=== PATIENT | female | born 1990 | race Caucasian/White ===

== ENCOUNTER 2024-07-10 15:19 | Emergency (ER) | payer BC, SELFPAY ==
[2024-07-10 15:22] VITALS: BP 138/78; PULSE 76; TEMP 36.6; O2SAT 100; BMI 26.5
[2024-07-10 16:13] LABS: Basophils Percent Auto 0.6 % (0.2-2.0); Eosinophils Absolute Auto 0.3 10^3/uL (0.0-0.7); Eosinophils Percent Auto 4.1 % (0.9-7.0); Hematocrit 37.6 % (36.0-48.0); Immature Granulocytes Abs Auto 0.01 10^3/uL (0.00-0.03); Immature Granulocytes Pct Auto 0.2 % (0.0-0.5); Lymphocytes Percent Auto 32.6 % (20.5-60.0); Mean Corpuscular HGB Conc 34.6 g/dL (29.9-35.2); Mean Corpuscular Hemoglobin 32.8 pg (26.7-34.0); Mean Corpuscular Volume 94.9 fL (81.0-99.0); Mean Platelet Volume 11.1 fL (9.5-13.5); Monocytes Absolute Auto 0.4 10^3/uL (0.3-0.8); Monocytes Percent Auto 7.1 % (1.7-12.0); Neutrophils Absolute Auto 3.4 10^3/uL (1.4-6.5); Neutrophils Percent Auto 55.4 % (43.0-75.0); Platelet Count 210 10^3/uL (150-450); Red Blood Count 3.96 10^6/uL (4.20-5.40); Red Cell Distribution Width 12.1 % (11.0-15.0); White Blood Count 6.2 10^3/uL (4.0-11.0)
[2024-07-10 16:23] LABS: Internal Control Within Normal Limits; Occult Blood Negative
[2024-07-10 16:34] LABS: INR 1.08; Partial Thromboplastin Time 35.5 sec (22.3-36.2); Prothrombin Time 11.4 sec (9.0-11.6)
[2024-07-10 16:39] LABS: Alanine Aminotransferase 9 U/L (14-59); Albumin Level 3.6 g/dL (3.4-5.0); Alkaline Phosphatase 35 U/L (46-116); Anion Gap 13.8; Aspartate Amino Transferase 6 U/L (15-37); BUN Creatinine Ratio 21.5; Bilirubin Total 0.3 mg/dL (0.2-1.0); Calcium 9.2 mg/dL (8.5-10.1); Carbon Dioxide 26.3 mmol/L (21.0-32.0); Chloride 104 mmol/L (98-107); Estimated GFR (African America >60 (>=60 mL/min/1.73m^2); Estimated GFR (Non-African Ame >60 (>=60 mL/min/1.73m^2); Globulin 3.7 g/dL; Glucose 92 mg/dL (74-106); Potassium 4.1 mmol/L (3.5-5.1); Sodium 140 mmol/L (136-145); Total Protein 7.3 g/dL (6.4-8.2)
--- NOTE | 2024-07-10 18:08 | ED.GENADUL1 ---
HPI HPI - General Adult General Chief complaint: GI Bleed Stated complaint: Blood In urine Time Seen by Provider: 07/10/24 15:22 Source: patient Mode of arrival: walk-in History of Present Illness HPI narrative: This 33-year-old female patient presents to the emergency department with chief complaint of bright red bleeding per rectum which is usually accompanied with some anal pain. This has been going on off and on for the last couple of weeks and she experienced it again today. She denies lightheadedness or dizziness. Occasionally she has had some lower abdominal cramping. She does not report night sweats or weight loss. Denies any possibility of . Related Data Home Medications ?Medication ?Instructions ?Recorded ?Confirmed omeprazole 20 mg capsule,delayed 20 mg PO Q8H 07/10/24 07/10/24 release Allergies Allergy/AdvReac Type Severity Reaction Status Date / Time No Known Drug Allergies Allergy Verified 07/10/24 15:22 Opioid HPI Opioid Management Most Recent Opioid Data: No Data to Display Review of Systems ROS Status of ROS 10 or more systems reviewed and unremarkable except as noted in history and below PFSH PFSH Social History Little interest or pleasure in doing things: not at all Feeling down, depressed, or hopeless: not at all Exam Narrative Exam Narrative: Awake and alert, nondistressed and with stable vital signs. She is not tachycardic or hypotensive. HEENT exam is normal to inspection and there is no conjunctival pallor. Neck is supple. Lung sounds are clear to auscultation bilaterally with good air entry. Heart has regular rate and rhythm. Abdomen is soft nontender. Bowel sounds are hypoactive and there is no organomegaly. Extremities warm and dry and she does not have unilateral leg swelling or calf tenderness. Rectal exam does not reveal any external lesions. Digital examination reveals some tenderness over the posterior aspect of the anal verge but no lumps of bumps were felt and a small amount of tinged mucus was obtained which is reported heme-negative. Constitutional Vital Signs, click to edit/add: Last Vital Signs Temp 97.8 F 07/10/24 15:22 Pulse 76 07/10/24 15:22 Resp 18 07/10/24 15:22 BP 138/78 07/10/24 15:22 Pulse Ox 100 07/10/24 15:22 O2 Del Method Room Air 07/10/24 15:22 Course Course Hospital Course: Presents with a history of hematochezia but his stool is heme-negative today and she is hemodynamically stable with a normal hemoglobin. She is referred to outpatient surgery follow-up for possible colonoscopy for further workup and is advised to return anytime for worsening symptoms. Vital Signs Vital signs: Vital Signs Temperature 97.8 F 07/10/24 15:22 Pulse Rate 76 07/10/24 15:22 Respiratory Rate 18 07/10/24 15:22 Blood Pressure 138/78 07/10/24 15:22 Pulse Oximetry 100 07/10/24 15:22 Oxygen Delivery Method Room Air 07/10/24 15:22 Temperature 97.8 F 07/10/24 15:22 Pulse Rate 76 07/10/24 15:22 Respiratory Rate 18 07/10/24 15:22 Blood Pressure 138/78 07/10/24 15:22 Pulse Oximetry 100 07/10/24 15:22 Oxygen Delivery Method Room Air 07/10/24 15:22 Medical Decision Making MDM Narrative Medical decision making narrative: Presents with a history of GI bleed but is hemodynamically stable at this time. Differential Diagnosis Differential Diagnosis: Colitis, diverticulitis, bleeding hemorrhoids Lab Data Lab results reviewed: Yes I reviewed the patient's lab results Labs: Lab Results 07/10/24 07/10/24 Range/Units 15:47 16:00 WBC 6.2 (4.0-11.0) 10^3/uL RBC 3.96 L (4.20-5.40) 10^6/uL Hgb 13.0 (12.0-16.0) g/dL Hct 37.6 (36.0-48.0) % MCV 94.9 (81.0-99.0) fL MCH 32.8 (26.7-34.0) pg MCHC 34.6 (29.9-35.2) g/dL RDW 12.1 (11.0-15.0) % Plt Count 210 (150-450) 10^3/uL MPV 11.1 (9.5-13.5) fL Neut % (Auto) 55.4 (43.0-75.0) % Lymph % (Auto) 32.6 (20.5-60.0) % [place] % (Auto) 7.1 (1.7-12.0) % Eos % (Auto) 4.1 (0.9-7.0) % Baso % (Auto) 0.6 (0.2-2.0) % Neut # (Auto) 3.4 (1.4-6.5) 10^3/uL Lymph # (Auto) 2.0 (1.2-3.8) 10^3/uL [place] # (Auto) 0.4 (0.3-0.8) 10^3/uL Eos # (Auto) 0.3 (0.0-0.7) 10^3/uL Baso # (Auto) 0.0 (0.0-0.1) 10^3/uL Abs Immat Gran (auto) 0.01 (0.00-0.03) 10^3/uL Imm/Tot Granulo (auto) 0.2 (0.0-0.5) % PT 11.4 (9.0-11.6) sec INR 1.08 APTT 35.5 (22.3-36.2) sec Sodium 140 (136-145) mmol/L Potassium 4.1 (3.5-5.1) mmol/L Chloride 104 (98-107) mmol/L Carbon Dioxide 26.3 (21.0-32.0) mmol/L Anion Gap 13.8 BUN 17.0 (7.0-18.0) mg/dL Creatinine 0.79 (0.55-1.02) mg/dL Est GFR ( Amer) >60 (>=60 mL/min/1.73m^2) Est GFR (Non-Af Amer) >60 (>=60 mL/min/1.73m^2) BUN/Creatinine Ratio 21.5 Glucose 92 (74-106) mg/dL Calcium 9.2 (8.5-10.1) mg/dL Total Bilirubin 0.3 (0.2-1.0) mg/dL AST 6 L (15-37) U/L ALT 9 L (14-59) U/L Alkaline Phosphatase 35 L (46-116) U/L Total Protein 7.3 (6.4-8.2) g/dL Albumin 3.6 (3.4-5.0) g/dL Globulin 3.7 g/dL Albumin/Globulin Ratio 1.0 Stool Occult Blood Negative Discharge Plan Discharge Chief Complaint: GI Bleed Clinical Impression: Hematochezia Patient Disposition: Home, Self-Care Time of Disposition Decision: 17:14 Condition: Good Mode of Transportation: Private Vehicle Prescriptions / Home Meds: No Action omeprazole 20 mg capsule,delayed release(DR/EC) 20 mg PO Q8H Print Language: Tamazight Instructions: Rectal Bleeding (ED) Additional Instructions: Follow-up with general surgeon for possible colonoscopy. Return for worsening symptoms. Referrals: Grover Garner DO [Physician] - 1 week Joseph Whaley MD [Physician] - 1 week Physician,Non-MD [place] [Primary Care Provider] - 1 week Discharge Date/Time: 07/10/24 17:38
--- NOTE | 2024-07-10 18:21 | ED.GENADUL1 ---
HPI HPI - General Adult General Chief complaint: GI Bleed Stated complaint: Blood In urine Time Seen by Provider: 07/10/24 15:22 Source: patient Mode of arrival: walk-in Related Data Home Medications ?Medication ?Instructions ?Recorded ?Confirmed omeprazole 20 mg capsule,delayed 20 mg PO Q8H 07/10/24 07/10/24 release Allergies Allergy/AdvReac Type Severity Reaction Status Date / Time No Known Drug Allergies Allergy Verified 07/10/24 15:22 Opioid HPI Opioid Management Most Recent Opioid Data: No Data to Display PFSH PFSH Social History Little interest or pleasure in doing things: not at all Feeling down, depressed, or hopeless: not at all Exam Constitutional Vital Signs, click to edit/add: Last Vital Signs Temp 97.8 F 07/10/24 15:22 Pulse 76 07/10/24 15:22 Resp 18 07/10/24 15:22 BP 138/78 07/10/24 15:22 Pulse Ox 100 07/10/24 15:22 O2 Del Method Room Air 07/10/24 15:22 Course Course Hospital Course: Presents with a history of hematochezia but his stool is heme-negative today and she is hemodynamically stable with a normal hemoglobin. She is referred to outpatient surgery follow-up for possible colonoscopy for further workup and is advised to return anytime for worsening symptoms. Vital Signs Vital signs: Vital Signs Temperature 97.8 F 07/10/24 15:22 Pulse Rate 76 07/10/24 15:22 Respiratory Rate 18 07/10/24 15:22 Blood Pressure 138/78 07/10/24 15:22 Pulse Oximetry 100 07/10/24 15:22 Oxygen Delivery Method Room Air 07/10/24 15:22 Temperature 97.8 F 07/10/24 15:22 Pulse Rate 76 07/10/24 15:22 Respiratory Rate 18 07/10/24 15:22 Blood Pressure 138/78 07/10/24 15:22 Pulse Oximetry 100 07/10/24 15:22 Oxygen Delivery Method Room Air 07/10/24 15:22 Medical Decision Making Lab Data Labs: Lab Results 07/10/24 07/10/24 Range/Units 15:47 16:00 WBC 6.2 (4.0-11.0) 10^3/uL RBC 3.96 L (4.20-5.40) 10^6/uL Hgb 13.0 (12.0-16.0) g/dL Hct 37.6 (36.0-48.0) % MCV 94.9 (81.0-99.0) fL MCH 32.8 (26.7-34.0) pg MCHC 34.6 (29.9-35.2) g/dL RDW 12.1 (11.0-15.0) % Plt Count 210 (150-450) 10^3/uL MPV 11.1 (9.5-13.5) fL Neut % (Auto) 55.4 (43.0-75.0) % Lymph % (Auto) 32.6 (20.5-60.0) % [place] % (Auto) 7.1 (1.7-12.0) % Eos % (Auto) 4.1 (0.9-7.0) % Baso % (Auto) 0.6 (0.2-2.0) % Neut # (Auto) 3.4 (1.4-6.5) 10^3/uL Lymph # (Auto) 2.0 (1.2-3.8) 10^3/uL [place] # (Auto) 0.4 (0.3-0.8) 10^3/uL Eos # (Auto) 0.3 (0.0-0.7) 10^3/uL Baso # (Auto) 0.0 (0.0-0.1) 10^3/uL Abs Immat Gran (auto) 0.01 (0.00-0.03) 10^3/uL Imm/Tot Granulo (auto) 0.2 (0.0-0.5) % PT 11.4 (9.0-11.6) sec INR 1.08 APTT 35.5 (22.3-36.2) sec Sodium 140 (136-145) mmol/L Potassium 4.1 (3.5-5.1) mmol/L Chloride 104 (98-107) mmol/L Carbon Dioxide 26.3 (21.0-32.0) mmol/L Anion Gap 13.8 BUN 17.0 (7.0-18.0) mg/dL Creatinine 0.79 (0.55-1.02) mg/dL Est GFR ( Amer) >60 (>=60 mL/min/1.73m^2) Est GFR (Non-Af Amer) >60 (>=60 mL/min/1.73m^2) BUN/Creatinine Ratio 21.5 Glucose 92 (74-106) mg/dL Calcium 9.2 (8.5-10.1) mg/dL Total Bilirubin 0.3 (0.2-1.0) mg/dL AST 6 L (15-37) U/L ALT 9 L (14-59) U/L Alkaline Phosphatase 35 L (46-116) U/L Total Protein 7.3 (6.4-8.2) g/dL Albumin 3.6 (3.4-5.0) g/dL Globulin 3.7 g/dL Albumin/Globulin Ratio 1.0 Stool Occult Blood Negative Discharge Plan Discharge Chief Complaint: GI Bleed Clinical Impression: Hematochezia Patient Disposition: Home, Self-Care Time of Disposition Decision: 17:14 Condition: Good Mode of Transportation: Private Vehicle Prescriptions / Home Meds: No Action omeprazole 20 mg capsule,delayed release(DR/EC) 20 mg PO Q8H Print Language: [place] Instructions: Rectal Bleeding (ED) Additional Instructions: Follow-up with general surgeon for possible colonoscopy. Return for worsening symptoms. Referrals: Grover Garner DO [Physician] - 1 week Joseph Whaley MD [Physician] - 1 week PhysicianRosangela-MD Cortez [Primary Care Provider] - 1 week Discharge Date/Time: 07/10/24 17:38
== END 2024-07-10 17:38 | disposition home or self-care (01) ==
PROVIDERS: Emergency Provider Emergency Medicine
DX: K92.1 Melena (principal); R10.30 Lower abdominal pain, unspecified
CPT/HCPCS: 36415; 80053; 84703; 85025; 85610; 85730; 99285; G0328

== ENCOUNTER 2024-10-19 15:36 | Outpatient (OUT) | payer BC, SELFPAY ==
[2024-10-19 16:14] LABS: Basophils Percent Auto 0.4 % (0.2-2.0); Eosinophils Absolute Auto 0.1 10^3/uL (0.0-0.7); Eosinophils Percent Auto 1.2 % (0.9-7.0); Hematocrit 33.7 % (36.0-48.0); Hemoglobin 11.9 g/dL (12.0-16.0); Immature Granulocytes Abs Auto 0.02 10^3/uL (0.00-0.03); Immature Granulocytes Pct Auto 0.2 % (0.0-0.5); Lymphocytes Absolute Auto 2.2 10^3/uL (1.2-3.8); Lymphocytes Percent Auto 27.2 % (20.5-60.0); Mean Corpuscular HGB Conc 35.3 g/dL (29.9-35.2); Mean Corpuscular Hemoglobin 33.5 pg (26.7-34.0); Mean Corpuscular Volume 94.9 fL (81.0-99.0); Mean Platelet Volume 11.2 fL (9.5-13.5); Monocytes Absolute Auto 0.4 10^3/uL (0.3-0.8); Monocytes Percent Auto 4.9 % (1.7-12.0); Neutrophils Absolute Auto 5.4 10^3/uL (1.4-6.5); Neutrophils Percent Auto 66.1 % (43.0-75.0); Platelet Count 169 10^3/uL (150-450); Red Blood Count 3.55 10^6/uL (4.20-5.40); Red Cell Distribution Width 12.4 % (11.0-15.0); White Blood Count 8.2 10^3/uL (4.0-11.0)
[2024-10-19 16:24] LABS: BOX Test Reference Lab UNITY; BOX Test Sent Out UNITY
[2024-10-19 16:31] LABS: Estimated Average Glucose 100 mg/dL; Glycohemoglobin A1C 5.1 % (4.5-6.2)
[2024-10-19 16:33] LABS: Amphetamine Screen Urine NEGATIVE (NEGATIVE); Barbiturates Screen Urine NEGATIVE (NEGATIVE); Benzodiazepines Screen Urine NEGATIVE (NEGATIVE); Buprenorphine Screen Urine NEGATIVE (NEGATIVE); Cannabinoid Screen Urine NEGATIVE (NEGATIVE); Cocaine Screen Urine NEGATIVE (NEGATIVE); Methadone Screen Urine NEGATIVE (NEGATIVE); Methamphetamines Screen Urine NEGATIVE (NEGATIVE); Opiate Screen Urine NEGATIVE (NEGATIVE); Oxycodone Screen Urine NEGATIVE (NEGATIVE); Phencyclidine Screen Urine NEGATIVE (NEGATIVE); Tricyclic Antidepressant Urine NEGATIVE (NEGATIVE)
[2024-10-21 08:10] LABS: HBsAg Screen Negative (Negative)
[2024-10-21 09:08] LABS: HCV Ab Non Reactive (Non Reactive)
[2024-10-21 11:07] LABS: Rapid Plasma Reagin, Quant Non Reactive titer (NonRea<1:1)
[2024-10-21 12:07] LABS: HIV Ab/p24 Ag Screen Non Reactive (Non Reactive)
== END 2024-10-19 15:37 | disposition home or self-care (01) ==
LOC: LAB 15:38
PROVIDERS: Visit Provider Obstetrics & Gynecology
DX: Z34.01 Encounter for supervision of normal first pregnancy, first trimester (principal); Z36.0 Encounter for antenatal screening for chromosomal anomalies; N92.6 Irregular menstruation, unspecified
CPT/HCPCS: 36415; 80307; 83036; 85025; 86592; 86762; 86803; 86850; 86900; 86901; 87086; 87340; 87389

== ENCOUNTER 2024-12-10 12:18 | Outpatient (REF) | payer BC, SELFPAY ==
[2024-12-12 15:08] LABS: Age Gdln ACOG Testing Note (.); HPV Aptima Negative (Negative); IGP, Aptima HPV, rfx 16/18,45 Note (.)
== END 2024-12-10 12:19 | disposition home or self-care (01) ==
LOC: LAB 12:18
PROVIDERS: Visit Provider Physician Assistant
DX: Z01.419 Encounter for gynecological examination (general) (routine) without abnormal findings (principal)
CPT/HCPCS: 87624; 88175

== ENCOUNTER 2024-12-31 15:15 | Outpatient (OUT) | payer BC, SELFPAY ==
--- OUTSIDE RECORDS SUMMARY | 2024-12-31 15:50 | XMS_ITS | CCD ---
Author Organization [facility] Care Team Providers Care Air Export Operations Agent Name Role Phone Unavailable Primary Care Provider UnavailDasha Kern MD Primary Care Provider MD Dasha Lujan Primary Care Provider BRETT Breaux Attending Provider Reena Breaux Admitting Unavailable Reena Breaux Attending Unavailable Tai Sunir C Primary Care Unavailable Reena Breaux Admitting Unavailable Reena Breaux Attending Unavailable Lujan Sunir C Primary Care Unavailable Dasha Lujan MD Primary Care Provider Dasha Lujan MD Primary Care Provider BERENICE ZEPEDA Attending Unavailable LUJAN, SUNIR C Primary Care Unavailable LUJAN, SUNIR C Primary Care Unavailable BERENICE ZEPEDA Attending Unavailable BERENICE ZEPEDA Attending Unavailable LUJAN, SUNIR C Primary Care Unavailable BERENICE ZEPEDA Attending Unavailable LUJAN, SUNIR C Primary Care Unavailable LUJAN, SUNIR C Primary Care Unavailable Unallocated , Noms Provider Primary Care [facility] Edu Alvarez NP Unavailable SINA GARNER Attending Unavailable SINA GARNER Referring Unavailable EDU ALVAREZ Attending Unavailable ROSCOE DIAZ Attending Unavailable ROSY QUIROZ Attending Unavailable Medications Current Medications Medication Drug Class(es) Dates Sig (Normalized) Sig (Original) bisacodyl 5 mg delayed release oral tablet (2 sources) Stimulant Laxative Start: 07-25-2024 End: 07-25-2024 take 1 tablet by mouth once bisacodyl (Dulcolax) 5 MG EC tablet Indications: Rectal bleeding Take 1 tablet (5 mg) by mouth 1 time for 1 dose Do not crush, chew, or split. Take as detailed on clinic hand out for colonoscopy prep 4 tablet 07/25/2024 07/25/2024 Active omeprazole 20 mg delayed release oral capsule (19 sources) Proton Pump Inhibitor Start: 04-16-2022 Omeprazole Magnesium (ACID MARKETING COMMUNICATION MANAGER, OMEPRAZOLE,) 20 mg cpDR 04/16/2022 Active take 1 tablet by mouth before me altime omeprazole OTC (PriLOSEC OTC) 20 MG EC tablet Take 20 mg by mouth in the morning. Take before meals. Do not crush, chew, or split.. Active ondansetron 4 mg disintegrating oral tablet (5 sources) Serotonin-3 Receptor Antagonist Start: 10-18-2024 End: 11-17-2024 take 1 tablet by mouth every six hours for nausea ondansetron ODT (Zofran-ODT) 4 MG disintegrating tablet Indications: Nausea and vomiting in Take 1 tablet (4 mg) by mouth every 6 (six) hours if needed for nausea or vomiting 30 tablet 2 10/18/2024 11/17/2024 Active phentermine hydrochloride 37.5 mg oral tablet (3 sources) Sympathomimetic Amine Anorectic Start: 06-29-2024 End: 07-29-2024 take 1 tablet by mouth once daily Phentermine HCl 37.5 mg tablet Indications: Encounter for weight management , Overweight Take 1 tablet by mouth once daily for 30 days. BMI 29.58kg/m2 30 tablet 06/29/2024 07/29/2024 Active Start: 09-23-2023 End: 10-23-2023 take 1 tablet by mouth once daily Phentermine HCl 37.5 mg tablet Indications: Encounter for weight management , Overweight (BMI 25.0-29.9) Take 1 tablet by mouth once daily for 30 days. BMI 29.76 30 tablet 0 09/23/2023 10/23/2023 Active Start: 07-21-2023 End: 08-20-2023 take 30-30.9 tablets by mouth once daily Phentermine HCl 37.5 mg tablet Indications: Encounter for weight management , Class 1 obesity due to excess calories with body mass index (BMI) of 30.0 to 30.9 in adult, unspecified whether serious comorbidity present Take 1 tablet by mouth once daily for 30 days. BMI 30.81kg/m2 30 tablet 0 07/21/2023 08/20/2023 Active Comment on above: Take 1 tablet by lucy th once daily for 30 days. BMI 30.81kg/m2 Take 1 tablet by lucy th once daily for 30 days. BMI 29.76 polyethylene glycol 3350 45357 mg powder for oral solution (2 sources) Osmotic Laxative Start: End: 4 take 17 g by mouth once polyethylene glycol, PEG, 3350 (Glycolax) 17 GM/SCOOP powder Indications: Colonoscopy Take 238 g by mouth 1 (one) time for 1 dose Take as detailed from clinic hand out for colonoscopy prep 238 g 07/25/2024 07/25/2024 Active Vit-Fe Fumarate-FA ( 19) 29-1 MG chewable tablet (8 sources) Start: 5 Vit-Fe Fumarate-FA ( 19) 29-1 MG chewable tablet Indications: , unspecified gestational age Chew 1 each Daily 30 tablet 11 10/23/2024 Active valACYclovir 1000 mg oral tablet (2 sources) Herpesvirus Nucleoside Analog DNA Polymerase Inhibitor, Herpes Simplex Virus Nucleoside Analog DNA Polymerase Inhibitor, Herpes Zoster Virus Nucleoside Analog DNA Polymerase Inhibitor Start: End: 4 take 1 tablet by mouth twice daily valACYclovir (VALTREX) 1 gram tablet Take 1 tablet by mouth two times a day for 8 days. 4 tablet 3 03/07/2024 03/15/2024 Active Start: 06-29-2023 End: 07-01-2023 valACYclovir (VALTREX) 1 gra m Take 1 tablet by mouth two times a day for 2 days. for 7 days 4 tablet 1 06/29/2023 07/01/2023 Active Comment on above: Take 1 tablet by lucy th two times a day for 2 days. for 7 days Completed/Discontinued Medications Medication Drug Class(es) Dates Sig (Normalized) Sig (Original) azithromycin 250 mg oral tablet (3 sources) Macrolide Antimicrobial Start: 08-02-2024 End: 10-18-2024 azithromycin (Zithromax) 250 MG tablet Indications: Acute cough , Chest congestion , Bronchitis Take 1 tablet (250 mg) by mouth Daily Take 2 tabs on day 1 and 1 tab on days 2-5 then stop 6 tablet 08/02/2024 10/18/2024 Discontinued (Other) multivitamin () 27-0.8 MG tablet (3 sources) Start: 10-17-2023 End: 07-25-2024 take 1 tablet by mouth once daily multivitamin () 27-0.8 MG tablet Indications: Encounter for supervision of normal first in first trimester Take 1 tablet by mouth Daily 30 tablet 11 10/17/2023 07/25/2024 Discontinued (Therapy completed) Start: 10-17-2023 End: 10-16-2024 take 1 tablet by mouth once daily multivitamin () 27-0.8 MG tablet Indications: Encounter for supervision of normal first in first trimester Take 1 tablet by mouth Daily 30 tablet 11 10/17/2023 10/16/2024 Active Problems Active Problems Problem Classification Problem Date Documented Da te Episodic/Chronic Chronic obstructive pulmonary disease and bronchiectasis (2 sources) Bronchitis; Translations: [Bronchitis, not specified as acute or chronic] 08-02-2024 Episodic Diabetes mellitus without complication (2 sources) Hyperglycemia; Translations: [Hyperglycemia, unspecified] Episodic Fluid and electrolyte disorders (1 source) Hyperkalemia; Translations: [Hyperkalemia] Episodic Gastrointestinal hemorrhage (2 sources) Rectal hemorrhage; Translations: [Hemorrhage of anus and rectum] 07-25-2024 Episodic Immunizations and screening for infectious disease (8 sources) Patient encounter status; Translations: [Encounter for immunization] 07-21-2023 Episodic Menstrual disorders (1 source) Missed period; Translations: [Irregular menstruation, unspecified] 10-18-2024 Chronic Other circulatory disease (2 sources) Pulmonary congestion ; Translations: [Other specified symptoms and signs involving the circulatory and respiratory systems] 08-02-2024 Episodic Other complications of (1 source) Vomiting of , unspecified; Translations: [Unspecified vomiting of , unspecified as to episode of care or not applicable] 10-18-2024 Episodic Other liver diseases (1 source) Steatosis of liver; Translations: [Fatty (change of) liver, not elsewhere classified] Chronic Other lower respiratory disease (2 sources) Cough; Translations: [Acute cough] 08-02-2024 Episodic Other nutritional; endocrine; and metabolic disorders (1 source) Body mass index 30+ - obesity; Translations: [Obesity, unspecified] Chronic Other nutritional; endocrine; and metabolic disorders (1 source) Obesity caused by energy imbalance; Translations: [Other obesity due to excess calories] 07-21-2023 Chronic Other nutritional; endocrine; and metabolic disorders (1 source) Body mass index 25-29 - overweight; Translations: [Overweight] 09-23-2023 Episodic Other nutritional; endocrine; and metabolic disorders (1 source) Overweight; Translations: [Overweight] 06-29-2024 Episodic Other and delivery including normal (4 sources) ; Translations: [Encounter for supervision of normal , unspecified, unspecified trimester] 10-18-2024 Episodic Other screening for suspected conditions (not mental disorders or infectious disease) (2 sources) Alpha-fetoprotein blood test status; Translations: [Encounter for screening for raised alphafetoprotein level] 12-10-2024 Episodic Residual codes; unclassified (1 source) Edema, unspecified; Translations: [Edema, unspecified] Onset: Episodic Residual codes; unclassified (2 sources) Gestation period, 12 weeks; Translations: [12 weeks gestation of ] 11-08-2024 Episodic Residual codes; unclassified (2 sources) Gestation period, 17 weeks; Translations: [17 weeks gestation of ] 12-10-2024 Episodic Unclassified (8 sources) OB Reminders Onset: 5 10-19-2024 Past or Other Problems Problem Classification Problem Date Documented Da te Episodic/Chronic Administrative/social admission (1 source) Persons encountering health services in other specified circumstances; Translations: [Encounter for weight management] Onset: 09-23-2023 Episodic Other gastrointestinal disorders (1 source) Bariatric surgery status; Translations: [Bariatric surgery status] Onset: 06-10-2022 Episodic Other nutritional; endocrine; and metabolic disorders (1 source) Overweight; Translations: [Overweight (BMI 25.0-29.9)] Onset: 09-23-2023 Episodic Results Test Name Value Interpretation Reference Range Facility IGP,APTIMA HPV,AGE GDLNon AGE GDLN ACOG TESTING Note . [facility] Comment on above: TESTS RESULT FLAG U NITS REF RANGE LAB Clinician Provided Cytology Information Source.............[facility] Other.............. No. of containers..01 ThinPrep Vial Age Kavithao WINTER Enedina... 3065 01 FLAG LEGEND: L-Low Normal,H-High Normal,LL-Alert Low,HH-Alert High <-Panic Low,>-Panic High,A-Abnormal,AA-Critical Abnormal Performed at: 01 =G [address] [place] [address] Rossy Odonnell MD, HPV APTIMA Negative Negative [facility] Comment on above: This nucleic acid am plification test detects fourteen high- risk HPV types (16,18,31,33,35,39,45,51,52,56,58,59,66,68) without differentiation. Performed at: =[address] [id number] Embedded Systems Software Engineer: Rossy Odonnell MD, Phone: [phone] Performed at: [address] [id number] Embedded Systems Software Engineer: Rossy Odonnell MD, Phone: [phone] IGP, APTIMA HPV, RFX 16/18,45 Note . [facility] Comment on above: TESTS RESULT FLAG UN ITS REF RANGE LAB DIAGNOSIS: 02 NEGATIVE FOR INTRAEPITHELIAL LESION OR MALIGNANCY. Specimen adequacy: 02 Satisfactory for evaluation. No endocervical component is identified. An endocervical component is not commonly seen in the patient. Performed by: 02 Cadence Lucero Machine Farmworker ([facility]) . 02 Note: Note 02 The Pap smear is a screening test designed to aid in the detection of premalignant and malignant conditions of the uterine cervix. It is not a diagnostic procedure and should not be used as the sole means of detecting cervical cancer. Both false-positive and false-negative reports do occur. Test Methodology: Note 02 This liquid based ThinPrep(R) pap test was screened with the use of an image guided system. HPV Genotype Reflex Note 02 Criteria not met, HPV Genotype not performed. FLAG LEGEND: L-Low Normal,H-High Normal,LL-Alert Low,HH-Alert High <-Panic Low,>-Panic High,A-Abnormal,AA-Critical Abnormal Performed at: [address] [id number] Rossy Odonnell MD, SPATULA-ALONE ENDOCERVIX [facility] RECURRENT VAGINITIS (HTRX)on 12-11-2024 ATOPOBIUM VAGINAE 0 [facility] ATOPOBIUM VAGINAE Not detected [facility] BVAB 2,3 (BACTERIAL VAGINOSIS ASSOCIATED BACTERIA 2, 3); MOBILUNCUS SPP 0 [facility] BVAB 2,3 (BACTERIAL VAGINOSIS ASSOCIATED BACTERIA 2, 3); MOBILUNCUS SPP Not detected [facility] HAMILTON ALBICANS, PARAPSILOSIS, TROPICALIS 0 [facility] HAMILTON ALBICANS, PARAPSILOSIS, TROPICALIS Not detected [facility] HAMILTON GLABRATA 0 [facility] HAMILTON GLABRATA Not detected [facility] HAMILTON KRUSEI 0 [facility] HAMILTON KRUSEI Not detected [facility] CHLAMYDIA TRACHOMATIS 0 [facility] CHLAMYDIA TRACHOMATIS Not detected N [facility] GARDNERELLA VAGINALIS 0 [facility] GARDNERELLA VAGINALIS Not detected N [facility] MEGASPHAERA (TYPES 1, 2) 0 [facility] MEGASPHAERA (TYPES 1, 2) Not detected [facility] MYCOPLASMA GENITALIUM 0 [facility] MYCOPLASMA GENITALIUM Not detected N [facility] NEISSERIA GONORRHOEAE 0 [facility] NEISSERIA GONORRHOEAE Not detected N [facility] TRICHOMONAS VAGINALIS 0 [facility] TRICHOMONAS VAGINALIS Not detected N [facility] Urinalysis macro (dipstick) panel (U)on 12-10-2024 Bilirubin, UA Negative Negative - 4(70) +++ mg/dL [facility] Blood, UA Negative Negative - 50 Iraj/mcL [facility] Clarity, UA Clear [facility] Color, UA Yellow [facility] Glucose, UA Negative Negative - 1999(110) ++++ mg/dL [facility] Interpretation and review of laboratory results Normal [facility] Ketones, UA Negative Negative - 160(16) ++++ mg/dL [facility] Leukocytes, UA Trace Negative - 500+++ Mari/mcL [facility] Nitrite, UA Negative Negative - Positive [facility] pH, UA 6 5 - 9 [facility] Protein, UA Negative Negative - 1999(20) ++++ mg/dL [facility] Spec Grav, UA 1.01 1 - 1.03 [facility] Urobilinogen, UA 0.2 0.2 - 12 mg/dL [facility] Urinalysis macro (dipstick) panel (U)on 11-08-2024 Bilirubin, UA Negative Negative - 4(70) +++ mg/dL [facility] Blood, UA Negative Negative - 50 Iraj/mcL [facility] Clarity, UA Clear [facility] Color, UA Yellow [facility] Glucose, UA Negative Negative - 1999(110) ++++ mg/dL [facility] Interpretation and review of laboratory results Normal [facility] Ketones, UA Negative Negative - 160(16) ++++ mg/dL [facility] Leukocytes, UA Negative Negative - 500+++ Mari/mcL [facility] Nitrite, UA Negative Negative - Positive [facility] pH, UA 6 5 - 9 [facility] Protein, UA Negative Negative - 2000(20) ++++ mg/dL [facility] Spec Grav, UA 1.015 1 - 1.03 [facility] Urobilinogen, UA 0.2 0.2 - 12 mg/dL [facility] ALL CBC WITH AUTO DIFFon BASOPHILS ABSOLUTE AUTO 0 N [facility] Basophils/100 WBC (Bld) 0.4 % 0.2 - 2.0 % [facility] Eosinophils/100 WBC (Bld) 1.2 % 0.9 - 7.0 % [facility] Erythrocyte distribution width (RBC) [Ratio] 12.4 % 11.0 - 15.0 % [facility] Hematocrit (Bld) [Volume fraction] 33.7 % Low 36.0 - 48.0 % [facility] Hemoglobin (Bld) [Mass/Vol] 11.9 g/dL Low 12.0 - 16.0 g/dL [facility] IMMATURE GRANULOCYTES ABS AUTO 0.02 [facility] Immature granulocytes/100 WBC (Bld) 0.2 % 0.0 - 0.5 % [facility] Interpretation and review of laboratory results Abnormal [facility] LYMPHOCYTES ABSOLUTE AUTO 2.2 [facility] Lymphocytes/100 WBC (Bld) 27.2 % 20.5 - 60.0 % [facility] MCH (RBC) [Entitic mass] 33.5 pg 26. 7 - 34.0 pg [facility] MCHC (RBC) [Mass/Vol] 35.3 g/dL High 29.9 - 35.2 g/dL [facility] MCV (RBC) [Entitic vol] 94.9 fL 81.0 - 99.0 fL [facility] MONOCYTES ABSOLUTE AUTO 0.4 N [facility] Monocytes/100 WBC (Bld) 4.9 % 1.7 - 12.0 % [facility] NEUTROPHILS ABSOLUTE AUTO 5.4 [facility] Neutrophils/100 WBC (Bld) 66.1 % 43.0 - 75.0 % [facility] Platelet mean volume (Bld) [Entitic vol] 11.2 fL 9.5 - 13.5 fL [facility] TBH EO # 0.1 [facility] PLT 169 [facility] RBC 3.55 Low [facility] WBC 8.2 [facility] HCG ( test) Ql (U)o n 10-18-2024 Interpretation and review of laboratory results Abnormal [facility] Preg Test, Ur Positive Negative [facility] US OB TRANSVAGINALon 025 US OB TRANSVAGINAL EXAM: US OB TRANSVAGINAL HISTORY: Dating. COMPARISON: None available. TECHNIQUE: Two-dimensional transabdominal grayscale ultrasound imaging of the pelvis was performed. Color Doppler evaluation of the ovaries was also performed. FINDINGS: The uterus demonstrates a normal homogeneous echotexture. The cervix measures 4.2 cm and the cervical os is closed. The right ovary is not visualized due to overlying bowel gas. The left ovary measures 2.8 x 1.5 x 2.4 cm and demonstrates a normal echotexture. There is normal color Doppler flow. No fluid is present within the cul-de-sac. There is a single, live intrauterine gestation identified with a heart rate of 175 beats per minute and a crown-rump length measurement of 3.1 cm, correlating to a gestational age of 10 weeks 0 days (+/- 6 days). There is a small subchorionic hemorrhage visualized. A yolk sac is visualized. IMPRESSION: 1. Single, live intrauterine gestation 9 weeks, 4 days by LMP. Today's ultrasound measurements correlate with a gestational age of 10 weeks 0 days (+/- 6 days). VALENTIN by today's ultrasound is 05/16/2025. 2. Normal color Doppler evaluation of the left ovary, the right ovary was not visualized. Electronically Signed:Electronical ly signed by BRITTANY FERREIRA II, MD, PHD at 20-Oct-2024 07:21:51 AM [facility] Normal Not Available Comment on above: Order Comment: US OB TRANSVAGINAL No LMP recorded. Urinalysis macro (dipstick) panel (U)on 10-18-2024 Bilirubin, UA Negative Negative - 4(70) +++ mg/dL [facility] Blood, UA Negative Negative - 50 Iraj/mcL [facility] Clarity, UA Clear [facility] Color, UA Yellow [facility] Glucose, UA Negative Negative - 2000(110) ++++ mg/dL [facility] Interpretation and review of laboratory results Normal [facility] Ketones, UA Negative Negative - 160(16) ++++ mg/dL [facility] Leukocytes, UA Negative Negative - 500+++ Mari/mcL [facility] Nitrite, UA Negative Negative - Positive [facility] pH, UA 6 5 - 9 [facility] Protein, UA Negative Negative - 2000(20) ++++ mg/dL [facility] Spec Grav, UA 1.01 1 - 1.03 [facility] Urobilinogen, UA 1.0 0.2 - 12 mg/dL [facility] CNOVon 06-29-2024 CNOV Office Visit (INMAVN) ---- CARYL ZAMARRIPA ([id number]) 1990 F Date Time Provider Department 06/29/24 12:40 PM [facility] visit today, we recorded the following information about you: Pulse Blood pressure Weight 65/minute 101/68 75.8 kg Berenice Zepeda APRN.[facility] 06/29/2024 1:25 PM Signed Caryl Zamarripa is a 33 year old female here today for follow-up regarding weight management. She would like to get back on phentermine Has tolerated well in the past Denies chest pain/pressure, palpitations, constipation Working on healthy lifestyle New job is less stressful but more sedentary Exercise: treadmill 4 days per week, some strength training 1-2 days per week Diet: Focus on more protein, lower carbs Last 10 Encounter Wt Readings: Date: Wt: 06/29/2024 75.8 kg (167 lb) 09/23/2023 76.2 kg (168 lb) 08/23/2023 77.6 kg (171 lb) 07/21/2023 80.1 kg (176 lb 8 oz) 07/06/2022 81.6 kg (180 lb) 01/15/2022 104.3 kg (230 lb) Body mass index is 29.58 kg/m?. PAST MEDICAL HISTORY Diagnosis Date GERD (gastroesophageal reflux disease) Prediabetes REVIEW OF SYSTEMS GENERAL: No weight loss, malaise or fevers RESPIRATORY: Negative for cough, hemoptysis, wheezing, COPD, dyspnea or shortness of breath CARDIOVASCULAR: Negative for chest pain, leg swelling, hypertension, CHF or palpitations PHYSICAL EXAMINATION: BP 101/68 (BP Site: Left Arm, BP Position: Sitting, BP Cuff Size: Large Adult) Pulse 65 Wt 75.8 kg (167 lb) LMP 08/08/2023 (Approximate) BMI 29.58 kg/m? General appearance: Well appearing, alert, in no acute distress, well-hydrated, well nourished. Lungs: Lungs clear to auscultation. No wheezing, rhonchi, rales. Heart: RRR without murmur, gallop, or rubs. No ectopy ASSESSMENT/PLAN: 1. Encounter for weight management - ICD9: V65.49, ICD10: Z76.89 (primary diagnosis) 2. Overweight - ICD9: 278.02, ICD10: E66.3 - Weight trending down - Continue working on healthy lifestyle - Denies chance of . Start phentermine. RTC in one month. CPE within the next 3 months. - PHENTERMINE 37.5 MG TABLET Berenice Zepeda APRN.[facility] Allergies As of Date: 06/29/2024 (No Known Allergies) Date Reviewed: 06/29/2024 Reviewed by: Goldie Peter MA - Fully Assessed Reason for Visit: Follow Up [171] Primary Visit Diagnosis:Encounter for weight management [Z76.89] Other Visit Diagnosis:Overweigh t [E66.3] Order(s):Phentermin e HCl 37.5 mg tabletTake 1 tablet by mouth once daily for 30 days. BMI 29.58kg/m2Disp: 30 tabletRfl: 0 Prescriptions as of 06/29/2024 - Phentermine HCl 37.5 mg tablet Take 1 tablet by mouth once daily for 30 days. BMI 29.58kg/m2 - Omeprazole Magnesium (ACID MARKETING COMMUNICATION MANAGER, OMEPRAZOLE,) 20 mg cpDR Problem List As Of Date: 06/29/2024 (None) Prescriptions ordered this encounter Disp Refills Start End PHENTERMINE 37.5 MG TABLET 30 t* 0 06/29/2024 07/29/2024 Route: ORAL Sig: Take 1 tablet by mouth once daily for 30 days. BMI 29.58kg/m2 Encounter Status:Closed by BERENICE ZEPEDA on 06/29/24 [facility] CNOVon 08-23-2023 CNOV Office Visit (INMAVN) ---- CARYL ZAMARRIPA ([id number]) 1990 F Date Time Provider Department 08/23/23 4:00 PM [facility] During your visit today, we recorded the following information about you: Pulse Blood pressure Weight Last Period 54/minute 121/77 77.6 kg 08/08/23 Berenice Zepeda, FIELD ARTILLERY OPERATIONS SPECIALIST.[facility] 08/25/2023 12:23 PM Signed Caryl Obrienkins is a 32 year old female here today for weight management. She started on phentermine one month(s) ago. Tolerating well without AE. Going to the gym for exercise and working to maintain a healthy diet. Last 6 Encounter Wt Readings: Date: Wt: 08/23/2023 77.6 kg (171 lb) 07/21/2023 80.1 kg (176 lb 8 oz) 07/06/2022 81.6 kg (180 lb) 01/15/2022 104.3 kg (230 lb) Past medical, family, social history reviewed and updated Medications - prescribed and OTC verified and updated. Allergies verified and updated REVIEW OF SYSTEMS GENERAL: Intentional weight loss. No fatigue or fever. RESPIRATORY: Negative for cough, hemoptysis, wheezing, COPD, dyspnea or shortness of breath CARDIOVASCULAR: Negative for chest pain, leg swelling, hypertension, CHF or palpitations PHYSICAL EXAMINATION: BP 121/77 Pulse (!) 54 Wt 77.6 kg (171 lb) LMP 08/08/2023 (Approximate) BMI 29.85 kg/m? General appearance: Well appearing, alert, in no acute distress, well-hydrated, well nourished. Lungs: Lungs clear to auscultation. No wheezing, rhonchi, rales. Heart: RRR without murmur, gallop, or rubs. No ectopy ASSESSMENT/PLAN: 1. Overweight (BMI 25.0-29.9) - ICD9: 278.02, ICD10: E66.3 (primary diagnosis) 2. Encounter for weight management - ICD9: V65.49, ICD10: Z76.89 - Weight decreasing. Continue behavioral and pharmacologic intervention. - PHENTERMINE 37.5 MG TABLET Berenice Zepeda, BRETT.STONER OUT Allergies As of Date: 08/23/2023 (No Known Allergies) Date Reviewed: 08/23/2023 Reviewed by: Renata Bagley MA - Fully Assessed Reason for Visit: F/U 1 month [1175] Primary Visit Diagnosis:Overweigh t (BMI 25.0-29.9) [E66.3] Other Visit Diagnosis:Encounter for weight management [Z76.89] Order(s):Phentermin e HCl 37.5 mg tabletTake 1 tablet by mouth once daily for 30 days. BMI 29.85kg/m2Disp: 30 tabletRfl: 0 valACYclovir (VALTREX) 1 gram tabletTake 1 tablet by mouth two times a day for 2 days.Disp: 4 tabletRfl: 3 Prescriptions as of 08/25/2023 - Phentermine HCl 37.5 mg tablet Take 1 tablet by mouth once daily for 30 days. BMI 29.85kg/m2 - valACYclovir (VALTREX) 1 gram tablet Take 1 tablet by mouth two times a day for 2 days. - Omeprazole Magnesium (ACID MARKETING COMMUNICATION MANAGER, OMEPRAZOLE,) 20 mg cpDR Problem List As Of Date: 08/23/2023 (None) Prescriptions ordered this encounter Disp Refills Start End PHENTERMINE 37.5 MG TABLET 30 t* 0 08/23/2023 09/22/2023 Route: ORAL Sig: Take 1 tablet by mouth once daily for 30 days. BMI 29.85kg/m2 VALACYCLOVIR 1 GRAM TABLET 4 ta* 3 08/23/2023 08/25/2023 Route: ORAL Sig: Take 1 tablet by mouth two times a day for 2 days. Medications Discontinued During This Encounter Prescriptions - valACYclovir (VALTREX) 1 gram (Discontinued) Take 1 tablet by mouth two times a day for 2 days. for 7 days - Phentermine HCl 37.5 mg tablet (Discontinued) Take 1 tablet by mouth once daily for 30 days. BMI 30.81kg/m2 Encounter Status:Closed by BERENICE ZEPEDA on 08/25/23 Normal [facility] CBC W Auto Differential pane l (Bld)on 07-26-2023 Basophils (Bld) [#/Vol] 0.03 10*3/uL Normal <0.11 [facility] Comment on above: Order Comment: Speci men Type: BLOOD SPECIMEN Ordering Facility: [facility] Address: [address] [place] [address] Performed By: #### 5 7021-8 #### [facility] CLIA [id number] [address] [place] [address] 37151 Basophils/100 WBC (Bld) 0.6 % Normal [facility] Comment on above: Order Comment: Speci men Type: BLOOD SPECIMEN Ordering Facility: [facility] Address: [address] [place] [address] Performed By: #### 5 7021-8 #### [facility] CLIA [id number] [address] [place] [address] 17398 Differential cell count method Nom (Bld) Auto Normal [facility] Comment on above: Order Comment: Speci men Type: BLOOD SPECIMEN Ordering Facility: [facility] Address: [address] [place] [address] Performed By: #### 5 7021-8 #### [facility] CLIA [id number] [address] [place] [address] 21657 Eosinophils (Bld) [#/Vol] 0.13 10*3/uL Normal <0.46 [facility] Comment on above: Order Comment: Speci men Type: BLOOD SPECIMEN Ordering Facility: [facility] Address: [address] [place] [address] Performed By: #### 5 7021-8 #### [facility] CLIA [id number] [address] [place] [address] 94538 Eosinophils/100 WBC (Bld) 2.6 % Normal [facility] Comment on above: Order Comment: Speci men Type: BLOOD SPECIMEN Ordering Facility: [facility] Address: [address] [place] [address] Performed By: #### 5 7021-8 #### [facility] CLIA [id number] [address] [place] [address] 27209 Erythrocyte distribution width (RBC) [Ratio] 12.1 % Normal 11.5-15.0 [facility] Comment on above: Order Comment: Speci men Type: BLOOD SPECIMEN Ordering Facility: [facility] Address: [address] [place] [address] Performed By: #### 5 7021-8 #### [facility] CLIA [id number] [address] [place] [address] 38466 Hematocrit (Bld) [Volume fraction] 37.0 % Normal 36.0-46.0 [facility] Comment on above: Order Comment: Speci men Type: BLOOD SPECIMEN Ordering Facility: [facility] Address: [address] [place] [address] Performed By: #### 5 7021-8 #### [facility] CLIA [id number] [address] [place] [address] 33442 Hemoglobin (Bld) [Mass/Vol] 12.6 g/dL Normal 11.5-15.5 [facility] Comment on above: Order Comment: Speci men Type: BLOOD SPECIMEN Ordering Facility: [facility] Address: [address] [place] [address] Performed By: #### 5 7021-8 #### [facility] CLIA [id number] [address] [place] [address] 10598 Immature granulocytes (Bld) [#/Vol] 10*3/uL Normal <0.10 [facility] Comment on above: Order Comment: Speci men Type: BLOOD SPECIMEN Ordering Facility: [facility] Address: [address] [place] [address] Performed By: #### 5 7021-8 #### [facility] CLIA [id number] [address] [place] [address] Immature granulocytes/100 WBC (Bld) 0.2 % Normal [facility] Comment on above: Order Comment: Speci men Type: BLOOD SPECIMEN Ordering Facility: [facility] Address: [address] [place] [address] Performed By: #### 5 7021-8 #### [facility] CLIA [id number] [address] [place] [address] 57570 Lymphocytes (Bld) [#/Vol] 1.57 10*3/uL Normal 1.00-4.00 [facility] Comment on above: Order Comment: Speci men Type: BLOOD SPECIMEN Ordering Facility: [facility] Address: [address] [place] [address] Performed By: #### 5 7021-8 #### [facility] CLIA [id number] [address] [place] [address] 28244 Lymphocytes/100 WBC (Bld) 31.2 % Normal [facility] Comment on above: Order Comment: Speci men Type: BLOOD SPECIMEN Ordering Facility: [facility] Address: [address] [place] [address] Performed By: #### 5 7021-8 #### [facility] CLIA [id number] [address] [place] [address] 92498 MCH (RBC) [Entitic mass] 32.2 pg Normal 26.0-34.0 [facility] Comment on above: Order Comment: Speci men Type: BLOOD SPECIMEN Ordering Facility: [facility] Address: [address] [place] [address] Performed By: #### 5 7021-8 #### [facility] CLIA [id number] [address] [place] [address] 25550 MCHC (RBC) [Mass/Vol] 34.1 g/dL Normal 30.5-36.[address] [facility] Comment on above: Order Comment: Speci men Type: BLOOD SPECIMEN Ordering Facility: [facility] Address: [address] [place] [address] Performed By: #### 5 7021-8 #### [facility] CLIA [id number] [address] [place] [address] 90494 MCV (RBC) [Entitic vol] 94.6 fL Normal 80.0-100.0 [facility] Comment on above: Order Comment: Speci men Type: BLOOD SPECIMEN Ordering Facility: [facility] Address: [address] [place] [address] Performed By: #### 5 7021-8 #### [facility] CLIA [id number] [address] [place] [address] 69923 Monocytes (Bld) [#/Vol] 0.32 10*3/uL Normal <0.87 [facility] Comment on above: Order Comment: Speci men Type: BLOOD SPECIMEN Ordering Facility: [facility] Address: [address] [place] [address] Performed By: #### 5 7021-8 #### [facility] CLIA [id number] [address] [place] [address] 56534 Monocytes/100 WBC (Bld) 6.3 % Normal [facility] Comment on above: Order Comment: Speci men Type: BLOOD SPECIMEN Ordering Facility: [facility] Address: [address] [place] [address] Performed By: #### 5 7021-8 #### [facility] CLIA [id number] [address] [place] [address] 98511 Neutrophils (Bld) [#/Vol] 2.98 10*3/uL Normal 1.45-7.50 [facility] Comment on above: Order Comment: Speci men Type: BLOOD SPECIMEN Ordering Facility: [facility] Address: [address] [place] [address] Performed By: #### 5 7021-8 #### [facility] CLIA [id number] [address] [place] [address] 40689 Neutrophils/100 WBC (Bld) 59.1 % Normal [facility] Comment on above: Order Comment: Speci men Type: BLOOD SPECIMEN Ordering Facility: [facility] Address: [address] [place] [address] Performed By: #### 5 7021-8 #### [facility] CLIA [id number] [address] [place] [address] 31832 Nucleated RBC (Bld) [#/Vol] 10*3/uL Normal <0.01 [facility] Comment on above: Order Comment: Speci men Type: BLOOD SPECIMEN Ordering Facility: [facility] Address: [address] [place] [address] Performed By: #### 5 7021-8 #### [facility] CLIA [id number] [address] [place] [address] 72258 Nucleated RBC/100 WBC (Bld) [Ratio] 0.0 /100 WBC Normal [facility] Comment on above: Order Comment: Speci men Type: BLOOD SPECIMEN Ordering Facility: [facility] Address: [address] [place] [address] Performed By: #### 5 7021-8 #### [facility] CLIA [id number] [address] [place] [address] 77268 Platelet mean volume (Bld) [Entitic vol] 10.6 fL Normal 9.0-12.7 [facility] Comment on above: Order Comment: Speci men Type: BLOOD SPECIMEN Ordering Facility: [facility] Address: [address] [place] [address] Performed By: #### 5 7021-8 #### [facility] CLIA [id number] [address] [place] [address] 73566 Platelets (Bld) [#/Vol] 226 10*3/uL Normal 150-400 [facility] Comment on above: Order Comment: Speci men Type: BLOOD SPECIMEN Ordering Facility: [facility] Address: [address] [place] [address] Performed By: #### 5 7021-8 #### [facility] CLIA [id number] [address] [place] [address] RBC (Bld) [#/Vol] 3.91 10*6/uL Normal 3.90-5.20 [facility] Comment on above: Order Comment: Speci men Type: BLOOD SPECIMEN Ordering Facility: [facility] Address: [address] [place] [address] Performed By: #### 5 7021-8 #### [facility] CLIA [id number] [address] [place] [address] 69142 WBC (Bld) [#/Vol] 5.04 10*3/uL Normal 3.70-11.00 [facility] Comment on above: Order Comment: Speci men Type: BLOOD SPECIMEN Ordering Facility: [facility] Address: [address] [place] [address] Performed By: #### 5 7021-8 #### [facility] CLIA [id number] [address] [place] [address] 67245 Comprehensive metabolic 2000 panelon 07-26-2023 Albumin [Mass/Vol] 4.4 g/dL Normal 3.9-4.[address] [facility] Comment on above: Order Comment: Speci men Type: BLOOD SPECIMEN Ordering Facility: [facility] Address: [address] [place] [address] Performed By: #### 2 4323-8 #### [facility] CLIA [id number] [address] [place] [address] 47666 ALP [Catalytic activity/Vol] 40 U/L Normal 34-123 [facility] Comment on above: Order Comment: Speci men Type: BLOOD SPECIMEN Ordering Facility: [facility] Address: [address] [place] [address] Performed By: #### 2 4323-8 #### [facility] CLIA [id number] [address] [place] [address] 34706 ALT [Catalytic activity/Vol] 5 U/L Low 7-38 [facility] Comment on above: Order Comment: Speci men Type: BLOOD SPECIMEN Ordering Facility: [facility] Address: [address] [place], [place] [address] Performed By: #### 2 4323-8 #### [facility] CLIA [id number] [address] [place] [address] 21764 Anion gap [Moles/Vol] 8 mmol/L Low 9-[address] [facility] Comment on above: Order Comment: Speci men Type: BLOOD SPECIMEN Ordering Facility: [facility] Address: [address] [place] [address] Performed By: #### 2 4323-8 #### [facility] CLIA [id number] [address] [place] [address] 03110 AST [Catalytic activity/Vol] 7 U/L Low 13-35 [facility] Comment on above: Order Comment: Speci men Type: BLOOD SPECIMEN Ordering Facility: [facility] Address: [address] [place] [address] Performed By: #### 2 4323-8 #### [facility] CLIA [id number] [address] [place] [address] 45381 Bilirubin [Mass/Vol] 0.6 mg/dL Normal 0.2-1.3 [facility] Comment on above: Order Comment: Speci men Type: BLOOD SPECIMEN Ordering Facility: [facility] Address: [address] [place] [address] Performed By: #### 2 4323-8 #### [facility] CLIA [id number] [address] [place] [address] 70383 Calcium [Mass/Vol] 9.5 mg/dL Normal 8.5-10.[address] [facility] Comment on above: Order Comment: Speci men Type: BLOOD SPECIMEN Ordering Facility: [facility] Address: [address] [place] [address] Performed By: #### 2 4323-8 #### [facility] CLIA [id number] [address] [place] [address] 59279 Chloride [Moles/Vol] 105 mmol/L Normal 97-105 [facility] Comment on above: Order Comment: Speci men Type: BLOOD SPECIMEN Ordering Facility: [facility] Address: [address] [place] [id number] Performed By: #### 2 4323-8 #### [facility] CLIA [id number] [address] [place] [address] CO2 [Moles/Vol] 27 mmol/L Normal 22-30 [facility] Comment on above: Order Comment: Speci men Type: BLOOD SPECIMEN Ordering Facility: [facility] Address: [address] [place] [address] Performed By: #### 2 4323-8 #### [facility] CLIA [id number] [address] [place] [address] 38891 Creatinine [Mass/Vol] 0.76 mg/dL Normal 0.58-0.[address] [facility] Comment on above: Order Comment: Speci men Type: BLOOD SPECIMEN Ordering Facility: [facility] Address: [address] [place] [address] Performed By: #### 2 4323-8 #### [facility] CLIA [id number] [address] [place] [address] 41883 Creatinine and Glomerular filtration rate.predicted panel (S/P/Bld) 108 mL/min/1.73m??? Normal >=60 [facility] Comment on above: Order Comment: Speci men Type: BLOOD SPECIMEN Ordering Facility: [facility] Address: [address] [place] [address] Result Comment: Erma mated Glomerular Filtration Rate (eGFR) is calculated using the 2020 CKD-EPI creatinine equation. This equation utilizes serum creatinine, sex, and age as parameters. The creatinine assay has traceable calibration to isotope dilution-mass spectrometry. Refer to KDIGO guidelines for clinical interpretation. In patients with unstable renal function, e.g. those with acute kidney injury, the eGFR may not accurately reflect actual GFR. Performed By: #### 2 4323-8 #### [facility] CLIA [id number] [address] [place] [address] Glucose [Mass/Vol] 93 mg/dL Normal 74-[address] [facility] Comment on above: Order Comment: Speci men Type: BLOOD SPECIMEN Ordering Facility: [facility] Address: [address] [place] [address] Result Comment: The [place] Diabetes [employer] (ADA) provides guidance for cutoff values for fasting glucose and random glucose. The ADA defines fasting as no caloric intake for at least 8 hours. Fasting plasma glucose results between 100 to 125 mg/dL indicate increased risk for diabetes (prediabetes). Fasting plasma glucose results greater than or equal to 126 mg/dL meet the criteria for diagnosis of diabetes. In the absence of unequivocal hyperglycemia, results should be confirmed by repeat testing. In a patient with classic symptoms of hyperglycemia or hyperglycemic crisis, random plasma glucose results greater than or equal to 200 mg/dL meet the criteria for diagnosis of diabetes. Reference: Standards of Medical Care in Diabetes 2016, [place] [employer]. Diabetes Care. 2016.39(Suppl 1). Performed By: #### 2 4323-8 #### [facility] CLIA [id number] [address] [place] [address] 60479 Potassium [Moles/Vol] 4.2 mmol/L Normal 3.7-5.[address] [facility] Comment on above: Order Comment: Speci men Type: BLOOD SPECIMEN Ordering Facility: [facility] Address: [address] [place] [address] Performed By: #### 2 4323-8 #### [facility] CLIA [id number] [address] [place] [address] 75862 Protein [Mass/Vol] 7.2 g/dL Normal 6.3-8.[address] [facility] Comment on above: Order Comment: Speci men Type: BLOOD SPECIMEN Ordering Facility: [facility] Address: [address] [place] [address] Performed By: #### 2 4323-8 #### [facility] CLIA [id number] [address] [place] [address] 90962 Sodium [Moles/Vol] 140 mmol/L Normal 136-[address] [facility] Comment on above: Order Comment: Speci men Type: BLOOD SPECIMEN Ordering Facility: [facility] Address: [address] [place] [address] Performed By: #### 2 4323-8 #### [facility] CLIA [id number] [address] [place] [address] Urea nitrogen [Mass/Vol] 11 mg/dL Normal 7-21 [facility] Comment on above: Order Comment: Speci men Type: BLOOD SPECIMEN Ordering Facility: [facility] Address: [address] [place] [address] Performed By: #### 2 4323-8 #### [facility] CLIA [id number] [address] [place] [address] 52163 HBV surface Ab Ql (S)on HBV surface Ab Qn (S) <8.[address] [facility] Comment on above: Order Comment: Speci men Type: BLOOD SPECIMEN Ordering Facility: [facility] Address: [address] [place] [address] Result Comment: <8 m IU/mL: No serological evidence of immunity to Hepatitis B Virus. >/= 8 to <12 mIU/mL: No serological evidence of immunity to Hepatitis B Virus. >/= 12 mIU/mL: Consistent with serological evidence of immunity to Hepatitis B Virus. Performed By: #### 2 2322-2 #### [facility] CLIA [id number] [address] [place] [address] [place] HBV surface Ab Ser Qlon HBV surface Ab Ql (S) Negative Normal [facility] Comment on above: Order Comment: Speci men Type: BLOOD SPECIMEN Ordering Facility: [facility] Address: [address] [place] [address] Result Comment: No s erological evidence of immunity to Hepatitis B Virus. Performed By: #### 2 2322-2 #### [facility] CLIA [id number] [address] [place] [address] [place] HbA1c (Bld)on 07-26-2023 Average glucose Estimated from glycated hemoglobin (Bld) [Mass/Vol] 94 mg/dL Normal [facility] Comment on above: Order Comment: Speci men Type: BLOOD SPECIMEN Ordering Facility: [facility] Address: [address] [place] [address] Result Comment: eAG: (Estimated average glucose) is a calculated value from HgbA1c and is agricultural sales representative of the average blood glucose level in the last 2-3 month period. Performed By: #### 5 5454-3 #### [facility] CLIA [id number] [address] [place] [address] [place] HbA1c (Bld) [Mass fraction] 4.9 % Normal 4.3-5.6 [facility] Comment on above: Order Comment: [facility] Type: BLOOD SPECIMEN Ordering Facility: [facility] Address: [address] [place] [address] Result Comment: [place] Diabetes Association guidelines indicate that patients with HgbA1c in the range 5.7-6.4% are at increased risk for development of diabetes, and intervention by lifestyle modification may be beneficial. HgbA1c greater or equal to 6.5% is considered diagnostic of diabetes. Performed By: #### 5 5454-3 #### [facility] CLIA [id number] [address] [place] [address] [place] Lipid 1996 panelon 3 Cholesterol [Mass/Vol] 172 mg/dL Normal <200 [facility] Comment on above: Order Comment: [facility] Type: BLOOD SPECIMEN Ordering Facility: [facility] Address: [address] [place] [address] Result Comment: <200 mg/dL, Desirable 200-239 mg/dL, Borderline high >239 mg/dL, High Performed By: #### 2 4331-1 #### [facility] CLIA [id number] [address] [place] [address] [place] [facility] CLIA [id number] [address] [place] [address] 06386 Cholesterol in HDL [Mass/Vol] 58 mg/dL Normal >39 [facility] Comment on above: Order Comment: [facility] Type: BLOOD SPECIMEN Ordering Facility: [facility] Address: [address] [place] [address] Result Comment: 40-5 9 mg/dL, Acceptable >59 mg/dL, High: Negative risk factor for coronary heart disease <40 mg/dL, Low: Positive risk factor for coronary heart disease Performed By: #### 2 4331-1 #### [facility] CLIA [id number] [address] [facility] CLIA [id number] [address] [place] [address] 21385 Cholesterol in LDL [Mass/Vol] 103 mg/dL High <100 [facility] Comment on above: Order Comment: Speci men Type: BLOOD SPECIMEN Ordering Facility: [facility] Address: [address] [place] [address] Result Comment: <100 mg/dL, Optimal 100-129 mg/dL, Near optimal/above optimal 130-159 mg/dL, Borderline high 160-189 mg/dL, High >189 mg/dL, Very high Secondary prevention optimal LDL Cholesterol levels are recommended to be < 70 mg/dL Performed By: #### 2 4331-1 #### [facility] CLIA [id number] [address] [place] [address] LAB CLIA [id number] [address] [place] [address] 08449 Cholesterol in LDL/Cholesterol in HDL [Mass ratio] 1.78 {ratio} Normal <2.54 [facility] Comment on above: Order Comment: Speci men Type: BLOOD SPECIMEN Ordering Facility: [facility] Address: [address] [place] [address] Result Comment: Refe rence: 1. National Cholesterol Education Program ATP III Guideline At-A-Glance Quick Desk Reference: National Heart, Lung, and Blood Renner. National Institutes of Health. 2001: NIH Publication No. 01-3305. 2. An International Atherosclerosis Society position paper: global recommendations for the management of dyslipidemia: executive summary, Atherosclerosis. 2014: 232(2):410-413. Performed By: #### 2 4331-1 #### [facility] CLIA [id number] [address] [place] [id number] [facility] CLIA [id number] [address] [place] [address] 31546 Cholesterol in VLDL [Mass/Vol] 11 mg/dL Normal <30 [facility] Comment on above: Order Comment: Speci men Type: BLOOD SPECIMEN Ordering Facility: [facility] Address: [address] [place] [address] Performed By: #### 2 4331-1 #### [facility] CLIA [id number] [address] [facility] CLIA [id number] [address] [place] [address] 44983 Cholesterol non HDL [Mass/Vol] 114 mg/dL Normal <130 [facility] Comment on above: Order Comment: Speci men Type: BLOOD SPECIMEN Ordering Facility: [facility] Address: [address] [place] [address] Result Comment: <130 mg/dL, Optimal 130-159 mg/dL, Near optimal/above optimal 160-189 mg/dL, Borderline high 190-219 mg/dL, High >219 mg/dL, Very high Secondary prevention optimal non HDL Cholesterol levels are recommended to be <100 mg/dL Performed By: #### 2 4331-1 #### [facility] CLIA [id number] [address] [facility] CLIA [id number] [address] [place] [address] 98118 Cholesterol.total/Choles terol in HDL [Mass ratio] 2.97 {ratio} Normal <5.10 [facility] Comment on above: Order Comment: Speci men Type: BLOOD SPECIMEN Ordering Facility: [facility] Address: [address] [place] [address] Performed By: #### 2 4331-1 #### [facility] CLIA [id number] [address] [facility] CLIA [id number] [address] [place] [address] FASTING TIME 12 hrs Normal [facility] Comment on above: Order Comment: Speci men Type: BLOOD SPECIMEN Ordering Facility: [facility] Address: [address] [place] [address] Performed By: #### 2 4331-1 #### [facility] CLIA [id number] [address] [place] [address] LAB CLIA [id number] [address] [place], [place] [id number] Triglyceride [Mass/Vol] 53 mg/dL Normal <150 [facility] Comment on above: Order Comment: Speci men Type: BLOOD SPECIMEN Ordering Facility: [facility] Address: [address] [place] [address] Result Comment: <150 mg/dL, Normal 150-199 mg/dL, Borderline high 200-499 mg/dL, High >499 mg/dL, Very high Performed By: #### 2 4331-1 #### [facility] CLIA [id number] [address] [place] [address] LAB CLIA [id number] [address] [place] [address] CNOVon 07-21-2023 CNOV Office Visit (INMAVN) ---- CARYL ZAMARRIPA ([id number]) 1990 F Date Time Provider Department 07/21/23 4:20 PM BERENICE ZEPEDA During your visit today, we recorded the following information about you: Pulse Blood pressure Weight Height 60/minute 112/74 80.1 kg 1.612 m Last Period 07/09/23 Berenice Zepeda APRN.STONER OUT 07/22/2023 10:16 AM Signed Caryl Zamarripa is a 32 year old female here today for review of established medical problems as well as comprehensive physical examination. Obesity S/p gastric sleeve surgery in 03/2022 at [facility] in [place] Down about 70lb, has reached plateau Gym 4 days per week with cardio (treadmill, elliptical) Maybe not enough water Tries to focus on more protein, lower carbs Last 10 Encounter Wt Readings: Date: Wt: 07/21/2023 80.1 kg (176 lb 8 oz) 07/06/2022 81.6 kg (180 lb) 01/15/2022 104.3 kg (230 lb) [facility] HM needs: Hepatitis B Vaccine(1 of 3 - 3-dose series) Never done Depression Assessment Never done HPV Testing Never done PAST MEDICAL HISTORY Diagnosis Date GERD (gastroesophageal reflux disease) Prediabetes PAST SURGICAL HISTORY Procedure Laterality Date PT ED BARIATRIC AND METABOLIC gastric sleeve 03/2022 ALLERGIES Patient has no known allergies. 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 BMI 30.81kg/m2 FAMILY HISTORY Problem Relation Age of Onset Asthma Mother Hypertension Father Hyperlipidemia Father Asthma Sister Arthritis Sister Social History Tobacco Use Smoking status: Never Smokeless tobacco: Never Vaping Use Vaping Use: Never used Substance Use Topics Alcohol use: Yes Alcohol/week: 1.3 standard drinks of alcohol Types: 1 Martini/Manhattan Drinks per week Comment: occ. drink Drug use: Never REVIEW OF SYSTEMS GENERAL: Negative for malaise, fever, Positive for intentional weight loss HEENT: Negative for frequent or significant headaches, No changes in hearing or vision, no nose bleeds or other nasal problems NECK: Negative for lumps, goiter, pain and significant neck swelling RESPIRATORY: Negative for cough, hemoptysis, wheezing, COPD, dyspnea or shortness of breath CARDIOVASCULAR: Negative for chest pain, leg swelling, hypertension, CHF or palpitations GI: No nausea, vomiting, or diarrhea : No history of dysuria, frequency or incontinence HEAD CONCIERGE: Negative for abnormal vaginal bleeding, abnormal vaginal discharge MUSCULOSKELETAL: Negative for joint pain or swelling, back pain or muscle pain SKIN: Negative for lesions, rash, and itching PSYCH: Negative for sleep disturbance, mood disorder and recent psychosocial stressors HEMATOLOGY/LYMPHOLO GY: Negative for prolonged bleeding, bruising easily or swollen nodes ENDOCRINE: Negative for cold or heat intolerance, polyuria, polydipsia and goiter NEURO: No history of headaches, syncope, paralysis, seizures or tremors PHYSICAL EXAMINATION: BP 112/74 Pulse 60 Ht 161.2 cm (5' 3.47 ) Wt 80.1 kg (176 lb 8 oz) LMP 07/09/2023 (Approximate) BMI 30.81 kg/m? General appearance: Well appearing, alert, in no acute distress, well-hydrated, well nourished. Skin: Skin color, texture, turgor normal, no suspicious rashes or lesions Head: Normocephalic, no masses, lesions, tenderness or abnormalities Eyes: Anicteric sclera. Pupils are equally round and reactive to light. Extraocular movements are intact. Ears: External ears normal, canals clear Nose/Sinuses: Nares normal, septum midline, mucosa normal, no drainage or sinus tenderness Oropharynx: Lips, mucosa, and tongue normal, teeth and gums normal, oropharynx normal Neck: Supple, no adenopathy; thyroid symmetric, normal size, no bruits Back: Normal exam Lungs: Lungs clear to auscultation. No wheezing, rhonchi, rales. Heart: RRR without murmur, gallop, or rubs. No ectopy Abdomen: Normal abdominal exam, Abdomen soft, non-tender. Bowel sounds normal. No masses, organomegaly Extremities: No deformities, edema, skin discoloration, clubbing or cyanosis. Good capillary refill. Musculoskeletal: No joint swelling, deformity, or tenderness Peripheral pulses: Normal Neuro: Gait normal. Reflexes normal and symmetric. Sensation grossly intact. Breast/Pelvic: Per HEAD CONCIERGE ASSESSMENT/PLAN: 1. Routine adult health maintenance - ICD9: V70.0, ICD10: Z00.00 (primary diagnosis) - Counseled on healthy diet and regular exercise - Calcium intake with supplements or by diet of 1000 mg/day for under 50, 3897-8975 mg/day for 50+ - Discussed need and benefit for weight loss. BMI 30.81 kg/(m2) - HGB A1C - COMP METABOLIC PANEL - LIPID PANEL BASIC - CBC + DIFF 2. IFG (impaired fasting glucose) - ICD9: 790.21, ICD10: (more content not included)... Normal [facility] Basophils Auto (Bld) [#/Vol] Ordered By: Reena Breaux on 10-11-2022 Basophils (Bld) [#/Vol] 0.0 10*3/uL 0.0-0.2 [facility] Basophils/100 WBC Auto (Bld) Ordered By: Reena Breaux on 10-11-2022 Basophils/100 WBC (Bld) 0.7 % . [facility] Body fluid albumin measureme nt (mass/volume)Ordered By: Reena Breaux on 10-11-2022 Albumin (Body fld) [Mass/Vol] 4.0 g/dL 3.2-5.5 [facility] CT biopsyOrdered By: Reena malhotra on 10-11-2022 Transferrin [Mass/Vol] 206 mg/dL 180-380 [facility] Complete Blood Count Auto Di ffon 10-11-2022 Basophils (Bld) [#/Vol] 0.0 10*3/uL Normal 0.0-0.2 [facility] Comment on above: Result Comment: PERF ORMED BY: [place] [address] PATHOLOGIST MONOMER PURIFICATION OPERATOR AMANDA CALLE M.D. Performed By: #### P HOS, [id number], CMP, CBC, [id number], FE PRO, MG #### [facility] [address] [place] [address] #### VITB1 #### [facility] , Basophils/100 WBC (Bld) 0.7 % Normal . [facility] Comment on above: Performed By: #### P HOS, [id number], CMP, CBC, [id number], FE PRO, MG #### [facility] [address] [place] [address] [place] #### VITB1 #### [facility] , Eosinophils (Bld) [#/Vol] 0.1 10*3/uL Normal 0.0-0.45 [facility] Comment on above: Performed By: #### P HOS, [id number], CMP, CBC, [id number], FE PRO, MG #### [facility] [address] [place] [address] #### VITB1 #### [facility] , Eosinophils/100 WBC (Bld) 1.7 % Normal . [facility] Comment on above: Performed By: #### P HOS, [id number], CMP, CBC, [id number], FE PRO, MG #### [facility] [address] [place] [address] #### VITB1 #### [facility] , Erythrocyte distribution width (RBC) [Ratio] 12.9 % Normal 11.9-15.3 [facility] Comment on above: Performed By: #### P HOS, [id number], CMP, CBC, [id number], FE PRO, MG #### [facility] [address] [place] [address] #### VITB1 #### [facility] , Hematocrit (Bld) [Volume fraction] 39.1 % Normal 34.0-46.4 [facility] Comment on above: Performed By: #### P HOS, [id number], CMP, CBC, [id number], FE PRO, MG #### [facility] [address] [place] [address] [place] #### VITB1 #### [facility] , Hemoglobin (Bld) [Mass/Vol] 13.1 g/dL Normal 11.8-15.4 [facility] Comment on above: Performed By: #### P HOS, [id number], CMP, CBC, [id number], FE PRO, MG #### [facility] [address] [place] [address] [place] #### VITB1 #### [facility] , Lymphocytes (Bld) [#/Vol] 2.7 10*3/uL Normal 1.00-4.8 [facility] Comment on above: Performed By: #### P HOS, [id number], CMP, CBC, [id number], FE PRO, MG #### [facility] [address] [place] [address] #### VITB1 #### [facility] , Lymphocytes/100 WBC (Bld) 39.8 % Normal . [facility] Comment on above: Performed By: #### P HOS, [id number], CMP, CBC, [id number], FE PRO, MG #### [address] #### VITB1 #### [facility] , MCH (RBC) [Entitic mass] 31.9 pg Normal 24.7-34.3 [facility] Comment on above: Performed By: #### P HOS, [id number], CMP, CBC, [id number], FE PRO, MG #### [address] #### VITB1 #### [facility] , MCV (RBC) [Entitic vol] 95.3 fL Normal 80-100 [facility] Comment on above: Performed By: #### P HOS, [id number], CMP, CBC, [id number], FE PRO, MG #### [address] #### VITB1 #### [facility] , Mean Corpuscular HGB Conc 33.5 g/dL Normal 32.0-35.0 [facility] Comment on above: Performed By: #### P HOS, [id number], CMP, CBC, [id number], FE PRO, MG #### [address] #### VITB1 #### [facility] , Monocytes (Bld) [#/Vol] 0.3 10*3/uL Normal 0.0-0.8 [facility] Comment on above: Performed By: #### P HOS, [id number], CMP, CBC, [id number], FE PRO, MG #### [facility] [address] [place] [address] #### VITB1 #### [facility] , Monocytes/100 WBC (Bld) 5.1 % Normal . [facility] Comment on above: Performed By: #### P HOS, [id number], CMP, CBC, [id number], FE PRO, MG #### [facility] [address] [place] [address] #### VITB1 #### [facility] , Neutrophils (Bld) [#/Vol] 3.6 10*3/uL Normal 1.8-7.7 [facility] Comment on above: Performed By: #### P HOS, [id number], CMP, CBC, [id number], FE PRO, MG #### [address] #### VITB1 #### [facility] , Neutrophils/100 WBC (Bld) 52.7 % Normal . [facility] Comment on above: Performed By: #### P HOS, [id number], CMP, CBC, [id number], FE PRO, MG #### [address] #### VITB1 #### [facility] , NRBC% 0.0 /100{WBC} Normal 0-0.5 [facility] Comment on above: Performed By: #### P HOS, [id number], CMP, CBC, [id number], FE PRO, MG #### [facility] [address] [place] [address] [place] #### VITB1 #### [facility] , Platelet mean volume (Bld) [Entitic vol] 9.8 fL Normal 6.3-10.7 [facility] Comment on above: Performed By: #### P HOS, [id number], CMP, CBC, [id number], FE PRO, MG #### [facility] [address] [place] [address] [place] #### VITB1 #### [facility] , Platelets (Bld) [#/Vol] 226 10*3/uL Normal 150-450 [facility] Comment on above: Performed By: #### P HOS, [id number], CMP, CBC, [id number], FE PRO, MG #### [address] #### VITB1 #### [facility] , RBC (Bld) [#/Vol] 4.11 10*6/uL Normal 3.60-5.00 [facility] Comment on above: Performed By: #### P HOS, [id number], CMP, CBC, [id number], FE PRO, MG #### [address] #### VITB1 #### [facility] , WBC (Bld) [#/Vol] 6.8 10*3/uL Normal 3.8-11.6 [facility] Comment on above: Performed By: #### P HOS, [id number], CMP, CBC, [id number], FE PRO, MG #### [facility] [address] [place] [address] [place] #### VITB1 #### [facility] , Comprehensive Metabolic Pane nicole 10-11-2022 Albumin [Mass/Vol] 4.0 g/dL Normal 3.2-5.5 [facility] Comment on above: Performed By: #### P HOS, [id number], CMP, CBC, [id number], FE PRO, MG #### [facility] [address] [place] [address] [place] #### VITB1 #### [facility] , Albumin/Globulin [Mass ratio] 1.4 {ratio} Normal [facility] Comment on above: Performed By: #### P HOS, [id number], CMP, CBC, [id number], FE PRO, MG #### [facility] [address] [place] [address] #### VITB1 #### [facility] , ALP [Catalytic activity/Vol] 36 U/L Normal 32-92 [facility] Comment on above: Performed By: #### P HOS, [id number], CMP, CBC, [id number], FE PRO, MG #### [facility] [address] [place] [address] #### VITB1 #### [facility] , ALT [Catalytic activity/Vol] 12 U/L Normal 10-60 [facility] Comment on above: Performed By: #### P HOS, [id number], CMP, CBC, [id number], FE PRO, MG #### [facility] [address] [place] [address] #### VITB1 #### [facility] , Anion gap [Moles/Vol] 11.6 mmol/L Normal 6.0-15.0 [facility] Comment on above: Performed By: #### P HOS, [id number], CMP, CBC, [id number], FE PRO, MG #### [facility] [address] [place] [address] #### VITB1 #### [facility] , AST [Catalytic activity/Vol] 11 U/L Normal 10-42 [facility] Comment on above: Performed By: #### P HOS, [id number], CMP, CBC, [id number], FE PRO, MG #### [facility] [address] [place] [address] #### VITB1 #### [facility] , Bilirubin [Mass/Vol] 0.3 mg/dL Normal 0.3-1.2 [facility] Comment on above: Performed By: #### P HOS, [id number], CMP, CBC, [id number], FE PRO, MG #### [facility] [address] [place] [address] #### VITB1 #### [facility] , Calcium [Mass/Vol] 9.3 mg/dL Normal 8.2-10.2 [facility] Comment on above: Performed By: #### P HOS, [id number], CMP, CBC, [id number], FE PRO, MG #### [facility] [address] [place] [address] #### VITB1 #### [facility] , Chloride [Moles/Vol] 103 mmol/L Normal 95-114 [facility] Comment on above: Performed By: #### P HOS, [id number], CMP, CBC, [id number], FE PRO, MG #### [facility] [address] [place] [address] #### VITB1 #### [facility] , CO2 [Moles/Vol] 26.4 mmol/L Normal 22.0-30.0 [facility] Comment on above: Performed By: #### P HOS, [id number], CMP, CBC, [id number], FE PRO, MG #### [facility] [address] [place] [address] #### VITB1 #### [facility] , Creatinine [Mass/Vol] 0.70 mg/dL Normal 0.44-1.03 [facility] Comment on above: Performed By: #### P HOS, [id number], CMP, CBC, [id number], FE PRO, MG #### [facility] [address] [place] [address] [place] #### VITB1 #### [facility] , Estimated GFR ( Christiano > 60 Normal [facility] Comment on above: Result Comment: GFR estimated reference range: According to KDOQI guidelines, <60 ml/min/1.73m2 is sufficient to diagnose a patient with chronic kidney disease. Performed By: #### P HOS, [id number], CMP, CBC, [id number], FE PRO, MG #### [place] [address] [place] #### VITB1 #### [facility] , Estimated GFR (Non- Am > 60 [facility] Comment on above: Performed By: #### P HOS, [id number], CMP, CBC, [id number], FE PRO, MG #### [address] #### VITB1 #### [facility] , Globulin (S) [Mass/Vol] 2.8 g/dL Normal [facility] Comment on above: Performed By: #### P HOS, [id number], CMP, CBC, [id number], FE PRO, MG #### [address] #### VITB1 #### [facility] , Glucose [Mass/Vol] 85 mg/dL Normal 70-100 [facility] Comment on above: Result Comment: [facility]an Glucose Reference Range is dependent on time and content of last meal. Glucose of more than 200 mg/dL in a nonstressed, ambulatory subject supports the diagnosis of Diabetes Mellitus. ADA recommended reference range Performed By: #### P HOS, [id number], CMP, CBC, [id number], FE PRO, MG #### [place] [address] [place] #### VITB1 #### [facility] , Potassium [Moles/Vol] 4.0 mmol/L Normal 3.5-5.1 [facility] Comment on above: Performed By: #### P HOS, [id number], CMP, CBC, [id number], FE PRO, MG #### [place] [address] [place] #### VITB1 #### [facility] , Protein [Mass/Vol] 6.8 g/dL Normal 6.1-7.9 [facility] Comment on above: Performed By: #### P HOS, [id number], CMP, CBC, [id number], FE PRO, MG #### [facility] [address] [place] [address] [place] #### VITB1 #### [facility] , Sodium [Moles/Vol] 137 mmol/L Normal 136-146 [facility] Comment on above: Performed By: #### P HOS, [id number], CMP, CBC, [id number], FE PRO, MG #### [facility] [address] [place] [address] [place] #### VITB1 #### [facility] , Urea nitrogen [Mass/Vol] 11 mg/dL Normal 9-23 [facility] Comment on above: Performed By: #### P HOS, [id number], CMP, CBC, [id number], FE PRO, MG #### [facility] [address] [place] [address] [place] #### VITB1 #### [facility] , Creatinine and Glomerular fi ltration rate.predicted panel (S/P/Bld)Ordered By: Reena Breaux on 10-11-2022 Creatinine [Mass/Vol] 0.70 mg/dL 0.44-1.03 [facility] Eosinophils Auto (Bld) [#/Vo l]Ordered By: Reena Breaux on 10-11-2022 Eosinophils (Bld) [#/Vol] 0.1 10*3/uL 0.0-0.45 [facility] Eosinophils/100 WBC Auto (Bl d)Ordered By: Reena Breaux on 10-11-2022 Eosinophils/100 WBC (Bld) 1.7 % . [facility] Erythrocyte distribution wid th Auto (RBC) [Ratio]Ordered By: Reena Breaux on 10-11-2022 Erythrocyte distribution width (RBC) [Ratio] 12.9 % 11.9-15.3 [facility] Estimated glomerular filtrat ion rate (GFR) non- AmericanOrdered By: Reena Breaux on 10-11-2022 GFR/1.73 sq M.predicted among non-blacks MDRD (S/P/Bld) [Vol rate/Area] > 60 mL/Min [facility] FE PROon 10-11-2022 % Iron Saturation 24.0 % Normal 20-50 [facility] Comment on above: Performed By: #### P HOS, [id number], CMP, CBC, [id number], FE PRO, MG #### [facility] [address] [place] [address] #### VITB1 #### [facility] , Ferritin [Mass/Vol] 29.2 ng/mL Normal 11-306.8 [facility] Comment on above: Performed By: #### P HOS, [id number], CMP, CBC, [id number], FE PRO, MG #### [facility] [address] [place] [address] [place] #### VITB1 #### [facility] , Iron [Mass/Vol] 69 ug/dL Normal 40-150 [facility] Comment on above: Performed By: #### P HOS, [id number], CMP, CBC, [id number], FE PRO, MG #### [facility] [address] [place] [address] [place] #### VITB1 #### [facility] , Total Iron Binding Capacity 288 ug/dL Normal 255-450 [facility] Comment on above: Performed By: #### P HOS, [id number], CMP, CBC, [id number], FE PRO, MG #### [facility] [address] [place] [address] [place] #### VITB1 #### [facility] , Transferrin [Mass/Vol] 206 mg/dL Normal 180-380 [facility] Comment on above: Performed By: #### P HOS, [id number], CMP, CBC, [id number], FE PRO, MG #### [facility] [address] #### VITB1 #### [facility] , Ferritin [Mass/volume] in Se rum or PlasmaOrdered By: Reena Breaux on 10-11-2022 Ferritin [Mass/Vol] 29.2 ng/mL 11-306.8 [facility] Folate [Mass/volume] in Seru m or PlasmaOrdered By: Reena Breaux on 10-11-2022 Folate [Mass/Vol] 22.2 ng/mL >5.9 [facility] Comment on above: Folate reference ran ge: >5.9 ng/mlThe WHO technical consultation on folate and vitamin [id number] has determined that folate concentrations lessthan 4 ng/ml are considered deficient. Globulin Calc (S) [Mass/Vol] Ordered By: Reena Breaux on 10-11-2022 Globulin (S) [Mass/Vol] 2.8 g/dL F [facility] Hematocrit Auto (Bld) [Volum e fraction]Ordered By: Reena Breaux on 10-11-2022 Hematocrit (Bld) [Volume fraction] 39.1 % 34.0-46.4 [facility] Hemoglobin [Mass/volume] in BloodOrdered By: Reena Breaux on 10-11-2022 Hemoglobin (Bld) [Mass/Vol] 13.1 g/dL 11.8-15.4 [facility] Iron [Mass/volume] in Serum or PlasmaOrdered By: Reena Breaux on 10-11-2022 Iron [Mass/Vol] 69 ug/dL 40-150 [facility] Iron binding capacity [Mass/ volume] in Serum or PlasmaOrdered By: Reena Breaux on 10-11-2022 Iron binding capacity [Mass/Vol] 288 ug/dL 255-450 [facility] Iron saturation [Mass Fracti on] in Serum or PlasmaOrdered By: Reena Breaux on 10-11-2022 Iron saturation [Mass fraction] 24.0 % 20-50 [facility] Laboratory - Chemistry and C hemistry - challengeOrdered By: Reena Breaux on 10-11-2022 Cobalamin (Vitamin B12) [Mass/Vol] 1437 pg/mL 180-914 [facility] Magnesium [Mass/Vol] 2.1 mg/dL 1.6-2.6 [facility] Leukocytes [#/volume] correc jakob for nucleated erythrocytes in Blood by Automated counOrdered By: Reena Breaux on 10-11-2022 WBC corrected for nucl RBC Auto (Bld) [#/Vol] 6.8 10*3/uL 3.8-11.6 [facility] Lymphocytes Auto (Bld) [#/Vo l]Ordered By: Reena Breaux on 10-11-2022 Lymphocytes (Bld) [#/Vol] 2.7 10*3/uL 1.00-4.8 [facility] Lymphocytes/100 WBC Auto (Bl d)Ordered By: Reena Breaux on 10-11-2022 Lymphocytes/100 WBC (Bld) 39.8 % . [facility] MCH Auto (RBC) [Entitic mass ]Ordered By: Reena Breaux on 10-11-2022 MCH (RBC) [Entitic mass] 31.9 pg 24.7-34.3 [facility] MCHC Auto (RBC) [Mass/Vol]Or dered By: Reena Breaux on 10-11-2022 MCHC (RBC) [Mass/Vol] 33.5 g/dL 32.0-35.0 [facility] MCV Auto (RBC) [Entitic vol] Ordered By: Reena Breaux on 10-11-2022 MCV (RBC) [Entitic vol] 95.3 fL 80-100 F [facility] Magnesiumon 10-11-2022 Magnesium [Mass/Vol] 2.1 mg/dL Normal 1.6-2.6 [facility] Comment on above: Performed By: #### P HOS, [id number], CMP, CBC, [id number], FE PRO, MG #### [facility] [address] [place] [address] #### VITB1 #### [facility] , Monocytes Auto (Bld) [#/Vol] Ordered By: Reena Breaux on 10-11-2022 Monocytes (Bld) [#/Vol] 0.3 10*3/uL 0.0-0.8 [facility] Monocytes/100 WBC Auto (Bld) Ordered By: Reena Breaux on 10-11-2022 Monocytes/100 WBC (Bld) 5.1 % . [facility] Neutrophils Auto (Bld) [#/Vo l]Ordered By: Reena Breaux on 10-11-2022 Neutrophils (Bld) [#/Vol] 3.6 10*3/uL 1.8-7.7 [facility] Neutrophils/100 WBC Auto (Bl d)Ordered By: Reena Breaux on 10-11-2022 Neutrophils/100 WBC (Bld) 52.7 % . [facility] No Panel InformationOrdered By: Reena Breaux on 10-11-2022 25-Hydroxy Vitamin D Total 33.9 ng/mL 30-100 [facility] Comment on above: VITAMIN D STATUS 25( [place])VITAMIN D RANGE (ng/mL) Deficient <20 Insufficient 20 to <30Sufficient 30 to 100Reference: Kofi MF,Mauricio NC, Mayank CUELLAR, et al. Evaluation,treatment, and prevention of vitamin D deficiency; an Endocrine Society clinical practice guideline. JCEM. 2010; 96(7):1911-30. Estimated GFR () > 60 mL/Min [facility] Comment on above: GFR estimated refere nce range: According to KDOQI guidelines, <60 ml/min/1.73m2 is sufficient to diagnose a patient with chronic kidney disease. Pharmacy Creatinine Clearance (Chem N/A [facility] Nucleated erythrocytes [Pres ence] in Blood by Automated countOrdered By: Reena Breaux on 10-11-2022 Nucleated RBC Auto Ql (Bld) 0.0 /100{WBC} 0-0.5 [facility] Phosphate [Mass/volume] in S negro or PlasmaOrdered By: Reena Breaux on 10-11-2022 Phosphate [Mass/Vol] 3.9 mg/dL 2.5-4.6 [facility] Phosphoruson 10-11-2022 Phosphate [Mass/Vol] 3.9 mg/dL Normal 2.5-4.6 [facility] Comment on above: Performed By: #### P HOS, [id number], CMP, CBC, [id number], FE PRO, MG #### [facility] [address] [place] [address] [place] #### VITB1 #### [facility] , Platelet mean volume Auto (B ld) [Entitic vol]Ordered By: Reena Breaux on 10-11-2022 Platelet mean volume (Bld) [Entitic vol] 9.8 fL 6.3-10.7 [facility] Platelets Auto (Bld) [#/Vol] Ordered By: Reena Breaux on 10-11-2022 Platelets (Bld) [#/Vol] 226 10*3/uL 150-450 [facility] Protein [Mass/volume] in Ser um or PlasmaOrdered By: Reena Breaux on 10-11-2022 Protein [Mass/Vol] 6.8 g/dL 6.1-7.9 [facility] RBC Auto (Bld) [#/Vol]Ordere d By: Reena Breaux on 10-11-2022 RBC (Bld) [#/Vol] 4.11 10*6/uL 3.60-5.00 [facility] Serum or plasma alanine doss otransferase measurement without P-5'-P (enzymatic activiOrdered By: Reena Breaux on 10-11-2022 ALT No additional P-5'-P [Catalytic activity/Vol] 12 U/L 10-60 [facility] Serum or plasma albumin/glob ulin mass ratioOrdered By: Reena Breaux on 10-11-2022 Albumin/Globulin [Mass ratio] 1.4 {ratio} [facility] Serum or plasma alkaline denis sphatase measurement (enzymatic activity/volume)Ordered By: Reena Breaux on 10-11-2022 ALP [Catalytic activity/Vol] 36 U/L 32-92 [facility] Serum or plasma anion gap de terminationOrdered By: Reena Breaux on 10-11-2022 Anion gap [Moles/Vol] 11.6 mmol/L 6.0-15.0 [facility] Serum or plasma aspartate am inotransferase measurement (enzymatic activity/volume)Ordered By: Reena Breaux on 10-11-2022 AST [Catalytic activity/Vol] 11 U/L 10-42 [facility] Serum or plasma calcium gloria urement (mass/volume)Ordered By: Reena Breaux on 10-11-2022 Calcium [Mass/Vol] 9.3 mg/dL 8.2-10.2 [facility] Serum or plasma chloride gina surement (moles/volume)Ordered By: Reena Breaux on 10-11-2022 Chloride [Moles/Vol] 103 mmol/L 95-114 [facility] Serum or plasma glucose gloria urement (mass/volume)Ordered By: Reena Breaux on 10-11-2022 Glucose [Mass/Vol] 85 mg/dL 70-100 [facility] Comment on above: ADA recommended refe rence rangeRandom Glucose Reference Range is dependent on time and content of last meal. Glucose of more than 200 mg/dL in a nonstressed, ambulatory subject supports the diagnosis of Diabetes Mellitus. Serum or plasma potassium me asurement (moles/volume)Ordered By: Reena Breaux on 10-11-2022 Potassium [Moles/Vol] 4.0 mmol/L 3.5-5.1 [facility] Serum or plasma sodium measu rement (moles/volume)Ordered By: Reena Breaux on 10-11-2022 Sodium [Moles/Vol] 137 mmol/L 136-146 [facility] Serum or plasma total biliru bin measurement (mass/volume)Ordered By: Reena Breaux on 10-11-2022 Bilirubin [Mass/Vol] 0.3 mg/dL 0.3-1.2 [facility] Serum or plasma total carbon dioxide measurement (moles/volume)Ordered By: Reena Breaux on 10-11-2022 CO2 [Moles/Vol] 26.4 mmol/L 22.0-30.0 [facility] Serum or plasma urea nitroge n measurement (mass/volume)Ordered By: Reena Breaux on 10-11-2022 Urea nitrogen [Mass/Vol] 11 mg/dL 9-23 [facility] Vit. B12/Folate Profileon Cobalamin (Vitamin B12) [Mass/Vol] 1437 pg/mL High 180-914 [facility] Comment on above: Performed By: #### P HOS, [id number], CMP, CBC, [id number], FE PRO, MG #### [facility] [address] [place] [address] [place] #### VITB1 #### [facility] , Folate 22.2 ng/mL Normal >5.9 [facility] Comment on above: Result Comment: Tara te reference range: >5.9 ng/ml The WHO technical consultation on folate and vitamin b12 deficiencies has determined that folate concentrations less than 4 ng/ml are considered deficient. Performed By: #### P HOS, [id number], CMP, CBC, [id number], FE PRO, MG #### [facility] [address] [place] [address] #### VITB1 #### [facility] , Vitamin B1 (Thiamine) Bloodo n 10-11-2022 Vitamin B1 (Thiamine) Blood 153.8 Normal 66.5-200.0 [facility] Comment on above: Result Comment: This test was developed and its performance characteristics determined by [employer]. It has not been cleared or approved by the Food and Drug Administration. Performed at: [address] [id number] Embedded Systems Software Engineer: Chary Soler MD, Phone: [phone] PERFORMED BY: [place] [address] PATHOLOGIST MONOMER PURIFICATION OPERATOR AMANDA CALLE M.D. Performed By: #### P HOS, [id number], CMP, CBC, [id number], FE PRO, MG #### [facility] [address] [place] [address] [place] #### VITB1 #### [facility] , Vitamin D 25 Hydroxy Totalon 10-11-2022 Vitamin D 25 Hydroxy Total 33.9 ng/mL Normal 30-100 [facility] Comment on above: Result Comment: JONAH MIN D STATUS 25(OH)VITAMIN D RANGE (ng/mL) Deficient <20 Insufficient 20 to <30 Sufficient 30 to 100 Reference: Kofi MF,Mauricio NC, Mayank CUELLAR, et al. Evaluation,treatment, and prevention of vitamin D deficiency; an Endocrine Society clinical practice guideline. JCEM. 2010; 96(7):1911-30. PERFORMED BY: [place] [address] PATHOLOGIST MONOMER PURIFICATION OPERATOR AMANDA CALLE M.D. Performed By: #### P HOS, [id number], CMP, CBC, [id number], FE PRO, MG #### [facility] [address] [place] [address] #### VITB1 #### [facility] , WBC Auto (Bld) [#/Vol]Ordere d By: Reena Breaux on 10-11-2022 WBC (Bld) [#/Vol] 6.8 10*3/uL 3.8-11.6 [facility] Complete Blood Count Auto Di ffon 06-10-2022 Basophils (Bld) [#/Vol] 0.0 10*3/uL Normal 0.0-0.2 [facility] Comment on above: Order Comment: NOT F ASTING. JKW Result Comment: PERF ORMED BY: [place] [address] PATHOLOGIST MONOMER PURIFICATION OPERATOR AMANDA CALLE M.D. Performed By: #### V ITB1 #### [facility] , #### [id number], CMP, MG, FE PRO, PHOS, [id number], CBC #### [facility] [address] [place] [address] Basophils/100 WBC (Bld) 0.7 % Normal . F [facility] Comment on above: Order Comment: NOT F ASTING. JKW Performed By: #### V ITB1 #### [facility] , #### [id number], CMP, MG, FE PRO, PHOS, [id number], CBC #### [address] Eosinophils (Bld) [#/Vol] 0.2 10*3/uL Normal 0.0-0.45 [facility] Comment on above: Order Comment: NOT F ASTING. JKW Performed By: #### V ITB1 #### [facility] , #### [id number], CMP, MG, FE PRO, PHOS, [id number], CBC #### [address] Eosinophils/100 WBC (Bld) 2.6 % Normal . [facility] Comment on above: Order Comment: NOT F ASTING. JKW Performed By: #### V ITB1 #### [facility] , #### [id number], CMP, MG, FE PRO, PHOS, [id number], CBC #### [address] Erythrocyte distribution width (RBC) [Ratio] 13.9 % Normal 11.9-15.3 [facility] Comment on above: Order Comment: NOT F ASTING. JKW Performed By: #### V ITB1 #### [facility] , #### [id number], CMP, MG, FE PRO, PHOS, [id number], CBC #### [address] Hematocrit (Bld) [Volume fraction] 39.1 % Normal 34.0-46.4 [facility] Comment on above: Order Comment: NOT F ASTING. JKW Performed By: #### V ITB1 #### [facility] , #### [id number], CMP, MG, FE PRO, PHOS, [id number], CBC #### [address] Hemoglobin (Bld) [Mass/Vol] 12.8 g/dL Normal 11.8-15.4 [facility] Comment on above: Order Comment: NOT F ASTING. JKW Performed By: #### V ITB1 #### [facility] , #### [id number], CMP, MG, FE PRO, PHOS, [id number], CBC #### [facility] [address] Lymphocytes (Bld) [#/Vol] 1.5 10*3/uL Normal 1.00-4.8 [facility] Comment on above: Order Comment: NOT F ASTING. JKW Performed By: #### V ITB1 #### [facility] , #### [id number], CMP, MG, FE PRO, PHOS, [id number], CBC #### [address] Lymphocytes/100 WBC (Bld) 24.6 % Normal . [facility] Comment on above: Order Comment: NOT F ASTING. JKW Performed By: #### V ITB1 #### [facility] , #### [id number], CMP, MG, FE PRO, PHOS, [id number], CBC #### [facility] [address] [place] [address] MCH (RBC) [Entitic mass] 31.8 pg Normal 24.7-34.3 [facility] Comment on above: Order Comment: NOT F ASTING. JKW Performed By: #### V ITB1 #### [facility] , #### [id number], CMP, MG, FE PRO, PHOS, [id number], CBC #### [facility] [address] [place] [address] MCV (RBC) [Entitic vol] 97.2 fL Normal 80-100 [facility] Comment on above: Order Comment: NOT F ASTING. JKW Performed By: #### V ITB1 #### [facility] , #### [id number], CMP, MG, FE PRO, PHOS, [id number], CBC #### [facility] [address] Mean Corpuscular HGB Conc 32.7 g/dL Normal 32.0-35.0 [facility] Comment on above: Order Comment: NOT F ASTING. JKW Performed By: #### V ITB1 #### [facility] , #### [id number], CMP, MG, FE PRO, PHOS, [id number], CBC #### [address] Monocytes (Bld) [#/Vol] 0.4 10*3/uL Normal 0.0-0.8 [facility] Comment on above: Order Comment: NOT F ASTING. JKW Performed By: #### V ITB1 #### [facility] , #### [id number], CMP, MG, FE PRO, PHOS, [id number], CBC #### [address] Monocytes/100 WBC (Bld) 7.3 % Normal . [facility] Comment on above: Order Comment: NOT F ASTING. JKW Performed By: #### V ITB1 #### [facility] , #### [id number], CMP, MG, FE PRO, PHOS, [id number], CBC #### [address] Neutrophils (Bld) [#/Vol] 3.8 10*3/uL Normal 1.8-7.7 [facility] Comment on above: Order Comment: NOT F ASTING. JKW Performed By: #### V ITB1 #### [facility] , #### [id number], CMP, MG, FE PRO, PHOS, [id number], CBC #### [place] [address] [place] Neutrophils/100 WBC (Bld) 64.8 % Normal . [facility] Comment on above: Order Comment: NOT F ASTING. JKW Performed By: #### V ITB1 #### [facility] , #### [id number], CMP, MG, FE PRO, PHOS, [id number], CBC #### [address] Nucleated RBC/100 WBC (Bld) [Ratio] 0.1 % Normal 0-0.5 [facility] Comment on above: Order Comment: NOT F ASTING. JKW Performed By: #### V ITB1 #### [facility] , #### [id number], CMP, MG, FE PRO, PHOS, [id number], CBC #### [address] Platelet mean volume (Bld) [Entitic vol] 10.6 fL Normal 6.3-10.7 [facility] Comment on above: Order Comment: NOT F ASTING. JKW Performed By: #### V ITB1 #### [facility] , #### [id number], CMP, MG, FE PRO, PHOS, [id number], CBC #### [address] Platelets (Bld) [#/Vol] 237 10*3/uL Normal 150-450 [facility] Comment on above: Order Comment: NOT F ASTING. JKW Performed By: #### V ITB1 #### [facility] , #### [id number], CMP, MG, FE PRO, PHOS, [id number], CBC #### [facility] [address] [place] [address] [place] RBC (Bld) [#/Vol] 4.02 10*6/uL Normal 3.60-5.00 [facility] Comment on above: Order Comment: NOT F ASTING. JKW Performed By: #### V ITB1 #### [facility] , #### [id number], CMP, MG, FE PRO, PHOS, [id number], CBC #### [facility] [address] WBC (Bld) [#/Vol] 5.9 10*3/uL Normal 4.5-11.0 [facility] Comment on above: Order Comment: NOT F ASTING. JKW Performed By: #### V ITB1 #### [facility] , #### [id number], CMP, MG, FE PRO, PHOS, [id number], CBC #### [facility] [address] Comprehensive Metabolic Pane nicole 06-10-2022 Albumin [Mass/Vol] 3.9 g/dL Normal 3.2-5.5 [facility] Comment on above: Order Comment: NOT F ASTING. JKW Performed By: #### V ITB1 #### [facility] , #### [id number], CMP, MG, FE PRO, PHOS, [id number], CBC #### [address] Albumin/Globulin [Mass ratio] 1.4 {ratio} Normal [facility] Comment on above: Order Comment: NOT F ASTING. JKW Performed By: #### V ITB1 #### [facility] , #### [id number], CMP, MG, FE PRO, PHOS, [id number], CBC #### [address] ALP [Catalytic activity/Vol] 43 U/L Normal 32-92 [facility] Comment on above: Order Comment: NOT F ASTING. JKW Performed By: #### V ITB1 #### [facility] , #### [id number], CMP, MG, FE PRO, PHOS, [id number], CBC #### [facility] [address] ALT [Catalytic activity/Vol] 12 U/L Normal 10-60 [facility] Comment on above: Order Comment: NOT F ASTING. JKW Performed By: #### V ITB1 #### [facility] , #### [id number], CMP, MG, FE PRO, PHOS, [id number], CBC #### [facility] [address] Anion gap [Moles/Vol] 11.0 mmol/L Normal 6.0-15.0 [facility] Comment on above: Order Comment: NOT F ASTING. JKW Performed By: #### V ITB1 #### [facility] , #### [id number], CMP, MG, FE PRO, PHOS, [id number], CBC #### [address] AST [Catalytic activity/Vol] 10 U/L Normal 10-42 [facility] Comment on above: Order Comment: NOT F ASTING. JKW Performed By: #### V ITB1 #### [facility] , #### [id number], CMP, MG, FE PRO, PHOS, [id number], CBC #### [facility] [address] [place] [address] Bilirubin [Mass/Vol] 0.7 mg/dL Normal 0.3-1.2 [facility] Comment on above: Order Comment: NOT F ASTING. JKW Performed By: #### V ITB1 #### [facility] , #### [id number], CMP, MG, FE PRO, PHOS, [id number], CBC #### [facility] [address] [place] [address] Calcium [Mass/Vol] 9.8 mg/dL Normal 8.2-10.2 [facility] Comment on above: Order Comment: NOT F ASTING. JKW Performed By: #### V ITB1 #### [facility] , #### [id number], CMP, MG, FE PRO, PHOS, [id number], CBC #### [facility] [address] Chloride [Moles/Vol] 104 mmol/L Normal 95-114 [facility] Comment on above: Order Comment: NOT F ASTING. JKW Performed By: #### V ITB1 #### [facility] , #### [id number], CMP, MG, FE PRO, PHOS, [id number], CBC #### [address] CO2 [Moles/Vol] 25.3 mmol/L Normal 22.0-30.0 [facility] Comment on above: Order Comment: NOT F ASTING. JKW Performed By: #### V ITB1 #### [facility] , #### [id number], CMP, MG, FE PRO, PHOS, [id number], CBC #### [address] Creatinine [Mass/Vol] 0.56 mg/dL Normal 0.44-1.03 [facility] Comment on above: Order Comment: NOT F ASTING. JKW Performed By: #### V ITB1 #### [facility] , #### [id number], CMP, MG, FE PRO, PHOS, [id number], CBC #### [facility] [address] [place] [address] Estimated GFR ( Christiano > 60 Normal [facility] Comment on above: Order Comment: NOT F ASTING. JKW Result Comment: GFR estimated reference range: According to KDOQI guidelines, <60 ml/min/1.73m2 is sufficient to diagnose a patient with chronic kidney disease. Performed By: #### V ITB1 #### [facility] , #### [id number], CMP, MG, FE PRO, PHOS, [id number], CBC #### [facility] [address] Estimated GFR (Non- Am > 60 Normal [facility] Comment on above: Order Comment: NOT F ASTING. JKW Performed By: #### V ITB1 #### [facility] , #### [id number], CMP, MG, FE PRO, PHOS, [id number], CBC #### [address] Globulin (S) [Mass/Vol] 2.8 g/dL Normal [facility] Comment on above: Order Comment: NOT F ASTING. JKW Performed By: #### V ITB1 #### [facility] , #### [id number], CMP, MG, FE PRO, PHOS, [id number], CBC #### [address] Glucose [Mass/Vol] 95 mg/dL Normal 70-100 [facility] Comment on above: Order Comment: NOT F ASTING. JKW Result Comment: [facility] Glucose Reference Range is dependent on time and content of last meal. Glucose of more than 200 mg/dL in a nonstressed, ambulatory subject supports the diagnosis of Diabetes Mellitus. ADA recommended reference range Performed By: #### V ITB1 #### [facility] , #### [id number], CMP, MG, FE PRO, PHOS, [id number], CBC #### [address] Potassium [Moles/Vol] 4.3 mmol/L Normal 3.5-5.1 [facility] Comment on above: Order Comment: NOT F ASTING. JKW Performed By: #### V ITB1 #### [facility] , #### [id number], CMP, MG, FE PRO, PHOS, [id number], CBC #### [address] Protein [Mass/Vol] 6.7 g/dL Normal 6.1-7.9 [facility] Comment on above: Order Comment: NOT F ASTING. JKW Performed By: #### V ITB1 #### [facility] , #### [id number], CMP, MG, FE PRO, PHOS, [id number], CBC #### [address] Sodium [Moles/Vol] 136 mmol/L Normal 136-146 [facility] Comment on above: Order Comment: NOT F ASTING. JKW Performed By: #### V ITB1 #### [facility] , #### [id number], CMP, MG, FE PRO, PHOS, [id number], CBC #### [address] Urea nitrogen [Mass/Vol] 7 mg/dL Low 9-23 [facility] Comment on above: Order Comment: NOT F ASTING. JKW Performed By: #### V ITB1 #### [facility] , #### [id number], CMP, MG, FE PRO, PHOS, [id number], CBC #### [address] FE PROon 10-20-2022 % Iron Saturation 19.0 % Low 20-50 [facility] Comment on above: Order Comment: NOT F ASTING. JKW Performed By: #### P HOS, [id number], CMP, CBC, [id number], FE PRO, MG #### [facility] [address] [place] [address] [place] #### VITB1 #### [facility] , Ferritin [Mass/Vol] 46.7 ng/mL Normal 11-306.8 [facility] Comment on above: Order Comment: NOT F ASTING. JKW Performed By: #### P HOS, [id number], CMP, CBC, [id number], FE PRO, MG #### [place] [address] [place] #### VITB1 #### [facility] , Iron [Mass/Vol] 50 ug/dL Normal 40-150 [facility] Comment on above: Order Comment: NOT F ASTING. JKW Performed By: #### P HOS, [id number], CMP, CBC, [id number], FE PRO, MG #### [address] #### VITB1 #### [facility] , Total Iron Binding Capacity 260 ug/dL Normal 255-450 [facility] Comment on above: Order Comment: NOT F ASTING. JKW Performed By: #### P HOS, [id number], CMP, CBC, [id number], FE PRO, MG #### [address] #### VITB1 #### [facility] , Transferrin [Mass/Vol] 186 mg/dL Normal 180-380 [facility] Comment on above: Order Comment: NOT F ASTING. JKW Performed By: #### P HOS, [id number], CMP, CBC, [id number], FE PRO, MG #### [address] #### VITB1 #### [facility] , Magnesiumon 06-10-2022 Magnesium [Mass/Vol] 2.0 mg/dL Normal 1.6-2.6 [facility] Comment on above: Order Comment: NOT F ASTING. JKW Performed By: #### P HOS, [id number], CMP, CBC, [id number], FE PRO, MG #### [place] [address] [place] #### VITB1 #### [facility] , Phosphoruson 06-10-2022 Phosphate [Mass/Vol] 4.1 mg/dL Normal 2.5-4.6 [facility] Comment on above: Order Comment: NOT F ASTING. JKW Performed By: #### P HOS, [id number], CMP, CBC, [id number], FE PRO, MG #### [facility] [address] [place] [address] #### VITB1 #### [facility] , Vit. B12/Folate Profileon Cobalamin (Vitamin B12) [Mass/Vol] 575 pg/mL Normal 180-914 [facility] Comment on above: Order Comment: NOT F ASTING. JKW Performed By: #### P HOS, [id number], CMP, CBC, [id number], FE PRO, MG #### [facility] [address] [place] [address] #### VITB1 #### [facility] , Folate 14.3 ng/mL Normal >5.9 [facility] Comment on above: Order Comment: NOT F ASTING. JKW Result Comment: Tara te reference range: >5.9 ng/ml The WHO technical consultation on folate and vitamin b12 deficiencies has determined that folate concentrations less than 4 ng/ml are considered deficient. Performed By: #### P HOS, [id number], CMP, CBC, [id number], FE PRO, MG #### [facility] [address] [place] [address] #### VITB1 #### [facility] , Vitamin B1 (Thiamine) Bloodo n 06-10-2022 Vitamin B1 (Thiamine) Blood 143.0 Normal 66.5-200.0 [facility] Comment on above: Order Comment: NOT F ASTING. JKW Result Comment: This test was developed and its performance characteristics determined by [employer]. It has not been cleared or approved by the Food and Drug Administration. Performed at: [address] [id number] Embedded Systems Software Engineer: Chary Soler MD, Phone: [phone] PERFORMED BY: [place] [phone] PATHOLOGIST MONOMER PURIFICATION OPERATOR AMANDA CALLE M.D. Performed By: #### P HOS, [id number], CMP, CBC, [id number], FE PRO, MG #### [place] [id number] [facility] #### VITB1 #### [facility] , Vitamin D 25 Hydroxy Totalon 06-10-2022 Vitamin D 25 Hydroxy Total 27.8 ng/mL Low 30-100 [facility] Comment on above: Order Comment: NOT F ASTING. JKW Result Comment: JONAH MIN D STATUS 25(OH)VITAMIN D RANGE (ng/mL) Deficient <20 Insufficient 20 to <30 Sufficient 30 to 100 Reference: Kofi MF,Mauricio NC, Mayank CUELLAR, et al. Evaluation,treatment, and prevention of vitamin D deficiency; an Endocrine Society clinical practice guideline. JCEM. 2010; 96(7):1911-30. PERFORMED BY: [place] [address] PATHOLOGIST MONOMER PURIFICATION OPERATOR AMANDA CALLE M.D. Performed By: #### P HOS, [id number], CMP, CBC, [id number], FE PRO, MG #### [place] [id number] [facility] #### VITB1 #### [facility] , HGB A1Con 01-15-2022 Average glucose Estimated from glycated hemoglobin (Bld) [Mass/Vol] 128 mg/dL [facility] Comment on above: Order Comment: Speci men Type: BLOOD SPECIMEN Ordering Facility: [facility] Address: [address] [place] [address] Result Comment: eAG: (Estimated average glucose) is a calculated value from HgbA1c and is agricultural sales representative of the average blood glucose level in the last 2-3 month period. Performed By: #### H BA1C #### [facility] CLIA [id number] [address] [place] [address] [id number] [place] [address] [place] HbA1c (Bld) [Mass fraction] 6.1 % High 4.3-5.6 [facility] Comment on above: Order Comment: Mary adilene Type: BLOOD SPECIMEN Ordering Facility: [facility] Address: [address] [place], [place] [id number] Result Comment: Jayy ican Diabetes Association guidelines indicate that patients with HgbA1c in the range 5.7-6.4% are at increased risk for development of diabetes, and intervention by lifestyle modification may be beneficial. HgbA1c greater or equal to 6.5% is considered diagnostic of diabetes. Performed By: #### H BA1C #### [facility] CLIA [id number] [address] [place] [address] [id number] [address] [place] POTASSIUM Don 01-15-2022 Potassium [Moles/Vol] 4.9 mmol/L Normal 3.7-5.1 [facility] Comment on above: Order Comment: Mary head Type: BLOOD SPECIMEN Ordering Facility: [facility] Address: [address] [place], [place] [id number] Performed By: #### K 1 #### [facility] CLIA [id number] [facility] [place] [address] [place] Potassium [Moles/Vol] 4.9 mmol/L 3.7 - 5.1 mmol/L [facility] Vital Signs Date Time Vital Sign Value Performing Clinician Gavino sim 12-10-2024 11:23-0400 Body mass index (BMI) [Ratio] 33.66 kg/m2 Rosy KRUGER Work Phone: [facility] 12-10-2024 11:23-040 Body weight 86.18 kg Rosy KRUGER Work Phone: [facility] 12-10-2024 11:23-0400 Diastolic blood pressure 70 mm[Hg] Rosy KRUGER Work Phone: [facility] 12-10-2024 11:23-040 Systolic blood pressure 106 mm[Hg] Rosy KRUGER Work Phone: [facility] 11-08-2024 11:04-0400 Body mass index (BMI) [Ratio] 32.24 kg/m2 Roscoe Joe DO Work Phone: [facility] 11-08-2024 11:04-0400 Body weight 82.56 kg Roscoe Joe DO Work Phone: [facility] 11-08-2024 11:04-0400 Diastolic blood pressure 60 mm[Hg] Roscoe Joe DO Work Phone: [facility] 11-08-2024 11:04-0400 Systolic blood pressure 100 mm[Hg] Roscoe Joe DO Work Phone: [facility] 10-18-2024 13:54-0500 Body mass index (BMI) [Ratio] 31.38 kg/m2 [facility] Nurse [facility] 10-18-2024 13:54-0500 Body weight 80.34 kg [facility] Nurse [facility] 08-02-2024 15:58-0500 Body temperature 96.8 [degF] Edu Alvarez FLYING SQUAD SALESPERSON Work Phone: [facility] 08-02-2024 15:58-0500 Diastolic blood pressure 66 mm[Hg] Edu Alvarez FLYING SQUAD SALESPERSON Work Phone: [facility] 08-02-2024 15:58-0500 Heart rate 88 /min Edu Alvarez FLYING SQUAD SALESPERSON Work Phone: [facility] 08-02-2024 15:58-0500 SaO2% (BldA) [Mass fraction] 98 % Edu Alvarez FLYING SQUAD SALESPERSON Work Phone: [facility] 08-02-2024 15:58-0500 Systolic blood pressure 106 mm[Hg] Edu Alvarez FLYING SQUAD SALESPERSON Work Phone: [facility] 07-25-2024 14:19-0500 Body height 160 cm Sina DICOM Grid DO Work Phone: [facility] 07-25-2024 14:19-0500 Body mass index (BMI) [Ratio] 30.82 kg/m2 Sina Cristobal DO Work Phone: [facility] 07-25-2024 14:19-0500 Body weight 78.93 kg Sina Garner DO Work Phone: [facility] 07-25-2024 14:19-0500 Diastolic blood pressure 68 mm[Hg] Sina Garner DO Work Phone: [facility] 07-25-2024 14:19-0500 Heart rate 68 /min Sina Garner DO Work Phone: [facility] 07-25-2024 14:19-0500 Respiratory rate 12 /min Sina Garner DO Work Phone: [facility] 07-25-2024 14:19-0500 SaO2% (BldA) [Mass fraction] 99 % Sina Garner DO Work Phone: [facility] 07-25-2024 14:19-0500 Systolic blood pressure 128 mm[Hg] Sina Garner DO Work Phone: [facility] 06-29-2024 12:36-0500 Body mass index (BMI) [Ratio] 29.58 kg/m2 Berenice Zepeda APRN.STONER OUT Work Phone: [facility] 06-29-2024 12:36-0500 Body weight 75.75 kg Berenice Mirandaer FIELD ARTILLERY OPERATIONS SPECIALIST.STONER OUT Work Phone: [facility] 06-29-2024 12:36-0500 Diastolic blood pressure 68 mm[Hg] Berenice Webbtter FIELD ARTILLERY OPERATIONS SPECIALIST.STONER OUT Work Phone: [facility] 06-29-2024 12:36-0500 Heart rate 65 /min Berenice Zepeda FIELD ARTILLERY OPERATIONS SPECIALIST.STONER OUT Work Phone: [facility] 06-29-2024 12:36-0500 Systolic blood pressure 101 mm[Hg] Berenice Katelyn FIELD ARTILLERY OPERATIONS SPECIALIST.STONER OUT Work Phone: [facility] 09-23-2023 14:27-0500 Body height 160 cm Berenice Zepeda FIELD ARTILLERY OPERATIONS SPECIALIST.STONER OUT Work Phone: [facility] 09-23-2023 14:27-0500 Body weight 76.2 kg Berenice Webbtter FIELD ARTILLERY OPERATIONS SPECIALIST.STONER OUT Work Phone: [facility] 07-21-2023 16:05-0500 Body height 161.2 cm Berenice Katelyn FIELD ARTILLERY OPERATIONS SPECIALIST.STONER OUT Work Phone: [facility] 07-21-2023 16:05-0500 Body weight 80.06 kg Berenice Katelyn FIELD ARTILLERY OPERATIONS SPECIALIST.STONER OUT Work Phone: [facility] 07-21-2023 16:05-0500 Diastolic blood pressure 74 mm[Hg] Berenice Katelyn FIELD ARTILLERY OPERATIONS SPECIALIST.STONER OUT Work Phone: [facility] 07-21-2023 16:05-0500 Heart rate 60 /min Berenice Webbtter FIELD ARTILLERY OPERATIONS SPECIALIST.STONER OUT Work Phone: [facility] 07-21-2023 16:05-0500 Systolic blood pressure 112 mm[Hg] Berenice Webbtter FIELD ARTILLERY OPERATIONS SPECIALIST.STONER OUT Work Phone: [facility] 01-15-2022 11:50-0400 Body height 162.6 cm Dasha Lujan MD Work Phone: [facility] 01-15-2022 11:50-0400 Body temperature 98.01 [degF] Dasha Lujan MD Work Phone: [facility] 01-15-2022 11:50-0400 Body weight 104.33 kg Dasha Lujan MD Work Phone: [facility] 01-15-2022 11:50-0400 Diastolic blood pressure 86 mm[Hg] Dasha Lujan MD Work Phone: [facility] 01-15-2022 11:50-0400 Heart rate 65 /min Dasha Lujan MD Work Phone: [facility] 01-15-2022 11:50-0400 Respiratory rate 16 /min Dasha Lujan MD Work Phone: [facility] 01-15-2022 11:50-0400 Systolic blood pressure 124 mm[Hg] Dasha Lujan MD Work Phone: [facility] Encounters Encounter Date Encounter Type Care Provider Facility Start: 12-10-2024 End: 12-10-2024 Bamboo flowsheet Rosy KRUGER Work Phone: [facility] Start: 12-10-2024 End: 12-12-2024 Bamboo flowsheet Rosy KRUGER Work Phone: [facility] Start: 12-10-2024 End: 12-12-2024 Clinisync Result Encounter Rosy KRUGER Work Phone: [facility] Unsolicited Start: 12-10-2024 End: 12-11-2024 External Result Encounter Rosy KRUGER Work Phone: [facility] Unsolicited Start: 12-10-2024 End: 12-10-2024 Patient encounter procedure Rosy KRUGER Work Phone: [facility] Start: 12-10-2024 End: 12-10-2024 Periodic preventive med est patient 18-39 yrs Rosy KRUGER Work Phone: [facility] Comment on above: Well woman exam with routine gynecological exam; Second trimester ; 17 weeks gestation of ; Exposure to STD; Need for maternal serum alpha-protein (MSAFP) screening; Screening, , for anatomic survey Start: 12-10-2024 End: 12-10-2024 ambulatory ROSY QUIROZ Not Available Start: 11-08-2024 End: 11-08-2024 Bamboo flowsheet Roscoe Joe DO Work Phone: [facility] Start: 11-08-2024 End: 11-08-2024 Bamboo flowsheet Roscoe Joe DO Work Phone: [facility] Start: 11-08-2024 End: 11-08-2024 ambulatory ROSCOE JOE Not Available Start: 11-08-2024 End: 11-08-2024 flow sheet Roscoe Joe DO Work Phone: [facility] Comment on above: 12 weeks gestation o f Start: 10-19-2024 End: 10-19-2024 Clinisync Result Encounter Roscoe Joe DO Work Phone: [facility] Unsolicited Start: 10-19-2024 End: 10-19-2024 Clinisync Result Encounter Roscoe Joe DO Work Phone: [facility] Unsolicited Start: 10-18-2024 End: 10-18-2024 Office outpatient visit 5 minutes [facility] Joe Nurse [facility] Comment on above: GA: 9w4d Start: 10-18-2024 End: 10-18-2024 ambulatory SINA GARNER Not Available Start: 08-02-2024 End: 08-02-2024 ambulatory EDU ALVAREZ Not Available Start: 08-02-2024 End: 08-02-2024 Office outpatient visit 25 minutes Edu Alvarez FLYING SQU[employer] SALESPERSON Work Phone: [facility] Comment on above: Acute cough (Primary Dx); Chest congestion; Bronchitis Start: 07-25-2024 End: 07-25-2024 ambulatory SINA CRISTOBAL Not Available Start: 07-25-2024 End: 07-25-2024 Office outpatient new 45 minutes Sina Cristobal DO Work Phone: [facility] Comment on above: Rectal bleeding (Cony mike Dx) Start: 07-25-2024 End: 07-25-2024 Bamboo flowsheet Sina Cristobal DO Work Phone: [facility] Start: 07-25-2024 End: 07-25-2024 Bamboo flowsheet Sina Cristobal DO Work Phone: [facility] Start: 06-29-2024 End: 06-29-2024 ambulatory DASHA LUJAN Facility:[facility] Start: 06-29-2024 End: 06-29-2024 Patient encounter procedure Berenice Zepeda APRN.STONER OUT Work Phone: [facility] Medicine Comment on above: Encounter for weight management (Primary Dx); Overweight Start: 03-06-2024 ambulatory Berenice wheatley APRN.STONER OUT Work Phone: Internal Medicine Start: 03-06-2024 Patient encounter procedure Berenice Zepeda APRN.STONER OUT Work Phone: Internal Medicine Comment on above: Prescription Start: 09-23-2023 End: 09-23-2023 ambulatory Berenice Zepeda APRN.STONER OUT Work Phone: Internal Medicine Comment on above: Encounter for weight management; Overweight (BMI 25.0-29.9) Start: 09-23-2023 End: 09-23-2023 Telemedicine consultation with patient Berenice Zepeda APRRajatSTONER OUT Work Phone: [facility] Start: 08-23-2023 End: 08-23-2023 ambulatory BERENICE ZEPEDA Facility:[facility] Start: 07-26-2023 End: 07-26-2023 ambulatory DASHA LUJAN Facility:[facility] Start: 07-21-2023 End: 07-21-2023 [facility] Start: 07-21-2023 End: 07-21-2023 Patient encounter procedure Berenice Zepeda BRETT.STONER OUT Work Phone: Internal Medicine Comment on above: Routine adult health maintenance (Primary Dx); IFG (impaired fasting glucose); Encounter for weight management; Class 1 obesity due to excess calories with body mass index (BMI) of 30.0 to 30.9 in adult, unspecified whether serious comorbidity present; Encounter for immunization; Immunity status testing Start: 07-21-2023 End: 07-21-2023 Patient encounter status Berenice Zepeda STONER OUT Work Phone: [facility] Work Phone: Start: 06-29-2023 ambulatory Dasha Lujan MD Work Phone: Internal Medicine Comment on above: Prescription Start: 10-11-2022 End: 10-11-2022 ambulatory Reena Breaux Facility:[facility] Start: 10-11-2022 End: 10-11-2022 ambulatory MD Dasha Lujan Work Phone: [facility] Work Phone: Start: 10-11-2022 End: 10-11-2022 Patient encounter procedure MD Dasha Lujan Work Phone: [facility] Start: 06-10-2022 End: 06-10-2022 ambulatory Reena Breaux Facility:[facility] Start: 01-15-2022 End: 01-15-2022 Office outpatient new 30 minutes Dasha Lujan MD Work Phone: Internal Medicine Comment on above: Preoperative clearan ce (Primary Dx); Obesity (BMI 30-39.9); Blood glucose elevated; Hyperkalemia; Hepatic steatosis Start: 01-15-2022 End: 01-15-2022 Preoperative state Dasha Lujan MD Work Phone: Internal Medicine Start: 01-08-2022 Telephone encounter Dasha salmeron MD Work Phone: Internal Medicine Comment on above: Patient Question Procedures Date Procedure Procedure Detail Performing Clinician Start: 12-10-2024 RECURRENT VAGINITIS (HTRX) Rosy KRUGER Work Phone: Start: 12-10-2024 Urnls dip stick/tabl et rgnt non-auto w/o micrscp Rosy KRUGER Work Phone: Start: 12-10-2024 IGP,APTIMA HPV,AGE GDLN Rosy KRUGER Work Phone: Start: 11-08-2024 Urnls dip stick/tabl et rgnt non-auto w/o micrscp Roscoe Joe DO Work Phone: Start: 10-19-2024 ALL CBC WITH AUTO DIFF Roscoe Joe DO Work Phone: Start: 10-18-2024 Urnls dip stick/tabl et rgnt non-auto w/o micrscp Roscoe Joe DO Work Phone: Start: 01-15-2022 Adult depression screening assessment Dasha Lujan MD Work Phone: Plan of Treatment Date Care Activity Detail Author Start: 07-21-2033 Urine microalbumin profile [facility] Start: 04-22-2025 Influenza vaccination Influenz a Vaccine (Season Ended) [facility] Start: 01-15-2025 Pap Testing Pap Testing [facility] Start: 01-15-2025 Screening for malign ant neoplasm of cervix Pap Testing [facility] Start: 01-10-2025 End: 01-10-2025 Patient encounter procedure 01/10/2025 10:10 AM EDT Routine [facility] [address] [address] [address] [place] [id number] Roscoe Diaz, DO [address] [place] [address] [facility] Start: 12-10-2024 End: 01-09-2025 Alpha fetoprotein, maternal Alpha fetoprotein, maternal Lab Routine Need for maternal serum alpha-protein (MSAFP) screening Expected: 12/10/2024 (Approximate), Expires: 01/09/2025 [facility] Comment on above: Expected: 12/10/2024 (Approximate), Expires: 01/09/2025 Start: 12-10-2024 End: 03-11-2025 US for US OB 14+ weeks anatomy scan Imaging Routine Screening, , for anatomic survey Expected: 12/10/2024, Expires: 03/11/2025 [facility] Comment on above: Expected: 12/10/2024 , Expires: 03/11/2025 Start: 12-10-2024 End: 12-10-2024 Patient encounter procedure 12/10/2024 11:00 AM EDT Routine [facility] [address] [facility] [place] [id number] Rosy Quiroz PA [address] [place] [address] Arrived [facility] Comment on above: Arrived Start: 11-08-2024 End: 11-08-2024 Patient encounter procedure 11/08/2024 10:50 AM EDT Routine [facility] [address] [place] [id number] Roscoe Diaz, DO [address] [place], [place] [id number] [facility] Start: 10-18-2024 End: 10-18-2025 ABO/Rh ABO/Rh Lab Routine Missed menses , unspecified gestational age Expected: 10/18/2024 (Approximate), Expires: 10/18/2025 [facility] Comment on above: Expected: 10/18/2024 (Approximate), Expires: 10/18/2025 Start: 10-18-2024 End: 10-18-2025 Blood type and Indirect antibody screen panel - Blood Type and screen Lab Routine Missed menses , unspecified gestational age Expected: 10/18/2024 (Approximate), Expires: 10/18/2025 [facility] Comment on above: Expected: 10/18/2024 (Approximate), Expires: 10/18/2025 Start: 10-18-2024 End: 10-18-2025 Drugs of abuse panel - Urine by Screen method Rapid drug screen, urine Lab Routine , unspecified gestational age Encounter for supervision of normal first in first trimester Expected: 10/18/2024 (Approximate), Expires: 10/18/2025 [facility] Comment on above: Expected: 10/18/2024 (Approximate), Expires: 10/18/2025 Start: 10-18-2024 End: 10-18-2025 US Pelvis transvaginal [facility] Work Phone: Comment on above: Expected: 10/18/2024 , Expires: 10/18/2025 Start: 07-21-2024 Covid-19 Vaccine (#1) Covid-19 Vacci ne (#1) [facility] Comment on above: Postponed from 04/08 (Declined at this time) Start: 07-21-2024 Covid-19 Vaccine () Covid-19 Vaccine () [facility] Comment on above: Postponed from 04/22 (Declined at this time) Start: 04-22-2024 Covid-19 Vaccine () Covid-19 Vaccine () [facility] Start: 04-22-2024 Influenza vaccination Influenza Vacc ine (#1) [facility] Start: 02-19-2024 Influenza vaccination Influenza Vacc ine (#1) [facility] Comment on above: Postponed from 04/22 (Declined at this time) Start: 08-22-2023 Behavioral Health Screening Behavioral Health Screening [facility] Start: 08-22-2023 Depression Assessment Depression Ass essment [facility] Start: 07-21-2023 End: 10-20-2023 CBC W Auto Differential panel - Blood CBC + DIFF Lab Routine Routine adult health maintenance Expected: 07/21/2023, Expires: 10/20/2023 [facility] Work Phone: Comment on above: Expected: 07/21/2023 , Expires: 10/20/2023 Start: 07-21-2023 End: 10-20-2023 Comprehensive metabolic 2000 panel - Serum or Plasma COMP METABOLIC PANEL Lab Routine Routine adult health maintenance Expected: 07/21/2023, Expires: 10/20/2023 [facility] Work Phone: Comment on above: Expected: 07/21/2023 , Expires: 10/20/2023 Start: 07-21-2023 End: 10-20-2023 Hemoglobin A1c in Blood HGB A1C Lab Routine IFG (impaired fasting glucose) Routine adult health maintenance Expected: 07/21/2023, Expires: 10/20/2023 [facility] Work Phone: Comment on above: Expected: 07/21/2023 , Expires: 10/20/2023 Start: 07-21-2023 End: 10-20-2023 Hepatitis B virus surface Ab [Presence] in Serum HEP B SURF AB Lab Routine Immunity status testing Expected: 07/21/2023, Expires: 10/20/2023 [facility] Work Phone: Comment on above: Expected: 07/21/2023 , Expires: 10/20/2023 Start: 07-21-2023 End: 10-20-2023 Lipid 1996 panel - Serum or Plasma LIPID PANEL BASIC Lab Routine Routine adult health maintenance Expected: 07/21/2023, Expires: 10/20/2023 [facility] Work Phone: Comment on above: Expected: 07/21/2023 , Expires: 10/20/2023 Start: 07-06-2023 Hepatitis B Vaccine (1 of 3 - 3-dose series) Hepatitis B Vaccine (1 of 3 - 3-dose series) [facility] Comment on above: Postponed from 10/09 (Declined at this time) Start: 04-22-2023 Influenza vaccination Influenza Vacc ine (#1) [facility] Start: 01-15-2023 Adult depression screening assessment DEPRESSION SCREENING [facility] Start: 01-15-2023 COVID-19 VACCINE (#1) COVID-19 VACCI NE (#1) [facility] Comment on above: Postponed from 10/09 (Declined at this time) Start: 01-15-2023 PAP TESTING PAP TESTING [facility] Start: 01-15-2023 Screening for malign ant neoplasm of cervix Cervical Cancer Screening [facility] Start: 2022 HPV Testing HPV Testing [facility] Start: 2022 Screening for malign ant neoplasm of cervix [facility] Start: 08-22-2022 Depression Assessment Depression Ass essment [facility] Start: 04-22-2022 Influenza vaccination INFLUENZ A (Season Ended) [facility] Start: 01-15-2022 End: 03-17-2022 Hemoglobin A1c/Hemoglobin.total in Blood [facility] Work Phone: Comment on above: Expected: 01/15/2022 , Expires: 03/17/2022 Start: 2013 Screening for malign ant neoplasm of cervix Pap Smear [facility] Start: 2011 Urine microalbumin profile [facility] Start: 2010 Anxiety Screening Anxiety Screening [facility] Start: 2010 Depression Screening Depression Scre ening [facility] Start: 04-08-1993 Covid-19 Vaccine (#1) Covid-19 Vacci ne (#1) [facility] Start: 1992 Hepatitis B Vaccine (1 of 3 - 3-dose series) Hepatitis B Vaccine (1 of 3 - 3-dose series) [facility] Bacteria identified in Urine by Culture Urine culture Microbiology Routine Missed menses Ordered: 10/18/2024 [facility] Comment on above: Ordered: 10/18/2024 CBC W Auto Different ial panel - Blood CBC and differential Lab Routine Missed menses , unspecified gestational age Ordered: 10/18/2024 [facility] Comment on above: Ordered: 10/18/2024 CHLAMYDIA TRACHOMATI S (GENITO/STI) CHLAMYDIA TRACHOMATIS (GENITO/STI) Lab Routine Exposure to STD Ordered: 12/10/2024 [facility] Comment on above: Ordered: 12/10/2024 Cytology Cervical or vaginal smear or scraping study Pap Smear Pathology and Cytology Routine Well woman exam with routine gynecological exam Ordered: 12/10/2024 [facility] Comment on above: Ordered: 12/10/2024 Hemoglobin A1c/Hemoglobin.total in Blood Hemoglobin A1c Lab Routine Missed menses , unspecified gestational age Ordered: 10/18/2024 [facility] Comment on above: Ordered: 10/18/2024 Hepatitis B virus surface Ag [Presence] in Serum or Plasma by Immunoassay Hepatitis B surface antigen Lab Routine Missed menses , unspecified gestational age Ordered: 10/18/2024 [facility] Comment on above: Ordered: 10/18/2024 Hepatitis C virus Ab [Presence] in Serum or Plasma by Immunoassay Hepatitis C antibody Lab Routine Missed menses , unspecified gestational age Ordered: 10/18/2024 [facility] Comment on above: Ordered: 10/18/2024 HIV-1/HIV-2 antigen/antibody combination immunoassay HIV-1 and HIV-2 antibodies Lab Routine Missed menses , unspecified gestational age Ordered: 10/18/2024 [facility] Comment on above: Ordered: 10/18/2024 Human papilloma viru s DNA [Presence] in Unspecified specimen by Probe with amplification HPV DNA probe, amplified Microbiology Routine Well woman exam with routine gynecological exam Ordered: 12/10/2024 [facility] Comment on above: Ordered: 12/10/2024 Neisseria gonorrhoea e DNA [Presence] in Unspecified specimen by ALPA with probe detection Neisseria gonorrhea DNA probe, direct Lab Routine Exposure to STD Ordered: 12/10/2024 [facility] Comment on above: Ordered: 12/10/2024 Reagin Ab [Presence] in Serum by RPR RPR Lab Routine Missed menses , unspecified gestational age Ordered: 10/18/2024 [facility] Comment on above: Ordered: 10/18/2024 Rubella antibody, IgG Rubella an tibody, IgG Lab Routine Missed menses , unspecified gestational age Ordered: 10/18/2024 [facility] Healthcare Comment on above: Ordered: 10/18/2024 SURESWAB(R) ADVANCED VAGINITIS PLUS, TMA SURESWAB(R) ADVANCED VAGINITIS PLUS, TMA Pathology and Cytology Routine Exposure to STD Ordered: 12/10/2024 [facility] Work Phone: Comment on above: Ordered: 12/10/2024 Thiamine [Moles/volu me] in Blood [facility] Immunizations Immunization Date Immunization Notes Care Provider Fa [facility] 07-21-2023 tetanus toxoid, redu sloane diphtheria toxoid, and acellular pertussis vaccine, adsorbed Berenice Zepeda FIELD ARTILLERY OPERATIONS SPECIALIST.STONER OUT Work Phone: [facility] 05-03-2011 meningococcal polysaccharide (groups A, C, Y and W-135) diphtheria toxoid conjugate vaccine (MCV4P) Berenice Zepeda FIELD ARTILLERY OPERATIONS SPECIALIST.STONER OUT Work Phone: [facility] 05-03-2011 tetanus toxoid, redu sloane diphtheria toxoid, and acellular pertussis vaccine, adsorbed Berenice Zepeda FIELD ARTILLERY OPERATIONS SPECIALIST.STONER OUT Work Phone: [facility] 03-29-2011 human papilloma viru s vaccine, quadrivalent Berenice Katelyn FIELD ARTILLERY OPERATIONS SPECIALIST.STONER OUT Work Phone: [facility] 11-26-2010 human papilloma viru s vaccine, quadrivalent Berenice Katelyn FIELD ARTILLERY OPERATIONS SPECIALIST.STONER OUT Work Phone: [facility] 09-28-2010 human papilloma viru s vaccine, quadrivalent Berenice Katelyn FIELD ARTILLERY OPERATIONS SPECIALIST.STONER OUT Work Phone: [facility] 04-30-1998 diphtheria, tetanus toxoids and acellular pertussis vaccine, unspecified formulation Berenice Zepeda FIELD ARTILLERY OPERATIONS SPECIALIST.STONER OUT Work Phone: [facility] 04-30-1998 measles, mumps and rubella virus vaccine Berenice Zepeda FIELD ARTILLERY OPERATIONS SPECIALIST.STONER OUT Work Phone: [facility] 04-30-1998 trivalent poliovirus vaccine, live, oral Berenice Katelyn FIELD ARTILLERY OPERATIONS SPECIALIST.STONER OUT Work Phone: [facility] 06-07-1994 diphtheria, tetanus toxoids and acellular pertussis vaccine, unspecified formulation Berenice Katelyn FIELD ARTILLERY OPERATIONS SPECIALIST.STONER OUT Work Phone: [facility] 06-07-1994 hepatitis B vaccine, pediatric or pediatric/adolescent dosage Berenice Katelyn FIELD ARTILLERY OPERATIONS SPECIALIST.STONER OUT Work Phone: [facility] 06-07-1994 trivalent poliovirus vaccine, live, oral Berenice Katelyn FIELD ARTILLERY OPERATIONS SPECIALIST.STONER OUT Work Phone: [facility] 03-01-1994 haemophilus influenz ae type b vaccine, conjugate unspecified formulation Berenice Katelyn FIELD ARTILLERY OPERATIONS SPECIALIST.STONER OUT Work Phone: [facility] 03-01-1994 hepatitis B vaccine, pediatric or pediatric/adolescent dosage Berenice Katelyn FIELD ARTILLERY OPERATIONS SPECIALIST.STONER OUT Work Phone: [facility] 03-01-1994 measles, mumps and rubella virus vaccine Berenice Katelyn FIELD ARTILLERY OPERATIONS SPECIALIST.STONER OUT Work Phone: [facility] 07-27-1993 diphtheria, tetanus toxoids and pertussis vaccine Berenice Katelyn FIELD ARTILLERY OPERATIONS SPECIALIST.STONER OUT Work Phone: [facility] 07-27-1993 haemophilus influenz ae type b vaccine, conjugate unspecified formulation Berenice Katelyn FIELD ARTILLERY OPERATIONS SPECIALIST.STONER OUT Work Phone: [facility] 07-27-1993 hepatitis B vaccine, pediatric or pediatric/adolescent dosage Berenice Katelyn FIELD ARTILLERY OPERATIONS SPECIALIST.STONER OUT Work Phone: [facility] 03-16-1993 diphtheria, tetanus toxoids and pertussis vaccine Berenice Katelyn FIELD ARTILLERY OPERATIONS SPECIALIST.STONER OUT Work Phone: [facility] 03-16-1993 haemophilus influenz ae type b vaccine, conjugate unspecified formulation Berenice Katelyn FIELD ARTILLERY OPERATIONS SPECIALIST.STONER OUT Work Phone: [facility] 03-16-1993 trivalent poliovirus vaccine, live, oral Berenice Katelyn FIELD ARTILLERY OPERATIONS SPECIALIST.STONER OUT Work Phone: [facility] 1992 diphtheria, tetanus toxoids and pertussis vaccine Berenice Katelyn FIELD ARTILLERY OPERATIONS SPECIALIST.STONER OUT Work Phone: [facility] 1992 haemophilus influenz ae type b vaccine, conjugate unspecified formulation Berenice Katelyn FIELD ARTILLERY OPERATIONS SPECIALIST.STONER OUT Work Phone: [facility] 1992 trivalent poliovirus vaccine, live, oral Berenice Katelyn FIELD ARTILLERY OPERATIONS SPECIALIST.STONER OUT Work Phone: [facility] Payers Date Payer Category Payer Blue [place] [employer] [id number] 2023 Unknown [id number] 2023 Private Health Insurance [employer] [id number] 2023 Unknown [id number] 2022 Self-pay 2022 Unknown [id number] 2019 Unknown [employer] C[employer] PPO OOS [id number] 2019-Present [phone] [id number] [place] [address] PPO [id number] 2019 Unknown [id number] 1992 Unknown [id number] 1259 1992 Unknown [id number] 1259 1992 Unknown [id number] 1259 1992 Unknown [id number] 1259 1992 Unknown [id number] 1259 1992 Unknown [id number] 1259 Unknown [id number] 531 Unknown [id number] 531 Social History Date Type Detail Facility [facility] smoking consumption unknown [facility] Start: 1990 Sex Assigned At Not on file [facility] Start: 01-15-2022 End: 10-17-2023 Tobacco smoking status SDIS Never smoked tobacco [facility] Start: 01-15-2022 End: 10-17-2023 Tobacco use and exposure Smokeless tobacco non-user [facility] Start: 01-15-2022 End: 08-23-2023 Alcohol intake Current drinker of alcohol (finding) [facility] Start: 01-15-2022 End: 07-25-2024 Alcohol intake [facility] Start: 01-12-2022 History SDOH Alcohol Frequency 2 [facility] Start: 01-12-2022 History SDOH Alcohol Std Drinks 1 [facility] Start: 01-15-2022 History SDOH Alcohol Comment occ. drink [facility] Start: 01-12-2022 History SDOH Social Connections Phone 5 [facility] Start: 01-12-2022 History SDOH Social Connections Get Together 4 [facility] Start: 01-12-2022 History SDOH Social Connections Living 7 [facility] Start: 01-12-2022 History SDOH Physica l Activity MPS 3 [facility] Start: 1990 Sex Assigned At Female [facility] Start: 01-12-2022 End: 07-25-2024 Social connection and isolation panel [facility] Do you belong to any clubs or organizations such as sikhism groups, unions, fraternal or athletic groups, or school groups? No [facility] Are you now , , , , never or living with a partner? Never [facility] How often to you hav e a drink containing alcohol? Monthly or less [facility] How many standard dr inks containing alcohol do you have on a typical day? 1 or 2 [facility] How often do you hav e 6 or more drinks on 1 occasion? Never [facility] How hard is it for y ou to pay for the very basics like food, housing, medical care, and heating Not hard at all [facility] Do you feel stress - tense, restless, nervous, or anxious, or unable to sleep at night because your mind is troubled all the time - these days [OSQ] Not at all [facility] (I/We) worried wheshelly er (my/our) food would run out before (I/we) got money to buy more. Never true [facility] Start: 01-12-2022 Gender identity Identifies as female gender (finding) [facility] Are you now , , , , never or living with a partner? Living with partner [facility] How hard is it for y ou to pay for the very basics like food, housing, medical care, and heating Not very hard [facility] Do you feel stress - tense, restless, nervous, or anxious, or unable to sleep at night because your mind is troubled all the time - these days [OSQ] To some extent [facility] The food that (I/we) bought just didn't last, and (I/we) didn't have money to get more. DK or Refused [facility] Start: 10-17-2023 End: 12-10-2024 Alcoholic beverage intake Ex-drinker (finding) [facility] Start: 10-17-2023 Alcohol Comment Caffeine intak e: 1cup coffee/ day [facility] Start: 09-14-2023 [facility] Goals Date Patient Goal Desired Activity /State Personal health goal Clinical Notes 01-08-2022 to 12-10-2024 Ana Costello MA - 12/10/2024 11:00 AM SLICK Paul - 11/08/2024 10:50 AM Gilberto Mesa LPN - 10/18/2024 1:30 PM Rosa Alvarez NP - 08/02/2024 3:40 PM ESTPatient Instructions Note Date & Type Note Facility 12-10-2024 History of Present illness Narrative Reason for Appointment: Patient ID: Caryl Zamarripa is a 34 y.o. female who presents for Routine Visit Patient presents today for Return OB appointment. MEDICATIONS Current Outpatient Medications Medication Instructions omeprazole OTC (PRILOSEC OTC) 20 mg, Daily before breakfast Vit-Fe Fumarate-FA ( 19) 29-1 MG chewable tablet 1 each, Oral, Daily ALLERGIES No Known Allergies PROBLEMS Active Ambulatory Problems Diagnosis Date Noted No Active Ambulatory Problems Resolved Ambulatory Problems Diagnosis Date Noted No Resolved Ambulatory Problems Past Medical History: Diagnosis Date History of chicken pox HISTORY PAST MEDICAL HISTORY SOCIAL HISTORY Past Medical History: Diagnosis Date History of chicken pox Social History Tobacco Use Smoking status: Never Smokeless tobacco: Never Vaping Use Vaping status: Never Used Substance Use Topics Alcohol use: Not Currently Comment: Caffeine intake: 1cup coffee/ day Drug use: Not Currently Types: Marijuana Comment: Patient reports not since finding out FAMILY HISTORY Family History Problem Relation Name Age of Onset Hypertension Father Diabetes Maternal Grandfather Heart attack Maternal Grandfather Hyperlipidemia Maternal Grandfather SURGICAL HISTORY Past Surgical History: Procedure Laterality Date STOMACH SURGERY 03/2022 gastric sleeve surgery REVIEW OF SYSTEMS Review of Systems: Review of Systems All other systems reviewed and are negative. OBJECTIVE Objective: Physical Exam Constitutional: Appearance: Normal appearance. She is well-developed. Genitourinary: Vulva normal. Cardiovascular: Rate and Rhythm: Normal rate and regular rhythm. Pulmonary: Effort: Pulmonary effort is normal. Breath sounds: Normal breath sounds. Abdominal: General: Bowel sounds are normal. There is no distension. Palpations: Abdomen is soft. Tenderness: There is no abdominal tenderness. There is no guarding or rebound. Musculoskeletal: General: No swelling. Normal range of motion. Right lower leg: No edema. Left lower leg: No edema. Neurological: Mental Status: She is alert and oriented to person, place, and time. Skin: General: Skin is warm and dry. Psychiatric: Mood and Affect: Mood normal. Behavior: Behavior normal. Vitals and nursing note reviewed. Exam conducted with a stone mason present. Vitals: Estimated body mass index is 32.24 kg/m as calculated from the following: Height as of 07/25/24: 5' 3 . Weight as of 11/08/24: 182 lb. BP: Patient's last menstrual period was 08/12/2024. ASSESSMENT & PLAN ICD-10-CM 1. Well woman exam with routine gynecological exam Z01.419 Pap Smear HPV DNA probe, amplified 2. Second trimester Z34.92 POCT urinalysis dipstick manually resulted 3. 17 weeks gestation of Z3A.17 4. Exposure to STD Z20.2 SURESWAB(R) ADVANCED VAGINITIS PLUS, TMA CHLAMYDIA TRACHOMATIS (GENITO/STI) Neisseria gonorrhea DNA probe, direct 5. Need for maternal serum alpha-protein (MSAFP) screening Z36.1 Alpha fetoprotein, maternal Alpha fetoprotein, maternal 6. Screening, , for anatomic survey Z36.89 US OB 14+ weeks anatomy scan Return OB/Annual Exam: Patient presents today for an annual exam/routine obstetrics appointment. Patient is currently 17w1d . Patient is doing well and states she has no complaints. Pap/cultures was obtained without difficulty and patient was given msAFP/Anatomy US order to have obtained. Patient requested the carrier screening at this visit. Pt was given the [facility]ITY order and advised she will have to have her MSAFP labs together. Orders Placed This Encounter Procedures HPV DNA probe, amplified US OB 14+ weeks anatomy scan CHLAMYDIA TRACHOMATIS (GENITO/STI) Neisseria gonorrhea DNA probe, direct Alpha fetoprotein, maternal POCT urinalysis dipstick manually resulted Follow Up: Patient is to return to our office in 4 weeks for routine OB appointment Documented by Ana Costello MA on behalf of: SLICK Matias documented in this encounter [facility] 11-08-2024 History of Present illness Narrative Reason for Appointment: Patient ID: Caryl Zamarripa is a 34 y.o. female who presents for Routine Visit Patient presents today for Return OB appointment. MEDICATIONS Current Outpatient Medications Medication Instructions omeprazole OTC (PRILOSEC OTC) 20 mg, Daily before breakfast ondansetron ODT (ZOFRAN-ODT) 4 mg, Oral, Every 6 hours PRN Vit-Fe Fumarate-FA ( 19) 29-1 MG chewable tablet 1 each, Oral, Daily ALLERGIES No Known Allergies PROBLEMS Active Ambulatory Problems Diagnosis Date Noted No Active Ambulatory Problems Resolved Ambulatory Problems Diagnosis Date Noted No Resolved Ambulatory Problems Past Medical History: Diagnosis Date History of chicken pox HISTORY PAST MEDICAL HISTORY SOCIAL HISTORY Past Medical History: Diagnosis Date History of chicken pox Social History Tobacco Use Smoking status: Never Smokeless tobacco: Never Vaping Use Vaping status: Never Used Substance Use Topics Alcohol use: Not Currently Comment: Caffeine intake: 1cup coffee/ day Drug use: Not Currently Types: Marijuana Comment: Patient reports not since finding out FAMILY HISTORY Family History Problem Relation Name Age of Onset Hypertension Father Diabetes Maternal Grandfather Heart attack Maternal Grandfather Hyperlipidemia Maternal Grandfather SURGICAL HISTORY Past Surgical History: Procedure Laterality Date STOMACH SURGERY 03/2022 gastric sleeve surgery REVIEW OF SYSTEMS Review of Systems: Review of Systems Constitutional: Negative. HENT: Negative. Eyes: Negative. Respiratory: Negative. Cardiovascular: Negative. Gastrointestinal: Negative. Genitourinary: Negative. Musculoskeletal: Negative. Skin: Negative. Neurological: Negative. All other systems reviewed and are negative. Hematological: Negative. Endocrine: Negative. Allergic/Immunologic: Negative. OBJECTIVE Objective: Physical Exam Constitutional: Appearance: Normal appearance. She is normal weight. HENT: Head: Normocephalic. Cardiovascular: Rate and Rhythm: Normal rate. Pulses: Normal pulses. Pulmonary: Effort: Pulmonary effort is normal. Breath sounds: Normal breath sounds. Abdominal: Palpations: Abdomen is soft. Musculoskeletal: General: Normal range of motion. Neurological: General: No focal deficit present. Mental Status: She is alert and oriented to person, place, and time. Psychiatric: Mood and Affect: Mood normal. Behavior: Behavior normal. Thought Content: Thought content normal. Judgment: Judgment normal. Vitals and nursing note reviewed. Vitals: Estimated body mass index is 32.24 kg/m as calculated from the following: Height as of 07/25/24: 5' 3 . Weight as of this encounter: 182 lb. BP: 100/60 Patient's last menstrual period was 08/12/2024. ASSESSMENT & PLAN ICD-10-CM 1. 12 weeks gestation of Z3A.12 POCT urinalysis dipstick manually resulted Return OB: Patient presents today for a routine obstetrics appointment. Patient is currently 12w4d . Patient states she is doing well but has complaints of being tired due to current . Patient has verbalizes frequent movement. Orders Placed This Encounter Procedures POCT urinalysis dipstick manually resulted Follow Up: Patient is to return to office in 4week for routine OB appointment. Documented by SLICK Matias on behalf of: Roscoe Diaz DO documented in this encounter [facility] 10-18-2024 History of Present illness Narrative Reason for Appointment: Patient ID: Caryl Zamarripa is a 34 y.o. female who presents for Amenorrhea Patient presents today for a Nurse OB Intake appointment. Patient is 9w4d with a Estimated Date of Delivery: 05/19/25 OB History Para Term AB Living 2 SAB IAB Ectopic Multiple Live Births # Outcome Date GA Lbr Daron/2nd Weight Sex Type Anes PTL Lv 2 Current 1 Current Medications: has a current medication list which includes the following prescription(s): omeprazole otc and ondansetron odt. Medical History: Active Ambulatory Problems Diagnosis Date Noted No Active Ambulatory Problems Resolved Ambulatory Problems Diagnosis Date Noted No Resolved Ambulatory Problems Past Medical History: Diagnosis Date History of chicken pox Family History Problem Relation Name Age of Onset Hypertension Father Diabetes Maternal Grandfather Heart attack Maternal Grandfather Hyperlipidemia Maternal Grandfather Social History Tobacco Use Smoking status: Never Smokeless tobacco: Never Vaping Use Vaping status: Never Used Substance Use Topics Alcohol use: Not Currently Comment: Caffeine intake: 1cup coffee/ day Drug use: Not Currently Types: Marijuana Comment: Patient reports not since finding out Past Surgical History: Procedure Laterality Date STOMACH SURGERY 03/2022 gastric sleeve surgery No Known Allergies Vitals: Estimated body mass index is 31.38 kg/m as calculated from the following: Height as of 07/25/24: 5' 3 . Weight as of this encounter: 177 lb 1.9 oz. BP: Patient's last menstrual period was 08/12/2024. Assessment/Plan Diagnoses and all orders for this visit: Missed menses - US OB transvaginal; Future - Type and screen; Future - ABO/Rh; Future - CBC and differential - Hemoglobin A1c - RPR - Rubella antibody, IgG - Hepatitis B surface antigen - Hepatitis C antibody - HIV-1 and HIV-2 antibodies - Urine culture - POCT , urine manually resulted - POCT urinalysis dipstick manually resulted , unspecified gestational age - Type and screen; Future - ABO/Rh; Future - CBC and differential - Hemoglobin A1c - RPR - Rubella antibody, IgG - Hepatitis B surface antigen - Hepatitis C antibody - HIV-1 and HIV-2 antibodies - Rapid drug screen, urine; Future Encounter for supervision of normal first in first trimester - Rapid drug screen, urine; Future Nausea and vomiting in - ondansetron ODT (Zofran-ODT) 4 MG disintegrating tablet; Take 1 tablet (4 mg) by mouth every 6 (six) hours if needed for nausea or vomiting Nurse Note: OB Intake: Patient presents today for first OB visit. Patients history has been reviewed in great detail including any potential risks. Patient signed consent forms and patient desires testing in both trimesters. Patient currently has no complaints and has been advised to drink 6-8 glasses of water a day, eat no raw or undercooked meat, and stay away from [facility]. Patient has also been advised to not change litter boxes and eat 6 small meals a day. Patient has been consulted regarding the do's and don'ts of . Patient was given labs and all questions and concerns were answered. Follow Up: Patient is to return in 4 weeks for routine OB appointment. Follow Up: Patient is to have labs drawn at directed and return to office for initial OB appointment with provider. Patient may call office as needed with any concerns or questions. Nurse Visit Completed by: Monika Mesa LPN documented in this encounter [facility] 08-02-2024 History of Present illness Narrative Images from the original note were not included. [address] , [address] [place], [address] P: [phone] F: [phone] HPI Historian of HPI: patient Caryl Zamarripa is a 33 y.o. female who presents today to the Urgent Care with the following complaints and denials which have been present for 8 day(s) C/O Denies Symptom Comments [x] [] Runny Nose [] [x] Difficulty Swallowing [] [x] Sore Throat [x] [] Cough [] [x] Ear Pain [] [x] Fever [] [x] Chills [x] [] Nasal Congestion [] [x] Myalgia [] [x] Sinus Pain [] [x] Sinus Pressure Additional Comments: pt has taken robitussin OTC medication with relief Pt has been coughing up yellowish phlegm. Pt would like to discuss with provider before any testing is done. ROS A complete system ROS was performed and negative aside from the pertinent positives noted in the HPI and PE. Visit Vitals BP 106/66 Pulse 88 Temp 96.8 F LMP 08/31/2023 SpO2 98% Unknown OB Status Having periods Smoking Status Never PHYSICAL EXAM Physical Exam Vitals reviewed. Constitutional: General: She is not in acute distress. Appearance: Normal appearance. HENT: Head: Normocephalic and atraumatic. Right Ear: Hearing, tympanic membrane, ear canal and external ear normal. Left Ear: Hearing, tympanic membrane, ear canal and external ear normal. Nose: Congestion present. Right Turbinates: Enlarged and swollen. Left Turbinates: Enlarged and swollen. Mouth/Throat: Lips: Redbird Smith. Mouth: Mucous membranes are moist. Pharynx: Oropharynx is clear. Uvula midline. Posterior oropharyngeal erythema present. Tonsils: No tonsillar exudate or tonsillar abscesses. Eyes: Extraocular Movements: Extraocular movements intact. Conjunctiva/sclera: Conjunctivae normal. Pupils: Pupils are equal, round, and reactive to light. Cardiovascular: Rate and Rhythm: Normal rate and regular rhythm. Pulses: Normal pulses. Heart sounds: Normal heart sounds. Pulmonary: Effort: Pulmonary effort is normal. No respiratory distress. Breath sounds: Normal breath sounds and air entry. No wheezing, rhonchi or rales. Musculoskeletal: General: Normal range of motion. Cervical back: Normal range of motion and neck supple. Skin: General: Skin is warm and dry. Findings: No rash. Neurological: General: No focal deficit present. Mental Status: She is alert and oriented to person, place, and time. Psychiatric: Mood and Affect: Mood normal. TREATMENT PLAN 1. Acute cough (Primary) New medication as directed. Acetaminophen or Ibuprofen for reduction of fever and pain. Increase fluids. Good handwashing. Discussed warning signs of worsening infection and when to report to ER. New toothbrush in 24 hours. Call office if symptoms have not started to improve within the next 72 hours. Patient verbalized understanding of instructions. - azithromycin (Zithromax) 250 MG tablet; Take 1 tablet (250 mg) by mouth Daily Take 2 tabs on day 1 and 1 tab on days 2-5 then stop Dispense: 6 tablet; Refill: 0 2. Chest congestion Will treat with ATBx given duration of sx. Medication, implications, and side effects discussed. Report any side effects to PCP immediately. Take with food. Change or sterilize toothbrush 24 hours after starting ATB. OTC meds symptomatically and push fluids. The patient will let us know if sx worsen, change, or fail to improve in the next 5-7 days. Signs/symptoms and red flags of when to seek emergent medical attention discussed. Patient expressed an understanding. - azithromycin (Zithromax) 250 MG tablet; Take 1 tablet (250 mg) by mouth Daily Take 2 tabs on day 1 and 1 tab on days 2-5 then stop Dispense: 6 tablet; Refill: 0 3. Bronchitis -Take medication as prescribed below to completion -cough and deep breathe -May use Tylenol/Ibuprofen for pain/fever -May use OTC medication such as cough syrups especially at night time for relief, pseudoephedrine for nasal congestion, and/or Zelda Pot or saline rinses. -Follow up with PCP in 1 week if no improvement or go to the ED for worsening of symptoms such as SOB or CP. Denies . - azithromycin (Zithromax) 250 MG tablet; Take 1 tablet (250 mg) by mouth Daily Take 2 tabs on day 1 and 1 tab on days 2-5 then stop Dispense: 6 tablet; Refill: 0 documented in this encounter [facility] 07-25-2024 History of Present illness Narrative General Surgery H&P Caryl Zamarripa 1990 Caryl Zamarripa is a 33 y.o. female presents for a colonoscopy. Pt presents today after noticing blood in her stool within the past month. She states that almost every time she has a BM she noticed blood for a few days. Now she has blood maybe once a week in her stools, brighter red, denies clots. Denies abdominal pain but does have issues with reflux after having a sleeve gastrectomy 2 years ago. She states the PPIs have helped. Denies family hx of colon cancer. Some changes in bowel habits being more constipation and straining. Denies hx of unplanned weight loss. Denies fevers, chills, or sweats. Denies nausea or vomiting. Last colonoscopy was never. Discussed need for possible internal hemorrhoid banding, patient understood risks and interested in proceeding. SUBJECTIVE: MEDICATIONS: ALLERGIES Current Outpatient Medications Medication Instructions multivitamin () 27-0.8 MG tablet 1 tablet, Oral, Daily omeprazole OTC (PRILOSEC OTC) 20 mg, Oral, Daily before breakfast, Do not crush, chew, or split. No Known Allergies PAST MEDICAL HISTORY: SOCIAL HISTORY SURGICAL HISTORY: Past Medical History: Diagnosis Date History of chicken pox Social History Tobacco Use Smoking status: Never Smokeless tobacco: Never Vaping Use Vaping status: Never Used Substance Use Topics Alcohol use: Not Currently Comment: Caffeine intake: 1cup coffee/ day Drug use: Not Currently Types: Marijuana Comment: Patient reports not since finding out Past Surgical History: Procedure Laterality Date STOMACH SURGERY 03/2022 gastric sleeve surgery Family History Problem Relation Name Age of Onset Hypertension Father Diabetes Maternal Grandfather Heart attack Maternal Grandfather Hyperlipidemia Maternal Grandfather No Known Allergies Past Surgical History: Procedure Laterality Date STOMACH SURGERY 03/2022 gastric sleeve surgery Tobacco Use: Low Risk (10/17/2023) Patient History Smoking Tobacco Use: Never Smokeless Tobacco Use: Never Passive Exposure: Not on file Alcohol Use: Not At Risk (07/19/2023) Re[facility] from [facility], [facility] AUDIT-C Frequency of Alcohol Consumption: Monthly or less Average Number of Drinks: 1 or 2 Frequency of Binge Drinking: Never Depression: Not at risk (06/29/2024) Received from [facility] PHQ-2 PHQ-2 score: 0 Physical Activity: Insufficiently Active (07/19/2023) Received from [facility], [facility] Exercise Vital Sign Days of Exercise per Week: 4 days Minutes of Exercise per Session: 30 min REVIEW OF SYMPTOMS: Review of Systems All other systems reviewed and are negative. 10 systems were reviewed. Positives noted above. Remainder are negative per CMS guidelines. OBJECTIVE: Visit Vitals LMP 08/31/2023 OB Status Smoking Status Never Physical Exam Vitals reviewed. General: AAOx3, NAD Head: atraumatic normocephalic Neck: trachea midline. No masses or lymphadenopathy Heart: Regular rate and rhythm Lungs: equal chest rise and fall, non labored breathing Abdomen: soft, nontender, and non distended Ext: motor 5/5 all extremities with no gross deformities Psych: alert and oriented, behavior appropriate ASSESSMENT AND PLAN: Assessment/Plan Diagnoses and all orders for this visit: Rectal bleeding - Ambulatory referral to General Surgery - bisacodyl (Dulcolax) 5 MG EC tablet; Take 1 tablet (5 mg) by mouth 1 time for 1 dose Do not crush, chew, or split. Take as detailed on clinic hand out for colonoscopy prep - polyethylene glycol, PEG, 3350 (Glycolax) 17 GM/SCOOP powder; Take 238 g by mouth 1 (one) time for 1 dose Take as detailed from clinic hand out for colonoscopy prep Plan: Patient is increased risk for colon cancer. Colonoscopy with possible internal hemorrhoid banding to be scheduled. Patient informed of the risks of procedure which include but not limited to bleeding, perforation, and risks of anesthesia. Patient understood risks and signed informed consent for the procedure under monitored anesthesia care. Handout for bowel prep provided in clinic. Patient was informed of the need for a ride home from the hospital and the need for someone to be with them for the following 24 hrs post procedure. Hemorrhoid instructions: Avoid sitting on the toilet for long periods of time Avoid straining during bowel movements Milk of magnesia 30 ml daily until first bowel movement Take stool softeners (colace) and Miralax as discussed to help with comfort with bowel movements Siiting in warm tub of water/Sitz bath 2-3 times a day: after sitz bath, apply witch edwar and large cotton ball to perianal area for 5 minutes and then apply topical Preparation H thinly to the area High fiber diet, ensure adequate water intake daily Topical Dibucaine ointment twice daily as needed for discomfort/pain Thank you, Alexandro Garner DO documented in this encounter [facility] 06-29-2024 Note HNO ID: [id number] Author: BERENICE ZEPEDA APRN.[facility] OUT Service: ? Author Type: Nurse Practitioner Type: Progress Notes Filed: 06/29/2024 13:25 Note Text: Caryl Zamarripa is a 33 year old female here today for follow-up regarding weight management. She would like to get back on phentermine Has tolerated well in the past Denies chest pain/pressure, palpitations, constipation Working on healthy lifestyle New job is less stressful but more sedentary Exercise: treadmill 4 days per week, some strength training 1-2 days per week Diet: Focus on more protein, lower carbs Last 10 Encounter Wt Readings: Date: Wt: 06/29/2024 75.8 kg (167 lb) 09/23/2023 76.2 kg (168 lb) 08/23/2023 77.6 kg (171 lb) 07/21/2023 80.1 kg (176 lb 8 oz) 07/06/2022 81.6 kg (180 lb) 01/15/2022 104.3 kg (230 lb) Body mass index is 29.58 kg/m?. PAST MEDICAL HISTORY Diagnosis Date GERD (gastroesophageal reflux disease) Prediabetes REVIEW OF SYSTEMS GENERAL: No weight loss, malaise or fevers RESPIRATORY: Negative for cough, hemoptysis, wheezing, COPD, dyspnea or shortness of breath CARDIOVASCULAR: Negative for chest pain, leg swelling, hypertension, CHF or palpitations PHYSICAL EXAMINATION: BP 101/68 (BP Site: Left Arm, BP Position: Sitting, BP Cuff Size: Large Adult) Pulse 65 Wt 75.8 kg (167 lb) LMP 08/08/2023 (Approximate) BMI 29.58 kg/m? General appearance: Well appearing, alert, in no acute distress, well-hydrated, well nourished. Lungs: Lungs clear to auscultation. No wheezing, rhonchi, rales. Heart: RRR without murmur, gallop, or rubs. No ectopy ASSESSMENT/PLAN: 1. Encounter for weight management - ICD9: V65.49, ICD10: Z76.89 (primary diagnosis) 2. Overweight - ICD9: 278.02, ICD10: E66.3 - Weight trending down - Continue working on healthy lifestyle - Denies chance of . Start phentermine. RTC in one month. CPE within the next 3 months. - PHENTERMINE 37.5 MG TABLET Berenice Zepeda APRN.[facility] 06-29-2024 History of Present illness Narrative Caryl Zamarripa is a 33 year old female here today for follow-up regarding weight management. She would like to get back on phentermine Has tolerated well in the past Denies chest pain/pressure, palpitations, constipation Working on healthy lifestyle New job is less stressful but more sedentary Exercise: treadmill 4 days per week, some strength training 1-2 days per week Diet: Focus on more protein, lower carbs Last 10 Encounter Wt Readings: Date: Wt: 06/29/2024 75.8 kg (167 lb) 09/23/2023 76.2 kg (168 lb) 08/23/2023 77.6 kg (171 lb) 07/21/2023 80.1 kg (176 lb 8 oz) 07/06/2022 81.6 kg (180 lb) 01/15/2022 104.3 kg (230 lb) Body mass index is 29.58 kg/m . PAST MEDICAL HISTORY Diagnosis Date GERD (gastroesophageal reflux disease) Prediabetes REVIEW OF SYSTEMS GENERAL: No weight loss, malaise or fevers RESPIRATORY: Negative for cough, hemoptysis, wheezing, COPD, dyspnea or shortness of breath CARDIOVASCULAR: Negative for chest pain, leg swelling, hypertension, CHF or palpitations PHYSICAL EXAMINATION: BP 101/68 (BP Site: Left Arm, BP Position: Sitting, BP Cuff Size: Large Adult) Pulse 65 Wt 75.8 kg (167 lb) LMP 08/08/2023 (Approximate) BMI 29.58 kg/m General appearance: Well appearing, alert, in no acute distress, well-hydrated, well nourished. Lungs: Lungs clear to auscultation. No wheezing, rhonchi, rales. Heart: RRR without murmur, gallop, or rubs. No ectopy ASSESSMENT/PLAN: 1. Encounter for weight management - ICD9: V65.49, ICD10: Z76.89 (primary diagnosis) 2. Overweight - ICD9: 278.02, ICD10: E66.3 - Weight trending down - Continue working on healthy lifestyle - Denies chance of . Start phentermine. RTC in one month. CPE within the next 3 months. - PHENTERMINE 37.5 MG TABLET Berenice Zepeda APRN.CNP documented in this encounter [facility] 03-06-2024 Telephone encounter Note Order formatted Please advise [facility] 03-06-2024 Miscellaneous Notes Order formatted Please advise documented in this encounter [facility] 09-23-2023 Note HNO ID: [id number] Author: BERENICE ZEPEDA APRN.CNP Service: ? Author Type: Nurse Practitioner Type: Progress Notes Filed: 09/23/2023 15:52 Note Text: VIRTUAL VISIT PROGRESS NOTE This is a virtual visit using [employer] Video Visit. It required patient-provider interaction for the medical decision making as documented below. I have communicated my name and active licensure. The patient's identity and physical location were verified at the time of this visit. Either the patient or their legal agricultural sales representative has been informed of the risks and benefits of -- and alternatives to -- treatment through a remote evaluation and consents to proceed with the evaluation remotely. Caryl Zamarripa is a 32 year old female seen for weight management. Patient presents with: Recheck: Patient presents for a virtual follow up regarding weight management. She has completed 2 months of the Adipex and has lost a total of 10 lbs. She continues exercise 3 days per week to include weight training and the treadmill. She has been watching her portions when eating. HISTORY REVIEWED (electronic chart updated): PAST MEDICAL HISTORY Diagnosis Date GERD (gastroesophageal reflux disease) Prediabetes PAST SURGICAL HISTORY Procedure Laterality Date PT ED BARIATRIC AND METABOLIC gastric sleeve 03/2022 FAMILY HISTORY Problem Relation Age of Onset Asthma Mother Hypertension Father Hyperlipidemia Father Asthma Sister Arthritis Sister Social History Tobacco Use Smoking status: Never Smokeless tobacco: Never Vaping Use Vaping Use: Never used Substance Use Topics Alcohol use: Yes Alcohol/week: 1.3 standard drinks of alcohol Types: 1 Martini/Manhattan Drinks per week Comment: occ. drink Drug use: Never Current Outpatient Medications Medication Sig Omeprazole Magnesium (ACID MARKETING COMMUNICATION MANAGER, OMEPRAZOLE,) 20 mg cpDR No current facility-administered medications for this visit. ALLERGIES No Known Allergies REVIEW OF SYSTEMS: As noted in HPI PHYSICAL EXAMINATION: VIDEO EXAM: (if completed, performed via video enabled technology) GENERAL: alert and appropriate, in no distress, well-hydrated, well nourished, and happy, smiling, interactive RESPIRATORY: breathing non-labored NEUROLOGIC: no obvious deficit ASSESSMENT: (Z76.89) Encounter for weight management (E66.3) Overweight (BMI 25.0-29.9) PLAN: Weight decreasing Continue behavioral modification Continue phentermine There are no Patient Instructions on file for this visit. Berenice Zepeda APRN.[facility] 09-23-2023 History of Present illness Narrative VIRTUAL VISIT PROGRESS NOTE This is a virtual visit using [employer] Video Visit. It required patient-provider interaction for the medical decision making as documented below. I have communicated my name and active licensure. The patient's identity and physical location were verified at the time of this visit. Either the patient or their legal agricultural sales representative has been informed of the risks and benefits of -- and alternatives to -- treatment through a remote evaluation and consents to proceed with the evaluation remotely. Caryl Zamarripa is a 32 year old female seen for weight management. Patient presents with: Recheck: Patient presents for a virtual follow up regarding weight management. She has completed 2 months of the Adipex and has lost a total of 10 lbs. She continues exercise 3 days per week to include weight training and the treadmill. She has been watching her portions when eating. HISTORY REVIEWED (electronic chart updated): PAST MEDICAL HISTORY Diagnosis Date GERD (gastroesophageal reflux disease) Prediabetes PAST SURGICAL HISTORY Procedure Laterality Date PT ED BARIATRIC AND METABOLIC gastric sleeve 03/2022 FAMILY HISTORY Problem Relation Age of Onset Asthma Mother Hypertension Father Hyperlipidemia Father Asthma Sister Arthritis Sister Social History Tobacco Use Smoking status: Never Smokeless tobacco: Never Vaping Use Vaping Use: Never used Substance Use Topics Alcohol use: Yes Alcohol/week: 1.3 standard drinks of alcohol Types: 1 Martini/Manhattan Drinks per week Comment: occ. drink Drug use: Never Current Outpatient Medications Medication Sig Omeprazole Magnesium (ACID MARKETING COMMUNICATION MANAGER, OMEPRAZOLE,) 20 mg cpDR No current facility-administered medications for this visit. ALLERGIES No Known Allergies REVIEW OF SYSTEMS: As noted in HPI PHYSICAL EXAMINATION: VIDEO EXAM: (if completed, performed via video enabled technology) GENERAL: alert and appropriate, in no distress, well-hydrated, well nourished, and happy, smiling, interactive RESPIRATORY: breathing non-labored NEUROLOGIC: no obvious deficit ASSESSMENT: (Z76.89) Encounter for weight management (E66.3) Overweight (BMI 25.0-29.9) PLAN: Weight decreasing Continue behavioral modification Continue phentermine There are no Patient Instructions on file for this visit. Berenice Zepeda APRN.[facility]GI documented in this encounter [facility] 08-23-2023 Note HNO ID: [id number] Author: BERENICE ZEPEDA APRN.CNP Service: ? Author Type: Nurse Practitioner Type: Progress Notes Filed: 08/25/2023 12:23 Note Text: Caryl Zamarripa is a 32 year old female here today for weight management. She started on phentermine one month(s) ago. Tolerating well without AE. Going to the gym for exercise and working to maintain a healthy diet. Last 6 Encounter Wt Readings: Date: Wt: 08/23/2023 77.6 kg (171 lb) 07/21/2023 80.1 kg (176 lb 8 oz) 07/06/2022 81.6 kg (180 lb) 01/15/2022 104.3 kg (230 lb) Past medical, family, social history reviewed and updated Medications - prescribed and OTC verified and updated. Allergies verified and updated REVIEW OF SYSTEMS GENERAL: Intentional weight loss. No fatigue or fever. RESPIRATORY: Negative for cough, hemoptysis, wheezing, COPD, dyspnea or shortness of breath CARDIOVASCULAR: Negative for chest pain, leg swelling, hypertension, CHF or palpitations PHYSICAL EXAMINATION: BP 121/77 Pulse (!) 54 Wt 77.6 kg (171 lb) LMP 08/08/2023 (Approximate) BMI 29.85 kg/m? General appearance: Well appearing, alert, in no acute distress, well-hydrated, well nourished. Lungs: Lungs clear to auscultation. No wheezing, rhonchi, rales. Heart: RRR without murmur, gallop, or rubs. No ectopy ASSESSMENT/PLAN: 1. Overweight (BMI 25.0-29.9) - ICD9: 278.02, ICD10: E66.3 (primary diagnosis) 2. Encounter for weight management - ICD9: V65.49, ICD10: Z76.89 - Weight decreasing. Continue behavioral and pharmacologic intervention. - PHENTERMINE 37.5 MG TABLET Berenice Zepeda APRN.GIORGI [facility] 07-21-2023 Note HNO ID: [id number] Author: Berenice Zepeda APRN.[employer] [employer] Service: ? Author Type: Nurse Practitioner Type: Progress Notes Filed: 07/22/2023 10:16 AM Note Text: Caryl Zamarripa is a 32 year old female here today for review of established medical problems as well as comprehensive physical examination. Obesity S/p gastric sleeve surgery in 03/2022 at [facility] in [place] about 70lb, has reached plateau Gym 4 days per week with cardio (treadmill, elliptical) Maybe not enough water Tries to focus on more protein, lower carbs Last 10 Encounter Wt Readings: Date: Wt: 07/21/2023 80.1 kg (176 lb 8 oz) 07/06/2022 81.6 kg (180 lb) 01/15/2022 104.3 kg (230 lb) [facility] HM needs: Hepatitis B Vaccine(1 of 3 - 3-dose series) Never done Depression Assessment Never done HPV Testing Never done PAST MEDICAL HISTORY Diagnosis Date GERD (gastroesophageal reflux disease) Prediabetes PAST SURGICAL HISTORY Procedure Laterality Date PT ED BARIATRIC AND METABOLIC gastric sleeve 03/2022 ALLERGIES Patient has no known allergies. 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 BMI 30.81kg/m2 FAMILY HISTORY Problem Relation Age of Onset Asthma Mother Hypertension Father Hyperlipidemia Father Asthma Sister Arthritis Sister Social History Tobacco Use Smoking status: Never Smokeless tobacco: Never Vaping Use Vaping Use: Never used Substance Use Topics Alcohol use: Yes Alcohol/week: 1.3 standard drinks of alcohol Types: 1 Martini/Manhattan Drinks per week Comment: occ. drink Drug use: Never REVIEW OF SYSTEMS GENERAL: Negative for malaise, fever, Positive for intentional weight loss HEENT: Negative for frequent or significant headaches, No changes in hearing or vision, no nose bleeds or other nasal problems NECK: Negative for lumps, goiter, pain and significant neck swelling RESPIRATORY: Negative for cough, hemoptysis, wheezing, COPD, dyspnea or shortness of breath CARDIOVASCULAR: Negative for chest pain, leg swelling, hypertension, CHF or palpitations GI: No nausea, vomiting, or diarrhea : No history of dysuria, frequency or incontinence HEAD CONCIERGE: Negative for abnormal vaginal bleeding, abnormal vaginal discharge MUSCULOSKELETAL: Negative for joint pain or swelling, back pain or muscle pain SKIN: Negative for lesions, rash, and itching PSYCH: Negative for sleep disturbance, mood disorder and recent psychosocial stressors HEMATOLOGY/LYMPHOLOGY: Negative for prolonged bleeding, bruising easily or swollen nodes ENDOCRINE: Negative for cold or heat intolerance, polyuria, polydipsia and goiter NEURO: No history of headaches, syncope, paralysis, seizures or tremors PHYSICAL EXAMINATION: BP 112/74 Pulse 60 Ht 161.2 cm (5' 3.47 ) Wt 80.1 kg (176 lb 8 oz) LMP 07/09/2023 (Approximate) BMI 30.81 kg/m? General appearance: Well appearing, alert, in no acute distress, well-hydrated, well nourished. Skin: Skin color, texture, turgor normal, no suspicious rashes or lesions Head: Normocephalic, no masses, lesions, tenderness or abnormalities Eyes: Anicteric sclera. Pupils are equally round and reactive to light. Extraocular movements are intact. Ears: External ears normal, canals clear Nose/Sinuses: Nares normal, septum midline, mucosa normal, no drainage or sinus tenderness Oropharynx: Lips, mucosa, and tongue normal, teeth and gums normal, oropharynx normal Neck: Supple, no adenopathy; thyroid symmetric, normal size, no bruits Back: Normal exam Lungs: Lungs clear to auscultation. No wheezing, rhonchi, rales. Heart: RRR without murmur, gallop, or rubs. No ectopy Abdomen: Normal abdominal exam, Abdomen soft, non-tender. Bowel sounds normal. No masses, organomegaly Extremities: No deformities, edema, skin discoloration, clubbing or cyanosis. Good capillary refill. Musculoskeletal: No joint swelling, deformity, or tenderness Peripheral pulses: Normal Neuro: Gait normal. Reflexes normal and symmetric. Sensation grossly intact. Breast/Pelvic: Per HEAD CONCIERGE ASSESSMENT/PLAN: 1. Routine adult health maintenance - ICD9: V70.0, ICD10: Z00.00 (primary diagnosis) - Counseled on healthy diet and regular exercise - Calcium intake with supplements or by diet of 1000 mg/day for under 50, 3919-6118 mg/day for 50+ - Discussed need and benefit for weight loss. BMI 30.81 kg/(m2) - HGB A1C - COMP METABOLIC PANEL - LIPID PANEL BASIC - CBC + DIFF 2. IFG (impaired fasting glucose) - ICD9: 790.21, ICD10: R73.01 - Due for routine labs. Check A1c. - HGB A1C 3. Encounter for weight management - ICD9: V65.49, ICD10: Z76.89 4. Class 1 obesity due to excess calories with body mass index (BMI) of 30.0 to 30.9 in adult, unspecified whether serious comorbidity present - (more content not included)... [facility] 07-21-2023 History of Present illness Narrative Caryl Zamarripa is a 32 year old female here today for review of established medical problems as well as comprehensive physical examination. Obesity S/p gastric sleeve surgery in 03/2022 at [facility] in [place] about 70lb, has reached plateau Gym 4 days per week with cardio (treadmill, elliptical) Maybe not enough water Tries to focus on more protein, lower carbs Last 10 Encounter Wt Readings: Date: Wt: 07/21/2023 80.1 kg (176 lb 8 oz) 07/06/2022 81.6 kg (180 lb) 01/15/2022 104.3 kg (230 lb) [facility] control needs: Hepatitis B Vaccine(1 of 3 - 3-dose series) Never done Depression Assessment Never done HPV Testing Never done PAST MEDICAL HISTORY Diagnosis Date GERD (gastroesophageal reflux disease) Prediabetes PAST SURGICAL HISTORY Procedure Laterality Date PT ED BARIATRIC AND METABOLIC gastric sleeve 03/2022 ALLERGIES Patient has no known allergies. 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 BMI 30.81kg/m2 FAMILY HISTORY Problem Relation Age of Onset Asthma Mother Hypertension Father Hyperlipidemia Father Asthma Sister Arthritis Sister Social History Tobacco Use Smoking status: Never Smokeless tobacco: Never Vaping Use Vaping Use: Never used Substance Use Topics Alcohol use: Yes Alcohol/week: 1.3 standard drinks of alcohol Types: 1 Martini/Manhattan Drinks per week Comment: occ. drink Drug use: Never REVIEW OF SYSTEMS GENERAL: Negative for malaise, fever, Positive for intentional weight loss HEENT: Negative for frequent or significant headaches, No changes in hearing or vision, no nose bleeds or other nasal problems NECK: Negative for lumps, goiter, pain and significant neck swelling RESPIRATORY: Negative for cough, hemoptysis, wheezing, COPD, dyspnea or shortness of breath CARDIOVASCULAR: Negative for chest pain, leg swelling, hypertension, CHF or palpitations GI: No nausea, vomiting, or diarrhea : No history of dysuria, frequency or incontinence HEAD CONCIERGE: Negative for abnormal vaginal bleeding, abnormal vaginal discharge MUSCULOSKELETAL: Negative for joint pain or swelling, back pain or muscle pain SKIN: Negative for lesions, rash, and itching PSYCH: Negative for sleep disturbance, mood disorder and recent psychosocial stressors HEMATOLOGY/LYMPHOLOGY: Negative for prolonged bleeding, bruising easily or swollen nodes ENDOCRINE: Negative for cold or heat intolerance, polyuria, polydipsia and goiter NEURO: No history of headaches, syncope, paralysis, seizures or tremors PHYSICAL EXAMINATION: BP 112/74 Pulse 60 Ht 161.2 cm (5' 3.47 ) Wt 80.1 kg (176 lb 8 oz) LMP 07/09/2023 (Approximate) BMI 30.81 kg/m General appearance: Well appearing, alert, in no acute distress, well-hydrated, well nourished. Skin: Skin color, texture, turgor normal, no suspicious rashes or lesions Head: Normocephalic, no masses, lesions, tenderness or abnormalities Eyes: Anicteric sclera. Pupils are equally round and reactive to light. Extraocular movements are intact. Ears: External ears normal, canals clear Nose/Sinuses: Nares normal, septum midline, mucosa normal, no drainage or sinus tenderness Oropharynx: Lips, mucosa, and tongue normal, teeth and gums normal, oropharynx normal Neck: Supple, no adenopathy; thyroid symmetric, normal size, no bruits Back: Normal exam Lungs: Lungs clear to auscultation. No wheezing, rhonchi, rales. Heart: RRR without murmur, gallop, or rubs. No ectopy Abdomen: Normal abdominal exam, Abdomen soft, non-tender. Bowel sounds normal. No masses, organomegaly Extremities: No deformities, edema, skin discoloration, clubbing or cyanosis. Good capillary refill. Musculoskeletal: No joint swelling, deformity, or tenderness Peripheral pulses: Normal Neuro: Gait normal. Reflexes normal and symmetric. Sensation grossly intact. Breast/Pelvic: Per HEAD CONCIERGE ASSESSMENT/PLAN: 1. Routine adult health maintenance - ICD9: V70.0, ICD10: Z00.00 (primary diagnosis) - Counseled on healthy diet and regular exercise - Calcium intake with supplements or by diet of 1000 mg/day for under 50, 2011-5529 mg/day for 50+ - Discussed need and benefit for weight loss. BMI 30.81 kg/(m^2) - HGB A1C - COMP METABOLIC PANEL - LIPID PANEL BASIC - CBC + DIFF 2. IFG (impaired fasting glucose) - ICD9: 790.21, ICD10: R73.01 - Due for routine labs. Check A1c. - HGB A1C 3. Encounter for weight management - ICD9: V65.49, ICD10: Z76.89 4. Class 1 obesity due to excess calories with body mass index (BMI) of 30.0 to 30.9 in adult, unspecified whether serious comorbidity present - ICD9: 278.00, V85.30, ICD10: E66.09, Z68.30 - Stable over the last year - Behavioral and pharmacological intervention - Discussed proper administration and potential AE of phentermine. Follow up in one month. Sooner if needed. Encouraged to begin strength training. - PHENTERMINE 37.5 MG TABLET 5. Encounter for immunization - ICD9: V03.89, ICD10: Z23 - TDAP VACCINE, AGE 7+ YR (ADACEL, BOOSTRIX) 6. Immunity status testing - ICD9: V72.61, ICD10: Z01.84 - HEP B SURF AB Berenice Zepeda APRN.STONER OUT ' documented in this encounter [facility] 06-29-2023 Miscellaneous Notes Sent Valtrex 1 gram twice/day for 2 days with one refill. High stress can cause cold sores? How is your stress level? documented in this encounter [facility] 01-15-2022 Instructions Dasha Lujan MD - 01/15/2022 12:05 PM EDT -Get Hgba1c and K level checked in the near future. -Encourage you to lose 2 lbs/week as a healthy way via diet and exercise -Should you have any questions or concerns, do not hesitate to contact me anytime via my chart (Dr.Sunir Lujan) documented in this encounter [facility] 01-15-2022 History of Present illness Narrative Caryl Zamarripa is a 31 year old female who presents with Establish Care -Pt is here to Establish Care. 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 Says all labs checked out fine per pt discussion. Pt says she did get her thyroid lab work checked 4 years ago, and all checked out fine. Thyroid blood work was also checked recently. -OARRS reviewed: clean -Product Director: deferred seeing one at this time as pt is undergoing gastric sleeve evaluation (Bariatric Surgery) at [facility]. Pt says that she just needs to get PFT done and clearance in the near future to get the procedure done. -Goal weight she has set for herself: under 200 lbs short term goal per pt discussion. -Pt does exercise by walking for 30 minutes four days/week. Does not do any weight resistance training. -Pt did not get the Covid vaccine. -Pt denies chest pain, SOB, or palpitations. -From my standpoint, I feel she is cleared for surgery. Form filled out that she is cleared for surgery. -She showed me all the labs and diagnostic tests that were done on her I pad, which I reviewed with the pt in detail. Glucose was high at 123 mg/dL. Will have her get hgba1c level checked to rule out prediabetes. -Had labs done on 11/06/2021. -US of liver revealed fatty liver but LFT were normal. -Voices no other complaints. REVIEW OF SYSTEM: See HPI for details. No past medical history on file. No past surgical history on file. ALLERGIES ALLERGIES No Known Allergies MEDICATIONS No current outpatient medications on file. No current facility-administered medications for this visit. No family history on file. Social History Tobacco Use Smoking status: Never Smoker Smokeless tobacco: Never Used Vaping Use Vaping Use: Never used Substance Use Topics Alcohol use: Yes Alcohol/week: 1.3 standard drinks Types: 1 Martini/Manhattan Drinks per week Comment: occ. drink Drug use: Never PHYSICAL EXAM: BP 124/86 Pulse 65 Temp (Src) 98 (Temporal) Resp 16 Ht 5' 4 (1.63m) Wt 230 lb (104.3kg) LMP 01/08/2022 BMI 39.46 kg/(m^2). GENERAL APPEARANCE: Alert, cooperative, pleasant, in no acute distress, no conversational dyspnea HEENT: Extraocular movements are intact. no pallor, no icterus NECK: No cervical lymphadenopathy or tenderness appreciated HEART: regular rate and rhythm, without murmur LUNGS: clear to auscultation, without rales or wheeze, good air exchange ADBOMEN:soft, nondistended, nontender, no hepatosplenomegaly or masses, BS are present, no rebound or guarding appreciated, obese NEURO: No focal deficits PSYCH: no suicide thoughts ASSESSMENT/PLAN: (Z01.818) Preoperative clearance (primary encounter diagnosis) -Cleared for bariatric surgery from my standpoint. (E66.9) Obesity (BMI 30-39.9) -Encouraged her to lose 2 lbs/week as a healthy way via diet and exercise -Going via the process to get Bariatric Surgery done at [facility]. (R73.9) Blood glucose elevated Plan: HGB A1C (E87.5) Hyperkalemia Plan: POTASSIUM BLD -Will have her get K level rechecked. (K76.0) Hepatic steatosis -LFT were normal. -Encourage weight reduction and avoid alcohol and tylenol as much as possible. -Will continue to monitor LFT. Dasha Lujan MD documented in this encounter [facility] 01-08-2022 Miscellaneous Notes Will advise on Tuesday when he returns Patient calling stating Dr Lujan agreed to take her into his practice but no documentation found in patient chart. Please advise. documented in this encounter [facility] Evaluation note Diagnosis Preoperative clearance- Primary Preoperative examination, unspecified Obesity (BMI 30-39.9) Obesity, unspecified Blood glucose elevated Other abnormal glucose Hyperkalemia Hyperpotassemia Hepatic steatosis Other chronic nonalcoholic liver disease [facility] Work Phone: Evaluation note* Diagnosis Routine adult health maintenance- Primary Routine general medical examination at a health care facility IFG (impaired fasting glucose) Impaired fasting glucose Encounter for weight management Class 1 obesity due to excess calories with body mass index (BMI) of 30.0 to 30.9 in adult, unspecified whether serious comorbidity present Encounter for immunization Need for other specified prophylactic vaccination against single bacterial disease Immunity status testing Antibody response examination [facility] Diagnosis Encounter for weight management Overweight (BMI 25.0-29.9) Overweight [facility] Diagnosis Encounter for weight management- Primary Overweight [facility] Diagnosis Rectal bleeding- Primary Hemorrhage of rectum and anus [facility] Diagnosis Acute cough- Primary Chest congestion Other symptoms involving respiratory system and chest Bronchitis Bronchitis, not specified as acute or chronic documented in this encounter [facility]* Diagnosis Missed menses , unspecified gestational age Encounter for supervision of normal first in first trimester Nausea and vomiting in Unspecified vomiting of , unspecified as to episode of care documented in this encounter [facility]* Diagnosis 12 weeks gestation of documented in this encounter [facility]* Diagnosis Well woman exam with routine gynecological exam Routine gynecological examination Second trimester state, incidental 17 weeks gestation of Exposure to STD Need for maternal serum alpha-protein (MSAFP) screening Screening, , for anatomic survey Encounter for anatomic survey documented in this encounter [facility] Summary Purpose Family History No Family History Records FoundNo Family History Records FoundNo Family History Records FoundNo Family History Records Found Advance Directives Advance Directive Response Recorded Date/ Time Advance Directives No June 10, 2022 10:56am Chief Complaint and Reason for Visit Chief Complaint Z98.84;R60.9 Reason for Referral Specialty Diagnoses / Procedures Referred By Zachery kenyon Referred To Contact Diagnoses Encounter for weight management Class 1 obesity due to excess calories with body mass index (BMI) of 30.0 to 30.9 in adult, unspecified whether serious comorbidity present Berenice Zepeda, BRETT.STONER OUT [address] [place] [address] Referral ID Status Reason Start Date Expiration Date Visits Re quested Visits Authorized [id number] Closed 1 1 Specialty Diagnoses / Procedures Referred By Zachery kenyon Referred To Contact Diagnoses Encounter for weight management Overweight (BMI 25.0-29.9) Berenice Zepeda, BRETT.STONER OUT [address] [place] [address] Referral ID Status Reason Start Date Expiration Date Visits Re quested Visits Authorized [id number] Closed 1 1 Additional Source Comments Source Comments (unrecognize d section and content) In the event this informatio n is protected by the Federal Confidentiality of Alcohol and Drug Abuse Patient Records regulations: The Federal rules restrict any use of the information to criminally investigate or prosecute any alcohol or drug abuse patient.[facility] the event this information is protected by the Federal Confidentiality of Alcohol and Drug Abuse Patient Records regulations: The Federal rules restrict any use of the information to criminally investigate or prosecute any alcohol or drug abuse patient.[facility] the event this information is protected by the Federal Confidentiality of Alcohol and Drug Abuse Patient Records regulations: The Federal rules restrict any use of the information to criminally investigate or prosecute any alcohol or drug abuse patient.[facility] the event this information is protected by the Federal Confidentiality of Alcohol and Drug Abuse Patient Records regulations: The Federal rules restrict any use of the information to criminally investigate or prosecute any alcohol or drug abuse patient.[facility] the event this information is protected by the Federal Confidentiality of Alcohol and Drug Abuse Patient Records regulations: The Federal rules restrict any use of the information to criminally investigate or prosecute any alcohol or drug abuse patient.[facility] the event this information is protected by the Federal Confidentiality of Alcohol and Drug Abuse Patient Records regulations: The Federal rules restrict any use of the information to criminally investigate or prosecute any alcohol or drug abuse patient.[facility] the event this information is protected by the Federal Confidentiality of Alcohol and Drug Abuse Patient Records regulations: The Federal rules restrict any use of the information to criminally investigate or prosecute any alcohol or drug abuse patient.[facility] Reason for Visit (unrecogniz ed section and content) Reason Comments Patient Question Reason Comments Establish Care Reason Comments Physical Reason Comments Recheck Patient presents for a virtual follow up regarding weight management. She has completed 2 months of the Adipex and has lost a total of 10 lbs. She continues exercise 3 days per week to include weight training and the treadmill. She has been watching her portions when eating. Reason Comments Follow Up Reason Comments Colonoscopy Pt presents today af ter noticing blood in her stool within the past month. She states that almost every time she has a BM she noticed blood. She states that the blood does fill the toilet paper. She admits to abdominal pain. She denies changes in bowel movements. She denies any family hx of colon cancer. Last colonoscopy was never. Specialty Diagnoses / Procedures Referred By Zachery kenyon Referred To Contact General Surgery Diagnoses Rectal bleeding Procedures NM OFFICE/OUTPATIENT NEW HIGH MDM Sina Garner DO [address] [facility] [address] [place] [address] Phone: tel: fax: Sina Garner DO [address] [facility] [address] [place] [address] Phone: tel: fax: Referral ID Status Reason Start Date Expiration Date V isits Requested Visits Authorized [id number] Closed Specialty Services Required 07/11/2024 01/07/2025 1 1 Reason Comments Amenorrhea Reason Comments Routine Visit Care Teams (unrecognized sec tion and content) Air Export Operations Agent Relationship Specialty [place] [address] [place] [address] PCP - General Internal Medicine 01/11/22 Team Status: Inactive Member Role Status Dates Dasha Lujan MD Primary Care Provider Active Reena Breaux APRN [employer]YING SQUAD SALESPERSON-C Attending Provider Activ e Team Status: Active Member Role Status Dates Dasha Lujan MD Primary Care Provider Active [employer] Operations Agent Relationship Specialty [place] [address] [place] [address] PCP - General Internal Medicine 01/11/22 Air Export Operations Agent Relationship Specialty [place] [address] [place] [address] PCP - General Internal Medicine 01/11/22 Air Export Operations Agent Relationship Specialty [place] [address] [place] [address] PCP - General Internal Medicine 01/11/22 Air Export Operations Agent Relationship Specialty [place] [address] [place] [address] PCP - General Internal Medicine 01/11/22 Air Export Operations Agent Relationship Specialty [place] [address] [place] [address] PCP - General Internal Medicine 01/11/22 Air Export Operations Agent Relationship Specialty Start Date End Date Unallocated, Ebenezer Pate MD [facility] [place] [address] PCP - General Family Medicine 10/17/23 Air Export Operations Agent Relationship Specialty Start Date End Date Unallocated, Ebenezer Pate MD [facility] [place] [address] PCP - General Family Medicine 10/17/23 Air Export Operations Agent Relationship Specialty Start Date End Date Unallocated, Ebenezer Pate MD [facility] [place] [address] PCP - General Family Medicine 10/17/23 Air Export Operations Agent Relationship Specialty Start Date End Date Unallocated, Ebenezer Pate MD [facility] [address] [place] [address] PCP - General Family Medicine 10/17/23 Air Export Operations Agent Relationship Specialty Start Date End Date Unallocated, Ebenezer Pate MD [facility] [address] [place] [address] PCP - General Family Medicine 10/17/23 Air Export Operations Agent Relationship Specialty Start Date End Date Unallocated, [place] [address] PCP - General Family Medicine 10/17/23 Edu Alvarez, FLYING SQUAD SALESPERSON [address] [place] [address] PCP - [employer] 09/22/24 Air Export Operations Agent Relationship Specialty Start Date End Date Unallocated, Ebenezer Pate MD [address] [place] [address] PCP - General Family Medicine 10/17/23 Edu Alvarez NP [address] [place], [place] [id number] PCP - [employer] 09/22/24 Air Export Operations Agent Relationship Specialty Start Date End Date Unallocated, Ebenezer Pate MD [address] [place] [address] PCP - General Family Medicine 10/17/23 Edu Alvarez NP [address] [place], [place] [id number] PCP - [employer] 09/22/24 [employer] Export Operations Agent Relationship Specialty Start Date End Date Unallocated, Ebenezer Pate MD [address] [place] [address] PCP - General Family Medicine 10/17/23 Edu Alvarez NP [address] [place], [place] [id number] PCP - [employer] 09/22/24 INFORMATION SOURCE (unrecogn ized section and content) DATE CREATED AUTHOR 01/16/2022 [facility] DATE CREATED AUTHOR AUTHOR'S ORGANIZ ATION 10/18/2022 [facility] DATE CREATED AUTHOR AUTHOR'S ORGANIZ ATION 07/01/2024 [facility] DATE CREATED AUTHOR AUTHOR'S ORGANIZ ATION 12/10/2024 [facility] EPIC Goals (unrecognized section and content) Goals may be documented in a n alternate section FOR RECORDS PERTAINING TO PATIENTS WHO ARE OR HAVE BEEN ENROLLED IN A CHEMICAL DEPENDENCY/SUBSTANCEABUSE PROGRAM, SOME INFORMATION MAY BE OMITTED. This clinical summary was aggregated from multiple sources. Caution should be exercised in using it in the provision of clinical care. This summary normalizes information from multiple sources, and as a consequence, information in this document may materially change the coding, format and clinical context of patient data. In addition, data may be omitted in some cases. CLINICAL DECISIONS SHOULD BE BASED ON THE PRIMARY CLINICAL RECORDS. [facility]. provides no warranty or guarantee of the accuracy or completeness of information in this document.
== END 2024-12-31 15:16 | disposition home or self-care (01) ==
LOC: LAB 15:18
PROVIDERS: Visit Provider Physician Assistant
DX: Z34.92 Encounter for supervision of normal pregnancy, unspecified, second trimester (principal); Z36.1 Encounter for antenatal screening for raised alphafetoprotein level; Z36.89 Encounter for other specified antenatal screening
CPT/HCPCS: 36415; 82105

== ENCOUNTER 2024-12-31 15:23 | Outpatient (OUT) | payer BC, SELFPAY ==
[2024-12-31 17:08] LABS: BOX Test Reference Lab UNITY; BOX Test Sent Out UNITY
== END 2024-12-31 15:24 | disposition home or self-care (01) ==
LOC: LAB 15:24
PROVIDERS: Visit Provider Obstetrics & Gynecology
DX: Z01.419 Encounter for gynecological examination (general) (routine) without abnormal findings (principal)
CPT/HCPCS: 36415

== ENCOUNTER 2025-01-02 15:39 | Outpatient (OUT) | payer BC, SELFPAY ==
--- NOTE | 2025-01-02 15:44 | US_ITS ---
The [address] [address] Patient Name: TRUDI ZAMARRIPA MRN: [id number] date: 1990 Sex: F Assigned Patient Location: US Current Patient Location: Accession/Order Number: [id number] Exam Date: 01/02/2025 22:40 Report Date: 01/02/2025 22:47 At the request of: DIMPLE MCDANIEL DO Procedure: US OB cervical length Obstetrical Ultrasound for Fetus greater than 14 weeks HISTORY: anatomy assessment heart rate is 144 bpm. The fetus is in cephalic presentation. Variable lie The placenta is in a anteriorposition with normal appearance. Amniotic fluid index is subjectively normal The cervix has a length of cm. The estimated weight is 457 g. with percentile greater than 97%. The ovaries are not visualized. No fluid identified in the cul-de-sac. Following anatomy identified. Ventricles, cerebellum, posterior fossa, nose and lips, orbits, four-chamber heart, diaphragm, stomach, kidneys, cord insertion, urinary bladder, umbilical arteries, three-vessel cord, spine and extremities. Suboptimal assessment of the right ventricular outflow track and left ventricular outflow track. The biparietal diameter measures 5.0cm consistent with 21 weeks 0 days. Head circumference measures 18.3cm consistent with 20 weeks 5 days. Abdominal circumference measures 17.2cm consistent with 22 weeks 1 day. Femur length is 3.7cm consistent with 21 weeks 6 days. The average gestational age is 21 weeks 3 days. Estimated due date is 05/12/2025. somatic motion identified. US/US OB cervical length IMPRESSION: Single live intrauterine gestation 21 weeks 3 days. Limited assessment of right ventricular outflow track and left ventricular outflow track. Consider follow-up imaging. Remaining anatomy unremarkable. Ultrasound of cervical length The cervical length 4.5 cm. The os is closed. IMPRESSION: Cervical length 4.5 cm. Impression dictated by: Suraj Briscoe M.D. 01/02/2025 10:47 PM Dictation Location: [employer] Electronically authenticated by: [id number] Y Date: 01/02/2025 22:47
--- NOTE | 2025-01-02 15:44 | US_ITS ---
The [address] [address] Patient Name: TRUDI ZAMARRIPA MRN: [id number] date: 1990 Sex: F Assigned Patient Location: US Current Patient Location: US Accession/Order Number: [id number] Exam Date: 01/02/2025 22:40 Report Date: 01/02/2025 22:47 At the request of: DIMPLE MCDANIEL DO Procedure: US OB cervical length Obstetrical Ultrasound for Fetus greater than 14 weeks HISTORY: anatomy assessment heart rate is 144 bpm. The fetus is in cephalic presentation. Variable lie The placenta is in a anteriorposition with normal appearance. Amniotic fluid index is subjectively normal The cervix has a length of cm. The estimated weight is 457 g. with percentile greater than 97%. The ovaries are not visualized. No fluid identified in the cul-de-sac. Following anatomy identified. Ventricles, cerebellum, posterior fossa, nose and lips, orbits, four-chamber heart, diaphragm, stomach, kidneys, cord insertion, urinary bladder, umbilical arteries, three-vessel cord, spine and extremities. Suboptimal assessment of the right ventricular outflow track and left ventricular outflow track. The biparietal diameter measures 5.0cm consistent with 21 weeks 0 days. Head circumference measures 18.3cm consistent with 20 weeks 5 days. Abdominal circumference measures 17.2cm consistent with 22 weeks 1 day. Femur length is 3.7cm consistent with 21 weeks 6 days. The average gestational age is 21 weeks 3 days. Estimated due date is 05/12/2025. somatic motion identified. US/US OB anatomy IMPRESSION: Single live intrauterine gestation 21 weeks 3 days. Limited assessment of right ventricular outflow track and left ventricular outflow track. Consider follow-up imaging. Remaining anatomy unremarkable. Ultrasound of cervical length The cervical length 4.5 cm. The os is closed. IMPRESSION: Cervical length 4.5 cm. Impression dictated by: Suraj Briscoe M.D. 01/02/2025 10:47 PM Dictation Location: [email or web address] Electronically authenticated by: [id number] Y Date: 01/02/2025 22:47
== END 2025-01-02 15:40 | disposition home or self-care (01) ==
LOC: US 15:39
PROVIDERS: Visit Provider Obstetrics & Gynecology
DX: Z36.89 Encounter for other specified antenatal screening (principal); Z3A.21 21 weeks gestation of pregnancy
CPT/HCPCS: 76805; 76817

== ENCOUNTER 2025-02-01 08:20 | Outpatient (OUT) | payer BC, SELFPAY ==
--- OUTSIDE RECORDS SUMMARY | 2024-04-12 04:45 | XMS_ITS | Continuity of Care Document ---
Author Organization [employer] [facility] Address [address] [place] [address] Phone Care Team Providers Care Operations Analyst Name Role Phone Reena Breaux CNP Unavailable Procedures Procedure Date OFFICE/OUTPATIENT VISIT, EST OFFICE/OUTPATIENT VISIT, EST OFFICE/OUTPATIENT VISIT, EST OFFICE/OUTPATIENT VISIT, EST POSTOP FOLLOW-UP VISIT POSTOP FOLLOW-UP VISIT LAP SLEEVE GASTRECTOMY Sleeve Gastrectomy OFFICE/OUTPATIENT VISIT, EST PSYCH DIAGNOSTIC EVALUATION PSYCL/NRPSYC TST PHY/QHP 1ST PSYCL/NRPSYC TST PHY/QHP OFFICE/OUTPATIENT VISIT, [facility] Advance Directives Directive Yes / No Effective Date File Name No Information Encounters Encounter Description Practice Location Reason(s) For Visit Diagnoses Date Provider Providers Copied on Encounter OFFICE/OUTPATI ENT VISIT, [facility] [employer] [facility], [address], [place], [place], [address], [place] tel:[phone] [facility] No Information Saeid Valles. [address], [place], [place], [address], [place]. tel:[phone] Referring Provider: Reena Breaux, [address] [facility] [address], [place], [address]. tel:[phone] OFFICE/OUTPATI ENT VISIT, [employer] [facility], [address] [place] [address] [address], [place], [place], [address], [place] tel:[phone] [facility] No Information Saeid Valles. [address], [facility] [place], [address], [place]. tel:[phone] Referring Provider: Reena Breaux, [facility] [address], [place], [address]. tel:[phone] OFFICE/OUTPATI ENT VISIT, [employer] [facility], [address], [place], [place], [address], [place] tel:[phone] [facility] No Information Saeid Valles. [address], [place], [place], [address], [place]. tel:[phone] Referring Provider: Reena Breaux, [facility] [address], [place], [address]. tel:[phone] [employer] [facility], [address] [place] [address] [address], [place], [place], [address], [place] tel:[phone] [facility] No Information Saeid Valles. [address], [place], [place], [address], [place]. tel:[phone] Referring Provider: Reena Breaux, [facility] [address], [place], [address]. tel:[phone] [facility], [address] [place] [address] [address], [place], [address], [place] tel:[phone] [facility] No Information Saeid Valles. [address], [place], [place], [address], [place]. tel:[phone] Referring Provider: Reena Breaux, [facility] [address], [place], [address]. tel:[phone] [employer] [facility], [address] [place] [address] [address], [place], [place], [address], [place] tel:[phone] [facility] IP No Information Robert Mcmahon. [address] [facility] [address], [place], [place], [address], [place]. tel:[phone] Referring Provider: Lisandro Lieberman, [address] [facility] [address], [place], [address]. tel:[phone] [employer] [facility], [address] [place] [address] [address], [place], [place], [address], [place] tel:[phone] [facility] IP No Information Saeid Valles. [address] [facility] [address], [place], [place], [address], [place]. tel:[phone] Referring Provider: Reena Breaux, [address] [place] [address] [address], [place], [address]. tel:[phone] OFFICE/OUTPATI ENT VISIT, [facility] [employer] [facility], [address] [place] [address] [address], [place], [place], [address], [place] tel:[phone] [facility] No Information Robert Mcmahon. [address] [facility] [address], [place], [place], [address], [place]. tel:[phone] Referring Provider: Lisandro Lieberman, [address] [facility] [address], [place], [address]. tel:[phone] PSYCH DIAGNOSTIC EVALUATION [facility] [employer] [facility], [address] [place] [address] [address], [place], [place], [address], [place] tel:[phone] [facility] No Information Omari Beltran. [address] [facility] [address], [place], [place], [address], [place]. tel:[phone] Referring Provider: Ruby Salcido, [address] [place] [address] [address], [place], [address]. tel:[phone] OFFICE/OUTPATI ENT VISIT, [facility], [address], [place], [place], [address], [place] tel:[phone] [facility] No Information Robert Mcmahon. [address] [facility] [address], [place], [place], [address], [place]. tel:[phone] Referring Provider: Lisandro Lieberman, [address], [place], [address]. tel:[phone] Family History Family Member Type Diagnosis Age At Onset No Information Payers Payer name Insurance type Covered republican ID Bernice harley(gilmarMarco Antonio Scanlon [id number] Social History Type Description Quantity Date Captured Comments Sex Female Smoking Status No Information Chief Complaint And Reason For Visit No Information Reason For Referral Reason For Referral No Information Plan Of Treatment Date Type Action Status Appointment Caryl Garcia BOOKED History Of Present Illness Encounter Date Complaint History Of Prese nt Illness No Information Functional Status Date Functional Assessmen t No Information Instructions Date Instruction Additional Infor mation No Information Assessments Type Assessment Date No Information Patient Care Teams Name Effective Dates (start - stop) Status Members No Information
--- OUTSIDE RECORDS SUMMARY | 2025-01-30 13:00 | XMS_ITS | Encounter Summary ---
Author Organization [facility] Address [address] [place] [address] Care Team Providers Care [employer] Director Name Role Phone Unallocated, [facility] Provider Primary Care Provi chrissy Amalia Bruce SCALE OPERATOR Unavailable [phone] Encounter Details Date Type Department Care Team (Latest Contact Info) Description 01/30/2025 1:00 PM EDT Ancillary Procedure [facility] [address] [place] [address] Encounter for follow-up ultrasound of anatomy ([facility]) Social History Tobacco Use Types Packs/Day Years Used Date Smoking Tobacco: Never Smokeless Tobacco: Never Alcohol Use Standard Drinks/Week Comments Not Currently 0 (1 standard drink = 0.6 oz pure alcohol) Caffeine intake: 1cup coffee/ day Estimated Date of Delivery Comme nts Yes 05/19/2025 Based on last me nstrual period of 08/12/2024 Sex and Gender Information Value Date Recorded Sex Assigned at Female 10/11/2023 1:55 PM EST Legal Sex Female 11:39 PM EDT Gender Identity Female 10/11/2023 1:55 PM EST Sexual Orientation Not on file 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 Not on file Not on file documented as of this encounter Plan of Treatment Upcoming Encounters Date Type Department Care Team (Late st Contact Info) Description 02/11/2025 11:30 AM EDT Routine [facility] [address] [place] [address] Rosy Barton PA [address] [facility] [place] [address] Pending Results Name Type Priority Associated Diagnoses Date /Time US OB limited 1+ fetuses Imaging Routine Encounter for follow-up ultrasound of anatomy ([facility]) 01/30/2025 1:20 PM EDT documented as of this encounter Goals Goal Patient Goal Type Associated Problems Recent Progress Patient-Stated? Author Reminders Care Plan OB Reminders No Open Scheduling, Background documented as of this encounter Visit Diagnoses Diagnosis Encounter for follow-up ultrasound of anatomy ([facility]) documented in this encounter Additional Health Concerns Active Problems Noted Date Diagnosed Date OB Reminders 10/19/2024 documented as of this encounter Care Teams [employer] Director Relationship Specialty Start Date End Date Unallocated, [facility] Provider, [address] [place] [address] PCP - General Family Medicine 10/17/23 Amalia Bruce, SCALE OPERATOR [address] [place] [address] PCP - [employer] 09/22/24 documented as of this encounter
--- OUTSIDE RECORDS SUMMARY | 2025-02-01 08:21 | XMS_ITS | Encounter Summary ---
Author Organization [facility] Address [facility] [place] [address] Care Team Providers Care Office Messenger Name Role Phone Dasha Lujan MD Primary Care Provider Sonia Dickerson MARKETING RESEARCH COORDINATOR.BALLET COMPANY MEMBER Unavailable Fatimah Geiger MARKETING RESEARCH COORDINATOR.BALLET COMPANY MEMBER Unavailable Ruth Richardson MARKETING RESEARCH COORDINATOR.BALLET COMPANY MEMBER Unavailable Berenice Rivas MARKETING RESEARCH COORDINATOR.BALLET COMPANY MEMBER Unavailable Zarina Pope-C Unavailable Source Comments In the event this information is protected by the Federal Confidentiality of Alcohol and Drug AbusePatient Records regulations: The Federal rules restrict any use of the information to criminally investigate or prosecute any alcohol or drug abuse patient.[facility] Encounter Details Date Type Department Care Team (Late st Contact Info) Description 06/21/2023 Patient Msg Internal Medicine [address] [place] [address] Provider, Ccf APPOINTMENT CANCELED Social History Tobacco Use Types Packs/Day Years Used Date Smoking Tobacco: Never Smokeless Tobacco: Never Alcohol Use Standard Drinks/Week Comments Yes 1.3 (1 standard drink = 0.6 oz p ure alcohol) occ. drink Social Connection and Isolat ion Panel [NHANES] Answer Date Recorded In a typical week, how many times do you talk on the phone with family, friends, or neighbors? More than three times a week 01/12/2022 How often do you get togethe r with friends or relatives? Three times a week 01/12/2022 How often do you attend chur or protestant services? Never 01/12/2022 Do you belong to any clubs o r organizations such as cheondoism groups, unions, fraternal or athletic groups, or school groups? No 01/12/2022 How often do you attend meet ings of the clubs or organizations you belong to? Never 01/12/2022 Are you , , di vorced, , never , or living with a partner? Never 01/12/2022 AUDIT-C Answer Date Recorded Q1: How often do you have a drink containing alc ohol? Monthly or less 01/12/2022 Q2: How many drinks containi ng alcohol do you have on a typical day when you are drinking? 1 or 2 01/12/2022 Q3: How often do you have si x or more drinks on one occasion? Never 01/12/2022 Overall Financial Resource Strain (CARDIA) Answe r Date Recorded How hard is it for you to pa y for the very basics like food, housing, medical care, and heating? Not hard at all 01/12/2022 PHQ-2 Answer Date Recorded PHQ-2 score 0 01/12/2022 [facility] of Occupat ional Health - Occupational Stress Questionnaire Answer Date Recorded Do you feel stress - tense, restless, nervous, or anxious, or unable to sleep at night because your mind is troubled all the time - these days? Not at all 01/12/2022 Exercise Vital Sign Answer Date Recorde d On average, how many days pe r week do you engage in moderate to strenuous exercise (like a brisk walk)? 4 days 01/12/2022 On average, how many minutes do you engage in exercise at this level? 30 min 01/12/2022 Hunger Vital Sign Answer Date Recorded Within the past 12 months, y ou worried that your food would run out before you got the money to buy more. Never true 01/13/20 Within the past 12 months, t he food you bought just didn't last and you didn't have money to get more. Never true 01/12/2022 PRAPARE - Transportation Answer Date Re corded In the past 12 months, has l ack of transportation kept you from medical appointments or from getting medications? No 12/21 In the past 12 months, has l ack of transportation kept you from meetings, work, or from getting things needed for daily living? No 01/12/2022 Housing Stability Vital Sign Answer Lucian e Recorded In the last 12 months, was t here a time when you were not able to pay the mortgage or rent on time? No 06/29/2022 In the last 12 months, how many places have you lived? 2 06/29/2022 In the last 12 months, was t here a time when you did not have a steady place to sleep or slept in a long-term (including now)? No 06/29/2022 Area Deprivation Index Answer Date Vern rded National Score (1-100), lower number is lower ri sk 70 09/03/2022 State Score (1-10), lower number is lower risk N ot on file 09/03/2022 Data from: https://www.neighborhoodatlas.medicine.[facility].edu/. Last address used for calculation [address] 09/03/2022 Comments Unknown Sex and Gender Information Value Date Recorded Sex Assigned at Female 01/12/2022 12:43 PM EDT Legal Sex Female 7:36 PM EDT Gender Identity Female 01/12/2022 12:43 PM EDT Sexual Orientation Not on file documented as of this encounter Plan of Treatment Not on file documented as of this encounter Visit Diagnoses Not on filedocumented in this encounter Care Teams Office Messenger Relationship Specialty [place] [address] [place] [address] PCP - General Internal Medicine 01/11/22 Sonia Dickerson APRN.CNP [address] [place] [address] Armoring Machine Operator Internal Medicine 07/30/24 08/29/24 Fatimah Geiger MARKETING RESEARCH COORDINATOR.[employer] MEMBER [address] [place] [address] Armoring Machine Operator Internal Medicine 07/30/24 Ruth Richardson, MARKETING RESEARCH COORDINATOR.[employer] MEMBER [address] [place] [address] [facility] Internal Medicine 07/30/24 08/29/24 Berenice Rivas, BRETT.[employer]LET [employer] MEMBER [address] [place] [address] [facility] Internal Medicine 07/30/24 08/29/24 Zarina Pope PA-C [address] [place] [address] [facility] Internal Medicine 07/30/24 08/29/24 documented as of this encounter
--- OUTSIDE RECORDS SUMMARY | 2025-02-01 08:22 | XMS_ITS | Encounter Summary ---
Author Organization [facility] Address [address] [place] [address] Care Team Providers Care Cuffing Machine Operator Name Role Phone Dasha Lujan MD Primary Care Provider Sonia Dickerson PACKING MACHINE FEEDER.PARISH WORKER Unavailable Fatimah Geiger PACKING MACHINE FEEDER.PARISH WORKER Unavailable Ruth Richardson PACKING MACHINE FEEDER.PARISH WORKER Unavailable Berenice Rivas APRN.PARISH WORKER Unavailable [phone] Zarina Pope PA-C Unavailable Source Comments In the event this information is protected by the Federal Confidentiality of Alcohol and Drug AbusePatient Records regulations: The Federal rules restrict any use of the information to criminally investigate or prosecute any alcohol or drug abuse patient.[facility] Encounter Details Date Type Department Care Team (Late st Contact Info) Description 06/18/2024 Patient Msg Internal Medicine [address] [place] [address] Berenice Rivas APRN.PARISH WORKER [address] [place] [address] Appointment Request Social History Tobacco Use Types Packs/Day Years Used Date Smoking Tobacco: Never Smokeless Tobacco: Never Alcohol Use Standard Drinks/Week Comments Yes 1.3 (1 standard drink = 0.6 oz p ure alcohol) occ. drink C Utilities Answer Date Recorded In the past 12 months has th e electric, gas, oil, or water company threatened to shut off services in your home? No 07/19/2023 Social Connection and Isolat ion Panel [NHANES] Answer Date Recorded In a typical week, how many times do you talk on the phone with family, friends, or neighbors? More than three times a week 07/19/2023 How often do you get togethe r with friends or relatives? Once a week 07/19/2023 How often do you attend chur ch or rastafari services? Never 07/19/2023 Do you belong to any clubs o r organizations such as adventism groups, unions, fraternal or athletic groups, or school groups? No 07/19/2023 How often do you attend meet ings of the clubs or organizations you belong to? Never 07/19/2023 Are you , , di vorced, , never , or living with a partner? Living with partner 07/19/2023 AUDIT-C Answer Date Recorded Q1: How often do you have a drink containing alc ohol? Monthly or less 07/19/2023 Q2: How many drinks containi ng alcohol do you have on a typical day when you are drinking? 1 or 2 07/19/2023 Q3: How often do you have si x or more drinks on one occasion? Never 07/19/2023 Overall Financial Resource Strain (CARDIA) Answe r Date Recorded How hard is it for you to pa y for the very basics like food, housing, medical care, and heating? Not very hard 07/19/2023 PHQ-2 Answer Date Recorded PHQ-2 score 0 07/22/2023 [facility] [place] of Occupat ional Health - Occupational Stress Questionnaire Answer Date Recorded Do you feel stress - tense, restless, nervous, or anxious, or unable to sleep at night because your mind is troubled all the time - these days? To some extent 07/19/2023 Exercise Vital Sign Answer Date Recorde d On average, how many days pe r week do you engage in moderate to strenuous exercise (like a brisk walk)? 4 days 07/19/2023 On average, how many minutes do you engage in exercise at this level? 30 min 07/19/2023 Hunger Vital Sign Answer Date Recorded Within the past 12 months, y ou worried that your food would run out before you got the money to buy more. Never true Within the past 12 months, t he food you bought just didn't last and you didn't have money to get more. Patient declined PRAPARE - Transportation Answer Date Re corded In the past 12 months, has l ack of transportation kept you from medical appointments or from getting medications? No 06/23 In the past 12 months, has l ack of transportation kept you from meetings, work, or from getting things needed for daily living? No 07/19/2023 Housing Stability Vital Sign Answer Lucian e Recorded In the last 12 months, was t here a time when you were not able to pay the mortgage or rent on time? No 07/19/2023 In the last 12 months, how many places have you lived? 1 07/19/2023 In the last 12 months, was t here a time when you did not have a steady place to sleep or slept in a senior living (including now)? No 07/19/2023 Area Deprivation Index Answer Date Vern rded National Score (1-100), lower number is lower ri sk 90 07/19/2023 State Score (1-10), lower number is lower risk 8 07/19/2023 Data from: https://www.neighborhoodatlas.medicine.[facility].edu/. Last address used for calculation [address] 07/19/2023 Comments Unknown Sex and Gender Information Value Date Recorded Sex Assigned at Female 01/12/2022 12:43 PM EDT Legal Sex Female 7:36 PM EDT Gender Identity Female 01/12/2022 12:43 PM EDT Sexual Orientation Not on file documented as of this encounter Plan of Treatment Not on file documented as of this encounter Visit Diagnoses Not on filedocumented in this encounter Care Teams Cuffing Machine Operator Relationship Specialty [place] [address] [place] [address] PCP - General Internal Medicine 01/11/22 Sonia Dickerson, BRETT.PARISH WORKER [address] [place] [address] Marketing/Sales Person Internal Medicine 07/30/24 08/29/24 Fatimah Geiger PACKING MACHINE FEEDER.PARISH WORKER [address] [place] [address] [facility] Internal Medicine 07/30/24 Ruth Richardson APRN.PARISH WORKER [address] [place] [address] [facility] Internal Medicine 07/30/24 08/29/24 Berenice Rivas PACKING MACHINE FEEDER.PARISH WORKER [address] [place] [address] [facility] Internal Medicine 07/30/24 08/29/24 Zarina Pope PA-C [address] [place] [address] [facility] Internal Medicine 07/30/24 08/29/24 documented as of this encounter
--- OUTSIDE RECORDS SUMMARY | 2025-02-01 08:22 | XMS_ITS | Encounter Summary ---
Author Organization [facility] Address [address] [place] [address] Care Team Providers Care Linoleum Layer Apprentice Name Role Phone Dasha Lujan MD Primary Care Provider Sonia Dickerson COMB FIXER.EVAPORATOR Unavailable Fatimah Geiger COMB FIXER.EVAPORATOR Unavailable Ruth Richardson COMB FIXER.EVAPORATOR Unavailable Berenice Rivas APRN.EVAPORATOR Unavailable Zarina Pope PA-C Unavailable Source Comments In the event this information is protected by the Federal Confidentiality of Alcohol and Drug AbusePatient Records regulations: The Federal rules restrict any use of the information to criminally investigate or prosecute any alcohol or drug abuse patient.[facility] Encounter Details Date Type Department Care Team (Late st Contact Info) Description 06/12/2024 Patient Msg Internal Medicine [address] [place] [address] Berenice Rivas APRN.EVAPORATOR [address] [place] [address] Appointment Request Social History Tobacco Use Types [...] often do you attend chur ch or zoroastrian services? Never 07/19/2023 Do you belong to any clubs o r organizations such as jainism groups, unions, fraternal or athletic groups, or [...] Answer Date Recorded PHQ-2 score 0 07/22/2023 [facility] of Occupat ional Health - Occupational Stress [...] place to sleep or slept in a assisted (including now)? No 07/19/2023 Area Deprivation Index Answer Date Vern rded National Score (1-100), lower number is lower ri sk 90 07/19/2023 State Score (1-10), lower number is lower risk 8 07/19/2023 Data from: https://www.neighborhoodatlas.medicine.[facility].edu/. Last address used for calculation [address] [...] on filedocumented in this encounter Care Teams Linoleum Layer Apprentice Relationship Specialty [place] [address] [place] [address] PCP - General Internal Medicine 01/11/22 Sonia Dickerson, BRETT.EVAPORATOR [address] [place] [address] Trench Digger Helper Internal Medicine 07/30/24 08/29/24 Fatimah Geiger COMB FIXER.EVAPORATOR [address] [place] [address] [facility] Internal Medicine 07/30/24 Ruth Richardson APRN.EVAPORATOR [address] [place] [address] [facility] Internal Medicine 07/30/24 08/29/24 Berenice Rivas COMB FIXER.EVAPORATOR [address] [place] [address] [facility] Internal Medicine 07/30/24 08/29/24 Zarina Pope PA-C [address] [place] [address] [facility] Internal Medicine 07/30/24 08/29/24 documented as of this encounter
--- OUTSIDE RECORDS SUMMARY | 2025-02-01 08:22 | XMS_ITS | Encounter Summary ---
Author Organization [facility] Address [address] [place] [address] Care Team Providers Care Analyst Sales Name Role Phone Unallocated, [facility] Provider Primary Care Provi chrissy Amalia Bruce CERTIFIED MEDICAL TECHNICIAN Unavailable [phone] Encounter Details Date Type Department Care Team (Late st Contact Info) Description 01/09/2025 Abstract [facility] [address] [place] [id number] Roscoe Diaz, DO [facility] [address] [place], [place] [address] Social History Tobacco Use Types Packs/Day Years [...] Routine [facility] [address] [place] [address] Rosy Barton PA [address] [place] [address] documented as of this encounter Goals Goal Patient Goal Type Associated Problems Recent Progress Patient-Stated? Author Reminders Care Plan OB Reminders No Open Scheduling, Background documented as of this encounter Visit Diagnoses Not on filedocumented in this encounter Additional Health Concerns Active Problems Noted Date Diagnosed Date OB Reminders 10/19/2024 documented as of this encounter Care Teams Analyst Sales Relationship Specialty Start Date End Date Unallocated, [facility]oms Provider, [address] [place] [address] PCP - General Family Medicine 10/17/23 Amalia Bruce, TONIA [address] [place] [address] PCP - Capo Wild 09/22/24 documented as of this encounter
--- OUTSIDE RECORDS SUMMARY | 2025-02-01 08:22 | XMS_ITS | Encounter Summary ---
Author Organization [facility] Address [address] [place] [address] Care Team Providers Care Coat Repair Inspector Name Role Phone Unallocated, [facility]oms Provider Primary Care Provi chrissy Amalia Bruce ELECTRICAL ENGINEERING TECHNICIAN Unavailable [phone] Encounter Details Date Type Department Care Team (Latest Contact Info) Description 01/27/2025 Travel Social History Tobacco Use Types Packs/Day Years [...] Routine [facility] [address] [place] [id number] Rosy Barton PA [address] [place] [address] documented as of this encounter Goals Goal Patient Goal Type Associated Problems Recent Progress Patient-Stated? Author Reminders Care Plan OB Reminders No Open Scheduling, Background documented as of this encounter Visit Diagnoses Not on filedocumented in this encounter Additional Health Concerns Active Problems Noted Date Diagnosed Date OB Reminders 10/19/2024 documented as of this encounter Care Teams Coat Repair Inspector Relationship Specialty Start Date End Date Unallocated, Noms Provider, [address] [place], [place] [id number] PCP - General Family Medicine 10/17/23 Amalia Bruce, TONIA [address] [place] [address] PCP - Capo Wild 09/22/24 documented as of this encounter
--- OUTSIDE RECORDS SUMMARY | 2025-02-01 08:22 | XMS_ITS | Clinical Summary ---
Author Organization [facility] Address [address] [place] [address] Care Team Providers Care Export Specialist Name Role Phone Dasha Lujan MD Primary Care Provider [phone] Fatimah Geiger APRN.RELEASE SPECIALIST Unavailable [phone] Allergies No known active allergies Medications Omeprazole Magnesium (ACID JOU[employer]S AND OTHER WRITERS, OMEPRAZOLE,) 20 mg cpDR 04/16/2022 Active Active Problems No known active problems Immunizations Immunization Administration Dates Next Due Haemophilus influenzae b (Hi b) vaccine, unspecified formulation 03/01/1994,07/27/1993,03/16/1993,12/15 diphtheria tetanus pertussis (DTP) vaccine 07/27/1993,03/16/1993,1992 diphtheria tetanus pertussis (DTaP) vaccine, unspecified formulation 04/30/1998,06/07/1994 hepatitis B (HepB) vaccine, 3-dose series, age 0 yr - 19 yr (ENGERIX B-PEDS, RECOMBIVAX HB-PEDS) 06/07/1994,03/01/1994,07/27/1993 human papillomavirus (HPV4) vaccine, quadrivalent (GARDASIL) 03/29/2011,11/26/2010,09/28/2010 measles mumps rubella (MMR) vaccine (M-M-R II, PRIORIX) 04/30/1998,03/01/1994 meningococcal (MenACWY-D) va ccine, quadrivalent (MENACTRA) 05/03/2011 poliovirus (OPV) vaccine, tr ivalent, live, oral (ORIMUNE) 04/30/1998,06/07/1994,03/16/1993,12/15 tetanus diphtheria pertussis (Tdap) vaccine, age 7+ yr (ADACEL, BOOSTRIX) 07/21/2023,05/03/2011 Family History Medical History Relation Comments Hyperlipidemia Father Hypertension Father Asthma Mother Arthritis Sister Asthma Sister Relation Status Comments Father Mother Sister Social History Tobacco Use Types Packs/Day Years Used Date Smoking Tobacco: Never Smokeless Tobacco: Never Tobacco Cessation:Counseling Given: Not Answered Alcohol Use Standard Drinks/Week Comments Yes 1.3 (1 standard drink = 0.6 oz p ure alcohol) occ. drink [id number] Utilities Answer Date Recorded In the past 12 months has [employer], gas, oil, or water [employer] threatened to shut off services in your [...] often do you attend chur ch or lutheran services? Never 07/19/2023 Do you belong to any clubs o r organizations such as christian groups, unions, fraternal or athletic groups, or [...] PHQ-2 Answer Date Recorded PHQ-2 score 0 06/29/2024 [facility] [place] of Occupat ional Health - Occupational Stress [...] place to sleep or slept in a intermediate (including now)? No 07/19/2023 Area Deprivation Index Answer Date Vern rded National Score (1-100), lower number is lower ri sk 90 07/19/2023 State Score (1-10), lower number is lower risk 8 07/19/2023 Data from: https://www.neighborhoodatlas.medicine.[facility].edu/. Last address used for calculation [address] 07/19/2023 Comments Unknown Sex and Gender Information Value Date Recorded Sex Assigned at Female 01/12/2022 12:43 PM EDT Legal Sex Female 7:36 PM EDT Gender Identity Female 01/12/2022 12:43 PM EDT Sexual Orientation Not on file Last Filed Vital Signs Vital Sign Reading Time Taken Comments Blood Pressure 101/68 06/29/2024 12:36 PM EST Pulse 65 06/29/2024 12:36 PM EST Temperature 36.7 C (98 F) 07/06/2022 12:26 PM EST Respiratory Rate 16 07/06/2022 12:26 PM EST Oxygen Saturation - - Inhaled Oxygen Concentration - - Weight 75.8 kg (167 lb) 06/29/2024 12:36 PM EST Height 160 cm (5' 3 ) 09/23/2023 2:27 PM EST Body Mass Index 29.58 09/23/2023 2:27 PM EST Plan of Treatment Health Maintenance Due Date Last Done Comments Anxiety Screening 2010 Depression Screening 2010 Cervical Cancer Screening 01/15/2023 01/16/2020 Covid-19 Vaccine (2023-2 5 season) 2024 Influenza Vaccine (Season Ended) 2025 DTaP,Tdap,Td Vaccine (8 - Td or Tdap) 07/21/2033 07/21/2023, 05/03/2011, 04/30/1998, Additional history exists Hepatitis B Vaccine Completed 06/07/1994, 03/01/1994, 07/27/1993 HIV Screening Discontinued Hepatitis C Screening Discontinued Insurance Care Teams Export Specialist Relationship Specialty [place] [address] [place], [place] [id number] PCP - General Internal Medicine 01/11/22 Fatimah Geiger APRN.GIORGI [address] [place], [place] [id number] Diesel Mechanic Helper Internal Medicine 07/30/24
--- OUTSIDE RECORDS SUMMARY | 2025-02-01 08:22 | XMS_ITS | Clinical Summary ---
Author Organization [facility] Address [address] [place] [address] Care Team Providers Care Tool Design Checker Name Role Phone Unallocated, Noms Provider Primary Care Provi chrissy Amalia Bruce [employer] COUNSE[employer] Unavailable Allergies No known active allergies Medications omeprazole OTC (PriLOSEC OTC) 20 MG EC tablet Take 20 mg by mouth in the morning. Take before meals. Do not crush, chew, or split.. Active Vit-Fe Fumarate-FA ( 19) 29-1 MG chewable tabletIndication s:, unspecified gestational age ([facility]) Chew 1 each Daily 30 tablet 11 10/23/2024 Active Encounters Date Type Department Care Team Description 01/30/2025 1:00 PM EDT Ancillary Procedure [facility] [address] [place] [address] Encounter for follow-up ultrasound of anatomy ([facility]) 01/27/2025 Travel 01/10/2025 10:10 AM EDT Routine [facility] [address] [place] [address] Dimple Diaz DO 21 weeks gestation of ([facility]); Second trimester ([facility]); Diabetes mellitus screening 01/10/2025 Bamboo flowsheet [facility] [address] [facility] [place] [address] Dimple Diaz DO 01/09/2025 Abstract [facility] [address] [place] [address] [place] [address] Dimple Diaz, DO 01/07/2025 Telephone [facility] [address] [place] [address] [place] [phone] Jes Garza, HALEY 01/03/2025 Travel 01/02/2025 Clinisync Result Encounter [facility] External Department Unsolicited Dimple Diaz, DO 01/02/2025 Clinisync Result Encounter [facility] External Department Unsolicited Dimple Diaz, DO 12/31/2024 Clinisync Result Encounter [facility] External Department Unsolicited Dimple Diaz, DO 12/26/2024 Orders Only [facility] [address] [place] [phone] Iman Saldana LPN 12/10/2024 11:00 AM EDT Routine [facility] [address] [place] [address] Rosy Barton PA Well woman exam with routine gynecological exam; Second trimester ([facility]); 17 weeks gestation of ([facility]); Exposure to STD; Need for maternal serum alpha-protein (MSAFP) screening ([facility]); Screening, , for anatomic survey ([facility]) 12/10/2024 Clinisync Result Encounter [facility] External Department Unsolicited Rosy Barton PA 12/10/2024 External Result Encounter [facility] External Department Unsolicited Rosy Barton PA 12/10/2024 Bamboo flowsheet [facility] [address] [place] [address] [place] [address] Rosy Barton PA 12/10/2024 Travel 11/08/2024 10:50 AM EDT Routine [facility] [place] [address] [place] [phone] Dimple Diaz, DO 12 weeks gestation of ([facility]) 11/08/2024 Bamboo flowsheet [facility] OB [address] [place] [address] Dimple Diaz DO 11/01/2024 Travel from Last 3 Months Family History Medical History Relation Name Comments Hypertension Father Diabetes Maternal Grandfather Heart attack Maternal Grandfather Hyperlipidemia Maternal Grandfather Relation Name Status Comments Father Maternal Grandfather Social History Tobacco Use Types Packs/Day Years Used Date Smoking Tobacco: Never Smokeless Tobacco: Never Tobacco Cessation:Counseling Given: Not Answered Alcohol Use Standard Drinks/Week Comments Not Currently [...] file Not on file Not on file Last Filed Vital Signs Vital Sign Reading Time Taken Comments Blood Pressure 110/68 01/10/2025 10:33 AM EDT Pulse 88 08/02/2024 3:58 PM EST Temperature 36 C (96.8 F) 08/02/2024 3:58 PM EST Respiratory Rate 12 07/25/2024 2:19 PM EST Oxygen Saturation 98% 08/02/2024 3:58 PM EST Inhaled Oxygen Concentration - - Weight 89.4 kg (197 lb 1.9 oz) 01/10/2025 10:33 AM EDT Height 160 cm (5' 3 ) 07/25/2024 2:19 PM EST Body Mass Index 34.92 07/25/2024 2:19 PM EST Plan of Treatment Upcoming Encounters Date Type Department Care Team (Late st Contact Info) Description 02/11/2025 11:30 AM EDT Routine [facility] [address] [place] [phone] Rosy Barton PA [address] [facility] [address] [place], [place] [phone] Health Maintenance Due Date Last Done Comments HPV/Cotest 2022 Influenza Vaccine (Season Ended) 2025 Cervical Cancer Screening 12/11/2027 Pap Smear 12/11/2027 12/10/2024 Goals Goal Patient Goal Type Associated Problems Recent Progress Patient-Stated? Author Reminders Care Plan OB Reminders No Open Scheduling, Background Procedures Procedure Name Priority Date/Time Associated Diagnosis Comments POCT URINALYSIS DIPSTICK Routine 01/10/2025 10:40 AM EDT 21 weeks gestation of ([facility]) Second trimester ([facility]) US OB ANATOMY 01/02/2025 10:47 PM EDT US OB CERVICAL LENGTH 01/02/2025 10:47 PM EDT AFP, SERUM, OPEN SPINA BIFIDA Routine 12/31/2024 3:43 PM EDT BOX TEST Routine 12/31/2024 3:43 PM EDT RECURRENT VAGINITIS (HTRX) Routine 12/10/2024 11:27 AM EDT POCT URINALYSIS DIPSTICK Routine 12/10/2024 11:24 AM EDT Second trimester ([facility]) IGP,APTIMA HPV,AGE GDLN Routine 12/10/2024 11:00 AM EDT PAP SMEAR Routine 12/10/2024 12:00 AM EDT CULTURE, URINE, ROUTINE Routine 11/08/2024 12:12 PM EDT Missed menses POCT URINALYSIS DIPSTICK Routine 11/08/2024 11:14 AM EDT 12 weeks gestation of ([facility]) from Last 3 Months Results * (ABNORMAL) POCT urinalysis dipstick manually resulted (01/10/2025 10:40 AM EDT) Only the most recent of3 resultswithin the time period is included. Color, UA Yellow Clarity, UA Clear Glucose, UA Negative Negative - 1999(110) ++++ mg/dL Bilirubin, UA Negative Negative - 4(70) +++ mg/dL Ketones, UA Positive Negative - 160(16) ++++ mg/dL Spec Grav, UA 1.010 1 - 1.03 Blood, UA Negative Negative - 50 Iraj/mcL pH, UA 6.0 5 - 9 Protein, UA Negative Negative - 1999(20) ++++ mg/dL Urobilinogen, UA 0.2 0.2 - 12 mg/dL Leukocytes, UA Negative Negative - 500+++ Mari/mcL Nitrite, UA Negative Negative - Positive Urine 01/10/2025 10:4 0 AM EDT us Dimple Diaz DO POINT OF CARE TEST ENTER/EDIT OR DERABLES Final Result * US OB CERVICAL LENGTH (01/02/2025 10:47 PM EDT) Anatomical Region Laterality Modality Other 01/02/2025 10:4 7 PM EDT Narrative 01/02/2025 10:50 PM EDT [address] [address] Ultrasound Report Signed Patient: TRUDI ZAMARRIPA MR#: [id number] : 1990 Acct:[id number] Age/Sex: 34 / F ADM Date: 01/02/25 Loc: US Attending Dr: Dimple Diaz D.O. Ordering Physician: Dimple Diaz D.O. Date of Service: 01/02/25 Procedure(s): US OB cervical length Accession Number(s): [id number] cc: Dimple Diaz D.O.; Physician,Non-Staff M.Bruce [address] [address] Patient Name: TRUDI ZAMARRIPA MRN: [id number] date: 1990 Sex: F Assigned Patient Location: US Current Patient Location: US Accession/Order Number: [id number] Exam Date: 01/02/2025 22:40 Report Date: 01/02/2025 22:47 At the request of: DIMPLE DIAZ DO Procedure: US OB cervical length Obstetrical Ultrasound for Fetus greater than 14 weeks HISTORY: anatomy assessment heart rate is 144 bpm. The fetus is in cephalic presentation. Variable lie The placenta is in a anteriorposition with normal appearance. Amniotic fluid index is subjectively normal The cervix has a length of cm. The estimated weight is 457 g. with percentile greater than 97%. The ovaries are not visualized. No fluid identified in the cul-de-sac. Following anatomy identified. Ventricles, cerebellum, posterior fossa, nose and lips, orbits, four-chamber heart, diaphragm, stomach, kidneys, cord insertion, urinary bladder, umbilical arteries, three-vessel cord, spine and extremities. Suboptimal assessment of the right ventricular outflow track and left ventricular outflow track. The biparietal diameter measures 5.0cm consistent with 21 weeks 0 days. Head circumference measures 18.3cm consistent with 20 weeks 5 days. Abdominal circumference measures 17.2cm consistent with 22 weeks 1 day. Femur length is 3.7cm consistent with 21 weeks 6 days. The average gestational age is 21 weeks 3 days. Estimated due date is 05/12/2025. somatic motion identified. US/US OB cervical length IMPRESSION: Single live intrauterine gestation 21 weeks 3 days. Limited assessment of right ventricular outflow track and left ventricular outflow track. Consider follow-up imaging. Remaining anatomy unremarkable. Ultrasound of cervical length The cervical length 4.5 cm. The os is closed. IMPRESSION: Cervical length 4.5 cm. Impression dictated by: Suraj Briscoe M.D. 01/02/2025 10:47 PM Dictation Location: [place] [address] Electronically authenticated by: [id number] Y Date: 01/02/2025 22:47 Dictated By: Suraj Briscoe D.O. Signed By: 01/02/25 2250 DD/ 46 TD/TT: Furnace Setter: Procedure Note Radiology, Radiologist, - 01/02/2025 [place] [address] Ultrasound Report Signed Patient: TRUDI ZAMARRIPA#: [id number] : 1990Acct:[id number] Age/Sex: 34 / FADM Date: 01/02/25 Loc: US Attending Dr: Dimple Diaz D.O. Ordering Physician: Dimple Diaz D.O. Date of Service: 01/02/25 Procedure(s): US OB cervical length Accession Number(s): [id number] cc: Dimple Diaz D.O.; Physician,Non-Staff MCharisseDCharisse [place] [id number] Patient Name: TRUDI ZAMARRIPA MRN: [id number] date: 1990 Sex: F Assigned Patient Location: US Current Patient Location: US Accession/Order Number: [id number] Exam Date: 01/02/2025 22:40 Report Date: 01/02/2025 22:47 At the request of: DIMPLE DIAZ DO Procedure: US OB cervical length Obstetrical Ultrasound for Fetus greater than 14 weeks HISTORY: anatomy assessment heart rate is 144 bpm. The fetus is in cephalic presentation.Variable lie The placenta is in a anteriorposition with normal appearance.Amniotic fluid index is subjectively normal The cervix has a length of cm. The estimated weight is 457 g. with percentile greater than 97%. The ovaries are not visualized. No fluid identified in the cul-de-sac. Following anatomy identified. Ventricles, cerebellum, posteriorfossa, nose and lips, orbits, four-chamber heart, diaphragm, stomach, kidneys,cord insertion, urinary bladder, umbilical arteries, three-vessel cord, spineand extremities. Suboptimal assessment of the right ventricular outflow trackand left ventricular outflow track. The biparietal diameter measures 5.0cm consistent with 21 weeks 0 days. Head circumference measures 18.3cm consistent with 20 weeks 5 days. Abdominal circumference measures 17.2cm consistent with 22 weeks 1 day. Femur length is 3.7cm consistent with 21 weeks 6 days. The average gestational age is 21 weeks 3 days. Estimated due date is 05/12/2025. somatic motion identified. US/US OB cervical length IMPRESSION: Single live intrauterine gestation 21 weeks 3 days. Limited assessment of right ventricular outflow track and left ventricular outflow track. Consider follow-up imaging. Remaining anatomy unremarkable. Ultrasound of cervical length The cervical length 4.5 cm. The os is closed. IMPRESSION: Cervical length 4.5 cm. Impression dictated by: Suraj Briscoe M.D. 01/02/2025 10:47 PM Dictation Location: [place] [address] Electronically authenticated by: [id number] Y Date: 2:47 Dictated By: Suraj Briscoe D.O. Signed By:01/02/252249 DD/ 46 TD/TT: Furnace Setter: us Dimple Diaz DO [facility] Final Result * US OB ANATOMY (01/02/2025 10:47 PM EDT) Anatomical Region Laterality Modality Other 01/02/2025 10:4 7 PM EDT Narrative 01/02/2025 10:50 [place] [address] Ultrasound Report Signed Patient: TRUDI ZAMARRIPA MR#: [id number] : 1990 Acct:[id number] Age/Sex: 34 / F ADM Date: 01/02/25 Loc: US Attending Dr: Dimple Diaz D.O. Ordering Physician: Dimple Diaz D.O. Date of Service: 01/02/25 Procedure(s): US OB anatomy Accession Number(s): [id number] cc: Dimple Diaz D.O.; Physician,Non-Staff Shimon The [address] [address] Patient Name: TRUDI ZAMARRIPA MRN: [id number] date: 1990 Sex: F Assigned Patient Location: US Current Patient Location: US Accession/Order Number: [id number] Exam Date: 01/02/2025 22:40 Report Date: 01/02/2025 22:47 At the request of: DIMPLE DIAZ DO Procedure: US OB cervical length Obstetrical Ultrasound for Fetus greater than 14 weeks HISTORY: anatomy assessment heart rate is 144 bpm. The fetus is in cephalic presentation. Variable lie The placenta is in a anteriorposition with normal appearance. Amniotic fluid index is subjectively normal The cervix has a length of cm. The estimated weight is 457 g. with percentile greater than 97%. The ovaries are not visualized. No fluid identified in the cul-de-sac. Following anatomy identified. Ventricles, cerebellum, posterior fossa, nose and lips, orbits, four-chamber heart, diaphragm, stomach, kidneys, cord insertion, urinary bladder, umbilical arteries, three-vessel cord, spine and extremities. Suboptimal assessment of the right ventricular outflow track and left ventricular outflow track. The biparietal diameter measures 5.0cm consistent with 21 weeks 0 days. Head circumference measures 18.3cm consistent with 20 weeks 5 days. Abdominal circumference measures 17.2cm consistent with 22 weeks 1 day. Femur length is 3.7cm consistent with 21 weeks 6 days. The average gestational age is 21 weeks 3 days. Estimated due date is 05/12/2025. somatic motion identified. US/US OB anatomy IMPRESSION: Single live intrauterine gestation 21 weeks 3 days. Limited assessment of right ventricular outflow track and left ventricular outflow track. Consider follow-up imaging. Remaining anatomy unremarkable. Ultrasound of cervical length The cervical length 4.5 cm. The os is closed. IMPRESSION: Cervical length 4.5 cm. Impression dictated by: Sruaj Briscoe M.D. 01/02/2025 10:47 PM Dictation Location: [place] [address] Electronically authenticated by: [id number] Y Date: 01/02/2025 22:47 Dictated By: Suraj Briscoe D.O. Signed By: 01/02/25 2250 DD/ 2247 TD/TT: Furnace Setter: Procedure Note Radiology, Radiologist, MD - 01/02/2025 [place] [address] Ultrasound Report Signed Patient: TRUDI ZAMARRIPA#: [id number] : 1990Acct:[id number] Age/Sex: 34 / FADM Date: 01/02/25 Loc: US Attending Dr: Dimple Diaz D.O. Ordering Physician: Dimple Diaz D.O. Date of Service: 01/02/25 Procedure(s): US OB anatomy Accession Number(s): [id number] cc: Dimple Diaz D.O.; Physician,Non-Staff Shimon [address] [address] Patient Name: TRUDI ZAMARRIPA MRN: [id number] date: 1990 Sex: F Assigned Patient Location: US Current Patient Location: US Accession/Order Number: [id number] Exam Date: 01/02/2025 22:40 Report Date: 01/02/2025 22:47 At the request of: DIMPLE DIAZ DO Procedure: US OB cervical length Obstetrical Ultrasound for Fetus greater than 14 weeks HISTORY: anatomy assessment heart rate is 144 bpm. The fetus is in cephalic presentation.Variable lie The placenta is in a anteriorposition with normal appearance.Amniotic fluid index is subjectively normal The cervix has a length of cm. The estimated weight is 457 g. with percentile greater than 97%. The ovaries are not visualized. No fluid identified in the cul-de-sac. Following anatomy identified. Ventricles, cerebellum, posteriorfossa, nose and lips, orbits, four-chamber heart, diaphragm, stomach, kidneys,cord insertion, urinary bladder, umbilical arteries, three-vessel cord, spineand extremities. Suboptimal assessment of the right ventricular outflow trackand left ventricular outflow track. The biparietal diameter measures 5.0cm consistent with 21 weeks 0 days. Head circumference measures 18.3cm consistent with 20 weeks 5 days. Abdominal circumference measures 17.2cm consistent with 22 weeks 1 day. Femur length is 3.7cm consistent with 21 weeks 6 days. The average gestational age is 21 weeks 3 days. Estimated due date is 05/12/2025. somatic motion identified. US/US OB anatomy IMPRESSION: Single live intrauterine gestation 21 weeks 3 days. Limited assessment of right ventricular outflow track and left ventricular outflow track. Consider follow-up imaging. Remaining anatomy unremarkable. Ultrasound of cervical length The cervical length 4.5 cm. The os is closed. IMPRESSION: Cervical length 4.5 cm. Impression dictated by: Suraj Briscoe M.D. 01/02/2025 10:47 PM Dictation Location: [place] Electronically authenticated by: [id number] Y Date: 2:47 Dictated By: Suraj Briscoe D.O. Signed By:01/02/250 DD/ TD/TT: Furnace Setter: us Dimple Joe DO [facility] Final Result * BOX TEST (12/31/2024 3:43 PM EDT) BOX TEST SENT OUT [facility] BOX1 [facility] BOX2 12/31/2024 [facility] 12/31/2024 3:43 PM EDT 12/31/2024 3:47 PM EDT Narrative [facility] - 12/31/2024 5:08 PM EDT UNITY BOX us Dimple Joe DO LAB BLOOD ORDERABLES Final Resul t [facility] * AFP, SERUM, OPEN SPINA BIFIDA (12/31/2024 3:43 PM EDT) RESULTS Report . [facility] TEST RESULTS: *Screen Negative* . [facility] GEST. AGE ON COLLECTION DATE 20.1 . weeks [facility] GESTAT. AGE BASED ON LMP . [facility] Comment: Recalculations are not recommended when gestational dating by LMP and ultrasound are within 10 days. [age] [facility] RACE . [facility] WEIGHT 190 . lbs [facility] INSULIN DEP DIABETES No . [facility] MULTIPLE GESTATION No . [facility] AFP VALUE 106.2 . ng/mL [facility] AFP MOM 2.15 . [facility] OSBR RISK 1 IN 581 . [facility] INTERPRETATION Comment . [facility] Comment: Interpretation: Screen Negative This result is screen negative for OSB. The AFP MoM calculated is based on the gestational age provided. MS-AFP can identify up to 80% of open neural tube defects. Closed neural tube defects and some open defects may not be detected by this test. This test does not screen for Down Syndrome or Trisomy 18. If screening for Down Syndrome or Trisomy 18 is desired, contact [facility] to discuss available options. The [place] recommends amniocentesis be offered to women age 35 and older. COMMENT: Comment . [facility] Comment: Brie Arora, Ph.D., [facility] Director References: Available Upon Request. Multiples Of Median Cutoffs For AFP Elevations Jacobo 2.5 Black 2.8 IDD 2.0 Twins 4.5 Abbreviation Definitions IDD - Insulin Dep Diabetes OSBR - Open Spina Bifida Risk For further inquiries contact [facility] at [phone]. This test was developed and its performance characteristics determined by [employer]. It has not been cleared or approved by the Food and Drug Administration. Performed at: [facility] [address] [facility], [place], [place] [id number] Family Services Specialist: Lian Hairston formerly [facility], Phone: [phone] 12/31/2024 3:43 PM EDT 12/31/2024 3:47 PM EDT Narrative [facility] - 01/03/2025 1:07 AM EDT N N LMP [id number] 1 17 N 1 Y 190 N N N N N White/ us Rosy [place]UGER LAB BLOOD ORDERABLES Final Resul t [facility] * RECURRENT VAGINITIS (HTRX) (12/10/2024 11:27 AM EDT) ATOPOBIUM VAGINAE 0.000 19.961 - 24.689 ppm 12/11/2024 7:39 AM EDT [facility] ATOPOBIUM VAGINAE Not Detected 19.961 - 24.689 ppm 12/11/2024 7:39 AM EDT [facility] BVAB 2,3 (BACTERIAL VAGINOSIS ASSOCIATED BACTERIA 2, 3); MOBILUNCUS SPP 0.000 19.961 - 24.689 ppm 12/11/2024 7:39 AM EDT [facility] BVAB 2,3 (BACTERIAL VAGINOSIS ASSOCIATED BACTERIA 2, 3); MOBILUNCUS SPP Not Detected 19.961 - 24.689 ppm 12/11/2024 7:39 AM EDT [facility] HAMILTON ALBICANS, PARAPSILOSIS, TROPICALIS 0.000 19.961 - 30.770 ppm 12/11/2024 7:39 AM EDT [facility] HAMILTON ALBICANS, PARAPSILOSIS, TROPICALIS Not Detected 19.961 - 30.770 ppm 12/11/2024 7:39 AM EDT [facility] HAMILTON GLABRATA 0.000 23.000 - 32.138 ppm 12/11/2024 7:39 AM EDT [facility] HAMILTON GLABRATA Not Detected 23.000 - 32.138 ppm 12/11/2024 7:39 AM EDT [facility] HAMILTON KRUSEI 0.000 23.000 - 32.271 ppm 12/11/2024 7:39 AM EDT [facility] HAMILTON KRUSEI Not Detected 23.000 - 32.271 ppm 12/11/2024 7:39 AM EDT [facility] CHLAMYDIA TRACHOMATIS 0.000 23.000 - 31.467 ppm 12/11/2024 7:39 AM EDT [facility] CHLAMYDIA TRACHOMATIS Not Detected 23.000 - 31.467 ppm 12/11/2024 7:39 AM EDT [facility] GARDNERELLA VAGINALIS 0.000 19.961 - 24.689 ppm 12/11/2024 7:39 AM EDT [facility] GARDNERELLA VAGINALIS Not Detected 19.961 - 24.689 ppm 12/11/2024 7:39 AM EDT [facility] MEGASPHAERA (TYPES 1, 2) 0.000 19.961 - 24.689 ppm 12/11/2024 7:39 AM EDT [facility] MEGASPHAERA (TYPES 1, 2) Not Detected 19.961 - 24.689 ppm 12/11/2024 7:39 AM EDT [facility] NEISSERIA GONORRHOEAE 0.000 23.000 - 32.117 ppm 12/11/2024 7:39 AM EDT [facility] NEISSERIA GONORRHOEAE Not Detected 23.000 - 32.117 ppm 12/11/2024 7:39 AM EDT [facility] TRICHOMONAS VAGINALIS 0.000 23.000 - 32.119 ppm 12/11/2024 7:39 AM EDT [facility] TRICHOMONAS VAGINALIS Not Detected 23.000 - 32.119 ppm 12/11/2024 7:39 AM EDT [facility] MYCOPLASMA GENITALIUM 0.000 19.961 - 24.689 ppm 12/11/2024 7:39 AM EDT [facility] MYCOPLASMA GENITALIUM Not Detected 19.961 - 24.689 ppm 12/11/2024 7:39 AM EDT [facility] Tissue 12/10/2024 11:2 7 AM EDT 12/11/2024 2:24 AM EDT us Rosy KRUGER LAB BLOOD ORDERABLES Final Resul t [facility] [address] [place] [address] * IGP,APTIMA HPV,AGE GDLN (12/10/2024 11:00 AM EDT) AGE GDLN ACOG TESTING Note . [facility] Comment: TESTS RESULT FLAG UNITS REF RANGE LAB Clinician Provided Cytology Information Source.............Endocervix Other.............. No. of containers..01 ThinPrep Vial Age Algo ACOG Enedina... 30 FLAG LEGEND: L-Low Normal,H-High Normal,LL-Alert Low,HH-Alert High <-Panic Low,>-Panic High,A-Abnormal,AA-Critical Abnormal Performed at: 01 =[facility] [address] Rossy Odonnell MD, IGP, APTIMA HPV, RFX 16/18,45 Note . [facility] Comment: TESTS RESULT FLAG UNITS REF RANGE LAB DIAGNOSIS: 02 NEGATIVE FOR INTRAEPITHELIAL LESION OR MALIGNANCY. Specimen adequacy: 02 Satisfactory for evaluation. No endocervical component is identified. An endocervical component is not commonly seen in the patient. Performed by: 02 Cadence Lucero Prom Burn Off Operator ([facility]) . 02 Note: Note 02 The Pap [...] <-Panic Low,>-Panic High,A-Abnormal,AA-Critical Abnormal Performed at: [address] [address] Rossy Odonnell MD, HPV APTIMA Negative Negative [facility] Comment: This nucleic acid amplification test detects fourteen high- risk HPV types (16,18,31,33,35,39,45,51,52,56,58,59,66,68) without differentiation. Performed at: =[facility] [id number] Family Services Specialist: Rossy Odonnell MD, Phone: [phone] Performed at: [address] [id number] Family Services Specialist: Rossy Odonnell MD, Phone: [phone] 12/10/2024 11:0 0 AM EDT 12/10/2024 1:32 PM EDT Narrative [facility] - 12/12/2024 3:08 PM EDT SPATULA-ALONE ENDOCERVIX Rosy KRUGER LAB BLOOD ORDERABLES Final Resul t Performing Organization Address [facility] de Phone Number [facility] * Pap Smear (12/10/2024 12:00 AM EDT) Swab Cervical swab / Unknown [facility] Joe Nurse LAB CYTOLOGY ORDERABLES Final Result Performing Organization Address [facility]/ZIP Co de Phone Number EXTERNAL LAB * Urine culture (11/08/2024 12:12 PM EDT) Urine Urine specimen obtained by clean catch procedure / Unknown Dimple Diaz DO LAB MICROBIOLOGY - GENERAL ORDER YADIEL Final Result Performing Organization Address [facility] Co de Phone Number EXTERNAL LAB from Last 3 Months Additional Health Concerns Active Problems Noted Date Diagnosed Date OB Reminders 10/19/2024 Insurance [facility] Care Teams Tool Design Checker Relationship Specialty Start Date End Date Unallocated, Noms Provider, [address] [place], [place] [id number] PCP - General Family Medicine 10/17/23 Amalia Bruce, TONIA [address] [place] [address] PCP - Capo Commercial 09/22/24
--- OUTSIDE RECORDS SUMMARY | 2025-02-01 08:22 | XMS_ITS | Clinical Summary ---
Author Organization [facility] Address [id number] [address] [place] [address] Care Team Providers Care Asphalt Blender Name Role Phone Unavailable Primary Care Provider Unavailabl e Social History Tobacco Use Types Packs/Day Years Used Date Smoking Tobacco: Never Assessed Childcare Answer Date Recorded Childcare Unknown 01/31/2019 Employment Answer Date Recorded Employment Unknown 01/31/2019 Comments Unknown Sex and Gender Information Value Date Recorded Sex Assigned at Not on file Legal Sex Female 8:37 PM EDT Gender Identity Not on file Sexual Orientation Not on file Plan of Treatment Not on file Medical Devices Not on file Insurance [employer]
--- OUTSIDE RECORDS SUMMARY | 2025-02-01 08:22 | XMS_ITS | Encounter Summary ---
Author Organization [facility] Address [address] [place] [address] Care Team Providers Care Clinical Laboratory Technologist Name Role Phone Unallocated, Noms Provider Primary Care Provi chrissy Amalia Bruce PRODUCT ASSURANCE ENGINEER Unavailable [phone] Encounter Details Date Type Department Care Team (Late st Contact Info) Description 12/26/2024 Orders Only [facility] [address] [place] [id number] Iman Saldana LPN [email or web address] [facility] [id number] Social History Tobacco Use Types Packs/Day Years [...] AM EDT Routine [facility] [address] [place] [address] Rosy Barton PA [address] [place] [address] documented as of this encounter Goals Goal Patient Goal Type Associated Problems Recent Progress Patient-Stated? Author Reminders Care Plan OB Reminders No Open Scheduling, Background documented as of this encounter Procedures Procedure Name Priority Date/Time Associated Diagnosis Comments PAP SMEAR Routine 12/10/2024 12:00 AM EDT documented in this encounter Results * Pap Smear (12/10/2024 12:00 AM EDT) Swab Cervical swab / Unknown us [facility] Joe Nurse LAB CYTOLOGY ORDERABLES Final Result EXTERNAL LAB documented in this encounter Visit Diagnoses Not on filedocumented in this encounter Additional Health Concerns Active Problems Noted Date Diagnosed Date OB Reminders 10/19/2024 documented as of this encounter Care Teams Clinical Laboratory Technologist Relationship Specialty Start Date End Date Unallocated, Noms Provider, [address] [place] [address] PCP - General Family Medicine 10/17/23 Amalia Bruce, TONIA [address] [place] [address] PCP - Capo Wild 09/22/24 documented as of this encounter
--- OUTSIDE RECORDS SUMMARY | 2025-02-01 08:22 | XMS_ITS | Encounter Summary ---
Author Organization [facility] Address [address] [place] [address] Care Team Providers Care Electrical Engineer Mep Name Role Phone Unallocated, Noms Provider Primary Care Provi chrissy Amalia Bruec GOODS LAYER Unavailable [phone] Reason for Visit * Reason Onset Date Comments Med Refill 10/23/2024 Encounter Details Date Type Department Care Team (Late Contact Info) Description 10/23/2024 Refill [facility] [address] [place] [address] Unallocated, Noms Provider, [address] [place], [place] [id number] Social History Tobacco Use Types Packs/Day Years [...] Encounters Date Type Department Care Team (Late Contact Info) Description 02/11/2025 11:30 AM EDT Routine [facility] [address] [place] [phone] Rosy Barton PA [address] [facility] [place] [address] documented as of this encounter Goals Goal Patient Goal Type Associated Problems Recent Progress Patient-Stated? Author Reminders Care Plan OB Reminders No Open Scheduling, Background documented as of this encounter Visit Diagnoses Not on filedocumented in this encounter Additional Health Concerns Active Problems Noted Date Diagnosed Date OB Reminders 10/19/2024 documented as of this encounter Care Teams Electrical Engineer Mep Relationship Specialty Start Date End Date Unallocated, Noms Provider, [place] [address] PCP - General Family Medicine 10/17/23 Amalia Bruce NP [address] [place] [address] PCP - Capo Wild 09/22/24 documented as of this encounter
--- OUTSIDE RECORDS SUMMARY | 2025-02-01 08:22 | XMS_ITS | Encounter Summary ---
Author Organization [facility] Address [address] [place] [address] Care Team Providers Care Client Services Analyst Name Role Phone Dasha Lujan MD Primary Care Provider Sonia Dickerson PIT LABORER.HEALTH INSURANCE AGENT Unavailable Fatimah Geiger PIT LABORER.HEALTH INSURANCE AGENT Unavailable Ruth Richardson PIT LABORER.HEALTH INSURANCE AGENT Unavailable Berenice Rivas APRN.HEALTH INSURANCE AGENT Unavailable Zarina Pope PA-C Unavailable Source Comments In the event this information is protected by the Federal Confidentiality of Alcohol and Drug AbusePatient Records regulations: The Federal rules restrict any use of the information to criminally investigate or prosecute any alcohol or drug abuse patient.[facility] Encounter Details Date Type Department Care Team (Late st Contact Info) Description 06/18/2024 Patient Msg Internal Medicine [address] [place] [address] Berenice Rivas APRN.HEALTH INSURANCE AGENT [address] [place] [address] Appointment Request Social History Tobacco Use Types [...] often do you attend chur ch or samaritan services? Never 07/19/2023 Do you belong to any clubs o r organizations such as evangelical groups, unions, fraternal or athletic groups, or [...] Answer Date Recorded PHQ-2 score 0 07/22/2023 [facility] of Occupat ional Health - Occupational Stress [...] place to sleep or slept in a detention (including now)? No 07/19/2023 Area Deprivation Index Answer Date Vern rded National Score (1-100), lower number is lower ri sk 90 07/19/2023 State Score (1-10), lower number is lower risk 8 07/19/2023 Data from: https://www.neighborhoodatlas.medicine.[facility].edu/. Last address used for calculation [address] [...] on filedocumented in this encounter Care Teams Client Services Analyst Relationship Specialty [place] [address] [place] [address] PCP - General Internal Medicine 01/11/22 Sonia Dickerson, BRETT.HEALTH INSURANCE AGENT [address] [place] [address] Rn Transport Internal Medicine 07/30/24 08/29/24 Fatimah Geiger PIT LABORER.HEALTH INSURANCE AGENT [address] [place] [address] [facility] Internal Medicine 07/30/24 Ruth Richardson APRN.HEALTH INSURANCE AGENT [address] [place] [address] [facility] Internal Medicine 07/30/24 08/29/24 Berenice Rivas PIT LABORER.HEALTH INSURANCE AGENT [address] [place] [address] [facility] Internal Medicine 07/30/24 08/29/24 Zarina Pope PA-C [address] [place] [address] [facility] Internal Medicine 07/30/24 08/29/24 documented as of this encounter
--- OUTSIDE RECORDS SUMMARY | 2025-02-01 08:26 | XMS_ITS | CCD ---
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 Name Role Phone Unavailable Primary Care Provider UnavailDasha Kern MD Primary Care Provider MD Dasha Lujan Primary Care Provider BRETT Breaux Attending Provider [phone] Reena Breaux Admitting Unavailable Reena Breaux Attending Unavailable Tai Sunir C Primary Care Unavailable Reena Breaux Admitting Unavailable Reena Breaux Attending Unavailable Lujan, Sunir C Primary Care Unavailable Dasha Lujan [...] Unallocated , Noms Provider Primary Care Provi [facility] Edu Alvarez NP Unavailable Edu Alvarez NP Unavailable SINA GARNER Attending Unavailable SINA GARNER Referring Unavailable ROSCOE DIAZ Attending Unavailable ROSY QUIROZ Attending Unavailable ROSCOE DIAZ Attending Unavailable EDU ALVAREZ Attending Unavailable Medications Current Medications Medication Drug [...] omeprazole 20 mg delayed release oral capsule (20 sources) Proton Pump Inhibitor Start: 04-16-2022 Omeprazole Magnesium (ACID PIANO ASSEMBLER, OMEPRAZOLE,) 20 mg cpDR 04/16/2022 Active take [...] 30 days. BMI 29.76 polyethylene glycol 3350 29217 mg powder for oral solution (2 sources) Osmotic Laxative Start: End: 4 take 17 g by mouth once polyethylene glycol, PEG, 3350 (Glycolax) 17 GM/SCOOP powder Indications: Colonoscopy Take 238 g by mouth 1 (one) time for 1 dose Take as detailed from clinic hand out for colonoscopy prep 238 g 07/25/2024 07/25/2024 Active Vit-Fe Fumarate-FA ( 19) 29-1 MG chewable tablet (12 sources) Start: 5 Vit-Fe Fumarate-FA ( 19) [...] Episodic Immunizations and screening for infectious disease (10 sources) Patient encounter status; Translations: [Encounter for [...] 06-29-2024 Episodic Other and delivery including normal (6 sources) ; Translations: [Encounter for supervision of [...] [17 weeks gestation of ] 12-10-2024 Episodic Residual codes; unclassified (2 sources) Gestation period, 21 weeks; Translations: [21 weeks gestation of ] 01-10-2025 Episodic Unclassified (12 sources) OB Reminders Onset: 10-19-2024 Past or Other Problems Problem Classification [...] Test Name Value Interpretation Reference Range Facility Urinalysis macro (dipstick) panel (U)on 01-10-2025 Bilirubin, UA Negative Negative - 4(70) +++ mg/dL [facility] Blood, UA Negative Negative - 50 Iraj/mcL [facility] Clarity, UA Clear [facility] Color, UA Yellow [facility] Glucose, UA Negative Negative - 1999(110) ++++ mg/dL [facility] Interpretation and review of laboratory results Abnormal [facility] Ketones, UA Positive Negative - 160(16) ++++ mg/dL [facility] Leukocytes, UA Negative Negative - 500+++ Mari/mcL [facility] Nitrite, UA Negative Negative - Positive [facility] pH, UA 6 5 - 9 [facility] Protein, UA Negative Negative - 1999(20) ++++ mg/dL [facility] Spec Grav, UA 1.01 1 - 1.03 [facility] Urobilinogen, UA 0.2 0.2 - 12 mg/dL [facility] No Panel InformationOrdered By: Radiologist Radiology on 01-02-2025 [facility] Work Phone: No Panel Informationon 01-02 Radiology Study observation (narrative) [facility] US OB ANATOMYon 01-02-[address] [address] Ultrasound Report Signed Patient: CARLY ZAMARRIPA MR#: [id number] : 1990 Acct:[id number] Age/Sex: 34 / F ADM Date: 01/02/25 Loc: US Attending Dr: Roscoe Diaz D.O. Ordering Physician: Roscoe Diaz D.O. Date of Service: 01/02/25 Procedure(s): US OB anatomy Accession Number(s): [id number] cc: Roscoe Diaz D.O.; Physician,Non-Staff MMickey [address] [address] Patient Name: CARYL ZAMARRIPA MRN: [id number] date: 1990 Sex: F Assigned Patient Location: US Current Patient Location: US Accession/Order Number: [id number] Exam Date: 01/02/2025 22:40 Report Date: 01/02/2025 22:47 At the request of: ROSCOE DIAZ DO Procedure: US OB cervical length [...] Briscoe M.D. 01/02/2025 10:47 PM Dictation Location: [employer] Electronically authenticated by: [id number] Y Date: 01/02/2025 22:47 Dictated By: Suraj Briscoe D.O. Signed By: 01/02/25 5230 DD/ 46 TD/TT: Textile Conservator: [facility] Radiology, Radiologist, - 01/02/2025 [place] [address] Ultrasound Report Signed Patient: CARYL ZAMARRIPA MR#: [id number] : 1990 Acct:[id number] Age/Sex: 34 / F ADM Date: 01/02/25 Loc: US Attending Dr: Roscoe Diaz D.O. Ordering Physician: Roscoe Diaz D.O. Date of Service: 01/02/25 Procedure(s): US OB anatomy Accession Number(s): [id number] cc: Roscoe Diaz D.O.; Physician,Non-Staff MMickey [place] [id number] Patient Name: CARYL ZAMARRIPA MRN: [id number] date: 1990 Sex: F Assigned Patient Location: US Current Patient Location: US Accession/Order Number: [id number] Exam Date: 01/02/2025 22:40 Report Date: 01/02/2025 22:47 At the request of: ROSCOE DIAZ DO Procedure: US OB cervical length [...] Briscoe M.D. 01/02/2025 10:47 PM Dictation Location: [place] [address] Electronically authenticated by: [id number] Y Date: 01/02/2025 22:47 Dictated By: Suraj Briscoe D.O. Signed By: 01/02/252249 DD/ 46 TD/TT: Textile Conservator: [facility] OB CERVICAL LENGTHon 12-[address] [place] [address] Ultrasound Report Signed Patient: CARYL ZAMARRIPA MR#: [id number] : 1990 Acct:[id number] Age/Sex: 34 / F ADM Date: 01/02/25 Loc: US Attending Dr: Roscoe Diaz D.O. Ordering Physician: Roscoe Diaz D.O. Date of Service: 01/02/25 Procedure(s): US OB cervical length Accession Number(s): [id number] cc: Roscoe Diaz D.O.; Physician,Non-Staff Shimon [place] [id number] Patient Name: CARYL ZAMARRIPA MRN: [id number] date: 1990 Sex: F Assigned Patient Location: Current Patient Location: US Accession/Order Number: [id number] Exam Date: 01/02/2025 22:40 Report Date: 01/02/2025 22:47 At the request of: ROSCOE DIAZ DO Procedure: US OB cervical length [...] Briscoe M.D. 01/02/2025 10:47 PM Dictation Location: [place] [address] Electronically authenticated by: [id number] Y Date: 01/02/2025 22:47 Dictated By: Suraj Briscoe D.O. Signed By: 01/02/252249 DD/ 46 TD/TT: Textile Conservator: [facility] Radiology, Radiologist, - 01/02/2025 [place] [address] Ultrasound Report Signed Patient: CARYL ZAMARRIPA MR#: [id number] : 1990 Acct:[id number] Age/Sex: 34 / F ADM Date: 01/02/25 Loc: US Attending Dr: Roscoe Diaz D.O. Ordering Physician: Roscoe Diaz D.O. Date of Service: 01/02/25 Procedure(s): US OB cervical length Accession Number(s): [id number] cc: Roscoe Diaz D.O.; Physician,Non-Staff [place]imon [place] [id number] Patient Name: CARYL ZAMARRIPA MRN: [facility]:[id number] date: 1990 Sex: F Assigned Patient Location: Current Patient Location: US Accession/Order Number: [id number] Exam Date: 01/02/2025 22:40 Report Date: 01/02/2025 22:47 At the request of: ROSCOE DIAZ DO Procedure: US OB cervical length [...] Briscoe M.D. 01/02/2025 10:47 PM Dictation Location: [place] [address] Electronically authenticated by: [id number] Y Date: 01/02/2025 22:47 Dictated By: Suraj Briscoe D.O. Signed By: 01/02/252249 DD/ 46 TD/TT: Textile Conservator: [facility] Tanner HPV,AGE GDLNon AGE GDLN ACOG TESTING Note . [facility] Comment on above: TESTS RESULT FLAG UN ITS REF RANGE LAB Clinician Provided Cytology Information Source.............[employer] Other.............. No. of containers..01 ThinPrep Vial Age Algo ACOG Enedina... 01 FLAG LEGEND: L-Low Normal,H-High Normal,LL-Alert Low,HH-Alert High <-Panic Low,>-Panic High,A-Abnormal,AA-Critical Abnormal Performed at: 01 =G [address] [place] [address] Rossy Odonnell MD, HPV APTIMA Negative Negative [facility] Comment on above: This nucleic acid am plification test detects fourteen high- risk HPV types (16,18,31,33,35,39,45,51,52,56,58,59,66,68) without differentiation. Performed at: =[facility] [id number] Internal Communications Writer: Rossy Odonnell MD, Phone: [phone] Performed at: [address] [id number] Internal Communications Writer: Rossy Odonnell MD, Phone: [phone] IGP, APTIMA HPV, RFX 16/18,45 Note . [facility] Comment on above: TESTS RESULT FLAG U NITS REF RANGE LAB DIAGNOSIS: 02 NEGATIVE FOR INTRAEPITHELIAL LESION OR MALIGNANCY. Specimen adequacy: 02 Satisfactory for evaluation. No endocervical component is identified. An endocervical component is not commonly seen in the patient. Performed by: 02 Cadence Lucero Clinical Documentation Improvement Specialist ([facility]) . 02 Note: Note 02 The [...] <-Panic Low,>-Panic High,A-Abnormal,AA-Critical Abnormal Performed at: 02 [facility] [address] [place] [address] Rossy Odonnell MD, [facility] RECURRENT VAGINITIS (HTRX)on 12-11-2024 ATOPOBIUM VAGINAE 0 [facility] ATOPOBIUM VAGINAE Not detected [facility] BVAB 2,3 (BACTERIAL VAGINOSIS ASSOCIATED BACTERIA 2, 3); MOBILUNCUS SPP 0 [facility] BVAB 2,3 (BACTERIAL VAGINOSIS ASSOCIATED BACTERIA 2, 3); MOBILUNCUS SPP Not detected [facility] HAMILTON ALBICANS, PARAPSILOSIS, TROPICALIS 0 [facility] HAMILTON ALBICANS, PARAPSILOSIS, TROPICALIS Not detected [facility] H[place] GLABRATA 0 [facility] HAMILTON GLABRATA Not detected [facility] HAM[place] KRUSEI 0 [facility] HAMILTON KRUSEI Not detected [facility] CHLAMYDIA TRACHOMATIS 0 NOM [facility] CHLAMYDIA TRACHOMATIS Not detected N S [facility] GARDNERELLA VAGINALIS 0 NOM [address] [facility] GARDNERELLA VAGINALIS Not detected N [facility] MEGASPHAERA (TYPES 1, 2) 0 [facility] MEGASPHAERA (TYPES 1, 2) Not detected [facility] MYCOPLASMA GENITALIUM 0 [facility] S [facility] MYCOPLASMA GENITALIUM Not detected N [facility] NEISSERIA GONORRHOEAE 0 [facility] NEISSERIA GONORRHOEAE Not detected N [facility] TRICHOMONAS VAGINALIS 0 [facility] S [facility] TRICHOMONAS VAGINALIS Not detected N [facility] Urinalysis macro (dipstick) panel (U)on 12-10-2024 Bilirubin, UA Negative Negative - 4(70) +++ mg/dL [facility] Blood, UA Negative Negative - 50 Iraj/mcL [facility] Clarity, UA Clear [facility] Color, UA Yellow [facility] Glucose, UA Negative Negative - 1999(110) ++++ mg/dL [facility] Interpretation and review of laboratory results Normal [facility] Ketones, UA Negative Negative - 160(16) ++++ mg/dL [facility] Leukocytes, UA Trace Negative - 500+++ Mari/mcL [facility] Nitrite, UA Negative Negative - Positive [facility] pH, UA 6 5 - 9 [facility] Protein, UA Negative Negative - 1999(20) ++++ mg/dL [facility] Spec Grav, UA 1.01 1 - 1.03 [facility] Urobilinogen, UA 0.2 0.2 - 12 mg/dL [facility] Urinalysis macro (dipstick) panel (U)on 11-08-2024 Bilirubin, UA Negative Negative - 4(70) +++ mg/dL [facility] Blood, UA Negative Negative - 50 Iraj/mcL [facility] Clarity, UA Clear [facility] Color, UA Yellow [facility] Glucose, UA Negative Negative - 1999(110) ++++ mg/dL [facility] Interpretation and review of laboratory results Normal [facility] Ketones, UA Negative Negative - 160(16) ++++ mg/dL [facility] Leukocytes, UA Negative Negative - 500+++ Mari/mcL [facility] Nitrite, UA Negative Negative - Positive [facility] pH, UA 6 5 - 9 [facility] Protein, UA Negative Negative - 1999(20) ++++ mg/dL [facility] Spec Grav, UA 1.015 1 - 1.03 [facility] Urobilinogen, UA 0.2 0.2 - 12 mg/dL [facility] ALL CBC WITH AUTO DIFFon BASOPHILS ABSOLUTE AUTO 0 N [facility] Basophils/100 WBC (Bld) 0.4 % 0.2 - 2.0 % [facility] Eosinophils/100 WBC (Bld) 1.2 % 0.9 - 7.0 % [facility] Erythrocyte distribution width (RBC) [Ratio] 12.4 % 11.0 - 15.0 % [facility] Hematocrit (Bld) [Volume fraction] 33.7 % Low 36.0 - 48.0 % [facility] Hemoglobin (Bld) [Mass/Vol] 11.9 g/dL Low 12.0 - 16.0 g/dL [facility] IMMATURE GRANULOCYTES ABS AUTO 0.02 [facility] Immature granulocytes/100 WBC (Bld) 0.2 % 0.0 - 0.5 % [facility] Interpretation and review of laboratory results Abnormal [facility] LYMPHOCYTES ABSOLUTE AUTO 2.2 [facility] Lymphocytes/100 WBC (Bld) 27.2 % 20.5 - 60.0 % [facility] MCH (RBC) [Entitic mass] 33.5 pg 26. 7 - 34.0 pg [facility] MCHC (RBC) [Mass/Vol] 35.3 g/dL High 29.9 - 35.2 g/dL [facility] MCV (RBC) [Entitic vol] 94.9 fL 81.0 - 99.0 fL [facility] MONOCYTES ABSOLUTE AUTO 0.4 N [facility] Monocytes/100 WBC (Bld) 4.9 % 1.7 - 12.0 % [facility] NEUTROPHILS ABSOLUTE AUTO 5.4 [facility] Neutrophils/100 WBC (Bld) 66.1 % 43.0 - 75.0 % [facility] Platelet mean volume (Bld) [Entitic vol] 11.2 fL 9.5 - 13.5 fL [facility] EO # 0.1 [facility] PLT 169 [facility] RBC 3.55 Low [facility] WBC 8.2 [facility] HCG ( test) Ql (U)o n 10-18-2024 Interpretation and review of laboratory results Abnormal [facility] Preg Test, Ur Positive Negative [facility] US OB TRANSVAGINALon 025 US OB TRANSVAGINAL [...] the right ovary was not visualized. Electronically Signed:Electronicall y signed by BRITTANY FERREIRA II, MD, PHD at 20-Oct-2024 07:21:51 AM [facility] Normal Not Available Comment on above: Order Comment: US OB TRANSVAGINAL No LMP recorded. Urinalysis macro (dipstick) panel (U)on 10-18-2024 Bilirubin, UA Negative Negative - 4(70) +++ mg/dL [facility] Blood, UA Negative Negative - 50 Iraj/mcL [facility] Clarity, UA Clear [facility] Color, UA Yellow [facility] Glucose, UA Negative Negative - 1999(110) ++++ mg/dL [facility] Interpretation and review of laboratory results Normal [facility] Ketones, UA Negative Negative - 160(16) ++++ mg/dL [facility] Leukocytes, UA Negative Negative - 500+++ Mari/mcL [facility] Nitrite, UA Negative Negative - Positive [facility] pH, UA 6 5 - 9 [facility] Protein, UA Negative Negative - 1999(20) ++++ mg/dL [facility] Spec Grav, UA 1.01 1 - 1.03 [facility] Urobilinogen, UA 1.0 0.2 - 12 mg/dL [facility] CNOVon 06-29-2024 CNOV Office Visit (INMAVN) CARYL ZAMARRIPA ([id number]) 1990 F Date Time Provider Department 06/29/24 12:40 [address] [facility] During your visit today, we recorded the following information about you: Pulse Blood pressure Weight 65/minute 101/68 75.8 kg Berenice Zepeda APRN.[facility] 06/29/2024 1:25 PM Signed Caryl Zamarripa [...] - PHENTERMINE 37.5 MG TABLET Berenice Zepeda APRN.INDUSTRIAL ACCOUNTANT Allergies As of Date: 06/29/2024 (No Known Allergies) Date Reviewed: 06/29/2024 Reviewed by: Goldie Peter MA - Fully Assessed Reason for Visit: Follow Up [171] Primary Visit Diagnosis:Encounter for weight management [Z76.89] Other Visit Diagnosis:Overweight [E66.3] Order(s):Phentermine HCl 37.5 mg tabletTake 1 tablet by mouth once daily for 30 days. BMI 29.58kg/m2Disp: 30 tabletRfl: 0 Prescriptions as of 06/29/2024 - Phentermine HCl 37.5 mg tablet Take 1 tablet by mouth once daily for 30 days. BMI 29.58kg/m2 - Omeprazole Magnesium (ACID PIANO ASSEMBLER, OMEPRAZOLE,) 20 mg cpDR Problem List As Of Date: 06/29/2024 (None) Prescriptions ordered this encounter Disp Refills Start End PHENTERMINE 37.5 MG TABLET 30 t* 0 06/29/2024 07/29/2024 Route: ORAL Sig: Take 1 tablet by mouth once daily for 30 days. BMI 29.58kg/m2 Encounter Status:Closed by BERENICE ZEPEDA on 06/29/24 [facility] CNOVon 08-23-2023 CNOV Office Visit (INMAVN) CARYL ZAMARRIPA ([id number]) 1990 F Date Time Provider Department 08/23/23 4:00 PM BERENICE ZEPEDA [facility] During your visit today, we recorded the following information about you: Pulse Blood pressure Weight Last Period 54/minute 121/77 77.6 kg 08/08/23 Berenice Zepeda APRN.INDUSTRIAL ACCOUNTANT 08/25/2023 12:23 PM Signed Caryl Ankur ObrienZamarripa is a 32 year old female here [...] - PHENTERMINE 37.5 MG TABLET Berenice Zepeda APRN.INDUSTRIAL ACCOUNTANT Allergies As of Date: 08/23/2023 (No Known Allergies) Date Reviewed: 08/23/2023 Reviewed by: Renata Bagley MA - Fully Assessed Reason for Visit: F/U 1 month [1175] Primary Visit Diagnosis:Overweight (BMI 25.0-29.9) [E66.3] Other Visit Diagnosis:Encounter for weight management [Z76.89] Order(s):Phentermine HCl 37.5 mg tabletTake 1 tablet by [...] for 2 days. - Omeprazole Magnesium (ACID PIANO ASSEMBLER, OMEPRAZOLE,) 20 mg cpDR Problem List As [...] Status:Closed by BERENICE ZEPEDA on 08/25/[address] [facility] CBC W Auto Differential pane l (Bld)on 07-26-2023 Basophils (Bld) [#/Vol] 0.03 10*3/uL Normal <0.[address] [facility] Comment on above: Order Comment: Speci men Type: BLOOD SPECIMEN Ordering Facility: [facility] Address: [address] [place] [address] Performed By: #### 5 7021-8 #### [facility] CLIA [id number] [address] [place] [address] Basophils/100 WBC (Bld) 0.6 % Normal C [facility] Comment on above: Order Comment: Speci men Type: BLOOD SPECIMEN Ordering Facility: [facility] Address: [address] [place] [address] Performed By: #### 5 7021-8 #### [facility] CLIA [id number] [address] [place] [address] Differential cell count method Nom (Bld) Auto Normal [facility] Comment on above: Order Comment: Speci men Type: BLOOD SPECIMEN Ordering Facility: [facility] Address: [address] [place] [address] Performed By: #### 5 7021-8 #### [facility] CLIA [id number] [address] [place] [address] Eosinophils (Bld) [#/Vol] 0.13 10*3/uL Normal <0.[address] [facility] Comment on above: Order Comment: Speci men Type: BLOOD SPECIMEN Ordering Facility: [facility] Address: [address] [place] [address] [place] [address] Performed By: #### 5 7021-8 #### [facility] CLIA [id number] [address] [place] [address] Eosinophils/100 WBC (Bld) 2.6 % Normal [facility] Comment on above: Order Comment: Speci men Type: BLOOD SPECIMEN Ordering Facility: [facility] Address: [address] [place] [address] Performed By: #### 5 7021-8 #### [facility] CLIA [id number] [address] [place] [address] Erythrocyte distribution width (RBC) [Ratio] 12.1 % Normal 11.5-15.[address] [facility] Comment on above: Order Comment: Speci men Type: BLOOD SPECIMEN Ordering Facility: [facility] Address: [address] [place] [address] Performed By: #### 5 7021-8 #### [facility] CLIA [id number] [address] [place] [address] Hematocrit (Bld) [Volume fraction] 37.0 % Normal 36.0-46.[address] [facility] Comment on above: Order Comment: Speci men Type: BLOOD SPECIMEN Ordering Facility: [facility] Address: [address] [place] [address] Performed By: #### 5 7021-8 #### [facility] CLIA [id number] [address] [place] [address] Hemoglobin (Bld) [Mass/Vol] 12.6 g/dL Normal 11.5-15.[address] [facility] Comment on above: Order Comment: Speci men Type: BLOOD SPECIMEN Ordering Facility: [facility] Address: [address] [place] [address] Performed By: #### 5 7021-8 #### [facility] CLIA [id number] [address] [place] [address] Immature granulocytes (Bld) [#/Vol] 10*3/uL Normal <0.[address] [facility] Comment on above: Order Comment: Speci men Type: BLOOD SPECIMEN Ordering Facility: [facility] Address: [address] [place] [address] Performed By: #### 5 7021-8 #### [facility] CLIA [id number] [address] [place] [address] Immature granulocytes/100 WBC (Bld) 0.2 % Normal [facility] Comment on above: Order Comment: Speci men Type: BLOOD SPECIMEN Ordering Facility: [facility] Address: [address] [place] [address] Performed By: #### 5 7021-8 #### [facility] CLIA [id number] [address] [place] [address] Lymphocytes (Bld) [#/Vol] 1.57 10*3/uL Normal 1.00-4.[address] [facility] Comment on above: Order Comment: Speci men Type: BLOOD SPECIMEN Ordering Facility: [facility] Address: [address] [place] [address] Performed By: #### 5 7021-8 #### [facility] CLIA [id number] [address] [place] [address] Lymphocytes/100 WBC (Bld) 31.2 % Normal [facility] Comment on above: Order Comment: Speci men Type: BLOOD SPECIMEN Ordering Facility: [facility] Address: [address] [place] [address] Performed By: #### 5 7021-8 #### [facility] CLIA [id number] [address] [place] [address] MCH (RBC) [Entitic mass] 32.2 pg Normal 26.0-34.[address] [facility] Comment on above: Order Comment: Speci men Type: BLOOD SPECIMEN Ordering Facility: [facility] Address: [address] [place] [address] Performed By: #### 5 7021-8 #### [facility] CLIA [id number] [address] [place] [address] MCHC (RBC) [Mass/Vol] 34.1 g/dL Normal 30.5-36.0 [facility] Comment on above: Order Comment: Speci men Type: BLOOD SPECIMEN Ordering Facility: [facility] Address: [address] [place] [address] Performed By: #### 5 7021-8 #### [facility] CLIA [id number] [address] [place] [address] MCV (RBC) [Entitic vol] 94.6 fL Normal 80.0-100.0 C [facility] Comment on above: Order Comment: Speci men Type: BLOOD SPECIMEN Ordering Facility: [facility] Address: [address] [place] [address] Performed By: #### 5 7021-8 #### [facility] CLIA [id number] [address] [place] [address] Monocytes (Bld) [#/Vol] 0.32 10*3/uL Normal <0.[address] [facility] Comment on above: Order Comment: Speci men Type: BLOOD SPECIMEN Ordering Facility: [facility] Address: [address] [place] [address] Performed By: #### 5 7021-8 #### [facility] CLIA [id number] [address] [place] [address] Monocytes/100 WBC (Bld) 6.3 % Normal C [facility] Comment on above: Order Comment: Speci men Type: BLOOD SPECIMEN Ordering Facility: [facility] Address: [address] [place] [address] Performed By: #### 5 7021-8 #### [facility] CLIA [id number] [address] [place] [address] 11860 Neutrophils (Bld) [#/Vol] 2.98 10*3/uL Normal 1.45-7.[address] [facility] Comment on above: Order Comment: Speci men Type: BLOOD SPECIMEN Ordering Facility: [facility] Address: [address] [place] [address] Performed By: #### 5 7021-8 #### [facility] CLIA [id number] [address] [place] [address] Neutrophils/100 WBC (Bld) 59.1 % Normal [facility] Comment on above: Order Comment: Speci men Type: BLOOD SPECIMEN Ordering Facility: [facility] Address: [address] [place] [address] Performed By: #### 5 7021-8 #### [facility] CLIA [id number] [address] [place] [address] Nucleated RBC (Bld) [#/Vol] 10*3/uL Normal <0.[address] [facility] Comment on above: Order Comment: Speci men Type: BLOOD SPECIMEN Ordering Facility: [facility] Address: [address] [place] [address] Performed By: #### 5 7021-8 #### [facility] CLIA [id number] [address] [place] [address] 68862 Nucleated RBC/100 WBC (Bld) [Ratio] 0.0 /100 WBC Normal [facility] Comment on above: Order Comment: Speci men Type: BLOOD SPECIMEN Ordering Facility: [facility] Address: [address] [place] [address] Performed By: #### 5 7021-8 #### [facility] CLIA [id number] [address] [place] [address] 50085 Platelet mean volume (Bld) [Entitic vol] 10.6 fL Normal 9.0-12.[address] [facility] Comment on above: Order Comment: Speci men Type: BLOOD SPECIMEN Ordering Facility: [facility] Address: [address] [place] [address] Performed By: #### 5 7021-8 #### [facility] CLIA [id number] [address] [place] [address] 17983 Platelets (Bld) [#/Vol] 226 10*3/uL Normal 150-[address] [facility] Comment on above: Order Comment: Speci men Type: BLOOD SPECIMEN Ordering Facility: [facility] Address: [address] [place] [address] Performed By: #### 5 7021-8 #### [facility] CLIA [id number] [address] [place] [address] 85044 RBC (Bld) [#/Vol] 3.91 10*6/uL Normal 3.90-5.20 [facility] Comment on above: Order Comment: Speci men Type: BLOOD SPECIMEN Ordering Facility: [facility] Address: [address] [place] [address] Performed By: #### 5 7021-8 #### [facility] CLIA [id number] [address] [place] [address] 81943 WBC (Bld) [#/Vol] 5.04 10*3/uL Normal 3.70-11.00 [facility] Comment on above: Order Comment: Speci men Type: BLOOD SPECIMEN Ordering Facility: [facility] Address: [address] [place] [address] Performed By: #### 5 7021-8 #### [facility] CLIA [id number] [address] [place] [address] 12114 Comprehensive metabolic 2000 panelon 07-26-2023 Albumin [Mass/Vol] 4.4 g/dL Normal 3.9-4.9 [facility] Comment on above: Order Comment: Speci men Type: BLOOD SPECIMEN Ordering Facility: [facility] Address: [address] [place] [address] Performed By: #### 2 4323-8 #### [facility] CLIA [id number] [address] [place] [address] 39402 ALP [Catalytic activity/Vol] 40 U/L Normal 34-[address] [facility] Comment on above: Order Comment: Speci men Type: BLOOD SPECIMEN Ordering Facility: [facility] Address: [address] [place] [address] Performed By: #### 2 4323-8 #### [facility] CLIA [id number] [address] [place] [address] 06250 ALT [Catalytic activity/Vol] 5 U/L Low 7-[address] [facility] Comment on above: Order Comment: Speci men Type: BLOOD SPECIMEN Ordering Facility: [facility] Address: [address] [place] [address] Performed By: #### 2 4323-8 #### [facility] CLIA [id number] [address] [place] [address] Anion gap [Moles/Vol] 8 mmol/L Low 9-18 [facility] Comment on above: Order Comment: Speci men Type: BLOOD SPECIMEN Ordering Facility: [facility] Address: [address] [place] [address] Performed By: #### 2 4323-8 #### [facility] CLIA [id number] [address] [place] [address] 01842 AST [Catalytic activity/Vol] 7 U/L Low 13-[address] [facility] Comment on above: Order Comment: Speci men Type: BLOOD SPECIMEN Ordering Facility: [facility] Address: [address] [place] [address] Performed By: #### 2 4323-8 #### [facility] CLIA [id number] [address] [place] [address] 15090 Bilirubin [Mass/Vol] 0.6 mg/dL Normal 0.2-1.3 [facility] Comment on above: Order Comment: Speci men Type: BLOOD SPECIMEN Ordering Facility: [facility] Address: [address] [place] [address] Performed By: #### 2 4323-8 #### [facility] CLIA [id number] [address] [place] [address] Calcium [Mass/Vol] 9.5 mg/dL Normal 8.5-10.2 [facility] Comment on above: Order Comment: Speci men Type: BLOOD SPECIMEN Ordering Facility: [facility] Address: [address] [place] [address] Performed By: #### 2 4323-8 #### [facility] CLIA [id number] [address] [place] [address] 72893 Chloride [Moles/Vol] 105 mmol/L Normal 97-105 [facility] Comment on above: Order Comment: Speci men Type: BLOOD SPECIMEN Ordering Facility: [facility] Address: [address] [place] [address] Performed By: #### 2 4323-8 #### [facility] CLIA [id number] [address] [place] [address] CO2 [Moles/Vol] 27 mmol/L Normal 22-[address] [facility] Comment on above: Order Comment: Speci men Type: BLOOD SPECIMEN Ordering Facility: [facility] Address: [address] [place] [address] Performed By: #### 2 4323-8 #### [facility] CLIA [id number] [address] [place] [address] 54450 Creatinine [Mass/Vol] 0.76 mg/dL Normal 0.58-0.96 [facility] Comment on above: Order Comment: Speci men Type: BLOOD SPECIMEN Ordering Facility: [facility] Address: [address] [place] [address] Performed By: #### 2 4323-8 #### [facility] CLIA [id number] [address] [place], [place] [address] Creatinine and Glomerular filtration rate.predicted panel (S/P/Bld) 108 mL/min/1.73m??? Normal >=[address] [facility] Comment on above: Order Comment: Speci men Type: BLOOD SPECIMEN Ordering Facility: [facility] Address: [address] [place] [address] Result Comment: Erma mated Glomerular Filtration Rate [...] GFR. Performed By: #### 2 4323-8 #### [facility] CLIA [id number] [address] [place] [address] Glucose [Mass/Vol] 93 mg/dL Normal 74-99 [facility] Comment on above: Order Comment: Mary head Type: BLOOD SPECIMEN Ordering Facility: [facility] Address: [address] [place], [place] [address] Result Comment: The [place] Diabetes Association (ADA) provides guidance for cutoff [...] Standards of Medical Care in Diabetes 2016, [place] Diabetes Association. Diabetes Care. 2016.39(Suppl 1). Performed By: #### 2 4323-8 #### [facility] CLIA [id number] [address] [place] [address] 50476 Potassium [Moles/Vol] 4.2 mmol/L Normal 3.7-5.1 [facility] Comment on above: Order Comment: Mary head Type: BLOOD SPECIMEN Ordering Facility: [facility] Address: [address] [place], [place] [address] Performed By: #### 2 4323-8 #### [facility] CLIA [id number] [address] [place] [address] 83547 Protein [Mass/Vol] 7.2 g/dL Normal 6.3-8.0 [facility] Comment on above: Order Comment: Mary head Type: BLOOD SPECIMEN Ordering Facility: [facility] Address: [address] [place] [address] Performed By: #### 2 4323-8 #### [facility] CLIA [id number] [address] [place] [address] Sodium [Moles/Vol] 140 mmol/L Normal 136-144 [facility] Comment on above: Order Comment: Speci men Type: BLOOD SPECIMEN Ordering Facility: [facility] Address: [address] [place] [address] Performed By: #### 2 4323-8 #### [facility] CLIA [id number] [address] [place] [address] 05214 Urea nitrogen [Mass/Vol] 11 mg/dL Normal 7-[address] [facility] Comment on above: Order Comment: Speci men Type: BLOOD SPECIMEN Ordering Facility: [facility] Address: [address] [place] [address] Performed By: #### 2 4323-8 #### [facility] CLIA [id number] [address] [place], [place] [address] HBV surface Ab Ql (S)on HBV surface Ab Qn (S) <8.00 Normal [facility] Comment on above: Order Comment: Speci men Type: BLOOD SPECIMEN Ordering Facility: [facility] Address: [address] [place] [address] Result Comment: <8 m IU/mL: No serological evidence of immunity to Hepatitis B Virus. >/= 8 to <12 mIU/mL: No serological evidence of immunity to Hepatitis B Virus. >/= 12 mIU/mL: Consistent with serological evidence of immunity to Hepatitis B Virus. Performed By: #### 2 2322-2 #### [facility] CLIA [id number] [address] [place] [address] [place] HBV surface Ab Ser Qlon HBV surface Ab Ql (S) Negative Normal [facility] Comment on above: Order Comment: Speci men Type: BLOOD SPECIMEN Ordering Facility: [facility] Address: [address] [place] [address] Result Comment: No s erological evidence of immunity to Hepatitis B Virus. Performed By: #### 2 2322-2 #### [facility] CLIA [id number] [address] [place] [address] [place] HbA1c (Bld)on 07-26-2023 Average glucose Estimated from glycated hemoglobin (Bld) [Mass/Vol] 94 mg/dL Normal [facility] Comment on above: Order Comment: Mary head Type: BLOOD SPECIMEN Ordering Facility: [facility] Address: [address] [place] [address] Result Comment: eAG: (Estimated average glucose) is a calculated value from HgbA1c and is claim service representative of the average blood glucose level in the last 2-3 month period. Performed By: #### 5 5454-3 #### [facility] CLIA [id number] [address] [place] [address] [place] HbA1c (Bld) [Mass fraction] 4.9 % Normal 4.3-5.[address] [facility] Comment on above: Order Comment: Mary head Type: BLOOD SPECIMEN Ordering Facility: [facility] Address: [address] [place] [address] Result Comment: [place] Diabetes Association guidelines indicate that patients with HgbA1c in the range 5.7-6.4% are at increased risk for development of diabetes, and intervention by lifestyle modification may be beneficial. HgbA1c greater or equal to 6.5% is considered diagnostic of diabetes. Performed By: #### 5 5454-3 #### [facility] CLIA [id number] [address] [place] [address] [place] Lipid 1996 panelon Cholesterol [Mass/Vol] 172 mg/dL Normal <200 [facility] Comment on above: Order Comment: Mary head Type: BLOOD SPECIMEN Ordering Facility: [facility] Address: [address] [place] [address] Result Comment: <200 mg/dL, Desirable 200-239 mg/dL, Borderline high >239 mg/dL, High Performed By: #### 2 4331-1 #### [facility] CLIA [id number] [address] [place] [address] [place] [facility] CLIA [id number] [address] [place] [address]2439 Cholesterol in HDL [Mass/Vol] 58 mg/dL Normal >[address] [facility] Comment on above: Order Comment: Micki men Type: BLOOD SPECIMEN Ordering Facility: [facility] Address: [address] [place] [address] Result Comment: 40-5 9 mg/dL, Acceptable >59 mg/dL, High: Negative risk factor for coronary heart disease <40 mg/dL, Low: Positive risk factor for coronary heart disease Performed By: #### 2 4331-1 #### [facility] CLIA [id number] [facility] [address] [facility] CLIA [id number] [address] [place] [address] 53048 Cholesterol in LDL [Mass/Vol] 103 mg/dL High <[address] [facility] Comment on above: Order Comment: Mary head Type: BLOOD SPECIMEN Ordering Facility: [facility] Address: [address] [place] [address] Result Comment: <100 mg/dL, Optimal 100-129 mg/dL, Near optimal/above optimal 130-159 mg/dL, Borderline high 160-189 mg/dL, High >189 mg/dL, Very high Secondary prevention optimal LDL Cholesterol levels are recommended to be < 70 mg/dL Performed By: #### 2 4331-1 #### [facility] CLIA [id number] [address] [place] [address] LAB CLIA [id number] [address] [place] [address] 06948 Cholesterol in LDL/Cholesterol in HDL [Mass ratio] 1.78 {ratio} Normal <2.[address] [facility] Comment on above: Order Comment: Mary adilene Type: BLOOD SPECIMEN Ordering Facility: [facility] Address: [address] [place] [address] Result Comment: Elkin horta: 1. National Cholesterol Education Program ATP III Guideline At-A-Glance Quick Desk Reference: National Heart, Lung, and Blood [place]. National Institutes of Health. 2001: NIH Publication No. 01-3305. 2. An International Atherosclerosis Society position paper: global recommendations for the management of dyslipidemia: executive summary, Atherosclerosis. 2014: 232(2):410-413. Performed By: #### 2 4331-1 #### [facility] CLIA [id number] [address] [place] [address] LAB CLIA [id number] [address] [place] [address] 25907 Cholesterol in VLDL [Mass/Vol] 11 mg/dL Normal <[address] [facility] Comment on above: Order Comment: Speci men Type: BLOOD SPECIMEN Ordering Facility: [facility] Address: [address] [place] [address] Performed By: #### 2 4331-1 #### [facility] CLIA [id number] [address] [place] [address] LAB CLIA [id number] [address] [place] [address] 03890 Cholesterol non HDL [Mass/Vol] 114 mg/dL Normal <[address] [facility] Comment on above: Order Comment: Speci men Type: BLOOD SPECIMEN Ordering Facility: [facility] Address: [address] [place] [address] Result Comment: <130 mg/dL, Optimal 130-159 mg/dL, Near optimal/above optimal 160-189 mg/dL, Borderline high 190-219 mg/dL, High >219 mg/dL, Very high Secondary prevention optimal non HDL Cholesterol levels are recommended to be <100 mg/dL Performed By: #### 2 4331-1 #### [facility] CLIA [id number] [address] [place] [address] LAB CLIA [id number] [address] [place] [address] 32546 Cholesterol.total/Choles terol in HDL [Mass ratio] 2.97 {ratio} Normal <5.[address] [facility] Comment on above: Order Comment: Speci men Type: BLOOD SPECIMEN Ordering Facility: [facility] Address: [address] [place] [address] Performed By: #### 2 4331-1 #### [facility] CLIA [id number] [address] [facility] CLIA [id number] [address] [place] [address] 03253 FASTING TIME 12 hrs Normal [facility] Comment on above: Order Comment: Speci men Type: BLOOD SPECIMEN Ordering Facility: [facility] Address: [address] [place] [address] Performed By: #### 2 4331-1 #### [facility] CLIA [id number] [address] [facility] CLIA [id number] [address] [place], [place] [address] Triglyceride [Mass/Vol] 53 mg/dL Normal <150 [facility] Comment on above: Order Comment: Speci men Type: BLOOD SPECIMEN Ordering Facility: [facility] Address: [address] [place] [address] Result Comment: <150 mg/dL, Normal 150-199 mg/dL, Borderline high 200-499 mg/dL, High >499 mg/dL, Very high Performed By: #### 2 4331-1 #### [facility] CLIA [id number] [address] [facility] CLIA [id number] [address] [place], [place] [address] Jemima 07-21-2023 CNOV Office Visit (INHALEYVN) CARYL ZAMARRIPA ([id number]) 1990 F Date Time Provider Department 07/21/23 4:20 PM BERENICE ZEPEDA During your visit today, we recorded the following information about you: Pulse Blood pressure Weight Height 60/minute 112/74 80.1 kg 1.612 m Last Period 07/09/23 Berenice Zepeda APRN.INDUSTRIAL ACCOUNTANT 07/22/2023 10:16 AM Signed Caryl Zamarripa is a 32 year old female here today for review of established medical problems as well as comprehensive physical examination. Obesity S/p gastric sleeve surgery in 03/2022 at [facility] in [place] about 70lb, has reached plateau Gym 4 days per week with cardio (treadmill, elliptical) Maybe not enough water Tries to focus on more protein, lower carbs Last 10 Encounter Wt Readings: Date: Wt: 07/21/2023 80.1 kg (176 lb 8 oz) 07/06/2022 81.6 kg (180 lb) 01/15/2022 104.3 kg (230 lb) ASSOCIATE PRODUCT MANAGER in [facility] Implanted control HM needs: Hepatitis B Vaccine(1 of 3 - 3-dose series) Never done Depression Assessment Never done HPV Testing Never done PAST MEDICAL HISTORY Diagnosis Date GERD (gastroesophageal reflux disease) Prediabetes PAST SURGICAL HISTORY Procedure Laterality Date PT ED BARIATRIC AND METABOLIC gastric sleeve 03/2022 ALLERGIES Patient has no known allergies. MEDICATIONS Omeprazole Magnesium (ACID PIANO ASSEMBLER, OMEPRAZOLE,) 20 mg cpDR Phentermine HCl 37.5 [...] No history of dysuria, frequency or incontinence ASSOCIATE PRODUCT MANAGER: Negative for abnormal vaginal bleeding, abnormal vaginal discharge MUSCULOSKELETAL: Negative for joint pain or swelling, back pain or muscle pain SKIN: Negative for lesions, rash, and itching PSYCH: Negative for sleep disturbance, mood disorder and recent psychosocial stressors HEMATOLOGY/LYMPHOLOG Y: Negative for prolonged bleeding, bruising easily or [...] and symmetric. Sensation grossly intact. Breast/Pelvic: Per ASSOCIATE PRODUCT MANAGER ASSESSMENT/PLAN: 1. Routine adult health maintenance - ICD9: V70.0, ICD10: Z00.00 (primary diagnosis) - Counseled on healthy diet and regular exercise - Calcium intake with supplements or by diet of 1000 mg/day for under 50, 5923-3675 mg/day for 50+ - Discussed need and benefit for weight loss. BMI 30.81 kg/(m2) - HGB A1C - COMP METABOLIC PANEL - LIPID PANEL BASIC - CBC + DIFF 2. IFG (impaired fasting glucose) - ICD9: 790.21, ICD10: (more content not included)... Normal [facility] Basophils Auto (Bld) [#/Vol] Ordered By: Reena Breaux on 10-11-2022 Basophils (Bld) [#/Vol] 0.0 10*3/uL 0.0-0.2 [facility] Basophils/100 WBC Auto (Bld) Ordered By: Reena Breaux on 10-11-2022 Basophils/100 WBC (Bld) 0.7 % . F [facility] Body fluid albumin measureme nt (mass/volume)Ordered By: Reena Breaux on 10-11-2022 Albumin (Body fld) [Mass/Vol] 4.0 g/dL 3.2-5.[address] [facility] [address] biopsyOrdered By: Reena malhotra on 10-11-2022 Transferrin [Mass/Vol] 206 mg/dL 180-380 [facility] Complete Blood Count Auto Di ffon 10-11-2022 Basophils (Bld) [#/Vol] 0.0 10*3/uL Normal 0.0-0.2 [facility] Comment on above: Result Comment: PERF ORMED BY: [place] [address] PATHOLOGIST INSURANCE LEGAL ASSISTANT AMANDA CALLE M.D. Performed By: #### P HOS, [id number], CMP, CBC, [id number], FE PRO, MG #### [facility] [address] [place] [address] [place] #### VITB1 #### [facility] , Basophils/100 WBC (Bld) 0.7 % Normal . [facility] Comment on above: Performed By: #### P HOS, [id number], CMP, CBC, [id number], FE PRO, MG #### [facility] [address] [place] [address] [place] #### VITB1 #### [facility] , Eosinophils (Bld) [#/Vol] 0.1 10*3/uL Normal 0.0-0.45 [facility] Comment on above: Performed By: #### P HOS, [id number], CMP, CBC, [id number], FE PRO, MG #### [facility] [address] [place] [address] #### VITB1 #### [facility] , Eosinophils/100 WBC (Bld) 1.7 % Normal . [facility] Comment on above: Performed By: #### P HOS, [id number], CMP, CBC, [id number], FE PRO, MG #### [address] #### VITB1 #### [facility] , Erythrocyte distribution width (RBC) [Ratio] 12.9 % Normal 11.9-15.3 [facility] Comment on above: Performed By: #### P HOS, [id number], CMP, CBC, [id number], FE PRO, MG #### [address] #### VITB1 #### [facility] , Hematocrit (Bld) [Volume fraction] 39.1 % Normal 34.0-46.4 [facility] Comment on above: Performed By: #### P HOS, [id number], CMP, CBC, [id number], FE PRO, MG #### [address] #### VITB1 #### [facility] , Hemoglobin (Bld) [Mass/Vol] 13.1 g/dL Normal 11.8-15.4 [facility] Comment on above: Performed By: #### P HOS, [id number], CMP, CBC, [id number], FE PRO, MG #### [place] [address] [place] #### VITB1 #### [facility] , Lymphocytes (Bld) [#/Vol] 2.7 10*3/uL Normal 1.00-4.8 [facility] Comment on above: Performed By: #### P HOS, [id number], CMP, CBC, [id number], FE PRO, MG #### [facility] [address] [place] [address] #### VITB1 #### [facility] , Lymphocytes/100 WBC (Bld) 39.8 % Normal . [facility] Comment on above: Performed By: #### P HOS, [id number], CMP, CBC, [id number], FE PRO, MG #### [facility] [address] [place] [address] #### VITB1 #### [facility] , MCH (RBC) [Entitic mass] 31.9 pg Normal 24.7-34.3 [facility] Comment on above: Performed By: #### P HOS, [id number], CMP, CBC, [id number], FE PRO, MG #### [facility] [address] [place] [address] #### VITB1 #### [facility] , MCV (RBC) [Entitic vol] 95.3 fL Normal 80-100 [facility] Comment on above: Performed By: #### P HOS, [id number], CMP, CBC, [id number], FE PRO, MG #### [facility] [address] [place] [address] [place] #### VITB1 #### [facility] , Mean Corpuscular HGB Conc 33.5 g/dL Normal 32.0-35.0 [facility] Comment on above: Performed By: #### P HOS, [id number], CMP, CBC, [id number], FE PRO, MG #### [facility] [address] [place] [address] [place] #### VITB1 #### [facility] , Monocytes (Bld) [#/Vol] 0.3 10*3/uL Normal 0.0-0.8 [facility] Comment on above: Performed By: #### P HOS, [id number], CMP, CBC, [id number], FE PRO, MG #### [facility] [address] [place] [address] #### VITB1 #### [facility] , Monocytes/100 WBC (Bld) 5.1 % Normal . [facility] Comment on above: Performed By: #### P HOS, [id number], CMP, CBC, [id number], FE PRO, MG #### [facility] [address] [place] [address] #### VITB1 #### [facility] , Neutrophils (Bld) [#/Vol] 3.6 10*3/uL Normal 1.8-7.7 [facility] Comment on above: Performed By: #### P HOS, [id number], CMP, CBC, [id number], FE PRO, MG #### [facility] [address] [place] [address] [place] #### VITB1 #### [facility] , Neutrophils/100 WBC (Bld) 52.7 % Normal . [facility] Comment on above: Performed By: #### P HOS, [id number], CMP, CBC, [id number], FE PRO, MG #### [facility] [address] [place] [address] [place] #### VITB1 #### [facility] , NRBC% 0.0 /100{WBC} Normal 0-0.5 [facility] Comment on above: Performed By: #### P HOS, [id number], CMP, CBC, [id number], FE PRO, MG #### [facility] [address] [place] [address] [place] #### VITB1 #### [facility] , Platelet mean volume (Bld) [Entitic vol] 9.8 fL Normal 6.3-10.7 [facility] Comment on above: Performed By: #### P HOS, [id number], CMP, CBC, [id number], FE PRO, MG #### [facility] [address] [place] [address] #### VITB1 #### [facility] , Platelets (Bld) [#/Vol] 226 10*3/uL Normal 150-450 [facility] Comment on above: Performed By: #### P HOS, [id number], CMP, CBC, [id number], FE PRO, MG #### [facility] [address] [place] [address] #### VITB1 #### [facility] , RBC (Bld) [#/Vol] 4.11 10*6/uL Normal 3.60-5.00 [facility] Comment on above: Performed By: #### P HOS, [id number], CMP, CBC, [id number], FE PRO, MG #### [facility] [address] [place], [place] [address] [place] #### VITB1 #### [facility] , WBC (Bld) [#/Vol] 6.8 10*3/uL Normal 3.8-11.6 [facility] Comment on above: Performed By: #### P HOS, [id number], CMP, CBC, [id number], FE PRO, MG #### [facility] [address] [place] [address] [place] #### VITB1 #### [facility] , Comprehensive Metabolic Pane nicole 10-11-2022 Albumin [Mass/Vol] 4.0 g/dL Normal 3.2-5.5 [facility] Comment on above: Performed By: #### P HOS, [id number], CMP, CBC, [id number], FE PRO, MG #### [facility] [address] [place] [address] #### VITB1 #### [facility] , Albumin/Globulin [Mass ratio] 1.4 {ratio} Normal [facility] Comment on above: Performed By: #### P HOS, [id number], CMP, CBC, [id number], FE PRO, MG #### [facility] [address] [place] [address] [place] #### VITB1 #### [facility] , ALP [Catalytic activity/Vol] 36 U/L Normal 32-92 [facility] Comment on above: Performed By: #### P HOS, [id number], CMP, CBC, [id number], FE PRO, MG #### [facility] [address] [place] [address] #### VITB1 #### [facility] , ALT [Catalytic activity/Vol] 12 U/L Normal 10-60 [facility] Comment on above: Performed By: #### P HOS, [id number], CMP, CBC, [id number], FE PRO, MG #### [facility] [address] [place] [address] #### VITB1 #### [facility] , Anion gap [Moles/Vol] 11.6 mmol/L Normal 6.0-15.0 [facility] Comment on above: Performed By: #### P HOS, [id number], CMP, CBC, [id number], FE PRO, MG #### [facility] [address] [place] [address] [place] #### VITB1 #### [facility] , AST [Catalytic activity/Vol] 11 U/L Normal 10-42 [facility] Comment on above: Performed By: #### P HOS, [id number], CMP, CBC, [id number], FE PRO, MG #### [facility] [address] [place] [address] [place] #### VITB1 #### [facility] , Bilirubin [Mass/Vol] 0.3 mg/dL Normal 0.3-1.2 [facility] Comment on above: Performed By: #### P HOS, [id number], CMP, CBC, [id number], FE PRO, MG #### [facility] [address] [place] [address] #### VITB1 #### [facility] , Calcium [Mass/Vol] 9.3 mg/dL Normal 8.2-10.2 [facility] Comment on above: Performed By: #### P HOS, [id number], CMP, CBC, [id number], FE PRO, MG #### [facility] [address] [place] [address] #### VITB1 #### [facility] , Chloride [Moles/Vol] 103 mmol/L Normal 95-114 [facility] Comment on above: Performed By: #### P HOS, [id number], CMP, CBC, [id number], FE PRO, MG #### [facility] [address] [place] [address] #### VITB1 #### [facility] , CO2 [Moles/Vol] 26.4 mmol/L Normal 22.0-30.0 [facility] Comment on above: Performed By: #### P HOS, [id number], CMP, CBC, [id number], FE PRO, MG #### [facility] [address] [place] [address] [place] #### VITB1 #### [facility] , Creatinine [Mass/Vol] 0.70 mg/dL Normal 0.44-1.03 [facility] Comment on above: Performed By: #### P HOS, [id number], CMP, CBC, [id number], FE PRO, MG #### [facility] [address] [place] [address] [place] #### VITB1 #### [facility] , Estimated GFR ( Christiano > 60 Normal [facility] Comment on above: Result Comment: GFR estimated reference range: According to KDOQI guidelines, <60 ml/min/1.73m2 is sufficient to diagnose a patient with chronic kidney disease. Performed By: #### P HOS, [id number], CMP, CBC, [id number], FE PRO, MG #### [facility] [address] [place] [address] [place] #### VITB1 #### [facility] , Estimated GFR (Non- Am > 60 [facility] Comment on above: Performed By: #### P HOS, [id number], CMP, CBC, [id number], FE PRO, MG #### [facility] [address] [place] [address] #### VITB1 #### [facility] , Globulin (S) [Mass/Vol] 2.8 g/dL Normal [facility] Comment on above: Performed By: #### P HOS, [id number], CMP, CBC, [id number], FE PRO, MG #### [facility] [address] [place] [address] [place] #### VITB1 #### [facility] , Glucose [Mass/Vol] 85 mg/dL Normal 70-100 [facility] Comment on above: Result Comment: [facility] Glucose Reference Range is dependent on time and content of last meal. Glucose of more than 200 mg/dL in a nonstressed, ambulatory subject supports the diagnosis of Diabetes Mellitus. ADA recommended reference range Performed By: #### P HOS, [id number], CMP, CBC, [id number], FE PRO, MG #### [facility] [address] [place] [address] [place] #### VITB1 #### [facility] , Potassium [Moles/Vol] 4.0 mmol/L Normal 3.5-5.1 [facility] Comment on above: Performed By: #### P HOS, [id number], CMP, CBC, [id number], FE PRO, MG #### [facility] [address] [place] [address] [place] #### VITB1 #### [facility] , Protein [Mass/Vol] 6.8 g/dL Normal 6.1-7.9 [facility] Comment on above: Performed By: #### P HOS, [id number], CMP, CBC, [id number], FE PRO, MG #### [facility] [address] [place] [address] [place] #### VITB1 #### [facility] , Sodium [Moles/Vol] 137 mmol/L Normal 136-146 [facility] Comment on above: Performed By: #### P HOS, [id number], CMP, CBC, [id number], FE PRO, MG #### [facility] [address] [place] [address] [place] #### VITB1 #### [facility] , Urea nitrogen [Mass/Vol] 11 mg/dL Normal 9-23 [facility] Comment on above: Performed By: #### P HOS, [id number], CMP, CBC, [id number], FE PRO, MG #### [facility] [address] [place] [address] [place] #### VITB1 #### [facility] , Creatinine and Glomerular fi ltration rate.predicted panel (S/P/Bld)Ordered By: Reena Breaux on 10-11-2022 Creatinine [Mass/Vol] 0.70 mg/dL 0.44-1.03 [facility] Eosinophils Auto (Bld) [#/Vo l]Ordered By: Reena Breaux on 10-11-2022 Eosinophils (Bld) [#/Vol] 0.1 10*3/uL 0.0-0.45 [facility] Eosinophils/100 WBC Auto (Bl d)Ordered By: Reena Breaux on 10-11-2022 Eosinophils/100 WBC (Bld) 1.7 % . [facility] Erythrocyte distribution wid th Auto (RBC) [Ratio]Ordered By: Reena Breaux on 10-11-2022 Erythrocyte distribution width (RBC) [Ratio] 12.9 % 11.9-15.3 [facility] Estimated glomerular filtrat ion rate (GFR) non- AmericanOrdered By: Reena Breaux on 10-11-2022 GFR/1.73 sq M.predicted among non-blacks MDRD (S/P/Bld) [Vol rate/Area] > 60 mL/Min [facility] FE PROon 10-11-2022 % Iron Saturation 24.0 % Normal 20-50 [facility] Comment on above: Performed By: #### P HOS, [id number], CMP, CBC, [id number], FE PRO, MG #### [facility] [address] [place] [address] [place] #### VITB1 #### [facility] , Ferritin [Mass/Vol] 29.2 ng/mL Normal 11-306.8 [facility] Comment on above: Performed By: #### P HOS, [id number], CMP, CBC, [id number], FE PRO, MG #### [facility] [address] [place] [address] [place] #### VITB1 #### [facility] , Iron [Mass/Vol] 69 ug/dL Normal 40-150 [facility] Comment on above: Performed By: #### P HOS, [id number], CMP, CBC, [id number], FE PRO, MG #### [facility] [address] [place] [address] [place] #### VITB1 #### [facility] , Total Iron Binding Capacity 288 ug/dL Normal 255-450 [facility] Comment on above: Performed By: #### P HOS, [id number], CMP, CBC, [id number], FE PRO, MG #### [facility] [address] [place] [address] [place] #### VITB1 #### [facility] , Transferrin [Mass/Vol] 206 mg/dL Normal 180-380 [facility] Comment on above: Performed By: #### P HOS, [id number], CMP, CBC, [id number], FE PRO, MG #### [facility] [address] #### VITB1 #### [facility] , Ferritin [Mass/volume] in Se rum or PlasmaOrdered By: Reena Breaux on 10-11-2022 Ferritin [Mass/Vol] 29.2 ng/mL 11-306.8 [facility] Folate [Mass/volume] in Seru m or PlasmaOrdered By: Reena Breaux on 10-11-2022 Folate [Mass/Vol] 22.2 ng/mL >5.9 [facility] Comment on above: Folate reference ran ge: >5.9 ng/mlThe WHO technical consultation on folate and vitamin [id number] has determined that folate concentrations lessthan 4 ng/ml are considered deficient. Globulin Calc (S) [Mass/Vol] Ordered By: Reena Breaux on 10-11-2022 Globulin (S) [Mass/Vol] 2.8 g/dL [facility] Hematocrit Auto (Bld) [Volum e fraction]Ordered By: Reena Breaux on 10-11-2022 Hematocrit (Bld) [Volume fraction] 39.1 % 34.0-46.4 [facility] Hemoglobin [Mass/volume] in BloodOrdered By: Reena Breaux on 10-11-2022 Hemoglobin (Bld) [Mass/Vol] 13.1 g/dL 11.8-15.4 [facility] Iron [Mass/volume] in Serum or PlasmaOrdered By: Reena Breaux on 10-11-2022 Iron [Mass/Vol] 69 ug/dL 40-150 [facility] Iron binding capacity [Mass/ volume] in Serum or PlasmaOrdered By: Reena Breaux on 10-11-2022 Iron binding capacity [Mass/Vol] 288 ug/dL 255-450 [facility] Iron saturation [Mass Fracti on] in Serum or PlasmaOrdered By: Reena Breaux on 10-11-2022 Iron saturation [Mass fraction] 24.0 % 20-50 [facility] Laboratory - Chemistry and C hemistry - challengeOrdered By: Reena Breaux on 10-11-2022 Cobalamin (Vitamin B12) [Mass/Vol] 1437 pg/mL 180-914 [facility] Magnesium [Mass/Vol] 2.1 mg/dL 1.6-2.6 [facility] Leukocytes [#/volume] correc jakob for nucleated erythrocytes in Blood by Automated counOrdered By: Reena Breaux on 10-11-2022 WBC corrected for nucl RBC Auto (Bld) [#/Vol] 6.8 10*3/uL 3.8-11.6 [facility] Lymphocytes Auto (Bld) [#/Vo l]Ordered By: Reena Breaux on 10-11-2022 Lymphocytes (Bld) [#/Vol] 2.7 10*3/uL 1.00-4.8 [facility] Lymphocytes/100 WBC Auto (Bl d)Ordered By: Reena Breaux on 10-11-2022 Lymphocytes/100 WBC (Bld) 39.8 % . [facility] MCH Auto (RBC) [Entitic mass ]Ordered By: Reena Breaux on 10-11-2022 MCH (RBC) [Entitic mass] 31.9 pg 24.7-34.3 [facility] MCHC Auto (RBC) [Mass/Vol]Or dered By: Reena Breaux on 10-11-2022 MCHC (RBC) [Mass/Vol] 33.5 g/dL 32.0-35.0 [facility] MCV Auto (RBC) [Entitic vol] Ordered By: Reena Breaux on 10-11-2022 MCV (RBC) [Entitic vol] 95.3 fL 80-100 [facility] Magnesiumon 10-11-2022 Magnesium [Mass/Vol] 2.1 mg/dL Normal 1.6-2.6 [facility] Comment on above: Performed By: #### P HOS, [id number], CMP, CBC, [id number], FE PRO, MG #### [facility] [address] #### VITB1 #### [facility] , Monocytes Auto (Bld) [#/Vol] Ordered By: Reena Breaux on 10-11-2022 Monocytes (Bld) [#/Vol] 0.3 10*3/uL 0.0-0.8 [facility] Monocytes/100 WBC Auto (Bld) Ordered By: Reena Breaux on 10-11-2022 Monocytes/100 WBC (Bld) 5.1 % . [facility] Neutrophils Auto (Bld) [#/Vo l]Ordered By: Reena Breaux on 10-11-2022 Neutrophils (Bld) [#/Vol] 3.6 10*3/uL 1.8-7.7 [facility] Neutrophils/100 WBC Auto (Bl d)Ordered By: Reena Breaux on 10-11-2022 Neutrophils/100 WBC (Bld) 52.7 % . [facility] No Panel InformationOrdered By: Reena Breaux on 10-11-2022 25-Hydroxy Vitamin D Total 33.9 ng/mL 30-100 [facility] Comment on above: VITAMIN D STATUS 25( [place])VITAMIN D RANGE (ng/mL) Deficient <20 Insufficient 20 to <30Sufficient 30 to 100Reference: Kofi MF,Mauricio NC, Mayank CUELLAR, et al. Evaluation,treatment, and prevention of vitamin D deficiency; an Endocrine Society clinical practice guideline. JCEM. 2010; 96(7):1911-30. Estimated GFR () > 60 mL/Min [facility] Comment on above: GFR estimated refere nce range: According to KDOQI guidelines, <60 ml/min/1.73m2 is sufficient to diagnose a patient with chronic kidney disease. Pharmacy Creatinine Clearance (Chem N/A [facility] Nucleated erythrocytes [Pres ence] in Blood by Automated countOrdered By: Reena Breaux on 10-11-2022 Nucleated RBC Auto Ql (Bld) 0.0 /100{WBC} 0-0.5 [facility] Phosphate [Mass/volume] in S negro or PlasmaOrdered By: Reena Breaux on 10-11-2022 Phosphate [Mass/Vol] 3.9 mg/dL 2.5-4.6 [facility] Phosphoruson 10-11-2022 Phosphate [Mass/Vol] 3.9 mg/dL Normal 2.5-4.6 [facility] Comment on above: Performed By: #### P HOS, [id number], CMP, CBC, [id number], FE PRO, MG #### [facility] [address] #### VITB1 #### [facility] , Platelet mean volume Auto (B ld) [Entitic vol]Ordered By: Reena Breaux on 10-11-2022 Platelet mean volume (Bld) [Entitic vol] 9.8 fL 6.3-10.7 [facility] Platelets Auto (Bld) [#/Vol] Ordered By: Reena Breaux on 10-11-2022 Platelets (Bld) [#/Vol] 226 10*3/uL 150-450 [facility] Protein [Mass/volume] in Ser um or PlasmaOrdered By: Reena Breaux on 10-11-2022 Protein [Mass/Vol] 6.8 g/dL 6.1-7.9 [facility] RBC Auto (Bld) [#/Vol]Ordere d By: Reena Breaux on 10-11-2022 RBC (Bld) [#/Vol] 4.11 10*6/uL 3.60-5.00 [facility] Serum or plasma alanine doss otransferase measurement without P-5'-P (enzymatic activiOrdered By: Reena Breaux on 10-11-2022 ALT No additional P-5'-P [Catalytic activity/Vol] 12 U/L 10-60 [facility] Serum or plasma albumin/glob ulin mass ratioOrdered By: Reena Breaux on 10-11-2022 Albumin/Globulin [Mass ratio] 1.4 {ratio} [facility] Serum or plasma alkaline denis sphatase measurement (enzymatic activity/volume)Ordered By: Reena Breaux on 10-11-2022 ALP [Catalytic activity/Vol] 36 U/L 32-92 [facility] Serum or plasma anion gap de terminationOrdered By: Reena Breaux on 10-11-2022 Anion gap [Moles/Vol] 11.6 mmol/L 6.0-15.0 [facility] Serum or plasma aspartate am inotransferase measurement (enzymatic activity/volume)Ordered By: Reena Breaux on 10-11-2022 AST [Catalytic activity/Vol] 11 U/L 10-42 [facility] Serum or plasma calcium gloria urement (mass/volume)Ordered By: Reena Breaux on 10-11-2022 Calcium [Mass/Vol] 9.3 mg/dL 8.2-10.2 [facility] Serum or plasma chloride gina surement (moles/volume)Ordered By: Reena Breaux on 10-11-2022 Chloride [Moles/Vol] 103 mmol/L 95-114 [facility] Serum or plasma glucose gloria urement (mass/volume)Ordered By: Reena Breaux on 10-11-2022 Glucose [Mass/Vol] 85 mg/dL 70-100 [facility] Comment on above: ADA recommended refe rence rangeRandom Glucose Reference Range is dependent on time and content of last meal. Glucose of more than 200 mg/dL in a nonstressed, ambulatory subject supports the diagnosis of Diabetes Mellitus. Serum or plasma potassium me asurement (moles/volume)Ordered By: Reena Breaux on 10-11-2022 Potassium [Moles/Vol] 4.0 mmol/L 3.5-5.1 [facility] Serum or plasma sodium measu rement (moles/volume)Ordered By: Reena Breaux on 10-11-2022 Sodium [Moles/Vol] 137 mmol/L 136-146 [facility] Serum or plasma total biliru bin measurement (mass/volume)Ordered By: Reena Breaux on 10-11-2022 Bilirubin [Mass/Vol] 0.3 mg/dL 0.3-1.2 [facility] Serum or plasma total carbon dioxide measurement (moles/volume)Ordered By: Reena Breaux on 10-11-2022 CO2 [Moles/Vol] 26.4 mmol/L 22.0-30.0 [facility] Serum or plasma urea nitroge n measurement (mass/volume)Ordered By: Reena Breaux on 10-11-2022 Urea nitrogen [Mass/Vol] 11 mg/dL 9- [facility] Vit. B12/Folate Profileon Cobalamin (Vitamin B12) [Mass/Vol] 1437 pg/mL High 180-914 [facility] Comment on above: Performed By: #### P HOS, [id number], CMP, CBC, [id number], FE PRO, MG #### [facility] [address] [place] [address] #### VITB1 #### [facility] , Folate 22.2 ng/mL Normal >5.9 [facility] Comment on above: Result Comment: Tara te reference range: >5.9 ng/ml The WHO technical consultation on folate and vitamin b12 deficiencies has determined that folate concentrations less than 4 ng/ml are considered deficient. Performed By: #### P HOS, [id number], CMP, CBC, [id number], FE PRO, MG #### [facility] [address] [place] [address] [place] #### VITB1 #### [facility] , Vitamin B1 (Thiamine) Bloodo n 10-11-2022 Vitamin B1 (Thiamine) Blood 153.8 Normal 66.5-200.0 [facility] Comment on above: Result Comment: This test was developed and its performance characteristics determined by [facility]. It has not been cleared or approved by the Food and Drug Administration. Performed at: [address] [id number] Internal Communications Writer: Chary Soler MD, Phone: [phone] PERFORMED BY: [place] [address] PATHOLOGIST INSURANCE LEGAL ASSISTANT AMANDA CALLE M.D. Performed By: #### P HOS, [id number], CMP, CBC, [id number], FE PRO, MG #### [facility] [address] [place] [address] [place] #### VITB1 #### [facility] , Vitamin D 25 Hydroxy Totalon 10-11-2022 Vitamin D 25 Hydroxy Total 33.9 ng/mL Normal 30-100 [facility] Comment on above: Result Comment: JONAH MIN D STATUS 25(OH)VITAMIN D RANGE (ng/mL) Deficient <20 Insufficient 20 to <30 Sufficient 30 to 100 Reference: Kofi MF,Mauricio NC, Mayank CUELLAR, et al. Evaluation,treatment, and prevention of vitamin D deficiency; an Endocrine Society clinical practice guideline. JCEM. 2010; 96(7):1911-30. PERFORMED BY: [place] [address] PATHOLOGIST INSURANCE LEGAL ASSISTANT AMANDA CALLE M.D. Performed By: #### P HOS, [id number], CMP, CBC, [id number], FE PRO, MG #### [facility] [address] [place] [address] #### VITB1 #### [facility] , WBC Auto (Bld) [#/Vol]Ordere d By: Reena Breaux on 10-11-2022 WBC (Bld) [#/Vol] 6.8 10*3/uL 3.8-11.6 [facility] Complete Blood Count Auto Di ffon 06-10-2022 Basophils (Bld) [#/Vol] 0.0 10*3/uL Normal 0.0-0.2 [facility] Comment on above: Order Comment: NOT F ASTING. JKW Result Comment: PERF ORMED BY: [place] [address] PATHOLOGIST INSURANCE LEGAL ASSISTANT AMANDA CALLE M.D. Performed By: #### V ITB1 #### [facility] , #### [id number], CMP, MG, FE PRO, PHOS, [id number], CBC #### [facility] [address] [place] [address] Basophils/100 WBC (Bld) 0.7 % Normal . [facility] Comment on above: Order Comment: NOT F ASTING. JKW Performed By: #### V ITB1 #### [facility] , #### [id number], CMP, MG, FE PRO, PHOS, [id number], CBC #### [facility] [address] [place] [address] Eosinophils (Bld) [#/Vol] 0.2 10*3/uL Normal 0.0-0.45 [facility] Comment on above: Order Comment: NOT F ASTING. JKW Performed By: #### V ITB1 #### [facility] , #### [id number], CMP, MG, FE PRO, PHOS, [id number], CBC #### [address] Eosinophils/100 WBC (Bld) 2.6 % Normal . [facility] Comment on above: Order Comment: NOT F ASTING. JKW Performed By: #### V ITB1 #### [facility] , #### [id number], CMP, MG, FE PRO, PHOS, [id number], CBC #### [facility] [address] [place] [address] Erythrocyte distribution width (RBC) [Ratio] 13.9 % Normal 11.9-15.3 [facility] Comment on above: Order Comment: NOT F ASTING. JKW Performed By: #### V ITB1 #### [facility] , #### [id number], CMP, MG, FE PRO, PHOS, [id number], CBC #### [address] Hematocrit (Bld) [Volume fraction] 39.1 % Normal 34.0-46.4 [facility] Comment on above: Order Comment: NOT F ASTING. JKW Performed By: #### V ITB1 #### [facility] , #### [id number], CMP, MG, FE PRO, PHOS, [id number], CBC #### [address] Hemoglobin (Bld) [Mass/Vol] 12.8 g/dL Normal 11.8-15.4 [facility] Comment on above: Order Comment: NOT F ASTING. JKW Performed By: #### V ITB1 #### [facility] , #### [id number], CMP, MG, FE PRO, PHOS, [id number], CBC #### [address] Lymphocytes (Bld) [#/Vol] 1.5 10*3/uL Normal 1.00-4.8 [facility] Comment on above: Order Comment: NOT F ASTING. JKW Performed By: #### V ITB1 #### [facility] , #### [id number], CMP, MG, FE PRO, PHOS, [id number], CBC #### [address] Lymphocytes/100 WBC (Bld) 24.6 % Normal . [facility] Comment on above: Order Comment: NOT F ASTING. JKW Performed By: #### V ITB1 #### [facility] , #### [id number], CMP, MG, FE PRO, PHOS, [id number], CBC #### [address] MCH (RBC) [Entitic mass] 31.8 pg Normal 24.7-34.3 [facility] Comment on above: Order Comment: NOT F ASTING. JKW Performed By: #### V ITB1 #### [facility] , #### [id number], CMP, MG, FE PRO, PHOS, [id number], CBC #### [address] MCV (RBC) [Entitic vol] 97.2 fL Normal 80-100 [facility] Comment on above: Order Comment: NOT F ASTING. JKW Performed By: #### V ITB1 #### [facility] , #### [id number], CMP, MG, FE PRO, PHOS, [id number], CBC #### [address] Mean Corpuscular HGB Conc 32.7 g/dL Normal 32.0-35.0 [facility] Comment on above: Order Comment: NOT F ASTING. JKW Performed By: #### V ITB1 #### [facility] , #### [id number], CMP, MG, FE PRO, PHOS, [id number], CBC #### [address] Monocytes (Bld) [#/Vol] 0.4 10*3/uL Normal 0.0-0.8 [facility] Comment on above: Order Comment: NOT F ASTING. JKW Performed By: #### V ITB1 #### [facility] , #### [id number], CMP, MG, FE PRO, PHOS, [id number], CBC #### [address] Monocytes/100 WBC (Bld) 7.3 % Normal . [facility] Comment on above: Order Comment: NOT F ASTING. JKW Performed By: #### V ITB1 #### [facility] , #### [id number], CMP, MG, FE PRO, PHOS, [id number], CBC #### [facility] [address] [place] [address] Neutrophils (Bld) [#/Vol] 3.8 10*3/uL Normal 1.8-7.7 [facility] Comment on above: Order Comment: NOT F ASTING. JKW Performed By: #### V ITB1 #### [facility] , #### [id number], CMP, MG, FE PRO, PHOS, [id number], CBC #### [address] Neutrophils/100 WBC (Bld) 64.8 % Normal . [facility] Comment on above: Order Comment: NOT F ASTING. JKW Performed By: #### V ITB1 #### [facility] , #### [id number], CMP, MG, FE PRO, PHOS, [id number], CBC #### [address] Nucleated RBC/100 WBC (Bld) [Ratio] 0.1 % Normal 0-0.5 [facility] Comment on above: Order Comment: NOT F ASTING. JKW Performed By: #### V ITB1 #### [facility] , #### [id number], CMP, MG, FE PRO, PHOS, [id number], CBC #### [address] Platelet mean volume (Bld) [Entitic vol] 10.6 fL Normal 6.3-10.7 [facility] Comment on above: Order Comment: NOT F ASTING. JKW Performed By: #### V ITB1 #### [facility] , #### [id number], CMP, MG, FE PRO, PHOS, [id number], CBC #### [place] [address] [place] Platelets (Bld) [#/Vol] 237 10*3/uL Normal 150-450 [facility] Comment on above: Order Comment: NOT F ASTING. JKW Performed By: #### V ITB1 #### [facility] , #### [id number], CMP, MG, FE PRO, PHOS, [id number], CBC #### [address] RBC (Bld) [#/Vol] 4.02 10*6/uL Normal 3.60-5.00 [facility] Comment on above: Order Comment: NOT F ASTING. JKW Performed By: #### V ITB1 #### [facility] , #### [id number], CMP, MG, FE PRO, PHOS, [id number], CBC #### [facility] [address] WBC (Bld) [#/Vol] 5.9 10*3/uL Normal 4.5-11.0 [facility] Comment on above: Order Comment: NOT F ASTING. JKW Performed By: #### V ITB1 #### [facility] , #### [id number], CMP, MG, FE PRO, PHOS, [id number], CBC #### [facility] [address] Comprehensive Metabolic Pane nicole 06-10-2022 Albumin [Mass/Vol] 3.9 g/dL Normal 3.2-5.5 [facility] Comment on above: Order Comment: NOT F ASTING. JKW Performed By: #### V ITB1 #### [facility] , #### [id number], CMP, MG, FE PRO, PHOS, [id number], CBC #### [facility] [address] [place] [id number] [facility] Albumin/Globulin [Mass ratio] 1.4 {ratio} Normal [facility] Comment on above: Order Comment: NOT F ASTING. JKW Performed By: #### V ITB1 #### [facility] , #### [id number], CMP, MG, FE PRO, PHOS, [id number], CBC #### [facility] [address] ALP [Catalytic activity/Vol] 43 U/L Normal 32-92 [facility] Comment on above: Order Comment: NOT F ASTING. JKW Performed By: #### V ITB1 #### [facility] , #### [id number], CMP, MG, FE PRO, PHOS, [id number], CBC #### [facility] [address] ALT [Catalytic activity/Vol] 12 U/L Normal 10-60 [facility] Comment on above: Order Comment: NOT F ASTING. JKW Performed By: #### V ITB1 #### [facility] , #### [id number], CMP, MG, FE PRO, PHOS, [id number], CBC #### [address] Anion gap [Moles/Vol] 11.0 mmol/L Normal 6.0-15.0 [facility] Comment on above: Order Comment: NOT F ASTING. JKW Performed By: #### V ITB1 #### [facility] , #### [id number], CMP, MG, FE PRO, PHOS, [id number], CBC #### [address] AST [Catalytic activity/Vol] 10 U/L Normal 10-42 [facility] Comment on above: Order Comment: NOT F ASTING. JKW Performed By: #### V ITB1 #### [facility] , #### [id number], CMP, MG, FE PRO, PHOS, [id number], CBC #### [address] Bilirubin [Mass/Vol] 0.7 mg/dL Normal 0.3-1.2 [facility] Comment on above: Order Comment: NOT F ASTING. JKW Performed By: #### V ITB1 #### [facility] , #### [id number], CMP, MG, FE PRO, PHOS, [id number], CBC #### [address] Calcium [Mass/Vol] 9.8 mg/dL Normal 8.2-10.2 [facility] Comment on above: Order Comment: NOT F ASTING. JKW Performed By: #### V ITB1 #### [facility] , #### [id number], CMP, MG, FE PRO, PHOS, [id number], CBC #### [facility] [address] Chloride [Moles/Vol] 104 mmol/L Normal 95-114 [facility] Comment on above: Order Comment: NOT F ASTING. JKW Performed By: #### V ITB1 #### [facility] , #### [id number], CMP, MG, FE PRO, PHOS, [id number], CBC #### [address] CO2 [Moles/Vol] 25.3 mmol/L Normal 22.0-30.0 [facility] Comment on above: Order Comment: NOT F ASTING. JKW Performed By: #### V ITB1 #### [facility] , #### [id number], CMP, MG, FE PRO, PHOS, [id number], CBC #### [address] Creatinine [Mass/Vol] 0.56 mg/dL Normal 0.44-1.03 [facility] Comment on above: Order Comment: NOT F ASTING. JKW Performed By: #### V ITB1 #### [facility] , #### [id number], CMP, MG, FE PRO, PHOS, [id number], CBC #### [facility] [address] [place] [address] Estimated GFR ( Christiano > 60 Normal [facility] Comment on above: Order Comment: NOT F ASTING. JKW Result Comment: GFR estimated reference range: According to KDOQI guidelines, <60 ml/min/1.73m2 is sufficient to diagnose a patient with chronic kidney disease. Performed By: #### V ITB1 #### [facility] , #### [id number], CMP, MG, FE PRO, PHOS, [id number], CBC #### [facility] [address] Estimated GFR (Non- Am > 60 Normal [facility] Comment on above: Order Comment: NOT F ASTING. JKW Performed By: #### V ITB1 #### [facility] , #### [id number], CMP, MG, FE PRO, PHOS, [id number], CBC #### [facility] [address] Globulin (S) [Mass/Vol] 2.8 g/dL Normal [facility] Comment on above: Order Comment: NOT F ASTING. JKW Performed By: #### V ITB1 #### [facility] , #### [id number], CMP, MG, FE PRO, PHOS, [id number], CBC #### [address] Glucose [Mass/Vol] 95 mg/dL Normal 70-100 [facility] Comment on above: Order Comment: NOT F ASTING. JKW Result Comment: [place] Glucose Reference Range is dependent on time and content of last meal. Glucose of more than 200 mg/dL in a nonstressed, ambulatory subject supports the diagnosis of Diabetes Mellitus. ADA recommended reference range Performed By: #### V ITB1 #### [facility] , #### [id number], CMP, MG, FE PRO, PHOS, [id number], CBC #### [facility] [address] Potassium [Moles/Vol] 4.3 mmol/L Normal 3.5-5.1 [facility] Comment on above: Order Comment: NOT F ASTING. JKW Performed By: #### V ITB1 #### [facility] , #### [id number], CMP, MG, FE PRO, PHOS, [id number], CBC #### [address] Protein [Mass/Vol] 6.7 g/dL Normal 6.1-7.9 [facility] Comment on above: Order Comment: NOT F ASTING. JKW Performed By: #### V ITB1 #### [facility] , #### [id number], CMP, MG, FE PRO, PHOS, [id number], CBC #### [address] Sodium [Moles/Vol] 136 mmol/L Normal 136-146 [facility] Comment on above: Order Comment: NOT F ASTING. JKW Performed By: #### V ITB1 #### [facility] , #### [id number], CMP, MG, FE PRO, PHOS, [id number], CBC #### [address] Urea nitrogen [Mass/Vol] 7 mg/dL Low 9-23 [facility] Comment on above: Order Comment: NOT F ASTING. JKW Performed By: #### V ITB1 #### [facility] , #### [id number], CMP, MG, FE PRO, PHOS, [id number], CBC #### [address] FE PROon 1020-2021 % Iron Saturation 19.0 % Low 20-50 [facility] Comment on above: Order Comment: NOT F ASTING. JKW Performed By: #### P HOS, [id number], CMP, CBC, [id number], FE PRO, MG #### [place] [address] [place] #### VITB1 #### [facility] , Ferritin [Mass/Vol] 46.7 ng/mL Normal 11-306.8 [facility] Comment on above: Order Comment: NOT F ASTING. JKW Performed By: #### P HOS, [id number], CMP, CBC, [id number], FE PRO, MG #### [facility] [address] [place] [address] [place] #### VITB1 #### [facility] , Iron [Mass/Vol] 50 ug/dL Normal 40-150 [facility] Comment on above: Order Comment: NOT F ASTING. JKW Performed By: #### P HOS, [id number], CMP, CBC, [id number], FE PRO, MG #### [facility] [address] [place] [address] #### VITB1 #### [facility] , Total Iron Binding Capacity 260 ug/dL Normal 255-450 [facility] Comment on above: Order Comment: NOT F ASTING. JKW Performed By: #### P HOS, [id number], CMP, CBC, [id number], FE PRO, MG #### [facility] [address] [place] [address] #### VITB1 #### [facility] , Transferrin [Mass/Vol] 186 mg/dL Normal 180-380 [facility] Comment on above: Order Comment: NOT F ASTING. JKW Performed By: #### P HOS, [id number], CMP, CBC, [id number], FE PRO, MG #### [facility] [address] [place] [address] [place] #### VITB1 #### [facility] , Magnesiumon 06-10-2022 Magnesium [Mass/Vol] 2.0 mg/dL Normal 1.6-2.6 [facility] Comment on above: Order Comment: NOT F ASTING. JKW Performed By: #### P HOS, [id number], CMP, CBC, [id number], FE PRO, MG #### [facility] [address] [place] [address] [place] #### VITB1 #### [facility] , Phosphoruson 06-10-2022 Phosphate [Mass/Vol] 4.1 mg/dL Normal 2.5-4.6 [facility] Comment on above: Order Comment: NOT F ASTING. JKW Performed By: #### P HOS, [id number], CMP, CBC, [id number], FE PRO, MG #### [facility] [address] [place] [address] [place] #### VITB1 #### [facility] , Vit. B12/Folate Profileon Cobalamin (Vitamin B12) [Mass/Vol] 575 pg/mL Normal 180-914 [facility] Comment on above: Order Comment: NOT F ASTING. JKW Performed By: #### P HOS, [id number], CMP, CBC, [id number], FE PRO, MG #### [facility] [address] [place] [address] #### VITB1 #### [facility] , Folate 14.3 ng/mL Normal >5.9 [facility] Comment on above: Order Comment: NOT F ASTING. JKW Result Comment: Tara te reference range: >5.9 ng/ml The WHO technical consultation on folate and vitamin b12 deficiencies has determined that folate concentrations less than 4 ng/ml are considered deficient. Performed By: #### P HOS, [id number], CMP, CBC, [id number], FE PRO, MG #### [facility] [address] [place] [address] [place] #### VITB1 #### [facility] , Vitamin B1 (Thiamine) Bloodo n 06-10-2022 Vitamin B1 (Thiamine) Blood 143.0 Normal 66.5-200.0 [facility] Comment on above: Order Comment: NOT F ASTING. JKW Result Comment: This test was developed and its performance characteristics determined by [facility]. It has not been cleared or approved by the Food and Drug Administration. Performed at: [address] [id number] Internal Communications Writer: Chary Soler MD, Phone: [phone] PERFORMED BY: [place] [address] PATHOLOGIST INSURANCE LEGAL ASSISTANT AMANDA CALLE M.D. Performed By: #### P HOS, [id number], CMP, CBC, [id number], FE PRO, MG #### [address] #### VITB1 #### [facility] , Vitamin D 25 Hydroxy Totalon 06-10-2022 Vitamin D 25 Hydroxy Total 27.8 ng/mL Low 30-100 [facility] Comment on above: Order Comment: NOT F ASTING. JKW Result Comment: JONAH MIN D STATUS 25(OH)VITAMIN D RANGE (ng/mL) Deficient <20 Insufficient 20 to <30 Sufficient 30 to 100 Reference: Kofi MF,Mauricio NC, Mayank CUELLAR, et al. Evaluation,treatment, and prevention of vitamin D deficiency; an Endocrine Society clinical practice guideline. JCEM. 2010; 96(7):1911-30. PERFORMED BY: [place] [address] PATHOLOGIST INSURANCE LEGAL ASSISTANT AMANDA CALLE M.D. Performed By: #### P HOS, [id number], CMP, CBC, [id number], FE PRO, MG #### [address] #### VITB1 #### [facility] , HGB A1Con 01-15-2022 Average glucose Estimated from glycated hemoglobin (Bld) [Mass/Vol] 128 mg/dL [facility] Comment on above: Order Comment: Speci men Type: BLOOD SPECIMEN Ordering Facility: [facility] Address: [address] [place] [address] Result Comment: eAG: (Estimated average glucose) is a calculated value from HgbA1c and is claim service representative of the average blood glucose level in the last 2-3 month period. Performed By: #### H BA1C #### [facility] CLIA [id number] [address] [place] [address] [place] HbA1c (Bld) [Mass fraction] 6.1 % High 4.3-5.6 [facility] Comment on above: Order Comment: Mary men Type: BLOOD SPECIMEN Ordering Facility: [facility] Address: [address] [place] [address] Result Comment: Amer ican Diabetes Association guidelines indicate that patients with HgbA1c in the range 5.7-6.4% are at increased risk for development of diabetes, and intervention by lifestyle modification may be beneficial. HgbA1c greater or equal to 6.5% is considered diagnostic of diabetes. Performed By: #### H BA1C #### [facility] CLIA [id number] [address] [place] [address] [place] POTASSIUM BLDon 01-15-2022 Potassium [Moles/Vol] 4.9 mmol/L Normal 3.7-5.1 [facility] Comment on above: Order Comment: Speci men Type: BLOOD SPECIMEN Ordering Facility: [facility] Address: [address] [place] [address] Performed By: #### K 1 #### [facility] CLIA [id number] [facility] [place] [address] [place] Potassium [Moles/Vol] 4.9 mmol/L 3.7 - 5.1 mmol/L [facility] Vital Signs Date Time Vital Sign Value Performing Clinician Samreeni chiquis 01-10-2025 10:33-0400 Body mass index (BMI) [Ratio] 34.92 kg/m2 Apalya DO Work Phone: [facility] 01-10-2025 10:33-0400 Body weight 89.41 kg [employer] Work Phone: [facility] 01-10-2025 10:33-0400 Diastolic blood pressure 68 mm[Hg] [employer] Work Phone: [facility] 01-10-2025 10:33-0400 Systolic blood pressure 110 mm[Hg] Roscoe Joe DO Work Phone: [facility] 12-10-2024 11:23-0400 Body mass index (BMI) [Ratio] 33.66 kg/m2 Rosy Quiroz PA Work Phone: [facility] 12-10-2024 11:23-0400 Body weight 86.18 kg Rosy Quiroz PA Work Phone: [facility] 12-10-2024 11:23-0400 Diastolic blood pressure 70 mm[Hg] Rosy Haddadey PA Work Phone: [facility] 12-10-2024 11:23-0400 Systolic blood pressure 106 mm[Hg] Rosy Haddadey PA Work Phone: [facility] 11-08-2024 11:04-0400 Body mass index (BMI) [Ratio] 32.24 kg/m2 Roscoe Joe DO Work Phone: [facility] 11-08-2024 11:04-0400 Body weight 82.56 kg Roscoe Joe DO Work Phone: [facility] 11-08-2024 11:04-0400 Diastolic blood pressure 60 mm[Hg] Roscoe Joe DO Work Phone: [facility] 11-08-2024 11:04-0400 Systolic blood pressure 100 mm[Hg] Roscoe Joe DO Work Phone: [facility] 10-18-2024 13:54-0500 Body mass index (BMI) [Ratio] 31.38 kg/m2 [facility] 10-18-2024 13:54-0500 Body weight 80.34 kg [facility] Nurse [facility] 08-02-2024 15:58-0500 Body temperature 96.8 [degF] Edu Alvarez AMMONIA NITRATE OPERATOR Work Phone: [facility] 08-02-2024 15:58-0500 Diastolic blood pressure 66 mm[Hg] Edu Alvarez AMMONIA NITRATE OPERATOR Work Phone: [facility] 08-02-2024 15:58-0500 Heart rate 88 /min Edu Alvarez AMMONIA NITRATE OPERATOR Work Phone: [facility] 08-02-2024 15:58-0500 SaO2% (BldA) [Mass fraction] 98 % Edu Alvarez AMMONIA NITRATE OPERATOR Work Phone: [facility] 08-02-2024 15:58-0500 Systolic blood pressure 106 mm[Hg] Edu Alvarez AMMONIA NITRATE OPERATOR Work Phone: [facility] 07-25-2024 14:19-0500 Body height 160 cm Sina Pascual DO Work Phone: [facility] 07-25-2024 14:19-0500 Body mass index (BMI) [Ratio] 30.82 kg/m2 Sina Pascual DO Work Phone: [facility] 07-25-2024 14:19-0500 Body weight 78.93 kg Sina Pascual DO Work Phone: [facility] 07-25-2024 14:19-0500 Diastolic blood pressure 68 mm[Hg] Sina Pascual DO Work Phone: [facility] 07-25-2024 14:19-0500 Heart rate 68 /min Sina Pascual DO Work Phone: [facility] 07-25-2024 14:19-0500 Respiratory rate 12 /min Sina Pascual DO Work Phone: [facility] 07-25-2024 14:19-0500 SaO2% (BldA) [Mass fraction] 99 % Sina Pascual DO Work Phone: [facility] 07-25-2024 14:19-0500 Systolic blood pressure 128 mm[Hg] Sina Pascual DO Work Phone: [facility] 06-29-2024 12:36-0500 Body mass index (BMI) [Ratio] 29.58 kg/m2 Berenice Zepeda PROGRAM DIRECTOR AIR TALENT.INDUSTRIAL ACCOUNTANT Work Phone: [facility] 06-29-2024 12:36-0500 Body weight 75.75 kg Berenice Zepeda PROGRAM DIRECTOR AIR TALENT.INDUSTRIAL ACCOUNTANT Work Phone: [facility] 06-29-2024 12:36-0500 Diastolic blood pressure 68 mm[Hg] Berenice Evelyn PROGRAM DIRECTOR AIR TALENT.INDUSTRIAL ACCOUNTANT Work Phone: [facility] 06-29-2024 12:36-0500 Heart rate 65 /min Berenice Evelyn PROGRAM DIRECTOR AIR TALENT.INDUSTRIAL ACCOUNTANT Work Phone: [facility] 06-29-2024 12:36-0500 Systolic blood pressure 101 mm[Hg] Berenice Evelyn PROGRAM DIRECTOR AIR TALENT.INDUSTRIAL ACCOUNTANT Work Phone: [facility] 09-23-2023 14:27-0500 Body height 160 cm Berenice Evelyn PROGRAM DIRECTOR AIR TALENT.INDUSTRIAL ACCOUNTANT Work Phone: [facility] 09-23-2023 14:27-0500 Body weight 76.2 kg Berenice Evelyn PROGRAM DIRECTOR AIR TALENT.INDUSTRIAL ACCOUNTANT Work Phone: [facility] 07-21-2023 16:05-0500 Body height 161.2 cm Berenice Evelyn PROGRAM DIRECTOR AIR TALENT.INDUSTRIAL ACCOUNTANT Work Phone: [facility] 07-21-2023 16:05-0500 Body weight 80.06 kg Berenice Evelyn PROGRAM DIRECTOR AIR TALENT.INDUSTRIAL ACCOUNTANT Work Phone: [facility] 07-21-2023 16:05-0500 Diastolic blood pressure 74 mm[Hg] Berenice Evelyn PROGRAM DIRECTOR AIR TALENT.INDUSTRIAL ACCOUNTANT Work Phone: [facility] 07-21-2023 16:05-0500 Heart rate 60 /min Berenice Evelyn PROGRAM DIRECTOR AIR TALENT.INDUSTRIAL ACCOUNTANT Work Phone: [facility] 07-21-2023 16:05-0500 Systolic blood pressure 112 mm[Hg] Berenice Evelyn PROGRAM DIRECTOR AIR TALENT.INDUSTRIAL ACCOUNTANT Work Phone: [facility] 01-15-2022 11:50-0400 Body height 162.6 cm Dasha Lujan MD Work Phone: [facility] 01-15-2022 11:50-0400 Body temperature 98.01 [degF] Dasha Lujan MD Work Phone: [facility] 01-15-2022 11:50-0400 Body weight 104.33 kg Dasha Lujan MD Work Phone: [facility] 01-15-2022 11:50-0400 Diastolic blood pressure 86 mm[Hg] Dasha Lujan MD Work Phone: [facility] 01-15-2022 11:50-0400 Heart rate 65 /min Dasha Lujan MD Work Phone: [facility] 01-15-2022 11:50-0400 Respiratory rate 16 /min Dasha Lujan MD Work Phone: [facility] 01-15-2022 11:50-0400 Systolic blood pressure 124 mm[Hg] Dasha Lujan MD Work Phone: [facility] Encounters Encounter Date Encounter Type Care Provider Facility Start: 01-10-2025 End: 01-10-2025 flow sheet Roscoe Joe DO Work Phone: [facility] Comment on above: 21 weeks gestation o f ; Second trimester ; Diabetes mellitus screening Start: 01-10-2025 End: 01-10-2025 ambulatory ROSCOE JOE Not Available Start: 01-02-2025 End: 01-02-2025 Clinisync Result Encounter Roscoe Joe DO Work Phone: [facility] Unsolicited Start: 01-02-2025 End: 01-02-2025 Clinisync Result Encounter Roscoe Joe DO Work Phone: [facility] Unsolicited Start: 12-10-2024 End: 12-10-2024 Bamboo flowsheet Rosy [...] Start: 10-19-2024 End: 10-19-2024 Clinisync Result Encounter Orscoe Joe DO Work Phone: [facility] Unsolicited Start: 10-18-2024 End: 10-18-2024 Office outpatient visit 5 minutes [facility] Joe Nurse [facility] Comment on above: GA: 9w4d Start: 10-18-2024 End: 10-18-2024 ambulatory SINA GARNER Not Available Start: 08-02-2024 End: 08-02-2024 ambulatory EDU ALVAREZ Not Available Start: 08-02-2024 End: 08-02-2024 Office outpatient visit 25 minutes Edu Alvarez AMMONIA NITRATE OPERATOR Work Phone: [facility] Comment on above: Acute cough (Primary Dx); Chest congestion; Bronchitis Start: 07-25-2024 End: 07-25-2024 ambulatory SINA GARNER Not Available Start: 07-25-2024 End: 07-25-2024 Office outpatient new 45 minutes Sina Garner DO Work Phone: [facility] Comment on above: Rectal bleeding (Cony mike Dx) Start: 07-25-2024 End: 07-25-2024 Bamboo flowsheet Sina Pascual DO Work Phone: [facility] Start: 07-25-2024 End: 07-25-2024 Bamboo flowsheet Sinavincent Garner DO Work Phone: [facility] Start: 06-29-2024 End: 06-29-2024 ambulatory DASHA LUJAN Facility:[facility] Start: 06-29-2024 End: 06-29-2024 Patient encounter procedure Berenice Zepeda APRN.INDUSTRIAL ACCOUNTANT Work Phone: Internal Medicine Comment on above: Encounter for weight management (Primary Dx); Overweight Start: 03-06-2024 ambulatory Berenice wheatley APRN.INDUSTRIAL ACCOUNTANT Work Phone: Internal Medicine Start: 03-06-2024 Patient encounter procedure Berenice Zepeda APRN.INDUSTRIAL ACCOUNTANT Work Phone: Internal Medicine Comment on above: Prescription Start: 09-23-2023 End: 09-23-2023 ambulatory Berenice Zepeda APRN.INDUSTRIAL ACCOUNTANT Work Phone: Internal Medicine Comment on above: Encounter for weight management; Overweight (BMI 25.0-29.9) Start: 09-23-2023 End: 09-23-2023 Telemedicine consultation with patient Berenice Zepeda APRN.INDUSTRIAL ACCOUNTANT Work Phone: [facility] Start: 08-23-2023 End: 08-23-2023 ambulatory BERENICE ZEPEDA Facility:[facility] Start: 07-26-2023 End: 07-26-2023 ambulatory DASHA LUJAN Facility:[facility] Start: 07-21-2023 End: 07-21-2023 ambulatory BERENICE ZEPEDA Facility:[facility] Start: 07-21-2023 End: 07-21-2023 Patient encounter procedure Berenice Evelynradha BLUE Work Phone: Internal Medicine Comment on above: Routine adult health maintenance (Primary Dx); IFG (impaired fasting glucose); Encounter for weight management; Class 1 obesity due to excess calories with body mass index (BMI) of 30.0 to 30.9 in adult, unspecified whether serious comorbidity present; Encounter for immunization; Immunity status testing Start: 07-21-2023 End: 07-21-2023 Patient encounter status Berenice Zepeda INDUSTRIAL ACCOUNTANT Work Phone: [facility] Work Phone: Start: 06-29-2023 ambulatory Dasha Lujan MD Work Phone: Internal Medicine Comment on above: Prescription Start: 10-11-2022 End: 10-11-2022 ambulatory Reena Breaux Facility:[facility] Start: 10-11-2022 End: 10-11-2022 ambulatory MD Dasha Lujan Work Phone: [facility] Work Phone: Start: 10-11-2022 End: 10-11-2022 Patient encounter procedure MD Dasha Lujan Work Phone: [facility] Start: 06-10-2022 End: 06-10-2022 ambulatory Reena Breaux Facility:[facility] Start: 01-15-2022 End: 01-15-2022 Office outpatient new [...] Date Procedure Procedure Detail Performing Clinician Start: 01-10-2025 Urnls dip stick/tabl et rgnt non-auto w/o micrscp Roscoe Joe DO Work Phone: Start: 01-02-2025 US OB ANATOMY Roscoe Jian io DO Work Phone: Start: 01-02-2025 US OB CERVICAL LENGTH C orey Joe DO Work Phone: Start: 12-10-2024 RECURRENT VAGINITIS (HTRX) Rosy KRUGER Work Phone: Start: 12-10-2024 Urnls dip stick/tabl et rgnt non-auto w/o micrscp Rosy KRUGER Work Phone: Start: 12-10-2024 IGP,APTIMA HPV,AGE GDLN Rosy KRUGER Work Phone: Start: 12-10-2024 Microscopic observat ion [Identifier] in Cervix by Cyto stain Roscoe Joe DO Work Phone: Start: 11-08-2024 Urnls dip stick/tabl et rgnt non-auto w/o micrscp Roscoe Joe DO Work Phone: Start: 10-19-2024 ALL CBC WITH AUTO DIFF Roscoe Joe DO Work Phone: Start: 10-18-2024 Urnls dip stick/tabl et rgnt non-auto w/o micrscp Roscoe Joe DO Work Phone: Start: 01-15-2022 Adult depression scr eening assessment Dasha Lujan MD Work Phone: Plan of Treatment Date Care Activity Detail Author Start: 07-21-2033 Urine microalbumin profile [facility] Start: 12-11-2027 Screening for malign ant neoplasm of cervix [facility] Start: 04-22-2025 Influenza vaccination Influenz a Vaccine (Season Ended) [facility] Start: 02-11-2025 End: 02-11-2025 Patient encounter procedure 02/11/2025 11:30 AM EDT Routine [facility] [address] [place] [id number] Rosy Quiroz, SL[place] [address] [place], [place] [id number] [facility] Start: 01-30-2025 End: 01-30-2025 Professional / ancillary services management 01/30/2025 1:00 PM EDT Ancillary Procedure [facility] [address] [place] [address] [facility] Start: 01-15-2025 Pap Testing Pap Testing [facility] Start: 01-15-2025 Screening for malign ant neoplasm of cervix Pap Testing [facility] Start: 01-10-2025 End: 01-10-2026 CBC panel - Blood by Automated count CBC Lab Routine Diabetes mellitus screening Expected: 01/10/2025 (Approximate), Expires: 01/10/2026 [facility] Work Phone: Comment on above: Expected: 01/10/2025 (Approximate), Expires: 01/10/2026 Start: 01-10-2025 End: 01-10-2026 Measurement of glucose 1 hour after glucose challenge for glucose tolerance test Glucose tolerance, 1 hour Lab Routine Diabetes mellitus screening Expected: 01/10/2025 (Approximate), Expires: 01/10/2026 [facility] Comment on above: Expected: 01/10/2025 (Approximate), Expires: 01/10/2026 Start: 01-10-2025 End: 01-10-2025 Patient encounter procedure 01/10/2025 10:10 AM EDT Routine [facility] [address] [place] [address] Roscoe Diaz, DO [address] [place] [address] [facility] Start: 12-10-2024 End: 01-09-2025 Alpha fetoprotein, maternal Alpha fetoprotein, maternal Lab Routine Need for maternal serum alpha-protein (MSAFP) screening Expected: 12/10/2024 (Approximate), Expires: 01/09/2025 [facility] Comment on above: Expected: 12/10/2024 (Approximate), Expires: 01/09/2025 Start: 12-10-2024 End: 03-11-2025 US for US OB 14+ weeks anatomy scan Imaging Routine Screening, , for anatomic survey Expected: 12/10/2024, Expires: 03/11/2025 [facility] Comment on above: Expected: 12/10/2024 , Expires: 03/11/2025 Start: 12-10-2024 End: 12-10-2024 Patient encounter procedure 12/10/2024 11:00 AM EDT Routine [facility] [address] [id number] Rosy Quiroz PA [address] [place] [address] Arrived [facility] Comment on above: Arrived Start: 11-08-2024 End: 11-08-2024 Patient encounter procedure 11/08/2024 10:50 AM EDT Routine [facility] [address] [id number] Roscoe Diaz DO [address] [place] [address] [facility] Start: 10-18-2024 End: 10-18-2025 ABO/Rh ABO/Rh Lab Routine Missed menses , unspecified gestational age Expected: 10/18/2024 (Approximate), Expires: 10/18/2025 [facility] Comment on above: Expected: 10/18/2024 (Approximate), Expires: 10/18/2025 Start: 10-18-2024 End: 10-18-2025 Blood type and Indirect antibody screen panel - Blood Type and screen Lab Routine Missed menses , unspecified gestational age Expected: 10/18/2024 (Approximate), Expires: 10/18/2025 [facility] Comment on above: Expected: 10/18/2024 (Approximate), Expires: 10/18/2025 Start: 10-18-2024 End: 10-18-2025 Drugs of abuse panel - Urine by Screen method Rapid drug screen, urine Lab Routine , unspecified gestational age Encounter for supervision of normal first in first trimester Expected: 10/18/2024 (Approximate), Expires: 10/18/2025 [facility] Comment on above: Expected: 10/18/2024 (Approximate), Expires: 10/18/2025 Start: 10-18-2024 End: 10-18-2025 US Pelvis transvaginal [facility] Work Phone: Comment on above: Expected: 10/18/2024 , Expires: 10/18/2025 Start: 07-21-2024 Covid-19 Vaccine (#1) Covid-19 Vacci ne (#1) [facility] Comment on above: Postponed from 04/08 (Declined at this time) Start: 07-21-2024 Covid-19 Vaccine ( season) Covid-19 Vaccine ( season) [facility] Comment on above: Postponed from 04/22 (Declined at this time) Start: 04-22-2024 Covid-19 Vaccine ( season) Covid-19 Vaccine ( season) [facility] Start: 04-22-2024 Influenza vaccination Influenza Vacc ine (#1) [facility] Start: 02-19-2024 Influenza vaccination Influenza Vacc ine (#1) [facility] Comment on above: Postponed from 04/22 (Declined at this time) Start: 08-22-2023 Behavioral Health Screening Behavioral Health Screening [facility] Start: 08-22-2023 Depression Assessment Depression Ass essment [facility] Start: 07-21-2023 End: 10-20-2023 CBC W Auto Differential panel - Blood CBC + DIFF Lab Routine Routine adult health maintenance Expected: 07/21/2023, Expires: 10/20/2023 [facility] Work Phone: Comment on above: Expected: 07/21/2023 , Expires: 10/20/2023 Start: 07-21-2023 End: 10-20-2023 Comprehensive metabolic 2000 panel - Serum or Plasma COMP METABOLIC PANEL Lab Routine Routine adult health maintenance Expected: 07/21/2023, Expires: 10/20/2023 [facility] Work Phone: Comment on above: Expected: 07/21/2023 , Expires: 10/20/2023 Start: 07-21-2023 End: 10-20-2023 Hemoglobin A1c in Blood HGB A1C Lab Routine IFG (impaired fasting glucose) Routine adult health maintenance Expected: 07/21/2023, Expires: 10/20/2023 [facility] Work Phone: Comment on above: Expected: 07/21/2023 , Expires: 10/20/2023 Start: 07-21-2023 End: 10-20-2023 Hepatitis B virus surface Ab [Presence] in Serum HEP B SURF AB Lab Routine Immunity status testing Expected: 07/21/2023, Expires: 10/20/2023 [facility] Work Phone: Comment on above: Expected: 07/21/2023 , Expires: 10/20/2023 Start: 07-21-2023 End: 10-20-2023 Lipid 1996 panel - Serum or Plasma LIPID PANEL BASIC Lab Routine Routine adult health maintenance Expected: 07/21/2023, Expires: 10/20/2023 [facility] Work Phone: Comment on above: Expected: 07/21/2023 , Expires: 10/20/2023 Start: 07-06-2023 Hepatitis B Vaccine (1 of 3 - 3-dose series) Hepatitis B Vaccine (1 of 3 - 3-dose series) [facility] Comment on above: Postponed from 10/09 (Declined at this time) Start: 04-22-2023 Influenza vaccination Influenza Vacc ine (#1) [facility] Start: 01-15-2023 Adult depression screening assessment DEPRESSION SCREENING [facility] Start: 01-15-2023 COVID-19 VACCINE (#1) COVID-19 VACCI NE (#1) [facility] Comment on above: Postponed from 10/09 (Declined at this time) Start: 01-15-2023 PAP TESTING PAP TESTING [facility] Start: 01-15-2023 Screening for malign ant neoplasm of cervix Cervical Cancer Screening [facility] Start: 2022 HPV Testing HPV Testing [facility] Start: 2022 Screening for malign ant neoplasm of cervix [facility] Start: 08-22-2022 Depression Assessment Depression Ass essment [facility] Start: 04-22-2022 Influenza vaccination INFLUENZ A (Season Ended) [facility] Start: 01-15-2022 End: 03-17-2022 Hemoglobin A1c/Hemoglobin.total in Blood [facility] Work Phone: Comment on above: Expected: 01/15/2022 , Expires: 03/17/2022 Start: 2013 Screening for malign ant neoplasm of cervix Pap Smear [facility] Start: 2011 Urine microalbumin profile [facility] Start: 2010 Anxiety Screening Anxiety Screening [facility] Start: 2010 Depression Screening Depression Scre ening [facility] Start: 04-08-1993 Covid-19 Vaccine (#1) Covid-19 Vacci ne (#1) [facility] Start: 1992 Hepatitis B Vaccine (1 of 3 - 3-dose series) Hepatitis B Vaccine (1 of 3 - 3-dose series) [facility] Bacteria identified in Urine by Culture Urine culture Microbiology Routine Missed menses Ordered: 10/18/2024 [facility] Comment on above: Ordered: 10/18/2024 CBC W Auto Different ial panel - Blood CBC and differential Lab Routine Missed menses , unspecified gestational age Ordered: 10/18/2024 [facility] Comment on above: Ordered: 10/18/2024 CHLAMYDIA TRACHOMATI S (GENITO/STI) CHLAMYDIA TRACHOMATIS (GENITO/STI) Lab Routine Exposure to STD Ordered: 12/10/2024 [facility] Comment on above: Ordered: 12/10/2024 Cytology Cervical or vaginal smear or scraping study Pap Smear Pathology and Cytology Routine Well woman exam with routine gynecological exam Ordered: 12/10/2024 [facility] Comment on above: Ordered: 12/10/2024 Hemoglobin A1c/Hemoglobin.total in Blood Hemoglobin A1c Lab Routine Missed menses , unspecified gestational age Ordered: 10/18/2024 [facility] Comment on above: Ordered: 10/18/2024 Hepatitis B virus surface Ag [Presence] in Serum or Plasma by Immunoassay Hepatitis B surface antigen Lab Routine Missed menses , unspecified gestational age Ordered: 10/18/2024 [facility] Comment on above: Ordered: 10/18/2024 Hepatitis C virus Ab [Presence] in Serum or Plasma by Immunoassay Hepatitis C antibody Lab Routine Missed menses , unspecified gestational age Ordered: 10/18/2024 [facility] Comment on above: Ordered: 10/18/2024 HIV-1/HIV-2 antigen/antibody combination immunoassay HIV-1 and HIV-2 antibodies Lab Routine Missed menses , unspecified gestational age Ordered: 10/18/2024 [facility] Comment on above: Ordered: 10/18/2024 Human papilloma viru s DNA [Presence] in Unspecified specimen by Probe with amplification HPV DNA probe, amplified Microbiology Routine Well woman exam with routine gynecological exam Ordered: 12/10/2024 [facility] Comment on above: Ordered: 12/10/2024 Neisseria gonorrhoea e DNA [Presence] in Unspecified specimen by ALPA with probe detection Neisseria gonorrhea DNA probe, direct Lab Routine Exposure to STD Ordered: 12/10/2024 [facility] Comment on above: Ordered: 12/10/2024 Reagin Ab [Presence] in Serum by RPR RPR Lab Routine Missed menses , unspecified gestational age Ordered: 10/18/2024 [facility] Comment on above: Ordered: 10/18/2024 Rubella antibody, IgG Rubella an tibody, IgG Lab Routine Missed menses , unspecified gestational age Ordered: 10/18/2024 [facility] Comment on above: Ordered: 10/18/2024 SURESWAB(R) ADVANCED VAGINITIS PLUS, TMA SURESWAB(R) ADVANCED VAGINITIS PLUS, TMA Pathology and Cytology Routine Exposure to STD Ordered: 12/10/2024 [facility] Work Phone: Comment on above: Ordered: 12/10/2024 Thiamine [Moles/volu me] in Blood [facility] Immunizations Immunization Date Immunization Notes Care Provider Salvatore [email or web address] 07-21-2023 tetanus toxoid, redu sloane diphtheria toxoid, and acellular pertussis vaccine, adsorbed Berenice Evelyn PROGRAM DIRECTOR AIR TALENT.INDUSTRIAL ACCOUNTANT Work Phone: [facility] 05-03-2011 meningococcal polysaccharide (groups A, C, Y and W-135) diphtheria toxoid conjugate vaccine (MCV4P) Berenice Evelyn PROGRAM DIRECTOR AIR TALENT.INDUSTRIAL ACCOUNTANT Work Phone: [facility] 05-03-2011 tetanus toxoid, redu sloane diphtheria toxoid, and acellular pertussis vaccine, adsorbed Berenice Evelyn PROGRAM DIRECTOR AIR TALENT.INDUSTRIAL ACCOUNTANT Work Phone: [facility] 03-29-2011 human papilloma viru s vaccine, quadrivalent Berenice Evelyn PROGRAM DIRECTOR AIR TALENT.INDUSTRIAL ACCOUNTANT Work Phone: [facility] 11-26-2010 human papilloma viru s vaccine, quadrivalent Berenice Evelyn PROGRAM DIRECTOR AIR TALENT.INDUSTRIAL ACCOUNTANT Work Phone: [facility] 09-28-2010 human papilloma viru s vaccine, quadrivalent Berenice Evelyn PROGRAM DIRECTOR AIR TALENT.INDUSTRIAL ACCOUNTANT Work Phone: [facility] 04-30-1998 diphtheria, tetanus toxoids and acellular pertussis vaccine, unspecified formulation Berenice Evelyn PROGRAM DIRECTOR AIR TALENT.INDUSTRIAL ACCOUNTANT Work Phone: [facility] 04-30-1998 measles, mumps and rubella virus vaccine Berenice Evelyn PROGRAM DIRECTOR AIR TALENT.INDUSTRIAL ACCOUNTANT Work Phone: [facility] 04-30-1998 trivalent poliovirus vaccine, live, oral Berenice Evelyn PROGRAM DIRECTOR AIR TALENT.INDUSTRIAL ACCOUNTANT Work Phone: [facility] 06-07-1994 diphtheria, tetanus toxoids and acellular pertussis vaccine, unspecified formulation Berenice Evelyn PROGRAM DIRECTOR AIR TALENT.INDUSTRIAL ACCOUNTANT Work Phone: [facility] 06-07-1994 hepatitis B vaccine, pediatric or pediatric/adolescent dosage Berenice Evelyn PROGRAM DIRECTOR AIR TALENT.INDUSTRIAL ACCOUNTANT Work Phone: [facility] 06-07-1994 trivalent poliovirus vaccine, live, oral Berenice Evelyn PROGRAM DIRECTOR AIR TALENT.INDUSTRIAL ACCOUNTANT Work Phone: [facility] 03-01-1994 haemophilus influenz ae type b vaccine, conjugate unspecified formulation Berenice Evelyn PROGRAM DIRECTOR AIR TALENT.INDUSTRIAL ACCOUNTANT Work Phone: [facility] 03-01-1994 hepatitis B vaccine, pediatric or pediatric/adolescent dosage Berenice Evelyn PROGRAM DIRECTOR AIR TALENT.INDUSTRIAL ACCOUNTANT Work Phone: [facility] 03-01-1994 measles, mumps and rubella virus vaccine Berenice Evelyn PROGRAM DIRECTOR AIR TALENT.INDUSTRIAL ACCOUNTANT Work Phone: [facility] 07-27-1993 diphtheria, tetanus toxoids and pertussis vaccine Berenice Evelyn PROGRAM DIRECTOR AIR TALENT.INDUSTRIAL ACCOUNTANT Work Phone: [facility] 07-27-1993 haemophilus influenz ae type b vaccine, conjugate unspecified formulation Berenice Evelyn PROGRAM DIRECTOR AIR TALENT.INDUSTRIAL ACCOUNTANT Work Phone: [facility] 07-27-1993 hepatitis B vaccine, pediatric or pediatric/adolescent dosage Berenice Evelyn PROGRAM DIRECTOR AIR TALENT.INDUSTRIAL ACCOUNTANT Work Phone: [facility] 03-16-1993 diphtheria, tetanus toxoids and pertussis vaccine Berenice Evelyn PROGRAM DIRECTOR AIR TALENT.INDUSTRIAL ACCOUNTANT Work Phone: [facility] 03-16-1993 haemophilus influenz ae type b vaccine, conjugate unspecified formulation Berenice Evelyn PROGRAM DIRECTOR AIR TALENT.INDUSTRIAL ACCOUNTANT Work Phone: [facility] 03-16-1993 trivalent poliovirus vaccine, live, oral Berenice Evelyn PROGRAM DIRECTOR AIR TALENT.INDUSTRIAL ACCOUNTANT Work Phone: [facility] 1992 diphtheria, tetanus toxoids and pertussis vaccine Berenice Evelyn PROGRAM DIRECTOR AIR TALENT.INDUSTRIAL ACCOUNTANT Work Phone: [facility] 1992 haemophilus influenz ae type b vaccine, conjugate unspecified formulation Berenice Evelyn PROGRAM DIRECTOR AIR TALENT.INDUSTRIAL ACCOUNTANT Work Phone: [facility] 1992 trivalent poliovirus vaccine, live, oral Berenice Evelyn PROGRAM DIRECTOR AIR TALENT.INDUSTRIAL ACCOUNTANT Work Phone: [facility] Payers Date Payer Category Payer Blue [employer] [id number] 2023 Unknown [id number] 2023 Private Health Insurance [employer] [id number] 2023 Unknown [id number] 2022 Self-pay 2022 Unknown [id number] 2019 Unknown ANTHEM BLUE CARD PPO OOS [id number] 2019-Present [phone] [address] [place] [address] PPO [id number] 2019 Unknown [id number] 1992 Unknown [id number] 1259 1992 Unknown [id number] 1992 Unknown [id number] 1259 1992 Unknown [id number] 1259 1992 Unknown [id number] 1259 1992 Unknown [id number] [id number] 1992 Unknown [id number] 1259 Unknown [id number] Unknown [id number] Social History Date Type Detail Facility Tobacco smoking stat us VTIS Tobacco smoking consumption unknown [facility] Start: 1990 Sex Assigned At Not on file C [facility] Start: 01-15-2022 End: 10-17-2023 Tobacco smoking status VTIS Never smoked tobacco [facility] Start: 01-15-2022 End: 10-17-2023 Tobacco use and exposure Smokeless tobacco non-user [facility] Start: 01-15-2022 End: 08-23-2023 Alcohol intake Current drinker of alcohol (finding) [facility] Start: 01-15-2022 End: 07-25-2024 Alcohol intake [facility] Start: 01-12-2022 History SDOH Alcohol Frequency 2 [facility] Start: 01-12-2022 History SDOH Alcohol Std Drinks 1 [facility] Start: 01-15-2022 History SDOH Alcohol Comment occ. drink [facility] Start: 01-12-2022 History SDOH Social Connections Phone 5 [facility] Start: 01-12-2022 History SDOH Social Connections Get Together 4 [facility] Start: 01-12-2022 History SDOH Social Connections Living 7 [facility] Start: 01-12-2022 History SDOH Physica l Activity MPS 3 [facility] Start: 1990 Sex Assigned At Female C [facility] Start: 01-12-2022 End: 07-25-2024 Social connection and isolation panel [facility] Do you belong to any clubs or organizations such as yazidi groups, unions, fraternal or athletic groups, or school groups? No [facility] Are you now , , , , never or living with a partner? Never [facility] How often to you hav e a drink containing alcohol? Monthly or less [facility] How many standard dr inks containing alcohol do you have on a typical day? 1 or 2 [facility] How often do you hav e 6 or more drinks on 1 occasion? Never [facility] How hard is it for y ou to pay for the very basics like food, housing, medical care, and heating Not hard at all [facility] Do you feel stress - tense, restless, nervous, or anxious, or unable to sleep at night because your mind is troubled all the time - these days [OSQ] Not at all [facility] (I/We) worried delbert er (my/our) food would run out before (I/we) got money to buy more. Never true [facility] Start: 01-12-2022 Gender identity Identifies as female gender (finding) [facility] Are you now , , , , never or living with a partner? Living with partner [facility] How hard is it for y ou to pay for the very basics like food, housing, medical care, and heating Not very hard [facility] Do you feel stress - tense, restless, nervous, or anxious, or unable to sleep at night because your mind is troubled all the time - these days [OSQ] To some extent [facility] The food that (I/we) bought just didn't last, and (I/we) didn't have money to get more. DK or Refused [facility] Start: 10-17-2023 End: 01-10-2025 Alcoholic beverage intake Ex-drinker (finding) [facility] Start: 10-17-2023 Alcohol Comment Caffeine intak e: 1cup coffee/ day [facility] Start: 09-14-2023 [facility] Goals Date Patient Goal Desired Activity /State Personal health goal Clinical Notes 01-08-2022 to 01-10-2025 Vero Godinez LPN - 01/10/2025 10:10 AM Latoya Costello MA - 12/10/2024 11:00 AM SLICK Paul - 11/08/2024 10:50 AM Gilberto Mesa LPN - 10/18/2024 1:30 PM ESTPatient Instructions Note Date & Type Note Facility 01-10-2025 History of Present illness Narrative Reason for [...] Constitutional: Appearance: Normal appearance. She is well-developed. Cardiovascular: Rate and Rhythm: Normal rate and [...] nursing note reviewed. Exam conducted with a recreation director present. Vitals: Estimated body mass index is 34.92 kg/m as calculated from the following: Height as of 07/25/24: 5' 3 . Weight as of this encounter: 197 lb 1.9 oz. BP: 110/68 Patient's last menstrual period was 08/12/2024. ASSESSMENT & PLAN ICD-10-CM 1. 21 weeks gestation of Z3A.21 POCT urinalysis dipstick manually resulted 2. Second trimester Z34.92 POCT urinalysis dipstick manually resulted 3. Diabetes mellitus screening Z13.1 CBC Glucose tolerance, 1 hour CBC Glucose tolerance, 1 hour Patient presents today for a routine obstetrics appointment. Patient is currently 21w4d with a Estimated Date of Delivery: 05/19/25. Patient complaints of lower extremity swelling. Discussed ways to prevent swelling with leggings , elevation and increase water intake. Patient to return to clinic in 4 weeks for routine OB care. Patient given order to have repeat ultrasound to clear outflow tracts. Documented by Vero Godinez LPN on behalf of: Roscoe Diaz DO documented in this encounter [facility] 12-10-2024 History of Present illness Narrative Reason [...] nursing note reviewed. Exam conducted with a recreation director present. Vitals: Estimated body mass index is [...] at this visit. Pt was given the [place] order and advised she will have to [...] of: SLICK Matias documented in this encounter [facility] 11-08-2024 History of Present illness Narrative Reason [...] Roscoe Diaz DO documented in this encounter [facility] 10-18-2024 History of Present illness Narrative Reason [...] or undercooked meat, and stay away from [facility]. Patient has also been advised to not [...] Monika Mesa LPN documented in this encounter [facility] 08-02-2024 History of Present illness Narrative Images from the original note were not included. [address] , [address] [facility], [address] P: [phone] F: [phone] HPI Historian of HPI: patient Caryl Zamarripa [...] Left Turbinates: Enlarged and swollen. Mouth/Throat: Lips: [place]. Mouth: Mucous membranes are moist. Pharynx: Oropharynx [...] tablet; Refill: 0 documented in this encounter [facility] 07-25-2024 History of Present illness Narrative General [...] Use: Not At Risk (07/19/2023) Received from [facility] AUDIT-C Frequency of Alcohol Consumption: Monthly or less Average Number of Drinks: 1 or 2 Frequency of Binge Drinking: Never Depression: Not at risk (06/29/2024) Received from [facility] PHQ-2 PHQ-2 score: 0 Physical Activity: Insufficiently Active (07/19/2023) Received from [facility] Exercise Vital Sign Days of Exercise per [...] Alexandro Garner DO documented in this encounter [facility] 06-29-2024 Note HNO ID: [id number] Author: BERENICE ZEPEDA APRN.INDUSTRIAL ACCOUNTANT Service: ? Author Type: Nurse Practitioner Type: [...] - PHENTERMINE 37.5 MG TABLET Berenice Zepeda APRN.[facility] 06-29-2024 History of Present illness Narrative Caryl [...] - PHENTERMINE 37.5 MG TABLET Berenice Zepeda APRN.INDUSTRIAL ACCOUNTANT documented in this encounter [facility] 03-06-2024 Telephone encounter Note Order formatted Please advise [facility] 03-06-2024 Miscellaneous Notes Order formatted Please advise documented in this encounter [facility] 09-23-2023 Note HNO ID: [id number] Author: BERENICE ZEPEDA APRN.CNP Service: ? Author Type: Nurse Practitioner Type: Progress Notes Filed: 09/23/2023 15:52 Note Text: VIRTUAL VISIT PROGRESS NOTE This is a virtual visit using [employer] Video Visit. It required patient-provider interaction for the medical decision making as documented below. I have communicated my name and active licensure. The patient's identity and physical location were verified at the time of this visit. Either the patient or their legal claim service representative has been informed of the risks [...] Outpatient Medications Medication Sig Omeprazole Magnesium (ACID PIANO ASSEMBLER, OMEPRAZOLE,) 20 mg cpDR No current facility-administered [...] on file for this visit. Berenice Zepeda APRN.[facility] 09-23-2023 History of Present illness Narrative VIRTUAL VISIT PROGRESS NOTE This is a virtual visit using [employer] Video Visit. It required patient-provider interaction for the medical decision making as documented below. I have communicated my name and active licensure. The patient's identity and physical location were verified at the time of this visit. Either the patient or their legal claim service representative has been informed of the risks [...] Outpatient Medications Medication Sig Omeprazole Magnesium (ACID PIANO ASSEMBLER, OMEPRAZOLE,) 20 mg cpDR No current facility-administered [...] Berenice Zepeda APRN.GIORGI documented in this encounter [facility] 08-23-2023 Note HNO ID: [id number] Author: BERENICE ZEPEDA APRN.CNP Service: ? Author [...] PHENTERMINE 37.5 MG TABLET Berenice Zepeda APRN.GIORGI [facility] 07-21-2023 Note HNO ID: [id number] Author: Berenice Zepeda APRN.GIORGI Service: ? Author Type: Nurse Practitioner Type: Progress Notes Filed: 07/22/2023 10:16 AM Note Text: Caryl Zamarripa is a 32 year old female here today for review of established medical problems as well as comprehensive physical examination. Obesity S/p gastric sleeve surgery in 03/2022 at [facility] in [place] about 70lb, has reached plateau Gym 4 days per week with cardio (treadmill, elliptical) Maybe not enough water Tries to focus on more protein, lower carbs Last 10 Encounter Wt Readings: Date: Wt: 07/21/2023 80.1 kg (176 lb 8 oz) 07/06/2022 81.6 kg (180 lb) 01/15/2022 104.3 kg (230 lb) ASSOCIATE PRODUCT MANAGER in [facility] Dept Implanted control HM needs: Hepatitis B Vaccine(1 of 3 - 3-dose series) Never done Depression Assessment Never done HPV Testing Never done PAST MEDICAL HISTORY Diagnosis Date GERD (gastroesophageal reflux disease) Prediabetes PAST SURGICAL HISTORY Procedure Laterality Date PT ED BARIATRIC AND METABOLIC gastric sleeve 03/2022 ALLERGIES Patient has no known allergies. MEDICATIONS Omeprazole Magnesium (ACID PIANO ASSEMBLER, OMEPRAZOLE,) 20 mg cpDR Phentermine HCl 37.5 [...] No history of dysuria, frequency or incontinence ASSOCIATE PRODUCT MANAGER: Negative for abnormal vaginal bleeding, abnormal vaginal [...] and symmetric. Sensation grossly intact. Breast/Pelvic: Per ASSOCIATE PRODUCT MANAGER ASSESSMENT/PLAN: 1. Routine adult health maintenance - ICD9: V70.0, ICD10: Z00.00 (primary diagnosis) - Counseled on healthy diet and regular exercise - Calcium intake with supplements or by diet of 1000 mg/day for under 50, 6079-6594 mg/day for 50+ - Discussed need and [...] comorbidity present - (more content not included)... [facility] 07-21-2023 History of Present illness Narrative Caryl Zamarripa is a 32 year old female here today for review of established medical problems as well as comprehensive physical examination. Obesity S/p gastric sleeve surgery in 03/2022 at [facility] in [place] Down about 70lb, has reached plateau Gym 4 days per week with cardio (treadmill, elliptical) Maybe not enough water Tries to focus on more protein, lower carbs Last 10 Encounter Wt Readings: Date: Wt: 07/21/2023 80.1 kg (176 lb 8 oz) 07/06/2022 81.6 kg (180 lb) 01/15/2022 104.3 kg (230 lb) ASSOCIATE PRODUCT MANAGER [facility] Im[facility] control HM needs: Hepatitis B Vaccine(1 of 3 - 3-dose series) Never done Depression Assessment Never done HPV Testing Never done PAST MEDICAL HISTORY Diagnosis Date GERD (gastroesophageal reflux disease) Prediabetes PAST SURGICAL HISTORY Procedure Laterality Date PT ED BARIATRIC AND METABOLIC gastric sleeve 03/2022 ALLERGIES Patient has no known allergies. MEDICATIONS Omeprazole Magnesium (ACID PIANO ASSEMBLER, OMEPRAZOLE,) 20 mg cpDR Phentermine HCl 37.5 [...] No history of dysuria, frequency or incontinence ASSOCIATE PRODUCT MANAGER: Negative for abnormal vaginal bleeding, abnormal vaginal [...] and symmetric. Sensation grossly intact. Breast/Pelvic: Per ASSOCIATE PRODUCT MANAGER ASSESSMENT/PLAN: 1. Routine adult health maintenance - ICD9: V70.0, ICD10: Z00.00 (primary diagnosis) - Counseled on healthy diet and regular exercise - Calcium intake with supplements or by diet of 1000 mg/day for under 50, 6135-5291 mg/day for 50+ - Discussed need and [...] - HEP B SURF AB Berenice Zepeda APRN.INDUSTRIAL ACCOUNTANT ' documented in this encounter [facility] 06-29-2023 Miscellaneous Notes Sent Valtrex 1 gram twice/day for 2 days with one refill. High stress can cause cold sores? How is your stress level? documented in this encounter [facility] 01-15-2022 Instructions Dasha Lujan MD - 01/15/2022 12:05 PM EDT -Get Hgba1c and K level checked in the near future. -Encourage you to lose 2 lbs/week as a healthy way via diet and exercise -Should you have any questions or concerns, do not hesitate to contact me anytime via my chart (Dr.Sunir Lujan) documented in this encounter [facility] 05-27-2022 History of Present illness Narrative Caryl Zamarripa is a 31 year old female who presents with Establish Care -Pt is here to Establish Care. 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 Says all labs checked out fine per pt discussion. Pt says she did get her thyroid lab work checked 4 years ago, and all checked out fine. Thyroid blood work was also checked recently. 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 Pt says that she just needs to [...] process to get Bariatric Surgery done at [facility]. (R73.9) Blood glucose elevated Plan: HGB A1C (E87.5) Hyperkalemia Plan: POTASSIUM BLD -Will have her get K level rechecked. (K76.0) Hepatic steatosis -LFT were normal. -Encourage weight reduction and avoid alcohol and tylenol as much as possible. -Will continue to monitor LFT. Dasha Lujan MD documented in this encounter [facility] 01-08-2022 Miscellaneous Notes Will advise on Tuesday when he returns Patient calling stating Dr Lujan agreed to take her into his practice but no documentation found in patient chart. Please advise. documented in this encounter [facility] Evaluation note Diagnosis Preoperative clearance- Primary Preoperative examination, unspecified Obesity (BMI 30-39.9) Obesity, unspecified Blood glucose elevated Other abnormal glucose Hyperkalemia Hyperpotassemia Hepatic steatosis Other chronic nonalcoholic liver disease [facility] noteNo assessment information availableSt[facility] Work Phone: Evaluation note* Diagnosis Routine [...] Antibody response examination [facility] Diagnosis Encounter for weight management Overweight (BMI 25.0-29.9) Overweight [facility] Diagnosis Encounter for weight management- Primary Overweight [facility] Diagnosis Rectal bleeding- Primary Hemorrhage of rectum and anus documented in this encounter [facility]* Diagnosis Acute cough- Primary Chest congestion Other symptoms involving respiratory system and chest Bronchitis Bronchitis, not specified as acute or chronic documented in this encounter [facility] Healthcare[facility] note* Diagnosis Missed menses , unspecified gestational age Encounter for supervision of normal first in first trimester Nausea and vomiting in Unspecified vomiting of , unspecified as to episode of care documented in this encounter [facility] HealthcareEvaluation note* Diagnosis 12 weeks gestation of documented in this encounter [facility] HealthcareEvaluation note* Diagnosis Well woman exam with routine gynecological exam Routine gynecological examination Second trimester state, incidental 17 weeks gestation of Exposure to STD Need for maternal serum alpha-protein (MSAFP) screening Screening, , for anatomic survey Encounter for anatomic survey documented in this encounter [facility] HealthcareEvaluation note* Diagnosis 21 weeks gestation of Second trimester state, incidental Diabetes mellitus screening Screening for diabetes mellitus documented in this encounter [facility] Summary Purpose Family History No Family History Records FoundNo Family History Records FoundNo Family History Records FoundNo Family History Records Found Advance Directives No Advanced Directives Records Found Advance Directive Response Recorded Date/ Time Advance Directives No June 10, 2022 10:56am Chief Complaint and Reason for Visit Chief Complaint Z98.84;R60.9 Reason for Referral Specialty Diagnoses / Procedures Referred By Zachery t Referred To Contact Diagnoses Encounter for weight management Class 1 obesity due to excess calories with body mass index (BMI) of 30.0 to 30.9 in adult, unspecified whether serious comorbidity present Berenice Zepeda APRN.INDUSTRIAL ACCOUNTANT [address] [place] [address] Referral ID Status Reason Start Date Expiration Date Visits Re quested Visits Authorized [id number] Closed 1 1 Specialty Diagnoses / Procedures Referred By Contac t Referred To Contact Diagnoses Encounter for weight management Overweight (BMI 25.0-29.9) Berenice Zepeda APRN.INDUSTRIAL ACCOUNTANT [address] [place] [address] Referral ID Status Reason Start Date Expiration Date Visits Re quested Visits Authorized [id number] Closed 1 1 Additional Source Comments Source Comments (unrecognize d section and content) In the event this informatio n is protected by the Federal Confidentiality of Alcohol and Drug Abuse Patient Records regulations: The Federal rules restrict any use of the information to criminally investigate or prosecute any alcohol or drug abuse patient.[facility] the event this information is protected by the Federal Confidentiality of Alcohol and Drug Abuse Patient Records regulations: The Federal rules restrict any use of the information to criminally investigate or prosecute any alcohol or drug abuse patient.[facility] the event this information is protected by the Federal Confidentiality of Alcohol and Drug Abuse Patient Records regulations: The Federal rules restrict any use of the information to criminally investigate or prosecute any alcohol or drug abuse patient.[facility] the event this information is protected by the Federal Confidentiality of Alcohol and Drug Abuse Patient Records regulations: The Federal rules restrict any use of the information to criminally investigate or prosecute any alcohol or drug abuse patient.[facility] the event this information is protected by the Federal Confidentiality of Alcohol and Drug Abuse Patient Records regulations: The Federal rules restrict any use of the information to criminally investigate or prosecute any alcohol or drug abuse patient.[facility] the event this information is protected by the Federal Confidentiality of Alcohol and Drug Abuse Patient Records regulations: The Federal rules restrict any use of the information to criminally investigate or prosecute any alcohol or drug abuse patient.[facility] the event this information is protected by the Federal Confidentiality of Alcohol and Drug Abuse Patient Records regulations: The Federal rules restrict any use of the information to criminally investigate or prosecute any alcohol or drug abuse patient.[facility] Reason for Visit (unrecogniz ed section and [...] Contact General Surgery Diagnoses Rectal bleeding Procedures [place] [facility] Sina Garner, [address] [place] [address] Phone: tel: fax: Sina Garner, DO [address] [place] [address] Phone: tel: fax: Referral ID Status Reason Start Date Expiration Date V isits Requested Visits Authorized [id number] Closed Specialty Services Required 07/11/2024 01/07/2025 1 1 Reason Comments Amenorrhea Reason Comments Routine Visit Care Teams (unrecognized sec tion and content) Proof Machine Operator Supervisor Relationship Specialty [place] [address] [place] [address] PCP - General Internal Medicine 01/11/22 Team Status: Inactive Member Role Status Dates Dasha Lujan MD Primary Care Provider Active Reena Breaux APRN AMMONIA NITRATE OPERATOR-C Attending Provider Activ e Team Status: Active Member Role Status Dates Dasha Lujan MD Primary Care Provider Active Proof Machine Operator Supervisor Relationship Specialty [place] [address] [place] [address] PCP - General Internal Medicine 01/11/22 Proof Machine Operator Supervisor Relationship Specialty [place] [address] [place] [address] PCP - General Internal Medicine 01/11/22 Proof Machine Operator Supervisor Relationship Specialty [place] [address] [place] [address] PCP - General Internal Medicine 01/11/22 Proof Machine Operator Supervisor Relationship Specialty [place] [address] [place] [address] PCP - General Internal Medicine 01/11/22 Proof Machine Operator Supervisor Relationship Specialty [place] [address] [place] [address] PCP - General Internal Medicine 01/11/22 Proof Machine Operator Supervisor Relationship Specialty Start Date End Date Unallocated, [place] [address] PCP - General Family Medicine 10/17/23 Proof Machine Operator Supervisor Relationship Specialty Start Date End Date Unallocated, MD Kevin [facility] [place] [address] PCP - General Family Medicine 10/17/23 Proof Machine Operator Supervisor Relationship Specialty Start Date End Date Unallocated, MD Kevin Jackson [facility] [place] [address] PCP - General Family Medicine 10/17/23 Proof Machine Operator Supervisor Relationship Specialty Start Date End Date Unallocated, Ebenezer Pate MD [facility] [address] EUGENIEEmelia [facility] [place] [address] PCP - General Family Medicine 10/17/23 Proof Machine Operator Supervisor Relationship Specialty Start Date End Date Unallocated, Ebenezer Pate MD [facility] [place] [address] PCP - General Family Medicine 10/17/23 Proof Machine Operator Supervisor Relationship Specialty Start Date End Date Unallocated, Ebenezer Pate MD [address] [place] [address] [place] [address] PCP - General Family Medicine 10/17/23 Edu Alvarez NP [address] [place] [address] PCP - [place] [employer] 09/22/24 Proof Machine Operator Supervisor Relationship Specialty Start Date End Date Unallocated, Ebenezer Pate MD [address] [place], [place] [address] [address] PCP - General Family Medicine 10/17/23 Edu Alvarez AMMONIA NITRATE OPERATOR [address] [place] [address] PCP - [place] [employer] 09/22/24 Proof Machine Operator Supervisor Relationship Specialty Start Date End Date Unallocated, Ebenezer Pate MD [address] [place] [address] PCP - General Family Medicine 10/17/23 Edu Alvarez NP [address] [place] [address] PCP - [place] [employer] 09/22/24 Proof Machine Operator Supervisor Relationship Specialty Start Date End Date Unallocated, Ebenezer Pate MD [address] [place] [address] PCP - General Family Medicine 10/17/23 Edu Alvarez NP [address] [place] [address] PCP - [place] [employer] 09/22/24 Proof Machine Operator Supervisor Relationship Specialty Start Date End Date Unallocated, Ebenezer Pate MD [address] [place] [address] PCP - General Family Medicine 10/17/23 Edu Alvarez NP [address] [place] [address] PCP - [place] [employer] 09/22/24 INFORMATION SOURCE (unrecogn ized section and content) DATE CREATED AUTHOR 01/16/2022 [facility] DATE CREATED AUTHOR AUTHOR'S ORGANIZ ATION 10/18/2022 [facility] DATE CREATED AUTHOR AUTHOR'S ORGANIZ ATION 07/01/[address] [facility] DATE CREATED AUTHOR AUTHOR'S ORGANIZ ATION 01/17/2025 [facility] dicil Specialists EPIC Goals (unrecognized section and content) [...] BE BASED ON THE PRIMARY CLINICAL RECORDS. [employer] provides no warranty or guarantee of the accuracy or completeness of information in this document.
[2025-02-01 09:35] LABS: Basophils Percent Auto 0.2 % (0.2-2.0); Eosinophils Absolute Auto 0.1 10^3/uL (0.0-0.7); Eosinophils Percent Auto 1.1 % (0.9-7.0); Hematocrit 33.9 % (36.0-48.0); Hemoglobin 11.5 g/dL (12.0-16.0); Immature Granulocytes Abs Auto 0.04 10^3/uL (0.00-0.03); Immature Granulocytes Pct Auto 0.4 % (0.0-0.5); Lymphocytes Absolute Auto 1.2 10^3/uL (1.2-3.8); Lymphocytes Percent Auto 12.5 % (20.5-60.0); Mean Corpuscular HGB Conc 33.9 g/dL (29.9-35.2); Mean Corpuscular Hemoglobin 33.9 pg (26.7-34.0); Monocytes Absolute Auto 0.4 10^3/uL (0.3-0.8); Monocytes Percent Auto 3.9 % (1.7-12.0); Neutrophils Absolute Auto 7.7 10^3/uL (1.4-6.5); Neutrophils Percent Auto 81.9 % (43.0-75.0); Platelet Count 172 10^3/uL (150-450); Red Blood Count 3.39 10^6/uL (4.20-5.40); Red Cell Distribution Width 13.6 % (11.0-15.0); White Blood Count 9.4 10^3/uL (4.0-11.0)
[2025-02-01 11:35] LABS: Glucose 1 Hour 198 mg/dL (<130)
== END 2025-02-01 08:21 | disposition home or self-care (01) ==
LOC: LAB 08:20
PROVIDERS: Visit Provider Obstetrics & Gynecology
DX: Z13.1 Encounter for screening for diabetes mellitus (principal)
CPT/HCPCS: 36415; 82950; 85025

== ENCOUNTER 2025-04-01 14:58 | Outpatient (OUT) | payer BC, SELFPAY ==
--- OUTSIDE RECORDS SUMMARY | 2025-03-27 14:00 | XMS_ITS | Encounter Summary ---
Author Organization [facility] Address [address] [place] [address] Care Team Providers Care Bed Worker Name Role Phone Unallocated, [facility]oms Provider Primary Care Provi chrissy Amalia Bruce TRUCK SALES MANAGER Unavailable [phone] Encounter Details Date Type Department Care Team (Late st Contact Info) Description 03/27/2025 2:00 PM EDT Routine [facility] [address] [place] [id number] Roscoe Diaz DO [address] [place], [facility] Third trimester ([facility]); H/O gastric sleeve; Gestational diabetes mellitus (GDM), antepartum, gestational diabetes method of control unspecified ([facility]); 32 weeks gestation of ([facility]) Social History Tobacco Use Types Packs/Day [...] on file documented as of this encounter Last Filed Vital Signs Vital Sign Reading Time Taken Comments Blood Pressure 116/72 03/27/2025 2:01 PM EDT Pulse - - Temperature - - Respiratory Rate - - Oxygen Saturation - - Inhaled Oxygen Concentration - - Weight 92.9 kg (204 lb 12.8 oz) 03/27/2025 2:01 PM EDT Height - - Body Mass Index 36.28 07/25/2024 2:19 PM EST documented in this encounter Plan of Treatment Upcoming Encounters Date Type Department Care Team (Late st Contact Info) Description 04/10/2025 3:00 PM EDT Routine [facility] [address] [place] [id number] Roscoe Diaz DO [address] [place] [address] documented as of this encounter Goals Goal Patient Goal Type Associated Problems Recent Progress Patient-Stated? Author Reminders Care Plan OB Reminders No Open Scheduling, Background documented as of this encounter Procedures Procedure Name Priority Date/Time Associated Diagnosis Comments POCT URINALYSIS DIPSTICK Routine 03/27/2025 2:49 PM EDT Third trimester ([facility]) H/O gastric sleeve Gestational diabetes mellitus (GDM), antepartum, gestational diabetes method of control unspecified ([facility]) 32 weeks gestation of ([facility]) documented in this encounter Results * (ABNORMAL) POCT urinalysis dipstick manually resulted (03/27/2025 2:49 PM EDT) Color, UA Yellow Clarity, UA Clear Glucose, UA Negative Negative - 2000(110) ++++ mg/dL Bilirubin, UA Negative Negative - 4(70) +++ mg/dL Ketones, UA Positive Negative - 160(16) ++++ mg/dL Spec Grav, UA 1.030 1 - 1.03 Blood, UA Negative Negative - 50 Iraj/mcL pH, UA 6.0 5 - 9 Protein, UA Few Negative - 1999(20) ++++ mg/dL Urobilinogen, UA 0.2 0.2 - 12 mg/dL Leukocytes, UA Few Negative - 500+++ Mari/mcL Nitrite, UA Negative Negative - Positive Urine 03/27/2025 2:49 PM EDT Roscoe Diaz DO POINT OF CARE TEST ENTER/EDIT OR DERABLES Final Result documented in this encounter Visit Diagnoses Diagnosis Third trimester ([facility]) state, incidental H/O gastric sleeve Gestational diabetes mellitus (GDM), antepartum, gestational diabetes method of control unspecified ([facility]) 32 weeks gestation of ([facility]) documented in this encounter Additional Health Concerns Active Problems Noted Date Diagnosed Date OB Reminders 10/19/2024 documented as of this encounter Care Teams Bed Worker Relationship Specialty Start Date End Date Unallocated, Noms Provider, [address] [place], [place] [address] PCP - General Family Medicine 10/17/23 Amalia Bruce, TONIA [address] [place] [address] PCP - [place] 09/22/24 documented as of this encounter
--- NOTE | 2025-04-01 | US_ITS ---
The [address] [address] Patient Name: TRUDI ZAMARRIPA MRN: [id number] date: 1990 Sex: F Assigned Patient Location: US Current Patient Location: US Accession/Order Number: [id number] Exam Date: 04/01/2025 15:28 Report Date: 04/01/2025 15:29 At the request of: MAULIK QUIROZ Procedure: US OB BPP w non-stress Biophysical profile. Reason for exam: History of gastric sleeve surgery COMPARISON: None TECHNIQUE: Transabdominal imaging of the gravid uterus was obtained. FINDINGS: The staff cytotechnologist reports a BPP of 8 out of 8. HELLEN is normal at 10.8 cm. heart rate 125 bpm. US/US OB BPP w non-stress IMPRESSION: BPP 8 out of 8. Impression dictated by: Cy Jensen Jr., D.O. 04/01/2025 3:29 PM Dictation Location: [employer] Electronically authenticated by: [id number] Y Date: 04/01/2025 15:29
--- OUTSIDE RECORDS SUMMARY | 2025-04-01 10:00 | XMS_ITS | Encounter Summary ---
Author Organization [facility] tem Address [id number] [address] [place] [address] Care Team Providers Care Capacity Manager Name Role Phone Unavailable Primary Care Provider Milan e Encounter Details Date Type Department Care Team (Late st Contact Info) Description 04/01/2025 10:00 AM EDT Telemedicine Maternal- Medicine at [facility] [address] [place] [address] Daisha Morel PA-C [address] [address] Gestational diabetes requiring insulin (Primary Dx) Social History Tobacco Use Types Packs/Day Years Used Date Smoking Tobacco: Never Smokeless Tobacco: Never Alcohol Use Standard Drinks/Week Comments Not Currently 0 (1 standard drink = 0.6 oz pur e alcohol) Childcare Answer Date Recorded Childcare Unknown 01/31/2019 Employment Answer Date Recorded Employment Unknown 01/31/2019 Estimated Date of Delivery Comme nts Yes 05/19/2025 Based on last me nstrual period of 08/12/2024 Sex and Gender Information Value Date Recorded Sex Assigned at Not on file Legal Sex Female 8:37 PM EDT Gender Identity Not on file Sexual Orientation Not on file documented as of this encounter Progress Notes * Daisha Morel PA-C - 04/01/2025 10:00 AM EDT Maternal- Medicine Consultation VIRTUAL HISTORY OF PRESENT ILLNESS: Caryl Garcia is a 34 y.o. female at 33w1d due on Estimated Date of Delivery: 05/19/25 complicated by GDMA2. Patient is feeling well today. She denies contractions, vaginal bleeding, leaking fluid. She appreciates movement. Patient denies headache, visual symptoms, right upper abdominal pain, increasein edema, SOB, chest pain. Did not send in log prior to video visit, but read off the following levels looking at her log lexx F: 84, 86, 77, 86, 84, 87 One PPL was 176, ate wendys (chicken nuggets/fries/sauce), otherwise all post prandials under 140 Is taking Lantus 10u qhs Denies any values <60 day or night. Did have BG of 67 before meal yesterday, but hadnt eaten for4-5hrs. Denies h/o diabetes, chtn, heart or lung disease, anemia, or any other chronic medical problems outside of . Patient works at job she stands/sits throughout day, works 630a-3p LMP 08/12/2024 PAST OBSTETRICAL HISTORY: OB History 2 Para Term AB 1 Living SAB 1 IAB Ectopic Multiple Live Births SURGICAL HISTORY: Past Surgical History: Procedure Laterality Date BARIATRIC SURGERY STOMACH SURGERY 03/2022 GASTRIC SLEEVE ALLERGIES: No Known Allergies CURRENT MEDICATIONS: Current Outpatient Medications: insulin glargine (LANTUS SOLOSTAR U-100 INSULIN) 100 unit/mL (3 mL) insulin pen, Inject 10 units every evening . Prime with two units., Disp: 15 mL, Rfl: 3 omeprazole (PriLOSEC) 20 mg capsule, Take 1 capsule (20 mg total) by mouth in the morning., Disp: ,Rfl: ondansetron ODT (ZOFRAN ODT) 4 mg disintegrating tablet, Dissolve 1 tablet (4 mg total) on tongue every 8 (eight) hours as needed for nausea or vomiting., Disp: , Rfl: pen needle, diabetic (BD ULTRA-FINE NAZ PEN NEEDLE) 32 gauge x 5/32 needle, Use to inject insulinnightly, Disp: 100 each, Rfl: 2 25-IRON [id number] ORAL, Take 1 tablet by mouth in the morning., Disp: , Rfl: LABS: No results found for: TSH , T3 , TOTALT4 , THYROIDAB No components found for: UPRC No results found for: CREATININE , BUN , NA , K , CL , CO2 No results found for: ALT , AST , GGT , ALKPHOS , LABBILI Lab Results Component Value Date HGBA1C 5.1 10/19/2024 No components found for: POCA1C REVIEW OF SYSTEMS: Head and Neck: Negative for any dizziness and headaches. Cardiovascular and Respiratory System: Denies any chest pain, shortness of breath, and coughing. Abdominal and System: Denies any abdominal pain, nausea, vomiting, vaginal bleeding, and vaginaldischarge PHYSICAL EXAMINATION: Gen: NAD DISCUSSION Glucose goals in : Fasting 60 - 95: Mean fasting glucose values are important in managing diabetes in women because they provide overall glycemic estimate, and are predictive of increased fat mass in the women???s offspring. Increased fat mass has been shown to be associated with the development of childhood obesity, and diabetes. One hour postprandial 90 - 140: Postprandial measurements are important in management of diabetes in because they are associated with incidence of large for gestational age infants, and lower rates of delivery for cephalopelvic disproportion when well controlled. Discussed monitoring for hypogylcemia, signs/symptoms of hypoglycemia, and examples of treatment ofhypoglycemia ( rule). Discussed her current diet and her awareness of grams of carbohydrate per meal. Reviewed recommendations - 30g carbohydrate for breakfast, 45-60g carbohydrate for lunch and dinner, 15g carbohydrate for snacks, incorporating sufficient protein with each meal and ideally having half of plate be fruits and vegetables (with awareness of which fruits typically spike blood glucose). Encouraged her to be aware of carbohydrate intake and note which foods causing values above goal. Encouraged her on diet modifications. PLAN - Current blood glucose control: well controlled - Medication: - In setting of borderline fastings and EFW at 97th%ile,would recommend continuation of medication - Lantus 10u qhs - continue - Labs - A1c: 5.1 on 09/29/24 - growth ultrasounds every 4 weeks after 28 weeks - patient due for growth US this week - Last growth done 02/28/25: 1601 grams +/-240 grams (3 pounds, 8 ounces). EFW 97th%ile - Recommend the following for testing, which can be done with primary OB: - NST and HELLEN once weekly at 32 weeks - NST twice weekly and HELLEN once weekly at 36 weeks - Delivery recommendations : - Recommend delivery at 14w8r-29e9l - reviewed with pateint - Discuss delivery if estimated weight is >4500g - Use 1/2 dose of insulin the night before her planned delivery - reviewed with patient - Given GDMA2, can monitor patient's BG every 4hrs during latent labor, every 1 hr during active labor with goal BG to be less than 140mg/dl. Can use insulin sliding scale prn hyperglycemia. Once delivered, checked blood glucose fasting and 1hr post prandial, with goal of 100-130mg/dl for fasting and <180mg/dl for random or post prandial blood glucose levels - Obtain a 2-hour GTT 6-8 weeks . Also recommend yearly evaluation of blood glucose as patient is at an increased risk of developing diabetes later on - discussed with patient Labor symptoms, preeclampsia sign/symptoms, and movement precautions reviewed. Follow up in 4 weeks with Maternal- Medicine. I asked her to keep sending values to us weekly by e-mail to: or by fax to: [phone] Daisha Morel PA-C Maternal- Medicine Office phone: [phone] Daisha Morel PA-C 04/01/25 1331 documented in this encounter Plan of Treatment Not on file documented as of this encounter Visit Diagnoses Diagnosis Gestational diabetes requiring insulin- Primary Abnormal maternal glucose tolerance, complicating , childbirth, or the puerperium, unspecified as to episode of care documented in this encounter
--- OUTSIDE RECORDS SUMMARY | 2025-04-01 15:03 | XMS_ITS | Encounter Summary ---
Author Organization [facility] Address [address] [place] [address] Care Team Providers Care Automation Tester Name Role Phone Dasha Lujan MD Primary Care Provider Sonia Dickerson POULTRY PROCESSING SUPERVISOR.FINANCIAL CENTER MANAGER Unavailable Fatimah Geiger POULTRY PROCESSING SUPERVISOR.FINANCIAL CENTER MANAGER Unavailable Ruth Richardson POULTRY PROCESSING SUPERVISOR.FINANCIAL CENTER MANAGER Unavailable Berenice Rivas APRN.FINANCIAL CENTER MANAGER Unavailable Zarina Pope PA-C Unavailable Source Comments In the event this information is protected by the Federal Confidentiality of Alcohol and Drug AbusePatient Records regulations: The Federal rules restrict any use of the information to criminally investigate or prosecute any alcohol or drug abuse patient.[facility] Encounter Details Date Type Department Care Team (Late st Contact Info) Description 06/12/2024 Patient Msg Internal Medicine [address] [place] [address] Berenice Rivas APRN.FINANCIAL CENTER MANAGER [address] [place] [address] Appointment Request Social History Tobacco Use Types Packs/Day Years Used Date Smoking Tobacco: Never Smokeless Tobacco: Never Alcohol Use Standard Drinks/Week Comments Yes 1.3 (1 standard drink = 0.6 oz p ure alcohol) occ. drink [facility] Utilities Answer Date Recorded In the past 12 months has th e electric, gas, oil, or water [employer] threatened to shut off services in your home? No 07/19/2023 Social Connection and Isolation Panel Answer Date Recorded In a typical week, how many times do you talk on the phone with family, friends, or neighbors? More than three times a week 07/19/2023 How often do you get togethe r with friends or relatives? Once a week 07/19/2023 How often do you attend chur ch or sabianism services? Never 07/19/2023 Do you belong to any clubs o r organizations such as roman catholic groups, unions, fraternal or athletic groups, or [...] Answer Date Recorded PHQ-2 score 0 07/22/2023 [facility] [place] of Occupat ional Health - Occupational Stress [...] place to sleep or slept in a fdc (including now)? No 07/19/2023 Area Deprivation Index Answer Date Vern rded National Score (1-100), lower number is lower ri sk 90 07/19/2023 State Score (1-10), lower number is lower risk 8 07/19/2023 Data from: https://www.neighborhoodatlas.medicine.[facility].edu/. Last address used for calculation [address] [...] on filedocumented in this encounter Care Teams Automation Tester Relationship Specialty [place] [address] [place] [address] PCP - General Internal Medicine 01/11/22 Sonia Dickerson, POULTRY PROCESSING SUPERVISOR.FINANCIAL CENTER MANAGER [address] [place] [address] Glass Forming Engineer Internal Medicine 07/30/24 08/29/24 Fatimah Geiger, POULTRY PROCESSING SUPERVISOR.FINANCIAL CENTER MANAGER [address] [place] [address] Glass Forming Engineer Internal Medicine 07/30/24 Ruth Richardson, POULTRY PROCESSING SUPERVISOR.FINANCIAL CENTER MANAGER [address] [place] [address] [facility] Internal Medicine 07/30/24 08/29/24 Berenice Rivas, POULTRY PROCESSING SUPERVISOR.FINANCIAL CENTER MANAGER [address] [place] [address] [facility] Internal Medicine 07/30/24 08/29/24 Zarina Pope PA-C [address] [place] [address] Glass Forming Engineer Internal Medicine 07/30/24 08/29/24 documented as of this encounter
--- OUTSIDE RECORDS SUMMARY | 2025-04-01 15:03 | XMS_ITS | Encounter Summary ---
Author Organization [facility] Address [address] [place] [address] Care Team Providers Care Emergency Communications Operator Name Role Phone Unallocated, Noms Provider Primary Care Provi chrissy Amalia Bruce CUSTOMER SUPPORT ENGINEER Unavailable [phone] Encounter Details Date Type Department Care Team (Late st Contact Info) Description 02/04/2025 Results Follow-Up CHIARA CAAL [address] [facility] [place] [address] Monika Mesa LPN [address] [place] [id number] Social History Tobacco Use Types Packs/Day Years [...] on file documented as of this encounter Miscellaneous Notes * Result Encounter Note - Monika Mesa LPN - 02/04/2025 12:02 PM EDT Referral sent and supplies sent in documented in this encounter Plan of Treatment Upcoming Encounters Date Type Department Care Team ([facility] st Contact Info) Description 04/10/2025 3:00 PM EDT Routine CHIAAR [place] OBGYN [address] [place] [address] Roscoe Diaz DO [address] [facility] [place] [address] documented as of this encounter Goals Goal Patient Goal Type Associated Problems Recent Progress Patient-Stated? Author Reminders Care Plan OB Reminders No Open Scheduling, Background documented as of this encounter Visit Diagnoses Not on filedocumented in this encounter Additional Health Concerns Active Problems Noted Date Diagnosed Date OB Reminders 10/19/2024 documented as of this encounter Care Teams Emergency Communications Operator Relationship Specialty Start Date End Date Unallocated, Noms Herlinda, [address] [place] [address] PCP - General Family Medicine 10/17/23 Amalia Bruce, TONIA [address] [place] [address] PCP - Capo Wild 09/22/24 documented as of this encounter
--- OUTSIDE RECORDS SUMMARY | 2025-04-01 15:03 | XMS_ITS | Encounter Summary ---
Author Organization [facility] tem Address [id number] [address] [place] [address] Care Team Providers Care Jeep Driver Name Role Phone Unavailable Primary Care Provider Unavailabl e Encounter Details Date Type Department Care Team (Late st Contact Info) Description 03/26/2025 Telephone Maternal- Medicine at [facility] [address] [place] [phone] Devika Pope LD [address] [place] [address] Social History Tobacco Use Types Packs/Day Years [...] as of this encounter Miscellaneous Notes * Telephone Encounter - JOEL Oakes - 03/26/2025 11:21 AM EDT Called regarding blood sugar logs from 03/18/2025-03/24/2025 but received voicemail. Caryl had one elevated fasting blood sugar ( she may not of had a snack the night before) and three elevated blood sugars after dinner. She is taking 10 units of Lantus in the evening. Will send a Oxatis message. documented in this encounter Plan of Treatment Not on file documented as of this encounter Visit Diagnoses Not on filedocumented in this encounter
--- OUTSIDE RECORDS SUMMARY | 2025-04-01 15:03 | XMS_ITS | Encounter Summary ---
Author Organization [facility] Address [address] [place] [address] Care Team Providers Care Hemotherapist Name Role Phone Dasha Lujan MD Primary Care Provider Sonia Dickerson TAX ASSISTANT.REGULATORY INTERNSHIP Unavailable Fatimah Geiger TAX ASSISTANT.REGULATORY INTERNSHIP Unavailable Ruth Richardson TAX ASSISTANT.REGULATORY INTERNSHIP Unavailable Berenice Rivas APRN.REGULATORY INTERNSHIP Unavailable Zarina Pope PA-C Unavailable Source Comments In the event this information is protected by the Federal Confidentiality of Alcohol and Drug AbusePatient Records regulations: The Federal rules restrict any use of the information to criminally investigate or prosecute any alcohol or drug abuse patient.[facility] Encounter Details Date Type Department Care Team (Late st Contact Info) Description 06/18/2024 Patient Msg Internal Medicine [address] [place] [address] Berenice Rivas APRN.REGULATORY INTERNSHIP [address] [place] [address] Appointment Request Social History Tobacco Use Types Packs/Day Years Used Date Smoking Tobacco: Never Smokeless Tobacco: Never Alcohol Use Standard Drinks/Week Comments Yes 1.3 (1 standard drink = 0.6 oz p ure alcohol) occ. drink [facility] Utilities Answer Date Recorded In the past 12 months has th e electric, gas, oil, or water [employer] threatened to shut off services in your [...] often do you attend chur ch or sikh services? Never 07/19/2023 Do you belong to any clubs o r organizations such as hindu groups, unions, fraternal or athletic groups, or [...] Answer Date Recorded PHQ-2 score 0 07/22/2023 [facility] [place] of Occupat ional Health - Occupational Stress [...] place to sleep or slept in a alf (including now)? No 07/19/2023 Area Deprivation Index Answer Date Vern rded National Score (1-100), lower number is lower ri sk 90 07/19/2023 State Score (1-10), lower number is lower risk 8 07/19/2023 Data from: https://www.neighborhoodatlas.medicine.[facility].edu/. Last address used for calculation [address] [...] on filedocumented in this encounter Care Teams Hemotherapist Relationship Specialty [place] [address] [place] [address] PCP - General Internal Medicine 01/11/22 Sonia Dickerson, TAX ASSISTANT.REGULATORY INTERNSHIP [address] [place] [address] Disaster Recovery Analyst Internal Medicine 07/30/24 08/29/24 Fatimah Geiger, TAX ASSISTANT.REGULATORY INTERNSHIP [address] [place] [address] Disaster Recovery Analyst Internal Medicine 07/30/24 Ruth Richardson, TAX ASSISTANT.REGULATORY INTERNSHIP [address] [place] [address] [facility] Internal Medicine 07/30/24 08/29/24 Berenice Rivas, TAX ASSISTANT.REGULATORY INTERNSHIP [address] [place] [address] [facility] Internal Medicine 07/30/24 08/29/24 Zarina Pope PA-C [address] [place] [address] Disaster Recovery Analyst Internal Medicine 07/30/24 08/29/24 documented as of this encounter
--- OUTSIDE RECORDS SUMMARY | 2025-04-01 15:03 | XMS_ITS | Encounter Summary ---
Author Organization [facility] Address [address] [place] [address] Care Team Providers Care Dietetic Technician Name Role Phone Unallocated, Noms Provider Primary Care Provi chrissy Amalia Bruce RESIDENTIAL LIVING ASSISTANT Unavailable [phone] Encounter Details Date Type Department Care Team (Late Contact Info) Description 01/09/2025 Abstract [facility] [address] [place] [address] Roscoe Diaz DO [address] [facility] [place] [address] Social History Tobacco Use Types Packs/Day Years [...] Department Care Team (Late Contact Info) Description 04/10/2025 3:00 PM EDT Routine [facility]ARA CAAL [address] [place] [phone] Roscoe Diaz DO [address] [facility] [place] [address] documented as of this encounter Goals Goal Patient Goal Type Associated Problems Recent Progress Patient-Stated? Author Reminders Care Plan OB Reminders No Open Scheduling, Background documented as of this encounter Visit Diagnoses Not on filedocumented in this encounter Additional Health Concerns Active Problems Noted Date Diagnosed Date OB Reminders 10/19/2024 documented as of this encounter Care Teams Dietetic Technician Relationship Specialty Start Date End Date Unallocated, Nomgilmar Provider, [address] [place], [place] [phone] PCP - General Family Medicine 10/17/23 Amalia Bruce, TONIA [address] [place] [address] PCP - Capo Commercial 09/22/24 documented as of this encounter
--- OUTSIDE RECORDS SUMMARY | 2025-04-01 15:03 | XMS_ITS | Clinical Summary ---
Author Organization [facility] [employer] [facility] tem Address [id number] [address] [place] [address] Care Team Providers Care Bend Sorter Name Role Phone Unavailable Primary Care Provider Unavailabl e Allergies No known active allergies Medications 25-IRON TXL-GLIAQ-KIU ORAL Take 1 tablet by mouth in the morning. Active ondansetron ODT (ZOFRAN ODT) 4 mg disintegrating tablet Dissolve 1 tablet (4 mg total) on tongue every 8 (eight) hours as needed for nausea or vomiting. Active omeprazole (PriLOSEC) 20 mg capsule Take 1 capsule (20 mg total) by mouth in the morning. Active insulin glargine (LANTUS SOLOSTAR U-100 INSULIN) 100 unit/mL (3 mL) insulin penIndications:Gest ational diabetes requiring insulin Inject 10 units every evening . Prime with two units. 15 mL 3 5 Active pen needle, diabetic (BD ULTRA-FINE NAZ PEN NEEDLE) 32 gauge x 5/32 needleIndications:G estational diabetes requiring insulin Use to inject insulin nightly 100 each 2 5 Active Active Problems Problem Noted Date Diagnosed Date Gestational diabetes requiring insulin 5 Estimated Date of Delivery Comme nts Yes 05/19/2025 Based on last me nstrual period of 08/12/2024 Encounters Date Type Department Care Team Description 04/01/2025 10:00 AM EDT Telemedicine Maternal- Medicine at [facility] [address] [place] [phone] Daisha Morel PA-C Gestational diabetes requiring insulin (Primary Dx) 04/01/2025 Telephone Maternal- Medicine at [facility] [address] [place] [address] Blanquita Toney, KARISSA 04/01/2025 Travel 04/01/2025 Telephone Maternal- Medicine at [facility] [address] [place] [address] Blanquita Toney, KARISSA 03/26/2025 Telephone Maternal- Medicine at [place] [address] [place] [address] Devika Pope LD 03/19/2025 Telephone Maternal- Medicine at [place] [address] [place] [address] Fatimah Ball LD 03/12/2025 1:30 PM EDT Office Visit Maternal- Medicine at [place] [address] [place] [address] Daisha Morel PA-C Gestational diabetes mellitus (GDM) in second trimester, gestational diabetes method of control unspecified (Primary Dx); Gestational diabetes requiring insulin 03/12/2025 Travel 03/05/2025 Telephone Maternal- Medicine at [facility] [address] [place] [address] Devika Pope LD 02/26/2025 Telephone Maternal- Medicine at [place] [address] [place] [address] Devika Pope LD 02/14/2025 1:30 PM EDT Support Visit Maternal- Medicine at [place] [address] [place] [address] Hien Giles RN Devika Pope, LD Gestational diabetes mellitus (GDM) in second trimester, gestational diabetes method of control unspecified (Primary Dx) 02/13/2025 Travel 02/07/2025 Orders Only Maternal- Medicine at [facility] [address] [place] [address] Ref Prov, Not In System 02/07/2025 Abstract Maternal- Medicine at [facility] [address] [place] [address] External, Scanning Provider from Last 3 Months Family History Medical [...] on file Sexual Orientation Not on file Last Filed Vital Signs Vital Sign Reading Time Taken Comments Blood Pressure 99/57 03/12/2025 1:35 PM EDT Pulse 76 03/12/2025 1:35 PM EDT Temperature - - Respiratory Rate - - Oxygen Saturation - - Inhaled Oxygen Concentration - - Weight 93.2 kg (205 lb 6.4 oz) 03/12/2025 1:35 P M EDT Height 160 cm (5' 3 ) 03/12/2025 1:35 PM EDT Body Mass Index 36.38 03/12/2025 1:35 PM EDT Plan of Treatment Health Maintenance Due Date Last Done Comments Depression Screening 2004 Adult BMI Follow Up Plan 2010 Influenza Vaccine 04/22/2025 Adult BMI Screening 03/12/2026 03/12/2025 Tobacco Screening 03/12/2026 03/12/2025 Pap Smear 12/11/2027 12/10/2024 DTaP,Tdap and Td Vaccines (8 - Td or Tdap) 07/21/2033 07/21/2023, 05/03/2011, 04/30/1998, Additional history exists Medical Devices Not on file Procedures Procedure Name Priority Date/Time Associated Diagnosis Comments GLUCOSE RANDOM OR FASTING Routine 02/14/2025 Gestational diabetes mellitus (GDM) in second trimester, gestational diabetes method of control unspecified ULTRASOUND OFFICE Routine 02/07/2025 10: 53 AM EDT ULTRASOUND OFFICE Routine 02/07/2025 10: 52 AM EDT ULTRASOUND OFFICE Routine 02/07/2025 10: 48 AM EDT UNLISTED GENETIC TEST Routine 02/07/2025 10:34 AM EDT UNLISTED GENETIC TEST Routine 02/07/2025 10:32 AM EDT GLU 1H POST 50G LOAD Routine 02/01/2025 HEMOGLOBIN AND HEMATOCRIT, BLOOD Routine 02/01/2025 AFP SINGLE MARKER SCRN, MATERNAL, SERUM Routine 12/31/2024 from Last 3 Months Results * Glucose random or fasting- POCT (02/14/2025) External Glucose Fasting Or Random (Fbs) 88 MANUALLY TRANSCRIBED RESULTS Blood Venous blood / Unknown 02/14/2025 us Arie Piper MD LAB BLOOD ORDERABLES Final Re sult Performing Organization Address City/[facility]/ZIP Co de Phone Number MANUALLY TRANSCRIBED RESULTS * Ultrasound - Office (02/07/2025 10:53 AM EDT) Only the most recent of3 resultswithin the time period is included. Anatomical Region Laterality Modality AMB Ultrasound us Not In System Ref Prov IMG US ORDERABLES Final R esult * Unlisted Genetic Test (02/07/2025 10:34 AM EDT) Only the most recent of2 resultswithin the time period is included. us Not In System Ref Prov LAB BLOOD ORDERABLES Madelaine l Result MANUALLY TRANSCRIBED RESULTS * Glucose 1h post 50g load (02/01/2025) Glucose, 1 hr PP 50GM dose 198 MANUALLY TRANSCRIBED RESULTS Blood Venous blood / Unknown us Not In System Ref Prov LAB BLOOD ORDERABLES Madelaine l Result MANUALLY TRANSCRIBED RESULTS * Hemoglobin and hematocrit, blood (02/01/2025) Hemoglobin 11.5 MANUALLY TRANSCRIBED RESULTS Hematocrit 33.9 MANUALLY TRANSCRIBED RESULTS Blood Venous blood / Unknown us Not In System Ref Prov LAB BLOOD ORDERABLES Madelaine l Result MANUALLY TRANSCRIBED RESULTS * AFP Single Marker Scrn, Maternal, Serum (12/31/2024) Ms Alpha-Fetoprot ein NEGATIVE MANUALLY TRANSCRIBED RESULTS Blood Venous blood / Unknown us Not In System Ref Prov LAB BLOOD ORDERABLES Madelaine l Result MANUALLY TRANSCRIBED RESULTS from Last 3 Months Insurance [facility] Member Subscriber Plan / Payer (Ef fective 2023-Present) Name:Caryl Garcia Relation to Subscriber:Self Name:Caryl Garcia Payer ID:[id number] (NAIC) Type:Not on file Address: [address] [place] [id number]
--- OUTSIDE RECORDS SUMMARY | 2025-04-01 15:03 | XMS_ITS | Encounter Summary ---
[facility] tem Address [id number] [address] [place] [address] Care Team Providers Care Lead Slot Technician Name Role Phone Unavailable Primary Care Provider Unavailabl e Encounter Details Date Type Department Care Team (Latest Contact Info) Description 04/01/2025 Travel Social History Tobacco Use Types Packs/Day [...]
--- OUTSIDE RECORDS SUMMARY | 2025-04-01 15:03 | XMS_ITS | Encounter Summary ---
Author Organization [facility] Address [address] [place] [address] Care Team Providers Care Piano Maker Name Role Phone Unallocated, Noms Provider Primary Care Provi chrissy Amalia Bruce SENIOR PHP SOFTWARE DEVELOPER Unavailable [phone] Encounter Details Date Type Department Care Team (Late Contact Info) Description 02/06/2025 Abstract [facility] [address] [place] [address] Roscoe Diaz DO [address] [facility] [place] [address] Social History Tobacco Use Types Packs/Day Years [...] 3:00 PM EDT Routine CHIARA CAAL [address] [facility] [place] [phone] Roscoe Diaz DO [address] [facility] [place] [address] documented as of this encounter Goals Goal Patient Goal Type Associated Problems Recent Progress Patient-Stated? Author Reminders Care Plan OB Reminders No Open Scheduling, Background documented as of this encounter Visit Diagnoses Not on filedocumented in this encounter Additional Health Concerns Active Problems Noted Date Diagnosed Date OB Reminders 10/19/2024 documented as of this encounter Care Teams Piano Maker Relationship Specialty Start Date End Date Unallocated, Nomgilmar Provider, [address] [place], [place] [id number] PCP - General Family Medicine 10/17/23 Amalia Bruce, TONIA [address] [place] [address] PCP - Capo Commercial 09/22/24 documented as of this encounter
--- OUTSIDE RECORDS SUMMARY | 2025-04-01 15:03 | XMS_ITS | Encounter Summary ---
Author Organization [facility] Address [address] [place] [address] Care Team Providers Care Publications Production Supervisor Name Role Phone Unallocated, Noms Provider Primary Care Provi chrissy Amalia Bruce RETAIL AGENT Unavailable [phone] Encounter Details Date Type Department Care Team (Late st Contact Info) Description 03/27/2025 Bamboo flowsheet CHIARA CAAL [address] [facility] [place] [place] [address] Roscoe Diaz DO [address] [facility] [address] [place], [facility] Social History Tobacco Use Types Packs/Day Years [...] Description 04/10/2025 3:00 PM EDT Routine CHIAAR SILVAGYN [address] [place] [phone] Roscoe Diaz DO [address] [place] [address] documented as of this encounter Goals Goal Patient Goal Type Associated Problems Recent Progress Patient-Stated? Author Reminders Care Plan OB Reminders No Open Scheduling, Background documented as of this encounter Visit Diagnoses Not on filedocumented in this encounter Additional Health Concerns Active Problems Noted Date Diagnosed Date OB Reminders 10/19/2024 documented as of this encounter Care Teams Publications Production Supervisor Relationship Specialty Start Date End Date Unallocated, Noms Provider, MD [address] [place], [place] [phone] PCP - General Family Medicine 10/17/23 Amalia Bruce, TONIA [address] [place] [address] PCP - Capo Wild 09/22/24 documented as of this encounter
--- OUTSIDE RECORDS SUMMARY | 2025-04-01 15:03 | XMS_ITS | Encounter Summary ---
Author Organization [facility] Address [address] [place] [address] Care Team Providers Care Community Center Coordinator Name Role Phone Unallocated, Noms Provider Primary Care Provi chrissy Amalia Bruce SHIP FITTER Unavailable [phone] Reason for Visit * Reason Onset Date Comments Med Refill 10/23/2024 Encounter Details Date Type Department Care Team (Late Contact Info) Description 10/23/2024 Refill [facility] [address] [facility] [address] [place] [address] Unallocated, Noms Provider, [address] [place] [address] Social History Tobacco Use Types Packs/Day Years [...] PM EDT Routine [facility] [address] [place] [address] Roscoe Diaz DO [address] [facility] [place] [address] documented as of this encounter Goals Goal Patient Goal Type Associated Problems Recent Progress Patient-Stated? Author Reminders Care Plan OB Reminders No Open Scheduling, Background documented as of this encounter Visit Diagnoses Not on filedocumented in this encounter Additional Health Concerns Active Problems Noted Date Diagnosed Date OB Reminders 10/19/2024 documented as of this encounter Care Teams Community Center Coordinator Relationship Specialty Start Date End Date Unallocated, Noms Provider, [address] [place] [address] PCP - General Family Medicine 10/17/23 Amalia Bruce, TONIA [address] [place] [address] PCP - Capo Commercial 09/22/24 documented as of this encounter
--- OUTSIDE RECORDS SUMMARY | 2025-04-01 15:03 | XMS_ITS | Encounter Summary ---
Author Organization [facility] tem Address [id number] [address] [place] [address] Care Team Providers Care Reading Coach Name Role Phone Unavailable Primary Care Provider Unavailabl e Encounter Details Date Type Department Care Team (Late st Contact Info) Description 04/01/2025 Telephone Maternal- Medicine at [facility] [address] [facility] [place] [address] Blanquita Toney, KARISSA Social History Tobacco Use Types Packs/Day Years [...] encounter Miscellaneous Notes * Telephone Encounter - Blanquita Toney RN - 04/01/2025 10:34 AM EDT Left message for patient to call M back to reschedule a 4 week video visit shobha Marr. documented in this encounter Plan of Treatment Not on file documented as of this encounter Visit Diagnoses Not on filedocumented in this encounter
--- OUTSIDE RECORDS SUMMARY | 2025-04-01 15:03 | XMS_ITS | Encounter Summary ---
Author Organization [facility] tem Address [id number] [address] [place] [address] Care Team Providers Care Barrel Filler Name Role Phone Unavailable Primary Care Provider Unavailabl e Encounter Details Date Type Department Care Team (Late st Contact Info) Description 03/19/2025 Telephone Maternal- Medicine at [facility] [address] [place] [address] Fatimah Ball LD Social History Tobacco Use Types Packs/Day Years [...] Miscellaneous Notes * Telephone Encounter - JOEL Pimentel - 03/19/2025 10:08 AM EDT Blood glucose log from 03/11/25 to 03/17/25 received. Patient did not answer. I left a voicemail asking her to check for a new MyChart message that I am going to leave with questions about her dinner values (4 out of 7 were still elevated). Patient started Lantus on 03/12/25 and all fasting BG now in target. documented in this encounter Plan of Treatment Not on file documented as of this encounter Visit Diagnoses Not on filedocumented in this encounter
--- OUTSIDE RECORDS SUMMARY | 2025-04-01 15:03 | XMS_ITS | Encounter Summary ---
Author Organization [facility] Address [address] [place] [address] Care Team Providers Care Computer Systems Designer Name Role Phone Unallocated, Noms Provider Primary Care Provi chrissy Amalia Bruce BANKING AND FINANCE INSTRUCTOR Unavailable [phone] Encounter Details Date Type Department Care Team (Latest Contact Info) Description 03/27/2025 Travel Social History Tobacco Use Types Packs/Day [...] PM EDT Routine [facility] [address] [place] [address] Roscoe Diaz DO [address] [place] [address] documented as of this encounter Goals Goal Patient Goal Type Associated Problems Recent Progress Patient-Stated? Author Reminders Care Plan OB Reminders No Open Scheduling, Background documented as of this encounter Visit Diagnoses Not on filedocumented in this encounter Additional Health Concerns Active Problems Noted Date Diagnosed Date OB Reminders 10/19/2024 documented as of this encounter Care Teams Computer Systems Designer Relationship Specialty Start Date End Date Unallocated, Noms Provider, [address] [place] [address] PCP - General Family Medicine 10/17/23 Amalia Bruce, TONIA [address] [place] [address] PCP - Capo Wild 09/22/24 documented as of this encounter
--- OUTSIDE RECORDS SUMMARY | 2025-04-01 15:03 | XMS_ITS | Encounter Summary ---
Author Organization [facility] tem Address [facility]-[id number] [address] [place] [address] Care Team Providers Care Concrete Handler Name Role Phone Unavailable Primary Care Provider Unavailabl e Encounter Details Date Type Department Care Team (Late st Contact Info) Description 02/07/2025 Orders Only Maternal- Medicine at [facility] [address] [place] [phone] Ref Prov, [place] [address] Social History Tobacco Use Types Packs/Day Years [...] on file documented as of this encounter Procedures Procedure Name Priority Date/Time Associated Diagnosis Comments ULTRASOUND OFFICE Routine 02/07/2025 10:53 AM EDT ULTRASOUND OFFICE Routine 02/07/2025 10:52 AM EDT ULTRASOUND OFFICE Routine 02/07/2025 10:48 AM EDT UNLISTED GENETIC TEST Routine 02/07/2025 10:34 AM EDT UNLISTED GENETIC TEST Routine 02/07/2025 10:32 AM EDT documented in this encounter Results * Ultrasound - Office (02/07/2025 10:53 AM EDT) Anatomical Region Laterality Modality AMB Ultrasound us Not In System Ref Prov IMG US ORDERABLES Final R esult * Ultrasound - Office (02/07/2025 10:52 AM EDT) Anatomical Region Laterality Modality AMB Ultrasound us Not In System Ref Prov IMG US ORDERABLES Final R esult * Ultrasound - Office (02/07/2025 10:48 AM EDT) Anatomical Region Laterality Modality AMB Ultrasound us Not In System Ref Prov IMG US ORDERABLES Final R esult * Unlisted Genetic Test (02/07/2025 10:34 AM EDT) us Not In System Ref Prov LAB BLOOD ORDERABLES Madelaine l Result Performing Organization Address City/[facility] Co de Phone Number MANUALLY TRANSCRIBED RESULTS * Unlisted Genetic Test (02/07/2025 10:32 AM EDT) us Not In System Ref Prov LAB BLOOD ORDERABLES Madelaine l Result Performing Organization Address City/[facility] Co de Phone Number MANUALLY TRANSCRIBED RESULTS documented in this encounter Visit Diagnoses Not on filedocumented in this encounter
--- OUTSIDE RECORDS SUMMARY | 2025-04-01 15:03 | XMS_ITS | Encounter Summary ---
Author Organization [facility] Address [address] [place] [address] Care Team Providers Care Software Test Developer Name Role Phone Unallocated, Noms Provider Primary Care Provi chrissy Amalia Bruce MANAGER SPA Unavailable [phone] Encounter Details Date Type Department Care Team (Late st Contact Info) Description 03/28/2025 Telephone [facility] [address] [place] [address] [place] [address] Jes Garza MA Social History Tobacco Use Types Packs/Day Years [...] encounter Miscellaneous Notes * Telephone Encounter - Jes Garza MA - 03/28/2025 10:29 AM EDT [facility] requesting order for NST/BPP. Order sent to Central scheduling documented in this encounter Plan of Treatment Upcoming Encounters Date Type Department Care Team (Late st Contact Info) Description 04/10/2025 3:00 PM EDT [facility]ine [facility] [address] [facility] [place] [address] Rosceo Diaz DO [address] [place] [address] Scheduled Orders Name Type Priority Associated Diagnoses Orde r Schedule US biophysical profile w non stress test Imaging Routine H/O gastric sleeve Expected: 03/28/2025 (Approximate), Expires: 09/28/2025 documented as of this encounter Goals Goal Patient Goal Type Associated Problems Recent Progress Patient-Stated? Author Reminders Care Plan OB Reminders No Open Scheduling, Background documented as of this encounter Visit Diagnoses Diagnosis H/O gastric sleeve documented in this encounter Additional Health Concerns Active Problems Noted Date Diagnosed Date OB Reminders 10/19/2024 documented as of this encounter Care Teams Software Test Developer Relationship Specialty Start Date End Date Unallocated, Noms Provider, [address] [place] [address] PCP - General Family Medicine 10/17/23 Amalia Bruce, TONIA [address] [place] [address] PCP - Capo Wild 09/22/24 documented as of this encounter
--- OUTSIDE RECORDS SUMMARY | 2025-04-01 15:03 | XMS_ITS | Clinical Summary ---
Author Organization [facility] Address [address] [place] [id number] Care Team Providers Care Centrex Radio Operator Name Role Phone Dasha Lujan MD Primary Care Provider [phone] Fatimah Geiger APRN.[employer] Unavailable [phone] Allergies No known active allergies Medications Omeprazole Magnesium ([employer] AID, OMEPRAZOLE,) 20 mg cpDR 04/16/2022 Active Active [...] 0.6 oz p ure alcohol) occ. drink [employer] Utilities Answer Date Recorded In the past 12 months has [employer], gas, oil, or water [employer] threatened to shut off services in your [...] often do you attend chur ch or tenriism services? Never 07/19/2023 Do you belong to any clubs o r organizations such as spiritism groups, unions, fraternal or athletic groups, or [...] Answer Date Recorded PHQ-2 score 0 06/29/2024 [employer] [place] [employer] Occupat ional Health - Occupational Stress [...] place to sleep or slept in a residential (including now)? No 07/19/2023 Area Deprivation Index Answer Date Vern rded National Score (1-100), lower number is lower ri sk 90 07/19/2023 State Score (1-10), lower number is lower risk 8 07/19/2023 Data from: https://www.neighborhoodatlas.medicine.[facility].edu/. Last address used for calculation [address] 07/19/2023 Comments Unknown Sex and Gender Information [...] Screening 2010 Cervical Cancer Screening 01/15/2023 01/16/2020 Influenza Vaccine (#1) 2025 DTaP,Tdap,Td Vaccine (8 - Td or Tdap) 07/21/2033 07/21/2023, 05/03/2011, 04/30/1998, Additional history exists Hepatitis B Vaccine Completed 06/07/1994, 03/01/1994, 07/27/1993 HPV Vaccine Completed 03/29/2011, 02/2011, 09/28/2010 HIV Screening Discontinued Hepatitis C Screening Discontinued Insurance Care Teams Centrex Radio Operator Relationship Specialty [place] [address] [place], [place] [id number] PCP - General Internal Medicine 01/11/22 Fatimah Geiger APRN.[employer] [address] [place], [place] [id number] Audio Video Mechanic Internal Medicine 07/30/24
--- OUTSIDE RECORDS SUMMARY | 2025-04-01 15:03 | XMS_ITS | Encounter Summary ---
Author Organization [facility] Address [address] [place] [address] Care Team Providers Care Skoog Machine Operator Name Role Phone Unallocated, Noms Provider Primary Care Provi chrissy Amalia Bruce TONGUE STITCHER Unavailable [phone] Encounter Details Date Type Department Care Team (Late Contact Info) Description 10/29/2024 Abstract [facility] [address] [place] [id number] Roscoe Diaz DO [address] [place] [address] Social History Tobacco Use Types Packs/Day Years [...] 3:00 PM EDT Routine [facility] [address] [place] [id number] Roscoe Diaz DO [address] [place] [address] documented as of this encounter Goals Goal Patient Goal Type Associated Problems Recent Progress Patient-Stated? Author Reminders Care Plan OB Reminders No Open Scheduling, Background documented as of this encounter Visit Diagnoses Not on filedocumented in this encounter Additional Health Concerns Active Problems Noted Date Diagnosed Date OB Reminders 10/19/2024 documented as of this encounter Care Teams Skoog Machine Operator Relationship Specialty Start Date End Date Unallocated, [employer] Provider, [address] [place], [place] [id number] PCP - General Family Medicine 10/17/23 Amalia Bruce, TONIA [address] [place] [address] PCP - [employer] 09/22/24 documented as of this encounter
--- OUTSIDE RECORDS SUMMARY | 2025-04-01 15:03 | XMS_ITS | Clinical Summary ---
Author Organization [facility] Address [address] [place] [address] Care Team Providers Care Assembler Cards And Announcements Name Role Phone Unallocated, Noms Provider Primary Care Provi chrissy Amalia Bruce CAR RIDER Unavailable [phone] Allergies No known active allergies Medications omeprazole OTC (PriLOSEC OTC) 20 MG EC tablet Take 20 mg by mouth in the morning. Take before meals. Do not crush, chew, or split.. Active Vit-Fe Fumarate-FA ( 19) 29-1 MG chewable tabletIndication s:, unspecified gestational age ([facility]) Chew 1 each Daily 30 tablet 11 5 Active Alcohol Swabs (Alcohol Prep Pad) 70 % padsIndications: Gestational diabetes mellitus (GDM), antepartum, gestational diabetes method of control unspecified ([facility]),Elevat ed glucose tolerance test Apply 1 Pad topically Daily Use four times daily to check FSBS. 150 each 3 5 Active Blood Glucose Monitoring Suppl (D-Care Glucometer) w/Device kitIndications:G estational diabetes mellitus (GDM), antepartum, gestational diabetes method of control unspecified ([facility]),Elevat ed glucose tolerance test 1 kit Daily Use four times daily to check FSBS. In the morning prior to breakfast & 1 hour after each meal for a total of 4times daily. 1 kit 5 02/05/20 26 Active insulin glargine (Lantus SoloStar) 100 UNIT/ML pen Inject 10 Units under the skin at bedtime 5 Active aspirin 81 MG EC tablet Take 81 mg by mouth Daily Active Lancets Ultra Thin miscIndications: Gestational diabetes mellitus (GDM), antepartum, gestational diabetes method of control unspecified ([facility]),Elevat ed glucose tolerance test 1 each by In Vitro route Daily Use to check FSBS four times daily 150 each 3 5 03/06/20 25 Glucose Blood (Blood Glucose Test) stripIndications :Gestational diabetes mellitus (GDM), antepartum, gestational diabetes method of control unspecified ([facility]),Elevat ed glucose tolerance test 1 strip by In Vitro route Daily Use in the morning prior to breakfast, 1 hour after each meal for a total of 4times daily. 150 strip 3 5 03/06/20 25 Encounters Date Type Department Care Team Description 03/28/2025 [place] [address] Jes Garza MA 03/27/2025 2:00 PM [place] [address] Dimple Diaz DO Third trimester ([facility]); H/O gastric sleeve; Gestational diabetes mellitus (GDM), antepartum, gestational diabetes method of control unspecified ([facility]); 32 weeks gestation of ([facility]) 03/27/2025 [employer] [place] [address] Dimple Diaz DO 03/27/2025 Travel 03/13/2025 3:50 PM [place] [address] Rosy Barton PA 30 weeks gestation of ([facility]); Third trimester ([facility]); H/O gastric sleeve; Gestational diabetes mellitus (GDM), antepartum, gestational diabetes method of control unspecified ([facility]) 03/13/2025 Bamboo flowsheet [facility] [address] [place] [address] Rosy Batron PA 03/10/2025 Travel 02/27/2025 1:40 PM EDT Routine [facility] [place] [address] Dimple Diaz DO 28 weeks gestation of ([facility]); Third trimester ([facility]); H/O gastric sleeve; Gestational diabetes mellitus (GDM), antepartum, gestational diabetes method of control unspecified ([facility]) 02/27/2025 1:00 PM EDT Ancillary Procedure [facility] [place] [address] H/O gastric sleeve 02/26/2025 Travel 02/11/2025 11:30 AM EDT Routine [facility] [place] [address] Rosy Barton PA Second trimester ([facility]); 26 weeks gestation of ([facility]); H/O gastric sleeve 02/11/2025 Travel 02/06/2025 Abstract [facility] [place] [address] Dimple Diaz DO 02/04/2025 Telephone [facility] [place] [address] Monika Mesa LPN 02/04/2025 Results Follow-Up [facility] [place] [address] Monika Mesa LPN 02/01/2025 Telephone [facility] [place] [address] Ana Costello MA 02/01/2025 Clinisync Result Encounter NOMS External Department Unsolicited Dimple Diaz DO 01/30/2025 1:00 PM EDT Ancillary [place] [address] Encounter for follow-up ultrasound of anatomy ([facility]) 01/27/2025 Travel 01/10/2025 10:10 AM [place] [address] Dimple Diaz, DO 21 weeks gestation of ([facility]); Second trimester ([facility]); Diabetes mellitus screening 01/10/2025 [place]amboo [place] [address] Dimple Diaz, 01/09/2025 [place] [address] Dimple Diaz, DO 01/07/2025 [place] [address] Jes Garza MA 01/03/2025 Travel 01/02/2025 Clinisync Result Encounter NOMS External Department Unsolicited Dimple Diaz, 01/02/2025 Clinisync Result Encounter NOMS External Department Unsolicited Dimple Diaz, DO 12/31/2024 Clinisync Result Encounter NOM[facility] External Department Unsolicited Dimple Diaz, DO from Last 3 Months Family History Medical [...] Pressure 116/72 03/27/2025 2:01 PM EDT Pulse 88 08/02/2024 3:58 PM EST Temperature 36 C (96.8 F) 08/02/2024 3:58 PM EST Respiratory Rate 12 07/25/2024 2:19 PM EST Oxygen Saturation 98% 08/02/2024 3:58 PM EST Inhaled Oxygen Concentration - - Weight 92.9 kg (204 lb 12.8 oz) 03/27/2025 2:01 PM EDT Height 160 cm (5' 3 ) 07/25/2024 2:19 PM EST Body Mass Index 36.28 07/25/2024 2:19 PM EST Plan of Treatment Upcoming Encounters Date Type Department Care Team (Late st Contact Info) Description 04/10/2025 3:00 PM EDT Routine [facility] [address] [address] Dimple Diaz DO [address] [place], [place] [id number] Health Maintenance Due Date Last Done Comments HPV/Cotest 2022 Influenza Vaccine (#1) 2025 Cervical Cancer Screening 12/11/2027 Pap Smear 12/11/2027 12/10/2024 Goals Goal Patient Goal Type Associated Problems Recent Progress Patient-Stated? Author Reminders Care Plan OB Reminders No Open Scheduling, Background Procedures Procedure Name Priority Date/Time Associated Diagnosis Comments POCT URINALYSIS DIPSTICK Routine 03/27/2025 2:49 PM EDT Third trimester ([facility]) H/O gastric sleeve Gestational diabetes mellitus (GDM), antepartum, gestational diabetes method of control unspecified ([facility]) 32 weeks gestation of ([facility]) POCT URINALYSIS DIPSTICK Routine 03/13/2025 3:46 PM EDT 30 weeks gestation of ([facility]) Third trimester ([facility]) POCT URINALYSIS DIPSTICK Routine 02/27/2025 2:04 PM EDT 28 weeks gestation of ([facility]) Third trimester ([facility]) US OB FOLLOW UP TRANSABDOMINAL APPROACH Routine 02/27/2025 1:40 PM EDT H/O gastric sleeve POCT URINALYSIS DIPSTICK Routine 02/11/2025 11:50 AM EDT Second trimester ([facility]) GLUCOSE 1 HOUR Routine 02/01/2025 9:28 AM EDT ALL CBC WITH AUTO DIFF Routine 9:28 AM EDT US OB LIMITED 1+ FETUSES Routine 01/30/2025 1:20 PM EDT Encounter for follow-up ultrasound of anatomy ([facility]) POCT URINALYSIS DIPSTICK Routine 01/10/2025 10:40 AM EDT 21 weeks gestation of ([facility]) Second trimester ([facility]) US OB ANATOMY 01/02/2025 10:47 PM EDT US OB CERVICAL LENGTH 01/02/2025 10:47 PM EDT AFP, SERUM, OPEN SPINA BIFIDA Routine 12/31/2024 3:43 PM EDT BOX TEST Routine 12/31/2024 3:43 PM EDT PAP SMEAR Routine 12/10/2024 12:00 AM EDT from Last 3 Months or Most Recently Relevant to Health Maintenance Results * (ABNORMAL) POCT urinalysis dipstick manually resulted (03/27/2025 2:49 PM EDT) Only the most recent of5 resultswithin the time period is included. Color, [...] - Positive Urine 03/27/2025 2:49 PM EDT [facility] POINT OF CARE TEST ENTER/EDIT OR DERABLES Final Result * US OB follow up transabdominal approach (02/27/2025 1:40 PM EDT) Anatomical Region Laterality Modality Body Ultrasound 02/28/2025 2:12 PM EDT Impressions 02/28/2025 3:05 PM EDT 1. Single, live intrauterine , current sonographic age of 30 weeks and 2 days, with an estimated date of delivery of May 06, 2025. 2. Estimated weight 1601 grams (3 pounds, 8 ounces). Percentile >97% * Estimated Weight (g) by Percentile is based upon an accurate estimated age based on last menstrual period. TRANSCRIBED BY: ELECTRONICALLY SIGNED BY: Cy Douglas MD Narrative 02/28/2025 3:05 PM EDT FINDINGS: A single, live intrauterine is present with normal cardiac rate of 132 beats per minute. Normal activity and amniotic fluid volume. Amniotic fluid index is 15 cm. Morphology is grossly normal. The cervix was not measured. The current sonographic age is 30 weeks and 2 days, based on the following measurements: BPD 7.3 cm (29 weeks, 3 days) Head Circumference 28.2 cm (30 weeks, 6 days) Abdominal Circumference 27.1 cm (31 weeks, 1 day) Femur Length 5.7 cm (29 weeks, 6 days) Presentation Cephalic Weight (g) by Percentile >97% * These measurements result in an estimated date of delivery of May 06, 2025. The current estimated weight is 1601 grams +/-240 grams (3 pounds, 8 ounces). Procedure Note Cy Douglas MD - 02/28/2025 FINDINGS: A single, live intrauterine is present with normal cardiacrate of 132 beats per minute. Normal activity and amniotic fluidvolume. Amniotic fluid index is 15 cm. Morphology is grossly normal. Thecervix was not measured. The current sonographic age is 30 weeks and 2days, based on the following measurements: BPD 7.3 cm (29 weeks, 3 days) Head Circumference 28.2 cm (30 weeks, 6 days) Abdominal Circumference 27.1 cm (31 weeks, 1 day) Femur Length 5.7 cm (29 weeks, 6 days) Presentation Cephalic Weight (g) by Percentile >97% * These measurements result in an estimated date of delivery of 2024. The current estimated weight is 1601 grams +/-240 grams(3 pounds, 8 ounces). IMPRESSION: 1. Single, live intrauterine , current sonographic age of 30weeks and 2 days, with an estimated date of delivery of April. 2. Estimated weight 1601 grams (3 pounds, 8 ounces). Percentile>97% * Estimated Weight (g) by Percentile is based upon an accurateestimated age based on last menstrual period. TRANSCRIBED BY: ELECTRONICALLY SIGNED BY: Cy Douglas MD us Rosy [place] IMG OB US PROCEDURES Final Resul t * (ABNORMAL) GLUCOSE 1 HOUR (02/01/2025 9:28 AM EDT) GLUCOSE 1 HOUR 198(H) <130 mg/dL TBH 02/01/2025 9:28 AM EDT 02/01/2025 9:30 AM EDT Narrative CECILIA - 02/01/2025 11:36 AM EDT us Dimple Diaz DO LAB BLOOD ORDERABLES Final Resul t [facility] * (ABNORMAL) ALL CBC WITH AUTO DIFF (02/01/2025 9:28 AM EDT) TBH WBC 9.4 4.0 - 11.0 10 3/uL TBH TBH RBC 3.39(L) 4.20 - 5.40 10 6/uL TBH TBH HGB 11.5(L) 12.0 - 16.0 g/dL TBH TBH HCT 33.9(L) 36.0 - 48.0 % TBH TBH MCV 100.0(H) 81.0 - 99.0 fL TBH TBH MCH 33.9 26.7 - 34.0 pg TBH TBH MCHC 33.9 29.9 - 35.2 g/dL TBH TBH RDW 13.6 11.0 - 15.0 % TBH TBH PLT 172 150 - 450 10 3/uL TBH TBH MPV 11.0 9.5 - 13.5 fL TBH NEUTROPHILS PERCENT AUTO 81.9(H) 43.0 - 75.0 % TBH LYMPHOCYTES PERCENT AUTO 12.5(L) 20.5 - 60.0 % TBH MONOCYTES PERCENT AUTO 3.9 1.7 - 12.0 % TBH TBH EO % 1.1 0.9 - 7.0 % TBH BASOPHILS PERCENT AUTO 0.2 0.2 - 2.0 % TBH IMMATURE GRANULOCYTES PCT AUTO 0.4 0.0 - 0.5 % TBH NEUTROPHILS ABSOLUTE AUTO 7.7(H) 1.4 - 6.5 10 3/uL TBH LYMPHOCYTES ABSOLUTE AUTO 1.2 1.2 - 3.8 10 3/uL TBH MONOCYTES ABSOLUTE AUTO 0.4 0.3 - 0.8 10 3/uL TBH TBH EO # 0.1 0.0 - 0.7 10 3/uL TBH BASOPHILS ABSOLUTE AUTO 0.0 0.0 - 0.1 10 3/uL TBH IMMATURE GRANULOCYTES ABS AUTO 0.04(H) 0.00 - 0.03 10 3/uL TBH 02/01/2025 9:28 AM EDT 02/01/2025 9:30 AM EDT Narrative CECILIA - 02/01/2025 9:37 AM EDT us Dimple Diaz DO [facility] Final Result [facility] * US OB limited 1+ fetuses (01/30/2025 1:20 PM EDT) Anatomical Region Laterality Modality Body Ultrasound 02/01/2025 10:2 3 AM EDT Narrative 02/01/2025 10:23 AM EDT EXAM: US OB LIMITED 1+ FETUSES HISTORY: Follow up anatomy. COMPARISON: Ob ultrasound 01/02/2025. TECHNIQUE: Two-dimensional transabdominal grayscale ultrasound imaging of the pelvis was performed. FINDINGS: Gestation: Single Presentation: Variable Cardiac Activity: 148 beats per minute Placental Location: Anterior with no sonographic abnormalities identified. Amniotic Fluid: Appears adequate ANATOMY LVOT: Unremarkable RVOT: Unremarkable IMPRESSION: 1. Single, live intrauterine gestation 24 weeks, 3 days by LMP. VALENTIN by LMP is 05/19/2025. 2. Unremarkable follow up ultrasound of the outflow tracts. Interpreted by: Electronically signed by BRITTANY SEBASTIAN II, MD, PHD at 01-Feb-2025 10:22:21 AM [facility] Procedure Note Brittany Sebastian MD - 02/01/2025 EXAM: US OB LIMITED 1+ FETUSES HISTORY: Follow up anatomy. COMPARISON: Ob ultrasound 01/02/2025. TECHNIQUE: Two-dimensional transabdominal grayscale ultrasound imaging ofthe pelvis was performed. FINDINGS: Gestation: Single Presentation: Variable Cardiac Activity: 148 beats per minute Placental Location: Anterior with no sonographic abnormalitiesidentified. Amniotic Fluid: Appears adequate ANATOMY LVOT: Unremarkable RVOT: Unremarkable IMPRESSION: 1. Single, live intrauterine gestation 24 weeks, 3 days by LMP. VALENTIN byLMP is 05/19/2025. 2. Unremarkable follow up ultrasound of the outflow tracts. Interpreted by: Electronically signed by BRITTANY SEBASTIAN II, MD, PHD 10:22:21 AM [facility] us Dimple Diaz DO IMG OB US PROCEDURES Final Resul t * US OB CERVICAL LENGTH (01/02/2025 10:47 PM EDT) Anatomical Region Laterality Modality Other 01/02/2025 10:4 7 PM EDT Narrative 01/02/2025 10:50 [place] [address] Ultrasound Report Signed Patient: TRUDI ZAMARRIPA MR#: [id number] : 1990 Acct:[id number] Age/Sex: 34 / F ADM Date: 01/02/25 Loc: US Attending Dr: Dimple Diaz D.O. Ordering Physician: Dimple Diaz D.O. Date of Service: 01/02/25 Procedure(s): US OB cervical length Accession Number(s): [id number] cc: Dimple Diaz D.O.; Physician,Non-Staff M.DCharisse [place] [address] Patient Name: TRUDI ZAMARRIPA MRN: [facility]:[id number] date: 1990 Sex: F Assigned Patient Location: Current Patient Location: Accession/Order Number: [id number] Exam Date: 01/02/2025 22:40 Report Date: 01/02/2025 [...] length 4.5 cm. Impression dictated by: Suraj Birscoe M.D. 01/02/2025 10:47 PM Dictation Location: [facility] [employer] Electronically authenticated by: [id number] Y Date: 01/02/2025 22:47 Dictated By: Suraj Briscoe D.O. Signed By: 01/02/252249 DD/ 46 TD/TT: Sustainable Design Coordinator: Procedure Note Radiology, Radiologist, MD - 01/02/2025 [place] [address] Ultrasound Report Signed Patient: TRUDI ZAMARRIPAMR#: [id number] : 1990Acct:[id number] Age/Sex: 34 / FADM Date: 01/02/25 Loc: US Attending Dr: Dimple Diaz D.O. Ordering Physician: Dimple Diaz D.O. Date of Service: 01/02/25 Procedure(s): US OB cervical length Accession Number(s): [id number] cc: Dimple Diaz D.O.; Physician,Non-Staff Shimon The [address] [address] Patient Name: TRUDI ZAMARRIPA MRN: [facility]:[id number] date: 1990 Sex: F Assigned Patient Location: Current Patient Location: US Accession/Order Number: [id number] Exam Date: 01/02/2025 22:40 Report Date: 01/02/2025 [...] Briscoe M.D. 01/02/2025 10:47 PM Dictation Location: [facility] Electronically authenticated by: [id number] Y Date: 2:47 Dictated By: Suraj Briscoe D.O. Signed By:01/02/25 5080 DD/ 46 TD/TT: Sustainable Design Coordinator: us Dimple Diaz DO [facility] Final Result * US OB ANATOMY (01/02/2025 10:47 PM EDT) Anatomical Region Laterality Modality Other 01/02/2025 10:4 7 PM EDT Narrative 01/02/2025 10:50 PM EDT [address] [address] Ultrasound Report Signed Patient: TRUDI ZAMARRIPA MR#: [id number] : 1990 Acct:[id number] Age/Sex: 34 / F ADM Date: 01/02/25 Loc: US Attending Dr: Dimple Diaz D.O. Ordering Physician: Dimple Diaz D.O. Date of Service: 01/02/25 Procedure(s): US OB anatomy Accession Number(s): [id number] cc: Dimple Diaz D.O.; Physician,Non-Staff Shimon [address] [address] Patient Name: TRUDI ZAMARRIPA MRN: [facility]:[id number] date: 1990 Sex: F Assigned Patient Location: Current Patient Location: US Accession/Order Number: [id number] Exam Date: 01/02/2025 22:40 Report Date: 01/02/2025 [...] Briscoe M.D. 01/02/2025 10:47 PM Dictation Location: [facility] Electronically authenticated by: [id number] Y Date: 01/02/2025 22:47 Dictated By: Suraj Briscoe D.O. Signed By: 01/02/252249 DD/ 46 TD/TT: Sustainable Design Coordinator: Procedure Note Radiology, Radiologist, MD - 01/02/2025 [place] [address] Ultrasound Report Signed Patient: TRUDI ZAMARRIPAMR#: [id number] : 1990Acct:[id number] Age/Sex: 34 / FADM Date: 01/02/25 Loc: US Attending Dr: Dimple Diaz D.O. Ordering Physician: Dimple Diaz D.O. Date of Service: 01/02/25 Procedure(s): US OB anatomy Accession Number(s): [id number] cc: Dimple Diaz D.O.; Physician,Non-Staff Shimon The [address] [address] Patient Name: TRUDI ZAMARRIPA MRN: [id number] date: 1990 Sex: F Assigned Patient Location: US Current Patient Location: US Accession/Order Number: [id number] Exam Date: 01/02/2025 22:40 Report Date: 01/02/2025 [...] Briscoe M.D. 01/02/2025 10:47 PM Dictation Location: [employer] Electronically authenticated by: [id number] Y Date: 2:47 Dictated By: Suraj Briscoe D.O. Signed By:01/02/25 2250 DD/ 2247 TD/TT: Sustainable Design Coordinator: Dimple Diaz DO [facility] Final Result * BOX TEST (12/31/2024 3:43 PM EDT) BOX TEST SENT OUT [facility] BOX1 [facility] BOX2 12/31/2024 [facility] 12/31/2024 3:43 PM EDT 12/31/2024 3:47 PM EDT Narrative [facility]IA - 12/31/2024 5:08 PM EDT [facility] Dimple Joe DO LAB BLOOD ORDERABLES Final Resul t [facility] * AFP, SERUM, OPEN SPINA BIFIDA (12/31/2024 3:43 PM EDT) RESULTS Report . [facility] TEST RESULTS: *Screen Negative* . TB GEST. AGE ON COLLECTION DATE 20.1 . weeks [facility] GESTAT. AGE BASED ON LMP . [facility] Comment: Recalculations are not recommended when gestational dating by LMP and ultrasound are within 10 days. [age]IN [age] [facility] RACE . [facility] WEIGHT 190 . lbs [facility] INSULIN DEP DIABETES No . [facility] MULTIPLE GESTATION No . [facility] AFP VALUE 106.2 . ng/mL [facility] AFP MOM 2.15 . [facility] OSBR RISK 1 IN 581 . [facility] INTERPRETATION Comment . [facility] Comment: Interpretation: Screen Negative This result is [...] Customer Services to discuss available options. The [employer] recommends amniocentesis be offered to women age 35 and older. COMMENT: Comment . [facility] Comment: Brie Arora, Ph.D., [facility] Director References: Available Upon Request. Multiples Of Median Cutoffs For AFP Elevations Jacobo 2.5 Black 2.8 IDD 2.0 Twins 4.5 Abbreviation Definitions IDD - Insulin Dep Diabetes OSBR - Open Spina Bifida Risk For further inquiries contact [facility] at [phone]. This test was developed and its performance characteristics determined by [employer]. It has not been cleared or approved by the Food and Drug Administration. Performed at: [facility] [address] [place], [place] [id number] Property Management Supervisor: Lian Hairston [facility], Phone: [phone] 12/31/2024 3:43 PM EDT 12/31/2024 3:47 PM EDT Narrative [facility] - 01/03/2025 1:07 AM EDT N N [id number] [id number] 1 17 N 1 Y 190 N N N N N White/ us Rosy Barton PA LAB BLOOD ORDERABLES Final Resul t [facility] * Pap Smear (12/10/2024 12:00 AM EDT) Swab Cervical swab / Unknown us Joe Kumar [facility] Ob LAB CYTOLOGY ORDERABLES Final Result EXTERNAL LAB from Last 3 Months or Most Recently Relevant to Health Maintenance Additional Health Concerns Active Problems Noted Date Diagnosed Date OB Reminders 10/19/2024 Insurance [facility] Care Teams Assembler Cards And Announcements Relationship Specialty Start Date End Date Unallocated, [facility] [place], [address] [place], [place] [id number] PCP - General Family Medicine 10/17/23 Amalia Bruce NP [address] [place] [address] PCP - [place] [employer] 09/22/24
--- OUTSIDE RECORDS SUMMARY | 2025-04-01 15:03 | XMS_ITS | Encounter Summary ---
Author Organization [facility] tem Address [id number] [address] [place] [address] Care Team Providers Care Province Archivist Name Role Phone Unavailable Primary Care Provider Unavailabl e Encounter Details Date Type Department Care Team (Late st Contact Info) Description 04/01/2025 Telephone Maternal- Medicine at [facility] [address] [facility] [place] [id number] Blanquita Toney, KARISSA Social History Tobacco Use [...] Encounter - Blanquita Toney RN - 04/01/2025 10:00 AM EDT Left message to remind patient of video visit today at 10 AM. Call back number given to reschedule if unable to keep appointment. documented in this encounter Plan of Treatment Not on file documented as of this encounter Visit Diagnoses Not on filedocumented in this encounter
--- OUTSIDE RECORDS SUMMARY | 2025-04-01 15:03 | XMS_ITS | Encounter Summary ---
Author Organization [facility] Address [address] [place] [address] Care Team Providers Care Drosophere Operator Name Role Phone Dasha Lujan MD Primary Care Provider Sonia Dickerson DISC RULER OPERATOR.ELEMENTARY CLASSROOM TEACHER Unavailable Fatimah Geiger DISC RULER OPERATOR.ELEMENTARY CLASSROOM TEACHER Unavailable Ruth Richardson DISC RULER OPERATOR.ELEMENTARY CLASSROOM TEACHER Unavailable Berenice Rivas APRN.ELEMENTARY CLASSROOM TEACHER Unavailable Zarina Pope PA-C Unavailable Source Comments In the event this information is protected by the Federal Confidentiality of Alcohol and Drug AbusePatient Records regulations: The Federal rules restrict any use of the information to criminally investigate or prosecute any alcohol or drug abuse patient.[facility] Encounter Details Date Type Department Care Team (Late st Contact Info) Description 06/18/2024 Patient Msg Internal Medicine [address] [place] [address] Berenice Rivas APRN.ELEMENTARY CLASSROOM TEACHER [address] [place] [address] Appointment Request Social History Tobacco Use Types Packs/Day Years Used Date Smoking Tobacco: Never Smokeless Tobacco: Never Alcohol Use Standard Drinks/Week Comments Yes 1.3 (1 standard drink = 0.6 oz p ure alcohol) occ. drink [facility] Utilities Answer Date Recorded In the past 12 months has th e electric, gas, oil, or water [employer] threatened to shut off services in your [...] often do you attend chur ch or confucianist services? Never 07/19/2023 Do you belong to any clubs o r organizations such as advent groups, unions, fraternal or athletic groups, or [...] Recorded PHQ-2 score 0 07/22/2023 [facility] [place] of Occupat ional Health - Occupational Stress [...] place to sleep or slept in a longterm (including now)? No 07/19/2023 Area Deprivation Index [...] on filedocumented in this encounter Care Teams Drosophere Operator Relationship Specialty [place] [address] [place] [address] PCP - General Internal Medicine 01/11/22 Sonia Dickerson, DISC RULER OPERATOR.ELEMENTARY CLASSROOM TEACHER [address] [place] [address] Cab Worker Internal Medicine 07/30/24 08/29/24 Fatimah Geiger, DISC RULER OPERATOR.ELEMENTARY CLASSROOM TEACHER [address] [place] [address] Cab Worker Internal Medicine 07/30/24 Ruth Richardson, DISC RULER OPERATOR.ELEMENTARY CLASSROOM TEACHER [address] [place] [address] [facility] Internal Medicine 07/30/24 08/29/24 Berenice Rivas, DISC RULER OPERATOR.ELEMENTARY CLASSROOM TEACHER [address] [place] [address] [facility] Internal Medicine 07/30/24 08/29/24 Zarina Pope PA-C [address] [place] [address] Cab Worker Internal Medicine 07/30/24 08/29/24 documented as of this encounter
--- OUTSIDE RECORDS SUMMARY | 2025-04-01 15:03 | XMS_ITS | Encounter Summary ---
Author Organization [facility] Address [address] [place] [address] Care Team Providers Care Material Preparation Worker Name Role Phone Unallocated, Noms Provider Primary Care Provi chrissy Amalia Bruce DAIRY NUTRITIONIST Unavailable [phone] Encounter Details Date Type Department Care Team (Late Contact Info) Description 12/26/2024 Orders Only [facility] [address] [place] [address] Iman Saldana LPN [address] [place] [id number] Social History Tobacco Use Types Packs/Day Years [...] Description 04/10/2025 3:00 PM EDT Routine [facility] [address] [facility] [place] [phone] Roscoe Diaz DO [address] [facility] [place] [address] documented as of this encounter Goals Goal Patient Goal Type Associated Problems Recent Progress Patient-Stated? Author Reminders Care Plan OB Reminders No Open Scheduling, Background documented as of this encounter Procedures Procedure Name Priority Date/Time Associated Diagnosis Comments PAP SMEAR Routine 12/10/2024 12:00 AM EDT documented in this encounter Results * Pap Smear (12/10/2024 12:00 AM EDT) Swab Cervical swab / Unknown Joe Nurse Noms Bcp Ob LAB CYTOLOGY ORDERABLES Final Result EXTERNAL LAB documented in this encounter Visit Diagnoses Not on filedocumented in this encounter Additional Health Concerns Active Problems Noted Date Diagnosed Date OB Reminders 10/19/2024 documented as of this encounter Care Teams Material Preparation Worker Relationship Specialty Start Date End Date Unallocated, Noms Provider, [address] [place] [address] PCP - General Family Medicine 10/17/23 Amalia Bruce, TONIA [address] [place] [address] PCP - Capo Wild 09/22/24 documented as of this encounter
== END 2025-04-01 15:52 | disposition home or self-care (01) ==
LOC: US 15:00 → FBC 15:29
PROVIDERS: Visit Provider Physician Assistant
DX: O99.843 Bariatric surgery status complicating pregnancy, third trimester (principal); Z90.3 Acquired absence of stomach [part of]; Z3A.33 33 weeks gestation of pregnancy
CPT/HCPCS: 76818

== ENCOUNTER 2025-04-04 12:51 | Outpatient (OUT) | payer BC, SELFPAY ==
--- OUTSIDE RECORDS SUMMARY | 2025-03-27 14:00 | XMS_ITS | Encounter Summary ---
Author Organization [facility] Address [address] [place] [address] Care Team Providers Care Wall Washer Name Role Phone Unallocated, Noms Provider Primary Care Provi chrissy Amalia Bruce OPERATIONS MANAGEMENT TRAINEE Unavailable [phone] Encounter Details Date Type Department Care Team (Late st Contact Info) Description 03/27/2025 2:00 PM EDT Routine [facility] O[facility]YN [address] [place] [address] Roscoe Diaz DO [address] [place], [facility] Third trimester ([facility]); H/O gastric sleeve; Gestational diabetes mellitus (GDM), antepartum, gestational diabetes method of control unspecified ([facility]); 32 weeks gestation of ([facility]) Social History Tobacco Use Types Packs/Day [...] 2:19 PM EST documented in this encounter Progress Notes * Adelaida Dugan, TONIA - 03/27/2025 2:00 PM EDT Reason for Appointment: Patient ID: Caryl Garcia is a 34 y.o. female who presents for No chief complaint on file. Patient presents today for Return OB appointment. MEDICATIONS Current Outpatient Medications Medication Instructions Alcohol Swabs (Alcohol Prep Pad) 70 % pads 1 Pad, Topical, Daily, Use four times daily to check FSBS. aspirin 81 mg, Daily Blood Glucose Monitoring Suppl ([employer] Glucometer) w/Device kit 1 kit, Does not apply, Daily, Use four times daily to check FSBS. In the morning prior to breakfast & 1 hour after each meal for a total of 4times daily. Lantus SoloStar 10 Units, Nightly omeprazole OTC (PRILOSEC OTC) 20 mg, Daily [...] nursing note reviewed. Exam conducted with a cable placer present. Vitals: Estimated body mass index is 36.28 kg/m?? as calculated from the following: Height as of 07/25/24: 5' 3 . Weight as of this encounter: 204 lb 12.8 oz. BP: 116/72 Patient's last menstrual period was 08/12/2024. ASSESSMENT & PLAN ICD-10-CM 1. Third trimester ([facility]) Z34.93 POCT urinalysis dipstick manually resulted 2. H/O gastric sleeve Z90.3 POCT urinalysis dipstick manually resulted 3. Gestational diabetes mellitus (GDM), antepartum, gestational diabetes method of control unspecified ([facility]) O24.419 POCT urinalysis dipstick manually resulted 4. 32 weeks gestation of ([facility]) Z3A.32 POCT urinalysis dipstick manually resulted Return OB: Patient presents today for a routine obstetrics appointment. Patient is currently 32w3d . Patient states she is doing well but has complaints of being tired due to current . Patient has verbalizes frequent movement. labor precautions was discussed/given and patient was instructed to perform kick counts three times a day. Orders Placed This Encounter Procedures POCT urinalysis dipstick manually resulted Follow Up: Patient is to return to office in 2 week for routine OB appointment. Patient continues to send FSBSto MFM and doing well and MFM continues to manage her Lantus dosing. She will begin NST/ BPP this week. Documented by Adelaida Dugan NP on behalf of: Roscoe Diaz DO documented in this encounter Plan of Treatment Upcoming Encounters Date Type Department Care Team (Late st Contact Info) Description 04/10/2025 3:00 PM EDT Routine [facility] [address] [place] [phone] Roscoe Diaz DO [address] [place] [address] documented as of this encounter Goals Goal Patient Goal Type Associated Problems Recent Progress Patient-Stated? Author Reminders Care Plan OB Reminders No Open Scheduling, Background documented as of this encounter Procedures Procedure Name Priority Date/Time Associated Diagnosis Comments POCT URINALYSIS DIPSTICK Routine 03/27/2025 2:49 PM EDT Third trimester ([facility]) H/O gastric sleeve Gestational diabetes mellitus (GDM), antepartum, gestational diabetes method of control unspecified ([facility]) 32 weeks gestation of ([facility]) documented in this encounter Results * [...] - 9 Protein, UA Few Negative - 2000(20) ++++ mg/dL Urobilinogen, UA 0.2 0.2 - 12 mg/dL Leukocytes, UA Few Negative - 500+++ Mari/mcL Nitrite, UA Negative Negative - Positive Urine 03/27/2025 2:49 PM EDT Roscoe Joe DO POINT OF CARE TEST ENTER/EDIT OR DERABLES Final Result documented in this encounter Visit Diagnoses Diagnosis Third trimester ([facility]) state, incidental H/O gastric sleeve Gestational diabetes mellitus (GDM), antepartum, gestational diabetes method of control unspecified ([facility]) 32 weeks gestation of ([facility]) documented in this encounter Additional Health Concerns Active Problems Noted Date Diagnosed Date OB Reminders 10/19/2024 documented as of this encounter Care Teams Wall Washer Relationship Specialty Start Date End Date Unallocated, Noms Provider, [address] [place] [address] PCP - General Family Medicine 10/17/23 Amalia Bruce, OPERATIONS MANAGEMENT TRAINEE [address] [place] [address] PCP - [employer] 09/22/24 documented as of this encounter
--- OUTSIDE RECORDS SUMMARY | 2025-04-01 10:00 | XMS_ITS | Encounter Summary ---
Author Organization [facility] tem Address [id number] [address] [place] [address] Care Team Providers Care Painting Contractor Name Role Phone Unavailable Primary Care Provider Milan e Encounter Details Date Type Department Care Team (Late st Contact Info) Description 04/01/2025 10:00 AM EDT Telemedicine Maternal- Medicine at [facility] [address] [place] [address] Daisha Morel PA-C [address] [address] Gestational diabetes requiring insulin (Primary Dx) Social [...] insulinnightly, Disp: 100 each, Rfl: 2 25-IRON [id number] ORAL, Take 1 tablet by mouth in [...] Delivery recommendations : - Recommend delivery at 20r0k-22s4p - reviewed with pateint - Discuss delivery [...] by e-mail to: or by fax to: [phone] Daisha Morel PA-C Maternal- Medicine Office phone: [phone] Daisha Morel PA-C 04/01/25 1331 documented in this encounter Plan of Treatment Not on file documented as of this encounter Visit Diagnoses Diagnosis Gestational diabetes requiring insulin- Primary Abnormal maternal glucose tolerance, complicating , childbirth, or the puerperium, unspecified as to episode of care documented in this encounter
--- OUTSIDE RECORDS SUMMARY | 2025-04-04 12:53 | XMS_ITS | Encounter Summary ---
Author Organization [facility] Address [address] [place] [address] Care Team Providers Care Hydraulic Jack Operator Name Role Phone Unallocated, Noms Provider Primary Care Provi chrissy Amalia Bruce MERCHANDISER Unavailable [phone] Encounter Details Date Type Department Care Team (Late Contact Info) Description 12/26/2024 Orders Only [facility]ARA [facility] [address] [place] [address] Iman Saldana LPN [address] [place] [id number] Social History Tobacco Use Types Packs/Day Years [...] 3:00 PM EDT Routine [facility]ace [facility] [address] [facility] [place] [phone] Roscoe Diaz DO [address] [facility] [place] [address] documented as of this encounter Goals Goal [...] documented as of this encounter Care Teams Hydraulic Jack Operator Relationship Specialty Start Date End Date Unallocated, Noms Provider, [address] [address] PCP - General Family Medicine 10/17/23 Amalia Bruce, TONIA [address] [place] [address] PCP - Capo Wild 09/22/24 documented as of this encounter
--- OUTSIDE RECORDS SUMMARY | 2025-04-04 12:53 | XMS_ITS | Encounter Summary ---
Author Organization [facility] Address [address] [place] [address] Care Team Providers Care Ship Runner Name Role Phone Unallocated, Noms Provider Primary Care Provi chrissy Amalia Bruce DIRECTOR OF PERSONNEL Unavailable [phone] Encounter Details Date Type Department Care Team (Late st Contact Info) Description 03/28/2025 Telephone [facility] [address] [place] [address] [place] [address] Jes Garza MA Social History Tobacco Use [...] Garza MA - 03/28/2025 10:29 AM EDT [facility] requesting order for NST/BPP. Order sent to Central scheduling documented in this encounter Plan of Treatment Upcoming Encounters Date Type Department Care Team (Late st Contact Info) Description 04/10/2025 3:00 PM EDT Routine [facility] [place] OBGYN [address] [place] [address] Roscoe Diaz DO [address] [place] [address] Scheduled Orders Name Type Priority Associated Diagnoses [...] documented as of this encounter Care Teams Ship Runner Relationship Specialty Start Date End Date Unallocated, Noms Provider, [address] [place] [address] PCP - General Family Medicine 10/17/23 Amalia Bruce, TONIA [address] [place] [address] PCP - Capo Wild 09/22/24 documented as of this encounter
--- OUTSIDE RECORDS SUMMARY | 2025-04-04 12:53 | XMS_ITS | Encounter Summary ---
Author Organization [facility] Address [address] [place] [address] Care Team Providers Care Selling Underwriter Name Role Phone Unallocated, Noms Provider Primary Care Provi chrissy Amalia Bruce DELINQUENCY PREVENTION OFFICER Unavailable [phone] Encounter Details Date Type Department Care Team (Late Contact Info) Description 10/29/2024 Abstract [facility] [address] [facility] [place] [address] Roscoe Diaz DO [address] [facility] [place] [address] Social History Tobacco Use Types Packs/Day Years [...] 3:00 PM EDT Routine [facility]ARA CAAL [address] [facility] [place] [phone] Roscoe Diaz DO [address] [facility] [place] [address] documented as of this encounter Goals Goal Patient Goal Type Associated Problems Recent Progress Patient-Stated? Author Reminders Care Plan OB Reminders No Open Scheduling, Background documented as of this encounter Visit Diagnoses Not on filedocumented in this encounter Additional Health Concerns Active Problems Noted Date Diagnosed Date OB Reminders 10/19/2024 documented as of this encounter Care Teams Selling Underwriter Relationship Specialty Start Date End Date Unallocated, Nomgilmar Provider, [address] [place], [place] [address] PCP - General Family Medicine 10/17/23 Amalia Bruce, TONIA [address] [place] [address] PCP - Capo Commercial 09/22/24 documented as of this encounter
--- OUTSIDE RECORDS SUMMARY | 2025-04-04 12:53 | XMS_ITS | Encounter Summary ---
Author Organization [facility] Address [address] [place] [address] Care Team Providers Care Reservation Clerk Name Role Phone Unallocated, Noms Provider Primary Care Provi chrissy Amalia Bruce GOVERNMENT MINISTER Unavailable [phone] Reason for Visit * Reason Onset Date Comments Med Refill 10/23/2024 Encounter Details Date Type Department Care Team (Late Contact Info) Description 10/23/2024 Refill [facility] [address] [facility] [address] [place] [address] Unallocated, Noms Provider, [address] [place] [address] Social History Tobacco Use Types Packs/Day Years [...] PM EDT Routine [facility] [address] [place] [phone] Roscoe Diaz DO [address] [facility] [place] [address] documented as of this encounter Goals Goal Patient Goal Type Associated Problems Recent Progress Patient-Stated? Author Reminders Care Plan OB Reminders No Open Scheduling, Background documented as of this encounter Visit Diagnoses Not on filedocumented in this encounter Additional Health Concerns Active Problems Noted Date Diagnosed Date OB Reminders 10/19/2024 documented as of this encounter Care Teams Reservation Clerk Relationship Specialty Start Date End Date Unallocated, Noms Provider, [address] [place] [address] PCP - General Family Medicine 10/17/23 Amalia Bruce, TONIA [address] [place] [address] PCP - Capo Commercial 09/22/24 documented as of this encounter
--- OUTSIDE RECORDS SUMMARY | 2025-04-04 12:53 | XMS_ITS | Encounter Summary ---
Author Organization [facility] tem Address [id number] [address] [place] [address] Care Team Providers Care Pad Tufter Name Role Phone Unavailable Primary Care Provider Unavailabl e Encounter Details Date Type Department Care Team (Late st Contact Info) Description 02/07/2025 Orders Only Maternal- Medicine at [facility] [address] [place] [phone] Ref Prov, [place] [address] Social History Tobacco Use Types Packs/Day Years [...] ORDERABLES Madelaine l Result Performing Organization Address City/[facility] Co de Phone Number MANUALLY TRANSCRIBED RESULTS * Unlisted Genetic Test (02/07/2025 10:32 AM EDT) us Not In System Ref Prov LAB BLOOD ORDERABLES Madelaine l Result Performing Organization Address City/[facility] Co de Phone Number MANUALLY TRANSCRIBED RESULTS documented in this encounter Visit Diagnoses Not on filedocumented in this encounter
--- OUTSIDE RECORDS SUMMARY | 2025-04-04 12:53 | XMS_ITS | Encounter Summary ---
Author Organization [facility] Address [address] [place] [address] Care Team Providers Care Diamond Saw Operator Name Role Phone Unallocated, Noms Provider Primary Care Provi chrissy Amalia Bruce VENDING MACHINE REFILLER Unavailable [phone] Encounter Details Date Type Department Care Team [...] Routine [facility] [address] [place] [address] Roscoe Diaz DO [address] [place], [place] [phone] documented as of this encounter Goals Goal Patient Goal Type Associated Problems Recent Progress Patient-Stated? Author Reminders Care Plan OB Reminders No Open Scheduling, Background documented as of this encounter Visit Diagnoses Not on filedocumented in this encounter Additional Health Concerns Active Problems Noted Date Diagnosed Date OB Reminders 10/19/2024 documented as of this encounter Care Teams Diamond Saw Operator Relationship Specialty Start Date End Date Unallocated, Noms Provider, [address] [place] [address] PCP - General Family Medicine 10/17/23 Amalia Bruce, TONIA [address] [place] [address] PCP - Capo Wild 09/22/24 documented as of this encounter
--- OUTSIDE RECORDS SUMMARY | 2025-04-04 12:53 | XMS_ITS | Encounter Summary ---
Author Organization [facility] Address [address] [place] [address] Care Team Providers Care Employee Communications Specialist Name Role Phone Unallocated, Noms Provider Primary Care Provi chrissy Amalia Bruce REELING OPERATOR Unavailable [phone] Encounter Details Date Type Department Care Team (Late Contact Info) Description 04/01/2025 Clinisync Result Encounter N[facility] External Department Unsolicited Rosy Quiroz PA [address] [place] [address] Social History Tobacco Use Types Packs/Day Years [...] PM EDT Routine [facility] [address] [facility] [place] [address] Roscoe Diaz, DO [address] [facility] [address] [place] [phone] documented as of this encounter Goals Goal Patient Goal Type Associated Problems Recent Progress Patient-Stated? Author Reminders Care Plan OB Reminders No Open Scheduling, Background documented as of this encounter Procedures Procedure Name Priority Date/Time Associated Diagnosis Comments US OB BPP W NON-STRESS 04/01/2025 3:29 PM EDT documented in this encounter Results * US OB BPP W NON-STRESS (04/01/2025 3:29 PM EDT) Anatomical Region Laterality Modality Other 04/01/2025 3:29 PM EDT Narrative 04/01/2025 3:31 PM EDT The [address] [address] Ultrasound Report Signed Patient: TRUDI ZAMARRIPA MR#: [id number] : 1990 Acct:[id number] Age/Sex: 34 / F ADM Date: 04/01/25 Loc: [facility] 250-[address]: Rosy Quiroz Ordering Physician: Rosy Quiroz Date of Service: 04/01/25 Procedure(s): US OB BPP w non-stress Accession Number(s): [id number] cc: Rosy Quiroz; Physician,Non-Staff M.D. The [address] [address] Patient Name: TRUDI ZAMARRIPA MRN: [id number] date: 1990 Sex: F Assigned Patient Location: US Current Patient Location: US Accession/Order Number: [id number] Exam Date: 04/01/2025 15:28 Report Date: 04/01/2025 15:29 At the request of: ROSY QUIROZ Procedure: US OB BPP w non-stress Biophysical profile. Reason for exam: History of gastric sleeve surgery COMPARISON: None TECHNIQUE: Transabdominal imaging of the gravid uterus was obtained. FINDINGS: The timber watchman reports a BPP of 8 out of 8. HELLEN is normal at 10.8 cm. heart rate 125 bpm. US/US OB BPP w non-stress IMPRESSION: BPP 8 out of 8. Impression dictated by: Cy Jensen Jr., D.O. 04/01/2025 3:29 PM Dictation Location: [place] [address] Electronically authenticated by: [id number] Y Date: 04/01/2025 15:29 Dictated By: Cy Jensen M.D. Signed By: 04/01/25 1531 DD/ 1529 TD/TT: Extractor Filler: Procedure Note Radiology, Radiologist, MD - 04/01/2025 [place] [address] Ultrasound Report Signed Patient: TRUDI ZAMARRIPA JMR#: [id number] : 1990Acct:[id number] Age/Sex: 34 / FADM Date: 04/01/25 Loc: [place] [address]: Rosy Quiroz Ordering Physician: Rosy Quiroz Date of Service: 04/01/25 Procedure(s): US OB BPP w non-stress Accession Number(s): [id number] cc: Rosy Quiroz; Physician,Non-Staff Shimon The [place] [address] Patient Name: TRUDI ZAMARRIPA MRN: [facility]:[id number] date: 1990 Sex: F Assigned Patient Location: Current Patient Location: US Accession/Order Number: [id number] Exam Date: 04/01/2025 15:28 Report Date: 04/01/2025 15:29 At the request of: ROSY QUIROZ Procedure: US OB BPP w non-stress Biophysical profile. Reason for exam: History of gastric sleeve surgery COMPARISON: None TECHNIQUE: Transabdominal imaging of the gravid uterus was obtained. FINDINGS: The timber watchman reports a BPP of 8 out of 8. HELLEN is normal at10.8 cm. heart rate 125 bpm. US/US OB BPP w non-stress IMPRESSION: BPP 8 out of 8. Impression dictated by: Cy Jensen Jr., D.O. 04/01/2025 3:29 PM Dictation Location: [place] [address] Electronically authenticated by: [id number] Y Date: 5:29 Dictated By: Cy Jensen M.D. Signed By:04/01/25 1531 DD/ 1529 TD/TT: Extractor Filler: Rosy [facility] Final Result documented in this encounter Visit Diagnoses Not on filedocumented in this encounter Additional Health Concerns Active Problems Noted Date Diagnosed Date OB Reminders 10/19/2024 documented as of this encounter Care Teams Employee Communications Specialist Relationship Specialty Start Date End Date Unallocated, Noms Provider, [address] [place], [place] [address] PCP - General Family Medicine 10/17/23 Amalia Bruce, TONIA [address] [place] [address] PCP - [place] Commercial 09/22/24 documented as of this encounter
--- OUTSIDE RECORDS SUMMARY | 2025-04-04 12:53 | XMS_ITS | Encounter Summary ---
Author Organization [facility] Address [address] [place] [address] Care Team Providers Care Electrical Transmission Engineer Name Role Phone Unallocated, Noms Provider Primary Care Provi chrissy Amalia Bruce HISTOLOGY SPECIALIST Unavailable [phone] Encounter Details Date Type Department Care Team (Late st Contact Info) Description 03/27/2025 Bamboo flowsheet [facility]ARA [facility] [address] [facility] [place] [address] Roscoe Diaz DO [address] [facility] [address] [place], [facility] Social History Tobacco Use Types Packs/Day Years [...] Description 04/10/2025 3:00 PM EDT Routine [facility]IARA SIL[facility] [address] [place] [address] Roscoe Diaz DO [address] [place] [address] documented as of this encounter Goals Goal Patient Goal Type Associated Problems Recent Progress Patient-Stated? Author Reminders Care Plan OB Reminders No Open Scheduling, Background documented as of this encounter Visit Diagnoses Not on filedocumented in this encounter Additional Health Concerns Active Problems Noted Date Diagnosed Date OB Reminders 10/19/2024 documented as of this encounter Care Teams Electrical Transmission Engineer Relationship Specialty Start Date End Date Unallocated, Noms Provider, MD [address] [place], [place] [address] PCP - General Family Medicine 10/17/23 Amalia Bruce, TONIA [address] [place] [address] PCP - Capo Wild 09/22/24 documented as of this encounter
--- OUTSIDE RECORDS SUMMARY | 2025-04-04 12:54 | XMS_ITS | Clinical Summary ---
Author Organization [facility] Address [address] [place] [address] Care Team Providers Care Coupon Collection Clerk Name Role Phone Dasha Lujan MD Primary Care Provider Fatimah Geiger APRN.PREPRESS PROOFER Unavailable [phone] Allergies No known active allergies Medications Omeprazole Magnesium (ACID CHANNEL MAN, OMEPRAZOLE,) 20 mg cpDR 04/16/2022 Active Active [...] 0.6 oz p ure alcohol) occ. drink [employer] Utilities Answer Date Recorded In the past 12 months has [employer], gas, oil, or water [employer] threatened to shut off services in your [...] often do you attend chur ch or sabianist services? Never 07/19/2023 Do you belong to any clubs o r organizations such as baptism groups, unions, fraternal or athletic groups, or [...] Answer Date Recorded PHQ-2 score 0 06/29/2024 [place] [place] of Occupat ional Health - Occupational Stress [...] place to sleep or slept in a fci (including now)? No 07/19/2023 Area Deprivation Index Answer Date Vern rded National Score (1-100), lower number is lower ri sk 90 07/19/2023 State Score (1-10), lower number is lower risk 8 07/19/2023 Data from: https://www.neighborhoodatlas.medicine.[facility].edu/. Last address used for calculation [address] [...] Hepatitis C Screening Discontinued Insurance Care Teams Coupon Collection Clerk Relationship Specialty [place] [address] [place], [place] [phone] PCP - General Internal Medicine 01/11/22 Fatimah Geiger APRN.PREPRESS PROOFER [address] [place], [place] [phone] Model And Mold Maker Internal Medicine 07/30/24
--- OUTSIDE RECORDS SUMMARY | 2025-04-04 12:54 | XMS_ITS | Encounter Summary ---
Author Organization [facility] tem Address [id number] [address] [place] [address] Care Team Providers Care City Superintendent Of Schools Name Role Phone Unavailable Primary Care Provider Unavailabl e Encounter Details Date Type Department Care Team (Late st Contact Info) Description 04/01/2025 Telephone Maternal- Medicine at [facility] [address] [facility] [place] [address] Blanquita Toney, KARISSA Social History Tobacco Use [...]
--- OUTSIDE RECORDS SUMMARY | 2025-04-04 12:54 | XMS_ITS | Encounter Summary ---
Author Organization [facility] Address [address] [place] [address] Care Team Providers Care Package Delivery Driver Name Role Phone Unallocated, Noms Provider Primary Care Provi chrissy Amalia Bruce EARRING MAKER Unavailable [phone] Encounter Details Date Type Department Care Team (Late st Contact Info) Description 02/04/2025 Results Follow-Up [facility] [place] [facility]BGYLee [address] [facility] [place] [address] Monika Mesa LPN [address] [place] [phone] ALL CBC WITH AUTO DIFF, GLUCOSE 1 HOUR Social History Tobacco Use Types Packs/Day Years [...] Description 04/10/2025 3:00 PM EDT Routine [facility] [place] OBGYN [address] [facility] [place] [address] Roscoe Diaz DO [address] [facility] [place] [address] documented as of this encounter Goals Goal Patient Goal Type Associated Problems Recent Progress Patient-Stated? Author Reminders Care Plan OB Reminders No Open Scheduling, Background documented as of this encounter Visit Diagnoses Not on filedocumented in this encounter Additional Health Concerns Active Problems Noted Date Diagnosed Date OB Reminders 10/19/2024 documented as of this encounter Care Teams Package Delivery Driver Relationship Specialty Start Date End Date Unallocated, Noms Herlinda, [address] [place] [address] PCP - General Family Medicine 10/17/23 Amalia Bruce, TONIA [address] [place] [address] PCP - Capo Wild 09/22/24 documented as of this encounter
--- OUTSIDE RECORDS SUMMARY | 2025-04-04 12:54 | XMS_ITS | Encounter Summary ---
Author [facility] Address [id number] [address] [place] [address] Care Team Providers Care Assembler Arranger Name Role Phone Unavailable Primary Care Provider [...]
--- OUTSIDE RECORDS SUMMARY | 2025-04-04 12:54 | XMS_ITS | Encounter Summary ---
Author Organization [facility] Address [address] [place] [address] Care Team Providers Care Electronics Mechanic Apprentice Name Role Phone Dasha Lujan MD Primary Care Provider Sonia Dickerson CDS SALES ADVISOR.AUTOMOTIVE INTERNET SALES CONSULTANT Unavailable Fatimah Geiger CDS SALES ADVISOR.AUTOMOTIVE INTERNET SALES CONSULTANT Unavailable Ruth Richardson CDS SALES ADVISOR.AUTOMOTIVE INTERNET SALES CONSULTANT Unavailable [phone] Berenice Rivas APRN.AUTOMOTIVE INTERNET SALES CONSULTANT Unavailable Zarina Pope PA-C Unavailable Source Comments In the event this information is protected by the Federal Confidentiality of Alcohol and Drug AbusePatient Records regulations: The Federal rules restrict any use of the information to criminally investigate or prosecute any alcohol or drug abuse patient.[facility] Encounter Details Date Type Department Care Team (Late st Contact Info) Description 06/18/2024 Patient Msg Internal Medicine [address] [place] [address] Berenice Rivas APRN.AUTOMOTIVE INTERNET SALES CONSULTANT [address] [place] [address] Appointment Request Social History Tobacco Use Types Packs/Day Years Used Date Smoking Tobacco: Never Smokeless Tobacco: Never Alcohol Use Standard Drinks/Week Comments Yes 1.3 (1 standard drink = 0.6 oz p ure alcohol) occ. drink [facility] Utilities Answer Date Recorded In the past 12 months has th e electric, gas, oil, or water [employer] threatened to shut off services in your [...] often do you attend chur ch or mandaeism services? Never 07/19/2023 Do you belong to any clubs o r organizations such as latter day groups, unions, fraternal or athletic groups, or [...] Answer Date Recorded PHQ-2 score 0 07/22/2023 [facility] [place] of Occupat ional Health - Occupational Stress [...] place to sleep or slept in a custodial (including now)? No 07/19/2023 Area Deprivation Index Answer Date Vern rded National Score (1-100), lower number is lower ri sk 90 07/19/2023 State Score (1-10), lower number is lower risk 8 07/19/2023 Data from: https://www.neighborhoodatlas.medicine.[facility].edu/. Last address used for calculation [address] [...] on filedocumented in this encounter Care Teams Electronics Mechanic Apprentice Relationship Specialty [place] [address] [place] [address] PCP - General Internal Medicine 01/11/22 Sonia Dickerson, CDS SALES ADVISOR.AUTOMOTIVE INTERNET SALES CONSULTANT [address] [place] [address] Production Machine Shop Supervisor Internal Medicine 07/30/24 08/29/24 Fatimah Geiger, CDS SALES ADVISOR.AUTOMOTIVE INTERNET SALES CONSULTANT [address] [place] [address] Production Machine Shop Supervisor Internal Medicine 07/30/24 Ruth Richardson, CDS SALES ADVISOR.AUTOMOTIVE INTERNET SALES CONSULTANT [address] [place] [address] [facility] Internal Medicine 07/30/24 08/29/24 Berenice Rivas, CDS SALES ADVISOR.AUTOMOTIVE INTERNET SALES CONSULTANT [address] [place] [address] [facility] Internal Medicine 07/30/24 08/29/24 Zarina Pope PA-C [address] [place] [address] Production Machine Shop Supervisor Internal Medicine 07/30/24 08/29/24 documented as of this encounter
--- OUTSIDE RECORDS SUMMARY | 2025-04-04 12:54 | XMS_ITS | Clinical Summary ---
Author Organization [facility] Address [address] [place] [address] Care Team Providers Care Boring Inspector Name Role Phone Unallocated, Noms Provider Primary Care Provi chrissy Amalia Bruce REEFER TRUCK DRIVER Unavailable [phone] Allergies No known active allergies Medications omeprazole OTC (PriLOSEC OTC) 20 MG EC tablet Take 20 mg by mouth in the morning. Take before meals. Do not crush, chew, or split.. Active Vit-Fe Fumarate-FA ( 19) 29-1 MG chewable tabletIndication s:, unspecified gestational age ([facility]) Chew 1 each Daily 30 tablet 11 5 Active Alcohol Swabs (Alcohol Prep Pad) 70 % padsIndications: Gestational diabetes mellitus (GDM), antepartum, gestational diabetes method of control unspecified ([facility]),Elevat ed glucose tolerance test Apply 1 Pad topically Daily Use four times daily to check FSBS. 150 each 3 5 Active Blood Glucose Monitoring Suppl (D-Care Glucometer) w/Device kitIndications:G estational diabetes mellitus (GDM), antepartum, gestational diabetes method of control unspecified ([facility]),Elevat ed glucose tolerance test 1 kit Daily [...] antepartum, gestational diabetes method of control unspecified ([facility]),Elevat ed glucose tolerance test 1 each by In Vitro route Daily Use to check FSBS four times daily 150 each 3 5 03/06/20 25 Glucose Blood (Blood Glucose Test) stripIndications :Gestational diabetes mellitus (GDM), antepartum, gestational diabetes method of control unspecified ([facility]),Elevat ed glucose tolerance test 1 strip by In Vitro route Daily Use in the morning prior to breakfast, 1 hour after each meal for a total of 4times daily. 150 strip 3 5 03/06/20 25 Encounters Date Type Department Care Team Description 04/01/2025 Clinisync Result Encounter [facility] External Department Unsolicited Rosy Quiroz PA 03/28/2025 [place] [address] Jes Garza MA 03/27/2025 2:00 PM [place] [address] Dimple Diaz, Third trimester ([facility]); H/O gastric sleeve; Gestational diabetes mellitus (GDM), antepartum, gestational diabetes method of control unspecified ([facility]); 32 weeks gestation of ([facility]) 03/27/2025 [place] [address] Dimple Diaz DO 03/27/2025 Travel 03/13/2025 3:50 PM [place] [address] Rosy Quiroz PA 30 weeks gestation of ([facility]); Third trimester ([facility]); H/O gastric sleeve; Gestational diabetes mellitus (GDM), antepartum, gestational diabetes method of control unspecified ([facility]) 03/13/2025 Bamboo flowsheet [facility] [address] [place] [address] Rosy Quiroz PA 03/10/2025 Travel 02/27/2025 1:40 [place] [address] Dimple Diaz DO 28 weeks gestation of ([facility]); Third trimester ([facility]); H/O gastric sleeve; Gestational diabetes mellitus (GDM), antepartum, gestational diabetes method of control unspecified ([facility]) 02/27/2025 1:00 PM EDT [place] [address] H/O gastric sleeve 02/26/2025 Travel 02/11/2025 11:30 AM [place] [address] Rosy Quiroz PA Second trimester ([facility]); 26 weeks gestation of ([facility]); H/O gastric sleeve 02/11/2025 Travel 02/06/2025 [place] [address] Dimple Diaz DO 02/04/2025 [place] [address] Monika Mesa LPN 02/04/2025 [place] [address] Monika Mesa LPN ALL CBC WITH AUTO DIFF, GLUCOSE 1 HOUR 02/01/2025 [place] [address] Ana Costello MA 02/01/2025 Clinisync Result Encounter [facility] External Department Unsolicited Dimple Diaz, 01/30/2025 1:00 PM EDT [place] [address] Encounter for follow-up ultrasound of anatomy ([facility]) 01/27/2025 Travel 01/10/2025 10:10 AM [place] [address] Dimple Diaz, DO 21 weeks gestation of ([facility]); Second trimester ([facility]); Diabetes mellitus screening 01/10/2025 [place] [address] Dimple Diaz, 01/09/2025 [place] [address] Dimple Diaz, 01/07/2025 [place] [address] Jes Garza MA 01/03/2025 Travel 01/02/2025 Clinisync [...] PM EDT Routine [facility] [address] [place] [address] Dimple Diaz DO [address] [place] [address] Health Maintenance Due Date Last Done Comments HPV/Cotest 2022 Influenza Vaccine (#1) 2025 Cervical Cancer Screening 12/11/2027 Pap Smear 12/11/2027 12/10/2024 Goals Goal Patient Goal Type Associated Problems Recent Progress Patient-Stated? Author Reminders Care Plan OB Reminders No Open Scheduling, Background Procedures Procedure Name Priority Date/Time Associated Diagnosis Comments US OB BPP W NON-STRESS 04/01/2025 3:29 PM EDT POCT URINALYSIS DIPSTICK Routine 03/27/2025 2:49 PM EDT Third trimester ([facility]) H/O gastric sleeve Gestational diabetes mellitus (GDM), antepartum, gestational diabetes method of control unspecified ([facility]) 32 weeks gestation of ([facility]) POCT URINALYSIS DIPSTICK Routine 03/13/2025 3:46 PM EDT 30 weeks gestation of ([facility]) Third trimester ([facility]) POCT URINALYSIS DIPSTICK Routine 02/27/2025 2:04 PM EDT 28 weeks gestation of ([facility]) Third trimester ([facility]) US OB FOLLOW UP TRANSABDOMINAL APPROACH Routine 02/27/2025 1:40 PM EDT H/O gastric sleeve POCT URINALYSIS DIPSTICK Routine 02/11/2025 11:50 AM EDT Second trimester ([facility]) GLUCOSE 1 HOUR Routine 02/01/2025 9:28 AM EDT ALL CBC WITH AUTO DIFF Routine 9:28 AM EDT US OB LIMITED 1+ FETUSES Routine 01/30/2025 1:20 PM EDT Encounter for follow-up ultrasound of anatomy ([facility]) POCT URINALYSIS DIPSTICK Routine 01/10/2025 10:40 AM EDT 21 weeks gestation of ([facility]) Second trimester ([facility]) US OB ANATOMY 01/02/2025 10:47 PM EDT US OB CERVICAL LENGTH 01/02/2025 10:47 PM EDT PAP SMEAR Routine 12/10/2024 12:00 AM EDT from Last 3 Months or Most Recently Relevant to Health Maintenance Results * US OB BPP W NON-STRESS (04/01/2025 3:29 PM EDT) Anatomical Region Laterality Modality Other 04/01/2025 3:29 PM EDT Narrative 04/01/2025 3:31 [place] [address] Ultrasound Report Signed Patient: TRUDI ZAMARRIPA MR#: [id number] : 1990 Acct:[id number] Age/Sex: 34 / F ADM Date: 04/01/25 Loc: [address]: Rosy Quiroz Ordering Physician: Rosy Quiroz Date of Service: 04/01/25 Procedure(s): US OB BPP w non-stress Accession Number(s): [id number] cc: Rosy Quiroz; Physician,Non-Staff M.DCharisse [place] [address] Patient Name: TRUDI ZAMARRIPA MRN: [id number] date: 1990 Sex: F Assigned Patient Location: US Current Patient Location: US Accession/Order Number: [id number] Exam Date: 04/01/2025 15:28 Report Date: 04/01/2025 15:29 At the request of: ROSY QUIROZ Procedure: US OB BPP w non-stress Biophysical profile. Reason for exam: History of gastric sleeve surgery COMPARISON: None TECHNIQUE: Transabdominal imaging of the gravid uterus was obtained. FINDINGS: The machine milker reports a BPP of 8 out of 8. HELLEN is normal at 10.8 cm. heart rate 125 bpm. US/US OB BPP w non-stress IMPRESSION: BPP 8 out of 8. Impression dictated by: Cy Jensen Jr., D.O. 04/01/2025 3:29 PM Dictation Location: [place] [address] Electronically authenticated by: [id number] Y Date: 04/01/2025 15:29 Dictated By: Cy Jensen M.D. Signed By: 04/01/25 1531 DD/ 1529 TD/TT: It Support Engineer: Procedure Note Radiology, Radiologist, - 04/01/[address] [address] Ultrasound Report Signed Patient: TRUDI ZAMARRIPA JMR#: [id number] : 1990Acct:[id number] Age/Sex: 34 / FADM Date: 04/01/25 Loc: [facility] [address]: Rosy Quiroz Ordering Physician: Rosy Quiroz Date of Service: 04/01/25 Procedure(s): US OB BPP w non-stress Accession Number(s): [id number] cc: Rosy Quiroz; Physician,Non-Staff M.Bruce The [place] [id number] Patient Name: TRUDI ZAMARRIPA MRN: [id number] date: 1990 Sex: F Assigned Patient Location: Current Patient Location: Accession/Order Number: [id number] Exam Date: 04/01/2025 15:28 Report Date: 04/01/2025 15:29 At the request of: ROSY QUIROZ Procedure: US OB BPP w non-stress Biophysical profile. Reason for exam: History of gastric sleeve surgery COMPARISON: None TECHNIQUE: Transabdominal imaging of the gravid uterus was obtained. FINDINGS: The machine milker reports a BPP of 8 out of 8. HELLEN is normal at10.8 cm. heart rate 125 bpm. US/US OB BPP w non-stress IMPRESSION: BPP 8 out of 8. Impression dictated by: Cy Jensen Jr., D.O. 04/01/2025 3:29 PM Dictation Location: [place] [address] Electronically authenticated by: [id number] Y Date: 5:29 Dictated By: Cy Jensen M.D. Signed By:04/01/25 1531 DD/ 1529 TD/TT: It Support Engineer: us Rosy KRUGER [facility] Final Result * (ABNORMAL) POCT urinalysis dipstick manually resulted [...] - Positive Urine 03/27/2025 2:49 PM EDT us Dimple Joe DO POINT OF CARE TEST ENTER/EDIT [...] BY: ELECTRONICALLY SIGNED BY: Cy Douglas MD Rosy KRUGER IMG OB US PROCEDURES Final Resul t * (ABNORMAL) GLUCOSE 1 HOUR (02/01/2025 9:28 AM EDT) GLUCOSE 1 HOUR 198(H) <130 mg/dL TBH 02/01/2025 9:28 AM EDT 02/01/2025 9:30 AM EDT Narrative [facility] - 02/01/2025 11:36 AM EDT us Dimple Joe DO LAB BLOOD ORDERABLES Final Resul t [facility] * (ABNORMAL) ALL CBC WITH AUTO DIFF (02/01/2025 9:28 AM EDT) [facility] WBC 9.4 4.0 - 11.0 10 [...] AM EDT 02/01/2025 9:30 AM EDT Narrative [facility] - 02/01/2025 9:37 AM EDT us Dmiple Diaz DO CECILIA Final Result CECILIA [facility] * US OB limited 1+ fetuses (01/30/2025 [...] II, MD, PHD at 01-Feb-2025 10:22:21 AM [facility] Procedure Note Brittany Sebastian MD - [...] signed by BRITTANY SEBASTIAN II, MD, PHD [id number] 10:22:21 AM [facility] us Dimple Joe DO IMG OB US PROCEDURES Final Resul t * US OB CERVICAL LENGTH (01/02/2025 10:47 PM EDT) Anatomical Region Laterality Modality Other 01/02/2025 10:4 7 PM EDT Narrative 01/02/2025 10:50 [place] [address] Ultrasound Report Signed Patient: TRUDI ZAMARRIPA MR#: [id number] : 1990 Acct:[id number] Age/Sex: 34 / F ADM Date: 01/02/25 Loc: US Attending Dr: Dimple Diaz D.O. Ordering Physician: Dimple iDaz D.O. Date of Service: 01/02/25 Procedure(s): US OB cervical length Accession Number(s): [id number] cc: Dimple Diaz D.O.; Physician,Non-Staff M.Bruce [place] [id number] Patient Name: TRUDI ZAMARRIPA MRN: [id number] date: 1990 Sex: F Assigned Patient Location: US Current Patient Location: Accession/Order Number: [id number] Exam Date: 01/02/2025 22:40 Report Date: 01/02/2025 [...] Briscoe M.D. 01/02/2025 10:47 PM Dictation Location: [place] [address] Electronically authenticated by: [id number] Y Date: 01/02/2025 22:47 Dictated By: Suraj Briscoe D.O. Signed By: 01/02/252249 DD/ 46 TD/TT: It Support Engineer: Procedure Note Radiology, Radiologist, MD - 01/02/2025 [place] [address] Ultrasound Report Signed Patient: TRUDI ZAMARRIPAMR#: [id number] : 1990Acct:[id number] Age/Sex: 34 / FADM Date: 01/02/25 Loc: US Attending Dr: Dimple Diaz D.O. Ordering Physician: Dimple Diaz D.O. Date of Service: 01/02/25 Procedure(s): US OB cervical length Accession Number(s): [id number] cc: Dimple Diaz D.O.; Physician,Non-Staff Shimon The [address] [address] Patient Name: TRUDI ZAMARRIPA MRN: [id number] date: 1990 Sex: F Assigned Patient Location: US Current Patient Location: US Accession/Order Number: [id number] Exam Date: 01/02/2025 22:40 Report Date: 01/02/2025 [...] Briscoe M.D. 01/02/2025 10:47 PM Dictation Location: [employer] Electronically authenticated by: [id number] Y Date: 2:47 Dictated By: Suraj Briscoe D.O. Signed By:01/02/25 3240 DD/ TD/TT: It Support Engineer: Dimple Diaz DO [facility] Final Result * US OB ANATOMY (01/02/2025 10:47 PM EDT) Anatomical Region Laterality Modality Other 01/02/2025 10:4 7 PM EDT Narrative 01/02/2025 10:50 PM EDT [address] [address] Ultrasound Report Signed Patient: TRUDI ZAMARRIPA MR#: [id number] : 1990 Acct:[id number] Age/Sex: 34 / F ADM Date: 01/02/25 Loc: US Attending Dr: Dimple Diaz D.O. Ordering Physician: Dimple Diaz D.O. Date of Service: 01/02/25 Procedure(s): US OB anatomy Accession Number(s): [id number] cc: Dimple Diaz D.O.; Physician,Non-Staff Shimon [address] [address] Patient Name: TRUDI ZAMARRIPA MRN: [id number] date: 1990 Sex: F Assigned Patient Location: US Current Patient Location: US Accession/Order Number: [id number] Exam Date: 01/02/2025 22:40 Report Date: 01/02/2025 [...] Briscoe M.D. 01/02/2025 10:47 PM Dictation Location: [place] [address] Electronically authenticated by: [id number] Y Date: 01/02/2025 22:47 Dictated By: Suraj Briscoe D.O. Signed By: 01/02/252249 DD/ 46 TD/TT: It Support Engineer: Procedure Note Radiology, Radiologist, - 01/02/2025 [place] [address] Ultrasound Report Signed Patient: TRUDI ZAMARRIPAMR#: [id number] : 1990Acct:[id number] Age/Sex: 34 / FADM Date: 01/02/25 Loc: US Attending Dr: Dimple Diaz D.O. Ordering Physician: Dimple Diaz D.O. Date of Service: 01/02/25 Procedure(s): US OB anatomy Accession Number(s): [id number] cc: Dimple Diaz D.O.; Physician,Non-Staff Shimon The [place] [id number] Patient Name: TRUDI ZAMARRIPA MRN: [id number] date: 1990 Sex: F Assigned Patient Location: US Current Patient Location: US Accession/Order Number: [id number] Exam Date: 01/02/2025 22:40 Report Date: 01/02/2025 [...] Briscoe M.D. 01/02/2025 10:47 PM Dictation Location: [facility] Electronically authenticated by: [id number] Y Date: 2:47 Dictated By: uSraj Briscoe D.O. Signed By:01/02/25 2250 DD/ 2247 TD/TT: It Support Engineer: Dimple Diaz DO [facility] Final Result * Pap Smear (12/10/2024 12:00 AM EDT) Swab Cervical swab / Unknown Joe Nurse [facility] Ob LAB CYTOLOGY ORDERABLES Final Result EXTERNAL LAB from Last 3 Months or Most Recently Relevant to Health Maintenance Additional Health Concerns Active Problems Noted Date Diagnosed Date OB Reminders 10/19/2024 Insurance [facility] Care Teams Boring Inspector Relationship Specialty Start Date End Date Unallocated, Noms Provider, [address] [place] [address] PCP - General Family Medicine 10/17/23 Amalia Bruce NP [address] [place] [address] PCP - [place] [employer] 09/22/24
--- OUTSIDE RECORDS SUMMARY | 2025-04-04 12:54 | XMS_ITS | Encounter Summary ---
Author Organization [facility] tem Address [id number] [address] [place] [address] Care Team Providers Care Newspaper Reporter Name Role Phone Unavailable Primary Care Provider Unavailabl e Encounter Details Date Type Department Care Team (Late st Contact Info) Description 03/26/2025 Telephone Maternal- Medicine at [facility] [address] [place] [phone] Devika Pope LD [address] [place] [address] Social History Tobacco Use Types Packs/Day Years [...] Lantus in the evening. Will send a Ibetor message. documented in this encounter Plan of Treatment Not on file documented as of this encounter Visit Diagnoses Not on filedocumented in this encounter
--- OUTSIDE RECORDS SUMMARY | 2025-04-04 12:54 | XMS_ITS | Encounter Summary ---
Author Organization [facility] Address [address] [place] [address] Care Team Providers Care Bomb Squad Officer Name Role Phone Unallocated, Noms Provider Primary Care Provi chrissy Amalia Bruce RAILWAY TRACK WORKER Unavailable [phone] Encounter Details Date Type Department Care Team (Late Contact Info) Description 02/06/2025 Abstract [facility] [address] [place] [place] [address] Roscoe Diaz DO [address] [place] [address] Social History Tobacco Use Types Packs/Day Years [...] 3:00 PM EDT Routine [facility] [address] [place] [phone] Roscoe Diaz DO [address] [place] [address] documented as of this encounter Goals Goal Patient Goal Type Associated Problems Recent Progress Patient-Stated? Author Reminders Care Plan OB Reminders No Open Scheduling, Background documented as of this encounter Visit Diagnoses Not on filedocumented in this encounter Additional Health Concerns Active Problems Noted Date Diagnosed Date OB Reminders 10/19/2024 documented as of this encounter Care Teams Bomb Squad Officer Relationship Specialty Start Date End Date Unallocated, [place] Provider, [address] [place], [place] [id number] PCP - General Family Medicine 10/17/23 Amalia Bruce, TONIA [address] [place] [address] PCP - [place] [employer] 09/22/24 documented as of this encounter
--- OUTSIDE RECORDS SUMMARY | 2025-04-04 12:54 | XMS_ITS | Encounter Summary ---
Author Organization [facility] tem Address [id number] [address] [place] [address] Care Team Providers Care Hardening Machine Operator Helper Name Role Phone Unavailable Primary Care Provider Unavailabl e Encounter Details Date Type Department Care Team (Late st Contact Info) Description 04/01/2025 Telephone Maternal- Medicine at [facility] [address] [facility] [place] [phone] Blanquita Toney, KARISSA Social History Tobacco Use [...]
--- OUTSIDE RECORDS SUMMARY | 2025-04-04 12:54 | XMS_ITS | Clinical Summary ---
Author Organization [facility] tem Address [id number] [address] [place] [address] Care Team Providers Care Supervisor [place] Name Role Phone Unavailable Primary Care Provider Unavailabl e Allergies No known active allergies Medications 25-IRON [id number] ORAL Take 1 tablet by mouth in [...] 10:00 AM EDT Telemedicine [facility]- [facility] at [facility] [address] [place] [id number] Daisha Morel PA-C Gestational diabetes requiring insulin (Primary Dx) 04/01/2025 Telephone [facility] at [facility] [address] [place] [address] Blanquita Toney, KARISSA 04/01/2025 Travel 04/01/2025 Telephone [facility]- [facility] at [facility] [address] [place] [address] Blanquita Toney, KARISSA 03/26/2025 Telephone Maternal- Medicine at [place] [address] [place] [address] Devika Pope LD 03/19/2025 Telephone [facility]- [facility] at [place] [address] [place] [address] Fatimah Ball LD 03/12/2025 1:30 PM EDT Office Visit Maternal- Medicine at [place] [address] [place] [address] Daisha Morel PA-C Gestational diabetes mellitus (GDM) in second trimester, gestational diabetes method of control unspecified (Primary Dx); Gestational diabetes requiring insulin 03/12/2025 Travel 03/05/2025 Telephone [facility]- [facility] at [facility] [address] [place] [address] Devika Pope LD 02/26/2025 Telephone [facility]- Medicine at [place] [address] [place] [address] Devika Pope LD 02/14/2025 1:30 PM EDT Support Visit M[facility]- Medicine at [place] [address] [place] [address] Hien Giles RN Devika Pope, LD Gestational diabetes mellitus (GDM) in second trimester, gestational diabetes method of control unspecified (Primary Dx) 02/13/2025 Travel 02/07/2025 Orders Only [facility]- [facility] at [facility] [address] [place] [address] Ref Prov, Not In System 02/07/2025 Abstract [facility]- Medicine at [facility] [address] [place] [address] External, Scanning Provider from Last 3 Months [...] 02/01/2025 HEMOGLOBIN AND HEMATOCRIT, BLOOD Routine 02/01/2025 from Last 3 Months Results * Glucose random or fasting- POCT (02/14/2025) External Glucose Fasting Or Random (Fbs) 88 MANUALLY TRANSCRIBED RESULTS Blood Venous blood / Unknown 02/14/2025 us Arie Piper MD LAB BLOOD ORDERABLES Final Re sult Performing Organization Address City/[facility] [address]/ZIP Co de Phone Number MANUALLY TRANSCRIBED RESULTS [...]
--- OUTSIDE RECORDS SUMMARY | 2025-04-04 12:54 | XMS_ITS | Encounter Summary ---
Author Organization [facility] Address [address] [place] [address] Care Team Providers Care Real Estate Intern Name Role Phone Dasha Lujan MD Primary Care Provider Sonia Dickerson SAMPLE TAKER OPERATOR.LITIGATION COUNSEL Unavailable [phone] Fatimah Geiger SAMPLE TAKER OPERATOR.LITIGATION COUNSEL Unavailable Ruth Richardson SAMPLE TAKER OPERATOR.LITIGATION COUNSEL Unavailable [phone] Berenice Rivas APRN.LITIGATION COUNSEL Unavailable Zarina Pope PA-C Unavailable Source Comments In the event this information is protected by the Federal Confidentiality of Alcohol and Drug AbusePatient Records regulations: The Federal rules restrict any use of the information to criminally investigate or prosecute any alcohol or drug abuse patient.[facility] Encounter Details Date Type Department Care Team (Late st Contact Info) Description 06/12/2024 Patient Msg Internal Medicine [address] [place] [address] Berenice Rivas APRN.LITIGATION COUNSEL [address] [place] [address] Appointment Request Social History Tobacco Use Types Packs/Day Years Used Date Smoking Tobacco: Never Smokeless Tobacco: Never Alcohol Use Standard Drinks/Week Comments Yes 1.3 (1 standard drink = 0.6 oz p ure alcohol) occ. drink [facility] Utilities Answer Date Recorded In the past 12 months has th e electric, gas, oil, or water [employer] threatened to shut off services in your [...] any clubs o r organizations such as muslim groups, unions, fraternal or athletic groups, or [...] Answer Date Recorded PHQ-2 score 0 07/22/2023 [facility] of Occupat ional Health - Occupational Stress [...] is lower risk 8 07/19/2023 Data from: https://www.neighborhoodatlas.medicine.[facility].edu/. Last address used for calculation [address] [...] on filedocumented in this encounter Care Teams Real Estate Intern Relationship Specialty [place] [address] [place] [address] PCP - General Internal Medicine 01/11/22 Sonia Dickerson, SAMPLE TAKER OPERATOR.LITIGATION COUNSEL [address] [place] [address] [facility] 07/30/24 08/29/24 Fatimah Geiger, SAMPLE TAKER OPERATOR.LITIGATION COUNSEL [address] [place] [address] [facility] 07/30/24 Ruth Richardson, SAMPLE TAKER OPERATOR.LITIGATION COUNSEL [address] [place] [address] [facility] Internal Medicine 07/30/24 08/29/24 Berenice Rivas, SAMPLE TAKER OPERATOR.LITIGATION COUNSEL [address] [place] [address] [facility] Internal Medicine 07/30/24 08/29/24 Zarina Pope PA-C [address] [place] [address] [facility] 07/30/24 08/29/24 documented as of this encounter
--- OUTSIDE RECORDS SUMMARY | 2025-04-04 12:54 | XMS_ITS | Encounter Summary ---
Author Organization [facility] Address [address] [place] [address] Care Team Providers Care Circular Sawyer Stone Name Role Phone Dasha Lujan MD Primary Care Provider Sonia Dickerson CAFETERIA TABLE ATTENDANT.INTERNET ASSESSOR Unavailable Fatimah Geiger CAFETERIA TABLE ATTENDANT.INTERNET ASSESSOR Unavailable [phone] Ruth Richardson CAFETERIA TABLE ATTENDANT.INTERNET ASSESSOR Unavailable Berenice Rivas APRN.INTERNET ASSESSOR Unavailable [phone] Zarina Pope PA-C Unavailable Source Comments In the event this information is protected by the Federal Confidentiality of Alcohol and Drug AbusePatient Records regulations: The Federal rules restrict any use of the information to criminally investigate or prosecute any alcohol or drug abuse patient.[facility] Encounter Details Date Type Department Care Team (Late st Contact Info) Description 06/18/2024 Patient Msg Internal Medicine [address] [place] [address] Berenice Rivas APRN.INTERNET ASSESSOR [address] [place] [address] Appointment Request Social History Tobacco Use Types Packs/Day Years Used Date Smoking Tobacco: Never Smokeless Tobacco: Never Alcohol Use Standard Drinks/Week Comments Yes 1.3 (1 standard drink = 0.6 oz p ure alcohol) occ. drink [facility] Utilities Answer Date Recorded In the past 12 months has th e electric, gas, oil, or water [employer] threatened to shut off services in your [...] often do you attend chur ch or yazidi services? Never 07/19/2023 Do you belong to any clubs o r organizations such as hoahaoism groups, unions, fraternal or athletic groups, or [...] Answer Date Recorded PHQ-2 score 0 07/22/2023 [facility] [place] of Occupat ional Health - Occupational Stress [...] place to sleep or slept in a chcf (including now)? No 07/19/2023 Area Deprivation Index Answer Date Vern rded National Score (1-100), lower number is lower ri sk 90 07/19/2023 State Score (1-10), lower number is lower risk 8 07/19/2023 Data from: https://www.neighborhoodatlas.medicine.[facility].edu/. Last address used for calculation [address] [...] on filedocumented in this encounter Care Teams Circular Sawyer Stone Relationship Specialty [place] [address] [place] [address] PCP - General Internal Medicine 01/11/22 Sonia Dickerson, CAFETERIA TABLE ATTENDANT.INTERNET ASSESSOR [address] [place] [address] [facility] 07/30/24 08/29/24 Fatimah Geiger, CAFETERIA TABLE ATTENDANT.INTERNET ASSESSOR [address] [place] [address] [facility] Internal [facility] 07/30/24 Ruth Richardson, CAFETERIA TABLE ATTENDANT.INTERNET ASSESSOR [address] [place] [address] [facility] Internal Medicine 07/30/24 08/29/24 Berenice Rivas, CAFETERIA TABLE ATTENDANT.INTERNET ASSESSOR [address] [place] [address] [facility] Internal Medicine 07/30/24 08/29/24 Zarina Pope PA-C [address] [place] [address] [facility] 07/30/24 08/29/24 documented as of this encounter
--- OUTSIDE RECORDS SUMMARY | 2025-04-04 12:54 | XMS_ITS | Encounter Summary ---
Author Organization [facility] Address [address] [place] [address] Care Team Providers Care Blanket Weaver Name Role Phone Unallocated, Noms Provider Primary Care Provi chrissy Amalia Bruce CRIME VICTIM SPECIALIST Unavailable [phone] Encounter Details Date Type Department Care Team (Late Contact Info) Description 01/09/2025 Abstract [facility] [address] [facility] [facility] [place] [address] Roscoe Diaz DO [address] [place] [address] Social History Tobacco Use Types Packs/Day Years [...] 3:00 PM EDT Routine [facility] [address] [facility] [place] [id number] Roscoe Diaz DO [address] [place] [address] documented as of this encounter Goals Goal Patient Goal Type Associated Problems Recent Progress Patient-Stated? Author Reminders Care Plan OB Reminders No Open Scheduling, Background documented as of this encounter Visit Diagnoses Not on filedocumented in this encounter Additional Health Concerns Active Problems Noted Date Diagnosed Date OB Reminders 10/19/2024 documented as of this encounter Care Teams Blanket Weaver Relationship Specialty Start Date End Date Unallocated, [employer] Provider, [address] [place], [place] [id number] PCP - General Family Medicine 10/17/23 Amalia Bruce, TONIA [address] [place] [address] PCP - [employer] 09/22/24 documented as of this encounter
--- OUTSIDE RECORDS SUMMARY | 2025-04-04 12:57 | XMS_ITS | CCD ---
Author Organization [facility] CliniSyal Care Team Providers Care Health Plan Manager Name Role Phone Unavailable Primary Care Provider UnavailDasha Kern MD Primary Care Provider MD Dasha Lujan Primary Care Provider BRETT Breaux Attending Provider Reena Breaux Admitting Unavailable Reena Breaux Attending Unavailable Lujan, Sunir C Primary Care Unavailable Reena Breaux Admitting Unavailable Reena Breaux Attending Unavailable Lujan, Sunir C Primary Care Unavailable Tai ROQUE Sunir C Primary Care Provider Dasha Lujan MD Primary Care Provider BERENICE ZEPEDA Attending Unavailable LUJAN, SUNIR C Primary Care Unavailable LUJAN, SUNIR C Primary Care Unavailable BERENICE ZEPEDA Attending Unavailable BERENICE ZEPEDA Attending Unavailable LUJAN, SUNIR C Primary Care Unavailable BERENICE ZEPEDA Attending Unavailable LUJAN, SUNIR C Primary Care Unavailable LUJAN, SUNIR C Primary Care Unavailable Unallocated , [place] Provider Primary Care [facility] Unavailable Teo [facility] N Unavailable Unavailable Primary Care Provider UnavailROSCOE Cruz Attending Unavailable ROSY QUIROZ Attending Unavailable ROSCOE DIAZ Attending Unavailable ORALIA, ROSY Attending Unavailable ORALIA, ROSY Referring Unavailable ROSCOE DIAZ Attending Unavailable ORALIA ROSY Attending Unavailable ROSCOE DIAZ Attending Unavailable SINA GARNER Attending Unavailable SINA GARNER Referring Unavailable EDU ALVAREZ Attending Unavailable DEVIKA POPE Attending Unavailable ROSCOE DIAZ Referring Unavailable DAISHA MOREL Attending Unavailable ROSCOE DIAZ Referring Unavailable DAISHA MOREL Attending Unavailable ROSCOE DIAZ Referring Unavailable Medications Current Medications Medication Drug Class(es) Dates Sig (Normalized) Sig (Original) aspirin 81 mg delayed release oral tablet (6 sources) Platelet Aggregation Inhibitor, Nonsteroidal Anti-inflammatory Drug take 1 tablet by mouth once daily aspirin 81 MG EC tablet Take 81 mg by mouth Daily Active bisacodyl 5 mg delayed release oral tablet (2 sources) Stimulant Laxative Start: 07-25-2024 End: 07-25-2024 take 1 tablet by mouth once bisacodyl (Dulcolax) 5 MG EC tablet Indications: Rectal bleeding Take 1 tablet (5 mg) by mouth 1 time for 1 dose Do not crush, chew, or split. Take as detailed on clinic hand out for colonoscopy prep 4 tablet 07/25/2024 07/25/2024 Active Blood Glucose Monitoring Suppl (D-Care Glucometer) w/Device kit (11 sources) Start: 02-04-2025 End: 02-04-2026 Blood Glucose Monitoring Suppl (D-Care Glucometer) w/Device kit Indications: Gestational diabetes mellitus (GDM), antepartum, gestational diabetes method of control unspecified ([facility]) , Elevated glucose tolerance test 1 kit Daily Use four times daily to check FSBS. In the morning prior to breakfast & 1 hour after each meal for a total of 4times daily. 1 kit 02/04/2025 02/04/2026 Active 3 ml insulin glargine 100 unt/ml pen injector (12 sources) Insulin Analog Start: 03-12-2025 inject 10 [IU] by subcutaneous injection at bedtime insulin glargine (Lantus SoloStar) 100 UNIT/ML pen Inject 10 Units under the skin at bedtime 03/12/2025 Active Start: 03-12-2025 insulin glargi ne (LANTUS SOLOSTAR U-100 INSULIN) 100 unit/mL (3 mL) insulin pen Indications: Gestational diabetes requiring insulin Inject 10 units every evening . Prime with two units. 15 mL 3 03/12/2025 Active isopropyl alcohol 0.7 ml/ml medicated pad (11 sources) Start: 02-04-2025 Alcohol Swabs (Alcohol Prep Pad) 70 % pads Indications: Gestational diabetes mellitus (GDM), antepartum, gestational diabetes method of control unspecified ([facility]) , Elevated glucose tolerance test Apply 1 Pad topically Daily Use four times daily to check FSBS. 150 each 3 02/04/2025 Active omeprazole 20 mg delayed release oral capsule (20 sources) Proton Pump Inhibitor Start: 04-16-2022 Omeprazole Magnesium (ACID REFRIGERATOR ROOM CLERK, OMEPRAZOLE,) 20 mg cpDR 04/16/2022 Active take 1 tablet by mouth before me altime omeprazole OTC (PriLOSEC OTC) 20 MG EC tablet Take 20 mg by mouth in the morning. Take before meals. Do not crush, chew, or split.. Active take 1 capsule by mouth in the m orning omeprazole (PriLOSEC) 20 mg capsule Take 1 capsule (20 mg total) by mouth in the morning. Active ondansetron 4 mg disintegrating oral tablet (15 sources) Serotonin-3 Receptor Antagonist Start: 10-18-2024 End: 11-17-2024 take 1 tablet by mouth every six hours for nausea ondansetron ODT (Zofran-ODT) 4 MG disintegrating tablet Indications: Nausea and vomiting in Take 1 tablet (4 mg) by mouth every 6 (six) hours if needed for nausea or vomiting 30 tablet 2 10/18/2024 11/17/2024 Active take 1 tablet by lucy th every eight hours as needed for nausea and vomiting ondansetron ODT (ZOFRAN ODT) 4 mg disintegrating tablet Dissolve 1 tablet (4 mg total) on tongue every 8 (eight) hours as needed for nausea or vomiting. Active phentermine hydrochloride 37.5 mg oral tablet [...] 30 days. BMI 29.76 polyethylene glycol 3350 91075 mg powder for oral solution (2 sources) Osmotic Laxative Start: End: take 17 g by mouth once polyethylene glycol, PEG, 3350 (Glycolax) 17 GM/SCOOP powder Indications: Colonoscopy Take 238 g by mouth 1 (one) time for 1 dose Take as detailed from clinic hand out for colonoscopy prep 238 g 07/25/2024 07/25/2024 Active 25-IRON LYG-TGRDZ-VAZ ORAL (10 sources) take 1 tablet by mouth in the morning 25-IRON WYI-ZVQLX-NDB ORAL Take 1 tablet by mouth in the morning. Active Vit-Fe Fumarate-FA ( 19) 29-1 MG chewable tablet (20 sources) Start: Vit-Fe Fumarate-FA ( 19) 29-1 MG chewable tablet Indications: , unspecified gestational age ([facility]) Chew 1 each Daily 30 tablet 11 10/23/2024 Active Start: 10-23-2024 Vit-F e Fumarate-FA ( 19) 29-1 MG chewable tablet Indications: , unspecified gestational age Chew 1 each Daily 30 tablet 11 10/23/2024 Active valACYclovir 1000 mg oral tablet (2 sources) Herpesvirus Nucleoside Analog DNA Polymerase Inhibitor, Herpes Simplex Virus Nucleoside Analog DNA Polymerase Inhibitor, Herpes Zoster Virus Nucleoside Analog DNA Polymerase Inhibitor Start: 03-07-2024 End: 03-15-2024 take 1 tablet by mouth twice daily [...] 1 tablet by mouth Daily 30 tablet 10/17/2023 10/16/2024 Active Problems Active Problems Problem Classification Problem Date Documented Da te Episodic/Chronic Chronic obstructive pulmonary disease and bronchiectasis (2 sources) Bronchitis; Translations: [Bronchitis, not specified as acute or chronic] 08-02-2024 Episodic Diabetes mellitus without complication (2 sources) Hyperglycemia; Translations: [Hyperglycemia, unspecified] Episodic Diabetes or abnormal glucose tolerance complicating ; childbirth; or the puerperium (18 sources) Gestational diabetes mellitus; Translations: [Gestational diabetes mellitus in , unspecified control] Onset: 02-14-2025 Episodic Fluid and electrolyte disorders (1 source) [...] 06-29-2024 Episodic Other and delivery including normal (14 sources) ; Translations: [Encounter for supervision of [...] [21 weeks gestation of ] 01-10-2025 Episodic Residual codes; unclassified (2 sources) Gestation period, 26 weeks; Translations: [26 weeks gestation of ] 02-11-2025 Episodic Residual codes; unclassified (8 sources) History of sleeve gastrectomy; Translations: [Acquired absence of stomach [part of]] 02-11-2025 Episodic Residual codes; unclassified (2 sources) Gestation period, 28 weeks; Translations: [28 weeks gestation of ] 02-27-2025 Episodic Residual codes; unclassified (2 sources) Gestation period, 30 weeks; Translations: [30 weeks gestation of ] 03-13-2025 Episodic Residual codes; unclassified (2 sources) Gestation period, 32 weeks; Translations: [32 weeks gestation of ] 03-27-2025 Episodic Unclassified (20 sources) OB Reminders Onset: 10-19-2024 Unclassified (1 source) Elevated Glucose Tolerance Test Onset: Past or Other Problems Problem Classification Problem [...] Test Name Value Interpretation Reference Range Facility US OB BPP W NON-STRESS on 04-01-[address] [address] Ultrasound Report Signed Patient: CARYL ZAMARRIPA MR#: [id number] : 1990 Acct:[id number] Age/Sex: 34 / F ADM Date: 04/01/25 Loc: [facility] 250-[address]: Rosy Quiroz Ordering Physician: Rosy Quiroz Date of Service: 04/01/25 Procedure(s): US OB BPP w non-stress Accession Number(s): [id number] cc: Rosy Quiroz; Physician,Non-Staff Shimon The [address] [address] Patient Name: CARYL ZAMARRIPA MRN: [facility]:[id number] date: 1990 Sex: F Assigned Patient Location: US Current Patient Location: US Accession/Order Number: [id number] Exam Date: 04/01/2025 15:28 Report Date: 04/01/2025 15:29 At the request of: ROSY QUIROZ Procedure: US OB BPP w non-stress Biophysical profile. Reason for exam: History of gastric sleeve surgery COMPARISON: None TECHNIQUE: Transabdominal imaging of the gravid uterus was obtained. FINDINGS: The aircraft maintenance technician reports a BPP of 8 out of 8. HELLEN is normal at 10.8 cm. heart rate 125 bpm. US/US OB BPP w non-stress IMPRESSION: BPP 8 out of 8. Impression dictated by: Cy Jensen Jr., D.O. 04/01/2025 3:29 PM Dictation Location: [place] [address] Electronically authenticated by: [id number] Y Date: 04/01/2025 15:29 Dictated By: Cy Jensen M.D. Signed By: 04/01/25 1531 DD/ 1529 TD/TT: Warehouse Order Picker: [facility] Radiology, Radiologist, MD - 04/01/2025 [place] [address] Ultrasound Report Signed Patient: CARYL ZAMARRIPA MR#: [id number] : 1990 Acct:[id number] Age/Sex: 34 / F ADM Date: 04/01/25 Loc: [facility] 250-[address]: Rosy Quiroz Ordering Physician: Rosy Quiroz Date of Service: 04/01/25 Procedure(s): US OB BPP w non-stress Accession Number(s): [id number] cc: Rosy Quiroz; Physician,Non-Staff Shimon The [place] [address] Patient Name: CARYL ZAMARRIPA MRN: [facility]:[id number] date: 1990 Sex: F Assigned Patient Location: Current Patient Location: US Accession/Order Number: [id number] Exam Date: 04/01/2025 15:28 Report Date: 04/01/2025 15:29 At the request of: ROSY QUIROZ Procedure: US OB BPP w non-stress Biophysical profile. Reason for exam: History of gastric sleeve surgery COMPARISON: None TECHNIQUE: Transabdominal imaging of the gravid uterus was obtained. FINDINGS: The aircraft maintenance technician reports a BPP of 8 out of 8. HELLEN is normal at 10.8 cm. heart rate 125 bpm. US/US OB BPP w non-stress IMPRESSION: BPP 8 out of 8. Impression dictated by: Cy Jensen Jr., D.O. 04/01/2025 3:29 PM [facility]ict[facility] Electron[facility] authenticated by: [id number] Y Date: 04/01/2025 15:29 Dictated By: Cy Jensen M.D. Signed By: 04/01/25 1531 DD/ 1529 TD/TT: Warehouse Order Picker: [facility] Radiology Study observation (narrative) [facility] US OB BPP W NON-STRESS Ordered By: Radiologist Radiology on 04-01-2025 [facility] Work Phone: Urinalysis macro (dipstick) panel (U)on 03-27-2025 Bilirubin, UA Negative Negative - 4(70) +++ mg/dL [facility] Blood, UA Negative Negative - 50 Iraj/mcL [facility] Clarity, UA Clear [facility] Color, UA Yellow [facility] Glucose, UA Negative Negative - 2000(110) ++++ mg/dL [facility] Interpretation and review of laboratory results Abnormal [facility] Ketones, UA Positive Negative - 160(16) ++++ mg/dL [facility] Leukocytes, UA Few Negative - 500+++ Mari/mcL [facility] Nitrite, UA Negative Negative - Positive [facility] pH, UA 6 5 - 9 [facility] Protein, UA Few Negative - 1999(20) ++++ mg/dL [facility] Spec Grav, UA 1.03 1 - 1.03 [facility] Urobilinogen, UA 0.2 0.2 - 12 mg/dL [facility] Urinalysis macro (dipstick) panel (U)on 03-13-2025 Bilirubin, UA Negative Negative - 4(70) +++ mg/dL [facility] Blood, UA Negative Negative - 50 Iraj/mcL [facility] Clarity, UA Clear [facility] Color, UA Yellow [facility] Glucose, UA Negative Negative - 1999(110) ++++ mg/dL [facility] Interpretation and review of laboratory results Normal [facility] Ketones, UA Negative Negative - 160(16) ++++ mg/dL [facility] Leukocytes, UA Negative Negative - 500+++ Mari/mcL [facility] Nitrite, UA Negative Negative - Positive [facility] pH, UA 6 5 - 9 [facility] Protein, UA Negative Negative - 1999(20) ++++ mg/dL [facility] Spec Grav, UA 1.01 1 - 1.03 [facility] Urobilinogen, UA 1.0 0.2 - 12 mg/dL [facility] US OB FOLLOW UP TRANSABDOMIN AL APPROACHon 02-27-2025 US OB FOLLOW UP TRANSABDOMINAL APPROACH FINDINGS: A single, live intrauterine is present [...] grams +/-240 grams (3 pounds, 8 ounces). IMPRESSION: 1. Single, live [...] BY: ELECTRONICALLY SIGNED BY: Cy Douglas MD Normal Not Available Comment on above: Order Comment: US OB SCAN FOR GROWTH Estimated Date of Delivery: 05/19/25 Gestational Age as of 02/11/2025: 26w1d Urinalysis macro (dipstick) panel (U)on 02-27-2025 Bilirubin, UA Negative Negative - 4(70) +++ mg/dL [facility] Blood, UA Negative Negative - 50 Iraj/mcL [facility] Clarity, UA Clear [facility] Color, UA Colorless [facility] Glucose, UA Negative Negative - 1999(110) ++++ mg/dL [facility] Interpretation and review of laboratory results Normal [facility] Ketones, UA Negative Negative - 160(16) ++++ mg/dL [facility] Leukocytes, UA Negative Negative - 500+++ Mari/mcL [facility] Nitrite, UA Negative Negative - Positive [facility] pH, UA 6 5 - 9 [facility] Protein, UA Negative Negative - 1999(20) ++++ mg/dL [facility] Spec Grav, UA 1.01 1 - 1.03 [facility] Urobilinogen, UA 1.0 0.2 - 12 mg/dL [facility] Glucose random or fasting- P OCTon 02-14-2025 External Glucose Fasting Or Random (Fbs) [facility] Urinalysis macro (dipstick) panel (U)on 02-11-2025 Bilirubin, UA Negative Negative - 4(70) +++ mg/dL [facility] Blood, UA Negative Negative - 50 Iraj/mcL [facility] Healthcare Clarity, UA Clear [facility] Color, UA Yellow [facility] Glucose, UA Positive Negative - 1999(110) ++++ mg/dL [facility] Comment on above: 500mg/dL Interpretation and review of laboratory results Abnormal [facility] Ketones, UA Negative Negative - 160(16) ++++ mg/dL [facility] Leukocytes, UA Negative Negative - 500+++ Mari/mcL [facility] Nitrite, UA Negative Negative - Positive [facility] pH, UA 6 5 - 9 [facility] Protein, UA Negative Negative - 2000(20) ++++ mg/dL [facility] Spec Grav, UA 1.005 1 - 1.03 [facility] Urobilinogen, UA 0.2 0.2 - 12 mg/dL [facility] ALL CBC WITH AUTO DIFFon BASOPHILS ABSOLUTE AUTO 0 N [facility] Basophils/100 WBC (Bld) 0.2 % 0.2 - 2.0 % [facility] Eosinophils/100 WBC (Bld) 1.1 % 0.9 - 7.0 % [facility] Erythrocyte distribution width (RBC) [Ratio] 13.6 % 11.0 - 15.0 % [facility] IMMATURE GRANULOCYTES ABS AUTO 0.04 High [facility] Immature granulocytes/100 WBC (Bld) 0.4 % 0.0 - 0.5 % [facility] Interpretation and review of laboratory results Abnormal [facility] LYMPHOCYTES ABSOLUTE AUTO 1.2 [facility] Lymphocytes/100 WBC (Bld) 12.5 % Low 20.5 - 60.0 % [facility] MCH (RBC) [Entitic mass] 33.9 pg 26. 7 - 34.0 pg [facility] MCHC (RBC) [Mass/Vol] 33.9 g/dL 29.9 - 35.2 g/dL [facility] MCV (RBC) [Entitic vol] 100 fL High 81.0 - 99.0 fL [facility] MONOCYTES ABSOLUTE AUTO 0.4 N [facility] Monocytes/100 WBC (Bld) 3.9 % 1.7 - 12.0 % [facility] NEUTROPHILS ABSOLUTE AUTO 7.7 High [facility] Neutrophils/100 WBC (Bld) 81.9 % High 43.0 - 75.0 % [facility] Platelet mean volume (Bld) [Entitic vol] 11 fL 9.5 - 13.5 fL [facility] TBH EO # 0.1 [facility] TB PLT 172 [facility] TB RBC 3.39 Low [facility] TB WBC 9.4 [facility] Glucose 1h post 50g loadon 0 02-01-2025 Glucose, 1 hr PP 50GM dose 198 [facility] - Hematology and Cell countson 02-01-2025 Hematocrit (Bld) [Volume fraction] 33.9 % [facility] Hemoglobin (Bld) [Mass/Vol] 11.5 g/dL [facility] No Panel Informationon 02-01 [facility] US OB LIMITED 1+ FETUSESon 0 01-30-2025 US OB LIMITED 1+ FETUSES EXAM: US OB ALMANZA ITED 1+ FETUSES HISTORY: Follow up anatomy. COMPARISON: [...] tracts. Interpreted by: Electronically signed by BRITTANY FERREIRA II, MD, PHD at 01-Feb-2025 10:22:21 AM [facility] Normal Not Available Comment on above: Order Comment: US OB INCOMPLETE ANATOMY Estimated Date of Delivery: 05/19/25 Gestational Age as of 01/07/2025: 21w1d Urinalysis macro (dipstick) panel (U)on 01-10-2025 Bilirubin, UA Negative Negative - 4(70) +++ mg/dL [facility] Blood, UA Negative Negative - 50 Iraj/mcL [facility] Clarity, UA Clear [facility] Color, UA Yellow [facility] Glucose, UA Negative Negative - 2000(110) ++++ mg/dL [facility] Interpretation and review of laboratory results Abnormal [facility] Ketones, UA Positive Negative - 160(16) ++++ mg/dL [facility] Leukocytes, UA Negative Negative - 500+++ Mari/mcL [facility] Nitrite, UA Negative Negative - Positive [facility] pH, UA 6 5 - 9 [facility] Protein, UA Negative Negative - 2000(20) ++++ mg/dL [facility] Spec Grav, UA 1.01 1 - 1.03 [facility] Urobilinogen, UA 0.2 0.2 - 12 mg/dL [facility] No Panel InformationOrdered By: Radiologist Radiology on 01-02-2025 [facility] Work Phone: No Panel Informationon 01-02 Radiology Study observation (narrative) [facility] US OB ANATOMYon 01-02-[address] [address] Ultrasound Report Signed Patient: CARYL ZAMARRIPA MR#: [id number] : 1990 Acct:[id number] Age/Sex: 34 / F ADM Date: 01/02/25 Loc: US Attending Dr: Roscoe Diaz D.O. Ordering Physician: Roscoe Diaz D.O. Date of Service: 01/02/25 Procedure(s): US OB anatomy Accession Number(s): [id number] cc: Roscoe Diaz D.O.; Physician,Non-Staff Shimon [address] [address] Patient Name: CARYL ZAMARRIPA MRN: [facility]:[id number] date: 1990 Sex: F Assigned Patient Location: Current Patient Location: Accession/Order Number: [id number] Exam Date: 01/02/2025 22:40 Report Date: 01/02/2025 [...] Briscoe M.D. 01/02/2025 10:47 PM Dictation Location: [place] [address] Electronically authenticated by: [id number] Y Date: 01/02/2025 22:47 Dictated By: Suraj Briscoe D.O. Signed By: 01/02/252249 DD/ 46 TD/TT: Warehouse Order Picker: [facility] Radiology, Radiologist, - 01/02/2025 [place] [address] Ultrasound Report Signed Patient: CARYL ZAMARRIPA MR#: [id number] : 1990 Acct:[id number] Age/Sex: 34 / F ADM Date: 01/02/25 Loc: US Attending Dr: Roscoe Diaz D.O. Ordering Physician: Roscoe Diaz D.O. Date of Service: 01/02/25 Procedure(s): US OB anatomy Accession Number(s): [id number] cc: Roscoe Diaz D.O.; Physician,Non-Staff Shimon The [place] [address] Patient Name: CARYL ZAMARRIPA MRN: [facility]:[id number] date: 1990 Sex: F Assigned Patient Location: US Current Patient Location: US Accession/Order Number: [id number] Exam Date: 01/02/2025 22:40 Report Date: 01/02/2025 [...] Briscoe M.D. 01/02/2025 10:47 PM Dictation Location: [place] [address] Electronically authenticated by: [id number] Y Date: 01/02/2025 22:47 Dictated By: Suraj Briscoe D.O. Signed By: 01/02/25 2250 DD/ 2247 TD/TT: Warehouse Order Picker: [employer] OB CERVICAL LENGTHon 12-20 [place] [address] Ultrasound Report Signed Patient: CARYL ZAMARRIPA MR#: [id number] : 1990 Acct:[id number] Age/Sex: 34 / F ADM Date: 01/02/25 Loc: US Attending Dr: Roscoe Diaz D.O. Ordering Physician: Roscoe Diaz D.O. Date of Service: 01/02/25 Procedure(s): US OB cervical length Accession Number(s): [id number] cc: Roscoe Diaz D.O.; Physician,Non-Staff Shimon [address] [address] Patient Name: CARYL ZAMARRIPA MRN: [facility]:[id number] date: 1990 Sex: F Assigned Patient Location: US Current Patient Location: US Accession/Order Number: [id number] Exam Date: 01/02/2025 22:40 Report Date: 01/02/2025 [...] due date is 05/12/2025. somatic motion identified. US/ OB cervical length IMPRESSION: Single live intrauterine gestation 21 weeks 3 days. Limited assessment of right ventricular outflow track and left ventricular outflow track. Consider follow-up imaging. Remaining anatomy unremarkable. Ultrasound of cervical length The cervical length 4.5 cm. The os is closed. IMPRESSION: Cervical length 4.5 cm. Impression dictated by: Suraj Briscoe M.D. 01/02/2025 10:47 PM Dictation Location: [facility] Electronically authenticated by: [id number] Y Date: 01/02/2025 22:47 Dictated By: Suraj Briscoe D.O. Signed By: 01/02/252249 DD/ 46 TD/TT: Warehouse Order Picker: [facility] Radiology, Radiologist, - 01/02/2025 [place] [address] Ultrasound Report Signed Patient: CARYL ZAMARRIPA MR#: [id number] : 1990 Acct:[id number] Age/Sex: 34 / F ADM Date: 01/02/25 Loc: US Attending Dr: Roscoe Diaz D.O. Ordering Physician: Roscoe Diaz D.O. Date of Service: 01/02/25 Procedure(s): US OB cervical length Accession Number(s): [id number] cc: Roscoe Diaz D.O.; Physician,Non-Staff M.DCharisse The [place] [address] Patient Name: CARYL ZAMARRIPA MRN: [facility]:[id number] date: 1990 Sex: F Assigned Patient Location: Current Patient Location: Accession/Order Number: [id number] Exam Date: 01/02/2025 22:40 Report Date: 01/02/2025 [...] Briscoe M.D. 01/02/2025 10:47 PM Dictation Location: [facility] Energy Electronically authenticated by: [id number] Y Date: 01/02/2025 22:47 Dictated By: Suraj Briscoe D.O. Signed By: 01/02/252249 DD/ 46 TD/TT: Warehouse Order Picker[facility] AFP Single Marker ScrCasey guerra rnal, Serumon 12-31-2024 Ms Alpha-Fetoprotein Negative [facility] IGP,APTIMA HPV,AGE GDLNon AGE GDLN ACOG TESTING Note . [facility] Comment on above: TESTS RESULT FLAG UN ITS REF RANGE LAB Clinician Provided Cytology Information Source.............End[employer]ix Other.............. No. of containers..01 ThinPrep Vial Age Algo ACOG Enedina... 32- FLAG LEGEND: L-Low Normal,H-High Normal,LL-Alert Low,HH-Alert High <-Panic Low,>-Panic High,A-Abnormal,AA-Critical Abnormal Performed at: 01 =[address] [address] Rossy Odonnell MD, HPV APTIMA Negative Negative [facility] Comment on above: This nucleic acid am plification test detects fourteen high- risk HPV types (16,18,31,33,35,39,45,51,52,56,58,59,66,68) without differentiation. Performed at: =[address] [id number] Hydroelectric Plant Technician: Rossy Odonnell MD, Phone: [phone] Performed at: [address] [id number] [employer]electric [employer] Technician: Rossy Odonnell MD, Phone: [phone] IGP, APTIMA HPV, RFX 16/18,45 Note . [facility] Comment on above: TESTS RESULT FLAG UN ITS REF RANGE LAB DIAGNOSIS: 02 NEGATIVE FOR INTRAEPITHELIAL LESION OR MALIGNANCY. Specimen adequacy: 02 Satisfactory for evaluation. No endocervical component is identified. An endocervical component is not commonly seen in the patient. Performed by: Ronan Lucero, Vice President Of Advertising ([facility]) . 02 Note: Note 02 The Pap [...] <-Panic Low,>-Panic High,A-Abnormal,AA-Critical Abnormal Performed at: [address] [address] Rossy Odonnell MD, SPATULA-ALONE [facility]IX [facility] RECURRENT VAGINITIS (HTRX)on 12-11-2024 ATOPOBIUM VAGINAE 0 [facility] ATOPOBIUM VAGINAE Not detected [facility] BVAB 2,3 (BACTERIAL VAGINOSIS ASSOCIATED BACTERIA 2, 3); MOBILUNCUS SPP 0 [facility] BVAB 2,3 (BACTERIAL VAGINOSIS ASSOCIATED BACTERIA 2, 3); MOBILUNCUS SPP Not detected [facility] HAMILTON ALBICANS, PARAPSILOSIS, TROPICALIS 0 [facility] Healthcare [place] ALBICANS, PARAPSILOSIS, TROPICALIS Not detected [facility] [place] GLABRATA 0 [facility] H[place] GLABRATA Not detected [facility] [place] KRUSEI 0 [facility] H[place] KRUSEI Not detected [facility] CHLAMYDIA TRACHOMATIS 0 [facility] CHLAMYDIA TRACHOMATIS Not detected [facility] GARDNERELLA VAGINALIS 0 [facility] GARDNERELLA VAGINALIS Not detected [facility] MEGASPHAERA (TYPES 1, 2) 0 [facility] MEGASPHAERA (TYPES 1, 2) Not detected [facility] MYCOPLASMA GENITALIUM 0 [facility] MYCOPLASMA GENITALIUM Not detected [facility] NEISSERIA GONORRHOEAE 0 [facility] NEISSERIA GONORRHOEAE Not detected [facility] TRICHOMONAS VAGINALIS 0 [facility] TRICHOMONAS VAGINALIS Not detected N [facility] Urinalysis macro (dipstick) panel (U)on 12-10-2024 Bilirubin, UA Negative Negative - 4(70) +++ mg/dL [facility] Blood, UA Negative Negative - 50 Iraj/mcL [facility] Clarity, UA Clear [facility] Color, UA Yellow [facility] Glucose, UA Negative Negative - 1999(110) ++++ mg/dL [facility] Interpretation and review of laboratory results Normal [facility] Ketones, UA Negative Negative - 160(16) ++++ mg/dL [facility] Leukocytes, UA Trace Negative - 500+++ Mari/mcL [facility] Nitrite, UA Negative Negative - Positive [facility] pH, UA 6 5 - 9 [facility] Protein, UA Negative Negative - 1999(20) ++++ mg/dL [facility] Spec Grav, UA 1.01 1 - 1.03 [facility] Urobilinogen, UA 0.2 0.2 - 12 mg/dL [facility] Urinalysis macro (dipstick) panel (U)on 11-08-2024 Bilirubin, UA Negative Negative - 4(70) +++ mg/dL [facility] Blood, UA Negative Negative - 50 Iraj/mcL [facility] Clarity, UA Clear [facility] Color, UA Yellow [facility] Glucose, UA Negative Negative - 1999(110) ++++ mg/dL [facility] Interpretation and review of laboratory results Normal [facility] Ketones, UA Negative Negative - 160(16) ++++ mg/dL [facility] Leukocytes, UA Negative Negative - 500+++ Mari/mcL [facility] Nitrite, UA Negative Negative - Positive [facility] pH, UA 6 5 - 9 [facility] Protein, UA Negative Negative - 1999(20) ++++ mg/dL [facility] Spec Grav, UA 1.015 1 - 1.03 [facility] Urobilinogen, UA 0.2 0.2 - 12 mg/dL [facility] ALL CBC WITH AUTO DIFFon BASOPHILS ABSOLUTE AUTO 0 N [facility] Basophils/100 WBC (Bld) 0.4 % 0.2 - 2.0 % [facility] Eosinophils/100 WBC (Bld) 1.2 % 0.9 - 7.0 % [facility] Erythrocyte distribution width (RBC) [Ratio] 12.4 % 11.0 - 15.0 % [facility] IMMATURE GRANULOCYTES ABS AUTO 0.02 [facility] Immature granulocytes/100 WBC (Bld) 0.2 % 0.0 - 0.5 % [facility] Interpretation and review of laboratory results Abnormal [facility] LYMPHOCYTES ABSOLUTE AUTO 2.2 [facility] Lymphocytes/100 WBC (Bld) 27.2 % 20.5 - 60.0 % [facility] MCH (RBC) [Entitic mass] 33.5 pg 26. 7 - 34.0 pg [facility] MCHC (RBC) [Mass/Vol] 35.3 g/dL High 29.9 - 35.2 g/dL [facility] MCV (RBC) [Entitic vol] 94.9 fL 81.0 - 99.0 fL [facility] MONOCYTES ABSOLUTE AUTO 0.4 N [facility] Monocytes/100 WBC (Bld) 4.9 % 1.7 - 12.0 % [facility] NEUTROPHILS ABSOLUTE AUTO 5.4 [facility] Neutrophils/100 WBC (Bld) 66.1 % 43.0 - 75.0 % [facility] Platelet mean volume (Bld) [Entitic vol] 11.2 fL 9.5 - 13.5 fL [facility] TBH EO # 0.1 [facility] TB PLT 169 [facility] RBC 3.55 Low [facility] WBC 8.2 [facility] CBC without diffon Platelets (Bld) [#/Vol] 169 10*3/uL [facility] Rbc Mcv (Fl) By Automated Count 94.9 [facility] Drug Screen, Urineon 025 Amphetamine/Methamphetam ine Negative [facility] Barbiturates Negative [facility] Benzodiazepines Negative [facility] Cocaine Metabolite Negative [facility] Methadone Negative [facility] Opiates Negative [facility] Oxycodone Negative [facility] Phencyclidine Negative [facility] Thc Marijuana, Urine Negative [facility] Free Cell DNAon 2024 Free Cell Dna LOW RISK [facility] HBV surface Ag IA Qlon 10-19 Hepatitis B Surface Antigen Negative [facility] HCV Ab IA Qlon 10-19-2024 HCV Ab Ql (S) Non-Reactive [facility] HIV 1+2 Ab+HIV1 p24 Ag IA Ql on 10-19-2024 HIV 1&2 AB/AG Non-Reactive [facility] Hemoglobin A1con 10-19-2024 HbA1c (Bld) [Mass fraction] 5.1 % 4.0 - 6.0 % [facility] Laboratory - Hematology and Cell countson 10-19-2024 Hematocrit (Bld) [Volume fraction] 33.7 % [facility] Hemoglobin (Bld) [Mass/Vol] 11.9 g/dL [facility] No Panel Informationon 10-19 [facility] Rubella IGG immune statuson 10-19-2024 Rubella immune IgG IMMUNE [facility] T. pallidum IgG+IgM IA Ql (S )on 10-19-2024 Syphilis Non-Reactive [facility] Type and screenon 10-19-2024 Abo/Rh(D) Positive [facility] HCG ( test) Ql (U)o n 10-18-2024 Interpretation and review of laboratory results Abnormal [facility] Preg Test, Ur Positive Negative [facility] US OB TRANSVAGINALon 025 US OB TRANSVAGINAL [...] the right ovary was not visualized. Electronically Signed:Mayelin y signed by BRITTANY FERREIRA II, MD, PHD at 20-Oct-2024 07:21:51 AM [facility] Normal Not Available Comment on above: Order Comment: US OB TRANSVAGINAL No LMP recorded. Urinalysis macro (dipstick) panel (U)on 10-18-2024 Bilirubin, UA Negative Negative - 4(70) +++ mg/dL [facility] Blood, UA Negative Negative - 50 Iraj/mcL [facility] Clarity, UA Clear [facility] Color, UA Yellow [facility] Glucose, UA Negative Negative - 2000(110) ++++ mg/dL [facility] Interpretation and review of laboratory results Normal [facility] Ketones, UA Negative Negative - 160(16) ++++ mg/dL [facility] Leukocytes, UA Negative Negative - 500+++ Mari/mcL [facility] Nitrite, UA Negative Negative - Positive [facility] pH, UA 6 5 - 9 [facility] Protein, UA Negative Negative - 2000(20) ++++ mg/dL [facility] Spec Grav, UA 1.01 1 - 1.03 [facility] Urobilinogen, UA 1.0 0.2 - 12 mg/dL [facility] CNOVon 06-29-2024 CNOV Office Visit (INMAVN) CARYL ZAMARRIPA ([id number]) 1990 F Date Time Provider Department 06/29/24 12:40 PM BERENICE ZEPEDA INARJUAN During your visit today, we recorded the following information about you: Pulse Blood pressure Weight 65/minute 101/68 75.8 kg Berenice Zepeda APRN.VIRTUALIZATION ARCHITECT 06/29/2024 1:25 PM Signed Caryl Zamarripa is [...] months. - PHENTERMINE 37.5 MG TABLET Berenice Katelyn, BROWN SOURER.VIRTUALIZATION ARCHITECT Allergies As of Date: 06/29/2024 (No Known [...] days. BMI 29.58kg/m2 - Omeprazole Magnesium (ACID REFRIGERATOR ROOM CLERK, OMEPRAZOLE,) 20 mg cpDR Problem List As Of Date: 06/29/2024 (None) Prescriptions ordered this encounter Disp Refills Start End PHENTERMINE 37.5 MG TABLET 30 t* 0 06/29/2024 07/29/2024 Route: ORAL Sig: Take 1 tablet by mouth once daily for 30 days. BMI 29.58kg/m2 Encounter Status:Closed by BERENICE ZEPEDA on 06/29/24 [facility] CNOVon 08-23-2023 CNOV Office Visit (INMAVN) CARYL ZAMARRIPA ([id number]) 1990 F Date Time Provider Department 08/23/23 4:00 PM BERENICE ZEPEDA INHALEYVLee During your visit today, we recorded the following information about you: Pulse Blood pressure Weight Last Period 54/minute 121/77 77.6 kg 08/08/23 Berenice Zepeda APRN.VIRTUALIZATION ARCHITECT 08/25/2023 12:23 PM Signed Caryl Zamarripa is a 32 year [...] - PHENTERMINE 37.5 MG TABLET Berenice Zepeda APRN.VIRTUALIZATION ARCHITECT Allergies As of Date: 08/23/2023 (No Known [...] for 2 days. - Omeprazole Magnesium (ACID REFRIGERATOR ROOM CLERK, OMEPRAZOLE,) 20 mg cpDR Problem List As [...] Status:Closed by BERENICE ZEPEDA on 08/25/23 Normal [facility] CBC W Auto Differential pane l (Bld)on 07-26-2023 Basophils (Bld) [#/Vol] 0.03 10*3/uL Normal <0.11 [facility] Comment on above: Order Comment: Speci men Type: BLOOD SPECIMEN Ordering Facility: [facility] Address: [address] [place] [address] Performed By: #### 5 7021-8 #### [facility] CLIA [id number] [address] [place] [address] Basophils/100 WBC (Bld) 0.6 % Normal [facility] Comment on above: Order Comment: Speci men Type: BLOOD SPECIMEN Ordering Facility: [facility] Address: [address] [place] [id number] Performed By: #### 5 7021-8 #### [facility] CLIA [id number] [address] [place] [address] Differential cell count method Nom (Bld) Auto Normal [facility] Comment on above: Order Comment: Speci men Type: BLOOD SPECIMEN Ordering Facility: [facility] Address: [address] [place] [address] Performed By: #### 5 7021-8 #### [facility] CLIA [id number] [address] [place] [address] Eosinophils (Bld) [#/Vol] 0.13 10*3/uL Normal <0.46 [facility] Comment on above: Order Comment: Speci men Type: BLOOD SPECIMEN Ordering Facility: [facility] Address: [address] [place] [address] Performed By: #### 5 7021-8 #### [facility] CLIA [id number] [address] [place] [address] Eosinophils/100 WBC (Bld) 2.6 % Normal [facility] Comment on above: Order Comment: Speci men Type: BLOOD SPECIMEN Ordering Facility: [facility] Address: [address] [place] [address] Performed By: #### 5 7021-8 #### [facility] CLIA [id number] [address] [place] [address] Erythrocyte distribution width (RBC) [Ratio] 12.1 % Normal 11.5-15.0 [facility] Comment on above: Order Comment: Speci men Type: BLOOD SPECIMEN Ordering Facility: [facility] Address: [address] [place] [address] Performed By: #### 5 7021-8 #### [facility] CLIA [id number] [address] [place] [address] Hematocrit (Bld) [Volume fraction] 37.0 % Normal 36.0-46.0 [facility] Comment on above: Order Comment: Speci men Type: BLOOD SPECIMEN Ordering Facility: [facility] Address: [address] [place] [address] Performed By: #### 5 7021-8 #### [facility] CLIA [id number] [address] [place] [address] Hemoglobin (Bld) [Mass/Vol] 12.6 g/dL Normal 11.5-15.5 [facility] Comment on above: Order Comment: Speci men Type: BLOOD SPECIMEN Ordering Facility: [facility] Address: [address] [place] [address] Performed By: #### 5 7021-8 #### [facility] CLIA [id number] [address] [place] [address]169 Immature granulocytes (Bld) [#/Vol] 10*3/uL Normal <0.10 [facility] Comment on above: Order Comment: Speci men Type: BLOOD SPECIMEN Ordering Facility: [facility] Address: [address] [place] [address] Performed By: #### 5 7021-8 #### [facility] CLIA [id number] [address] [place] [address]019 Immature granulocytes/100 WBC (Bld) 0.2 % Normal [facility] Comment on above: Order Comment: Speci men Type: BLOOD SPECIMEN Ordering Facility: [facility] Address: [address] [place] [address] Performed By: #### 5 7021-8 #### [facility] CLIA [id number] [address] [place] [address] 07297 Lymphocytes (Bld) [#/Vol] 1.57 10*3/uL Normal 1.00-4.00 [facility] Comment on above: Order Comment: Speci men Type: BLOOD SPECIMEN Ordering Facility: [facility] Address: [address] [place] [address] Performed By: #### 5 7021-8 #### [facility] CLIA [id number] [address] [place] [address] Lymphocytes/100 WBC (Bld) 31.2 % Normal [facility] Comment on above: Order Comment: Speci men Type: BLOOD SPECIMEN Ordering Facility: [facility] Address: [address] [place] [address] Performed By: #### 5 7021-8 #### [facility] CLIA [id number] [address] [place] [address]7543 MCH (RBC) [Entitic mass] 32.2 pg Normal 26.0-34.0 [facility] Comment on above: Order Comment: Speci men Type: BLOOD SPECIMEN Ordering Facility: [facility] Address: [address] [place] [address] Performed By: #### 5 7021-8 #### [facility] CLIA [id number] [address] [place] [address]113 MCHC (RBC) [Mass/Vol] 34.1 g/dL Normal 30.5-36.0 [facility] Comment on above: Order Comment: Speci men Type: BLOOD SPECIMEN Ordering Facility: [facility] Address: [address] [place] [address] Performed By: #### 5 7021-8 #### [facility] CLIA [id number] [address] [place] [address]25 MCV (RBC) [Entitic vol] 94.6 fL Normal 80.0-100.0 [facility] Comment on above: Order Comment: Speci men Type: BLOOD SPECIMEN Ordering Facility: [facility] Address: [address] [place] [address] Performed By: #### 5 7021-8 #### [facility] CLIA [id number] [address] [place] [address] 36523 Monocytes (Bld) [#/Vol] 0.32 10*3/uL Normal <0.87 [facility] Comment on above: Order Comment: Speci men Type: BLOOD SPECIMEN Ordering Facility: [facility] Address: [address] [place] [address] Performed By: #### 5 7021-8 #### [facility] CLIA [id number] [address] [place] [address]8055 Monocytes/100 WBC (Bld) 6.3 % Normal [facility] Comment on above: Order Comment: Speci men Type: BLOOD SPECIMEN Ordering Facility: [facility] Address: [address] [place] [address] Performed By: #### 5 7021-8 #### [facility] CLIA [id number] [address] [place] [address] 28189 Neutrophils (Bld) [#/Vol] 2.98 10*3/uL Normal 1.45-7.50 [facility] Comment on above: Order Comment: Speci men Type: BLOOD SPECIMEN Ordering Facility: [facility] Address: [address] [place] [address] Performed By: #### 5 7021-8 #### [facility] CLIA [id number] [address] [place] [address] 30262 Neutrophils/100 WBC (Bld) 59.1 % Normal [facility] Comment on above: Order Comment: Speci men Type: BLOOD SPECIMEN Ordering Facility: [facility] Address: [address] [place] [address] Performed By: #### 5 7021-8 #### [facility] CLIA [id number] [address] [place] [address] 23559 Nucleated RBC (Bld) [#/Vol] 10*3/uL Normal <0.01 [facility] Comment on above: Order Comment: Speci men Type: BLOOD SPECIMEN Ordering Facility: [facility] Address: [address] [place] [address] Performed By: #### 5 7021-8 #### [facility] CLIA [id number] [address] [place] [address] 82042 Nucleated RBC/100 WBC (Bld) [Ratio] 0.0 /100 WBC Normal [facility] Comment on above: Order Comment: Speci men Type: BLOOD SPECIMEN Ordering Facility: [facility] Address: [address] [place] [address] Performed By: #### 5 7021-8 #### [facility] CLIA [id number] [address] [place] [address] 99066 Platelet mean volume (Bld) [Entitic vol] 10.6 fL Normal 9.0-12.7 [facility] Comment on above: Order Comment: Speci men Type: BLOOD SPECIMEN Ordering Facility: [facility] Address: [address] [place] [address] Performed By: #### 5 7021-8 #### [facility] CLIA [id number] [address] [place] [address] 60839 Platelets (Bld) [#/Vol] 226 10*3/uL Normal 150-400 [facility] Comment on above: Order Comment: Speci men Type: BLOOD SPECIMEN Ordering Facility: [facility] Address: [address] [place] [address] Performed By: #### 5 7021-8 #### [facility] CLIA [id number] [address] [place] [address] 22981 RBC (Bld) [#/Vol] 3.91 10*6/uL Normal 3.90-5.20 [facility] Comment on above: Order Comment: Speci men Type: BLOOD SPECIMEN Ordering Facility: [facility] Address: [address] [place] [address] Performed By: #### 5 7021-8 #### [facility] CLIA [id number] [address] [place] [address] 65250 WBC (Bld) [#/Vol] 5.04 10*3/uL Normal 3.70-11.00 [facility] Comment on above: Order Comment: Speci men Type: BLOOD SPECIMEN Ordering Facility: [facility] Address: [address] [place] [address] Performed By: #### 5 7021-8 #### [facility] CLIA [id number] [address] [place] [address] 84424 Comprehensive metabolic 2000 panelon 07-26-2023 Albumin [Mass/Vol] 4.4 g/dL Normal 3.9-4.9 [facility] Comment on above: Order Comment: Speci men Type: BLOOD SPECIMEN Ordering Facility: [facility] Address: [address] [place] [address] Performed By: #### 2 4323-8 #### [facility] CLIA [id number] [address] [place] [address] 08068 ALP [Catalytic activity/Vol] 40 U/L Normal 34-123 [facility] Comment on above: Order Comment: Speci men Type: BLOOD SPECIMEN Ordering Facility: [facility] Address: [address] [place] [address] Performed By: #### 2 4323-8 #### [facility] CLIA [id number] [address] [place] [address] 35629 ALT [Catalytic activity/Vol] 5 U/L Low 7-38 [facility] Comment on above: Order Comment: Speci men Type: BLOOD SPECIMEN Ordering Facility: [facility] Address: [address] [place] [address] Performed By: #### 2 4323-8 #### [facility] CLIA [id number] [address] [place] [address] 71947 Anion gap [Moles/Vol] 8 mmol/L Low 9-18 [facility] Comment on above: Order Comment: Speci men Type: BLOOD SPECIMEN Ordering Facility: [facility] Address: [address] [place] [address] Performed By: #### 2 4323-8 #### [facility] CLIA [id number] [address] [place] [address] 99748 AST [Catalytic activity/Vol] 7 U/L Low 13-35 [facility] Comment on above: Order Comment: Speci men Type: BLOOD SPECIMEN Ordering Facility: [facility] Address: [address] [place] [address] Performed By: #### 2 4323-8 #### [facility] CLIA [id number] [address] [place] [address] 21815 Bilirubin [Mass/Vol] 0.6 mg/dL Normal 0.2-1.3 [facility] Comment on above: Order Comment: Speci men Type: BLOOD SPECIMEN Ordering Facility: [facility] Address: [address] [place] [address] Performed By: #### 2 4323-8 #### [facility] CLIA [id number] [address] [place] [address] Calcium [Mass/Vol] 9.5 mg/dL Normal 8.5-10.2 [facility] Comment on above: Order Comment: Speci men Type: BLOOD SPECIMEN Ordering Facility: [facility] Address: [address] [place] [address] Performed By: #### 2 4323-8 #### [facility] CLIA [id number] [address] [place] [address] 39363 Chloride [Moles/Vol] 105 mmol/L Normal 97-105 [facility] Comment on above: Order Comment: Speci men Type: BLOOD SPECIMEN Ordering Facility: [facility] Address: [address] [place] [address] Performed By: #### 2 4323-8 #### [facility] CLIA [id number] [address] [place] [address] 42859 CO2 [Moles/Vol] 27 mmol/L Normal 22-30 [facility] Comment on above: Order Comment: Speci men Type: BLOOD SPECIMEN Ordering Facility: [facility] Address: [address] [place] [address] Performed By: #### 2 4323-8 #### [facility] CLIA [id number] [address] [place] [address] 29462 Creatinine [Mass/Vol] 0.76 mg/dL Normal 0.58-0.96 [facility] Comment on above: Order Comment: Speci men Type: BLOOD SPECIMEN Ordering Facility: [facility] Address: [address] [place] [address] Performed By: #### 2 4323-8 #### [facility] CLIA [id number] [address] [place] [address] 21753 Creatinine and Glomerular filtration rate.predicted panel (S/P/Bld) 108 mL/min/1.73m??? Normal >=60 [facility] Comment on above: Order Comment: Mary head Type: BLOOD SPECIMEN Ordering Facility: [facility] Address: [place] [id number] Result Comment: Erma mated Glomerular Filtration Rate [...] GFR. Performed By: #### 2 4323-8 #### [facility] CLIA [id number] [address] [place] [address] 01513 Glucose [Mass/Vol] 93 mg/dL Normal 74-99 [facility] Comment on above: Order Comment: Mary head Type: BLOOD SPECIMEN Ordering Facility: [facility] Address: [place] [id number] Result Comment: The [place] Diabetes Association (ADA) provides guidance for cutoff [...] Standards of Medical Care in Diabetes 2016, [place] Diabetes Association. Diabetes Care. 2016.39(Suppl 1). Performed By: #### 2 4323-8 #### [facility] CLIA [id number] [address] [place] [address] 41241 Potassium [Moles/Vol] 4.2 mmol/L Normal 3.7-5.1 [facility] Comment on above: Order Comment: Mary head Type: BLOOD SPECIMEN Ordering Facility: [facility] Address: [place] [id number] Performed By: #### 2 4323-8 #### [facility] CLIA [id number] [address] [place] [address] Protein [Mass/Vol] 7.2 g/dL Normal 6.3-8.0 [facility] Comment on above: Order Comment: Speci men Type: BLOOD SPECIMEN Ordering Facility: [facility] Address: [address] [place] [address] Performed By: #### 2 4323-8 #### [facility] CLIA [id number] [address] [place] [address] Sodium [Moles/Vol] 140 mmol/L Normal 136-144 [facility] Comment on above: Order Comment: Speci men Type: BLOOD SPECIMEN Ordering Facility: [facility] Address: [address] [place] [address] Performed By: #### 2 4323-8 #### [facility] CLIA [id number] [address] [place] [address] 48909 Urea nitrogen [Mass/Vol] 11 mg/dL Normal 7-21 [facility] Comment on above: Order Comment: Speci men Type: BLOOD SPECIMEN Ordering Facility: [facility] Address: [address] [place] [address] Performed By: #### 2 4323-8 #### [facility] CLIA [id number] [address] [place] [address] 31065 HBV surface Ab Ql (S)on HBV surface Ab Qn (S) <8.00 Normal [facility] Comment on above: Order Comment: Speci men Type: BLOOD SPECIMEN Ordering Facility: [facility] Address: [address] [place] [address] Result Comment: <8 m IU/mL: No serological evidence of immunity to Hepatitis B Virus. >/= 8 to <12 mIU/mL: No serological evidence of immunity to Hepatitis B Virus. >/= 12 mIU/mL: Consistent with serological evidence of immunity to Hepatitis B Virus. Performed By: #### 2 2322-2 #### [facility] CLIA [id number] [facility] [place] [address] [place] HBV surface Ab Ser Qlon HBV surface Ab Ql (S) Negative Normal [facility] Comment on above: Order Comment: Speci men Type: BLOOD SPECIMEN Ordering Facility: [facility] Address: [address] [place] [address] Result Comment: No s erological evidence of immunity to Hepatitis B Virus. Performed By: #### 2 2322-2 #### [facility] CLIA [id number] [address] [place] [address] [place] HbA1c (Bld)on 07-26-2023 Average glucose Estimated from glycated hemoglobin (Bld) [Mass/Vol] 94 mg/dL Normal [facility] Comment on above: Order Comment: Speci men Type: BLOOD SPECIMEN Ordering Facility: [facility] Address: [address] [place] [address] Result Comment: eAG: (Estimated average glucose) is a calculated value from HgbA1c and is provider service representative of the average blood glucose level in the last 2-3 month period. Performed By: #### 5 5454-3 #### [facility] CLIA [id number] [address] [place] [address] [place] [facility] HbA1c (Bld) [Mass fraction] 4.9 % Normal 4.3-5.6 [facility] Comment on above: Order Comment: Speci men Type: BLOOD SPECIMEN Ordering Facility: [facility] Address: [address] [place] [address] Result Comment: Amer [place] Diabetes Association guidelines indicate that patients with HgbA1c in the range 5.7-6.4% are at increased risk for development of diabetes, and intervention by lifestyle modification may be beneficial. HgbA1c greater or equal to 6.5% is considered diagnostic of diabetes. Performed By: #### 5 5454-3 #### [facility] CLIA [id number] [address] [place] [address] [place] Lipid 1996 panelon 3 Cholesterol [Mass/Vol] 172 mg/dL Normal <200 [facility] Comment on above: Order Comment: Speci men Type: BLOOD SPECIMEN Ordering Facility: [facility] Address: [address] [place] [address] Result Comment: <200 mg/dL, Desirable 200-239 mg/dL, Borderline high >239 mg/dL, High Performed By: #### 2 4331-1 #### [facility] CLIA [id number] [address] [facility] CLIA [id number] [address] [place] [address] Cholesterol in HDL [Mass/Vol] 58 mg/dL Normal >39 [facility] Comment on above: Order Comment: Mary men Type: BLOOD SPECIMEN Ordering Facility: [facility] Address: [address] [place] [address] Result Comment: 40-5 9 mg/dL, Acceptable >59 mg/dL, High: Negative risk factor for coronary heart disease <40 mg/dL, Low: Positive risk factor for coronary heart disease Performed By: #### 2 4331-1 #### [facility] CLIA [id number] [facility] [address] [facility] CLIA [id number] [address] [place] [address] Cholesterol in LDL [Mass/Vol] 103 mg/dL High <100 [facility] Comment on above: Order Comment: Speci men Type: BLOOD SPECIMEN Ordering Facility[facility] Address: [address] [place] [address] Result Comment: <100 mg/dL, Optimal 100-129 mg/dL, Near optimal/above optimal 130-159 mg/dL, Borderline high 160-189 mg/dL, High >189 mg/dL, Very high Secondary prevention optimal LDL Cholesterol levels are recommended to be < 70 mg/dL Performed By: #### 2 4331-1 #### [facility] CLIA [id number] [address] [facility] CLIA [id number] [address] [place] [address] Cholesterol in LDL/Cholesterol in HDL [Mass ratio] 1.78 {ratio} Normal <2.54 [facility] Comment on above: Order Comment: Micki men Type: BLOOD SPECIMEN Ordering Facility[facility] Address: [address] [place] [address] Result Comment: Elkin horta: 1. National Cholesterol Education Program ATP III Guideline At-A-Glance Quick Desk Reference: National Heart, Lung, and Blood [place]. National Institutes of Health. 2001: NIH Publication No. 01-3305. 2. An International Atherosclerosis Society position paper: global recommendations for the management of dyslipidemia: executive summary, Atherosclerosis. 2014: 232(2):410-413. Performed By: #### 2 4331-1 #### [facility] CLIA [id number] [address] [place] [address] LAB CLIA [id number] [address] [place] [address] 68059 Cholesterol in VLDL [Mass/Vol] 11 mg/dL Normal <30 [facility] Comment on above: Order Comment: Mary men Type: BLOOD SPECIMEN Ordering [facility] Address: [address] [place] [address] Performed By: #### 2 4331-1 #### [facility] CLIA [id number] [address] [place] [address] LAB CLIA [id number] [address] [place] [address] 30150 Cholesterol non HDL [Mass/Vol] 114 mg/dL Normal <130 [facility] Comment on above: Order Comment: Micki men Type: BLOOD SPECIMEN Ordering Facility[facility] Address: [address] [place] [address] Result Comment: <130 mg/dL, Optimal 130-159 mg/dL, Near optimal/above optimal 160-189 mg/dL, Borderline high 190-219 mg/dL, High >219 mg/dL, Very high Secondary prevention optimal non HDL Cholesterol levels are recommended to be <100 mg/dL Performed By: #### 2 4331-1 #### [facility] CLIA [id number] [address] [place], [place] [address] [facility] CLIA [id number] [address] [place] [address] 70091 Cholesterol.total/Choles terol in HDL [Mass ratio] 2.97 {ratio} Normal <5.10 [facility] Comment on above: Order Comment: Speci men Type: BLOOD SPECIMEN Ordering Facility[facility] Address: [address] [place] [id number] Performed By: #### 2 4331-1 #### [facility] CLIA [id number] [address] [place], [place] [address] [facility] CLIA [id number] [address] [place] [address] 97302 FASTING TIME 12 hrs Normal [facility] Comment on above: Order Comment: Speci men Type: BLOOD SPECIMEN Ordering [facility] Address: [address] [place] [phone] Performed By: #### 2 4331-1 #### [facility] CLIA [id number] [address] [place], [place] [address] [facility] CLIA [id number] [address] [place] [address] 65187 Triglyceride [Mass/Vol] 53 mg/dL Normal <150 [facility] Comment on above: Order Comment: Speci men Type: BLOOD SPECIMEN Ordering Facility[facility] Address: [address] [place] [address] Result Comment: <150 mg/dL, Normal 150-199 mg/dL, Borderline high 200-499 mg/dL, High >499 mg/dL, Very high Performed By: #### 2 4331-1 #### [facility] CLIA [id number] [facility] [place] [id number] [facility] CLIA [id number] [address] [place] [address] CNOVon 07-21-2023 CNOV Office Visit (INMAVN) CARYL ZAMARRIPA ([id number]) 1990 F Date Time Provider Department 07/21/23 4:20 PM BERENICE ZEPEDA INARJUAN During your visit today, we recorded the following information about you: Pulse Blood pressure Weight Height 60/minute 112/74 80.1 kg 1.612 m Last Period 07/09/23 Berenice Zepeda APRN.VIRTUALIZATION ARCHITECT 07/22/2023 10:16 AM Signed Caryl Zamarripa is a 32 year old female here today for review of established medical problems as well as comprehensive physical examination. Obesity S/p gastric sleeve surgery in 03/2022 at [facility] in [place] about 70lb, has reached plateau Gym 4 days per week with cardio (treadmill, elliptical) Maybe not enough water Tries to focus on more protein, lower carbs Last 10 Encounter Wt Readings: Date: Wt: 07/21/2023 80.1 kg (176 lb 8 oz) 07/06/2022 81.6 kg (180 lb) 01/15/2022 104.3 kg (230 lb) [employer]SE [employer] in [facility] Dept Implanted control HM needs: Hepatitis B Vaccine(1 of 3 - 3-dose series) Never done Depression Assessment Never done HPV Testing Never done PAST MEDICAL HISTORY Diagnosis Date GERD (gastroesophageal reflux disease) Prediabetes PAST SURGICAL HISTORY Procedure Laterality Date PT ED BARIATRIC AND METABOLIC gastric sleeve 03/2022 ALLERGIES Patient has no known allergies. 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 Sensation grossly intact. Breast/Pelvic: Per [employer] ASSESSMENT/PLAN: 1. Routine adult health maintenance - ICD9: V70.0, ICD10: Z00.00 (primary diagnosis) - Counseled on healthy diet and regular exercise - Calcium intake with supplements or by diet of 1000 mg/day for under 50, 2471-8794 mg/day for 50+ - Discussed need and benefit for weight loss. BMI 30.81 kg/(m2) - HGB A1C - COMP METABOLIC PANEL - LIPID PANEL BASIC - CBC + DIFF 2. IFG (impaired fasting glucose) - ICD9: 790.21, ICD10: (more content not included)... Normal [facility] Basophils Auto (Bld) [#/Vol] Ordered By: Reena Breaux on 10-11-2022 Basophils (Bld) [#/Vol] 0.0 10*3/uL 0.0-0.2 [facility] Basophils/100 WBC Auto (Bld) Ordered By: Reena Breaux on 10-11-2022 Basophils/100 WBC (Bld) 0.7 % . [facility] Body fluid albumin measureme nt (mass/volume)Ordered By: Reena Breaux on 10-11-2022 Albumin (Body fld) [Mass/Vol] 4.0 g/dL 3.2-5.5 [facility] CT biopsyOrdered By: Reena malhotra on 10-11-2022 Transferrin [Mass/Vol] 206 mg/dL 180-380 [facility] Complete Blood Count Auto Di ffon 10-11-2022 Basophils (Bld) [#/Vol] 0.0 10*3/uL Normal 0.0-0.2 [facility] Comment on above: Result Comment: PERF ORMED BY: [facility] [address] [place] [address] PATHOLOGIST ENGINEERING TEST MECHANIC AMANDA CALLE M.D. Performed By: #### P HOS, [id number], CMP, CBC, [id number], FE PRO, MG #### [address] #### VITB1 #### [facility] , Basophils/100 WBC (Bld) 0.7 % Normal . [facility] Comment on above: Performed By: #### P HOS, [id number], CMP, CBC, [id number], FE PRO, MG #### [address] #### VITB1 #### [facility] , Eosinophils (Bld) [#/Vol] 0.1 10*3/uL Normal 0.0-0.45 [facility] Comment on above: Performed By: #### P HOS, [id number], CMP, CBC, [id number], FE PRO, MG #### [address] #### VITB1 #### [facility] , Eosinophils/100 WBC (Bld) 1.7 % Normal . [facility] Comment on above: Performed By: #### P HOS, [id number], CMP, CBC, [id number], FE PRO, MG #### [place] [address] [place] #### VITB1 #### [facility] , Erythrocyte distribution width (RBC) [Ratio] 12.9 % Normal 11.9-15.3 [facility] Comment on above: Performed By: #### P HOS, [id number], CMP, CBC, [id number], FE PRO, MG #### [address] #### VITB1 #### [facility] , Hematocrit (Bld) [Volume fraction] 39.1 % Normal 34.0-46.4 [facility] Comment on above: Performed By: #### P HOS, [id number], CMP, CBC, [id number], FE PRO, MG #### [facility] [address] [place] [address] #### VITB1 #### [facility] , Hemoglobin (Bld) [Mass/Vol] 13.1 g/dL Normal 11.8-15.4 [facility] Comment on above: Performed By: #### P HOS, [id number], CMP, CBC, [id number], FE PRO, MG #### [facility] [address] [place] [address] #### VITB1 #### [facility] , Lymphocytes (Bld) [#/Vol] 2.7 10*3/uL Normal 1.00-4.8 [facility] Comment on above: Performed By: #### P HOS, [id number], CMP, CBC, [id number], FE PRO, MG #### [address] #### VITB1 #### [facility] , Lymphocytes/100 WBC (Bld) 39.8 % Normal . [facility] Comment on above: Performed By: #### P HOS, [id number], CMP, CBC, [id number], FE PRO, MG #### [facility] [address] [place] [address] [place] #### VITB1 #### [facility] , MCH (RBC) [Entitic mass] 31.9 pg Normal 24.7-34.3 [facility] Comment on above: Performed By: #### P HOS, [id number], CMP, CBC, [id number], FE PRO, MG #### [facility] [address] [place] [address] [place] #### VITB1 #### [facility] , MCV (RBC) [Entitic vol] 95.3 fL Normal 80-100 [facility] Comment on above: Performed By: #### P HOS, [id number], CMP, CBC, [id number], FE PRO, MG #### [facility] [address] [place] [address] #### VITB1 #### [facility] , Mean Corpuscular HGB Conc 33.5 g/dL Normal 32.0-35.0 [facility] Comment on above: Performed By: #### P HOS, [id number], CMP, CBC, [id number], FE PRO, MG #### [facility] [address] [place] [address] #### VITB1 #### [facility] , Monocytes (Bld) [#/Vol] 0.3 10*3/uL Normal 0.0-0.8 [facility] Comment on above: Performed By: #### P HOS, [id number], CMP, CBC, [id number], FE PRO, MG #### [facility] [address] [place] [address] #### VITB1 #### [facility] , Monocytes/100 WBC (Bld) 5.1 % Normal . [facility] Comment on above: Performed By: #### P HOS, [id number], CMP, CBC, [id number], FE PRO, MG #### [facility] [address] [place] [address] [place] #### VITB1 #### [facility] , Neutrophils (Bld) [#/Vol] 3.6 10*3/uL Normal 1.8-7.7 [facility] Comment on above: Performed By: #### P HOS, [id number], CMP, CBC, [id number], FE PRO, MG #### [facility] [address] [place] [address] [place] #### VITB1 #### [facility] , Neutrophils/100 WBC (Bld) 52.7 % Normal . [facility] Comment on above: Performed By: #### P HOS, [id number], CMP, CBC, [id number], FE PRO, MG #### [facility] [address] [place] [address] #### VITB1 #### [facility] , NRBC% 0.0 /100{WBC} Normal 0-0.5 [facility] Comment on above: Performed By: #### P HOS, [id number], CMP, CBC, [id number], FE PRO, MG #### [facility] [address] [place] [address] #### VITB1 #### [facility] , Platelet mean volume (Bld) [Entitic vol] 9.8 fL Normal 6.3-10.7 [facility] Comment on above: Performed By: #### P HOS, [id number], CMP, CBC, [id number], FE PRO, MG #### [facility] [address] [place] [address] #### VITB1 #### [facility] , Platelets (Bld) [#/Vol] 226 10*3/uL Normal 150-450 [facility] Comment on above: Performed By: #### P HOS, [id number], CMP, CBC, [id number], FE PRO, MG #### [facility] [address] [place] [address] [place] #### VITB1 #### [facility] , RBC (Bld) [#/Vol] 4.11 10*6/uL Normal 3.60-5.00 [facility] Comment on above: Performed By: #### P HOS, [id number], CMP, CBC, [id number], FE PRO, MG #### [facility] [address] [place] [address] [place] #### VITB1 #### [facility] , WBC (Bld) [#/Vol] 6.8 10*3/uL Normal 3.8-11.6 [facility] Comment on above: Performed By: #### P HOS, [id number], CMP, CBC, [id number], FE PRO, MG #### [facility] [address] [place] [address] #### VITB1 #### [facility] , Comprehensive Metabolic Pane nicole 10-11-2022 Albumin [Mass/Vol] 4.0 g/dL Normal 3.2-5.5 [facility] Comment on above: Performed By: #### P HOS, [id number], CMP, CBC, [id number], FE PRO, MG #### [facility] [address] [place] [address] #### VITB1 #### [facility] , Albumin/Globulin [Mass ratio] 1.4 {ratio} Normal [facility] Comment on above: Performed By: #### P HOS, [id number], CMP, CBC, [id number], FE PRO, MG #### [facility] [address] [place] [address] #### VITB1 #### [facility] , ALP [Catalytic activity/Vol] 36 U/L Normal 32-92 [facility] Comment on above: Performed By: #### P HOS, [id number], CMP, CBC, [id number], FE PRO, MG #### [facility] [address] [place] [address] #### VITB1 #### [facility] , ALT [Catalytic activity/Vol] 12 U/L Normal 10-60 [facility] Comment on above: Performed By: #### P HOS, [id number], CMP, CBC, [id number], FE PRO, MG #### [facility] [address] [place] [address] #### VITB1 #### [facility] , Anion gap [Moles/Vol] 11.6 mmol/L Normal 6.0-15.0 [facility] Comment on above: Performed By: #### P HOS, [id number], CMP, CBC, [id number], FE PRO, MG #### [facility] [address] [place] [address] [place] #### VITB1 #### [facility] , AST [Catalytic activity/Vol] 11 U/L Normal 10-42 [facility] Comment on above: Performed By: #### P HOS, [id number], CMP, CBC, [id number], FE PRO, MG #### [facility] [address] [place] [address] #### VITB1 #### [facility] , Bilirubin [Mass/Vol] 0.3 mg/dL Normal 0.3-1.2 [facility] Comment on above: Performed By: #### P HOS, [id number], CMP, CBC, [id number], FE PRO, MG #### [facility] [address] [place] [address] #### VITB1 #### [facility] , Calcium [Mass/Vol] 9.3 mg/dL Normal 8.2-10.2 [facility] Comment on above: Performed By: #### P HOS, [id number], CMP, CBC, [id number], FE PRO, MG #### [facility] [address] [place] [address] [place] #### VITB1 #### [facility] , Chloride [Moles/Vol] 103 mmol/L Normal 95-114 [facility] Comment on above: Performed By: #### P HOS, [id number], CMP, CBC, [id number], FE PRO, MG #### [facility] [address] [place] [address] #### VITB1 #### [facility] , CO2 [Moles/Vol] 26.4 mmol/L Normal 22.0-30.0 [facility] Comment on above: Performed By: #### P HOS, [id number], CMP, CBC, [id number], FE PRO, MG #### [facility] [address] [place] [address] #### VITB1 #### [facility] , Creatinine [Mass/Vol] 0.70 mg/dL Normal 0.44-1.03 [facility] Comment on above: Performed By: #### P HOS, [id number], CMP, CBC, [id number], FE PRO, MG #### [facility] [address] [place] [address] #### VITB1 #### [facility] , Estimated GFR ( Christiano > 60 Normal [facility] Comment on above: Result Comment: GFR estimated reference range: According to KDOQI guidelines, <60 ml/min/1.73m2 is sufficient to diagnose a patient with chronic kidney disease. Performed By: #### P HOS, [id number], CMP, CBC, [id number], FE PRO, MG #### [facility] [address] [place] [address] [place] #### VITB1 #### [facility] , Estimated GFR (Non- Am > 60 [facility] Comment on above: Performed By: #### P HOS, [id number], CMP, CBC, [id number], FE PRO, MG #### [facility] [address] [place] [address] [place] #### VITB1 #### [facility] , Globulin (S) [Mass/Vol] 2.8 g/dL Normal [facility] Comment on above: Performed By: #### P HOS, [id number], CMP, CBC, [id number], FE PRO, MG #### [facility] [address] [place] [address] [place] #### VITB1 #### [facility] , Glucose [Mass/Vol] 85 mg/dL Normal 70-100 [facility] Comment on above: Result Comment: [place] Glucose Reference Range is dependent on time and content of last meal. Glucose of more than 200 mg/dL in a nonstressed, ambulatory subject supports the diagnosis of Diabetes Mellitus. ADA recommended reference range Performed By: #### P HOS, [id number], CMP, CBC, [id number], FE PRO, MG #### [facility] [address] [place] [address] #### VITB1 #### [facility] , Potassium [Moles/Vol] 4.0 mmol/L Normal 3.5-5.1 [facility] Comment on above: Performed By: #### P HOS, [id number], CMP, CBC, [id number], FE PRO, MG #### [address] #### VITB1 #### [facility] , Protein [Mass/Vol] 6.8 g/dL Normal 6.1-7.9 [facility] Comment on above: Performed By: #### P HOS, [id number], CMP, CBC, [id number], FE PRO, MG #### [facility] [address] [place] [address] [place] #### VITB1 #### [facility] , Sodium [Moles/Vol] 137 mmol/L Normal 136-146 [facility] Comment on above: Performed By: #### P HOS, [id number], CMP, CBC, [id number], FE PRO, MG #### [place] [address] [place] #### VITB1 #### [facility] , Urea nitrogen [Mass/Vol] 11 mg/dL Normal 9-23 [facility] Comment on above: Performed By: #### P HOS, [id number], CMP, CBC, [id number], FE PRO, MG #### [facility] [address] [place] [address] [place] #### VITB1 #### [facility] , Creatinine and Glomerular fi ltration rate.predicted panel (S/P/Bld)Ordered By: Reena Breaux on 10-11-2022 Creatinine [Mass/Vol] 0.70 mg/dL 0.44-1.03 [facility] Eosinophils Auto (Bld) [#/Vo l]Ordered By: Reena Breaux on 10-11-2022 Eosinophils (Bld) [#/Vol] 0.1 10*3/uL 0.0-0.45 [facility] Eosinophils/100 WBC Auto (Bl d)Ordered By: Reena Breaux on 10-11-2022 Eosinophils/100 WBC (Bld) 1.7 % . [facility] Erythrocyte distribution wid th Auto (RBC) [Ratio]Ordered By: Reena Breaux on 10-11-2022 Erythrocyte distribution width (RBC) [Ratio] 12.9 % 11.9-15.3 [facility] Estimated glomerular filtrat ion rate (GFR) non- AmericanOrdered By: Reena Breaux on 10-11-2022 GFR/1.73 sq M.predicted among non-blacks MDRD (S/P/Bld) [Vol rate/Area] > 60 mL/Min [facility] FE PROon 10-11-2022 % Iron Saturation 24.0 % Normal 20-50 [facility] Comment on above: Performed By: #### P HOS, [id number], CMP, CBC, [id number], FE PRO, MG #### [facility] [address] [place] [address] [place] #### VITB1 #### [facility] , Ferritin [Mass/Vol] 29.2 ng/mL Normal 11-306.8 [facility] Comment on above: Performed By: #### P HOS, [id number], CMP, CBC, [id number], FE PRO, MG #### [facility] [address] [place] [address] [place] #### VITB1 #### [facility] , Iron [Mass/Vol] 69 ug/dL Normal 40-150 [facility] Comment on above: Performed By: #### P HOS, [id number], CMP, CBC, [id number], FE PRO, MG #### [facility] [address] [place] [address] [place] #### VITB1 #### [facility] , Total Iron Binding Capacity 288 ug/dL Normal 255-450 [facility] Comment on above: Performed By: #### P HOS, [id number], CMP, CBC, [id number], FE PRO, MG #### [facility] [address] [place] [address] [place] #### VITB1 #### [facility] , Transferrin [Mass/Vol] 206 mg/dL Normal 180-380 [facility] Comment on above: Performed By: #### P HOS, [id number], CMP, CBC, [id number], FE PRO, MG #### [facility] [address] [place] [address] [place] #### VITB1 #### [facility] , Ferritin [Mass/volume] in Se rum or PlasmaOrdered By: Reena Breaux on 10-11-2022 Ferritin [Mass/Vol] 29.2 ng/mL 11-306.8 [facility] Folate [Mass/volume] in Seru m or PlasmaOrdered By: Reena Breaux on 10-11-2022 Folate [Mass/Vol] 22.2 ng/mL >5.9 [facility] Comment on above: Folate reference ran ge: >5.9 ng/mlThe WHO technical consultation on folate and vitamin [id number] has determined that folate concentrations lessthan 4 ng/ml are considered deficient. Globulin Calc (S) [Mass/Vol] Ordered By: Reena Breaux on 10-11-2022 Globulin (S) [Mass/Vol] 2.8 g/dL [facility] Hematocrit Auto (Bld) [Volum e fraction]Ordered By: Reena Breaux on 10-11-2022 Hematocrit (Bld) [Volume fraction] 39.1 % 34.0-46.4 [facility] Hemoglobin [Mass/volume] in BloodOrdered By: Reena Breaux on 10-11-2022 Hemoglobin (Bld) [Mass/Vol] 13.1 g/dL 11.8-15.4 [facility] Iron [Mass/volume] in Serum or PlasmaOrdered By: Reena Breaux on 10-11-2022 Iron [Mass/Vol] 69 ug/dL 40-150 [facility] Iron binding capacity [Mass/ volume] in Serum or PlasmaOrdered By: Reena Breaux on 10-11-2022 Iron binding capacity [Mass/Vol] 288 ug/dL 255-450 [facility] Iron saturation [Mass Fracti on] in Serum or PlasmaOrdered By: Reena Breaux on 10-11-2022 Iron saturation [Mass fraction] 24.0 % 20-50 [facility] Laboratory - Chemistry and C hemistry - challengeOrdered By: Reena Breaux on 10-11-2022 Cobalamin (Vitamin B12) [Mass/Vol] 1437 pg/mL 180-914 [facility] Magnesium [Mass/Vol] 2.1 mg/dL 1.6-2.6 [facility] Leukocytes [#/volume] correc jakob for nucleated erythrocytes in Blood by Automated counOrdered By: Reena Breaux on 10-11-2022 WBC corrected for nucl RBC Auto (Bld) [#/Vol] 6.8 10*3/uL 3.8-11.6 [facility] Lymphocytes Auto (Bld) [#/Vo l]Ordered By: Reena Breaux on 10-11-2022 Lymphocytes (Bld) [#/Vol] 2.7 10*3/uL 1.00-4.8 [facility] Lymphocytes/100 WBC Auto (Bl d)Ordered By: Reena Breaux on 10-11-2022 Lymphocytes/100 WBC (Bld) 39.8 % . [facility] MCH Auto (RBC) [Entitic mass ]Ordered By: Reena Breaux on 10-11-2022 MCH (RBC) [Entitic mass] 31.9 pg 24.7-34.3 [facility] MCHC Auto (RBC) [Mass/Vol]Or dered By: Reena Breaux on 10-11-2022 MCHC (RBC) [Mass/Vol] 33.5 g/dL 32.0-35.0 [facility] MCV Auto (RBC) [Entitic vol] Ordered By: Reena Breaux on 10-11-2022 MCV (RBC) [Entitic vol] 95.3 fL 80-100 [facility] Magnesiumon 10-11-2022 Magnesium [Mass/Vol] 2.1 mg/dL Normal 1.6-2.6 [facility] Comment on above: Performed By: #### P HOS, [id number], CMP, CBC, [id number], FE PRO, MG #### [facility] [address] #### VITB1 #### [facility] , Monocytes Auto (Bld) [#/Vol] Ordered By: Reena Breaux on 10-11-2022 Monocytes (Bld) [#/Vol] 0.3 10*3/uL 0.0-0.8 [facility] Monocytes/100 WBC Auto (Bld) Ordered By: Reena Breaux on 10-11-2022 Monocytes/100 WBC (Bld) 5.1 % . [facility] Neutrophils Auto (Bld) [#/Vo l]Ordered By: Reena Breaux on 10-11-2022 Neutrophils (Bld) [#/Vol] 3.6 10*3/uL 1.8-7.7 [facility] Neutrophils/100 WBC Auto (Bl d)Ordered By: Reena Breaux on 10-11-2022 Neutrophils/100 WBC (Bld) 52.7 % . [facility] No Panel InformationOrdered By: Reena Breaux on 10-11-2022 25-Hydroxy Vitamin D Total 33.9 ng/mL 30-100 [facility] Comment on above: VITAMIN D STATUS 25( [place])VITAMIN D RANGE (ng/mL) Deficient <20 Insufficient 20 to <30Sufficient 30 to 100Reference: Kofi MF,Mauricio NC, Mayank CUELLAR, et al. Evaluation,treatment, and prevention of vitamin D deficiency; an Endocrine Society clinical practice guideline. JCEM. 2010; 96(7):1911-30. Estimated GFR () > 60 mL/Min [facility] Comment on above: GFR estimated refere nce range: According to KDOQI guidelines, <60 ml/min/1.73m2 is sufficient to diagnose a patient with chronic kidney disease. Pharmacy Creatinine Clearance (Chem N/A [facility] Nucleated erythrocytes [Pres ence] in Blood by Automated countOrdered By: Reena Breaux on 10-11-2022 Nucleated RBC Auto Ql (Bld) 0.0 /100{WBC} 0-0.5 [facility] Phosphate [Mass/volume] in S negro or PlasmaOrdered By: Reena Breaux on 10-11-2022 Phosphate [Mass/Vol] 3.9 mg/dL 2.5-4.6 [facility] Phosphoruson 10-11-2022 Phosphate [Mass/Vol] 3.9 mg/dL Normal 2.5-4.6 [facility] Comment on above: Performed By: #### P HOS, [id number], CMP, CBC, [id number], FE PRO, MG #### [facility] [address] #### VITB1 #### [facility] , Platelet mean volume Auto (B ld) [Entitic vol]Ordered By: Reena Breaux on 10-11-2022 Platelet mean volume (Bld) [Entitic vol] 9.8 fL 6.3-10.7 [facility] Platelets Auto (Bld) [#/Vol] Ordered By: Reena Breaux on 10-11-2022 Platelets (Bld) [#/Vol] 226 10*3/uL 150-450 [facility] Protein [Mass/volume] in Ser um or PlasmaOrdered By: Reena Breaux on 10-11-2022 Protein [Mass/Vol] 6.8 g/dL 6.1-7.9 [facility] RBC Auto (Bld) [#/Vol]Ordere d By: Reena Breaux on 10-11-2022 RBC (Bld) [#/Vol] 4.11 10*6/uL 3.60-5.00 [facility] Serum or plasma alanine doss otransferase measurement without P-5'-P (enzymatic activiOrdered By: Reena Breaux on 10-11-2022 ALT No additional P-5'-P [Catalytic activity/Vol] 12 U/L 10-60 [facility] Serum or plasma albumin/glob ulin mass ratioOrdered By: Reena Breaux on 10-11-2022 Albumin/Globulin [Mass ratio] 1.4 {ratio} [facility] Serum or plasma alkaline denis sphatase measurement (enzymatic activity/volume)Ordered By: Reena Breaux on 10-11-2022 ALP [Catalytic activity/Vol] 36 U/L 32-92 [facility] Serum or plasma anion gap de terminationOrdered By: Reena Breaux on 10-11-2022 Anion gap [Moles/Vol] 11.6 mmol/L 6.0-15.0 [facility] Serum or plasma aspartate am inotransferase measurement (enzymatic activity/volume)Ordered By: Reena Breaux on 10-11-2022 AST [Catalytic activity/Vol] 11 U/L 10-42 [facility] Serum or plasma calcium gloria urement (mass/volume)Ordered By: Reena Breaux on 10-11-2022 Calcium [Mass/Vol] 9.3 mg/dL 8.2-10.2 [facility] Serum or plasma chloride gina surement (moles/volume)Ordered By: Reena Breaux on 10-11-2022 Chloride [Moles/Vol] 103 mmol/L 95-114 [facility] Serum or plasma glucose gloria urement (mass/volume)Ordered By: Reena Breaux on 10-11-2022 Glucose [Mass/Vol] 85 mg/dL 70-100 [facility] Comment on above: ADA recommended refe rence rangeRandom Glucose Reference Range is dependent on time and content of last meal. Glucose of more than 200 mg/dL in a nonstressed, ambulatory subject supports the diagnosis of Diabetes Mellitus. Serum or plasma potassium me asurement (moles/volume)Ordered By: Reena Breaux on 10-11-2022 Potassium [Moles/Vol] 4.0 mmol/L 3.5-5.1 [facility] Serum or plasma sodium measu rement (moles/volume)Ordered By: Reena Breaux on 10-11-2022 Sodium [Moles/Vol] 137 mmol/L 136-146 [facility] Serum or plasma total biliru bin measurement (mass/volume)Ordered By: Reena Breaux on 10-11-2022 Bilirubin [Mass/Vol] 0.3 mg/dL 0.3-1.2 [facility] Serum or plasma total carbon dioxide measurement (moles/volume)Ordered By: Reena Breaux on 10-11-2022 CO2 [Moles/Vol] 26.4 mmol/L 22.0-30.0 [facility] Serum or plasma urea nitroge n measurement (mass/volume)Ordered By: Reena Breaux on 10-11-2022 Urea nitrogen [Mass/Vol] 11 mg/dL 9- [facility] Vit. B12/Folate Profileon Cobalamin (Vitamin B12) [Mass/Vol] 1437 pg/mL High 180-914 [facility] Comment on above: Performed By: #### P HOS, [id number], CMP, CBC, [id number], FE PRO, MG #### [facility] [address] [place] [address] [place] #### VITB1 #### [facility] , Folate 22.2 ng/mL Normal >5.9 [facility] Comment on above: Result Comment: [place] reference range: >5.9 ng/ml The WHO technical consultation on folate and vitamin b12 deficiencies has determined that folate concentrations less than 4 ng/ml are considered deficient. Performed By: #### P HOS, [id number], CMP, CBC, [id number], FE PRO, MG #### [facility] [address] [place] [address] [place] #### VITB1 #### [facility] , Vitamin B1 (Thiamine) Bloodo n 10-11-2022 Vitamin B1 (Thiamine) Blood 153.8 Normal 66.5-200.0 [facility] Comment on above: Result Comment: This test was developed and its performance characteristics determined by [facility]. It has not been cleared or approved by the Food and Drug Administration. Performed at: [facility] [address] [id number] [employer] Technician: Chary Soler MD, Phone: [phone] PERFORMED BY: [place] [id number] PATHOLOGIST ENGINEERING TEST MECHANIC AMANDA CALLE M.D. Performed By: #### P HOS, [id number], CMP, CBC, [id number], FE PRO, MG #### [address] #### VITB1 #### [facility] , Vitamin D 25 Hydroxy Totalon 10-11-2022 Vitamin D 25 Hydroxy Total 33.9 ng/mL Normal 30-100 [facility] Comment on above: Result Comment: [place] MIN D STATUS 25([place])VITAMIN D RANGE (ng/mL) Deficient <20 Insufficient 20 to <30 Sufficient 30 to 100 Reference: Kofi MF,Mauricio NC, Mayank CUELLAR, et al. Evaluation,treatment, and prevention of vitamin D deficiency; an Endocrine Society clinical practice guideline. JCEM. 2010; 96(7):1911-30. PERFORMED BY: [place] [address] PATHOLOGIST ENGINEERING TEST MECHANIC AMANDA ACLLE M.D. Performed By: #### P HOS, [id number], CMP, CBC, [id number], FE PRO, MG #### [address] #### VITB1 #### [facility] , WBC Auto (Bld) [#/Vol]Ordere d By: Reena Breaux on 10-11-2022 WBC (Bld) [#/Vol] 6.8 10*3/uL 3.8-11.6 [facility] Complete Blood Count Auto Di ffon 06-10-2022 Basophils (Bld) [#/Vol] 0.0 10*3/uL Normal 0.0-0.2 [facility] Comment on above: Order Comment: NOT F ASTING. JKW Result Comment: PERF ORMED BY: [place] [address] PATHOLOGIST ENGINEERING TEST MECHANIC AMANDA CALLE M.D. Performed By: #### V ITB1 #### [facility] , #### [id number], CMP, MG, FE PRO, PHOS, [id number], CBC #### [address] Basophils/100 WBC (Bld) 0.7 % Normal . [facility] Comment on above: Order Comment: NOT F ASTING. JKW Performed By: #### V ITB1 #### [facility] , #### [id number], CMP, MG, FE PRO, PHOS, [id number], CBC #### [address] Eosinophils (Bld) [#/Vol] 0.2 10*3/uL Normal 0.0-0.45 [facility] Comment on above: Order Comment: NOT F ASTING. JKW Performed By: #### V ITB1 #### [facility] , #### [id number], CMP, MG, FE PRO, PHOS, [id number], CBC #### [address] Eosinophils/100 WBC (Bld) 2.6 % Normal . [facility] Comment on above: Order Comment: NOT F ASTING. JKW Performed By: #### V ITB1 #### [facility] , #### [id number], CMP, MG, FE PRO, PHOS, [id number], CBC #### [address] Erythrocyte distribution width (RBC) [Ratio] 13.9 % Normal 11.9-15.3 [facility] Comment on above: Order Comment: NOT F ASTING. JKW Performed By: #### V ITB1 #### [facility] , #### [id number], CMP, MG, FE PRO, PHOS, [id number], CBC #### [address] Hematocrit (Bld) [Volume fraction] 39.1 % Normal 34.0-46.4 [facility] Comment on above: Order Comment: NOT F ASTING. JKW Performed By: #### V ITB1 #### [facility] , #### [id number], CMP, MG, FE PRO, PHOS, [id number], CBC #### [address] Hemoglobin (Bld) [Mass/Vol] 12.8 g/dL Normal 11.8-15.4 [facility] Comment on above: Order Comment: NOT F ASTING. JKW Performed By: #### V ITB1 #### [facility] , #### [id number], CMP, MG, FE PRO, PHOS, [id number], CBC #### [address] Lymphocytes (Bld) [#/Vol] 1.5 10*3/uL Normal 1.00-4.8 [facility] Comment on above: Order Comment: NOT F ASTING. JKW Performed By: #### V ITB1 #### [facility] , #### [id number], CMP, MG, FE PRO, PHOS, [id number], CBC #### [place] [address] [place] Lymphocytes/100 WBC (Bld) 24.6 % Normal . [facility] Comment on above: Order Comment: NOT F ASTING. JKW Performed By: #### V ITB1 #### [facility] , #### [id number], CMP, MG, FE PRO, PHOS, [id number], CBC #### [address] MCH (RBC) [Entitic mass] 31.8 pg Normal 24.7-34.3 [facility] Comment on above: Order Comment: NOT F ASTING. JKW Performed By: #### V ITB1 #### [facility] , #### [id number], CMP, MG, FE PRO, PHOS, [id number], CBC #### [address] MCV (RBC) [Entitic vol] 97.2 fL Normal 80-100 [facility] Comment on above: Order Comment: NOT F ASTING. JKW Performed By: #### V ITB1 #### [facility] , #### [id number], CMP, MG, FE PRO, PHOS, [id number], CBC #### [address] Mean Corpuscular HGB Conc 32.7 g/dL Normal 32.0-35.0 [facility] Comment on above: Order Comment: NOT F ASTING. JKW Performed By: #### V ITB1 #### [facility] , #### [id number], CMP, MG, FE PRO, PHOS, [id number], CBC #### [address] Monocytes (Bld) [#/Vol] 0.4 10*3/uL Normal 0.0-0.8 [facility] Comment on above: Order Comment: NOT F ASTING. JKW Performed By: #### V ITB1 #### [facility] , #### [id number], CMP, MG, FE PRO, PHOS, [id number], CBC #### [address] Monocytes/100 WBC (Bld) 7.3 % Normal . [facility] Comment on above: Order Comment: NOT F ASTING. JKW Performed By: #### V ITB1 #### [facility] , #### [id number], CMP, MG, FE PRO, PHOS, [id number], CBC #### [facility] [address] [place] [address] [place] Neutrophils (Bld) [#/Vol] 3.8 10*3/uL Normal 1.8-7.7 [facility] Comment on above: Order Comment: NOT F ASTING. JKW Performed By: #### V ITB1 #### [facility] , #### [id number], CMP, MG, FE PRO, PHOS, [id number], CBC #### [facility] [address] Neutrophils/100 WBC (Bld) 64.8 % Normal . [facility] Comment on above: Order Comment: NOT F ASTING. JKW Performed By: #### V ITB1 #### [facility] , #### [id number], CMP, MG, FE PRO, PHOS, [id number], CBC #### [facility] [address] [place] [address] [place] Nucleated RBC/100 WBC (Bld) [Ratio] 0.1 % Normal 0-0.5 [facility] Comment on above: Order Comment: NOT F ASTING. JKW Performed By: #### V ITB1 #### [facility] , #### [id number], CMP, MG, FE PRO, PHOS, [id number], CBC #### [facility] [address] [place] [address] [place] Platelet mean volume (Bld) [Entitic vol] 10.6 fL Normal 6.3-10.7 [facility] Comment on above: Order Comment: NOT F ASTING. JKW Performed By: #### V ITB1 #### [facility] , #### [id number], CMP, MG, FE PRO, PHOS, [id number], CBC #### [address] Platelets (Bld) [#/Vol] 237 10*3/uL Normal 150-450 [facility] Comment on above: Order Comment: NOT F ASTING. JKW Performed By: #### V ITB1 #### [facility] , #### [id number], CMP, MG, FE PRO, PHOS, [id number], CBC #### [address] RBC (Bld) [#/Vol] 4.02 10*6/uL Normal 3.60-5.00 [facility] Comment on above: Order Comment: NOT F ASTING. JKW Performed By: #### V ITB1 #### [facility] , #### [id number], CMP, MG, FE PRO, PHOS, [id number], CBC #### [address] WBC (Bld) [#/Vol] 5.9 10*3/uL Normal 4.5-11.0 [facility] Comment on above: Order Comment: NOT F ASTING. JKW Performed By: #### V ITB1 #### [facility] , #### [id number], CMP, MG, FE PRO, PHOS, [id number], CBC #### [address] Comprehensive Metabolic Pane nicole 06-10-2022 Albumin [Mass/Vol] 3.9 g/dL Normal 3.2-5.5 [facility] Comment on above: Order Comment: NOT F ASTING. JKW Performed By: #### V ITB1 #### [facility] , #### [id number], CMP, MG, FE PRO, PHOS, [id number], CBC #### [address] Albumin/Globulin [Mass ratio] 1.4 {ratio} Normal [facility] Comment on above: Order Comment: NOT F ASTING. JKW Performed By: #### V ITB1 #### [facility] , #### [id number], CMP, MG, FE PRO, PHOS, [id number], CBC #### [address] ALP [Catalytic activity/Vol] 43 U/L Normal 32-92 [facility] Comment on above: Order Comment: NOT F ASTING. JKW Performed By: #### V ITB1 #### [facility] , #### [id number], CMP, MG, FE PRO, PHOS, [id number], CBC #### [address] ALT [Catalytic activity/Vol] 12 U/L Normal 10-60 [facility] Comment on above: Order Comment: NOT F ASTING. JKW Performed By: #### V ITB1 #### [facility] , #### [id number], CMP, MG, FE PRO, PHOS, [id number], CBC #### [address] Anion gap [Moles/Vol] 11.0 mmol/L Normal 6.0-15.0 [facility] Comment on above: Order Comment: NOT F ASTING. JKW Performed By: #### V ITB1 #### [facility] , #### [id number], CMP, MG, FE PRO, PHOS, [id number], CBC #### [facility] [address] [place] [address] AST [Catalytic activity/Vol] 10 U/L Normal 10-42 [facility] Comment on above: Order Comment: NOT F ASTING. JKW Performed By: #### V ITB1 #### [facility] , #### [id number], CMP, MG, FE PRO, PHOS, [id number], CBC #### [facility] [address] Bilirubin [Mass/Vol] 0.7 mg/dL Normal 0.3-1.2 [facility] Comment on above: Order Comment: NOT F ASTING. JKW Performed By: #### V ITB1 #### [facility] , #### [id number], CMP, MG, FE PRO, PHOS, [id number], CBC #### [facility] [address] Calcium [Mass/Vol] 9.8 mg/dL Normal 8.2-10.2 [facility] Comment on above: Order Comment: NOT F ASTING. JKW Performed By: #### V ITB1 #### [facility] , #### [id number], CMP, MG, FE PRO, PHOS, [id number], CBC #### [facility] [address] Chloride [Moles/Vol] 104 mmol/L Normal 95-114 [facility] Comment on above: Order Comment: NOT F ASTING. JKW Performed By: #### V ITB1 #### [facility] , #### [id number], CMP, MG, FE PRO, PHOS, [id number], CBC #### [facility] [address] CO2 [Moles/Vol] 25.3 mmol/L Normal 22.0-30.0 [facility] Comment on above: Order Comment: NOT F ASTING. JKW Performed By: #### V ITB1 #### [facility] , #### [id number], CMP, MG, FE PRO, PHOS, [id number], CBC #### [facility] [address] Creatinine [Mass/Vol] 0.56 mg/dL Normal 0.44-1.03 [facility] Comment on above: Order Comment: NOT F ASTING. JKW Performed By: #### V ITB1 #### [facility] , #### [id number], CMP, MG, FE PRO, PHOS, [id number], CBC #### [address] Estimated GFR ( Christiano > 60 [facility] Comment on above: Order Comment: NOT F ASTING. JKW Result Comment: GFR estimated reference range: According to KDOQI guidelines, <60 ml/min/1.73m2 is sufficient to diagnose a patient with chronic kidney disease. Performed By: #### V ITB1 #### [facility] , #### [id number], CMP, MG, FE PRO, PHOS, [id number], CBC #### [address] Estimated GFR (Non- Am > 60 [facility] Comment on above: Order Comment: NOT F ASTING. JKW Performed By: #### V ITB1 #### [facility] , #### [id number], CMP, MG, FE PRO, PHOS, [id number], CBC #### [address] Globulin (S) [Mass/Vol] 2.8 g/dL Normal [facility] Comment on above: Order Comment: NOT F ASTING. JKW Performed By: #### V ITB1 #### [facility] , #### [id number], CMP, MG, FE PRO, PHOS, [id number], CBC #### [address] Glucose [Mass/Vol] 95 mg/dL Normal 70-100 [facility] Comment on above: Order Comment: NOT F ASTING. JKW Result Comment: [place] om Glucose Reference Range is dependent on time and content of last meal. Glucose of more than 200 mg/dL in a nonstressed, ambulatory subject supports the diagnosis of Diabetes Mellitus. ADA recommended reference range Performed By: #### V ITB1 #### [facility] , #### [id number], CMP, MG, FE PRO, PHOS, [id number], CBC #### [address] Potassium [Moles/Vol] 4.3 mmol/L Normal 3.5-5.1 [facility] Comment on above: Order Comment: NOT F ASTING. JKW Performed By: #### V ITB1 #### [facility] , #### [id number], CMP, MG, FE PRO, PHOS, [id number], CBC #### [address] Protein [Mass/Vol] 6.7 g/dL Normal 6.1-7.9 [facility] Comment on above: Order Comment: NOT F ASTING. JKW Performed By: #### V ITB1 #### [facility] , #### [id number], CMP, MG, FE PRO, PHOS, [id number], CBC #### [place] [id number] [facility] Sodium [Moles/Vol] 136 mmol/L Normal 136-146 [facility] Comment on above: Order Comment: NOT F ASTING. JKW Performed By: #### V ITB1 #### [facility] , #### [id number], CMP, MG, FE PRO, PHOS, [id number], CBC #### [facility] [address] [place] [address] [place] Urea nitrogen [Mass/Vol] 7 mg/dL Low 9-23 [facility] Comment on above: Order Comment: NOT F ASTING. JKW Performed By: #### V ITB1 #### [facility] , #### [id number], CMP, MG, FE PRO, PHOS, [id number], CBC #### [address] FE PROon 06-10-2021 % Iron Saturation 19.0 % Low 20-50 [facility] Comment on above: Order Comment: NOT F ASTING. JKW Performed By: #### P HOS, [id number], CMP, CBC, [id number], FE PRO, MG #### [facility] [address] [place] [address] [place] #### VITB1 #### [facility] , Ferritin [Mass/Vol] 46.7 ng/mL Normal 11-306.8 [facility] Comment on above: Order Comment: NOT F ASTING. JKW Performed By: #### P HOS, [id number], CMP, CBC, [id number], FE PRO, MG #### [address] #### VITB1 #### [facility] , Iron [Mass/Vol] 50 ug/dL Normal 40-150 [facility] Comment on above: Order Comment: NOT F ASTING. JKW Performed By: #### P HOS, [id number], CMP, CBC, [id number], FE PRO, MG #### [address] #### VITB1 #### [facility] , Total Iron Binding Capacity 260 ug/dL Normal 255-450 [facility] Comment on above: Order Comment: NOT F ASTING. JKW Performed By: #### P HOS, [id number], CMP, CBC, [id number], FE PRO, MG #### [facility] [address] [place] [address] [place] #### VITB1 #### [facility] , Transferrin [Mass/Vol] 186 mg/dL Normal 180-380 [facility] Comment on above: Order Comment: NOT F ASTING. JKW Performed By: #### P HOS, [id number], CMP, CBC, [id number], FE PRO, MG #### [facility] [address] [place] [address] [place] #### VITB1 #### [facility] , Magnesiumon 06-10-2022 Magnesium [Mass/Vol] 2.0 mg/dL Normal 1.6-2.6 [facility] Comment on above: Order Comment: NOT F ASTING. JKW Performed By: #### P HOS, [id number], CMP, CBC, [id number], FE PRO, MG #### [facility] [address] [place] [address] [place] #### VITB1 #### [facility] , Phosphoruson 06-10-2022 Phosphate [Mass/Vol] 4.1 mg/dL Normal 2.5-4.6 [facility] Comment on above: Order Comment: NOT F ASTING. JKW Performed By: #### P HOS, [id number], CMP, CBC, [id number], FE PRO, MG #### [facility] [address] [place] [address] #### VITB1 #### [facility] , Vit. B12/Folate Profileon Cobalamin (Vitamin B12) [Mass/Vol] 575 pg/mL Normal 180-914 [facility] Comment on above: Order Comment: NOT F ASTING. JKW Performed By: #### P HOS, [id number], CMP, CBC, [id number], FE PRO, MG #### [facility] [address] [place] [address] [place] #### VITB1 #### [facility] , Folate 14.3 ng/mL Normal >5.9 [facility] Comment on above: Order Comment: NOT F ASTING. JKW Result Comment: Tara te reference range: >5.9 ng/ml The WHO technical consultation on folate and vitamin b12 deficiencies has determined that folate concentrations less than 4 ng/ml are considered deficient. Performed By: #### P HOS, [id number], CMP, CBC, [id number], FE PRO, MG #### [facility] [address] [place] [address] [place] #### VITB1 #### [facility] , Vitamin B1 (Thiamine) Bloodo n 06-10-2022 Vitamin B1 (Thiamine) Blood 143.0 Normal 66.5-200.0 [facility] Comment on above: Order Comment: NOT F ASTING. JKW Result Comment: This test was developed and its performance characteristics determined by [facility]. It has not been cleared or approved by the Food and Drug Administration. Performed at: [facility] [address] [id number] [employer]electric [employer] Technician: Chary Soler MD, Phone: [phone] PERFORMED BY: [place] [address] PATHOLOGIST ENGINEERING TEST MECHANIC AMANDA CALLE M.D. Performed By: #### P HOS, [id number], CMP, CBC, [id number], FE PRO, MG #### [facility] [address] [place] [address] #### VITB1 #### [facility] , Vitamin D 25 Hydroxy Totalon 06-10-2022 Vitamin D 25 Hydroxy Total 27.8 ng/mL Low 30-100 [facility] Comment on above: Order Comment: NOT F ASTING. JKW Result Comment: JONAH MIN D STATUS 25(OH)VITAMIN D RANGE (ng/mL) Deficient <20 Insufficient 20 to <30 Sufficient 30 to 100 Reference: Kofi MF,Mauricio NC, Mayank CUELLAR, et al. Evaluation,treatment, and prevention of vitamin D deficiency; an Endocrine Society clinical practice guideline. JCEM. 2010; 96(7):1911-30. PERFORMED BY: [place] [address] PATHOLOGIST ENGINEERING TEST MECHANIC AMANDA CALLE M.D. Performed By: #### P HOS, [id number], CMP, CBC, [id number], FE PRO, MG #### [facility] [address] #### VITB1 #### [facility] , HGB A1Con 01-15-2022 Average glucose Estimated from glycated hemoglobin (Bld) [Mass/Vol] 128 mg/dL Normal [facility] Comment on above: Order Comment: [facility] Type: BLOOD SPECIMEN Ordering Facility: [facility] Address: [address] [place] [address] Result Comment: eAG: (Estimated average glucose) is a calculated value from HgbA1c and is provider service representative of the average blood glucose level in the last 2-3 month period. Performed By: #### H BA1C #### [facility] CLIA [id number] [address] [place] [address] [place] HbA1c (Bld) [Mass fraction] 6.1 % High 4.3-5.6 [facility] Comment on above: Order Comment: [facility] Type: BLOOD SPECIMEN Ordering Facility: [facility] Address: [address] [place] [address] Result Comment: Amer ican Diabetes Association guidelines indicate that patients with HgbA1c in the range 5.7-6.4% are at increased risk for development of diabetes, and intervention by lifestyle modification may be beneficial. HgbA1c greater or equal to 6.5% is considered diagnostic of diabetes. Performed By: #### H BA1C #### [facility] CLIA [id number] [address] [place] [address] [place] POTASSIUM BLDon 01-15-2022 Potassium [Moles/Vol] 4.9 mmol/L Normal 3.7-5.1 [facility] Comment on above: Order Comment: [facility] Type: BLOOD SPECIMEN Ordering Facility: [facility] Address: [address] [place] [address] Performed By: #### K 1 #### [facility] CLIA [id number] [facility] [address] [place] Potassium [Moles/Vol] 4.9 mmol/L 3.7 - 5.1 mmol/L [facility] [place] Vital Signs Date Time Vital Sign Value Performing Clinician Facility 03-27-2025 14:01-0400 Body mass index (BMI) [Ratio] 36.28 kg/m2 Roscoe Joe DO Work Phone: [facility] 03-27-2025 14:01-0400 Body weight 92.9 kg Roscoe Joe DO Work Phone: [facility] 03-27-2025 14:01-0400 Diastolic blood pressure 72 mm[Hg] Roscoe Joe DO Work Phone: [facility] 03-27-2025 14:01-0400 Systolic blood pressure 116 mm[Hg] Roscoe Joe DO Work Phone: [facility] 03-13-2025 15:41-0400 Body mass index (BMI) [Ratio] 36.46 kg/m2 Rosy Oralia PA Work Phone: [facility] 03-13-2025 15:41-0400 Body weight 93.35 kg Rosy Eunice PA Work Phone: [facility] 03-13-2025 15:41-0400 Diastolic blood pressure 70 mm[Hg] Rosy Oralia PA Work Phone: [facility] 03-13-2025 15:41-0400 Systolic blood pressure 110 mm[Hg] Rosy Eunice PA Work Phone: [facility] 03-12-2025 13:35-0400 Body height 160 cm Daisha Lavoy PA-C Work Phone: [facility] 03-12-2025 13:35-0400 Body mass index (BMI) [Ratio] 36.38 kg/m2 Daisha Lavoy PA-C Work Phone: [facility] 03-12-2025 13:35-0400 Body weight 93.17 kg Daisha Lavoy PA-C Work Phone: [facility] 03-12-2025 13:35-0400 Diastolic blood pressure 57 mm[Hg] Daisha Lavoy PA-C Work Phone: [facility] 03-12-2025 13:35-0400 Heart rate 76 /min Daisha Lavoy PA-C Work Phone: [facility] 03-12-2025 13:35-0400 Systolic blood pressure 99 mm[Hg] Daisha Lavoy PA-C Work Phone: [facility] 02-27-2025 14:00-0400 Body mass index (BMI) [Ratio] 36.1 kg/m2 Roscoe Joe DO Work Phone: [facility] 02-27-2025 14:00-0400 Body weight 92.44 kg Roscoe Joe DO Work Phone: [facility] 02-27-2025 14:00-0400 Diastolic blood pressure 60 mm[Hg] Roscoe Joe DO Work Phone: [facility] 02-27-2025 14:00-0400 Systolic blood pressure 110 mm[Hg] Roscoe Joe DO Work Phone: [facility] 02-14-2025 15:17-0400 Body mass index (BMI) [Ratio] 36.21 kg/m2 Hien Giles RN Work Phone: [facility] 02-14-2025 15:17-0400 Body weight 92.72 kg Hien iGles RN Work Phone: [facility] 02-11-2025 11:36-0400 Body mass index (BMI) [Ratio] 35.87 kg/m2 Rosy KRUGER Work Phone: [facility] 02-11-2025 11:36-0400 Body weight 91.85 kg Rosy Quiroz PA Work Phone: [facility] 02-11-2025 11:36-0400 Diastolic blood pressure 60 mm[Hg] Rosy Quiroz PA Work Phone: [facility] 02-11-2025 11:36-0400 Systolic blood pressure 110 mm[Hg] Rosy Quiroz PA Work Phone: [facility] 02-07-2025 10:43-0400 Body height 160 cm Scanning External [facility] 01-10-2025 10:33-0400 Body mass index (BMI) [Ratio] 34.92 kg/m2 Roscoe Joe DO Work Phone: [facility] 01-10-2025 10:33-0400 Body weight 89.41 kg Roscoe Joe DO Work Phone: [facility] 01-10-2025 10:33-0400 Diastolic blood pressure 68 mm[Hg] Roscoe Joe DO Work Phone: [facility] 01-10-2025 10:33-0400 Systolic blood pressure 110 mm[Hg] Roscoe Joe DO Work Phone: [facility] 12-10-2024 11:23-0400 Body mass index (BMI) [Ratio] 33.66 kg/m2 Rosy KRUGER Work Phone: [facility] 12-10-2024 11:23-0400 Body weight 86.18 kg Rosy Quiroz PA Work Phone: [facility] 12-10-2024 11:23-0400 Diastolic blood pressure 70 mm[Hg] Rosy Quiroz PA Work Phone: [facility] 12-10-2024 11:23-0400 Systolic blood pressure 106 mm[Hg] Rosy Quiroz PA Work Phone: [facility] 11-08-2024 11:04-0400 Body mass index (BMI) [Ratio] 32.24 kg/m2 Roscoe Joe DO Work Phone: [facility] 11-08-2024 11:04-0400 Body weight 82.56 kg Roscoe Joe DO Work Phone: [facility] 11-08-2024 11:04-0400 Diastolic blood pressure 60 mm[Hg] Roscoe Joe DO Work Phone: [facility] 11-08-2024 11:04-0400 Systolic blood pressure 100 mm[Hg] Roscoe Joe DO Work Phone: [facility] 10-18-2024 13:54-0500 Body mass index (BMI) [Ratio] 31.38 kg/m2 Nom Nurse [facility] 10-18-2024 13:54-0500 Body weight 80.34 kg [facility] Nurse [facility] 08-02-2024 15:58-0500 Body temperature 96.8 [degF] Edu Alvarez BOARD MEMBER Work Phone: [facility] 08-02-2024 15:58-0500 Diastolic blood pressure 66 mm[Hg] Edu Alvarez BOARD MEMBER Work Phone: [facility] 08-02-2024 15:58-0500 Heart rate 88 /min Edu Alvarez BOARD MEMBER Work Phone: [facility] 08-02-2024 15:58-0500 SaO2% (BldA) [Mass fraction] 98 % Edu Alvarez BOARD MEMBER Work Phone: [facility] 08-02-2024 15:58-0500 Systolic blood pressure 106 mm[Hg] Edu Alvarez BOARD MEMBER Work Phone: [facility] 07-25-2024 14:19-0500 Body height 160 cm Sina Garner DO Work Phone: [facility] 07-25-2024 14:19-0500 Body mass index (BMI) [Ratio] 30.82 kg/m2 Sinavincent Garner DO Work Phone: [facility] 07-25-2024 14:19-0500 Body weight 78.93 kg Sina Pascual DO Work Phone: [facility] 07-25-2024 14:19-0500 Diastolic blood pressure 68 mm[Hg] Sina Pascual DO Work Phone: [facility] 07-25-2024 14:19-0500 Heart rate 68 /min Sina Pascual DO Work Phone: [facility] 07-25-2024 14:19-0500 Respiratory rate 12 /min Sina Pascual DO Work Phone: [facility] 07-25-2024 14:19-0500 SaO2% (BldA) [Mass fraction] 99 % Sina Garner DO Work Phone: [facility] 07-25-2024 14:19-0500 Systolic blood pressure 128 mm[Hg] Sina Garner DO Work Phone: [facility] 06-29-2024 12:36-0500 Body mass index (BMI) [Ratio] 29.58 kg/m2 Berenice Katelyn BROWN SOURER.VIRTUALIZATION ARCHITECT Work Phone: [facility] 06-29-2024 12:36-0500 Body weight 75.75 kg Berenice Katelyn BROWN SOURER.VIRTUALIZATION ARCHITECT Work Phone: [facility] 06-29-2024 12:36-0500 Diastolic blood pressure 68 mm[Hg] Berenice Katelyn BROWN SOURER.VIRTUALIZATION ARCHITECT Work Phone: [facility] 06-29-2024 12:36-0500 Heart rate 65 /min Berenice Katelyn BROWN SOURER.VIRTUALIZATION ARCHITECT Work Phone: [facility] 06-29-2024 12:36-0500 Systolic blood pressure 101 mm[Hg] Berenice Katelyn BROWN SOURER.VIRTUALIZATION ARCHITECT Work Phone: [facility] 09-23-2023 14:27-0500 Body height 160 cm Berenice Katelyn BROWN SOURER.VIRTUALIZATION ARCHITECT Work Phone: [facility] 09-23-2023 14:27-0500 Body weight 76.2 kg Berenice Katelyn BROWN SOURER.VIRTUALIZATION ARCHITECT Work Phone: [facility] 07-21-2023 16:05-0500 Body height 161.2 cm Berenice Katelyn BROWN SOURER.VIRTUALIZATION ARCHITECT Work Phone: [facility] 07-21-2023 16:05-0500 Body weight 80.06 kg Berenice Katelyn BROWN SOURER.VIRTUALIZATION ARCHITECT Work Phone: [facility] 07-21-2023 16:05-0500 Diastolic blood pressure 74 mm[Hg] Berenice Katelyn BROWN SOURER.VIRTUALIZATION ARCHITECT Work Phone: [facility] 07-21-2023 16:05-0500 Heart rate 60 /min Berenice Zepeda BROWN SOURER.VIRTUALIZATION ARCHITECT Work Phone: [facility] 07-21-2023 16:05-0500 Systolic blood pressure 112 mm[Hg] Berenice Zepeda BROWN SOURER.VIRTUALIZATION ARCHITECT Work Phone: [facility] 01-15-2022 11:50-0400 Body height 162.6 cm Dasha Lujan MD Work Phone: [facility] 01-15-2022 11:50-0400 Body temperature 98.01 [degF] Dasha Lujan MD Work Phone: [facility] 01-15-2022 11:50-0400 Body weight 104.33 kg Dasha Lujan MD Work Phone: [facility] 01-15-2022 11:50-0400 Diastolic blood pressure 86 mm[Hg] Dasha Lujan MD Work Phone: [facility] 01-15-2022 11:50-0400 Heart rate 65 /min Dasha Lujan MD Work Phone: [facility] 01-15-2022 11:50-0400 Respiratory rate 16 /min Dasha Lujan MD Work Phone: [facility] 01-15-2022 11:50-0400 Systolic blood pressure 124 mm[Hg] Dasha Lujan MD Work Phone: [facility] Encounters Encounter Date Encounter Type Care Provider Facility Start: 04-01-2025 End: 04-01-2025 Clinisync Result Encounter Rosy KRUGER Work Phone: [facility] External Department Unsolicited Start: 04-01-2025 End: 04-01-2025 Clinisync Result Encounter Rosy KRUGER Work Phone: [facility] External [facility] Unsolicited Start: 04-01-2025 End: 04-01-2025 Telephone encounter Blanquita Toney RN [facility] Start: 04-01-2025 End: 04-01-2025 ambulatory DAISHA MOREL [facility] Start: 04-01-2025 End: 04-01-2025 Office outpatient visit 25 minutes Daisha Morel PA-C Work Phone: [facility] Comment on above: Gestational diabetes requiring insulin (Primary Dx) Start: 03-27-2025 End: 03-27-2025 Bamboo flowsheet Roscoe Joe DO Work Phone: [facility] Start: 03-27-2025 End: 03-27-2025 Bamboo flowsheet Roscoe Joe DO Work Phone: [facility] Start: 03-27-2025 End: 03-27-2025 flow sheet Roscoe Joe DO Work Phone: [facility] Comment on above: Third trimester preg piper ([facility]); H/O gastric sleeve; Gestational diabetes mellitus (GDM), antepartum, gestational diabetes method of control unspecified ([facility]); 32 weeks gestation of ([facility]) Start: 03-27-2025 End: 03-27-2025 ambulatory ROSCOE JOE Not Available Start: 03-26-2025 End: 03-26-2025 Telephone encounter Devika MADLONADO Work Phone: [facility] Start: 03-19-2025 End: 03-19-2025 Telephone encounter Fatimah MALDONADO [facility] Start: 03-13-2025 End: 03-13-2025 flow sheet Rosy KRUGER Work Phone: [facility] Comment on above: 30 weeks gestation o f ([facility]); Third trimester ([facility]); H/O gastric sleeve; Gestational diabetes mellitus (GDM), antepartum, gestational diabetes method of control unspecified ([facility]) Start: 03-13-2025 End: 03-13-2025 ambulatory ROSY QUIROZ Not Available Start: 03-13-2025 End: 03-13-2025 Bamboo flowsheet Rosy KRUGER Work Phone: [facility] Start: 03-13-2025 End: 03-13-2025 Bamboo flowsheet Rosy KRUGER Work Phone: [facility] Start: 03-12-2025 End: 03-12-2025 ambulatory [facility] Start: 03-12-2025 End: 03-12-2025 Office outpatient visit 25 minutes [facility] Emelia Freedman JULIENNE Work Phone: [facility] Comment on above: Gestational diabetes mellitus (GDM) in second trimester, gestational diabetes method of control unspecified (Primary Dx); Gestational diabetes requiring insulin Start: 03-05-2025 End: 03-05-2025 Telephone encounter Devika MALDONADO Work Phone: [facility] Start: 02-27-2025 End: 02-27-2025 flow sheet Roscoe Joe DO Work Phone: [facility] Comment on above: 28 weeks gestation o f ([facility]); Third trimester ([facility]); H/O gastric sleeve; Gestational diabetes mellitus (GDM), antepartum, gestational diabetes method of control unspecified ([facility]) Start: 02-27-2025 End: 02-27-2025 ambulatory ROSCOE JOE Not Available Start: 02-26-2025 End: 02-26-2025 Telephone encounter Devika MALDONADO Work Phone: [facility] Start: 02-14-2025 End: 02-14-2025 ambulatory Hien Giles RN Work Phone: [facility] Comment on above: Gestational diabetes mellitus (GDM) in second trimester, gestational diabetes method of control unspecified (Primary Dx) Start: 02-11-2025 End: 02-11-2025 flow sheet Rosy KRUGER Work Phone: [facility] Comment on above: Second trimester pre gnancy ([facility]); 26 weeks gestation of ([facility]); H/O gastric sleeve Start: 02-11-2025 End: 02-11-2025 ambulatory ROSY QUIROZ Not Available Start: 02-07-2025 End: 02-07-2025 Chart abstracting Scanning Provider External [facility] Start: 02-01-2025 End: 02-01-2025 Clinisync Result Encounter Roscoe Joe DO Work Phone: [facility] External Department Unsolicited Start: 02-01-2025 End: 02-01-2025 Clinisync Result Encounter Roscoe Joe DO Work Phone: [facility] External [facility] Unsolicited Start: 01-30-2025 End: 01-30-2025 ambulatory ROSCOE JOE Not Available Start: 01-10-2025 End: 01-10-2025 flow sheet Roscoe [...] survey Start: 12-10-2024 End: 12-10-2024 ambulatory ROSY ORALIA Not Available Start: 11-08-2024 End: 11-08-2024 Bamboo [...] GA: 9w4d Start: 10-18-2024 End: 10-18-2024 ambulatory ROSCOE JOE Not Available Start: 08-02-2024 End: 08-02-2024 ambulatory EDU ALVAREZ Not Available Start: 08-02-2024 End: 08-02-2024 Office outpatient visit 25 minutes Educhristiano Alvarez BOARD MEMBER Work Phone: [facility] Comment on above: Acute cough (Primary Dx); Chest congestion; Bronchitis Start: 07-25-2024 End: 07-25-2024 ambulatory SINA GARNER Not Available Start: 07-25-2024 End: 07-25-2024 Office outpatient new 45 minutes Sinavincent Gargett DO Work Phone: [facility] Comment on above: Rectal bleeding (Cony mike Dx) Start: 07-25-2024 End: 07-25-2024 Bamboo flowsheet Sina Pascual DO Work Phone: [facility] Start: 07-25-2024 End: 07-25-2024 Bamboo flowsheet Sina Pascual DO Work Phone: [facility] Start: 06-29-2024 End: 06-29-2024 ambulatory DASHA LUJAN Facility:[facility] Start: 06-29-2024 End: 06-29-2024 Patient encounter procedure Berenice Zepeda APRN.VIRTUALIZATION ARCHITECT Work Phone: Internal Medicine Comment on above: Encounter for weight management (Primary Dx); Overweight Start: 03-06-2024 ambulatory Berenice wheatley APRN.VIRTUALIZATION ARCHITECT Work Phone: Internal Medicine Start: 03-06-2024 Patient encounter procedure Berenice Zepeda APRN.VIRTUALIZATION ARCHITECT Work Phone: Internal Medicine Comment on above: Prescription Start: 09-23-2023 End: 09-23-2023 ambulatory Berenice Zepeda APRN.VIRTUALIZATION ARCHITECT Work Phone: Internal Medicine Comment on above: Encounter for weight management; Overweight (BMI 25.0-29.9) Start: 09-23-2023 End: 09-23-2023 Telemedicine consultation with patient Berenice Zepeda APRN.VIRTUALIZATION ARCHITECT Work Phone: [facility] Start: 08-23-2023 End: 08-23-2023 ambulatory BERENICE ZEPEDA Facility:[facility] Start: 07-26-2023 End: 07-26-2023 ambulatory DASHA LUJAN Facility:[facility] Start: 07-21-2023 End: 07-21-2023 [facility] Start: 07-21-2023 End: 07-21-2023 Patient encounter procedure Berenice Zepeda APRN.VIRTUALIZATION ARCHITECT Work Phone: Internal Medicine Comment on above: Routine adult health maintenance (Primary Dx); IFG (impaired fasting glucose); Encounter for weight management; Class 1 obesity due to excess calories with body mass index (BMI) of 30.0 to 30.9 in adult, unspecified whether serious comorbidity present; Encounter for immunization; Immunity status testing Start: 07-21-2023 End: 07-21-2023 Patient encounter status Berenice Zepeda APRN.VIRTUALIZATION ARCHITECT Work Phone: [facility] Work Phone: Start: 06-29-2023 ambulatory Dasha Lujan MD Work Phone: Internal Medicine Comment on above: Prescription Start: 10-11-2022 End: 10-11-2022 ambulatory Reena Breaux Facility:[facility] Start: 10-11-2022 End: 10-11-2022 ambulatory MD Dasha Lujan Work Phone: [facility] Work Phone: Start: 10-11-2022 End: 10-11-2022 Patient encounter procedure MD Dasha Lujan Work Phone: [facility] Start: 06-10-2022 End: 06-10-2022 ambulatory Reena Breaux Facility:[facility] Start: 01-15-2022 End: 01-15-2022 Office outpatient [...] Date Procedure Procedure Detail Performing Clinician Start: 04-01-2025 US OB BPP W NON-STRESS Rosy KRUGER Work Phone: Start: 03-27-2025 Urnls dip stick/tabl et rgnt non-auto w/o micrscp Roscoe Joe DO Work Phone: Start: 03-13-2025 Urnls dip stick/tabl et rgnt non-auto w/o micrscp Rosy KRUGER Work Phone: Start: 02-27-2025 Urnls dip stick/tabl et rgnt non-auto w/o micrscp Roscoe Joe DO Work Phone: Start: 02-14-2025 Glucose quantitative blood xcpt reagent strip Arie Piper MD Work Phone: Start: 02-11-2025 Urnls dip stick/tabl et rgnt non-auto w/o micrscp Roscoe Joe DO Work Phone: Start: 02-01-2025 Blood count hemoglobin Not In System Ref Prov Start: 02-01-2025 GLU 1H POST 50G LOAD No t In System Ref Prov Start: 02-01-2025 ALL CBC WITH AUTO DIFF Roscoe Joe DO Work Phone: Start: 01-10-2025 Urnls dip stick/tabl et rgnt non-auto w/o micrscp Roscoe Joe DO Work Phone: Start: 01-02-2025 US OB ANATOMY Roscoe Jian io DO Work Phone: Start: 01-02-2025 US OB CERVICAL LENGTH C orey Joe DO Work Phone: Start: 12-31-2024 Alpha-fetoprotein serum Not In System Ref Prov Start: 12-10-2024 RECURRENT VAGINITIS (HTRX) Rosy KRUGER [...] DIFF Roscoe Joe DO Work Phone: Start: 10-19-2024 Antibody screen Scannin g External Start: 10-19-2024 Drug scrn 1+ class nonchromo Not In System Ref Prov Start: 10-19-2024 FREE CELL DNA (NON-[facility]) Not In System Ref Prov Start: 10-19-2024 Hemoglobin glycosyla jakob a1c Scanning Provider External Start: 10-19-2024 Hepatitis c antibody No t In System Ref Prov Start: 10-19-2024 HIV 1&2 AB/AG SCREEN (P24 AG) Not In System Ref Prov Start: 10-19-2024 Iaad ia hepatitis b surface antigen Not In System Ref Prov Start: 10-19-2024 SYPHILIS TOTAL(UNKNO WN SYPHILIS STATUS) Not In System Ref Prov Start: 10-19-2024 TYPE AND SCREEN Not In System Ref Prov Start: 10-18-2024 Urnls dip stick/tabl et rgnt non-auto w/o micrscp Roscoe Joe DO Work Phone: Start: 01-15-2022 Adult depression scr eening assessment Dasha uLjan MD Work Phone: Plan of Treatment Date Care Activity Detail Author Start: 07-21-2033 DTaP,Tdap and Td Vaccines (8 - Td or Tdap) DTaP,Tdap and Td Vaccines (8 - Td or Tdap) [facility] Start: 07-21-2033 Urine microalbumin profile [facility] Start: 12-11-2027 Screening for malign ant neoplasm of cervix [facility] Start: 03-12-2026 Adult BMI Screening Adult BMI Screen ing [facility] Start: 03-12-2026 Tobacco Screening Tobacco Screening [facility] Start: 02-14-2026 Adult BMI Screening Adult BMI Screen ing [facility] Start: 04-22-2025 Influenza vaccination [facility] Start: 04-10-2025 End: 04-10-2025 Patient encounter procedure 04/10/2025 3:00 PM EDT Routine [facility] [address] [place] [phone] Roscoe Diaz DO [address] [place] [address] [facility] Start: 04-01-2025 End: 04-01-2025 Telemedicine consultation with patient 04/01/2025 10:00 AM EDT Telemedicine Maternal- Medicine at [facility] [address] [place] [id number] Daisha Morel PA-C [address] [address] [facility] Medicine at [facility] Start: 03-27-2025 End: 03-27-2025 Patient encounter procedure [facility] Comment on above: Arrived Start: 03-13-2025 End: 03-13-2025 Patient encounter procedure [facility] Comment on above: Arrived Start: 02-27-2025 End: 02-27-2025 Professional / ancillary services management 02/27/2025 1:00 PM EDT Ancillary Procedure [facility] [address] [facility] [place] [place] [phone] [facility] Start: 02-14-2025 End: 02-14-2025 ambulatory 02/14/2025 1:30 PM EDT Support Visit Maternal- Medicine at [facility] [address] [facility] [place] [address] Hien Giles RN [address] [facility] [place], [address] [place] [address], [place] [address] Devika Pope, JOEL [address] [place] [address] Maternal- Medicine at [facility] Start: 02-11-2025 End: 06-13-2025 US for US OB follow up transabdominal approach Imaging Routine H/O gastric sleeve Expected: 02/11/2025, Expires: 06/13/2025 [facility] Work Phone: Comment on above: Expected: 02/11/2025 , Expires: 06/13/2025 Start: 02-11-2025 End: 02-11-2025 Patient encounter procedure 02/11/2025 11:30 AM EDT Routine [facility] [address] [place] [phone] Rosy Quiroz PA [address] [place] [address] [facility] Start: 01-30-2025 End: 01-30-2025 Professional / ancillary services management 01/30/2025 1:00 PM EDT Ancillary Procedure [facility] [address] [place] [phone] [facility] Start: 01-15-2025 Pap Testing Pap Testing [facility] Start: 01-15-2025 Screening for malign ant neoplasm of cervix Pap Testing [facility] Start: 01-10-2025 End: 01-10-2026 CBC panel - Blood by Automated count CBC Lab Routine Diabetes mellitus screening Expected: 01/10/2025 (Approximate), Expires: 01/10/2026 [facility] Work Phone: Comment on above: Expected: 01/10/2025 (Approximate), Expires: 01/10/2026 Start: 01-10-2025 End: 01-10-2026 Measurement of glucose 1 hour after glucose challenge for glucose tolerance test Glucose tolerance, 1 hour Lab Routine Diabetes mellitus screening Expected: 01/10/2025 (Approximate), Expires: 01/10/2026 [facility] Comment on above: Expected: 01/10/2025 (Approximate), Expires: 01/10/2026 Start: 01-10-2025 End: 01-10-2025 Patient encounter procedure 01/10/2025 10:10 AM EDT Routine [facility] [address] [facility] [phone] Roscoe Diaz DO [address] [place], [place] [phone] [facility] Start: 12-10-2024 End: 01-09-2025 Alpha fetoprotein, maternal Alpha fetoprotein, maternal Lab Routine Need for maternal serum alpha-protein (MSAFP) screening Expected: 12/10/2024 (Approximate), Expires: 01/09/2025 [facility] Comment on above: Expected: 12/10/2024 (Approximate), Expires: 01/09/2025 Start: 12-10-2024 End: 03-11-2025 US for US OB 14+ weeks anatomy scan Imaging Routine Screening, , for anatomic survey Expected: 12/10/2024, Expires: 03/11/2025 [facility] Comment on above: Expected: 12/10/2024 , Expires: 03/11/2025 Start: 12-10-2024 End: 12-10-2024 Patient encounter procedure 12/10/2024 11:00 AM EDT Routine [facility] [address] [facility] [phone] Rosy Quiroz PA [address] [place] [address] Arrived [facility] Comment on above: Arrived Start: 11-08-2024 End: 11-08-2024 Patient encounter procedure 11/08/2024 10:50 AM EDT Routine [facility] [address] [facility] [phone] Roscoe Diaz, DO [address] [facility] [place] [address] [facility] Start: 10-18-2024 End: 10-18-2025 ABO/Rh ABO/Rh Lab Routine Missed menses , unspecified gestational age Expected: 10/18/2024 (Approximate), Expires: 10/18/2025 [facility] Comment on above: Expected: 10/18/2024 (Approximate), Expires: 10/18/2025 Start: 10-18-2024 End: 10-18-2025 Blood type and Indirect antibody screen panel - Blood Type and screen Lab Routine Missed menses , unspecified gestational age Expected: 10/18/2024 (Approximate), Expires: 10/18/2025 [facility] Comment on above: Expected: 10/18/2024 (Approximate), Expires: 10/18/2025 Start: 10-18-2024 End: 10-18-2025 Drugs of abuse panel - Urine by Screen method Rapid drug screen, urine Lab Routine , unspecified gestational age Encounter for supervision of normal first in first trimester Expected: 10/18/2024 (Approximate), Expires: 10/18/2025 [facility] Comment on above: Expected: 10/18/2024 (Approximate), Expires: 10/18/2025 Start: 10-18-2024 End: 10-18-2025 US Pelvis transvaginal [facility] Work Phone: Comment on above: Expected: 10/18/2024 , Expires: 10/18/2025 Start: 07-21-2024 Covid-19 Vaccine (#1) Covid-19 Vacci ne (#1) [facility] Comment on above: Postponed from 04/08 (Declined at this time) Start: 07-21-2024 Covid-19 Vaccine () Covid-19 Vaccine () [facility] Comment on above: Postponed from 04/22 (Declined at this time) Start: 04-22-2024 Covid-19 Vaccine () Covid-19 Vaccine () [facility] Start: 04-22-2024 Influenza vaccination Influenza Vacc ine (#1) [facility] Start: 02-19-2024 Influenza vaccination Influenza Vacc ine (#1) [facility] Comment on above: Postponed from 04/22 (Declined at this time) Start: 08-22-2023 Behavioral Health Screening Behavioral Health Screening [facility] Start: 08-22-2023 Depression Assessment Depression Ass essment [facility] Start: 07-21-2023 End: 10-20-2023 CBC W Auto Differential panel - Blood CBC + DIFF Lab Routine Routine adult health maintenance Expected: 07/21/2023, Expires: 10/20/2023 [facility] Work Phone: Comment on above: Expected: 07/21/2023 , Expires: 10/20/2023 Start: 07-21-2023 End: 10-20-2023 Comprehensive metabolic 2000 panel - Serum or Plasma COMP METABOLIC PANEL Lab Routine Routine adult health maintenance Expected: 07/21/2023, Expires: 10/20/2023 [facility] Work Phone: Comment on above: Expected: 07/21/2023 , Expires: 10/20/2023 Start: 07-21-2023 End: 10-20-2023 Hemoglobin A1c in Blood HGB A1C Lab Routine IFG (impaired fasting glucose) Routine adult health maintenance Expected: 07/21/2023, Expires: 10/20/2023 [facility] Work Phone: Comment on above: Expected: 07/21/2023 , Expires: 10/20/2023 Start: 07-21-2023 End: 10-20-2023 Hepatitis B virus surface Ab [Presence] in Serum HEP B SURF AB Lab Routine Immunity status testing Expected: 07/21/2023, Expires: 10/20/2023 [facility] Work Phone: Comment on above: Expected: 07/21/2023 , Expires: 10/20/2023 Start: 07-21-2023 End: 10-20-2023 Lipid 1996 panel - Serum or Plasma LIPID PANEL BASIC Lab Routine Routine adult health maintenance Expected: 07/21/2023, Expires: 10/20/2023 [facility] Work Phone: Comment on above: Expected: 07/21/2023 , Expires: 10/20/2023 Start: 07-06-2023 Hepatitis B Vaccine (1 of 3 - 3-dose series) Hepatitis B Vaccine (1 of 3 - 3-dose series) [facility] Comment on above: Postponed from 10/09 (Declined at this time) Start: 04-22-2023 Influenza vaccination Influenza Vacc ine (#1) [facility] Start: 01-15-2023 Adult depression screening assessment DEPRESSION SCREENING [facility] Start: 01-15-2023 COVID-19 VACCINE (#1) COVID-19 VACCI NE (#1) [facility] Comment on above: Postponed from 10/09 (Declined at this time) Start: 01-15-2023 PAP TESTING PAP TESTING [facility] Start: 01-15-2023 Screening for malign ant neoplasm of cervix Cervical Cancer Screening [facility] Start: 2022 HPV Testing HPV Testing [facility] Start: 2022 Screening for malign ant neoplasm of cervix [facility] Start: 08-22-2022 Depression Assessment Depression Ass essment [facility] Start: 04-22-2022 Influenza vaccination INFLUENZA (Sea son Ended) [facility] Start: 01-15-2022 End: 03-17-2022 Hemoglobin A1c/Hemoglobin.total in Blood [facility] Work Phone: Comment on above: Expected: 01/15/2022 , Expires: 03/17/2022 Start: 2013 Screening for malign ant neoplasm of cervix Pap Smear [facility] Start: 2011 DTaP,Tdap and Td Vaccines (1 - Tdap) DTaP,Tdap and Td Vaccines (1 - Tdap) [facility] Start: 2011 Urine microalbumin profile [facility] Start: 2010 Adult BMI Follow Up Plan Adult BMI Follow Up Plan [facility] Start: 2010 Adult BMI Screening Adult BMI Screen ing [facility] Start: 2010 Anxiety Screening Anxiety Screening [facility] Start: 2010 Depression Screening Depression Scre ening [facility] Start: 2004 Depression Screening Depression Scre ening [facility] Start: 2004 Tobacco Screening Tobacco Screening [facility] Start: 04-08-1993 Covid-19 Vaccine (#1) Covid-19 Vacci ne (#1) [facility] Start: 1992 Hepatitis B Vaccine (1 of 3 - 3-dose series) Hepatitis B Vaccine (1 of 3 - 3-dose series) [facility] Bacteria identified in Urine by Culture Urine culture Microbiology Routine Missed menses Ordered: 10/18/2024 [facility] Comment on above: Ordered: 10/18/2024 CBC W Auto Different ial panel - Blood CBC and differential Lab Routine Missed menses , unspecified gestational age Ordered: 10/18/2024 [facility] Comment on above: Ordered: 10/18/2024 CHLAMYDIA TRACHOMATI S (GENITO/STI) CHLAMYDIA TRACHOMATIS (GENITO/STI) Lab Routine Exposure to STD Ordered: 12/10/2024 [facility] Comment on above: Ordered: 12/10/2024 Cytology Cervical or vaginal smear or scraping study Pap Smear Pathology and Cytology Routine Well woman exam with routine gynecological exam Ordered: 12/10/2024 [facility] Comment on above: Ordered: 12/10/2024 Hemoglobin A1c/Hemoglobin.total in Blood Hemoglobin A1c Lab Routine Missed menses , unspecified gestational age Ordered: 10/18/2024 [facility] Comment on above: Ordered: 10/18/2024 Hepatitis B virus surface Ag [Presence] in Serum or Plasma by Immunoassay Hepatitis B surface antigen Lab Routine Missed menses , unspecified gestational age Ordered: 10/18/2024 [facility] Comment on above: Ordered: 10/18/2024 Hepatitis C virus Ab [Presence] in Serum or Plasma by Immunoassay Hepatitis C antibody Lab Routine Missed menses , unspecified gestational age Ordered: 10/18/2024 [facility] Comment on above: Ordered: 10/18/2024 HIV-1/HIV-2 antigen/antibody combination immunoassay HIV-1 and HIV-2 antibodies Lab Routine Missed menses , unspecified gestational age Ordered: 10/18/2024 [facility] Comment on above: Ordered: 10/18/2024 Human papilloma viru s DNA [Presence] in Unspecified specimen by Probe with amplification HPV DNA probe, amplified Microbiology Routine Well woman exam with routine gynecological exam Ordered: 12/10/2024 [facility] Comment on above: Ordered: 12/10/2024 Neisseria gonorrhoea e DNA [Presence] in Unspecified specimen by ALPA with probe detection Neisseria gonorrhea DNA probe, direct Lab Routine Exposure to STD Ordered: 12/10/2024 [facility] Comment on above: Ordered: 12/10/2024 Reagin Ab [Presence] in Serum by RPR RPR Lab Routine Missed menses , unspecified gestational age Ordered: 10/18/2024 [facility] Comment on above: Ordered: 10/18/2024 Rubella antibody, IgG Rubella an tibody, IgG Lab Routine Missed menses , unspecified gestational age Ordered: 10/18/2024 [facility] Comment on above: Ordered: 10/18/2024 SURESWAB(R) ADVANCED VAGINITIS PLUS, TMA SURESWAB(R) ADVANCED VAGINITIS PLUS, TMA Pathology and Cytology Routine Exposure to STD Ordered: 12/10/2024 [facility] Work Phone: Comment on above: Ordered: 12/10/2024 Thiamine [Moles/volu me] in Blood [facility] Immunizations Immunization Date Immunization Notes Care Provider [facility]21-2023 tetanus toxoid, redu sloane diphtheria toxoid, and acellular pertussis vaccine, adsorbed Berenice Zepeda APRN.VIRTUALIZATION ARCHITECT Work Phone: [facility] 05-03-2011 meningococcal polysaccharide (groups A, C, Y and W-135) diphtheria toxoid conjugate vaccine (MCV4P) Berenice Zepeda APRN.CNP Work Phone: [facility] 05-03-2011 tetanus toxoid, redu sloane diphtheria toxoid, and acellular pertussis vaccine, adsorbed Berenice Webbtter BROWN SOURER.VIRTUALIZATION ARCHITECT Work Phone: [facility] 03-29-2011 human papilloma viru s vaccine, quadrivalent Berenice Katelyn BROWN SOURER.VIRTUALIZATION ARCHITECT Work Phone: [facility] 11-26-2010 human papilloma viru s vaccine, quadrivalent Berenice Katelyn BROWN SOURER.VIRTUALIZATION ARCHITECT Work Phone: [facility] 09-28-2010 human papilloma viru s vaccine, quadrivalent Berenice Katelyn BROWN SOURER.VIRTUALIZATION ARCHITECT Work Phone: [facility] 04-30-1998 diphtheria, tetanus toxoids and acellular pertussis vaccine, unspecified formulation Berenice Katelyn BROWN SOURER.VIRTUALIZATION ARCHITECT Work Phone: [facility] 04-30-1998 measles, mumps and rubella virus vaccine Berenice Katelyn BROWN SOURER.VIRTUALIZATION ARCHITECT Work Phone: [facility] 04-30-1998 trivalent poliovirus vaccine, live, oral Berenice Katelyn BROWN SOURER.VIRTUALIZATION ARCHITECT Work Phone: [facility] 06-07-1994 diphtheria, tetanus toxoids and acellular pertussis vaccine, unspecified formulation Berenice Katelyn BROWN SOURER.VIRTUALIZATION ARCHITECT Work Phone: [facility] 06-07-1994 hepatitis B vaccine, pediatric or pediatric/adolescent dosage Berenice Katelyn BROWN SOURER.VIRTUALIZATION ARCHITECT Work Phone: [facility] 06-07-1994 trivalent poliovirus vaccine, live, oral Berenice Katelyn BROWN SOURER.VIRTUALIZATION ARCHITECT Work Phone: [facility] 03-01-1994 haemophilus influenz ae type b vaccine, conjugate unspecified formulation Berenice Katelyn BROWN SOURER.VIRTUALIZATION ARCHITECT Work Phone: [facility] 03-01-1994 hepatitis B vaccine, pediatric or pediatric/adolescent dosage Berenice Katelyn BROWN SOURER.VIRTUALIZATION ARCHITECT Work Phone: [facility] 03-01-1994 measles, mumps and rubella virus vaccine Berenice Katelyn BROWN SOURER.VIRTUALIZATION ARCHITECT Work Phone: [facility] 07-27-1993 diphtheria, tetanus toxoids and pertussis vaccine Berenice Katelyn BROWN SOURER.VIRTUALIZATION ARCHITECT Work Phone: [facility] 07-27-1993 haemophilus influenz ae type b vaccine, conjugate unspecified formulation Berenice Katelyn BROWN SOURER.VIRTUALIZATION ARCHITECT Work Phone: [facility] 07-27-1993 hepatitis B vaccine, pediatric or pediatric/adolescent dosage Berenice Katelyn BROWN SOURER.VIRTUALIZATION ARCHITECT Work Phone: [facility] 03-16-1993 diphtheria, tetanus toxoids and pertussis vaccine Berenice Katelyn BROWN SOURER.VIRTUALIZATION ARCHITECT Work Phone: [facility] 03-16-1993 haemophilus influenz ae type b vaccine, conjugate unspecified formulation Berenice Katelyn BROWN SOURER.VIRTUALIZATION ARCHITECT Work Phone: [facility] 03-16-1993 trivalent poliovirus vaccine, live, oral Berenice Katelyn BROWN SOURER.VIRTUALIZATION ARCHITECT Work Phone: [facility] 1992 diphtheria, tetanus toxoids and pertussis vaccine Berenice Katelyn BROWN SOURER.VIRTUALIZATION ARCHITECT Work Phone: [facility] 1992 haemophilus influenz ae type b vaccine, conjugate unspecified formulation Berenice Mirandaer BROWN SOURER.VIRTUALIZATION ARCHITECT Work Phone: [facility] 1992 trivalent poliovirus vaccine, live, oral Berenice Katelyn BROWN SOURER.VIRTUALIZATION ARCHITECT Work Phone: [facility] Payers Date Payer Category Payer [facility] [id number] 2023 Unknown [id number] 2023 Private Health Insurance [employer] [id number] 2023 Unknown [id number] 2022 Self-pay 2022 Unknown [id number] 2019 [employer] Blue Shie [employer] Managed Care - Other [id number] 2019 Unknown [employer]UE C[employer] PPO OOS [id number] 2019-Present [phone] [address] [place] [address] PPO [id number] 2019 Unknown [id number]. [id number] 1992 Unknown [id number] 2.16.840.1.992017.3.579.2. 9 1992 Unknown [id number] 2.16.840.1.952714.3.579.2. 9 1992 Unknown [id number] 2.16.840.1.188112.3.579.2. 9 1992 Unknown [id number] 2.16.840.1.210597.3.579.2. 1259 1992 Unknown [id number] 2.16.840.1.926956.3.579.2. 1259 1992 Unknown [id number] 2.16.840.1.986405.3.579.2. 9 1992 Unknown [id number] 2.16.840.1.140155.3.579.2. 1259 1992 Unknown [id number] 2.16.840.1.716537.3.579.2. 1259 1992 Unknown [id number] 2.16.840.1.207369.3.579.2. 1259 1992 Unknown [id number] 2.16.840.1.886029.3.579.2. 9 1992 Unknown [id number] 2.16.840.1.042089.3.579.2. 9 1992 Unknown [id number] 2.16840.1.840419.3.579.2. 9 1992 Unknown [id number] 2.16.840.1.367692.3.579.2. 1259 1992 Unknown [id number] 2.16.840.1.317375.3.579.2. 1286 1992 Unknown [id number] 2.16.840.1.366535.3.579.2. 1286 1992 Unknown [id number] 2.16840.1.589607.3.579.2. 1286 Unknown [id number] 2.16.840.1.981977.3.579.2. 531 Unknown [id number] 2.16.840.1.373791.3.579.2. 531 Social History Date Type Detail [facility] Start: 1990 Sex Assigned At Not on file [facility] Start: 01-15-2022 End: 10-17-2023 Tobacco smoking status ILIS Never smoked tobacco [facility] Start: 01-15-2022 End: 10-17-2023 Tobacco use and exposure Smokeless tobacco non-user [facility] Start: 01-15-2022 End: 08-23-2023 Alcohol intake Current drinker of alcohol (finding) [facility] Start: 01-15-2022 End: 07-25-2024 Alcohol intake [facility] Start: 01-12-2022 History SDOH Alcohol Frequency 2 [facility] Start: 01-12-2022 History SDOH Alcohol Std Drinks 1 [facility] Start: 01-15-2022 History SDOH Alcohol Comment occ. drink [facility] Start: 01-12-2022 History SDOH Social Connections Phone 5 [facility] Start: 01-12-2022 History SDOH Social Connections Get Together 4 [facility] Start: 01-12-2022 History SDOH Social Connections Living 7 [facility] Start: 01-12-2022 History SDOH Physical Activity MPS 3 [facility] Start: 1990 Sex Assigned At Female [facility] Start: 01-12-2022 End: 07-25-2024 Social connection and isolation panel [facility] Do you belong to any clubs or organizations such as gnosticist groups, unions, fraternal or athletic groups, or school groups? No [facility] Are you now , , , , never or living with a partner? Never [facility] How often to you hav e a drink containing alcohol? Monthly or less [facility] How many standard dr inks containing alcohol do you have on a typical day? 1 or 2 [facility] How often do you hav e 6 or more drinks on 1 occasion? Never [facility] How hard is it for y ou to pay for the very basics like food, housing, medical care, and heating Not hard at all [facility] Do you feel stress - tense, restless, nervous, or anxious, or unable to sleep at night because your mind is troubled all the time - these days [OSQ] Not at all [facility] (I/We) worried wheth er (my/our) food would run out before (I/we) got money to buy more. Never true [facility] Start: 01-12-2022 Gender identity Identifies as female gender (finding) [facility] Are you now , , , , never or living with a partner? Living with partner [facility] How hard is it for y ou to pay for the very basics like food, housing, medical care, and heating Not very hard [facility] Do you feel stress - tense, restless, nervous, or anxious, or unable to sleep at night because your mind is troubled all the time - these days [OSQ] To some extent [facility] The food that (I/we) bought just didn't last, and (I/we) didn't have money to get more. DK or Refused [facility] Start: 10-17-2023 End: 03-13-2025 Alcoholic beverage intake Ex-drinker (finding) [facility] Start: 10-17-2023 Alcohol Comment Caffeine intake: 1cup coffee/ day [facility] Start: 09-14-2023 [facility] Start: 04-22-2015 Sex Female (finding) [facility] Medical Equipment Procedure Code Equipment Code Equipment Origin al Text Equipment Identifier Dates 1 strip by In Vi tro route Daily Use in the morning prior to breakfast, 1 hour after each meal for a total of 4times daily. [id number] Start: 02-04-2025 End: 03-06-2025 1 each by In Vit ro route Daily Use to check FSBS four times daily [id number] Start: 02-04-2025 End: 03-06-2025 Use to inject insulin nightly [id number] Start: 03-12-2025 Goals Date Patient Goal Desired Activity /State Personal health goal Clinical Notes 01-08-2022 to 04-01-2025 Telephone Encounter - Blanquita Toney RN - 04/01/2025 10:34 AM EDTTelephone Encounter - Blanquita Toney RN - 04/01/2025 10:34 AM Ken Morel PA-C - 04/01/2025 10:00 AM EDTPatient Instructions Note Date & Type Note Facility 04-01-2025 Miscellaneous Notes Left message for patient to call [facility] back to reschedule a 4 week video visit shobha Marr. documented in this encounter [facility] 04-01-2025 Telephone encounter Note Left message for patient to call M back to reschedule a 4 week video visit shobha Marr. [facility] 04-01-2025 History of Present illness Narrative Maternal- Medicine Consultation VIRTUAL HISTORY OF PRESENT ILLNESS: Caryllydia Zamarripa is a 34 y.o. female at 33w1d due on Estimated Date of Delivery: 05/19/25 complicated by GDMA2. Patient is feeling well today. She denies contractions, vaginal bleeding, leaking fluid. She appreciates movement. Patient denies headache, visual symptoms, right upper abdominal pain, increase in edema, SOB, chest pain. Did not send in log prior to video visit, but read off the following levels looking at her log over video F: 84, 86, 77, 86, 84, 87 One PPL was 176, ate wendys (chicken nuggets/fries/sauce), otherwise all post prandials under 140 Is taking Lantus 10u qhs Denies any values <60 day or night. Did have BG of 67 before meal yesterday, but hadnt eaten for 4-5hrs. Denies h/o diabetes, chtn, heart or lung [...] total) by mouth in the morning., Disp: , Rfl: ondansetron ODT (ZOFRAN ODT) 4 mg disintegrating tablet, Dissolve 1 tablet (4 mg total) on tongue every 8 (eight) hours as needed for nausea or vomiting., Disp: , Rfl: pen needle, diabetic (BD ULTRA-FINE NAZ PEN NEEDLE) 32 gauge x 5/32 needle, Use to inject insulin nightly, Disp: 100 each, Rfl: 2 25-IRON [id number] ORAL, Take 1 tablet by mouth in [...] abdominal pain, nausea, vomiting, vaginal bleeding, and vaginal discharge PHYSICAL EXAMINATION: Gen: NAD DISCUSSION Glucose goals in : Fasting 60 - 95: Mean fasting glucose values are important in managing diabetes in women because they provide overall glycemic estimate, and are predictive of increased fat mass in the women s offspring. Increased fat mass has been shown [...] signs/symptoms of hypoglycemia, and examples of treatment of hypoglycemia (15/15 rule). Discussed her current diet and her [...] Delivery recommendations : - Recommend delivery at [id number] - reviewed with pateint - Discuss delivery [...] values to us weekly by e-mail to: [email or web address] or by fax to: [phone] Daisha Morel PA-C Maternal- Medicine Office phone: [phone] Daisha Morel PA-C 04/01/25 1331 documented in this encounter [facility] 04-01-2025 Miscellaneous Notes Left message to remind patient of video visit today at 10 AM. Call back number given to reschedule if unable to keep appointment. [facility] [facility] 04-01-2025 Telephone encounter Note Left message to remind patient of video visit today at 10 AM. Call back number given to reschedule if unable to keep appointment. [facility] 03-27-2025 History of Present illness Narrative Reason for [...] 81 mg, Daily Blood Glucose Monitoring Suppl ([employer] Glucometer) w/Device kit 1 kit, Does not [...] nursing note reviewed. Exam conducted with a chemical processing laborer present. Vitals: Estimated body mass index is 36.28 kg/m as calculated from the following: Height as of 24: 5' 3 . Weight as of this encounter: 204 lb 12.8 oz. BP: 116/72 Patient's last menstrual period was 08/12/2024. ASSESSMENT & PLAN ICD-10-CM 1. Third trimester ([facility]) Z34.93 POCT urinalysis dipstick manually resulted 2. H/O gastric sleeve Z90.3 POCT urinalysis dipstick manually resulted 3. Gestational diabetes mellitus (GDM), antepartum, gestational diabetes method of control unspecified ([facility]) O24.419 POCT urinalysis dipstick manually resulted 4. 32 weeks gestation of ([facility]) Z3A.32 POCT urinalysis dipstick manually resulted Return [...] routine OB appointment. Patient continues to send FSBS to [facility] and doing well and [facility] continues to manage her Lantus dosing. She will begin NST/ BPP this week. Documented by Adelaida Dugan NP on behalf of: Roscoe Diaz DO documented in this encounter [facility] 03-26-2025 Miscellaneous Notes Called regarding blood sugar logs from 03/18/2025-03/24/2025 but received voicemail. Caryl had one elevated fasting blood sugar ( she may not of had a snack the night before) and three elevated blood sugars after dinner. She is taking 10 units of Lantus in the evening. Will send a MyChart message. [facility] Telephone encounter Note Called regarding blood sugar logs from 03/18/2025-03/24/2025 but received voicemail. Caryl had one elevated fasting blood sugar ( she may not of had a snack the night before) and three elevated blood sugars after dinner. She is taking 10 units of Lantus in the evening. Will send a MyChart message. [facility] Work Phone: 03-19-2025 Miscellaneous Notes Blood glucose log from 03/11/25 to 03/17/25 received. Patient did not answer. I left a voicemail asking her to check for a new MyChart message that I am going to leave with questions about her dinner values (4 out of 7 were still elevated). Patient started Lantus on 03/12/25 and all fasting BG now in target. documented in this [facility] 03-19-2025 Telephone encounter Note Blood glucose log from 03/11/25 to 03/17/25 received. Patient did not answer. I left a voicemail asking her to check for a new MyChart message that I am going to leave with questions about her dinner values (4 out of 7 were still elevated). Patient started Lantus on 03/12/25 and all fasting BG now in target. [facility] 03-13-2025 History of Present illness Narrative Reason for Appointment: Patient ID: Caryl Zamarripa is a 34 y.o. female who presents for Routine Visit Patient presents today for Return OB appointment. MEDICATIONS Current Outpatient Medications Medication Instructions Alcohol Swabs (Alcohol Prep Pad) 70 % pads 1 Pad, Topical, Daily, Use four times daily to check FSBS. aspirin 81 mg, Daily Blood Glucose Monitoring Suppl ([employer] Glucometer) w/Device kit 1 kit, Does not [...] reviewed. Vitals: Estimated body mass index is 36.46 kg/m as calculated from the following: Height as of 24: 5' 3 . Weight as of this encounter: 205 lb 12.8 oz. BP: 110/70 Patient's last menstrual period was 08/12/2024. ASSESSMENT & PLAN ICD-10-CM 1. 30 weeks gestation of ([facility]) Z3A.30 POCT urinalysis dipstick manually resulted 2. Third trimester ([facility]) Z34.93 POCT urinalysis dipstick manually resulted 3. H/O gastric sleeve Z90.3 4. Gestational diabetes mellitus (GDM), antepartum, gestational diabetes method of control unspecified ([facility]) O24.419 Return OB: Patient presents today for a routine obstetrics appointment. Patient is currently 30w3d . Patient states she is doing well but has complaints of being tired due to current . Patient has verbalizes frequent movement. labor precautions was discussed/given and patient was instructed to perform kick counts three times a day. Orders Placed This Encounter Procedures POCT urinalysis dipstick manually resulted Follow Up: Patient is to return to office in 2 week for routine OB appointment. Documented by SLICK Matias on behalf of: SLICK Matias documented in this encounter [facility] 03-12-2025 History of Present illness Narrative Headache/epigastric pain/blurry vision/swelling? Occasional Cramping/contractions? No Spotting or vaginal bleeding? No Loss or gush of fluid like your water may have broken? No Recent ER visits or hospitalizations? No Any concerns that you would like me to mention to the provider today? No Maternal- Medicine Consultation HISTORY OF PRESENT ILLNESS: Caryl Zamarripa is a 34 y.o. female at 30w2d due on Estimated Date of Delivery: 05/19/25 complicated by GDM. Patient is feeling well today. She denies contractions, vaginal bleeding, leaking fluid. She appreciates movement. Patient denies headache, visual symptoms, right upper abdominal pain, increase in edema, SOB, chest pain. BG log review: F: 84-98, #2>95, majority above Only #1 post prandials above goal at 150 and 151, had pasta for one, fries for the other Denies any values <60 day or night Denies h/o diabetes, chtn, heart or lung disease, anemia, or any other chronic medical problems outside of . Patient works at job she stands/sits throughout day, works 630a-3p BP 99/57 Pulse 76 Ht 160 cm (5' 3 ) Wt 93.2 kg (205 lb 6.4 oz) LMP 08/12/2024 BMI 36.38 kg/m PAST OBSTETRICAL HISTORY: OB History 2 Para Term AB 1 Living SAB 1 IAB Ectopic Multiple Live Births SURGICAL HISTORY: Past Surgical History: Procedure Laterality Date BARIATRIC SURGERY STOMACH SURGERY 03/2022 GASTRIC SLEEVE ALLERGIES: No Known Allergies CURRENT MEDICATIONS: Current Outpatient Medications: omeprazole (PriLOSEC) 20 mg capsule, Take 1 capsule (20 mg total) by mouth in the morning., Disp: , Rfl: ondansetron ODT (ZOFRAN ODT) 4 mg disintegrating tablet, Dissolve 1 tablet (4 mg total) on tongue every 8 (eight) hours as needed for nausea or vomiting., Disp: , Rfl: 25-IRON ARG-VKKPD-GPT ORAL, Take 1 tablet by mouth in the morning., Disp: , Rfl: insulin glargine (LANTUS SOLOSTAR U-100 INSULIN) 100 unit/mL (3 mL) insulin pen, Inject 10 units every evening . Prime with two units., Disp: 15 mL, Rfl: 3 pen needle, diabetic (BD ULTRA-FINE NAZ PEN NEEDLE) 32 gauge x 5/32 needle, Use to inject insulin nightly, Disp: 100 each, Rfl: 2 LABS: No results found for: TSH , [...] abdominal pain, nausea, vomiting, vaginal bleeding, and vaginal discharge PHYSICAL EXAMINATION: Gen: NAD Abdomen: Gravid, non tender, +FHTs DISCUSSION Gestational diabetes is a is a state of carbohydrate intolerance with subsequently insulin resistance and hyperglycemia. This is a malfunction or dysfunction of glucose sensors in the liver with inappropriate release of glucose followed by hyperinsulinemia followed by normal insulin secretion and then relatively deficiency in insulin secretion resulting in both hyperglycemia and associated hypertriglyceridemia. This along with placental hormones such as human placental lactogen and TNF alpha cause hyperglycemia. The patient eventually develops insulin resistance and hyperglycemia Thus the patient's insulin is not sufficient to achieve a normal glycemic state. I informed the patient that maternal hyperglycemia results in hyperglycemia leading to adverse outcomes in the growth and development. We reviewed the implications and risks of diabetes in . Diabetes in is associated with poorer outcomes if blood glucose levels are not well controlled. Potential effects of uncontrolled diabetes , or hyperglycemia, include: macrosomia, hypoglycemia, shoulder dystocia, delivery by section, polyhydramnios, and demise. In addition, women with diabetes in are at increased risk of developing hypertension diseases in ,such as gestational hypertension, or preeclampsia. Patient was explained that the high risk of shoulder dystocia in fetuses with EFW 4500 gm or higher. Long-term risk to offspring from poor maternal glycemic control include: obesity, cardiovascular disease, impaired glucose tolerance and Type 2 diabetes. Treatment for diabetes in : Lifestyle modification with a healthy diet and increasing physical activity can help manage hyperglycemia, and is therefore always encouraged. We briefly discussed diet modifications and physical activity. The mainstay of pharmacotherapy for the treatment of diabetes in remains insulin. Oral hypoglycemics, such as metformin, both cross the placenta and are more likely to fail compared to insulin. jail data on children whose mothers took oral hypoglycemic agents while is limited. Medication is typically initiated when >20-30% of the blood glucose values in one week are out of range. Risks and side effects of both insulin and oral agents were discussed. In discussion of the above, patients opts to initiate long acting For now I would recommend initiation of a long acting insulin at night. Reviewed pharmacokinetics of long acting insulin. Discussed risk of hypoglycemia with insulin, however risk is low with starting at a low dose, gradual titration, and avoidance of skipping meals or prolonged fasting. Discussed she may not see an appreciable difference in her BG levels with her initial starting dose, but that we will gradually increase her dose to ideally get her BG levels to goal. Glucose goals in : Fasting 60 - 95: Mean fasting glucose values are important in managing diabetes in women because they provide overall glycemic estimate, and are predictive of increased fat mass in the women s offspring. Increased fat mass has been shown [...] signs/symptoms of hypoglycemia, and examples of treatment of hypoglycemia (15/15 rule). Discussed her current diet and her [...] modifications. PLAN - Current blood glucose control: borderline to mildly elevated fastings - Medication: - In setting of borderline fastings and EFW at 97th%ile,would recommend initiation of medication - Start Lantus 10u qhs - Injection teaching provided - Labs - A1c: 5.1 on 09/29/24 - growth ultrasounds every 4 weeks after 28 weeks - Last growth done 02/28/25: 1601 grams +/-240 grams (3 pounds, 8 ounces). EFW 97th%ile - Recommend the following for testing, which can be done with primary OB: - NST and HELLEN once weekly at 32 weeks - NST twice weekly and HELLEN once weekly at 36 weeks - Delivery recommendations : - Recommend delivery at [id number] - reviewed with pateint - Discuss delivery if estimated weight is >4500g - Use 1/2 dose of insulin the night before her planned delivery - will review at final appt - Given GDMA2, can monitor patient's BG [...] and movement precautions reviewed. Follow up in 3 weeks with Maternal- Medicine. I asked her to keep sending values to us weekly by e-mail to: or by fax to: [phone] Daisha Morel PA-C Maternal- Medicine Office phone: [phone] Daisha Morel PA-C 03/12/25 1500 Summary: MFM Insulin Pen Instruction Patient present for Insulin Start Education. Reviewed rapid and long acting insulin action times and recommended administration sites, timing, storage and site rotation. Demonstrated and reviewed insulin pen administration steps. Able to return demonstrate insulin pen administration steps without minimal difficulty. Verbalized understanding and denied any questions. Face to face time 10 minutes. documented in this encounter [facility] 03-05-2025 Miscellaneous Notes Called regarding blood sugar logs from 02/25/2025-03/03/2025 but the call went directly to voicemail. Caryl had 1 one elevated fasting blood sugar, 1 elevated blood sugar after breakfast, one elevated blood sugar after lunch, and 4 elevated blood sugars after dinner. Will send a [employer] message. documented in this encounter [facility] 03-05-2025 Telephone encounter Note Called regarding blood sugar logs from 02/25/2025-03/03/2025 but the call went directly to voicepail. Caryl had 1 one elevated fasting blood sugar, 1 elevated blood sugar after breakfast, one elevated blood sugar after lunch, and 4 elevated blood sugars after dinner. Will send a [employer] message. [facility] Work Phone: 02-27-2025 History of Present illness Narrative Reason for Appointment: Patient ID: Caryl Zamarripa is a 34 y.o. female who presents for Routine Visit Patient presents today for Return OB appointment. MEDICATIONS Current Outpatient Medications Medication Instructions Alcohol Swabs (Alcohol Prep Pad) 70 % pads 1 Pad, Topical, Daily, Use four times daily to check FSBS. Blood Glucose Monitoring Suppl ([employer] Glucometer) w/Device kit 1 kit, Does not apply, Daily, Use four times daily to check FSBS. In the morning prior to breakfast & 1 hour after each meal for a total of 4times daily. Glucose Blood (Blood Glucose Test) strip 1 strip, In Vitro, Daily, Use in the morning prior to breakfast, 1 hour after each meal for a total of 4times daily. Lancets Ultra Thin misc 1 each, In Vitro, Daily, Use to check FSBS four times daily omeprazole OTC (PRILOSEC OTC) 20 mg, Daily [...] nursing note reviewed. Exam conducted with a chemical processing laborer present. Vitals: Estimated body mass index is 36.1 kg/m as calculated from the following: Height as of 24: 5' 3 . Weight as of this encounter: 203 lb 12.8 oz. BP: 110/60 Patient's last menstrual period was 08/12/2024. ASSESSMENT & PLAN ICD-10-CM 1. 28 weeks gestation of ([facility]) Z3A.28 POCT urinalysis dipstick manually resulted 2. Third trimester ([facility]) Z34.93 POCT urinalysis dipstick manually resulted 3. H/O gastric sleeve Z90.3 4. Gestational diabetes mellitus (GDM), antepartum, gestational diabetes method of control unspecified ([facility]) O24.419 Return OB: Patient presents today for a routine obstetrics appointment. Patient is currently 28w3d . Patient states she is doing well but has complaints of being tired due to current . Patient has verbalizes frequent movement. labor precautions was discussed/given and patient was instructed to perform kick counts three times a day. Orders Placed This Encounter Procedures POCT urinalysis dipstick manually resulted Follow Up: Patient is to return to office in 2 week for routine OB appointment. Documented by Samia King LPN on behalf of: Roscoe Diaz DO documented in this encounter [facility] 02-26-2025 Miscellaneous Notes Called regarding blood sugar logs from 02/18/2025-02/24/2025 but received voicemail. Caryl had two elevated fasting blood sugars, two elevated blood sugars after lunch and one elevated blood sugar after dinner. The elevated fasting sugars occurred after the holiday weekend and Caryl noted that some elevated blood sugars were related to her food choices. Encouraged to limit carbohydrates at lunch and dinner to 45 grams of carbohydrate and to call if she has questions. Will also send a MyChart message. documented in this encounter [facility] 02-26-2025 Telephone encounter Note Called regarding blood sugar logs from 02/18/2025-02/24/2025 but received voicemail. Caryl had two elevated fasting blood sugars, two elevated blood sugars after lunch and one elevated blood sugar after dinner. The elevated fasting sugars occurred after the holiday weekend and Caryl noted that some elevated blood sugars were related to her food choices. Encouraged to limit carbohydrates at lunch and dinner to 45 grams of carbohydrate and to call if she has questions. Will also send a MyChart message. [facility] Work Phone: 02-14-2025 Group counseling note Patient: Caryl Zamarripa Date: 02/14/2025 Vitals: 02/14/25 1517 Weight: 92.7 kg (204 lb 6.4 oz) Patient present for diabetes education group class per doctor order secondary to diagnosis of GDM and/or abnormal glucose tolerance. Food recall suggests patient typically consumes a balanced diet but not eating many vegetables or fruits. Pt has gained 32.2 # to date. Weight gain goal is 11-20 pounds. Pt appears willing to make behavioral changes. Nutrition diagnosis: inconsistent carbohydrate intake as evidenced by food log related to lack of nutrition knowledge. Instructed pt on a 1900 kcal meal plan of 3 meals and 3 snacks, carbohydrate counting, label reading, dining out, and portion control. Energy content of meal plan to be adjusted based on patient's blood glucose control and weight gain/loss. Encouraged pt to measure carbohydrates for 2 days and record two day's worth of food logs. Patient to email 2 day's worth of food logs and blood glucoses to [email or web address], next Tuesday night/Tuesday morning. Please refer to health habits for other goals. Breakfast 6-6:30 AM 15-25 grams of CHO, Snack 9 AM 15-30 grams of CHO, Lunch 11:30-Noon 45 grams of CHO, Snack 2-3 PM 15-30 grams of CHO, Dinner 6 PM 45 grams of CHO, HS Snack 8-9 PM 15-30 grams of CHO. Face to face time was 70 minutes. [employer] Work Phone: 02-14-2025 Miscellaneous Notes Patient: Caryl Zaamrripa Date: 02/14/2025 Vitals: 02/14/25 1517 Weight: 92.7 kg (204 lb 6.4 oz) Patient present for diabetes education group class per doctor order secondary to diagnosis of GDM and/or abnormal glucose tolerance. Food recall suggests patient typically consumes a balanced diet but not eating many vegetables or fruits. Pt has gained 32.2 # to date. Weight gain goal is 11-20 pounds. Pt appears willing to make behavioral changes. Nutrition diagnosis: inconsistent carbohydrate intake as evidenced by food log related to lack of nutrition knowledge. Instructed pt on a 1900 kcal meal plan of 3 meals and 3 snacks, carbohydrate counting, label reading, dining out, and portion control. Energy content of meal plan to be adjusted based on patient's blood glucose control and weight gain/loss. Encouraged pt to measure carbohydrates for 2 days and record two day's worth of food logs. Patient to email 2 day's worth of food logs and blood glucoses to [email or web address], next Tuesday night/Tuesday morning. Please refer to health habits for other goals. Breakfast 6-6:30 AM 15-25 grams of CHO, Snack 9 AM 15-30 grams of CHO, Lunch 11:30-Noon 45 grams of CHO, Snack 2-3 PM 15-30 grams of CHO, Dinner 6 PM 45 grams of CHO, HS Snack 8-9 PM 15-30 grams of CHO. Face to face time was 70 minutes. documented in this encounter [facility] 02-11-2025 History of Present illness Narrative Reason for Appointment: Patient ID: Caryl Zamarripa is a 34 y.o. female who presents for Routine Visit Patient presents today for Return OB appointment. MEDICATIONS Current Outpatient Medications Medication Instructions Alcohol Swabs (Alcohol Prep Pad) 70 % pads 1 Pad, Topical, Daily, Use four times daily to check FSBS. Blood Glucose Monitoring Suppl (D-Care Glucometer) w/Device kit 1 kit, Does not apply, Daily, Use four times daily to check FSBS. In the morning prior to breakfast & 1 hour after each meal for a total of 4times daily. Glucose Blood (Blood Glucose Test) strip 1 strip, In Vitro, Daily, Use in the morning prior to breakfast, 1 hour after each meal for a total of 4times daily. Lancets Ultra Thin misc 1 each, In Vitro, Daily, Use to check FSBS four times daily omeprazole OTC (PRILOSEC OTC) 20 mg, Daily [...] nursing note reviewed. Exam conducted with a chemical processing laborer present. Vitals: Estimated body mass index is 35.87 kg/m as calculated from the following: Height as of 07/25/24: 5' 3 . Weight as of this encounter: 202 lb 8 oz. BP: 110/60 Patient's last menstrual period was 08/12/2024. ASSESSMENT & PLAN ICD-10-CM 1. Second trimester ([facility]) Z34.92 POCT urinalysis dipstick manually resulted 2. 26 weeks gestation of ([facility]) Z3A.26 3. H/O gastric sleeve Z90.3 US OB follow up transabdominal approach Return OB: Patient presents today for a routine obstetrics appointment. Patient is currently 26w1d . Patient states she is doing well but has complaints of being tired due to current . Patient has verbalizes frequent movement. labor precautions was discussed/given and patient was instructed to perform kick counts three times a day. Orders Placed This Encounter Procedures US OB follow up transabdominal approach POCT urinalysis dipstick manually resulted Follow Up: Patient is to return to office in 2 week for routine OB appointment. Diabetic education schedule for of this week. 1 hour glucose 198 and patient declined 3 hour testing and will monitor glucose over the next 2 weeks and glucose logs were provided today. Documented by Adelaida Dugan NP on behalf of: Adelaida Dugan NP documented in this encounter [facility] 01-10-2025 History of Present illness Narrative Reason [...] nursing note reviewed. Exam conducted with a chemical processing laborer present. Vitals: Estimated body mass index is [...] Roscoe Diaz DO documented in this encounter [facility] 12-10-2024 History of Present illness Narrative Reason [...] nursing note reviewed. Exam conducted with a chemical processing laborer present. Vitals: Estimated body mass index is [...] of: SLICK Matias documented in this encounter [facility] 11-08-2024 History of Present illness Narrative [...] Roscoe Diaz DO documented in this encounter [facility] 10-18-2024 History of Present illness Narrative [...] or undercooked meat, and stay away from [facility]. Patient has also been advised to not [...] Monika Mesa LPN documented in this encounter [facility] 08-02-2024 History of Present illness Narrative Images from the original note were not included. [address] , [address] [facility], [address] P: [phone] F: [phone] HPI Historian of HPI: patient Caryl Zamarripa [...] Left Turbinates: Enlarged and swollen. Mouth/Throat: Lips: [place]. Mouth: Mucous membranes are moist. Pharynx: Oropharynx [...] tablet; Refill: 0 documented in this encounter [facility] 07-25-2024 History of Present illness Narrative [...] Use: Not At Risk (07/19/2023) Received from [facility] AUDIT-C Frequency of Alcohol Consumption: Monthly or less Average Number of Drinks: 1 or 2 Frequency of Binge Drinking: Never Depression: Not at risk (06/29/2024) Received from [facility] PHQ-2 PHQ-2 score: 0 Physical Activity: Insufficiently Active (07/19/2023) Received from [facility] Exercise Vital Sign Days of Exercise [...] Alexandro Garner DO documented in this encounter [facility] 06-29-2024 Note HNO ID: [id number] Author: BERENICE ZEPEDA APRN.VIRTUALIZATION ARCHITECT Service: ? Author Type: Nurse Practitioner Type: [...] - PHENTERMINE 37.5 MG TABLET Berenice Zepeda APRN.[facility] 06-29-2024 History of Present illness Narrative Caryl [...] - PHENTERMINE 37.5 MG TABLET Berenice Zepeda APRN.VIRTUALIZATION ARCHITECT documented in this encounter [facility] 03-06-2024 Telephone encounter Note Order formatted Please advise [facility] 03-06-2024 Miscellaneous Notes Order formatted Please advise documented in this encounter [facility] 09-23-2023 Note HNO ID: [id number] Author: BERENICE ZEPEDA APRN.GIORGI Service: ? Author Type: Nurse Practitioner Type: Progress Notes Filed: 09/23/2023 15:52 Note Text: VIRTUAL VISIT PROGRESS NOTE This is a virtual visit using [employer] Video Visit. It required patient-provider interaction for the medical decision making as documented below. I have communicated my name and active licensure. The patient's identity and physical location were verified at the time of this visit. Either the patient or their legal provider service representative has been informed of the [...] Outpatient Medications Medication Sig Omeprazole Magnesium (ACID REFRIGERATOR ROOM CLERK, OMEPRAZOLE,) 20 mg cpDR No current facility-administered [...] on file for this visit. Berenice Zepeda APRN.VIRTUALIZATION ARCHITECT [facility] 09-23-2023 History of Present illness Narrative VIRTUAL VISIT PROGRESS NOTE This is a virtual visit using [employer] Video Visit. It required patient-provider interaction for the medical decision making as documented below. I have communicated my name and active licensure. The patient's identity and physical location were verified at the time of this visit. Either the patient or their legal provider service representative has been informed of the [...] Outpatient Medications Medication Sig Omeprazole Magnesium (ACID REFRIGERATOR ROOM CLERK, OMEPRAZOLE,) 20 mg cpDR No current facility-administered [...] on file for this visit. Berenice Zepeda APRN.VIRTUALIZATION ARCHITECT documented in this encounter [facility] 08-23-2023 Note HNO ID: [id number] Author: BERENICE ZEPEDA APRN.GIORGI Service: ? Author Type: Nurse Practitioner [...] PHENTERMINE 37.5 MG TABLET Berenice Zepeda APRN.CNP [facility] 07-21-2023 Note HNO ID: [id number] Author: Berenice eZpeda APRN.CNP Service: ? Author Type: Nurse Practitioner Type: Progress Notes Filed: 07/22/2023 10:16 AM Note Text: Caryl Zamarripa is a 32 year old female here today for review of established medical problems as well as comprehensive physical examination. Obesity S/p gastric sleeve surgery in 03/2022 at [facility] in [place] Down about 70lb, has reached plateau Gym 4 days per week with cardio (treadmill, elliptical) Maybe not enough water Tries to focus on more protein, lower carbs Last 10 Encounter Wt Readings: Date: Wt: 07/21/2023 80.1 kg (176 lb 8 oz) 07/06/2022 81.6 kg (180 lb) 01/15/2022 104.3 kg (230 lb) [facility] HM needs: Hepatitis B Vaccine(1 of 3 - 3-dose series) Never done Depression Assessment Never done HPV Testing Never done PAST MEDICAL HISTORY Diagnosis Date GERD (gastroesophageal reflux disease) Prediabetes PAST SURGICAL HISTORY Procedure Laterality Date PT ED BARIATRIC AND METABOLIC gastric sleeve 03/2022 ALLERGIES Patient has no known allergies. 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 Sensation grossly intact. Breast/Pelvic: Per [employer] ASSESSMENT/PLAN: 1. Routine adult health maintenance - ICD9: V70.0, ICD10: Z00.00 (primary diagnosis) - Counseled on healthy diet and regular exercise - Calcium intake with supplements or by diet of 1000 mg/day for under 50, 3862-4518 mg/day for 50+ - Discussed need and [...] comorbidity present - (more content not included)... [facility] 07-21-2023 History of Present illness Narrative Caryl Zamarripa is a 32 year old female here today for review of established medical problems as well as comprehensive physical examination. Obesity S/p gastric sleeve surgery in 03/2022 at [facility] in [place] Down about 70lb, has reached plateau Gym 4 days per week with cardio (treadmill, elliptical) Maybe not enough water Tries to focus on more protein, lower carbs Last 10 Encounter Wt Readings: Date: Wt: 07/21/2023 80.1 kg (176 lb 8 oz) 07/06/2022 81.6 kg (180 lb) 01/15/2022 104.3 kg (230 lb) [facility] HM needs: Hepatitis B Vaccine(1 of 3 - 3-dose series) Never done Depression Assessment Never done HPV Testing Never done PAST MEDICAL HISTORY Diagnosis Date GERD (gastroesophageal reflux disease) Prediabetes PAST SURGICAL HISTORY Procedure Laterality Date PT ED BARIATRIC AND METABOLIC gastric sleeve 03/2022 ALLERGIES Patient has no known allergies. 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 Sensation grossly intact. Breast/Pelvic: Per [employer] ASSESSMENT/PLAN: 1. Routine adult health maintenance - ICD9: V70.0, ICD10: Z00.00 (primary diagnosis) - Counseled on healthy diet and regular exercise - Calcium intake with supplements or by diet of 1000 mg/day for under 50, 8817-0388 mg/day for 50+ - Discussed need and [...] - HEP B SURF AB Berenice Zepeda APRN.VIRTUALIZATION ARCHITECT ' documented in this encounter [facility] 06-29-2023 Miscellaneous Notes Sent Valtrex 1 gram twice/day for 2 days with one refill. High stress can cause cold sores? How is your stress level? documented in this encounter [facility] 01-15-2022 Instructions Dasha Lujan MD - 01/15/2022 12:05 PM EDT -Get Hgba1c and K level checked in the near future. -Encourage you to lose 2 lbs/week as a healthy way via diet and exercise -Should you have any questions or concerns, do not hesitate to contact me anytime via my chart (Dr.Sunir Lujan) documented in this encounter [facility] 01-15-2022 History of Present illness Narrative Caryl Zamarripa is a 31 year old female who presents with Establish Care -Pt is here to Establish Care. 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 Says all labs checked out fine per pt discussion. Pt says she did get her thyroid lab work checked 4 years ago, and all checked out fine. Thyroid blood work was also checked recently. -OARRS reviewed: clean -Incoming Inspector: deferred seeing one at this time as pt is undergoing gastric sleeve evaluation (Bariatric Surgery) at [facility]. Pt says that she just needs to [...] process to get Bariatric Surgery done at [facility]. (R73.9) Blood glucose elevated Plan: HGB A1C (E87.5) Hyperkalemia Plan: POTASSIUM BLD -Will have her get K level rechecked. (K76.0) Hepatic steatosis -LFT were normal. -Encourage weight reduction and avoid alcohol and tylenol as much as possible. -Will continue to monitor LFT. Dasha Lujan MD documented in this encounter [facility] 01-08-2022 Miscellaneous Notes Will advise on Tuesday when he returns Patient calling stating Dr Lujan agreed to take her into his practice but no documentation found in patient chart. Please advise. documented in this encounter [facility] Evaluation note Diagnosis Preoperative clearance- Primary Preoperative examination, unspecified Obesity (BMI 30-39.9) Obesity, unspecified Blood glucose elevated Other abnormal glucose Hyperkalemia Hyperpotassemia Hepatic steatosis Other chronic nonalcoholic liver disease [facility] noteNo assessment information availableL[facility]aster [facility] Work Phone: Evaluation note* Diagnosis Routine [...] Antibody response examination [facility] Diagnosis Encounter for weight management Overweight (BMI 25.0-29.9) Overweight [facility] Diagnosis Encounter for weight management- Primary Overweight [facility] Diagnosis Rectal bleeding- Primary Hemorrhage of rectum and anus documented in this encounter [facility]* Diagnosis Acute cough- Primary Chest congestion Other symptoms involving respiratory system and chest Bronchitis Bronchitis, not specified as acute or chronic documented in this encounter [facility]* Diagnosis Missed menses , unspecified gestational age Encounter for supervision of normal first in first trimester Nausea and vomiting in Unspecified vomiting of , unspecified as to episode of care documented in this encounter [facility] note* Diagnosis 12 weeks gestation of documented in this encounter [facility] note* Diagnosis Well woman exam with routine gynecological exam Routine gynecological examination Second trimester state, incidental 17 weeks gestation of Exposure to STD Need for maternal serum alpha-protein (MSAFP) screening Screening, , for anatomic survey Encounter for anatomic survey [facility] Diagnosis 21 weeks gestation of Second trimester state, incidental Diabetes mellitus screening Screening for diabetes mellitus [facility]* Diagnosis Second trimester (HHS-HCC) state, incidental 26 weeks gestation of (HHS-HCC) H/O gastric sleeve [facility]* Diagnosis Gestational diabetes mellitus (GDM) in second trimester, gestational diabetes method of control unspecified- Primary [facility] Diagnosis 28 weeks gestation of ([facility]HS-HCC) Third trimester (HHS-HCC) state, incidental H/O gastric sleeve Gestational diabetes mellitus (GDM), antepartum, gestational diabetes method of control unspecified (HHS-HCC) [facility]* Diagnosis Gestational diabetes mellitus (GDM) in second trimester, gestational diabetes method of control unspecified- Primary Gestational diabetes requiring insulin Abnormal maternal glucose tolerance, complicating , childbirth, or the puerperium, unspecified as to episode of care [facility] Diagnosis 30 weeks gestation of (HHS-HCC) Third trimester (HHS-HCC) state, incidental H/O gastric sleeve Gestational diabetes mellitus (GDM), antepartum, gestational diabetes method of control unspecified ([facility]) [facility]* Diagnosis Gestational diabetes requiring insulin- Primary Abnormal maternal glucose tolerance, complicating , childbirth, or the puerperium, unspecified as to episode of care [facility] Diagnosis Third trimester (HHS-HCC) state, incidental H/O gastric sleeve Gestational diabetes mellitus (GDM), antepartum, gestational diabetes method of control unspecified (HHS-HCC) 32 weeks gestation of (HHS-HCC) documented in this encounter [facility] HealthcareInstructionsNot on filedocumented in this encounterPro[facility]ica [facility] SystemInstructionsNot on filedocumented in this encounterProMedica Health SystemInstructionsNot on filedocumented in this encounterProMedica Health SystemInstructionsNot on filedocumented in this encounterReg[facility] InstructionsNot on filedocumented in this encounterRegency Hospital [facility] InstructionsNot on filedocumented in this encounterRegency Hospital [facility] Summary Purpose Family History No Family History [...] unspecified whether serious comorbidity present Berenice Zepeda APRN.VIRTUALIZATION ARCHITECT [address] [place] [address] Referral ID Status Reason Start Date Expiration Date Visits Re quested Visits Authorized [id number] Closed 1 1 Specialty Diagnoses / Procedures Referred By Zachery kenyon Referred To Contact Diagnoses Encounter for weight management Overweight (BMI 25.0-29.9) Berenice Zepeda, BRETT.VIRTUALIZATION ARCHITECT [address] [place] [address] Referral ID Status Reason Start Date Expiration Date Visits Re quested Visits Authorized [id number] Closed 1 1 Additional Source Comments Source Comments (unrecognize d section and content) In the event this informatio n is protected by the Federal Confidentiality of Alcohol and Drug Abuse Patient Records regulations: The Federal rules restrict any use of the information to criminally investigate or prosecute any alcohol or drug abuse patient.[facility] the event this information is protected by the Federal Confidentiality of Alcohol and Drug Abuse Patient Records regulations: The Federal rules restrict any use of the information to criminally investigate or prosecute any alcohol or drug abuse patient.[facility] the event this information is protected by the Federal Confidentiality of Alcohol and Drug Abuse Patient Records regulations: The Federal rules restrict any use of the information to criminally investigate or prosecute any alcohol or drug abuse patient.[facility] the event this information is protected by the Federal Confidentiality of Alcohol and Drug Abuse Patient Records regulations: The Federal rules restrict any use of the information to criminally investigate or prosecute any alcohol or drug abuse patient.[facility] the event this information is protected by the Federal Confidentiality of Alcohol and Drug Abuse Patient Records regulations: The Federal rules restrict any use of the information to criminally investigate or prosecute any alcohol or drug abuse patient.[facility] the event this information is protected by the Federal Confidentiality of Alcohol and Drug Abuse Patient Records regulations: The Federal rules restrict any use of the information to criminally investigate or prosecute any alcohol or drug abuse patient.[facility] the event this information is protected by the Federal Confidentiality of Alcohol and Drug Abuse Patient Records regulations: The Federal rules restrict any use of the information to criminally investigate or prosecute any alcohol or drug abuse patient.[facility] Reason for Visit (unrecogniz ed section and [...] Contact General Surgery Diagnoses Rectal bleeding Procedures HI OFFICE/OUTPATIENT [facility] Sina Garner DO [address] [place] [id number] Phone: tel: fax: Sina Garner DO [address] [address] Phone: tel: fax: Referral ID Status Reason Start Date Expiration Date V isits Requested Visits Authorized [id number] Closed Specialty Services Required 07/11/2024 01/07/2025 1 1 Reason Comments Amenorrhea Reason Comments Routine Visit Reason Comments Elevated Glucose Tolerance Test Specialty Diagnoses / Procedures Referred By Contac t Referred To Contact Maternal and Medicine Diagnoses Gestational diabetes mellitus (GDM) in second trimester, gestational diabetes method of control unspecified Roscoe Diaz, DO [address] [place] [address] [place] [address] Phone: tel: fax: Maternal- Medicine at [facility] [address] [place] [address] Phone: tel: fax: Referral ID Status Reason Start Date Expiration Date Visits Requested Visits Authorized [id number] Pending Review Specialty Services Required 02/06/2025 02/06/2026 1 1 Reason Comments MED START Care Teams (unrecognized sec tion and content) Health Plan Manager Relationship Specialty [place] [address] [place] [address] PCP - General Internal Medicine 01/11/22 Team Status: Inactive Member Role Status Dates Dasha Lujan MD Primary Care Provider Active Reena Breaux APRN BOARD MEMBER-C Attending Provider Activ e Team Status: Active Member Role Status Dates Dasha Lujan MD Primary Care Provider Active Health Plan Manager Relationship Specialty [place] [address] [place] [address] PCP - General Internal Medicine 01/11/22 Health Plan Manager Relationship Specialty [place] [address] [place] [address] PCP - General Internal Medicine 01/11/22 Health Plan Manager Relationship Specialty [place] [address] [place] [address] PCP - General Internal Medicine 01/11/22 Health Plan Manager Relationship Specialty [place] [address] [place] [address] PCP - General Internal Medicine 01/11/22 Health Plan Manager Relationship Specialty [place] [address] [place] [address] PCP - General Internal Medicine 01/11/22 Health Plan Manager Relationship Specialty Start Date End Date Unallocated, Ebenezer Pate MD [address] [place] [address] [place] [address] PCP - General Family Medicine 10/17/23 Health Plan Manager Relationship Specialty Start Date End Date Unallocated, Ebenezer Pate MD [facility] [place] [address] PCP - General Family Medicine 10/17/23 Health Plan Manager Relationship Specialty Start Date End Date Unallocated, Ebenezer Pate MD [facility] [place] [address] PCP - General Family Medicine 10/17/23 Health Plan Manager Relationship Specialty Start Date End Date Unallocated, Ebenezer Pate MD [facility] [place] [address] PCP - General Family Medicine 10/17/23 Health Plan Manager Relationship Specialty Start Date End Date Unallocated, Ebenezer Pate MD [facility] [place] [address] PCP - General Family Medicine 10/17/23 Health Plan Manager Relationship Specialty Start Date End Date Unallocated, Ebenezer Pate MD [address] [place] [address] PCP - General Family Medicine 10/17/23 Edu Alvarez NP [address] [place] [address] PCP - [place] [employer] 09/22/24 Health Plan Manager Relationship Specialty Start Date End Date Unallocated, Ebenezer Pate MD [facility] [place] [address] PCP - General Family Medicine 10/17/23 Edu Alvarez BOARD MEMBER [address] [place] [address] PCP - [place] [employer] 09/22/24 Health Plan Manager Relationship Specialty Start Date End Date Unallocated, Ebenezer Pate MD [facility] [place] [address] PCP - General Family Medicine 10/17/23 Edu Alvarez BOARD MEMBER [address] [place] [address] PCP - [place] [employer] 09/22/24 Health Plan Manager Relationship Specialty Start Date End Date Unallocated, Ebenezer Pate MD [facility] [place] [address] PCP - General Family Medicine 10/17/23 Edu Alvarez NP [address] [place] [address] PCP - [place] [employer] 09/22/24 Health Plan Manager Relationship Specialty Start Date End Date Unallocated, Ebenezer Pate MD [address] [place] [address] PCP - General Family Medicine 10/17/23 Edu Alvarez, BOARD MEMBER [address] [place] [address] PCP - [place] [employer] 09/22/24 Health Plan Manager Relationship Specialty Start Date End Date Unallocated, Ebenezer Pate MD [facility] [place] [address] PCP - General Family Medicine 10/17/23 Edu Alvarez BOARD MEMBER [address] [place] [address] PCP - [place] [employer] 09/22/24 Health Plan Manager Relationship Specialty Start Date End Date Unallocated, Ebenezer Pate MD [facility] [place] [address] PCP - General Family Medicine 10/17/23 Edu Alvarez, BOARD MEMBER [address] [place] [address] PCP - [place] [employer] 09/22/24 Health Plan Manager Relationship Specialty Start Date End Date Unallocated, Ebenezer Pate MD [facility] [place] [address] PCP - General Family Medicine 10/17/23 Edu Alvarez BOARD MEMBER [address] [place] [address] PCP - [place] [employer] 09/22/24 Health Plan Manager Relationship Specialty Start Date End Date Unallocated, Ebenezer Pate MD [facility] [place] [address] PCP - General Family Medicine 10/17/23 Edu Alvarez BOARD MEMBER [address] [place] [address] PCP - [place] [employer] 09/22/24 Health Plan Manager Relationship Specialty Start Date End Date Unallocated, Noms Provider, MD [place] [address] PCP - General Family Medicine 10/17/23 Edu Alvarez NP [address] [place] [address] PCP - [place] [employer] 09/22/24 INFORMATION SOURCE (unrecogn ized section and content) DATE CREATED AUTHOR 01/16/2022 [facility] DATE CREATED AUTHOR AUTHOR'S ORGANIZ ATION 10/18/2022 [facility] DATE CREATED AUTHOR AUTHOR'S ORGANIZ ATION 07/01/2024 [facility] DATE CREATED AUTHOR AUTHOR'S ORGANIZ ATION 03/30/2025 [facility] DATE CREATED AUTHOR AUTHOR'S ORGANIZ ATION 04/02/2025 [facility] Goals (unrecognized section and content) Goals may be documented in a n alternate sectionNot on filedocumented as of this encounterNot on filedocumented as of this encounterNot on filedocumented as of this encounterNot on filedocumented as of this encounterNot on filedocumented as of this encounterNot on filedocumented as of this encounterNot on filedocumented as of this encounterNot on filedocumented as of this encounterNot on filedocumented as of this encounterNot on filedocumented as of this encounter FOR RECORDS PERTAINING TO PATIENTS WHO ARE [...] BE BASED ON THE PRIMARY CLINICAL RECORDS. [facility]. provides no warranty or guarantee of the accuracy or completeness of information in this document.
[2025-04-04 12:58] VITALS: TEMP 36.3
[2025-04-04 12:59] VITALS: BP 105/53; PULSE 74
== END 2025-04-04 13:20 | disposition home or self-care (01) ==
LOC: FBCO 12:51 → FBC 12:55
PROVIDERS: Visit Provider Obstetrics & Gynecology
DX: O24.419 Gestational diabetes mellitus in pregnancy, unspecified control (principal); O26.893 Other specified pregnancy related conditions, third trimester; Z3A.33 33 weeks gestation of pregnancy
CPT/HCPCS: 59025

== ENCOUNTER 2025-04-08 16:53 | Outpatient (OUT) | payer BC, SELFPAY ==
--- OUTSIDE RECORDS SUMMARY | 2025-03-27 14:00 | XMS_ITS | Encounter Summary ---
Author Organization [facility] Address [address] [place] [address] Care Team Providers Care Business Development Intern Name Role Phone Unallocated, Noms Provider Primary Care Provi chrissy Amalia Bruce FUR MACHINE OPERATOR Unavailable [phone] Encounter Details Date Type Department Care Team (Late st Contact Info) Description 03/27/2025 2:00 PM EDT Routine [facility] O[facility] [address] [place] [address] Roscoe Diaz DO [address] Racheal [place], [facility] Third trimester ([facility]); H/O gastric sleeve; Gestational diabetes mellitus (GDM), antepartum, gestational diabetes method of control unspecified ([facility]); 32 weeks gestation of ([facility]) Social History Tobacco Use Types Packs/Day Years [...] 81 mg, Daily Blood Glucose Monitoring Suppl (DBambuser Glucometer) w/Device kit 1 kit, Does not [...] nursing note reviewed. Exam conducted with a manager university present. Vitals: Estimated body mass index is 36.28 kg/m?? as calculated from the following: Height as of 07/25/24: 5' 3 . Weight as of this encounter: 204 lb 12.8 oz. BP: 116/72 Patient's last menstrual period was 08/12/2024. ASSESSMENT & PLAN ICD-10-CM 1. Third trimester ([facility]) Z34.93 POCT urinalysis dipstick manually resulted 2. H/O gastric sleeve Z90.3 POCT urinalysis dipstick manually resulted 3. Gestational diabetes mellitus (GDM), antepartum, gestational diabetes method of control unspecified ([facility]) O24.419 POCT urinalysis dipstick manually resulted 4. 32 weeks gestation of ([facility]) Z3A.32 POCT urinalysis dipstick manually resulted Return [...] PM EDT Routine [facility] [address] [place] [address] Roscoe Diaz DO [address] [place] [address] documented as of this encounter Goals Goal Patient Goal Type Associated Problems Recent Progress Patient-Stated? Author Reminders Care Plan OB Reminders No Open Scheduling, Background documented as of this encounter Procedures Procedure Name Priority Date/Time Associated Diagnosis Comments POCT URINALYSIS DIPSTICK Routine 03/27/2025 2:49 PM EDT Third trimester ([facility]) H/O gastric sleeve Gestational diabetes mellitus (GDM), antepartum, gestational diabetes method of control unspecified ([facility]) 32 weeks gestation of ([facility]) documented in this encounter Results * (ABNORMAL) [...] this encounter Visit Diagnoses Diagnosis Third trimester ([facility]) state, incidental H/O gastric sleeve Gestational diabetes mellitus (GDM), antepartum, gestational diabetes method of control unspecified ([facility]) 32 weeks gestation of ([facility]) documented in this encounter Additional Health Concerns Active Problems Noted Date Diagnosed Date OB Reminders 10/19/2024 documented as of this encounter Care Teams Business Development Intern Relationship Specialty Start Date End Date Unallocated, Noms Provider, [address] [place] [address] PCP - General Family Medicine 10/17/23 Amalia Bruce, FUR MACHINE OPERATOR [address] [place] [address] PCP - [employer]o Commercial 09/22/24 documented as of this encounter
--- OUTSIDE RECORDS SUMMARY | 2025-04-01 10:00 | XMS_ITS | Encounter Summary ---
Author Organization [facility] tem Address [id number] [address] [place] [address] Care Team Providers Care Graphotype Operator Name Role Phone Unavailable Primary Care Provider Milan e Encounter Details Date Type Department Care Team (Late st Contact Info) Description 04/01/2025 10:00 AM EDT Telemedicine Maternal- Medicine at [facility] [address] [place] [address] Daisha Morel PA-C [address] [address] Gestational diabetes requiring insulin (Primary Dx) Social [...] insulinnightly, Disp: 100 each, Rfl: 2 25-IRON [id number] ORAL, Take 1 tablet by mouth in [...] Delivery recommendations : - Recommend delivery at 81e7h-96q9t - reviewed with pateint - Discuss delivery [...] by e-mail to: or by fax to: [phone] Daisha Morel PA-C Maternal- Medicine Office phone: [phone] Daisha Morel PA-C 04/01/25 1331 documented in this encounter Plan of Treatment Not on file documented as of this encounter Visit Diagnoses Diagnosis Gestational diabetes requiring insulin- Primary Abnormal maternal glucose tolerance, complicating , childbirth, or the puerperium, unspecified as to episode of care documented in this encounter
--- OUTSIDE RECORDS SUMMARY | 2025-04-08 10:00 | XMS_ITS | Encounter Summary ---
Author Organization [facility] Address [address] [place] [address] Care Team Providers Care Medical Voucher Clerk Name Role Phone Unallocated, Noms Provider Primary Care Provi chrissy Amalia Bruce FIRE PROTECTION ENGINEER Unavailable [phone] Encounter Details Date Type Department Care Team (Latest Contact Info) Description 04/08/2025 10:00 AM EDT Ancillary Procedure [facility] [address] [place] [address] H/O gastric sleeve Social History Tobacco [...] 3:00 PM EDT Routine [facility] [address] [place] [address] Roscoe Diaz DO [address] [place] [address] Pending Results Name Type Priority Associated Diagnoses Date /Time US OB follow up transabdominal approach Imaging Routine H/O gastric sleeve 04/08/2025 10:27 AM EDT documented as of this encounter Goals Goal Patient Goal Type Associated Problems Recent Progress Patient-Stated? Author Reminders Care Plan OB Reminders No Open Scheduling, Background documented as of this encounter Visit Diagnoses Diagnosis H/O gastric sleeve documented in this encounter Additional Health Concerns Active Problems Noted Date Diagnosed Date OB Reminders 10/19/2024 documented as of this encounter Care Teams Medical Voucher Clerk Relationship Specialty Start Date End Date Unallocated, Noms Provider, [address] [place] [address] PCP - General Family Medicine 10/17/23 Amalia Bruce, FIRE PROTECTION ENGINEER [address] [place] [address] PCP - [place] 09/22/24 documented as of this encounter
--- NOTE | 2025-04-08 16:56 | US_ITS ---
[address] [address] Patient Name: TRUDI ZAMARRIPA MRN: [id number] date: 1990 Sex: F Assigned Patient Location: [facility] Current Patient Location: Accession/Order Number: [id number] Exam Date: 04/08/2025 20:36 Report Date: 04/08/2025 20:37 At the request of: MAULIK QUIROZ Procedure: US OB BPP w non-stress Ultrasound biophysical profile HISTORY: History of gastric sleeve Adequate breathing movement, gross body movement, tone and amniotic fluid volume for total score of 8 out of 8. The amniotic fluid index is 9.3cm within normal limits. The heart rate 136 bpm. US/US OB BPP w non-stress IMPRESSION: Adequate ultrasound biophysical profile Impression dictated by: Suraj Briscoe M.D. 04/08/2025 8:37 PM Dictation Location: [place] [address] Electronically authenticated by: [id number] Y Date: 04/08/2025 20:37
--- OUTSIDE RECORDS SUMMARY | 2025-04-08 16:56 | XMS_ITS | Encounter Summary ---
Author Organization [facility] Address [address] [place] [address] Care Team Providers Care Media Promoter Name Role Phone Unallocated, Noms Provider Primary Care Provi chrissy Amalia Bruce PULP GRINDER Unavailable [phone] Encounter Details Date Type Department Care Team (Late Contact Info) Description 10/29/2024 Abstract [facility] [address] [place] [address] Roscoe Diaz DO [address] [facility] [address] [place] [address] Social History Tobacco Use Types Packs/Day Years [...] 3:00 PM EDT Routine [facility] [address] [place] [address] Roscoe Diaz DO [address] [facility] [address] [place] [address] documented as of this encounter Goals Goal Patient Goal Type Associated Problems Recent Progress Patient-Stated? Author Reminders Care Plan OB Reminders No Open Scheduling, Background documented as of this encounter Visit Diagnoses Not on filedocumented in this encounter Additional Health Concerns Active Problems Noted Date Diagnosed Date OB Reminders 10/19/2024 documented as of this encounter Care Teams Media Promoter Relationship Specialty Start Date End Date Unallocated, [place] Provider, [address] [place], [place] [id number] PCP - General Family Medicine 10/17/23 Amalia Bruce, TONIA [address] [place] [address] PCP - [place] [employer] 09/22/24 documented as of this encounter
--- OUTSIDE RECORDS SUMMARY | 2025-04-08 16:56 | XMS_ITS | Clinical Summary ---
Author Organization Address [address] [place] [address] Care Team Providers Care Grain Manager Name Role Phone Dasha Lujan MD Primary Care Provider [phone] Fatimah Geiger APRN.SULFATE DRIER MACHINE OPERATOR Unavailable [phone] Allergies No known active allergies Medications Omeprazole Magnesium (ACID SUPERVISOR TOY ASSEMBLY, OMEPRAZOLE,) 20 mg cpDR 04/16/2022 Active Active [...] 0.6 oz p ure alcohol) occ. drink [employer] Utilities Answer Date Recorded In the past 12 months has [employer], gas, oil, or water [employer]) threatened to shut off services in your [...] often do you attend chur ch or oriental orthodox services? Never 07/19/2023 Do you belong to any clubs o r organizations such as pentecostal groups, unions, fraternal or athletic groups, or [...] Answer Date Recorded PHQ-2 score 0 06/29/2024 [facility] [place] of Occupat ional Health - Occupational Stress [...] place to sleep or slept in a retirement (including now)? No 07/19/2023 Area Deprivation Index Answer Date Vern rded National Score (1-100), lower number is lower ri sk 90 07/19/2023 State Score (1-10), lower number is lower risk 8 07/19/2023 Data from: https://www.neighborhoodatlas.medicine.[facility].edu/. Last address used for calculation [address] [...] Hepatitis C Screening Discontinued Insurance Care Teams Grain Manager Relationship Specialty [place] [address] [place], [place] [id number] PCP - General Internal Medicine 01/11/22 Fatimah Geiger APRN.SULFATE DRIER MACHINE OPERATOR [address] [place], [place] [id number] Drafter Structural Internal Medicine 07/30/24
--- OUTSIDE RECORDS SUMMARY | 2025-04-08 16:56 | XMS_ITS | Encounter Summary ---
Author Organization [facility] Address [address] [place] [address] Care Team Providers Care Award Clerk Name Role Phone Unallocated, Noms Provider Primary Care Provi chrissy Amalia Bruce REFERENCE TEST CLERK Unavailable [phone] Encounter Details Date Type Department Care Team (Late Contact Info) Description 04/01/2025 Clinisync Result Encounter [facility] External Department Unsolicited Rosy Quiroz PA [address] [email or web address] [address] Social History Tobacco Use Types Packs/Day Years [...] PM EDT Routine [facility] [address] [place] [address] Roscoe Diaz, DO [address] [place] [id number] documented as of this encounter Goals Goal [...] EDT Narrative 04/01/2025 3:31 PM EDT The [address] [address] Ultrasound Report Signed Patient: TRUDI ZAMARRIPA MR#: [id number] : 1990 Acct:[id number] Age/Sex: 34 / F ADM Date: 04/01/25 Loc: [facility] 250-[address]: Rosy Quiroz Ordering Physician: Rosy Quiroz Date of Service: 04/01/25 Procedure(s): US OB BPP w non-stress Accession Number(s): [id number] cc: Rosy Quiroz; Physician,Non-Staff M.D. The [address] [address] Patient Name: TRUDI ZAMARRIPA MRN: [id number] date: 1990 Sex: F Assigned Patient Location: US Current Patient Location: US Accession/Order Number: [id number] Exam Date: 04/01/2025 15:28 Report Date: 04/01/2025 15:29 At the request of: ROSY QUIROZ Procedure: US OB BPP w non-stress Biophysical profile. Reason for exam: History of gastric sleeve surgery COMPARISON: None TECHNIQUE: Transabdominal imaging of the gravid uterus was obtained. FINDINGS: The engineering tech reports a BPP of 8 out of 8. HELLEN is normal at 10.8 cm. heart rate 125 bpm. US/US OB BPP w non-stress IMPRESSION: BPP 8 out of 8. Impression dictated by: Cy Jensen Jr., D.O. 04/01/2025 3:29 PM Dictation Location: [place] [address] Electronically authenticated by: [id number] Y Date: 04/01/2025 15:29 Dictated By: Cy Jensen M.D. Signed By: 04/01/25 1531 DD/ 1529 TD/TT: Training And Development Coordinator: Procedure Note Radiology, Radiologist, MD - 04/01/2025 [place] [address] Ultrasound Report Signed Patient: TRUDI ZAMARRIPA JMR#: [id number] : 1990Acct:[id number] Age/Sex: 34 / FADM Date: 04/01/25 Loc: [place] [address]: Rosy Quiroz Ordering Physician: Rosy Quiroz Date of Service: 04/01/25 Procedure(s): US OB BPP w non-stress Accession Number(s): [id number] cc: Rosy Quiroz; Physician,Non-Staff Shimon The [place] [address] Patient Name: TRUDI ZAMARRIPA MRN: [facility]:[id number] date: 1990 Sex: F Assigned Patient Location: Current Patient Location: US Accession/Order Number: [id number] Exam Date: 04/01/2025 15:28 Report Date: 04/01/2025 15:29 At the request of: ROSY QUIROZ Procedure: US OB BPP w non-stress Biophysical profile. Reason for exam: History of gastric sleeve surgery COMPARISON: None TECHNIQUE: Transabdominal imaging of the gravid uterus was obtained. FINDINGS: The engineering tech reports a BPP of 8 out of 8. HELLEN is normal at10.8 cm. heart rate 125 bpm. US/US OB BPP w non-stress IMPRESSION: BPP 8 out of 8. Impression dictated by: Cy Jensen Jr., D.O. 04/01/2025 3:29 PM Dictation Location: [place] [address] Electronically authenticated by: [id number] Y Date: 5:29 Dictated By: Cy Jensen M.D. Signed By:04/01/25 1531 DD/ 1529 TD/TT: Training And Development Coordinator: Rosy [facility] Final Result documented in this encounter Visit Diagnoses Not on filedocumented in this encounter Additional Health Concerns Active Problems Noted Date Diagnosed Date OB Reminders 10/19/2024 documented as of this encounter Care Teams Award Clerk Relationship Specialty Start Date End Date Unallocated, Noms Provider, [address] [place], [place] [id number] PCP - General Family Medicine 10/17/23 Amalia Bruce, TONIA [address] [place] [address] PCP - [place] [employer] 09/22/24 documented as of this encounter
--- OUTSIDE RECORDS SUMMARY | 2025-04-08 16:56 | XMS_ITS | Encounter Summary ---
Author Organization [facility] Address [address] [place] [address] Care Team Providers Care Shipping Processor Name Role Phone Dasha Lujan MD Primary Care Provider Sonia Dickerson BENEFITS SPECIALIST.OPHTHALMIC TECHNICIAN Unavailable [phone] Fatimah Geiger BENEFITS SPECIALIST.OPHTHALMIC TECHNICIAN Unavailable Ruth Richardson BENEFITS SPECIALIST.OPHTHALMIC TECHNICIAN Unavailable Berenice Rivas APRN.OPHTHALMIC TECHNICIAN Unavailable Zarina Pope PA-C Unavailable Source Comments In the event this information is protected by the Federal Confidentiality of Alcohol and Drug AbusePatient Records regulations: The Federal rules restrict any use of the information to criminally investigate or prosecute any alcohol or drug abuse patient.[facility] Encounter Details Date Type Department Care Team (Late st Contact Info) Description 06/12/2024 Patient Msg Internal Medicine [address] [place] [address] Berenice Rivas APRN.OPHTHALMIC TECHNICIAN [address] [place] [address] Appointment Request Social History Tobacco Use Types Packs/Day Years Used Date Smoking Tobacco: Never Smokeless Tobacco: Never Alcohol Use Standard Drinks/Week Comments Yes 1.3 (1 standard drink = 0.6 oz p ure alcohol) occ. drink [facility] Utilities Answer Date Recorded In the past 12 months has th e electric, gas, oil, or water [employer] threatened to shut off services in your [...] often do you attend chur ch or jew services? Never 07/19/2023 Do you belong to any clubs o r organizations such as orthodoxy groups, unions, fraternal or athletic groups, or [...] Answer Date Recorded PHQ-2 score 0 07/22/2023 [facility] [place] of Occupat ional Health - Occupational Stress [...] to sleep or slept in a senior care (including now)? No 07/19/2023 Area Deprivation Index Answer Date Vern rded National Score (1-100), lower number is lower ri sk 90 07/19/2023 State Score (1-10), lower number is lower risk 8 07/19/2023 Data from: https://www.neighborhoodatlas.medicine.[facility].edu/. Last address used for calculation [address] [...] on filedocumented in this encounter Care Teams Shipping Processor Relationship Specialty [place] [address] [place] [address] PCP - General Internal Medicine 01/11/22 Sonia Dickerson, BENEFITS SPECIALIST.OPHTHALMIC TECHNICIAN [address] [place] [address] [facility] Internal Medicine 07/30/24 08/29/24 Fatimah Geiger, BENEFITS SPECIALIST.OPHTHALMIC TECHNICIAN [address] [place] [address] [facility] [employer] Internal Medicine 07/30/24 Ruth Richardson, BENEFITS SPECIALIST.OPHTHALMIC TECHNICIAN [address] [place] [address] [facility] Internal Medicine 07/30/24 08/29/24 Berenice Rivas, BENEFITS SPECIALIST.OPHTHALMIC TECHNICIAN [address] [place] [address] [facility] Internal Medicine 07/30/24 08/29/24 Zarina Pope PA-C [address] [place] [address] [facility] Internal Medicine 07/30/24 08/29/24 documented as of this encounter
--- OUTSIDE RECORDS SUMMARY | 2025-04-08 16:56 | XMS_ITS | Encounter Summary ---
Author Organization [facility] Address [address] [place] [address] Care Team Providers Care Vine Fruit Farming Supervisor Name Role Phone Dasha Lujan MD Primary Care Provider Sonia Dickerson CT TECHNOLOGIST.STEAM PIPE FITTER Unavailable Fatimah Geiger CT TECHNOLOGIST.STEAM PIPE FITTER Unavailable Ruth Richardson CT TECHNOLOGIST.STEAM PIPE FITTER Unavailable Berenice Rivas APRN.STEAM PIPE FITTER Unavailable Zarina Pope PA-C Unavailable Source Comments In the event this information is protected by the Federal Confidentiality of Alcohol and Drug AbusePatient Records regulations: The Federal rules restrict any use of the information to criminally investigate or prosecute any alcohol or drug abuse patient.[facility] Encounter Details Date Type Department Care Team (Late st Contact Info) Description 06/18/2024 Patient Msg Internal Medicine [address] [place] [address] Berenice Rivas APRN.STEAM PIPE FITTER [address] [place] [address] Appointment Request Social History Tobacco Use Types Packs/Day Years Used Date Smoking Tobacco: Never Smokeless Tobacco: Never Alcohol Use Standard Drinks/Week Comments Yes 1.3 (1 standard drink = 0.6 oz p ure alcohol) occ. drink [facility] Utilities Answer Date Recorded In the past 12 months has th e electric, gas, oil, or water [employer] threatened to shut off services in your [...] any clubs o r organizations such as anabaptist groups, unions, fraternal or athletic groups, or [...] Answer Date Recorded PHQ-2 score 0 07/22/2023 [facility] of Occupat ional Health - Occupational Stress [...] is lower risk 8 07/19/2023 Data from: https://www.neighborhoodatlas.medicine.[facility].edu/. Last address used for calculation [address] [...] on filedocumented in this encounter Care Teams Vine Fruit Farming Supervisor Relationship Specialty [place] [address] [place] [address] PCP - General Internal Medicine 01/11/22 Sonia Dickerson, CT TECHNOLOGIST.STEAM PIPE FITTER [address] [place] [address] Manager Contact Internal Medicine 07/30/24 08/29/24 Fatimah Geiger, CT TECHNOLOGIST.STEAM PIPE FITTER [address] [place] [address] Manager Contact Internal Medicine 07/30/24 Ruth Richardson, CT TECHNOLOGIST.STEAM PIPE FITTER [address] [place] [address] [facility] Internal Medicine 07/30/24 08/29/24 Berenice Rivas, CT TECHNOLOGIST.STEAM PIPE FITTER [address] [place] [address] [facility] Internal Medicine 07/30/24 08/29/24 Zarina Pope PA-C [address] [place] [address] Manager Contact Internal Medicine 07/30/24 08/29/24 documented as of this encounter
--- OUTSIDE RECORDS SUMMARY | 2025-04-08 16:56 | XMS_ITS | Encounter Summary ---
Author Organization [facility] Address [address] [place] [address] Care Team Providers Care Front Office Representative Name Role Phone Unallocated, Noms Provider Primary Care Provi chrissy Amalia Bruce CHIEF COMPRESSOR STATION ENGINEER Unavailable [phone] Encounter Details Date Type Department Care Team (Late Contact Info) Description 02/06/2025 Abstract [facility] [address] [facility] [place] [address] Roscoe Diaz DO [address] [facility] [place] [address] Social History Tobacco Use Types Packs/Day Years [...] 3:00 PM EDT Routine CHIARA CAAL [address] [facility] [place] [phone] Roscoe Diaz DO [address] [facility] [place] [address] documented as of this encounter Goals Goal Patient Goal Type Associated Problems Recent Progress Patient-Stated? Author Reminders Care Plan OB Reminders No Open Scheduling, Background documented as of this encounter Visit Diagnoses Not on filedocumented in this encounter Additional Health Concerns Active Problems Noted Date Diagnosed Date OB Reminders 10/19/2024 documented as of this encounter Care Teams Front Office Representative Relationship Specialty Start Date End Date Unallocated, Nomgilmar Provider, [address] [place], [place] [phone] PCP - General Family Medicine 10/17/23 Amalia Bruce, TONIA [address] [place] [address] PCP - Capo Commercial 09/22/24 documented as of this encounter
--- OUTSIDE RECORDS SUMMARY | 2025-04-08 16:56 | XMS_ITS | Encounter Summary ---
Author Organization [facility] Address [address] [place] [address] Care Team Providers Care Catapult And Arresting Gear Officer Name Role Phone Unallocated, Noms Provider Primary Care Provi chrissy Amalia Bruce BEEF FARMER Unavailable [phone] Encounter Details Date Type Department Care Team (Late st Contact Info) Description 03/28/2025 Telephone [facility] [address] [place] [address] [place] [address] Jes Garza MA Social History Tobacco Use [...] Garza MA - 03/28/2025 10:29 AM EDT [facility] requesting order for NST/BPP. Order sent to Central scheduling documented in this encounter Plan of Treatment Upcoming Encounters Date Type Department Care Team (Late st Contact Info) Description 04/10/2025 3:00 PM EDT Routine [facility] [address] [facility] [place] [address] Roscoe Diaz DO [address] [place] [address] Scheduled Orders Name Type Priority Associated Diagnoses [...] documented as of this encounter Care Teams Catapult And Arresting Gear Officer Relationship Specialty Start Date End Date Unallocated, Noms Provider, [address] [place] [address] PCP - General Family Medicine 10/17/23 Amalia Bruce, TONIA [address] [place] [address] PCP - Capo Wild 09/22/24 documented as of this encounter
--- OUTSIDE RECORDS SUMMARY | 2025-04-08 16:56 | XMS_ITS | Encounter Summary ---
Author Organization [facility] Address [address] [place] [address] Care Team Providers Care Sausage Cutter Name Role Phone Dasha Lujan MD Primary Care Provider Sonia Dickerson VETERINARY LIVESTOCK INSPECTOR.CEO NA Unavailable [phone] Fatimah Geiger VETERINARY LIVESTOCK INSPECTOR.CEO NA Unavailable Ruth Richardson VETERINARY LIVESTOCK INSPECTOR.CEO NA Unavailable Berenice Rivas APRN.CEO NA Unavailable Zarina Pope PA-C Unavailable Source Comments In the event this information is protected by the Federal Confidentiality of Alcohol and Drug AbusePatient Records regulations: The Federal rules restrict any use of the information to criminally investigate or prosecute any alcohol or drug abuse patient.[facility] Encounter Details Date Type Department Care Team (Late st Contact Info) Description 06/18/2024 Patient Msg Internal Medicine [address] [place] [address] [place] [address] [place] [address] Appointment Request Social History Tobacco Use Types Packs/Day Years Used Date Smoking Tobacco: Never Smokeless Tobacco: Never Alcohol Use Standard Drinks/Week Comments Yes 1.3 (1 standard drink = 0.6 oz p ure alcohol) occ. drink [facility] Utilities Answer Date Recorded In the past 12 months has th e electric, gas, oil, or water [employer] threatened to shut off services in your [...] often do you attend chur ch or restorationist services? Never 07/19/2023 Do you belong to any clubs o r organizations such as caodaism groups, unions, fraternal or athletic groups, or [...] Answer Date Recorded PHQ-2 score 0 07/22/2023 [facility] of Occupat ional Health - Occupational Stress [...] place to sleep or slept in a nursing home (including now)? No 07/19/2023 Area Deprivation Index Answer Date Vern rded National Score (1-100), lower number is lower ri sk 90 07/19/2023 State Score (1-10), lower number is lower risk 8 07/19/2023 Data from: https://www.neighborhoodatlas.medicine.[facility].edu/. Last address used for calculation [address] [...] on filedocumented in this encounter Care Teams Sausage Cutter Relationship Specialty [place] [address] [place] [address] PCP - General Internal Medicine 01/11/22 Sonia Dickerson, V[place]ERINARY [place] [address] [place] [address] Plastics Design Engineer Internal Medicine 07/30/24 08/29/24 Fatimah Geiger, V[place]ERINARY [place] [address] [place] [address] Plastics Design Engineer Internal Medicine 07/30/24 Ruth Richardson, VETERINARY [place] [address] [place] [address] [facility] Internal Medicine 07/30/24 08/29/24 Berenice Rivas, V[place]INARY [place] [address] [place] [address] [facility] Internal Medicine 07/30/24 08/29/24 Zarina Pope PA-C [address] [place] [address] Plastics Design Engineer Internal Medicine 07/30/24 08/29/24 documented as of this encounter
--- OUTSIDE RECORDS SUMMARY | 2025-04-08 16:56 | XMS_ITS | Encounter Summary ---
Author Organization [facility] Address [address] [place] [address] Care Team Providers Care High Lift Driver Name Role Phone Unallocated, Noms Provider Primary Care Provi chrissy Amalia Bruce SURGICAL CODER Unavailable [phone] Encounter Details Date Type Department Care Team [...] Routine [facility] [address] [place] [address] Roscoe Diaz DO [address] [place], [place] [id number] documented as of this encounter Goals Goal Patient Goal Type Associated Problems Recent Progress Patient-Stated? Author Reminders Care Plan OB Reminders No Open Scheduling, Background documented as of this encounter Visit Diagnoses Not on filedocumented in this encounter Additional Health Concerns Active Problems Noted Date Diagnosed Date OB Reminders 10/19/2024 documented as of this encounter Care Teams High Lift Driver Relationship Specialty Start Date End Date Unallocated, Noms Provider, [address] [place] [address] PCP - General Family Medicine 10/17/23 Amalia Bruce, TONIA [address] [place] [address] PCP - Capo Wild 09/22/24 documented as of this encounter
--- OUTSIDE RECORDS SUMMARY | 2025-04-08 16:56 | XMS_ITS | Encounter Summary ---
Author Organization [facility] Address [id number] [address] [place] [address] Care Team Providers Care Assembler Brazer Name Role Phone Unavailable Primary Care Provider [...]
--- OUTSIDE RECORDS SUMMARY | 2025-04-08 16:56 | XMS_ITS | Encounter Summary ---
Author Organization [facility] Address [address] [place] [address] Care Team Providers Care Dental Hygiene Teacher Name Role Phone Unallocated, Noms Provider Primary Care Provi chrissy Amalia Bruce BEHAVIORAL PEDIATRICIAN Unavailable [phone] Encounter Details Date Type Department Care Team (Late st Contact Info) Description 03/27/2025 Bamboo flowsheet CHIARA CAAL [address] [facility] [place] [address] Roscoe Diaz DO [address] [facility] [address] [place], [id number] Social History Tobacco Use Types Packs/Day Years [...] 3:00 PM EDT Routine CHIARA SILVAGYN [address] [place] [phone] Roscoe Diaz DO [address] [place] [address] documented as of this encounter Goals Goal Patient Goal Type Associated Problems Recent Progress Patient-Stated? Author Reminders Care Plan OB Reminders No Open Scheduling, Background documented as of this encounter Visit Diagnoses Not on filedocumented in this encounter Additional Health Concerns Active Problems Noted Date Diagnosed Date OB Reminders 10/19/2024 documented as of this encounter Care Teams Dental Hygiene Teacher Relationship Specialty Start Date End Date Unallocated, Noms Provider, MD [address] [place], [place] [address] PCP - General Family Medicine 10/17/23 Amalia Bruce, TONIA [address] [place] [address] PCP - Capo Wild 09/22/24 documented as of this encounter
--- OUTSIDE RECORDS SUMMARY | 2025-04-08 16:56 | XMS_ITS | Encounter Summary ---
Author Organization [facility] Address [address] [place] [address] Care Team Providers Care Gaming Cage Worker Name Role Phone Unallocated, Noms Provider Primary Care Provi chrissy Amalia Bruce ANIMATION PRODUCER Unavailable [phone] Encounter Details Date Type Department Care Team (Late st Contact Info) Description 02/04/2025 Results Follow-Up [facility]IARA [place] OBGYLee [address] [facility] [address] Monika Mesa LPN [address] [employer] [place] [id number] ALL CBC WITH AUTO DIFF, GLUCOSE 1 [...] EDT Routine CHIARA [place] OBGYN [address] [facility] [place] [address] Roscoe Diaz DO [address] [facility] [place] [address] documented as of this encounter Goals Goal Patient Goal Type Associated Problems Recent Progress Patient-Stated? Author Reminders Care Plan OB Reminders No Open Scheduling, Background documented as of this encounter Visit Diagnoses Not on filedocumented in this encounter Additional Health Concerns Active Problems Noted Date Diagnosed Date OB Reminders 10/19/2024 documented as of this encounter Care Teams Gaming Cage Worker Relationship Specialty Start Date End Date Unallocated, Noms Herlinda, [address] [place] [address] PCP - General Family Medicine 10/17/23 Amalia Bruce, TONIA [address] [place] [address] PCP - Capo Wild 09/22/24 documented as of this encounter
--- OUTSIDE RECORDS SUMMARY | 2025-04-08 16:56 | XMS_ITS | Encounter Summary ---
Author Organization [facility] Address [address] [place] [address] Care Team Providers Care Circuit Designer Name Role Phone Unallocated, Noms Provider Primary Care Provi chrissy Amalia Bruce BUSINESS OPERATIONS DIRECTOR Unavailable [phone] Encounter Details Date Type Department Care Team (Latest Contact Info) Description 04/06/2025 Travel Social History Tobacco Use Types Packs/Day [...] Elizabeth OBGYN [address] [place] [address] Rsocoe Diaz DO [address] [place], [place] [phone] documented as of this encounter Goals Goal Patient Goal Type Associated Problems Recent Progress Patient-Stated? Author Reminders Care Plan OB Reminders No Open Scheduling, Background documented as of this encounter Visit Diagnoses Not on filedocumented in this encounter Additional Health Concerns Active Problems Noted Date Diagnosed Date OB Reminders 10/19/2024 documented as of this encounter Care Teams Circuit Designer Relationship Specialty Start Date End Date Unallocated, Noms Provider, [address] [place] [address] PCP - General Family Medicine 10/17/23 Amalia Bruce, TONIA [address] [place] [address] PCP - Capo Wild 09/22/24 documented as of this encounter
--- OUTSIDE RECORDS SUMMARY | 2025-04-08 16:56 | XMS_ITS | Encounter Summary ---
Author Organization [facility] tem Address [place]-[id number] [address] [place] [address] Care Team Providers Care Hospital Television Rental Clerk Name Role Phone Unavailable Primary Care Provider Unavailabl e Encounter Details Date Type Department Care Team (Late st Contact Info) Description 04/01/2025 Telephone Maternal- Medicine at [facility] [address] [facility] [place] [address] Blanquita Toney, KARISSA Social History Tobacco Use [...]
--- OUTSIDE RECORDS SUMMARY | 2025-04-08 16:56 | XMS_ITS | Encounter Summary ---
Author Organization [facility] tem Address [id number] [address] [place] [address] Care Team Providers Care Public Transit Trolley Driver Name Role Phone Unavailable Primary Care Provider Unavailabl e Encounter Details Date Type Department Care Team (Late st Contact Info) Description 02/07/2025 Orders Only Maternal- Medicine at [facility] [address] [place] [address] Ref Prov, [place] [address] Social History Tobacco Use Types Packs/Day Years [...] ORDERABLES Madelaine l Result Performing Organization Address City/[facility] Co de Phone Number MANUALLY TRANSCRIBED RESULTS * Unlisted Genetic Test (02/07/2025 10:32 AM EDT) us Not In System Ref Prov LAB BLOOD ORDERABLES Madelaine l Result Performing Organization Address City/[facility] Co de Phone Number MANUALLY TRANSCRIBED RESULTS documented in this encounter Visit Diagnoses Not on filedocumented in this encounter
--- OUTSIDE RECORDS SUMMARY | 2025-04-08 16:56 | XMS_ITS | Encounter Summary ---
Author Organization [facility] tem Address [id number] [address] [place] [address] Care Team Providers Care Head Librarian Name Role Phone Unavailable Primary Care Provider Unavailabl e Encounter Details Date Type Department Care Team (Late st Contact Info) Description 04/01/2025 Telephone Maternal- Medicine at [facility] [address] [facility] [place] [address] Blanquita Toney, KARISSA Social History Tobacco Use [...]
--- OUTSIDE RECORDS SUMMARY | 2025-04-08 16:56 | XMS_ITS | Clinical Summary ---
Author Organization [facility] [email or web address] [facility] tem Address [facility] [place][id number] [address] [place] [address] Care Team Providers Care Space And Missile Operations Spacelift Name Role Phone Unavailable Primary Care Provider Unavailabl e Allergies No known active allergies Medications 25-IRON [id number] ORAL Take 1 tablet by mouth in [...] 10:00 AM EDT Telemedicine Maternal- Medicine at [facility] [address] [place] [address] Daisha Morel PA-C Gestational diabetes requiring insulin (Primary Dx) 04/01/2025 Telephone Maternal- Medicine at [facility] [address] [place] [address] Blanquita Toney, KARISSA 04/01/2025 Travel 04/01/2025 Telephone Maternal- Medicine at [facility] [address] [place] [address] Blanquita Toney, KARISSA 03/26/2025 Telephone Maternal- Medicine at [place] [address] [place] [address] Devika Pope LD 03/19/2025 Telephone Maternal- Medicine at [place] [address] [place] [address] Fatimah Ball LD 03/12/2025 1:30 PM EDT Office Visit Maternal- Medicine at [place] [address] [place] [address] Daisha Morel PA-C Gestational diabetes mellitus (GDM) in second trimester, gestational diabetes method of control unspecified (Primary Dx); Gestational diabetes requiring insulin 03/12/2025 Travel 03/05/2025 Telephone Maternal- Medicine at [facility] [address] [place] [address] Devika Pope LD 02/26/2025 Telephone Maternal- Medicine at [place] [address] [place] [address] Devika Pope LD 02/14/2025 1:30 PM EDT Support Visit Maternal- Medicine at [place] [address] [place] [address] Hien Giles RN Devika Pope, LD Gestational diabetes mellitus (GDM) in second trimester, gestational diabetes method of control unspecified (Primary Dx) 02/13/2025 Travel 02/07/2025 Orders Only Maternal- Medicine at [facility] [address] [place] [address] Ref Prov, Not In System 02/07/2025 Abstract Maternal- Medicine at [facility] [address] [place] [address] External, Scanning Provider from Last 3 Months [...] ORDERABLES Final Re sult Performing Organization Address City/[facility]/ZIP Co de Phone Number MANUALLY TRANSCRIBED RESULTS [...]
--- OUTSIDE RECORDS SUMMARY | 2025-04-08 16:56 | XMS_ITS | Encounter Summary ---
Author Organization [facility] Address [address] [place] [address] Care Team Providers Care Sheet Metal Layout Mechanic Name Role Phone Unallocated, Noms Provider Primary Care Provi chrissy Amalia Bruce BUSINESS ANALYST SALES OPERATIONS Unavailable [phone] Encounter Details Date Type Department Care Team (Late Contact Info) Description 01/09/2025 Abstract [facility]ARA [facility]AL [address] [place] [address] Roscoe Diaz DO [address] [facility] [place] [address] Social History Tobacco Use Types Packs/Day Years [...] 3:00 PM EDT Routine CHIARA CAAL [address] [facility] [place] [address] Roscoe Diaz DO [address] [facility] [place] [address] documented as of this encounter Goals Goal Patient Goal Type Associated Problems Recent Progress Patient-Stated? Author Reminders Care Plan OB Reminders No Open Scheduling, Background documented as of this encounter Visit Diagnoses Not on filedocumented in this encounter Additional Health Concerns Active Problems Noted Date Diagnosed Date OB Reminders 10/19/2024 documented as of this encounter Care Teams Sheet Metal Layout Mechanic Relationship Specialty Start Date End Date Unallocated, Nomgilmar Provider, [address] [place], [place] [phone] PCP - General Family Medicine 10/17/23 Amalia Bruce, TONIA [address] [place] [address] PCP - Capo Commercial 09/22/24 documented as of this encounter
--- OUTSIDE RECORDS SUMMARY | 2025-04-08 16:56 | XMS_ITS | Clinical Summary ---
Author Organization [facility] Address [address] [place] [address] Care Team Providers Care Driver Guide Name Role Phone Unallocated, Noms Provider Primary Care Provi chrissy Amalia Bruce HEDIS SPECIALIST Unavailable [phone] Allergies No known active allergies Medications omeprazole OTC (PriLOSEC OTC) 20 MG EC tablet Take 20 mg by mouth in the morning. Take before meals. Do not crush, chew, or split.. Active Vit-Fe Fumarate-FA ( 19) 29-1 MG chewable tabletIndication s:, unspecified gestational age ([facility]) Chew 1 each Daily 30 tablet 11 5 Active Alcohol Swabs (Alcohol Prep Pad) 70 % padsIndications: Gestational diabetes mellitus (GDM), antepartum, gestational diabetes method of control unspecified ([facility]),Elevat ed glucose tolerance test Apply 1 Pad topically Daily Use four times daily to check FSBS. 150 each 3 5 Active Blood Glucose Monitoring Suppl (D-Care Glucometer) w/Device kitIndications:G estational diabetes mellitus (GDM), antepartum, gestational diabetes method of control unspecified ([facility]),Elevat ed glucose tolerance test 1 kit Daily Use four times daily to check FSBS. In the morning prior to breakfast & 1 hour after each meal for a total of 4times daily. 1 kit 5 02/05/20 26 Active insulin glargine (Lantus SoloStar) 100 UNIT/ML pen Inject 10 Units under the skin at bedtime Active aspirin 81 MG EC tablet Take 81 mg by mouth Daily Active Encounters Date Type Department Care Team Description 04/08/2025 10:00 AM EDT [place] [address] H/O gastric sleeve 04/06/2025 Travel 04/05/2025 Telephone [facility] [address] [place] [address] Monika MesaCOOPER 04/01/2025 Clinisync Result Encounter NOMS External Department Unsolicited Rosy Quiroz PA 03/28/2025 Telephone [facility] [address] [place] [address] Jes Garza MA 03/27/2025 2:00 PM [place] [address] Roscoe Diaz DO Third trimester ([facility]); H/O gastric sleeve; Gestational diabetes mellitus (GDM), antepartum, gestational diabetes method of control unspecified ([facility]); 32 weeks gestation of ([facility]) 03/27/2025 Bamboo flowsheet [facility] [address] [place] [address] Roscoe Diaz DO 03/27/2025 Travel 03/13/2025 3:50 PM EDT Routine [facility] [address] [place] [address] Rosy Quiroz PA 30 weeks gestation of ([facility]); Third trimester ([facility]); H/O gastric sleeve; Gestational diabetes mellitus (GDM), antepartum, gestational diabetes method of control unspecified ([facility]) 03/13/2025 Bamboo flowsheet [facility] [address] [place] [address] Rosy Quiroz PA 03/10/2025 Travel 02/27/2025 1:40 PM [place] [address] Roscoe Diaz, 28 weeks gestation of ([facility]); Third trimester ([facility]); H/O gastric sleeve; Gestational diabetes mellitus (GDM), antepartum, gestational diabetes method of control unspecified ([facility]) 02/27/2025 1:00 PM EDT [place] [address] H/O gastric sleeve 02/26/2025 Travel 02/11/2025 11:30 [place] [address] Rosy Quiroz PA Second trimester ([facility]); 26 weeks gestation of ([facility]); H/O gastric sleeve 02/11/2025 Travel 02/06/2025 [place] [address] Roscoe Diaz, DO 02/04/20[place] [address] Monika Mesa LPN 02/04/2025 Results [place] [address] Monika Mesa LPN ALL CBC WITH AUTO DIFF, GLUCOSE 1 HOUR 02/01/20[place] [address] Ana Csotello MA 02/01/2025 Clinisync Result Encounter NOMS External Department Unsolicited Roscoe Diaz, 01/30/2025 1:00 PM EDT Ancillary Procedure [facility] [address] [place] [address] Encounter for follow-up ultrasound of anatomy ([facility]) 01/27/2025 Travel 01/10/2025 10:10 AM EDT Routine [facility] [address] [place] [address] Roscoe Diaz, DO 21 weeks gestation of ([facility]); Second trimester ([facility]); Diabetes mellitus screening 01/10/2025 Bamboo flowsheet [facility] [address] [place] [address] Roscoe Diaz, 01/09/2025 Abstract [facility] [address] [facility] [place] [address] Roscoe Diaz, 01/07/2025 Telephone [facility] [address] [place] [address] Jes Garza MA from Last 3 Months Family History Medical [...] PM EDT Routine [facility] [address] [place] [address] Roscoe Diaz DO [address] [facility] [place] [address] Health Maintenance Due Date Last Done Comments [...] Routine 03/27/2025 2:49 PM EDT Third trimester ([facility]) H/O gastric sleeve Gestational diabetes mellitus (GDM), antepartum, gestational diabetes method of control unspecified ([facility]) 32 weeks gestation of ([facility]) POCT URINALYSIS DIPSTICK Routine 03/13/2025 3:46 PM EDT 30 weeks gestation of ([facility]) Third trimester ([facility]) POCT URINALYSIS DIPSTICK Routine 02/27/2025 2:04 PM EDT 28 weeks gestation of ([facility]) Third trimester ([facility]) US OB FOLLOW UP TRANSABDOMINAL APPROACH Routine 02/27/2025 1:40 PM EDT H/O gastric sleeve POCT URINALYSIS DIPSTICK Routine 02/11/2025 11:50 AM EDT Second trimester ([facility]) GLUCOSE 1 HOUR Routine 02/01/2025 9:28 AM EDT ALL CBC WITH AUTO DIFF Routine 9:28 AM EDT US OB LIMITED 1+ FETUSES Routine 01/30/2025 1:20 PM EDT Encounter for follow-up ultrasound of anatomy ([facility]) POCT URINALYSIS DIPSTICK Routine 01/10/2025 10:40 AM EDT 21 weeks gestation of ([facility]) Second trimester ([facility]) PAP SMEAR Routine 12/10/2024 12:00 AM EDT from Last 3 Months or Most Recently Relevant to Health Maintenance Results * US OB BPP W NON-STRESS (04/01/2025 3:29 PM EDT) Anatomical Region Laterality Modality Other 04/01/2025 3:29 PM EDT Narrative 04/01/2025 3:31 PM EDT [address] [address] Ultrasound Report Signed Patient: TRUDI ZAMARRIPA MR#: [id number] : 1990 Acct:[id number] Age/Sex: 34 / F ADM Date: 04/01/25 Loc: [facility] 250-[address]: Rosy Quiroz Ordering Physician: Rosy Quiroz Date of Service: 04/01/25 Procedure(s): US OB BPP w non-stress Accession Number(s): [id number] cc: Rosy Quiroz; Physician,Non-Staff MMickey The [address] [address] Patient Name: TRUDI ZAMARRIPA MRN: [facility]:[id number] date: 1990 Sex: F Assigned Patient Location: Current Patient Location: US Accession/Order Number: [id number] Exam Date: 04/01/2025 15:28 Report Date: 04/01/2025 15:29 At the request of: ROSY QUIROZ Procedure: US OB BPP w non-stress Biophysical profile. Reason for exam: History of gastric sleeve surgery COMPARISON: None TECHNIQUE: Transabdominal imaging of the gravid uterus was obtained. FINDINGS: The van helper reports a BPP of 8 out of 8. HELLEN is normal at 10.8 cm. heart rate 125 bpm. US/US OB BPP w non-stress IMPRESSION: BPP 8 out of 8. Impression dictated by: Cy Jensen Jr., D.O. 04/01/2025 3:29 PM Dictation Location: [place] [address] Electronically authenticated by: [id number] Y Date: 04/01/2025 15:29 Dictated By: Cy Jensen M.D. Signed By: 04/01/25 1531 DD/ 1529 TD/TT: Balance Staff Staker: Procedure Note Radiology, Radiologist, - 04/01/2025 [place] [address] Ultrasound Report Signed Patient: TRUDI ZAMARRIPA JMR#: [id number] : 1990Acct:[id number] Age/Sex: 34 / FADM Date: 04/01/25 Loc: [facility] 250-[address]: Rosy Quiroz Ordering Physician: Rosy Quiroz Date of Service: 04/01/25 Procedure(s): US OB BPP w non-stress Accession Number(s): [id number] cc: Rosy Quiroz; Physician,Non-Staff Shimon The [place] [id number] Patient Name: TRUDI ZAMARRIPA MRN: [id number] date: 1990 Sex: F Assigned Patient Location: US Current Patient Location: US Accession/Order Number: [id number] Exam Date: 04/01/2025 15:28 Report Date: 04/01/2025 15:29 At the request of: ROSY QUIROZ Procedure: US OB BPP w non-stress Biophysical profile. Reason for exam: History of gastric sleeve surgery COMPARISON: None TECHNIQUE: Transabdominal imaging of the gravid uterus was obtained. FINDINGS: The van helper reports a BPP of 8 out of 8. HELLEN is normal at10.8 cm. heart rate 125 bpm. US/US OB BPP w non-stress IMPRESSION: BPP 8 out of 8. Impression dictated by: Cy Jensen Jr., D.O. 04/01/2025 3:29 PM Dictation Location: [place] [address] Electronically authenticated by: [id number] Y Date: 5:29 Dictated By: Cy Jensen M.D. Signed By:04/01/25 1531 DD/ 1529 TD/TT: Balance Staff Staker: Rosy Quiroz [place] [facility] Final Result * (ABNORMAL) POCT [...] CECILIA - 02/01/2025 11:36 AM EDT us Roscoe Joe DO LAB BLOOD ORDERABLES Final Resul t CECILIA [facility] * (ABNORMAL) ALL CBC WITH [...] 9:30 AM EDT Narrative [facility] - 02/01/2025 9:37 AM EDT us Roscoe Joe DO [facility] Final Result [facility] TB * US OB limited 1+ fetuses (01/30/2025 [...] II, MD, PHD at 01-Feb-2025 10:22:21 AM [facility] Procedure Note Brittany Ferreira MD - 02/01/2025 EXAM: US OB LIMITED [...] signed by BRITTANY FERREIRA II, MD, PHD [id number] 10:22:21 AM [facility] us Roscoe Diaz DO IM OB US PROCEDURES Final Resul t * Pap Smear (12/10/2024 12:00 AM EDT) Swab Cervical swab / Unknown us Joe Nurse N[facility] Bcp Ob LAB CYTOLOGY ORDERABLES Final Result EXTERNAL LAB from Last 3 Months or Most Recently Relevant to Health Maintenance Additional Health Concerns Active Problems Noted Date Diagnosed Date OB Reminders 10/19/2024 Insurance BS Care Teams Driver Guide Relationship Specialty Start Date End Date Unallocated, Noms Provider, [address] [place], [place] [id number] PCP - General Family Medicine 10/17/23 Amalia Bruce NP [address] [place] [address] PCP - Capo Wild 09/22/24
--- OUTSIDE RECORDS SUMMARY | 2025-04-08 16:56 | XMS_ITS | Encounter Summary ---
Author Organization [facility] Address [address] [place] [address] Care Team Providers Care Accounts Specialist Name Role Phone Unallocated, Noms Provider Primary Care Provi chrissy Amalia Bruce SUGAR BOILER Unavailable [phone] Encounter Details Date Type Department Care Team (Late st Contact Info) Description 12/26/2024 Orders Only [facility] [address] [address] Iman Saldana LPN [address] [place] [id number] Social History Tobacco Use Types Packs/Day Years [...] 3:00 PM EDT Routine [facility] [address] [place] [address] Roscoe Diaz DO [address] [facility] [place] [address] documented as of this encounter Goals Goal [...] documented as of this encounter Care Teams Accounts Specialist Relationship Specialty Start Date End Date Unallocated, Noms Provider, [address] [place] [address] PCP - General Family Medicine 10/17/23 Amalia Bruce, T[address]IA [address] [place] [address] PCP - Capo Wild 09/22/24 documented as of this encounter
--- OUTSIDE RECORDS SUMMARY | 2025-04-08 16:56 | XMS_ITS | Encounter Summary ---
Author Organization [facility] Address [address] [place] [address] Care Team Providers Care Tape Folding Machine Operator Name Role Phone Unallocated, Noms Provider Primary Care Provi chrissy Amalia Bruce HYDROGEN PLANT OPERATOR Unavailable [phone] Reason for Visit * Reason Onset Date Comments Med Refill 10/23/2024 Encounter Details Date Type Department Care Team (Late Contact Info) Description 10/23/2024 Refill [facility] [address] [facility] [address] [place] [address] Unallocated, Noms Provider, [address] [place] [address] Social History Tobacco Use Types Packs/Day Years [...] PM EDT Routine [facility] [address] [place] [address] Roscoe Diaz DO [address] [facility] [place] [address] documented as of this encounter Goals Goal Patient Goal Type Associated Problems Recent Progress Patient-Stated? Author Reminders Care Plan OB Reminders No Open Scheduling, Background documented as of this encounter Visit Diagnoses Not on filedocumented in this encounter Additional Health Concerns Active Problems Noted Date Diagnosed Date OB Reminders 10/19/2024 documented as of this encounter Care Teams Tape Folding Machine Operator Relationship Specialty Start Date End Date Unallocated, Noms Provider, [address] [place] [address] PCP - General Family Medicine 10/17/23 Amalia Bruce, TONIA [address] [place] [address] PCP - Capo Commercial 09/22/24 documented as of this encounter
--- OUTSIDE RECORDS SUMMARY | 2025-04-08 16:56 | XMS_ITS | Encounter Summary ---
Author Organization [facility] tem Address [id number] [address] [place] [address] Care Team Providers Care [employer] Combat Skills Name Role Phone Unavailable Primary Care Provider Unavailabl e Encounter Details Date Type Department Care Team (Late st Contact Info) Description 03/26/2025 Telephone Maternal- Medicine at [facility] [address] [place] [address] Devika Pope LD [address] [place] [address] Social History Tobacco Use Types Packs/Day Years [...] Lantus in the evening. Will send a [employer] message. documented in this encounter Plan of Treatment Not on file documented as of this encounter Visit Diagnoses Not on filedocumented in this encounter
--- OUTSIDE RECORDS SUMMARY | 2025-04-08 16:56 | XMS_ITS | Encounter Summary ---
Author Organization [facility] Address [address] [place] [address] Care Team Providers Care Muck Farmer Name Role Phone Unallocated, Noms Provider Primary Care Provi chrissy Amalia Bruce PATIENT SERVICES CLERK Unavailable [phone] Encounter Details Date Type Department Care Team (Late st Contact Info) Description 04/05/2025 Telephone [facility] [address] [place] [address] Monika Mesa LPN [address] [place] [address] Social History Tobacco Use Types Packs/Day Years [...] encounter Miscellaneous Notes * Telephone Encounter - Monika Mesa LPN - 04/05/2025 10:39 AM EDT Pt needed standing order documented in this encounter Plan of Treatment Upcoming Encounters Date Type Department Care Team (Late st Contact Info) Description 04/10/2025 3:00 PM EDT Routine [facility] [address] [facility] [address] Roscoe Diaz DO [address] [facility] [place] [address] Pending Results Name Type Priority Associated Diagnoses Date /Time US OB follow up transabdominal approach Imaging Routine H/O gastric sleeve 04/08/2025 10:27 AM EDT Scheduled Orders Name Type Priority Associated Diagnoses Orde r Schedule US OB follow up transabdominal approach Imaging Routine H/O gastric sleeve Expected: 04/05/2025, Expires: 08/05/2025 documented as of this encounter Goals Goal Patient Goal Type Associated Problems Recent Progress Patient-Stated? Author Reminders Care Plan OB Reminders No Open Scheduling, Background documented as of this encounter Visit Diagnoses Diagnosis H/O gastric sleeve documented in this encounter Additional Health Concerns Active Problems Noted Date Diagnosed Date OB Reminders 10/19/2024 documented as of this encounter Care Teams Muck Farmer Relationship Specialty Start Date End Date Unallocated, Noms Provider, [address] [place] [address] PCP - General Family Medicine 10/17/23 Amalia Bruce, TONIA [address] [place] [address] PCP - Capo Commercial 09/22/24 documented as of this encounter
[2025-04-08 17:22] VITALS: BP 100/55; PULSE 70
== END 2025-04-08 17:47 | disposition home or self-care (01) ==
LOC: US 16:54 → FBC 16:55
PROVIDERS: Visit Provider Physician Assistant
DX: O99.843 Bariatric surgery status complicating pregnancy, third trimester (principal); Z3A.34 34 weeks gestation of pregnancy
CPT/HCPCS: 76818

== ENCOUNTER 2025-04-11 13:02 | Outpatient (OUT) | payer BC, SELFPAY ==
--- OUTSIDE RECORDS SUMMARY | 2025-04-01 10:00 | XMS_ITS | Encounter Summary ---
Author Organization [facility] tem Address [id number] [address] [place] [address] Care Team Providers Care Gristmiller Name Role Phone Unavailable Primary Care Provider Milan e Encounter Details Date Type Department Care Team (Late st Contact Info) Description 04/01/2025 10:00 AM EDT Telemedicine Maternal- Medicine at [facility] [address] [place] [address] Daisha Morel PA-C [address] [address] Gestational diabetes requiring insulin (Primary Dx) Social [...] insulinnightly, Disp: 100 each, Rfl: 2 25-IRON [id number] ORAL, Take 1 tablet by mouth in [...] Delivery recommendations : - Recommend delivery at 74l1b-74g3l - reviewed with pateint - Discuss delivery [...] by e-mail to: or by fax to: [phone] Daisha Morel PA-C Maternal- Medicine Office phone: [phone] Daisha Morel PA-C 04/01/25 1331 documented in this encounter Plan of Treatment Not on file documented as of this encounter Visit Diagnoses Diagnosis Gestational diabetes requiring insulin- Primary Abnormal maternal glucose tolerance, complicating , childbirth, or the puerperium, unspecified as to episode of care documented in this encounter
--- OUTSIDE RECORDS SUMMARY | 2025-04-08 10:00 | XMS_ITS | Encounter Summary ---
Author Organization [facility] Address [address] [place] [address] Care Team Providers Care Guard Driver Name Role Phone Unallocated, Noms Provider Primary Care Provi chrissy Amalia Bruce GENERAL FARMER Unavailable [phone] Encounter Details Date Type Department Care Team (Latest Contact Info) Description 04/08/2025 10:00 AM EDT Ancillary Procedure [facility] [address] [place] [address] H/O gastric sleeve Social History Tobacco Use Types Packs/Day Years [...] Care Team (Late st Contact Info) Description 04/24/2025 11:30 AM EDT Routine [facility] [address] [place] [address] Roscoe Diaz DO [address] [facility] [address] [place] [address] documented as of this encounter Goals Goal Patient Goal Type Associated Problems Recent Progress Patient-Stated? Author Reminders Care Plan OB Reminders No Open Scheduling, Background documented as of this encounter Procedures Procedure Name Priority Date/Time Associated Diagnosis Comments US OB FOLLOW UP TRANSABDOMINAL APPROACH Routine 04/08/2025 10:27 AM EDT H/O gastric sleeve documented in this encounter Results * US OB follow up transabdominal approach (04/08/2025 10:27 AM EDT) Anatomical Region Laterality Modality Body Ultrasound 04/09/2025 8:01 AM EDT Narrative 04/09/2025 8:01 AM EDT EXAM: US OB FOLLOW UP TRANSABDOMINAL APPROACH HISTORY: History of gastric sleeve. COMPARISON: Ob ultrasound 02/27/2025. TECHNIQUE: Two-dimensional transabdominal grayscale ultrasound imaging of the pelvis was performed. FINDINGS: Gestation: Single Presentation: Cephalic Cardiac Activity: 130 beats per minute Amniotic Fluid Index: 9.9 cm MEASUREMENTS: BPD: 8.5 cm EGA: 34 weeks 1 days HC: 31.5 cm EGA: 35 weeks 2 days AC: 31.2 cm EGA: 35 weeks 1 days FL: 6.9 cm EGA: 35 weeks 3 days HC/AC Ratio: 1.01 The gestational age by today's ultrasound is 35 weeks 0 days (+/- 17 days gestation). Estimated Weight: 2597 grams, +/- 390 grams ( 5 lb 12 oz). Weight Percentile for gestational age: 73 % IMPRESSION: 1. Single, live intrauterine gestation 34 weeks, 1 days by LMP. Today's ultrasound measurements correlate with a gestational age of 35 weeks 0 days. Estimated weight is 2597 grams, +/- 390 grams ( 5 lb 12 oz) which correlates to 73 %. VALENTIN by today's ultrasound is 05/13/2025. Interpreted by: Electronically signed by BRITTANY FERREIRA II, MD, PHD at 09-Apr-2025 07:59:18 AM [facility] Procedure Note Brittany Ferreira MD - 04/09/2025 EXAM: US OB FOLLOW UP TRANSABDOMINAL APPROACH HISTORY: History of gastric sleeve. COMPARISON: Ob ultrasound 02/27/2025. TECHNIQUE: Two-dimensional transabdominal grayscale ultrasound imaging ofthe pelvis was performed. FINDINGS: Gestation: Single Presentation: Cephalic Cardiac Activity: 130 beats per minute Amniotic Fluid Index: 9.9 cm MEASUREMENTS: BPD: 8.5 cm EGA: 34 weeks 1 days HC: 31.5 cm EGA: 35 weeks 2 days AC: 31.2 cm EGA: 35 weeks 1 days FL: 6.9 cm EGA: 35 weeks 3 days HC/AC Ratio: 1.01 The gestational age by today's ultrasound is 35 weeks 0 days (+/- 17 daysgestation). Estimated Weight: 2597 grams, +/- 390 grams ( 5 lb 12 oz). Weight Percentile for gestational age: 73 % IMPRESSION: 1. Single, live intrauterine gestation 34 weeks, 1 days by LMP. Today'sultrasound measurements correlate with a gestational age of 35 weeks 0days. Estimated weight is 2597 grams, +/- 390 grams ( 5 lb 12 oz)which correlates to 73 %. VALENTIN by today's ultrasound is 05/13/2025. Interpreted by: Electronically signed by BRITTANY FERREIRA II, MD, PHD [id number] 07:59:18 AM [facility] us Roscoe Joe DO IMG OB US PROCEDURES Final Resul t documented in this encounter Visit Diagnoses Diagnosis H/O gastric sleeve documented in this encounter Additional Health Concerns Active Problems Noted Date Diagnosed Date OB Reminders 10/19/2024 documented as of this encounter Care Teams Guard Driver Relationship Specialty Start Date End Date Unallocated, Noms Provider, [address] [place], [place] [id number] PCP - General Family Medicine 10/17/23 Amalia Bruce NP [address] [place] [address] PCP - [place] [employer] 09/22/24 documented as of this encounter
--- OUTSIDE RECORDS SUMMARY | 2025-04-10 15:00 | XMS_ITS | Encounter Summary ---
Author Organization [facility] Address [address] [place] [address] Care Team Providers Care Composition Worker Name Role Phone Unallocated, Noms Provider Primary Care Provi chrissy Amalia Bruce SENIOR SERVICE AIDE Unavailable [phone] Encounter Details Date Type Department Care Team (Late st Contact Info) Description 04/10/2025 3:00 PM EDT Routine [facility] [place] [facility] [address] [place] [address] Roscoe Diaz DO [address] [facility] [address] [place], [facility]11 34 weeks gestation of ([facility]); Third trimester ([facility]); H/O gastric sleeve; Insulin controlled gestational diabetes mellitus (GDM) during , antepartum ([facility]) Social History Tobacco Use Types Packs/Day [...] Sign Reading Time Taken Comments Blood Pressure 120/70 04/10/2025 3:14 PM EDT Pulse - - Temperature - - Respiratory Rate - - Oxygen Saturation - - Inhaled Oxygen Concentration - - Weight 95.3 kg (210 lb 1.9 oz) 04/10/2025 3:14 P M EDT Height - - Body Mass Index 37.22 07/25/2024 2:19 PM EST documented in this encounter Plan of Treatment Upcoming Encounters Date Type Department Care Team (Late st Contact Info) Description 04/24/2025 11:30 AM EDT Routine [facility] [address] [place] [address] Roscoe Diaz DO [address] [facility] [place] [address] documented as of this encounter Goals Goal Patient Goal Type Associated Problems Recent Progress Patient-Stated? Author Reminders Care Plan OB Reminders No Open Scheduling, Background documented as of this encounter Procedures Procedure Name Priority Date/Time Associated Diagnosis Comments POCT URINALYSIS DIPSTICK Routine 04/10/2025 3:21 PM EDT 34 weeks gestation of ([facility]) Third trimester ([facility]) documented in this encounter Results * (ABNORMAL) POCT urinalysis dipstick manually resulted (04/10/2025 3:21 PM EDT) Color, UA Yellow Clarity, UA Clear Glucose, UA Negative Negative - 1999(110) ++++ mg/dL Bilirubin, UA Negative Negative - 4(70) +++ mg/dL Ketones, UA Negative Negative - 160(16) ++++ mg/dL Spec Grav, UA 1.015 1 - 1.03 Blood, UA Negative Negative - 50 Iraj/mcL pH, UA 6.0 5 - 9 Protein, UA Positive Negative - 1999(20) ++++ mg/dL Urobilinogen, UA 1.0 0.2 - 12 mg/dL Leukocytes, UA Positive Negative - 500+++ Mari/mcL Nitrite, UA Negative Negative - Positive Urine 04/10/2025 3:21 PM EDT Roscoe Diaz DO POINT OF CARE TEST ENTER/EDIT OR DERABLES Final Result documented in this encounter Visit Diagnoses Diagnosis 34 weeks gestation of ([facility]) Third trimester ([facility]) state, incidental H/O gastric sleeve Insulin controlled gestational diabetes mellitus (GDM) during , antepartum ([facility]) documented in this encounter Additional Health Concerns Active Problems Noted Date Diagnosed Date OB Reminders 10/19/2024 documented as of this encounter Care Teams Composition Worker Relationship Specialty Start Date End Date Unallocated, Noms Provider, [address] [place] [address] PCP - General Family Medicine 10/17/23 Amalia Bruce, TONIA [address] [place] [address] PCP - Capo Wild 09/22/24 documented as of this encounter
--- OUTSIDE RECORDS SUMMARY | 2025-04-11 13:04 | XMS_ITS | Encounter Summary ---
Author Organization [facility] Address [facility] [place] [address] Care Team Providers Care Application Security Consultant Name Role Phone Dasha Lujan MD Primary Care Provider Sonia Dickerson COTTON DISPATCHER.RANGE MANAGER Unavailable Fatimah Geiger COTTON DISPATCHER.RANGE MANAGER Unavailable Ruth Richardson COTTON DISPATCHER.RANGE MANAGER Unavailable Berenice Rivas COTTON DISPATCHER.RANGE MANAGER Unavailable Zarina Pope-C Unavailable Source Comments In the event this information is protected by the Federal Confidentiality of Alcohol and Drug AbusePatient Records regulations: The Federal rules restrict any use of the information to criminally investigate or prosecute any alcohol or drug abuse patient.[facility] Encounter Details Date Type Department Care Team (Late st Contact Info) Description 06/21/2023 Patient Msg Internal Medicine [address] [place] [address] Provider, [facility] APPOINTMENT CANCELED Social History Tobacco Use Types Packs/Day Years Used Date Smoking Tobacco: Never Smokeless Tobacco: Never Alcohol Use Standard Drinks/Week Comments Yes 1.3 (1 standard drink = 0.6 oz p ure alcohol) occ. drink Social Connection and Isolation Panel Answer Date Recorded In a typical week, how many times do you talk on the phone with family, friends, or neighbors? More than three times a week 01/12/2022 How often do you get togethe r with friends or relatives? Three times a week 01/12/2022 How often do you attend chur or hindu services? Never 01/12/2022 Do you belong to [...] Answer Date Recorded PHQ-2 score 0 01/12/2022 [facility] - Occupational Stress [...] slept in a retirement (including now)? No 06/29/2022 Area Deprivation Index Answer Date Vern rded National Score (1-100), lower number is lower ri sk 70 09/03/2022 State Score (1-10), lower number is lower risk N ot on file 09/03/2022 Data from: https://www.neighborhoodatlas.medicine.[facility].edu/. Last address used for calculation Tari Tanner 09/03/2022 Comments Unknown Sex and [...] on filedocumented in this encounter Care Teams Application Security Consultant Relationship Specialty [place] [address] [place], [place] [id number] PCP - General Internal Medicine 01/11/22 Sonia Dickerson APRN.CNP [address] [place] [address] [employer] Internal Medicine 07/30/24 08/29/24 Fatimah Geiger, COTTON DISPATCHER.RANGE MANAGER [address] [place] [address] [facility] Internal Medicine 07/30/24 Ruth Richardson APRN.RANGE MANAGER [address] [place] [address] [facility] Internal Medicine 07/30/24 08/29/24 Berenice Rivas, COTTON DISPATCHER.RANGE MANAGER [address] [place] [address] [facility] Internal Medicine 07/30/24 08/29/24 Zarina Pope PA-C [address] [place] [address] [facility] Internal Medicine 07/30/24 08/29/24 documented as of this encounter
--- OUTSIDE RECORDS SUMMARY | 2025-04-11 13:04 | XMS_ITS | Encounter Summary ---
Author Organization [facility] Address [address] [place] [address] Care Team Providers Care Rural Service Engineer Name Role Phone Unallocated, Noms Provider Primary Care Provi chrissy Amalia Bruce OIL HEATER OPERATOR Unavailable [phone] Encounter Details Date Type Department Care Team (Late Contact Info) Description 10/29/2024 Abstract [facility] [address] [place] [address] Roscoe Diaz DO [address] [facility] [place] [address] Social History Tobacco Use Types Packs/Day Years [...] Department Care Team (Late Contact Info) Description 04/24/2025 11:30 AM EDT Routine [facility] [address] [place] [phone] Roscoe Diaz DO [address] [facility] [place] [address] documented as of this encounter Goals Goal Patient Goal Type Associated Problems Recent Progress Patient-Stated? Author Reminders Care Plan OB Reminders No Open Scheduling, Background documented as of this encounter Visit Diagnoses Not on filedocumented in this encounter Additional Health Concerns Active Problems Noted Date Diagnosed Date OB Reminders 10/19/2024 documented as of this encounter Care Teams Rural Service Engineer Relationship Specialty Start Date End Date Unallocated, Nomgilmar Provider, [address] [place], [place] [address] PCP - General Family Medicine 10/17/23 Amalia Bruce, TONIA [address] [place] [address] PCP - Capo Commercial 09/22/24 documented as of this encounter
--- OUTSIDE RECORDS SUMMARY | 2025-04-11 13:04 | XMS_ITS | Encounter Summary ---
Author Organization [facility] Address [address] [place] [address] Care Team Providers Care Agronomist Name Role Phone Unallocated, Noms Provider Primary Care Provi chrissy Amalia Bruce GAUNTLET PAIRER Unavailable [phone] Encounter Details Date Type Department Care Team (Late st Contact Info) Description 04/01/2025 Clinisync Result Encounter [facility] External Department Unsolicited oRsy Quiroz PA [address] [place] [address] Social History Tobacco Use Types Packs/Day Years [...] AM EDT Routine [facility] [address] [place] [phone] Roscoe Diaz, DO [address] [id number] documented as of this encounter Goals Goal [...] EDT Narrative 04/01/2025 3:31 PM EDT The [address] [address] Ultrasound Report Signed Patient: TRUDI ZAMARRIPA MR#: [id number] : 1990 Acct:[id number] Age/Sex: 34 / F ADM Date: 04/01/25 Loc: [facility] 250-[address]: Rosy Quiroz Ordering Physician: Rosy Quiroz Date of Service: 04/01/25 Procedure(s): US OB BPP w non-stress Accession Number(s): [id number] cc: Rosy Quiroz; Physician,Non-Staff M.D. The [address] [address] Patient Name: TRUDI ZAMARRIPA MRN: [id number] date: 1990 Sex: F Assigned Patient Location: US Current Patient Location: US Accession/Order Number: [id number] Exam Date: 04/01/2025 15:28 Report Date: 04/01/2025 15:29 At the request of: ROSY QUIROZ Procedure: US OB BPP w non-stress Biophysical profile. Reason for exam: History of gastric sleeve surgery COMPARISON: None TECHNIQUE: Transabdominal imaging of the gravid uterus was obtained. FINDINGS: The shoe lacer reports a BPP of 8 out of 8. HELLEN is normal at 10.8 cm. heart rate 125 bpm. US/US OB BPP w non-stress IMPRESSION: BPP 8 out of 8. Impression dictated by: Cy Jensen Jr., D.O. 04/01/2025 3:29 PM Dictation Location: [place] [address] Electronically authenticated by: [id number] Y Date: 04/01/2025 15:29 Dictated By: Cy Jensen M.D. Signed By: 04/01/25 1531 DD/ 1529 TD/TT: Cotton Jammer: Procedure Note Radiology, Radiologist, MD - 04/01/2025 [place] [address] Ultrasound Report Signed Patient: TRUDI ZAMARRIPA JMR#: [id number] : 1990Acct:[id number] Age/Sex: 34 / FADM Date: 04/01/25 Loc: [place] [address]: Rosy Quiroz Ordering Physician: Rosy Quiroz Date of Service: 04/01/25 Procedure(s): US OB BPP w non-stress Accession Number(s): [id number] cc: Rosy Quiroz; Physician,Non-Staff Shimon The [place] [address] Patient Name: TRUDI ZAMARRIPA MRN: [facility]:[id number] date: 1990 Sex: F Assigned Patient Location: Current Patient Location: US Accession/Order Number: [id number] Exam Date: 04/01/2025 15:28 Report Date: 04/01/2025 15:29 At the request of: ROSY QUIROZ Procedure: US OB BPP w non-stress Biophysical profile. Reason for exam: History of gastric sleeve surgery COMPARISON: None TECHNIQUE: Transabdominal imaging of the gravid uterus was obtained. FINDINGS: The shoe lacer reports a BPP of 8 out of 8. HELLEN is normal at10.8 cm. heart rate 125 bpm. US/US OB BPP w non-stress IMPRESSION: BPP 8 out of 8. Impression dictated by: Cy Jensen Jr., D.O. 04/01/2025 3:29 PM Dictation Location: [place] [address] Electronically authenticated by: [id number] Y Date: 5:29 Dictated By: Cy Jensen M.D. Signed By:04/01/25 1531 DD/ 1529 TD/TT: Cotton Jammer: Rosy [facility] Final Result documented in this encounter Visit Diagnoses Not on filedocumented in this encounter Additional Health Concerns Active Problems Noted Date Diagnosed Date OB Reminders 10/19/2024 documented as of this encounter Care Teams Agronomist Relationship Specialty Start Date End Date Unallocated, Noms Provider, [address] [place], [place] [phone] PCP - General Family Medicine 10/17/23 Amalia Bruce, TONIA [address] [place] [address] PCP - [place] Commercial 09/22/24 documented as of this encounter
--- OUTSIDE RECORDS SUMMARY | 2025-04-11 13:04 | XMS_ITS | Encounter Summary ---
Author Organization [facility] tem Address [id number] [address] [place] [address] Care Team Providers Care Blood Bank Laboratory Professional Name Role Phone Unavailable Primary Care Provider Unavailabl e Encounter Details Date Type Department Care Team (Late st Contact Info) Description 02/07/2025 Orders Only Maternal- Medicine at [facility] [address] [place] [phone] Ref Prov, [place] [address] Social History Tobacco Use Types Packs/Day Years [...] ORDERABLES Madelaine l Result Performing Organization Address [facility] Co de Phone Number MANUALLY TRANSCRIBED RESULTS * Unlisted Genetic Test (02/07/2025 10:32 AM EDT) us Not In System Ref Prov LAB BLOOD ORDERABLES Madelaine l Result Performing Organization Address City/[facility] Co de Phone Number MANUALLY TRANSCRIBED RESULTS documented in this encounter Visit Diagnoses Not on filedocumented in this encounter
--- OUTSIDE RECORDS SUMMARY | 2025-04-11 13:04 | XMS_ITS | Encounter Summary ---
Author Organization [facility] Address [address] [place] [address] Care Team Providers Care Psych Social Worker Name Role Phone Unallocated, Noms Provider Primary Care Provi chrissy Amalia Bruce DRIED YEAST SUPERVISOR Unavailable [phone] Encounter Details Date Type Department Care Team (Late st Contact Info) Description 04/05/2025 Telephone [facility] [address] [phone] Monika Mesa LPN [address] [place] [address] Social History Tobacco Use Types [...] AM EDT Routine [facility] [address] [place] [phone] Roscoe Diaz, [address] [facility] [place] [address] documented as of this encounter Goals Goal Patient Goal Type Associated Problems Recent Progress Patient-Stated? Author Reminders Care Plan OB Reminders No Open Scheduling, Background documented as of this encounter Results * US OB follow [...] II, MD, PHD at 09-Apr-2025 07:59:18 AM [facility] Procedure Note Brittany Ferreira MD - [...] signed by BRITTANY FERREIRA II, MD, PHD [id number] 07:59:18 AM [facility] us Roscoe Joeiván [facility] IM OB US PROCEDURES Final Resul t documented in this encounter Visit Diagnoses Diagnosis H/O gastric sleeve H/O gastric sleeve documented in this encounter Additional Health Concerns Active Problems Noted Date Diagnosed Date OB Reminders 10/19/2024 documented as of this encounter Care Teams Psych Social Worker Relationship Specialty Start Date End Date Unallocated, Noms Provider, [place] [address] PCP - General Family Medicine 10/17/23 Amalia Bruce NP [address] [place] [address] PCP - Em[place] Commercial 09/22/24 documented as of this encounter
--- OUTSIDE RECORDS SUMMARY | 2025-04-11 13:04 | XMS_ITS | Encounter Summary ---
Author Organization [facility] tem Address [id number] [place] [address] Care Team Providers Care Intelligence Operations Name Role Phone Unavailable Primary Care Provider Unavailabl e Encounter Details Date Type Department Care Team (Late st Contact Info) Description 04/09/2025 Telephone Maternal- Medicine at [facility] [address] [place] [phone] Devika Pope, JOEL [address] [place] [address] Social History Tobacco Use Types Packs/Day Years [...] * Telephone Encounter - JOEL Oakes - 04/09/2025 1:14 PM EDT Called regarding blood sugar logs from 04/01/2025-04/07/2025 but the call went straight to voicemail.She had 4 elevated post prandial blood sugars, no pattern, but she did note that they were most likely related to higher carbohydrate meals. Continue with 10 units of Lantus and sending blood sugars weekly. Reminded to schedule a follow-up visit with a [employer] provider for the second week in April. documented in this encounter Plan of Treatment Not on file documented as of this encounter Visit Diagnoses Not on filedocumented in this encounter
--- OUTSIDE RECORDS SUMMARY | 2025-04-11 13:04 | XMS_ITS | Encounter Summary ---
Author Organization [facility] Address [address] [place] [address] Care Team Providers Care Location Worker Name Role Phone Unallocated, Noms Provider Primary Care Provi chrissy Amalia Bruce RESEARCH TEST ENGINE OPERATOR Unavailable [phone] Encounter Details Date Type Department Care Team [...] AM EDT Routine [facility] [address] [place] [address] Roscoe Diaz DO [address] [place], [place] [id number] documented as of this encounter Goals Goal Patient Goal Type Associated Problems Recent Progress Patient-Stated? Author Reminders Care Plan OB Reminders No Open Scheduling, Background documented as of this encounter Visit Diagnoses Not on filedocumented in this encounter Additional Health Concerns Active Problems Noted Date Diagnosed Date OB Reminders 10/19/2024 documented as of this encounter Care Teams Location Worker Relationship Specialty Start Date End Date Unallocated, Noms Provider, [address] [place] [address] PCP - General Family Medicine 10/17/23 Amalia Bruce, TONIA [address] [place] [address] PCP - Capo Wild 09/22/24 documented as of this encounter
--- OUTSIDE RECORDS SUMMARY | 2025-04-11 13:05 | XMS_ITS | Encounter Summary ---
Author Organization [facility] tem Address [id number] [address] [place] [address] Care Team Providers Care Lacing Operator Name Role Phone Unavailable Primary Care Provider Unavailabl e Encounter Details Date Type Department Care Team (Late st Contact Info) Description 04/01/2025 Telephone Maternal- Medicine at [facility] [address] [facility] [place] [address] Blanquita Toney, KARISSA Social History Tobacco Use [...]
--- OUTSIDE RECORDS SUMMARY | 2025-04-11 13:05 | XMS_ITS | Clinical Summary ---
Author Organization [facility] Address [address] [place] [address] Care Team Providers Care Local Operator Name Role Phone Unallocated, Noms Provider Primary Care Provi chrissy Amalia Bruce NEPHROLOGY SOCIAL WORKER Unavailable [phone] Allergies No known active allergies Medications omeprazole OTC (PriLOSEC OTC) 20 MG EC tablet Take 20 mg by mouth in the morning. Take before meals. Do not crush, chew, or split.. Active Vit-Fe Fumarate-FA ( 19) 29-1 MG chewable tabletIndication s:, unspecified gestational age ([facility]) Chew 1 each Daily 30 tablet 11 5 Active Alcohol Swabs (Alcohol Prep Pad) 70 % padsIndications: Gestational diabetes mellitus (GDM), antepartum, gestational diabetes method of control unspecified ([facility]),Elevat ed glucose tolerance test Apply 1 Pad topically Daily Use four times daily to check FSBS. 150 each 3 5 Active Blood Glucose Monitoring Suppl (D-Care Glucometer) w/Device kitIndications:G estational diabetes mellitus (GDM), antepartum, gestational diabetes method of control unspecified ([facility]),Elevat ed glucose tolerance test 1 kit [...] Encounters Date Type Department Care Team Description 04/10/2025 3:00 PM [place] [address] Roscoe Diaz, 34 weeks gestation of ([facility]); Third trimester ([facility]); H/O gastric sleeve; Insulin controlled gestational diabetes mellitus (GDM) during , antepartum ([facility]) 04/10/2025 Bamboo flowsheet [facility] CA[facility] [address] [place] [address] Roscoe Diaz DO 04/08/2025 10:00 AM EDT Ancillary Procedure [facility] [address] [place] [address] H/O gastric sleeve 04/08/2025 Clinisync Result Encounter NOMS External Department Unsolicited Rosy Quiroz PA 04/06/2025 Travel 04/05/2025 Telephone [facility] [address] [place] [address] Monika Msea LPN 04/01/2025 Clinisync Result Encounter NOMS External Department Unsolicited Rosy Quiroz PA 03/28/2025 Telephone [facility] [address] [place] [address] Jes Garza MA 03/27/2025 2:00 PM EDT Routine [facility] [address] [place] [address] Roscoe Diaz DO Third trimester ([facility]); H/O gastric sleeve; Gestational diabetes mellitus (GDM), antepartum, gestational diabetes method of control unspecified ([facility]); 32 weeks gestation of ([facility]) 03/27/2025 Bamboo flowsheet [facility] SILVAG[address] [address] Roscoe Diaz, 03/27/2025 Travel 03/13/2025 3:50 PM EDT Routine [facility] SILVAGYN Marisela [facility] [place] [address] Rosy Quiroz PA 30 weeks gestation of ([facility]); Third trimester ([facility]); H/O gastric sleeve; Gestational diabetes mellitus (GDM), antepartum, gestational diabetes method of control unspecified ([facility]) 03/13/2025 Bamboo flowsheet [facility] [address] [address] Rosy Quiroz PA 03/10/2025 Travel 02/27/2025 1:40 PM EDT Routine [facility] Antonio [facility] [place] [address] Roscoe Diaz, 28 weeks gestation of ([facility]); Third trimester ([facility]); H/O gastric sleeve; Gestational diabetes mellitus (GDM), antepartum, gestational diabetes method of control unspecified ([facility]) 02/27/2025 1:00 PM EDT Ancillary Procedure NOM[facility]ace [place] [address] H/O gastric sleeve 02/26/2025 Travel 02/11/2025 11:30 AM EDT Routine [facility] SILVAGYLee Antonio [facility] [place] [address] Rosy Quiroz PA Second trimester ([facility]); 26 weeks gestation of ([facility]); H/O gastric sleeve 02/11/2025 Travel 02/06/2025 Abstract NOMHorace [place] [address] Roscoe Diaz, 02/04/2025 Telephone [facility] SIL[place] [address] Monika Mesa LPN 02/04/2025 Results [place] [address] Bonita Monika, IT DESKTOP SUPPORT SPECIALIST ALL CBC WITH AUTO DIFF, GLUCOSE 1 HOUR 02/01/2025 [place] [address] Ana Costello MA 02/01/2025 Clinisync Result Encounter NOMS External Department Unsolicited Roscoe Diaz, 01/30/2025 1:00 PM EDT [place] [address] Encounter for follow-up ultrasound of anatomy ([facility]) 01/27/2025 Travel 01/10/2025 10:10 AM [place] [address] Roscoe Diaz DO 21 weeks gestation of ([facility]); Second trimester ([facility]); Diabetes mellitus screening 01/10/2025 [place] [address] Roscoe Diaz DO 01/09/2025 Abstract [facility] Antonio [facility] [place] [address] Roscoe Diaz DO from Last 3 Months Family History [...] Pressure 120/70 04/10/2025 3:14 PM EDT Pulse 88 08/02/2024 3:58 PM EST Temperature 36 C (96.8 F) 08/02/2024 3:58 PM EST Respiratory Rate 12 07/25/2024 2:19 PM EST Oxygen Saturation 98% 08/02/2024 3:58 PM EST Inhaled Oxygen Concentration - - Weight 95.3 kg (210 lb 1.9 oz) 04/10/2025 3:14 P M EDT Height 160 cm (5' 3 ) 07/25/2024 2:19 PM EST Body Mass Index 37.22 07/25/2024 2:19 PM EST Plan of Treatment Upcoming Encounters Date Type Department Care Team (Late st Contact Info) Description 04/24/2025 11:30 AM EDT Routine [facility] [address] [facility] [place] [address] Roscoe Diaz DO [address] [facility] [address] [place] [place], [place] [address] Health Maintenance Due Date Last Done Comments HPV/Cotest 2022 Influenza Vaccine (#1) 2025 Cervical Cancer Screening 12/11/2027 Pap Smear 12/11/2027 12/10/2024 Goals Goal Patient Goal Type Associated Problems Recent Progress Patient-Stated? Author Reminders Care Plan OB Reminders No Open Scheduling, Background Procedures Procedure Name Priority Date/Time Associated Diagnosis Comments POCT URINALYSIS DIPSTICK Routine 04/10/2025 3:21 PM EDT 34 weeks gestation of ([facility]) Third trimester ([facility]) US OB BPP W NON-STRESS 04/08/2025 8:37 PM EDT US OB FOLLOW UP TRANSABDOMINAL APPROACH Routine 04/08/2025 10:27 AM EDT H/O gastric sleeve US OB BPP W NON-STRESS 04/01/2025 3:29 PM EDT POCT URINALYSIS DIPSTICK Routine 03/27/2025 2:49 PM EDT Third trimester ([facility]) H/O gastric sleeve Gestational diabetes mellitus (GDM), antepartum, gestational diabetes method of control unspecified ([facility]) 32 weeks gestation of ([facility]) POCT URINALYSIS DIPSTICK Routine 03/13/2025 3:46 PM EDT 30 weeks gestation of ([facility]) Third trimester ([facility]) POCT URINALYSIS DIPSTICK Routine 02/27/2025 2:04 PM EDT 28 weeks gestation of ([facility]) Third trimester ([facility]) US OB FOLLOW UP TRANSABDOMINAL APPROACH Routine 02/27/2025 1:40 PM EDT H/O gastric sleeve POCT URINALYSIS DIPSTICK Routine 02/11/2025 11:50 AM EDT Second trimester ([facility]) GLUCOSE 1 HOUR Routine 02/01/2025 9:28 AM EDT ALL CBC WITH AUTO DIFF Routine 9:28 AM EDT US OB LIMITED 1+ FETUSES Routine 01/30/2025 1:20 PM EDT Encounter for follow-up ultrasound of anatomy ([facility]) POCT URINALYSIS DIPSTICK Routine 01/10/2025 10:40 AM EDT 21 weeks gestation of ([facility]) Second trimester ([facility]) PAP SMEAR Routine 12/10/2024 12:00 AM EDT from Last 3 Months or Most Recently Relevant to Health Maintenance Results * (ABNORMAL) POCT urinalysis dipstick manually resulted (04/10/2025 3:21 PM EDT) Only the most recent of6 resultswithin the time period is included. Color, [...] - Positive Urine 04/10/2025 3:21 PM EDT [facility] Joe DO POINT OF CARE TEST ENTER/EDIT OR DERABLES Final Result * US OB BPP W NON-STRESS (04/08/2025 8:37 PM EDT) Only the most recent of2 resultswithin the time period is included. Anatomical Region Laterality Modality Other 04/08/2025 8:37 PM EDT Narrative 04/08/2025 8:39 [place] [address] Ultrasound Report Signed Patient: TRUDI ZAMARRIPA MR#: [id number] : 1990 Acct:[id number] Age/Sex: 34 / F ADM Date: 04/08/25 Loc: US Attending Dr: Rosy Quiroz Ordering Physician: Rosy Quiroz Date of Service: 04/08/25 Procedure(s): US OB BPP w non-stress Accession Number(s): [id number] cc: Rosy Quiroz; Physician,Non-Staff Shimon The [address] [address] Patient Name: TRUDI ZAMARRIPA MRN: [id number] date: 1990 Sex: F Assigned Patient Location: [facility] Current Patient Location: Accession/Order Number: [id number] Exam Date: 04/08/2025 20:36 Report Date: 04/08/2025 20:37 At the request of: ROSY QUIROZ Procedure: US OB BPP w non-stress Ultrasound biophysical profile HISTORY: History of gastric sleeve Adequate breathing movement, gross body movement, tone and amniotic fluid volume for total score of 8 out of 8. The amniotic fluid index is 9.3cm within normal limits. The heart rate 136 bpm. US/US OB BPP w non-stress IMPRESSION: Adequate ultrasound biophysical profile Impression dictated by: Suraj Briscoe M.D. 04/08/2025 8:37 PM Dictation Location: [place] [address] Electronically authenticated by: [id number] Y Date: 04/08/2025 20:37 Dictated By: Suraj Briscoe D.O. Signed By: 04/08/252038 DD/ 36 TD/TT: Cone Operator: Procedure Note Radiology, Radiologist, MD - 04/08/2025 The [place] [id number] Ultrasound Report Signed Patient: TRUDI ZAMARRIPA JMR#: [id number] : 1990Acct:[id number] Age/Sex: 34 / FADM Date: 04/08/25 Loc: US Attending Dr: Rosy Quiroz Ordering Physician: Rosy Quiroz Date of Service: 04/08/25 Procedure(s): US OB BPP w non-stress Accession Number(s): [id number] cc: Rosy Quiroz; Physician,Non-Staff Shimon The [address] [address] Patient Name: TRUDI ZAMARRIPA MRN: [id number] date: 1990 Sex: F Assigned Patient Location: [facility] Current Patient Location: Accession/Order Number: [id number] Exam Date: 04/08/2025 20:36 Report Date: 04/08/2025 20:37 At the request of: ROSY QUIROZ Procedure: US OB BPP w non-stress Ultrasound biophysical profile HISTORY: History of gastric sleeve Adequate breathing movement, gross body movement, tone and amniotic fluid volume for total score of 8 out of 8. The amniotic fluidindex is 9.3cm within normal limits. The heart rate 136 bpm. US/US OB BPP w non-stress IMPRESSION: Adequate ultrasound biophysical profile Impression dictated by: Suraj Briscoe M.D. 04/08/2025 8:37 PM Dictation Location: [place] [address] Electronically authenticated by: [id number] Y Date: 0:37 Dictated By: Suraj Briscoe D.O. Signed By:04/08/252038 DD/ 36 TD/TT: Cone Operator: us Rosy KRUGER [facility] Final Result * US OB follow up transabdominal approach (04/08/2025 10:27 AM EDT) Only the most recent of2 resultswithin the time period is included. Anatomical Region Laterality Modality Body Ultrasound 04/09/2025 [...] II, MD, PHD at 09-Apr-2025 07:59:18 AM [facility] Procedure Note Brittany Ferreira MD - [...] signed by BRITTANY FERREIRA II, MD, PHD [id number] 07:59:18 AM [facility] us Roscoe Joe DO IMG OB US PROCEDURES Final Resul t * (ABNORMAL) GLUCOSE 1 HOUR (02/01/2025 9:28 AM EDT) GLUCOSE 1 HOUR 198(H) <130 mg/dL TBH 02/01/2025 9:28 AM EDT 02/01/2025 9:30 AM EDT Narrative [facility] - 02/01/2025 11:36 AM EDT us Roscoe Joe DO LAB BLOOD ORDERABLES Final Resul t [facility] TB * (ABNORMAL) ALL CBC WITH AUTO DIFF [...] us Roscoe Joe DO [facility] Final Result [facility] * US OB limited 1+ fetuses [...] II, MD, PHD at 01-Feb-2025 10:22:21 AM [facility] Procedure Note Brittany Ferreira MD - [...] signed by BRITTANY FERREIRA II, MD, PHD [id number] 10:22:21 AM [facility] us Roscoe Joe DO IMG OB US PROCEDURES Final Resul t * Pap Smear (12/10/2024 12:00 AM EDT) Swab Cervical swab / Unknown us Joe Nurse Noms Bcp Ob LAB CYTOLOGY ORDERABLES Final Result EXTERNAL LAB from Last 3 Months or Most Recently Relevant to Health Maintenance Additional Health Concerns Active Problems Noted Date Diagnosed Date OB Reminders 10/19/2024 Insurance [facility] Care Teams Local Operator Relationship Specialty Start Date End Date Unallocated, Noms MD [address] [place] [address] PCP - General Family Medicine 10/17/23 Amalia Bruce NP [address] [place], [place] [phone] PCP - [place] [employer] 09/22/24
--- OUTSIDE RECORDS SUMMARY | 2025-04-11 13:05 | XMS_ITS | Encounter Summary ---
Author Organization [facility] Address [address] [place] [address] Care Team Providers Care Sueding Machine Tender Name Role Phone Unallocated, Noms Provider Primary Care Provi chrissy Amalia Bruce STATE AUDITOR Unavailable [phone] Encounter Details Date Type Department Care Team (Late st Contact Info) Description 02/04/2025 Results Follow-Up [facility] [place] OBGY[facility] [address] [facility] [address] [place] [address] Monika Mesa LPN [address] [place] [id number] ALL CBC WITH AUTO DIFF, GLUCOSE 1 [...] Description 04/24/2025 11:30 AM EDT Routine [facility] [place] [facility] [address] [place] [address] Roscoe Diaz DO [address] [facility] [place] [address] documented as of this encounter Goals Goal Patient Goal Type Associated Problems Recent Progress Patient-Stated? Author Reminders Care Plan OB Reminders No Open Scheduling, Background documented as of this encounter Visit Diagnoses Not on filedocumented in this encounter Additional Health Concerns Active Problems Noted Date Diagnosed Date OB Reminders 10/19/2024 documented as of this encounter Care Teams Sueding Machine Tender Relationship Specialty Start Date End Date Unallocated, Noms Herlinda, [address] [place] [address] PCP - General Family Medicine 10/17/23 Amalia Bruce, TONIA [address] [place] [address] PCP - Capo Wild 09/22/24 documented as of this encounter
--- OUTSIDE RECORDS SUMMARY | 2025-04-11 13:05 | XMS_ITS | Encounter Summary ---
Author Organization [facility] Address [address] [place] [address] Care Team Providers Care Escrow Clerk Name Role Phone Unallocated, Noms Provider Primary Care Provi chrissy Amalia Bruce YARN SALVAGER Unavailable [phone] Encounter Details Date Type Department Care Team (Late st Contact Info) Description 04/08/2025 Clinisync Result Encounter NOMS External Department Unsolicited Rosy Quiroz PA [address] [place] [address] Social History Tobacco Use Types Packs/Day Years [...] AM EDT Routine [facility] [address] [employer] [place] [address] Roscoe Diaz, DO [address] [facility] [address] [address] documented as of this encounter Goals Goal Patient Goal Type Associated Problems Recent Progress Patient-Stated? Author Reminders Care Plan OB Reminders No Open Scheduling, Background documented as of this encounter Procedures Procedure Name Priority Date/Time Associated Diagnosis Comments US OB BPP W NON-STRESS 04/08/2025 8:37 PM EDT documented in this encounter Results * US OB BPP W NON-STRESS (04/08/2025 8:37 PM EDT) Anatomical Region Laterality Modality Other 04/08/2025 8:37 PM EDT Narrative 04/08/2025 8:39 PM EDT The [address] [address] Ultrasound Report Signed Patient: TRUDI ZAMARRIPA MR#: [id number] : 1990 Acct:[id number] Age/Sex: 34 / F ADM Date: 04/08/25 Loc: US Attending Dr: Rosy Quiroz Ordering Physician: Rosy Quiroz Date of Service: 04/08/25 Procedure(s): US OB BPP w non-stress Accession Number(s): [id number] cc: Rosy Quiroz; Physician,Non-Staff M.D. The [address] [address] Patient Name: TRUDI ZAMARRIPA MRN: [id number] date: 1990 Sex: F Assigned Patient Location: [facility] Current Patient Location: Accession/Order Number: [id number] Exam Date: 04/08/2025 20:36 Report Date: 04/08/2025 [...] Briscoe M.D. 04/08/2025 8:37 PM [facility] Electron[facility] authenticated by: [id number] Y Date: 04/08/2025 20:37 Dictated By: Suraj Briscoe D.O. Signed By: 04/08/252038 DD/ 36 TD/TT: Engineering Model Maker: Procedure Note Radiology, Radiologist, MD - 04/08/2025 [place] [address] Ultrasound Report Signed Patient: TRUDI ZAMARRIPA JMR#: [id number] : 1990Acct:[id number] Age/Sex: 34 / FADM Date: 04/08/25 Loc: US Attending Dr: Rosy Quiroz Ordering Physician: Rosy Quiroz Date of Service: 04/08/25 Procedure(s): US OB BPP w non-stress Accession Number(s): [id number] cc: Rosy Quiroz; Physician,Non-Staff Shimon The [place] [id number] Patient Name: TRUDI ZAMARRIPA MRN: [id number] date: 1990 Sex: F Assigned Patient Location: [facility] Current Patient Location: Accession/Order Number: [id number] Exam Date: 04/08/2025 20:36 Report Date: 04/08/2025 [...] Briscoe M.D. 04/08/2025 8:37 PM [facility]ictation [facility] Electronically authenticated by: [id number] Y Date: 0:37 Dictated By: Suraj Briscoe D.O. Signed By:04/08/252038 DD/ 36 TD/TT: Engineering Model Maker: Rosy [facility] Final Result documented in this encounter Visit Diagnoses Not on filedocumented in this encounter Additional Health Concerns Active Problems Noted Date Diagnosed Date OB Reminders 10/19/2024 documented as of this encounter Care Teams Escrow Clerk Relationship Specialty Start Date End Date Unallocated, Noms Provider, [address] [place], [place] [phone] PCP - General Family Medicine 10/17/23 Amalia Bruce NP [address] [place] [address] PCP - Capo Wild 09/22/24 documented as of this encounter
--- OUTSIDE RECORDS SUMMARY | 2025-04-11 13:05 | XMS_ITS | Encounter Summary ---
[facility] [id number] [address] [place] [address] Care Team Providers Care Gamer Name Role Phone Unavailable Primary Care Provider [...]
--- OUTSIDE RECORDS SUMMARY | 2025-04-11 13:05 | XMS_ITS | Encounter Summary ---
Author Organization [facility] Address [address] [place] [address] Care Team Providers Care Environmental Services Coordinator Name Role Phone Unallocated, Noms Provider Primary Care Provi chrissy Amalia Bruce CULLET WASHER Unavailable Encounter Details Date Type Department Care Team (Late st Contact Info) Description 04/10/2025 Bamboo flowsheet [facility] CAAL [address] [address] Roscoe Diaz DO [address] [facility] [address] [place], [facility] Social History Tobacco Use Types Packs/Day Years [...] Description 04/24/2025 11:30 AM EDT Routine [facility]IARA SILVAGYN [address] [place] [address] Roscoe Diaz DO [address] [place] [address] documented as of this encounter Goals Goal Patient Goal Type Associated Problems Recent Progress Patient-Stated? Author Reminders Care Plan OB Reminders No Open Scheduling, Background documented as of this encounter Visit Diagnoses Not on filedocumented in this encounter Additional Health Concerns Active Problems Noted Date Diagnosed Date OB Reminders 10/19/2024 documented as of this encounter Care Teams Environmental Services Coordinator Relationship Specialty Start Date End Date Unallocated, Noms Provider, MD [address] [place], [place] [phone] PCP - General Family Medicine 10/17/23 Amalia Bruce, TONIA [address] [place] [address] PCP - Capo Wild 09/22/24 documented as of this encounter
--- OUTSIDE RECORDS SUMMARY | 2025-04-11 13:05 | XMS_ITS | Clinical Summary ---
Author Organization [facility] tem Address [id number] [address] [place] [address] Care Team Providers Care Principal Quality Engineer Name Role Phone Unavailable Primary Care Provider Unavailabl e Allergies No known active allergies Medications 25-IRON WWY-[id number] ORAL Take 1 tablet by mouth in [...] Encounters Date Type Department Care Team Description 04/09/2025 Telephone Maternal- Medicine at [facility] [address] [place] [phone] Devika Pope LD 04/01/2025 10:00 AM EDT Telemedicine Maternal- Medicine at [facility] [address] [facility] [address] Daisha Morel PA-C Gestational diabetes requiring insulin (Primary Dx) 04/01/2025 Telephone Maternal- Medicine at [facility] [address] [facility] [address] Blanquita Toney, KARISSA 04/01/2025 Travel 04/01/2025 Telephone Maternal- Medicine at [facility] [address] [facility] [place] [address] Blanquita Toney, KARISSA 03/26/2025 Telephone Maternal- Medicine at [facility] [address] [facility] [place] [address] Devika Pope, JOEL 03/19/2025 Telephone Maternal- Medicine at [facility] [address] [facility] [address] Fatimah Ball, JOEL 03/12/2025 1:30 PM EDT Office Visit Maternal- Medicine at [facility] [address] [facility] [address] Daisha Morel PA-C Gestational diabetes mellitus (GDM) in second trimester, gestational diabetes method of control unspecified (Primary Dx); Gestational diabetes requiring insulin 03/12/2025 Travel 03/05/2025 Telephone Maternal- Medicine at [facility] [address] [facility] [address] Devika Pope, JOEL 02/26/2025 Telephone Maternal- Medicine at [facility] [address] [place] [address] Devika Pope, JOEL 02/14/2025 1:30 PM EDT Support Visit Maternal- Medicine at [facility] [address] [facility] [address] Hien Giles RN Niko, Devika, LD Gestational diabetes mellitus (GDM) in second trimester, gestational diabetes method of control unspecified (Primary Dx) 02/13/2025 Travel 02/07/2025 Orders Only Maternal- Medicine at [facility] [address] [place] [address] Ref Prov, Not In System 02/07/2025 Abstract Maternal- Medicine at [facility] [address] [place] [phone] External, Scanning Provider from Last 3 Months [...] MD LAB BLOOD ORDERABLES Final Re sult MANUALLY TRANSCRIBED RESULTS * Ultrasound - Office [...] System Ref Prov LAB BLOOD ORDERABLES Madelaine paz Result MANUALLY TRANSCRIBED RESULTS * Glucose 1h post 50g load (02/01/2025) Glucose, 1 hr PP 50GM dose 198 MANUALLY TRANSCRIBED RESULTS Blood Venous blood / Unknown us Not In System Ref Prov LAB BLOOD ORDERABLES Madelaine l Result Performing Organization Address City/[facility] Co de Phone Number MANUALLY TRANSCRIBED RESULTS * Hemoglobin and hematocrit, blood (02/01/2025) Hemoglobin 11.5 MANUALLY TRANSCRIBED RESULTS Hematocrit 33.9 MANUALLY TRANSCRIBED RESULTS Blood Venous blood / Unknown us Not In System Ref Prov LAB BLOOD ORDERABLES Madelaine l Result Performing Organization Address City/[facility] Co de Phone Number MANUALLY TRANSCRIBED RESULTS from Last [address] [place] [address]
--- OUTSIDE RECORDS SUMMARY | 2025-04-11 13:05 | XMS_ITS | Encounter Summary ---
Author Organization [facility] Address [address] [place] [address] Care Team Providers Care Material Requirements Planning Manager Name Role Phone Unallocated, Noms Provider Primary Care Provi chrissy Amalia Bruce CUSTOMER CARE TEAM COACH Unavailable [phone] Encounter Details Date Type Department Care Team (Late Contact Info) Description 01/09/2025 Abstract [facility] [address] [facility] [place] [address] Roscoe Diaz DO [address] [facility] [place] [address] Social History Tobacco Use Types Packs/Day Years [...] 11:30 AM EDT Routine [facility]IARA CAAL [address] [place] [phone] Roscoe Diaz DO [address] [facility] [place] [address] documented as of this encounter Goals Goal Patient Goal Type Associated Problems Recent Progress Patient-Stated? Author Reminders Care Plan OB Reminders No Open Scheduling, Background documented as of this encounter Visit Diagnoses Not on filedocumented in this encounter Additional Health Concerns Active Problems Noted Date Diagnosed Date OB Reminders 10/19/2024 documented as of this encounter Care Teams Material Requirements Planning Manager Relationship Specialty Start Date End Date Unallocated, Nomgilmar Provider, [address] [place], [place] [id number] PCP - General Family Medicine 10/17/23 Amalia Bruce, TONIA [address] [place] [address] PCP - Capo Commercial 09/22/24 documented as of this encounter
--- OUTSIDE RECORDS SUMMARY | 2025-04-11 13:05 | XMS_ITS | Encounter Summary ---
Author Organization [facility] Address [address] [place] [address] Care Team Providers Care Admin Asst Name Role Phone Unallocated, Noms Provider Primary Care Provi chrissy Amalia Bruce FIRE PREVENTION CHIEF Unavailable [phone] Reason for Visit * Reason Onset Date Comments Med Refill 10/23/2024 Encounter Details Date Type Department Care Team (Late Contact Info) Description 10/23/2024 Refill [facility] [address] [facility] [address] [place] [address] Unallocated, Noms Provider, [address] [place] [address] Social History Tobacco Use Types Packs/Day Years [...] EDT Routine [facility] [address] [facility] [phone] Roscoe Diaz DO [address] [facility] [place] [address] documented as of this encounter Goals Goal Patient Goal Type Associated Problems Recent Progress Patient-Stated? Author Reminders Care Plan OB Reminders No Open Scheduling, Background documented as of this encounter Visit Diagnoses Not on filedocumented in this encounter Additional Health Concerns Active Problems Noted Date Diagnosed Date OB Reminders 10/19/2024 documented as of this encounter Care Teams Admin Asst Relationship Specialty Start Date End Date Unallocated, Noms Provider, [address] [place] [address] PCP - General Family Medicine 10/17/23 Amalia Bruce, TONIA [address] [place] [address] PCP - Capo Commercial 09/22/24 documented as of this encounter
--- OUTSIDE RECORDS SUMMARY | 2025-04-11 13:05 | XMS_ITS | Encounter Summary ---
Author Organization [facility] tem Address [id number] [address] [place] [address] Care Team Providers Care Space And Missile Operations Name Role Phone Unavailable Primary Care Provider Unavailabl e Encounter Details Date Type Department Care Team (Late st Contact Info) Description 04/01/2025 Telephone Maternal- Medicine at [facility] [address] [facility] [place] [place] [address] Blanquita Toney, KARISSA Social History Tobacco Use [...]
--- OUTSIDE RECORDS SUMMARY | 2025-04-11 13:05 | XMS_ITS | Clinical Summary ---
Author Organization [facility] Address [address] [place] [address] Care Team Providers Care Instructional Facilitator Name Role Phone Dasha Lujan MD Primary Care Provider [phone] Fatimah Geiger APRN.RELIGIOUS EDUCATOR Unavailable [phone] Allergies No known active allergies Medications Omeprazole Magnesium (ACID METAL SPRAYER MACHINED PARTS, OMEPRAZOLE,) 20 mg cpDR 04/16/2022 Active Active [...] 0.6 oz p ure alcohol) occ. drink [employer] Utilities Answer Date Recorded In the past 12 months has [employer], gas, oil, or water [employer]) threatened to shut off services in your [...] often do you attend chur ch or shinto services? Never 07/19/2023 Do you belong to any clubs o r organizations such as taoist groups, unions, fraternal or athletic groups, or [...] Answer Date Recorded PHQ-2 score 0 06/29/2024 [place] of Occupat ional Health - Occupational Stress [...] place to sleep or slept in a usp (including now)? No 07/19/2023 Area Deprivation Index Answer Date Vern rded National Score (1-100), lower number is lower ri sk 90 07/19/2023 State Score (1-10), lower number is lower risk 8 07/19/2023 Data from: https://www.neighborhoodatlas.medicine.[facility].edu/. Last address used for calculation [...] Hepatitis C Screening Discontinued Insurance Care Teams Instructional Facilitator Relationship Specialty [place] [address] [place], [place] [id number] PCP - General Internal Medicine 01/11/22 Fatimah Geiger APRN.RELIGIOUS EDUCATOR [address] [place], [place] [id number] Batch And Furnace Operator Internal Medicine 07/30/24
--- OUTSIDE RECORDS SUMMARY | 2025-04-11 13:05 | XMS_ITS | Encounter Summary ---
Author Organization [facility] Address [address] [place] [address] Care Team Providers Care Repair Weaver Name Role Phone Dasha Lujan MD Primary Care Provider Sonia Dickerson DIRECTOR GOVERNMENT.PRODUCTION ARTIST Unavailable Fatimah Geiger DIRECTOR GOVERNMENT.PRODUCTION ARTIST Unavailable Ruth Richardson DIRECTOR GOVERNMENT.PRODUCTION ARTIST Unavailable Berenice Rivas APRN.PRODUCTION ARTIST Unavailable Zarina Pope PA-C Unavailable Source Comments In the event this information is protected by the Federal Confidentiality of Alcohol and Drug AbusePatient Records regulations: The Federal rules restrict any use of the information to criminally investigate or prosecute any alcohol or drug abuse patient.[facility] Encounter Details Date Type Department Care Team (Late st Contact Info) Description 06/12/2024 Patient Msg Internal Medicine [address] [place] [address] Berenice Rivas APRN.PRODUCTION ARTIST [address] [place] [address] Appointment Request Social History Tobacco Use Types Packs/Day Years Used Date Smoking Tobacco: Never Smokeless Tobacco: Never Alcohol Use Standard Drinks/Week Comments Yes 1.3 (1 standard drink = 0.6 oz p ure alcohol) occ. drink [facility] Utilities Answer Date Recorded In the past 12 months has th e electric, gas, oil, or water [employer] threatened to shut off services in your [...] often do you attend chur ch or hinduism services? Never 07/19/2023 Do you belong to any clubs o r organizations such as samaritan groups, unions, fraternal or athletic groups, or [...] Recorded PHQ-2 score 0 07/22/2023 [facility] [place] of Occupat ional Health - Occupational Stress [...] is lower risk 8 07/19/2023 Data from: https://www.neighborhoodatlas.medicine.[facility].edu/. Last address used for calculation [address] [...] on filedocumented in this encounter Care Teams Repair Weaver Relationship Specialty [place] [address] [place] [address] PCP - General Internal Medicine 01/11/22 Sonia Dickerson, DIRECTOR GOVERNMENT.PRODUCTION ARTIST [address] [place] [address] Radiological Metallurgist Internal Medicine 07/30/24 08/29/24 Fatimah Geiger, DIRECTOR GOVERNMENT.PRODUCTION ARTIST [address] [place] [address] Radiological Metallurgist Internal Medicine 07/30/24 Ruth Richardson, DIRECTOR GOVERNMENT.PRODUCTION ARTIST [address] [place] [address] [facility] Internal Medicine 07/30/24 08/29/24 Berenice Rivas, DIRECTOR GOVERNMENT.PRODUCTION ARTIST [address] [place] [address] [facility] Internal Medicine 07/30/24 08/29/24 Zarina Pope PA-C [address] [place] [address] Radiological Metallurgist Internal Medicine 07/30/24 08/29/24 documented as of this encounter
--- OUTSIDE RECORDS SUMMARY | 2025-04-11 13:05 | XMS_ITS | Encounter Summary ---
Author Organization [facility] Address [address] [place] [address] Care Team Providers Care Jacquard Loom Weaver Name Role Phone Unallocated, Noms Provider Primary Care Provi chrissy Amalia Bruce MACHINE MAINTENANCE MECHANIC Unavailable [phone] Encounter Details Date Type Department Care Team (Late st Contact Info) Description 03/28/2025 Telephone [facility] [address] [place] [address] [place] [address] Jes Garza MA Social History Tobacco Use [...] Garza MA - 03/28/2025 10:29 AM EDT [facility] requesting order for NST/BPP. Order sent to Central scheduling documented in this encounter Plan of Treatment Upcoming Encounters Date Type Department Care Team (Late st Contact Info) Description 04/24/2025 11:30 AM EDT Routine [facility] [address] [facility] [place] [address] Roscoe Diaz DO [address] [place] [address] Scheduled Orders Name Type Priority Associated Diagnoses [...] documented as of this encounter Care Teams Jacquard Loom Weaver Relationship Specialty Start Date End Date Unallocated, Noms Provider, [address] [place] [address] PCP - General Family Medicine 10/17/23 Amalia Bruce, TONIA [address] [place] [address] PCP - Capo Wild 09/22/24 documented as of this encounter
--- OUTSIDE RECORDS SUMMARY | 2025-04-11 13:05 | XMS_ITS | Encounter Summary ---
Author Organization [facility] Address [address] [place] [address] Care Team Providers Care Ore Bridge Operator Name Role Phone Unallocated, Noms Provider Primary Care Provi chrissy Amalia Bruce REHABILITATION CASEWORKER Unavailable [phone] Encounter Details Date Type Department Care Team (Late st Contact Info) Description 12/26/2024 Orders Only [facility]ARA CAAL [address] [address] Iman Saldana LPN [address] [place] [id number] Social History Tobacco Use Types Packs/Day Years [...] Description 04/24/2025 11:30 AM EDT Routine [facility] [address] [facility] [place] [phone] Roscoe Diaz DO [address] [facility] [place] [address] documented as of this encounter Goals Goal [...] documented as of this encounter Care Teams Ore Bridge Operator Relationship Specialty Start Date End Date Unallocated, Noms Provider, [address] [place] [address] PCP - General Family Medicine 10/17/23 Amalia Bruce, TONIA [address] [place] [address] PCP - Capo Wild 09/22/24 documented as of this encounter
--- OUTSIDE RECORDS SUMMARY | 2025-04-11 13:05 | XMS_ITS | Encounter Summary ---
Author Organization [facility] Address [address] [place] [address] Care Team Providers Care Food Court Team Member Name Role Phone Dasha Lujan MD Primary Care Provider Sonia Dickerson SENIOR FACILITIES MANAGER.TRANSLATIONAL SPECIALIST Unavailable Fatimah Geiger SENIOR FACILITIES MANAGER.TRANSLATIONAL SPECIALIST Unavailable Ruth Richardson SENIOR FACILITIES MANAGER.TRANSLATIONAL SPECIALIST Unavailable Berenice Rivas APRN.TRANSLATIONAL SPECIALIST Unavailable Zarina Pope PA-C Unavailable Source Comments In the event this information is protected by the Federal Confidentiality of Alcohol and Drug AbusePatient Records regulations: The Federal rules restrict any use of the information to criminally investigate or prosecute any alcohol or drug abuse patient.[facility] Encounter Details Date Type Department Care Team (Late st Contact Info) Description 06/18/2024 Patient Msg Internal Medicine [address] [place] [address] Berenice Rivas APRN.TRANSLATIONAL SPECIALIST [address] [place] [address] Appointment Request Social History Tobacco Use Types Packs/Day Years Used Date Smoking Tobacco: Never Smokeless Tobacco: Never Alcohol Use Standard Drinks/Week Comments Yes 1.3 (1 standard drink = 0.6 oz p ure alcohol) occ. drink [facility] Utilities Answer Date Recorded In the past 12 months has th e electric, gas, oil, or water [employer] threatened to shut off services in your [...] often do you attend chur ch or pentecostalism services? Never 07/19/2023 Do you belong to any clubs o r organizations such as buddhism groups, unions, fraternal or athletic groups, or [...] Answer Date Recorded PHQ-2 score 0 07/22/2023 [facility] [place] of Occupat ional Health - Occupational Stress [...] is lower risk 8 07/19/2023 Data from: https://www.neighborhoodatlas.medicine.[facility].edu/. Last address used for calculation [...] on filedocumented in this encounter Care Teams Food Court Team Member Relationship Specialty [place] [address] [place] [address] PCP - General Internal Medicine 01/11/22 Sonia Dickerson, SENIOR FACILITIES MANAGER.TRANSLATIONAL SPECIALIST [address] [place] [address] Dairy Specialist Internal Medicine 07/30/24 08/29/24 Fatimah Geiger, SENIOR FACILITIES MANAGER.TRANSLATIONAL SPECIALIST [address] [place] [address] Dairy Specialist Internal Medicine 07/30/24 Ruth Richardson, SENIOR FACILITIES MANAGER.TRANSLATIONAL SPECIALIST [address] [place] [address] [facility] Internal Medicine 07/30/24 08/29/24 Berenice Rivas, SENIOR FACILITIES MANAGER.TRANSLATIONAL SPECIALIST [address] [place] [address] [facility] Internal Medicine 07/30/24 08/29/24 Zarina Pope PA-C [address] [place] [address] Dairy Specialist Internal Medicine 07/30/24 08/29/24 documented as of this encounter
--- OUTSIDE RECORDS SUMMARY | 2025-04-11 13:05 | XMS_ITS | Encounter Summary ---
Author Organization [facility] Address [address] [place] [address] Care Team Providers Care Alcoholism Worker Name Role Phone Unallocated, Noms Provider Primary Care Provi chrissy Amalia Bruce TRANSPLANT CASE MANAGER Unavailable [phone] Encounter Details Date Type Department Care Team (Late Contact Info) Description 02/06/2025 Abstract [facility] [address] [facility] [place] [address] Roscoe Diaz DO [address] [facility] [place] [address] Social History Tobacco Use Types Packs/Day Years [...] 11:30 AM EDT Routine [facility]ARA CAAL [address] [facility] [place] [phone] Roscoe Diaz DO [address] [facility] [place] [address] documented as of this encounter Goals Goal Patient Goal Type Associated Problems Recent Progress Patient-Stated? Author Reminders Care Plan OB Reminders No Open Scheduling, Background documented as of this encounter Visit Diagnoses Not on filedocumented in this encounter Additional Health Concerns Active Problems Noted Date Diagnosed Date OB Reminders 10/19/2024 documented as of this encounter Care Teams Alcoholism Worker Relationship Specialty Start Date End Date Unallocated, Nomgilmar Provider, [address] [place], [place] [id number] PCP - General Family Medicine 10/17/23 Amalia Bruce, TONIA [address] [place] [address] PCP - Capo Commercial 09/22/24 documented as of this encounter
--- OUTSIDE RECORDS SUMMARY | 2025-04-11 13:05 | XMS_ITS | Encounter Summary ---
Author Organization [facility] Address [address] [place] [address] Care Team Providers Care Computer Customer Support Specialist Name Role Phone Dasha Lujan MD Primary Care Provider Sonia Dickerson PERSONALIZED LIVING MANAGER NURSE.ELECTRICAL INSTALLATION SUPERVISOR Unavailable Fatimah Geiger PERSONALIZED LIVING MANAGER NURSE.ELECTRICAL INSTALLATION SUPERVISOR Unavailable Ruth Richardson PERSONALIZED LIVING MANAGER NURSE.ELECTRICAL INSTALLATION SUPERVISOR Unavailable Berenice Rivas APRN.ELECTRICAL INSTALLATION SUPERVISOR Unavailable Zarina Pope PA-C Unavailable Source Comments In the event this information is protected by the Federal Confidentiality of Alcohol and Drug AbusePatient Records regulations: The Federal rules restrict any use of the information to criminally investigate or prosecute any alcohol or drug abuse patient.[facility] Encounter Details Date Type Department Care Team (Late st Contact Info) Description 06/18/2024 Patient Msg Internal Medicine [address] [place] [address] Berenice Rivas APRN.ELECTRICAL INSTALLATION SUPERVISOR [address] [place] [address] Appointment Request Social History Tobacco Use Types Packs/Day Years Used Date Smoking Tobacco: Never Smokeless Tobacco: Never Alcohol Use Standard Drinks/Week Comments Yes 1.3 (1 standard drink = 0.6 oz p ure alcohol) occ. drink [facility] Utilities Answer Date Recorded In the past 12 months has th e electric, gas, oil, or water [employer] threatened to shut off services in your [...] often do you attend chur ch or anglican services? Never 07/19/2023 Do you belong to any clubs o r organizations such as anabaptism groups, unions, fraternal or athletic groups, or [...] Answer Date Recorded PHQ-2 score 0 07/22/2023 [facility] [place] of Occupat ional Health - Occupational Stress [...] is lower risk 8 07/19/2023 Data from: https://www.neighborhoodatlas.medicine.[facility].edu/. Last address used for calculation [address] [...] on filedocumented in this encounter Care Teams Computer Customer Support Specialist Relationship Specialty [place] [address] [place] [address] PCP - General Internal Medicine 01/11/22 Sonia Dickerson, PERSONALIZED LIVING MANAGER NURSE.ELECTRICAL INSTALLATION SUPERVISOR [address] [place] [address] [facility] Internal Medicine 07/30/24 08/29/24 Fatimah Geiger, PERSONALIZED LIVING MANAGER NURSE.ELECTRICAL INSTALLATION SUPERVISOR [address] [place] [address] [employer] [facility] Internal Medicine 07/30/24 Ruth Richardson, PERSONALIZED LIVING MANAGER NURSE.ELECTRICAL INSTALLATION SUPERVISOR [address] [place] [address] [facility] Internal Medicine 07/30/24 08/29/24 Berenice Rivas, PERSONALIZED LIVING MANAGER NURSE.ELECTRICAL INSTALLATION SUPERVISOR [address] [place] [address] [facility] Internal Medicine 07/30/24 08/29/24 Zarina Pope PA-C [address] [place] [address] [facility] Internal Medicine 07/30/24 08/29/24 documented as of this encounter
--- OUTSIDE RECORDS SUMMARY | 2025-04-11 13:13 | XMS_ITS | CCD ---
Author Organization [facility] CliniSyin Care Team Providers Care Cat Operator Name Role Phone Unavailable Primary Care Provider UnavailDasha Kern MD Primary Care Provider MD Dasha Lujan Primary Care Provider BRETT Breaux Attending Provider [phone] Reena Breaux Admitting Unavailable Reena Breaux Attending [...] Unavailable Unallocated , N[place] Provider Primary Care [facility] Teo TRANSPORTATION SECURITY OFFICER, Edu N Unavailable Teo TRANSPORTATION SECURITY OFFICER, Edu N Unavailable [phone] Unavailable Primary Care Provider UnavailDEVIKA Lima Attending Unavailable JOE, ROSCOE R Referring Unavailable PETR MORELEN Emelia Attending Unavailable JOE, ROSCOE R Referring Unavailable PETR MORELEN Emelia Attending Unavailable JOE, ROSCOE R Referring Unavailable JOE, ROSCOE Attending Unavailable ORALIA, ROSY Attending Unavailable JOE, ROSCOE Attending Unavailable ORALIA, ROSY Attending Unavailable ORALIA, ROSY Referring Unavailable JOE, ROSCOE Attending Unavailable ORALIA, ROSY Attending Unavailable JOE, ROSCOE Attending Unavailable ROSCOE DIAZ Referring Unavailable SINA GARNER Attending Unavailable SINA GARNER Referring Unavailable EDU ALVAREZ Attending Unavailable Medications Current Medications Medication Drug Class(es) Dates Sig (Normalized) Sig (Original) aspirin 81 mg delayed release oral tablet (8 sources) Platelet Aggregation Inhibitor, Nonsteroidal Anti-inflammatory Drug [...] Glucose Monitoring Suppl (D-Care Glucometer) w/Device kit (13 sources) Start: 02-04-2025 End: 02-04-2026 Blood Glucose Monitoring Suppl (D-Care Glucometer) w/Device kit Indications: Gestational diabetes mellitus (GDM), antepartum, gestational diabetes method of control unspecified ([facility]) , Elevated glucose tolerance test 1 kit Daily Use four times daily to check FSBS. In the morning prior to breakfast & 1 hour after each meal for a total of 4times daily. 1 kit 02/04/2025 02/04/2026 Active 3 ml insulin glargine 100 unt/ml pen injector (15 sources) Insulin Analog Start: 03-12-2025 inject 10 [...] Active isopropyl alcohol 0.7 ml/ml medicated pad (13 sources) Start: 02-04-2025 Alcohol Swabs (Alcohol Prep Pad) 70 % pads Indications: Gestational diabetes mellitus (GDM), antepartum, gestational diabetes method of control unspecified ([facility]) , Elevated glucose tolerance test Apply 1 Pad topically Daily Use four times daily to check FSBS. 150 each 3 02/04/2025 Active omeprazole 20 mg delayed release oral capsule (20 sources) Proton Pump Inhibitor Start: 04-16-2022 Omeprazole Magnesium (ACID INSPECTOR TOOL, OMEPRAZOLE,) 20 mg cpDR 04/16/2022 Active take [...] Active ondansetron 4 mg disintegrating oral tablet (16 sources) Serotonin-3 Receptor Antagonist Start: 10-18-2024 End: [...] 30 days. BMI 29.76 polyethylene glycol 3350 24113 mg powder for oral solution (2 sources) Osmotic Laxative Start: End: take 17 g by mouth once polyethylene glycol, PEG, 3350 (Glycolax) 17 GM/SCOOP powder Indications: Colonoscopy Take 238 g by mouth 1 (one) time for 1 dose Take as detailed from clinic hand out for colonoscopy prep 238 g 07/25/2024 07/25/2024 Active 25-IRON IVE-FKOXH-JFO ORAL (11 sources) take 1 tablet by mouth in the morning 25-IRON ADL-ENVYS-AML ORAL Take 1 tablet by mouth in the morning. Active Vit-Fe Fumarate-FA ( 19) 29-1 MG chewable tablet (20 sources) Start: Vit-Fe Fumarate-FA ( 19) 29-1 MG chewable tablet Indications: , unspecified gestational age ([facility]) Chew 1 each Daily 30 tablet [...] tablet by mouth Daily 30 tablet 10/17/2023 07/25/2024 Discontinued (Therapy completed) Start: 10-17-2023 [...] tolerance complicating ; childbirth; or the puerperium (19 sources) Gestational diabetes mellitus; Translations: [Gestational diabetes [...] Episodic Unclassified (20 sources) OB Reminders Onset: 5 10-19-2024 Unclassified (1 source) Elevated Glucose Tolerance [...] Facility US OB BPP W NON-STRESS on 04-08-[address] [address] Ultrasound Report Signed Patient: CARYL ZAMARRIPA MR#: [id number] : 1990 Acct:[id number] Age/Sex: 34 / F ADM Date: 04/08/25 Loc: US Attending Dr: Rosy Quiroz Ordering Physician: Rosy Quiroz Date of Service: 04/08/25 Procedure(s): US OB BPP w non-stress Accession Number(s): [id number] cc: Rosy Quiroz; Physician,Non-Staff Shimon The [place] [id number] Patient Name: CARYL ZAMARRIPA MRN: [facility]:[id number] date: 1990 Sex: F Assigned Patient Location: [facility] Current Patient Location: Accession/Order Number: [id number] Exam Date: 04/08/2025 20:36 Report Date: 04/08/2025 [...] Briscoe M.D. 04/08/2025 8:37 PM Dictation Location: [place] [address] Electronically authenticated by: [id number] Y Date: 04/08/2025 20:37 Dictated By: Suraj Briscoe D.O. Signed By: 04/08/252038 DD/ 36 TD/TT: Tufting Machine Operator Single Needle: [facility] Radiology, Radiologist, - 04/08/2025 [place] [address] Ultrasound Report Signed Patient: CARYL ZAMARRIPA MR#: [id number] : 1990 Acct:[id number] Age/Sex: 34 / F ADM Date: 04/08/25 Loc: US Attending Dr: Rosy Quiroz Ordering Physician: Rosy Quiroz Date of Service: 04/08/25 Procedure(s): US OB BPP w non-stress Accession Number(s): [id number] cc: Rosy Quiroz; Physician,Non-Staff Shimon [address] [address] Patient Name: CARYL ZAMARRIPA MRN: [id number] date: 1990 Sex: F Assigned Patient Location: [facility] Current Patient Location: Accession/Order Number: [id number] Exam Date: 04/08/2025 20:36 Report Date: 04/08/2025 [...] Briscoe M.D. 04/08/2025 8:37 PM Dictation Location: [place] [address] Electronically authenticated by: [id number] Y Date: 04/08/2025 20:37 Dictated By: Suraj Briscoe D.O. Signed By: 04/08/252038 DD/ 36 TD/TT: Tufting Machine Operator Single Needle: [facility] Radiology Study observation (narrative) [facility] OB BPP W NON-STRESS Ordered By: Radiologist Radiology on 04-08-2025 [facility] Work Phone: US OB FOLLOW UP TRANSABDOMIN AL APPROACHon 04-08-2025 US OB FOLLOW UP TRANSABDOMINAL APPROACH EXAM: US OB FOLLOW UP TRANSABDOMINAL APPROACH [...] II, MD, PHD at 09-Apr-2025 07:59:18 AM [facility] Normal Not Available Comment on above: Order Comment: US OB SCAN FOR GROWTH Estimated Date of Delivery: 05/19/25 Gestational Age as of 04/05/2025: 33w5d US OB BPP W NON-STRESS on 04-01-2025 [place] [address] Ultrasound Report Signed Patient: CARYL ZAMARRIPA MR#: [id number] : 1990 Acct:[id number] Age/Sex: 34 / F ADM Date: 04/01/25 Loc: [place] [address]: Rosy Quiroz Ordering Physician: Rosy Quiroz Date of Service: 04/01/25 Procedure(s): US OB BPP w non-stress Accession Number(s): [id number] cc: Rosy Quiroz; Physician,Non-Staff M.D. The [place] [address] Patient Name: CARYL ZAMARRIPA MRN: [id number] date: 1990 Sex: F Assigned Patient Location: US Current Patient Location: US Accession/Order Number: [id number] Exam Date: 04/01/2025 15:28 Report Date: 04/01/2025 15:29 At the request of: ROSY QUIROZ Procedure: US OB BPP w non-stress Biophysical profile. Reason for exam: History of gastric sleeve surgery COMPARISON: None TECHNIQUE: Transabdominal imaging of the gravid uterus was obtained. FINDINGS: The cloth bleaching range back tender reports a BPP of 8 out of 8. HELLEN is normal at 10.8 cm. heart rate 125 bpm. US/US OB BPP w non-stress IMPRESSION: BPP 8 out of 8. Impression dictated by: Cy Jensen Jr., D.O. 04/01/2025 3:29 PM Dictation Location: [place] [address] Electronically authenticated by: [id number] Y Date: 04/01/2025 15:29 Dictated By: Cy Jensen M.D. Signed By: 04/01/25 1531 DD/ 1529 TD/TT: Tufting Machine Operator Single Needle: [facility] Radiology, Radiologist, MD - 04/01/2025 [place] [address] Ultrasound Report Signed Patient: CARYL ZAMARRIPA MR#: [id number] : 1990 Acct:[id number] Age/Sex: 34 / F ADM Date: 04/01/25 Loc: [facility] 250-[address]: Rosy Quiroz Ordering Physician: Rosy Quiroz Date of Service: 04/01/25 Procedure(s): US OB BPP w non-stress Accession Number(s): [id number] cc: Rosy Quiroz; Physician,Non-Staff Shimon The [place] [address] Patient Name: CARYL ZAMARRIPA MRN: [facility]:[id number] date: 1990 Sex: F Assigned Patient Location: Current Patient Location: US Accession/Order Number: [id number] Exam Date: 04/01/2025 15:28 Report Date: 04/01/2025 15:29 At the request of: ROSY QUIROZ Procedure: US OB BPP w non-stress Biophysical profile. Reason for exam: History of gastric sleeve surgery COMPARISON: None TECHNIQUE: Transabdominal imaging of the gravid uterus was obtained. FINDINGS: The cloth bleaching range back tender reports a BPP of 8 out of 8. HELLEN is normal at 10.8 cm. heart rate 125 bpm. US/US OB BPP w non-stress IMPRESSION: BPP 8 out of 8. Impression dictated by: Cy Jensen Jr., D.O. 04/01/2025 3:29 PM Dictation Location: [place] [address] Electronically authenticated by: [id number] Y Date: 04/01/2025 15:29 Dictated By: Cy Jensen M.D. Signed By: 04/01/25 1531 DD/ 1529 TD/TT: Tufting Machine Operator Single Needle: [facility] Radiology Study observation (narrative) [facility] US OB BPP W NON-STRESS Ordered By: Radiologist Radiology on 04-01-2025 [facility] Work Phone: Urinalysis macro (dipstick) panel (U)on 03-27-2025 Bilirubin, UA Negative Negative - 4(70) +++ mg/dL [facility] Blood, UA Negative Negative - 50 Iraj/mcL [facility] Clarity, UA Clear [facility] Color, UA Yellow [facility] Glucose, UA Negative Negative - 2000(110) ++++ mg/dL [facility] Interpretation and review of laboratory results Abnormal [facility] Ketones, UA Positive Negative - 160(16) ++++ mg/dL [facility] Leukocytes, UA Few Negative - 500+++ Mari/mcL [facility] Nitrite, UA Negative Negative - Positive [facility] pH, UA 6 5 - 9 [facility] Protein, UA Few Negative - 2000(20) ++++ mg/dL [facility] Spec Grav, UA 1.03 1 - 1.03 [facility] Urobilinogen, UA 0.2 0.2 - 12 mg/dL [facility] Urinalysis macro (dipstick) panel (U)on 03-13-2025 Bilirubin, UA Negative Negative - 4(70) +++ mg/dL [facility] Blood, UA Negative Negative - 50 Iraj/mcL [facility] Clarity, UA Clear [facility] Color, UA Yellow [facility] Glucose, UA Negative Negative - 2000(110) ++++ mg/dL [facility] Interpretation and review of laboratory results Normal [facility] Ketones, UA Negative Negative - 160(16) ++++ mg/dL [facility] Leukocytes, UA Negative Negative - 500+++ Mari/mcL [facility] Nitrite, UA Negative Negative - Positive [facility] pH, UA 6 5 - 9 [facility] Protein, UA Negative Negative - 1999(20) ++++ mg/dL [facility] Spec Grav, UA 1.01 1 - 1.03 [facility] Urobilinogen, UA 1.0 0.2 - 12 mg/dL [facility] US OB FOLLOW UP TRANSABDOMIN AL APPROACHon [...] UA Negative Negative - 4(70) +++ mg/dL [facility] Blood, UA Negative Negative - 50 Iraj/mcL [facility] Clarity, UA Clear [facility] Color, UA Colorless [facility] Glucose, UA Negative Negative - 1999(110) ++++ mg/dL [facility] Interpretation and review of laboratory results Normal [facility] Ketones, UA Negative Negative - 160(16) ++++ mg/dL [facility] Leukocytes, UA Negative Negative - 500+++ Mari/mcL [facility] Nitrite, UA Negative Negative - Positive [facility] pH, UA 6 5 - 9 [facility] Protein, UA Negative Negative - 2000(20) ++++ mg/dL [facility] Spec Grav, UA 1.01 1 - 1.03 [facility] Urobilinogen, UA 1.0 0.2 - 12 mg/dL [facility] Glucose random or fasting- P OCTon 02-14-2025 External Glucose Fasting Or Random (Fbs) 88 [facility] Urinalysis macro (dipstick) panel (U)on 02-11-2025 Bilirubin, UA Negative Negative - 4(70) +++ mg/dL [facility] Blood, UA Negative Negative - 50 Iraj/mcL [facility] Clarity, UA Clear [facility] Color, UA Yellow [facility] Glucose, UA Positive Negative - 1999(110) ++++ mg/dL [facility] Comment on above: 500mg/dL Interpretation and review of laboratory results Abnormal [facility] Ketones, UA Negative Negative - 160(16) ++++ mg/dL [facility] Leukocytes, UA Negative Negative - 500+++ Mari/mcL [facility] Nitrite, UA Negative Negative - Positive [facility] pH, UA 6 5 - 9 [facility] Protein, UA Negative Negative - 2000(20) ++++ mg/dL [facility] Spec Grav, UA 1.005 1 - 1.03 [facility] Urobilinogen, UA 0.2 0.2 - 12 mg/dL [facility] ALL CBC WITH AUTO DIFFon BASOPHILS ABSOLUTE AUTO 0 N [facility] Basophils/100 WBC (Bld) 0.2 % 0.2 - 2.0 % [facility] Eosinophils/100 WBC (Bld) 1.1 % 0.9 - 7.0 % [facility] Erythrocyte distribution width (RBC) [Ratio] 13.6 % 11.0 - 15.0 % [facility] IMMATURE GRANULOCYTES ABS AUTO 0.04 High [facility] Immature granulocytes/100 WBC (Bld) 0.4 % 0.0 - 0.5 % [facility] Interpretation and review of laboratory results Abnormal [facility] LYMPHOCYTES ABSOLUTE AUTO 1.2 [facility] Lymphocytes/100 WBC (Bld) 12.5 % Low 20.5 - 60.0 % [facility] MCH (RBC) [Entitic mass] 33.9 pg 26. 7 - 34.0 pg [facility] MCHC (RBC) [Mass/Vol] 33.9 g/dL 29.9 - 35.2 g/dL [facility] MCV (RBC) [Entitic vol] 100 fL High 81.0 - 99.0 fL [facility] MONOCYTES ABSOLUTE AUTO 0.4 N [facility] Monocytes/100 WBC (Bld) 3.9 % 1.7 - 12.0 % [facility] NEUTROPHILS ABSOLUTE AUTO 7.7 High [facility] Neutrophils/100 WBC (Bld) 81.9 % High 43.0 - 75.0 % [facility] Platelet mean volume (Bld) [Entitic vol] 11 fL 9.5 - 13.5 fL [facility] EO # 0.1 [facility] PLT 172 [facility] RBC 3.39 Low [facility] WBC 9.4 [facility] Glucose 1h post 50g loadon 0 02-01-2025 Glucose, 1 hr PP 50GM dose 198 [facility] - Hematology and Cell countson 02-01-2025 Hematocrit (Bld) [Volume fraction] 33.9 % [facility] Hemoglobin (Bld) [Mass/Vol] 11.5 g/dL [facility] No Panel Informationon 02-01 [facility] US OB LIMITED 1+ FETUSESon 0 01-30-2025 [...] II, MD, PHD at 01-Feb-2025 10:22:21 AM [facility] Normal Not Available Comment on above: Order Comment: US OB INCOMPLETE ANATOMY Estimated Date of Delivery: 05/19/25 Gestational Age as of 01/07/2025: 21w1d Urinalysis macro (dipstick) panel (U)on 01-10-2025 Bilirubin, UA Negative Negative - 4(70) +++ mg/dL [facility] Blood, UA Negative Negative - 50 Iraj/mcL [facility] Clarity, UA Clear [facility] Color, UA Yellow [facility] Glucose, UA Negative Negative - 1999(110) ++++ mg/dL [facility] Interpretation and review of laboratory results Abnormal [facility] Ketones, UA Positive Negative - 160(16) ++++ mg/dL [facility] Leukocytes, UA Negative Negative - 500+++ Mari/mcL [facility] Nitrite, UA Negative Negative - Positive [facility] pH, UA 6 5 - 9 [facility] Protein, UA Negative Negative - 1999(20) ++++ mg/dL [facility] Spec Grav, UA 1.01 1 - 1.03 [facility] Urobilinogen, UA 0.2 0.2 - 12 mg/dL [facility] No Panel InformationOrdered By: Radiologist Radiology on 01-02-2025 [facility] Work Phone: No Panel Informationon 01-02 Radiology Study observation (narrative) [facility] US OB ANATOMYon 01-02-2025 [place] [address] Ultrasound Report Signed Patient: CARYL ZAMARRIPA MR#: [id number] : 1990 Acct:[id number] Age/Sex: 34 / F ADM Date: 01/02/25 Loc: US Attending Dr: Roscoe Diaz D.O. Ordering Physician: Roscoe Diaz D.O. Date of Service: 01/02/25 Procedure(s): US OB anatomy Accession Number(s): [id number] cc: Roscoe Diaz D.O.; Physician,Non-Staff M.DCharisse [place] [address] Patient Name: CARYL ZAMARRIPA MRN: [id number] date: 1990 Sex: F Assigned Patient Location: US Current Patient Location: US Accession/Order Number: [id number] Exam Date: 01/02/2025 22:40 Report Date: 01/02/2025 [...] Briscoe M.D. 01/02/2025 10:47 PM Dictation [facility] Electronically authenticated by: [id number] Y Date: 01/02/2025 22:47 Dictated By: Suraj Briscoe D.O. Signed By: 01/02/254 DD/ 46 TD/TT: Tufting Machine Operator Single Needle: [facility] Radiology, Radiologist, MD - 01/02/[address] [address] Ultrasound Report Signed Patient: CARYL ZAMARRIPA MR#: [id number] : 1990 Acct:[id number] Age/Sex: 34 / F ADM Date: 01/02/25 Loc: US Attending Dr: Roscoe Diaz D.O. Ordering Physician: Roscoe Diaz D.O. Date of Service: 01/02/25 Procedure(s): US OB anatomy Accession Number(s): [id number] cc: Roscoe Diaz D.O.; Physician,Non-Staff Shimon The [address] [address] Patient Name: CARYL ZAMARRIPA MRN: [facility]:[id number] date: 1990 Sex: F Assigned Patient Location: US Current Patient Location: US Accession/Order Number: [id number] Exam Date: 01/02/2025 22:40 Report Date: 01/02/2025 [...] Briscoe M.D. 01/02/2025 10:47 PM Dictation Location: [employer] Electronically authenticated by: [id number] Y Date: 01/02/2025 22:47 Dictated By: Suraj Briscoe D.O. Signed By: 01/02/252249 DD/ 46 TD/TT: Tufting Machine Operator Single Needle: [facility] OB CERVICAL LENGTHon 12-20 [place] [address] Ultrasound Report Signed Patient: CARYL ZAMARRPIA MR#: [id number] : 1990 Acct:[id number] Age/Sex: 34 / F ADM Date: 01/02/25 Loc: US Attending Dr: Roscoe Diaz D.O. Ordering Physician: Roscoe Diaz D.O. Date of Service: 01/02/25 Procedure(s): US OB cervical length Accession Number(s): [id number] cc: Roscoe Diaz D.O.; Physician,Non-Staff Shimon The [place] [id number] Patient Name: CARYL ZAMARRIPA MRN: [id number] date: 1990 Sex: F Assigned Patient Location: US Current Patient Location: US Accession/Order Number: [id number] Exam Date: 01/02/2025 22:40 Report Date: 01/02/2025 [...] Briscoe M.D. 01/02/2025 10:47 PM Dictation Location: [place] [address] Electronically authenticated by: [id number] Y Date: 01/02/2025 22:47 Dictated By: Suraj Briscoe D.O. Signed By: 01/02/25 2250 DD/ 2247 TD/TT: Tufting Machine Operator Single Needle: [facility] Radiology, Radiologist, MD - 01/02/2025 [place] [address] Ultrasound Report Signed Patient: CARYL ZAMARRIPA MR#: [id number] : 1990 Acct:[id number] Age/Sex: 34 / F ADM Date: 01/02/25 Loc: US Attending Dr: Roscoe Diaz D.O. Ordering Physician: Roscoe Diaz D.O. Date of Service: 01/02/25 Procedure(s): US OB cervical length Accession Number(s): [id number] cc: Roscoe Diaz D.O.; Physician,Non-Staff Shimon [address] [address] Patient Name: CARYL ZAMARRIPA MRN: [id number] date: 1990 Sex: F Assigned Patient Location: US Current Patient Location: US Accession/Order Number: [id number] Exam Date: 01/02/2025 22:40 Report Date: 01/02/2025 [...] Briscoe M.D. 01/02/2025 10:47 PM Dictation Location: [facility] Electronically authenticated by: [id number] Y Date: 01/02/2025 22:47 Dictated By: Suraj Briscoe D.O. Signed By: 01/02/252249 DD/ 46 TD/TT: Tufting Machine Operator Single Needle: [facility] AFP Single Marker Casey Bangura, Serumon 12-31-2024 Ms Alpha-Fetoprotein Negative [facility] IGP,APTIMA HPV,AGE GDLNon AGE GDLN ACOG TESTING Note . [facility] Comment on above: TESTS RESULT FLAG UN ITS REF RANGE LAB Clinician Provided Cytology Information Source.............[employer] Other.............. No. of containers..01 ThinPrep Vial Age Algo ACOG Enedina... 30-65 01 FLAG LEGEND: L-Low Normal,H-High Normal,LL-Alert Low,HH-Alert High <-Panic Low,>-Panic High,A-Abnormal,AA-Critical Abnormal Performed at: 01 =G [address] [address] Rossy Odonnell MD, HPV APTIMA Negative Negative [facility] Comment on above: This nucleic acid am plification test detects fourteen high- risk HPV types (16,18,31,33,35,39,45,51,52,56,58,59,66,68) without differentiation. Performed at: =G - [facility] [id number] Shoulder Boner: Rossy Odonnell MD, Phone: [phone] Performed at: [facility] [address] [facility], [place] [id number] Shoulder Boner: Rossy Odonnell MD, Phone: [phone] IGP, APTIMA HPV, RFX 16/18,45 Note . [facility] Comment on above: TESTS RESULT FLAG U NITS REF RANGE LAB DIAGNOSIS: 02 NEGATIVE FOR INTRAEPITHELIAL LESION OR MALIGNANCY. Specimen adequacy: 02 Satisfactory for evaluation. No endocervical component is identified. An endocervical component is not commonly seen in the patient. Performed by: Ronan Lucero, Welder And Fitter ([facility]) . 02 Note: Note 02 [...] <-Panic Low,>-Panic High,A-Abnormal,AA-Critical Abnormal Performed at: [address] [address] Rossy Odonnell MD, SPATULA-ALONE [facility] RECURRENT VAGINITIS (HTRX)on 12-11-2024 ATOPOBIUM VAGINAE 0 [facility] ATOPOBIUM VAGINAE Not detected [facility] BVAB 2,3 (BACTERIAL VAGINOSIS ASSOCIATED BACTERIA 2, 3); MOBILUNCUS SPP 0 [facility] BVAB 2,3 (BACTERIAL VAGINOSIS ASSOCIATED BACTERIA 2, 3); MOBILUNCUS SPP Not detected [facility] HAMILTON ALBICANS, PARAPSILOSIS, TROPICALIS 0 [facility] H[place] ALBICANS, PARAPSILOSIS, TROPICALIS Not detected [facility] H[place]IL[place] GLABRATA 0 [facility] HAMILTON GLABRATA Not detected [facility] [facility] HAMIL[facility] KRUSEI 0 [facility] HAMILTON KRUSEI Not detected [facility] CHLAMYDIA TRACHOMATIS 0 [facility] S [facility] CHLAMYDIA TRACHOMATIS Not detected N [facility] GARDNERELLA VAGINALIS 0 [facility] GARDNERELLA VAGINALIS Not detected N [facility] MEGASPHAERA (TYPES 1, 2) 0 [facility] MEGASPHAERA (TYPES 1, 2) Not detected [facility] MYCOPLASMA GENITALIUM 0 [facility] S [facility] MYCOPLASMA GENITALIUM Not detected N [facility] NEISSERIA GONORRHOEAE 0 [facility] NEISSERIA GONORRHOEAE Not detected N S [facility] TRICHOMONAS VAGINALIS 0 [facility] S [facility] TRICHOMONAS VAGINALIS Not detected N S [facility] Healthcare Urinalysis macro (dipstick) panel (U)on 12-10-2024 Bilirubin, UA Negative Negative - 4(70) +++ mg/dL [facility] Blood, UA Negative Negative - 50 Iraj/mcL [facility] Clarity, UA Clear [facility] Color, UA Yellow [facility] Glucose, UA Negative Negative - 1999(110) ++++ mg/dL [facility] Interpretation and review of laboratory results Normal [facility] Ketones, UA Negative Negative - 160(16) ++++ mg/dL [facility] Leukocytes, UA Trace Negative - 500+++ Mari/mcL [facility] Nitrite, UA Negative Negative - Positive [facility] pH, UA 6 5 - 9 [facility] Protein, UA Negative Negative - 1999(20) ++++ mg/dL [facility] Spec Grav, UA 1.01 1 - 1.03 [facility] Urobilinogen, UA 0.2 0.2 - 12 mg/dL [facility] Urinalysis macro (dipstick) panel (U)on 11-08-2024 Bilirubin, UA Negative Negative - 4(70) +++ mg/dL [facility] Blood, UA Negative Negative - 50 Iraj/mcL [facility] Clarity, UA Clear [facility] Color, UA Yellow [facility] Glucose, UA Negative Negative - 1999(110) ++++ mg/dL [facility] Interpretation and review of laboratory results Normal [facility] Ketones, UA Negative Negative - 160(16) ++++ mg/dL [facility] Leukocytes, UA Negative Negative - 500+++ Mari/mcL [facility] Nitrite, UA Negative Negative - Positive [facility] pH, UA 6 5 - 9 [facility] Protein, UA Negative Negative - 1999(20) ++++ mg/dL [facility] Spec Grav, UA 1.015 1 - 1.03 [facility] Urobilinogen, UA 0.2 0.2 - 12 mg/dL [facility] ALL CBC WITH AUTO DIFFon BASOPHILS ABSOLUTE AUTO 0 N [facility] Basophils/100 WBC (Bld) 0.4 % 0.2 - 2.0 % [facility] Eosinophils/100 WBC (Bld) 1.2 % 0.9 - 7.0 % [facility] Erythrocyte distribution width (RBC) [Ratio] 12.4 % 11.0 - 15.0 % [facility] IMMATURE GRANULOCYTES ABS AUTO 0.02 [facility] Immature granulocytes/100 WBC (Bld) 0.2 % 0.0 - 0.5 % [facility] Interpretation and review of laboratory results Abnormal [facility] LYMPHOCYTES ABSOLUTE AUTO 2.2 [facility] Lymphocytes/100 WBC (Bld) 27.2 % 20.5 - 60.0 % [facility] MCH (RBC) [Entitic mass] 33.5 pg 26. 7 - 34.0 pg [facility] MCHC (RBC) [Mass/Vol] 35.3 g/dL High 29.9 - 35.2 g/dL [facility] MCV (RBC) [Entitic vol] 94.9 fL 81.0 - 99.0 fL [facility] MONOCYTES ABSOLUTE AUTO 0.4 N [facility] Monocytes/100 WBC (Bld) 4.9 % 1.7 - 12.0 % [facility] NEUTROPHILS ABSOLUTE AUTO 5.4 [facility] Neutrophils/100 WBC (Bld) 66.1 % 43.0 - 75.0 % [facility] Platelet mean volume (Bld) [Entitic vol] 11.2 fL 9.5 - 13.5 fL [facility] TBH EO # 0.1 [facility] TBH PLT 169 [facility] TB RBC 3.55 Low [facility] TB WBC 8.2 [facility] CBC without diffon Platelets (Bld) [#/Vol] 169 10*3/uL [facility] Rbc Mcv (Fl) By Automated Count 94.9 [facility] Drug Screen, Urineon 025 Amphetamine/Methamphetam ine Negative [facility] Barbiturates Negative [facility] Benzodiazepines Negative [facility] Cocaine Metabolite Negative [facility] Methadone Negative [facility] Opiates Negative [facility] Oxycodone Negative [facility] Phencyclidine Negative [facility] Thc Marijuana, Urine Negative [facility] Free Cell DNAon 2024 Free Cell Dna LOW RISK [facility] HBV surface Ag IA Qlon 10-19 Hepatitis B Surface Antigen Negative [facility] HCV Ab IA Qlon 10-19-2024 HCV Ab Ql (S) Non-Reactive [facility] HIV 1+2 Ab+HIV1 p24 Ag IA Ql on 10-19-2024 HIV 1&2 AB/AG Non-Reactive [facility] Hemoglobin A1con 10-19-2024 HbA1c (Bld) [Mass fraction] 5.1 % 4.0 - 6.0 % [facility] Laboratory - Hematology and Cell countson 10-19-2024 Hematocrit (Bld) [Volume fraction] 33.7 % [facility] Hemoglobin (Bld) [Mass/Vol] 11.9 g/dL [facility] No Panel Informationon 10-19 [facility] Rubella IGG immune statuson 10-19-2024 Rubella immune IgG IMMUNE [facility] T. pallidum IgG+IgM IA Ql (S )on 10-19-2024 Syphilis Non-Reactive [facility] System Type and screenon 10-19-2024 Abo/Rh(D) Positive [facility] HCG ( test) Ql (U)o n 10-18-2024 Interpretation and review of laboratory results Abnormal [facility] Healthcare Preg Test, Ur Positive Negative [facility] US OB TRANSVAGINALon 025 US OB TRANSVAGINAL [...] 10 weeks 0 days (+/- 6 days). VALETNIN by today's ultrasound is 05/16/2025. 2. Normal color Doppler evaluation of the left ovary, the right ovary was not visualized. Electronically Signed:Electronicall y signed by BRITTANY FERREIRA II, MD, PHD at 20-Oct-2024 07:21:51 AM [facility] Normal Not Available Comment on above: Order Comment: US OB TRANSVAGINAL No LMP recorded. Urinalysis macro (dipstick) panel (U)on 10-18-2024 Bilirubin, UA Negative Negative - 4(70) +++ mg/dL [facility] Blood, UA Negative Negative - 50 Iraj/mcL [facility] Clarity, UA Clear [facility] Color, UA Yellow [facility] Glucose, UA Negative Negative - 2000(110) ++++ mg/dL [facility] Interpretation and review of laboratory results Normal [facility] Ketones, UA Negative Negative - 160(16) ++++ mg/dL [facility] Leukocytes, UA Negative Negative - 500+++ Mari/mcL [facility] Nitrite, UA Negative Negative - Positive [facility] pH, UA 6 5 - 9 [facility] Protein, UA Negative Negative - 1999(20) ++++ mg/dL [facility] Spec Grav, UA 1.01 1 - 1.03 [facility] Urobilinogen, UA 1.0 0.2 - 12 mg/dL [facility] CNOVon 06-29-2024 CNOV Office Visit (INMAVN) CARYL ZAMARRIPA ([id number]) 1990 F Date Time Provider Department 06/29/24 12:40 PM [facility] visit today, we recorded the following information about you: Pulse Blood pressure Weight 65/minute 101/68 75.8 kg Berenice Zepeda APRN.LAPPING MACHINE SET UP OPERATOR 06/29/2024 1:25 PM Signed Caryl Zamarripa is [...] - PHENTERMINE 37.5 MG TABLET Berenice Zepeda APRN.LAPPING MACHINE SET UP OPERATOR Allergies As of Date: 06/29/2024 (No Known [...] days. BMI 29.58kg/m2 - Omeprazole Magnesium (ACID INSPECTOR TOOL, OMEPRAZOLE,) 20 mg cpDR Problem List As Of Date: 06/29/2024 (None) Prescriptions ordered this encounter Disp Refills Start End PHENTERMINE 37.5 MG TABLET 30 t* 0 06/29/2024 07/29/2024 Route: ORAL Sig: Take 1 tablet by mouth once daily for 30 days. BMI 29.58kg/m2 Encounter Status:Closed by BERENICE ZEPEDA on 06/29/24 [facility] CNOVon 08-23-2023 CNOV Office Visit (INMAVN) CARYL ZAMARRIPA ([id number]) 1990 F Date Time Provider Department 08/23/23 4:00 PM [facility] During your visit today, we recorded the following information about you: Pulse Blood pressure Weight Last Period 54/minute 121/77 77.6 kg 08/08/23 Berenice Zepeda APRN.LAPPING MACHINE SET UP OPERATOR 08/25/2023 12:23 PM Signed Caryl Zamarripa is [...] - PHENTERMINE 37.5 MG TABLET Berenice Zepeda APRN.LAPPING MACHINE SET UP OPERATOR Allergies As of Date: 08/23/2023 (No Known [...] for 2 days. - Omeprazole Magnesium (ACID INSPECTOR TOOL, OMEPRAZOLE,) 20 mg cpDR Problem List As [...] Status:Closed by BERENICE ZEPEDA on 08/25/23 Normal [facility] CBC W Auto Differential pane l (Bld)on 07-26-2023 Basophils (Bld) [#/Vol] 0.03 10*3/uL Normal <0.11 [facility] Comment on above: Order Comment: Speci men Type: BLOOD SPECIMEN Ordering Facility: [facility] Address: [address] [place] [address] Performed By: #### 5 7021-8 #### [facility] CLIA [id number] [address] [place] [address] 77309 Basophils/100 WBC (Bld) 0.6 % Normal [facility] Comment on above: Order Comment: Speci men Type: BLOOD SPECIMEN Ordering Facility: [facility] Address: [address] [place] [address] Performed By: #### 5 7021-8 #### [facility] CLIA [id number] [address] [place] [address] 93122 Differential cell count method Nom (Bld) Auto Normal [facility] Comment on above: Order Comment: Speci men Type: BLOOD SPECIMEN Ordering Facility: [facility] Address: [address] [place] [address] Performed By: #### 5 7021-8 #### [facility] CLIA [id number] [address] [place] [address] 74011 Eosinophils (Bld) [#/Vol] 0.13 10*3/uL Normal <0.46 [facility] Comment on above: Order Comment: Speci men Type: BLOOD SPECIMEN Ordering Facility: [facility] Address: [address] [place] [address] Performed By: #### 5 7021-8 #### [facility] CLIA [id number] [address] [place] [address] Eosinophils/100 WBC (Bld) 2.6 % Normal [facility] Comment on above: Order Comment: Speci men Type: BLOOD SPECIMEN Ordering Facility: [facility] Address: [address] [place] [address] Performed By: #### 5 7021-8 #### [facility] CLIA [id number] [address] [place] [address] 53156 Erythrocyte distribution width (RBC) [Ratio] 12.1 % Normal 11.5-15.0 [facility] Comment on above: Order Comment: Speci men Type: BLOOD SPECIMEN Ordering Facility: [facility] Address: [address] [place] [address] Performed By: #### 5 7021-8 #### [facility] CLIA [id number] [address] [place] [address] 68008 Hematocrit (Bld) [Volume fraction] 37.0 % Normal 36.0-46.0 [facility] Comment on above: Order Comment: Speci men Type: BLOOD SPECIMEN Ordering Facility: [facility] Address: [address] [place] [address] Performed By: #### 5 7021-8 #### [facility] CLIA [id number] [address] [place] [address] 38496 Hemoglobin (Bld) [Mass/Vol] 12.6 g/dL Normal 11.5-15.5 [facility] Comment on above: Order Comment: Speci men Type: BLOOD SPECIMEN Ordering Facility: [facility] Address: [address] [place] [address] Performed By: #### 5 7021-8 #### [facility] CLIA [id number] [address] [place] [address] 30009 Immature granulocytes (Bld) [#/Vol] 10*3/uL Normal <0.10 [facility] Comment on above: Order Comment: Speci men Type: BLOOD SPECIMEN Ordering Facility: [facility] Address: [address] [place] [address] Performed By: #### 5 7021-8 #### [facility] CLIA [id number] [address] [place] [address] 52123 Immature granulocytes/100 WBC (Bld) 0.2 % Normal [facility] Comment on above: Order Comment: Speci men Type: BLOOD SPECIMEN Ordering Facility: [facility] Address: [address] [place] [address] Performed By: #### 5 7021-8 #### [facility] CLIA [id number] [address] [place] [address] 69005 Lymphocytes (Bld) [#/Vol] 1.57 10*3/uL Normal 1.00-4.00 [facility] Comment on above: Order Comment: Speci men Type: BLOOD SPECIMEN Ordering Facility: [facility] Address: [address] [place] [address] Performed By: #### 5 7021-8 #### [facility] CLIA [id number] [address] [place] [address] 80624 Lymphocytes/100 WBC (Bld) 31.2 % Normal [facility] Comment on above: Order Comment: Speci men Type: BLOOD SPECIMEN Ordering Facility: [facility] Address: [address] [place] [address] Performed By: #### 5 7021-8 #### [facility] CLIA [id number] [address] [place] [address] 79090 MCH (RBC) [Entitic mass] 32.2 pg Normal 26.0-34.0 [facility] Comment on above: Order Comment: Speci men Type: BLOOD SPECIMEN Ordering Facility: [facility] Address: [address] [place] [address] Performed By: #### 5 7021-8 #### [facility] CLIA [id number] [address] [place] [address] 45792 MCHC (RBC) [Mass/Vol] 34.1 g/dL Normal 30.5-36.0 [facility] Comment on above: Order Comment: Speci men Type: BLOOD SPECIMEN Ordering Facility: [facility] Address: [address] [place] [address] Performed By: #### 5 7021-8 #### [facility] CLIA [id number] [address] [place] [address] 45552 MCV (RBC) [Entitic vol] 94.6 fL Normal 80.0-100.0 [facility] Comment on above: Order Comment: Speci men Type: BLOOD SPECIMEN Ordering Facility: [facility] Address: [address] [place] [address] Performed By: #### 5 7021-8 #### [facility] CLIA [id number] [address] [place] [address] 82694 Monocytes (Bld) [#/Vol] 0.32 10*3/uL Normal <0.87 [facility] Comment on above: Order Comment: Speci men Type: BLOOD SPECIMEN Ordering Facility: [facility] Address: [address] [place] [address] Performed By: #### 5 7021-8 #### [facility] CLIA [id number] [address] [place] [address] 75354 Monocytes/100 WBC (Bld) 6.3 % Normal [facility] Comment on above: Order Comment: Speci men Type: BLOOD SPECIMEN Ordering Facility: [facility] Address: [address] [place] [address] Performed By: #### 5 7021-8 #### [facility] CLIA [id number] [address] [place] [address] 27134 Neutrophils (Bld) [#/Vol] 2.98 10*3/uL Normal 1.45-7.50 [facility] Comment on above: Order Comment: Speci men Type: BLOOD SPECIMEN Ordering Facility: [facility] Address: [address] [place] [address] Performed By: #### 5 7021-8 #### [facility] CLIA [id number] [address] [place] [address] 08347 Neutrophils/100 WBC (Bld) 59.1 % Normal [facility] Comment on above: Order Comment: Speci men Type: BLOOD SPECIMEN Ordering Facility: [facility] Address: [address] [place] [address] Performed By: #### 5 7021-8 #### [facility] CLIA [id number] [address] [place] [address] 47956 Nucleated RBC (Bld) [#/Vol] 10*3/uL Normal <0.01 [facility] Comment on above: Order Comment: Speci men Type: BLOOD SPECIMEN Ordering Facility: [facility] Address: [address] [place] [address] Performed By: #### 5 7021-8 #### [facility] CLIA [id number] [address] [place] [address] 14414 Nucleated RBC/100 WBC (Bld) [Ratio] 0.0 /100 WBC Normal [facility] Comment on above: Order Comment: Speci men Type: BLOOD SPECIMEN Ordering Facility: [facility] Address: [address] [place] [address] Performed By: #### 5 7021-8 #### [facility] CLIA [id number] [address] [place] [address] 49385 Platelet mean volume (Bld) [Entitic vol] 10.6 fL Normal 9.0-12.7 [facility] Comment on above: Order Comment: Speci men Type: BLOOD SPECIMEN Ordering Facility: [facility] Address: [address] [place] [address] Performed By: #### 5 7021-8 #### [facility] CLIA [id number] [address] [place] [address] 32121 Platelets (Bld) [#/Vol] 226 10*3/uL Normal 150-400 [facility] Comment on above: Order Comment: Speci men Type: BLOOD SPECIMEN Ordering Facility: [facility] Address: [address] [place] [address] Performed By: #### 5 7021-8 #### [facility] CLIA [id number] [address] [place] [address] RBC (Bld) [#/Vol] 3.91 10*6/uL Normal 3.90-5.20 [facility] Comment on above: Order Comment: Speci men Type: BLOOD SPECIMEN Ordering Facility: [facility] Address: [address] [place] [address] Performed By: #### 5 7021-8 #### [facility] CLIA [id number] [address] [place] [address] 02911 WBC (Bld) [#/Vol] 5.04 10*3/uL Normal 3.70-11.00 [facility] Comment on above: Order Comment: Speci men Type: BLOOD SPECIMEN Ordering Facility: [facility] Address: [address] [place] [address] Performed By: #### 5 7021-8 #### [facility] CLIA [id number] [address] [place] [address] 99757 Comprehensive metabolic 2000 panelon 07-26-2023 Albumin [Mass/Vol] 4.4 g/dL Normal 3.9-4.9 [facility] Comment on above: Order Comment: Speci men Type: BLOOD SPECIMEN Ordering Facility: [facility] Address: [address] [place] [address] Performed By: #### 2 4323-8 #### [facility] CLIA [id number] [address] [place] [address] 84890 ALP [Catalytic activity/Vol] 40 U/L Normal 34-123 [facility] Comment on above: Order Comment: Speci men Type: BLOOD SPECIMEN Ordering Facility: [facility] Address: [address] [place] [address] Performed By: #### 2 4323-8 #### [facility] CLIA [id number] [address] [place] [address] 82242 ALT [Catalytic activity/Vol] 5 U/L Low 7-38 [facility] Comment on above: Order Comment: Speci men Type: BLOOD SPECIMEN Ordering Facility: [facility] Address: [address] [place] [address] Performed By: #### 2 4323-8 #### [facility] CLIA [id number] [address] [place] [address] Anion gap [Moles/Vol] 8 mmol/L Low 9-18 [facility] Comment on above: Order Comment: Speci men Type: BLOOD SPECIMEN Ordering Facility: [facility] Address: [address] [place] [address] Performed By: #### 2 4323-8 #### [facility] CLIA [id number] [address] [place] [address] 33533 AST [Catalytic activity/Vol] 7 U/L Low 13-35 [facility] Comment on above: Order Comment: Speci men Type: BLOOD SPECIMEN Ordering Facility: [facility] Address: [address] [place] [address] Performed By: #### 2 4323-8 #### [facility] CLIA [id number] [address] [place] [address] 95383 Bilirubin [Mass/Vol] 0.6 mg/dL Normal 0.2-1.3 [facility] Comment on above: Order Comment: Speci men Type: BLOOD SPECIMEN Ordering Facility: [facility] Address: [address] [place] [address] Performed By: #### 2 4323-8 #### [facility] CLIA [id number] [address] [place] [address] 08629 Calcium [Mass/Vol] 9.5 mg/dL Normal 8.5-10.2 [facility] Comment on above: Order Comment: Speci men Type: BLOOD SPECIMEN Ordering Facility: [facility] Address: [address] [place] [address] Performed By: #### 2 4323-8 #### [facility] CLIA [id number] [address] [place] [address] 05665 Chloride [Moles/Vol] 105 mmol/L Normal 97-105 [facility] Comment on above: Order Comment: Speci men Type: BLOOD SPECIMEN Ordering Facility: [facility] Address: [address] [place] [address] Performed By: #### 2 4323-8 #### [facility] CLIA [id number] [address] [place] [address] 83363 CO2 [Moles/Vol] 27 mmol/L Normal 22-30 [facility] Comment on above: Order Comment: Speci men Type: BLOOD SPECIMEN Ordering Facility: [facility] Address: [address] [place] [address] Performed By: #### 2 4323-8 #### [facility] CLIA [id number] [address] [place] [address] 99579 Creatinine [Mass/Vol] 0.76 mg/dL Normal 0.58-0.96 [facility] Comment on above: Order Comment: Speci men Type: BLOOD SPECIMEN Ordering Facility: [facility] Address: [address] [place] [address] Performed By: #### 2 4323-8 #### [facility] CLIA [id number] [address] [place] [address] 65886 Creatinine and Glomerular filtration rate.predicted panel (S/P/Bld) 108 mL/min/1.73m??? Normal >=60 [facility] Comment on above: Order Comment: Speci men Type: BLOOD SPECIMEN Ordering Facility: [facility] Address: [address] [place] [address] Result Comment: Erma mated Glomerular Filtration Rate [...] GFR. Performed By: #### 2 4323-8 #### [facility] CLIA [id number] [address] [place] [address] 18179 Glucose [Mass/Vol] 93 mg/dL Normal 74-99 [facility] Comment on above: Order Comment: Speci men Type: BLOOD SPECIMEN Ordering Facility: [facility] Address: [address] [place] [address] Result Comment: The [place] [employer] (ADA) provides guidance for cutoff [...] Standards of Medical Care in Diabetes 2016, [place] [employer]. Diabetes Care. 2016.39(Suppl 1). Performed By: #### 2 4323-8 #### [facility] CLIA [id number] [address] [place] [address] 36129 Potassium [Moles/Vol] 4.2 mmol/L Normal 3.7-5.1 [facility] Comment on above: Order Comment: Speci men Type: BLOOD SPECIMEN Ordering Facility: [facility] Address: [address] [place] [address]12 Performed By: #### 2 4323-8 #### [facility] CLIA [id number] [address] [place] [address] 66249 Protein [Mass/Vol] 7.2 g/dL Normal 6.3-8.0 [facility] Comment on above: Order Comment: Speci men Type: BLOOD SPECIMEN Ordering Facility: [facility] Address: [address] [place] [address] Performed By: #### 2 4323-8 #### [facility] CLIA [id number] [address] [place] [address] 35705 Sodium [Moles/Vol] 140 mmol/L Normal 136-144 [facility] Comment on above: Order Comment: Speci men Type: BLOOD SPECIMEN Ordering Facility: [facility] Address: [address] [place] [address] Performed By: #### 2 4323-8 #### [facility] CLIA [id number] [address] [place] [address] 54486 Urea nitrogen [Mass/Vol] 11 mg/dL Normal 7-21 [facility] Comment on above: Order Comment: Speci men Type: BLOOD SPECIMEN Ordering Facility: [facility] Address: [address] [place] [address] Performed By: #### 2 4323-8 #### [facility] CLIA [id number] [address] [place] [address] HBV surface Ab Ql (S)on HBV surface Ab Qn (S) <8.00 Normal [facility] Comment on above: Order Comment: Speci men Type: BLOOD SPECIMEN Ordering Facility: [facility] Address: [address] [place] [address] Result Comment: <8 m IU/mL: No serological evidence of immunity to Hepatitis B Virus. >/= 8 to <12 mIU/mL: No serological evidence of immunity to Hepatitis B Virus. >/= 12 mIU/mL: Consistent with serological evidence of immunity to Hepatitis B Virus. Performed By: #### 2 2322-2 #### [facility] CLIA [id number] [address] [place] [address] [place] HBV surface Ab Ser Qlon HBV surface Ab Ql (S) Negative Normal [facility] Comment on above: Order Comment: Speci men Type: BLOOD SPECIMEN Ordering Facility: [facility] Address: [address] [place] [address] Result Comment: No s erological evidence of immunity to Hepatitis B Virus. Performed By: #### 2 2322-2 #### [facility] CLIA [id number] [address] [place] [address] [place] HbA1c (Bld)on 07-26-2023 Average glucose Estimated from glycated hemoglobin (Bld) [Mass/Vol] 94 mg/dL Normal [facility] Comment on above: Order Comment: Mary head Type: BLOOD SPECIMEN Ordering Facility: [facility] Address: [address] [place] [address] Result Comment: eAG: (Estimated average glucose) is a calculated value from HgbA1c and is sales representative advertising of the average blood glucose level in the last 2-3 month period. Performed By: #### 5 5454-3 #### [facility] CLIA [id number] [address] [place] [address] [place] HbA1c (Bld) [Mass fraction] 4.9 % Normal 4.3-5.6 [facility] Comment on above: Order Comment: Mary head Type: BLOOD SPECIMEN Ordering Facility: [facility] Address: [address] [place] [address] Result Comment: Amer ican Diabetes Association guidelines indicate that patients with HgbA1c in the range 5.7-6.4% are at increased risk for development of diabetes, and intervention by lifestyle modification may be beneficial. HgbA1c greater or equal to 6.5% is considered diagnostic of diabetes. Performed By: #### 5 5454-3 #### [facility] CLIA [id number] [address] [place] [address] [place] Lipid 1996 panelon 3 Cholesterol [Mass/Vol] 172 mg/dL Normal <200 [facility] Comment on above: Order Comment: Mary head Type: BLOOD SPECIMEN Ordering Facility: [facility] Address: [address] [place] [address] Result Comment: <200 mg/dL, Desirable 200-239 mg/dL, Borderline high >239 mg/dL, High Performed By: #### 2 4331-1 #### [facility] CLIA [id number] [address] [place] [address] [place] [facility] CLIA [id number] [address] [place] [address]71 Cholesterol in HDL [Mass/Vol] 58 mg/dL Normal >39 [facility] Comment on above: Order Comment: Speci men Type: BLOOD SPECIMEN Ordering Facility: [facility] Address: [address] [place] [address] Result Comment: 40-5 9 mg/dL, Acceptable >59 mg/dL, High: Negative risk factor for coronary heart disease <40 mg/dL, Low: Positive risk factor for coronary heart disease Performed By: #### 2 4331-1 #### [facility] CLIA [id number] [address] [facility] CLIA [id number] [address] [place] [address]36 Cholesterol in LDL [Mass/Vol] 103 mg/dL High <100 [facility] Comment on above: Order Comment: Speci men Type: BLOOD SPECIMEN Ordering Facility: [facility] Address: [address] [place] [address] Result Comment: <100 mg/dL, Optimal 100-129 mg/dL, Near optimal/above optimal 130-159 mg/dL, Borderline high 160-189 mg/dL, High >189 mg/dL, Very high Secondary prevention optimal LDL Cholesterol levels are recommended to be < 70 mg/dL Performed By: #### 2 4331-1 #### [facility] CLIA [id number] [address] [place] [address] LAB CLIA [id number] [address] [place] [address] Cholesterol in LDL/Cholesterol in HDL [Mass ratio] 1.78 {ratio} Normal <2.54 [facility] Comment on above: Order Comment: Micki men Type: BLOOD SPECIMEN Ordering Facility: [facility] Address: [address] [place] [address] Result Comment: Refe rence: 1. National Cholesterol Education Program ATP III Guideline At-A-Glance Quick Desk Reference: National Heart, Lung, and Blood [place]. National Institutes of Health. 2001: NIH Publication No. 01-3305. 2. An International Atherosclerosis Society position paper: global recommendations for the management of dyslipidemia: executive summary, Atherosclerosis. 2014: 232(2):410-413. Performed By: #### 2 4331-1 #### [facility] CLIA [id number] [address] [place] [id number] [facility] CLIA [id number] [address] [place] [address]9941 Cholesterol in VLDL [Mass/Vol] 11 mg/dL Normal <30 [facility] Comment on above: Order Comment: Speci men Type: BLOOD SPECIMEN Ordering Facility: [facility] Address: [address] [place] [address] Performed By: #### 2 4331-1 #### [facility] CLIA [id number] [address] [facility] CLIA [id number] [address] [place] [address] 14432 Cholesterol non HDL [Mass/Vol] 114 mg/dL Normal <130 [facility] Comment on above: Order Comment: Speci men Type: BLOOD SPECIMEN Ordering Facility: [facility] Address: [address] [place] [address] Result Comment: <130 mg/dL, Optimal 130-159 mg/dL, Near optimal/above optimal 160-189 mg/dL, Borderline high 190-219 mg/dL, High >219 mg/dL, Very high Secondary prevention optimal non HDL Cholesterol levels are recommended to be <100 mg/dL Performed By: #### 2 4331-1 #### [facility] CLIA [id number] [facility] [place] [id number] [facility] CLIA [id number] [address] [place] [address]49 Cholesterol.total/Choles terol in HDL [Mass ratio] 2.97 {ratio} Normal <5.10 [facility] Comment on above: Order Comment: Speci men Type: BLOOD SPECIMEN Ordering Facility: [facility] Address: [address] [place] [address] Performed By: #### 2 4331-1 #### [facility] CLIA [id number] [address] [facility] CLIA [id number] [address] [place] [id number] FASTING TIME 12 hrs Normal [facility] Comment on above: Order Comment: Speci men Type: BLOOD SPECIMEN Ordering Facility: [facility] Address: [address] [place] [address] Performed By: #### 2 4331-1 #### [facility] CLIA [id number] [address] [place] [address] LAB CLIA [id number] [address] [place] [address] Triglyceride [Mass/Vol] 53 mg/dL Normal <150 [facility] Comment on above: Order Comment: Speci men Type: BLOOD SPECIMEN Ordering Facility: [facility] Address: [address] [place] [address] Result Comment: <150 mg/dL, Normal 150-199 mg/dL, Borderline high 200-499 mg/dL, High >499 mg/dL, Very high Performed By: #### 2 4331-1 #### [facility] CLIA [id number] [address] [place] [address] LAB CLIA [id number] [address] [place], [place] [id number] Jemima 07-21-2023 CNOV Office Visit (INMAVN) CARYL ZAMARRIPA ([id number]) 1990 F Date Time Provider Department 07/21/23 4:20 PM BERENICE ZEPEDA During your visit today, we recorded the following information about you: Pulse Blood pressure Weight Height 60/minute 112/74 80.1 kg 1.612 m Last Period 07/09/23 Berenice Zepeda, BRETT.LAPPING MACHINE SET UP OPERATOR 07/22/2023 10:16 AM Signed Caryl Zamarripa is a 32 year old female here today for review of established medical problems as well as comprehensive physical examination. Obesity S/p gastric sleeve surgery in 03/2022 at [facility] in [place] Down about 70lb, has reached plateau Gym 4 days per week with cardio (treadmill, elliptical) Maybe not enough water Tries to focus on more protein, lower carbs Last 10 Encounter Wt Readings: Date: Wt: 07/21/2023 80.1 kg (176 lb 8 oz) 07/06/2022 81.6 kg (180 lb) 01/15/2022 104.3 kg (230 lb) CERTIFIED NURSE MIDWIFE in [facility] Implanted control HM needs: Hepatitis B Vaccine(1 of 3 - 3-dose series) Never done Depression Assessment Never done HPV Testing Never done PAST MEDICAL HISTORY Diagnosis Date GERD (gastroesophageal reflux disease) Prediabetes PAST SURGICAL HISTORY Procedure Laterality Date PT ED BARIATRIC AND METABOLIC gastric sleeve 03/2022 ALLERGIES Patient has no known allergies. MEDICATIONS Omeprazole Magnesium (ACID INSPECTOR TOOL, OMEPRAZOLE,) 20 mg cpDR Phentermine HCl 37.5 [...] No history of dysuria, frequency or incontinence CERTIFIED NURSE MIDWIFE: Negative for abnormal vaginal bleeding, abnormal vaginal [...] and symmetric. Sensation grossly intact. Breast/Pelvic: Per CERTIFIED NURSE MIDWIFE ASSESSMENT/PLAN: 1. Routine adult health maintenance - ICD9: V70.0, ICD10: Z00.00 (primary diagnosis) - Counseled on healthy diet and regular exercise - Calcium intake with supplements or by diet of 1000 mg/day for under 50, 0995-0872 mg/day for 50+ - Discussed need and benefit for weight loss. BMI 30.81 kg/(m2) - HGB A1C - COMP METABOLIC PANEL - LIPID PANEL BASIC - CBC + DIFF 2. IFG (impaired fasting glucose) - ICD9: 790.21, ICD10: (more content not included)... Normal [facility] Basophils Auto (Bld) [#/Vol] Ordered By: Reena Breaux on 10-11-2022 Basophils (Bld) [#/Vol] 0.0 10*3/uL 0.0-0.2 [facility] Basophils/100 WBC Auto (Bld) Ordered By: Reena Breaux on 10-11-2022 Basophils/100 WBC (Bld) 0.7 % . [facility] Body fluid albumin measureme nt (mass/volume)Ordered By: Reena Breaux on 10-11-2022 Albumin (Body fld) [Mass/Vol] 4.0 g/dL 3.2-5.[address] [facility] [address] biopsyOrdered By: Reena malhotra on 10-11-2022 Transferrin [Mass/Vol] 206 mg/dL 180-380 [facility] Complete Blood Count Auto Di ffon 10-11-2022 Basophils (Bld) [#/Vol] 0.0 10*3/uL Normal 0.0-0.2 [facility] Comment on above: Result Comment: PERF ORMED BY: [place] [address] PATHOLOGIST PARER AMANDA CALLE M.D. Performed By: #### P HOS, [id number], CMP, CBC, [id number], FE PRO, MG #### [facility] [address] [place] [address] #### VITB1 #### [facility] , Basophils/100 WBC (Bld) 0.7 % Normal . [facility] Comment on above: Performed By: #### P HOS, [id number], CMP, CBC, [id number], FE PRO, MG #### [facility] [address] [place] [address] #### VITB1 #### [facility] , Eosinophils (Bld) [#/Vol] 0.1 10*3/uL Normal 0.0-0.45 [facility] Comment on above: Performed By: #### P HOS, [id number], CMP, CBC, [id number], FE PRO, MG #### [facility] [address] [place] [address] #### VITB1 #### [facility] , Eosinophils/100 WBC (Bld) 1.7 % Normal . [facility] Comment on above: Performed By: #### P HOS, [id number], CMP, CBC, [id number], FE PRO, MG #### [facility] [address] [place] [address] #### VITB1 #### [facility] , Erythrocyte distribution width (RBC) [Ratio] 12.9 % Normal 11.9-15.3 [facility] Comment on above: Performed By: #### P HOS, [id number], CMP, CBC, [id number], FE PRO, MG #### [address] #### VITB1 #### [facility] , Hematocrit (Bld) [Volume fraction] 39.1 % Normal 34.0-46.4 [facility] Comment on above: Performed By: #### P HOS, [id number], CMP, CBC, [id number], FE PRO, MG #### [facility] [address] [place] [address] [place] #### VITB1 #### [facility] , Hemoglobin (Bld) [Mass/Vol] 13.1 g/dL Normal 11.8-15.4 [facility] Comment on above: Performed By: #### P HOS, [id number], CMP, CBC, [id number], FE PRO, MG #### [place] [address] [place] #### VITB1 #### [facility] , Lymphocytes (Bld) [#/Vol] 2.7 10*3/uL Normal 1.00-4.8 [facility] Comment on above: Performed By: #### P HOS, [id number], CMP, CBC, [id number], FE PRO, MG #### [address] #### VITB1 #### [facility] , Lymphocytes/100 WBC (Bld) 39.8 % Normal . [facility] Comment on above: Performed By: #### P HOS, [id number], CMP, CBC, [id number], FE PRO, MG #### [facility] [address] [place] [address] #### VITB1 #### [facility] , MCH (RBC) [Entitic mass] 31.9 pg Normal 24.7-34.3 [facility] Comment on above: Performed By: #### P HOS, [id number], CMP, CBC, [id number], FE PRO, MG #### [address] #### VITB1 #### [facility] , MCV (RBC) [Entitic vol] 95.3 fL Normal 80-100 [facility] Comment on above: Performed By: #### P HOS, [id number], CMP, CBC, [id number], FE PRO, MG #### [facility] [address] [place] [address] [place] #### VITB1 #### [facility] , Mean Corpuscular HGB Conc 33.5 g/dL Normal 32.0-35.0 [facility] Comment on above: Performed By: #### P HOS, [id number], CMP, CBC, [id number], FE PRO, MG #### [address] #### VITB1 #### [facility] , Monocytes (Bld) [#/Vol] 0.3 10*3/uL Normal 0.0-0.8 [facility] Comment on above: Performed By: #### P HOS, [id number], CMP, CBC, [id number], FE PRO, MG #### [facility] [address] [place] [address] #### VITB1 #### [facility] , Monocytes/100 WBC (Bld) 5.1 % Normal . [facility] Comment on above: Performed By: #### P HOS, [id number], CMP, CBC, [id number], FE PRO, MG #### [facility] [address] [place] [address] #### VITB1 #### [facility] , Neutrophils (Bld) [#/Vol] 3.6 10*3/uL Normal 1.8-7.7 [facility] Comment on above: Performed By: #### P HOS, [id number], CMP, CBC, [id number], FE PRO, MG #### [facility] [address] [place] [address] #### VITB1 #### [facility] , Neutrophils/100 WBC (Bld) 52.7 % Normal . [facility] Comment on above: Performed By: #### P HOS, [id number], CMP, CBC, [id number], FE PRO, MG #### [facility] [address] [place] [address] [place] #### VITB1 #### [facility] , NRBC% 0.0 /100{WBC} Normal 0-0.5 [facility] Comment on above: Performed By: #### P HOS, [id number], CMP, CBC, [id number], FE PRO, MG #### [facility] [address] [place] [address] #### VITB1 #### [facility] , Platelet mean volume (Bld) [Entitic vol] 9.8 fL Normal 6.3-10.7 [facility] Comment on above: Performed By: #### P HOS, [id number], CMP, CBC, [id number], FE PRO, MG #### [facility] [address] [place] [address] [place] #### VITB1 #### [facility] , Platelets (Bld) [#/Vol] 226 10*3/uL Normal 150-450 [facility] Comment on above: Performed By: #### P HOS, [id number], CMP, CBC, [id number], FE PRO, MG #### [facility] [address] [place] [address] [place] #### VITB1 #### [facility] , RBC (Bld) [#/Vol] 4.11 10*6/uL Normal 3.60-5.00 [facility] Comment on above: Performed By: #### P HOS, [id number], CMP, CBC, [id number], FE PRO, MG #### [facility] [address] [place] [address] #### VITB1 #### [facility] , WBC (Bld) [#/Vol] 6.8 10*3/uL Normal 3.8-11.6 [facility] Comment on above: Performed By: #### P HOS, [id number], CMP, CBC, [id number], FE PRO, MG #### [facility] [address] [place] [address] [place] #### VITB1 #### [facility] , Comprehensive Metabolic Pane nicole 10-11-2022 Albumin [Mass/Vol] 4.0 g/dL Normal 3.2-5.5 [facility] Comment on above: Performed By: #### P HOS, [id number], CMP, CBC, [id number], FE PRO, MG #### [facility] [address] [place] [address] [place] #### VITB1 #### [facility] , Albumin/Globulin [Mass ratio] 1.4 {ratio} Normal [facility] Comment on above: Performed By: #### P HOS, [id number], CMP, CBC, [id number], FE PRO, MG #### [facility] [address] [place] [address] #### VITB1 #### [facility] , ALP [Catalytic activity/Vol] 36 U/L Normal 32-92 [facility] Comment on above: Performed By: #### P HOS, [id number], CMP, CBC, [id number], FE PRO, MG #### [facility] [address] [place] [address] #### VITB1 #### [facility] , ALT [Catalytic activity/Vol] 12 U/L Normal 10-60 [facility] Comment on above: Performed By: #### P HOS, [id number], CMP, CBC, [id number], FE PRO, MG #### [facility] [address] [place] [address] #### VITB1 #### [facility] , Anion gap [Moles/Vol] 11.6 mmol/L Normal 6.0-15.0 [facility] Comment on above: Performed By: #### P HOS, [id number], CMP, CBC, [id number], FE PRO, MG #### [facility] [address] [place] [address] [place] #### VITB1 #### [facility] , AST [Catalytic activity/Vol] 11 U/L Normal 10-42 [facility] Comment on above: Performed By: #### P HOS, [id number], CMP, CBC, [id number], FE PRO, MG #### [facility] [address] [place] [address] [place] #### VITB1 #### [facility] , Bilirubin [Mass/Vol] 0.3 mg/dL Normal 0.3-1.2 [facility] Comment on above: Performed By: #### P HOS, [id number], CMP, CBC, [id number], FE PRO, MG #### [facility] [address] [place] [address] [place] #### VITB1 #### [facility] , Calcium [Mass/Vol] 9.3 mg/dL Normal 8.2-10.2 [facility] Comment on above: Performed By: #### P HOS, [id number], CMP, CBC, [id number], FE PRO, MG #### [facility] [address] [place] [address] #### VITB1 #### [facility] , Chloride [Moles/Vol] 103 mmol/L Normal 95-114 [facility] Comment on above: Performed By: #### P HOS, [id number], CMP, CBC, [id number], FE PRO, MG #### [facility] [address] [place] [address] #### VITB1 #### [facility] , CO2 [Moles/Vol] 26.4 mmol/L Normal 22.0-30.0 [facility] Comment on above: Performed By: #### P HOS, [id number], CMP, CBC, [id number], FE PRO, MG #### [facility] [address] [place] [address] [place] #### VITB1 #### [facility] , Creatinine [Mass/Vol] 0.70 mg/dL Normal 0.44-1.03 [facility] Comment on above: Performed By: #### P HOS, [id number], CMP, CBC, [id number], FE PRO, MG #### [facility] [address] [place] [address] [place] #### VITB1 #### [facility] , Estimated GFR ( Christiano > 60 Normal [facility] Comment on above: Result Comment: GFR estimated reference range: According to KDOQI guidelines, <60 ml/min/1.73m2 is sufficient to diagnose a patient with chronic kidney disease. Performed By: #### P HOS, [id number], CMP, CBC, [id number], FE PRO, MG #### [address] #### VITB1 #### [facility] , Estimated GFR (Non- Am > 60 [facility] Comment on above: Performed By: #### P HOS, [id number], CMP, CBC, [id number], FE PRO, MG #### [address] #### VITB1 #### [facility] , Globulin (S) [Mass/Vol] 2.8 g/dL Normal [facility] Comment on above: Performed By: #### P HOS, [id number], CMP, CBC, [id number], FE PRO, MG #### [address] #### VITB1 #### [facility] , Glucose [Mass/Vol] 85 mg/dL Normal 70-100 [facility] Comment on above: Result Comment: [place] Glucose Reference Range is dependent on time and content of last meal. Glucose of more than 200 mg/dL in a nonstressed, ambulatory subject supports the diagnosis of Diabetes Mellitus. ADA recommended reference range Performed By: #### P HOS, [id number], CMP, CBC, [id number], FE PRO, MG #### [address] #### VITB1 #### [facility] , Potassium [Moles/Vol] 4.0 mmol/L Normal 3.5-5.1 [facility] Comment on above: Performed By: #### P HOS, [id number], CMP, CBC, [id number], FE PRO, MG #### [address] #### VITB1 #### [facility] , Protein [Mass/Vol] 6.8 g/dL Normal 6.1-7.9 [facility] Comment on above: Performed By: #### P HOS, [id number], CMP, CBC, [id number], FE PRO, MG #### [facility] [address] [place] [address] [place] #### VITB1 #### [facility] , Sodium [Moles/Vol] 137 mmol/L Normal 136-146 [facility] Comment on above: Performed By: #### P HOS, [id number], CMP, CBC, [id number], FE PRO, MG #### [facility] [address] [place] [address] #### VITB1 #### [facility] , Urea nitrogen [Mass/Vol] 11 mg/dL Normal 9-23 [facility] Comment on above: Performed By: #### P HOS, [id number], CMP, CBC, [id number], FE PRO, MG #### [facility] [address] [place] [address] [place] #### VITB1 #### [facility] , Creatinine and Glomerular fi ltration rate.predicted panel (S/P/Bld)Ordered By: Reena Breaux on 10-11-2022 Creatinine [Mass/Vol] 0.70 mg/dL 0.44-1.03 [facility] Eosinophils Auto (Bld) [#/Vo l]Ordered By: Reena Breaux on 10-11-2022 Eosinophils (Bld) [#/Vol] 0.1 10*3/uL 0.0-0.45 [facility] Eosinophils/100 WBC Auto (Bl d)Ordered By: Reena Breaux on 10-11-2022 Eosinophils/100 WBC (Bld) 1.7 % . [facility] Erythrocyte distribution wid th Auto (RBC) [Ratio]Ordered By: Reena Breaux on 10-11-2022 Erythrocyte distribution width (RBC) [Ratio] 12.9 % 11.9-15.3 [facility] Estimated glomerular filtrat ion rate (GFR) non- AmericanOrdered By: Reena Breaux on 10-11-2022 GFR/1.73 sq M.predicted among non-blacks MDRD (S/P/Bld) [Vol rate/Area] > 60 mL/Min [facility] FE PROon 10-11-2022 % Iron Saturation 24.0 % Normal 20-50 [facility] Comment on above: Performed By: #### P HOS, [id number], CMP, CBC, [id number], FE PRO, MG #### [facility] [address] [place] [address] [place] #### VITB1 #### [facility] , Ferritin [Mass/Vol] 29.2 ng/mL Normal 11-306.8 [facility] Comment on above: Performed By: #### P HOS, [id number], CMP, CBC, [id number], FE PRO, MG #### [facility] [address] [place] [address] [place] #### VITB1 #### [facility] , Iron [Mass/Vol] 69 ug/dL Normal 40-150 [facility] Comment on above: Performed By: #### P HOS, [id number], CMP, CBC, [id number], FE PRO, MG #### [facility] [address] [place] [address] [place] #### VITB1 #### [facility] , Total Iron Binding Capacity 288 ug/dL Normal 255-450 [facility] Comment on above: Performed By: #### P HOS, [id number], CMP, CBC, [id number], FE PRO, MG #### [facility] [address] [place] [address] [place] #### VITB1 #### [facility] , Transferrin [Mass/Vol] 206 mg/dL Normal 180-380 [facility] Comment on above: Performed By: #### P HOS, [id number], CMP, CBC, [id number], FE PRO, MG #### [facility] [address] #### VITB1 #### [facility] , Ferritin [Mass/volume] in Se rum or PlasmaOrdered By: Reena Breaux on 10-11-2022 Ferritin [Mass/Vol] 29.2 ng/mL 11-306.8 [facility] Folate [Mass/volume] in Seru m or PlasmaOrdered By: Reena Breaux on 10-11-2022 Folate [Mass/Vol] 22.2 ng/mL >5.9 [facility] Comment on above: Folate reference ran ge: >5.9 ng/mlThe WHO technical consultation on folate and vitamin [id number] has determined that folate concentrations lessthan 4 ng/ml are considered deficient. Globulin Calc (S) [Mass/Vol] Ordered By: Reena Breaux on 10-11-2022 Globulin (S) [Mass/Vol] 2.8 g/dL [facility] Hematocrit Auto (Bld) [Volum e fraction]Ordered By: Reena Breaux on 10-11-2022 Hematocrit (Bld) [Volume fraction] 39.1 % 34.0-46.4 [facility] Hemoglobin [Mass/volume] in BloodOrdered By: Reena Breaux on 10-11-2022 Hemoglobin (Bld) [Mass/Vol] 13.1 g/dL 11.8-15.4 [facility] Iron [Mass/volume] in Serum or PlasmaOrdered By: Reena Breaux on 10-11-2022 Iron [Mass/Vol] 69 ug/dL 40-150 [facility] Iron binding capacity [Mass/ volume] in Serum or PlasmaOrdered By: Reena Breaux on 10-11-2022 Iron binding capacity [Mass/Vol] 288 ug/dL 255-450 [facility] [facility] Iron saturation [Mass Fracti on] in Serum or PlasmaOrdered By: Reena Breaux on 10-11-2022 Iron saturation [Mass fraction] 24.0 % 20-50 [facility] Laboratory - Chemistry and C hemistry - challengeOrdered By: Reena Breaux on 10-11-2022 Cobalamin (Vitamin B12) [Mass/Vol] 1437 pg/mL 180-914 [facility] Magnesium [Mass/Vol] 2.1 mg/dL 1.6-2.6 [facility] Leukocytes [#/volume] correc jakob for nucleated erythrocytes in Blood by Automated counOrdered By: Reena Breaux on 10-11-2022 WBC corrected for nucl RBC Auto (Bld) [#/Vol] 6.8 10*3/uL 3.8-11.6 [facility] Lymphocytes Auto (Bld) [#/Vo l]Ordered By: Reena Breaux on 10-11-2022 Lymphocytes (Bld) [#/Vol] 2.7 10*3/uL 1.00-4.8 [facility] Lymphocytes/100 WBC Auto (Bl d)Ordered By: Reena Breaux on 10-11-2022 Lymphocytes/100 WBC (Bld) 39.8 % . [facility] MCH Auto (RBC) [Entitic mass ]Ordered By: Reena Breaux on 10-11-2022 MCH (RBC) [Entitic mass] 31.9 pg 24.7-34.3 [facility] MCHC Auto (RBC) [Mass/Vol]Or dered By: Reena Breaux on 10-11-2022 MCHC (RBC) [Mass/Vol] 33.5 g/dL 32.0-35.0 [facility] MCV Auto (RBC) [Entitic vol] Ordered By: Reena Breaux on 10-11-2022 MCV (RBC) [Entitic vol] 95.3 fL 80-100 [facility] Magnesiumon 10-11-2022 Magnesium [Mass/Vol] 2.1 mg/dL Normal 1.6-2.6 [facility] Comment on above: Performed By: #### P HOS, [id number], CMP, CBC, [id number], FE PRO, MG #### [facility] [address] #### VITB1 #### [facility] , Monocytes Auto (Bld) [#/Vol] Ordered By: Reena Breaux on 10-11-2022 Monocytes (Bld) [#/Vol] 0.3 10*3/uL 0.0-0.8 [facility] Monocytes/100 WBC Auto (Bld) Ordered By: Reena Breaux on 10-11-2022 Monocytes/100 WBC (Bld) 5.1 % . [facility] Neutrophils Auto (Bld) [#/Vo l]Ordered By: Reena Breaux on 10-11-2022 Neutrophils (Bld) [#/Vol] 3.6 10*3/uL 1.8-7.7 [facility] Neutrophils/100 WBC Auto (Bl d)Ordered By: Reena Breaux on 10-11-2022 Neutrophils/100 WBC (Bld) 52.7 % . [facility] No Panel InformationOrdered By: Reena Breaux on 10-11-2022 25-Hydroxy Vitamin D Total 33.9 ng/mL 30-100 [facility] Comment on above: VITAMIN D STATUS 25( OH)VITAMIN D RANGE (ng/mL) Deficient <20 Insufficient 20 to <30Sufficient 30 to 100Reference: Kofi MF,Mauricio NC, Mayank CUELLAR, et al. Evaluation,treatment, and prevention of vitamin D deficiency; an Endocrine Society clinical practice guideline. JCEM. 2010; 96(7):1911-30. Estimated GFR () > 60 mL/Min [facility] Comment on above: GFR estimated refere nce range: According to KDOQI guidelines, <60 ml/min/1.73m2 is sufficient to diagnose a patient with chronic kidney disease. Pharmacy Creatinine Clearance (Chem N/A [facility] Nucleated erythrocytes [Pres ence] in Blood by Automated countOrdered By: Reena Breaux on 10-11-2022 Nucleated RBC Auto Ql (Bld) 0.0 /100{WBC} 0-0.5 [facility] Phosphate [Mass/volume] in S negro or PlasmaOrdered By: Reena Breaux on 10-11-2022 Phosphate [Mass/Vol] 3.9 mg/dL 2.5-4.6 [facility] Phosphoruson 10-11-2022 Phosphate [Mass/Vol] 3.9 mg/dL Normal 2.5-4.6 [facility] Comment on above: Performed By: #### P HOS, [id number], CMP, CBC, [id number], FE PRO, MG #### [facility] [address] [place] [address] [place] #### VITB1 #### [facility] , Platelet mean volume Auto (B ld) [Entitic vol]Ordered By: Reena Breaux on 10-11-2022 Platelet mean volume (Bld) [Entitic vol] 9.8 fL 6.3-10.7 [facility] Platelets Auto (Bld) [#/Vol] Ordered By: Reena Breaux on 10-11-2022 Platelets (Bld) [#/Vol] 226 10*3/uL 150-450 [facility] Protein [Mass/volume] in Ser um or PlasmaOrdered By: Reena Breaux on 10-11-2022 Protein [Mass/Vol] 6.8 g/dL 6.1-7.9 [facility] RBC Auto (Bld) [#/Vol]Ordere d By: Reena Breaux on 10-11-2022 RBC (Bld) [#/Vol] 4.11 10*6/uL 3.60-5.00 [facility] Serum or plasma alanine doss otransferase measurement without P-5'-P (enzymatic activiOrdered By: Reena Breaux on 10-11-2022 ALT No additional P-5'-P [Catalytic activity/Vol] 12 U/L 10-60 [facility] Serum or plasma albumin/glob ulin mass ratioOrdered By: Reena Breaux on 10-11-2022 Albumin/Globulin [Mass ratio] 1.4 {ratio} [facility] Serum or plasma alkaline denis sphatase measurement (enzymatic activity/volume)Ordered By: Reena Breaux on 10-11-2022 ALP [Catalytic activity/Vol] 36 U/L 32-92 [facility] Serum or plasma anion gap de terminationOrdered By: Reena Breaux on 10-11-2022 Anion gap [Moles/Vol] 11.6 mmol/L 6.0-15.0 [facility] Serum or plasma aspartate am inotransferase measurement (enzymatic activity/volume)Ordered By: eRena Breaux on 10-11-2022 AST [Catalytic activity/Vol] 11 U/L 10-42 [facility] Serum or plasma calcium gloria urement (mass/volume)Ordered By: Reena Breaux on 10-11-2022 Calcium [Mass/Vol] 9.3 mg/dL 8.2-10.2 [facility] Serum or plasma chloride gina surement (moles/volume)Ordered By: Reena Breaux on 10-11-2022 Chloride [Moles/Vol] 103 mmol/L 95-114 [facility] Serum or plasma glucose gloria urement (mass/volume)Ordered By: Reena Breaux on 10-11-2022 Glucose [Mass/Vol] 85 mg/dL 70-100 [facility] Comment on above: ADA recommended refe rence rangeRandom Glucose Reference Range is dependent on time and content of last meal. Glucose of more than 200 mg/dL in a nonstressed, ambulatory subject supports the diagnosis of Diabetes Mellitus. Serum or plasma potassium me asurement (moles/volume)Ordered By: Reena Breaux on 10-11-2022 Potassium [Moles/Vol] 4.0 mmol/L 3.5-5.1 [facility] Serum or plasma sodium measu rement (moles/volume)Ordered By: Reena Breaux on 10-11-2022 Sodium [Moles/Vol] 137 mmol/L 136-146 [facility] Serum or plasma total biliru bin measurement (mass/volume)Ordered By: Reena Breaux on 10-11-2022 Bilirubin [Mass/Vol] 0.3 mg/dL 0.3-1.2 [facility] Serum or plasma total carbon dioxide measurement (moles/volume)Ordered By: Reena Breaux on 10-11-2022 CO2 [Moles/Vol] 26.4 mmol/L 22.0-30.0 [facility] Serum or plasma urea nitroge n measurement (mass/volume)Ordered By: Reena Breaux on 10-11-2022 Urea nitrogen [Mass/Vol] 11 mg/dL 9-23 [facility] Vit. B12/Folate Profileon Cobalamin (Vitamin B12) [Mass/Vol] 1437 pg/mL High 180-914 [facility] Comment on above: Performed By: #### P HOS, [id number], CMP, CBC, [id number], FE PRO, MG #### [facility] [address] [place] [address] #### VITB1 #### [facility] , Folate 22.2 ng/mL Normal >5.9 [facility] Comment on above: Result Comment: Tara te reference range: >5.9 ng/ml The WHO technical consultation on folate and vitamin b12 deficiencies has determined that folate concentrations less than 4 ng/ml are considered deficient. Performed By: #### P HOS, [id number], CMP, CBC, [id number], FE PRO, MG #### [facility] [address] [place] [address] [place] #### VITB1 #### [facility] , Vitamin B1 (Thiamine) Bloodo n 10-11-2022 Vitamin B1 (Thiamine) Blood 153.8 Normal 66.5-200.0 [facility] Comment on above: Result Comment: This test was developed and its performance characteristics determined by [facility]. It has not been cleared or approved by the Food and Drug Administration. Performed at: [address] [id number] Shoulder Boner: Chary Soler MD, Phone: [phone] PERFORMED BY: [place] [address] PATHOLOGIST PARER AMANDA CALLE M.D. Performed By: #### P HOS, [id number], CMP, CBC, [id number], FE PRO, MG #### [facility] [address] [place] [address] [place] #### VITB1 #### [facility] , Vitamin D 25 Hydroxy Totalon 10-11-2022 Vitamin D 25 Hydroxy Total 33.9 ng/mL Normal 30-100 [facility] Comment on above: Result Comment: JONAH MIN D STATUS 25(OH)VITAMIN D RANGE (ng/mL) Deficient <20 Insufficient 20 to <30 Sufficient 30 to 100 Reference: Kofi MF,Mauricio MUÑOZ, Mayank CUELLAR, et al. Evaluation,treatment, and prevention of vitamin D deficiency; an Endocrine Society clinical practice guideline. JCEM. 2010; 96(7):1911-30. PERFORMED BY: [place] [address] PATHOLOGIST PARER AMANDA CALLE M.D. Performed By: #### P HOS, [id number], CMP, CBC, [id number], FE PRO, MG #### [facility] [address] [place] [address] #### VITB1 #### [facility] , WBC Auto (Bld) [#/Vol]Ordere d By: Reena Breaux on 10-11-2022 WBC (Bld) [#/Vol] 6.8 10*3/uL 3.8-11.6 [facility] Complete Blood Count Auto Di ffon 06-10-2022 Basophils (Bld) [#/Vol] 0.0 10*3/uL Normal 0.0-0.2 [facility] Comment on above: Order Comment: NOT F ASTING. JKW Result Comment: PERF ORMED BY: [place] [address] PATHOLOGIST PARER AMANDA CALLE M.D. Performed By: #### V ITB1 #### [facility] , #### [id number], CMP, MG, FE PRO, PHOS, [id number], CBC #### [facility] [address] [place] [address] Basophils/100 WBC (Bld) 0.7 % Normal . [facility] Comment on above: Order Comment: NOT F ASTING. JKW Performed By: #### V ITB1 #### [facility] , #### [id number], CMP, MG, FE PRO, PHOS, [id number], CBC #### [address] Eosinophils (Bld) [#/Vol] 0.2 10*3/uL Normal 0.0-0.45 [facility] Comment on above: Order Comment: NOT F ASTING. JKW Performed By: #### V ITB1 #### [facility] , #### [id number], CMP, MG, FE PRO, PHOS, [id number], CBC #### [address] Eosinophils/100 WBC (Bld) 2.6 % Normal . [facility] Comment on above: Order Comment: NOT F ASTING. JKW Performed By: #### V ITB1 #### [facility] , #### [id number], CMP, MG, FE PRO, PHOS, [id number], CBC #### [address] Erythrocyte distribution width (RBC) [Ratio] 13.9 % Normal 11.9-15.3 [facility] Comment on above: Order Comment: NOT F ASTING. JKW Performed By: #### V ITB1 #### [facility] , #### [id number], CMP, MG, FE PRO, PHOS, [id number], CBC #### [address] Hematocrit (Bld) [Volume fraction] 39.1 % Normal 34.0-46.4 [facility] Comment on above: Order Comment: NOT F ASTING. JKW Performed By: #### V ITB1 #### [facility] , #### [id number], CMP, MG, FE PRO, PHOS, [id number], CBC #### [address] Hemoglobin (Bld) [Mass/Vol] 12.8 g/dL Normal 11.8-15.4 [facility] Comment on above: Order Comment: NOT F ASTING. JKW Performed By: #### V ITB1 #### [facility] , #### [id number], CMP, MG, FE PRO, PHOS, [id number], CBC #### [facility] [address] Lymphocytes (Bld) [#/Vol] 1.5 10*3/uL Normal 1.00-4.8 [facility] Comment on above: Order Comment: NOT F ASTING. JKW Performed By: #### V ITB1 #### [facility] , #### [id number], CMP, MG, FE PRO, PHOS, [id number], CBC #### [address] Lymphocytes/100 WBC (Bld) 24.6 % Normal . [facility] Comment on above: Order Comment: NOT F ASTING. JKW Performed By: #### V ITB1 #### [facility] , #### [id number], CMP, MG, FE PRO, PHOS, [id number], CBC #### [facility] [address] [place] [address] MCH (RBC) [Entitic mass] 31.8 pg Normal 24.7-34.3 [facility] Comment on above: Order Comment: NOT F ASTING. JKW Performed By: #### V ITB1 #### [facility] , #### [id number], CMP, MG, FE PRO, PHOS, [id number], CBC #### [facility] [address] [place] [address] [place] MCV (RBC) [Entitic vol] 97.2 fL Normal 80-100 [facility] Comment on above: Order Comment: NOT F ASTING. JKW Performed By: #### V ITB1 #### [facility] , #### [id number], CMP, MG, FE PRO, PHOS, [id number], CBC #### [address] Mean Corpuscular HGB Conc 32.7 g/dL Normal 32.0-35.0 [facility] Comment on above: Order Comment: NOT F ASTING. JKW Performed By: #### V ITB1 #### [facility] , #### [id number], CMP, MG, FE PRO, PHOS, [id number], CBC #### [address] Monocytes (Bld) [#/Vol] 0.4 10*3/uL Normal 0.0-0.8 [facility] Comment on above: Order Comment: NOT F ASTING. JKW Performed By: #### V ITB1 #### [facility] , #### [id number], CMP, MG, FE PRO, PHOS, [id number], CBC #### [address] Monocytes/100 WBC (Bld) 7.3 % Normal . [facility] Comment on above: Order Comment: NOT F ASTING. JKW Performed By: #### V ITB1 #### [facility] , #### [id number], CMP, MG, FE PRO, PHOS, [id number], CBC #### [address] Neutrophils (Bld) [#/Vol] 3.8 10*3/uL Normal 1.8-7.7 [facility] Comment on above: Order Comment: NOT F ASTING. JKW Performed By: #### V ITB1 #### [facility] , #### [id number], CMP, MG, FE PRO, PHOS, [id number], CBC #### [place] [address] [place] Neutrophils/100 WBC (Bld) 64.8 % Normal . [facility] Comment on above: Order Comment: NOT F ASTING. JKW Performed By: #### V ITB1 #### [facility] , #### [id number], CMP, MG, FE PRO, PHOS, [id number], CBC #### [facility] [address] Nucleated RBC/100 WBC (Bld) [Ratio] 0.1 % Normal 0-0.5 [facility] Comment on above: Order Comment: NOT F ASTING. JKW Performed By: #### V ITB1 #### [facility] , #### [id number], CMP, MG, FE PRO, PHOS, [id number], CBC #### [address] Platelet mean volume (Bld) [Entitic vol] 10.6 fL Normal 6.3-10.7 [facility] Comment on above: Order Comment: NOT F ASTING. JKW Performed By: #### V ITB1 #### [facility] , #### [id number], CMP, MG, FE PRO, PHOS, [id number], CBC #### [address] Platelets (Bld) [#/Vol] 237 10*3/uL Normal 150-450 [facility] Comment on above: Order Comment: NOT F ASTING. JKW Performed By: #### V ITB1 #### [facility] , #### [id number], CMP, MG, FE PRO, PHOS, [id number], CBC #### [facility] [address] [place] [address] [place] RBC (Bld) [#/Vol] 4.02 10*6/uL Normal 3.60-5.00 [facility] Comment on above: Order Comment: NOT F ASTING. JKW Performed By: #### V ITB1 #### [facility] , #### [id number], CMP, MG, FE PRO, PHOS, [id number], CBC #### [facility] [address] WBC (Bld) [#/Vol] 5.9 10*3/uL Normal 4.5-11.0 [facility] Comment on above: Order Comment: NOT F ASTING. JKW Performed By: #### V ITB1 #### [facility] , #### [id number], CMP, MG, FE PRO, PHOS, [id number], CBC #### [address] Comprehensive Metabolic Pane nicole 06-10-2022 Albumin [Mass/Vol] 3.9 g/dL Normal 3.2-5.5 [facility] Comment on above: Order Comment: NOT F ASTING. JKW Performed By: #### V ITB1 #### [facility] , #### [id number], CMP, MG, FE PRO, PHOS, [id number], CBC #### [address] Albumin/Globulin [Mass ratio] 1.4 {ratio} Normal [facility] Comment on above: Order Comment: NOT F ASTING. JKW Performed By: #### V ITB1 #### [facility] , #### [id number], CMP, MG, FE PRO, PHOS, [id number], CBC #### [facility] [address] ALP [Catalytic activity/Vol] 43 U/L Normal 32-92 [facility] Comment on above: Order Comment: NOT F ASTING. JKW Performed By: #### V ITB1 #### [facility] , #### [id number], CMP, MG, FE PRO, PHOS, [id number], CBC #### [address] ALT [Catalytic activity/Vol] 12 U/L Normal 10-60 [facility] Comment on above: Order Comment: NOT F ASTING. JKW Performed By: #### V ITB1 #### [facility] , #### [id number], CMP, MG, FE PRO, PHOS, [id number], CBC #### [address] Anion gap [Moles/Vol] 11.0 mmol/L Normal 6.0-15.0 [facility] Comment on above: Order Comment: NOT F ASTING. JKW Performed By: #### V ITB1 #### [facility] , #### [id number], CMP, MG, FE PRO, PHOS, [id number], CBC #### [address] AST [Catalytic activity/Vol] 10 U/L Normal 10-42 [facility] Comment on above: Order Comment: NOT F ASTING. JKW Performed By: #### V ITB1 #### [facility] , #### [id number], CMP, MG, FE PRO, PHOS, [id number], CBC #### [address] Bilirubin [Mass/Vol] 0.7 mg/dL Normal 0.3-1.2 [facility] Comment on above: Order Comment: NOT F ASTING. JKW Performed By: #### V ITB1 #### [facility] , #### [id number], CMP, MG, FE PRO, PHOS, [id number], CBC #### [address] Calcium [Mass/Vol] 9.8 mg/dL Normal 8.2-10.2 [facility] Comment on above: Order Comment: NOT F ASTING. JKW Performed By: #### V ITB1 #### [facility] , #### [id number], CMP, MG, FE PRO, PHOS, [id number], CBC #### [facility] [address] Chloride [Moles/Vol] 104 mmol/L Normal 95-114 [facility] Comment on above: Order Comment: NOT F ASTING. JKW Performed By: #### V ITB1 #### [facility] , #### [id number], CMP, MG, FE PRO, PHOS, [id number], CBC #### [facility] [address] CO2 [Moles/Vol] 25.3 mmol/L Normal 22.0-30.0 [facility] Comment on above: Order Comment: NOT F ASTING. JKW Performed By: #### V ITB1 #### [facility] , #### [id number], CMP, MG, FE PRO, PHOS, [id number], CBC #### [facility] [address] [place] [address] Creatinine [Mass/Vol] 0.56 mg/dL Normal 0.44-1.03 [facility] Comment on above: Order Comment: NOT F ASTING. JKW Performed By: #### V ITB1 #### [facility] , #### [id number], CMP, MG, FE PRO, PHOS, [id number], CBC #### [facility] [address] Estimated GFR ( Christiano > 60 Normal [facility] Comment on above: Order Comment: NOT F ASTING. JKW Result Comment: GFR estimated reference range: According to KDOQI guidelines, <60 ml/min/1.73m2 is sufficient to diagnose a patient with chronic kidney disease. Performed By: #### V ITB1 #### [facility] , #### [id number], CMP, MG, FE PRO, PHOS, [id number], CBC #### [address] Estimated GFR (Non- Am > 60 Normal [facility] Comment on above: Order Comment: NOT F ASTING. JKW Performed By: #### V ITB1 #### [facility] , #### [id number], CMP, MG, FE PRO, PHOS, [id number], CBC #### [address] Globulin (S) [Mass/Vol] 2.8 g/dL Normal [facility] Comment on above: Order Comment: NOT F ASTING. JKW Performed By: #### V ITB1 #### [facility] , #### [id number], CMP, MG, FE PRO, PHOS, [id number], CBC #### [address] Glucose [Mass/Vol] 95 mg/dL Normal 70-100 [facility] Comment on above: Order Comment: NOT F ASTING. JKW Result Comment: [facility] Glucose Reference Range is dependent on time and content of last meal. Glucose of more than 200 mg/dL in a nonstressed, ambulatory subject supports the diagnosis of Diabetes Mellitus. ADA recommended reference range Performed By: #### V ITB1 #### [facility] , #### [id number], CMP, MG, FE PRO, PHOS, [id number], CBC #### [facility] [address] [place] [address] Potassium [Moles/Vol] 4.3 mmol/L Normal 3.5-5.1 [facility] Comment on above: Order Comment: NOT F ASTING. JKW Performed By: #### V ITB1 #### [facility] , #### [id number], CMP, MG, FE PRO, PHOS, [id number], CBC #### [facility] [address] [place] [address] Protein [Mass/Vol] 6.7 g/dL Normal 6.1-7.9 [facility] Comment on above: Order Comment: NOT F ASTING. JKW Performed By: #### V ITB1 #### [facility] , #### [id number], CMP, MG, FE PRO, PHOS, [id number], CBC #### [address] Sodium [Moles/Vol] 136 mmol/L Normal 136-146 [facility] Comment on above: Order Comment: NOT F ASTING. JKW Performed By: #### V ITB1 #### [facility] , #### [id number], CMP, MG, FE PRO, PHOS, [id number], CBC #### [address] Urea nitrogen [Mass/Vol] 7 mg/dL Low 9-23 [facility] Comment on above: Order Comment: NOT F ASTING. JKW Performed By: #### V ITB1 #### [facility] , #### [id number], CMP, MG, FE PRO, PHOS, [id number], CBC #### [address] FE PROon 10-20-2022 % Iron Saturation 19.0 % Low 20-50 [facility] Comment on above: Order Comment: NOT F ASTING. JKW Performed By: #### P HOS, [id number], CMP, CBC, [id number], FE PRO, MG #### [facility] [address] [place] [address] [place] #### VITB1 #### [facility] , Ferritin [Mass/Vol] 46.7 ng/mL Normal 11-306.8 [facility] Comment on above: Order Comment: NOT F ASTING. JKW Performed By: #### P HOS, [id number], CMP, CBC, [id number], FE PRO, MG #### [facility] [address] [place] [address] [place] #### VITB1 #### [facility] , Iron [Mass/Vol] 50 ug/dL Normal 40-150 [facility] Comment on above: Order Comment: NOT F ASTING. JKW Performed By: #### P HOS, [id number], CMP, CBC, [id number], FE PRO, MG #### [facility] [address] [place] [address] #### VITB1 #### [facility] , Total Iron Binding Capacity 260 ug/dL Normal 255-450 [facility] Comment on above: Order Comment: NOT F ASTING. JKW Performed By: #### P HOS, [id number], CMP, CBC, [id number], FE PRO, MG #### [facility] [address] [place] [address] #### VITB1 #### [facility] , Transferrin [Mass/Vol] 186 mg/dL Normal 180-380 [facility] Comment on above: Order Comment: NOT F ASTING. JKW Performed By: #### P HOS, [id number], CMP, CBC, [id number], FE PRO, MG #### [facility] [address] [place] [address] [place] #### VITB1 #### [facility] , Magnesiumon 06-10-2022 Magnesium [Mass/Vol] 2.0 mg/dL Normal 1.6-2.6 [facility] Comment on above: Order Comment: NOT F ASTING. JKW Performed By: #### P HOS, [id number], CMP, CBC, [id number], FE PRO, MG #### [facility] [address] [place] [address] [place] #### VITB1 #### [facility] , Phosphoruson 06-10-2022 Phosphate [Mass/Vol] 4.1 mg/dL Normal 2.5-4.6 [facility] Comment on above: Order Comment: NOT F ASTING. JKW Performed By: #### P HOS, [id number], CMP, CBC, [id number], FE PRO, MG #### [facility] [address] [place] [address] #### VITB1 #### [facility] , Vit. B12/Folate Profileon Cobalamin (Vitamin B12) [Mass/Vol] 575 pg/mL Normal 180-914 [facility] Comment on above: Order Comment: NOT F ASTING. JKW Performed By: #### P HOS, [id number], CMP, CBC, [id number], FE PRO, MG #### [facility] [address] [place] [address] #### VITB1 #### [facility] , Folate 14.3 ng/mL Normal >5.9 [facility] Comment on above: Order Comment: NOT F ASTING. JKW Result Comment: Tara te reference range: >5.9 ng/ml The WHO technical consultation on folate and vitamin b12 deficiencies has determined that folate concentrations less than 4 ng/ml are considered deficient. Performed By: #### P HOS, [id number], CMP, CBC, [id number], FE PRO, MG #### [facility] [address] [place] [address] [place] #### VITB1 #### [facility] , Vitamin B1 (Thiamine) Bloodo n 06-10-2022 Vitamin B1 (Thiamine) Blood 143.0 Normal 66.5-200.0 [facility] Comment on above: Order Comment: NOT F ASTING. JKW Result Comment: This test was developed and its performance characteristics determined by [facility]. It has not been cleared or approved by the Food and Drug Administration. Performed at: [facility] [address] [id number] Shoulder Boner: Chary Soler MD, Phone: [phone] PERFORMED BY: [place] [id number] PATHOLOGIST PARER AMANDA CALLE M.D. Performed By: #### P HOS, [id number], CMP, CBC, [id number], FE PRO, MG #### [address] #### VITB1 #### [facility] , Vitamin D 25 Hydroxy Totalon 06-10-2022 Vitamin D 25 Hydroxy Total 27.8 ng/mL Low 30-100 [facility] Comment on above: Order Comment: NOT F ASTING. JKW Result Comment: JONAH MIN D STATUS 25(OH)VITAMIN D RANGE (ng/mL) Deficient <20 Insufficient 20 to <30 Sufficient 30 to 100 Reference: Kofi MF,Mauricio MUÑOZ, Mayank CUELLAR, et al. Evaluation,treatment, and prevention of vitamin D deficiency; an Endocrine Society clinical practice guideline. JCEM. 2010; 96(7):1911-30. PERFORMED BY: [place] [address] PATHOLOGIST PARER AMANDA CALLE M.D. Performed By: #### P HOS, [id number], CMP, CBC, [id number], FE PRO, MG #### [place] [id number] [facility] #### VITB1 #### [facility] , HGB A1Con 01-15-2022 Average glucose Estimated from glycated hemoglobin (Bld) [Mass/Vol] 128 mg/dL [facility] Comment on above: Order Comment: Speci men Type: BLOOD SPECIMEN Ordering Facility: [facility] Address: [address] [place] [address] Result Comment: eAG: (Estimated average glucose) is a calculated value from HgbA1c and is sales representative advertising of the average blood glucose level in the last 2-3 month period. Performed By: #### H BA1C #### [facility] CLIA [id number] [address] [place] [address] [id number] [place] [address] [place] HbA1c (Bld) [Mass fraction] 6.1 % High 4.3-5.6 [facility] Comment on above: Order Comment: Mary head Type: BLOOD SPECIMEN Ordering Facility: [facility] Address: [address] [place] [phone] Result Comment: Jayy ican Diabetes Association guidelines indicate that patients with HgbA1c in the range 5.7-6.4% are at increased risk for development of diabetes, and intervention by lifestyle modification may be beneficial. HgbA1c greater or equal to 6.5% is considered diagnostic of diabetes. Performed By: #### H BA1C #### [facility] CLIA [id number] [address] [place] [address] [place] [address] [place] POTASSIUM Don 01-15-2022 Potassium [Moles/Vol] 4.9 mmol/L Normal 3.7-5.1 [facility] Comment on above: Order Comment: Mary head Type: BLOOD SPECIMEN Ordering Facility: [facility] Address: [address] [place] [phone] Performed By: #### K 1 #### [facility] CLIA [id number] [facility] [place] [address] [place] Potassium [Moles/Vol] 4.9 mmol/L 3.7 - 5.1 mmol/L [facility] Vital Signs Date Time Vital Sign Value Performing Clinician Facility 03-27-2025 14:01-0400 Body mass index (BMI) [Ratio] 36.28 kg/m2 Fresco Microchip DO Work Phone: [facility] 03-27-2025 14:01-0400 Body weight 92.9 kg CareXtend Joe DO Work Phone: [facility] 03-27-2025 14:01-0400 Diastolic blood pressure 72 mm[Hg] [employer]end Joe DO Work Phone: [facility] 03-27-2025 14:01-0400 Systolic blood pressure 116 mm[Hg] Fresco Microchip DO Work Phone: [facility] 03-13-2025 15:41-0400 Body mass index (BMI) [Ratio] 36.46 kg/m2 Rosy Oralia PA Work Phone: [facility] 03-13-2025 15:41-0400 Body weight 93.35 kg Rosy Oralia PA Work Phone: [facility] 03-13-2025 15:41-0400 Diastolic blood pressure 70 mm[Hg] Rosy Elsinore PA Work Phone: [facility] 03-13-2025 15:41-0400 Systolic blood pressure 110 mm[Hg] Rosy Elsinore PA Work Phone: [facility] 03-12-2025 13:35-0400 Body height 160 cm Daisha Lavoy PA-C Work Phone: [facility] 03-12-2025 13:35-0400 Body mass index (BMI) [Ratio] 36.38 kg/m2 Daisha Lavoy PA-C Work Phone: [facility] 03-12-2025 13:35-0400 Body weight 93.17 kg Daisha Lavoy PA-C Work Phone: [facility] 03-12-2025 13:35-0400 Diastolic blood pressure 57 mm[Hg] Daisha Lavoy PA-C Work Phone: [facility] 03-12-2025 13:35-0400 Heart rate 76 /min Daisha Lavoy PA-C Work Phone: [facility] 03-12-2025 13:35-0400 Systolic blood pressure 99 mm[Hg] Daisha Lavoy PA-C Work Phone: [facility] 02-27-2025 14:00-0400 Body mass index (BMI) [Ratio] 36.1 kg/m2 Roscoe Joe DO Work Phone: [facility] 02-27-2025 14:00-0400 Body weight 92.44 kg Roscoe Joe DO Work Phone: [facility] 02-27-2025 14:00-0400 Diastolic blood pressure 60 mm[Hg] Roscoe Joe DO Work Phone: [facility] 02-27-2025 14:00-0400 Systolic blood pressure 110 mm[Hg] Roscoe Joe DO Work Phone: [facility] 02-14-2025 15:17-0400 Body mass index (BMI) [Ratio] 36.21 kg/m2 Hien Giles RN Work Phone: [facility] 02-14-2025 15:17-0400 Body weight 92.72 kg Hien Giles RN Work Phone: [facility] 02-11-2025 11:36-0400 Body mass index (BMI) [Ratio] 35.87 kg/m2 Rosy Quiroz PA Work Phone: [facility] 02-11-2025 11:36-0400 Body weight 91.85 kg Rosy Quiroz PA Work Phone: [facility] 02-11-2025 11:36-0400 Diastolic blood pressure 60 mm[Hg] Rosy Elsinore PA Work Phone: [facility] 02-11-2025 11:36-0400 Systolic blood pressure 110 mm[Hg] Rosy Elsinore PA Work Phone: [facility] 02-07-2025 10:43-0400 Body height 160 cm Scanning External [facility] 01-10-2025 10:33-0400 Body mass index (BMI) [Ratio] 34.92 kg/m2 Roscoe Joe DO Work Phone: [facility] 01-10-2025 10:33-0400 Body weight 89.41 kg Roscoe Joe DO Work Phone: [facility] 01-10-2025 10:33-0400 Diastolic blood pressure 68 mm[Hg] Roscoe Joe DO Work Phone: [facility] 01-10-2025 10:33-0400 Systolic blood pressure 110 mm[Hg] Roscoe Joe DO Work Phone: [facility] 12-10-2024 11:23-0400 Body mass index (BMI) [Ratio] 33.66 kg/m2 Rosy Haddadey PA Work Phone: [facility] 12-10-2024 11:23-0400 Body weight 86.18 kg Rosy Quiroz PA Work Phone: [facility] 12-10-2024 11:23-0400 Diastolic blood pressure 70 mm[Hg] Rosy Quiroz PA Work Phone: [facility] 12-10-2024 11:23-0400 Systolic blood pressure 106 mm[Hg] Rosy Quiroz PA Work Phone: [facility] 11-08-2024 11:04-0400 Body mass index (BMI) [Ratio] 32.24 kg/m2 Roscoe Joe DO Work Phone: [facility] 11-08-2024 11:04-0400 Body weight 82.56 kg Roscoe Joe DO Work Phone: [facility] 11-08-2024 11:04-0400 Diastolic blood pressure 60 mm[Hg] Roscoe Joe DO Work Phone: [facility] 11-08-2024 11:04-0400 Systolic blood pressure 100 mm[Hg] Roscoe Joe DO Work Phone: [facility] 10-18-2024 13:54-0500 Body mass index (BMI) [Ratio] 31.38 kg/m2 Noms Nurse [facility] 10-18-2024 13:54-0500 Body weight 80.34 kg Nom Nurse [facility] 08-02-2024 15:58-0500 Body temperature 96.8 [degF] Edu Alvarez TRANSPORTATION SECURITY OFFICER Work Phone: [facility] 08-02-2024 15:58-0500 Diastolic blood pressure 66 mm[Hg] Edu Alvarez TRANSPORTATION SECURITY OFFICER Work Phone: [facility] 08-02-2024 15:58-0500 Heart rate 88 /min Edu Alvarez TRANSPORTATION SECURITY OFFICER Work Phone: [facility] 08-02-2024 15:58-0500 SaO2% (BldA) [Mass fraction] 98 % Edu Alvarez TRANSPORTATION SECURITY OFFICER Work Phone: [facility] 08-02-2024 15:58-0500 Systolic blood pressure 106 mm[Hg] Edu Alvarez TRANSPORTATION SECURITY OFFICER Work Phone: [facility] 07-25-2024 14:19-0500 Body height 160 cm Sina Cristobal DO Work Phone: [facility] 07-25-2024 14:19-0500 Body mass index (BMI) [Ratio] 30.82 kg/m2 Sina Cristobal DO Work Phone: [facility] 07-25-2024 14:19-0500 Body weight 78.93 kg Sina Cristobal DO Work Phone: [facility] 07-25-2024 14:19-0500 Diastolic blood pressure 68 mm[Hg] Sina Cristobal DO Work Phone: [facility] 07-25-2024 14:19-0500 Heart rate 68 /min Sina Cristobal DO Work Phone: [facility] 07-25-2024 14:19-0500 Respiratory rate 12 /min Sina Cristobal DO Work Phone: [facility] 07-25-2024 14:19-0500 SaO2% (BldA) [Mass fraction] 99 % Sina Cristobal DO Work Phone: [facility] 07-25-2024 14:19-0500 Systolic blood pressure 128 mm[Hg] Sina Cristobal DO Work Phone: [facility] 06-29-2024 12:36-0500 Body mass index (BMI) [Ratio] 29.58 kg/m2 Berenice Zepeda APRN.LAPPING MACHINE SET UP OPERATOR Work Phone: [facility] 06-29-2024 12:36-0500 Body weight 75.75 kg Berneice Zepeda APRN.LAPPING MACHINE SET UP OPERATOR Work Phone: [facility] 06-29-2024 12:36-0500 Diastolic blood pressure 68 mm[Hg] Berenice Katelyn TYPESETTING MACHINE OPERATOR/TENDER.LAPPING MACHINE SET UP OPERATOR Work Phone: [facility] 06-29-2024 12:36-0500 Heart rate 65 /min Berenice Katelyn TYPESETTING MACHINE OPERATOR/TENDER.LAPPING MACHINE SET UP OPERATOR Work Phone: [facility] 06-29-2024 12:36-0500 Systolic blood pressure 101 mm[Hg] Berenice Katelyn TYPESETTING MACHINE OPERATOR/TENDER.LAPPING MACHINE SET UP OPERATOR Work Phone: [facility] 09-23-2023 14:27-0500 Body height 160 cm Berenice Katelyn TYPESETTING MACHINE OPERATOR/TENDER.LAPPING MACHINE SET UP OPERATOR Work Phone: [facility] 09-23-2023 14:27-0500 Body weight 76.2 kg Berenice Katelyn TYPESETTING MACHINE OPERATOR/TENDER.LAPPING MACHINE SET UP OPERATOR Work Phone: [facility] 07-21-2023 16:05-0500 Body height 161.2 cm Berenice Katelyn TYPESETTING MACHINE OPERATOR/TENDER.LAPPING MACHINE SET UP OPERATOR Work Phone: [facility] 07-21-2023 16:05-0500 Body weight 80.06 kg Berenice Katelyn TYPESETTING MACHINE OPERATOR/TENDER.LAPPING MACHINE SET UP OPERATOR Work Phone: [facility] 07-21-2023 16:05-0500 Diastolic blood pressure 74 mm[Hg] Berenice Katelyn TYPESETTING MACHINE OPERATOR/TENDER.LAPPING MACHINE SET UP OPERATOR Work Phone: [facility] 07-21-2023 16:05-0500 Heart rate 60 /min Berenice Katelyn TYPESETTING MACHINE OPERATOR/TENDER.LAPPING MACHINE SET UP OPERATOR Work Phone: [facility] 07-21-2023 16:05-0500 Systolic blood pressure 112 mm[Hg] Berenice Katelyn TYPESETTING MACHINE OPERATOR/TENDER.LAPPING MACHINE SET UP OPERATOR Work Phone: [facility] 01-15-2022 11:50-0400 Body height 162.6 cm Dasha Lujan MD Work Phone: [facility] 01-15-2022 11:50-0400 Body temperature 98.01 [degF] Dasha Lujan MD Work Phone: [facility] 01-15-2022 11:50-0400 Body weight 104.33 kg Dasha Lujan MD Work Phone: [facility] 01-15-2022 11:50-0400 Diastolic blood pressure 86 mm[Hg] Dasha Lujan MD Work Phone: [facility] 01-15-2022 11:50-0400 Heart rate 65 /min Dasha Lujan MD Work Phone: [facility] 01-15-2022 11:50-0400 Respiratory rate 16 /min Dasha Lujan MD Work Phone: [facility] 01-15-2022 11:50-0400 Systolic blood pressure 124 mm[Hg] Dasha Lujan MD Work Phone: [facility] Encounters Encounter Date Encounter Type Care Provider Facility Start: 04-10-2025 End: 04-10-2025 Bamboo flowsheet Roscoe Joe DO Work Phone: [facility] Start: 04-10-2025 End: 04-10-2025 Bamboo flowsheet Roscoe Joe DO Work Phone: [facility] Start: 04-09-2025 End: 04-09-2025 Telephone encounter Devika MALDONADO Work Phone: [facility] Start: 04-08-2025 End: 04-08-2025 Clinisync Result Encounter Rosy KRUGER Work Phone: [facility] Unsolicited Start: 04-08-2025 End: 04-08-2025 Clinisync Result Encounter Rosy KRUGER Work Phone: [facility] Unsolicited Start: 04-08-2025 End: 04-08-2025 ambulatory ROSCOE JOE Not Available Start: 04-01-2025 End: 04-01-2025 Clinisync Result Encounter Rosy KRUGER Work Phone: [facility] Unsolicited Start: 04-01-2025 End: 04-01-2025 Clinisync Result Encounter Rosy KRUGER Work Phone: [facility] Unsolicited Start: 04-01-2025 End: 04-01-2025 Telephone encounter Blanquita Toney RN [facility] Start: 04-01-2025 End: 04-01-2025 [facility] Start: 04-01-2025 End: 04-01-2025 Office outpatient visit 25 minutes Daisha Morel PA-C Work Phone: [facility] Comment on above: Gestational diabetes requiring insulin (Primary Dx) Start: 03-27-2025 End: 03-27-2025 Bamboo flowsheet Roscoe Joe DO Work Phone: [facility] Start: 03-27-2025 End: 03-27-2025 Bamboo flowsheet Roscoe Joe DO Work Phone: [facility] Start: 03-27-2025 End: 03-27-2025 flow sheet Roscoe Joe DO Work Phone: [facility] Comment on above: Third trimester preg piper ([facility]); H/O gastric sleeve; Gestational diabetes mellitus (GDM), antepartum, gestational diabetes method of control unspecified ([facility]); 32 weeks gestation of ([facility]) Start: 03-27-2025 End: 03-27-2025 ambulatory ROSCOE JOE Not Available Start: 03-26-2025 End: 03-26-2025 Telephone encounter Devika MALDONADO Work Phone: [facility] Start: 03-19-2025 End: 03-19-2025 Telephone encounter Fatimah MALDONADO [facility] Start: 03-13-2025 End: 03-13-2025 flow sheet Rosy KRUGER Work Phone: [facility] Comment on above: 30 weeks gestation o f ([facility]); Third trimester ([facility]); H/O gastric sleeve; Gestational diabetes mellitus (GDM), antepartum, gestational diabetes method of control unspecified ([facility]) Start: 03-13-2025 End: 03-13-2025 ambulatory ROSY QUIROZ Not Available Start: 03-13-2025 End: 03-13-2025 Bamboo flowsheet Rosy KRUGER Work Phone: [facility] Start: 03-13-2025 End: 03-13-2025 Bamboo flowsheet Rosy KRUGER Work Phone: [facility] Start: 03-12-2025 End: 03-12-[address] [facility] Start: 03-12-2025 End: 03-12-2025 Office outpatient visit 25 minutes Daisha E Jasmina JULIENNE Work Phone: [facility] Comment on above: Gestational diabetes mellitus (GDM) in second trimester, gestational diabetes method of control unspecified (Primary Dx); Gestational diabetes requiring insulin Start: 03-05-2025 End: 03-05-2025 Telephone encounter Devika MALDONADO Work Phone: [facility] Start: 02-27-2025 End: 02-27-2025 flow sheet Roscoe Joe DO Work Phone: [facility] Comment on above: 28 weeks gestation o f ([facility]); Third trimester ([facility]); H/O gastric sleeve; Gestational diabetes mellitus (GDM), antepartum, gestational diabetes method of control unspecified ([facility]) Start: 02-27-2025 End: 02-27-2025 ambulatory ROSCOE JOE Not Available Start: 02-26-2025 End: 02-26-2025 Telephone encounter Devika MALDONADO Work Phone: [facility] Start: 02-14-2025 End: 02-14-2025 ambulatory Hien Giles RN Work Phone: [facility] Comment on above: Gestational diabetes mellitus (GDM) in second trimester, gestational diabetes method of control unspecified (Primary Dx) Start: 02-11-2025 End: 02-11-2025 flow sheet Rosy KRUGER Work Phone: [facility] Comment on above: Second trimester pre gnancy ([facility]); 26 weeks gestation of ([facility]); H/O gastric sleeve Start: 02-11-2025 End: 02-11-2025 ambulatory ROSY QUIROZ Not Available Start: 02-07-2025 End: 02-07-2025 Chart abstracting Scanning Provider External [facility] Start: 02-01-2025 End: 02-01-2025 Clinisync Result Encounter [...] Patient encounter procedure Rosy KRUGER Work Phone: [facility] Start: 12-10-2024 End: 12-10-2024 Periodic preventive [...] 9w4d Start: 10-18-2024 End: 10-18-2024 ambulatory ROSCOE DIAZ Not Available Start: 08-02-2024 End: 08-02-2024 ambulatory EDU ALVAREZ Not Available Start: 08-02-2024 End: 08-02-2024 Office outpatient visit 25 minutes Edu Alvarez TRANSPORTATION SECURITY OFFICER Work Phone: [facility] Comment on [...] Start: 06-29-2024 End: 06-29-2024 ambulatory DASHA LUJAN Facility:[facility] Start: 06-29-2024 End: 06-29-2024 Patient encounter procedure Berenice Zepeda APRN.LAPPING MACHINE SET UP OPERATOR Work Phone: Internal Medicine Comment on above: Encounter for weight management (Primary Dx); Overweight Start: 03-06-2024 ambulatory Berenice wheatley APRN.LAPPING MACHINE SET UP OPERATOR Work Phone: [facility] Medicine Start: 03-06-2024 Patient encounter procedure Berenice Zepeda APRN.LAPPING MACHINE SET UP OPERATOR Work Phone: Internal Medicine Comment on above: Prescription Start: 09-23-2023 End: 09-23-2023 ambulatory Berenice Zepeda APRN.LAPPING MACHINE SET UP OPERATOR Work Phone: Internal Medicine Comment on above: Encounter for weight management; Overweight (BMI 25.0-29.9) Start: 09-23-2023 End: 09-23-2023 Telemedicine consultation with patient Berenice Zepeda APRRajatLAPPING MACHINE SET UP OPERATOR Work Phone: [facility] Start: 08-23-2023 End: 08-23-2023 ambulatory BERENICE ZEPEDA Facility:[facility] Start: 07-26-2023 End: 07-26-2023 ambulatory DASHA LUJAN Facility:[facility] Start: 07-21-2023 End: 07-21-2023 ambulatory BERENICE ZEPEDA Facility:[facility] Start: 07-21-2023 End: 07-21-2023 Patient encounter procedure Berenice Zepeda LAPPING MACHINE SET UP OPERATOR Work Phone: Internal Medicine Comment on above: Routine adult health maintenance (Primary Dx); IFG (impaired fasting glucose); Encounter for weight management; Class 1 obesity due to excess calories with body mass index (BMI) of 30.0 to 30.9 in adult, unspecified whether serious comorbidity present; Encounter for immunization; Immunity status testing Start: 07-21-2023 End: 07-21-2023 Patient encounter status Berenice Zepeda MIRZA Work Phone: [facility] Work Phone: Start: 06-29-2023 ambulatory Dasha Lujan MD Work Phone: Internal Medicine Comment on above: Prescription Start: 10-11-2022 End: 10-11-2022 ambulatory Reena Breaux Facility:[facility] Start: 10-11-2022 End: 10-11-2022 ambulatory MD Dasha Lujan Work Phone: [facility] Work Phone: Start: 10-11-2022 End: 10-11-2022 Patient encounter procedure MD Dasha Lujan Work Phone: [facility] Start: 06-10-2022 End: 06-10-2022 ambulatory Reena Breaux Facility:[facility] Start: 01-15-2022 End: 01-15-2022 Office [...] Date Procedure Procedure Detail Performing Clinician Start: 04-08-2025 US OB BPP W NON-STRESS Rosy KRUGER Work Phone: Start: 04-01-2025 US OB BPP W NON-STRESS [...] stick/tabl et rgnt non-auto w/o micrscp Roscoe Welcho DO Work Phone: Start: 01-02-2025 US OB ANATOMY Roscoe Jian io DO Work Phone: Start: 01-02-2025 US OB CERVICAL LENGTH C natasha Diaz DO Work Phone: Start: 12-31-2024 Alpha-fetoprotein serum Not In System Ref Prov Start: 12-10-2024 RECURRENT VAGINITIS (HTRX) Rosy KRUGER Work Phone: Start: 12-10-2024 Urnls dip stick/tabl et rgnt non-auto w/o micrscp Rosy KRUGER Work Phone: Start: 12-10-2024 IGP,APTIMA HPV,AGE GDLN Rosy KRUGER Work Phone: Start: 12-10-2024 Microscopic observat ion [Identifier] in Cervix by Cyto stain Roscoe Diaz DO Work Phone: Start: 11-08-2024 Urnls dip stick/tabl et rgnt non-auto w/o micrscp Roscoe Diaz DO Work Phone: Start: 10-19-2024 ALL CBC WITH AUTO DIFF Roscoe Diaz DO Work Phone: Start: 10-19-2024 Antibody screen [...] stick/tabl et rgnt non-auto w/o micrscp Roscoe Diaz DO Work Phone: Start: 01-15-2022 Adult depression scr eening assessment Dasha Lujan MD Work Phone: Plan of Treatment Date Care Activity Detail Author Start: 07-21-2033 DTaP,Tdap and Td Vaccines (8 - Td or Tdap) DTaP,Tdap and Td Vaccines (8 - Td or Tdap) [facility] Start: 07-21-2033 Urine microalbumin profile [facility] Start: 12-11-2027 Screening for malign ant neoplasm of cervix [facility] Start: 03-12-2026 Adult BMI Screening Adult BMI Screen ing [facility] Start: 03-12-2026 Tobacco Screening Tobacco Screening [facility] Start: 02-14-2026 Adult BMI Screening Adult BMI Screen ing [facility] Start: 04-22-2025 Influenza vaccination [facility] Start: 04-10-2025 End: 04-10-2025 Patient encounter procedure [facility] Comment on above: Arrived Start: 04-01-2025 End: 04-01-2025 Telemedicine consultation with patient 04/01/2025 10:00 AM EDT Telemedicine [facility] [address] [place] [id number] Daisha Morel, PATutuC [address] [address] [facility] Start: 03-27-2025 End: 03-27-2025 Patient encounter procedure [facility] Comment on above: Arrived Start: 03-13-2025 End: 03-13-2025 Patient encounter procedure [facility] Comment on above: Arrived Start: 02-27-2025 End: 02-27-2025 Professional / ancillary services management 02/27/2025 1:00 PM EDT Ancillary Procedure [facility] [address] [facility] [place] [id number] [facility] Start: 02-14-2025 End: 02-14-2025 ambulatory 02/14/2025 1:30 PM EDT Support Visit [facility] [address] [place] [address] Hien Giles RN [address] [facility], [address] [place] [address], [place] [address] Devika Pope, JOEL [address] [place] [address] [facility] Start: 02-11-2025 End: 06-13-2025 US for US OB follow up transabdominal approach Imaging Routine H/O gastric sleeve Expected: 02/11/2025, Expires: 06/13/2025 [facility] Work Phone: Comment on above: Expected: 02/11/2025 , Expires: 06/13/2025 Start: 02-11-2025 End: 02-11-2025 Patient encounter procedure 02/11/2025 11:30 AM EDT [facility]ine [facility] [address] [place] [id number] Rosy Quiroz PA [address] [place] [address] [facility] Start: 01-30-2025 End: 01-30-2025 Professional / ancillary services management 01/30/2025 1:00 PM EDT Ancillary Procedure [facility] [address] [place] [id number] [facility] Start: 01-15-2025 Pap Testing Pap Testing [facility] Start: 01-15-2025 Screening for malign ant neoplasm of cervix Pap Testing [facility] Start: 01-10-2025 End: 01-10-2026 CBC panel - Blood by Automated count CBC Lab Routine Diabetes mellitus screening Expected: 01/10/2025 (Approximate), Expires: 01/10/2026 [facility] Work Phone: Comment on above: Expected: 01/10/2025 (Approximate), Expires: 01/10/2026 Start: 01-10-2025 End: 01-10-2026 Measurement of glucose 1 hour after glucose challenge for glucose tolerance test Glucose tolerance, 1 hour Lab Routine Diabetes mellitus screening Expected: 01/10/2025 (Approximate), Expires: 01/10/2026 [facility] Comment on above: Expected: 01/10/2025 (Approximate), Expires: 01/10/2026 Start: 01-10-2025 End: 01-10-2025 Patient encounter procedure 01/10/2025 10:10 AM EDT [facility] [address] [facility] [address] [place] [id number] Roscoe Diaz DO [address] [place] [address] [facility] Start: 12-10-2024 End: 01-09-2025 Alpha fetoprotein, maternal Alpha fetoprotein, maternal Lab Routine Need for maternal serum alpha-protein (MSAFP) screening Expected: 12/10/2024 (Approximate), Expires: 01/09/2025 [facility] Comment on above: Expected: 12/10/2024 (Approximate), Expires: 01/09/2025 Start: 12-10-2024 End: 03-11-2025 US for US OB 14+ weeks anatomy scan Imaging Routine Screening, , for anatomic survey Expected: 12/10/2024, Expires: 03/11/2025 [facility] Comment on above: Expected: 12/10/2024 , Expires: 03/11/2025 Start: 12-10-2024 End: 12-10-2024 Patient encounter procedure 12/10/2024 11:00 AM EDT Routine [facility] [address] [facility] [place] [phone] Rosy Quiroz PA [address] [place] [address] Arrived [facility] Comment on above: Arrived Start: 11-08-2024 End: 11-08-2024 Patient encounter procedure 11/08/2024 10:50 AM EDT Routine [facility] [address] [facility] [place] [phone] Roscoe Diaz, [address] [facility] [place] [address] [facility] Start: 10-18-2024 End: 10-18-2025 ABO/Rh ABO/Rh Lab Routine Missed menses , unspecified gestational age Expected: 10/18/2024 (Approximate), Expires: 10/18/2025 [facility] Comment on above: Expected: 10/18/2024 (Approximate), Expires: 10/18/2025 Start: 10-18-2024 End: 10-18-2025 Blood type and Indirect antibody screen panel - Blood Type and screen Lab Routine Missed menses , unspecified gestational age Expected: 10/18/2024 (Approximate), Expires: 10/18/2025 [facility] Comment on above: Expected: 10/18/2024 (Approximate), Expires: 10/18/2025 Start: 10-18-2024 End: 10-18-2025 Drugs of abuse panel - Urine by Screen method Rapid drug screen, urine Lab Routine , unspecified gestational age Encounter for supervision of normal first in first trimester Expected: 10/18/2024 (Approximate), Expires: 10/18/2025 [facility] Comment on above: Expected: 10/18/2024 (Approximate), Expires: 10/18/2025 Start: 10-18-2024 End: 10-18-2025 US Pelvis transvaginal [facility] Work Phone: Comment on above: Expected: 10/18/2024 , Expires: 10/18/2025 Start: 07-21-2024 Covid-19 Vaccine (#1) Covid-19 Vacci ne (#1) [facility] Comment on above: Postponed from 04/08 (Declined at this time) Start: 07-21-2024 Covid-19 Vaccine () Covid-19 Vaccine () [facility] Comment on above: Postponed from 04/22 (Declined at this time) Start: 04-22-2024 Covid-19 Vaccine () Covid-19 Vaccine () [facility] Start: 04-22-2024 Influenza vaccination Influenza Vacc ine (#1) [facility] Start: 02-19-2024 Influenza vaccination Influenza Vacc ine (#1) [facility] Comment on above: Postponed from 04/22 (Declined at this time) Start: 08-22-2023 Behavioral Health Screening Behavioral Health Screening [facility] Start: 08-22-2023 Depression Assessment Depression Ass essment [facility] Start: 07-21-2023 End: 10-20-2023 CBC W Auto Differential panel - Blood CBC + DIFF Lab Routine Routine adult health maintenance Expected: 07/21/2023, Expires: 10/20/2023 [facility] Work Phone: Comment on above: Expected: 07/21/2023 , Expires: 10/20/2023 Start: 07-21-2023 End: 10-20-2023 Comprehensive metabolic 2000 panel - Serum or Plasma COMP METABOLIC PANEL Lab Routine Routine adult health maintenance Expected: 07/21/2023, Expires: 10/20/2023 [facility] Work Phone: Comment on above: Expected: 07/21/2023 , Expires: 10/20/2023 Start: 07-21-2023 End: 10-20-2023 Hemoglobin A1c in Blood HGB A1C Lab Routine IFG (impaired fasting glucose) Routine adult health maintenance Expected: 07/21/2023, Expires: 10/20/2023 [facility] Work Phone: Comment on above: Expected: 07/21/2023 , Expires: 10/20/2023 Start: 07-21-2023 End: 10-20-2023 Hepatitis B virus surface Ab [Presence] in Serum HEP B SURF AB Lab Routine Immunity status testing Expected: 07/21/2023, Expires: 10/20/2023 [facility] Work Phone: Comment on above: Expected: 07/21/2023 , Expires: 10/20/2023 Start: 07-21-2023 End: 10-20-2023 Lipid 1996 panel - Serum or Plasma LIPID PANEL BASIC Lab Routine Routine adult health maintenance Expected: 07/21/2023, Expires: 10/20/2023 [facility] Work Phone: Comment on above: Expected: 07/21/2023 , Expires: 10/20/2023 Start: 07-06-2023 Hepatitis B Vaccine (1 of 3 - 3-dose series) Hepatitis B Vaccine (1 of 3 - 3-dose series) [facility] Comment on above: Postponed from 10/09 (Declined at this time) Start: 04-22-2023 Influenza vaccination Influenza Vacc ine (#1) [facility] Start: 01-15-2023 Adult depression screening assessment DEPRESSION SCREENING [facility] Start: 01-15-2023 COVID-19 VACCINE (#1) COVID-19 VACCI NE (#1) [facility] Comment on above: Postponed from 10/09 (Declined at this time) Start: 01-15-2023 PAP TESTING PAP TESTING [facility] Start: 01-15-2023 Screening for malign ant neoplasm of cervix Cervical Cancer Screening [facility] Start: 2022 HPV Testing HPV Testing [facility] Start: 2022 Screening for malign ant neoplasm of cervix [facility] Start: 08-22-2022 Depression Assessment Depression Ass essment [facility] Start: 04-22-2022 Influenza vaccination INFLUENZA (Sea son Ended) [facility] Start: 01-15-2022 End: 03-17-2022 Hemoglobin A1c/Hemoglobin.total in Blood [facility] Work Phone: Comment on above: Expected: 01/15/2022 , Expires: 03/17/2022 Start: 2013 Screening for malign ant neoplasm of cervix Pap Smear [facility] Start: 2011 DTaP,Tdap and Td Vaccines (1 - Tdap) DTaP,Tdap and Td Vaccines (1 - Tdap) [facility] Start: 2011 Urine microalbumin profile [facility] Start: 2010 Adult BMI Follow Up Plan Adult BMI Follow Up Plan [facility] Start: 2010 Adult BMI Screening Adult BMI Screen ing [facility] Start: 2010 Anxiety Screening Anxiety Screening [facility] Start: 2010 Depression Screening Depression Scre ening [facility] Start: 2004 Depression Screening Depression Scre ening [facility] Start: 2004 Tobacco Screening Tobacco Screening [facility] Start: 04-08-1993 Covid-19 Vaccine (#1) Covid-19 Vacci ne (#1) [facility] Start: 1992 Hepatitis B Vaccine (1 of 3 - 3-dose series) Hepatitis B Vaccine (1 of 3 - 3-dose series) [facility] Bacteria identified in Urine by Culture Urine culture Microbiology Routine Missed menses Ordered: 10/18/2024 [facility] Comment on above: Ordered: 10/18/2024 CBC W Auto Different ial panel - Blood CBC and differential Lab Routine Missed menses , unspecified gestational age Ordered: 10/18/2024 [facility] Comment on above: Ordered: 10/18/2024 CHLAMYDIA TRACHOMATI S (GENITO/STI) CHLAMYDIA TRACHOMATIS (GENITO/STI) Lab Routine Exposure to STD Ordered: 12/10/2024 [facility] Comment on above: Ordered: 12/10/2024 Cytology Cervical or vaginal smear or scraping study Pap Smear Pathology and Cytology Routine Well woman exam with routine gynecological exam Ordered: 12/10/2024 [facility] Comment on above: Ordered: 12/10/2024 Hemoglobin A1c/Hemoglobin.total in Blood Hemoglobin A1c Lab Routine Missed menses , unspecified gestational age Ordered: 10/18/2024 [facility] Comment on above: Ordered: 10/18/2024 Hepatitis B virus surface Ag [Presence] in Serum or Plasma by Immunoassay Hepatitis B surface antigen Lab Routine Missed menses , unspecified gestational age Ordered: 10/18/2024 [facility] Comment on above: Ordered: 10/18/2024 Hepatitis C virus Ab [Presence] in Serum or Plasma by Immunoassay Hepatitis C antibody Lab Routine Missed menses , unspecified gestational age Ordered: 10/18/2024 [facility] Comment on above: Ordered: 10/18/2024 HIV-1/HIV-2 antigen/antibody combination immunoassay HIV-1 and HIV-2 antibodies Lab Routine Missed menses , unspecified gestational age Ordered: 10/18/2024 [facility] Comment on above: Ordered: 10/18/2024 Human papilloma viru s DNA [Presence] in Unspecified specimen by Probe with amplification HPV DNA probe, amplified Microbiology Routine Well woman exam with routine gynecological exam Ordered: 12/10/2024 [facility] Comment on above: Ordered: 12/10/2024 Neisseria gonorrhoea e DNA [Presence] in Unspecified specimen by ALPA with probe detection Neisseria gonorrhea DNA probe, direct Lab Routine Exposure to STD Ordered: 12/10/2024 [facility] Comment on above: Ordered: 12/10/2024 Reagin Ab [Presence] in Serum by RPR RPR Lab Routine Missed menses , unspecified gestational age Ordered: 10/18/2024 [facility] Comment on above: Ordered: 10/18/2024 Rubella antibody, IgG Rubella an tibody, IgG Lab Routine Missed menses , unspecified gestational age Ordered: 10/18/2024 [facility] Comment on above: Ordered: 10/18/2024 SURESWAB(R) ADVANCED VAGINITIS PLUS, TMA SURESWAB(R) ADVANCED VAGINITIS PLUS, TMA Pathology and Cytology Routine Exposure to STD Ordered: 12/10/2024 [facility] Work Phone: Comment on above: Ordered: 12/10/2024 Thiamine [Moles/volu me] in [facility] Immunizations Immunization Date Immunization Notes Care Provider [facility] 07-21-2023 tetanus toxoid, redu sloane diphtheria toxoid, and acellular pertussis vaccine, adsorbed Berenice Zepeda APRN.LAPPING MACHINE SET UP OPERATOR Work Phone: [facility] 05-03-2011 meningococcal polysaccharide (groups A, C, Y and W-135) diphtheria toxoid conjugate vaccine (MCV4P) Berenice Zepeda APRN.CNP Work Phone: [facility] 05-03-2011 tetanus toxoid, redu sloane diphtheria toxoid, and acellular pertussis vaccine, adsorbed Berenice Katelyn TYPESETTING MACHINE OPERATOR/TENDER.LAPPING MACHINE SET UP OPERATOR Work Phone: [facility] 03-29-2011 human papilloma viru s vaccine, quadrivalent Berenice Katelyn TYPESETTING MACHINE OPERATOR/TENDER.LAPPING MACHINE SET UP OPERATOR Work Phone: [facility] 11-26-2010 human papilloma viru s vaccine, quadrivalent Berenice Katelyn TYPESETTING MACHINE OPERATOR/TENDER.LAPPING MACHINE SET UP OPERATOR Work Phone: [facility] 09-28-2010 human papilloma viru s vaccine, quadrivalent Berenice Katelyn TYPESETTING MACHINE OPERATOR/TENDER.LAPPING MACHINE SET UP OPERATOR Work Phone: [facility] 04-30-1998 diphtheria, tetanus toxoids and acellular pertussis vaccine, unspecified formulation Berenice Katelyn TYPESETTING MACHINE OPERATOR/TENDER.LAPPING MACHINE SET UP OPERATOR Work Phone: [facility] 04-30-1998 measles, mumps and rubella virus vaccine Berenice Katelyn TYPESETTING MACHINE OPERATOR/TENDER.LAPPING MACHINE SET UP OPERATOR Work Phone: [facility] 04-30-1998 trivalent poliovirus vaccine, live, oral Berenice Katelyn TYPESETTING MACHINE OPERATOR/TENDER.LAPPING MACHINE SET UP OPERATOR Work Phone: [facility] 06-07-1994 diphtheria, tetanus toxoids and acellular pertussis vaccine, unspecified formulation Berenice Katelyn TYPESETTING MACHINE OPERATOR/TENDER.LAPPING MACHINE SET UP OPERATOR Work Phone: [facility] 06-07-1994 hepatitis B vaccine, pediatric or pediatric/adolescent dosage Berenice Katelyn TYPESETTING MACHINE OPERATOR/TENDER.LAPPING MACHINE SET UP OPERATOR Work Phone: [facility] 06-07-1994 trivalent poliovirus vaccine, live, oral Berenice Katelyn TYPESETTING MACHINE OPERATOR/TENDER.LAPPING MACHINE SET UP OPERATOR Work Phone: [facility] 03-01-1994 haemophilus influenz ae type b vaccine, conjugate unspecified formulation Berenice Katelyn TYPESETTING MACHINE OPERATOR/TENDER.LAPPING MACHINE SET UP OPERATOR Work Phone: [facility] 03-01-1994 hepatitis B vaccine, pediatric or pediatric/adolescent dosage Berenice Katelyn TYPESETTING MACHINE OPERATOR/TENDER.LAPPING MACHINE SET UP OPERATOR Work Phone: [facility] 03-01-1994 measles, mumps and rubella virus vaccine Berenice Katelyn TYPESETTING MACHINE OPERATOR/TENDER.LAPPING MACHINE SET UP OPERATOR Work Phone: [facility] 07-27-1993 diphtheria, tetanus toxoids and pertussis vaccine Berenice Katelyn TYPESETTING MACHINE OPERATOR/TENDER.LAPPING MACHINE SET UP OPERATOR Work Phone: [facility] 07-27-1993 haemophilus influenz ae type b vaccine, conjugate unspecified formulation Berenice Katelyn TYPESETTING MACHINE OPERATOR/TENDER.LAPPING MACHINE SET UP OPERATOR Work Phone: [facility] 07-27-1993 hepatitis B vaccine, pediatric or pediatric/adolescent dosage Berenice Katelyn TYPESETTING MACHINE OPERATOR/TENDER.LAPPING MACHINE SET UP OPERATOR Work Phone: [facility] 03-16-1993 diphtheria, tetanus toxoids and pertussis vaccine Berenice Katelyn TYPESETTING MACHINE OPERATOR/TENDER.LAPPING MACHINE SET UP OPERATOR Work Phone: [facility] 03-16-1993 haemophilus influenz ae type b vaccine, conjugate unspecified formulation Berenice Katelyn TYPESETTING MACHINE OPERATOR/TENDER.LAPPING MACHINE SET UP OPERATOR Work Phone: [facility] 03-16-1993 trivalent poliovirus vaccine, live, oral Berenice Katelyn TYPESETTING MACHINE OPERATOR/TENDER.LAPPING MACHINE SET UP OPERATOR Work Phone: [facility] 1992 diphtheria, tetanus toxoids and pertussis vaccine Berenice Katelyn TYPESETTING MACHINE OPERATOR/TENDER.LAPPING MACHINE SET UP OPERATOR Work Phone: [facility] 1992 haemophilus influenz ae type b vaccine, conjugate unspecified formulation Berenice Katelyn TYPESETTING MACHINE OPERATOR/TENDER.LAPPING MACHINE SET UP OPERATOR Work Phone: [facility] 1992 trivalent poliovirus vaccine, live, oral Berenice Katelyn TYPESETTING MACHINE OPERATOR/TENDER.LAPPING MACHINE SET UP OPERATOR Work Phone: [facility] Payers Date Payer Category Payer [facility] [id number] 2023 Unknown [id number] 2023 Private Health Insurance [employer] [id number] 2023 Unknown [id number] 2022 Self-pay 2022 Unknown [id number] 2019 [employer] Managed Care - Other [id number] 2019 Unknown [employer] C[employer] PPO OOS [id number] 2019-Present [phone] [address] [place] [address] PPO [id number]. [id number] 2019 Unknown [id number] [id number]. [id number] 1992 Unknown [id number] 2.16.840.1.285908.3.579.2. 1286 1992 Unknown [id number] 2.16840.1.118788.3.579.2. 1286 1992 Unknown [id number] 2.16840.1.168544.3.579.2. 1286 1992 Unknown [id number] 2.16.840.1.566433.3.579.2. 1259 1992 Unknown [id number] 2.16.840.1.583876.3.579.2. 1259 1992 Unknown [id number] 2.16.840.1.336902.3.579.2. 1259 1992 Unknown [id number] 2.16.840.1.891326.3.579.2. 1259 1992 Unknown [id number] 2.16.840.1.009069.3.579.2. 1259 1992 Unknown [id number] 2.16.840.1.422935.3.579.2. 9 1992 Unknown [id number] 2.16.840.1.068530.3.579.2. 9 1992 Unknown [id number] 2.16.840.1.149941.3.579.2. 9 1992 Unknown [id number] 2.16.840.1.348823.3.579.2. 9 1992 Unknown [id number] 2.16.840.1.031847.3.579.2. 1258 1992 Unknown [id number] 2.16.840.1.776858.3.579.2. 9 1992 Unknown [id number] 2.16.840.1.168041.3.579.2. 1258 1992 Unknown [id number] 2.16.840.1.220903.3.579.2. 9 1992 Unknown [id number] 2.16.840.1.651315.3.579.2. 1259 Unknown [id number] 2.16.840.1.401343.3.579.2. 531 Unknown [id number] 2.16.840.1.452875.3.579.2. 531 Social History Date Type Detail Facility [facility] consumption [facility] Start: 1990 Sex Assigned At Not on file [facility] Start: 01-15-2022 End: 10-17-2023 Tobacco smoking status PRIS Never smoked tobacco [facility] Start: 01-15-2022 End: 10-17-2023 Tobacco use and exposure Smokeless tobacco non-user [facility] Start: 01-15-2022 End: 08-23-2023 Alcohol intake Current drinker of alcohol (finding) [facility] Start: 01-15-2022 End: 07-25-2024 Alcohol intake [facility] Start: 01-12-2022 History SDOH Alcohol Frequency 2 [facility] Start: 01-12-2022 History SDOH Alcohol Std Drinks 1 [facility] Start: 01-15-2022 History SDOH Alcohol Comment occ. drink [facility] Start: 01-12-2022 History SDOH Social Connections Phone 5 [facility] Start: 01-12-2022 History SDOH Social Connections Get Together 4 [facility] Start: 01-12-2022 History SDOH Social Connections Living 7 [facility] Start: 01-12-2022 History SDOH Physical Activity MPS 3 [facility] Start: 1990 Sex Assigned At Female [facility] Start: 01-12-2022 End: 07-25-2024 Social connection and isolation panel [facility] Do you belong to any clubs or organizations such as mormon groups, unions, fraternal or athletic groups, or school groups? No [facility] Are you now , , , , never or living with a partner? Never [facility] How often to you hav e a drink containing alcohol? Monthly or less [facility] How many standard dr inks containing alcohol do you have on a typical day? 1 or 2 [facility] How often do you hav e 6 or more drinks on 1 occasion? Never [facility] How hard is it for y ou to pay for the very basics like food, housing, medical care, and heating Not hard at all [facility] Do you feel stress - tense, restless, nervous, or anxious, or unable to sleep at night because your mind is troubled all the time - these days [OSQ] Not at all [facility] (I/We) worried delbert er (my/our) food would run out before (I/we) got money to buy more. Never true [facility] Start: 01-12-2022 Gender identity Identifies as female gender (finding) [facility] Are you now , , , , never or living with a partner? Living with partner [facility] How hard is it for y ou to pay for the very basics like food, housing, medical care, and heating Not very hard [facility] Do you feel stress - tense, restless, nervous, or anxious, or unable to sleep at night because your mind is troubled all the time - these days [OSQ] To some extent [facility] The food that (I/we) bought just didn't last, and (I/we) didn't have money to get more. DK or Refused [facility] Start: 10-17-2023 End: 03-13-2025 Alcoholic beverage intake Ex-drinker (finding) [facility] Start: 10-17-2023 Alcohol Comment Caffeine intake: 1cup coffee/ day [facility] Start: 09-14-2023 [facility] Start: 04-22-2015 Sex Female (finding) [facility] Medical Equipment Procedure Code Equipment Code Equipment Origin al Text Equipment Identifier Dates 1 strip by In Vi tro route Daily Use in the morning prior to breakfast, 1 hour after each meal for a total of 4times daily. [id number] Start: 02-04-2025 End: 03-06-2025 1 each by In Vit ro route Daily Use to check FSBS four times daily [id number] Start: 02-04-2025 End: 03-06-2025 Use to inject insulin nightly [id number] Start: 03-12-2025 Goals Date Patient Goal Desired Activity /State Personal health goal Clinical Notes 01-08-2022 to 04-09-2025 Telephone Encounter - JOEL Oakes - 04/09/2025 1:14 PM EDTTelephone Encounter - JOEL Oakes - 04/09/2025 1:14 PM EDTTelephone Encounter - Blanquita Toney RN - 04/01/2025 10:34 AM EDT Note Date & Type Note Facility 04-09-2025 Miscellaneous Notes Called regarding blood sugar logs from 04/01/2025-04/07/2025 but the call went straight to voicemail. She had 4 elevated post prandial blood sugars, no pattern, but she did note that they were most likely related to higher carbohydrate meals. Continue with 10 units of Lantus and sending blood sugars weekly. Reminded to schedule a follow-up visit with a [facility] provider for the second week in April. documented in this encounter [facility] 04-09-2025 Telephone encounter Note Called regarding blood sugar logs from 04/01/2025-04/07/2025 but the call went straight to voicemail. She had 4 elevated post prandial blood sugars, no pattern, but she did note that they were most likely related to higher carbohydrate meals. Continue with 10 units of Lantus and sending blood sugars weekly. Reminded to schedule a follow-up visit with a [facility] provider for the second week in April. [facility] Work Phone: 04-01-2025 Miscellaneous Notes Left message for patient to call [facility] back to reschedule a 4 week video visit shobha Marr. [facility] 04-01-2025 Telephone encounter Note Left message for patient to call [facility] back to reschedule a 4 week video visit shobha Marr. [facility] 04-01-2025 History of Present illness Narrative Maternal- Medicine Consultation VIRTUAL HISTORY OF PRESENT ILLNESS: Caryl Zamarripa is [...] nightly, Disp: 100 each, Rfl: 2 25-IRON [id number] ORAL, Take 1 tablet by mouth in [...] Delivery recommendations : - Recommend delivery at [id number] - reviewed with pateint - Discuss delivery [...] values to us weekly by e-mail to: [email or web address] or by fax to: [phone] Daisha Morel PA-C Maternal- Medicine Office phone: [phone] Daisha Morel PA-C 04/01/25 1331 documented in this encounter [facility] 04-01-2025 Miscellaneous Notes Left message to remind patient of video visit today at 10 AM. Call back number given to reschedule if unable to keep appointment. documented in this encounter [facility] 04-01-2025 Telephone encounter Note Left message to remind patient of video visit today at 10 AM. Call back number given to reschedule if unable to keep appointment. [facility] 03-27-2025 History of Present illness Narrative Reason [...] 81 mg, Daily Blood Glucose Monitoring Suppl (D-Care Glucometer) w/Device [...] nursing note reviewed. Exam conducted with a group director present. Vitals: Estimated body mass index is 36.28 kg/m as calculated from the following: Height as of 24: 5' 3 . Weight as of this encounter: 204 lb 12.8 oz. BP: 116/72 Patient's last menstrual period was 08/12/2024. ASSESSMENT & PLAN ICD-10-CM 1. Third trimester ([facility]) Z34.93 POCT urinalysis dipstick manually resulted 2. H/O gastric sleeve Z90.3 POCT urinalysis dipstick manually resulted 3. Gestational diabetes mellitus (GDM), antepartum, gestational diabetes method of control unspecified ([facility]) O24.419 POCT urinalysis dipstick manually resulted 4. 32 weeks gestation of ([facility]) Z3A.32 POCT urinalysis dipstick manually resulted Return [...] appointment. Patient continues to send FSBS to [facility] and doing well and [facility] continues to manage her Lantus dosing. She will begin NST/ BPP this week. Documented by Adelaida Dugan NP on behalf of: Roscoe Diaz DO documented in this encounter [facility] 03-26-2025 Miscellaneous Notes Called regarding blood sugar logs from 03/18/2025-03/24/2025 but received voicemail. Caryl had one elevated fasting blood sugar ( she may not of had a snack the night before) and three elevated blood sugars after dinner. She is taking 10 units of Lantus in the evening. Will send a Ridangohart message. documented in this encounter [facility] 03-26-2025 Telephone encounter Note Called regarding blood sugar logs from 03/18/2025-03/24/2025 but received voicemail. Caryl had one elevated fasting blood sugar ( she may not of had a snack the night before) and three elevated blood sugars after dinner. She is taking 10 units of Lantus in the evening. Will send a MyChart message. [employer] Work Phone: 03-19-2025 Miscellaneous Notes Blood glucose [...] now in target. [facility]-19-2025 Telephone encounter Note Blood glucose log from 03/11/25 to 03/17/25 received. Patient did not answer. I left a voicemail asking her to check for a new MyChart message that I am going to leave with questions about her dinner values (4 out of 7 were still elevated). Patient started Lantus on 03/12/25 and all fasting BG now in target. [facility] 03-13-2025 History of Present illness Narrative Reason for Appointment: Patient ID: Caryl Zamarripa is a 34 y.o. female who presents for Routine Visit Patient presents today for Return OB appointment. MEDICATIONS Current Outpatient Medications Medication Instructions Alcohol Swabs (Alcohol Prep Pad) 70 % pads 1 Pad, Topical, Daily, Use four times daily to check FSBS. aspirin 81 mg, Daily Blood Glucose Monitoring Suppl ([employer]-Care Glucometer) w/Device [...] PLAN ICD-10-CM 1. 30 weeks gestation of ([facility]) Z3A.30 POCT urinalysis dipstick manually resulted 2. Third trimester ([facility]) Z34.93 POCT urinalysis dipstick manually resulted 3. H/O gastric sleeve Z90.3 4. Gestational diabetes mellitus (GDM), antepartum, gestational diabetes method of control unspecified ([facility]) O24.419 Return OB: Patient presents today for [...] of: SLICK Matias documented in this encounter [facility] 03-12-2025 History of Present illness Narrative Headache/epigastric [...] nausea or vomiting., Disp: , Rfl: 25-IRON DOG-VZHOC-GSR ORAL, Take 1 tablet by mouth in [...] more likely to fail compared to insulin. superintendent terminal data on children whose mothers took oral [...] Delivery recommendations : - Recommend delivery at [id number] - reviewed with pateint - Discuss delivery [...] values to us weekly by e-mail to: [email or web address] or by fax to: [phone] Daisha Morel PA-C Maternal- Medicine Office phone: [phone] Daisha Morel PA-C 03/12/25 1500 Summary: MFM [...] time 10 minutes. documented in this encounter [facility] 03-05-2025 Miscellaneous Notes Called regarding blood sugar logs from 02/25/2025-03/03/2025 but the call went directly to voicemail. Caryl had 1 one elevated fasting blood sugar, 1 elevated blood sugar after breakfast, one elevated blood sugar after lunch, and 4 elevated blood sugars after dinner. Will send a AfterYes message. documented in this encounter [facility] 03-05-2025 Telephone encounter Note Called regarding blood sugar logs from 02/25/2025-03/03/2025 but the call went directly to voicemail. Caryl had 1 one elevated fasting blood sugar, 1 elevated blood sugar after breakfast, one elevated blood sugar after lunch, and 4 elevated blood sugars after dinner. Will send a AfterYes message. [employer] Work Phone: 02-27-2025 History of Present illness Narrative Reason for Appointment: Patient ID: Caryl Zamarripa is a 34 y.o. female who presents for Routine Visit Patient presents today for Return OB appointment. MEDICATIONS Current Outpatient Medications Medication Instructions Alcohol Swabs (Alcohol Prep Pad) 70 % pads 1 Pad, Topical, Daily, Use four times daily to check FSBS. Blood Glucose Monitoring Suppl (D-[employer] Glucometer) w/Device kit 1 kit, Does not [...] nursing note reviewed. Exam conducted with a group director present. Vitals: Estimated body mass index is 36.1 kg/m as calculated from the following: Height as of 24: 5' 3 . Weight as of this encounter: 203 lb 12.8 oz. BP: 110/60 Patient's last menstrual period was 08/12/2024. ASSESSMENT & PLAN ICD-10-CM 1. 28 weeks gestation of ([facility]) Z3A.28 POCT urinalysis dipstick manually resulted 2. Third trimester ([facility]) Z34.93 POCT urinalysis dipstick manually resulted 3. H/O gastric sleeve Z90.3 4. Gestational diabetes mellitus (GDM), antepartum, gestational diabetes method of control unspecified ([facility]) O24.419 Return OB: Patient presents today for [...] Roscoe Diaz DO documented in this encounter [facility] 02-26-2025 Miscellaneous Notes Called regarding blood sugar [...] a MyChart message. documented in this encounter [employer] 02-26-2025 Telephone encounter Note Called regarding blood [...] questions. Will also send a MyChart message. [employer] Work Phone: 02-14-2025 Group counseling note Patient: [...] of food logs and blood glucoses to [employer] , next Tuesday night/Tuesday morning. Please refer to health habits for other goals. Breakfast 6-6:30 AM 15-25 grams of CHO, Snack 9 AM 15-30 grams of CHO, Lunch 11:30-Noon 45 grams of CHO, Snack 2-3 PM 15-30 grams of CHO, Dinner 6 PM 45 grams of CHO, HS Snack 8-9 PM 15-30 grams of CHO. Face to face time was 70 minutes. [employer] Work Phone: 02-14-2025 Miscellaneous Notes Patient: Caryl Zamarripa Date: 02/14/2025 Vitals: 02/14/25 [...] of food logs and blood glucoses to [employer] , next Tuesday night/Tuesday morning. Please refer to [...] was 70 minutes. [facility] History of Present illness Narrative Reason for Appointment: Patient ID: Caryl Zamarripa is a 34 y.o. female who presents for Routine Visit Patient presents today for Return OB appointment. MEDICATIONS Current Outpatient Medications Medication Instructions Alcohol Swabs (Alcohol Prep Pad) 70 % pads 1 Pad, Topical, Daily, Use four times daily to check FSBS. Blood Glucose Monitoring Suppl (Luc[employer] ([employer]) Glucometer) w/Device kit 1 kit, Does not [...] nursing note reviewed. Exam conducted with a group director present. Vitals: Estimated body mass index is 35.87 kg/m as calculated from the following: Height as of 07/25/24: 5' 3 . Weight as of this encounter: 202 lb 8 oz. BP: 110/60 Patient's last menstrual period was 08/12/2024. ASSESSMENT & PLAN ICD-10-CM 1. Second trimester ([facility]) Z34.92 POCT urinalysis dipstick manually resulted 2. 26 weeks gestation of ([facility]) Z3A.26 3. H/O gastric sleeve Z90.3 US [...] Adelaida Dugan NP documented in this encounter [facility] 01-10-2025 History of Present illness Narrative Reason [...] nursing note reviewed. Exam conducted with a group director present. Vitals: Estimated body mass index [...] Roscoe Diaz DO documented in this encounter [facility] 12-10-2024 History of Present illness Narrative Reason [...] nursing note reviewed. Exam conducted with a group director present. Vitals: Estimated body mass index [...] of: SLICK Matias documented in this encounter [facility] 11-08-2024 History of Present illness Narrative Reason [...] Roscoe Diaz DO documented in this encounter [facility] 10-18-2024 History of Present illness Narrative Reason [...] or undercooked meat, and stay away from [facility]. Patient has also been advised to not [...] Monika Mesa LPN documented in this encounter [facility] 08-02-2024 History of Present illness Narrative Images from the original note were not included. [address] , [address] [facility] [place], [address] P: [phone] F: [phone] HPI Historian of HPI: patient Caryl Zamarripa [...] Left Turbinates: Enlarged and swollen. Mouth/Throat: Lips: [place]. Mouth: Mucous membranes are moist. Pharynx: Oropharynx [...] tablet; Refill: 0 documented in this encounter [facility] 07-25-2024 History of Present illness Narrative General [...] Use: Not At Risk (07/19/2023) Received from [facility] AUDIT-C Frequency of Alcohol Consumption: Monthly or less Average Number of Drinks: 1 or 2 Frequency of Binge Drinking: Never Depression: Not at risk (06/29/2024) Received from [facility] PHQ-2 PHQ-2 score: 0 Physical Activity: Insufficiently Active (07/19/2023) Received from [facility] Exercise Vital Sign Days of Exercise [...] Alexandro Garner DO documented in this encounter [facility] 06-29-2024 Note HNO ID: [id number] Author: BERENICE ZEPEDA APRN.LAPPING MACHINE SET UP OPERATOR Service: ? Author Type: Nurse Practitioner Type: [...] - PHENTERMINE 37.5 MG TABLET Berenice Zepeda APRN.[facility] 06-29-2024 History of Present illness Narrative [...] - PHENTERMINE 37.5 MG TABLET Berenice Zepeda APRN.LAPPING MACHINE SET UP OPERATOR documented in this encounter [facility] 03-06-2024 Telephone encounter Note Order formatted Please advise [facility] 03-06-2024 Miscellaneous Notes Order formatted Please advise documented in this encounter [facility] 09-23-2023 Note HNO ID: [id number] Author: BERENICE ZEPEDA APRN.CNP Service: ? Author Type: Nurse Practitioner Type: Progress Notes Filed: 09/23/2023 15:52 Note Text: VIRTUAL VISIT PROGRESS NOTE This is a virtual visit using [employer] Video Visit. It required patient-provider interaction for the medical decision making as documented below. I have communicated my name and active licensure. The patient's identity and physical location were verified at the time of this visit. Either the patient or their legal sales representative advertising has been informed of the risks and [...] Outpatient Medications Medication Sig Omeprazole Magnesium (ACID INSPECTOR TOOL, OMEPRAZOLE,) 20 mg cpDR No current facility-administered [...] on file for this visit. Berenice Zepeda APRN.[facility] 09-23-2023 History of Present illness Narrative VIRTUAL VISIT PROGRESS NOTE This is a virtual visit using [employer] Video Visit. It required patient-provider interaction for the medical decision making as documented below. I have communicated my name and active licensure. The patient's identity and physical location were verified at the time of this visit. Either the patient or their legal sales representative advertising has been informed of the risks and [...] Outpatient Medications Medication Sig Omeprazole Magnesium (ACID INSPECTOR TOOL, OMEPRAZOLE,) 20 mg cpDR No current facility-administered [...] Berenice Zepeda APRN.[facility]GI documented in this encounter [facility] 08-23-2023 Note HNO ID: [id number] Author: KATELYN, BERENICE, TYPESETTING MACHINE OPERATOR/TENDER.LAPPING MACHINE SET UP OPERATOR Service: ? Author Type: Nurse Practitioner Type: [...] - PHENTERMINE 37.5 MG TABLET Berenice Zepeda APRN.LAPPING MACHINE SET UP OPERATOR [facility] 07-21-2023 Note HNO ID: [id number] Author: Berenice Zepeda APRN.CNP Service: ? Author Type: Nurse Practitioner Type: Progress Notes Filed: 07/22/2023 10:16 AM Note Text: Caryl Zamarripa is a 32 year old female here today for review of established medical problems as well as comprehensive physical examination. Obesity S/p gastric sleeve surgery in 03/2022 at [facility] in [place] Down about 70lb, has reached plateau Gym 4 days per week with cardio (treadmill, elliptical) Maybe not enough water Tries to focus on more protein, lower carbs Last 10 Encounter Wt Readings: Date: Wt: 07/21/2023 80.1 kg (176 lb 8 oz) 07/06/2022 81.6 kg (180 lb) 01/15/2022 104.3 kg (230 lb) CERTIFIED NURSE MIDWIFE in [facility] Implanted control HM needs: Hepatitis B Vaccine(1 of 3 - 3-dose series) Never done Depression Assessment Never done HPV Testing Never done PAST MEDICAL HISTORY Diagnosis Date GERD (gastroesophageal reflux disease) Prediabetes PAST SURGICAL HISTORY Procedure Laterality Date PT ED BARIATRIC AND METABOLIC gastric sleeve 03/2022 ALLERGIES Patient has no known allergies. MEDICATIONS Omeprazole Magnesium (ACID INSPECTOR TOOL, OMEPRAZOLE,) 20 mg cpDR Phentermine HCl 37.5 [...] No history of dysuria, frequency or incontinence CERTIFIED NURSE MIDWIFE: Negative for abnormal vaginal bleeding, abnormal vaginal [...] and symmetric. Sensation grossly intact. Breast/Pelvic: Per CERTIFIED NURSE MIDWIFE ASSESSMENT/PLAN: 1. Routine adult health maintenance - ICD9: V70.0, ICD10: Z00.00 (primary diagnosis) - Counseled on healthy diet and regular exercise - Calcium intake with supplements or by diet of 1000 mg/day for under 50, 3328-9640 mg/day for 50+ - Discussed need and [...] comorbidity present - (more content not included)... [facility] 07-21-2023 History of Present illness Narrative Caryl Zamarripa is a 32 year old female here today for review of established medical problems as well as comprehensive physical examination. Obesity S/p gastric sleeve surgery in 03/2022 at [facility] in [place] Down about 70lb, has reached plateau Gym 4 days per week with cardio (treadmill, elliptical) Maybe not enough water Tries to focus on more protein, lower carbs Last 10 Encounter Wt Readings: Date: Wt: 07/21/2023 80.1 kg (176 lb 8 oz) 07/06/2022 81.6 kg (180 lb) 01/15/2022 104.3 kg (230 lb) [facility] HM needs: Hepatitis B Vaccine(1 of 3 - 3-dose series) Never done Depression Assessment Never done HPV Testing Never done PAST MEDICAL HISTORY Diagnosis Date GERD (gastroesophageal reflux disease) Prediabetes PAST SURGICAL HISTORY Procedure Laterality Date PT ED BARIATRIC AND METABOLIC gastric sleeve 03/2022 ALLERGIES Patient has no known allergies. MEDICATIONS Omeprazole Magnesium (ACID INSPECTOR TOOL, OMEPRAZOLE,) 20 mg cpDR Phentermine HCl 37.5 [...] No history of dysuria, frequency or incontinence CERTIFIED NURSE MIDWIFE: Negative for abnormal vaginal bleeding, abnormal vaginal [...] and symmetric. Sensation grossly intact. Breast/Pelvic: Per CERTIFIED NURSE MIDWIFE ASSESSMENT/PLAN: 1. Routine adult health maintenance - ICD9: V70.0, ICD10: Z00.00 (primary diagnosis) - Counseled on healthy diet and regular exercise - Calcium intake with supplements or by diet of 1000 mg/day for under 50, 6943-4224 mg/day for 50+ - Discussed need and [...] - HEP B SURF AB Berenice Zepeda APRN.LAPPING MACHINE SET UP OPERATOR ' documented in this encounter [facility] 06-29-2023 Miscellaneous Notes Sent Valtrex 1 gram twice/day for 2 days with one refill. High stress can cause cold sores? How is your stress level? documented in this encounter [facility] 01-15-2022 Instructions Dasha Lujan MD - 01/15/2022 12:05 PM EDT -Get Hgba1c and K level checked in the near future. -Encourage you to lose 2 lbs/week as a healthy way via diet and exercise -Should you have any questions or concerns, do not hesitate to contact me anytime via my chart (Dr.Sunir Lujan) documented in this encounter [facility] 01-15-2022 History of Present illness Narrative Caryl Zamarripa is a 31 year old female who presents with Establish Care -Pt is here to Establish Care. 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 Says all labs checked out fine per pt discussion. Pt says she did get her thyroid lab work checked 4 years ago, and all checked out fine. Thyroid blood work was also checked recently. -OARRS reviewed: clean -Retail Operations Specialist: deferred seeing one at this time as pt is undergoing gastric sleeve evaluation (Bariatric Surgery) at [facility]. Pt says that she just needs to [...] process to get Bariatric Surgery done at [facility]. (R73.9) Blood glucose elevated Plan: HGB A1C (E87.5) Hyperkalemia Plan: POTASSIUM BLD -Will have her get K level rechecked. (K76.0) Hepatic steatosis -LFT were normal. -Encourage weight reduction and avoid alcohol and tylenol as much as possible. -Will continue to monitor LFT. Dasha Lujan MD documented in this encounter [facility] 01-08-2022 Miscellaneous Notes Will advise on Tuesday when he returns Patient calling stating Dr Lujan agreed to take her into his practice but no documentation found in patient chart. Please advise. documented in this encounter [facility] Evaluation note Diagnosis Preoperative clearance- Primary Preoperative examination, unspecified Obesity (BMI 30-39.9) Obesity, unspecified Blood glucose elevated Other abnormal glucose Hyperkalemia Hyperpotassemia Hepatic steatosis Other chronic nonalcoholic liver disease [facility]No assessment information [facility] Work Phone: Evaluation note* Diagnosis Routine adult [...] Antibody response examination [facility] Diagnosis Encounter for weight management Overweight (BMI 25.0-29.9) Overweight [facility] Diagnosis Encounter for weight management- Primary Overweight [facility] Diagnosis Rectal bleeding- Primary Hemorrhage of rectum and anus documented in this encounter [facility]* Diagnosis Acute cough- Primary Chest congestion Other symptoms involving respiratory system and chest Bronchitis Bronchitis, not specified as acute or chronic documented in this encounter [facility]* Diagnosis Missed menses , unspecified gestational age Encounter for supervision of normal first in first trimester Nausea and vomiting in Unspecified vomiting of , unspecified as to episode of care documented in this encounter [facility]* Diagnosis 12 weeks gestation of documented in this encounter [facility]* Diagnosis Well woman exam with routine gynecological exam Routine gynecological examination Second trimester state, incidental 17 weeks gestation of Exposure to STD Need for maternal serum alpha-protein (MSAFP) screening Screening, , for anatomic survey Encounter for anatomic survey documented in this encounter [facility]* Diagnosis 21 weeks gestation of Second trimester state, incidental Diabetes mellitus screening Screening for diabetes mellitus documented in this encounter [facility]* Diagnosis Second trimester ([facility]) state, incidental 26 weeks gestation of ([facility]) H/O gastric sleeve documented in this encounter [facility]* Diagnosis Gestational diabetes mellitus (GDM) in second trimester, gestational diabetes method of control unspecified- Primary [facility] Diagnosis 28 weeks gestation of [...] episode of care documented in this encounter [facility]* Diagnosis 30 weeks gestation of ([facility]) Third trimester ([facility]) state, incidental H/O gastric sleeve Gestational diabetes mellitus (GDM), antepartum, gestational diabetes method of control unspecified ([facility]) documented in this encounter [facility]* Diagnosis Gestational diabetes requiring insulin- Primary Abnormal maternal glucose tolerance, complicating , childbirth, or the puerperium, unspecified as to episode of care documented in this encounter [facility]* Diagnosis Third trimester ([facility]) state, incidental H/O gastric sleeve Gestational diabetes mellitus (GDM), antepartum, gestational diabetes method of control unspecified ([facility]) 32 weeks gestation of ([facility]) documented in this encounter [facility] HealthcareInstructionsNot on filedocumented in [facility] SystemInstructionsNot on filedocumented in this [facility] SystemInstructionsNot on filedocumented in this encounterSal[facility] SystemInstructionsNot on filedocumented in this [facility] InstructionsNot on filedocumented in this [facility] InstructionsNot on filedocumented in this [facility] Summary Purpose Family History No Family [...] unspecified whether serious comorbidity present Berenice Zepeda APRN.LAPPING MACHINE SET UP OPERATOR [id number] [place] [address] Referral ID Status Reason Start Date Expiration Date Visits Re quested Visits Authorized [id number] Closed 1 1 Specialty Diagnoses / Procedures Referred By Contac t Referred To Contact Diagnoses Encounter for weight management Overweight (BMI 25.0-29.9) Berenice Zepeda APRN.LAPPING MACHINE SET UP OPERATOR [id number] [place] [address] Referral ID Status Reason Start Date Expiration Date Visits Re quested Visits Authorized [id number] Closed 1 1 Additional Source Comments Source Comments (unrecognize d section and content) In the event this informatio n is protected by the Federal Confidentiality of Alcohol and Drug Abuse Patient Records regulations: The Federal rules restrict any use of the information to criminally investigate or prosecute any alcohol or drug abuse patient.[facility] the event this information is protected by the Federal Confidentiality of Alcohol and Drug Abuse Patient Records regulations: The Federal rules restrict any use of the information to criminally investigate or prosecute any alcohol or drug abuse patient.[facility] FoundationIn the event this information is protected by the Federal Confidentiality of Alcohol and Drug Abuse Patient Records regulations: The Federal rules restrict any use of the information to criminally investigate or prosecute any alcohol or drug abuse patient.[facility] FoundationIn the event this information is protected by the Federal Confidentiality of Alcohol and Drug Abuse Patient Records regulations: The Federal rules restrict any use of the information to criminally investigate or prosecute any alcohol or drug abuse patient.[facility] FoundationIn the event this information is protected by the Federal Confidentiality of Alcohol and Drug Abuse Patient Records regulations: The Federal rules restrict any use of the information to criminally investigate or prosecute any alcohol or drug abuse patient.[facility] FoundationIn the event this information is protected by the Federal Confidentiality of Alcohol and Drug Abuse Patient Records regulations: The Federal rules restrict any use of the information to criminally investigate or prosecute any alcohol or drug abuse patient.[facility] FoundationIn the event this information is protected by the Federal Confidentiality of Alcohol and Drug Abuse Patient Records regulations: The Federal rules restrict any use of the information to criminally investigate or prosecute any alcohol or drug abuse patient.[facility] Reason for Visit (unrecogniz ed section and [...] Contact General Surgery Diagnoses Rectal bleeding Procedures [place] OFFICE/OUTPATIENT [facility] Sina Garner, DO [address] [address] Phone: tel: fax: Sina Garner, [address] [address] Phone: tel: fax: Referral ID Status Reason Start Date Expiration Date V isits Requested Visits Authorized [id number] Closed Specialty Services Required 07/11/2024 01/07/2025 1 1 Reason Comments Amenorrhea Reason Comments Routine Visit Reason Comments Elevated Glucose Tolerance Test Specialty Diagnoses / Procedures Referred By Zachery kenyon Referred To Contact Maternal and Medicine Diagnoses Gestational diabetes mellitus (GDM) in second trimester, gestational diabetes method of control unspecified Roscoe Diaz, DO [address] [place] [address] Phone: tel: fax: Maternal- Medicine at [facility] [address] [facility] [place] [address] Phone: tel: fax: Referral ID Status Reason Start Date Expiration Date Visits Requested Visits Authorized [id number] Pending Review Specialty Services Required 02/06/2025 02/06/2026 1 1 Reason Comments MED START Care Teams (unrecognized sec tion and content) Cat Operator Relationship Specialty [place] [address] [place] [address] PCP - General Internal Medicine 01/11/22 Team Status: Inactive Member Role Status Dates Dasha Lujan MD Primary Care Provider Active Reena Breaux APRN TRANSPORTATION SECURITY OFFICER-C Attending Provider Rosy multani Team Status: Active Member Role Status Dates Dasha Lujan MD Primary Care Provider Active Cat Operator Relationship Specialty [place] [address] [place] [address] PCP - General Internal Medicine 01/11/22 Cat Operator Relationship Specialty [place] [address] [place] [address] PCP - General Internal Medicine 01/11/22 Cat Operator Relationship Specialty [place] [address] [place] [address] PCP - General Internal Medicine 01/11/22 Cat Operator Relationship Specialty [place] [address] [place] [address] PCP - General Internal Medicine 01/11/22 Cat Operator Relationship Specialty [place] [address] [place] [address] PCP - General Internal Medicine 01/11/22 Cat Operator Relationship Specialty Start Date End Date Unallocated, Ebenezer Pate MD [facility] [place] [address] PCP - General Family Medicine 10/17/23 Cat Operator Relationship Specialty Start Date End Date Unallocated, Ebenezer Pate MD [facility] [place] [address] PCP - General Family Medicine 10/17/23 Cat Operator Relationship Specialty Start Date End Date Unallocated, Ebenezer Pate MD [facility] [place] [address] PCP - General Family Medicine 10/17/23 Cat Operator Relationship Specialty Start Date End Date Unallocated, Ebenezer Pate MD [address] [place] [address] [place] [address] PCP - General Family Medicine 10/17/23 Cat Operator Relationship Specialty Start Date End Date Unallocated, Ebenezer Pate MD [facility] [place] [address] PCP - General Family Medicine 10/17/23 Cat Operator Relationship Specialty Start Date End Date Unallocated, Ebenezer Pate MD [facility] [place] [address] PCP - General Family Medicine 10/17/23 Edu Alvarez NP [address] [place] [address] PCP - [employer] 09/22/24 Cat Operator Relationship Specialty Start Date End Date Unallocated, Ebenezer Pate MD [address] [place] [address] [place] [address] PCP - General Family Medicine 10/17/23 Edu Alvarez TRANSPORTATION SECURITY OFFICER [address] [place] [address] PCP - [employer] 09/22/24 Cat Operator Relationship Specialty Start Date End Date Unallocated, Ebenezer Pate MD [address] [place] [address] PCP - General Family Medicine 10/17/23 Edu Alvarez TRANSPORTATION SECURITY OFFICER [address] [place] [address] PCP - [employer] 09/22/24 Cat Operator Relationship Specialty Start Date End Date Unallocated, Ebenezer Pate MD [address] [place] [address] PCP - General Family Medicine 10/17/23 Edu Alvarez TRANSPORTATION SECURITY OFFICER [address] [place] [address] PCP - [employer] 09/22/24 Cat Operator Relationship Specialty Start Date End Date Unallocated, Ebenezer Pate MD [facility] [place] [address] PCP - General Family Medicine 10/17/23 Edu Alvarez TRANSPORTATION SECURITY OFFICER [address] [place] [address] PCP - [employer] 09/22/24 Cat Operator Relationship Specialty Start Date End Date Unallocated, Ebenezer Pate MD [facility] [place] [address] PCP - General Family Medicine 10/17/23 Edu Alvarez NP [address] [place] [address] PCP - [employer] 09/22/24 Cat Operator Relationship Specialty Start Date End Date Unallocated, Ebenezer Pate MD [facility] [place] [address] PCP - General Family Medicine 10/17/23 Edu Alvarez, TRANSPORTATION SECURITY OFFICER [address] [place] [address] PCP - [employer] 09/22/24 Cat Operator Relationship Specialty Start Date End Date Unallocated, Ebenezer Ptae MD [facility] [place] [address] PCP - General Family Medicine 10/17/23 Edu Alvarez, TRANSPORTATION SECURITY OFFICER [address] [place] [address] PCP - [employer] 09/22/24 Cat Operator Relationship Specialty Start Date End Date Unallocated, Ebenezer Pate MD [address] [place] [address] PCP - General Family Medicine 10/17/23 Edu Alvarez, TRANSPORTATION SECURITY OFFICER [address] [place] [address] PCP - [employer] 09/22/24 Cat Operator Relationship Specialty Start Date End Date Unallocated, Ebenezer Pate MD [address] [place] [address] PCP - General Family Medicine 10/17/23 Edu Alvarez, TRANSPORTATION SECURITY OFFICER [address] [place] [address] PCP - [employer] 09/22/24 INFORMATION SOURCE (unrecogn ized section and content) DATE CREATED AUTHOR 01/16/2022 [facility] DATE CREATED AUTHOR AUTHOR'S ORGANIZ ATION 10/18/2022 [facility] DATE CREATED AUTHOR AUTHOR'S ORGANIZ ATION 07/01/2024 [facility] DATE CREATED AUTHOR AUTHOR'S ORGANIZ ATION 04/02/2025 [facility] DATE CREATED AUTHOR AUTHOR'S ORGANIZ ATION 04/10/2025 [facility] EPIC Goals (unrecognized section and content) [...] BE BASED ON THE PRIMARY CLINICAL RECORDS. [facility]. provides no warranty or guarantee of the accuracy or completeness of information in this document.
== END 2025-04-11 13:55 | disposition home or self-care (01) ==
LOC: FBCO 13:03 → FBC 13:18
PROVIDERS: Visit Provider Obstetrics & Gynecology
DX: O26.893 Other specified pregnancy related conditions, third trimester (principal)
CPT/HCPCS: 59025

== ENCOUNTER 2025-04-15 15:02 | Outpatient (OUT) | payer BC, SELFPAY ==
--- NOTE | 2025-04-15 15:05 | US_ITS ---
The [address] [address] Patient Name: TRUDI ZAMARRIPA MRN: [id number] date: 1990 Sex: F Assigned Patient Location: US Current Patient Location: Accession/Order Number: [id number] Exam Date: 04/15/2025 15:09 Report Date: 04/15/2025 16:16 At the request of: MAULIK QUIROZ Procedure: US OB BPP w non-stress Biophysical profile. Reason for exam: History of gastric sleeve surgery COMPARISON: 04/08/2025 TECHNIQUE: Transabdominal imaging of the gravid uterus was obtained. FINDINGS: The harvest contractor reports a BPP of 8 out of 8. HELLEN is normal at 17 cm. heart rate 136 bpm. US/US OB BPP w non-stress IMPRESSION: BPP 8 out of 8. Impression dictated by: Cy Jensen Jr., D.O. 04/15/2025 4:16 PM Dictation Location: [place] [address] Electronically authenticated by: [id number] Y Date: 04/15/2025 16:16
--- OUTSIDE RECORDS SUMMARY | 2025-04-15 15:06 | XMS_ITS | CCD ---
Author Organization [facility]ini[facility] Care Team Providers Care Mortgage Loan Funder Name Role Phone Unavailable Primary Care Provider Unavailcal Lujan MD Sunir C Primary Care Provider MD Paz Lujanir Maria Isabel Primary Care Provider BRETT Breaux Attending Provider [phone] Reena Breaux Admitting Unavailable Reena Breaux Attending Unavailable Lujan, Sunir C Primary Care Unavailable Reena Breaux Admitting Unavailable Reena Breaux Attending Unavailable Lujan, Sunir C Primary Care Unavailable Tai ROQUE Sunir C Primary Care Provider Paz Lujan MDir Maria Isabel Primary Care Provider BERENICE ZEPEDA Attending Unavailable LUJAN, SUNIR C Primary Care Unavailable LUJAN, SUNIR C Primary Care Unavailable BERENICE ZEPEDA Attending Unavailable BERENICE ZEPEDA Attending Unavailable LUJAN, SUNIR C Primary Care Unavailable BERENICE ZEPEDA Attending Unavailable LUJAN, SUNIR C Primary Care Unavailable LUJAN, SUNIR C Primary Care Unavailable Unallocated , Noms Provider Primary Care Provi chrissy Teo COIN COUNTER AND WRAPPER, Edu N Unavailable Teo COIN COUNTER AND WRAPPER, Edu N Unavailable Unavailable Primary Care Provider UnavailDEVIKA Lima Attending Unavailable DARI DIAZY R Referring Unavailable DAISHA MOREL Attending Unavailable JOE, ROSCOE R Referring Unavailable LAVPETR KUMAREN Emelia Attending Unavailable JOE, ROSCOE R Referring Unavailable JOE, ROSCOE Attending Unavailable ORALIA, ROSY Attending Unavailable JOE, ROSCOE Attending Unavailable ORALIA, ROSY Attending Unavailable ORALIA, ROSY Referring Unavailable JOE, ROSCOE Attending Unavailable ORALIA, ROSY Attending Unavailable JOE, ROSCOE Attending Unavailable JOE, ROSCOE Referring Unavailable ROSCOE DIAZ Attending Unavailable SINA GARNER [...] antepartum, gestational diabetes method of control unspecified ([facility]) , Elevated glucose tolerance test 1 kit [...] antepartum, gestational diabetes method of control unspecified ([facility]) , Elevated glucose tolerance test Apply 1 Pad topically Daily Use four times daily to check FSBS. 150 each 3 02/04/2025 Active omeprazole 20 mg delayed release oral capsule (20 sources) Proton Pump Inhibitor Start: 04-16-2022 Omeprazole Magnesium (ACID PRACTICE SPECIALIST, OMEPRAZOLE,) 20 mg cpDR 04/16/2022 Active take [...] 30 days. BMI 29.76 polyethylene glycol 3350 30128 mg powder for oral solution (2 sources) Osmotic Laxative Start: End: take 17 g by mouth once polyethylene glycol, PEG, 3350 (Glycolax) 17 GM/SCOOP powder Indications: Colonoscopy Take 238 g by mouth 1 (one) time for 1 dose Take as detailed from clinic hand out for colonoscopy prep 238 g 07/25/2024 07/25/2024 Active 25-IRON LNY-TECPR-ICW ORAL (11 sources) take 1 tablet by mouth in the morning 25-IRON EFV-ZUUGK-EZN ORAL Take 1 tablet by mouth in the morning. Active Vit-Fe Fumarate-FA ( 19) 29-1 MG chewable tablet (20 sources) Start: Vit-Fe Fumarate-FA ( 19) 29-1 MG chewable tablet Indications: , unspecified gestational age ([facility]) Chew 1 each Daily 30 [...] diabetes mellitus in , unspecified control] Onset: 5 02-14-2025 Episodic Fluid and electrolyte disorders (1 [...] OB BPP W NON-STRESS on 04-08-[address] [address] Ultrasound Report Signed Patient: CARYL ZAMARRIPA MR#: [id number] : 1990 Acct:[id number] Age/Sex: 34 / F ADM Date: 04/08/25 Loc: US Attending Dr: Rosy Quiroz Ordering Physician: Rosy Quiroz Date of Service: 04/08/25 Procedure(s): US OB BPP w non-stress Accession Number(s): [id number] cc: Rosy Quiroz; Physician,Non-Staff Shimon The [address] [address] Patient Name: CARYL ZAMARRIPA MRN: [facility]:[id number] date: 1990 Sex: F Assigned Patient Location: [facility] Current Patient Location: Accession/Order Number: [id number] Exam Date: 04/08/2025 20:36 Report Date: 04/08/2025 [...] Briscoe M.D. 04/08/2025 8:37 PM Dictation Location: [place] [address] Electronically authenticated by: [id number] Y Date: 04/08/2025 20:37 Dictated By: Suraj Briscoe D.O. Signed By: 04/08/252038 DD/ 36 TD/TT: Hard Tile Setter: [facility] Radiology, Radiologist, - 04/08/2025 The [place] [id number] Ultrasound Report Signed Patient: CARYL ZAMARRIPA MR#: [id number] : 1990 Acct:[id number] Age/Sex: 34 / F ADM Date: 04/08/25 Loc: US Attending Dr: Rosy Quiroz Ordering Physician: Rosy Quiroz Date of Service: 04/08/25 Procedure(s): US OB BPP w non-stress Accession Number(s): [id number] cc: Rosy Quiroz; Physician,Non-Staff Shimon [address] [address] Patient Name: CARYL ZAMARRIPA MRN: [facility]:[id number] date: 1990 Sex: F Assigned Patient Location: [facility] Current Patient Location: Accession/Order Number: [id number] Exam Date: 04/08/2025 20:36 Report Date: 04/08/2025 [...] Briscoe M.D. 04/08/2025 8:37 PM Dictation Location: [place] [address] Electronically authenticated by: [id number] Y Date: 04/08/2025 20:37 Dictated By: Suraj Briscoe D.O. Signed By: 04/08/252038 DD/ 36 TD/TT: Hard Tile Setter: [facility] Radiology Study observation (narrative) [facility] OB BPP W NON-STRESS Ordered By: Radiologist Radiology on 04-08-2025 [facility] Work Phone: US OB FOLLOW UP TRANSABDOMIN [...] II, MD, PHD at 09-Apr-2025 07:59:18 AM [facility] Normal Not Available Comment on above: Order Comment: US OB SCAN FOR GROWTH Estimated Date of Delivery: 05/19/25 Gestational Age as of 04/05/2025: 33w5d US OB BPP W NON-STRESS on 04-01-2025 [place] [address] Ultrasound Report Signed Patient: CARYL ZAMARRIPA MR#: [id number] : 1990 Acct:[id number] Age/Sex: 34 / F ADM Date: 04/01/25 Loc: [place] [address]: Rosy Quiroz Ordering Physician: Rosy Quiroz Date of Service: 04/01/25 Procedure(s): US OB BPP w non-stress Accession Number(s): [id number] cc: Rosy Quiroz; Physician,Non-Staff M.D. The [place] [id number] Patient Name: CARYL ZAMARRIPA MRN: [facility]:[id number] date: 1990 Sex: F Assigned Patient Location: US Current Patient Location: US Accession/Order Number: [id number] Exam Date: 04/01/2025 15:28 Report Date: 04/01/2025 15:29 At the request of: ROSY QUIROZ Procedure: US OB BPP w non-stress Biophysical profile. Reason for exam: History of gastric sleeve surgery COMPARISON: None TECHNIQUE: Transabdominal imaging of the gravid uterus was obtained. FINDINGS: The roadway engineer reports a BPP of 8 out of 8. HELLEN is normal at 10.8 cm. heart rate 125 bpm. US/US OB BPP w non-stress IMPRESSION: BPP 8 out of 8. Impression dictated by: Cy Jensen Jr., D.O. 04/01/2025 3:29 PM Dictation Location: [place] [address] Electronically authenticated by: [id number] Y Date: 04/01/2025 15:29 Dictated By: Cy Jensen M.D. Signed By: 04/01/25 1531 DD/ 1529 TD/TT: Hard Tile Setter: [facility] Radiology, Radiologist, MD - 04/01/2025 [place] [address] Ultrasound Report Signed Patient: CARYL ZAMARRIPA MR#: [id number] : 1990 Acct:[id number] Age/Sex: 34 / F ADM Date: 04/01/25 Loc: [facility] 250-[address]: Rosy Quiroz Ordering Physician: Rosy Quiroz Date of Service: 04/01/25 Procedure(s): US OB BPP w non-stress Accession Number(s): [id number] cc: Rosy Quiroz; Physician,Non-Staff Shimon The [place] [address] Patient Name: CARYL ZAMARRIPA MRN: [facility]:[id number] date: 1990 Sex: F Assigned Patient Location: Current Patient Location: US Accession/Order Number: [id number] Exam Date: 04/01/2025 15:28 Report Date: 04/01/2025 15:29 At the request of: ROSY QUIROZ Procedure: US OB BPP w non-stress Biophysical profile. Reason for exam: History of gastric sleeve surgery COMPARISON: None TECHNIQUE: Transabdominal imaging of the gravid uterus was obtained. FINDINGS: The roadway engineer reports a BPP of 8 out of 8. HELLEN is normal at 10.8 cm. heart rate 125 bpm. US/US OB BPP w non-stress IMPRESSION: BPP 8 out of 8. Impression dictated by: Cy Jensen Jr., D.O. 04/01/2025 3:29 PM Dictation Location: [place] [address] Electronically authenticated by: [id number] Y Date: 04/01/2025 15:29 Dictated By: Cy Jensen M.D. Signed By: 04/01/25 1531 DD/ 1529 TD/TT: Hard Tile Setter: [facility] Radiology Study observation (narrative) [facility] OB BPP W NON-STRESS Ordered By: Radiologist Radiology on 04-01-2025 [facility] Work Phone: Urinalysis macro (dipstick) panel (U)on 03-27-2025 Bilirubin, UA Negative Negative - 4(70) +++ mg/dL [facility] Blood, UA Negative Negative - 50 Iraj/mcL [facility] Clarity, UA Clear [facility] Color, UA Yellow [facility] Glucose, UA Negative Negative - 2000(110) ++++ mg/dL [facility] Interpretation and review of laboratory results Abnormal [facility] Ketones, UA Positive Negative - 160(16) ++++ mg/dL [facility] Leukocytes, UA Few Negative - 500+++ Mari/mcL [facility] Nitrite, UA Negative Negative - Positive [facility] pH, UA 6 5 - 9 [facility] Protein, UA Few Negative - 2000(20) ++++ mg/dL [facility] Spec Grav, UA 1.03 1 - 1.03 [facility] Urobilinogen, UA 0.2 0.2 - 12 mg/dL [facility] Urinalysis macro (dipstick) panel (U)on 03-13-2025 Bilirubin, UA Negative Negative - 4(70) +++ mg/dL [facility] Blood, UA Negative Negative - 50 Iraj/mcL [facility] Clarity, UA Clear [facility] Color, UA Yellow [facility] Glucose, UA Negative Negative - 2000(110) ++++ mg/dL [facility] Interpretation and review of laboratory results Normal [facility] Ketones, UA Negative Negative - 160(16) ++++ mg/dL [facility] Leukocytes, UA Negative Negative - 500+++ Mari/mcL [facility] Nitrite, UA Negative Negative - Positive [facility] pH, UA 6 5 - 9 [facility] Protein, UA Negative Negative - 1999(20) ++++ mg/dL [facility] Spec Grav, UA 1.01 1 - 1.03 [facility] Urobilinogen, UA 1.0 0.2 - 12 mg/dL [facility] US OB FOLLOW UP TRANSABDOMIN AL [...] UA Negative Negative - 4(70) +++ mg/dL [facility] Blood, UA Negative Negative - 50 Iraj/mcL [facility] Clarity, UA Clear [facility] Color, UA Colorless [facility] Glucose, UA Negative Negative - 1999(110) ++++ mg/dL [facility] Interpretation and review of laboratory results Normal [facility] Ketones, UA Negative Negative - 160(16) ++++ mg/dL [facility] Leukocytes, UA Negative Negative - 500+++ Mari/mcL [facility] Nitrite, UA Negative Negative - Positive [facility] pH, UA 6 5 - 9 [facility] Protein, UA Negative Negative - 2000(20) ++++ mg/dL [facility] Spec Grav, UA 1.01 1 - 1.03 [facility] Urobilinogen, UA 1.0 0.2 - 12 mg/dL [facility] Glucose random or fasting- P OCTon 02-14-2025 External Glucose Fasting Or Random (Fbs) 88 [facility] Urinalysis macro (dipstick) panel (U)on 02-11-2025 Bilirubin, UA Negative Negative - 4(70) +++ mg/dL [facility] Blood, UA Negative Negative - 50 Iraj/mcL [facility] Clarity, UA Clear [facility] Color, UA Yellow [facility] Glucose, UA Positive Negative - 1999(110) ++++ mg/dL [facility] Comment on above: 500mg/dL Interpretation and review of laboratory results Abnormal [facility] Ketones, UA Negative Negative - 160(16) ++++ mg/dL [facility] Leukocytes, UA Negative Negative - 500+++ Mari/mcL [facility] Nitrite, UA Negative Negative - Positive [facility] pH, UA 6 5 - 9 [facility] Protein, UA Negative Negative - 1999(20) ++++ mg/dL [facility] Spec Grav, UA 1.005 1 - 1.03 [facility] Urobilinogen, UA 0.2 0.2 - 12 mg/dL [facility] ALL CBC WITH AUTO DIFFon BASOPHILS ABSOLUTE AUTO 0 N [facility] Basophils/100 WBC (Bld) 0.2 % 0.2 - 2.0 % [facility] Eosinophils/100 WBC (Bld) 1.1 % 0.9 - 7.0 % [facility] Erythrocyte distribution width (RBC) [Ratio] 13.6 % 11.0 - 15.0 % [facility] IMMATURE GRANULOCYTES ABS AUTO 0.04 High [facility] Immature granulocytes/100 WBC (Bld) 0.4 % 0.0 - 0.5 % [facility] Interpretation and review of laboratory results Abnormal [facility] LYMPHOCYTES ABSOLUTE AUTO 1.2 [facility] Lymphocytes/100 WBC (Bld) 12.5 % Low 20.5 - 60.0 % [facility] MCH (RBC) [Entitic mass] 33.9 pg 26. 7 - 34.0 pg [facility] MCHC (RBC) [Mass/Vol] 33.9 g/dL 29.9 - 35.2 g/dL [facility] MCV (RBC) [Entitic vol] 100 fL High 81.0 - 99.0 fL [facility] MONOCYTES ABSOLUTE AUTO 0.4 N [facility] Monocytes/100 WBC (Bld) 3.9 % 1.7 - 12.0 % [facility] NEUTROPHILS ABSOLUTE AUTO 7.7 High [facility] Neutrophils/100 WBC (Bld) 81.9 % High 43.0 - 75.0 % [facility] Platelet mean volume (Bld) [Entitic vol] 11 fL 9.5 - 13.5 fL [facility] EO # 0.1 [facility] PLT 172 [facility] RBC 3.39 Low [facility] WBC 9.4 [facility] Glucose 1h post 50g loadon 0 02-01-2025 Glucose, 1 hr PP 50GM dose 198 [facility] - Hematology and Cell countson 02-01-2025 Hematocrit (Bld) [Volume fraction] 33.9 % [facility] Hemoglobin (Bld) [Mass/Vol] 11.5 g/dL [facility] No Panel Informationon 02-01 [facility] US OB LIMITED 1+ FETUSESon 0 01-30-2025 [...] II, MD, PHD at 01-Feb-2025 10:22:21 AM [facility] Normal Not Available Comment on above: Order Comment: US OB INCOMPLETE ANATOMY Estimated Date of Delivery: 05/19/25 Gestational Age as of 01/07/2025: 21w1d Urinalysis macro (dipstick) panel (U)on 01-10-2025 Bilirubin, UA Negative Negative - 4(70) +++ mg/dL [facility] Blood, UA Negative Negative - 50 Iraj/mcL [facility] Clarity, UA Clear [facility] Color, UA Yellow [facility] Glucose, UA Negative Negative - 1999(110) ++++ mg/dL [facility] Interpretation and review of laboratory results Abnormal [facility] Ketones, UA Positive Negative - 160(16) ++++ mg/dL [facility] Leukocytes, UA Negative Negative - 500+++ Mari/mcL [facility] Nitrite, UA Negative Negative - Positive [facility] pH, UA 6 5 - 9 [facility] Protein, UA Negative Negative - 1999(20) ++++ mg/dL [facility] Spec Grav, UA 1.01 1 - 1.03 [facility] Urobilinogen, UA 0.2 0.2 - 12 mg/dL [facility] No Panel InformationOrdered By: Radiologist Radiology on 01-02-2025 [facility] Work Phone: No Panel Informationon 01-02 Radiology Study observation (narrative) [facility] US OB ANATOMYon 01-02-2025 [place] [address] Ultrasound Report Signed Patient: CARYL ZAMARRIPA MR#: [id number] : 1990 Acct:[id number] Age/Sex: 34 / F ADM Date: 01/02/25 Loc: US Attending Dr: Roscoe Diaz D.O. Ordering Physician: Roscoe Diaz D.O. Date of Service: 01/02/25 Procedure(s): US OB anatomy Accession Number(s): [id number] cc: Roscoe Diaz D.O.; Physician,Non-Staff M.D. [place] [address] Patient Name: CARYL ZAMARRIPA MRN: [facility]:[id number] date: 1990 Sex: F Assigned Patient Location: US Current Patient Location: Accession/Order Number: [id number] Exam Date: 01/02/2025 22:40 Report Date: 01/02/2025 [...] Briscoe M.D. 01/02/2025 10:47 PM Dictation Location[facility] Electronically authenticated by: [id number] Y Date: 01/02/2025 22:47 Dictated By: Suraj Briscoe D.O. Signed By: 01/02/256 DD/ 46 TD/TT: Hard Tile Setter: [facility] Radiology, Radiologist, MD - 01/02/2025 [place] [address] Ultrasound Report Signed Patient: CARYL ZAMARRIPA MR#: [id number] : 1990 Acct:[id number] Age/Sex: 34 / F ADM Date: 01/02/25 Loc: US Attending Dr: Roscoe Diaz D.O. Ordering Physician: Roscoe Diaz D.O. Date of Service: 01/02/25 Procedure(s): US OB anatomy Accession Number(s): [id number] cc: Roscoe Diaz D.O.; Physician,Non-Staff Shimon The [place] [id number] Patient Name: CARYL ZAMARRIPA MRN: [facility]:[id number] date: 1990 Sex: F Assigned Patient Location: US Current Patient Location: US Accession/Order Number: [id number] Exam Date: 01/02/2025 22:40 Report Date: 01/02/2025 [...] Briscoe M.D. 01/02/2025 10:47 PM Dictation Location: [employer] Electronically authenticated by: [id number] Y Date: 01/02/2025 22:47 Dictated By: Suraj Briscoe D.O. Signed By: 01/02/252249 DD/ 46 TD/TT: Hard Tile Setter: [facility] OB CERVICAL LENGTHon 12-20 [place] [address] Ultrasound Report Signed Patient: CARYL ZAMARRIPA MR#: [id number] : 1990 Acct:[id number] Age/Sex: 34 / F ADM Date: 01/02/25 Loc: US Attending Dr: Roscoe Diaz D.O. Ordering Physician: Roscoe Diaz D.O. Date of Service: 01/02/25 Procedure(s): US OB cervical length Accession Number(s): [id number] cc: Roscoe Diaz D.O.; Physician,Non-Staff Shimon The [place] [id number] Patient Name: CARYL ZAMARRIPA MRN: [id number]:[id number] date: 1990 Sex: F Assigned Patient Location: US Current Patient Location: US Accession/Order Number: [id number] Exam Date: 01/02/2025 22:40 Report Date: 01/02/2025 [...] Briscoe M.D. 01/02/2025 10:47 PM Dictation Location: [place] [address] Electronically authenticated by: [id number] Y Date: 01/02/2025 22:47 Dictated By: Suraj Briscoe D.O. Signed By: 01/02/25 2250 DD/ 2247 TD/TT: Hard Tile Setter: [facility] Radiology, Radiologist, MD - 01/02/2025 [place] [address] Ultrasound Report Signed Patient: CARYL ZAMARRIPA MR#: [id number] : 1990 Acct:[id number] Age/Sex: 34 / F ADM Date: 01/02/25 Loc: US Attending Dr: Roscoe Diaz D.O. Ordering Physician: Roscoe Diaz D.O. Date of Service: 01/02/25 Procedure(s): US OB cervical length Accession Number(s): [id number] cc: Roscoe Diaz D.O.; Physician,Non-Staff Shimon [address] [address] Patient Name: CARYL ZAMARRIPA MRN: [facility]:[id number] date: 1990 Sex: F Assigned Patient Location: US Current Patient Location: US Accession/Order Number: [id number] Exam Date: 01/02/2025 22:40 Report Date: 01/02/2025 [...] Briscoe M.D. 01/02/2025 10:47 PM Dictation Location: [employer] Electronically authenticated by: [id number] Y Date: 01/02/2025 22:47 Dictated By: Suraj Briscoe D.O. Signed By: 01/02/252249 DD/ 46 TD/TT: Hard Tile Setter: [facility] AFP Single Marker Casey Bangura, Serumon 12-31-2024 Ms Alpha-Fetoprotein Negative [facility] IGP,APTIMA HPV,AGE GDLNon AGE GDLN ACOG TESTING Note . [facility] Comment on above: TESTS RESULT FLAG UN ITS REF RANGE LAB Clinician Provided Cytology Information Source.............Endoc[employer] Other.............. No. of containers..01 ThinPrep Vial Age Algo ACOG Enedina... 30-65 01 FLAG LEGEND: L-Low Normal,H-High Normal,LL-Alert Low,HH-Alert High <-Panic Low,>-Panic High,A-Abnormal,AA-Critical Abnormal Performed at: 01 =G [address] [address] Rossy Odonnell MD, HPV APTIMA Negative Negative [facility] Comment on above: This nucleic acid am plification test detects fourteen high- risk HPV types (16,18,31,33,35,39,45,51,52,56,58,59,66,68) without differentiation. Performed at: =G - [facility], [place] [id number] Carbide Tool Maker: Rossy Odonnell MD, Phone: [phone] Performed at: - [facility] [address] [facility] [place], [place] [address] Carbide Tool Maker: Rossy Odonnell MD, Phone: [phone] IGP, APTIMA HPV, RFX 16/18,45 Note . [facility] Comment on above: TESTS RESULT FLAG UN ITS REF RANGE LAB DIAGNOSIS: 02 NEGATIVE FOR INTRAEPITHELIAL LESION OR MALIGNANCY. Specimen adequacy: 02 Satisfactory for evaluation. No endocervical component is identified. An endocervical component is not commonly seen in the patient. Performed by: Ronan Lucero, Senior Mobile Solutions Architect ([facility]) . 02 Note: Note 02 The Pap [...] <-Panic Low,>-Panic High,A-Abnormal,AA-Critical Abnormal Performed at: [address] [address] Rossy Odonnell MD, SPATULA-ALONE ENDOCERVIX [facility] RECURRENT VAGINITIS (HTRX)on 12-11-2024 ATOPOBIUM VAGINAE 0 [facility] ATOPOBIUM VAGINAE Not detected [facility] BVAB 2,3 (BACTERIAL VAGINOSIS ASSOCIATED BACTERIA 2, 3); MOBILUNCUS SPP 0 [facility] BVAB 2,3 (BACTERIAL VAGINOSIS ASSOCIATED BACTERIA 2, 3); MOBILUNCUS SPP Not detected [facility] HAMILTON ALBICANS, PARAPSILOSIS, TROPICALIS 0 [facility] H[place]IL[place] ALBICANS, PARAPSILOSIS, TROPICALIS Not detected [facility] [place] GLABRATA 0 [facility] H[place] GLABRATA Not detected [facility] [place] KRUSEI 0 [facility] [place] KRUSEI Not [facility] CHLAMYDIA TRACHOMATIS 0 [facility] CHLAMYDIA TRACHOMATIS Not detected N [facility] GARDNERELLA VAGINALIS 0 [facility] GARDNERELLA VAGINALIS Not detected N [facility] MEGASPHAERA (TYPES 1, 2) 0 [facility] MEGASPHAERA (TYPES 1, 2) Not detected [facility] MYCOPLASMA GENITALIUM 0 [facility] MYCOPLASMA GENITALIUM Not detected N [facility] NEISSERIA GONORRHOEAE 0 [facility] NEISSERIA GONORRHOEAE Not detected N S [facility] TRICHOMONAS VAGINALIS 0 [facility] TRICHOMONAS VAGINALIS Not detected N [facility] Urinalysis macro (dipstick) panel (U)on 12-10-2024 Bilirubin, UA Negative Negative - 4(70) +++ mg/dL [facility] Blood, UA Negative Negative - 50 Iraj/mcL [facility] Clarity, UA Clear [facility] Color, UA Yellow [facility] Glucose, UA Negative Negative - 1999(110) ++++ mg/dL [facility] Interpretation and review of laboratory results Normal [facility] Ketones, UA Negative Negative - 160(16) ++++ mg/dL [facility] Leukocytes, UA Trace Negative - 500+++ Mari/mcL [facility] Nitrite, UA Negative Negative - Positive [facility] pH, UA 6 5 - 9 [facility] Protein, UA Negative Negative - 1999(20) ++++ mg/dL [facility] Spec Grav, UA 1.01 1 - 1.03 [facility] Urobilinogen, UA 0.2 0.2 - 12 mg/dL [facility] Urinalysis macro (dipstick) panel (U)on 11-08-2024 Bilirubin, UA Negative Negative - 4(70) +++ mg/dL [facility] Blood, UA Negative Negative - 50 Iraj/mcL [facility] Clarity, UA Clear [facility] Color, UA Yellow [facility] Glucose, UA Negative Negative - 1999(110) ++++ mg/dL [facility] Interpretation and review of laboratory results Normal [facility] Ketones, UA Negative Negative - 160(16) ++++ mg/dL [facility] Leukocytes, UA Negative Negative - 500+++ Mari/mcL [facility] Nitrite, UA Negative Negative - Positive [facility] pH, UA 6 5 - 9 [facility] Protein, UA Negative Negative - 1999(20) ++++ mg/dL [facility] Spec Grav, UA 1.015 1 - 1.03 [facility] Urobilinogen, UA 0.2 0.2 - 12 mg/dL [facility], [facility] ALL CBC WITH AUTO DIFFon BASOPHILS ABSOLUTE AUTO 0 N [facility] Basophils/100 WBC (Bld) 0.4 % 0.2 - 2.0 % [facility] Eosinophils/100 WBC (Bld) 1.2 % 0.9 - 7.0 % [facility] Erythrocyte distribution width (RBC) [Ratio] 12.4 % 11.0 - 15.0 % [facility] IMMATURE GRANULOCYTES ABS AUTO 0.02 [facility] Immature granulocytes/100 WBC (Bld) 0.2 % 0.0 - 0.5 % [facility] Interpretation and review of laboratory results Abnormal [facility] LYMPHOCYTES ABSOLUTE AUTO 2.2 [facility] Lymphocytes/100 WBC (Bld) 27.2 % 20.5 - 60.0 % [facility] MCH (RBC) [Entitic mass] 33.5 pg 26. 7 - 34.0 pg [facility] MCHC (RBC) [Mass/Vol] 35.3 g/dL High 29.9 - 35.2 g/dL [facility] MCV (RBC) [Entitic vol] 94.9 fL 81.0 - 99.0 fL [facility] MONOCYTES ABSOLUTE AUTO 0.4 N [facility] Monocytes/100 WBC (Bld) 4.9 % 1.7 - 12.0 % [facility] NEUTROPHILS ABSOLUTE AUTO 5.4 [facility] Neutrophils/100 WBC (Bld) 66.1 % 43.0 - 75.0 % [facility] Platelet mean volume (Bld) [Entitic vol] 11.2 fL 9.5 - 13.5 fL [facility] TBH EO # 0.1 [facility] PLT 169 [facility] TB RBC 3.55 Low [facility] TB WBC 8.2 [facility] CBC without diffon Platelets (Bld) [#/Vol] 169 10*3/uL [facility] Rbc Mcv (Fl) By Automated Count 94.9 [facility] Drug Screen, Urineon 025 Amphetamine/Methamphetam ine Negative [facility] Barbiturates Negative [facility] Benzodiazepines Negative [facility] Cocaine Metabolite Negative [facility] Methadone Negative [facility] Opiates Negative [facility] Oxycodone Negative [facility] Phencyclidine Negative [facility] Thc Marijuana, Urine Negative [facility] Free Cell DNAon 2024 Free Cell Dna LOW RISK [facility] HBV surface Ag IA Qlon 10-19 Hepatitis B Surface Antigen Negative [facility] HCV Ab IA Qlon 10-19-2024 HCV Ab Ql (S) Non-Reactive [facility] HIV 1+2 Ab+HIV1 p24 Ag IA Ql on 10-19-2024 HIV 1&2 AB/AG Non-Reactive [facility] Hemoglobin A1con 10-19-2024 HbA1c (Bld) [Mass fraction] 5.1 % 4.0 - 6.0 % [facility] Laboratory - Hematology and Cell countson 10-19-2024 Hematocrit (Bld) [Volume fraction] 33.7 % [facility] Hemoglobin (Bld) [Mass/Vol] 11.9 g/dL [facility] No Panel Informationon 10-19 [facility] Rubella IGG immune statuson 10-19-2024 Rubella immune IgG IMMUNE [facility] T. pallidum IgG+IgM IA Ql (S )on 10-19-2024 Syphilis Non-Reactive [facility] Type and screenon 10-19-2024 Abo/Rh(D) Positive [facility] HCG ( test) Ql (U)o n 10-18-2024 Interpretation and review of laboratory results Abnormal [facility] Healthcare Preg Test, Ur Positive Negative [...] II, MD, PHD at 20-Oct-2024 07:21:51 AM [facility] Normal Not Available Comment on above: Order Comment: US OB TRANSVAGINAL No LMP recorded. Urinalysis macro (dipstick) panel (U)on 10-18-2024 Bilirubin, UA Negative Negative - 4(70) +++ mg/dL [facility] Blood, UA Negative Negative - 50 Iraj/mcL [facility] Clarity, UA Clear [facility] Color, UA Yellow [facility] Glucose, UA Negative Negative - 2000(110) ++++ mg/dL [facility] Interpretation and review of laboratory results Normal [facility] Ketones, UA Negative Negative - 160(16) ++++ mg/dL [facility] Leukocytes, UA Negative Negative - 500+++ Mari/mcL [facility] Nitrite, UA Negative Negative - Positive [facility] pH, UA 6 5 - 9 [facility] Protein, UA Negative Negative - 1999(20) ++++ mg/dL [facility] Spec Grav, UA 1.01 1 - 1.03 [facility] Urobilinogen, UA 1.0 0.2 - 12 mg/dL [facility] CNOVon 06-29-2024 CNOV Office Visit (INMAVN) CARYL ZAMARRIPA ([id number]) 1990 F Date Time Provider Department 06/29/24 12:40 PM [facility] During your visit today, we recorded the following information about you: Pulse Blood pressure Weight 65/minute 101/68 75.8 kg Berenice Zepeda APRN.CHARGE HISTOTECHNOLOGIST 06/29/2024 1:25 PM Signed Caryl Zamarripa is [...] - PHENTERMINE 37.5 MG TABLET Berenice Zepeda APRN.CHARGE HISTOTECHNOLOGIST Allergies As of Date: 06/29/2024 (No Known [...] days. BMI 29.58kg/m2 - Omeprazole Magnesium (ACID PRACTICE SPECIALIST, OMEPRAZOLE,) 20 mg cpDR Problem List As Of Date: 06/29/2024 (None) Prescriptions ordered this encounter Disp Refills Start End PHENTERMINE 37.5 MG TABLET 30 t* 0 06/29/2024 07/29/2024 Route: ORAL Sig: Take 1 tablet by mouth once daily for 30 days. BMI 29.58kg/m2 Encounter Status:Closed by BERENICE ZEPEDA on 06/29/24 [facility] CNOVon 08-23-2023 CNOV Office Visit (INMAVN) CARYL ZAMARRIPA ([id number]) 1990 F Date Time Provider Department 08/23/23 4:00 PM [facility] During your visit today, we recorded the following information about you: Pulse Blood pressure Weight Last Period 54/minute 121/77 77.6 kg 08/08/23 Berenice Zepeda APRN.CHARGE HISTOTECHNOLOGIST 08/25/2023 12:23 PM Signed Caryl Zamarripa is [...] - PHENTERMINE 37.5 MG TABLET Berenice Zepeda APRN.CHARGE HISTOTECHNOLOGIST Allergies As of Date: 08/23/2023 (No Known [...] for 2 days. - Omeprazole Magnesium (ACID PRACTICE SPECIALIST, OMEPRAZOLE,) 20 mg cpDR Problem List As [...] Status:Closed by BERENICE ZEPEDA on 08/25/23 Normal [facility] CBC W Auto Differential pane l (Bld)on 07-26-2023 Basophils (Bld) [#/Vol] 0.03 10*3/uL Normal <0.11 [facility] Comment on above: Order Comment: Speci men Type: BLOOD SPECIMEN Ordering Facility: [facility] Address: [address] [place] [address] Performed By: #### 5 7021-8 #### [facility] CLIA [id number] [address] [place] [address] Basophils/100 WBC (Bld) 0.6 % Normal [facility] Comment on above: Order Comment: Speci men Type: BLOOD SPECIMEN Ordering Facility: [facility] Address: [address] [place] [address] Performed By: #### 5 7021-8 #### [facility] CLIA [id number] [address] [place] [address]322 Differential cell count method Nom (Bld) Auto Normal [facility] Comment on above: Order Comment: Speci men Type: BLOOD SPECIMEN Ordering Facility: [facility] Address: [address] [place] [address] Performed By: #### 5 7021-8 #### [facility] CLIA [id number] [address] [place] [address]18 Eosinophils (Bld) [#/Vol] 0.13 10*3/uL Normal <0.46 [facility] Comment on above: Order Comment: Speci men Type: BLOOD SPECIMEN Ordering Facility: [facility] Address: [address] [place] [address] Performed By: #### 5 7021-8 #### [facility] CLIA [id number] [address] [place] [address] Eosinophils/100 WBC (Bld) 2.6 % Normal [facility] Comment on above: Order Comment: Speci men Type: BLOOD SPECIMEN Ordering Facility: [facility] Address: [address] [place] [address] Performed By: #### 5 7021-8 #### [facility] CLIA [id number] [address] [place] [address]26 Erythrocyte distribution width (RBC) [Ratio] 12.1 % Normal 11.5-15.0 [facility] Comment on above: Order Comment: Speci men Type: BLOOD SPECIMEN Ordering Facility: [facility] Address: [address] [place] [address] Performed By: #### 5 7021-8 #### [facility] CLIA [id number] [address] [place] [address]7949 Hematocrit (Bld) [Volume fraction] 37.0 % Normal 36.0-46.0 [facility] Comment on above: Order Comment: Speci men Type: BLOOD SPECIMEN Ordering Facility: [facility] Address: [address] [place] [address] Performed By: #### 5 7021-8 #### [facility] CLIA [id number] [address] [place] [address] 15110 Hemoglobin (Bld) [Mass/Vol] 12.6 g/dL Normal 11.5-15.5 [facility] Comment on above: Order Comment: Speci men Type: BLOOD SPECIMEN Ordering Facility: [facility] Address: [address] [place] [address] Performed By: #### 5 7021-8 #### [facility] CLIA [id number] [address] [place] [address]46 Immature granulocytes (Bld) [#/Vol] 10*3/uL Normal <0.10 [facility] Comment on above: Order Comment: Speci men Type: BLOOD SPECIMEN Ordering Facility: [facility] Address: [address] [place] [address] Performed By: #### 5 7021-8 #### [facility] CLIA [id number] [address] [place] [address] 83616 Immature granulocytes/100 WBC (Bld) 0.2 % Normal [facility] Comment on above: Order Comment: Speci men Type: BLOOD SPECIMEN Ordering Facility: [facility] Address: [address] [place] [address] Performed By: #### 5 7021-8 #### [facility] CLIA [id number] [address] [place] [address] 01678 Lymphocytes (Bld) [#/Vol] 1.57 10*3/uL Normal 1.00-4.00 [facility] Comment on above: Order Comment: Speci men Type: BLOOD SPECIMEN Ordering Facility: [facility] Address: [address] [place] [address] Performed By: #### 5 7021-8 #### [facility] CLIA [id number] [address] [place] [address] 85812 Lymphocytes/100 WBC (Bld) 31.2 % Normal [facility] Comment on above: Order Comment: Speci men Type: BLOOD SPECIMEN Ordering Facility: [facility] Address: [address] [place] [address] Performed By: #### 5 7021-8 #### [facility] CLIA [id number] [address] [place] [address] 14541 MCH (RBC) [Entitic mass] 32.2 pg Normal 26.0-34.0 [facility] Comment on above: Order Comment: Speci men Type: BLOOD SPECIMEN Ordering Facility: [facility] Address: [address] [place] [address] Performed By: #### 5 7021-8 #### [facility] CLIA [id number] [address] [place] [address]43 MCHC (RBC) [Mass/Vol] 34.1 g/dL Normal 30.5-36.0 [facility] Comment on above: Order Comment: Speci men Type: BLOOD SPECIMEN Ordering Facility: [facility] Address: [address] [place] [address] Performed By: #### 5 7021-8 #### [facility] CLIA [id number] [address] [place] [address] 88061 MCV (RBC) [Entitic vol] 94.6 fL Normal 80.0-100.0 [facility] Comment on above: Order Comment: Speci men Type: BLOOD SPECIMEN Ordering Facility: [facility] Address: [address] [place] [address] Performed By: #### 5 7021-8 #### [facility] CLIA [id number] [address] [place] [address] 21573 Monocytes (Bld) [#/Vol] 0.32 10*3/uL Normal <0.87 [facility] Comment on above: Order Comment: Speci men Type: BLOOD SPECIMEN Ordering Facility: [facility] Address: [address] [place] [address] Performed By: #### 5 7021-8 #### [facility] CLIA [id number] [address] [place] [address] 06952 Monocytes/100 WBC (Bld) 6.3 % Normal [facility] Comment on above: Order Comment: Speci men Type: BLOOD SPECIMEN Ordering Facility: [facility] Address: [address] [place] [address] Performed By: #### 5 7021-8 #### [facility] CLIA [id number] [address] [place] [address] 74291 Neutrophils (Bld) [#/Vol] 2.98 10*3/uL Normal 1.45-7.50 [facility] Comment on above: Order Comment: Speci men Type: BLOOD SPECIMEN Ordering Facility: [facility] Address: [address] [place] [address] Performed By: #### 5 7021-8 #### [facility] CLIA [id number] [address] [place] [address] 99056 Neutrophils/100 WBC (Bld) 59.1 % Normal [facility] Comment on above: Order Comment: Speci men Type: BLOOD SPECIMEN Ordering Facility: [facility] Address: [address] [place] [address] Performed By: #### 5 7021-8 #### [facility] CLIA [id number] [address] [place] [address] 55482 Nucleated RBC (Bld) [#/Vol] 10*3/uL Normal <0.01 [facility] Comment on above: Order Comment: Speci men Type: BLOOD SPECIMEN Ordering Facility: [facility] Address: [address] [place] [address] Performed By: #### 5 7021-8 #### [facility] CLIA [id number] [address] [place] [address] 22796 Nucleated RBC/100 WBC (Bld) [Ratio] 0.0 /100 WBC Normal [facility] Comment on above: Order Comment: Speci men Type: BLOOD SPECIMEN Ordering Facility: [facility] Address: [address] [place] [address] Performed By: #### 5 7021-8 #### [facility] CLIA [id number] [address] [place] [address] 72875 Platelet mean volume (Bld) [Entitic vol] 10.6 fL Normal 9.0-12.7 [facility] Comment on above: Order Comment: Speci men Type: BLOOD SPECIMEN Ordering Facility: [facility] Address: [address] [place] [address] Performed By: #### 5 7021-8 #### [facility] CLIA [id number] [address] [place] [address] 83930 Platelets (Bld) [#/Vol] 226 10*3/uL Normal 150-400 [facility] Comment on above: Order Comment: Speci men Type: BLOOD SPECIMEN Ordering Facility: [facility] Address: [address] [place] [address] Performed By: #### 5 7021-8 #### [facility] CLIA [id number] [address] [place] [address] RBC (Bld) [#/Vol] 3.91 10*6/uL Normal 3.90-5.20 [facility] Comment on above: Order Comment: Speci men Type: BLOOD SPECIMEN Ordering Facility: [facility] Address: [address] [place] [address] Performed By: #### 5 7021-8 #### [facility] CLIA [id number] [address] [place] [address] 88641 WBC (Bld) [#/Vol] 5.04 10*3/uL Normal 3.70-11.00 [facility] Comment on above: Order Comment: Speci men Type: BLOOD SPECIMEN Ordering Facility: [facility] Address: [address] [place] [address] Performed By: #### 5 7021-8 #### [facility] CLIA [id number] [address] [place] [address] 35150 Comprehensive metabolic 2000 panelon 07-26-2023 Albumin [Mass/Vol] 4.4 g/dL Normal 3.9-4.9 [facility] Comment on above: Order Comment: Speci men Type: BLOOD SPECIMEN Ordering Facility: [facility] Address: [address] [place] [address] Performed By: #### 2 4323-8 #### [facility] CLIA [id number] [address] [place] [address] 14376 ALP [Catalytic activity/Vol] 40 U/L Normal 34-123 [facility] Comment on above: Order Comment: Speci men Type: BLOOD SPECIMEN Ordering Facility: [facility] Address: [address] [place] [address] Performed By: #### 2 4323-8 #### [facility] CLIA [id number] [address] [place] [address] 16366 ALT [Catalytic activity/Vol] 5 U/L Low 7-38 [facility] Comment on above: Order Comment: Speci men Type: BLOOD SPECIMEN Ordering Facility: [facility] Address: [address] [place] [address] Performed By: #### 2 4323-8 #### [facility] CLIA [id number] [address] [place] [address] Anion gap [Moles/Vol] 8 mmol/L Low 9-18 [facility] Comment on above: Order Comment: Speci men Type: BLOOD SPECIMEN Ordering Facility: [facility] Address: [address] [place] [id number] Performed By: #### 2 4323-8 #### [facility] CLIA [id number] [address] [place] [address] 74777 AST [Catalytic activity/Vol] 7 U/L Low 13-35 [facility] Comment on above: Order Comment: Speci men Type: BLOOD SPECIMEN Ordering Facility: [facility] Address: [address] [place] [address] Performed By: #### 2 4323-8 #### [facility] CLIA [id number] [address] [place] [address] 35258 Bilirubin [Mass/Vol] 0.6 mg/dL Normal 0.2-1.3 [facility] Comment on above: Order Comment: Speci men Type: BLOOD SPECIMEN Ordering Facility: [facility] Address: [address] [place] [id number] Performed By: #### 2 4323-8 #### [facility] CLIA [id number] [address] [place] [address] 63422 Calcium [Mass/Vol] 9.5 mg/dL Normal 8.5-10.2 [facility] Comment on above: Order Comment: Speci men Type: BLOOD SPECIMEN Ordering Facility: [facility] Address: [address] [place] [id number] Performed By: #### 2 4323-8 #### [facility] CLIA [id number] [address] [place] [address] 63160 Chloride [Moles/Vol] 105 mmol/L Normal 97-105 [facility] Comment on above: Order Comment: Speci men Type: BLOOD SPECIMEN Ordering Facility: [facility] Address: [address] [place] [id number] Performed By: #### 2 4323-8 #### [facility] CLIA [id number] [address] [place] [address] 61358 CO2 [Moles/Vol] 27 mmol/L Normal 22-30 [facility] Comment on above: Order Comment: Speci men Type: BLOOD SPECIMEN Ordering Facility: [facility] Address: [address] [place] [address] Performed By: #### 2 4323-8 #### [facility] CLIA [id number] [address] [place] [address] 30749 Creatinine [Mass/Vol] 0.76 mg/dL Normal 0.58-0.96 [facility] Comment on above: Order Comment: Speci men Type: BLOOD SPECIMEN Ordering Facility: [facility] Address: [address] [place] [address] Performed By: #### 2 4323-8 #### [facility] CLIA [id number] [address] [place] [address] 86525 Creatinine and Glomerular filtration rate.predicted panel (S/P/Bld) 108 mL/min/1.73m??? Normal >=60 [facility] Comment on above: Order Comment: Speci men Type: BLOOD SPECIMEN Ordering Facility: [facility] Address: [address] [place] [address] Result Comment: Erma mated Glomerular Filtration Rate [...] GFR. Performed By: #### 2 4323-8 #### [facility] CLIA [id number] [address] [place] [address] 15181 Glucose [Mass/Vol] 93 mg/dL Normal 74-99 [facility] Comment on above: Order Comment: Speci men Type: BLOOD SPECIMEN Ordering Facility: [facility] Address: [address] [place] [address] Result Comment: The [place] Diabetes [employer] (ADA) provides guidance for cutoff [...] Standards of Medical Care in Diabetes 2016, [place] [employer]. Diabetes Care. 2016.39(Suppl 1). Performed By: #### 2 4323-8 #### [facility] CLIA [id number] [address] [place] [address] 59995 Potassium [Moles/Vol] 4.2 mmol/L Normal 3.7-5.1 [facility] Comment on above: Order Comment: Speci men Type: BLOOD SPECIMEN Ordering Facility: [facility] Address: [address] [place] [address] Performed By: #### 2 4323-8 #### [facility] CLIA [id number] [address] [place] [address] 57452 Protein [Mass/Vol] 7.2 g/dL Normal 6.3-8.0 [facility] Comment on above: Order Comment: Speci men Type: BLOOD SPECIMEN Ordering Facility: [facility] Address: [address] [place] [address] Performed By: #### 2 4323-8 #### [facility] CLIA [id number] [address] [place] [address] 75152 Sodium [Moles/Vol] 140 mmol/L Normal 136-144 [facility] Comment on above: Order Comment: Speci men Type: BLOOD SPECIMEN Ordering Facility: [facility] Address: [address] [place] [address] Performed By: #### 2 4323-8 #### [facility] CLIA [id number] [address] [place] [address] 20276 Urea nitrogen [Mass/Vol] 11 mg/dL Normal 7-21 [facility] Comment on above: Order Comment: Speci men Type: BLOOD SPECIMEN Ordering Facility: [facility] Address: [address] [place] [address] Performed By: #### 2 4323-8 #### [facility] CLIA [id number] [address] [place] [address] 64698 HBV surface Ab Ql (S)on HBV surface Ab Qn (S) <8.00 Normal [facility] Comment on above: Order Comment: Speci men Type: BLOOD SPECIMEN Ordering Facility: [facility] Address: [address] [place] [address] Result Comment: <8 m IU/mL: No serological evidence of immunity to Hepatitis B Virus. >/= 8 to <12 mIU/mL: No serological evidence of immunity to Hepatitis B Virus. >/= 12 mIU/mL: Consistent with serological evidence of immunity to Hepatitis B Virus. Performed By: #### 2 2322-2 #### [facility] CLIA [id number] [address] [place] [address] [place] HBV surface Ab Ser Qlon HBV surface Ab Ql (S) Negative Normal [facility] Comment on above: Order Comment: Speci men Type: BLOOD SPECIMEN Ordering Facility: [facility] Address: [address] [place] [address] Result Comment: No s erological evidence of immunity to Hepatitis B Virus. Performed By: #### 2 2322-2 #### [facility] CLIA [id number] [address] [place] [address] [place] HbA1c (Bld)on 07-26-2023 Average glucose Estimated from glycated hemoglobin (Bld) [Mass/Vol] 94 mg/dL Normal [facility] Comment on above: Order Comment: Mary head Type: BLOOD SPECIMEN Ordering Facility: [facility] Address: [address] [place] [address] Result Comment: eAG: (Estimated average glucose) is a calculated value from HgbA1c and is medical sales representative of the average blood glucose level in the last 2-3 month period. Performed By: #### 5 5454-3 #### [facility] CLIA [id number] [address] [place] [address] [place] HbA1c (Bld) [Mass fraction] 4.9 % Normal 4.3-5.6 [facility] Comment on above: Order Comment: Mary head Type: BLOOD SPECIMEN Ordering Facility: [facility] Address: [address] [place] [address] Result Comment: [place] Diabetes Association guidelines indicate that patients with HgbA1c in the range 5.7-6.4% are at increased risk for development of diabetes, and intervention by lifestyle modification may be beneficial. HgbA1c greater or equal to 6.5% is considered diagnostic of diabetes. Performed By: #### 5 5454-3 #### [facility] CLIA [id number] [address] [place] [address] [place] Lipid 1996 panelon 3 Cholesterol [Mass/Vol] 172 mg/dL Normal <200 [facility] Comment on above: Order Comment: Mary head Type: BLOOD SPECIMEN Ordering Facility: [facility] Address: [address] [place] [address] Result Comment: <200 mg/dL, Desirable 200-239 mg/dL, Borderline high >239 mg/dL, High Performed By: #### 2 4331-1 #### [facility] CLIA [id number] [address] [place] [address] [place] [facility] CLIA [id number] [address] [place] [address] Cholesterol in HDL [Mass/Vol] 58 mg/dL Normal >39 [facility] Comment on above: Order Comment: Speci men Type: BLOOD SPECIMEN Ordering Facility: [facility] Address: [address] [place] [address] Result Comment: 40-5 9 mg/dL, Acceptable >59 mg/dL, High: Negative risk factor for coronary heart disease <40 mg/dL, Low: Positive risk factor for coronary heart disease Performed By: #### 2 4331-1 #### [facility] CLIA [id number] [address] [facility] CLIA [id number] [address] [place] [address] Cholesterol in LDL [Mass/Vol] 103 mg/dL High <100 [facility] Comment on above: Order Comment: Speci men Type: BLOOD SPECIMEN Ordering Facility: [facility] Address: [address] [place] [address] Result Comment: <100 mg/dL, Optimal 100-129 mg/dL, Near optimal/above optimal 130-159 mg/dL, Borderline high 160-189 mg/dL, High >189 mg/dL, Very high Secondary prevention optimal LDL Cholesterol levels are recommended to be < 70 mg/dL Performed By: #### 2 4331-1 #### [facility] CLIA [id number] [address] [place] [address] LAB CLIA [id number] [address] [place] [address] Cholesterol in LDL/Cholesterol in HDL [Mass ratio] 1.78 {ratio} Normal <2.54 [facility] Comment on above: Order Comment: Micki men Type: BLOOD SPECIMEN Ordering Facility: [facility] Address: [address] [place] [address] Result Comment: Refe rence: 1. National Cholesterol Education Program ATP III Guideline At-A-Glance Quick Desk Reference: National Heart, Lung, and Blood [place]. National Institutes of Health. 2001: NIH Publication No. 01-3305. 2. An International Atherosclerosis Society position paper: global recommendations for the management of dyslipidemia: executive summary, Atherosclerosis. 2014: 232(2):410-413. Performed By: #### 2 4331-1 #### [facility] CLIA [id number] [address] [place] [id number] [facility] CLIA [id number] [address] [place] [address] Cholesterol in VLDL [Mass/Vol] 11 mg/dL Normal <30 [facility] Comment on above: Order Comment: Speci men Type: BLOOD SPECIMEN Ordering Facility: [facility] Address: [address] [place] [address] Performed By: #### 2 4331-1 #### [facility] CLIA [id number] [address] [facility] CLIA [id number] [address] [place] [address]68 Cholesterol non HDL [Mass/Vol] 114 mg/dL Normal <130 [facility] Comment on above: Order Comment: Speci men Type: BLOOD SPECIMEN Ordering Facility: [facility] Address: [address] [place] [address] Result Comment: <130 mg/dL, Optimal 130-159 mg/dL, Near optimal/above optimal 160-189 mg/dL, Borderline high 190-219 mg/dL, High >219 mg/dL, Very high Secondary prevention optimal non HDL Cholesterol levels are recommended to be <100 mg/dL Performed By: #### 2 4331-1 #### [facility] CLIA [id number] [facility] [place] [id number] [facility] CLIA [id number] [address] [place] [address] Cholesterol.total/Choles terol in HDL [Mass ratio] 2.97 {ratio} Normal <5.10 [facility] Comment on above: Order Comment: Speci men Type: BLOOD SPECIMEN Ordering Facility: [facility] Address: [address] [place] [address] Performed By: #### 2 4331-1 #### [facility] CLIA [id number] [address] [facility] CLIA [id number] [address] [place] [id number] FASTING TIME 12 hrs Normal [facility] Comment on above: Order Comment: Speci men Type: BLOOD SPECIMEN Ordering Facility: [facility] Address: [address] [place] [address] Performed By: #### 2 4331-1 #### [facility] CLIA [id number] [address] [place] [address] LAB CLIA [id number] [address] [place] [address] Triglyceride [Mass/Vol] 53 mg/dL Normal <150 [facility] Comment on above: Order Comment: Speci men Type: BLOOD SPECIMEN Ordering Facility: [facility] Address: [address] [place] [address] Result Comment: <150 mg/dL, Normal 150-199 mg/dL, Borderline high 200-499 mg/dL, High >499 mg/dL, Very high Performed By: #### 2 4331-1 #### [facility] CLIA [id number] [address] [place] [address] LAB CLIA [id number] [address] [place], [place] [id number] Jemima 07-21-2023 CNOV Office Visit (INMAVN) CARYL ZAMARRIPA ([id number]) 1990 F Date Time Provider Department 07/21/23 4:20 PM BERENICE ZEPEDA During your visit today, we recorded the following information about you: Pulse Blood pressure Weight Height 60/minute 112/74 80.1 kg 1.612 m Last Period 07/09/23 Berenice Zepeda, BRETT.CHARGE HISTOTECHNOLOGIST 07/22/2023 10:16 AM Signed Caryl Zamarripa is a 32 year old female here today for review of established medical problems as well as comprehensive physical examination. Obesity S/p gastric sleeve surgery in 03/[address] 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 MEDICATIONS Omeprazole Magnesium (ACID PRACTICE SPECIALIST, OMEPRAZOLE,) 20 mg cpDR Phentermine HCl 37.5 [...] No history of dysuria, frequency or incontinence HONEY EXTRACTOR: Negative for abnormal vaginal bleeding, abnormal vaginal [...] and symmetric. Sensation grossly intact. Breast/Pelvic: Per HONEY EXTRACTOR ASSESSMENT/PLAN: 1. Routine adult health maintenance - ICD9: V70.0, ICD10: Z00.00 (primary diagnosis) - Counseled on healthy diet and regular exercise - Calcium intake with supplements or by diet of 1000 mg/day for under 50, 6826-9251 mg/day for 50+ - Discussed need and benefit for weight loss. BMI 30.81 kg/(m2) - HGB A1C - COMP METABOLIC PANEL - LIPID PANEL BASIC - CBC + DIFF 2. IFG (impaired fasting glucose) - ICD9: 790.21, ICD10: (more content not included)... Normal [facility] Basophils Auto (Bld) [#/Vol] Ordered By: Reena Breaux on 10-11-2022 Basophils (Bld) [#/Vol] 0.0 10*3/uL 0.0-0.2 [facility] Basophils/100 WBC Auto (Bld) Ordered By: Reena Breaux on 10-11-2022 Basophils/100 WBC (Bld) 0.7 % . [facility] Body fluid albumin measureme nt (mass/volume)Ordered By: Reena Breaux on 10-11-2022 Albumin (Body fld) [Mass/Vol] 4.0 g/dL 3.2-5.[address] [facility] [address] biopsyOrdered By: Reena malhotra on 10-11-2022 Transferrin [Mass/Vol] 206 mg/dL 180-380 [facility] Complete Blood Count Auto Di ffon 10-11-2022 Basophils (Bld) [#/Vol] 0.0 10*3/uL Normal 0.0-0.2 [facility] Comment on above: Result Comment: PERF ORMED BY: [place] [address] PATHOLOGIST DIRECTOR NICU AMANDA CALLE M.D. Performed By: #### P HOS, [id number], CMP, CBC, [id number], FE PRO, MG #### [facility] [address] [place] [address] #### VITB1 #### [facility] , Basophils/100 WBC (Bld) 0.7 % Normal . [facility] Comment on above: Performed By: #### P HOS, [id number], CMP, CBC, [id number], FE PRO, MG #### [facility] [address] [place] [address] #### VITB1 #### [facility] , Eosinophils (Bld) [#/Vol] 0.1 10*3/uL Normal 0.0-0.45 [facility] Comment on above: Performed By: #### P HOS, [id number], CMP, CBC, [id number], FE PRO, MG #### [facility] [address] [place] [address] #### VITB1 #### [facility] , Eosinophils/100 WBC (Bld) 1.7 % Normal . [facility] Comment on above: Performed By: #### P HOS, [id number], CMP, CBC, [id number], FE PRO, MG #### [facility] [address] [place] [address] #### VITB1 #### [facility] , Erythrocyte distribution width (RBC) [Ratio] 12.9 % Normal 11.9-15.3 [facility] Comment on above: Performed By: #### P HOS, [id number], CMP, CBC, [id number], FE PRO, MG #### [address] #### VITB1 #### [facility] , Hematocrit (Bld) [Volume fraction] 39.1 % Normal 34.0-46.4 [facility] Comment on above: Performed By: #### P HOS, [id number], CMP, CBC, [id number], FE PRO, MG #### [facility] [address] [place] [address] [place] #### VITB1 #### [facility] , Hemoglobin (Bld) [Mass/Vol] 13.1 g/dL Normal 11.8-15.4 [facility] Comment on above: Performed By: #### P HOS, [id number], CMP, CBC, [id number], FE PRO, MG #### [place] [address] [place] #### VITB1 #### [facility] , Lymphocytes (Bld) [#/Vol] 2.7 10*3/uL Normal 1.00-4.8 [facility] Comment on above: Performed By: #### P HOS, [id number], CMP, CBC, [id number], FE PRO, MG #### [address] #### VITB1 #### [facility] , Lymphocytes/100 WBC (Bld) 39.8 % Normal . [facility] Comment on above: Performed By: #### P HOS, [id number], CMP, CBC, [id number], FE PRO, MG #### [facility] [address] [place] [address] #### VITB1 #### [facility] , MCH (RBC) [Entitic mass] 31.9 pg Normal 24.7-34.3 [facility] Comment on above: Performed By: #### P HOS, [id number], CMP, CBC, [id number], FE PRO, MG #### [address] #### VITB1 #### [facility] , MCV (RBC) [Entitic vol] 95.3 fL Normal 80-100 [facility] Comment on above: Performed By: #### P HOS, [id number], CMP, CBC, [id number], FE PRO, MG #### [facility] [address] [place] [address] [place] #### VITB1 #### [facility] , Mean Corpuscular HGB Conc 33.5 g/dL Normal 32.0-35.0 [facility] Comment on above: Performed By: #### P HOS, [id number], CMP, CBC, [id number], FE PRO, MG #### [address] #### VITB1 #### [facility] , Monocytes (Bld) [#/Vol] 0.3 10*3/uL Normal 0.0-0.8 [facility] Comment on above: Performed By: #### P HOS, [id number], CMP, CBC, [id number], FE PRO, MG #### [facility] [address] [place] [address] #### VITB1 #### [facility] , Monocytes/100 WBC (Bld) 5.1 % Normal . [facility] Comment on above: Performed By: #### P HOS, [id number], CMP, CBC, [id number], FE PRO, MG #### [facility] [address] [place] [address] #### VITB1 #### [facility] , Neutrophils (Bld) [#/Vol] 3.6 10*3/uL Normal 1.8-7.7 [facility] Comment on above: Performed By: #### P HOS, [id number], CMP, CBC, [id number], FE PRO, MG #### [facility] [address] [place] [address] #### VITB1 #### [facility] , Neutrophils/100 WBC (Bld) 52.7 % Normal . [facility] Comment on above: Performed By: #### P HOS, [id number], CMP, CBC, [id number], FE PRO, MG #### [facility] [address] [place] [address] [place] #### VITB1 #### [facility] , NRBC% 0.0 /100{WBC} Normal 0-0.5 [facility] Comment on above: Performed By: #### P HOS, [id number], CMP, CBC, [id number], FE PRO, MG #### [facility] [address] [place] [address] #### VITB1 #### [facility] , Platelet mean volume (Bld) [Entitic vol] 9.8 fL Normal 6.3-10.7 [facility] Comment on above: Performed By: #### P HOS, [id number], CMP, CBC, [id number], FE PRO, MG #### [facility] [address] [place] [address] [place] #### VITB1 #### [facility] , Platelets (Bld) [#/Vol] 226 10*3/uL Normal 150-450 [facility] Comment on above: Performed By: #### P HOS, [id number], CMP, CBC, [id number], FE PRO, MG #### [facility] [address] [place] [address] [place] #### VITB1 #### [facility] , RBC (Bld) [#/Vol] 4.11 10*6/uL Normal 3.60-5.00 [facility] Comment on above: Performed By: #### P HOS, [id number], CMP, CBC, [id number], FE PRO, MG #### [facility] [address] [place] [address] #### VITB1 #### [facility] , WBC (Bld) [#/Vol] 6.8 10*3/uL Normal 3.8-11.6 [facility] Comment on above: Performed By: #### P HOS, [id number], CMP, CBC, [id number], FE PRO, MG #### [facility] [address] [place] [address] [place] #### VITB1 #### [facility] , Comprehensive Metabolic Pane nicole 10-11-2022 Albumin [Mass/Vol] 4.0 g/dL Normal 3.2-5.5 [facility] Comment on above: Performed By: #### P HOS, [id number], CMP, CBC, [id number], FE PRO, MG #### [facility] [address] [place] [address] [place] #### VITB1 #### [facility] , Albumin/Globulin [Mass ratio] 1.4 {ratio} Normal [facility] Comment on above: Performed By: #### P HOS, [id number], CMP, CBC, [id number], FE PRO, MG #### [facility] [address] [place] [address] #### VITB1 #### [facility] , ALP [Catalytic activity/Vol] 36 U/L Normal 32-92 [facility] Comment on above: Performed By: #### P HOS, [id number], CMP, CBC, [id number], FE PRO, MG #### [facility] [address] [place] [address] #### VITB1 #### [facility] , ALT [Catalytic activity/Vol] 12 U/L Normal 10-60 [facility] Comment on above: Performed By: #### P HOS, [id number], CMP, CBC, [id number], FE PRO, MG #### [facility] [address] [place] [address] #### VITB1 #### [facility] , Anion gap [Moles/Vol] 11.6 mmol/L Normal 6.0-15.0 [facility] Comment on above: Performed By: #### P HOS, [id number], CMP, CBC, [id number], FE PRO, MG #### [facility] [address] [place] [address] [place] #### VITB1 #### [facility] , AST [Catalytic activity/Vol] 11 U/L Normal 10-42 [facility] Comment on above: Performed By: #### P HOS, [id number], CMP, CBC, [id number], FE PRO, MG #### [facility] [address] [place] [address] [place] #### VITB1 #### [facility] , Bilirubin [Mass/Vol] 0.3 mg/dL Normal 0.3-1.2 [facility] Comment on above: Performed By: #### P HOS, [id number], CMP, CBC, [id number], FE PRO, MG #### [facility] [address] [place] [address] [place] #### VITB1 #### [facility] , Calcium [Mass/Vol] 9.3 mg/dL Normal 8.2-10.2 [facility] Comment on above: Performed By: #### P HOS, [id number], CMP, CBC, [id number], FE PRO, MG #### [facility] [address] [place] [address] #### VITB1 #### [facility] , Chloride [Moles/Vol] 103 mmol/L Normal 95-114 [facility] Comment on above: Performed By: #### P HOS, [id number], CMP, CBC, [id number], FE PRO, MG #### [facility] [address] [place] [address] #### VITB1 #### [facility] , CO2 [Moles/Vol] 26.4 mmol/L Normal 22.0-30.0 [facility] Comment on above: Performed By: #### P HOS, [id number], CMP, CBC, [id number], FE PRO, MG #### [facility] [address] [place] [address] [place] #### VITB1 #### [facility] , Creatinine [Mass/Vol] 0.70 mg/dL Normal 0.44-1.03 [facility] Comment on above: Performed By: #### P HOS, [id number], CMP, CBC, [id number], FE PRO, MG #### [facility] [address] [place] [address] [place] #### VITB1 #### [facility] , Estimated GFR ( Christiano > 60 Normal [facility] Comment on above: Result Comment: GFR estimated reference range: According to KDOQI guidelines, <60 ml/min/1.73m2 is sufficient to diagnose a patient with chronic kidney disease. Performed By: #### P HOS, [id number], CMP, CBC, [id number], FE PRO, MG #### [address] #### VITB1 #### [facility] , Estimated GFR (Non- Am > 60 [facility] Comment on above: Performed By: #### P HOS, [id number], CMP, CBC, [id number], FE PRO, MG #### [address] #### VITB1 #### [facility] , Globulin (S) [Mass/Vol] 2.8 g/dL Normal [facility] Comment on above: Performed By: #### P HOS, [id number], CMP, CBC, [id number], FE PRO, MG #### [address] #### VITB1 #### [facility] , Glucose [Mass/Vol] 85 mg/dL Normal 70-100 [facility] Comment on above: Result Comment: [place] Glucose Reference Range is dependent on time and content of last meal. Glucose of more than 200 mg/dL in a nonstressed, ambulatory subject supports the diagnosis of Diabetes Mellitus. ADA recommended reference range Performed By: #### P HOS, [id number], CMP, CBC, [id number], FE PRO, MG #### [address] #### VITB1 #### [facility] , Potassium [Moles/Vol] 4.0 mmol/L Normal 3.5-5.1 [facility] Comment on above: Performed By: #### P HOS, [id number], CMP, CBC, [id number], FE PRO, MG #### [address] #### VITB1 #### [facility] , Protein [Mass/Vol] 6.8 g/dL Normal 6.1-7.9 [facility] Comment on above: Performed By: #### P HOS, [id number], CMP, CBC, [id number], FE PRO, MG #### [facility] [address] [place] [address] [place] #### VITB1 #### [facility] , Sodium [Moles/Vol] 137 mmol/L Normal 136-146 [facility] Comment on above: Performed By: #### P HOS, [id number], CMP, CBC, [id number], FE PRO, MG #### [facility] [address] [place] [address] #### VITB1 #### [facility] , Urea nitrogen [Mass/Vol] 11 mg/dL Normal 9-23 [facility] Comment on above: Performed By: #### P HOS, [id number], CMP, CBC, [id number], FE PRO, MG #### [facility] [address] [place] [address] [place] #### VITB1 #### [facility] , Creatinine and Glomerular fi ltration rate.predicted panel (S/P/Bld)Ordered By: Reena Breaux on 10-11-2022 Creatinine [Mass/Vol] 0.70 mg/dL 0.44-1.03 [facility] Eosinophils Auto (Bld) [#/Vo l]Ordered By: Reena Breaux on 10-11-2022 Eosinophils (Bld) [#/Vol] 0.1 10*3/uL 0.0-0.45 [facility] Eosinophils/100 WBC Auto (Bl d)Ordered By: Reena Breaux on 10-11-2022 Eosinophils/100 WBC (Bld) 1.7 % . [facility] Erythrocyte distribution wid th Auto (RBC) [Ratio]Ordered By: Reena Breaux on 10-11-2022 Erythrocyte distribution width (RBC) [Ratio] 12.9 % 11.9-15.3 [facility] Estimated glomerular filtrat ion rate (GFR) non- AmericanOrdered By: Reena Breaux on 10-11-2022 GFR/1.73 sq M.predicted among non-blacks MDRD (S/P/Bld) [Vol rate/Area] > 60 mL/Min [facility] FE PROon 10-11-2022 % Iron Saturation 24.0 % Normal 20-50 [facility] Comment on above: Performed By: #### P HOS, [id number], CMP, CBC, [id number], FE PRO, MG #### [facility] [address] [place] [address] [place] #### VITB1 #### [facility] , Ferritin [Mass/Vol] 29.2 ng/mL Normal 11-306.8 [facility] Comment on above: Performed By: #### P HOS, [id number], CMP, CBC, [id number], FE PRO, MG #### [facility] [address] [place] [address] [place] #### VITB1 #### [facility] , Iron [Mass/Vol] 69 ug/dL Normal 40-150 [facility] Comment on above: Performed By: #### P HOS, [id number], CMP, CBC, [id number], FE PRO, MG #### [facility] [address] [place] [address] [place] #### VITB1 #### [facility] , Total Iron Binding Capacity 288 ug/dL Normal 255-450 [facility] Comment on above: Performed By: #### P HOS, [id number], CMP, CBC, [id number], FE PRO, MG #### [facility] [address] [place] [address] [place] #### VITB1 #### [facility] , Transferrin [Mass/Vol] 206 mg/dL Normal 180-380 [facility] Comment on above: Performed By: #### P HOS, [id number], CMP, CBC, [id number], FE PRO, MG #### [facility] [address] #### VITB1 #### [facility] , Ferritin [Mass/volume] in Se rum or PlasmaOrdered By: Reena Breaux on 10-11-2022 Ferritin [Mass/Vol] 29.2 ng/mL 11-306.8 [facility] Folate [Mass/volume] in Seru m or PlasmaOrdered By: Reena Breaux on 10-11-2022 Folate [Mass/Vol] 22.2 ng/mL >5.9 [facility] Comment on above: Folate reference ran ge: >5.9 ng/mlThe WHO technical consultation on folate and vitamin [id number] has determined that folate concentrations lessthan 4 ng/ml are considered deficient. Globulin Calc (S) [Mass/Vol] Ordered By: Reena Breaux on 10-11-2022 Globulin (S) [Mass/Vol] 2.8 g/dL F [facility] Hematocrit Auto (Bld) [Volum e fraction]Ordered By: Reena Breaux on 10-11-2022 Hematocrit (Bld) [Volume fraction] 39.1 % 34.0-46.4 [facility] Hemoglobin [Mass/volume] in BloodOrdered By: Reena Breaux on 10-11-2022 Hemoglobin (Bld) [Mass/Vol] 13.1 g/dL 11.8-15.4 [facility] Iron [Mass/volume] in Serum or PlasmaOrdered By: Reena Breaux on 10-11-2022 Iron [Mass/Vol] 69 ug/dL 40-150 [facility] Iron binding capacity [Mass/ volume] in Serum or PlasmaOrdered By: Reena Breaux on 10-11-2022 Iron binding capacity [Mass/Vol] 288 ug/dL 255-450 [facility] Iron saturation [Mass Fracti on] in Serum or PlasmaOrdered By: Reena Breaux on 10-11-2022 Iron saturation [Mass fraction] 24.0 % 20-50 [facility] Laboratory - Chemistry and C hemistry - challengeOrdered By: Reena Breaux on 10-11-2022 Cobalamin (Vitamin B12) [Mass/Vol] 1437 pg/mL 180-914 [facility] Magnesium [Mass/Vol] 2.1 mg/dL 1.6-2.6 [facility] Leukocytes [#/volume] correc jakob for nucleated erythrocytes in Blood by Automated counOrdered By: Reena Breaux on 10-11-2022 WBC corrected for nucl RBC Auto (Bld) [#/Vol] 6.8 10*3/uL 3.8-11.6 [facility] Lymphocytes Auto (Bld) [#/Vo l]Ordered By: Reena Breaux on 10-11-2022 Lymphocytes (Bld) [#/Vol] 2.7 10*3/uL 1.00-4.8 [facility] Lymphocytes/100 WBC Auto (Bl d)Ordered By: Reena Breaux on 10-11-2022 Lymphocytes/100 WBC (Bld) 39.8 % . [facility] MCH Auto (RBC) [Entitic mass ]Ordered By: Reena Breaux on 10-11-2022 MCH (RBC) [Entitic mass] 31.9 pg 24.7-34.3 [facility] MCHC Auto (RBC) [Mass/Vol]Or dered By: Reena Breaux on 10-11-2022 MCHC (RBC) [Mass/Vol] 33.5 g/dL 32.0-35.0 [facility] MCV Auto (RBC) [Entitic vol] Ordered By: Reena Breaux on 10-11-2022 MCV (RBC) [Entitic vol] 95.3 fL 80-100 [facility] Magnesiumon 10-11-2022 Magnesium [Mass/Vol] 2.1 mg/dL Normal 1.6-2.6 [facility] Comment on above: Performed By: #### P HOS, [id number], CMP, CBC, [id number], FE PRO, MG #### [facility] [address] #### VITB1 #### [facility] , Monocytes Auto (Bld) [#/Vol] Ordered By: Reena Breaux on 10-11-2022 Monocytes (Bld) [#/Vol] 0.3 10*3/uL 0.0-0.8 [facility] Monocytes/100 WBC Auto (Bld) Ordered By: Reena Breaux on 10-11-2022 Monocytes/100 WBC (Bld) 5.1 % . [facility] Neutrophils Auto (Bld) [#/Vo l]Ordered By: Reena Breaux on 10-11-2022 Neutrophils (Bld) [#/Vol] 3.6 10*3/uL 1.8-7.7 [facility] Neutrophils/100 WBC Auto (Bl d)Ordered By: Reena Breaux on 10-11-2022 Neutrophils/100 WBC (Bld) 52.7 % . [facility] No Panel InformationOrdered By: Reena Breaux on 10-11-2022 25-Hydroxy Vitamin D Total 33.9 ng/mL 30-100 [facility] Comment on above: VITAMIN D STATUS 25( [place])VITAMIN D RANGE (ng/mL) Deficient <20 Insufficient 20 to <30Sufficient 30 to 100Reference: Kofi MF,Mauricio NC, Mayank CUELLAR, et al. Evaluation,treatment, and prevention of vitamin D deficiency; an Endocrine Society clinical practice guideline. JCEM. 2010; 96(7):1911-30. Estimated GFR () > 60 mL/Min [facility] Comment on above: GFR estimated refere nce range: According to KDOQI guidelines, <60 ml/min/1.73m2 is sufficient to diagnose a patient with chronic kidney disease. Pharmacy Creatinine Clearance (Chem N/A [facility] Nucleated erythrocytes [Pres ence] in Blood by Automated countOrdered By: Reena Breaux on 10-11-2022 Nucleated RBC Auto Ql (Bld) 0.0 /100{WBC} 0-0.5 [facility] Phosphate [Mass/volume] in S negro or PlasmaOrdered By: Reena Breaux on 10-11-2022 Phosphate [Mass/Vol] 3.9 mg/dL 2.5-4.6 [facility] Phosphoruson 10-11-2022 Phosphate [Mass/Vol] 3.9 mg/dL Normal 2.5-4.6 [facility] Comment on above: Performed By: #### P HOS, [id number], CMP, CBC, [id number], FE PRO, MG #### [facility] [address] [place] [address] [place] #### VITB1 #### [facility] , Platelet mean volume Auto (B ld) [Entitic vol]Ordered By: Reena Breaux on 10-11-2022 Platelet mean volume (Bld) [Entitic vol] 9.8 fL 6.3-10.7 [facility] Platelets Auto (Bld) [#/Vol] Ordered By: Reena Breaux on 10-11-2022 Platelets (Bld) [#/Vol] 226 10*3/uL 150-450 [facility] Protein [Mass/volume] in Ser um or PlasmaOrdered By: Reena Breaux on 10-11-2022 Protein [Mass/Vol] 6.8 g/dL 6.1-7.9 [facility] RBC Auto (Bld) [#/Vol]Ordere d By: Reena Breaux on 10-11-2022 RBC (Bld) [#/Vol] 4.11 10*6/uL 3.60-5.00 [facility] Serum or plasma alanine doss otransferase measurement without P-5'-P (enzymatic activiOrdered By: Reena Breaux on 10-11-2022 ALT No additional P-5'-P [Catalytic activity/Vol] 12 U/L 10-60 [facility] Serum or plasma albumin/glob ulin mass ratioOrdered By: Reena Breaux on 10-11-2022 Albumin/Globulin [Mass ratio] 1.4 {ratio} [facility] Serum or plasma alkaline denis sphatase measurement (enzymatic activity/volume)Ordered By: Reena Breaux on 10-11-2022 ALP [Catalytic activity/Vol] 36 U/L 32-92 [facility] Serum or plasma anion gap de terminationOrdered By: Reena Breaux on 10-11-2022 Anion gap [Moles/Vol] 11.6 mmol/L 6.0-15.0 [facility] Serum or plasma aspartate am inotransferase measurement (enzymatic activity/volume)Ordered By: Reena Breaux on 10-11-2022 AST [Catalytic activity/Vol] 11 U/L 10-42 [facility] Serum or plasma calcium gloria urement (mass/volume)Ordered By: Reena Breaux on 10-11-2022 Calcium [Mass/Vol] 9.3 mg/dL 8.2-10.2 [facility] Serum or plasma chloride gina surement (moles/volume)Ordered By: Reena Breaux on 10-11-2022 Chloride [Moles/Vol] 103 mmol/L 95-114 [facility] Serum or plasma glucose gloria urement (mass/volume)Ordered By: Reena Breaux on 10-11-2022 Glucose [Mass/Vol] 85 mg/dL 70-100 [facility] Comment on above: ADA recommended refe rence rangeRandom Glucose Reference Range is dependent on time and content of last meal. Glucose of more than 200 mg/dL in a nonstressed, ambulatory subject supports the diagnosis of Diabetes Mellitus. Serum or plasma potassium me asurement (moles/volume)Ordered By: Reena Breaux on 10-11-2022 Potassium [Moles/Vol] 4.0 mmol/L 3.5-5.1 [facility] Serum or plasma sodium measu rement (moles/volume)Ordered By: Reena Breaux on 10-11-2022 Sodium [Moles/Vol] 137 mmol/L 136-146 [facility] Serum or plasma total biliru bin measurement (mass/volume)Ordered By: Reena Breaux on 10-11-2022 Bilirubin [Mass/Vol] 0.3 mg/dL 0.3-1.2 [facility] Serum or plasma total carbon dioxide measurement (moles/volume)Ordered By: Reena Breaux on 10-11-2022 CO2 [Moles/Vol] 26.4 mmol/L 22.0-30.0 [facility] Serum or plasma urea nitroge n measurement (mass/volume)Ordered By: Reena Breaux on 10-11-2022 Urea nitrogen [Mass/Vol] 11 mg/dL 9-23 [facility] Vit. B12/Folate Profileon Cobalamin (Vitamin B12) [Mass/Vol] 1437 pg/mL High 180-914 [facility] Comment on above: Performed By: #### P HOS, [id number], CMP, CBC, [id number], FE PRO, MG #### [facility] [address] [place] [address] #### VITB1 #### [facility] , Folate 22.2 ng/mL Normal >5.9 [facility] Comment on above: Result Comment: Tara te reference range: >5.9 ng/ml The WHO technical consultation on folate and vitamin b12 deficiencies has determined that folate concentrations less than 4 ng/ml are considered deficient. Performed By: #### P HOS, [id number], CMP, CBC, [id number], FE PRO, MG #### [facility] [address] [place] [address] [place] #### VITB1 #### [facility] , Vitamin B1 (Thiamine) Bloodo n 10-11-2022 Vitamin B1 (Thiamine) Blood 153.8 Normal 66.5-200.0 [facility] Comment on above: Result Comment: This test was developed and its performance characteristics determined by [facility]. It has not been cleared or approved by the Food and Drug Administration. Performed at: [address] [id number] [employer] Tool Maker: Chary Soler MD, Phone: [phone] PERFORMED BY: [place] [address] PATHOLOGIST DIRECTOR NICU AMANDA CALLE M.D. Performed By: #### P HOS, [id number], CMP, CBC, [id number], FE PRO, MG #### [facility] [address] [place] [address] [place] #### VITB1 #### [facility] , Vitamin D 25 Hydroxy Totalon 10-11-2022 Vitamin D 25 Hydroxy Total 33.9 ng/mL Normal 30-100 [facility] Comment on above: Result Comment: JONAH MIN D STATUS 25(OH)VITAMIN D RANGE (ng/mL) Deficient <20 Insufficient 20 to <30 Sufficient 30 to 100 Reference: Kofi MF,Mauricio MUÑOZ, Mayank CUELLAR, et al. Evaluation,treatment, and prevention of vitamin D deficiency; an Endocrine Society clinical practice guideline. JCEM. 2010; 96(7):1911-30. PERFORMED BY: [place] [address] PATHOLOGIST DIRECTOR NICU AMANDA CALLE M.D. Performed By: #### P HOS, [id number], CMP, CBC, [id number], FE PRO, MG #### [facility] [address] [place] [address] #### VITB1 #### [facility] , WBC Auto (Bld) [#/Vol]Ordere d By: Reena Breaux on 10-11-2022 WBC (Bld) [#/Vol] 6.8 10*3/uL 3.8-11.6 [facility] Complete Blood Count Auto Di ffon 06-10-2022 Basophils (Bld) [#/Vol] 0.0 10*3/uL Normal 0.0-0.2 [facility] Comment on above: Order Comment: NOT F ASTING. JKW Result Comment: PERF ORMED BY: [place] [address] PATHOLOGIST DIRECTOR NICU AMANDA CALLE M.D. Performed By: #### V ITB1 #### [facility] , #### [id number], CMP, MG, FE PRO, PHOS, [id number], CBC #### [facility] [address] [place] [address] Basophils/100 WBC (Bld) 0.7 % Normal . [facility] Comment on above: Order Comment: NOT F ASTING. JKW Performed By: #### V ITB1 #### [facility] , #### [id number], CMP, MG, FE PRO, PHOS, [id number], CBC #### [address] Eosinophils (Bld) [#/Vol] 0.2 10*3/uL Normal 0.0-0.45 [facility] Comment on above: Order Comment: NOT F ASTING. JKW Performed By: #### V ITB1 #### [facility] , #### [id number], CMP, MG, FE PRO, PHOS, [id number], CBC #### [address] Eosinophils/100 WBC (Bld) 2.6 % Normal . [facility] Comment on above: Order Comment: NOT F ASTING. JKW Performed By: #### V ITB1 #### [facility] , #### [id number], CMP, MG, FE PRO, PHOS, [id number], CBC #### [address] Erythrocyte distribution width (RBC) [Ratio] 13.9 % Normal 11.9-15.3 [facility] Comment on above: Order Comment: NOT F ASTING. JKW Performed By: #### V ITB1 #### [facility] , #### [id number], CMP, MG, FE PRO, PHOS, [id number], CBC #### [address] Hematocrit (Bld) [Volume fraction] 39.1 % Normal 34.0-46.4 [facility] Comment on above: Order Comment: NOT F ASTING. JKW Performed By: #### V ITB1 #### [facility] , #### [id number], CMP, MG, FE PRO, PHOS, [id number], CBC #### [address] Hemoglobin (Bld) [Mass/Vol] 12.8 g/dL Normal 11.8-15.4 [facility] Comment on above: Order Comment: NOT F ASTING. JKW Performed By: #### V ITB1 #### [facility] , #### [id number], CMP, MG, FE PRO, PHOS, [id number], CBC #### [facility] [address] Lymphocytes (Bld) [#/Vol] 1.5 10*3/uL Normal 1.00-4.8 [facility] Comment on above: Order Comment: NOT F ASTING. JKW Performed By: #### V ITB1 #### [facility] , #### [id number], CMP, MG, FE PRO, PHOS, [id number], CBC #### [address] Lymphocytes/100 WBC (Bld) 24.6 % Normal . [facility] Comment on above: Order Comment: NOT F ASTING. JKW Performed By: #### V ITB1 #### [facility] , #### [id number], CMP, MG, FE PRO, PHOS, [id number], CBC #### [facility] [address] [place] [address] MCH (RBC) [Entitic mass] 31.8 pg Normal 24.7-34.3 [facility] Comment on above: Order Comment: NOT F ASTING. JKW Performed By: #### V ITB1 #### [facility] , #### [id number], CMP, MG, FE PRO, PHOS, [id number], CBC #### [facility] [address] [place] [address] [place] MCV (RBC) [Entitic vol] 97.2 fL Normal 80-100 [facility] Comment on above: Order Comment: NOT F ASTING. JKW Performed By: #### V ITB1 #### [facility] , #### [id number], CMP, MG, FE PRO, PHOS, [id number], CBC #### [address] Mean Corpuscular HGB Conc 32.7 g/dL Normal 32.0-35.0 [facility] Comment on above: Order Comment: NOT F ASTING. JKW Performed By: #### V ITB1 #### [facility] , #### [id number], CMP, MG, FE PRO, PHOS, [id number], CBC #### [address] Monocytes (Bld) [#/Vol] 0.4 10*3/uL Normal 0.0-0.8 [facility] Comment on above: Order Comment: NOT F ASTING. JKW Performed By: #### V ITB1 #### [facility] , #### [id number], CMP, MG, FE PRO, PHOS, [id number], CBC #### [address] Monocytes/100 WBC (Bld) 7.3 % Normal . [facility] Comment on above: Order Comment: NOT F ASTING. JKW Performed By: #### V ITB1 #### [facility] , #### [id number], CMP, MG, FE PRO, PHOS, [id number], CBC #### [address] Neutrophils (Bld) [#/Vol] 3.8 10*3/uL Normal 1.8-7.7 [facility] Comment on above: Order Comment: NOT F ASTING. JKW Performed By: #### V ITB1 #### [facility] , #### [id number], CMP, MG, FE PRO, PHOS, [id number], CBC #### [place] [address] [place] Neutrophils/100 WBC (Bld) 64.8 % Normal . [facility] Comment on above: Order Comment: NOT F ASTING. JKW Performed By: #### V ITB1 #### [facility] , #### [id number], CMP, MG, FE PRO, PHOS, [id number], CBC #### [facility] [address] Nucleated RBC/100 WBC (Bld) [Ratio] 0.1 % Normal 0-0.5 [facility] Comment on above: Order Comment: NOT F ASTING. JKW Performed By: #### V ITB1 #### [facility] , #### [id number], CMP, MG, FE PRO, PHOS, [id number], CBC #### [address] Platelet mean volume (Bld) [Entitic vol] 10.6 fL Normal 6.3-10.7 [facility] Comment on above: Order Comment: NOT F ASTING. JKW Performed By: #### V ITB1 #### [facility] , #### [id number], CMP, MG, FE PRO, PHOS, [id number], CBC #### [address] Platelets (Bld) [#/Vol] 237 10*3/uL Normal 150-450 [facility] Comment on above: Order Comment: NOT F ASTING. JKW Performed By: #### V ITB1 #### [facility] , #### [id number], CMP, MG, FE PRO, PHOS, [id number], CBC #### [facility] [address] [place] [address] [place] RBC (Bld) [#/Vol] 4.02 10*6/uL Normal 3.60-5.00 [facility] Comment on above: Order Comment: NOT F ASTING. JKW Performed By: #### V ITB1 #### [facility] , #### [id number], CMP, MG, FE PRO, PHOS, [id number], CBC #### [facility] [address] WBC (Bld) [#/Vol] 5.9 10*3/uL Normal 4.5-11.0 [facility] Comment on above: Order Comment: NOT F ASTING. JKW Performed By: #### V ITB1 #### [facility] , #### [id number], CMP, MG, FE PRO, PHOS, [id number], CBC #### [address] Comprehensive Metabolic Pane nicole 06-10-2022 Albumin [Mass/Vol] 3.9 g/dL Normal 3.2-5.5 [facility] Comment on above: Order Comment: NOT F ASTING. JKW Performed By: #### V ITB1 #### [facility] , #### [id number], CMP, MG, FE PRO, PHOS, [id number], CBC #### [address] Albumin/Globulin [Mass ratio] 1.4 {ratio} Normal [facility] Comment on above: Order Comment: NOT F ASTING. JKW Performed By: #### V ITB1 #### [facility] , #### [id number], CMP, MG, FE PRO, PHOS, [id number], CBC #### [facility] [address] ALP [Catalytic activity/Vol] 43 U/L Normal 32-92 [facility] Comment on above: Order Comment: NOT F ASTING. JKW Performed By: #### V ITB1 #### [facility] , #### [id number], CMP, MG, FE PRO, PHOS, [id number], CBC #### [address] ALT [Catalytic activity/Vol] 12 U/L Normal 10-60 [facility] Comment on above: Order Comment: NOT F ASTING. JKW Performed By: #### V ITB1 #### [facility] , #### [id number], CMP, MG, FE PRO, PHOS, [id number], CBC #### [address] Anion gap [Moles/Vol] 11.0 mmol/L Normal 6.0-15.0 [facility] Comment on above: Order Comment: NOT F ASTING. JKW Performed By: #### V ITB1 #### [facility] , #### [id number], CMP, MG, FE PRO, PHOS, [id number], CBC #### [address] AST [Catalytic activity/Vol] 10 U/L Normal 10-42 [facility] Comment on above: Order Comment: NOT F ASTING. JKW Performed By: #### V ITB1 #### [facility] , #### [id number], CMP, MG, FE PRO, PHOS, [id number], CBC #### [address] Bilirubin [Mass/Vol] 0.7 mg/dL Normal 0.3-1.2 [facility] Comment on above: Order Comment: NOT F ASTING. JKW Performed By: #### V ITB1 #### [facility] , #### [id number], CMP, MG, FE PRO, PHOS, [id number], CBC #### [address] Calcium [Mass/Vol] 9.8 mg/dL Normal 8.2-10.2 [facility] Comment on above: Order Comment: NOT F ASTING. JKW Performed By: #### V ITB1 #### [facility] , #### [id number], CMP, MG, FE PRO, PHOS, [id number], CBC #### [facility] [address] Chloride [Moles/Vol] 104 mmol/L Normal 95-114 [facility] Comment on above: Order Comment: NOT F ASTING. JKW Performed By: #### V ITB1 #### [facility] , #### [id number], CMP, MG, FE PRO, PHOS, [id number], CBC #### [facility] [address] CO2 [Moles/Vol] 25.3 mmol/L Normal 22.0-30.0 [facility] Comment on above: Order Comment: NOT F ASTING. JKW Performed By: #### V ITB1 #### [facility] , #### [id number], CMP, MG, FE PRO, PHOS, [id number], CBC #### [facility] [address] [place] [address] Creatinine [Mass/Vol] 0.56 mg/dL Normal 0.44-1.03 [facility] Comment on above: Order Comment: NOT F ASTING. JKW Performed By: #### V ITB1 #### [facility] , #### [id number], CMP, MG, FE PRO, PHOS, [id number], CBC #### [facility] [address] Estimated GFR ( Christiano > 60 Normal [facility] Comment on above: Order Comment: NOT F ASTING. JKW Result Comment: GFR estimated reference range: According to KDOQI guidelines, <60 ml/min/1.73m2 is sufficient to diagnose a patient with chronic kidney disease. Performed By: #### V ITB1 #### [facility] , #### [id number], CMP, MG, FE PRO, PHOS, [id number], CBC #### [address] Estimated GFR (Non- Am > 60 Normal [facility] Comment on above: Order Comment: NOT F ASTING. JKW Performed By: #### V ITB1 #### [facility] , #### [id number], CMP, MG, FE PRO, PHOS, [id number], CBC #### [address] Globulin (S) [Mass/Vol] 2.8 g/dL Normal [facility] Comment on above: Order Comment: NOT F ASTING. JKW Performed By: #### V ITB1 #### [facility] , #### [id number], CMP, MG, FE PRO, PHOS, [id number], CBC #### [address] Glucose [Mass/Vol] 95 mg/dL Normal 70-100 [facility] Comment on above: Order Comment: NOT F ASTING. JKW Result Comment: [facility] Glucose Reference Range is dependent on time and content of last meal. Glucose of more than 200 mg/dL in a nonstressed, ambulatory subject supports the diagnosis of Diabetes Mellitus. ADA recommended reference range Performed By: #### V ITB1 #### [facility] , #### [id number], CMP, MG, FE PRO, PHOS, [id number], CBC #### [facility] [address] [place] [address] Potassium [Moles/Vol] 4.3 mmol/L Normal 3.5-5.1 [facility] Comment on above: Order Comment: NOT F ASTING. JKW Performed By: #### V ITB1 #### [facility] , #### [id number], CMP, MG, FE PRO, PHOS, [id number], CBC #### [facility] [address] [place] [address] Protein [Mass/Vol] 6.7 g/dL Normal 6.1-7.9 [facility] Comment on above: Order Comment: NOT F ASTING. JKW Performed By: #### V ITB1 #### [facility] , #### [id number], CMP, MG, FE PRO, PHOS, [id number], CBC #### [address] Sodium [Moles/Vol] 136 mmol/L Normal 136-146 [facility] Comment on above: Order Comment: NOT F ASTING. JKW Performed By: #### V ITB1 #### [facility] , #### [id number], CMP, MG, FE PRO, PHOS, [id number], CBC #### [address] Urea nitrogen [Mass/Vol] 7 mg/dL Low 9-23 [facility] Comment on above: Order Comment: NOT F ASTING. JKW Performed By: #### V ITB1 #### [facility] , #### [id number], CMP, MG, FE PRO, PHOS, [id number], CBC #### [address] FE PROon 10-20-2022 % Iron Saturation 19.0 % Low 20-50 [facility] Comment on above: Order Comment: NOT F ASTING. JKW Performed By: #### P HOS, [id number], CMP, CBC, [id number], FE PRO, MG #### [facility] [address] [place] [address] [place] #### VITB1 #### [facility] , Ferritin [Mass/Vol] 46.7 ng/mL Normal 11-306.8 [facility] Comment on above: Order Comment: NOT F ASTING. JKW Performed By: #### P HOS, [id number], CMP, CBC, [id number], FE PRO, MG #### [facility] [address] [place] [address] [place] #### VITB1 #### [facility] , Iron [Mass/Vol] 50 ug/dL Normal 40-150 [facility] Comment on above: Order Comment: NOT F ASTING. JKW Performed By: #### P HOS, [id number], CMP, CBC, [id number], FE PRO, MG #### [facility] [address] [place] [address] #### VITB1 #### [facility] , Total Iron Binding Capacity 260 ug/dL Normal 255-450 [facility] Comment on above: Order Comment: NOT F ASTING. JKW Performed By: #### P HOS, [id number], CMP, CBC, [id number], FE PRO, MG #### [facility] [address] [place] [address] #### VITB1 #### [facility] , Transferrin [Mass/Vol] 186 mg/dL Normal 180-380 [facility] Comment on above: Order Comment: NOT F ASTING. JKW Performed By: #### P HOS, [id number], CMP, CBC, [id number], FE PRO, MG #### [facility] [address] [place] [address] [place] #### VITB1 #### [facility] , Magnesiumon 06-10-2022 Magnesium [Mass/Vol] 2.0 mg/dL Normal 1.6-2.6 [facility] Comment on above: Order Comment: NOT F ASTING. JKW Performed By: #### P HOS, [id number], CMP, CBC, [id number], FE PRO, MG #### [facility] [address] [place] [address] [place] #### VITB1 #### [facility] , Phosphoruson 06-10-2022 Phosphate [Mass/Vol] 4.1 mg/dL Normal 2.5-4.6 [facility] Comment on above: Order Comment: NOT F ASTING. JKW Performed By: #### P HOS, [id number], CMP, CBC, [id number], FE PRO, MG #### [facility] [address] [place] [address] #### VITB1 #### [facility] , Vit. B12/Folate Profileon Cobalamin (Vitamin B12) [Mass/Vol] 575 pg/mL Normal 180-914 [facility] Comment on above: Order Comment: NOT F ASTING. JKW Performed By: #### P HOS, [id number], CMP, CBC, [id number], FE PRO, MG #### [facility] [address] [place] [address] #### VITB1 #### [facility] , Folate 14.3 ng/mL Normal >5.9 [facility] Comment on above: Order Comment: NOT F ASTING. JKW Result Comment: Tara te reference range: >5.9 ng/ml The WHO technical consultation on folate and vitamin b12 deficiencies has determined that folate concentrations less than 4 ng/ml are considered deficient. Performed By: #### P HOS, [id number], CMP, CBC, [id number], FE PRO, MG #### [facility] [address] [place] [address] [place] #### VITB1 #### [facility] , Vitamin B1 (Thiamine) Bloodo n 06-10-2022 Vitamin B1 (Thiamine) Blood 143.0 Normal 66.5-200.0 [facility] Comment on above: Order Comment: NOT F ASTING. JKW Result Comment: This test was developed and its performance characteristics determined by [facility]. It has not been cleared or approved by the Food and Drug Administration. Performed at: [facility] [address] [id number] Carbide Tool Maker: Chary Soler MD, Phone: [phone] PERFORMED BY: [place] [id number] PATHOLOGIST DIRECTOR NICU AMANDA CALLE M.D. Performed By: #### P HOS, [id number], CMP, CBC, [id number], FE PRO, MG #### [address] #### VITB1 #### [facility] , Vitamin D 25 Hydroxy Totalon 06-10-2022 Vitamin D 25 Hydroxy Total 27.8 ng/mL Low 30-100 [facility] Comment on above: Order Comment: NOT F ASTING. JKW Result Comment: JONAH MIN D STATUS 25(OH)VITAMIN D RANGE (ng/mL) Deficient <20 Insufficient 20 to <30 Sufficient 30 to 100 Reference: Kofi MF,Mauricio MUÑOZ, Mayank CUELLAR, et al. Evaluation,treatment, and prevention of vitamin D deficiency; an Endocrine Society clinical practice guideline. JCEM. 2010; 96(7):1911-30. PERFORMED BY: [place] [address] PATHOLOGIST DIRECTOR NICU AMANDA CALLE M.D. Performed By: #### P HOS, [id number], CMP, CBC, [id number], FE PRO, MG #### [place] [id number] [facility] #### VITB1 #### [facility] , HGB A1Con 01-15-2022 Average glucose Estimated from glycated hemoglobin (Bld) [Mass/Vol] 128 mg/dL [facility] Comment on above: Order Comment: Speci men Type: BLOOD SPECIMEN Ordering Facility: [facility] Address: [address] [place] [address] Result Comment: eAG: (Estimated average glucose) is a calculated value from HgbA1c and is medical sales representative of the average blood glucose level in the last 2-3 month period. Performed By: #### H BA1C #### [facility] CLIA [id number] [address] [place] [address] [id number] [place] [address] [place] HbA1c (Bld) [Mass fraction] 6.1 % High 4.3-5.6 [facility] Comment on above: Order Comment: Mary head Type: BLOOD SPECIMEN Ordering Facility: [facility] Address: [address] [place] [phone] Result Comment: Jayy ican Diabetes Association guidelines indicate that patients with HgbA1c in the range 5.7-6.4% are at increased risk for development of diabetes, and intervention by lifestyle modification may be beneficial. HgbA1c greater or equal to 6.5% is considered diagnostic of diabetes. Performed By: #### H BA1C #### [facility] CLIA [id number] [address] [place] [address] [place] [address] [place] POTASSIUM Don 01-15-2022 Potassium [Moles/Vol] 4.9 mmol/L Normal 3.7-5.1 [facility] Comment on above: Order Comment: Mary head Type: BLOOD SPECIMEN Ordering Facility: [facility] Address: [address] [place] [phone] Performed By: #### K 1 #### [facility] CLIA [id number] [facility] [place] [address] [place] Potassium [Moles/Vol] 4.9 mmol/L 3.7 - 5.1 mmol/L [facility] Vital Signs Date Time Vital Sign Value Performing Clinician Facility 03-27-2025 14:01-0400 Body mass index (BMI) [Ratio] 36.28 kg/m2 Bevy DO Work Phone: [facility] 03-27-2025 14:01-0400 Body weight 92.9 kg [employer] Joe DO Work Phone: [facility] 03-27-2025 14:01-0400 Diastolic blood pressure 72 mm[Hg] [employer] Joe DO Work Phone: [facility] 03-27-2025 14:01-0400 Systolic blood pressure 116 mm[Hg] Bevy DO Work Phone: [facility] 03-13-2025 15:41-0400 Body mass index (BMI) [Ratio] 36.46 kg/m2 Rosy Oralia PA Work Phone: [facility] 03-13-2025 15:41-0400 Body weight 93.35 kg Rosy [place] PA Work Phone: [facility] 03-13-2025 15:41-0400 Diastolic blood pressure 70 mm[Hg] Rosy [place] PA Work Phone: [facility] 03-13-2025 15:41-0400 Systolic blood pressure 110 mm[Hg] Rosy [place] PA Work Phone: [facility] 03-12-2025 13:35-0400 Body height 160 cm Daisha Lavoy PA-C Work Phone: [facility] 03-12-2025 13:35-0400 Body mass index (BMI) [Ratio] 36.38 kg/m2 Daihsa Lavoy PA-C Work Phone: [facility] 03-12-2025 13:35-0400 Body weight 93.17 kg Daisha Lavoy PA-C Work Phone: [facility] 03-12-2025 13:35-0400 Diastolic blood pressure 57 mm[Hg] Daisha Lavoy PA-C Work Phone: [facility] 03-12-2025 13:35-0400 Heart rate 76 /min Daisha Lavoy PA-C Work Phone: [facility] 03-12-2025 13:35-0400 Systolic blood pressure 99 mm[Hg] Daisha Lavoy PA-C Work Phone: [facility] 02-27-2025 14:00-0400 Body mass index (BMI) [Ratio] 36.1 kg/m2 Roscoe Joe DO Work Phone: [facility] 02-27-2025 14:00-0400 Body weight 92.44 kg Roscoe Joe DO Work Phone: [facility] 02-27-2025 14:00-0400 Diastolic blood pressure 60 mm[Hg] Roscoe Joe DO Work Phone: [facility] 02-27-2025 14:00-0400 Systolic blood pressure 110 mm[Hg] Roscoe Joe DO Work Phone: [facility] 02-14-2025 15:17-0400 Body mass index (BMI) [Ratio] 36.21 kg/m2 Hien Giles RN Work Phone: [facility] 02-14-2025 15:17-0400 Body weight 92.72 kg Hien Giles RN Work Phone: [facility] 02-11-2025 11:36-0400 Body mass index (BMI) [Ratio] 35.87 kg/m2 Rosy Quiroz PA Work Phone: [facility] 02-11-2025 11:36-0400 Body weight 91.85 kg Rosy Quiroz PA Work Phone: [facility] 02-11-2025 11:36-0400 Diastolic blood pressure 60 mm[Hg] Rosy Oralia PA Work Phone: [facility] 02-11-2025 11:36-0400 Systolic blood pressure 110 mm[Hg] Rosy [place] PA Work Phone: [facility] 02-07-2025 10:43-0400 Body height 160 cm Scanning External [facility] 01-10-2025 10:33-0400 Body mass index (BMI) [Ratio] 34.92 kg/m2 Roscoe Joe DO Work Phone: [facility] 01-10-2025 10:33-0400 Body weight 89.41 kg Roscoe Joe DO Work Phone: [facility] 01-10-2025 10:33-0400 Diastolic blood pressure 68 mm[Hg] Roscoe Joe DO Work Phone: [facility] 01-10-2025 10:33-0400 Systolic blood pressure 110 mm[Hg] Roscoe Joe DO Work Phone: [facility] 12-10-2024 11:23-0400 Body mass index (BMI) [Ratio] 33.66 kg/m2 Rosy Haddadey PA Work Phone: [facility] 12-10-2024 11:23-0400 Body weight 86.18 kg Rosy Quiroz PA Work Phone: [facility] 12-10-2024 11:23-0400 Diastolic blood pressure 70 mm[Hg] Rosy Quiroz PA Work Phone: [facility] 12-10-2024 11:23-0400 Systolic blood pressure 106 mm[Hg] Rosy Quiroz PA Work Phone: [facility] 11-08-2024 11:04-0400 Body mass index (BMI) [Ratio] 32.24 kg/m2 Roscoe Joe DO Work Phone: [facility] 11-08-2024 11:04-0400 Body weight 82.56 kg Roscoe Joe DO Work Phone: [facility] 11-08-2024 11:04-0400 Diastolic blood pressure 60 mm[Hg] Rosceo Joe DO Work Phone: [facility] 11-08-2024 11:04-0400 Systolic blood pressure 100 mm[Hg] Roscoe Joe DO Work Phone: [facility] 10-18-2024 13:54-0500 Body mass index (BMI) [Ratio] 31.38 kg/m2 [facility] 10-18-2024 13:54-0500 Body weight 80.34 kg Nom Nurse [facility] 08-02-2024 15:58-0500 Body temperature 96.8 [degF] Edu Alvarez COIN COUNTER AND WRAPPER Work Phone: [facility] 08-02-2024 15:58-0500 Diastolic blood pressure 66 mm[Hg] Edu Alvarez COIN COUNTER AND WRAPPER Work Phone: [facility] 08-02-2024 15:58-0500 Heart rate 88 /min Edu Alvarez COIN COUNTER AND WRAPPER Work Phone: [facility] 08-02-2024 15:58-0500 SaO2% (BldA) [Mass fraction] 98 % Edu Alvarez COIN COUNTER AND WRAPPER Work Phone: [facility] 08-02-2024 15:58-0500 Systolic blood pressure 106 mm[Hg] Edu Alvarez COIN COUNTER AND WRAPPER Work Phone: [facility] 07-25-2024 14:19-0500 Body height 160 cm Sina Pascual DO Work Phone: [facility] 07-25-2024 14:19-0500 Body mass index (BMI) [Ratio] 30.82 kg/m2 Sina Pascual DO Work Phone: [facility] 07-25-2024 14:19-0500 Body weight 78.93 kg Sina Pascual DO Work Phone: [facility] 07-25-2024 14:19-0500 Diastolic blood pressure 68 mm[Hg] Sina Pascual DO Work Phone: [facility] 07-25-2024 14:19-0500 Heart rate 68 /min Sina Pascual DO Work Phone: [facility] 07-25-2024 14:19-0500 Respiratory rate 12 /min Sina Pascual DO Work Phone: [facility] 07-25-2024 14:19-0500 SaO2% (BldA) [Mass fraction] 99 % Sina Pascual DO Work Phone: [facility] 07-25-2024 14:19-0500 Systolic blood pressure 128 mm[Hg] Sina Pascual DO Work Phone: [facility] 06-29-2024 12:36-0500 Body mass index (BMI) [Ratio] 29.58 kg/m2 Berenice Zepeda APRN.CHARGE HISTOTECHNOLOGIST Work Phone: [facility] 06-29-2024 12:36-0500 Body weight 75.75 kg Berenice Zepeda APRN.CHARGE HISTOTECHNOLOGIST Work Phone: [facility] 06-29-2024 12:36-0500 Diastolic blood pressure 68 mm[Hg] Berenice Katelyn INSTALLATION & MAINTENANCE EXECUTIVE.CHARGE HISTOTECHNOLOGIST Work Phone: [facility] 06-29-2024 12:36-0500 Heart rate 65 /min Berenice Katelyn INSTALLATION & MAINTENANCE EXECUTIVE.CHARGE HISTOTECHNOLOGIST Work Phone: [facility] 06-29-2024 12:36-0500 Systolic blood pressure 101 mm[Hg] Berenice Katelyn INSTALLATION & MAINTENANCE EXECUTIVE.CHARGE HISTOTECHNOLOGIST Work Phone: [facility] 09-23-2023 14:27-0500 Body height 160 cm Berenice Katelyn INSTALLATION & MAINTENANCE EXECUTIVE.CHARGE HISTOTECHNOLOGIST Work Phone: [facility] 09-23-2023 14:27-0500 Body weight 76.2 kg Berenice Katelyn INSTALLATION & MAINTENANCE EXECUTIVE.CHARGE HISTOTECHNOLOGIST Work Phone: [facility] 07-21-2023 16:05-0500 Body height 161.2 cm Berenice Katelyn INSTALLATION & MAINTENANCE EXECUTIVE.CHARGE HISTOTECHNOLOGIST Work Phone: [facility] 07-21-2023 16:05-0500 Body weight 80.06 kg Berenice Katelyn INSTALLATION & MAINTENANCE EXECUTIVE.CHARGE HISTOTECHNOLOGIST Work Phone: [facility] 07-21-2023 16:05-0500 Diastolic blood pressure 74 mm[Hg] Berenice Katelyn INSTALLATION & MAINTENANCE EXECUTIVE.CHARGE HISTOTECHNOLOGIST Work Phone: [facility] 07-21-2023 16:05-0500 Heart rate 60 /min Berenice Katelyn INSTALLATION & MAINTENANCE EXECUTIVE.CHARGE HISTOTECHNOLOGIST Work Phone: [facility] 07-21-2023 16:05-0500 Systolic blood pressure 112 mm[Hg] Berenice Katelyn INSTALLATION & MAINTENANCE EXECUTIVE.CHARGE HISTOTECHNOLOGIST Work Phone: [facility] 01-15-2022 11:50-0400 Body height 162.6 cm Dasha Lujan MD Work Phone: [facility] 01-15-2022 11:50-0400 Body temperature 98.01 [degF] Dasha Lujan MD Work Phone: [facility] 01-15-2022 11:50-0400 Body weight 104.33 kg Dasha Lujan MD Work Phone: [facility] 01-15-2022 11:50-0400 Diastolic blood pressure 86 mm[Hg] Dasha Lujan MD Work Phone: [facility] 01-15-2022 11:50-0400 Heart rate 65 /min Dasha Lujan MD Work Phone: [facility] 01-15-2022 11:50-0400 Respiratory rate 16 /min Dasha Lujan MD Work Phone: [facility] 01-15-2022 11:50-0400 Systolic blood pressure 124 mm[Hg] Dasha Lujan MD Work Phone: [facility] Encounters Encounter Date Encounter Type Care Provider Facility Start: 04-10-2025 End: 04-10-2025 ambulatory ROSCOE JOE Not Available Start: 04-10-2025 End: 04-10-2025 Bamboo flowsheet Roscoe Joe DO Work Phone: [facility] Start: 04-10-2025 End: 04-10-2025 Bamboo flowsheet Roscoe Joe DO Work Phone: [facility] Start: 04-09-2025 End: 04-09-2025 Telephone encounter Devika MALDONADO Work Phone: [facility] Start: 04-08-2025 End: 04-08-2025 Clinisync Result Encounter [...] encounter Blanquita Toney RN [facility] Start: 04-01-2025 End: 04-01-[address] [facility] Start: 04-01-2025 End: 04-01-2025 Office outpatient visit 25 minutes [facility] Jasmina JULIENNE Work Phone: [facility] Comment on above: Gestational diabetes requiring insulin (Primary Dx) Start: 03-27-2025 End: 03-27-2025 Bamboo flowsheet Roscoe Joe DO Work Phone: [facility] Start: 03-27-2025 End: 03-27-2025 Bamboo flowsheet Roscoe Joe DO Work Phone: [facility] Start: 03-27-2025 End: 03-27-2025 flow sheet Roscoe Joe DO Work Phone: [facility] Comment on above: Third trimester preg piper ([facility]); H/O gastric sleeve; Gestational diabetes mellitus (GDM), antepartum, gestational diabetes method of control unspecified ([facility]); 32 weeks gestation of ([facility]) Start: 03-27-2025 End: 03-27-2025 ambulatory ROSCOE JOE Not Available Start: 03-26-2025 End: 03-26-2025 Telephone encounter Devika MALDONADO Work Phone: [facility] Start: 03-19-2025 End: 03-19-2025 Telephone encounter Fatimah MALDONADO [facility] Start: 03-13-2025 End: 03-13-2025 flow sheet Rosy KRUGER Work Phone: [facility] Comment on above: 30 weeks gestation o f ([facility]); Third trimester ([facility]); H/O gastric sleeve; Gestational diabetes mellitus (GDM), antepartum, gestational diabetes method of control unspecified ([facility]) Start: 03-13-2025 End: 03-13-2025 ambulatory ROSY QUIROZ Not Available Start: 03-13-2025 End: 03-13-2025 Bamboo flowsheet Rosy KRUGER Work Phone: [facility] Start: 03-13-2025 End: 03-13-2025 Bamboo flowsheet Rosy KRUGER Work Phone: [facility] Start: 03-12-2025 End: 03-12-[address] [facility] Start: 03-12-2025 End: 03-12-2025 Office outpatient visit 25 minutes [facility] SLICK-Maria Isabel Work Phone: [facility] Comment on above: Gestational diabetes mellitus (GDM) in second trimester, gestational diabetes method of control unspecified (Primary Dx); Gestational diabetes requiring insulin Start: 03-05-2025 End: 03-05-2025 Telephone encounter Devika MALDONADO Work Phone: [facility] Start: 02-27-2025 End: 02-27-2025 flow sheet Roscoe Joe DO Work Phone: [facility] Comment on above: 28 weeks gestation o f ([facility]); Third trimester ([facility]); H/O gastric sleeve; Gestational diabetes mellitus (GDM), antepartum, gestational diabetes method of control unspecified ([facility]) Start: 02-27-2025 End: 02-27-2025 ambulatory ROSCOE JOE Not Available Start: 02-26-2025 End: 02-26-2025 Telephone encounter Devika MALDONADO Work Phone: [facility] Start: 02-14-2025 End: 02-14-2025 ambulatory Hien Giles RN Work Phone: [facility] Comment on above: Gestational diabetes mellitus (GDM) in second trimester, gestational diabetes method of control unspecified (Primary Dx) Start: 02-11-2025 End: 02-11-2025 flow sheet Rosy KRUGER Work Phone: [facility] Comment on above: Second trimester pre gnancy ([facility]); 26 weeks gestation of ([facility]); H/O gastric sleeve Start: 02-11-2025 End: 02-11-2025 ambulatory ROSY QUIROZ Not Available Start: 02-07-2025 End: 02-07-2025 Chart abstracting Scanning Provider External [facility] Start: 02-01-2025 End: 02-01-2025 Clinisync Result [...] [id number] Start: 10-18-2024 End: 10-18-2024 ambulatory ROSCOE HOUSERO Not Available Start: 08-02-2024 End: 08-02-2024 ambulatory EDU ALVAREZ Not Available Start: 08-02-2024 End: 08-02-2024 Office outpatient visit 25 minutes Edu Alvarez COIN COUNTER AND WRAPPER Work Phone: [facility] Comment on above: Acute cough (Primary Dx); Chest congestion; Bronchitis Start: 07-25-2024 End: 07-25-2024 ambulatory SINA GARNER Not Available Start: 07-25-2024 End: 07-25-2024 Office outpatient new 45 minutes Sina Pascual DO Work Phone: [facility] Comment on above: Rectal bleeding (Cony mike Dx) Start: 07-25-2024 End: 07-25-2024 Bamboo flowsheet Sina Pascual DO Work Phone: [facility] Start: 07-25-2024 End: 07-25-2024 Bamboo flowsheet Sina Pascual DO Work Phone: [facility] Start: 06-29-2024 End: 06-29-2024 ambulatory DASHA LUJAN Facility:[facility] Start: 06-29-2024 End: 06-29-2024 Patient encounter procedure Berenice Zepeda APRN.CHARGE HISTOTECHNOLOGIST Work Phone: Internal Medicine Comment on above: Encounter for weight management (Primary Dx); Overweight Start: 03-06-2024 ambulatory Berenice wheatley INSTALLATION & MAINTENANCE EXECUTIVE.CHARGE HISTOTECHNOLOGIST Work Phone: Internal Medicine Start: 03-06-2024 Patient encounter procedure Berenice Zepeda APRN.CHARGE HISTOTECHNOLOGIST Work Phone: [facility] Medicine Comment on above: Prescription Start: 09-23-2023 End: 09-23-2023 ambulatory Berenice Webbtter INSTALLATION & MAINTENANCE EXECUTIVE.CHARGE HISTOTECHNOLOGIST Work Phone: Internal Medicine Comment on above: Encounter for weight management; Overweight (BMI 25.0-29.9) Start: 09-23-2023 End: 09-23-2023 Telemedicine consultation with patient Berenice Zepeda APRNCharisseCHARGE HISTOTECHNOLOGIST Work Phone: RUSL[facility] Start: 08-23-2023 End: 08-23-2023 ambulatory BERENICE ZEPEDA Facility:[facility] Start: 07-26-2023 End: 07-26-2023 ambulatory DASHA LUJAN Facility:[facility] Start: 07-21-2023 End: 07-21-2023 ambulatory BERENICE KATELYN Facility:[facility] Start: 07-21-2023 End: 07-21-2023 Patient encounter procedure Berenice Zepeda BRETT.CHARGE HISTOTECHNOLOGIST Work Phone: Internal Medicine Comment on above: Routine adult health maintenance (Primary Dx); IFG (impaired fasting glucose); Encounter for weight management; Class 1 obesity due to excess calories with body mass index (BMI) of 30.0 to 30.9 in adult, unspecified whether serious comorbidity present; Encounter for immunization; Immunity status testing Start: 07-21-2023 End: 07-21-2023 Patient encounter status Berenice Zepeda APRRajatCHARGE HISTOTECHNOLOGIST Work Phone: [facility] Work Phone: Start: 06-29-2023 ambulatory Dasha Lujan MD Work Phone: Internal Medicine Comment on above: Prescription Start: 10-11-2022 End: 10-11-2022 ambulatory Reena Breaux Facility:[facility] Start: 10-11-2022 End: 10-11-2022 ambulatory MD Dasha Lujan Work Phone: [facility] Work Phone: Start: 10-11-2022 End: 10-11-2022 Patient encounter procedure MD Dasha Lujan Work Phone: [facility] Start: 06-10-2022 End: 06-10-2022 ambulatory Reena Breaux Facility:[facility] Start: 01-15-2022 End: 01-15-2022 Office outpatient new [...] stick/tabl et rgnt non-auto w/o micrscp Roscoe Housero DO Work Phone: Start: 01-02-2025 US OB ANATOMY Roscoe Faz io DO Work Phone: Start: 01-02-2025 US [...] stick/tabl et rgnt non-auto w/o micrscp Roscoe Housero DO Work Phone: Start: 10-19-2024 ALL CBC [...] Td Vaccines (8 - Td or Tdap) [facility] Start: 07-21-2033 Urine microalbumin profile [facility] Start: 12-11-2027 Screening for malign ant neoplasm of cervix [facility] Start: 03-12-2026 Adult BMI Screening Adult BMI Screen ing [facility] Start: 03-12-2026 Tobacco Screening Tobacco Screening [facility] Start: 02-14-2026 Adult BMI Screening Adult BMI Screen ing [facility] Start: 04-22-2025 Influenza vaccination N [facility] Start: 04-10-2025 End: 04-10-2025 Patient encounter procedure [facility] Comment on above: Arrived Start: 04-01-2025 End: 04-01-2025 Telemedicine consultation with patient 04/01/2025 10:00 AM EDT Telemedicine [facility] [address] [place] [id number] Daisha Morel, PATutuC [address] [address] [facility] Start: 03-27-2025 End: 03-27-2025 Patient encounter procedure [facility] Comment on above: Arrived Start: 03-13-2025 End: 03-13-2025 Patient encounter procedure [facility] Comment on above: Arrived Start: 02-27-2025 End: 02-27-2025 Professional / ancillary services management 02/27/2025 1:00 PM EDT Ancillary Procedure [facility] [address] [place] [id number] [facility] Start: 02-14-2025 End: 02-14-2025 ambulatory 02/14/2025 1:30 PM EDT Support Visit [facility] [address] [facility] [place] [address] Hien Giles RN [address] [facility] [address] [place] [address] Devika Pope LD [address] [facility] [place] [address] [facility] Start: 02-11-2025 End: 06-13-2025 US for US OB follow up transabdominal approach Imaging Routine H/O gastric sleeve Expected: 02/11/2025, Expires: 06/13/2025 [facility] Work Phone: Comment on above: Expected: 02/11/2025 , Expires: 06/13/2025 Start: 02-11-2025 End: 02-11-2025 Patient encounter procedure 02/11/2025 11:30 AM EDT Routine [facility] [address] [place] [address] Rosy Quiroz PA [address] [place] [address] [facility] Start: 01-30-2025 End: 01-30-2025 Professional / ancillary services management 01/30/2025 1:00 PM EDT Ancillary Procedure [facility] [address] [place] [id number] [facility] Start: 01-15-2025 Pap Testing Pap Testing [facility] Start: 01-15-2025 Screening for malign ant neoplasm of cervix Pap Testing [facility] Start: 01-10-2025 End: 01-10-2026 CBC panel - Blood by Automated count CBC Lab Routine Diabetes mellitus screening Expected: 01/10/2025 (Approximate), Expires: 01/10/2026 [facility] Work Phone: Comment on above: Expected: 01/10/2025 (Approximate), Expires: 01/10/2026 Start: 01-10-2025 End: 01-10-2026 Measurement of glucose 1 hour after glucose challenge for glucose tolerance test Glucose tolerance, 1 hour Lab Routine Diabetes mellitus screening Expected: 01/10/2025 (Approximate), Expires: 01/10/2026 [facility] Comment on above: Expected: 01/10/2025 (Approximate), Expires: 01/10/2026 Start: 01-10-2025 End: 01-10-2025 Patient encounter procedure 01/10/2025 10:10 AM EDT Routine [facility] [address] [facility] [place] [id number] Roscoe Diaz, DO [address] [place] [address] [place] [address] [facility] Start: 12-10-2024 End: 01-09-2025 Alpha fetoprotein, maternal Alpha fetoprotein, maternal Lab Routine Need for maternal serum alpha-protein (MSAFP) screening Expected: 12/10/2024 (Approximate), Expires: 01/09/2025 [facility] Comment on above: Expected: 12/10/2024 (Approximate), Expires: 01/09/2025 Start: 12-10-2024 End: 03-11-2025 US for US OB 14+ weeks anatomy scan Imaging Routine Screening, , for anatomic survey Expected: 12/10/2024, Expires: 03/11/2025 [facility] Comment on above: Expected: 12/10/2024 , Expires: 03/11/2025 Start: 12-10-2024 End: 12-10-2024 Patient encounter procedure 12/10/2024 11:00 AM EDT Routine [facility] [address] [place] [id number] Rosy Quiroz PA [address] [facility] [place] [address] Arrived [facility] Comment on above: Arrived Start: 11-08-2024 End: 11-08-2024 Patient encounter procedure 11/08/2024 10:50 AM EDT [facility] [address] [facility] [place] [phone] Roscoe Diaz, [address] [facility] [place] [address] [facility] Start: 10-18-2024 End: 10-18-2025 ABO/Rh ABO/Rh Lab Routine Missed menses , unspecified gestational age Expected: 10/18/2024 (Approximate), Expires: 10/18/2025 [facility] Comment on above: Expected: 10/18/2024 (Approximate), Expires: 10/18/2025 Start: 10-18-2024 End: 10-18-2025 Blood type and Indirect antibody screen panel - Blood Type and screen Lab Routine Missed menses , unspecified gestational age Expected: 10/18/2024 (Approximate), Expires: 10/18/2025 [facility] Comment on above: Expected: 10/18/2024 (Approximate), Expires: 10/18/2025 Start: 10-18-2024 End: 10-18-2025 Drugs of abuse panel - Urine by Screen method Rapid drug screen, urine Lab Routine , unspecified gestational age Encounter for supervision of normal first in first trimester Expected: 10/18/2024 (Approximate), Expires: 10/18/2025 [facility] Comment on above: Expected: 10/18/2024 (Approximate), Expires: 10/18/2025 Start: 10-18-2024 End: 10-18-2025 US Pelvis transvaginal [facility] Work Phone: Comment on above: Expected: 10/18/2024 , Expires: 10/18/2025 Start: 11-30-2024 Covid-19 Vaccine (#1) Covid-19 Vacci ne (#1) [facility] Comment on above: Postponed from 04/08 (Declined at this time) Start: 07-21-2024 Covid-19 Vaccine ( season) Covid-19 Vaccine ( season) [facility] Comment on above: Postponed from 04/22 (Declined at this time) Start: 04-22-2024 Covid-19 Vaccine () Covid-19 Vaccine () [facility] Start: 04-22-2024 Influenza vaccination Influenza Vacc ine (#1) [facility] Start: 02-19-2024 Influenza vaccination Influenza Vacc ine (#1) [facility] Comment on above: Postponed from 04/22 (Declined at this time) Start: 08-22-2023 Behavioral Health Screening Behavioral Health Screening [facility] Start: 08-22-2023 Depression Assessment Depression Ass essment [facility] Start: 07-21-2023 End: 10-20-2023 CBC W Auto Differential panel - Blood CBC + DIFF Lab Routine Routine adult health maintenance Expected: 07/21/2023, Expires: 10/20/2023 [facility] Work Phone: Comment on above: Expected: 07/21/2023 , Expires: 10/20/2023 Start: 07-21-2023 End: 10-20-2023 Comprehensive metabolic 2000 panel - Serum or Plasma COMP METABOLIC PANEL Lab Routine Routine adult health maintenance Expected: 07/21/2023, Expires: 10/20/2023 [facility] Work Phone: Comment on above: Expected: 07/21/2023 , Expires: 10/20/2023 Start: 07-21-2023 End: 10-20-2023 Hemoglobin A1c in Blood HGB A1C Lab Routine IFG (impaired fasting glucose) Routine adult health maintenance Expected: 07/21/2023, Expires: 10/20/2023 [facility] Work Phone: Comment on above: Expected: 07/21/2023 , Expires: 10/20/2023 Start: 07-21-2023 End: 10-20-2023 Hepatitis B virus surface Ab [Presence] in Serum HEP B SURF AB Lab Routine Immunity status testing Expected: 07/21/2023, Expires: 10/20/2023 [facility] Work Phone: Comment on above: Expected: 07/21/2023 , Expires: 10/20/2023 Start: 07-21-2023 End: 10-20-2023 Lipid 1996 panel - Serum or Plasma LIPID PANEL BASIC Lab Routine Routine adult health maintenance Expected: 07/21/2023, Expires: 10/20/2023 [facility] Work Phone: Comment on above: Expected: 07/21/2023 , Expires: 10/20/2023 Start: 07-06-2023 Hepatitis B Vaccine (1 of 3 - 3-dose series) Hepatitis B Vaccine (1 of 3 - 3-dose series) [facility] Comment on above: Postponed from 10/09 (Declined at this time) Start: 04-22-2023 Influenza vaccination Influenza Vacc ine (#1) [facility] Start: 01-15-2023 Adult depression screening assessment DEPRESSION SCREENING [facility] Start: 01-15-2023 COVID-19 VACCINE (#1) COVID-19 VACCI NE (#1) [facility] Comment on above: Postponed from 10/09 (Declined at this time) Start: 01-15-2023 PAP TESTING PAP TESTING [facility] Start: 01-15-2023 Screening for malign ant neoplasm of cervix Cervical Cancer Screening [facility] Start: 2022 HPV Testing HPV Testing [facility] Start: 2022 Screening for malign ant neoplasm of cervix [facility] Start: 08-22-2022 Depression Assessment Depression Ass essment [facility] Start: 04-22-2022 Influenza vaccination INFLUENZA (Sea son Ended) [facility] Start: 01-15-2022 End: 03-17-2022 Hemoglobin A1c/Hemoglobin.total in Blood [facility] Work Phone: Comment on above: Expected: 01/15/2022 , Expires: 03/17/2022 Start: 2013 Screening for malign ant neoplasm of cervix Pap Smear [facility] Start: 2011 DTaP,Tdap and Td Vaccines (1 - Tdap) DTaP,Tdap and Td Vaccines (1 - Tdap) [facility] Start: 2011 Urine microalbumin profile [facility] Start: 2010 Adult BMI Follow Up Plan Adult BMI Follow Up Plan [facility] Start: 2010 Adult BMI Screening Adult BMI Screen ing [facility] Start: 2010 Anxiety Screening Anxiety Screening [facility] Start: 2010 Depression Screening Depression Scre ening [facility] Start: 2004 Depression Screening Depression Scre ening [facility] Start: 2004 Tobacco Screening Tobacco Screening [facility] Start: 04-08-1993 Covid-19 Vaccine (#1) Covid-19 Vacci ne (#1) [facility] Start: 1992 Hepatitis B Vaccine (1 of 3 - 3-dose series) Hepatitis B Vaccine (1 of 3 - 3-dose series) [facility] Bacteria identified in Urine by Culture Urine culture Microbiology Routine Missed menses Ordered: 10/18/2024 [facility] Comment on above: Ordered: 10/18/2024 CBC W Auto Different ial panel - Blood CBC and differential Lab Routine Missed menses , unspecified gestational age Ordered: 10/18/2024 [facility] Comment on above: Ordered: 10/18/2024 CHLAMYDIA TRACHOMATI S (GENITO/STI) CHLAMYDIA TRACHOMATIS (GENITO/STI) Lab Routine Exposure to STD Ordered: 12/10/2024 [facility] Comment on above: Ordered: 12/10/2024 Cytology Cervical or vaginal smear or scraping study Pap Smear Pathology and Cytology Routine Well woman exam with routine gynecological exam Ordered: 12/10/2024 [facility] Comment on above: Ordered: 12/10/2024 Hemoglobin A1c/Hemoglobin.total in Blood Hemoglobin A1c Lab Routine Missed menses , unspecified gestational age Ordered: 10/18/2024 [facility] Comment on above: Ordered: 10/18/2024 Hepatitis B virus surface Ag [Presence] in Serum or Plasma by Immunoassay Hepatitis B surface antigen Lab Routine Missed menses , unspecified gestational age Ordered: 10/18/2024 [facility] Comment on above: Ordered: 10/18/2024 Hepatitis C virus Ab [Presence] in Serum or Plasma by Immunoassay Hepatitis C antibody Lab Routine Missed menses , unspecified gestational age Ordered: 10/18/2024 [facility] Comment on above: Ordered: 10/18/2024 HIV-1/HIV-2 antigen/antibody combination immunoassay HIV-1 and HIV-2 antibodies Lab Routine Missed menses , unspecified gestational age Ordered: 10/18/2024 [facility] Comment on above: Ordered: 10/18/2024 Human papilloma viru s DNA [Presence] in Unspecified specimen by Probe with amplification HPV DNA probe, amplified Microbiology Routine Well woman exam with routine gynecological exam Ordered: 12/10/2024 [facility] Comment on above: Ordered: 12/10/2024 Neisseria gonorrhoea e DNA [Presence] in Unspecified specimen by ALPA with probe detection Neisseria gonorrhea DNA probe, direct Lab Routine Exposure to STD Ordered: 12/10/2024 [facility] Comment on above: Ordered: 12/10/2024 Reagin Ab [Presence] in Serum by RPR RPR Lab Routine Missed menses , unspecified gestational age Ordered: 10/18/2024 [facility] Comment on above: Ordered: 10/18/2024 Rubella antibody, IgG Rubella an tibody, IgG Lab Routine Missed menses , unspecified gestational age Ordered: 10/18/2024 [facility] Comment on above: Ordered: 10/18/2024 SURESWAB(R) ADVANCED VAGINITIS PLUS, TMA SURESWAB(R) ADVANCED VAGINITIS PLUS, TMA Pathology and Cytology Routine Exposure to STD Ordered: 12/10/2024 [facility] Work Phone: Comment on above: Ordered: 12/10/2024 Thiamine [Moles/volu me] in Blood [facility] Immunizations Immunization Date Immunization Notes Care Provider Fa cili 07-21-2023 tetanus toxoid, redu sloane diphtheria toxoid, and acellular pertussis vaccine, adsorbed Berenice Zepeda APRN.CNP Work Phone: [facility] 05-03-2011 meningococcal polysaccharide (groups A, C, Y and W-135) diphtheria toxoid conjugate vaccine (MCV4P) Berenice Zepeda APRN.CNP Work Phone: [facility] 05-03-2011 tetanus toxoid, redu sloane diphtheria toxoid, and acellular pertussis vaccine, adsorbed Berenice Katelyn INSTALLATION & MAINTENANCE EXECUTIVE.CHARGE HISTOTECHNOLOGIST Work Phone: [facility] 03-29-2011 human papilloma viru s vaccine, quadrivalent Berenice Katelyn INSTALLATION & MAINTENANCE EXECUTIVE.CHARGE HISTOTECHNOLOGIST Work Phone: [facility] 11-26-2010 human papilloma viru s vaccine, quadrivalent Berenice Katelyn INSTALLATION & MAINTENANCE EXECUTIVE.CHARGE HISTOTECHNOLOGIST Work Phone: [facility] 09-28-2010 human papilloma viru s vaccine, quadrivalent Berenice Katelyn INSTALLATION & MAINTENANCE EXECUTIVE.CHARGE HISTOTECHNOLOGIST Work Phone: [facility] 04-30-1998 diphtheria, tetanus toxoids and acellular pertussis vaccine, unspecified formulation Berenice Katelyn INSTALLATION & MAINTENANCE EXECUTIVE.CHARGE HISTOTECHNOLOGIST Work Phone: [facility] 04-30-1998 measles, mumps and rubella virus vaccine Berenice Katelyn INSTALLATION & MAINTENANCE EXECUTIVE.CHARGE HISTOTECHNOLOGIST Work Phone: [facility] 04-30-1998 trivalent poliovirus vaccine, live, oral Berenice Katelyn INSTALLATION & MAINTENANCE EXECUTIVE.CHARGE HISTOTECHNOLOGIST Work Phone: [facility] 06-07-1994 diphtheria, tetanus toxoids and acellular pertussis vaccine, unspecified formulation Berenice Katelyn INSTALLATION & MAINTENANCE EXECUTIVE.CHARGE HISTOTECHNOLOGIST Work Phone: [facility] 06-07-1994 hepatitis B vaccine, pediatric or pediatric/adolescent dosage Berenice Katelyn INSTALLATION & MAINTENANCE EXECUTIVE.CHARGE HISTOTECHNOLOGIST Work Phone: [facility] 06-07-1994 trivalent poliovirus vaccine, live, oral Berenice Katelyn INSTALLATION & MAINTENANCE EXECUTIVE.CHARGE HISTOTECHNOLOGIST Work Phone: [facility] 03-01-1994 haemophilus influenz ae type b vaccine, conjugate unspecified formulation Berenice Katelyn INSTALLATION & MAINTENANCE EXECUTIVE.CHARGE HISTOTECHNOLOGIST Work Phone: [facility] 03-01-1994 hepatitis B vaccine, pediatric or pediatric/adolescent dosage Berenice Katelyn INSTALLATION & MAINTENANCE EXECUTIVE.CHARGE HISTOTECHNOLOGIST Work Phone: [facility] 03-01-1994 measles, mumps and rubella virus vaccine Berenice Katelyn INSTALLATION & MAINTENANCE EXECUTIVE.CHARGE HISTOTECHNOLOGIST Work Phone: [facility] 07-27-1993 diphtheria, tetanus toxoids and pertussis vaccine Berenice Katelyn INSTALLATION & MAINTENANCE EXECUTIVE.CHARGE HISTOTECHNOLOGIST Work Phone: [facility] 07-27-1993 haemophilus influenz ae type b vaccine, conjugate unspecified formulation Berenice Webbtter INSTALLATION & MAINTENANCE EXECUTIVE.CHARGE HISTOTECHNOLOGIST Work Phone: [facility] 07-27-1993 hepatitis B vaccine, pediatric or pediatric/adolescent dosage Berenice Katelyn INSTALLATION & MAINTENANCE EXECUTIVE.CHARGE HISTOTECHNOLOGIST Work Phone: [facility] 03-16-1993 diphtheria, tetanus toxoids and pertussis vaccine Berenice Katelyn INSTALLATION & MAINTENANCE EXECUTIVE.CHARGE HISTOTECHNOLOGIST Work Phone: [facility] 03-16-1993 haemophilus influenz ae type b vaccine, conjugate unspecified formulation Berenice Katelyn INSTALLATION & MAINTENANCE EXECUTIVE.CHARGE HISTOTECHNOLOGIST Work Phone: [facility] 03-16-1993 trivalent poliovirus vaccine, live, oral Berenice Webbtter INSTALLATION & MAINTENANCE EXECUTIVE.CHARGE HISTOTECHNOLOGIST Work Phone: [facility] 1992 diphtheria, tetanus toxoids and pertussis vaccine Berenice Katelyn INSTALLATION & MAINTENANCE EXECUTIVE.CHARGE HISTOTECHNOLOGIST Work Phone: [facility] 1992 haemophilus influenz ae type b vaccine, conjugate unspecified formulation Berenice Mirandaer INSTALLATION & MAINTENANCE EXECUTIVE.CHARGE HISTOTECHNOLOGIST Work Phone: [facility] 1992 trivalent poliovirus vaccine, live, oral Berenice Katelyn INSTALLATION & MAINTENANCE EXECUTIVE.CHARGE HISTOTECHNOLOGIST Work Phone: [facility] Payers Date Payer Category Payer [facility] [id number] 2023 Unknown [id number] 2023 Private Health Insurance [employer] [id number] 2023 Unknown [id number] 2022 Self-pay 2022 Unknown [id number] 2019 Blue Cross Blue Shie ld Managed Care - Other [id number] 2019 Unknown [employer] BLUE CARD PPO OOS [id number] 2019-Present [phone] [address] [place] [address] PPO [id number] 2019 Unknown [id number] [id number]. [id number] 1992 Unknown [id number] 2.16840.1.005252.3.579.2. 1286 1992 Unknown [id number] 2.16840.1.994778.3.579.2. 1286 1992 Unknown [id number] 2.16840.1.197363.3.579.2. 1286 1992 Unknown [id number] 2.16840.1.381111.3.579.2. 1259 1992 Unknown [id number] 2.16840.1.945756.3.579.2. 1259 1992 Unknown [id number] 2.16840.1.036332.3.579.2. 1259 1992 Unknown [id number] 2.16840.1.593348.3.579.2. 1258 1992 Unknown [id number] 2.16.840.1.404251.3.579.2. 9 1992 Unknown [id number] 2.16.840.1.915064.3.579.2. 1258 1992 Unknown [id number] 2.16.840.1.348220.3.579.2. 1258 1992 Unknown [id number] 2.16.840.1.988915.3.579.2. 1258 1992 Unknown [id number] 2.16.840.1.952772.3.579.2. 1258 1992 Unknown [id number] 2.16840.1.003308.3.579.2. 1258 1992 Unknown [id number] 2.840.1.985019.3.579.2. 1258 1992 Unknown [id number] 2.840.1.608774.3.579.2. 1258 1992 Unknown [id number] 2.16840.1.929062.3.579.2. 1258 1992 Unknown [id number] 2.16840.1.812807.3.579.2. 1258 1992 Unknown [id number] 2.16840.1.238877.3.579.2. 1259 Unknown [id number] 216840.1.159427.3.579.2. 531 Unknown [id number] 2.16840.1.706242.3.579.2. 531 Social History Date Type Detail Facility Tobacco smoking stat us NDIS Tobacco smoking consumption unknown [facility] Start: 1990 Sex Assigned At Not on file [facility] Start: 01-15-2022 End: 10-17-2023 Tobacco smoking status NDIS Never smoked tobacco [facility] Start: 01-15-2022 End: 10-17-2023 Tobacco use and exposure Smokeless tobacco non-user [facility] Start: 01-15-2022 End: 08-23-2023 Alcohol intake Current drinker of alcohol (finding) [facility] Start: 01-15-2022 End: 07-25-2024 Alcohol intake [facility] Start: 01-12-2022 History SDOH Alcohol Frequency 2 [facility] Start: 01-12-2022 History SDOH Alcohol Std Drinks 1 [facility] Start: 01-15-2022 History SDOH Alcohol Comment occ. drink [facility] Start: 01-12-2022 History SDOH Social Connections Phone 5 [facility] Start: 01-12-2022 History SDOH Social Connections Get Together 4 [facility] Start: 01-12-2022 History SDOH Social Connections Living 7 [facility] Start: 01-12-2022 History SDOH Physical Activity MPS 3 [facility] Start: 1990 Sex Assigned At Female [facility] Start: 01-12-2022 End: 07-25-2024 Social connection and isolation panel [facility] Do you belong to any clubs or organizations such as restorationist groups, [employer], [employer] or athletic groups, or school groups? No [facility] Are you now , , , , never or living with a partner? Never [facility] How often to you hav e a drink containing alcohol? Monthly or less [facility] How many standard dr inks containing alcohol do you have on a typical day? 1 or 2 [facility] How often do you hav e 6 or more drinks on 1 occasion? Never [facility] How hard is it for y ou to pay for the very basics like food, housing, medical care, and heating Not hard at all [facility] Do you feel stress - tense, restless, nervous, or anxious, or unable to sleep at night because your mind is troubled all the time - these days [OSQ] Not at all [facility] (I/We) worried wheth er (my/our) food would run out before (I/we) got money to buy more. Never true [facility] Start: 01-12-2022 Gender identity Identifies as female gender (finding) [facility] Are you now , , , , never or living with a partner? Living with partner [facility] How hard is it for y ou to pay for the very basics like food, housing, medical care, and heating Not very hard [facility] Do you feel stress - tense, restless, nervous, or anxious, or unable to sleep at night because your mind is troubled all the time - these days [OSQ] To some extent [facility] The food that (I/we) bought just didn't last, and (I/we) didn't have money to get more. DK or Refused [facility] Start: 10-17-2023 End: 03-13-2025 Alcoholic beverage intake Ex-drinker (finding) [facility] Start: 10-17-2023 Alcohol Comment Caffeine intake: 1cup coffee/ day [facility] Start: 09-14-2023 [facility] Start: 04-22-2015 Sex Female (finding) [facility] Medical Equipment Procedure Code Equipment Code Equipment Origin al Text Equipment Identifier Dates 1 strip by In Vi tro route Daily Use in the morning prior to breakfast, 1 hour after each meal for a total of 4times daily. [id number] Start: 02-04-2025 End: 03-06-2025 1 each by In Vit ro route Daily Use to check FSBS four times daily [id number] Start: 02-04-2025 End: 03-06-2025 Use to inject insulin nightly [id number] Start: 03-12-2025 Goals Date Patient Goal Desired [...] to schedule a follow-up visit with a [facility] provider for the second week in April. documented in this encounter [facility] 04-09-2025 Telephone encounter Note Called regarding blood sugar logs from 04/01/2025-04/07/2025 but the call went straight to voicemail. She had 4 elevated post prandial blood sugars, no pattern, but she did note that they were most likely related to higher carbohydrate meals. Continue with 10 units of Lantus and sending blood sugars weekly. Reminded to schedule a follow-up visit with a [facility] provider for the second week in April. [facility] Work Phone: 04-01-2025 Miscellaneous Notes Left message for patient to call MFM back to reschedule a 4 week video visit shobha Marr. documented in this encounter [facility] 04-01-2025 Telephone encounter Note Left message for patient to call MFM back to reschedule a 4 week video visit shobha Marr. [facility] 04-01-2025 History of Present illness [...] nightly, Disp: 100 each, Rfl: 2 25-IRON GIT-RATVX-RBT ORAL, Take 1 tablet by mouth in [...] Delivery recommendations : - Recommend delivery at [id number] - reviewed with pateint - Discuss delivery [...] values to us weekly by e-mail to: [email or web address] or by fax to: [phone] Daisha Morel PA-C [facility] Office phone: [phone] Daisha Morel PA-C 04/01/25 1331 documented in this encounter [facility] 04-01-2025 Miscellaneous Notes Left message to remind patient of video visit today at 10 AM. Call back number given to reschedule if unable to keep appointment. documented in this encounter [facility] 04-01-2025 Telephone encounter Note Left message to remind patient of video visit today at 10 AM. Call back number given to reschedule if unable to keep appointment. [facility] 03-27-2025 History of Present illness Narrative Reason [...] nursing note reviewed. Exam conducted with a document image technician present. Vitals: Estimated body mass index is 36.28 kg/m as calculated from the following: Height as of 24: 5' 3 . Weight as of this encounter: 204 lb 12.8 oz. BP: 116/72 Patient's last menstrual period was 08/12/2024. ASSESSMENT & PLAN ICD-10-CM 1. Third trimester ([facility]) Z34.93 POCT urinalysis dipstick manually resulted 2. H/O gastric sleeve Z90.3 POCT urinalysis dipstick manually resulted 3. Gestational diabetes mellitus (GDM), antepartum, gestational diabetes method of control unspecified ([facility]) O24.419 POCT urinalysis dipstick manually resulted 4. 32 weeks gestation of ([facility]) Z3A.32 POCT urinalysis dipstick manually resulted [...] appointment. Patient continues to send FSBS to [facility] and doing well and [facility] continues to manage her Lantus dosing. She will begin NST/ BPP this week. Documented by Adelaida Dugan NP on behalf of: Roscoe Diaz DO documented in this encounter [facility] 03-26-2025 Miscellaneous Notes Called regarding blood sugar logs from 03/18/2025-03/24/2025 but received voicemail. Caryl had one elevated fasting blood sugar ( she may not of had a snack the night before) and three elevated blood sugars after dinner. She is taking 10 units of Lantus in the evening. Will send a MyChart message. documented in this encounter [facility] 03-26-2025 Telephone encounter Note Called regarding blood sugar logs from 03/18/2025-03/24/2025 but received voicemail. Caryl had one elevated fasting blood sugar ( she may not of had a snack the night before) and three elevated blood sugars after dinner. She is taking 10 units of Lantus in the evening. Will send a MyChart message. [employer] Work Phone: 03-19-2025 Miscellaneous Notes Blood glucose [...] now in target. [facility]25 Telephone encounter Note Blood glucose log from 03/11/25 to 03/17/25 received. Patient did not answer. I left a voicemail asking her to check for a new MyChart message that I am going to leave with questions about her dinner values (4 out of 7 were still elevated). Patient started Lantus on 03/12/25 and all fasting BG now in target. [facility] 03-13-2025 History of Present illness Narrative Reason [...] PLAN ICD-10-CM 1. 30 weeks gestation of ([facility]) Z3A.30 POCT urinalysis dipstick manually resulted 2. Third trimester ([facility]) Z34.93 POCT urinalysis dipstick manually resulted 3. H/O gastric sleeve Z90.3 4. Gestational diabetes mellitus (GDM), antepartum, gestational diabetes method of control unspecified ([facility]) O24.419 Return OB: Patient presents today for [...] of: SLICK Matias documented in this encounter [facility] 03-12-2025 History of Present illness Narrative Headache/epigastric [...] nausea or vomiting., Disp: , Rfl: 25-IRON [id number] ORAL, Take 1 tablet by mouth in [...] more likely to fail compared to insulin. custodial data on children whose mothers took oral [...] hypoglycemia, and examples of treatment of hypoglycemia (1515 rule). Discussed her current diet and her [...] Delivery recommendations : - Recommend delivery at [id number] - reviewed with pateint - Discuss delivery [...] values to us weekly by e-mail to: [email or web address] or by fax to: [phone] Daisha Morel PA-C [facility] Office phone: [phone] Daisha Morel PA-C 03/12/25 1500 Summary: MFM [...] time 10 minutes. documented in this encounter [facility] 03-05-2025 Miscellaneous Notes Called regarding blood sugar logs from 02/25/2025-03/03/2025 but the call went directly to [employer]. Caryl had 1 one elevated fasting blood sugar, 1 elevated blood sugar after breakfast, one elevated blood sugar after lunch, and 4 elevated blood sugars after dinner. Will send a [employer] message. documented in this encounter [facility] 03-05-2025 Telephone encounter Note Called regarding blood sugar logs from 02/25/2025-03/03/2025 but the call went directly to [employer]. Caryl had 1 one elevated fasting blood sugar, 1 elevated blood sugar after breakfast, one elevated blood sugar after lunch, and 4 elevated blood sugars after dinner. Will send a [employer] message. [employer] Work Phone: 02-27-2025 History of Present illness Narrative Reason for Appointment: Patient ID: Caryl Zamarripa is a 34 y.o. female who presents for Routine Visit Patient presents today for Return OB appointment. MEDICATIONS Current Outpatient Medications Medication Instructions Alcohol Swabs (Alcohol Prep Pad) 70 % pads 1 Pad, Topical, Daily, Use four times daily to check FSBS. Blood Glucose Monitoring Suppl (Blowtorch Glucometer) w/Device kit 1 kit, Does not [...] nursing note reviewed. Exam conducted with a document image technician present. Vitals: Estimated body mass index is 36.1 kg/m as calculated from the following: Height as of 07/25/24: 5' 3 . Weight as of this encounter: 203 lb 12.8 oz. BP: 110/60 Patient's last menstrual period was 08/12/2024. ASSESSMENT & PLAN ICD-10-CM 1. 28 weeks gestation of ([facility]) Z3A.28 POCT urinalysis dipstick manually resulted 2. Third trimester ([facility]) Z34.93 POCT urinalysis dipstick manually resulted 3. H/O gastric sleeve Z90.3 4. Gestational diabetes mellitus (GDM), antepartum, gestational diabetes method of control unspecified ([facility]) O24.419 Return OB: Patient presents today for [...] Roscoe Diaz DO documented in this encounter [facility] 02-26-2025 Miscellaneous Notes Called regarding blood sugar [...] a MyChart message. documented in this encounter [facility] 02-26-2025 Telephone encounter Note Called [...] questions. Will also send a MyChart message. [facility] Work Phone: 02-14-2025 Group counseling [...] of food logs and blood glucoses to [email or web address], next Tuesday night/Tuesday morning. Please refer to health habits for other goals. Breakfast 6-6:30 AM 15-25 grams of CHO, Snack 9 AM 15-30 grams of CHO, Lunch 11:30-Noon 45 grams of CHO, Snack 2-3 PM 15-30 grams of CHO, Dinner 6 PM 45 grams of CHO, HS Snack 8-9 PM 15-30 grams of CHO. Face to face time was 70 minutes. [employer] Work Phone: 02-14-2025 Miscellaneous Notes Patient: Caryl [...] of food logs and blood glucoses to [email or web address], next Tuesday/Tuesday morning. Please refer to health habits for other goals. Breakfast 6-6:30 AM 15-25 grams of CHO, Snack 9 AM 15-30 grams of CHO, Lunch 11:30-Noon 45 grams of CHO, Snack 2-3 PM 15-30 grams of CHO, Dinner 6 PM 45 grams of CHO, HS Snack 8-9 PM 15-30 grams of CHO. Face to face time was 70 minutes. documented in this encounter [facility] [employer] [facility] 02-11-2025 History of Present illness Narrative [...] nursing note reviewed. Exam conducted with a document image technician present. Vitals: Estimated body mass index is 35.87 kg/m as calculated from the following: Height as of 07/25/24: 5' 3 . Weight as of this encounter: 202 lb 8 oz. BP: 110/60 Patient's last menstrual period was 08/12/2024. ASSESSMENT & PLAN ICD-10-CM 1. Second trimester ([facility]) Z34.92 POCT urinalysis dipstick manually resulted 2. 26 weeks gestation of ([facility]) Z3A.26 3. H/O gastric sleeve Z90.3 US [...] Adelaida Dugan NP documented in this encounter [facility] 01-10-2025 History of Present illness Narrative Reason [...] nursing note reviewed. Exam conducted with a document image technician present. Vitals: Estimated body mass index is [...] Roscoe Diaz DO documented in this encounter [facility] 12-10-2024 History of Present illness Narrative [...] nursing note reviewed. Exam conducted with a document image technician present. Vitals: Estimated body mass index is [...] of: SLICK Matias documented in this encounter [facility] 11-08-2024 History of Present illness Narrative [...] Roscoe Diaz DO documented in this encounter [facility] 10-18-2024 History of Present illness Narrative [...] meat, [facility]. Patient has also been advised to [...] Monika Mesa LPN documented in this encounter [facility] 08-02-2024 History of Present illness Narrative Images from the original note were not included. [address] , [address] [facility], [address] P: [phone] F: [phone] HPI Historian of HPI: patient Caryl Zamarripa [...] Left Turbinates: Enlarged and swollen. Mouth/Throat: Lips: [place]. Mouth: Mucous membranes are moist. Pharynx: Oropharynx [...] tablet; Refill: 0 documented in this encounter [facility] 07-25-2024 History of Present illness Narrative [...] Use: Not At Risk (07/19/2023) Received from [facility] AUDIT-C Frequency of Alcohol Consumption: Monthly or less Average Number of Drinks: 1 or 2 Frequency of Binge Drinking: Never Depression: Not at risk (06/29/2024) Received from [facility] PHQ-2 PHQ-2 score: 0 Physical Activity: Insufficiently Active (07/19/2023) Received from [facility], [facility] Exercise Vital Sign Days of [...] Alexandro Garner DO documented in this encounter [facility] 06-29-2024 Note HNO ID: [id number] Author: BERENICE ZEPEDA APRN.CHARGE HISTOTECHNOLOGIST Service: ? Author Type: Nurse Practitioner Type: [...] - PHENTERMINE 37.5 MG TABLET Berenice Zepeda APRN.[facility] 06-29-2024 History of Present illness Narrative [...] - PHENTERMINE 37.5 MG TABLET Berenice Zepeda APRN.CHARGE HISTOTECHNOLOGIST documented in this encounter [facility] 03-06-2024 Telephone encounter Note Order formatted Please advise [facility] 03-06-2024 Miscellaneous Notes Order formatted Please advise documented in this encounter [facility] 09-23-2023 Note HNO ID: [id number] Author: BERENICE ZEPEDA APRN.CHARGE HISTOTECHNOLOGIST Service: ? Author Type: Nurse Practitioner Type: Progress Notes Filed: 09/23/2023 15:52 Note Text: VIRTUAL VISIT PROGRESS NOTE This is a virtual visit using [employer] Video Visit. It required patient-provider interaction for the medical decision making as documented below. I have communicated my name and active licensure. The patient's identity and physical location were verified at the time of this visit. Either the patient or their legal medical sales representative has been informed of the [...] Outpatient Medications Medication Sig Omeprazole Magnesium (ACID PRACTICE SPECIALIST, OMEPRAZOLE,) 20 mg cpDR No current facility-administered [...] on file for this visit. Berenice Zepeda APRN.CNP [facility] 09-23-2023 History of Present illness Narrative VIRTUAL VISIT PROGRESS NOTE This is a virtual visit using [employer] Video Visit. It required patient-provider interaction for the medical decision making as documented below. I have communicated my name and active licensure. The patient's identity and physical location were verified at the time of this visit. Either the patient or their legal medical sales representative has been informed of the [...] Outpatient Medications Medication Sig Omeprazole Magnesium (ACID PRACTICE SPECIALIST, OMEPRAZOLE,) 20 mg cpDR No current facility-administered [...] Berenice Zepeda APRN.GIORGI documented in this encounter [facility] 08-23-2023 Note HNO ID: [id number] Author: BERENICE ZEPEDA APRN.CNP Service: ? Author [...] PHENTERMINE 37.5 MG TABLET Berenice Zepeda APRN.CNP [facility] 07-21-2023 Note HNO ID: [id number] Author: Berenice Zepeda APRN.CNP Service: ? Author Type: Nurse Practitioner Type: Progress Notes Filed: 07/22/2023 10:16 AM Note Text: Caryl Zamarripa is a 32 year old female here today for review of established medical problems as well as comprehensive physical examination. Obesity S/p gastric sleeve surgery in 03/[address] [facility] in [place] Down about 70lb, has reached plateau Gym 4 days per week with cardio (treadmill, elliptical) Maybe not enough water Tries to focus on more protein, lower carbs Last 10 Encounter Wt Readings: Date: Wt: 07/21/2023 80.1 kg (176 lb 8 oz) 07/06/2022 81.6 kg (180 lb) 01/15/2022 104.3 kg (230 lb) [facility] HM needs: Hepatitis B Vaccine(1 of 3 - 3-dose series) Never done Depression Assessment Never done HPV Testing Never done PAST MEDICAL HISTORY Diagnosis Date GERD (gastroesophageal reflux disease) Prediabetes PAST SURGICAL HISTORY Procedure Laterality Date PT ED BARIATRIC AND METABOLIC gastric sleeve 03/2022 ALLERGIES Patient has no known allergies. MEDICATIONS Omeprazole Magnesium (ACID PRACTICE SPECIALIST, OMEPRAZOLE,) 20 mg cpDR Phentermine HCl 37.5 [...] No history of dysuria, frequency or incontinence HONEY EXTRACTOR: Negative for abnormal vaginal bleeding, abnormal vaginal [...] and symmetric. Sensation grossly intact. Breast/Pelvic: Per HONEY EXTRACTOR ASSESSMENT/PLAN: 1. Routine adult health maintenance - ICD9: V70.0, ICD10: Z00.00 (primary diagnosis) - Counseled on healthy diet and regular exercise - Calcium intake with supplements or by diet of 1000 mg/day for under 50, 6546-1882 mg/day for 50+ - Discussed need and [...] comorbidity present - (more content not included)... [facility] 07-21-2023 History of Present illness Narrative Caryl Zamarripa is a 32 year old female here today for review of established medical problems as well as comprehensive physical examination. Obesity S/p gastric sleeve surgery in 03/[address] [facility] in [place] Down about 70lb, has reached plateau Gym 4 days per week with cardio (treadmill, elliptical) Maybe not enough water Tries to focus on more protein, lower carbs Last 10 Encounter Wt Readings: Date: Wt: 07/21/2023 80.1 kg (176 lb 8 oz) 07/06/2022 81.6 kg (180 lb) 01/15/2022 104.3 kg (230 lb) [facility] EX[facility] Im[facility] control HM needs: Hepatitis B Vaccine(1 of 3 - 3-dose series) Never done Depression Assessment Never done HPV Testing Never done PAST MEDICAL HISTORY Diagnosis Date GERD (gastroesophageal reflux disease) Prediabetes PAST SURGICAL HISTORY Procedure Laterality Date PT ED BARIATRIC AND METABOLIC gastric sleeve 03/2022 ALLERGIES Patient has no known allergies. MEDICATIONS Omeprazole Magnesium (ACID PRACTICE SPECIALIST, OMEPRAZOLE,) 20 mg cpDR Phentermine HCl 37.5 [...] No history of dysuria, frequency or incontinence HONEY EXTRACTOR: Negative for abnormal vaginal bleeding, abnormal vaginal [...] and symmetric. Sensation grossly intact. Breast/Pelvic: Per HONEY EXTRACTOR ASSESSMENT/PLAN: 1. Routine adult health maintenance - ICD9: V70.0, ICD10: Z00.00 (primary diagnosis) - Counseled on healthy diet and regular exercise - Calcium intake with supplements or by diet of 1000 mg/day for under 50, 4005-0821 mg/day for 50+ - Discussed need and [...] - HEP B SURF AB Berenice Zepeda APRN.CHARGE HISTOTECHNOLOGIST ' documented in this encounter [facility] 06-29-2023 Miscellaneous Notes Sent Valtrex 1 gram twice/day for 2 days with one refill. High stress can cause cold sores? How is your stress level? documented in this encounter [facility] 01-15-2022 Instructions Dasha Lujan MD - 01/15/2022 12:05 PM EDT -Get Hgba1c and K level checked in the near future. -Encourage you to lose 2 lbs/week as a healthy way via diet and exercise -Should you have any questions or concerns, do not hesitate to contact me anytime via my chart (Dr.Sunir Lujan) documented in this encounter [facility] 01-15-2022 History of Present illness Narrative Caryl Zamarripa is a 31 year old female who presents with Establish Care -Pt is here to Establish Care. 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 at [place]. Says all labs checked out fine per pt discussion. Pt says she did get her thyroid lab work checked 4 years ago, and all checked out fine. Thyroid blood work was also checked recently. -OARRS reviewed: clean -Wheel Mill Operator: deferred seeing one at this time as pt is undergoing gastric sleeve evaluation (Bariatric Surgery) at [facility]. Pt says that she just needs [...] process to get Bariatric Surgery done at [facility]. (R73.9) Blood glucose elevated Plan: HGB A1C (E87.5) Hyperkalemia Plan: POTASSIUM BLD -Will have her get K level rechecked. (K76.0) Hepatic steatosis -LFT were normal. -Encourage weight reduction and avoid alcohol and tylenol as much as possible. -Will continue to monitor LFT. Dasha Lujan MD documented in this encounter [facility] 01-08-2022 Miscellaneous Notes Will advise on Tuesday when he returns Patient calling stating Dr Lujan agreed to take her into his practice but no documentation found in patient chart. Please advise. documented in this encounter [facility] Evaluation note Diagnosis Preoperative clearance- Primary Preoperative examination, unspecified Obesity (BMI 30-39.9) Obesity, unspecified Blood glucose elevated Other abnormal glucose Hyperkalemia Hyperpotassemia Hepatic steatosis Other chronic nonalcoholic liver disease [facility] noteNo assessment information availableK[facility] Work Phone: Evaluation note* Diagnosis Routine [...] Antibody response examination [facility] Diagnosis Encounter for weight management Overweight (BMI 25.0-29.9) Overweight [facility] Diagnosis Encounter for weight management- Primary Overweight [facility]* Diagnosis Rectal bleeding- Primary Hemorrhage of rectum and anus documented in this encounter [facility]* Diagnosis Acute cough- Primary Chest congestion Other symptoms involving respiratory system and chest Bronchitis Bronchitis, not specified as acute or chronic documented in this encounter [facility]* Diagnosis Missed menses , unspecified gestational age Encounter for supervision of normal first in first trimester Nausea and vomiting in Unspecified vomiting of , unspecified as to episode of care documented in this encounter [facility]* Diagnosis 12 weeks gestation of documented in this encounter [facility] note* Diagnosis Well woman exam with routine gynecological exam Routine gynecological examination Second trimester state, incidental 17 weeks gestation of Exposure to STD Need for maternal serum alpha-protein (MSAFP) screening Screening, , for anatomic survey Encounter for anatomic survey documented in this encounter [facility]* Diagnosis 21 weeks gestation of Second trimester state, incidental Diabetes mellitus screening Screening for diabetes mellitus documented in this encounter [facility]* Diagnosis Second trimester ([facility]) state, incidental 26 weeks gestation of ([facility]) H/O gastric sleeve documented in this encounter [facility]* Diagnosis Gestational diabetes mellitus (GDM) in second trimester, gestational diabetes method of control unspecified- Primary [facility] Diagnosis 28 weeks gestation of ([facility]) Third trimester ([facility]) state, incidental H/O gastric sleeve Gestational diabetes mellitus (GDM), antepartum, gestational diabetes method of control unspecified ([facility]) documented in this encounter [facility]* Diagnosis Gestational diabetes mellitus (GDM) in second trimester, gestational diabetes method of control unspecified- Primary Gestational diabetes requiring insulin Abnormal maternal glucose tolerance, complicating , childbirth, or the puerperium, unspecified as to episode of care [facility]* Diagnosis 30 weeks gestation of ([facility]) Third trimester ([facility]) state, incidental H/O gastric sleeve Gestational diabetes mellitus (GDM), antepartum, gestational diabetes method of control unspecified ([facility]) documented in this encounter [facility]* Diagnosis Gestational diabetes requiring insulin- Primary Abnormal maternal glucose tolerance, complicating , childbirth, or the puerperium, unspecified as to episode of care documented [facility]* Diagnosis Third trimester ([facility]) state, incidental H/O gastric sleeve Gestational diabetes mellitus (GDM), antepartum, gestational diabetes method of control unspecified ([facility]) 32 weeks gestation of ([facility]) documented in this encounter [facility] HealthcareInstructionsNot on filedocumented in this encounterTuscarawas [facility] SystemInstructionsNot on filedocumented in this encounterTuscarawas Hospital SystemInstructionsNot on filedocumented in this encounterTuscarawas Hospital SystemInstructionsNot on filedocumented in this encounterTuscarawas Hospital System InstructionsNot on filedocumented in this encounterTuscarawas Hospital [facility] InstructionsNot on filedocumented in this encounterTuscarawas Hospital [facility] Summary Purpose Family History No Family [...] Referral Specialty Diagnoses / Procedures Referred By Contac t Referred To Contact Diagnoses Encounter for weight management Class 1 obesity due to excess calories with body mass index (BMI) of 30.0 to 30.9 in adult, unspecified whether serious comorbidity present Berenice Zepeda APRN.CHARGE HISTOTECHNOLOGIST [address] [place] [address] Referral ID Status Reason Start Date Expiration Date Visits Re quested Visits Authorized [id number] Closed 1 1 Specialty Diagnoses / Procedures Referred By Contac t Referred To Contact Diagnoses Encounter for weight management Overweight (BMI 25.0-29.9) Berenice Zepeda APRN.CHARGE HISTOTECHNOLOGIST [address] [place] [address] Referral ID Status Reason Start Date Expiration Date Visits Re quested Visits Authorized [id number] Closed 1 1 Additional Source Comments Source Comments (unrecognize d section and content) In the event this informatio n is protected by the Federal Confidentiality of Alcohol and Drug Abuse Patient Records regulations: The Federal rules restrict any use of the information to criminally investigate or prosecute any alcohol or drug abuse patient.[facility] Center[facility] the event this information is protected by the Federal Confidentiality of Alcohol and Drug Abuse Patient Records regulations: The Federal rules restrict any use of the information to criminally investigate or prosecute any alcohol or drug abuse patient.[facility] CenterIn the event this information is protected by the Federal Confidentiality of Alcohol and Drug Abuse Patient Records regulations: The Federal rules restrict any use of the information to criminally investigate or prosecute any alcohol or drug abuse patient.[facility] CenterIn the event this information is protected by the Federal Confidentiality of Alcohol and Drug Abuse Patient Records regulations: The Federal rules restrict any use of the information to criminally investigate or prosecute any alcohol or drug abuse patient.[facility] CenterIn the event this information is protected by the Federal Confidentiality of Alcohol and Drug Abuse Patient Records regulations: The Federal rules restrict any use of the information to criminally investigate or prosecute any alcohol or drug abuse patient.[facility] CenterIn the event this information is protected by the Federal Confidentiality of Alcohol and Drug Abuse Patient Records regulations: The Federal rules restrict any use of the information to criminally investigate or prosecute any alcohol or drug abuse patient.[facility] CenterIn the event this information is protected by the Federal Confidentiality of Alcohol and Drug Abuse Patient Records regulations: The Federal rules restrict any use of the information to criminally investigate or prosecute any alcohol or drug abuse patient.[facility] Reason for Visit (unrecogniz ed [...] Contact General Surgery Diagnoses Rectal bleeding Procedures [place] OFFICE/OUTPATIENT [facility] Sina Garner, [address] [place] [address] Phone: tel: fax: Sina Garner, [address] [place] [address] Phone: tel: fax: Referral ID Status Reason Start Date Expiration Date V isits Requested Visits Authorized [id number] Closed Specialty Services Required 07/11/2024 01/07/2025 1 1 Reason Comments Amenorrhea Reason Comments Routine Visit Reason Comments Elevated Glucose Tolerance Test Specialty Diagnoses / Procedures Referred By Zachery kenyon Referred To Contact Maternal and Medicine Diagnoses Gestational diabetes mellitus (GDM) in second trimester, gestational diabetes method of control unspecified Roscoe Diaz R, DO [address] [place] [address] Phone: tel: fax: Maternal- Medicine at [facility] [address] [facility] [place] [address] Phone: tel: fax: Referral ID Status Reason Start Date Expiration Date Visits Requested Visits Authorized [id number] Pending Review Specialty Services Required 02/06/2025 02/06/2026 1 1 Reason Comments MED START Care Teams (unrecognized sec tion and content) Mortgage Loan Funder Relationship Specialty [place] [address] [place] [address] PCP - General Internal Medicine 01/11/22 Team Status: Inactive Member Role Status Dates Dasha Lujan MD Primary Care Provider Active Reena Breaux APRN COIN COUNTER AND WRAPPER-C Attending Provider Activ emelia Team Status: Active Member Role Status Dates Dasha Lujan MD Primary Care Provider Active Mortgage Loan Funder Relationship Specialty [place] [address] [place] [address] PCP - General Internal Medicine 01/11/22 Mortgage Loan Funder Relationship Specialty [place] [address] [place] [address] PCP - General Internal Medicine 01/11/22 Mortgage Loan Funder Relationship Specialty [place] [address] [place] [address] PCP - General Internal Medicine 01/11/22 Mortgage Loan Funder Relationship Specialty [place] [address] [place] [address] PCP - General Internal Medicine 01/11/22 Mortgage Loan Funder Relationship Specialty [place] [address] [place] [address] PCP - General Internal Medicine 01/11/22 Mortgage Loan Funder Relationship Specialty Start Date End Date Unallocated, Ebenezer Pate MD [address] [place] [address] PCP - General Family Medicine 10/17/23 Mortgage Loan Funder Relationship Specialty Start Date End Date Unallocated, Ebenezer Pate MD [address] [place] [address] PCP - General Family Medicine 10/17/23 Mortgage Loan Funder Relationship Specialty Start Date End Date Unallocated, Ebenezer Pate MD [address] [place] [address] PCP - General Family Medicine 10/17/23 Mortgage Loan Funder Relationship Specialty Start Date End Date Unallocated, Ebenezer Pate MD [address] [place] [address] PCP - General Family Medicine 10/17/23 Mortgage Loan Funder Relationship Specialty Start Date End Date Unallocated, Ebenezer Pate MD [facility] [place] [address] PCP - General Family Medicine 10/17/23 Mortgage Loan Funder Relationship Specialty Start Date End Date Unallocated, Ebenezer Pate MD [address] [place], [place] [address] [address] PCP - General Family Medicine 10/17/23 Edu Alvarez NP [address] [place] [address] PCP - Mazie Commercial 09/22/24 Mortgage Loan Funder Relationship Specialty Start Date End Date Unallocated, Ebenezer Pate MD [facility] [place] [address] PCP - General Family Medicine 10/17/23 Edu Alvarez, COIN COUNTER AND WRAPPER [address] [place] [address] PCP - Mazie Commercial 09/22/24 Mortgage Loan Funder Relationship Specialty Start Date End Date Unallocated, Ebenezer Pate MD [facility] [place] [address] PCP - General Family Medicine 10/17/23 Edu Alvarez, COIN COUNTER AND WRAPPER [address] [place] [address] PCP - Mazie Commercial 09/22/24 Mortgage Loan Funder Relationship Specialty Start Date End Date Unallocated, Ebenezer Pate MD [facility] [place] [address] PCP - General Family Medicine 10/17/23 Edu Alvarez, COIN COUNTER AND WRAPPER [address] [place] [address] PCP - Mazie Commercial 09/22/24 Mortgage Loan Funder Relationship Specialty Start Date End Date Unallocated, Ebenezer Pate MD [facility] [place] [address] PCP - General Family Medicine 10/17/23 Edu Alvarez, COIN COUNTER AND WRAPPER [address] [place] [address] PCP - Mazie Commercial 09/22/24 Mortgage Loan Funder Relationship Specialty Start Date End Date Unallocated, Ebenezer Pate MD [facility] [place] [address] PCP - General Family Medicine 10/17/23 Edu Alvarez NP [address] [place] [address] PCP - Mazie Commercial 09/22/24 Mortgage Loan Funder Relationship Specialty Start Date End Date Unallocated, Ebenezer Pate MD [facility] [place] [address] PCP - General Family Medicine 10/17/23 Edu Alvarez, COIN COUNTER AND WRAPPER [address] [place] [address] PCP - Mazie Commercial 09/22/24 Mortgage Loan Funder Relationship Specialty Start Date End Date Unallocated, Ebenezer Pate MD [facility] [place] [address] PCP - General Family Medicine 10/17/23 Edu Alvarez COIN COUNTER AND WRAPPER [address] [place] [address] PCP - Mazie Commercial 09/22/24 Mortgage Loan Funder Relationship Specialty Start Date End Date Unallocated, Ebenezer Pate MD [address] [place] [address] PCP - General Family Medicine 10/17/23 Edu Alvarez, COIN COUNTER AND WRAPPER [address] [place] [address] PCP - Mazie Commercial 09/22/24 Mortgage Loan Funder Relationship Specialty Start Date End Date Unallocated, Ebenezer Pate MD [address] [place] [address] PCP - General Family Medicine 10/17/23 Edu Alvarez, COIN COUNTER AND WRAPPER [address] [place] [address] PCP - Capo Commercial 09/22/24 INFORMATION SOURCE (unrecogn ized section and content) DATE CREATED AUTHOR 01/16/2022 [facility] DATE CREATED AUTHOR AUTHOR'S ORGANIZ ATION 10/18/2022 [facility] DATE CREATED AUTHOR AUTHOR'S ORGANIZ ATION 07/01/2024 [facility] DATE CREATED AUTHOR AUTHOR'S ORGANIZ ATION 04/02/2025 [facility] DATE CREATED AUTHOR AUTHOR'S ORGANIZ ATION 04/12/2025 [facility] dical Specialists EPIC Goals (unrecognized section and [...] BE BASED ON THE PRIMARY CLINICAL RECORDS. [employer] [facility]. provides no warranty or guarantee of the accuracy or completeness of information in this document.
[2025-04-15 15:37] VITALS: BP 107/58; PULSE 69
== END 2025-04-15 16:03 | disposition home or self-care (01) ==
LOC: US 15:02 → FBC 15:06
PROVIDERS: Visit Provider Physician Assistant
DX: O26.893 Other specified pregnancy related conditions, third trimester (principal); Z3A.35 35 weeks gestation of pregnancy
CPT/HCPCS: 76818

== ENCOUNTER 2025-04-18 15:28 | Outpatient (OUT) | payer BC, SELFPAY ==
--- OUTSIDE RECORDS SUMMARY | 2024-04-12 04:45 | XMS_ITS | Continuity of Care Document ---
Author Organization [email or web address] [facility] Address [address] [place] [address] Phone Care Team Providers Care Gasket Maker Name Role Phone Reena Breaux CNP Unavailable Procedures Procedure Date OFFICE/OUTPATIENT VISIT, EST OFFICE/OUTPATIENT VISIT, EST OFFICE/OUTPATIENT VISIT, EST OFFICE/OUTPATIENT VISIT, EST POSTOP FOLLOW-UP VISIT POSTOP FOLLOW-UP VISIT LAP SLEEVE GASTRECTOMY Sleeve Gastrectomy OFFICE/OUTPATIENT VISIT, EST PSYCH DIAGNOSTIC EVALUATION PSYCL/NRPSYC TST PHY/QHP 1ST PSYCL/NRPSYC TST PHY/QHP OFFICE/OUTPATIENT VISIT, [facility] Advance Directives Directive Yes / No Effective Date File Name No Information Encounters Encounter Description Practice Location Reason(s) For Visit Diagnoses Date Provider Providers Copied on Encounter OFFICE/OUTPATI ENT VISIT, [facility] [email or web address] [facility], [address], [place], [place], [address], [place] tel:[phone] [facility] No Information Saeid Valles. [address] [facility] [address], [place], [place], [address], [place]. tel:[phone] Referring Provider: Reena Breaux, [address] [facility] [address], [place], [address]. tel:[phone] OFFICE/OUTPATI ENT VISIT, [employer] [facility], [address] [place] [address] [address], [place], [place], [address], [place] tel:[phone] [facility] No Information Saeid Valles. [address], [facility] [place], [address], [place]. tel:[phone] Referring Provider: Reena Breaux, [facility] [address], [place], [address]. tel:[phone] OFFICE/OUTPATI ENT VISIT, [employer] [facility], [address], [place], [place], [address], [place] tel:[phone] [facility] No Information Saeid Valles. [address], [place], [place], [address], [place]. tel:[phone] Referring Provider: Reena Breaux, [facility] [address], [place], [address]. tel:[phone] [employer] [facility], [address] [place] [address] [address], [place], [address], [place] tel:[phone] [facility] No Information Saeid Valles. [address], [place], [address], [place]. tel:[phone] Referring Provider: Reena Breaux, [facility] [address], [place], [address]. tel:[phone] [facility], [address] [place] [address] [address], [place], [place], [address], [place] tel:[phone] [facility] No Information Saeid Valles. [address], [place], [place], [address], [place]. tel:[phone] Referring Provider: Reena Breaux, [facility] [address], [place], [address]. tel:[phone] [employer] [facility], [address] [place] [address] [address], [place], [place], [address], [place] tel:[phone] [facility] IP No Information Robert Mcmahon. [address] [facility] [address], [place], [address], [place]. tel:[phone] Referring Provider: Lisandro Lieberman, [address] [facility] [address], [facility] [place], [address]. tel:[phone] [employer] [facility], [address] [place] [address] [address], [place], [address], [place] tel:[phone] [facility] IP No Information Saeid Valles. [address] [facility] [address], [place], [place], [address], [place]. tel:[phone] Referring Provider: Reena Breaux, [address] [place] [address] [address], [place], [address]. tel:[phone] OFFICE/OUTPATI ENT VISIT, [facility] [employer] [facility], [address] [place] [address] [address], [place], [place], [address], [place] tel:[phone] [facility] No Information Robert Mcmahon. [address] [facility] [address], [place], [place], [address], [place]. tel:[phone] Referring Provider: Lisandro Lieberman, [address] [facility] [address], [place], [address]. tel:[phone] PSYCH DIAGNOSTIC EVALUATION [facility] [employer] [facility], [address] [place] [address] [address], [place], [address], [place] tel:[phone] [facility] No Information Omari Beltran. [address] [facility] [address], [place], [place], [address], [place]. tel:[phone] Referring Provider: Ruby Salcido, [address] [place] [address] [address], [place], [address]. tel:[phone] OFFICE/OUTPATI ENT VISIT, [facility], [address], [place], [place], [address], [place] tel:[phone] [facility] No Information Robert Mcmahon. [address] [facility] [address], [place], [place], [address], [place]. tel:[phone] Referring Provider: Lisandro Lieberman, [address], [place], [address]. tel:[phone] Family History Family Member Type Diagnosis Age At Onset No Information Payers Payer name Insurance type Covered democrat ID Bernice harley(gilmar) Capo [id number] Social History Type Description Quantity Date Captured [...]
--- OUTSIDE RECORDS SUMMARY | 2025-04-08 10:00 | XMS_ITS | Encounter Summary ---
Author Organization [facility] Address [address] [place] [address] Care Team Providers Care Community Pharmacist Name Role Phone Unallocated, Noms Provider Primary Care Provi chrissy Amalia Bruce DIAMOND DRILLER HELPER Unavailable [phone] Encounter Details Date Type Department Care Team (Latest Contact Info) Description 04/08/2025 10:00 AM EDT Ancillary Procedure [facility] [address] [place] [address] H/O gastric sleeve Social History Tobacco [...] EDT Routine [facility] [address] [place] [address] Roscoe Diaz DO [address] [facility] [address] [place] [address] documented as of this encounter Goals Goal [...] II, MD, PHD at 09-Apr-2025 07:59:18 AM [facility] Procedure Note Brittany Ferreira MD - [...] signed by BRITTANY FERREIRA II, MD, PHD [id number] 07:59:18 AM [facility] us Roscoe Joe DO IMG OB US PROCEDURES Final Resul t documented in this encounter Visit Diagnoses Diagnosis H/O gastric sleeve documented in this encounter Additional Health Concerns Active Problems Noted Date Diagnosed Date OB Reminders 10/19/2024 documented as of this encounter Care Teams Community Pharmacist Relationship Specialty Start Date End Date Unallocated, Noms Provider, [address] [place], [place] [id number] PCP - General Family Medicine 10/17/23 Amalia Bruce NP [address] [place] [address] PCP - [place] Commercial 09/22/24 documented as of this encounter
--- OUTSIDE RECORDS SUMMARY | 2025-04-10 15:00 | XMS_ITS | Encounter Summary ---
Author Organization [facility] Address [address] [place] [address] Care Team Providers Care Senior Peoplesoft Developer Name Role Phone Unallocated, Noms Provider Primary Care Provi chrissy Amalia Bruce SHEET IRONWORKER Unavailable [phone] Encounter Details Date Type Department Care Team (Late st Contact Info) Description 04/10/2025 3:00 PM EDT Routine [facility] [address] [address] Roscoe Diaz DO [address] [facility] [address] [place], [facility] 34 weeks gestation of ([facility]); Third trimester ([facility]); H/O gastric sleeve; Insulin controlled gestational diabetes mellitus (GDM) during , antepartum ([facility]) Social History Tobacco Use Types Packs/Day Years [...] documented in this encounter Progress Notes * Samia King, COOPER - 04/10/2025 3:00 PM EDT Reason for Appointment: Patient ID: Caryl Garcia is a 34 y.o. female who presents for No chief complaint on file. Patient presents today for Return OB appointment. MEDICATIONS Current Outpatient Medications Medication Instructions Alcohol Swabs (Alcohol Prep Pad) 70 % pads 1 Pad, Topical, Daily, Use four times daily to check FSBS. aspirin 81 mg, Daily Blood Glucose Monitoring Suppl ([facility] Glucometer) w/Device kit 1 kit, Does not [...] nursing note reviewed. Exam conducted with a telemetry rn present. Vitals: Estimated body mass index is 37.22 kg/m?? as calculated from the following: Height as of 24: 5' 3 . Weight as of this encounter: 210 lb 1.9 oz. BP: 120/70 Patient's last menstrual period was 08/12/2024. ASSESSMENT & PLAN ICD-10-CM 1. 34 weeks gestation of ([facility]) Z3A.34 POCT urinalysis dipstick manually resulted 2. Third trimester ([facility]) Z34.93 POCT urinalysis dipstick manually resulted 3. H/O gastric sleeve Z90.3 4. Insulin controlled gestational diabetes mellitus (GDM) during , antepartum ([facility]) O24.414 Return OB: Patient presents today for a routine obstetrics appointment. Patient is currently 34w3d . Patient states she is doing well [...] AM EDT Routine [facility] [address] [phone] Roscoe Diaz DO [address] [facility] [place] [address] documented as of this encounter Goals Goal Patient Goal Type Associated Problems Recent Progress Patient-Stated? Author Reminders Care Plan OB Reminders No Open Scheduling, Background documented as of this encounter Procedures Procedure Name Priority Date/Time Associated Diagnosis Comments POCT URINALYSIS DIPSTICK Routine 04/10/2025 3:21 PM EDT 34 weeks gestation of ([facility]) Third trimester ([facility]) documented in this encounter Results * (ABNORMAL) [...] - 9 Protein, UA Positive Negative - 2000(20) ++++ mg/dL Urobilinogen, UA 1.0 0.2 - 12 mg/dL Leukocytes, UA Positive Negative - 500+++ Mari/mcL Nitrite, UA Negative Negative - Positive Urine 04/10/2025 3:21 PM EDT Roscoe Diaz DO POINT OF CARE TEST ENTER/EDIT OR DERABLES Final Result documented in this encounter Visit Diagnoses Diagnosis 34 weeks gestation of ([facility]) Third trimester ([facility] state, incidental H/O gastric sleeve Insulin controlled gestational diabetes mellitus (GDM) during , antepartum ([facility]) documented in this encounter Additional Health Concerns Active Problems Noted Date Diagnosed Date OB Reminders 10/19/2024 documented as of this encounter Care Teams Senior Peoplesoft Developer Relationship Specialty Start Date End Date Unallocated, Noms Provider, [address] [place] [address] PCP - General Family Medicine 10/17/23 Amalia Bruce NP [address] [place] [address] PCP - Capo Wild 09/22/24 documented as of this encounter
--- OUTSIDE RECORDS SUMMARY | 2025-04-18 15:29 | XMS_ITS | Encounter Summary ---
Author Organization [facility] Address [address] [place] [address] Care Team Providers Care Electric Power Line Repairer Name Role Phone Unallocated, Noms Provider Primary Care Provi chrissy Amalia Bruce TICKET COUNTER Unavailable [phone] Encounter Details Date Type Department Care Team (Late st Contact Info) Description 04/15/2025 Clinisync Result Encounter [facility] External Department Unsolicited Rosy Quiroz PA [address] [place] [address] Social History Tobacco Use Types Packs/Day Years [...] AM EDT Routine [facility] [address] [place] [phone] Roscoe Diaz, DO [address] [facility] [place] [address] documented as of this encounter Goals Goal Patient Goal Type Associated Problems Recent Progress Patient-Stated? Author Reminders Care Plan OB Reminders No Open Scheduling, Background documented as of this encounter Procedures Procedure Name Priority Date/Time Associated Diagnosis Comments US OB BPP W NON-STRESS 04/15/2025 4:16 PM EDT documented in this encounter Results * US OB BPP W NON-STRESS (04/15/2025 4:16 PM EDT) Anatomical Region Laterality Modality Other 04/15/2025 4:16 PM EDT Narrative 04/15/2025 4:19 PM EDT The [address] [address] Ultrasound Report Signed Patient: TRUDI ZAMARRIPA MR#: [id number] : 1990 Acct:[id number] Age/Sex: 34 / F ADM Date: 04/15/25 Loc: US Attending Dr: Rosy Quiroz Ordering Physician: Rosy Quiroz Date of Service: 04/15/25 Procedure(s): US OB BPP w non-stress Accession Number(s): [id number] cc: Rosy Quiroz; Physician,Non-Staff M.D. The [address] [address] Patient Name: TRUDI ZAMARRIPA MRN: [id number] date: 1990 Sex: F Assigned Patient Location: US Current Patient Location: Accession/Order Number: [id number] Exam Date: 04/15/2025 15:09 Report Date: 04/15/2025 16:16 At the request of: ROSY QUIROZ Procedure: US OB BPP w non-stress Biophysical profile. Reason for exam: History of gastric sleeve surgery COMPARISON: 04/08/2025 TECHNIQUE: Transabdominal imaging of the gravid uterus was obtained. FINDINGS: The television writer reports a BPP of 8 out of 8. HELLEN is normal at 17 cm. heart rate 136 bpm. US/US OB BPP w non-stress IMPRESSION: BPP 8 out of 8. Impression dictated by: Cy Jensen Jr., D.O. 04/15/2025 4:16 PM Dictation Location: [place] [address] Electronically authenticated by: [id number] Y Date: 04/15/2025 16:16 Dictated By: Cy Jensen M.D. Signed By: 04/15/259 DD/ 15 TD/TT: Head Banquet Waiter/Waitress: Procedure Note Radiology, Radiologist, MD - 04/15/2025 [place] [address] Ultrasound Report Signed Patient: TRUDI ZAMARRIPA JMR#: [id number] : 1990Acct:[id number] Age/Sex: 34 / FADM Date: 04/15/25 Loc: US Attending Dr: Rosy Quiroz Ordering Physician: Rosy Quiroz Date of Service: 04/15/25 Procedure(s): US OB BPP w non-stress Accession Number(s): [id number] cc: Rosy Quiroz; Physician,Non-Staff Shimon The [place] [address] Patient Name: TRUDI ZAMARRIPA [facility]N: [facility]:[id number] date: 1990 Sex: F Assigned Patient Location: US Current Patient Location: Accession/Order Number: [id number] Exam Date: 04/15/2025 15:09 Report Date: 04/15/2025 16:16 At the request of: ROSY QUIROZ Procedure: US OB BPP w non-stress Biophysical profile. Reason for exam: History of gastric sleeve surgery COMPARISON: 04/08/2025 TECHNIQUE: Transabdominal imaging of the gravid uterus was obtained. FINDINGS: The television writer reports a BPP of 8 out of 8. HELLEN is normal at17 cm. heart rate 136 bpm. US/US OB BPP w non-stress IMPRESSION: BPP 8 out of 8. Impression dictated by: Cy Jensen Jr., D.O. 04/15/2025 4:16 PM Dictation Location: [place] [address] Electronically authenticated by: [id number] Y Date: 6:16 Dictated By: Cy Jensen M.D. Signed By:04/15/25 1619 DD/ 1616 TD/TT: Head Banquet Waiter/Waitress: Rosy [facility] Final Result documented in this encounter Visit Diagnoses Not on filedocumented in this encounter Additional Health Concerns Active Problems Noted Date Diagnosed Date OB Reminders 10/19/2024 documented as of this encounter Care Teams Electric Power Line Repairer Relationship Specialty Start Date End Date Unallocated, Noms Provider, [facility] [place] [address] PCP - General Family Medicine 10/17/23 Amalia Bruce, TONIA [address] [place] [address] PCP - Capo Commercial 09/22/24 documented as of this encounter
--- OUTSIDE RECORDS SUMMARY | 2025-04-18 15:29 | XMS_ITS | Encounter Summary ---
Author Organization [facility] tem Address [id number] [address] [place] [address] Care Team Providers Care Radiology Scheduler Name Role Phone Unavailable Primary Care Provider Unavailabl e Encounter Details Date Type Department Care Team (Late Contact Info) Description 04/15/2025 Telephone Maternal- Medicine at [facility] [address] [facility] [place] [phone] Beulah Miller, RN Social History Tobacco Use Types Packs/Day Years [...] encounter Miscellaneous Notes * Telephone Encounter - Beulah Miller RN - 04/15/2025 3:08 PM EDT Received BG results and all are in target range. Called and left message of praise for all efforts and to call if questions. To send next week again. No changes. documented in this encounter Plan of Treatment Upcoming Encounters Date Type Department Care Team (Late Contact Info) Description 05/01/2025 9:30 AM EDT Telemedicine Maternal- Medicine at [facility] [address] [place] [address] Marilia Dillon, NAPK[place] BAND WRAPPER-SEAT JOINER CHAINSTITCH [address] [place] [address] documented as of this encounter Visit Diagnoses Not on filedocumented in this encounter
--- OUTSIDE RECORDS SUMMARY | 2025-04-18 15:29 | XMS_ITS | Encounter Summary ---
Author Organization [facility] Address [address] [place] [address] Care Team Providers Care Charge Master Analyst Name Role Phone Unallocated, Noms Provider Primary Care Provi chrissy Amalia Bruce AUTOMATIC BUFFER Unavailable [phone] Reason for Visit * Reason Onset Date Comments Med Refill 10/23/2024 Encounter Details Date Type Department Care Team (Late Contact Info) Description 10/23/2024 Refill [facility] [address] [facility] [address] [place] [address] Unallocated, Noms Provider, [address] [place] [address] Social History Tobacco Use Types Packs/Day Years [...] [facility] [phone] Roscoe Diaz DO [address] [facility] [place] [address] documented as of this encounter Goals Goal Patient Goal Type Associated Problems Recent Progress Patient-Stated? Author Reminders Care Plan OB Reminders No Open Scheduling, Background documented as of this encounter Visit Diagnoses Not on filedocumented in this encounter Additional Health Concerns Active Problems Noted Date Diagnosed Date OB Reminders 10/19/2024 documented as of this encounter Care Teams Charge Master Analyst Relationship Specialty Start Date End Date Unallocated, Noms Provider, [address] [place] [address] PCP - General Family Medicine 10/17/23 Amalia Bruce, TONIA [address] [place] [address] PCP - Capo Commercial 09/22/24 documented as of this encounter
--- OUTSIDE RECORDS SUMMARY | 2025-04-18 15:29 | XMS_ITS | Encounter Summary ---
Author Organization [facility] Address [address] [place] [address] Care Team Providers Care Dehydrator Name Role Phone Unallocated, Noms Provider Primary Care Provi chrissy Amalia Bruce ADMINISTRATION ASSISTANT Unavailable [phone] Encounter Details Date Type Department Care Team (Late Contact Info) Description 02/06/2025 Abstract [facility] [address] [place] [address] Roscoe Diaz DO [address] [facility] [place] [address] Social History Tobacco Use Types Packs/Day Years [...] 11:30 AM EDT Routine [facility]ARA CAAL [address] [facility] [place] [phone] Roscoe Diaz DO [address] [facility] [place] [address] documented as of this encounter Goals Goal Patient Goal Type Associated Problems Recent Progress Patient-Stated? Author Reminders Care Plan OB Reminders No Open Scheduling, Background documented as of this encounter Visit Diagnoses Not on filedocumented in this encounter Additional Health Concerns Active Problems Noted Date Diagnosed Date OB Reminders 10/19/2024 documented as of this encounter Care Teams Dehydrator Relationship Specialty Start Date End Date Unallocated, Nomgilmar Provider, [address] [place], [place] [address] PCP - General Family Medicine 10/17/23 Amalia Bruce, TONIA [address] [place] [address] PCP - Capo Commercial 09/22/24 documented as of this encounter
--- OUTSIDE RECORDS SUMMARY | 2025-04-18 15:29 | XMS_ITS | Encounter Summary ---
Author Organization [facility] Address [address] [place] [address] Care Team Providers Care Marketing Sales Consultant Name Role Phone Unallocated, Noms Provider Primary Care Provi chrissy Amalia Bruce COLLECTION SYSTEMS TECHNICIAN Unavailable [phone] Encounter Details Date Type Department Care Team (Late st Contact Info) Description 04/05/2025 Telephone [facility] [address] [place] [phone] Monika Mesa LPN [address] [place] [address] Social History Tobacco Use Types [...] AM EDT Routine [facility] [address] [facility] [address] Roscoe Diaz, [address] [facility] [place] [address] documented as of this encounter Goals Goal [...] II, MD, PHD at 09-Apr-2025 07:59:18 AM [facility] Procedure Note Brittany Ferreira MD - [...] signed by BRITTANY FERREIRA II, MD, PHD [id number] 07:59:18 AM [facility] us Roscoe Joeiván WINKLER IM OB US PROCEDURES Final Resul t documented in this encounter Visit Diagnoses Diagnosis H/O gastric sleeve H/O gastric sleeve documented in this encounter Additional Health Concerns Active Problems Noted Date Diagnosed Date OB Reminders 10/19/2024 documented as of this encounter Care Teams Marketing Sales Consultant Relationship Specialty Start Date End Date Unallocated, Noms Provider[place] [address] PCP - General Family Medicine 10/17/23 Amalia Bruce NP [address] [place] [address] PCP - [place] Commercial 09/22/24 documented as of this encounter
--- OUTSIDE RECORDS SUMMARY | 2025-04-18 15:29 | XMS_ITS | Clinical Summary ---
Author Organization [facility] tem Address [facility]701[facility] [address] [place] [address] Care Team Providers Care Railroad Car Truck Builder Name Role Phone Unavailable Primary Care Provider Unavailabl e Allergies No known active allergies Medications 25-IRON [id number] ORAL Take 1 tablet by mouth in [...] Encounters Date Type Department Care Team Description 04/15/2025 Telephone Maternal- Medicine at [facility] [address] [place] [address] Beulah Miller, KARISSA 04/09/2025 Telephone Maternal- Medicine at [facility] [address] [facility] [place] [address] Devika Pope, JOEL 04/01/2025 10:00 AM EDT Telemedicine Maternal- Medicine at [facility] [address] [place] [address] Daisha Morel PA-C Gestational diabetes requiring insulin (Primary Dx) 04/01/2025 Telephone Maternal- Medicine at [place] [address] [facility] [place] [address] Blanquita Toney, KARISSA 04/01/2025 Travel 04/01/2025 Telephone Maternal- Medicine at [place] [address] [facility] [place] [address] Blanquita Toney, KARISSA 03/26/2025 Telephone Maternal- Medicine at [place] [address] [facility] [place] [address] Devika Pope, JOEL 03/19/2025 Telephone Maternal- Medicine at [place] [address] [facility] [place] [address] Fatimah Ball LD 03/12/2025 1:30 PM EDT Office Visit Maternal- Medicine at [place] [address] [place] [address] Daisha Morel, PA-C Gestational diabetes mellitus (GDM) in second trimester, gestational diabetes method of control unspecified (Primary Dx); Gestational diabetes requiring insulin 03/12/2025 Travel 03/05/2025 Telephone Maternal- Medicine at [place] [address] [facility] [place] [address] Devika Pope, JOEL 02/26/2025 Telephone Maternal- Medicine at [place] [address] [place] [address] Devika Pope LD 02/14/2025 1:30 PM EDT Support Visit Maternal- Medicine at [address] [phone] Hien Giles, RN Devika Pope, JOEL Gestational diabetes mellitus (GDM) in second trimester, gestational diabetes method of control unspecified (Primary Dx) 02/13/2025 Travel 02/07/2025 Orders Only Maternal- Medicine at [address] [phone] Ref Prov, Not In System 02/07/2025 Abstract Maternal- Medicine at [address] [phone] External, Scanning Provider from Last 3 Months [...] 03/12/2025 1:35 PM EDT Plan of Treatment Upcoming Encounters Date Type Department Care Team (Late st Contact Info) Description 05/01/2025 9:30 AM EDT Telemedicine Maternal- Medicine at [facility] [address] [place] [address] Marilia Dillon, ARTIST MANNEQUIN COLORING-BED SETTER [address] [place] [address] Health Maintenance Due Date Last Done Comments [...] ORDERABLES Final Re sult Performing Organization Address [facility] de Phone Number MANUALLY TRANSCRIBED RESULTS * [...] ORDERABLES Madelaine l Result Performing Organization Address [facility] de Phone Number MANUALLY TRANSCRIBED RESULTS * Glucose 1h post 50g load (02/01/2025) Glucose, 1 hr PP 50GM dose 198 MANUALLY TRANSCRIBED RESULTS Blood Venous blood / Unknown us Not In System Ref Prov LAB BLOOD ORDERABLES Madelaine l Result Performing Organization Address [facility] de Phone Number MANUALLY TRANSCRIBED RESULTS * Hemoglobin and hematocrit, blood (02/01/2025) Hemoglobin 11.5 MANUALLY TRANSCRIBED RESULTS Hematocrit 33.9 MANUALLY TRANSCRIBED RESULTS Blood Venous blood / Unknown us Not In System Ref Prov LAB BLOOD ORDERABLES Madelaine l Result Performing Organization Address [facility] de Phone Number MANUALLY TRANSCRIBED RESULTS from Last 3 Months Insurance
--- OUTSIDE RECORDS SUMMARY | 2025-04-18 15:29 | XMS_ITS | Encounter Summary ---
Author Organization [facility] Address [address] [place] [address] Care Team Providers Care Paper Sheeter Name Role Phone Unallocated, Noms Provider Primary Care Provi chrissy Amalia Bruce TIE MAN Unavailable Encounter Details Date Type Department Care Team (Late st Contact Info) Description 04/10/2025 Bamboo flowsheet [facility]ARA CAAL [address] [facility] [place] [address] Roscoe Diaz DO [address] [facility] [address] [place], [facility] Social History Tobacco Use Types Packs/Day [...] 11:30 AM EDT Routine [facility]IARA SILV[facility] [address] [place] [phone] Roscoe Diaz DO [address] [place] [address] documented as of this encounter Goals Goal Patient Goal Type Associated Problems Recent Progress Patient-Stated? Author Reminders Care Plan OB Reminders No Open Scheduling, Background documented as of this encounter Visit Diagnoses Not on filedocumented in this encounter Additional Health Concerns Active Problems Noted Date Diagnosed Date OB Reminders 10/19/2024 documented as of this encounter Care Teams Paper Sheeter Relationship Specialty Start Date End Date Unallocated, Noms Provider, MD [address] [place], [place] [phone] PCP - General Family Medicine 10/17/23 Amalia Bruce, TONIA [address] [place] [address] PCP - Capo Wild 09/22/24 documented as of this encounter
--- OUTSIDE RECORDS SUMMARY | 2025-04-18 15:29 | XMS_ITS | Encounter Summary ---
Author Organization [facility] Address [address] [place] [address] Care Team Providers Care Whizzer Name Role Phone Unallocated, Noms Provider Primary Care Provi chrissy Amalia Bruce MANAGER ACCESS Unavailable [phone] Encounter Details Date Type Department Care Team (Late st Contact Info) Description 02/04/2025 Results Follow-Up [facility] [place] [facility] [address] [facility] [place] [address] Monika Mesa LPN [address] [place] [phone] ALL CBC WITH AUTO DIFF, GLUCOSE 1 [...] AM EDT Routine [facility] [place] [facility] [address] [facility] [place] [address] Roscoe Diaz DO [address] [facility] [place] [address] documented as of this encounter Goals Goal Patient Goal Type Associated Problems Recent Progress Patient-Stated? Author Reminders Care Plan OB Reminders No Open Scheduling, Background documented as of this encounter Visit Diagnoses Not on filedocumented in this encounter Additional Health Concerns Active Problems Noted Date Diagnosed Date OB Reminders 10/19/2024 documented as of this encounter Care Teams Whizzer Relationship Specialty Start Date End Date Unallocated, Noms Herlinda, [address] [place] [address] PCP - General Family Medicine 10/17/23 Amalia Bruce, TONIA [address] [place] [address] PCP - Capo Wild 09/22/24 documented as of this encounter
--- OUTSIDE RECORDS SUMMARY | 2025-04-18 15:29 | XMS_ITS | Encounter Summary ---
Author Organization [facility] tem Address [id number] [address] [place] [address] Care Team Providers Care Wellness Program Administrator Name Role Phone Unavailable Primary Care Provider Unavailabl e Encounter Details Date Type Department Care Team (Late st Contact Info) Description 04/09/2025 Telephone Maternal- Medicine at [facility] [address] [place] [address] Devika Pope, JOEL [address] [place] [address] Social History Tobacco Use Types Packs/Day Years [...] to schedule a follow-up visit with a [facility] provider for the second week in April. documented in this encounter Plan of Treatment Upcoming Encounters Date Type Department Care Team (Late st Contact Info) Description 05/01/2025 9:30 AM EDT Telemedicine Maternal- Medicine at [facility] [address] [place] [address] Marilia Dillon, HARNESS MAKER-BACKHOE OPERATOR [address] [place] [address] documented as of this encounter Visit Diagnoses Not on filedocumented in this encounter
--- OUTSIDE RECORDS SUMMARY | 2025-04-18 15:29 | XMS_ITS | Encounter Summary ---
Author Organization [facility] Address [address] [place] [address] Care Team Providers Care Quality Assurance Monitor Chassis Name Role Phone Unallocated, Noms Provider Primary Care Provi chrissy Amalia Bruce MANAGER SQL Unavailable [phone] Encounter Details Date Type Department Care Team [...] Routine [facility] [address] [place] [address] Roscoe Diaz DO [address] [place], [place] [phone] documented as of this encounter Goals Goal Patient Goal Type Associated Problems Recent Progress Patient-Stated? Author Reminders Care Plan OB Reminders No Open Scheduling, Background documented as of this encounter Visit Diagnoses Not on filedocumented in this encounter Additional Health Concerns Active Problems Noted Date Diagnosed Date OB Reminders 10/19/2024 documented as of this encounter Care Teams Quality Assurance Monitor Chassis Relationship Specialty Start Date End Date Unallocated, Noms Provider, [address] [place] [address] PCP - General Family Medicine 10/17/23 Amalia Bruce, TONIA [address] [place] [address] PCP - Capo Wild 09/22/24 documented as of this encounter
--- OUTSIDE RECORDS SUMMARY | 2025-04-18 15:29 | XMS_ITS | Encounter Summary ---
Author Organization [facility] Address [address] [place] [address] Care Team Providers Care Rn Bariatric Name Role Phone Unallocated, Noms Provider Primary Care Provi chrissy Amalia Bruce CHEMICAL RADIATION TECHNICIAN Unavailable [phone] Encounter Details Date Type Department Care Team (Late st Contact Info) Description 04/08/2025 Clinisync Result Encounter NOMS External Department Unsolicited Rosy Quiroz PA [address] [place] [address] Social History Tobacco Use Types Packs/Day Years [...] AM EDT Routine [facility] [address] [place] [phone] Roscoe Diaz, DO [address] [facility] [address] [place] [id number] documented as of this encounter Goals Goal [...] EDT Narrative 04/08/2025 8:39 PM EDT The [address] [address] Ultrasound Report Signed Patient: TRUDI ZAMARRIPA MR#: [id number] : 1990 Acct:[id number] Age/Sex: 34 / F ADM Date: 04/08/25 Loc: US Attending Dr: Rosy Quiroz Ordering Physician: Rosy Quiroz Date of Service: 04/08/25 Procedure(s): US OB BPP w non-stress Accession Number(s): [id number] cc: Rosy Quiroz; Physician,Non-Staff M.D. The [address] [address] Patient Name: TRUDI ZAMARRIPA MRN: [id number] date: 1990 Sex: F Assigned Patient Location: [facility] Current Patient Location: Accession/Order Number: [id number] Exam Date: 04/08/2025 20:36 Report Date: 04/08/2025 [...] Briscoe M.D. 04/08/2025 8:37 PM [facility]ictation [facility] Electron[facility] authenticated by: [id number] Y Date: 04/08/2025 20:37 Dictated By: Suraj Briscoe D.O. Signed By: 04/08/252038 DD/ 36 TD/TT: Stemhole Borer And Topper: Procedure Note Radiology, Radiologist, MD - 04/08/2025 [place] [address] Ultrasound Report Signed Patient: TRUDI ZAMARRIPA JMR#: [id number] : 1990Acct:[id number] Age/Sex: 34 / FADM Date: 04/08/25 Loc: US Attending Dr: Rosy Quiroz Ordering Physician: Rosy Quiroz Date of Service: 04/08/25 Procedure(s): US OB BPP w non-stress Accession Number(s): [id number] cc: Rosy Quiroz; Physician,Non-Staff Shimon The [place] [id number] Patient Name: TRUDI ZAMARRIPA MRN: [id number] date: 1990 Sex: F Assigned Patient Location: [facility] Current Patient Location: Accession/Order Number: [id number] Exam Date: 04/08/2025 20:36 Report Date: 04/08/2025 [...] Briscoe M.D. 04/08/2025 8:37 PM Dictation Location[facility] Electron[facility] authenticated by: [id number] Y Date: 0:37 Dictated By: Suraj Briscoe D.O. Signed By:04/08/252038 DD/ 36 TD/TT: Stemhole Borer And Topper: Rosy KRUGER [facility] Final Result documented in this encounter Visit Diagnoses Not on filedocumented in this encounter Additional Health Concerns Active Problems Noted Date Diagnosed Date OB Reminders 10/19/2024 documented as of this encounter Care Teams Rn Bariatric Relationship Specialty Start Date End Date Unallocated, Noms Provider, [address] [place], [place] [phone] PCP - General Family Medicine 10/17/23 Amalia Bruce NP [address] [place] [address] PCP - Capo Wild 09/22/24 documented as of this encounter
--- OUTSIDE RECORDS SUMMARY | 2025-04-18 15:29 | XMS_ITS | Encounter Summary ---
Author Organization [facility] Address [address] [place] [address] Care Team Providers Care Accounting Intern Name Role Phone Unallocated, Noms Provider Primary Care Provi chrissy Amalia Bruce SMART GRID ENGINEER Unavailable [phone] Encounter Details Date Type Department Care Team (Late st Contact Info) Description 12/26/2024 Orders Only [facility] [address] [place] [address] Iman Saldana LPN [address] [place] [phone] Social History Tobacco Use Types Packs/Day Years [...] EDT Routine [facility] [address] [facility] [place] [phone] Roscoe Diaz DO [address] [facility] [place] [address] documented as of this encounter Goals Goal [...] documented as of this encounter Care Teams Accounting Intern Relationship Specialty Start Date End Date Unallocated, Noms Provider, [address] [place] [address] PCP - General Family Medicine 10/17/23 Amalia Bruce, TONIA [address] [place] [address] PCP - [place] Wild 09/22/24 documented as of this encounter
--- OUTSIDE RECORDS SUMMARY | 2025-04-18 15:29 | XMS_ITS | Encounter Summary ---
Author Organization [facility] Address [address] [place] [address] Care Team Providers Care Ramp Attendant Name Role Phone Unallocated, Noms Provider Primary Care Provi chrissy Amalia Bruce SNELLER HAND Unavailable [phone] Encounter Details Date Type Department Care Team (Late Contact Info) Description 10/29/2024 Abstract [facility] [address] [facility] [place] [address] Roscoe Diaz DO [address] [facility] [place] [address] Social History Tobacco Use Types Packs/Day Years [...] 11:30 AM EDT Routine [facility] [address] [facility] [place] [phone] Roscoe Diaz DO [address] [facility] [place] [address] documented as of this encounter Goals Goal Patient Goal Type Associated Problems Recent Progress Patient-Stated? Author Reminders Care Plan OB Reminders No Open Scheduling, Background documented as of this encounter Visit Diagnoses Not on filedocumented in this encounter Additional Health Concerns Active Problems Noted Date Diagnosed Date OB Reminders 10/19/2024 documented as of this encounter Care Teams Ramp Attendant Relationship Specialty Start Date End Date Unallocated, Nomgilmar Provider, [address] [place], [place] [address] PCP - General Family Medicine 10/17/23 Amalia Bruce, TONIA [address] [place] [address] PCP - Capo Commercial 09/22/24 documented as of this encounter
--- OUTSIDE RECORDS SUMMARY | 2025-04-18 15:30 | XMS_ITS | Clinical Summary ---
Author Organization [facility] Address [address] [place] [address] Care Team Providers Care Room Attendants Name Role Phone Unallocated, Noms Provider Primary Care Provi chrissy Amalia Bruce CANAL TENDER Unavailable [phone] Allergies No known active allergies Medications omeprazole OTC (PriLOSEC OTC) 20 MG EC tablet Take 20 mg by mouth in the morning. Take before meals. Do not crush, chew, or split.. Active Vit-Fe Fumarate-FA ( 19) 29-1 MG chewable tabletIndication s:, unspecified gestational age ([facility]) Chew 1 each Daily 30 tablet 11 5 Active Alcohol Swabs (Alcohol Prep Pad) 70 % padsIndications: Gestational diabetes mellitus (GDM), antepartum, gestational diabetes method of control unspecified ([facility]),Elevat ed glucose tolerance test Apply 1 Pad topically Daily Use four times daily to check FSBS. 150 each 3 5 Active Blood Glucose Monitoring Suppl (D-Care Glucometer) w/Device kitIndications:G estational diabetes mellitus (GDM), antepartum, gestational diabetes method of control unspecified ([facility]),Elevat ed glucose tolerance test 1 kit Daily [...] Encounters Date Type Department Care Team Description 04/17/2025 Travel 04/15/2025 Clinisync Result Encounter NOMS External Department Unsolicited Rosy Quiroz PA 04/10/2025 3:00 [place] [address] Roscoe Diaz, 34 weeks gestation of ([facility]); Third trimester ([facility]); H/O gastric sleeve; Insulin controlled gestational diabetes mellitus (GDM) during , antepartum ([facility]) 04/10/2025 [place] [address] Roscoe Diaz DO 04/08/2025 10:00 AM EDT [place]illary [place] [address] H/O gastric sleeve 04/08/2025 Clinisync Result Encounter NOMS External Department Unsolicited Rosy Quiroz PA 04/06/2025 Travel 04/05/2025 Telephone [facility] CA[facility] [address] [place] [address] oMnika Mesa LPN 04/01/2025 Clinisync Result Encounter NOMS External Department Unsolicited Rosy Quiroz PA 03/28/2025 Telephone [facility] [address] [place] [address] Jes Garza MA 03/27/2025 2:00 PM [place] [address] Roscoe Diaz, Third trimester ([facility]); H/O gastric sleeve; Gestational diabetes mellitus (GDM), antepartum, gestational diabetes method of control unspecified ([facility]); 32 weeks gestation of ([facility]) 03/27/2025 Bamboo flowsheet [place] [address] Roscoe Diaz DO 03/27/2025 Travel 03/13/2025 3:50 PM EDT Routine [facility] [address] [facility] [place] [address] Rosy Quiroz PA 30 weeks gestation of ([facility]); Third trimester ([facility]); H/O gastric sleeve; Gestational diabetes mellitus (GDM), antepartum, gestational diabetes method of control unspecified ([facility]) 03/13/2025 Bamboo flowsheet [place] [address] Rosy Quiroz PA 03/10/2025 Travel 02/27/2025 1:40 PM EDT Routine [facility] Antonio [facility] [place] [place] [address] Roscoe Diaz DO 28 weeks gestation of ([facility]); Third trimester ([facility]); H/O gastric sleeve; Gestational diabetes mellitus (GDM), antepartum, gestational diabetes method of control unspecified ([facility]) 02/27/2025 1:00 PM EDT Ancillary Procedure [facility] [address] H/O gastric sleeve 02/26/2025 Travel 02/11/2025 11:30 [place] [address] Rosy Quiroz PA Second trimester ([facility]); 26 weeks gestation of ([facility]); H/O gastric sleeve 02/11/2025 Travel 02/06/2025 Abstract [facility] [place] [address] Roscoe Diaz, DO 02/04/2025 Telephone [facility] OBARACELISN [address] [facility] [place] [address] Monika Mesa LPN 02/04/2025 Results Follow-Up [facility] AVILEZN [address] [facility] [place] [address] Monika Mesa, INVESTOR ALL CBC WITH AUTO DIFF, GLUCOSE 1 HOUR 02/01/2025 Telephone [facility] [address] [facility] [place] [address] Ana Costello MA 02/01/2025 Clinisync Result Encounter NOMS External Department Unsolicited Roscoe Diaz, DO 01/30/2025 1:00 PM EDT Ancillary Procedure [facility] [address] [facility] [place] [address] Encounter for follow-up ultrasound of anatomy ([facility]) 01/27/2025 Travel from Last 3 Months Family History [...] AM EDT Routine [facility] [address] [facility] [place] [place] [phone] Roscoe Diaz DO [address] [facility] [place] [address] Health Maintenance Due Date Last Done Comments HPV/Cotest 2022 Influenza Vaccine (#1) 2025 Cervical Cancer Screening 12/11/2027 Pap Smear 12/11/2027 12/10/2024 Goals Goal Patient Goal Type Associated Problems Recent Progress Patient-Stated? Author Reminders Care Plan OB Reminders No Open Scheduling, Background Procedures Procedure Name Priority Date/Time Associated Diagnosis Comments US OB BPP W NON-STRESS 04/15/2025 4:16 PM EDT POCT URINALYSIS DIPSTICK Routine 04/10/2025 3:21 PM EDT 34 weeks gestation of ([facility]) Third trimester ([facility]) US OB BPP W NON-STRESS 04/08/2025 8:37 PM EDT US OB FOLLOW UP TRANSABDOMINAL APPROACH Routine 04/08/2025 10:27 AM EDT H/O gastric sleeve US OB BPP W NON-STRESS 04/01/2025 3:29 PM EDT POCT URINALYSIS DIPSTICK Routine 03/27/2025 2:49 PM EDT Third trimester ([facility]) H/O gastric sleeve Gestational diabetes mellitus (GDM), antepartum, gestational diabetes method of control unspecified ([facility]) 32 weeks gestation of ([facility]) POCT URINALYSIS DIPSTICK Routine 03/13/2025 3:46 PM EDT 30 weeks gestation of ([facility]) Third trimester ([facility]) POCT URINALYSIS DIPSTICK Routine 02/27/2025 2:04 PM EDT 28 weeks gestation of ([facility]) Third trimester ([facility]) US OB FOLLOW UP TRANSABDOMINAL APPROACH Routine 02/27/2025 1:40 PM EDT H/O gastric sleeve POCT URINALYSIS DIPSTICK Routine 02/11/2025 11:50 AM EDT Second trimester ([facility]) GLUCOSE 1 HOUR Routine 02/01/2025 9:28 AM EDT ALL CBC WITH AUTO DIFF Routine 9:28 AM EDT US OB LIMITED 1+ FETUSES Routine 01/30/2025 1:20 PM EDT Encounter for follow-up ultrasound of anatomy ([facility]) PAP SMEAR Routine 12/10/2024 12:00 AM EDT from Last 3 Months or Most Recently Relevant to Health Maintenance Results * US OB BPP W NON-STRESS (04/15/2025 4:16 PM EDT) Only the most recent of3 resultswithin the time period is included. Anatomical Region Laterality Modality Other 04/15/2025 4:16 PM EDT Narrative 04/15/2025 4:19 PM EDT The [address] [address] Ultrasound Report Signed Patient: TRUDI ZAMARRIPA MR#: [id number] : 1990 Acct:[id number] Age/Sex: 34 / F ADM Date: 04/15/25 Loc: US Attending Dr: Rosy Quiroz Ordering Physician: Rosy Quiroz Date of Service: 04/15/25 Procedure(s): US OB BPP w non-stress Accession Number(s): [id number] cc: Rosy Quiroz; Physician,Non-Staff M.D. The [place] [id number] Patient Name: TRUDI ZAMARRIPA MRN: [id number] date: 1990 Sex: F Assigned Patient Location: US Current Patient Location: Accession/Order Number: [id number] Exam Date: 04/15/2025 15:09 Report Date: 04/15/2025 16:16 At the request of: ROSY QUIROZ Procedure: US OB BPP w non-stress Biophysical profile. Reason for exam: History of gastric sleeve surgery COMPARISON: 04/08/2025 TECHNIQUE: Transabdominal imaging of the gravid uterus was obtained. FINDINGS: The front office medical assistant reports a BPP of 8 out of 8. HELLEN is normal at 17 cm. heart rate 136 bpm. US/US OB BPP w non-stress IMPRESSION: BPP 8 out of 8. Impression dictated by: Cy Jensen Jr., D.O. 04/15/2025 4:16 PM Dictation Location: [place] [address] Electronically authenticated by: [id number] Y Date: 04/15/2025 16:16 Dictated By: Cy Jensen M.D. Signed By: 04/15/25 1619 DD/ 15 TD/TT: Scroll Saw Operator: Procedure Note Radiology, Radiologist, MD - 04/15/2025 [place] [address] Ultrasound Report Signed Patient: TRUDI ZAMARRIPA JMR#: [id number] : 1990Acct:[id number] Age/Sex: 34 / FADM Date: 04/15/25 Loc: US Attending Dr: Rosy Quiroz Ordering Physician: Rosy Quiroz Date of Service: 04/15/25 Procedure(s): US OB BPP w non-stress Accession Number(s): [id number] cc: Rosy Quiroz; Physician,Non-Staff Shimon The [place] [address] Patient Name: TRUDI ZAMARRIPA MRN: [facility]:[id number] date: 1990 Sex: F Assigned Patient Location: US Current Patient Location: Accession/Order Number: [id number] Exam Date: 04/15/2025 15:09 Report Date: 04/15/2025 16:16 At the request of: ROSY QUIROZ Procedure: US OB BPP w non-stress Biophysical profile. Reason for exam: History of gastric sleeve surgery COMPARISON: 04/08/2025 TECHNIQUE: Transabdominal imaging of the gravid uterus was obtained. FINDINGS: The front office medical assistant reports a BPP of 8 out of 8. HELLEN is normal at17 cm. heart rate 136 bpm. US/US OB BPP w non-stress IMPRESSION: BPP 8 out of 8. Impression dictated by: Cy Jensen Jr., D.O. 04/15/2025 4:16 PM Dictation Location: [place] [address] Electronically authenticated by: [id number] Y Date: 6:16 Dictated By: Cy Jensen M.D. Signed By:04/15/25 1619 DD/ TD/TT: Scroll Saw Operator: us Rosy Quiroz PA [facility] Final Result * (ABNORMAL) POCT urinalysis dipstick manually resulted (04/10/2025 3:21 PM EDT) Only the most recent of5 [...] - Positive Urine 04/10/2025 3:21 PM EDT us Roscoe Joe DO POINT OF CARE TEST [...] 05/13/2025. Interpreted by: Electronically signed by BRITTANY SEBASTIAN II, MD, PHD at 09-Apr-2025 07:59:18 AM [facility] Procedure Note Brittany Sebastian MD - 04/09/2025 EXAM: US OB FOLLOW [...] 05/13/2025. Interpreted by: Electronically signed by BRITTANY SEBASTIAN II, MD, PHD [id number] 07:59:18 AM [facility] us Roscoe Joe DO IMG OB US PROCEDURES Final Resul t * (ABNORMAL) GLUCOSE 1 HOUR (02/01/2025 9:28 AM EDT) GLUCOSE 1 HOUR 198(H) <130 mg/dL [facility] 02/01/2025 9:28 AM EDT 02/01/2025 9:30 AM EDT Narrative [facility] - 02/01/2025 11:36 AM EDT us Roscoe Joe DO LAB BLOOD ORDERABLES Final Resul t [facility] TB * (ABNORMAL) ALL CBC WITH AUTO [...] CECILIA - 02/01/2025 9:37 AM EDT us Roscoe Diaz DO CALITONI Final Result CECILIA [facility] * US OB [...] II, MD, PHD at 01-Feb-2025 10:22:21 AM [facility] Procedure Note Brittany Sebastian MD - [...] signed by BRITTANY SEBASTIAN II, MD, PHD [id number] 10:22:21 AM [facility] us Roscoe Joe DO IMG OB US PROCEDURES Final Resul t * Pap Smear (12/10/2024 12:00 AM EDT) Swab Cervical swab / Unknown Joe Nurse Noms Bcp Ob LAB CYTOLOGY ORDERABLES Final Result EXTERNAL LAB from Last 3 Months or Most Recently Relevant to Health Maintenance Additional Health Concerns Active Problems Noted Date Diagnosed Date OB Reminders 10/19/[address] [facility] Care Teams Room Attendants Relationship Specialty Start Date End Date Unallocated, Noms Herlinda, [address] [place] [address] PCP - General Family Medicine 10/17/23 Amalia Bruce NP [address] [place] [address] PCP - [place] Commercial 09/22/24
--- OUTSIDE RECORDS SUMMARY | 2025-04-18 15:30 | XMS_ITS | Encounter Summary ---
Author Organization [facility] Address [address] [place] [address] Care Team Providers Care Harvest Contractor Name Role Phone Unallocated, Noms Provider Primary Care Provi chrissy Amalia Bruce SALES EFFECTIVENESS MANAGER Unavailable [phone] Encounter Details Date Type Department Care Team (Late Contact Info) Description 01/09/2025 Abstract [facility] [address] [facility] [place] [address] Roscoe Diaz DO [address] [facility] [place] [address] Social History Tobacco Use Types Packs/Day Years [...] 11:30 AM EDT Routine [facility] [address] [facility] [place] [address] Roscoe Diaz DO [address] [facility] [place] [address] documented as of this encounter Goals Goal Patient Goal Type Associated Problems Recent Progress Patient-Stated? Author Reminders Care Plan OB Reminders No Open Scheduling, Background documented as of this encounter Visit Diagnoses Not on filedocumented in this encounter Additional Health Concerns Active Problems Noted Date Diagnosed Date OB Reminders 10/19/2024 documented as of this encounter Care Teams Harvest Contractor Relationship Specialty Start Date End Date Unallocated, Nomgilmar Provider, [address] [place], [place] [phone] PCP - General Family Medicine 10/17/23 Amalia Bruce, TONIA [address] [place] [address] PCP - Capo Commercial 09/22/24 documented as of this encounter
--- OUTSIDE RECORDS SUMMARY | 2025-04-18 15:30 | XMS_ITS | Encounter Summary ---
Author Organization [facility] Address [address] [place] [address] Care Team Providers Care Manager Change Name Role Phone Unallocated, Noms Provider Primary Care Provi chrissy Amalia Bruce TECHNICAL SUPPORT REPRESENTATIVE Unavailable [phone] Encounter Details Date Type Department Care Team (Latest Contact Info) Description 04/17/2025 Travel Social History Tobacco Use Types Packs/Day [...] Routine [facility] [address] [place] [address] Roscoe Diaz DO [address] [place], [place] [address] documented as of this encounter Goals Goal Patient Goal Type Associated Problems Recent Progress Patient-Stated? Author Reminders Care Plan OB Reminders No Open Scheduling, Background documented as of this encounter Visit Diagnoses Not on filedocumented in this encounter Additional Health Concerns Active Problems Noted Date Diagnosed Date OB Reminders 10/19/2024 documented as of this encounter Care Teams Manager Change Relationship Specialty Start Date End Date Unallocated, Noms Provider, [address] [place] [address] PCP - General Family Medicine 10/17/23 Amalia Bruce, TONIA [address] [place] [address] PCP - Capo Wild 09/22/24 documented as of this encounter
[2025-04-18 15:33] VITALS: BP 123/64; PULSE 80
--- OUTSIDE RECORDS SUMMARY | 2025-04-18 15:49 | XMS_ITS | CCD ---
Author Organization [facility] CliniSymt Care Team Providers Care Apprentice Embalmer Name Role Phone Unavailable Primary Care Provider UnavailDasha Kern MD Primary Care Provider [phone] MD Dasha Lujan Primary Care Provider BRETT Breaux Attending Provider [phone] Reena Breaux Admitting Unavailable Reena Breaux Attending [...] Unavailable Unallocated , Noms Provider Primary Care [facility] Teo TELEMETRY REGISTERED NURSE, Edu N Unavailable Teo TELEMETRY REGISTERED NURSE, Edu N Unavailable Unavailable Primary Care Provider UnavailDEVIKA Lima Attending Unavailable JOE, ROSCOE R Referring Unavailable PETR BRISENOEN Emelia Attending Unavailable JOE, ROSCOE R Referring Unavailable PETR BRISENOEN Emelia Attending Unavailable JOE, ROSCOE R Referring Unavailable JOE, ROSCOE Attending Unavailable ORALIA, ROSY Attending Unavailable JOE, ROSCOE Attending Unavailable ORALIA, ROSY Attending Unavailable ORALIA, ROSY Referring Unavailable JOE, ROSCOE Attending Unavailable ORALIA, ROSY Attending Unavailable JOE, ROSCOE Attending Unavailable ROSCOE DIAZ Referring Unavailable ROSCOE DIAZ Attending Unavailable SINA JAIN Attending Unavailable SINA JAIN Referring Unavailable EDU ALVAREZ Attending Unavailable Medications Current Medications Medication Drug Class(es) Dates Sig (Normalized) Sig (Original) aspirin 81 mg delayed release oral tablet (11 sources) Platelet Aggregation Inhibitor, Nonsteroidal Anti-inflammatory Drug [...] Glucose Monitoring Suppl (D-Care Glucometer) w/Device kit (16 sources) Start: 02-04-2025 End: 02-04-2026 Blood Glucose Monitoring Suppl (D-Care Glucometer) w/Device kit Indications: Gestational diabetes mellitus (GDM), antepartum, gestational diabetes method of control unspecified ([facility]) , Elevated glucose tolerance test 1 kit Daily Use four times daily to check FSBS. In the morning prior to breakfast & 1 hour after each meal for a total of 4times daily. 1 kit 02/04/2025 02/04/2026 Active 3 ml insulin glargine 100 unt/ml pen injector (19 sources) Insulin Analog Start: 03-12-2025 inject 10 [...] Active isopropyl alcohol 0.7 ml/ml medicated pad (16 sources) Start: 02-04-2025 Alcohol Swabs (Alcohol Prep Pad) 70 % pads Indications: Gestational diabetes mellitus (GDM), antepartum, gestational diabetes method of control unspecified ([facility]) , Elevated glucose tolerance test Apply 1 Pad topically Daily Use four times daily to check FSBS. 150 each 3 02/04/2025 Active omeprazole 20 mg delayed release oral capsule (20 sources) Proton Pump Inhibitor Start: 04-16-2022 Omeprazole Magnesium (ACID AIRLINE MANAGER, OMEPRAZOLE,) 20 mg cpDR 04/16/2022 Active [...] Active ondansetron 4 mg disintegrating oral tablet (17 sources) Serotonin-3 Receptor Antagonist Start: 10-18-2024 End: [...] 30 days. BMI 29.76 polyethylene glycol 3350 02200 mg powder for oral solution (2 sources) Osmotic Laxative Start: End: take 17 g by mouth once polyethylene glycol, PEG, 3350 (Glycolax) 17 GM/SCOOP powder Indications: Colonoscopy Take 238 g by mouth 1 (one) time for 1 dose Take as detailed from clinic hand out for colonoscopy prep 238 g 07/25/2024 07/25/2024 Active 25-IRON ZRA-[id number] ORAL (12 sources) take 1 tablet by mouth in the morning 25-IRON WMB-ZTSES-IDG ORAL Take 1 tablet by mouth in the morning. Active Vit-Fe Fumarate-FA ( 19) 29-1 MG chewable tablet (20 sources) Start: Vit-Fe Fumarate-FA ( 19) 29-1 MG chewable tablet Indications: , unspecified gestational age ([facility]) Chew 1 each Daily 30 tablet [...] tolerance complicating ; childbirth; or the puerperium (20 sources) Gestational diabetes mellitus; Translations: [Gestational diabetes [...] 06-29-2024 Episodic Other and delivery including normal (16 sources) ; Translations: [Encounter for supervision of [...] of ] 02-11-2025 Episodic Residual codes; unclassified (10 sources) History of sleeve gastrectomy; Translations: [Acquired [...] [32 weeks gestation of ] 03-27-2025 Episodic Residual codes; unclassified (2 sources) Gestation period, 34 weeks; Translations: [34 weeks gestation of ] 04-10-2025 Episodic Unclassified (20 sources) OB Reminders Onset: [...] Test Name Value Interpretation Reference Range Facility OB BPP W NON-STRESS on 04-15-2025 [place] [address] Ultrasound Report Signed Patient: CARYL ZAMARRIPA MR#: [id number] : 1990 Acct:[id number] Age/Sex: 34 / F ADM Date: 04/15/25 Loc: US Attending Dr: Rosy Barton Ordering Physician: Rosy Barton Date of Service: 04/15/25 Procedure(s): US OB BPP w non-stress Accession Number(s): [id number] cc: Rosy Barton; Physician,Non-Staff M.Bruce The [place] [id number] Patient Name: CARYL ZAMARRIPA MRN: [facility]:[id number] date: 1990 Sex: F Assigned Patient Location: US Current Patient Location: Accession/Order Number: [id number] Exam Date: 04/15/2025 15:09 Report Date: 04/15/2025 16:16 At the request of: ROSY BARTON Procedure: US OB BPP w non-stress Biophysical profile. Reason for exam: History of gastric sleeve surgery COMPARISON: 04/08/2025 TECHNIQUE: Transabdominal imaging of the gravid uterus was obtained. FINDINGS: The grading machine operator reports a BPP of 8 out of 8. HELLEN is normal at 17 cm. heart rate 136 bpm. US/US OB BPP w non-stress IMPRESSION: BPP 8 out of 8. Impression dictated by: Cy Jensen Jr., D.O. 04/15/2025 4:16 PM Dictation Location: [place] [address] Electronically authenticated by: [id number] Y Date: 04/15/2025 16:16 Dictated By: Cy Jensen M.D. Signed By: 04/15/25 1619 DD/ TD/TT: Biological Photographer: [facility] Radiology, Radiologist, MD - 04/15/2025 [place] [address] Ultrasound Report Signed Patient: CARYL ZAMARRIPA MR#: [id number] : 1990 Acct:[id number] Age/Sex: 34 / F ADM Date: 04/15/25 Loc: US Attending Dr: Rosy Barton Ordering Physician: Rosy Barton Date of Service: 04/15/25 Procedure(s): US OB BPP w non-stress Accession Number(s): [id number] cc: Rosy Barton; Physician,Non-Staff Shimon The [address] [address] Patient Name: ACRYL ZAMARRIPA MRN: [id number] date: 1990 Sex: F Assigned Patient Location: US Current Patient Location: Accession/Order Number: [id number] Exam Date: 04/15/2025 15:09 Report Date: 04/15/2025 16:16 At the request of: ROSY BARTON Procedure: US OB BPP w non-stress Biophysical profile. Reason for exam: History of gastric sleeve surgery COMPARISON: 04/08/2025 TECHNIQUE: Transabdominal imaging of the gravid uterus was obtained. FINDINGS: The grading machine operator reports a BPP of 8 out of 8. HELLEN is normal at 17 cm. heart rate 136 bpm. US/US OB BPP w non-stress IMPRESSION: BPP 8 out of 8. Impression dictated by: Cy Jensen Jr., D.O. 04/15/2025 4:16 PM Dictation Location: [place] [address] Electronically authenticated by: [id number] Y Date: 04/15/2025 16:16 Dictated By: Cy Jensen M.D. Signed By: 04/15/259 DD/ 15 TD/TT: Biological Photographer: [facility] Radiology Study observation (narrative) [facility] US OB BPP W NON-STRESS Ordered By: Radiologist Radiology on 04-15-2025 [facility] Work Phone: Urinalysis macro (dipstick) panel (U)on 04-10-2025 Bilirubin, UA Negative Negative - 4(70) +++ mg/dL [facility] Blood, UA Negative Negative - 50 Iraj/mcL [facility] Clarity, UA Clear [facility] Color, UA Yellow [facility] Glucose, UA Negative Negative - 2000(110) ++++ mg/dL [facility] Interpretation and review of laboratory results Abnormal [facility] Ketones, UA Negative Negative - 160(16) ++++ mg/dL [facility] Leukocytes, UA Positive Negative - 500+++ Mari/mcL [facility] Nitrite, UA Negative Negative - Positive [facility] pH, UA 6 5 - 9 [facility] Protein, UA Positive Negative - 2000(20) ++++ mg/dL [facility] Spec Grav, UA 1.015 1 - 1.03 [facility] Urobilinogen, UA 1.0 0.2 - 12 mg/dL Critical access hospital US OB BPP W NON-STRESS on 04-08-2025 [place] [address] Ultrasound Report Signed Patient: CARYL ZAMARRIPA MR#: [id number] : 1990 Acct:[id number] Age/Sex: 34 / F ADM Date: 04/08/25 Loc: US Attending Dr: Rosy Barton Ordering Physician: Rosy Barton Date of Service: 04/08/25 Procedure(s): US OB BPP w non-stress Accession Number(s): [id number] cc: Rosy Barton; Physician,Non-Staff M.Bruce [place] [id number] Patient Name: CARYL ZAMARRIPA MRN: [id number] date: 1990 Sex: F Assigned Patient Location: [facility] Current Patient Location: Accession/Order Number: [id number] Exam Date: 04/08/2025 20:36 Report Date: 04/08/2025 20:37 At the request of: ROSY BARTON Procedure: US OB BPP w non-stress Ultrasound [...] Briscoe M.D. 04/08/2025 8:37 PM Dictation Location: [facility] Electronically authenticated by: [id number] Y Date: 04/08/2025 20:37 Dictated By: Suraj Briscoe D.O. Signed By: 04/08/252038 DD/ 36 TD/TT: Biological Photographer: [facility] Radiology, Radiologist, - 04/08/2025 [place] [address] Ultrasound Report Signed Patient: CARYL ZAMARRIPA MR#: [id number] : 1990 Acct:[id number] Age/Sex: 34 / F ADM Date: 04/08/25 Loc: US Attending Dr: Rosy Barton Ordering Physician: Rosy Barton Date of Service: 04/08/25 Procedure(s): US OB BPP w non-stress Accession Number(s): [id number] cc: Rosy Barton; Physician,Non-Staff M.Bruce The [place] [id number] Patient Name: CARYL ZAMARRIPA MRN: [facility]:[id number] date: 1990 Sex: F Assigned Patient Location: [facility] Current Patient Location: Accession/Order Number: [id number] Exam Date: 04/08/2025 20:36 Report Date: 04/08/2025 20:37 At the request of: ROSY BARTON Procedure: US OB BPP w non-stress Ultrasound [...] Briscoe M.D. 04/08/2025 8:37 PM Dictation Location: [place] [address] Electronically authenticated by: [id number] Y Date: 04/08/2025 20:37 Dictated By: Suraj Briscoe D.O. Signed By: 04/08/252038 DD/ 36 TD/TT: Biological Photographer: [facility] Radiology Study observation (narrative) [facility] US OB BPP W NON-STRESS Ordered By: Radiologist Radiology on 04-08-2025 [facility] Work Phone: US OB FOLLOW UP TRANSABDOMIN [...] II, MD, PHD at 09-Apr-2025 07:59:18 AM [facility] [place] [facility] Normal Not Available Comment on above: Order Comment: US OB SCAN FOR GROWTH Estimated Date of Delivery: 05/19/25 Gestational Age as of 04/05/2025: 33w5d US OB BPP W NON-STRESS on 04-01-[address] [address] Ultrasound Report Signed Patient: CARYL ZAMARRIPA MR#: [id number] : 1990 Acct:[id number] Age/Sex: 34 / F ADM Date: 04/01/25 Loc: [facility] 250-[address]: Rosy Barton Ordering Physician: Rosy Barton Date of Service: 04/01/25 Procedure(s): US OB BPP w non-stress Accession Number(s): [id number] cc: Rosy Barton; Physician,Non-Staff Shimon The [address] [address] Patient Name: CARYL ZAMARRIPA MRN: [facility]:[id number] date: 1990 Sex: F Assigned Patient Location: US Current Patient Location: US Accession/Order Number: [id number] Exam Date: 04/01/2025 15:28 Report Date: 04/01/2025 15:29 At the request of: ROSY BARTON Procedure: US OB BPP w non-stress Biophysical profile. Reason for exam: History of gastric sleeve surgery COMPARISON: None TECHNIQUE: Transabdominal imaging of the gravid uterus was obtained. FINDINGS: The grading machine operator reports a BPP of 8 out of 8. HELLEN is normal at 10.8 cm. heart rate 125 bpm. US/US OB BPP w non-stress IMPRESSION: BPP 8 out of 8. Impression dictated by: Cy Jensen Jr., D.O. 04/01/2025 3:29 PM Dictation Location: [place] [address] Electronically authenticated by: [id number] Y Date: 04/01/2025 15:29 Dictated By: Cy Jensen M.D. Signed By: 04/01/25 1531 DD/ 1529 TD/TT: Biological Photographer: [facility] Radiology, Radiologist, MD - 04/01/2025 The [place] [id number] Ultrasound Report Signed Patient: CARYL ZAMARRIPA MR#: [id number] : 1990 Acct:[id number] Age/Sex: 34 / F ADM Date: 04/01/25 Loc: [facility] 250-[address]: Rosy Barton Ordering Physician: Rosy Barton Date of Service: 04/01/25 Procedure(s): US OB BPP w non-stress Accession Number(s): [id number] cc: Rosy Barton; Physician,Non-Staff MMickey The [place] [address] Patient Name: CARYL ZAMARRIPA MRN: [facility]:[id number] date: 1990 Sex: F Assigned Patient Location: US Current Patient Location: US Accession/Order Number: [id number] Exam Date: 04/01/2025 15:28 Report Date: 04/01/2025 15:29 At the request of: ROSY BARTON Procedure: US OB BPP w non-stress Biophysical profile. Reason for exam: History of gastric sleeve surgery COMPARISON: None TECHNIQUE: Transabdominal imaging of the gravid uterus was obtained. FINDINGS: The grading machine operator reports a BPP of 8 out of 8. HELLEN is normal at 10.8 cm. heart rate 125 bpm. US/US OB BPP w non-stress IMPRESSION: BPP 8 out of 8. Impression dictated by: Cy Jensen Jr., D.O. 04/01/2025 3:29 PM Dictation Location: [place] [address] Electronically authenticated by: [id number] Y Date: 04/01/2025 15:29 Dictated By: Cy Jensen M.D. Signed By: 04/01/25 1531 DD/ 1529 TD/TT: Biological Photographer: [facility] Radiology Study observation (narrative) [facility] US OB BPP W NON-STRESS Ordered By: Radiologist Radiology on 04-01-2025 [facility] Work Phone: Urinalysis macro (dipstick) panel (U)on 03-27-2025 Bilirubin, UA Negative Negative - 4(70) +++ mg/dL [facility] Blood, UA Negative Negative - 50 Iraj/mcL [facility] Clarity, UA Clear [facility] Color, UA Yellow [facility] Glucose, UA Negative Negative - 2000(110) ++++ mg/dL [facility] Interpretation and review of laboratory results Abnormal [facility] Ketones, UA Positive Negative - 160(16) ++++ mg/dL [facility] Leukocytes, UA Few Negative - 500+++ Mari/mcL [facility] Nitrite, UA Negative Negative - Positive [facility] pH, UA 6 5 - 9 [facility] Protein, UA Few Negative - 2000(20) ++++ mg/dL [facility] Spec Grav, UA 1.03 1 - 1.03 [facility] Urobilinogen, UA 0.2 0.2 - 12 mg/dL Critical [facility] hospital Urinalysis macro (dipstick) panel (U)on 03-13-2025 Bilirubin, UA Negative Negative - 4(70) +++ mg/dL [facility] Blood, UA Negative Negative - 50 Iraj/mcL [facility] Clarity, UA Clear [facility] Color, UA Yellow [facility] Glucose, UA Negative Negative - 1999(110) ++++ mg/dL [facility] Interpretation and review of laboratory results Normal [facility] Ketones, UA Negative Negative - 160(16) ++++ mg/dL [facility] Leukocytes, UA Negative Negative - 500+++ Mari/mcL [facility] Nitrite, UA Negative Negative - Positive [facility] pH, UA 6 5 - 9 [facility] Protein, UA Negative Negative - 2000(20) ++++ mg/dL [facility] Spec Grav, UA 1.01 1 - 1.03 [facility] Urobilinogen, UA 1.0 0.2 - 12 mg/dL Critical [facility] hospital US OB FOLLOW UP TRANSABDOMIN AL APPROACHon [...] UA Negative Negative - 4(70) +++ mg/dL [facility] Blood, UA Negative Negative - 50 Iraj/mcL [facility] Clarity, UA Clear [facility] Color, UA Colorless [facility] Glucose, UA Negative Negative - 1999(110) ++++ mg/dL [facility] Interpretation and review of laboratory results Normal [facility] Ketones, UA Negative Negative - 160(16) ++++ mg/dL [facility] Leukocytes, UA Negative Negative - 500+++ Mari/mcL [facility] Nitrite, UA Negative Negative - Positive [facility] pH, UA 6 5 - 9 [facility] Protein, UA Negative Negative - 2000(20) ++++ mg/dL [facility] Spec Grav, UA 1.01 1 - 1.03 [facility] Urobilinogen, UA 1.0 0.2 - 12 mg/dL Critical [facility] hospital Glucose random or fasting- P OCTon 02-14-2025 External Glucose Fasting Or Random (Fbs) 88 [facility] Urinalysis macro (dipstick) panel (U)on 02-11-2025 Bilirubin, UA Negative Negative - 4(70) +++ mg/dL [facility] Blood, UA Negative Negative - 50 Iraj/mcL [facility] Clarity, UA Clear [facility] Color, UA Yellow [facility] Glucose, UA Positive Negative - 2000(110) ++++ mg/dL [facility] Comment on above: 500mg/dL Interpretation and review of laboratory results Abnormal [facility] Ketones, UA Negative Negative - 160(16) ++++ mg/dL [facility] Leukocytes, UA Negative Negative - 500+++ Mari/mcL [facility] Nitrite, UA Negative Negative - Positive [facility] pH, UA 6 5 - 9 [facility] Protein, UA Negative Negative - 2000(20) ++++ mg/dL [facility] Spec Grav, UA 1.005 1 - 1.03 [facility] Urobilinogen, UA 0.2 0.2 - 12 mg/dL Critical access hospital ALL CBC WITH AUTO DIFFon BASOPHILS ABSOLUTE AUTO 0 N [facility] Basophils/100 WBC (Bld) 0.2 % 0.2 - 2.0 % [facility] Eosinophils/100 WBC (Bld) 1.1 % 0.9 - 7.0 % [facility] Erythrocyte distribution width (RBC) [Ratio] 13.6 % 11.0 - 15.0 % [facility] IMMATURE GRANULOCYTES ABS AUTO 0.04 High [facility] Immature granulocytes/100 WBC (Bld) 0.4 % 0.0 - 0.5 % [facility] Interpretation and review of laboratory results Abnormal [facility] LYMPHOCYTES ABSOLUTE AUTO 1.2 [facility] Lymphocytes/100 WBC (Bld) 12.5 % Low 20.5 - 60.0 % [facility] MCH (RBC) [Entitic mass] 33.9 pg 26. 7 - 34.0 pg [facility] MCHC (RBC) [Mass/Vol] 33.9 g/dL 29.9 - 35.2 g/dL [facility] MCV (RBC) [Entitic vol] 100 fL High 81.0 - 99.0 fL [facility] MONOCYTES ABSOLUTE AUTO 0.4 N [facility] Monocytes/100 WBC (Bld) 3.9 % 1.7 - 12.0 % [facility] NEUTROPHILS ABSOLUTE AUTO 7.7 High [facility] Neutrophils/100 WBC (Bld) 81.9 % High 43.0 - 75.0 % [facility] Platelet mean volume (Bld) [Entitic vol] 11 fL 9.5 - 13.5 fL [facility] TBH EO # 0.1 [facility] TB PLT 172 [facility] TB RBC 3.39 Low [facility] TBH WBC 9.4 [facility] Glucose 1h post 50g loadon 0 02-01-2025 Glucose, 1 hr PP 50GM dose 198 [facility] Laboratory - Hematology and Cell countson 02-01-2025 Hematocrit (Bld) [Volume fraction] 33.9 % [facility] Hemoglobin (Bld) [Mass/Vol] 11.5 g/dL [facility] No Panel Informationon 02-01 [facility] US OB LIMITED 1+ FETUSESon 0 [...] II, MD, PHD at 01-Feb-2025 10:22:21 AM [facility] Normal Not Available Comment on above: Order Comment: US OB INCOMPLETE ANATOMY Estimated Date of Delivery: 05/19/25 Gestational Age as of 01/07/2025: 21w1d Urinalysis macro (dipstick) panel (U)on 01-10-2025 Bilirubin, UA Negative Negative - 4(70) +++ mg/dL [facility] Blood, UA Negative Negative - 50 Iraj/mcL [facility] Clarity, UA Clear [facility] Color, UA Yellow [facility] Glucose, UA Negative Negative - 1999(110) ++++ mg/dL [facility] Interpretation and review of laboratory results Abnormal [facility] Ketones, UA Positive Negative - 160(16) ++++ mg/dL [facility] Leukocytes, UA Negative Negative - 500+++ Mari/mcL [facility] Nitrite, UA Negative Negative - Positive [facility] pH, UA 6 5 - 9 [facility] Protein, UA Negative Negative - 2000(20) ++++ mg/dL [facility] Spec Grav, UA 1.01 1 - 1.03 [facility] Urobilinogen, UA 0.2 0.2 - 12 mg/dL Critical access hospital No Panel InformationOrdered By: Radiologist Radiology on 01-02-2025 [facility] Work Phone: No Panel Informationon 01-02 Radiology Study observation (narrative) [facility] US OB ANATOMYon 01-02-[address] [address] Ultrasound Report Signed Patient: CARYL ZAMARRIPA MR#: [id number] : 1990 Acct:[id number] Age/Sex: 34 / F ADM Date: 01/02/25 Loc: US Attending Dr: Roscoe Diaz D.O. Ordering Physician: Roscoe Diaz D.O. Date of Service: 01/02/25 Procedure(s): US OB anatomy Accession Number(s): [id number] cc: Roscoe Diaz D.O.; Physician,Non-Staff Shimon [address] [address] Patient Name: CARYL ZAMARRIPA MRN: [id number] date: 1990 Sex: F Assigned Patient Location: Current Patient Location: US Accession/Order Number: [id number] Exam Date: 01/02/2025 22:40 Report Date: 01/02/2025 [...] Briscoe M.D. 01/02/2025 10:47 PM Dictation Location: [employer] Electronically authenticated by: [id number] Y Date: 01/02/2025 22:47 Dictated By: Suraj Briscoe D.O. Signed By: 01/02/252249 DD/ 46 TD/TT: Biological Photographer: [facility] Radiology, Radiologist, MD - 01/02/2025 [place] [address] Ultrasound Report Signed Patient: CARYL ZAMARRIPA MR#: [id number] : 1990 Acct:[id number] Age/Sex: 34 / F ADM Date: 01/02/25 Loc: US Attending Dr: Roscoe Diaz D.O. Ordering Physician: Roscoe Diaz D.O. Date of Service: 01/02/25 Procedure(s): US OB anatomy Accession Number(s): [id number] cc: Roscoe Diaz D.O.; Physician,Non-Staff Shimon [facility] [place] [id number] Patient Name: CARYL ZAMARRIPA MRN: [facility]:[id number] date: 1990 Sex: F Assigned Patient Location: US Current Patient Location: US Accession/Order Number: [id number] Exam Date: 01/02/2025 22:40 Report Date: 01/02/2025 22:47 At the request of: ROSCOE JOE DO Procedure: US OB cervical length Obstetrical [...] Briscoe M.D. 01/02/2025 10:47 PM Dictation Location: [place] [address] Electronically authenticated by: [id number] Y Date: 01/02/2025 22:47 Dictated By: Suraj Briscoe D.O. Signed By: 01/02/25 2250 DD/ 46 TD/TT: Biological Photographer: [facility] OB CERVICAL LENGTHon 12-[address] [address] Ultrasound Report Signed Patient: CARYL ZAMARRIPA MR#: [id number] : 1990 Acct:[id number] Age/Sex: 34 / F ADM Date: 01/02/25 Loc: US Attending Dr: Roscoe Diaz D.O. Ordering Physician: Roscoe Diaz D.O. Date of Service: 01/02/25 Procedure(s): US OB cervical length Accession Number(s): [id number] cc: Roscoe Diaz D.O.; Physician,Non-Staff [place] [id number] Patient Name: CARYL ZAMARRIPA MRN: [facility]:[id number] date: 1990 Sex: F Assigned Patient Location: Current Patient Location: US Accession/Order Number: [id number] Exam Date: 01/02/2025 22:40 Report Date: 01/02/2025 [...] Briscoe M.D. 01/02/2025 10:47 PM Dictation Location: [place] [address] Electronically authenticated by: [id number] Y Date: 01/02/2025 22:47 Dictated By: Suraj Briscoe D.O. Signed By: 01/02/252249 DD/ 46 TD/TT: Biological Photographer: [facility] Radiology, Radiologist, MD - 01/02/2025 [place] [address] Ultrasound Report Signed Patient: CARYL ZAMARRIPA MR#: [id number] : 1990 Acct:[id number] Age/Sex: 34 / F ADM Date: 01/02/25 Loc: US Attending Dr: Roscoe Diaz D.O. Ordering Physician: Roscoe Diaz D.O. Date of Service: 01/02/25 Procedure(s): US OB cervical length Accession Number(s): [id number] cc: Roscoe Diaz D.O.; Physician,Non-Staff [place] [address] Patient Name: CARYL ZAMARRIPA MRN: [facility]:[id number] date: 1990 Sex: F Assigned Patient Location: Current Patient Location: Accession/Order Number: [id number] Exam Date: 01/02/2025 22:40 Report Date: 01/02/2025 [...] Briscoe M.D. 01/02/2025 10:47 PM Dictation Location: [place] [facility] Electronically authenticated by: [id number] Y Date: 01/02/2025 22:47 Dictated By: Suraj Briscoe D.O. Signed By: 01/02/252249 DD/ 46 TD/TT: Biological Photographer: CHIARA Vicente AFP Single Marker Casey Bangura, Serumon 12-31-2024 Ms Alpha-Fetoprotein Negative [facility] IGP,APTIMA HPV,AGE GDLNon AGE GDLN ACOG TESTING Note . SHERRIE Vu [facility] Comment on above: TESTS RESULT FLAG UN ITS REF RANGE LAB Clinician Provided Cytology Information Source.............Endocervix Other.............. No. of containers..01 ThinPrep Vial Age Algo ACOG Enedina... 30-65 01 FLAG LEGEND: L-Low Normal,H-High Normal,LL-Alert Low,HH-Alert High <-Panic Low,>-Panic High,A-Abnormal,AA-Critical Abnormal Performed at: 01 =[address] [address] Rossy Odonnell MD, HPV APTIMA Negative Negative [facility] Comment on above: This nucleic acid am plification test detects fourteen high- risk HPV types (16,18,31,33,35,39,45,51,52,56,58,59,66,68) without differentiation. Performed at: =[address] [id number] Tanning Consultant: Rossy Odonnell MD, Phone: [phone] Performed at: [address] [id number] Tanning Consultant: Rossy Odonnell MD, Phone: [phone] IGP, APTIMA HPV, RFX 16/18,45 Note . [facility] Comment on above: TESTS RESULT FLAG UN ITS REF RANGE LAB DIAGNOSIS: 02 NEGATIVE FOR INTRAEPITHELIAL LESION OR MALIGNANCY. Specimen adequacy: 02 Satisfactory for evaluation. No endocervical component is identified. An endocervical component is not commonly seen in the patient. Performed by: Ronan Lucero, Melting Operator ([facility]) . 02 Note: Note 02 The [...] <-Panic Low,>-Panic High,A-Abnormal,AA-Critical Abnormal Performed at: [address] [address] Rossy Odonnell MD, SPATULA-ALONE END[facility]ERVIX [facility] RECURRENT VAGINITIS (HTRX)on 12-11-2024 ATOPOBIUM VAGINAE 0 [facility] ATOPOBIUM VAGINAE Not detected [facility] BVAB 2,3 (BACTERIAL VAGINOSIS ASSOCIATED BACTERIA 2, 3); MOBILUNCUS SPP 0 [facility] BVAB 2,3 (BACTERIAL VAGINOSIS ASSOCIATED BACTERIA 2, 3); MOBILUNCUS SPP Not detected [facility] [place] ALBICANS, PARAPSILOSIS, TROPICALIS 0 [facility] [place] ALBICANS, PARAPSILOSIS, TROPICALIS Not detected [facility] [place] GLABRATA 0 [facility] [place] GLABRATA Not detected [facility] [...] detected N [facility] NEISSERIA GONORRHOEAE 0 [facility] NEISSERIA GONORRHOEAE Not detected N [facility] TRICHOMONAS VAGINALIS 0 [facility] TRICHOMONAS VAGINALIS Not detected N [facility] Urinalysis macro (dipstick) panel (U)on 12-10-2024 Bilirubin, UA Negative Negative - 4(70) +++ mg/dL [facility] Blood, UA Negative Negative - 50 Iraj/mcL [facility] Clarity, UA Clear [facility] Color, UA Yellow [facility] Glucose, UA Negative Negative - 1999(110) ++++ mg/dL [facility] Interpretation and review of laboratory results Normal [facility] Ketones, UA Negative Negative - 160(16) ++++ mg/dL [facility] Leukocytes, UA Trace Negative - 500+++ Mari/mcL [facility] Nitrite, UA Negative Negative - Positive [facility] pH, UA 6 5 - 9 [facility] Protein, UA Negative Negative - 1999(20) ++++ mg/dL [facility] Spec Grav, UA 1.01 1 - 1.03 [facility] Urobilinogen, UA 0.2 0.2 - 12 mg/dL [facility] Urinalysis macro (dipstick) panel (U)on 11-08-2024 Bilirubin, UA Negative Negative - 4(70) +++ mg/dL [facility] Blood, UA Negative Negative - 50 Iraj/mcL [facility] Clarity, UA Clear [facility] Color, UA Yellow [facility] Glucose, UA Negative Negative - 1999(110) ++++ mg/dL [facility] Interpretation and review of laboratory results Normal [facility] Ketones, UA Negative Negative - 160(16) ++++ mg/dL [facility] Leukocytes, UA Negative Negative - 500+++ Mari/mcL [facility] Nitrite, UA Negative Negative - Positive [facility] pH, UA 6 5 - 9 [facility] Protein, UA Negative Negative - 1999(20) ++++ mg/dL [facility] Spec Grav, UA 1.015 1 - 1.03 [facility] Urobilinogen, UA 0.2 0.2 - 12 mg/dL Critical [facility] hospital ALL CBC WITH AUTO DIFFon BASOPHILS ABSOLUTE AUTO 0 N [facility] Basophils/100 WBC (Bld) 0.4 % 0.2 - 2.0 % [facility] Eosinophils/100 WBC (Bld) 1.2 % 0.9 - 7.0 % [facility] Erythrocyte distribution width (RBC) [Ratio] 12.4 % 11.0 - 15.0 % [facility] IMMATURE GRANULOCYTES ABS AUTO 0.02 [facility] Immature granulocytes/100 WBC (Bld) 0.2 % 0.0 - 0.5 % [facility] Interpretation and review of laboratory results Abnormal [facility] LYMPHOCYTES ABSOLUTE AUTO 2.2 [facility] Lymphocytes/100 WBC (Bld) 27.2 % 20.5 - 60.0 % [facility] MCH (RBC) [Entitic mass] 33.5 pg 26. 7 - 34.0 pg [facility] MCHC (RBC) [Mass/Vol] 35.3 g/dL High 29.9 - 35.2 g/dL [facility] MCV (RBC) [Entitic vol] 94.9 fL 81.0 - 99.0 fL [facility] MONOCYTES ABSOLUTE AUTO 0.4 N [facility] Monocytes/100 WBC (Bld) 4.9 % 1.7 - 12.0 % [facility] NEUTROPHILS ABSOLUTE AUTO 5.4 [facility] Neutrophils/100 WBC (Bld) 66.1 % 43.0 - 75.0 % [facility] Platelet mean volume (Bld) [Entitic vol] 11.2 fL 9.5 - 13.5 fL [facility] TBH EO # 0.1 [facility] PLT 169 [facility] TB RBC 3.55 Low [facility] TB WBC 8.2 [facility] CBC without diffon 5 Platelets (Bld) [#/Vol] 169 10*3/uL [facility] Rbc Mcv (Fl) By Automated Count 94.9 [facility] Drug Screen, Urineon 025 Amphetamine/Methamphetam ine Negative [facility] Barbiturates Negative [facility] Benzodiazepines Negative [facility] Cocaine Metabolite Negative [facility] Methadone Negative [facility] Opiates Negative [facility] Oxycodone Negative [facility] Phencyclidine Negative [facility] Thc Marijuana, Urine Negative [facility] Free Cell DNAon 2024 Free Cell Dna LOW RISK [facility] HBV surface Ag IA Qlon 10-19 Hepatitis B Surface Antigen Negative [facility] HCV Ab IA Qlon 10-19-2024 HCV Ab Ql (S) Non-Reactive [facility] HIV 1+2 Ab+HIV1 p24 Ag IA Ql on 10-19-2024 HIV 1&2 AB/AG Non-Reactive [facility] Hemoglobin A1con 10-19-2024 HbA1c (Bld) [Mass fraction] 5.1 % 4.0 - 6.0 % [facility] Laboratory - Hematology and Cell countson 10-19-2024 Hematocrit (Bld) [Volume fraction] 33.7 % [facility] Hemoglobin (Bld) [Mass/Vol] 11.9 g/dL [facility] No Panel Informationon 10-19 [facility] Rubella IGG immune statuson 10-19-2024 Rubella immune IgG IMMUNE [facility] T. pallidum IgG+IgM IA Ql (S )on 10-19-2024 Syphilis Non-Reactive [facility] Type and screenon 10-19-2024 Abo/Rh(D) Positive [facility] HCG ( test) Ql (U)o n 10-18-2024 Interpretation and review of laboratory results Abnormal [facility] Preg Test, Ur Positive Negative Critical access hospital US OB TRANSVAGINALon 025 US OB TRANSVAGINAL [...] II, MD, PHD at 20-Oct-2024 07:21:51 AM [facility]ad[facility] Normal Not Available Comment on above: Order Comment: US OB TRANSVAGINAL No LMP recorded. Urinalysis macro (dipstick) panel (U)on 10-18-2024 Bilirubin, UA Negative Negative - 4(70) +++ mg/dL [facility] Blood, UA Negative Negative - 50 Iraj/mcL [facility] Clarity, UA Clear [facility] Color, UA Yellow [facility] Glucose, UA Negative Negative - 2000(110) ++++ mg/dL [facility] Interpretation and review of laboratory results Normal [facility] Ketones, UA Negative Negative - 160(16) ++++ mg/dL [facility] Leukocytes, UA Negative Negative - 500+++ Mari/mcL [facility] Nitrite, UA Negative Negative - Positive [facility] pH, UA 6 5 - 9 [facility] Protein, UA Negative Negative - 2000(20) ++++ mg/dL [facility] Spec Grav, UA 1.01 1 - 1.03 [facility] Urobilinogen, UA 1.0 0.2 - 12 mg/dL [facility] CNOVon 06-29-2024 CNOV Office Visit (INMAVN) CARYL ZAMARRIPA ([id number]) 1990 F Date Time Provider Department 06/29/24 12:40 PM BERENICE ZEPEDA INMAVLee During your visit today, we recorded the following information about you: Pulse Blood pressure Weight 65/minute 101/68 75.8 kg Berenice Zepeda APRN.ASSISTANT TRACK COACH 06/29/2024 1:25 PM Signed Caryl Zamarripa is [...] - PHENTERMINE 37.5 MG TABLET Berenice Zepeda APRN.ASSISTANT TRACK COACH Allergies As of Date: 06/29/2024 (No Known [...] days. BMI 29.58kg/m2 - Omeprazole Magnesium (ACID AIRLINE MANAGER, OMEPRAZOLE,) 20 mg cpDR Problem List As Of Date: 06/29/2024 (None) Prescriptions ordered this encounter Disp Refills Start End PHENTERMINE 37.5 MG TABLET 30 t* 0 06/29/2024 07/29/2024 Route: ORAL Sig: Take 1 tablet by mouth once daily for 30 days. BMI 29.58kg/m2 Encounter Status:Closed by BERENICE ZEPEDA on 06/29/24 [facility] CNAlfonso 08-23-2023 CNOV Office Visit (INMAVN) CARYL ZAMARRIPA ([id number]) 1990 F Date Time Provider Department 08/23/23 4:00 PM BERENICE ZEPEDA INHALEYVLee During your visit today, we recorded the following information about you: Pulse Blood pressure Weight Last Period 54/minute 121/77 77.6 kg 08/08/23 Berenice Zepeda APRN.ASSISTANT TRACK COACH 08/25/2023 12:23 PM Signed Caryl Zamarripa is [...] - PHENTERMINE 37.5 MG TABLET Berenice Zepeda APRN.ASSISTANT TRACK COACH Allergies As of Date: 08/23/2023 (No Known [...] for 2 days. - Omeprazole Magnesium (ACID AIRLINE MANAGER, OMEPRAZOLE,) 20 mg cpDR Problem List [...] Status:Closed by BERENICE ZEPEDA on 08/25/23 Normal [facility] CBC W Auto Differential pane l (Bld)on 07-26-2023 Basophils (Bld) [#/Vol] 0.03 10*3/uL Normal <0.11 [facility] Comment on above: Order Comment: Speci men Type: BLOOD SPECIMEN Ordering Facility: [facility] Address: [address] [place] [address] Performed By: #### 5 7021-8 #### [facility] CLIA [id number] [address] [place] [address] Basophils/100 WBC (Bld) 0.6 % Normal [facility] Comment on above: Order Comment: Speci men Type: BLOOD SPECIMEN Ordering Facility: [facility] Address: [address] [place] [address] Performed By: #### 5 7021-8 #### [facility] CLIA [id number] [address] [place] [address] Differential cell count method Nom (Bld) Auto Normal [facility] Comment on above: Order Comment: Speci men Type: BLOOD SPECIMEN Ordering Facility: [facility] Address: [address] [place] [address] Performed By: #### 5 7021-8 #### [facility] CLIA [id number] [address] [place] [address] Eosinophils (Bld) [#/Vol] 0.13 10*3/uL Normal <0.46 [facility] Comment on above: Order Comment: Speci men Type: BLOOD SPECIMEN Ordering Facility: [facility] Address: [address] [place] [address] Performed By: #### 5 7021-8 #### [facility] CLIA [id number] [address] [place] [address] Eosinophils/100 WBC (Bld) 2.6 % Normal [facility] Comment on above: Order Comment: Speci men Type: BLOOD SPECIMEN Ordering Facility: [facility] Address: [address] [place] [address] Performed By: #### 5 7021-8 #### [facility] CLIA [id number] [address] [place] [address] Erythrocyte distribution width (RBC) [Ratio] 12.1 % Normal 11.5-15.0 [facility] Comment on above: Order Comment: Speci men Type: BLOOD SPECIMEN Ordering Facility: [facility] Address: [address] [place] [address] Performed By: #### 5 7021-8 #### [facility] CLIA [id number] [address] [place] [address] Hematocrit (Bld) [Volume fraction] 37.0 % Normal 36.0-46.0 [facility] Comment on above: Order Comment: Speci men Type: BLOOD SPECIMEN Ordering Facility: [facility] Address: [address] [place] [address] Performed By: #### 5 7021-8 #### [facility] CLIA [id number] [address] [place] [address] Hemoglobin (Bld) [Mass/Vol] 12.6 g/dL Normal 11.5-15.5 [facility] Comment on above: Order Comment: Speci men Type: BLOOD SPECIMEN Ordering Facility: [facility] Address: [address] [place] [address] Performed By: #### 5 7021-8 #### [facility] CLIA [id number] [address] [place] [address] Immature granulocytes (Bld) [#/Vol] 10*3/uL Normal <0.10 [facility] Comment on above: Order Comment: Speci men Type: BLOOD SPECIMEN Ordering Facility: [facility] Address: [address] [place] [address] Performed By: #### 5 7021-8 #### [facility] CLIA [id number] [address] [place] [address] Immature granulocytes/100 WBC (Bld) 0.2 % Normal [facility] Comment on above: Order Comment: Speci men Type: BLOOD SPECIMEN Ordering Facility: [facility] Address: [address] [place] [address] Performed By: #### 5 7021-8 #### [facility] CLIA [id number] [address] [place] [address] Lymphocytes (Bld) [#/Vol] 1.57 10*3/uL Normal 1.00-4.00 [facility] Comment on above: Order Comment: Speci men Type: BLOOD SPECIMEN Ordering Facility: [facility] Address: [address] [place] [address] Performed By: #### 5 7021-8 #### [facility] CLIA [id number] [address] [place] [address] Lymphocytes/100 WBC (Bld) 31.2 % Normal [facility] Comment on above: Order Comment: Speci men Type: BLOOD SPECIMEN Ordering Facility: [facility] Address: [address] [place] [address] Performed By: #### 5 7021-8 #### [facility] CLIA [id number] [address] [place] [address] MCH (RBC) [Entitic mass] 32.2 pg Normal 26.0-34.0 [facility] Comment on above: Order Comment: Speci men Type: BLOOD SPECIMEN Ordering Facility: [facility] Address: [address] [place] [address] Performed By: #### 5 7021-8 #### [facility] CLIA [id number] [address] [place] [address] MCHC (RBC) [Mass/Vol] 34.1 g/dL Normal 30.5-36.0 [facility] Comment on above: Order Comment: Speci men Type: BLOOD SPECIMEN Ordering Facility: [facility] Address: [address] [place] [address] Performed By: #### 5 7021-8 #### [facility] CLIA [id number] [address] [place] [address] MCV (RBC) [Entitic vol] 94.6 fL Normal 80.0-100.0 [facility] Comment on above: Order Comment: Speci men Type: BLOOD SPECIMEN Ordering Facility: [facility] Address: [address] [place] [address] Performed By: #### 5 7021-8 #### [facility] CLIA [id number] [address] [place] [address] Monocytes (Bld) [#/Vol] 0.32 10*3/uL Normal <0.87 [facility] Comment on above: Order Comment: Speci men Type: BLOOD SPECIMEN Ordering Facility: [facility] Address: [address] [place] [address] Performed By: #### 5 7021-8 #### [facility] CLIA [id number] [address] [place] [address] Monocytes/100 WBC (Bld) 6.3 % Normal [facility] Comment on above: Order Comment: Speci men Type: BLOOD SPECIMEN Ordering Facility: [facility] Address: [address] [place] [address] Performed By: #### 5 7021-8 #### [facility] CLIA [id number] [address] [place] [address] Neutrophils (Bld) [#/Vol] 2.98 10*3/uL Normal 1.45-7.50 [facility] Comment on above: Order Comment: Speci men Type: BLOOD SPECIMEN Ordering Facility: [facility] Address: [address] [place] [address] Performed By: #### 5 7021-8 #### [facility] CLIA [id number] [address] [place] [address] Neutrophils/100 WBC (Bld) 59.1 % Normal [facility] Comment on above: Order Comment: Speci men Type: BLOOD SPECIMEN Ordering Facility: [facility] Address: [address] [place] [address] Performed By: #### 5 7021-8 #### [facility] CLIA [id number] [address] [place] [address] Nucleated RBC (Bld) [#/Vol] 10*3/uL Normal <0.01 [facility] Comment on above: Order Comment: Speci men Type: BLOOD SPECIMEN Ordering Facility: [facility] Address: [address] [place] [address] Performed By: #### 5 7021-8 #### [facility] CLIA [id number] [address] [place] [address] Nucleated RBC/100 WBC (Bld) [Ratio] 0.0 /100 WBC Normal [facility] Comment on above: Order Comment: Speci men Type: BLOOD SPECIMEN Ordering Facility: [facility] Address: [address] [place] [address] Performed By: #### 5 7021-8 #### [facility] CLIA [id number] [address] [place] [address] Platelet mean volume (Bld) [Entitic vol] 10.6 fL Normal 9.0-12.7 [facility] Comment on above: Order Comment: Speci men Type: BLOOD SPECIMEN Ordering Facility: [facility] Address: [address] [place] [address] Performed By: #### 5 7021-8 #### [facility] CLIA [id number] [address] [place] [address] Platelets (Bld) [#/Vol] 226 10*3/uL Normal 150-400 [facility] Comment on above: Order Comment: Speci men Type: BLOOD SPECIMEN Ordering Facility: [facility] Address: [address] [place] [address] Performed By: #### 5 7021-8 #### [facility] CLIA [id number] [address] [place] [address] RBC (Bld) [#/Vol] 3.91 10*6/uL Normal 3.90-5.20 [facility] Comment on above: Order Comment: Speci men Type: BLOOD SPECIMEN Ordering Facility: [facility] Address: [address] [place] [address] Performed By: #### 5 7021-8 #### [facility] CLIA [id number] [address] [place] [address]240 WBC (Bld) [#/Vol] 5.04 10*3/uL Normal 3.70-11.00 [facility] Comment on above: Order Comment: Speci men Type: BLOOD SPECIMEN Ordering Facility: [facility] Address: [address] [place] [address] Performed By: #### 5 7021-8 #### [facility] CLIA [id number] [address] [place] [address] Comprehensive metabolic 2000 panelon 07-26-2023 Albumin [Mass/Vol] 4.4 g/dL Normal 3.9-4.9 [facility] Comment on above: Order Comment: Speci men Type: BLOOD SPECIMEN Ordering Facility: [facility] Address: [address] [place] [address] Performed By: #### 2 4323-8 #### [facility] CLIA [id number] [address] [place] [address] ALP [Catalytic activity/Vol] 40 U/L Normal 34-123 [facility] Comment on above: Order Comment: Speci men Type: BLOOD SPECIMEN Ordering Facility: [facility] Address: [address] [place] [address] Performed By: #### 2 4323-8 #### [facility] CLIA [id number] [address] [place] [address] 47847 ALT [Catalytic activity/Vol] 5 U/L Low 7-38 [facility] Comment on above: Order Comment: Speci men Type: BLOOD SPECIMEN Ordering Facility: [facility] Address: [address] [place] [address] Performed By: #### 2 4323-8 #### [facility] CLIA [id number] [address] [place] [address]77 Anion gap [Moles/Vol] 8 mmol/L Low 9-18 [facility] Comment on above: Order Comment: Speci men Type: BLOOD SPECIMEN Ordering Facility: [facility] Address: [address] [place] [address] Performed By: #### 2 4323-8 #### [facility] CLIA [id number] [address] [place] [address] 18314 AST [Catalytic activity/Vol] 7 U/L Low 13-35 [facility] Comment on above: Order Comment: Speci men Type: BLOOD SPECIMEN Ordering Facility: [facility] Address: [address] [place] [address] Performed By: #### 2 4323-8 #### [facility] CLIA [id number] [address] [place] [address] Bilirubin [Mass/Vol] 0.6 mg/dL Normal 0.2-1.3 [facility] Comment on above: Order Comment: Speci men Type: BLOOD SPECIMEN Ordering Facility: [facility] Address: [address] [place] [address] Performed By: #### 2 4323-8 #### [facility] CLIA [id number] [address] [place] [address] Calcium [Mass/Vol] 9.5 mg/dL Normal 8.5-10.2 [facility] Comment on above: Order Comment: Speci men Type: BLOOD SPECIMEN Ordering Facility: [facility] Address: [address] [place] [address] Performed By: #### 2 4323-8 #### [facility] CLIA [id number] [address] [place] [address] 10119 Chloride [Moles/Vol] 105 mmol/L Normal 97-105 [facility] Comment on above: Order Comment: Speci men Type: BLOOD SPECIMEN Ordering Facility: [facility] Address: [address] [place] [address] Performed By: #### 2 4323-8 #### [facility] CLIA [id number] [address] [place] [id number] CO2 [Moles/Vol] 27 mmol/L Normal 22-30 [facility] Comment on above: Order Comment: Speci men Type: BLOOD SPECIMEN Ordering Facility: [facility] Address: [address] [place] [address] Performed By: #### 2 4323-8 #### [facility] CLIA [id number] [address] [place] [address]335 Creatinine [Mass/Vol] 0.76 mg/dL Normal 0.58-0.96 [facility] Comment on above: Order Comment: Speci men Type: BLOOD SPECIMEN Ordering Facility: [facility] Address: [address] [place] [address] Performed By: #### 2 4323-8 #### [facility] CLIA [id number] [address] [place] [address] Creatinine and Glomerular filtration rate.predicted panel (S/P/Bld) 108 mL/min/1.73m??? Normal >=60 [facility] Comment on above: Order Comment: Mary head Type: BLOOD SPECIMEN Ordering Facility: [facility] Address: [address] [place] [address] Result Comment: Erma mated Glomerular Filtration Rate [...] GFR. Performed By: #### 2 4323-8 #### [facility] CLIA [id number] [address] [place] [address]64 Glucose [Mass/Vol] 93 mg/dL Normal 74-99 [facility] Comment on above: Order Comment: Mary head Type: BLOOD SPECIMEN Ordering Facility: [facility] Address: [address] [place] [address] Result Comment: The [place] Diabetes Association (ADA) provides guidance for cutoff [...] Standards of Medical Care in Diabetes 2016, [place] Diabetes Association. Diabetes Care. 2016.39(Suppl 1). Performed By: #### 2 4323-8 #### [facility] CLIA [id number] [address] [place] [address] Potassium [Moles/Vol] 4.2 mmol/L Normal 3.7-5.1 [facility] Comment on above: Order Comment: Mary head Type: BLOOD SPECIMEN Ordering Facility: [facility] Address: [address] [place] [address] Performed By: #### 2 4323-8 #### [facility] CLIA [id number] [address] [place] [address]00 Protein [Mass/Vol] 7.2 g/dL Normal 6.3-8.0 [facility] Comment on above: Order Comment: Speci men Type: BLOOD SPECIMEN Ordering Facility: [facility] Address: [address] [place] [address] Performed By: #### 2 4323-8 #### [facility] CLIA [id number] [address] [place] [address] 07482 Sodium [Moles/Vol] 140 mmol/L Normal 136-144 [facility] Comment on above: Order Comment: Speci men Type: BLOOD SPECIMEN Ordering Facility: [facility] Address: [address] [place] [address] Performed By: #### 2 4323-8 #### [facility] CLIA [id number] [address] [place] [address]804 Urea nitrogen [Mass/Vol] 11 mg/dL Normal 7-21 [facility] Comment on above: Order Comment: Speci men Type: BLOOD SPECIMEN Ordering Facility: [facility] Address: [address] [place] [address] Performed By: #### 2 4323-8 #### [facility] CLIA [id number] [address] [place] [address] 75698 HBV surface Ab Ql (S)on HBV surface Ab Qn (S) <8.00 Normal [facility] Comment on above: Order Comment: Speci men Type: BLOOD SPECIMEN Ordering Facility: [facility] Address: [address] [place] [address] Result Comment: <8 m IU/mL: No serological evidence of immunity to Hepatitis B Virus. >/= 8 to <12 mIU/mL: No serological evidence of immunity to Hepatitis B Virus. >/= 12 mIU/mL: Consistent with serological evidence of immunity to Hepatitis B Virus. Performed By: #### 2 2322-2 #### [facility] CLIA [id number] [address] [place] [address] [place] HBV surface Ab Ser Qlon 12-0 HBV surface Ab Ql (S) Negative Normal [facility] Comment on above: Order Comment: Speci men Type: BLOOD SPECIMEN Ordering Facility: [facility] Address: [address] [place] [address] Result Comment: No s erological evidence of immunity to Hepatitis B Virus. Performed By: #### 2 2322-2 #### [facility] CLIA [id number] [address] [place] [address] [place] HbA1c (Bld)on 07-26-2023 Average glucose Estimated from glycated hemoglobin (Bld) [Mass/Vol] 94 mg/dL Normal [facility] Comment on above: Order Comment: Speci [facility] Type: BLOOD SPECIMEN Ordering Facility: [facility] Address: [address] [place] [address] Result Comment: eAG: (Estimated average glucose) is a calculated value from HgbA1c and is telesales representative of the average blood glucose level in the last 2-3 month period. Performed By: #### 5 5454-3 #### [facility] CLIA [id number] [address] [place] [address] [place] HbA1c (Bld) [Mass fraction] 4.9 % Normal 4.3-5.6 [facility] Comment on above: Order Comment: Speci [facility] Type: BLOOD SPECIMEN Ordering Facility: [facility] Address: [address] [place] [address] Result Comment: Amer [place] Diabetes Association guidelines indicate that patients with HgbA1c in the range 5.7-6.4% are at increased risk for development of diabetes, and intervention by lifestyle modification may be beneficial. HgbA1c greater or equal to 6.5% is considered diagnostic of diabetes. Performed By: #### 5 5454-3 #### [facility] CLIA [id number] [address] [place] Lipid 1996 panelon 3 Cholesterol [Mass/Vol] 172 mg/dL Normal <200 [facility] Comment on above: Order Comment: Micki men Type: BLOOD SPECIMEN Ordering Facility: [facility] Address: [address] [place] [address] Result Comment: <200 mg/dL, Desirable 200-239 mg/dL, Borderline high >239 mg/dL, High Performed By: #### 2 4331-1 #### [facility] CLIA [id number] [address] [facility] CLIA [id number] [address] [place] [address]28 Cholesterol in HDL [Mass/Vol] 58 mg/dL Normal >39 [facility] Comment on above: Order Comment: Micki men Type: BLOOD SPECIMEN Ordering Facility: [facility] Address: [address] [place] [address] Result Comment: 40-5 9 mg/dL, Acceptable >59 mg/dL, High: Negative risk factor for coronary heart disease <40 mg/dL, Low: Positive risk factor for coronary heart disease Performed By: #### 2 4331-1 #### [facility] CLIA [id number] [address] [facility] CLIA [id number] [address] [place] [address] 84658 Cholesterol in LDL [Mass/Vol] 103 mg/dL High <100 [facility] Comment on above: Order Comment: Speci men Type: BLOOD SPECIMEN Ordering Facility: [facility] Address: [address] [place] [address] Result Comment: <100 mg/dL, Optimal 100-129 mg/dL, Near optimal/above optimal 130-159 mg/dL, Borderline high 160-189 mg/dL, High >189 mg/dL, Very high Secondary prevention optimal LDL Cholesterol levels are recommended to be < 70 mg/dL Performed By: #### 2 4331-1 #### [facility] CLIA [id number] [address] LAB CLIA [id number] [address] [place] [address]334 Cholesterol in LDL/Cholesterol in HDL [Mass ratio] 1.78 {ratio} Normal <2.54 [facility] Comment on above: Order Comment: Speci men Type: BLOOD SPECIMEN Ordering Facility: [facility] Address: [address] [place] [address] Result Comment: Elkin horta: 1. National Cholesterol Education Program ATP III Guideline At-A-Glance Quick Desk Reference: National Heart, Lung, and Blood [place]. National Institutes of Health. 2001: NIH Publication No. 01-3305. 2. An International Atherosclerosis Society position paper: global recommendations for the management of dyslipidemia: executive summary, Atherosclerosis. 2014: 232(2):410-413. Performed By: #### 2 4331-1 #### [facility] CLIA [id number] [address] [place] [address] LAB CLIA [id number] [address] [place] [address] 66595 Cholesterol in VLDL [Mass/Vol] 11 mg/dL Normal <30 [facility] Comment on above: Order Comment: Speci men Type: BLOOD SPECIMEN Ordering Facility: [facility] Address: [address] [place] [address] Performed By: #### 2 4331-1 #### [facility] CLIA [id number] [address] [place] [address] LAB CLIA [id number] [address] [place] [address] 99555 Cholesterol non HDL [Mass/Vol] 114 mg/dL Normal <130 [facility] Comment on above: Order Comment: Speci men Type: BLOOD SPECIMEN Ordering Facility: [facility] Address: [address] [place] [address] Result Comment: <130 mg/dL, Optimal 130-159 mg/dL, Near optimal/above optimal 160-189 mg/dL, Borderline high 190-219 mg/dL, High >219 mg/dL, Very high Secondary prevention optimal non HDL Cholesterol levels are recommended to be <100 mg/dL Performed By: #### 2 4331-1 #### [facility] CLIA [id number] [address] [place] [id number] [facility] CLIA [id number] [address] [place] [address]591 Cholesterol.total/Choles terol in HDL [Mass ratio] 2.97 {ratio} Normal <5.10 [facility] Comment on above: Order Comment: Speci men Type: BLOOD SPECIMEN Ordering Facility: [facility] Address: [address] [place] [address] Performed By: #### 2 4331-1 #### [facility] CLIA [id number] [address] [place] [address] LAB CLIA [id number] [address] [place], [place] [id number] FASTING TIME 12 hrs Normal [facility] Comment on above: Order Comment: Speci men Type: BLOOD SPECIMEN Ordering Facility: [facility] Address: [address] [place] [address] Performed By: #### 2 4331-1 #### [facility] CLIA [id number] [address] [place] [address] LAB CLIA [id number] [address] [place], [place] [id number] Triglyceride [Mass/Vol] 53 mg/dL Normal <150 [facility] Comment on above: Order Comment: Speci men Type: BLOOD SPECIMEN Ordering Facility: [facility] Address: [address] [place] [address] Result Comment: <150 mg/dL, Normal 150-199 mg/dL, Borderline high 200-499 mg/dL, High >499 mg/dL, Very high Performed By: #### 2 4331-1 #### [facility] CLIA [id number] [address] [facility] [address] [address] [place] [facility] CLIA [id number] [address] [place] [address] Jemima 07-21-2023 CNOV Office Visit (INMAVN) CARYL ZAMARRIPA ([id number]) 1990 F Date Time Provider Department 07/21/23 4:20 PM BERENICE ZEPEDA INMTJUAN During your visit today, we recorded the following information about you: Pulse Blood pressure Weight Height 60/minute 112/74 80.1 kg 1.612 m Last Period 07/09/23 Berenice Zepeda APRN.ASSISTANT TRACK COACH 07/22/2023 10:16 AM Signed Caryl Zamarripa is a 32 year old female here today for review of established medical problems as well as comprehensive physical examination. 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 MEDICATIONS Omeprazole Magnesium (ACID AIRLINE MANAGER, OMEPRAZOLE,) 20 mg cpDR Phentermine HCl [...] No history of dysuria, frequency or incontinence REPAIRER AND CHECKER: Negative for abnormal vaginal bleeding, abnormal vaginal [...] and symmetric. Sensation grossly intact. Breast/Pelvic: Per REPAIRER AND CHECKER ASSESSMENT/PLAN: 1. Routine adult health maintenance - ICD9: V70.0, ICD10: Z00.00 (primary diagnosis) - Counseled on healthy diet and regular exercise - Calcium intake with supplements or by diet of 1000 mg/day for under 50, 7867-8745 mg/day for 50+ - Discussed need and benefit for weight loss. BMI 30.81 kg/(m2) - HGB A1C - COMP METABOLIC PANEL - LIPID PANEL BASIC - CBC + DIFF 2. IFG (impaired fasting glucose) - ICD9: 790.21, ICD10: (more content not included)... Normal [facility] Basophils Auto (Bld) [#/Vol] Ordered By: Reena Breaux on 10-11-2022 Basophils (Bld) [#/Vol] 0.0 10*3/uL 0.0-0.2 [facility] Basophils/100 WBC Auto (Bld) Ordered By: Reena Breaux on 10-11-2022 Basophils/100 WBC (Bld) 0.7 % . F [facility] Body fluid albumin measureme nt (mass/volume)Ordered By: Reena Breaux on 10-11-2022 Albumin (Body fld) [Mass/Vol] 4.0 g/dL 3.2-5.5 [facility] CT biopsyOrdered By: Reena malhotra on 10-11-2022 Transferrin [Mass/Vol] 206 mg/dL 180-380 [facility] Complete Blood Count Auto Di ffon 10-11-2022 Basophils (Bld) [#/Vol] 0.0 10*3/uL Normal 0.0-0.2 [facility] Comment on above: Result Comment: PERF ORMED BY: [place] [address] PATHOLOGIST [employer] DIRECTOR AMANDA CALLE M.D. Performed By: #### P HOS, [id number], CMP, CBC, [id number], FE PRO, MG #### [address] #### VITB1 #### [facility] , Basophils/100 WBC (Bld) 0.7 % Normal . [facility] Comment on above: Performed By: #### P HOS, [id number], CMP, CBC, [id number], FE PRO, MG #### [address] #### VITB1 #### [facility] , Eosinophils (Bld) [#/Vol] 0.1 10*3/uL Normal 0.0-0.45 [facility] Comment on above: Performed By: #### P HOS, [id number], CMP, CBC, [id number], FE PRO, MG #### [address] #### VITB1 #### [facility] , Eosinophils/100 WBC (Bld) 1.7 % Normal . [facility] Comment on above: Performed By: #### P HOS, [id number], CMP, CBC, [id number], FE PRO, MG #### [address] #### VITB1 #### [facility] , Erythrocyte distribution width (RBC) [Ratio] 12.9 % Normal 11.9-15.3 [facility] Comment on above: Performed By: #### P HOS, [id number], CMP, CBC, [id number], FE PRO, MG #### [facility] [address] [place] [address] [place] #### VITB1 #### [facility] , Hematocrit (Bld) [Volume fraction] 39.1 % Normal 34.0-46.4 [facility] Comment on above: Performed By: #### P HOS, [id number], CMP, CBC, [id number], FE PRO, MG #### [facility] [address] [place] [address] #### VITB1 #### [facility] , Hemoglobin (Bld) [Mass/Vol] 13.1 g/dL Normal 11.8-15.4 [facility] Comment on above: Performed By: #### P HOS, [id number], CMP, CBC, [id number], FE PRO, MG #### [facility] [address] [place] [address] #### VITB1 #### [facility] , Lymphocytes (Bld) [#/Vol] 2.7 10*3/uL Normal 1.00-4.8 [facility] Comment on above: Performed By: #### P HOS, [id number], CMP, CBC, [id number], FE PRO, MG #### [address] #### VITB1 #### [facility] , Lymphocytes/100 WBC (Bld) 39.8 % Normal . [facility] Comment on above: Performed By: #### P HOS, [id number], CMP, CBC, [id number], FE PRO, MG #### [facility] [address] [place] [address] [place] #### VITB1 #### [facility] , MCH (RBC) [Entitic mass] 31.9 pg Normal 24.7-34.3 [facility] Comment on above: Performed By: #### P HOS, [id number], CMP, CBC, [id number], FE PRO, MG #### [facility] [address] [place] [address] [place] #### VITB1 #### [facility] , MCV (RBC) [Entitic vol] 95.3 fL Normal 80-100 [facility] Comment on above: Performed By: #### P HOS, [id number], CMP, CBC, [id number], FE PRO, MG #### [facility] [address] [place] [address] #### VITB1 #### [facility] , Mean Corpuscular HGB Conc 33.5 g/dL Normal 32.0-35.0 [facility] Comment on above: Performed By: #### P HOS, [id number], CMP, CBC, [id number], FE PRO, MG #### [facility] [address] [place] [address] #### VITB1 #### [facility] , Monocytes (Bld) [#/Vol] 0.3 10*3/uL Normal 0.0-0.8 [facility] Comment on above: Performed By: #### P HOS, [id number], CMP, CBC, [id number], FE PRO, MG #### [facility] [address] [place] [address] [place] #### VITB1 #### [facility] , Monocytes/100 WBC (Bld) 5.1 % Normal . [facility] Comment on above: Performed By: #### P HOS, [id number], CMP, CBC, [id number], FE PRO, MG #### [facility] [address] [place] [address] [place] #### VITB1 #### [facility] , Neutrophils (Bld) [#/Vol] 3.6 10*3/uL Normal 1.8-7.7 [facility] Comment on above: Performed By: #### P HOS, [id number], CMP, CBC, [id number], FE PRO, MG #### [facility] [address] [place] [address] [place] #### VITB1 #### [facility] , Neutrophils/100 WBC (Bld) 52.7 % Normal . [facility] Comment on above: Performed By: #### P HOS, [id number], CMP, CBC, [id number], FE PRO, MG #### [facility] [address] [place] [address] #### VITB1 #### [facility] , NRBC% 0.0 /100{WBC} Normal 0-0.5 [facility] Comment on above: Performed By: #### P HOS, [id number], CMP, CBC, [id number], FE PRO, MG #### [facility] [address] [place] [address] #### VITB1 #### [facility] , Platelet mean volume (Bld) [Entitic vol] 9.8 fL Normal 6.3-10.7 [facility] Comment on above: Performed By: #### P HOS, [id number], CMP, CBC, [id number], FE PRO, MG #### [facility] [address] [place] [address] #### VITB1 #### [facility] , Platelets (Bld) [#/Vol] 226 10*3/uL Normal 150-450 [facility] Comment on above: Performed By: #### P HOS, [id number], CMP, CBC, [id number], FE PRO, MG #### [facility] [address] [place] [address] [place] #### VITB1 #### [facility] , RBC (Bld) [#/Vol] 4.11 10*6/uL Normal 3.60-5.00 [facility] Comment on above: Performed By: #### P HOS, [id number], CMP, CBC, [id number], FE PRO, MG #### [facility] [address] [place] [address] [place] #### VITB1 #### [facility] , WBC (Bld) [#/Vol] 6.8 10*3/uL Normal 3.8-11.6 [facility] Comment on above: Performed By: #### P HOS, [id number], CMP, CBC, [id number], FE PRO, MG #### [facility] [address] [place] [address] #### VITB1 #### [facility] , Comprehensive Metabolic Pane nicole 10-11-2022 Albumin [Mass/Vol] 4.0 g/dL Normal 3.2-5.5 [facility] Comment on above: Performed By: #### P HOS, [id number], CMP, CBC, [id number], FE PRO, MG #### [facility] [address] [place] [address] #### VITB1 #### [facility] , Albumin/Globulin [Mass ratio] 1.4 {ratio} Normal [facility] Comment on above: Performed By: #### P HOS, [id number], CMP, CBC, [id number], FE PRO, MG #### [facility] [address] [place] [address] [place] #### VITB1 #### [facility] , ALP [Catalytic activity/Vol] 36 U/L Normal 32-92 [facility] Comment on above: Performed By: #### P HOS, [id number], CMP, CBC, [id number], FE PRO, MG #### [facility] [address] [place] [address] [place] #### VITB1 #### [facility] , ALT [Catalytic activity/Vol] 12 U/L Normal 10-60 [facility] Comment on above: Performed By: #### P HOS, [id number], CMP, CBC, [id number], FE PRO, MG #### [facility] [address] [place] [address] [place] #### VITB1 #### [facility] , Anion gap [Moles/Vol] 11.6 mmol/L Normal 6.0-15.0 [facility] Comment on above: Performed By: #### P HOS, [id number], CMP, CBC, [id number], FE PRO, MG #### [facility] [address] [place] [address] #### VITB1 #### [facility] , AST [Catalytic activity/Vol] 11 U/L Normal 10-42 [facility] Comment on above: Performed By: #### P HOS, [id number], CMP, CBC, [id number], FE PRO, MG #### [facility] [address] [place] [address] #### VITB1 #### [facility] , Bilirubin [Mass/Vol] 0.3 mg/dL Normal 0.3-1.2 [facility] Comment on above: Performed By: #### P HOS, [id number], CMP, CBC, [id number], FE PRO, MG #### [facility] [address] [place] [address] #### VITB1 #### [facility] , Calcium [Mass/Vol] 9.3 mg/dL Normal 8.2-10.2 [facility] Comment on above: Performed By: #### P HOS, [id number], CMP, CBC, [id number], FE PRO, MG #### [facility] [address] [place] [address] [place] #### VITB1 #### [facility] , Chloride [Moles/Vol] 103 mmol/L Normal 95-114 [facility] Comment on above: Performed By: #### P HOS, [id number], CMP, CBC, [id number], FE PRO, MG #### [facility] [address] [place] [address] [place] #### VITB1 #### [facility] , CO2 [Moles/Vol] 26.4 mmol/L Normal 22.0-30.0 [facility] Comment on above: Performed By: #### P HOS, [id number], CMP, CBC, [id number], FE PRO, MG #### [facility] [address] [place] [address] [place] #### VITB1 #### [facility] , Creatinine [Mass/Vol] 0.70 mg/dL Normal 0.44-1.03 [facility] Comment on above: Performed By: #### P HOS, [id number], CMP, CBC, [id number], FE PRO, MG #### [facility] [address] [place] [address] #### VITB1 #### [facility] , Estimated GFR ( Christiano > 60 [facility] Comment on above: Result Comment: GFR estimated reference range: According to KDOQI guidelines, <60 ml/min/1.73m2 is sufficient to diagnose a patient with chronic kidney disease. Performed By: #### P HOS, [id number], CMP, CBC, [id number], FE PRO, MG #### [facility] [address] [place] [address] [place] #### VITB1 #### [facility] , Estimated GFR (Non- Am > 60 [facility] Comment on above: Performed By: #### P HOS, [id number], CMP, CBC, [id number], FE PRO, MG #### [facility] [address] [place] [address] [place] #### VITB1 #### [facility] , Globulin (S) [Mass/Vol] 2.8 g/dL Normal [facility] Comment on above: Performed By: #### P HOS, [id number], CMP, CBC, [id number], FE PRO, MG #### [facility] [address] [place] [address] [place] #### VITB1 #### [facility] , Glucose [Mass/Vol] 85 mg/dL Normal 70-100 [facility] Comment on above: Result Comment: [facility] Glucose Reference Range is dependent on time and content of last meal. Glucose of more than 200 mg/dL in a nonstressed, ambulatory subject supports the diagnosis of Diabetes Mellitus. ADA recommended reference range Performed By: #### P HOS, [id number], CMP, CBC, [id number], FE PRO, MG #### [facility] [address] [place] [address] [place] #### VITB1 #### [facility] , Potassium [Moles/Vol] 4.0 mmol/L Normal 3.5-5.1 [facility] Comment on above: Performed By: #### P HOS, [id number], CMP, CBC, [id number], FE PRO, MG #### [facility] [address] [place] [address] [place] #### VITB1 #### [facility] , Protein [Mass/Vol] 6.8 g/dL Normal 6.1-7.9 [facility] Comment on above: Performed By: #### P HOS, [id number], CMP, CBC, [id number], FE PRO, MG #### [facility] [address] [place] [address] [place] #### VITB1 #### [facility] , Sodium [Moles/Vol] 137 mmol/L Normal 136-146 [facility] Comment on above: Performed By: #### P HOS, [id number], CMP, CBC, [id number], FE PRO, MG #### [facility] [address] [place] [address] [place] #### VITB1 #### [facility] , Urea nitrogen [Mass/Vol] 11 mg/dL Normal 9-23 [facility] Comment on above: Performed By: #### P HOS, [id number], CMP, CBC, [id number], FE PRO, MG #### [facility] [address] [place] [address] [place] #### VITB1 #### [facility] , Creatinine and Glomerular fi ltration rate.predicted panel (S/P/Bld)Ordered By: Reena Breaux on 10-11-2022 Creatinine [Mass/Vol] 0.70 mg/dL 0.44-1.03 [facility] Eosinophils Auto (Bld) [#/Vo l]Ordered By: Reena Breaux on 10-11-2022 Eosinophils (Bld) [#/Vol] 0.1 10*3/uL 0.0-0.45 [facility] Eosinophils/100 WBC Auto (Bl d)Ordered By: Reena Breaux on 10-11-2022 Eosinophils/100 WBC (Bld) 1.7 % . [facility] Erythrocyte distribution wid th Auto (RBC) [Ratio]Ordered By: Reena Breaux on 10-11-2022 Erythrocyte distribution width (RBC) [Ratio] 12.9 % 11.9-15.3 [facility] Estimated glomerular filtrat ion rate (GFR) non- AmericanOrdered By: Reena Breaux on 10-11-2022 GFR/1.73 sq M.predicted among non-blacks MDRD (S/P/Bld) [Vol rate/Area] > 60 mL/Min [facility] FE PROon 10-11-2022 % Iron Saturation 24.0 % Normal 20-50 [facility] Comment on above: Performed By: #### P HOS, [id number], CMP, CBC, [id number], FE PRO, MG #### [facility] [address] [place] [address] [place] #### VITB1 #### [facility] , Ferritin [Mass/Vol] 29.2 ng/mL Normal 11-306.8 [facility] Comment on above: Performed By: #### P HOS, [id number], CMP, CBC, [id number], FE PRO, MG #### [facility] [address] [place] [address] [place] #### VITB1 #### [facility] , Iron [Mass/Vol] 69 ug/dL Normal 40-150 [facility] Comment on above: Performed By: #### P HOS, [id number], CMP, CBC, [id number], FE PRO, MG #### [facility] [address] [place] [address] [place] #### VITB1 #### [facility] , Total Iron Binding Capacity 288 ug/dL Normal 255-450 [facility] Comment on above: Performed By: #### P HOS, [id number], CMP, CBC, [id number], FE PRO, MG #### [facility] [address] [place] [address] [place] #### VITB1 #### [facility] , Transferrin [Mass/Vol] 206 mg/dL Normal 180-380 [facility] Comment on above: Performed By: #### P HOS, [id number], CMP, CBC, [id number], FE PRO, MG #### [facility] [address] [place] [address] [place] #### VITB1 #### [facility] , Ferritin [Mass/volume] in Se rum or PlasmaOrdered By: Reena Breaux on 10-11-2022 Ferritin [Mass/Vol] 29.2 ng/mL 11-306.8 [facility] Folate [Mass/volume] in Seru m or PlasmaOrdered By: Reena Breaux on 10-11-2022 Folate [Mass/Vol] 22.2 ng/mL >5.9 [facility] Comment on above: Folate reference ran ge: >5.9 ng/mlThe WHO technical consultation on folate and vitamin [id number] has determined that folate concentrations lessthan 4 ng/ml are considered deficient. Globulin Calc (S) [Mass/Vol] Ordered By: Reena Breaux on 10-11-2022 Globulin (S) [Mass/Vol] 2.8 g/dL [facility] Hematocrit Auto (Bld) [Volum e fraction]Ordered By: Reena Breaux on 10-11-2022 Hematocrit (Bld) [Volume fraction] 39.1 % 34.0-46.4 [facility] Hemoglobin [Mass/volume] in BloodOrdered By: Reena Breaux on 10-11-2022 Hemoglobin (Bld) [Mass/Vol] 13.1 g/dL 11.8-15.4 [facility] Iron [Mass/volume] in Serum or PlasmaOrdered By: Reena Breaux on 10-11-2022 Iron [Mass/Vol] 69 ug/dL 40-150 [facility] Iron binding capacity [Mass/ volume] in Serum or PlasmaOrdered By: Reena Breaux on 10-11-2022 Iron binding capacity [Mass/Vol] 288 ug/dL 255-450 [facility] Iron saturation [Mass Fracti on] in Serum or PlasmaOrdered By: Reena Breaux on 10-11-2022 Iron saturation [Mass fraction] 24.0 % 20-50 [facility] Laboratory - Chemistry and C hemistry - challengeOrdered By: Reena Breaux on 10-11-2022 Cobalamin (Vitamin B12) [Mass/Vol] 1437 pg/mL 180-914 [facility] Magnesium [Mass/Vol] 2.1 mg/dL 1.6-2.6 [facility] Leukocytes [#/volume] correc jakob for nucleated erythrocytes in Blood by Automated counOrdered By: Reena Breaux on 10-11-2022 WBC corrected for nucl RBC Auto (Bld) [#/Vol] 6.8 10*3/uL 3.8-11.6 [facility] Lymphocytes Auto (Bld) [#/Vo l]Ordered By: Reena Breaux on 10-11-2022 Lymphocytes (Bld) [#/Vol] 2.7 10*3/uL 1.00-4.8 [facility] Lymphocytes/100 WBC Auto (Bl d)Ordered By: Reena Breaux on 10-11-2022 Lymphocytes/100 WBC (Bld) 39.8 % . [facility] MCH Auto (RBC) [Entitic mass ]Ordered By: Reena Breaux on 10-11-2022 MCH (RBC) [Entitic mass] 31.9 pg 24.7-34.3 [facility] MCHC Auto (RBC) [Mass/Vol]Or dered By: eRena Breaux on 10-11-2022 MCHC (RBC) [Mass/Vol] 33.5 g/dL 32.0-35.0 [facility] MCV Auto (RBC) [Entitic vol] Ordered By: Reena Breaux on 10-11-2022 MCV (RBC) [Entitic vol] 95.3 fL 80-100 [facility] Magnesiumon 10-11-2022 Magnesium [Mass/Vol] 2.1 mg/dL Normal 1.6-2.6 [facility] Comment on above: Performed By: #### P HOS, [id number], CMP, CBC, [id number], FE PRO, MG #### [facility] [address] #### VITB1 #### [facility] , Monocytes Auto (Bld) [#/Vol] Ordered By: Reena Breaux on 10-11-2022 Monocytes (Bld) [#/Vol] 0.3 10*3/uL 0.0-0.8 [facility] Monocytes/100 WBC Auto (Bld) Ordered By: Reena Breaux on 10-11-2022 Monocytes/100 WBC (Bld) 5.1 % . [facility] Neutrophils Auto (Bld) [#/Vo l]Ordered By: Reena Breaux on 10-11-2022 Neutrophils (Bld) [#/Vol] 3.6 10*3/uL 1.8-7.7 [facility] Neutrophils/100 WBC Auto (Bl d)Ordered By: Reena Breaux on 10-11-2022 Neutrophils/100 WBC (Bld) 52.7 % . [facility] No Panel InformationOrdered By: Reena Breaux on 10-11-2022 25-Hydroxy Vitamin D Total 33.9 ng/mL 30-100 [facility] Comment on above: VITAMIN D STATUS 25( [place])VITAMIN D RANGE (ng/mL) Deficient <20 Insufficient 20 to <30Sufficient 30 to 100Reference: Kofi MF,Mauricio NC, Mayank CUELLAR, et al. Evaluation,treatment, and prevention of vitamin D deficiency; an Endocrine Society clinical practice guideline. JCEM. 2010; 96(7):1911-30. Estimated GFR () > 60 mL/Min [facility] Comment on above: GFR estimated refere nce range: According to KDOQI guidelines, <60 ml/min/1.73m2 is sufficient to diagnose a patient with chronic kidney disease. Pharmacy Creatinine Clearance (Chem N/A [facility] Nucleated erythrocytes [Pres ence] in Blood by Automated countOrdered By: Reena Breaux on 10-11-2022 Nucleated RBC Auto Ql (Bld) 0.0 /100{WBC} 0-0.5 [facility] Phosphate [Mass/volume] in S negro or PlasmaOrdered By: Reena Breaux on 10-11-2022 Phosphate [Mass/Vol] 3.9 mg/dL 2.5-4.6 [facility] Phosphoruson 10-11-2022 Phosphate [Mass/Vol] 3.9 mg/dL Normal 2.5-4.6 [facility] Comment on above: Performed By: #### P HOS, [id number], CMP, CBC, [id number], FE PRO, MG #### [facility] [address] [place] [address] #### VITB1 #### [facility] , Platelet mean volume Auto (B ld) [Entitic vol]Ordered By: Reena Breaux on 10-11-2022 Platelet mean volume (Bld) [Entitic vol] 9.8 fL 6.3-10.7 [facility] Platelets Auto (Bld) [#/Vol] Ordered By: Reena Breaux on 10-11-2022 Platelets (Bld) [#/Vol] 226 10*3/uL 150-450 [facility] Protein [Mass/volume] in Ser um or PlasmaOrdered By: Reena Breaux on 10-11-2022 Protein [Mass/Vol] 6.8 g/dL 6.1-7.9 [facility] RBC Auto (Bld) [#/Vol]Ordere d By: Reena Breaux on 10-11-2022 RBC (Bld) [#/Vol] 4.11 10*6/uL 3.60-5.00 [facility] Serum or plasma alanine doss otransferase measurement without P-5'-P (enzymatic activiOrdered By: Reena Breaux on 10-11-2022 ALT No additional P-5'-P [Catalytic activity/Vol] 12 U/L 10-60 [facility] Serum or plasma albumin/glob ulin mass ratioOrdered By: Reena Breaux on 10-11-2022 Albumin/Globulin [Mass ratio] 1.4 {ratio} [facility] Serum or plasma alkaline denis sphatase measurement (enzymatic activity/volume)Ordered By: Reena Breaux on 10-11-2022 ALP [Catalytic activity/Vol] 36 U/L 32-92 [facility] Serum or plasma anion gap de terminationOrdered By: Reena Breaux on 10-11-2022 Anion gap [Moles/Vol] 11.6 mmol/L 6.0-15.0 [facility] Serum or plasma aspartate am inotransferase measurement (enzymatic activity/volume)Ordered By: Reena Breaux on 10-11-2022 AST [Catalytic activity/Vol] 11 U/L 10-42 [facility] Serum or plasma calcium gloria urement (mass/volume)Ordered By: Reena Breaux on 10-11-2022 Calcium [Mass/Vol] 9.3 mg/dL 8.2-10.2 [facility] Serum or plasma chloride gina surement (moles/volume)Ordered By: Reena Breaux on 10-11-2022 Chloride [Moles/Vol] 103 mmol/L 95-114 [facility] Serum or plasma glucose gloria urement (mass/volume)Ordered By: Reena Breaux on 10-11-2022 Glucose [Mass/Vol] 85 mg/dL 70-100 [facility] Comment on above: ADA recommended refe rence rangeRandom Glucose Reference Range is dependent on time and content of last meal. Glucose of more than 200 mg/dL in a nonstressed, ambulatory subject supports the diagnosis of Diabetes Mellitus. Serum or plasma potassium me asurement (moles/volume)Ordered By: Reena Breaux on 10-11-2022 Potassium [Moles/Vol] 4.0 mmol/L 3.5-5.1 [facility] Serum or plasma sodium measu rement (moles/volume)Ordered By: Reena Breaux on 10-11-2022 Sodium [Moles/Vol] 137 mmol/L 136-146 [facility] Serum or plasma total biliru bin measurement (mass/volume)Ordered By: Reena Breaux on 10-11-2022 Bilirubin [Mass/Vol] 0.3 mg/dL 0.3-1.2 [facility] Serum or plasma total carbon dioxide measurement (moles/volume)Ordered By: Reena Breaux on 10-11-2022 CO2 [Moles/Vol] 26.4 mmol/L 22.0-30.0 [facility] Serum or plasma urea nitroge n measurement (mass/volume)Ordered By: Reena Breaux on 10-11-2022 Urea nitrogen [Mass/Vol] 11 mg/dL 9-23 [facility] Vit. B12/Folate Profileon Cobalamin (Vitamin B12) [Mass/Vol] 1437 pg/mL High 180-914 [facility] Comment on above: Performed By: #### P HOS, [id number], CMP, CBC, [id number], FE PRO, MG #### [facility] [address] #### VITB1 #### [facility] , Folate 22.2 ng/mL Normal >5.9 [facility] Comment on above: Result Comment: Tara te reference range: >5.9 ng/ml The WHO technical consultation on folate and vitamin b12 deficiencies has determined that folate concentrations less than 4 ng/ml are considered deficient. Performed By: #### P HOS, [id number], CMP, CBC, [id number], FE PRO, MG #### [facility] [address] [place] [address] [place] #### VITB1 #### [facility] , Vitamin B1 (Thiamine) Bloodo n 10-11-2022 Vitamin B1 (Thiamine) Blood 153.8 Normal 66.5-200.0 [facility] Comment on above: Result Comment: This test was developed and its performance characteristics determined by [facility]. It has not been cleared or approved by the Food and Drug Administration. Performed at: [facility] [id number] [place] Consultant: Chary Soler MD, Phone: [phone] PERFORMED BY: [place] [id number] PATHOLOGIST [employer]IC MINISTRIES DIRECTOR AMANDA CALLE M.D. Performed By: #### P HOS, [id number], CMP, CBC, [id number], FE PRO, MG #### [facility] [address] [place] [address] #### VITB1 #### [facility] , Vitamin D 25 Hydroxy Totalon 10-11-2022 Vitamin D 25 Hydroxy Total 33.9 ng/mL Normal 30-100 [facility] Comment on above: Result Comment: JONAH MIN D STATUS 25(OH)VITAMIN D RANGE (ng/mL) Deficient <20 Insufficient 20 to <30 Sufficient 30 to 100 Reference: Kofi MF,Mauricio NC, Mayank CUELLAR, et al. Evaluation,treatment, and prevention of vitamin D deficiency; an Endocrine Society clinical practice guideline. JCEM. 2010; 96(7):1911-30. PERFORMED BY: [place] [address] PATHOLOGIST [employer]IC MINISTRIES DIRECTOR AMANDA CALLE M.D. Performed By: #### P HOS, [id number], CMP, CBC, [id number], FE PRO, MG #### [facility] [address] [place] [address] #### VITB1 #### [facility] , WBC Auto (Bld) [#/Vol]Ordere d By: Reena Breaux on 10-11-2022 WBC (Bld) [#/Vol] 6.8 10*3/uL 3.8-11.6 [facility] Complete Blood Count Auto Di ffon 06-10-2022 Basophils (Bld) [#/Vol] 0.0 10*3/uL Normal 0.0-0.2 [facility] Comment on above: Order Comment: NOT F ASTING. JKW Result Comment: PERF ORMED BY: [place] [address] PATHOLOGIST [employer]IC MINISTRIES DIRECTOR AMANDA CALLE M.D. Performed By: #### V ITB1 #### [facility] , #### [id number], CMP, MG, FE PRO, PHOS, [id number], CBC #### [address] Basophils/100 WBC (Bld) 0.7 % Normal . [facility] Comment on above: Order Comment: NOT F ASTING. JKW Performed By: #### V ITB1 #### [facility] , #### [id number], CMP, MG, FE PRO, PHOS, [id number], CBC #### [address] Eosinophils (Bld) [#/Vol] 0.2 10*3/uL Normal 0.0-0.45 [facility] Comment on above: Order Comment: NOT F ASTING. JKW Performed By: #### V ITB1 #### [facility] , #### [id number], CMP, MG, FE PRO, PHOS, [id number], CBC #### [address] Eosinophils/100 WBC (Bld) 2.6 % Normal . [facility] Comment on above: Order Comment: NOT F ASTING. JKW Performed By: #### V ITB1 #### [facility] , #### [id number], CMP, MG, FE PRO, PHOS, [id number], CBC #### [address] Erythrocyte distribution width (RBC) [Ratio] 13.9 % Normal 11.9-15.3 [facility] Comment on above: Order Comment: NOT F ASTING. JKW Performed By: #### V ITB1 #### [facility] , #### [id number], CMP, MG, FE PRO, PHOS, [id number], CBC #### [address] Hematocrit (Bld) [Volume fraction] 39.1 % Normal 34.0-46.4 [facility] Comment on above: Order Comment: NOT F ASTING. JKW Performed By: #### V ITB1 #### [facility] , #### [id number], CMP, MG, FE PRO, PHOS, [id number], CBC #### [address] Hemoglobin (Bld) [Mass/Vol] 12.8 g/dL Normal 11.8-15.4 [facility] Comment on above: Order Comment: NOT F ASTING. JKW Performed By: #### V ITB1 #### [facility] , #### [id number], CMP, MG, FE PRO, PHOS, [id number], CBC #### [address] Lymphocytes (Bld) [#/Vol] 1.5 10*3/uL Normal 1.00-4.8 [facility] Comment on above: Order Comment: NOT F ASTING. JKW Performed By: #### V ITB1 #### [facility] , #### [id number], CMP, MG, FE PRO, PHOS, [id number], CBC #### [place] [address] [place] Lymphocytes/100 WBC (Bld) 24.6 % Normal . [facility] Comment on above: Order Comment: NOT F ASTING. JKW Performed By: #### V ITB1 #### [facility] , #### [id number], CMP, MG, FE PRO, PHOS, [id number], CBC #### [address] MCH (RBC) [Entitic mass] 31.8 pg Normal 24.7-34.3 [facility] Comment on above: Order Comment: NOT F ASTING. JKW Performed By: #### V ITB1 #### [facility] , #### [id number], CMP, MG, FE PRO, PHOS, [id number], CBC #### [address] MCV (RBC) [Entitic vol] 97.2 fL Normal 80-100 [facility] Comment on above: Order Comment: NOT F ASTING. JKW Performed By: #### V ITB1 #### [facility] , #### [id number], CMP, MG, FE PRO, PHOS, [id number], CBC #### [address] Mean Corpuscular HGB Conc 32.7 g/dL Normal 32.0-35.0 [facility] Comment on above: Order Comment: NOT F ASTING. JKW Performed By: #### V ITB1 #### [facility] , #### [id number], CMP, MG, FE PRO, PHOS, [id number], CBC #### [address] Monocytes (Bld) [#/Vol] 0.4 10*3/uL Normal 0.0-0.8 [facility] Comment on above: Order Comment: NOT F ASTING. JKW Performed By: #### V ITB1 #### [facility] , #### [id number], CMP, MG, FE PRO, PHOS, [id number], CBC #### [address] Monocytes/100 WBC (Bld) 7.3 % Normal . [facility] Comment on above: Order Comment: NOT F ASTING. JKW Performed By: #### V ITB1 #### [facility] , #### [id number], CMP, MG, FE PRO, PHOS, [id number], CBC #### [facility] [address] Neutrophils (Bld) [#/Vol] 3.8 10*3/uL Normal 1.8-7.7 [facility] Comment on above: Order Comment: NOT F ASTING. JKW Performed By: #### V ITB1 #### [facility] , #### [id number], CMP, MG, FE PRO, PHOS, [id number], CBC #### [address] Neutrophils/100 WBC (Bld) 64.8 % Normal . [facility] Comment on above: Order Comment: NOT F ASTING. JKW Performed By: #### V ITB1 #### [facility] , #### [id number], CMP, MG, FE PRO, PHOS, [id number], CBC #### [facility] [address] [place] [address] Nucleated RBC/100 WBC (Bld) [Ratio] 0.1 % Normal 0-0.5 [facility] Comment on above: Order Comment: NOT F ASTING. JKW Performed By: #### V ITB1 #### [facility] , #### [id number], CMP, MG, FE PRO, PHOS, [id number], CBC #### [facility] [address] [place] [address] [place] Platelet mean volume (Bld) [Entitic vol] 10.6 fL Normal 6.3-10.7 [facility] Comment on above: Order Comment: NOT F ASTING. JKW Performed By: #### V ITB1 #### [facility] , #### [id number], CMP, MG, FE PRO, PHOS, [id number], CBC #### [facility] [address] Platelets (Bld) [#/Vol] 237 10*3/uL Normal 150-450 [facility] Comment on above: Order Comment: NOT F ASTING. JKW Performed By: #### V ITB1 #### [facility] , #### [id number], CMP, MG, FE PRO, PHOS, [id number], CBC #### [address] RBC (Bld) [#/Vol] 4.02 10*6/uL Normal 3.60-5.00 [facility] Comment on above: Order Comment: NOT F ASTING. JKW Performed By: #### V ITB1 #### [facility] , #### [id number], CMP, MG, FE PRO, PHOS, [id number], CBC #### [address] WBC (Bld) [#/Vol] 5.9 10*3/uL Normal 4.5-11.0 [facility] Comment on above: Order Comment: NOT F ASTING. JKW Performed By: #### V ITB1 #### [facility] , #### [id number], CMP, MG, FE PRO, PHOS, [id number], CBC #### [address] Comprehensive Metabolic Pane nicole 06-10-2022 Albumin [Mass/Vol] 3.9 g/dL Normal 3.2-5.5 [facility] Comment on above: Order Comment: NOT F ASTING. JKW Performed By: #### V ITB1 #### [facility] , #### [id number], CMP, MG, FE PRO, PHOS, [id number], CBC #### [address] Albumin/Globulin [Mass ratio] 1.4 {ratio} Normal [facility] Comment on above: Order Comment: NOT F ASTING. JKW Performed By: #### V ITB1 #### [facility] , #### [id number], CMP, MG, FE PRO, PHOS, [id number], CBC #### [address] ALP [Catalytic activity/Vol] 43 U/L Normal 32-92 [facility] Comment on above: Order Comment: NOT F ASTING. JKW Performed By: #### V ITB1 #### [facility] , #### [id number], CMP, MG, FE PRO, PHOS, [id number], CBC #### [address] ALT [Catalytic activity/Vol] 12 U/L Normal 10-60 [facility] Comment on above: Order Comment: NOT F ASTING. JKW Performed By: #### V ITB1 #### [facility] , #### [id number], CMP, MG, FE PRO, PHOS, [id number], CBC #### [address] Anion gap [Moles/Vol] 11.0 mmol/L Normal 6.0-15.0 [facility] Comment on above: Order Comment: NOT F ASTING. JKW Performed By: #### V ITB1 #### [facility] , #### [id number], CMP, MG, FE PRO, PHOS, [id number], CBC #### [facility] [address] [place] [address] AST [Catalytic activity/Vol] 10 U/L Normal 10-42 [facility] Comment on above: Order Comment: NOT F ASTING. JKW Performed By: #### V ITB1 #### [facility] , #### [id number], CMP, MG, FE PRO, PHOS, [id number], CBC #### [facility] [address] Bilirubin [Mass/Vol] 0.7 mg/dL Normal 0.3-1.2 [facility] Comment on above: Order Comment: NOT F ASTING. JKW Performed By: #### V ITB1 #### [facility] , #### [id number], CMP, MG, FE PRO, PHOS, [id number], CBC #### [address] Calcium [Mass/Vol] 9.8 mg/dL Normal 8.2-10.2 [facility] Comment on above: Order Comment: NOT F ASTING. JKW Performed By: #### V ITB1 #### [facility] , #### [id number], CMP, MG, FE PRO, PHOS, [id number], CBC #### [address] Chloride [Moles/Vol] 104 mmol/L Normal 95-114 [facility] Comment on above: Order Comment: NOT F ASTING. JKW Performed By: #### V ITB1 #### [facility] , #### [id number], CMP, MG, FE PRO, PHOS, [id number], CBC #### [facility] [address] [place] [address] CO2 [Moles/Vol] 25.3 mmol/L Normal 22.0-30.0 [facility] Comment on above: Order Comment: NOT F ASTING. JKW Performed By: #### V ITB1 #### [facility] , #### [id number], CMP, MG, FE PRO, PHOS, [id number], CBC #### [facility] [address] [place] [address] [place] Creatinine [Mass/Vol] 0.56 mg/dL Normal 0.44-1.03 [facility] Comment on above: Order Comment: NOT F ASTING. JKW Performed By: #### V ITB1 #### [facility] , #### [id number], CMP, MG, FE PRO, PHOS, [id number], CBC #### [address] Estimated GFR ( Christiano > 60 [facility] Comment on above: Order Comment: NOT F ASTING. JKW Result Comment: GFR estimated reference range: According to KDOQI guidelines, <60 ml/min/1.73m2 is sufficient to diagnose a patient with chronic kidney disease. Performed By: #### V ITB1 #### [facility] , #### [id number], CMP, MG, FE PRO, PHOS, [id number], CBC #### [address] Estimated GFR (Non- Am > 60 [facility] Comment on above: Order Comment: NOT F ASTING. JKW Performed By: #### V ITB1 #### [facility] , #### [id number], CMP, MG, FE PRO, PHOS, [id number], CBC #### [address] Globulin (S) [Mass/Vol] 2.8 g/dL Normal [facility] Comment on above: Order Comment: NOT F ASTING. JKW Performed By: #### V ITB1 #### [facility] , #### [id number], CMP, MG, FE PRO, PHOS, [id number], CBC #### [address] Glucose [Mass/Vol] 95 mg/dL Normal 70-100 [facility] Comment on above: Order Comment: NOT F ASTING. JKW Result Comment: [place] om Glucose Reference Range is dependent on time and content of last meal. Glucose of more than 200 mg/dL in a nonstressed, ambulatory subject supports the diagnosis of Diabetes Mellitus. ADA recommended reference range Performed By: #### V ITB1 #### [facility] , #### [id number], CMP, MG, FE PRO, PHOS, [id number], CBC #### [facility] [address] Potassium [Moles/Vol] 4.3 mmol/L Normal 3.5-5.1 [facility] Comment on above: Order Comment: NOT F ASTING. JKW Performed By: #### V ITB1 #### [facility] , #### [id number], CMP, MG, FE PRO, PHOS, [id number], CBC #### [address] Protein [Mass/Vol] 6.7 g/dL Normal 6.1-7.9 [facility] Comment on above: Order Comment: NOT F ASTING. JKW Performed By: #### V ITB1 #### [facility] , #### [id number], CMP, MG, FE PRO, PHOS, [id number], CBC #### [address] Sodium [Moles/Vol] 136 mmol/L Normal 136-146 [facility] Comment on above: Order Comment: NOT F ASTING. JKW Performed By: #### V ITB1 #### [facility] , #### [id number], CMP, MG, FE PRO, PHOS, [id number], CBC #### [facility] [address] Urea nitrogen [Mass/Vol] 7 mg/dL Low 9-23 [facility] Comment on above: Order Comment: NOT F ASTING. JKW Performed By: #### V ITB1 #### [facility] , #### [id number], CMP, MG, FE PRO, PHOS, [id number], CBC #### [facility] [address] [place] [address] FE PROon 06-10-2021 % Iron Saturation 19.0 % Low 20-50 [facility] Comment on above: Order Comment: NOT F ASTING. JKW Performed By: #### P HOS, [id number], CMP, CBC, [id number], FE PRO, MG #### [facility] [address] [place] [address] [place] #### VITB1 #### [facility] , Ferritin [Mass/Vol] 46.7 ng/mL Normal 11-306.8 [facility] Comment on above: Order Comment: NOT F ASTING. JKW Performed By: #### P HOS, [id number], CMP, CBC, [id number], FE PRO, MG #### [facility] [address] [place] [address] [place] #### VITB1 #### [facility] , Iron [Mass/Vol] 50 ug/dL Normal 40-150 [facility] Comment on above: Order Comment: NOT F ASTING. JKW Performed By: #### P HOS, [id number], CMP, CBC, [id number], FE PRO, MG #### [facility] [address] [place] [address] [place] #### VITB1 #### [facility] , Total Iron Binding Capacity 260 ug/dL Normal 255-450 [facility] Comment on above: Order Comment: NOT F ASTING. JKW Performed By: #### P HOS, [id number], CMP, CBC, [id number], FE PRO, MG #### [facility] [address] [place] [address] [place] #### VITB1 #### [facility] , Transferrin [Mass/Vol] 186 mg/dL Normal 180-380 [facility] Comment on above: Order Comment: NOT F ASTING. JKW Performed By: #### P HOS, [id number], CMP, CBC, [id number], FE PRO, MG #### [facility] [address] [place] [address] [place] #### VITB1 #### [facility] , Magnesiumon 06-10-2022 Magnesium [Mass/Vol] 2.0 mg/dL Normal 1.6-2.6 [facility] Comment on above: Order Comment: NOT F ASTING. JKW Performed By: #### P HOS, [id number], CMP, CBC, [id number], FE PRO, MG #### [facility] [address] [place] [address] #### VITB1 #### [facility] , Phosphoruson 06-10-2022 Phosphate [Mass/Vol] 4.1 mg/dL Normal 2.5-4.6 [facility] Comment on above: Order Comment: NOT F ASTING. JKW Performed By: #### P HOS, [id number], CMP, CBC, [id number], FE PRO, MG #### [facility] [address] [place] [address] #### VITB1 #### [facility] , Vit. B12/Folate Profileon Cobalamin (Vitamin B12) [Mass/Vol] 575 pg/mL Normal 180-914 [facility] Comment on above: Order Comment: NOT F ASTING. JKW Performed By: #### P HOS, [id number], CMP, CBC, [id number], FE PRO, MG #### [facility] [address] [place] [address] [place] #### VITB1 #### [facility] , Folate 14.3 ng/mL Normal >5.9 [facility] Comment on above: Order Comment: NOT F ASTING. JKW Result Comment: Tara te reference range: >5.9 ng/ml The WHO technical consultation on folate and vitamin b12 deficiencies has determined that folate concentrations less than 4 ng/ml are considered deficient. Performed By: #### P HOS, [id number], CMP, CBC, [id number], FE PRO, MG #### [facility] [address] [place] [address] #### VITB1 #### [facility] , Vitamin B1 (Thiamine) Bloodo n 06-10-2022 Vitamin B1 (Thiamine) Blood 143.0 Normal 66.5-200.0 [facility] Comment on above: Order Comment: NOT F ASTING. JKW Result Comment: This test was developed and its performance characteristics determined by [facility]. It has not been cleared or approved by the Food and Drug Administration. Performed at: [address] [id number] Tanning Consultant: Chary Soler MD, Phone: [phone] PERFORMED BY: [place] [address] PATHOLOGIST MUSIC MINISTRIES DIRECTOR AMANDA CALLE M.D. Performed By: #### P HOS, [id number], CMP, CBC, [id number], FE PRO, MG #### [facility] [address] [place] [address] #### VITB1 #### [facility] , Vitamin D 25 Hydroxy Totalon 06-10-2022 Vitamin D 25 Hydroxy Total 27.8 ng/mL Low 30-100 [facility] Comment on above: Order Comment: NOT F ASTING. JKW Result Comment: JONAH MIN D STATUS 25(OH)VITAMIN D RANGE (ng/mL) Deficient <20 Insufficient 20 to <30 Sufficient 30 to 100 Reference: oKfi MF,Mauricio NC, Marily-Gaston CUELLAR, et al. Evaluation,treatment, and prevention of vitamin D deficiency; an Endocrine Society clinical practice guideline. JCEM. 2010; 96(7):1911-30. PERFORMED BY: [place] [address] PATHOLOGIST MUSIC MINISTRIES DIRECTOR AMANDA CALLE M.D. Performed By: #### P HOS, [id number], CMP, CBC, [id number], FE PRO, MG #### [facility] [address] #### VITB1 #### [facility] , HGB A1Con 01-15-2022 Average glucose Estimated from glycated hemoglobin (Bld) [Mass/Vol] 128 mg/dL Normal [facility] Comment on above: Order Comment: Speci [facility] Type: BLOOD SPECIMEN Ordering Facility: [facility] Address: [address] [place] [address] Result Comment: eAG: (Estimated average glucose) is a calculated value from HgbA1c and is telesales representative of the average blood glucose level in the last 2-3 month period. Performed By: #### H BA1C #### [facility] CLIA [id number] [address] [place] [address] STATES OF [facility] HbA1c (Bld) [Mass fraction] 6.1 % High 4.3-5.6 [facility] Comment on above: Order Comment: [facility] Type: BLOOD SPECIMEN Ordering Facility: [facility] Address: [address] [place] [address] Result Comment: Amer ican Diabetes Association guidelines indicate that patients with HgbA1c in the range 5.7-6.4% are at increased risk for development of diabetes, and intervention by lifestyle modification may be beneficial. HgbA1c greater or equal to 6.5% is considered diagnostic of diabetes. Performed By: #### H BA1C #### [facility] CLIA [id number] [address] [place] [address] STATES OF [facility] POTASSIUM BLDon 01-15-2022 Potassium [Moles/Vol] 4.9 mmol/L Normal 3.7-5.1 [facility] Comment on above: Order Comment: [facility] Type: BLOOD SPECIMEN Ordering Facility: [facility] Address: [address] [place] [address] Performed By: #### K 1 #### [facility] CLIA [id number] [facility] [address] [place] Potassium [Moles/Vol] 4.9 mmol/L 3.7 - 5.1 mmol/L [facility] Vital Signs Date Time Vital Sign Value Performing Clinician Facility 04-10-2025 15:14-0400 Body mass index (BMI) [Ratio] 37.22 kg/m2 Roscoe Joe DO Work Phone: [facility] 04-10-2025 15:14-0400 Body weight 95.31 kg Roscoe Joe DO Work Phone: [facility] 04-10-2025 15:14-0400 Diastolic blood pressure 70 mm[Hg] Roscoe Joe DO Work Phone: [facility] 04-10-2025 15:14-0400 Systolic blood pressure 120 mm[Hg] Roscoe Joe DO Work Phone: [facility] 03-27-2025 14:01-0400 Body mass index (BMI) [Ratio] 36.28 kg/m2 Roscoe Joe DO Work Phone: [facility] 03-27-2025 14:01-0400 Body weight 92.9 kg Roscoe Joe DO Work Phone: [facility] 03-27-2025 14:01-0400 Diastolic blood pressure 72 mm[Hg] Roscoe Joe DO Work Phone: [facility] 03-27-2025 14:01-0400 Systolic blood pressure 116 mm[Hg] Roscoe Joe DO Work Phone: [facility] 03-13-2025 15:41-0400 Body mass index (BMI) [Ratio] 36.46 kg/m2 Rosy KRUGER Work Phone: [facility] 03-13-2025 15:41-0400 Body weight 93.35 kg Rosy KRUGER Work Phone: [facility] 03-13-2025 15:41-0400 Diastolic blood pressure 70 mm[Hg] Rosy KRUGER Work Phone: [facility] 03-13-2025 15:41-0400 Systolic blood pressure 110 mm[Hg] Rosy KRUGER Work Phone: [facility] 03-12-2025 13:35-0400 Body height 160 cm Daisha Lavoy PA-C Work Phone: [facility] 03-12-2025 13:35-0400 Body mass index (BMI) [Ratio] 36.38 kg/m2 Daisha Lavoy PA-C Work Phone: [facility] 03-12-2025 13:35-0400 Body weight 93.17 kg Daisha Lavoy PA-C Work Phone: [facility] 03-12-2025 13:35-0400 Diastolic blood pressure 57 mm[Hg] Daisha Lavoy PA-C Work Phone: [facility] 03-12-2025 13:35-0400 Heart rate 76 /min Daisha Lavoy PA-C Work Phone: [facility] 03-12-2025 13:35-0400 Systolic blood pressure 99 mm[Hg] Daisha Lavoy PA-C Work Phone: [facility] 02-27-2025 14:00-0400 Body mass index (BMI) [Ratio] 36.1 kg/m2 Roscoe Joe DO Work Phone: [facility] 02-27-2025 14:00-0400 Body weight 92.44 kg Roscoe Joe DO Work Phone: [facility] 02-27-2025 14:00-0400 Diastolic blood pressure 60 mm[Hg] Roscoe Joe DO Work Phone: [facility] 02-27-2025 14:00-0400 Systolic blood pressure 110 mm[Hg] Roscoe Joe DO Work Phone: [facility] 02-14-2025 15:17-0400 Body mass index (BMI) [Ratio] 36.21 kg/m2 Hien Giles RN Work Phone: [facility] 02-14-2025 15:17-0400 Body weight 92.72 kg Hien Giles RN Work Phone: [facility] 02-11-2025 11:36-0400 Body mass index (BMI) [Ratio] 35.87 kg/m2 Rosy Oralia PA Work Phone: [facility] 02-11-2025 11:36-0400 Body weight 91.85 kg Rosy Oralia PA Work Phone: [facility] 02-11-2025 11:36-0400 Diastolic blood pressure 60 mm[Hg] Rosy Oralia PA Work Phone: [facility] 02-11-2025 11:36-0400 Systolic blood pressure 110 mm[Hg] Rosy Barton PA Work Phone: [facility] 02-07-2025 10:43-0400 Body height 160 cm Scanning External [facility] 01-10-2025 10:33-0400 Body mass index (BMI) [Ratio] 34.92 kg/m2 Roscoe Joe DO Work Phone: [facility] 01-10-2025 10:33-0400 Body weight 89.41 kg Roscoe Joe DO Work Phone: [facility] 01-10-2025 10:33-0400 Diastolic blood pressure 68 mm[Hg] Roscoe Joe DO Work Phone: [facility] 01-10-2025 10:33-0400 Systolic blood pressure 110 mm[Hg] Roscoe Joe DO Work Phone: [facility] 12-10-2024 11:23-0400 Body mass index (BMI) [Ratio] 33.66 kg/m2 Rosy Barton PA Work Phone: [facility] 12-10-2024 11:23-0400 Body weight 86.18 kg Rosy Oralia PA Work Phone: [facility] 12-10-2024 11:23-0400 Diastolic blood pressure 70 mm[Hg] Rosy Barton PA Work Phone: [facility] 12-10-2024 11:23-0400 Systolic blood pressure 106 mm[Hg] Rosy Barton PA Work Phone: [facility] 11-08-2024 11:04-0400 Body mass index (BMI) [Ratio] 32.24 kg/m2 Roscoe Joe DO Work Phone: [facility] 11-08-2024 11:04-0400 Body weight 82.56 kg Roscoe Joe DO Work Phone: [facility] 11-08-2024 11:04-0400 Diastolic blood pressure 60 mm[Hg] Roscoe Joe DO Work Phone: [facility] 11-08-2024 11:04-0400 Systolic blood pressure 100 mm[Hg] Roscoe Joe DO Work Phone: [facility] 10-18-2024 13:54-0500 Body mass index (BMI) [Ratio] 31.38 kg/m2 Nom Nurse [facility] 10-18-2024 13:54-0500 Body weight 80.34 kg [facility] Nurse [facility] 08-02-2024 15:58-0500 Body temperature 96.8 [degF] Edu Alvarez TELEMETRY REGISTERED NURSE Work Phone: [facility] 08-02-2024 15:58-0500 Diastolic blood pressure 66 mm[Hg] Educhristiano Alvarez TELEMETRY REGISTERED NURSE Work Phone: [facility] 08-02-2024 15:58-0500 Heart rate 88 /min Edu Alvarez TELEMETRY REGISTERED NURSE Work Phone: [facility] 08-02-2024 15:58-0500 SaO2% (BldA) [Mass fraction] 98 % Edu Alvarez TELEMETRY REGISTERED NURSE Work Phone: [facility] 08-02-2024 15:58-0500 Systolic blood pressure 106 mm[Hg] Edu Alvarez TELEMETRY REGISTERED NURSE Work Phone: [facility] 07-25-2024 14:19-0500 Body height 160 cm Sina Jain DO Work Phone: [facility] 07-25-2024 14:19-0500 Body mass index (BMI) [Ratio] 30.82 kg/m2 Sina Jain DO Work Phone: [facility] 07-25-2024 14:19-0500 Body weight 78.93 kg Sina Jain DO Work Phone: [facility] 07-25-2024 14:19-0500 Diastolic blood pressure 68 mm[Hg] Sina Gargett DO Work Phone: [facility] 07-25-2024 14:19-0500 Heart rate 68 /min Sina Jain DO Work Phone: [facility] 07-25-2024 14:19-0500 Respiratory rate 12 /min Sinavincent Jain DO Work Phone: [facility] 07-25-2024 14:19-0500 SaO2% (BldA) [Mass fraction] 99 % Sinavincent Jain DO Work Phone: [facility] 07-25-2024 14:19-0500 Systolic blood pressure 128 mm[Hg] Sina Jain DO Work Phone: [facility] 06-29-2024 12:36-0500 Body mass index (BMI) [Ratio] 29.58 kg/m2 Berenice Zepeda CHARTER BOAT CAPTAIN.ASSISTANT TRACK COACH Work Phone: [facility] 06-29-2024 12:36-0500 Body weight 75.75 kg Berenice Zepeda CHARTER BOAT CAPTAIN.ASSISTANT TRACK COACH Work Phone: [facility] 06-29-2024 12:36-0500 Diastolic blood pressure 68 mm[Hg] Berenice Webbtter CHARTER BOAT CAPTAIN.ASSISTANT TRACK COACH Work Phone: [facility] 06-29-2024 12:36-0500 Heart rate 65 /min Berenice Zepeda CHARTER BOAT CAPTAIN.ASSISTANT TRACK COACH Work Phone: [facility] 06-29-2024 12:36-0500 Systolic blood pressure 101 mm[Hg] Berenice Evelyn CHARTER BOAT CAPTAIN.ASSISTANT TRACK COACH Work Phone: [facility] 09-23-2023 14:27-0500 Body height 160 cm Berenice Evelyn CHARTER BOAT CAPTAIN.ASSISTANT TRACK COACH Work Phone: [facility] 09-23-2023 14:27-0500 Body weight 76.2 kg Berenice Evelyn CHARTER BOAT CAPTAIN.ASSISTANT TRACK COACH Work Phone: [facility] 07-21-2023 16:05-0500 Body height 161.2 cm Berenice Evelyn CHARTER BOAT CAPTAIN.ASSISTANT TRACK COACH Work Phone: [facility] 07-21-2023 16:05-0500 Body weight 80.06 kg Berenice Evelyn CHARTER BOAT CAPTAIN.ASSISTANT TRACK COACH Work Phone: [facility] 07-21-2023 16:05-0500 Diastolic blood pressure 74 mm[Hg] Berenice Evelyn CHARTER BOAT CAPTAIN.ASSISTANT TRACK COACH Work Phone: [facility] 07-21-2023 16:05-0500 Heart rate 60 /min Berenice Evelyn CHARTER BOAT CAPTAIN.ASSISTANT TRACK COACH Work Phone: [facility] 07-21-2023 16:05-0500 Systolic blood pressure 112 mm[Hg] Berenice Evelyn CHARTER BOAT CAPTAIN.ASSISTANT TRACK COACH Work Phone: [facility] 01-15-2022 11:50-0400 Body height 162.6 cm Dasha Lujan MD Work Phone: [facility] 01-15-2022 11:50-0400 Body temperature 98.01 [degF] Dasha Lujan MD Work Phone: [facility] 01-15-2022 11:50-0400 Body weight 104.33 kg Dasha Lujan MD Work Phone: [facility] 01-15-2022 11:50-0400 Diastolic blood pressure 86 mm[Hg] Dasha Lujan MD Work Phone: [facility] 01-15-2022 11:50-0400 Heart rate 65 /min Dasha Lujan MD Work Phone: [facility] 01-15-2022 11:50-0400 Respiratory rate 16 /min Dasha Lujan MD Work Phone: [facility] 01-15-2022 11:50-0400 Systolic blood pressure 124 mm[Hg] Dasha Lujan MD Work Phone: [facility] Encounters Encounter Date Encounter Type Care Provider Facility Start: 04-15-2025 End: 04-15-2025 Clinisync Result Encounter Rosy KRUGER Work Phone: [facility] Unsolicited Start: 04-15-2025 End: 04-15-2025 Clinisync Result Encounter Rosy KRUGRE Work Phone: [facility] External [facility] Unsolicited Start: 04-15-2025 End: 04-15-2025 Telephone encounter Beulah Miller RN [facility] at [facility] Start: 04-10-2025 End: 04-10-2025 flow sheet Roscoe Joe DO Work Phone: [facility] Comment on above: 34 weeks gestation o f ([facility]); Third trimester ([facility]); H/O gastric sleeve; Insulin controlled gestational diabetes mellitus (GDM) during , antepartum ([facility]) Start: 04-10-2025 End: 04-10-2025 ambulatory ROSCOE JOE Not Available Start: 04-10-2025 End: 04-10-2025 Bamboo flowsheet Roscoe Joe DO Work Phone: [facility] Start: 04-10-2025 End: 04-10-2025 Bamboo flowsheet Roscoe Joe DO Work Phone: [facility] Start: 04-09-2025 End: 04-09-2025 Telephone encounter Devika MALDONADO Work Phone: [facility]- [facility] at [facility] Start: 04-08-2025 End: 04-08-2025 Clinisync Result [...] encounter Blanquita Toney RN [facility]- Medicine at [facility] Start: 04-01-2025 End: 04-01-[address] [facility] Start: 04-01-2025 End: 04-01-2025 Office outpatient visit 25 minutes Daisha Emelia Briseno PA-C Work Phone: [facility] Comment on above: Gestational diabetes requiring insulin (Primary Dx) Start: 03-27-2025 End: 03-27-2025 Bamboo flowsheet Roscoe Joe DO Work Phone: [facility] Start: 03-27-2025 End: 03-27-2025 Bamboo flowsheet Roscoe Joe DO Work Phone: [facility] Start: 03-27-2025 End: 03-27-2025 flow sheet Roscoe Joe DO Work Phone: [facility] Comment on above: Third trimester preg piper ([facility]); H/O gastric sleeve; Gestational diabetes mellitus (GDM), antepartum, gestational diabetes method of control unspecified ([facility]); 32 weeks gestation of ([facility]) Start: 03-27-2025 End: 03-27-2025 ambulatory ROSCOE JOE Not Available Start: 03-26-2025 End: 03-26-2025 Telephone encounter Devika MALDONADO Work Phone: [facility]- [facility] at [facility] Start: 03-19-2025 End: 03-19-2025 Telephone encounter Fatimah MALDONADO M[facility]- Medicine at [facility] Start: 03-13-2025 End: 03-13-2025 flow sheet Rosy KRUGER Work Phone: [facility] Comment on above: 30 weeks gestation o f ([facility]); Third trimester ([facility]); H/O gastric sleeve; Gestational diabetes mellitus (GDM), antepartum, gestational diabetes method of control unspecified ([facility]) Start: 03-13-2025 End: 03-13-2025 ambulatory ROSY BARTON Not Available Start: 03-13-2025 End: 03-13-2025 Bamboo flowsheet Rosy KRUGER Work Phone: [facility] Start: 03-13-2025 End: 03-13-2025 Bamboo flowsheet Rosy KRUGER Work Phone: [facility] Start: 03-12-2025 End: 03-[facility] [facility] Start: 03-12-2025 End: 03-12-2025 Office outpatient visit 25 minutes Daisha Briseno PA-C Work Phone: [facility] at [facility] Comment on above: Gestational diabetes mellitus (GDM) in second trimester, gestational diabetes method of control unspecified (Primary Dx); Gestational diabetes requiring insulin Start: 03-05-2025 End: 03-05-2025 Telephone encounter Devika MALDONADO Work Phone: [facility] at [facility] Start: 02-27-2025 End: 02-27-2025 flow sheet Roscoe Diaz DO Work Phone: [facility] Comment on above: 28 weeks gestation o f ([facility]); Third trimester ([facility]); H/O gastric sleeve; Gestational diabetes mellitus (GDM), antepartum, gestational diabetes method of control unspecified [facility] Start: 02-27-2025 End: 02-27-2025 ambulatory ROSCOE JOE Not Available Start: 02-26-2025 End: 02-26-2025 Telephone encounter Devika MALDONADO Work Phone: [facility]- [facility] at [facility] Start: 02-14-2025 End: 02-14-2025 ambulatory Hien Giles RN Work Phone: [facility]- [facility] at [facility] Comment on above: Gestational diabetes mellitus (GDM) in second trimester, gestational diabetes method of control unspecified (Primary Dx) Start: 02-11-2025 End: 02-11-2025 flow sheet Rosy KRUGER Work Phone: [facility] Comment on above: Second trimester pre gnancy ([facility]); 26 weeks gestation of ([facility]); H/O gastric sleeve Start: 02-11-2025 End: 02-11-2025 ambulatory ROSY BARTON Not Available Start: 02-07-2025 End: 02-07-2025 Chart abstracting Scanning Provider External [facility]- [facility] at [facility] Start: 02-01-2025 End: 02-01-2025 Clinisync Result [...] Start: 12-10-2024 End: 12-11-2024 External Result Encounter oRsy KRUGER Work Phone: [facility] External Department Unsolicited Start: 12-10-2024 End: 12-10-2024 Patient encounter procedure Rosy KRUGER Work Phone: [facility] Start: 12-10-2024 End: 12-10-2024 Periodic preventive med est patient 18-39 yrs Rosy KRUGER Work Phone: [facility] Comment on above: Well woman exam with routine gynecological exam; Second trimester ; 17 weeks gestation of ; Exposure to STD; Need for maternal serum alpha-protein (MSAFP) screening; Screening, , for anatomic survey Start: 12-10-2024 End: 12-10-2024 ambulatory ROSY BARTON Not Available Start: 11-08-2024 End: 11-08-2024 Bamboo [...] 9w4d Start: 10-18-2024 End: 10-18-2024 ambulatory ROSCOE WELCHO Not Available Start: 08-02-2024 End: 08-02-2024 ambulatory EDU ALVAREZ Not Available Start: 08-02-2024 End: 08-02-2024 Office outpatient visit 25 minutes Edu Alvarez TELEMETRY REGISTERED NURSE Work Phone: [facility] Comment on above: Acute cough (Primary Dx); Chest congestion; Bronchitis Start: 07-25-2024 End: 07-25-2024 ambulatory SINA JAIN Not Available Start: 07-25-2024 End: 07-25-2024 Office outpatient new 45 minutes Sina Pascual DO Work Phone: [facility] Comment on above: Rectal bleeding (Cony mike Dx) Start: 07-25-2024 End: 07-25-2024 Bamboo flowsheet Sina Pascual DO Work Phone: [facility] Start: 07-25-2024 End: 07-25-2024 Bamboo flowsheet Sina Pascual DO Work Phone: [facility] Start: 06-29-2024 End: 06-29-2024 ambulatory DASHA LUJAN Facility:[facility] Start: 06-29-2024 End: 06-29-2024 Patient encounter procedure Berenice Zepeda APRN.ASSISTANT TRACK COACH Work Phone: Internal Medicine Comment on above: Encounter for weight management (Primary Dx); Overweight Start: 03-06-2024 ambulatory Berenice wheatley CHARTER BOAT CAPTAIN.ASSISTANT TRACK COACH Work Phone: Internal Medicine Start: 03-06-2024 Patient encounter procedure Berenice Webbradha WEST.ASSISTANT TRACK COACH Work Phone: Internal Medicine Comment on above: Prescription Start: 09-23-2023 End: 09-23-2023 ambulatory Berenice Zepeda CHARTER BOAT CAPTAIN.ASSISTANT TRACK COACH Work Phone: Internal Medicine Comment on above: Encounter for weight management; Overweight (BMI 25.0-29.9) Start: 09-23-2023 End: 09-23-2023 Telemedicine consultation with patient Berenice Zepeda APRN.ASSISTANT TRACK COACH Work Phone: [facility] Start: 08-23-2023 End: 08-23-2023 ambulatory BERENICE ZEPEDA Facility:[facility] Start: 07-26-2023 End: 07-26-2023 ambulatory DASHA LUJAN Facility:[facility] Start: 07-21-2023 End: 07-21-2023 ambulatory BERENICE ZEPEDA Facility:[facility] Start: 07-21-2023 End: 07-21-2023 Patient encounter procedure Berenice Webbradha WEST.ASSISTANT TRACK COACH Work Phone: Internal Medicine Comment on above: Routine adult health maintenance (Primary Dx); IFG (impaired fasting glucose); Encounter for weight management; Class 1 obesity due to excess calories with body mass index (BMI) of 30.0 to 30.9 in adult, unspecified whether serious comorbidity present; Encounter for immunization; Immunity status testing Start: 07-21-2023 End: 07-21-2023 Patient encounter status Berenice Webbradha DE LOS SANTOSASSISTANT TRACK COACH Work Phone: [facility] Work Phone: Start: 06-29-2023 ambulatory Dasha Lujan MD Work Phone: Internal Medicine Comment on above: Prescription Start: 10-11-2022 End: 10-11-2022 ambulatory Reena Breaux Facility:[facility] Start: 10-11-2022 End: 10-11-2022 ambulatory MD Dasha Lujan Work Phone: [facility] Work Phone: Start: 10-11-2022 End: 10-11-2022 Patient encounter procedure MD Dasha Lujan Work Phone: [facility] Start: 06-10-2022 End: 06-10-2022 ambulatory Reena Breaux Facility:[facility] Start: 01-15-2022 End: 01-15-2022 Office outpatient new [...] Date Procedure Procedure Detail Performing Clinician Start: 04-15-2025 US OB BPP W NON-STRESS Rosy KRUGER Work Phone: Start: 04-10-2025 Urnls dip stick/tabl et rgnt non-auto w/o micrscp Roscoe Joe DO Work Phone: Start: 04-08-2025 US OB BPP W NON-STRESS Roys KRUGER Work Phone: Start: 04-01-2025 US OB [...] Start: 01-02-2025 US OB CERVICAL LENGTH C triciay Joe DO Work Phone: Start: 12-31-2024 Alpha-fetoprotein serum Not In System Ref Prov Start: 12-10-2024 RECURRENT VAGINITIS (HTRX) Rosy KRUGER Work Phone: Start: 12-10-2024 Urnls dip stick/tabl et rgnt non-auto w/o micrscp Rosy KRUGER Work Phone: Start: 12-10-2024 IGP,APTIMA HPV,AGE GDLN Rosy KRUGER Work Phone: Start: 12-10-2024 Microscopic observat ion [Identifier] in Cervix by Cyto stain Roscoe Welcho DO Work Phone: Start: 11-08-2024 Urnls dip [...] Td Vaccines (8 - Td or Tdap) [facility] Start: 07-21-2033 Urine microalbumin profile [facility] Start: 12-11-2027 Screening for malign ant neoplasm of cervix [facility] Start: 03-12-2026 Adult BMI Screening Adult BMI Screen ing [facility] Start: 03-12-2026 Tobacco Screening Tobacco Screening [facility] Start: 02-14-2026 Adult BMI Screening Adult BMI Screen ing [facility] Start: 04-24-2025 End: 04-24-2025 Patient encounter procedure 04/24/2025 11:30 AM EDT Routine [facility] [address] [place] [id number] Roscoe Diaz, DO [address] [place] [address] [facility] Start: 04-22-2025 Influenza vaccination [facility] Start: 04-10-2025 End: 04-10-2025 Patient encounter procedure [facility] Comment on above: Arrived Start: 04-01-2025 End: 04-01-2025 Telemedicine consultation with patient 04/01/2025 10:00 AM EDT Telemedicine Maternal- Medicine at [facility] [address] [place] [phone] Daisha Briseno PA-C [address] [address] Maternal- Medicine at [facility] Start: 03-27-2025 End: 03-27-2025 Patient encounter procedure [facility] Comment on above: Arrived Start: 03-13-2025 End: 03-13-2025 Patient encounter procedure [facility] Comment on above: Arrived Start: 02-27-2025 End: 02-27-2025 Professional / ancillary services management 02/27/2025 1:00 PM EDT Ancillary Procedure [facility] [address] [place] [phone] [facility] Start: 02-14-2025 End: 02-14-2025 ambulatory 02/14/2025 1:30 PM EDT Support Visit Maternal- Medicine at [facility] [address] [place] [phone] Hien Giles, RN [address] [address] Devika Pope, JOEL [address] [place] [address] Maternal- Medicine at [facility] Start: 02-11-2025 End: 06-13-2025 US for US OB follow up transabdominal approach Imaging Routine H/O gastric sleeve Expected: 02/11/2025, Expires: 06/13/2025 [facility] Work Phone: Comment on above: Expected: 02/11/2025 , Expires: 06/13/2025 Start: 02-11-2025 End: 02-11-2025 Patient encounter procedure 02/11/2025 11:30 AM EDT Routine [facility] [address] [place] [address] Rosy Barton PA [address] [place] [address] [facility] Start: 01-30-2025 End: 01-30-2025 Professional / ancillary services management 01/30/2025 1:00 PM EDT Ancillary Procedure [facility] [address] [place] [address] [facility] Start: 01-15-2025 Pap Testing Pap Testing [facility] Start: 01-15-2025 Screening for malign ant neoplasm of cervix Pap Testing [facility] Start: 01-10-2025 End: 01-10-2026 CBC panel - Blood by Automated count CBC Lab Routine Diabetes mellitus screening Expected: 01/10/2025 (Approximate), Expires: 01/10/2026 [facility] Work Phone: Comment on above: Expected: 01/10/2025 (Approximate), Expires: 01/10/2026 Start: 01-10-2025 End: 01-10-2026 Measurement of glucose 1 hour after glucose challenge for glucose tolerance test Glucose tolerance, 1 hour Lab Routine Diabetes mellitus screening Expected: 01/10/2025 (Approximate), Expires: 01/10/2026 [facility] Comment on above: Expected: 01/10/2025 (Approximate), Expires: 01/10/2026 Start: 01-10-2025 End: 01-10-2025 Patient encounter procedure 01/10/2025 10:10 AM EDT Routine [facility] [address] [place] [place] [phone] Roscoe Diaz, DO [address] [place] [address] [facility] Start: 12-10-2024 End: 01-09-2025 Alpha fetoprotein, maternal Alpha fetoprotein, maternal Lab Routine Need for maternal serum alpha-protein (MSAFP) screening Expected: 12/10/2024 (Approximate), Expires: 01/09/2025 [facility] Comment on above: Expected: 12/10/2024 (Approximate), Expires: 01/09/2025 Start: 12-10-2024 End: 03-11-2025 US for US OB 14+ weeks anatomy scan Imaging Routine Screening, , for anatomic survey Expected: 12/10/2024, Expires: 03/11/2025 [facility] Comment on above: Expected: 12/10/2024 , Expires: 03/11/2025 Start: 12-10-2024 End: 12-10-2024 Patient encounter procedure 12/10/2024 11:00 AM EDT Routine [facility] [address] [place] [phone] Rosy Barton PA [address] [place] [address] Arrived [facility] Comment on above: Arrived Start: 11-08-2024 End: 11-08-2024 Patient encounter procedure 11/08/2024 10:50 AM EDT Routine [facility] [address] [place] [phone] Roscoe Diaz, DO [address] [place] [address] [facility] Start: 10-18-2024 End: 10-18-2025 ABO/Rh ABO/Rh Lab Routine Missed menses , unspecified gestational age Expected: 10/18/2024 (Approximate), Expires: 10/18/2025 [facility] Comment on above: Expected: 10/18/2024 (Approximate), Expires: 10/18/2025 Start: 10-18-2024 End: 10-18-2025 Blood type and Indirect antibody screen panel - Blood Type and screen Lab Routine Missed menses , unspecified gestational age Expected: 10/18/2024 (Approximate), Expires: 10/18/2025 [facility] Comment on above: Expected: 10/18/2024 (Approximate), Expires: 10/18/2025 Start: 10-18-2024 End: 10-18-2025 Drugs of abuse panel - Urine by Screen method Rapid drug screen, urine Lab Routine , unspecified gestational age Encounter for supervision of normal first in first trimester Expected: 10/18/2024 (Approximate), Expires: 10/18/2025 [facility] Comment on above: Expected: 10/18/2024 (Approximate), Expires: 10/18/2025 Start: 10-18-2024 End: 10-18-2025 US Pelvis transvaginal [facility] Work Phone: Comment on above: Expected: 10/18/2024 , Expires: 10/18/2025 Start: 07-21-2024 Covid-19 Vaccine (#1) Covid-19 Vacci ne (#1) [facility] Comment on above: Postponed from 04/08 (Declined at this time) Start: 07-21-2024 Covid-19 Vaccine ( season) Covid-19 Vaccine () [facility] Comment on above: Postponed from 04/22 (Declined at this time) Start: 04-22-2024 Covid-19 Vaccine ( season) Covid-19 Vaccine ( season) [facility] Start: 04-22-2024 Influenza vaccination Influenza Vacc ine (#1) [facility] Start: 02-19-2024 Influenza vaccination Influenza Vacc ine (#1) [facility] Comment on above: Postponed from 04/22 (Declined at this time) Start: 08-22-2023 Behavioral Health Screening Behavioral Health Screening [facility] Start: 08-22-2023 Depression Assessment Depression Ass essment [facility] Start: 07-21-2023 End: 10-20-2023 CBC W Auto Differential panel - Blood CBC + DIFF Lab Routine Routine adult health maintenance Expected: 07/21/2023, Expires: 10/20/2023 [facility] Work Phone: Comment on above: Expected: 07/21/2023 , Expires: 10/20/2023 Start: 07-21-2023 End: 10-20-2023 Comprehensive metabolic 2000 panel - Serum or Plasma COMP METABOLIC PANEL Lab Routine Routine adult health maintenance Expected: 07/21/2023, Expires: 10/20/2023 [facility] Work Phone: Comment on above: Expected: 07/21/2023 , Expires: 10/20/2023 Start: 07-21-2023 End: 10-20-2023 Hemoglobin A1c in Blood HGB A1C Lab Routine IFG (impaired fasting glucose) Routine adult health maintenance Expected: 07/21/2023, Expires: 10/20/2023 [facility] Work Phone: Comment on above: Expected: 07/21/2023 , Expires: 10/20/2023 Start: 07-21-2023 End: 10-20-2023 Hepatitis B virus surface Ab [Presence] in Serum HEP B SURF AB Lab Routine Immunity status testing Expected: 07/21/2023, Expires: 10/20/2023 [facility] Work Phone: Comment on above: Expected: 07/21/2023 , Expires: 10/20/2023 Start: 07-21-2023 End: 10-20-2023 Lipid 1996 panel - Serum or Plasma LIPID PANEL BASIC Lab Routine Routine adult health maintenance Expected: 07/21/2023, Expires: 10/20/2023 [facility] Work Phone: Comment on above: Expected: 07/21/2023 , Expires: 10/20/2023 Start: 07-06-2023 Hepatitis B Vaccine (1 of 3 - 3-dose series) Hepatitis B Vaccine (1 of 3 - 3-dose series) [facility] Comment on above: Postponed from 10/09 (Declined at this time) Start: 04-22-2023 Influenza vaccination Influenza Vacc ine (#1) [facility] Start: 01-15-2023 Adult depression screening assessment DEPRESSION SCREENING [facility] Start: 01-15-2023 COVID-19 VACCINE (#1) COVID-19 VACCI NE (#1) [facility] Comment on above: Postponed from 10/09 (Declined at this time) Start: 01-15-2023 PAP TESTING PAP TESTING [facility] Start: 01-15-2023 Screening for malign ant neoplasm of cervix Cervical Cancer Screening [facility] Start: 2022 HPV Testing HPV Testing [facility] Start: 2022 Screening for malign ant neoplasm of cervix [facility] Start: 08-22-2022 Depression Assessment Depression Ass essment [facility] Start: 04-22-2022 Influenza vaccination INFLUENZA (Sea son Ended) [facility] Start: 01-15-2022 End: 03-17-2022 Hemoglobin A1c/Hemoglobin.total in Blood [facility] Work Phone: Comment on above: Expected: 01/15/2022 , Expires: 03/17/2022 Start: 2013 Screening for malign ant neoplasm of cervix Pap Smear [facility] Start: 2011 DTaP,Tdap and Td Vaccines (1 - Tdap) DTaP,Tdap and Td Vaccines (1 - Tdap) [facility] Start: 2011 Urine microalbumin profile [facility] Start: 2010 Adult BMI Follow Up Plan Adult BMI Follow Up Plan [facility] Start: 2010 Adult BMI Screening Adult BMI Screen ing [facility] Start: 2010 Anxiety Screening Anxiety Screening [facility] Start: 2010 Depression Screening Depression Scre ening [facility] Start: 2004 Depression Screening Depression Scre ening [facility] Start: 2004 Tobacco Screening Tobacco Screening [facility] Start: 04-08-1993 Covid-19 Vaccine (#1) Covid-19 Vacci ne (#1) [facility] Start: 1992 Hepatitis B Vaccine (1 of 3 - 3-dose series) Hepatitis B Vaccine (1 of 3 - 3-dose series) [facility] Bacteria identified in Urine by Culture Urine culture Microbiology Routine Missed menses Ordered: 10/18/2024 [facility] Comment on above: Ordered: 10/18/2024 CBC W Auto Different ial panel - Blood CBC and differential Lab Routine Missed menses , unspecified gestational age Ordered: 10/18/2024 [facility] Comment on above: Ordered: 10/18/2024 CHLAMYDIA TRACHOMATI S (GENITO/STI) CHLAMYDIA TRACHOMATIS (GENITO/STI) Lab Routine Exposure to STD Ordered: 12/10/2024 [facility] Comment on above: Ordered: 12/10/2024 Cytology Cervical or vaginal smear or scraping study Pap Smear Pathology and Cytology Routine Well woman exam with routine gynecological exam Ordered: 12/10/2024 [facility] Comment on above: Ordered: 12/10/2024 Hemoglobin A1c/Hemoglobin.total in Blood Hemoglobin A1c Lab Routine Missed menses , unspecified gestational age Ordered: 10/18/2024 [facility] Comment on above: Ordered: 10/18/2024 Hepatitis B virus surface Ag [Presence] in Serum or Plasma by Immunoassay Hepatitis B surface antigen Lab Routine Missed menses , unspecified gestational age Ordered: 10/18/2024 [facility] Comment on above: Ordered: 10/18/2024 Hepatitis C virus Ab [Presence] in Serum or Plasma by Immunoassay Hepatitis C antibody Lab Routine Missed menses , unspecified gestational age Ordered: 10/18/2024 [facility] Comment on above: Ordered: 10/18/2024 HIV-1/HIV-2 antigen/antibody combination immunoassay HIV-1 and HIV-2 antibodies Lab Routine Missed menses , unspecified gestational age Ordered: 10/18/2024 [facility] Comment on above: Ordered: 10/18/2024 Human papilloma viru s DNA [Presence] in Unspecified specimen by Probe with amplification HPV DNA probe, amplified Microbiology Routine Well woman exam with routine gynecological exam Ordered: 12/10/2024 [facility] Comment on above: Ordered: 12/10/2024 Neisseria gonorrhoea e DNA [Presence] in Unspecified specimen by ALPA with probe detection Neisseria gonorrhea DNA probe, direct Lab Routine Exposure to STD Ordered: 12/10/2024 [facility] Comment on above: Ordered: 12/10/2024 Reagin Ab [Presence] in Serum by RPR RPR Lab Routine Missed menses , unspecified gestational age Ordered: 10/18/2024 [facility] Comment on above: Ordered: 10/18/2024 Rubella antibody, IgG Rubella an tibody, IgG Lab Routine Missed menses , unspecified gestational age Ordered: 10/18/2024 [facility] Comment on above: Ordered: 10/18/2024 SURESWAB(R) ADVANCED VAGINITIS PLUS, TMA SURESWAB(R) ADVANCED VAGINITIS PLUS, TMA Pathology and Cytology Routine Exposure to STD Ordered: 12/10/2024 [facility] Work Phone: Comment on above: Ordered: 12/10/2024 Thiamine [Moles/volu me] in Blood [facility] Immunizations Immunization Date Immunization Notes Care Provider Salvatore [facility] 07-21-2023 tetanus toxoid, redu sloane diphtheria toxoid, and acellular pertussis vaccine, adsorbed Berenice Evelyn CHARTER BOAT CAPTAIN.ASSISTANT TRACK COACH Work Phone: [facility] 05-03-2011 meningococcal polysaccharide (groups A, C, Y and W-135) diphtheria toxoid conjugate vaccine (MCV4P) Berenice Zepeda CHARTER BOAT CAPTAIN.ASSISTANT TRACK COACH Work Phone: [facility] 05-03-2011 tetanus toxoid, redu sloane diphtheria toxoid, and acellular pertussis vaccine, adsorbed Berenice Evelyn CHARTER BOAT CAPTAIN.ASSISTANT TRACK COACH Work Phone: [facility] 03-29-2011 human papilloma viru s vaccine, quadrivalent Berenice Evelyn CHARTER BOAT CAPTAIN.ASSISTANT TRACK COACH Work Phone: [facility] 11-26-2010 human papilloma viru s vaccine, quadrivalent Berenice Evelyn CHARTER BOAT CAPTAIN.ASSISTANT TRACK COACH Work Phone: [facility] 09-28-2010 human papilloma viru s vaccine, quadrivalent Berenice Evelyn CHARTER BOAT CAPTAIN.ASSISTANT TRACK COACH Work Phone: [facility] 04-30-1998 diphtheria, tetanus toxoids and acellular pertussis vaccine, unspecified formulation Berenice Zepeda CHARTER BOAT CAPTAIN.ASSISTANT TRACK COACH Work Phone: [facility] 04-30-1998 measles, mumps and rubella virus vaccine Berenice Evelyn CHARTER BOAT CAPTAIN.ASSISTANT TRACK COACH Work Phone: [facility] 04-30-1998 trivalent poliovirus vaccine, live, oral Berenice Evelyn CHARTER BOAT CAPTAIN.ASSISTANT TRACK COACH Work Phone: [facility] 06-07-1994 diphtheria, tetanus toxoids and acellular pertussis vaccine, unspecified formulation Berenice Evelyn CHARTER BOAT CAPTAIN.ASSISTANT TRACK COACH Work Phone: [facility] 06-07-1994 hepatitis B vaccine, pediatric or pediatric/adolescent dosage Berenice Evelyn CHARTER BOAT CAPTAIN.ASSISTANT TRACK COACH Work Phone: [facility] 06-07-1994 trivalent poliovirus vaccine, live, oral Berenice Evelyn CHARTER BOAT CAPTAIN.ASSISTANT TRACK COACH Work Phone: [facility] 03-01-1994 haemophilus influenz ae type b vaccine, conjugate unspecified formulation Berenice Evelyn CHARTER BOAT CAPTAIN.ASSISTANT TRACK COACH Work Phone: [facility] 03-01-1994 hepatitis B vaccine, pediatric or pediatric/adolescent dosage Berenice Evelyn CHARTER BOAT CAPTAIN.ASSISTANT TRACK COACH Work Phone: [facility] 03-01-1994 measles, mumps and rubella virus vaccine Berenice Evelyn CHARTER BOAT CAPTAIN.ASSISTANT TRACK COACH Work Phone: [facility] 07-27-1993 diphtheria, tetanus toxoids and pertussis vaccine Berenice Evelyn CHARTER BOAT CAPTAIN.ASSISTANT TRACK COACH Work Phone: [facility] 07-27-1993 haemophilus influenz ae type b vaccine, conjugate unspecified formulation Berenice Evelyn CHARTER BOAT CAPTAIN.ASSISTANT TRACK COACH Work Phone: [facility] 07-27-1993 hepatitis B vaccine, pediatric or pediatric/adolescent dosage Berenice Evelyn CHARTER BOAT CAPTAIN.ASSISTANT TRACK COACH Work Phone: [facility] 03-16-1993 diphtheria, tetanus toxoids and pertussis vaccine Berenice Evelyn CHARTER BOAT CAPTAIN.ASSISTANT TRACK COACH Work Phone: [facility] 03-16-1993 haemophilus influenz ae type b vaccine, conjugate unspecified formulation Berenice Evelyn CHARTER BOAT CAPTAIN.ASSISTANT TRACK COACH Work Phone: [facility] 03-16-1993 trivalent poliovirus vaccine, live, oral Berenice Evelyn CHARTER BOAT CAPTAIN.ASSISTANT TRACK COACH Work Phone: [facility] 1992 diphtheria, tetanus toxoids and pertussis vaccine [place] Evelyn CHARTER BOAT CAPTAIN.ASSISTANT TRACK COACH Work Phone: [facility] 1992 haemophilus influenz ae type b vaccine, conjugate unspecified formulation [place] Evelyn CHARTER BOAT CAPTAIN.ASSISTANT TRACK COACH Work Phone: [facility] 1992 trivalent poliovirus vaccine, live, oral [place] Evelyn CHARTER BOAT CAPTAIN.ASSISTANT TRACK COACH Work Phone: [facility] Payers Date Payer Category Payer Blue Cross Blue [employer] [id number] 2023 Unknown [id number] 2023 Private Health Insurance [employer] [id number] 2023 Unknown [id number] 2022 Self-pay 2022 Unknown [id number] 2019 Blue [employer] Blue [facility] - Other [id number] 2019 Unknown [employer] BLUE CARD PPO OOS [id number] 2019-Present [phone] [address] [place] [address] PPO [id number] 2019 Unknown [id number]. [id number] 1992 Unknown [id number] 2.16.840.1.139221.3.579.2. 1286 1992 Unknown [id number] 2.16.840.1.179168.3.579.2. 128 1992 Unknown [id number] 2.16.840.1.294691.3.579.2. 128 1992 Unknown [id number] 2.840.1.610439.3.579.2. 1258 1992 Unknown [id number] 2.840.1.963281.3.579.2. 1258 1992 Unknown [id number] 2.840.1.600307.3.579.2. 1258 1992 Unknown [id number] 2.840.1.158849.3.579.2. 1258 1992 Unknown [id number] 2.840.1.528647.3.579.2. 1258 1992 Unknown [id number] 2.16840.1.571905.3.579.2. 1258 1992 Unknown [id number] 2.16840.1.143906.3.579.2. 1258 1992 Unknown [id number] 2.16840.1.779415.3.579.2. 1259 1992 Unknown [id number] 2.16840.1.733460.3.579.2. 1258 1992 Unknown [id number] 2.16.840.1.527438.3.579.2. 1258 1992 Unknown [id number] 2.16840.1.226866.3.579.2. 1259 1992 Unknown [id number] 2.16.840.1.989143.3.579.2. 1259 1992 Unknown [id number] 2.16.840.1.107669.3.579.2. 1259 1992 Unknown [id number] 2.16.840.1.455656.3.579.2. 1259 1992 Unknown [id number] 2.16.840.1.601629.3.579.2. 1259 Unknown [id number] 2.16.840.1.428138.3.579.2. 531 Unknown [id number] 2.16.840.1.027557.3.579.2. 531 Social History Date Type Detail Facility Tobacco smoking stat [facility] Tobacco smoking consumption unknown [facility] Start: 1990 Sex Assigned At Not on file [facility] Start: 01-15-2022 End: 02-07-2025 Tobacco smoking status MAIS Never smoked tobacco [facility] Start: 01-15-2022 End: 02-07-2025 Tobacco use and exposure Smokeless tobacco non-user [facility] Start: 01-15-2022 End: 08-23-2023 Alcohol intake Current drinker of alcohol (finding) [facility] Start: 01-31-2019 End: 01-15-2022 Alcohol intake [facility] Start: 01-12-2022 History SDOH Alcohol Frequency 2 [facility] Start: 01-12-2022 History SDOH Alcohol Std Drinks 1 [facility] Start: 01-15-2022 History SDOH Alcohol Comment occ. drink [facility] Start: 01-12-2022 History SDOH Social Connections Phone 5 [facility] Start: 01-12-2022 History SDOH Social Connections Get Together 4 [facility] Start: 01-12-2022 History SDOH Social Connections Living 7 [facility] Start: 01-12-2022 History SDOH Physical Activity MPS 3 [facility] Start: 1990 Sex Assigned At Female [facility] Start: 01-31-2019 End: 01-12-2022 Social connection and isolation panel [facility] Do you belong to any clubs or organizations such as cheondoism groups, unions, fraternal or athletic groups, or school groups? No [facility] Are you now , , , , never or living with a partner? Never [facility] How often to you hav e a drink containing alcohol? Monthly or less [facility] How many standard dr inks containing alcohol do you have on a typical day? 1 or 2 [facility] How often do you hav e 6 or more drinks on 1 occasion? Never [facility] How hard is it for y ou to pay for the very basics like food, housing, medical care, and heating Not hard at all [facility] Do you feel stress - tense, restless, nervous, or anxious, or unable to sleep at night because your mind is troubled all the time - these days [OSQ] Not at all [facility] (I/We) worried delbert er (my/our) food would run out before (I/we) got money to buy more. Never true [facility] Start: 01-12-2022 Gender identity Identifies as female gender (finding) [facility] Are you now , , , , never or living with a partner? Living with partner [facility] How hard is it for y ou to pay for the very basics like food, housing, medical care, and heating Not very hard [facility] Do you feel stress - tense, restless, nervous, or anxious, or unable to sleep at night because your mind is troubled all the time - these days [OSQ] To some extent [facility] The food that (I/we) bought just didn't last, and (I/we) didn't have money to get more. DK or Refused [facility] Start: 10-17-2023 End: 03-12-2025 Alcoholic beverage intake Ex-drinker (finding) [facility] Start: 10-17-2023 Alcohol Comment Caffeine intake: 1cup coffee/ day [facility] Start: 09-14-2023 [facility] Start: 04-22-2015 Sex Female (finding) Funding Profiles [employer] [facility] Medical Equipment Procedure Code Equipment Code Equipment Origin al Text Equipment Identifier Dates 1 strip by In Vi tro route Daily Use in the morning prior to breakfast, 1 hour after each meal for a total of 4times daily. [id number] Start: 02-04-2025 End: 03-06-2025 1 each by In Vit ro route Daily Use to check FSBS four times daily [id number] Start: 02-04-2025 End: 03-06-2025 Use to inject insulin nightly [id number] Start: 03-12-2025 Goals Date Patient Goal Desired Activity /State Personal health goal Clinical Notes 01-08-2022 to 04-15-2025 Telephone Encounter - Beulah Miller RN - 04/15/2025 3:08 PM EDTTelephone Encounter - Beulah Miller RN - 04/15/2025 3:08 PM EDTSamia King LPN - 04/10/2025 3:00 PM EDTPatient Instructions Note Date & Type Note Facility 04-15-2025 Miscellaneous Notes Received BG results and all are in target range. Called and left message of praise for all efforts and to call if questions. To send next week again. No changes. documented in this encounter [facility] 04-15-2025 Telephone encounter Note Received BG results and all are in target range. Called and left message of praise for all efforts and to call if questions. To send next week again. No changes. [facility] 04-10-2025 History of Present illness Narrative Reason for [...] nursing note reviewed. Exam conducted with a sharepoint application developer present. Vitals: Estimated body mass index is 37.22 kg/m as calculated from the following: Height as of 24: 5' 3 . Weight as of this encounter: 210 lb 1.9 oz. BP: 120/70 Patient's last menstrual period was 08/12/2024. ASSESSMENT & PLAN ICD-10-CM 1. 34 weeks gestation of ([facility]) Z3A.34 POCT urinalysis dipstick manually resulted 2. Third trimester ([facility]) Z34.93 POCT urinalysis dipstick manually resulted 3. H/O gastric sleeve Z90.3 4. Insulin controlled gestational diabetes mellitus (GDM) during , antepartum ([facility]) O24.414 Return OB: Patient presents today [...] Roscoe Diaz DO documented in this encounter [facility] 04-09-2025 Miscellaneous Notes Called regarding blood sugar logs from 04/01/2025-04/07/2025 but the call went straight to voicemail. She had 4 elevated post prandial blood sugars, no pattern, but she did note that they were most likely related to higher carbohydrate meals. Continue with 10 units of Lantus and sending blood sugars weekly. Reminded to schedule a follow-up visit with a [facility] provider for the second week in April. documented in this encounter [facility] [employer] 04-09-2025 Telephone encounter Note Called regarding blood sugar logs from 04/01/2025-04/07/2025 but the call went straight to voicemail. She had 4 elevated post prandial blood sugars, no pattern, but she did note that they were most likely related to higher carbohydrate meals. Continue with 10 units of Lantus and sending blood sugars weekly. Reminded to schedule a follow-up visit with a [facility] provider for the second week in April. [employer] [facility] Work Phone: 04-01-2025 Miscellaneous Notes Left message for patient to call MFM back to reschedule a 4 week video visit shobha Marr. [facility] 04-01-2025 Telephone encounter Note Left message for patient to call MFM back to reschedule a 4 week video visit shobha Marr. [facility] 04-01-2025 History of Present illness Narrative [...] nightly, Disp: 100 each, Rfl: 2 25-IRON XIV-HBWAR-VIN ORAL, Take 1 tablet by mouth in [...] hypoglycemia, and examples of treatment of hypoglycemia ( rule). Discussed her current diet and [...] Delivery recommendations : - Recommend delivery at [id number] - reviewed with pateint - Discuss delivery [...] values to us weekly by e-mail to: [email or web address] or by fax to: [phone] Daisha Briseno PA-C [facility] Office phone: [phone] Daisha Briseno PA-C 04/01/25 1331 documented in this encounter [facility] 04-01-2025 Miscellaneous Notes Left message to remind patient of video visit today at 10 AM. Call back number given to reschedule if unable to keep appointment. documented in this encounter [facility] 04-01-2025 Telephone encounter Note Left message to remind patient of video visit today at 10 AM. Call back number given to reschedule if unable to keep appointment. [facility] 03-27-2025 History of Present illness Narrative [...] nursing note reviewed. Exam conducted with a sharepoint application developer present. Vitals: Estimated body mass index is 36.28 kg/m as calculated from the following: Height as of 24: 5' 3 . Weight as of this encounter: 204 lb 12.8 oz. BP: 116/72 Patient's last menstrual period was 08/12/2024. ASSESSMENT & PLAN ICD-10-CM 1. Third trimester ([facility]) Z34.93 POCT urinalysis dipstick manually resulted 2. H/O gastric sleeve Z90.3 POCT urinalysis dipstick manually resulted 3. Gestational diabetes mellitus (GDM), antepartum, gestational diabetes method of control unspecified ([facility]) O24.419 POCT urinalysis dipstick manually resulted 4. 32 weeks gestation of ([facility]) Z3A.32 POCT urinalysis dipstick manually resulted [...] appointment. Patient continues to send FSBS to [facility] and doing well and [facility] continues to manage her Lantus dosing. She will begin NST/ BPP this week. Documented by Adelaida Dugan NP on behalf of: Roscoe Diaz DO documented in this encounter [facility] 03-26-2025 Miscellaneous Notes Called regarding blood sugar logs from 03/18/2025-03/24/2025 but received voicemail. Caryl had one elevated fasting blood sugar ( she may not of had a snack the night before) and three elevated blood sugars after dinner. She is taking 10 units of Lantus in the evening. Will send a MyChart message. [facility] 03-26-2025 Telephone encounter Note Called regarding blood sugar logs from 03/18/2025-03/24/2025 but received voicemail. Caryl had one elevated fasting blood sugar ( she may not of had a snack the night before) and three elevated blood sugars after dinner. She is taking 10 units of Lantus in the evening. Will send a MyChart message. [facility] Work Phone: 03-19-2025 Miscellaneous Notes Blood glucose [...] now in target. documented in this encounter [facility] 03-19-2025 Telephone encounter Note Blood glucose log from 03/11/25 to 03/17/25 received. Patient did not answer. I left a voicemail asking her to check for a new MyChart message that I am going to leave with questions about her dinner values (4 out of 7 were still elevated). Patient started Lantus on 03/12/25 and all fasting BG now in target. [facility] 03-13-2025 History of Present illness Narrative Reason [...] PLAN ICD-10-CM 1. 30 weeks gestation of ([facility]) Z3A.30 POCT urinalysis dipstick manually resulted 2. Third trimester ([facility]) Z34.93 POCT urinalysis dipstick manually resulted 3. H/O gastric sleeve Z90.3 4. Gestational diabetes mellitus (GDM), antepartum, gestational diabetes method of control unspecified ([facility]) O24.419 Return OB: Patient presents today [...] of: SLICK Matias documented in this encounter [facility] 03-12-2025 History of Present illness Narrative [...] nausea or vomiting., Disp: , Rfl: 25-IRON SGP-CUDJC-BBY ORAL, Take 1 tablet by mouth in [...] more likely to fail compared to insulin. [facility] data on children whose mothers took oral [...] hypoglycemia, and examples of treatment of hypoglycemia ( rule). Discussed her current diet and [...] Delivery recommendations : - Recommend delivery at [id number] - reviewed with pateint - Discuss delivery [...] by e-mail to: or by fax to: [phone] Daisha Briseno PA-C Maternal- Medicine Office phone: [phone] Daisha Briseno PA-C 03/12/25 1500 Summary: MFM Insulin Pen [...] 10 minutes. [facility] 03-05-2025 Miscellaneous Notes Called regarding blood sugar logs from 02/25/2025-03/03/2025 but the call went directly to [employer]. Caryl had 1 one elevated fasting blood sugar, 1 elevated blood sugar after breakfast, one elevated blood sugar after lunch, and 4 elevated blood sugars after dinner. Will send a [employer] message. [facility] 03-05-2025 Telephone encounter Note Called regarding blood sugar logs from 02/25/2025-03/03/2025 but the call went directly to [employer]. Caryl had 1 one elevated fasting blood sugar, 1 elevated blood sugar after breakfast, one elevated blood sugar after lunch, and 4 elevated blood sugars after dinner. Will send a [employer] message. [facility] Work Phone: 02-27-2025 History of Present illness Narrative Reason for Appointment: Patient ID: Caryl Zamarripa is a 34 y.o. female who presents for Routine Visit Patient presents today for Return OB appointment. MEDICATIONS Current Outpatient Medications Medication Instructions Alcohol Swabs (Alcohol Prep Pad) 70 % pads 1 Pad, Topical, Daily, Use four times daily to check FSBS. Blood Glucose Monitoring Suppl ([employer] Glucometer) w/Device kit 1 kit, Does not [...] nursing note reviewed. Exam conducted with a sharepoint application developer present. Vitals: Estimated body mass index is 36.1 kg/m as calculated from the following: Height as of 07/25/24: 5' 3 . Weight as of this encounter: 203 lb 12.8 oz. BP: 110/60 Patient's last menstrual period was 08/12/2024. ASSESSMENT & PLAN ICD-10-CM 1. 28 weeks gestation of ([facility]) Z3A.28 POCT urinalysis dipstick manually resulted 2. Third trimester ([facility]) Z34.93 POCT urinalysis dipstick manually resulted 3. H/O gastric sleeve Z90.3 4. Gestational diabetes mellitus (GDM), antepartum, gestational diabetes method of control unspecified ([facility]) O24.419 Return OB: Patient presents today [...] for routine OB appointment. Documented by Samia Kign LPN on behalf of: Roscoe Diaz DO documented in this encounter [facility] 02-26-2025 Miscellaneous Notes Called regarding blood [...] a MyChart message. documented in this encounter [facility] 02-26-2025 Telephone encounter Note Called regarding blood [...] she has questions. Will also send a [employer] message. [facility] Work Phone: 02-14-2025 Group counseling note Patient: [...] of food logs and blood glucoses to [email or web address], next Tuesday night/Tuesday morning. Please refer to health habits for other goals. Breakfast 6-6:30 AM 15-25 grams of CHO, Snack 9 AM 15-30 grams of CHO, Lunch 11:30-Noon 45 grams of CHO, Snack 2-3 PM 15-30 grams of CHO, Dinner 6 PM 45 grams of CHO, HS Snack 8-9 PM 15-30 grams of CHO. Face to face time was 70 minutes. [facility] Work Phone: 02-14-2025 Miscellaneous Notes Patient: Caryl [...] of food logs and blood glucoses to [email or web address], next Tuesday night/Tuesday morning. Please refer to [...] was 70 minutes. documented in this encounter [facility] 02-11-2025 History of Present illness Narrative Reason for Appointment: Patient ID: Caryl Zamarripa is a 34 y.o. female who presents for Routine Visit Patient presents today for Return OB appointment. MEDICATIONS Current Outpatient Medications Medication Instructions Alcohol Swabs (Alcohol Prep Pad) 70 % pads 1 Pad, Topical, Daily, Use four times daily to check FSBS. Blood Glucose Monitoring Suppl (D-[employer] Glucometer) w/Device kit 1 kit, Does not [...] nursing note reviewed. Exam conducted with a sharepoint application developer present. Vitals: Estimated body mass index is 35.87 kg/m as calculated from the following: Height as of 24: 5' 3 . Weight as of this encounter: 202 lb 8 oz. BP: 110/60 Patient's last menstrual period was 08/12/2024. ASSESSMENT & PLAN ICD-10-CM 1. Second trimester ([facility]) Z34.92 POCT urinalysis dipstick manually resulted 2. 26 weeks gestation of ([facility]) Z3A.26 3. H/O gastric sleeve Z90.3 [...] Adelaida Dugan NP documented in this encounter [facility] 01-10-2025 History of Present illness Narrative [...] nursing note reviewed. Exam conducted with a sharepoint application developer present. Vitals: Estimated body mass index is [...] Roscoe Diaz DO documented in this encounter [facility] 12-10-2024 History of Present illness Narrative [...] nursing note reviewed. Exam conducted with a sharepoint application developer present. Vitals: Estimated body mass index is [...] of: SLICK Matias documented in this encounter [facility] 11-08-2024 History of Present illness Narrative [...] Roscoe Diaz DO documented in this encounter [facility] 10-18-2024 History of Present illness Narrative [...] or undercooked meat, and stay away from [facility]. Patient has also been advised to [...] Monika Mesa LPN documented in this encounter [facility] 08-02-2024 History of Present illness Narrative Images from the original note were not included. [address], [address] [facility], [address] P: [phone] F: [phone] HPI Historian of HPI: patient Crayl Zamarripa is a 33 y.o. female who [...] Left Turbinates: Enlarged and swollen. Mouth/Throat: Lips: [place]. Mouth: Mucous membranes are moist. Pharynx: Oropharynx [...] tablet; Refill: 0 documented in this encounter [facility] 07-25-2024 History of Present illness Narrative [...] Use: Not At Risk (07/19/2023) Received from [facility] AUDIT-C Frequency of Alcohol Consumption: Monthly or less Average Number of Drinks: 1 or 2 Frequency of Binge Drinking: Never Depression: Not at risk (06/29/2024) Received from [facility] PHQ-2 PHQ-2 score: 0 Physical Activity: Insufficiently Active (07/19/2023) Received from [facility] Exercise Vital Sign Days of [...] daily as needed for discomfort/pain Thank you, K Bhavik Jain DO documented in this encounter [facility] 06-29-2024 Note HNO ID: [id number] Author: BERENICE ZEPEDA APRN.ASSISTANT TRACK COACH Service: ? Author Type: Nurse Practitioner Type: [...] - PHENTERMINE 37.5 MG TABLET Berenice Zepeda APRN.[facility] 06-29-2024 History of Present illness Narrative [...] - PHENTERMINE 37.5 MG TABLET Berenice Zepeda APRN.ASSISTANT TRACK COACH documented in this encounter [facility] 03-06-2024 Telephone encounter Note Order formatted Please advise [facility] 03-06-2024 Miscellaneous Notes Order formatted Please advise documented in this encounter [facility] 09-23-2023 Note HNO ID: [id number] Author: BERENICE ZEPEDA APRN.[facility]ORGI Service: ? Author Type: Nurse Practitioner Type: Progress Notes Filed: 09/23/2023 15:52 Note Text: VIRTUAL VISIT PROGRESS NOTE This is a virtual visit using [employer] Video Visit. It required patient-provider interaction for the medical decision making as documented below. I have communicated my name and active licensure. The patient's identity and physical location were verified at the time of this visit. Either the patient or their legal telesales representative has been informed of the risks [...] Outpatient Medications Medication Sig Omeprazole Magnesium (ACID AIRLINE MANAGER, OMEPRAZOLE,) 20 mg cpDR No current [...] on file for this visit. Berenice Zepeda APRN.[facility] 09-23-2023 History of Present illness Narrative VIRTUAL VISIT PROGRESS NOTE This is a virtual visit using [employer] Zoom Video Visit. It required patient-provider interaction for the medical decision making as documented below. I have communicated my name and active licensure. The patient's identity and physical location were verified at the time of this visit. Either the patient or their legal telesales representative has been informed of the risks [...] Outpatient Medications Medication Sig Omeprazole Magnesium (ACID AIRLINE MANAGER, OMEPRAZOLE,) 20 mg cpDR No current [...] file for this visit. Berenice Zepeda APRN.CNP documented in this encounter [facility] 08-23-2023 Note HNO ID: [id number] Author: BERENICE ZEPEDA APRN.CNP Service: ? Author [...] PHENTERMINE 37.5 MG TABLET Berenice Zepeda APRN.GIORGI [facility] 07-21-2023 Note HNO ID: [id number] Author: Berenice Zepeda APRN.ASSISTANT TRACK COACH Service: ? Author Type: Nurse Practitioner Type: Progress Notes Filed: 07/22/2023 10:16 AM Note Text: Caryl Zamarripa is a 32 year old female here today for review of established medical problems as well as comprehensive physical examination. Obesity S/p gastric sleeve surgery in 03/2022 at [facility] in [place] Down about 70lb, has reached plateau Gym 4 days per week with cardio (treadmill, elliptical) Maybe not enough water Tries to focus on more protein, lower carbs Last 10 Encounter Wt Readings: Date: Wt: 07/21/2023 80.1 kg (176 lb 8 oz) 07/06/2022 81.6 kg (180 lb) 01/15/2022 104.3 kg (230 lb) [facility] HM needs: Hepatitis B Vaccine(1 of 3 - 3-dose series) Never done Depression Assessment Never done HPV Testing Never done PAST MEDICAL HISTORY Diagnosis Date GERD (gastroesophageal reflux disease) Prediabetes PAST SURGICAL HISTORY Procedure Laterality Date PT ED BARIATRIC AND METABOLIC gastric sleeve 03/2022 ALLERGIES Patient has no known allergies. MEDICATIONS Omeprazole Magnesium (ACID AIRLINE MANAGER, OMEPRAZOLE,) 20 mg cpDR Phentermine HCl [...] No history of dysuria, frequency or incontinence REPAIRER AND CHECKER: Negative for abnormal vaginal bleeding, abnormal vaginal [...] and symmetric. Sensation grossly intact. Breast/Pelvic: Per REPAIRER AND CHECKER ASSESSMENT/PLAN: 1. Routine adult health maintenance - ICD9: V70.0, ICD10: Z00.00 (primary diagnosis) - Counseled on healthy diet and regular exercise - Calcium intake with supplements or by diet of 1000 mg/day for under 50, 7358-2582 mg/day for 50+ - Discussed need and [...] comorbidity present - (more content not included)... [facility] 07-21-2023 History of Present illness Narrative Caryl Zamarripa is a 32 year old female here today for review of established medical problems as well as comprehensive physical examination. Obesity S/p gastric sleeve surgery in 03/2022 at [facility] in [place] Down about 70lb, has reached plateau Gym 4 days per week with cardio (treadmill, elliptical) Maybe not enough water Tries to focus on more protein, lower carbs Last 10 Encounter Wt Readings: Date: Wt: 07/21/2023 80.1 kg (176 lb 8 oz) 07/06/2022 81.6 kg (180 lb) 01/15/2022 104.3 kg (230 lb) [facility] HM needs: Hepatitis B Vaccine(1 of 3 - 3-dose series) Never done Depression Assessment Never done HPV Testing Never done PAST MEDICAL HISTORY Diagnosis Date GERD (gastroesophageal reflux disease) Prediabetes PAST SURGICAL HISTORY Procedure Laterality Date PT ED BARIATRIC AND METABOLIC gastric sleeve 03/2022 ALLERGIES Patient has no known allergies. MEDICATIONS Omeprazole Magnesium (ACID AIRLINE MANAGER, OMEPRAZOLE,) 20 mg cpDR Phentermine HCl [...] No history of dysuria, frequency or incontinence REPAIRER AND CHECKER: Negative for abnormal vaginal bleeding, abnormal vaginal [...] and symmetric. Sensation grossly intact. Breast/Pelvic: Per REPAIRER AND CHECKER ASSESSMENT/PLAN: 1. Routine adult health maintenance - ICD9: V70.0, ICD10: Z00.00 (primary diagnosis) - Counseled on healthy diet and regular exercise - Calcium intake with supplements or by diet of 1000 mg/day for under 50, 6776-5044 mg/day for 50+ - Discussed need and [...] - HEP B SURF AB Berenice Zepeda APRN.ASSISTANT TRACK COACH ' documented in this encounter [facility] 06-29-2023 Miscellaneous Notes Sent Valtrex 1 gram twice/day for 2 days with one refill. High stress can cause cold sores? How is your stress level? documented in this encounter [facility] 01-15-2022 Instructions Dasha Lujan MD - 01/15/2022 12:05 PM EDT -Get Hgba1c and K level checked in the near future. -Encourage you to lose 2 lbs/week as a healthy way via diet and exercise -Should you have any questions or concerns, do not hesitate to contact me anytime via my chart (Dr.Sunir Lujan) documented in this encounter [facility] 01-15-2022 History of Present illness Narrative Caryl Zamarripa is a 31 year old female who presents with Establish Care -Pt is here to Establish Care. 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 Says all labs checked out fine per pt discussion. Pt says she did get her thyroid lab work checked 4 years ago, and all checked out fine. Thyroid blood work was also checked recently. -OARRS reviewed: clean -Executor Of Estate: deferred seeing one at this time as pt is undergoing gastric sleeve evaluation (Bariatric Surgery) at [facility]. Pt says that she just needs [...] focal deficits PSYCH: no suicide thoughts ASSESSMENT/PLAN: (Z01.418) Preoperative clearance (primary encounter diagnosis) -Cleared for bariatric surgery from my standpoint. (E66.9) Obesity (BMI 30-39.9) -Encouraged her to lose 2 lbs/week as a healthy way via diet and exercise -Going via the process to get Bariatric Surgery done at [facility]. (R73.9) Blood glucose elevated Plan: HGB A1C (E87.5) Hyperkalemia Plan: POTASSIUM BLD -Will have her get K level rechecked. (K76.0) Hepatic steatosis -LFT were normal. -Encourage weight reduction and avoid alcohol and tylenol as much as possible. -Will continue to monitor LFT. Dasha Lujan MD documented in this encounter [facility] 01-08-2022 Miscellaneous Notes Will advise on Tuesday when he returns Patient calling stating Dr Lujan agreed to take her into his practice but no documentation found in patient chart. Please advise. documented in this encounter [facility] Evaluation note Diagnosis Preoperative clearance- Primary Preoperative examination, unspecified Obesity (BMI 30-39.9) Obesity, unspecified Blood glucose elevated Other abnormal glucose Hyperkalemia Hyperpotassemia Hepatic steatosis Other chronic nonalcoholic liver disease documented [facility]No assessment information availableKettering Health Work Phone: Evaluation note* Diagnosis Routine adult [...] Antibody response examination [facility] Diagnosis Encounter for weight management Overweight (BMI 25.0-29.9) Overweight [facility] Diagnosis Encounter for weight management- Primary Overweight [facility] Diagnosis Rectal bleeding- Primary Hemorrhage of rectum and anus documented in this encounter [facility]* Diagnosis Acute cough- Primary Chest congestion Other symptoms involving respiratory system and chest Bronchitis Bronchitis, not specified as acute or chronic documented in this encounter [facility] HealthcareEvaluation note* Diagnosis Missed menses , unspecified gestational age Encounter for supervision of normal first in first trimester Nausea and vomiting in Unspecified vomiting of , unspecified as to episode of care documented in this encounter [facility] HealthcareEvaluation note* Diagnosis 12 weeks gestation of documented in this encounter [facility] HealthcareEvaluation note* Diagnosis Well woman exam with routine gynecological exam Routine gynecological examination Second trimester state, incidental 17 weeks gestation of Exposure to STD Need for maternal serum alpha-protein (MSAFP) screening Screening, , for anatomic survey Encounter for anatomic survey documented in this encounter [facility] HealthcareEvaluation note* Diagnosis 21 weeks gestation of Second trimester state, incidental Diabetes mellitus screening Screening for diabetes mellitus documented in this encounter [facility] HealthcareEvaluation note* Diagnosis Second trimester (HHS-HCC) state, incidental 26 weeks gestation of (HHS-HCC) H/O gastric sleeve documented in this encounter [facility] HealthcareEvaluation note* Diagnosis Gestational diabetes mellitus (GDM) in second trimester, gestational diabetes method of control unspecified- Primary documented in this encounter [facility]* Diagnosis 28 weeks gestation of (HHS-HCC) Third trimester (HHS-HCC) state, incidental H/O gastric sleeve Gestational diabetes mellitus (GDM), antepartum, gestational diabetes method of control unspecified (HHS-HCC) documented in this encounter [facility] HealthcareEvaluation note* Diagnosis Gestational diabetes mellitus (GDM) in second trimester, gestational diabetes method of control unspecified- Primary Gestational diabetes requiring insulin Abnormal maternal glucose tolerance, complicating , childbirth, or the puerperium, unspecified as to episode of care [facility] Diagnosis 30 weeks gestation of (HHS-HCC) Third trimester (HHS-HCC) state, incidental H/O gastric sleeve Gestational diabetes mellitus (GDM), antepartum, gestational diabetes method of control unspecified (HHS-HCC) [facility] Diagnosis Gestational diabetes requiring insulin- Primary Abnormal maternal glucose tolerance, complicating , childbirth, or the puerperium, unspecified as to episode of care [facility] Diagnosis Third trimester (HHS-HCC) state, incidental H/O gastric sleeve Gestational diabetes mellitus (GDM), antepartum, gestational diabetes method of control unspecified (HHS-HCC) 32 weeks gestation of (HHS-HCC) [facility] Diagnosis 34 weeks gestation of (HHS-HCC) Third trimester (HHS-HCC) state, incidental H/O gastric sleeve Insulin controlled gestational diabetes mellitus (GDM) during , antepartum (HHS-HCC) documented in this encounter [facility] HealthcareInstructionsNot on filedocumented in this encounterMer[facility] SystemInstructionsNot on filedocumented in this encounterMercy Health St. [facility] SystemInstructionsNot on filedocumented in this encounterMercy Health St[facility] SystemInstructionsNot on filedocumented in this encounterMercy Health St[facility] InstructionsNot on filedocumented in this encounterMercy Health St. [facility] InstructionsNot on filedocumented in this encounterMercy Health St[facility] Summary Purpose Family History No [...] unspecified whether serious comorbidity present Berenice Zepeda, BRETT.ASSISTANT TRACK COACH [address] [place] [address] Referral ID Status Reason Start Date Expiration Date Visits Re quested Visits Authorized [id number] Closed 1 1 Specialty Diagnoses / Procedures Referred By Zachery t Referred To Contact Diagnoses Encounter for weight management Overweight (BMI 25.0-29.9) Berenice Zepeda APRN.ASSISTANT TRACK COACH [address] [facility] [place] [address] Referral ID Status Reason Start Date Expiration Date Visits Re quested Visits Authorized [id number] Closed 1 1 Additional Source Comments Source Comments (unrecognize d section and content) In the event this informatio n is protected by the Federal Confidentiality of Alcohol and Drug Abuse Patient Records regulations: The Federal rules restrict any use of the information to criminally investigate or prosecute any alcohol or drug abuse patient.[facility] the event this information is protected by the Federal Confidentiality of Alcohol and Drug Abuse Patient Records regulations: The Federal rules restrict any use of the information to criminally investigate or prosecute any alcohol or drug abuse patient.[facility] HospitalIn the event this information is protected by the Federal Confidentiality of Alcohol and Drug Abuse Patient Records regulations: The Federal rules restrict any use of the information to criminally investigate or prosecute any alcohol or drug abuse patient.[facility] HospitalIn the event this information is protected by the Federal Confidentiality of Alcohol and Drug Abuse Patient Records regulations: The Federal rules restrict any use of the information to criminally investigate or prosecute any alcohol or drug abuse patient.[facility] HospitalIn the event this information is protected by the Federal Confidentiality of Alcohol and Drug Abuse Patient Records regulations: The Federal rules restrict any use of the information to criminally investigate or prosecute any alcohol or drug abuse patient.[facility] HospitalIn the event this information is protected by the Federal Confidentiality of Alcohol and Drug Abuse Patient Records regulations: The Federal rules restrict any use of the information to criminally investigate or prosecute any alcohol or drug abuse patient.[facility] HospitalIn the event this information is protected by the Federal Confidentiality of Alcohol and Drug Abuse Patient Records regulations: The Federal rules restrict any use of the information to criminally investigate or prosecute any alcohol or drug abuse patient.[facility] Reason for Visit (unrecogniz ed section [...] Contact General Surgery Diagnoses Rectal bleeding Procedures [place] OFFICE/OUTPATIENT [facility] Sina Jain, [address] [address] Phone: tel: fax: Sina Jain, [address] [address] Phone: tel: fax: Referral ID Status Reason Start Date Expiration Date V isits Requested Visits Authorized [id number] Closed Specialty Services Required 07/11/2024 01/07/2025 1 1 Reason Comments Amenorrhea Reason Comments Routine Visit Reason Comments Elevated Glucose Tolerance Test Specialty Diagnoses / Procedures Referred By Zachery kenyon Referred To Contact Maternal and Medicine Diagnoses Gestational diabetes mellitus (GDM) in second trimester, gestational diabetes method of control unspecified Rsocoe Diaz, DO [address] [place] [address] Phone: tel: fax: Maternal- Medicine at [facility] [address] [facility] [place] [address] Phone: tel: fax: Referral ID Status Reason Start Date Expiration Date Visits Requested Visits Authorized [id number] Pending Review Specialty Services Required 02/06/2025 02/06/2026 1 1 Reason Comments MED START Care Teams (unrecognized sec tion and content) Apprentice Embalmer Relationship Specialty [place] [address] [place] [address] PCP - General Internal Medicine 01/11/22 Team Status: Inactive Member Role Status Dates Dasha Lujan MD Primary Care Provider Active Reena Breaux APRN TELEMETRY REGISTERED NURSE-C Attending Provider Activ e Team Status: Active Member Role Status Dates Dasha Lujan MD Primary Care Provider Active Apprentice Embalmer Relationship Specialty [place] [address] [place] [address] PCP - General Internal Medicine 01/11/22 Apprentice Embalmer Relationship Specialty [place] [address] [place] [address] PCP - General Internal Medicine 01/11/22 Apprentice Embalmer Relationship Specialty [place] [address] [place] [address] PCP - General Internal Medicine 01/11/22 Apprentice Embalmer Relationship Specialty [place] [address] [place] [address] PCP - General Internal Medicine 01/11/22 Apprentice Embalmer Relationship Specialty [place] [address] [place] [address] PCP - General Internal Medicine 01/11/22 Apprentice Embalmer Relationship Specialty Start Date End Date Unallocated, Chiara Pate MD [facility] [address] [place] [address] PCP - General Family Medicine 10/17/23 Apprentice Embalmer Relationship Specialty Start Date End Date Unallocated, MD [place] [address] PCP - General Family Medicine 10/17/23 Apprentice Embalmer Relationship Specialty Start Date End Date Unallocated, Chiara Pate MD [facility] [address] [place] [address] PCP - General Family Medicine 10/17/23 Apprentice Embalmer Relationship Specialty Start Date End Date Unallocated, Chiara Pate MD [facility] [address] [place] [address] PCP - General Family Medicine 10/17/23 Apprentice Embalmer Relationship Specialty Start Date End Date Unallocated, Chiara Pate MD [facility] [address] [place] [address] PCP - General Family Medicine 10/17/23 Apprentice Embalmer Relationship Specialty Start Date End Date Unallocated, Chiara Pate MD [facility] [address] [facility] [place] [address] PCP - General Family Medicine 10/17/23 Edu Alvarez, TELEMETRY REGISTERED NURSE [address] [place] [address] PCP - [facility] 09/22/24 Apprentice Embalmer Relationship Specialty Start Date End Date Unallocated, Chiara Pate MD [facility] [address] [facility] [place] [place] [address] PCP - General Family Medicine 10/17/23 dEu Alvarez, TELEMETRY REGISTERED NURSE [address] [place] [address] PCP - [employer] 09/22/24 Apprentice Embalmer Relationship Specialty Start Date End Date Unallocated, Chiara Pate MD [address] [place], [place] [address] [address] PCP - General Family Medicine 10/17/23 Edu Alvarez, TELEMETRY REGISTERED NURSE [address] [place] [address] PCP - [employer] 09/22/24 Apprentice Embalmer Relationship Specialty Start Date End Date Unallocated, Chiara Pate MD [facility] [place] [address] PCP - General Family Medicine 10/17/23 Edu Alvarez TELEMETRY REGISTERED NURSE [address] [place] [address] PCP - [employer] 09/22/24 Apprentice Embalmer Relationship Specialty Start Date End Date Unallocated, Chiara Pate MD [address] [place] [address] PCP - General Family Medicine 10/17/23 Edu Alvarez, TELEMETRY REGISTERED NURSE [address] [place] [address] PCP - [employer] 09/22/24 Apprentice Embalmer Relationship Specialty Start Date End Date Unallocated, Chiara Pate MD [address] [place], [place] [address] [address] PCP - General Family Medicine 10/17/23 Edu Alvarez, TONIA [address] [place] [address] PCP - [employer] 09/22/24 Apprentice Embalmer Relationship Specialty Start Date End Date Unallocated, Chiara Pate MD Count includes the [facility] [place] [address] PCP - General Family Medicine 10/17/23 Edu Alvarez NP [address] [place] [address] PCP - [employer] 09/22/24 Apprentice Embalmer Relationship Specialty Start Date End Date Unallocated, Chiara Pate MD [address] [place] [address] PCP - General Family Medicine 10/17/23 Edu Alvarez NP [address] [place] [address] PCP - [employer] 09/22/24 Apprentice Embalmer Relationship Specialty Start Date End Date Unallocated, Chiara Pate MD [address] [place] [address] PCP - General Family Medicine 10/17/23 Edu Alvarez TELEMETRY REGISTERED NURSE [address] [place] [address] PCP - [employer] 09/22/24 Apprentice Embalmer Relationship Specialty Start Date End Date Unallocated, Chiara Pate MD [address] [place] [address] PCP - General Family Medicine 10/17/23 Edu Alvarez NP [address] [place] [address] PCP - [employer] 09/22/24 INFORMATION SOURCE (unrecogn ized section and content) DATE CREATED AUTHOR 01/16/2022 [facility] DATE CREATED AUTHOR AUTHOR'S ORGANIZ ATION 10/18/2022 [facility] DATE CREATED AUTHOR AUTHOR'S ORGANIZ ATION 07/01/2024 [facility] DATE CREATED AUTHOR AUTHOR'S ORGANIZ ATION 04/02/2025 [facility] DATE CREATED AUTHOR AUTHOR'S ORGANIZ ATION 04/12/2025 [facility] dical Specialists EPIC Goals (unrecognized section and [...] BE BASED ON THE PRIMARY CLINICAL RECORDS. [employer] provides no warranty or guarantee of the accuracy or completeness of information in this document.
== END 2025-04-18 16:05 | disposition home or self-care (01) ==
LOC: FBCO 15:28 → FBC 15:28
PROVIDERS: Visit Provider Obstetrics & Gynecology
DX: O26.893 Other specified pregnancy related conditions, third trimester (principal)
CPT/HCPCS: 59025

== ENCOUNTER 2025-04-23 15:55 | Outpatient (OUT) | payer BC, SELFPAY ==
--- OUTSIDE RECORDS SUMMARY | 2024-04-12 04:45 | XMS_ITS | Continuity of Care Document ---
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 Machine Tender Name Role Phone Reena Breaux CNP Unavailable Procedures Procedure Date OFFICE/OUTPATIENT VISIT, EST OFFICE/OUTPATIENT VISIT, EST OFFICE/OUTPATIENT VISIT, EST OFFICE/OUTPATIENT VISIT, EST POSTOP FOLLOW-UP VISIT POSTOP FOLLOW-UP VISIT LAP SLEEVE GASTRECTOMY Sleeve Gastrectomy OFFICE/OUTPATIENT VISIT, EST PSYCH DIAGNOSTIC EVALUATION PSYCL/NRPSYC TST PHY/QHP 1ST PSYCL/NRPSYC TST PHY/QHP OFFICE/OUTPATIENT VISIT, [facility] Advance Directives Directive Yes / No Effective Date File Name No Information Encounters Encounter Description Practice Location Reason(s) For Visit Diagnoses Date Provider Providers Copied on Encounter OFFICE/OUTPATI ENT VISIT, [facility], [address], [place], [place], [address], [place] tel:[phone] [facility] No Information Saeid Valles. [address] [facility] [address], [place], [place], [address], [place]. tel:[phone] Referring Provider: Reena Breaux, [address] [facility] [address], [place], [address]. tel:[phone] OFFICE/OUTPATI ENT VISIT, [facility], [address] [place] [address] [address], [place], [place], [address], [place] tel:[phone] [facility] [facility] No Information Saeid Valles. [address], [facility] [place], [address], [place]. tel:[phone] Referring Provider: Reena Breaux, [facility] [address], [place], [address]. tel:[phone] OFFICE/OUTPATI ENT VISIT, [facility], [address] [facility] [address], [place], [place], [address], [place] tel:[phone] [facility] No Information Saeid Valles. [address], [place], [place], [address], [place]. tel:[phone] Referring Provider: Reena Breaux, [facility] [address], [place], [address]. tel:[phone] [facility], [address] [place] [address] [address], [place], [place], [address], [place] tel:[phone] [facility] No Information Saeid Valles. [address], [place], [place], [address], [place]. tel:[phone] Referring Provider: Reena Breaux, [facility] [address], [place], [address]. tel:[phone] [facility], [address] [place] [address] [address], [place], [place], [address], [place] tel:[phone] [facility] No Information Saeid Valles. [address], [place], [place], [address], [place]. tel:[phone] Referring Provider: Reena Breaux, [facility] [address], [place], [address]. tel:[phone] [employer] [facility], [address] [place] [address] [address], [place], [place], [address], [place] tel:[phone] [facility] IP No Information Robert Mcmahon. [address] [facility] [address], [place], [place], [address], [place]. tel:[phone] Referring Provider: Lisandro Lieberman, [address] [facility] [address], [place], [address]. tel:[phone] [employer] [facility], [address] [place] [address] [address], [place], [place], [address], [place] tel:[phone] [facility] IP No Information Saeid Valles. [address] [facility] [address], [place], [place], [address], [place]. tel:[phone] Referring Provider: Reena Breaux, [address] [place] [address] [address], [place], [address]. tel:[phone] OFFICE/OUTPATI ENT VISIT, [facility] [facility], [address] [place] [address] [address], [place], [place], [address], [place] tel:[phone] [facility] No Information Robert Mcmahon. [address] [facility] [address], [place], [place], [address], [place]. tel:[phone] Referring Provider: Lisandro Lieberman, [address] [facility] [address], [place], [address]. tel:[phone] PSYCH DIAGNOSTIC EVALUATION [facility] [employer] [facility], [address] [place] [address] [address], [place], [place], [address], [place] tel:[phone] [facility] No Information Omari Beltran. [address] [facility] [address], [place], [place], [address], [place]. tel:[phone] Referring Provider: Ruby Salcido, [address] [place] [address] [address], [place], [address]. tel:[phone] OFFICE/OUTPATI ENT VISIT, [facility], [address], [place], [place], [address], [place] tel:[phone] [facility] No Information Robert Mcmahon. [address] [facility] [address], [place], [place], [address], [place]. tel:[phone] Referring Provider: Lisandro Lieberman, [address] [facility] [address], [place], [address]. tel:[phone] Family History Family Member Type Diagnosis Age At Onset No Information Payers Payer name Insurance type Covered libertarian ID Bernice harley(gilmar) Capo [id number] Social History Type Description Quantity Date Captured [...]
--- OUTSIDE RECORDS SUMMARY | 2025-04-10 15:00 | XMS_ITS | Encounter Summary ---
Author Organization [facility] Address [address] [place] [address] Care Team Providers Care Construction Stonemason Name Role Phone Unallocated, Noms Provider Primary Care Provi chrissy Amalia Bruce GAS STATION OPERATOR Unavailable [phone] Encounter Details Date Type Department Care Team (Late st Contact Info) Description 04/10/2025 3:00 PM EDT Routine [facility] O[facility] [address] [place] [address] Roscoe Diaz DO [address] [facility] [address] [facility] [address] [place] Johnson, [id number] 34 weeks gestation of ([facility]); Third trimester ([facility]); H/O gastric sleeve; Insulin controlled gestational diabetes mellitus (GDM) during , antepartum ([facility]) Social History Tobacco Use Types Packs/Day [...] 81 mg, Daily Blood Glucose Monitoring Suppl ([employer] Glucometer) w/Device kit 1 kit, Does not [...] nursing note reviewed. Exam conducted with a powerbuilder present. Vitals: Estimated body mass index is 37.22 kg/m?? as calculated from the following: Height as of 24: 5' 3 . Weight as of this encounter: 210 lb 1.9 oz. BP: 120/70 Patient's last menstrual period was 08/12/2024. ASSESSMENT & PLAN ICD-10-CM 1. 34 weeks gestation of ([facility]) Z3A.34 POCT urinalysis dipstick manually resulted 2. Third trimester ([facility]) Z34.93 POCT urinalysis dipstick manually resulted 3. H/O gastric sleeve Z90.3 4. Insulin controlled gestational diabetes mellitus (GDM) during , antepartum ([facility]) O24.414 Return OB: Patient presents today for [...] AM EDT Routine [facility] [address] [place] [phone] Roscoe Diaz DO [address] [facility] [place] [address] documented as of this encounter Goals Goal Patient Goal Type Associated Problems Recent Progress Patient-Stated? Author Reminders Care Plan OB Reminders No Open Scheduling, Background documented as of this encounter Procedures Procedure Name Priority Date/Time Associated Diagnosis Comments POCT URINALYSIS DIPSTICK Routine 04/10/2025 3:21 PM EDT 34 weeks gestation of ([facility]) Third trimester ([facility]) documented in this encounter Results * [...] Visit Diagnoses Diagnosis 34 weeks gestation of ([facility]) Third trimester ([facility]) state, incidental H/O gastric sleeve Insulin controlled gestational diabetes mellitus (GDM) during , antepartum ([facility]) documented in this encounter Additional Health Concerns Active Problems Noted Date Diagnosed Date OB Reminders 10/19/2024 documented as of this encounter Care Teams Construction Stonemason Relationship Specialty Start Date End Date Unallocated, Noms Provider, [address] [place] [address] PCP - General Family Medicine 10/17/23 Amalia Bruce NP [address] [place] [address] PCP - Capo Wild 09/22/24 documented as of this encounter
--- OUTSIDE RECORDS SUMMARY | 2025-04-23 15:57 | XMS_ITS | Encounter Summary ---
Author Organization [facility] Zoona [facility] tem Address [id number] [address] [place] [address] Care Team Providers Care Metal Door Assembler Name Role Phone Unavailable Primary Care Provider Unavailabl e Encounter Details Date Type Department Care Team (Late st Contact Info) Description 02/07/2025 Orders Only Maternal- Medicine at [facility] [address] [place] [phone] Ref Prov, [place] [address] Social History Tobacco Use Types Packs/Day Years [...] 9:30 AM EDT Telemedicine Maternal- Medicine at [facility] [address] [place] [phone] Marilia Dillon, HEAD GOLF PROFESSIONAL-CURTAIN ROLLER ASSEMBLER [address] [place] [address] documented as of this encounter Procedures Procedure [...] Madelaine l Result MANUALLY TRANSCRIBED RESULTS * Unlisted Genetic Test (02/07/2025 10:32 AM EDT) us Not In System Ref Prov LAB BLOOD ORDERABLES Madelaine l Result MANUALLY TRANSCRIBED RESULTS documented in this encounter Visit Diagnoses Not on filedocumented in this encounter
--- OUTSIDE RECORDS SUMMARY | 2025-04-23 15:57 | XMS_ITS | Encounter Summary ---
Author Organization [facility] Address [address] [place] [address] Care Team Providers Care Joint Runner Name Role Phone Unallocated, Noms Provider Primary Care Provi chrissy Amalia Bruce SHINGLE SAWYER Unavailable [phone] Encounter Details Date Type Department Care Team (Late st Contact Info) Description 12/26/2024 Orders Only CHIARA CAAL [address] [place] [address] Iman Saldana LPN [address] [place] [id number] Social History Tobacco Use Types Packs/Day Years [...] 11:30 AM EDT Routine NOMHorace CAAL [address] [place] [id number] Rsocoe Diaz DO [address] [facility] [address] [place] [address] documented as of this encounter Goals Goal [...] documented as of this encounter Care Teams Joint Runner Relationship Specialty Start Date End Date Unallocated, Noms Provider, [address] [address] PCP - General Family Medicine 10/17/23 Amalia Bruce, TONIA [address] [place] [address] PCP - [place] 09/22/24 documented as of this encounter
--- OUTSIDE RECORDS SUMMARY | 2025-04-23 15:57 | XMS_ITS | Encounter Summary ---
Author Organization [facility] Address [address] [place] [address] Care Team Providers Care Transmission And Coordination Engineer Name Role Phone Dasha Lujan MD Primary Care Provider Sonia Dickerson MEMBERSHIP SALES ADVISOR.ANTENNA SPECIALIST Unavailable Fatimah Geiger MEMBERSHIP SALES ADVISOR.ANTENNA SPECIALIST Unavailable Ruth Richardson MEMBERSHIP SALES ADVISOR.ANTENNA SPECIALIST Unavailable Berenice Rivas APRN.ANTENNA SPECIALIST Unavailable Zarina Pope PA-C Unavailable Source Comments In the event this information is protected by the Federal Confidentiality of Alcohol and Drug AbusePatient Records regulations: The Federal rules restrict any use of the information to criminally investigate or prosecute any alcohol or drug abuse patient.[facility] Encounter Details Date Type Department Care Team (Late st Contact Info) Description 06/12/2024 Patient Msg Internal Medicine [address] [place] [address] Berenice Rivas APRN.ANTENNA SPECIALIST [address] [place] [address] Appointment Request Social History Tobacco Use Types Packs/Day Years Used Date Smoking Tobacco: Never Smokeless Tobacco: Never Alcohol Use Standard Drinks/Week Comments Yes 1.3 (1 standard drink = 0.6 oz p ure alcohol) occ. drink [facility] Utilities Answer Date Recorded In the past 12 months has th e electric, gas, oil, or water [employer] threatened to shut off services in your [...] often do you attend chur ch or buddhist services? Never 07/19/2023 Do you belong to any clubs o r organizations such as mormon groups, unions, fraternal [...] Answer Date Recorded PHQ-2 score 0 07/22/2023 [facility] [place] of Occupat ional Health - Occupational Stress [...] is lower risk 8 07/19/2023 Data from: https://www.neighborhoodatlas.medicine.[facility].edu/. Last address used for calculation [address] [...] on filedocumented in this encounter Care Teams Transmission And Coordination Engineer Relationship Specialty [place] [address] [place] [address] PCP - General Internal Medicine 01/11/22 Sonia Dickerson, MEMBERSHIP SALES ADVISOR.ANTENNA SPECIALIST [address] [place] [address] Health Care Marketing Manager Internal Medicine 07/30/24 08/29/24 Fatimah Geiger, MEMBERSHIP SALES ADVISOR.ANTENNA SPECIALIST [address] [place] [address] Health Care Marketing Manager Internal Medicine 07/30/24 Ruth Richardson, MEMBERSHIP SALES ADVISOR.ANTENNA SPECIALIST [address] [place] [address] [facility] Internal Medicine 07/30/24 08/29/24 Berenice Rivas, MEMBERSHIP SALES ADVISOR.ANTENNA SPECIALIST [address] [place] [address] [facility] Internal Medicine 07/30/24 08/29/24 Zarina Pope PA-C [address] [place] [address] Health Care Marketing Manager Internal Medicine 07/30/24 08/29/24 documented as of this encounter
--- OUTSIDE RECORDS SUMMARY | 2025-04-23 15:57 | XMS_ITS | Encounter Summary ---
Author Organization [facility] Address [address] [place] [address] Care Team Providers Care Dietary Aid Name Role Phone Dasha Lujan MD Primary Care Provider Sonia Dickerson BELL NECK HAMMERER.NUTRITIONIST PUBLIC HEALTH Unavailable Fatimah Geiger BELL NECK HAMMERER.NUTRITIONIST PUBLIC HEALTH Unavailable Ruth Richardson BELL NECK HAMMERER.NUTRITIONIST PUBLIC HEALTH Unavailable Berenice Rivas APRN.NUTRITIONIST PUBLIC HEALTH Unavailable Zarina Pope PA-C Unavailable Source Comments In the event this information is protected by the Federal Confidentiality of Alcohol and Drug AbusePatient Records regulations: The Federal rules restrict any use of the information to criminally investigate or prosecute any alcohol or drug abuse patient.[facility] Encounter Details Date Type Department Care Team (Late st Contact Info) Description 06/18/2024 Patient Msg Internal Medicine [address] [place] [address] Berenice Rivas APRN.NUTRITIONIST PUBLIC HEALTH [address] [place] [address] Appointment Request Social History Tobacco Use Types Packs/Day Years Used Date Smoking Tobacco: Never Smokeless Tobacco: Never Alcohol Use Standard Drinks/Week Comments Yes 1.3 (1 standard drink = 0.6 oz p ure alcohol) occ. drink [facility] Utilities Answer Date Recorded In the past 12 months has th e electric, gas, oil, or water [employer] threatened to shut off services in your [...] often do you attend chur ch or jain services? Never 07/19/2023 Do you belong to [...] PHQ-2 score 0 07/22/2023 [facility] [place] of Occupat ional Health - Occupational Stress [...] place to sleep or slept in a halfway (including now)? No 07/19/2023 Area Deprivation Index Answer Date Vern rded National Score (1-100), lower number is lower ri sk 90 07/19/2023 State Score (1-10), lower number is lower risk 8 07/19/2023 Data from: https://www.neighborhoodatlas.medicine.[facility].edu/. Last address used for calculation [address] [...] on filedocumented in this encounter Care Teams Dietary Aid Relationship Specialty [place] [address] [place] [address] PCP - General Internal Medicine 01/11/22 Sonia Dickerson, BELL NECK HAMMERER.NUTRITIONIST PUBLIC HEALTH [address] [place] [address] Catering Attendant Internal Medicine 07/30/24 08/29/24 Fatimah Geiger, BELL NECK HAMMERER.NUTRITIONIST PUBLIC HEALTH [address] [place] [address] Catering Attendant Internal Medicine 07/30/24 Ruth Richardson, BELL NECK HAMMERER.NUTRITIONIST PUBLIC HEALTH [address] [place] [address] [facility] Internal Medicine 07/30/24 08/29/24 Berenice Rivas, BELL NECK HAMMERER.NUTRITIONIST PUBLIC HEALTH [address] [place] [address] [facility] Internal Medicine 07/30/24 08/29/24 Zarina Pope PA-C [address] [place] [address] Catering Attendant Internal Medicine 07/30/24 08/29/24 documented as of this encounter
--- OUTSIDE RECORDS SUMMARY | 2025-04-23 15:57 | XMS_ITS | Encounter Summary ---
Author Organization [facility] Address [facility] [place] [address] Care Team Providers Care Industrial Sociologist Name Role Phone Dasha Lujan MD Primary Care Provider Sonia Dickerson SALES ASSISTANTS AND SALESPERSONS.MAILROOM CLERK Unavailable Fatimah Geiger SALES ASSISTANTS AND SALESPERSONS.MAILROOM CLERK Unavailable Ruth Richardson SALES ASSISTANTS AND SALESPERSONS.MAILROOM CLERK Unavailable Berenice Rivas SALES ASSISTANTS AND SALESPERSONS.MAILROOM CLERK Unavailable Zarina Pope-C Unavailable Source Comments In the event this information is protected by the Federal Confidentiality of Alcohol and Drug AbusePatient Records regulations: The Federal rules restrict any use of the information to criminally investigate or prosecute any alcohol or drug abuse patient.[facility] Encounter Details Date Type Department Care Team (Late st Contact Info) Description 06/21/2023 Patient Msg Internal Medicine [address] [place] [address] Provider, Ccf APPOINTMENT CANCELED Social History Tobacco [...] How often do you attend chur or sabianist services? Never 01/12/2022 Do you belong to [...] Answer Date Recorded PHQ-2 score 0 01/12/2022 [facility]at [facility] - [...] in a senior care (including now)? No 06/29/2022 Area Deprivation Index Answer Date Vern rded National Score (1-100), lower number is lower ri sk 70 09/03/2022 State Score (1-10), lower number is lower risk N ot on file 09/03/2022 Data from: https://www.neighborhoodatlas.medicine.[facility].edu/. Last address used for calculation Tari Tanner [...] on filedocumented in this encounter Care Teams Industrial Sociologist Relationship Specialty [place] [address] [place], [place] [id number] PCP - General Internal Medicine 01/11/22 Sonia Dickerson APRN.CNP [address] [place] [address] Sheet Manager Internal Medicine 07/30/24 08/29/24 Fatimah Geiger, SALES ASSISTANTS AND SALESPERSONS.MAILROOM CLERK [address] [place] [address] [facility] Internal Medicine 07/30/24 Ruth Richardson APRN.MAILROOM CLERK [address] [place] [address] [facility] Internal Medicine 07/30/24 08/29/24 Berenice Rivas, SALES ASSISTANTS AND SALESPERSONS.MAILROOM CLERK [address] [place] [address] [facility] Internal Medicine 07/30/24 08/29/24 Zarina Pope PA-C [address] [place] [address] [facility] Internal Medicine 07/30/24 08/29/24 documented as of this encounter
--- OUTSIDE RECORDS SUMMARY | 2025-04-23 15:57 | XMS_ITS | Encounter Summary ---
Author Organization [facility] Address [address] [place] [address] Care Team Providers Care Personnel Administrator Name Role Phone Unallocated, Noms Provider Primary Care Provi chrissy Amalia Bruce SAFETY MANAGER Unavailable [phone] Encounter Details Date Type Department Care Team (Late Contact Info) Description 10/29/2024 Abstract [facility]IARA CAAL [address] [place] [address] Roscoe Diaz DO [address] [place] [address] Social History Tobacco Use Types Packs/Day Years [...] CAAL [address] [place] [phone] Roscoe Diaz DO [address] [place] [address] documented as of this encounter Goals Goal Patient Goal Type Associated Problems Recent Progress Patient-Stated? Author Reminders Care Plan OB Reminders No Open Scheduling, Background documented as of this encounter Visit Diagnoses Not on filedocumented in this encounter Additional Health Concerns Active Problems Noted Date Diagnosed Date OB Reminders 10/19/2024 documented as of this encounter Care Teams Personnel Administrator Relationship Specialty Start Date End Date Unallocated, Nomgilmar Provider, [address] [place], [place] [phone] PCP - General Family Medicine 10/17/23 Amalia Bruce, TONIA [address] [place] [address] PCP - Capo Commercial 09/22/24 documented as of this encounter
--- OUTSIDE RECORDS SUMMARY | 2025-04-23 15:57 | XMS_ITS | Encounter Summary ---
Author Organization [facility] tem Address [id number] [address] [place] [address] Care Team Providers Care Head Of Integrated Media Name Role Phone Unavailable Primary Care Provider Unavailabl e Encounter Details Date Type Department Care Team (Late st Contact Info) Description 04/09/2025 Telephone Maternal- Medicine at [facility] [address] [place] [phone] Devika Pope, JOEL [address] [place] [address] Social History Tobacco Use Types Packs/Day Years [...] to schedule a follow-up visit with a [facility] provider for the second week in April. documented in this encounter Plan of Treatment Upcoming Encounters Date Type Department Care Team (Late st Contact Info) Description 05/01/2025 9:30 AM EDT Telemedicine Maternal- Medicine at [facility] [address] [place] [address] Marilia Dillon, PRINTING ESTIMATOR-PROP MAKING SUPERVISOR [address] [place] [address] documented as of this encounter Visit Diagnoses Not on filedocumented in this encounter
--- OUTSIDE RECORDS SUMMARY | 2025-04-23 15:57 | XMS_ITS | Encounter Summary ---
Author Organization [facility] Address [address] [place] [address] Care Team Providers Care Construction Executive Name Role Phone Unallocated, Noms Provider Primary Care Provi chrissy Amalia Bruce PROFESSOR OF SURGERY Unavailable [phone] Encounter Details Date Type Department Care Team [...] Routine [facility] [address] [place] [address] Roscoe Diaz DO [address] [place], [place] [phone] documented as of this encounter Goals Goal Patient Goal Type Associated Problems Recent Progress Patient-Stated? Author Reminders Care Plan OB Reminders No Open Scheduling, Background documented as of this encounter Visit Diagnoses Not on filedocumented in this encounter Additional Health Concerns Active Problems Noted Date Diagnosed Date OB Reminders 10/19/2024 documented as of this encounter Care Teams Construction Executive Relationship Specialty Start Date End Date Unallocated, Noms Provider, [address] [place] [address] PCP - General Family Medicine 10/17/23 Amalia Bruce, TONIA [address] [place] [address] PCP - Capo Wild 09/22/24 documented as of this encounter
--- OUTSIDE RECORDS SUMMARY | 2025-04-23 15:57 | XMS_ITS | Encounter Summary ---
Author Organization [facility] tem Address [id number] [address] [place] [address] Care Team Providers Care Dispensing Audiologist Name Role Phone Unavailable Primary Care Provider Unavailabl e Encounter Details Date Type Department Care Team (Late Contact Info) Description 04/15/2025 Telephone Maternal- Medicine at [facility] [address] [facility] [place] [phone] Beulah Miller, RN Social History Tobacco Use [...] Telemedicine Maternal- Medicine at [facility] [address] [place] [address] Marilia Dillon, SHIPPING TRACK SUPERVISOR-VOCATIONAL COORDINATOR [address] [place] [address] documented as of this encounter Visit Diagnoses Not on filedocumented in this encounter
--- OUTSIDE RECORDS SUMMARY | 2025-04-23 15:57 | XMS_ITS | Encounter Summary ---
Author Organization [facility] Address [address] [place] [address] Care Team Providers Care Healthcare Associate Name Role Phone Unallocated, Noms Provider Primary Care Provi chrissy Amalia Bruce FLUE DUST LABORER Unavailable [phone] Encounter Details Date Type Department Care Team (Late st Contact Info) Description 04/10/2025 Bamboo flowsheet CHIARA CAAL [address] [place] [address] Roscoe Diaz DO [address] [facility] [address] [place], [facility] Social History Tobacco Use Types Packs/Day Years [...] 11:30 AM EDT Routine CHIARA SILVAGYN [address] [place] [phone] Roscoe Diaz DO [address] [place] [address] documented as of this encounter Goals Goal Patient Goal Type Associated Problems Recent Progress Patient-Stated? Author Reminders Care Plan OB Reminders No Open Scheduling, Background documented as of this encounter Visit Diagnoses Not on filedocumented in this encounter Additional Health Concerns Active Problems Noted Date Diagnosed Date OB Reminders 10/19/2024 documented as of this encounter Care Teams Healthcare Associate Relationship Specialty Start Date End Date Unallocated, Noms Provider, MD [address] [place], [place] [phone] PCP - General Family Medicine 10/17/23 Amalia Bruce, TONIA [address] [place] [address] PCP - Capo Wild 09/22/24 documented as of this encounter
--- OUTSIDE RECORDS SUMMARY | 2025-04-23 15:57 | XMS_ITS | Clinical Summary ---
Author Organization [facility] Address [facility][id number] [address] [place] [address] Care Team Providers Care Corporate Legal Intern Name Role Phone Unavailable Primary Care Provider Unavailabl e Allergies No known active allergies Medications 25-IRON OQQ-[id number]-XDC ORAL Take 1 tablet by mouth in [...] Encounters Date Type Department Care Team Description 04/23/2025 Telephone Maternal- Medicine at [facility] [address] [place] [address] Devika Pope LD 04/15/2025 Telephone Maternal- Medicine at [facility] [address] [place] [address] Beulah Miller, KARISSA 04/09/2025 Telephone Maternal- Medicine at [facility] [address] [place] [address] Devika Pope, JOEL 04/01/2025 10:00 AM EDT Telemedicine Maternal- Medicine at [facility] [address] [place] [address] Daisha Morel PA-C Gestational diabetes requiring insulin (Primary Dx) 04/01/2025 Telephone Maternal- Medicine at [facility] [address] [place] [address] Blanquita Toney, KARISSA 04/01/2025 Travel 04/01/2025 Telephone Maternal- Medicine at [facility] [address] [place] [address] Blanquita Toney, KARISSA 03/26/2025 Telephone Maternal- Medicine at [facility] [address] [place] [address] Devika Pope, JOEL 03/19/2025 Telephone Maternal- Medicine at [facility] [address] [place] [address] Fatimah Ball LD 03/12/2025 1:30 PM EDT Office Visit Maternal- Medicine at [facility] [address] [place] [address] Daisha Morel, PA-C Gestational diabetes mellitus (GDM) in second trimester, gestational diabetes method of control unspecified (Primary Dx); Gestational diabetes requiring insulin 03/12/2025 Travel 03/05/2025 Telephone Maternal- Medicine at [facility] [address] [place] [address] Devika Pope LD 02/26/2025 Telephone Maternal- Medicine at [place] [address] [place] [address] Devika Pope LD 02/14/2025 1:30 PM EDT Support Visit Maternal- Medicine at [address] [phone] Hien Giles RN Karl, Deborah, LD Gestational diabetes mellitus (GDM) in second trimester, gestational diabetes method of control unspecified (Primary Dx) 02/13/2025 Travel 02/07/2025 Orders Only Maternal- Medicine at [address] [phone] Ref Prov, Not In System 02/07/2025 Abstract Maternal- Medicine at [address] [phone] External, Scanning Provider from Last 3 Months [...] 9:30 AM EDT Telemedicine Maternal- Medicine at [facility] [address] [place] [address] Marilia Dillon, LEAD INSPECTOR-RETAIL CUSTOMER SERVICE SPECIALIST [address] [place] [address] Health Maintenance Due Date Last Done Comments [...] ORDERABLES Final Re sult Performing Organization Address [facility] Co de Phone Number MANUALLY TRANSCRIBED [...] ORDERABLES Madelaine l Result Performing Organization Address [facility] Co de Phone Number MANUALLY TRANSCRIBED RESULTS * Glucose 1h post 50g load (02/01/2025) Glucose, 1 hr PP 50GM dose 198 MANUALLY TRANSCRIBED RESULTS Blood Venous blood / Unknown us Not In System Ref Prov LAB BLOOD ORDERABLES Madelaine l Result Performing Organization Address [facility] Co de Phone Number MANUALLY TRANSCRIBED RESULTS * Hemoglobin and hematocrit, blood (02/01/2025) Hemoglobin 11.5 MANUALLY TRANSCRIBED RESULTS Hematocrit 33.9 MANUALLY TRANSCRIBED RESULTS Blood Venous blood / Unknown us Not In System Ref Prov LAB BLOOD ORDERABLES Madelaine l Result Performing Organization Address [facility] Co de Phone Number MANUALLY TRANSCRIBED RESULTS from Last 3 Months Insurance [facility]
--- OUTSIDE RECORDS SUMMARY | 2025-04-23 15:57 | XMS_ITS | Encounter Summary ---
Author Organization [facility] Address [address] [place] [address] Care Team Providers Care Brake Repairer Railroad Name Role Phone Unallocated, Noms Provider Primary Care Provi chrissy Amalia Bruce CUSTOMS AND BORDER PROTECTION INSPECTOR Unavailable [phone] Reason for Visit * Reason Onset Date Comments Med Refill 10/23/2024 Encounter Details Date Type Department Care Team (Late Contact Info) Description 10/23/2024 Refill [facility] [address] [facility] [address] [place] [address] Unallocated, Noms Provider, [address] [place] [address] Social History Tobacco Use Types Packs/Day Years [...] [facility] [address] [facility] [place] [phone] Roscoe Diaz DO [address] [place] [address] documented as of this encounter Goals Goal Patient Goal Type Associated Problems Recent Progress Patient-Stated? Author Reminders Care Plan OB Reminders No Open Scheduling, Background documented as of this encounter Visit Diagnoses Not on filedocumented in this encounter Additional Health Concerns Active Problems Noted Date Diagnosed Date OB Reminders 10/19/2024 documented as of this encounter Care Teams Brake Repairer Railroad Relationship Specialty Start Date End Date Unallocated, Noms Provider, [address] [place] [address] PCP - General Family Medicine 10/17/23 Amalia Bruce, TONIA [address] [place] [address] PCP - Capo Commercial 09/22/24 documented as of this encounter
--- OUTSIDE RECORDS SUMMARY | 2025-04-23 15:57 | XMS_ITS | Encounter Summary ---
Author Organization [facility] tem Address [facility][id number] [address] [place] [address] Care Team Providers Care Critical Care Unit Nurse Name Role Phone Unavailable Primary Care Provider Unavailabl e Encounter Details Date Type Department Care Team (Late st Contact Info) Description 04/23/2025 Telephone Maternal- Medicine at [facility] [address] [place] [phone] Devika Pope, JOEL [address] [place] [address] Social History Tobacco Use Types Packs/Day Years [...] * Telephone Encounter - JOEL Oakes - 04/23/2025 12:38 PM EDT Called regarding blood sugar logs from 04/15/25-04/21/25 but received voicemail. Caryl had two elevated blood sugars after lunch and two elevated blood sugars after dinner. She did make notes and it sounds like she had higher carb meals. Encouraged to try to keep lunch and dinner to 45 grams of carbohydrate. Possibly adding more non starchy vegetables at those meals and less carbs. Continue to monitor blood sugars and send in blood sugars weekly. documented in this encounter Plan of Treatment Upcoming Encounters Date Type Department Care Team (Late st Contact Info) Description 05/01/2025 9:30 AM EDT Telemedicine Maternal- Medicine at [facility] [address] [place] [address] Marilia Dillon, FUR CUTTER-TYPE CUTTER [address] [place] [address] documented as of this encounter Visit Diagnoses Not on filedocumented in this encounter
--- OUTSIDE RECORDS SUMMARY | 2025-04-23 15:57 | XMS_ITS | Encounter Summary ---
Author Organization [facility] Address [address] [place] [address] Care Team Providers Care Picker Operator Name Role Phone Unallocated, Noms Provider Primary Care Provi chrissy Amalia Bruce BEEF PLUCK TRIMMER Unavailable [phone] Encounter Details Date Type Department Care Team (Late st Contact Info) Description 04/08/2025 Clinisync Result Encounter [facility] External Department Unsolicited Rosy Quiroz PA [address] [place] [address] Social History Tobacco Use Types Packs/Day Years [...] AM EDT Routine [facility] [address] [email or web address] [phone] Roscoe Diaz, DO [address] [facility] [address] [place] [phone] documented as of this encounter Goals Goal [...] EDT Narrative 04/08/2025 8:39 PM EDT The [address] [address] Ultrasound Report Signed Patient: TRUDI ZAMARRIPA MR#: [id number] : 1990 Acct:[id number] Age/Sex: 34 / F ADM Date: 04/08/25 Loc: US Attending Dr: Rosy Quiroz Ordering Physician: Rosy Quiroz Date of Service: 04/08/25 Procedure(s): US OB BPP w non-stress Accession Number(s): [id number] cc: Rosy Quiroz; Physician,Non-Staff M.D. The [address] [address] Patient Name: TRUDI ZAMARRIPA MRN: [id number] date: 1990 Sex: F Assigned Patient Location: [facility] Current Patient Location: Accession/Order Number: [id number] Exam Date: 04/08/2025 20:36 Report Date: 04/08/2025 [...] Briscoe M.D. 04/08/2025 8:37 PM [facility]ation [facility] Electron[facility] authenticated by: [id number] Y Date: 04/08/2025 20:37 Dictated By: Suraj Briscoe D.O. Signed By: 04/08/252038 DD/ 36 TD/TT: Machine Cutter: Procedure Note Radiology, Radiologist, MD - 04/08/2025 [place] [address] Ultrasound Report Signed Patient: TRUDI ZAMARRIPA JMR#: [id number] : 1990Acct:[id number] Age/Sex: 34 / FADM Date: 04/08/25 Loc: US Attending Dr: Rosy Quiroz Ordering Physician: Rosy Quiroz Date of Service: 04/08/25 Procedure(s): US OB BPP w non-stress Accession Number(s): [id number] cc: Rosy Quiroz; Physician,Non-Staff Shimon The [place] [id number] Patient Name: TRUDI ZAMARRIPA MRN: [id number] date: 1990 Sex: F Assigned Patient Location: [facility] Current Patient Location: Accession/Order Number: [id number] Exam Date: 04/08/2025 20:36 Report Date: 04/08/2025 [...] Briscoe M.D. 04/08/2025 8:37 PM Dictation [facility] Electron[facility] authenticated by: [id number] Y Date: 0:37 Dictated By: Suraj Briscoe D.O. Signed By:04/08/252038 DD/ 36 TD/TT: Machine Cutter: Rosy [facility] Final Result documented in this encounter Visit Diagnoses Not on filedocumented in this encounter Additional Health Concerns Active Problems Noted Date Diagnosed Date OB Reminders 10/19/2024 documented as of this encounter Care Teams Picker Operator Relationship Specialty Start Date End Date Unallocated, Noms Provider, [address] [place], [place] [phone] PCP - General Family Medicine 10/17/23 Amalia Bruce NP [address] [place] [address] PCP - Capo Wild 09/22/24 documented as of this encounter
--- OUTSIDE RECORDS SUMMARY | 2025-04-23 15:58 | XMS_ITS | Encounter Summary ---
Author Organization [facility] Address [address] [place] [address] Care Team Providers Care Accounting Representative Name Role Phone Dasha Lujan MD Primary Care Provider Sonia Dickerson BANQUET COOK.TENTERER Unavailable Fatimah Geiger BANQUET COOK.TENTERER Unavailable Ruth Richardson BANQUET COOK.TENTERER Unavailable Berenice Rivas APRN.TENTERER Unavailable Zarina Pope PA-C Unavailable Source Comments [...] Info) Description 06/18/2024 Patient Msg Internal Medicine [address] [place] [address] Berenice Rivas APRN.TENTERER [address] [place] [address] Appointment Request Social History Tobacco Use Types Packs/Day Years Used Date Smoking Tobacco: Never Smokeless Tobacco: Never Alcohol Use Standard Drinks/Week Comments Yes 1.3 (1 standard drink = 0.6 oz p ure alcohol) occ. drink [facility] Utilities Answer Date Recorded In the past 12 months has th e electric, gas, oil, or water [employer] threatened to shut off services in your [...] any clubs o r organizations such as jew groups, unions, fraternal or athletic groups, or [...] Answer Date Recorded PHQ-2 score 0 07/22/2023 [facility] of Occupat ional Health - Occupational Stress [...] slept in a long-term (including now)? No 07/19/2023 Area Deprivation Index Answer Date Vern rded National Score (1-100), lower number is lower ri sk 90 07/19/2023 State Score (1-10), lower number is lower risk 8 07/19/2023 Data from: https://www.neighborhoodatlas.medicine.[facility].edu/. Last address used for calculation [address] [...] on filedocumented in this encounter Care Teams Accounting Representative Relationship Specialty [place] [address] [place] [address] PCP - General Internal Medicine 01/11/22 Sonia Dickerson, BANQUET COOK.TENTERER [address] [place] [address] Experimental Box Tester Internal Medicine 07/30/24 08/29/24 Fatimah Geiger, BANQUET COOK.TENTERER [address] [place] [address] Experimental Box Tester Internal Medicine 07/30/24 Ruth Richardson, BANQUET COOK.TENTERER [address] [place] [address] [facility] Internal Medicine 07/30/24 08/29/24 Berenice Rivas, BANQUET COOK.TENTERER [address] [place] [address] [facility] Internal Medicine 07/30/24 08/29/24 Zarina Pope PA-C [address] [place] [address] Experimental Box Tester Internal Medicine 07/30/24 08/29/24 documented as of this encounter
--- OUTSIDE RECORDS SUMMARY | 2025-04-23 15:58 | XMS_ITS | Clinical Summary ---
Author Organization [facility] Address [address] [place] [address] Care Team Providers Care Scroll Saw Operator Name Role Phone Unallocated, Noms Provider Primary Care Provi chrissy Amalia Bruce CONSTRUCTION ENGINEER Unavailable [phone] Allergies No known active allergies Medications omeprazole OTC (PriLOSEC OTC) 20 MG EC tablet Take 20 mg by mouth in the morning. Take before meals. Do not crush, chew, or split.. Active Vit-Fe Fumarate-FA ( 19) 29-1 MG chewable tabletIndication s:, unspecified gestational age ([facility]) Chew 1 each Daily 30 tablet 11 5 Active Alcohol Swabs (Alcohol Prep Pad) 70 % padsIndications: Gestational diabetes mellitus (GDM), antepartum, gestational diabetes method of control unspecified ([facility]),Elevat ed glucose tolerance test Apply 1 Pad topically Daily Use four times daily to check FSBS. 150 each 3 5 Active Blood Glucose Monitoring Suppl (D-Care Glucometer) w/Device kitIndications:G estational diabetes mellitus (GDM), antepartum, gestational diabetes method of control unspecified ([facility]),Elevat ed glucose tolerance test 1 kit [...] [place] [address] Roscoe Diaz, 34 weeks gestation of ([facility]); Third trimester ([facility]); H/O gastric sleeve; Insulin controlled gestational diabetes mellitus (GDM) during , antepartum ([facility]) 04/10/2025 [place] [address] Roscoe Diaz DO 04/08/2025 10:00 AM EDT [place]illary [place] [address] H/O gastric sleeve 04/08/2025 Clinisync Result Encounter NOMS External Department Unsolicited Rosy Quiroz PA 04/06/2025 Travel 04/05/2025 Telephone [facility] [address] [place] [address] Monika Mesa LPN 04/01/2025 Clinisync Result Encounter NOMS External Department Unsolicited Rosy Quiroz PA 03/28/2025 Telephone [facility] [address] [place] [address] Jes Garza MA 03/27/2025 2:00 PM [place] [address] Roscoe Diaz, Third trimester ([facility]); H/O gastric sleeve; Gestational diabetes mellitus (GDM), antepartum, gestational diabetes method of control unspecified ([facility]); 32 weeks gestation of ([facility]) 03/27/2025 Bamboo flowsheet N[facility] [place] [address] Roscoe Diaz DO 03/27/2025 Travel 03/13/2025 3:50 PM EDT Routine [facility] Antonio [facility] [address] Rosy Quiroz PA 30 weeks gestation of ([facility]); Third trimester ([facility]); H/O gastric sleeve; Gestational diabetes mellitus (GDM), antepartum, gestational diabetes method of control unspecified ([facility]) 03/13/2025 Bamboo flowsheet CHIARA [place] [address] Rosy Quiroz PA 03/10/2025 Travel 02/27/2025 1:40 PM EDT Routine [facility] [place] Antonio [facility] [place] [address] Roscoe Diaz DO 28 weeks gestation of ([facility]); Third trimester ([facility]); H/O gastric sleeve; Gestational diabetes mellitus (GDM), antepartum, gestational diabetes method of control unspecified ([facility]) 02/27/2025 1:00 PM EDT Ancillary Procedure [facility] [address] H/O gastric sleeve 02/26/2025 Travel 02/11/2025 11:30 [place] [address] Rosy Quiroz PA Second trimester ([facility]); 26 weeks gestation of ([facility]); H/O gastric sleeve 02/11/2025 Travel 02/06/2025 Abstract [facility] [place] [address] Roscoe Diaz, DO 02/04/2025 Telephone [facility] OB[address]ELISN [address] [facility] [address] Monika Mesa LPN 02/04/2025 Results Follow-Up [facility] AVILEZN [address] [facility] [address] Monika Mesa, CLIENT EXPERIENCE CONSULTANT ALL CBC WITH AUTO DIFF, GLUCOSE 1 HOUR 02/01/2025 Telephone [facility] [place] [address] [address] [facility] [address] Ana Costello MA 02/01/2025 Clinisync Result Encounter NOMS External Department Unsolicited Roscoe Diaz, DO 01/30/2025 1:00 PM EDT Ancillary Procedure [facility] [place] [address] [address] [facility] [address] Encounter for follow-up ultrasound of anatomy ([facility]) 01/27/2025 Travel from Last 3 Months Family [...] AM EDT Routine [facility] [address] [facility] [place] [phone] Roscoe Diaz DO [address] [facility] [place] [address] Health Maintenance Due Date Last Done Comments [...] 3:21 PM EDT 34 weeks gestation of ([facility]) Third trimester ([facility]) US OB BPP W NON-STRESS 04/08/2025 8:37 PM EDT US OB FOLLOW UP TRANSABDOMINAL APPROACH Routine 04/08/2025 10:27 AM EDT H/O gastric sleeve US OB BPP W NON-STRESS 04/01/2025 3:29 PM EDT POCT URINALYSIS DIPSTICK Routine 03/27/2025 2:49 PM EDT Third trimester ([facility]) H/O gastric sleeve Gestational diabetes mellitus (GDM), antepartum, gestational diabetes method of control unspecified ([facility]) 32 weeks gestation of ([facility]) POCT URINALYSIS DIPSTICK Routine 03/13/2025 3:46 PM EDT 30 weeks gestation of ([facility]) Third trimester ([facility]) POCT URINALYSIS DIPSTICK Routine 02/27/2025 2:04 PM EDT 28 weeks gestation of ([facility]) Third trimester ([facility]) US OB FOLLOW UP TRANSABDOMINAL APPROACH Routine 02/27/2025 1:40 PM EDT H/O gastric sleeve POCT URINALYSIS DIPSTICK Routine 02/11/2025 11:50 AM EDT Second trimester ([facility]) GLUCOSE 1 HOUR Routine 02/01/2025 9:28 AM EDT ALL CBC WITH AUTO DIFF Routine 9:28 AM EDT US OB LIMITED 1+ FETUSES Routine 01/30/2025 1:20 PM EDT Encounter for follow-up ultrasound of anatomy ([facility]) PAP SMEAR Routine 12/10/2024 12:00 AM EDT from Last 3 Months or Most Recently Relevant to Health Maintenance Results * US OB BPP W NON-STRESS (04/15/2025 4:16 PM EDT) Only the most recent of3 resultswithin the time period is included. Anatomical Region Laterality Modality Other 04/15/2025 4:16 PM EDT Narrative 04/15/2025 4:19 PM EDT The [address] [address] Ultrasound Report Signed Patient: TRUDI ZAMARRIPA MR#: [id number] : 1990 Acct:[id number] Age/Sex: 34 / F ADM Date: 04/15/25 Loc: US Attending Dr: Rosy Quiroz Ordering Physician: Rosy Quiroz Date of Service: 04/15/25 Procedure(s): US OB BPP w non-stress Accession Number(s): [id number] cc: Rosy Quiroz; Physician,Non-Staff M.D. The [place] [id number] Patient Name: TRUDI ZAMARRIPA MRN: [id number] date: 1990 Sex: F Assigned Patient Location: US Current Patient Location: Accession/Order Number: [id number] Exam Date: 04/15/2025 15:09 Report Date: 04/15/2025 16:16 At the request of: ROSY QUIROZ Procedure: US OB BPP w non-stress Biophysical profile. Reason for exam: History of gastric sleeve surgery COMPARISON: 04/08/2025 TECHNIQUE: Transabdominal imaging of the gravid uterus was obtained. FINDINGS: The usability specialist reports a BPP of 8 out of 8. HELLEN is normal at 17 cm. heart rate 136 bpm. US/US OB BPP w non-stress IMPRESSION: BPP 8 out of 8. Impression dictated by: Cy Jensen Jr., D.O. 04/15/2025 4:16 PM Dictation Location: [place] [address] Electronically authenticated by: [id number] Y Date: 04/15/2025 16:16 Dictated By: Cy Jensen M.D. Signed By: 04/15/25 1619 DD/ 15 TD/TT: Felting Machine Operator Helper: Procedure Note Radiology, Radiologist, MD - 04/15/2025 [place] [address] Ultrasound Report Signed Patient: TRUDI ZAMARRIPA JMR#: [id number] : 1990Acct:[id number] Age/Sex: 34 / FADM Date: 04/15/25 Loc: US Attending Dr: Rosy Quiroz Ordering Physician: Rosy Quiroz Date of Service: 04/15/25 Procedure(s): US OB BPP w non-stress Accession Number(s): [id number] cc: Rosy Quiroz; Physician,Non-Staff Shimon The [place] [address] Patient Name: TRUDI ZAMARRIPA MRN: [facility]:[id number] date: 1990 Sex: F Assigned Patient Location: US Current Patient Location: Accession/Order Number: [id number] Exam Date: 04/15/2025 15:09 Report Date: 04/15/2025 16:16 At the request of: ROSY QUIROZ Procedure: US OB BPP w non-stress Biophysical profile. Reason for exam: History of gastric sleeve surgery COMPARISON: 04/08/2025 TECHNIQUE: Transabdominal imaging of the gravid uterus was obtained. FINDINGS: The usability specialist reports a BPP of 8 out of 8. HELLEN is normal at17 cm. heart rate 136 bpm. US/US OB BPP w non-stress IMPRESSION: BPP 8 out of 8. Impression dictated by: Cy Jensen Jr., D.O. 04/15/2025 4:16 PM Dictation Location: [place] [address] Electronically authenticated by: [id number] Y Date: 6:16 Dictated By: Cy Jensen M.D. Signed By:04/15/25 1619 DD/ TD/TT: Felting Machine Operator Helper: us Rosy Quiroz PA [facility] Final [...] II, MD, PHD at 09-Apr-2025 07:59:18 AM [facility] Procedure Note Brittany Sebastian MD - [...] signed by BRITTANY SEBASTIAN II, MD, PHD [id number] 07:59:18 AM [facility] us Roscoe Joe DO IMG OB [...] AM EDT 02/01/2025 9:30 AM EDT Narrative ECCILIA - 02/01/2025 9:37 AM EDT us Roscoe [...] II, MD, PHD at 01-Feb-2025 10:22:21 AM [facility] Procedure Note Brittany Sebastian MD - [...] signed by BRITTANY SEBASTIAN II, MD, PHD [id number] 10:22:21 AM [facility] us Roscoe Joe DO IMG OB US PROCEDURES Final Resul t * Pap Smear (12/10/2024 12:00 AM EDT) Swab Cervical swab / Unknown Joe Nurse Noms Bcp Ob LAB CYTOLOGY ORDERABLES Final Result EXTERNAL LAB from Last 3 Months or Most Recently Relevant to Health Maintenance Additional Health Concerns Active Problems Noted Date Diagnosed Date OB Reminders 10/19/2024 Insurance [facility] Care Teams Scroll Saw Operator Relationship Specialty Start Date End Date Unallocated, Noms Herlinda, [address] [place] [address] PCP - General Family Medicine 10/17/23 Amalia Bruce NP [address] [place] [address] PCP - [place] [employer] 09/22/24
--- OUTSIDE RECORDS SUMMARY | 2025-04-23 15:58 | XMS_ITS | Encounter Summary ---
Author Organization [facility] Address [address] [place] [address] Care Team Providers Care Senior Tableau Developer Name Role Phone Unallocated, Noms Provider Primary Care Provi chrissy Amalia Bruce [employer] Unavailable [phone] Encounter Details Date Type Department Care Team (Late Contact Info) Description 01/09/2025 Abstract [facility] CAAL [address] [facility] [place] [address] Roscoe Diaz DO [address] [facility] [place] [address] Social History Tobacco Use Types Packs/Day Years [...] 11:30 AM EDT Routine CHIARA CAAL [address] [facility] [place] [phone] Roscoe Diaz DO [address] [facility] [place] [address] documented as of this encounter Goals Goal Patient Goal Type Associated Problems Recent Progress Patient-Stated? Author Reminders Care Plan OB Reminders No Open Scheduling, Background documented as of this encounter Visit Diagnoses Not on filedocumented in this encounter Additional Health Concerns Active Problems Noted Date Diagnosed Date OB Reminders 10/19/2024 documented as of this encounter Care Teams Senior Tableau Developer Relationship Specialty Start Date End Date Unallocated, [place] Provider, [address] [place], [place] [phone] PCP - General Family Medicine 10/17/23 Amalia Bruce, TONIA [address] [place] [address] PCP - [employer] 09/22/24 documented as of this encounter
--- OUTSIDE RECORDS SUMMARY | 2025-04-23 15:58 | XMS_ITS | Encounter Summary ---
Author Organization [facility] Address [address] [place] [address] Care Team Providers Care Retread Technician Name Role Phone Unallocated, Noms Provider Primary Care Provi chrissy Amalia Bruce VIBRATION ENGINEER Unavailable Encounter Details Date Type Department Care Team (Late st Contact Info) Description 02/04/2025 Results Follow-Up [facility] [place] [facility] [address] [facility] [place] [address] Monika Mesa LPN [address] [employer] [place] [id number] ALL CBC WITH AUTO DIFF, GLUCOSE 1 [...] AM EDT Routine [facility] [place] OBGYN [address] [facility] [place] [address] Roscoe Diaz DO [address] [facility] [place] [address] documented as of this encounter Goals Goal Patient Goal Type Associated Problems Recent Progress Patient-Stated? Author Reminders Care Plan OB Reminders No Open Scheduling, Background documented as of this encounter Visit Diagnoses Not on filedocumented in this encounter Additional Health Concerns Active Problems Noted Date Diagnosed Date OB Reminders 10/19/2024 documented as of this encounter Care Teams Retread Technician Relationship Specialty Start Date End Date Unallocated, Noms Herlinda, [address] [place] [address] PCP - General Family Medicine 10/17/23 Amalia Bruce, TONIA [address] [place] [address] PCP - [employer] 09/22/24 documented as of this encounter
--- OUTSIDE RECORDS SUMMARY | 2025-04-23 15:58 | XMS_ITS | Encounter Summary ---
Author Organization [facility] Address [address] [place] [address] Care Team Providers Care Primary Therapist Name Role Phone Unallocated, Noms Provider Primary Care Provi chrissy Amalia Bruce CORRECTIONS IDENTIFICATION TECHNICIAN Unavailable [phone] Encounter Details Date Type Department Care Team (Late Contact Info) Description 02/06/2025 Abstract [facility]AL [address] [facility] [place] [address] Roscoe Diaz DO [address] [facility] [place] [address] Social History Tobacco Use Types Packs/Day Years [...] CAAL [address] [place] [place] [address] Roscoe Diaz DO [address] [facility] [place] [address] documented as of this encounter Goals Goal Patient Goal Type Associated Problems Recent Progress Patient-Stated? Author Reminders Care Plan OB Reminders No Open Scheduling, Background documented as of this encounter Visit Diagnoses Not on filedocumented in this encounter Additional Health Concerns Active Problems Noted Date Diagnosed Date OB Reminders 10/19/2024 documented as of this encounter Care Teams Primary Therapist Relationship Specialty Start Date End Date Unallocated, [place] Provider, [address] [place], [place] [phone] PCP - General Family Medicine 10/17/23 Amalia Bruce, TONIA [address] [place] [address] PCP - [employer] 09/22/24 documented as of this encounter
--- OUTSIDE RECORDS SUMMARY | 2025-04-23 15:58 | XMS_ITS | Clinical Summary ---
Author Organization [facility] Address [address] [place] [address] Care Team Providers Care City Letter Carrier Name Role Phone Dasha Lujan MD Primary Care Provider [phone] Fatimah Geiger APRN.SEAT PACK INSPECTOR Unavailable [phone] Allergies No known active allergies Medications Omeprazole Magnesium (ACID GARMENT INSPECTOR, OMEPRAZOLE,) 20 mg cpDR 04/16/2022 Active Active [...] 0.6 oz p ure alcohol) occ. drink [employer]et[employer] Utilities Answer Date Recorded In the past 12 months has [employer], gas, oil, or water Where's Up threatened to shut off services in your [...] often do you attend chur ch or alevism services? Never 07/19/2023 Do you belong to any clubs o r organizations such as scientologist groups, unions, fraternal or athletic groups, or [...] Answer Date Recorded PHQ-2 score 0 06/29/2024 [place] [employer] of Occupat ional Health - Occupational Stress [...] Hepatitis C Screening Discontinued Insurance Care Teams City Letter Carrier Relationship Specialty [place] [address] [place], [place] [phone] PCP - General Internal Medicine 01/11/22 Fatimah Geiger APRN.SEAT PACK INSPECTOR [address] [place], [place] [phone] Flasher Adjuster Internal Medicine 07/30/24
--- NOTE | 2025-04-23 15:59 | US_ITS ---
The [address] [address] Patient Name: TRUDI ZAMARRIPA MRN: [id number] date: 1990 Sex: F Assigned Patient Location: US Current Patient Location: US Accession/Order Number: [id number] Exam Date: 04/23/2025 16:03 Report Date: 04/23/2025 16:35 At the request of: MAULIK QUIROZ Procedure: US OB BPP w non-stress Biophysical profile. Reason for exam: History of gastric sleeve surgery COMPARISON: 04/15/2025 TECHNIQUE: Transabdominal imaging of the gravid uterus was obtained. FINDINGS: The transportation analyst reports a BPP of 8 out of 8. HELLEN is normal at 11.5 cm. heart rate 135 bpm. US/US OB BPP w non-stress IMPRESSION: BPP 8 out of 8. Impression dictated by: Cy Jensen Jr., D.O. 04/23/2025 4:35 PM Dictation Location: [place] [address] Electronically authenticated by: [id number] Y Date: 04/23/2025 16:35
--- OUTSIDE RECORDS SUMMARY | 2025-04-23 16:21 | XMS_ITS | CCD ---
Author Organization [facility] Care Team Providers Care Tip Finisher Name Role Phone Unavailable Primary Care Provider UnavailDasha Kern MD Primary Care Provider MD Dasha Lujan Primary Care Provider BRETT Breaux Attending Provider [phone] Reena Breaux Admitting Unavailable Reena Breaux Attending Unavailable Lujan, Sunir C Primary Care Unavailable Reena Breaux Admitting Unavailable Reena Breaux Attending Unavailable Lujan, Sunir C Primary Care Unavailable Tai ROQEU Sunir C Primary Care Provider Dasha Lujan MD Primary Care Provider BERENICE ZEPEDA Attending Unavailable LUJAN, SUNIR C Primary Care Unavailable LUJAN, SUNIR C Primary Care Unavailable BERENICE ZEPEDA Attending Unavailable BERENICE ZEPEDA Attending Unavailable LUJAN, SUNIR C Primary Care Unavailable BERENICE ZEPEDA Attending Unavailable LUJAN, SUNIR C Primary Care Unavailable LUJAN, SUNIR C Primary Care Unavailable Unallocated , Noms Provider Primary Care [facility] Teo WEAVING INSTRUCTOR, Edu N Unavailable [phone] Teo WEAVING INSTRUCTOR, Edu N Unavailable [phone] Unavailable Primary Care Provider UnavailDEVIKA Lima [...] antepartum, gestational diabetes method of control unspecified ([facility]) , Elevated glucose tolerance test 1 [...] antepartum, gestational diabetes method of control unspecified ([facility]) , Elevated glucose tolerance test Apply 1 Pad topically Daily Use four times daily to check FSBS. 150 each 3 02/04/2025 Active omeprazole 20 mg delayed release oral capsule (20 sources) Proton Pump Inhibitor Start: 04-16-2022 Omeprazole Magnesium (ACID MORTGAGE COORDINATOR, OMEPRAZOLE,) 20 mg cpDR 04/16/2022 Active take [...] 30 days. BMI 29.76 polyethylene glycol 3350 55976 mg powder for oral solution (2 sources) Osmotic Laxative Start: End: take 17 g by mouth once polyethylene glycol, PEG, 3350 (Glycolax) 17 GM/SCOOP powder Indications: Colonoscopy Take 238 g by mouth 1 (one) time for 1 dose Take as detailed from clinic hand out for colonoscopy prep 238 g 07/25/2024 07/25/2024 Active 25-IRON SEP-WDHVK-OXP ORAL (12 sources) take 1 tablet by mouth in the morning 25-IRON NZI-VRCJO-YMI ORAL Take 1 tablet by mouth in the morning. Active Vit-Fe Fumarate-FA ( 19) 29-1 MG chewable tablet (20 sources) Start: Vit-Fe Fumarate-FA ( 19) 29-1 MG chewable tablet Indications: , unspecified gestational age ([facility]) Chew 1 each Daily 30 tablet 11 [...] OB BPP W NON-STRESS on 04-15-2025 [place] [address] Ultrasound Report Signed Patient: CARYL ZAMARRIPA MR#: [id number] : 1990 Acct:[id number] Age/Sex: 34 / F ADM Date: 04/15/25 Loc: US Attending Dr: Rosy Barton Ordering Physician: Rosy Barton Date of Service: 04/15/25 Procedure(s): US OB BPP w non-stress Accession Number(s): [id number] cc: Rosy Barton; Physician,Non-Staff M.Bruce The [place] [id number] Patient Name: CARYL ZAMARRIPA MRN: [facility]:[id number] date: 1990 Sex: F Assigned Patient Location: US Current Patient Location: Accession/Order Number: [id number] Exam Date: 04/15/2025 15:09 Report Date: 04/15/2025 16:16 At the request of: ROSY BARTON Procedure: US OB BPP w non-stress Biophysical profile. Reason for exam: History of gastric sleeve surgery COMPARISON: 04/08/2025 TECHNIQUE: Transabdominal imaging of the gravid uterus was obtained. FINDINGS: The legal mediator reports a BPP of 8 out of 8. HELLEN is normal at 17 cm. heart rate 136 bpm. US/US OB BPP w non-stress IMPRESSION: BPP 8 out of 8. Impression dictated by: Cy Jensen Jr., D.O. 04/15/2025 4:16 PM Dictation Location: [place] [address] Electronically authenticated by: [id number] Y Date: 04/15/2025 16:16 Dictated By: Cy Jensen M.D. Signed By: 04/15/25 1619 DD/ TD/TT: Harmonica Maker: [facility] Radiology, Radiologist, MD - 04/15/2025 [place] [address] Ultrasound Report Signed Patient: CARYL ZAMARRIPA MR#: [id number] : 1990 Acct:[id number] Age/Sex: 34 / F ADM Date: 04/15/25 Loc: US Attending Dr: Rosy Barton Ordering Physician: Rosy Barton Date of Service: 04/15/25 Procedure(s): US OB BPP w non-stress Accession Number(s): [id number] cc: Rosy Barton; Physician,Non-Staff Shimon The [address] [address] Patient Name: CARYL ZAMARRIPA MRN: [id number] date: 1990 Sex: F Assigned Patient Location: US Current Patient Location: Accession/Order Number: [id number] Exam Date: 04/15/2025 15:09 Report Date: 04/15/2025 16:16 At the request of: ROSY BARTON Procedure: US OB BPP w non-stress Biophysical profile. Reason for exam: History of gastric sleeve surgery COMPARISON: 04/08/2025 TECHNIQUE: Transabdominal imaging of the gravid uterus was obtained. FINDINGS: The legal mediator reports a BPP of 8 out of 8. HELLEN is normal at 17 cm. heart rate 136 bpm. US/US OB BPP w non-stress IMPRESSION: BPP 8 out of 8. Impression dictated by: Cy Jensen Jr., D.O. 04/15/2025 4:16 PM Dictation Location: [place] [address] Electronically authenticated by: [id number] Y Date: 04/15/2025 16:16 Dictated By: Cy Jensen M.D. Signed By: 04/15/259 DD/ 15 TD/TT: Harmonica Maker: [facility] Radiology Study observation (narrative) [facility] US OB BPP W NON-STRESS Ordered By: Radiologist Radiology on 04-15-2025 [facility] Work Phone: Urinalysis macro (dipstick) panel (U)on 04-10-2025 Bilirubin, UA Negative Negative - 4(70) +++ mg/dL [facility] Blood, UA Negative Negative - 50 Iraj/mcL [facility] Clarity, UA Clear [facility] Color, UA Yellow [facility] Glucose, UA Negative Negative - 2000(110) ++++ mg/dL [facility] Interpretation and review of laboratory results Abnormal [facility] Ketones, UA Negative Negative - 160(16) ++++ mg/dL [facility] Leukocytes, UA Positive Negative - 500+++ Mari/mcL [facility] Nitrite, UA Negative Negative - Positive [facility] pH, UA 6 5 - 9 [facility] Protein, UA Positive Negative - 2000(20) ++++ mg/dL [facility] Spec Grav, UA 1.015 1 - 1.03 [facility] Urobilinogen, UA 1.0 0.2 - 12 mg/dL [facility] US OB BPP W NON-STRESS on 04-08-2025 [place] [address] Ultrasound Report Signed Patient: CARYL ZAMARRIPA MR#: [id number] : 1990 Acct:[id number] Age/Sex: 34 / F ADM Date: 04/08/25 Loc: US Attending Dr: Rosy Barton Ordering Physician: Rosy Barton Date of Service: 04/08/25 Procedure(s): US OB BPP w non-stress Accession Number(s): [id number] cc: Rosy Barton; Physician,Non-Staff M.Bruce [place] [id number] Patient Name: CARYL ZAMARRIPA MRN: [id number]:[id number] date: 1990 Sex: F Assigned Patient Location: [facility] Current Patient Location: Accession/Order Number: [id number] Exam Date: 04/08/2025 20:36 Report Date: 04/08/2025 [...] PM Dictation Location: [facility]-20 Electronically authenticated by: [id number] Y Date: 04/08/2025 20:37 Dictated By: Suraj Briscoe D.O. Signed By: 04/08/252038 DD/ 36 TD/TT: Harmonica Maker: [facility] Radiology, Radiologist, - 04/08/2025 [place] [address] Ultrasound Report Signed Patient: CARYL ZAMARRIPA MR#: [id number] : 1990 Acct:[id number] Age/Sex: 34 / F ADM Date: 04/08/25 Loc: US Attending Dr: Rosy Barton Ordering Physician: Rosy Barton Date of Service: 04/08/25 Procedure(s): US OB BPP w non-stress Accession Number(s): [id number] cc: Rosy Barton; Physician,Non-Staff M.Bruce The [place] [id number] Patient Name: CARYL ZAMARRIPA MRN: [facility]:[id number] date: 1990 Sex: F Assigned Patient Location: [facility] Current Patient Location: Accession/Order Number: [id number] Exam Date: 04/08/2025 20:36 Report Date: 04/08/2025 [...] Briscoe M.D. 04/08/2025 8:37 PM Dictation Location: [place] [address] Electronically authenticated by: [id number] Y Date: 04/08/2025 20:37 Dictated By: Suraj Briscoe D.O. Signed By: 04/08/252038 DD/ 36 TD/TT: Harmonica Maker: [facility] Radiology Study observation (narrative) [facility] US OB BPP W NON-STRESS Ordered By: Radiologist Radiology on 04-08-2025 [facility] Work Phone: US OB FOLLOW [...] II, MD, PHD at 09-Apr-2025 07:59:18 AM [facility] Normal Not Available Comment on above: Order Comment: US OB SCAN FOR GROWTH Estimated Date of Delivery: 05/19/25 Gestational Age as of 04/05/2025: 33w5d US OB BPP W NON-STRESS on 04-01-[address] [address] Ultrasound Report Signed Patient: CARYL ZAMARRIPA MR#: [id number] : 1990 Acct:[id number] Age/Sex: 34 / F ADM Date: 04/01/25 Loc: [facility] 250-[address]: Rosy Barton Ordering Physician: Rosy Barton Date of Service: 04/01/25 Procedure(s): US OB BPP w non-stress Accession Number(s): [id number] cc: Rosy Barton; Physician,Non-Staff Shimon The [address] [address] Patient Name: CARYL ZAMARRIPA MRN: [facility]:[id number] date: 1990 Sex: F Assigned Patient Location: US Current Patient Location: US Accession/Order Number: [id number] Exam Date: 04/01/2025 15:28 Report Date: 04/01/2025 15:29 At the request of: ROSY BARTON Procedure: US OB BPP w non-stress Biophysical profile. Reason for exam: History of gastric sleeve surgery COMPARISON: None TECHNIQUE: Transabdominal imaging of the gravid uterus was obtained. FINDINGS: The legal mediator reports a BPP of 8 out of 8. HELLEN is normal at 10.8 cm. heart rate 125 bpm. US/US OB BPP w non-stress IMPRESSION: BPP 8 out of 8. Impression dictated by: Cy Jensen Jr., D.O. 04/01/2025 3:29 PM Dictation Location: [place] [address] Electronically authenticated by: [id number] Y Date: 04/01/2025 15:29 Dictated By: Cy Jensen M.D. Signed By: 04/01/25 1531 DD/ 1529 TD/TT: Harmonica Maker: [facility] Radiology, Radiologist, MD - 04/01/2025 The [place] [id number] Ultrasound Report Signed Patient: CARYL ZAMARRIPA MR#: [id number] : 1990 Acct:[id number] Age/Sex: 34 / F ADM Date: 04/01/25 Loc: [facility] 250-[address]: Rosy Barton Ordering Physician: Rosy Barton Date of Service: 04/01/25 Procedure(s): US OB BPP w non-stress Accession Number(s): [id number] cc: Rosy Barton; Physician,Non-Staff MMickey The [place] [address] Patient Name: CARYL ZAMARRIPA MRN: [facility]:[id number] date: 1990 Sex: F Assigned Patient Location: US Current Patient Location: US Accession/Order Number: [id number] Exam Date: 04/01/2025 15:28 Report Date: 04/01/2025 15:29 At the request of: ROSY BARTON Procedure: US OB BPP w non-stress Biophysical profile. Reason for exam: History of gastric sleeve surgery COMPARISON: None TECHNIQUE: Transabdominal imaging of the gravid uterus was obtained. FINDINGS: The legal mediator reports a BPP of 8 out of 8. HELLEN is normal at 10.8 cm. heart rate 125 bpm. US/US OB BPP w non-stress IMPRESSION: BPP 8 out of 8. Impression dictated by: Cy Jensen Jr., D.O. 04/01/2025 3:29 PM Dictation Location: [place] [address] Electronically authenticated by: [id number] Y Date: 04/01/2025 15:29 Dictated By: Cy Jensen M.D. Signed By: 04/01/25 1531 DD/ 1529 TD/TT: Harmonica Maker: [facility] Radiology Study observation (narrative) [facility] US OB BPP W NON-STRESS Ordered By: Radiologist Radiology on 04-01-2025 [facility] Work Phone: Urinalysis macro (dipstick) panel (U)on 03-27-2025 Bilirubin, UA Negative Negative - 4(70) +++ mg/dL [facility] Blood, UA Negative Negative - 50 Iraj/mcL [facility] Clarity, UA Clear [facility] Color, UA Yellow [facility] Glucose, UA Negative Negative - 2000(110) ++++ mg/dL [facility] Interpretation and review of laboratory results Abnormal [facility] Ketones, UA Positive Negative - 160(16) ++++ mg/dL [facility] Leukocytes, UA Few Negative - 500+++ Mari/mcL [facility] Nitrite, UA Negative Negative - Positive [facility] pH, UA 6 5 - 9 [facility] Protein, UA Few Negative - 2000(20) ++++ mg/dL [facility] Spec Grav, UA 1.03 1 - 1.03 [facility] Urobilinogen, UA 0.2 0.2 - 12 mg/dL [facility] Urinalysis macro (dipstick) panel (U)on 03-13-2025 Bilirubin, UA Negative Negative - 4(70) +++ mg/dL [facility] Blood, UA Negative Negative - 50 Iraj/mcL [facility] Clarity, UA Clear [facility] Color, UA Yellow [facility] Glucose, UA Negative Negative - 1999(110) ++++ mg/dL [facility] Interpretation and review of laboratory results Normal [facility] Ketones, UA Negative Negative - 160(16) ++++ mg/dL [facility] Leukocytes, UA Negative Negative - 500+++ Mari/mcL [facility] Nitrite, UA Negative Negative - Positive [facility] pH, UA 6 5 - 9 [facility] Protein, UA Negative Negative - 2000(20) ++++ mg/dL [facility] Spec Grav, UA 1.01 1 - 1.03 [facility] Urobilinogen, UA 1.0 0.2 - 12 mg/dL [facility] US OB FOLLOW UP TRANSABDOMIN AL APPROACHon [...] UA Negative Negative - 4(70) +++ mg/dL [facility] Blood, UA Negative Negative - 50 Iraj/mcL [facility] Clarity, UA Clear [facility] Color, UA Colorless [facility] Glucose, UA Negative Negative - 1999(110) ++++ mg/dL [facility] Interpretation and review of laboratory results Normal [facility] Ketones, UA Negative Negative - 160(16) ++++ mg/dL [facility] Leukocytes, UA Negative Negative - 500+++ Mari/mcL [facility] Nitrite, UA Negative Negative - Positive [facility] pH, UA 6 5 - 9 [facility] Protein, UA Negative Negative - 2000(20) ++++ mg/dL [facility] Spec Grav, UA 1.01 1 - 1.03 [facility] Urobilinogen, UA 1.0 0.2 - 12 mg/dL [facility] Glucose random or fasting- P OCTon 02-14-2025 External Glucose Fasting Or Random (Fbs) [facility] Urinalysis macro (dipstick) panel (U)on 02-11-2025 Bilirubin, UA Negative Negative - 4(70) +++ mg/dL [facility] Blood, UA Negative Negative - 50 Iraj/mcL [facility] Clarity, UA Clear [facility] Color, UA Yellow [facility] Glucose, UA Positive Negative - 2000(110) ++++ mg/dL [facility] Comment on above: 500mg/dL Interpretation and review of laboratory results Abnormal [facility] Ketones, UA Negative Negative - 160(16) ++++ mg/dL [facility] Leukocytes, UA Negative Negative - 500+++ Mari/mcL [facility] Nitrite, UA Negative Negative - Positive [facility] pH, UA 6 5 - 9 [facility] Protein, UA Negative Negative - 2000(20) ++++ mg/dL [facility] Spec Grav, UA 1.005 1 - 1.03 [facility] Urobilinogen, UA 0.2 0.2 - 12 mg/dL [facility] ALL CBC WITH AUTO DIFFon BASOPHILS ABSOLUTE AUTO 0 [facility] Basophils/100 WBC (Bld) 0.2 % 0.2 - 2.0 % [facility] Eosinophils/100 WBC (Bld) 1.1 % 0.9 - 7.0 % [facility] Erythrocyte distribution width (RBC) [Ratio] 13.6 % 11.0 - 15.0 % [facility] IMMATURE GRANULOCYTES ABS AUTO 0.04 High [facility] Immature granulocytes/100 WBC (Bld) 0.4 % 0.0 - 0.5 % [facility] Interpretation and review of laboratory results Abnormal [facility] LYMPHOCYTES ABSOLUTE AUTO 1.2 [facility] Lymphocytes/100 WBC (Bld) 12.5 % Low 20.5 - 60.0 % [facility] MCH (RBC) [Entitic mass] 33.9 pg 26. 7 - 34.0 pg [facility] MCHC (RBC) [Mass/Vol] 33.9 g/dL 29.9 - 35.2 g/dL [facility] MCV (RBC) [Entitic vol] 100 fL High 81.0 - 99.0 fL [facility] MONOCYTES ABSOLUTE AUTO 0.4 [facility] Monocytes/100 WBC (Bld) 3.9 % 1.7 - 12.0 % [facility] NEUTROPHILS ABSOLUTE AUTO 7.7 High [facility] Neutrophils/100 WBC (Bld) 81.9 % High 43.0 - 75.0 % [facility] Platelet mean volume (Bld) [Entitic vol] 11 fL 9.5 - 13.5 fL [facility] TBH EO # 0.1 [facility] TB PLT 172 [facility] TB RBC 3.39 Low [facility] TBH WBC 9.4 [facility] Glucose 1h post 50g loadon 0 02-01-2025 Glucose, 1 hr PP 50GM dose 198 [facility] - Hematology and Cell countson 02-01-2025 Hematocrit (Bld) [Volume fraction] 33.9 % [facility] Hemoglobin (Bld) [Mass/Vol] 11.5 g/dL [facility] No Panel Informationon 02-01 [facility] US OB LIMITED 1+ FETUSESon [...] II, MD, PHD at 01-Feb-2025 10:22:21 AM [facility] [employer] Normal Not Available Comment on above: Order Comment: US OB INCOMPLETE ANATOMY Estimated Date of Delivery: 05/19/25 Gestational Age as of 01/07/2025: 21w1d Urinalysis macro (dipstick) panel (U)on 01-10-2025 Bilirubin, UA Negative Negative - 4(70) +++ mg/dL [facility] Blood, UA Negative Negative - 50 Iraj/mcL [facility] Clarity, UA Clear [facility] Color, UA Yellow [facility] Glucose, UA Negative Negative - 1999(110) ++++ mg/dL [facility] Interpretation and review of laboratory results Abnormal [facility] Ketones, UA Positive Negative - 160(16) ++++ mg/dL [facility] Leukocytes, UA Negative Negative - 500+++ Mari/mcL [facility] Nitrite, UA Negative Negative - Positive [facility] pH, UA 6 5 - 9 [facility] Protein, UA Negative Negative - 2000(20) ++++ mg/dL [facility] Spec Grav, UA 1.01 1 - 1.03 [facility] Urobilinogen, UA 0.2 0.2 - 12 mg/dL [facility] No Panel InformationOrdered By: Radiologist Radiology on 01-02-2025 [facility] Work Phone: No Panel Informationon 01-02 Radiology Study observation (narrative) [facility] US OB ANATOMYon 01-02-[address] [address] Ultrasound Report Signed Patient: CARYL ZAMARRIPA MR#: [id number] : 1990 Acct:[id number] Age/Sex: 34 / F ADM Date: 01/02/25 Loc: US Attending Dr: Roscoe Diaz D.O. Ordering Physician: Roscoe Diaz D.O. Date of Service: 01/02/25 Procedure(s): US OB anatomy Accession Number(s): [id number] cc: Roscoe Diaz D.O.; Physician,Non-Staff Shimon [address] [address] Patient Name: CARYL ZAMARRIPA MRN: [facility]:[id number] date: 1990 Sex: F Assigned Patient Location: Current Patient Location: US Accession/Order Number: [id number] Exam Date: 01/02/2025 22:40 Report Date: 01/02/2025 [...] Briscoe M.D. 01/02/2025 10:47 PM Dictation Location: [employer] Electronically authenticated by: [id number] Y Date: 01/02/2025 22:47 Dictated By: Suraj Briscoe D.O. Signed By: 01/02/252249 DD/ 46 TD/TT: Harmonica Maker: [facility] Radiology, Radiologist, MD - 01/02/2025 [place] [address] Ultrasound Report Signed Patient: CARYL ZAMARRIPA MR#: [id number] : 1990 Acct:[id number] Age/Sex: 34 / F ADM Date: 01/02/25 Loc: US Attending Dr: Roscoe Diaz D.O. Ordering Physician: Roscoe Diaz D.O. Date of Service: 01/02/25 Procedure(s): US OB anatomy Accession Number(s): [id number] cc: Roscoe Diaz D.O.; Physician,Non-Staff Shimon The [place] [id number] Patient Name: CARYL ZAMARRIPA MRN: [facility]:[id number] date: 1990 Sex: F Assigned Patient Location: US Current Patient Location: US Accession/Order Number: [id number] Exam Date: 01/02/2025 22:40 Report Date: 01/02/2025 [...] Briscoe M.D. 01/02/2025 10:47 PM Dictation Location: [place] [address] Electronically authenticated by: [id number] Y Date: 01/02/2025 22:47 Dictated By: Suraj Briscoe D.O. Signed By: 01/02/25 2250 DD/ 46 TD/TT: Harmonica Maker: [facility] OB CERVICAL LENGTHon 12-[address] [address] Ultrasound Report Signed Patient: CARYL ZAMARRIPA MR#: [id number] : 1990 Acct:[id number] Age/Sex: 34 / F ADM Date: 01/02/25 Loc: US Attending Dr: Roscoe Diaz D.O. Ordering Physician: Roscoe Diaz D.O. Date of Service: 01/02/25 Procedure(s): US OB cervical length Accession Number(s): [id number] cc: Roscoe Diaz D.O.; Physician,Non-Staff Shimon [place] [address] Patient Name: CARYL ZAMARRIPA MRN: [facility]:[id number] date: 1990 Sex: F Assigned Patient Location: Current Patient Location: US Accession/Order Number: [id number] Exam Date: 01/02/2025 22:40 Report Date: 01/02/2025 [...] Briscoe M.D. 01/02/2025 10:47 PM Dictation Location: [place] [address] Electronically authenticated by: [id number] Y Date: 01/02/2025 22:47 Dictated By: Suraj Briscoe D.O. Signed By: 01/02/252249 DD/ 46 TD/TT: Harmonica Maker: [facility] Radiology, Radiologist, MD - 01/02/2025 [place] [address] Ultrasound Report Signed Patient: CARYL ZAMARRIPA MR#: [id number] : 1990 Acct:[id number] Age/Sex: 34 / F ADM Date: 01/02/25 Loc: US Attending Dr: Roscoe Diaz D.O. Ordering Physician: Roscoe Diaz D.O. Date of Service: 01/02/25 Procedure(s): US OB cervical length Accession Number(s): [id number] cc: Roscoe Diaz D.O.; Physician,Non-Staff Shimon The [place] [address] Patient Name: CARYL ZAMARRIPA MRN: [facility]:[id number] date: 1990 Sex: F Assigned Patient Location: Current Patient Location: Accession/Order Number: [id number] Exam Date: 01/02/2025 22:40 Report Date: 01/02/2025 [...] Briscoe M.D. 01/02/2025 10:47 PM Dictation Location: [employer] Electronically authenticated by: [id number] Y Date: 01/02/2025 22:47 Dictated By: Suraj Briscoe D.O. Signed By: 01/02/252249 DD/ 46 TD/TT: Harmonica Maker: CHIARA Vicente AFP Single Marker Casey Bangura, Serumon 12-31-2024 Ms Alpha-Fetoprotein Negative [facility] IGP,APTIMA HPV,AGE GDLNon AGE GDLN ACOG TESTING Note . SHERRIE Vu [facility] Comment on above: TESTS RESULT FLAG UN ITS REF RANGE LAB Clinician Provided Cytology Information Source.............[employer] Other.............. No. of containers..01 ThinPrep Vial Age Algo ACOG Enedina... 30-65 01 FLAG LEGEND: L-Low Normal,H-High Normal,LL-Alert Low,HH-Alert High <-Panic Low,>-Panic High,A-Abnormal,AA-Critical Abnormal Performed at: 01 =[address] [address] Rossy Odonnell MD, HPV APTIMA Negative Negative [facility] Comment on above: This nucleic acid am plification test detects fourteen high- risk HPV types (16,18,31,33,35,39,45,51,52,56,58,59,66,68) without differentiation. Performed at: =[address] [id number] Orthoptist: Rossy Odonnell MD, Phone: [phone] Performed at: [address] [id number] Orthoptist: Rossy Odonnell MD, Phone: [phone] IGP, APTIMA HPV, RFX 16/18,45 Note . [facility] Comment on above: TESTS RESULT FLAG UN ITS REF RANGE LAB DIAGNOSIS: 02 NEGATIVE FOR INTRAEPITHELIAL LESION OR MALIGNANCY. Specimen adequacy: 02 Satisfactory for evaluation. No endocervical component is identified. An endocervical component is not commonly seen in the patient. Performed by: Ronan Lucero, Lipstick Molder ([facility]) . 02 Note: Note 02 The [...] <-Panic Low,>-Panic High,A-Abnormal,AA-Critical Abnormal Performed at: [address] [address] Rossy Odonnell MD, SPATULA-[facility] RECURRENT VAGINITIS (HTRX)on 12-11-2024 ATOPOBIUM VAGINAE 0 [facility] ATOPOBIUM VAGINAE Not detected [facility] BVAB 2,3 (BACTERIAL VAGINOSIS ASSOCIATED BACTERIA 2, 3); MOBILUNCUS SPP 0 [facility] BVAB 2,3 (BACTERIAL VAGINOSIS ASSOCIATED BACTERIA 2, 3); MOBILUNCUS SPP Not detected [facility] [place] ALBICANS, PARAPSILOSIS, TROPICALIS 0 [facility] [place] ALBICANS, PARAPSILOSIS, TROPICALIS Not detected [...] detected N [facility] NEISSERIA GONORRHOEAE 0 [facility] NEISSERIA GONORRHOEAE Not detected N [facility] TRICHOMONAS VAGINALIS 0 [facility] TRICHOMONAS VAGINALIS Not detected N [facility] Urinalysis macro (dipstick) panel (U)on 12-10-2024 Bilirubin, UA Negative Negative - 4(70) +++ mg/dL [facility] Blood, UA Negative Negative - 50 Iraj/mcL [facility] Clarity, UA Clear [facility] Color, UA Yellow [facility] Glucose, UA Negative Negative - 1999(110) ++++ mg/dL [facility] Interpretation and review of laboratory results Normal [facility] Ketones, UA Negative Negative - 160(16) ++++ mg/dL [facility] Leukocytes, UA Trace Negative - 500+++ Mari/mcL [facility] Nitrite, UA Negative Negative - Positive [facility] pH, UA 6 5 - 9 [facility] Protein, UA Negative Negative - 1999(20) ++++ mg/dL [facility] Spec Grav, UA 1.01 1 - 1.03 [facility] Urobilinogen, UA 0.2 0.2 - 12 mg/dL [facility] Urinalysis macro (dipstick) panel (U)on 11-08-2024 Bilirubin, UA Negative Negative - 4(70) +++ mg/dL [facility] Blood, UA Negative Negative - 50 Iraj/mcL [facility] Clarity, UA Clear [facility] Color, UA Yellow [facility] Glucose, UA Negative Negative - 1999(110) ++++ mg/dL [facility] Interpretation and review of laboratory results Normal [facility] Ketones, UA Negative Negative - 160(16) ++++ mg/dL [facility] Leukocytes, UA Negative Negative - 500+++ Mari/mcL [facility] Nitrite, UA Negative Negative - Positive [facility] pH, UA 6 5 - 9 [facility] Protein, UA Negative Negative - 1999(20) ++++ mg/dL [facility] Spec Grav, UA 1.015 1 - 1.03 [facility] Urobilinogen, UA 0.2 0.2 - 12 mg/dL [facility] ALL CBC WITH AUTO DIFFon BASOPHILS ABSOLUTE AUTO 0 N [facility] Basophils/100 WBC (Bld) 0.4 % 0.2 - 2.0 % [facility] Eosinophils/100 WBC (Bld) 1.2 % 0.9 - 7.0 % [facility] Erythrocyte distribution width (RBC) [Ratio] 12.4 % 11.0 - 15.0 % [facility] IMMATURE GRANULOCYTES ABS AUTO 0.02 [facility] Immature granulocytes/100 WBC (Bld) 0.2 % 0.0 - 0.5 % [facility] Interpretation and review of laboratory results Abnormal [facility] LYMPHOCYTES ABSOLUTE AUTO 2.2 [facility] Lymphocytes/100 WBC (Bld) 27.2 % 20.5 - 60.0 % [facility] MCH (RBC) [Entitic mass] 33.5 pg 26. 7 - 34.0 pg [facility] MCHC (RBC) [Mass/Vol] 35.3 g/dL High 29.9 - 35.2 g/dL [facility] MCV (RBC) [Entitic vol] 94.9 fL 81.0 - 99.0 fL [facility] MONOCYTES ABSOLUTE AUTO 0.4 N [facility] Monocytes/100 WBC (Bld) 4.9 % 1.7 - 12.0 % [facility] NEUTROPHILS ABSOLUTE AUTO 5.4 [facility] Neutrophils/100 WBC (Bld) 66.1 % 43.0 - 75.0 % [facility] Platelet mean volume (Bld) [Entitic vol] 11.2 fL 9.5 - 13.5 fL [facility] TBH EO # 0.1 [facility] PLT 169 [facility] TB RBC 3.55 Low [facility] TB WBC 8.2 [facility] CBC without diffon 5 Platelets (Bld) [#/Vol] 169 10*3/uL [facility] Rbc Mcv (Fl) By Automated Count 94.9 [facility] Drug Screen, Urineon 025 Amphetamine/Methamphetam ine Negative [facility] Barbiturates Negative [facility] Benzodiazepines Negative [facility] Cocaine Metabolite Negative [facility] Methadone Negative [facility] Opiates Negative [facility] Oxycodone Negative [facility] Phencyclidine Negative [facility] Thc Marijuana, Urine Negative [facility] Free Cell DNAon 2024 Free Cell Dna LOW RISK [facility] HBV surface Ag IA Qlon 10-19 Hepatitis B Surface Antigen Negative [facility] HCV Ab IA Qlon 10-19-2024 HCV Ab Ql (S) Non-Reactive [facility] HIV 1+2 Ab+HIV1 p24 Ag IA Ql on 10-19-2024 HIV 1&2 AB/AG Non-Reactive [facility] Hemoglobin A1con 10-19-2024 HbA1c (Bld) [Mass fraction] 5.1 % 4.0 - 6.0 % [facility] Laboratory - Hematology and Cell countson 10-19-2024 Hematocrit (Bld) [Volume fraction] 33.7 % [facility] Hemoglobin (Bld) [Mass/Vol] 11.9 g/dL [facility] No Panel Informationon 10-19 [facility] Rubella IGG immune statuson 10-19-2024 Rubella immune IgG IMMUNE [facility] T. pallidum IgG+IgM IA Ql (S )on 10-19-2024 Syphilis Non-Reactive [facility] Type and screenon 10-19-2024 Abo/Rh(D) Positive [facility] HCG ( test) Ql (U)o n 10-18-2024 Interpretation and review of laboratory results Abnormal [facility] Preg Test, Ur Positive Negative [facility] US OB TRANSVAGINALon 025 US OB TRANSVAGINAL [...] II, MD, PHD at 20-Oct-2024 07:21:51 AM [facility] Normal Not Available Comment on above: Order Comment: US OB TRANSVAGINAL No LMP recorded. Urinalysis macro (dipstick) panel (U)on 10-18-2024 Bilirubin, UA Negative Negative - 4(70) +++ mg/dL [facility] Blood, UA Negative Negative - 50 Iraj/mcL [facility] Clarity, UA Clear [facility] Color, UA Yellow [facility] Glucose, UA Negative Negative - 2000(110) ++++ mg/dL [facility] Interpretation and review of laboratory results Normal [facility] Ketones, UA Negative Negative - 160(16) ++++ mg/dL [facility] Leukocytes, UA Negative Negative - 500+++ Mari/mcL [facility] Nitrite, UA Negative Negative - Positive [facility] pH, UA 6 5 - 9 [facility] Protein, UA Negative Negative - 2000(20) ++++ mg/dL [facility] Spec Grav, UA 1.01 1 - 1.03 [facility] Urobilinogen, UA 1.0 0.2 - 12 mg/dL [facility] CNOVon 06-29-2024 CNOV Office Visit (INMAVN) CARYL ZAMARRIPA ([id number]) 1990 F Date Time Provider Department 06/29/24 12:40 PM BERENICE ZEPEDA INMAVLee During your visit today, we recorded the following information about you: Pulse Blood pressure Weight 65/minute 101/68 75.8 kg Berenice Zepeda APRN.DISTRICT ADMINISTRATOR 06/29/2024 1:25 PM Signed Caryl Zamarripa is [...] - PHENTERMINE 37.5 MG TABLET Berenice Zepeda APRN.DISTRICT ADMINISTRATOR Allergies As of Date: 06/29/2024 (No Known [...] days. BMI 29.58kg/m2 - Omeprazole Magnesium (ACID MORTGAGE COORDINATOR, OMEPRAZOLE,) 20 mg cpDR Problem List As Of Date: 06/29/2024 (None) Prescriptions ordered this encounter Disp Refills Start End PHENTERMINE 37.5 MG TABLET 30 t* 0 06/29/2024 07/29/2024 Route: ORAL Sig: Take 1 tablet by mouth once daily for 30 days. BMI 29.58kg/m2 Encounter Status:Closed by BERENICE ZEPEDA on 06/29/24 [facility] CNAlfonso 08-23-2023 CNOV Office Visit (INMAVN) CARYL ZAMARRIPA ([id number]) 1990 F Date Time Provider Department 08/23/23 4:00 PM BERENICE ZEPEDA INHALEYVLee During your visit today, we recorded the following information about you: Pulse Blood pressure Weight Last Period 54/minute 121/77 77.6 kg 08/08/23 Berenice Zepeda APRN.DISTRICT ADMINISTRATOR 08/25/2023 12:23 PM Signed Caryl Zamarripa is [...] - PHENTERMINE 37.5 MG TABLET Berenice Zepeda APRN.DISTRICT ADMINISTRATOR Allergies As of Date: 08/23/2023 (No Known [...] for 2 days. - Omeprazole Magnesium (ACID MORTGAGE COORDINATOR, OMEPRAZOLE,) 20 mg cpDR Problem List As [...] Status:Closed by BERENICE ZEPEDA on 08/25/23 Normal [facility] CBC W Auto Differential pane l (Bld)on 07-26-2023 Basophils (Bld) [#/Vol] 0.03 10*3/uL Normal <0.11 [facility] Comment on above: Order Comment: Speci men Type: BLOOD SPECIMEN [facility] Address: [address] [place] [address] Performed By: #### 5 7021-8 #### [facility] CLIA [id number] [address] [place] [address] Basophils/100 WBC (Bld) 0.6 % Normal C [facility] Comment on above: Order Comment: Speci men Type: BLOOD SPECIMEN Ordering Facility[facility] Address: [address] [place] [address] Performed By: #### 5 7021-8 #### [facility] CLIA [id number] [address] [place] [address] Differential cell count method Nom (Bld) Auto Normal [facility] Comment on above: Order Comment: Speci men Type: BLOOD SPECIMEN Ordering Facility: [facility] Address: [address] [place] [address] Performed By: #### 5 7021-8 #### [facility] CLIA [id number] [address] [place] [address] Eosinophils (Bld) [#/Vol] 0.13 10*3/uL Normal <0.46 [facility] Comment on above: Order Comment: Speci men Type: BLOOD SPECIMEN Ordering [facility] Address: [address] [place] [address] Performed By: #### 5 7021-8 #### [facility] CLIA [id number] [address] [place] [address] Eosinophils/100 WBC (Bld) 2.6 % Normal [facility] Comment on above: Order Comment: Speci men Type: BLOOD SPECIMEN [facility]ing [facility] Address: [address] [place] [address] Performed By: #### 5 7021-8 #### [facility] CLIA [id number] [address] [place] [address] Erythrocyte distribution width (RBC) [Ratio] 12.1 % Normal 11.5-15.0 [facility] Comment on above: Order Comment: Speci men Type: BLOOD SPECIMEN Ordering [facility] Address: [address] [place] [address] Performed By: #### 5 7021-8 #### [facility] CLIA [id number] [address] [place] [address] Hematocrit (Bld) [Volume fraction] 37.0 % Normal 36.0-46.0 [facility] Comment on above: Order Comment: Speci men Type: BLOOD SPECIMEN Order[facility] Address: [address] [place] [address] Performed By: #### 5 7021-8 #### [facility] CLIA [id number] [address] [place] [address] Hemoglobin (Bld) [Mass/Vol] 12.6 g/dL Normal 11.5-15.5 [facility] Comment on above: Order Comment: Speci men Type: BLOOD SPECIMEN Order[facility] Address: [address] [place] [address] Performed By: #### 5 7021-8 #### [facility] CLIA [id number] [address] [place] [address] Immature granulocytes (Bld) [#/Vol] 10*3/uL Normal <0.10 [facility] Comment on above: Order Comment: Speci men Type: BLOOD SPECIMEN Ordering [facility] Address: [address] [place] [address] Performed By: #### 5 7021-8 #### [facility] CLIA [id number] [address] [place] [address] Immature granulocytes/100 WBC (Bld) 0.2 % Normal [facility] Comment on above: Order Comment: Speci men Type: BLOOD SPECIMEN [facility] Address: [address] [place] [address] Performed By: #### 5 7021-8 #### [facility] CLIA [id number] [address] [place] [address] Lymphocytes (Bld) [#/Vol] 1.57 10*3/uL Normal 1.00-4.00 [facility] Comment on above: Order Comment: Speci men Type: BLOOD SPECIMEN Order[facility] Address: [address] [place] [address] Performed By: #### 5 7021-8 #### [facility] CLIA [id number] [address] [place] [address] Lymphocytes/100 WBC (Bld) 31.2 % Normal [facility] Comment on above: Order Comment: Speci men Type: BLOOD SPECIMEN Order[facility] Address: [address] [place] [address] Performed By: #### 5 7021-8 #### [facility] CLIA [id number] [address] [place] [address] MCH (RBC) [Entitic mass] 32.2 pg Normal 26.0-34.0 [facility] Comment on above: Order Comment: Speci men Type: BLOOD SPECIMEN Order[facility] Address: [address] [place] [address] Performed By: #### 5 7021-8 #### [facility] CLIA [id number] [address] [place] [address] MCHC (RBC) [Mass/Vol] 34.1 g/dL Normal 30.5-36.0 [facility] Comment on above: Order Comment: Speci men Type: BLOOD SPECIMEN [facility] Address: [address] [place] [address] Performed By: #### 5 7021-8 #### [facility] CLIA [id number] [address] [place] [address] MCV (RBC) [Entitic vol] 94.6 fL Normal 80.0-100.0 C [facility] Comment on above: Order Comment: Speci men Type: BLOOD SPECIMEN [facility] Address: [address] [place] [address] Performed By: #### 5 7021-8 #### [facility] CLIA [id number] [address] [place] [address] Monocytes (Bld) [#/Vol] 0.32 10*3/uL Normal <0.87 [facility] Comment on above: Order Comment: Speci men Type: BLOOD SPECIMEN Order[facility] Address: [address] [place] [address] Performed By: #### 5 7021-8 #### [facility] CLIA [id number] [address] [place] [address] Monocytes/100 WBC (Bld) 6.3 % Normal C [facility] Comment on above: Order Comment: Speci men Type: BLOOD SPECIMEN Order[facility] Address: [address] [place] [address] Performed By: #### 5 7021-8 #### [facility] CLIA [id number] [address] [place] [address] Neutrophils (Bld) [#/Vol] 2.98 10*3/uL Normal 1.45-7.50 [facility] Comment on above: Order Comment: Speci men Type: BLOOD SPECIMEN Order[facility] Address: [address] [place] [address] Performed By: #### 5 7021-8 #### [facility] CLIA [id number] [address] [place] [address] Neutrophils/100 WBC (Bld) 59.1 % Normal [facility] Comment on above: Order Comment: Speci men Type: BLOOD SPECIMEN Order[facility] Address: [address] [place] [address] Performed By: #### 5 7021-8 #### [facility] CLIA [id number] [address] [place] [address] Nucleated RBC (Bld) [#/Vol] 10*3/uL Normal <0.01 [facility] Comment on above: Order Comment: Speci men Type: BLOOD SPECIMEN Order[facility] Address: [address] [place] [address] Performed By: #### 5 7021-8 #### [facility] CLIA [id number] [address] [place] [address] Nucleated RBC/100 WBC (Bld) [Ratio] 0.0 /100 WBC Normal [facility] Comment on above: Order Comment: Speci men Type: BLOOD SPECIMEN Order[facility] Address: [address] [place] [address] Performed By: #### 5 7021-8 #### [facility] CLIA [id number] [address] [place] [address] Platelet mean volume (Bld) [Entitic vol] 10.6 fL Normal 9.0-12.7 [facility] Comment on above: Order Comment: Speci men Type: BLOOD SPECIMEN [facility] Address: [address] [place] [address] Performed By: #### 5 7021-8 #### [facility] CLIA [id number] [address] [place] [address] Platelets (Bld) [#/Vol] 226 10*3/uL Normal 150-400 [facility] Comment on above: Order Comment: Speci men Type: BLOOD SPECIMEN [facility] Address: [address] [place] [address] Performed By: #### 5 7021-8 #### [facility] CLIA [id number] [address] [place] [address] RBC (Bld) [#/Vol] 3.91 10*6/uL Normal 3.90-5.20 [facility] Comment on above: Order Comment: Speci men Type: BLOOD SPECIMEN [facility] Address: [address] [place] [address] Performed By: #### 5 7021-8 #### [facility] CLIA [id number] [address] [place] [address] WBC (Bld) [#/Vol] 5.04 10*3/uL Normal 3.70-11.00 [facility] Comment on above: Order Comment: Speci men Type: BLOOD SPECIMEN [facility] Address: [address] [place] [address] Performed By: #### 5 7021-8 #### [facility] CLIA [id number] [address] [place] [address] Comprehensive metabolic 2000 panelon 07-26-2023 Albumin [Mass/Vol] 4.4 g/dL Normal 3.9-4.9 [facility] Comment on above: Order Comment: Speci men Type: BLOOD SPECIMEN [facility] Address: [address] [place] [address] Performed By: #### 2 4323-8 #### [facility] CLIA [id number] [address] [place] [address] ALP [Catalytic activity/Vol] 40 U/L Normal 34-123 [facility] Comment on above: Order Comment: Speci men Type: BLOOD SPECIMEN [facility] Address: [address] [place] [address] Performed By: #### 2 4323-8 #### [facility] CLIA [id number] [address] [place] [address] ALT [Catalytic activity/Vol] 5 U/L Low 7-38 [facility] Comment on above: Order Comment: Speci men Type: BLOOD SPECIMEN Order[facility] Address: [address] [place] [address] Performed By: #### 2 4323-8 #### [facility] CLIA [id number] [address] [place] [address] Anion gap [Moles/Vol] 8 mmol/L Low 9-18 [facility] Comment on above: Order Comment: Speci men Type: BLOOD SPECIMEN Order[facility] Address: [address] [place] [address] Performed By: #### 2 4323-8 #### [facility] CLIA [id number] [address] [place] [address] AST [Catalytic activity/Vol] 7 U/L Low 13-35 [facility] Comment on above: Order Comment: Speci men Type: BLOOD SPECIMEN Order[facility] Address: [address] [place] [address] Performed By: #### 2 4323-8 #### [facility] CLIA [id number] [address] [place] [address] Bilirubin [Mass/Vol] 0.6 mg/dL Normal 0.2-1.3 [facility] Comment on above: Order Comment: Speci men Type: BLOOD SPECIMEN [facility] Address: [address] [place] [address] Performed By: #### 2 4323-8 #### [facility] CLIA [id number] [address] [place] [address] Calcium [Mass/Vol] 9.5 mg/dL Normal 8.5-10.2 [facility] Comment on above: Order Comment: Speci men Type: BLOOD SPECIMEN Order[facility] Address: [address] [place] [address] Performed By: #### 2 4323-8 #### [facility] CLIA [id number] [address] [place] [address] Chloride [Moles/Vol] 105 mmol/L Normal 97-105 [facility] Comment on above: Order Comment: Speci men Type: BLOOD SPECIMEN [facility] Address: [address] [place] [address] Performed By: #### 2 4323-8 #### [facility] CLIA [id number] [address] [place] [address] CO2 [Moles/Vol] 27 mmol/L Normal 22-30 [facility] Comment on above: Order Comment: Speci men Type: BLOOD SPECIMEN [facility] Address: [address] [place] [address] Performed By: #### 2 4323-8 #### [facility] CLIA [id number] [address] [place] [address] Creatinine [Mass/Vol] 0.76 mg/dL Normal 0.58-0.96 [facility] Comment on above: Order Comment: Speci men Type: BLOOD SPECIMEN [facility] Address: [address] [place] [address] Performed By: #### 2 4323-8 #### [facility] CLIA [id number] [address] [place] [address] Creatinine and Glomerular filtration rate.predicted panel (S/P/Bld) 108 mL/min/1.73m??? Normal >=60 [facility] Comment on above: Order Comment: Mary head Type: BLOOD SPECIMEN [facility] Address: [address] [place] [address] Result Comment: Erma mated Glomerular Filtration Rate [...] GFR. Performed By: #### 2 4323-8 #### [facility] CLIA [id number] [address] [place] [address] Glucose [Mass/Vol] 93 mg/dL Normal 74-99 [facility] Comment on above: Order Comment: Mary head Type: BLOOD SPECIMEN [facility] Address: [address] [place] [address] Result Comment: The [place] [employer] (ADA) provides guidance for cutoff [...] Standards of Medical Care in Diabetes 2016, [place] [employer]. Diabetes Care. 2016.39(Suppl 1). Performed By: #### 2 4323-8 #### [facility] CLIA [id number] [address] [place] [address] Potassium [Moles/Vol] 4.2 mmol/L Normal 3.7-5.1 [facility] Comment on above: Order Comment: Mary head Type: BLOOD SPECIMEN [facility] Address: [address] [place] [address] Performed By: #### 2 4323-8 #### [facility] CLIA [id number] [address] [place] [address]1716 Protein [Mass/Vol] 7.2 g/dL Normal 6.3-8.0 [facility] Comment on above: Order Comment: Speci men Type: BLOOD SPECIMEN [facility]ing Facility[facility] Address: [address] [place] [address] Performed By: #### 2 4323-8 #### [facility] CLIA [id number] [address] [place] [address] 39512 Sodium [Moles/Vol] 140 mmol/L Normal 136-144 [facility] Comment on above: Order Comment: Speci men Type: BLOOD SPECIMEN [facility] Address: [address] [place] [address] Performed By: #### 2 4323-8 #### [facility] CLIA [id number] [address] [place] [address] 31304 Urea nitrogen [Mass/Vol] 11 mg/dL Normal 7-21 [facility] Comment on above: Order Comment: Speci men Type: BLOOD SPECIMEN [facility] Address: [address] [place] [address] Performed By: #### 2 4323-8 #### [facility] CLIA [id number] [address] [place] [address] 81925 HBV surface Ab Ql (S)on HBV surface Ab Qn (S) <8.00 Normal [facility] Comment on above: Order Comment: Speci men Type: BLOOD SPECIMEN [facility] Address: [address] [place] [address] Result Comment: <8 m IU/mL: No serological evidence of immunity to Hepatitis B Virus. >/= 8 to <12 mIU/mL: No serological evidence of immunity to Hepatitis B Virus. >/= 12 mIU/mL: Consistent with serological evidence of immunity to Hepatitis B Virus. Performed By: #### 2 2322-2 #### [facility] CLIA [id number] [address] [place] [address] [place] HBV surface Ab Ser Qlon 12-0 HBV surface Ab Ql (S) Negative Normal [facility] Comment on above: Order Comment: Speci men Type: BLOOD SPECIMEN [facility] Address: [address] [place] [address] Result Comment: No s erological evidence of immunity to Hepatitis B Virus. Performed By: #### 2 2322-2 #### [facility] CLIA [id number] [address] [place] [address] [place] HbA1c (Bld)on 07-26-2023 Average glucose Estimated from glycated hemoglobin (Bld) [Mass/Vol] 94 mg/dL Normal [facility] Comment on above: Order Comment: [facility] Type: BLOOD SPECIMEN [facility] Address: [address] [place] [address] Result Comment: eAG: (Estimated average glucose) is a calculated value from HgbA1c and is traffic workforce representative of the average blood glucose level in the last 2-3 month period. Performed By: #### 5 5454-3 #### [facility] CLIA [id number] [address] [place] [address] [place] HbA1c (Bld) [Mass fraction] 4.9 % Normal 4.3-5.6 [facility] Comment on above: Order Comment: [facility] Type: BLOOD SPECIMEN [facility] Address: [address] [place] [address] Result Comment: Amer ican Diabetes Association guidelines indicate that patients with HgbA1c in the range 5.7-6.4% are at increased risk for development of diabetes, and intervention by lifestyle modification may be beneficial. HgbA1c greater or equal to 6.5% is considered diagnostic of diabetes. Performed By: #### 5 5454-3 #### [facility] CLIA [id number] [address] [place] Lipid 1996 panelon 3 Cholesterol [Mass/Vol] 172 mg/dL Normal <200 [facility] Comment on above: Order Comment: Micki men Type: BLOOD SPECIMEN [facility] Address: [address] [place] [address] Result Comment: <200 mg/dL, Desirable 200-239 mg/dL, Borderline high >239 mg/dL, High Performed By: #### 2 4331-1 #### [facility] CLIA [id number] [address] [facility] CLIA [id number] [address] [place] [address] 41194 Cholesterol in HDL [Mass/Vol] 58 mg/dL Normal >39 [facility] Comment on above: Order Comment: Micki men Type: BLOOD SPECIMEN [facility] Address: [address] [place] [address] Result Comment: 40-5 9 mg/dL, Acceptable >59 mg/dL, High: Negative risk factor for coronary heart disease <40 mg/dL, Low: Positive risk factor for coronary heart disease Performed By: #### 2 4331-1 #### [facility] CLIA [id number] [address] [facility] CLIA [id number] [address] [place] [address]507 Cholesterol in LDL [Mass/Vol] 103 mg/dL High <100 [facility] Comment on above: Order Comment: Speci men Type: BLOOD SPECIMEN [facility] Address: [address] [place] [address] Result Comment: <100 mg/dL, Optimal 100-129 mg/dL, Near optimal/above optimal 130-159 mg/dL, Borderline high 160-189 mg/dL, High >189 mg/dL, Very high Secondary prevention optimal LDL Cholesterol levels are recommended to be < 70 mg/dL Performed By: #### 2 4331-1 #### [facility] CLIA [id number] [address] LAB CLIA [id number] [address] [place] [address]13 Cholesterol in LDL/Cholesterol in HDL [Mass ratio] 1.78 {ratio} Normal <2.54 [facility] Comment on above: Order Comment: Speci men Type: BLOOD SPECIMEN [facility] Address: [address] [place] [address] Result Comment: Elkin horta: 1. National Cholesterol Education Program ATP III Guideline At-A-Glance Quick Desk Reference: National Heart, Lung, and Blood Anita. National Institutes of Health. 2001: NIH Publication No. 01-3305. 2. An International Atherosclerosis Society position paper: global recommendations for the management of dyslipidemia: executive summary, Atherosclerosis. 2014: 232(2):410-413. Performed By: #### 2 4331-1 #### [facility] CLIA [id number] [address] [place] [address] LAB CLIA [id number] [address] [place] [address]29 Cholesterol in VLDL [Mass/Vol] 11 mg/dL Normal <30 [facility] Comment on above: Order Comment: Speci men Type: BLOOD SPECIMEN [facility] Address: [address] [place] [address] Performed By: #### 2 4331-1 #### [facility] CLIA [id number] [address] [place] [address] LAB CLIA [id number] [address] [place] [address] 23044 Cholesterol non HDL [Mass/Vol] 114 mg/dL Normal <130 [facility] Comment on above: Order Comment: Speci men Type: BLOOD SPECIMEN [facility] Address: [address] [place] [address] Result Comment: <130 mg/dL, Optimal 130-159 mg/dL, Near optimal/above optimal 160-189 mg/dL, Borderline high 190-219 mg/dL, High >219 mg/dL, Very high Secondary prevention optimal non HDL Cholesterol levels are recommended to be <100 mg/dL Performed By: #### 2 4331-1 #### [facility] CLIA [id number] [address] [place] [id number] [facility] CLIA [id number] [address] [place] [address] 85662 Cholesterol.total/Choles terol in HDL [Mass ratio] 2.97 {ratio} Normal <5.10 [facility] Comment on above: Order Comment: Speci men Type: BLOOD SPECIMEN [facility] Address: [address] [place] [address] Performed By: #### 2 4331-1 #### [facility] CLIA [id number] [address] [place] [address] LAB CLIA [id number] [address] [place], [place] [address] FASTING TIME 12 hrs Normal [facility] Comment on above: Order Comment: Speci men Type: BLOOD SPECIMEN [facility] Address: [address] [place] [address] Performed By: #### 2 4331-1 #### [facility] CLIA [id number] [address] [place] [address] LAB CLIA [id number] [address] [place], [place] [address] Triglyceride [Mass/Vol] 53 mg/dL Normal <150 [facility] Comment on above: Order Comment: Speci men Type: BLOOD SPECIMEN [facility] Address: [address] [place] [address] Result Comment: <150 mg/dL, Normal 150-199 mg/dL, Borderline high 200-499 mg/dL, High >499 mg/dL, Very high Performed By: #### 2 4331-1 #### [facility] CLIA [id number] 9500 [facility] [address] [address] [place] [facility] CLIA [id number] [address] [place] [address]75 Jemima 07-21-2023 CNOV Office Visit (INMAVN) CARYL ZAMARRIPA ([id number]) 1990 F Date Time Provider Department 07/21/23 4:20 PM BERENICE ZEPEDA INUTJUAN During your visit today, we recorded the following information about you: Pulse Blood pressure Weight Height 60/minute 112/74 80.1 kg 1.612 m Last Period 07/09/23 Berenice Zepeda APRN.DISTRICT ADMINISTRATOR 07/22/2023 10:16 AM Signed Caryl Zamarripa is a 32 year old female here today for review of established medical problems as well as comprehensive physical examination. 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 Dept Implanted control HM needs: Hepatitis B Vaccine(1 of 3 - 3-dose series) Never done Depression Assessment Never done HPV Testing Never done PAST MEDICAL HISTORY Diagnosis Date GERD (gastroesophageal reflux disease) Prediabetes PAST SURGICAL HISTORY Procedure Laterality Date PT ED BARIATRIC AND METABOLIC gastric sleeve 03/2022 ALLERGIES Patient has no known allergies. 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 Sensation grossly intact. Breast/Pelvic: Per TIRE BUILDING SUPERVISOR ASSESSMENT/PLAN: 1. Routine adult health maintenance - ICD9: V70.0, ICD10: Z00.00 (primary diagnosis) - Counseled on healthy diet and regular exercise - Calcium intake with supplements or by diet of 1000 mg/day for under 50, 2418-2183 mg/day for 50+ - Discussed need and benefit for weight loss. BMI 30.81 kg/(m2) - HGB A1C - COMP METABOLIC PANEL - LIPID PANEL BASIC - CBC + DIFF 2. IFG (impaired fasting glucose) - ICD9: 790.21, ICD10: (more content not included)... Normal [facility] Basophils Auto (Bld) [#/Vol] Ordered By: Reena Breaux on 10-11-2022 Basophils (Bld) [#/Vol] 0.0 10*3/uL 0.0-0.2 [facility] Basophils/100 WBC Auto (Bld) Ordered By: Reena Breaux on 10-11-2022 Basophils/100 WBC (Bld) 0.7 % . [facility] Body fluid albumin measureme nt (mass/volume)Ordered By: Reena Breaux on 10-11-2022 Albumin (Body fld) [Mass/Vol] 4.0 g/dL 3.2-5.5 [facility] CT biopsyOrdered By: Reena malhotra on 10-11-2022 Transferrin [Mass/Vol] 206 mg/dL 180-380 [facility] Complete Blood Count Auto Di ffon 10-11-2022 Basophils (Bld) [#/Vol] 0.0 10*3/uL Normal 0.0-0.2 [facility] Comment on above: Result Comment: PERF ORMED BY: [place] [address] PATHOLOGIST ACOUSTICS TEACHER AMANDA CALLE M.D. Performed By: #### P HOS, [id number], CMP, CBC, [id number], FE PRO, MG #### [address] #### VITB1 #### [facility] , Basophils/100 WBC (Bld) 0.7 % Normal . [facility] Comment on above: Performed By: #### P HOS, [id number], CMP, CBC, [id number], FE PRO, MG #### [address] #### VITB1 #### [facility] , Eosinophils (Bld) [#/Vol] 0.1 10*3/uL Normal 0.0-0.45 [facility] Comment on above: Performed By: #### P HOS, [id number], CMP, CBC, [id number], FE PRO, MG #### [address] #### VITB1 #### [facility] , Eosinophils/100 WBC (Bld) 1.7 % Normal . [facility] Comment on above: Performed By: #### P HOS, [id number], CMP, CBC, [id number], FE PRO, MG #### [address] #### VITB1 #### [facility] , Erythrocyte distribution width (RBC) [Ratio] 12.9 % Normal 11.9-15.3 [facility] Comment on above: Performed By: #### P HOS, [id number], CMP, CBC, [id number], FE PRO, MG #### [facility] [address] [place] [address] [place] #### VITB1 #### [facility] , Hematocrit (Bld) [Volume fraction] 39.1 % Normal 34.0-46.4 [facility] Comment on above: Performed By: #### P HOS, [id number], CMP, CBC, [id number], FE PRO, MG #### [facility] [address] [place] [address] #### VITB1 #### [facility] , Hemoglobin (Bld) [Mass/Vol] 13.1 g/dL Normal 11.8-15.4 [facility] Comment on above: Performed By: #### P HOS, [id number], CMP, CBC, [id number], FE PRO, MG #### [facility] [address] [place] [address] #### VITB1 #### [facility] , Lymphocytes (Bld) [#/Vol] 2.7 10*3/uL Normal 1.00-4.8 [facility] Comment on above: Performed By: #### P HOS, [id number], CMP, CBC, [id number], FE PRO, MG #### [address] #### VITB1 #### [facility] , Lymphocytes/100 WBC (Bld) 39.8 % Normal . [facility] Comment on above: Performed By: #### P HOS, [id number], CMP, CBC, [id number], FE PRO, MG #### [facility] [address] [place] [address] [place] #### VITB1 #### [facility] , MCH (RBC) [Entitic mass] 31.9 pg Normal 24.7-34.3 [facility] Comment on above: Performed By: #### P HOS, [id number], CMP, CBC, [id number], FE PRO, MG #### [facility] [address] [place] [address] [place] #### VITB1 #### [facility] , MCV (RBC) [Entitic vol] 95.3 fL Normal 80-100 [facility] Comment on above: Performed By: #### P HOS, [id number], CMP, CBC, [id number], FE PRO, MG #### [facility] [address] [place] [address] #### VITB1 #### [facility] , Mean Corpuscular HGB Conc 33.5 g/dL Normal 32.0-35.0 [facility] Comment on above: Performed By: #### P HOS, [id number], CMP, CBC, [id number], FE PRO, MG #### [facility] [address] [place] [address] #### VITB1 #### [facility] , Monocytes (Bld) [#/Vol] 0.3 10*3/uL Normal 0.0-0.8 [facility] Comment on above: Performed By: #### P HOS, [id number], CMP, CBC, [id number], FE PRO, MG #### [facility] [address] [place] [address] [place] #### VITB1 #### [facility] , Monocytes/100 WBC (Bld) 5.1 % Normal . [facility] Comment on above: Performed By: #### P HOS, [id number], CMP, CBC, [id number], FE PRO, MG #### [facility] [address] [place] [address] [place] #### VITB1 #### [facility] , Neutrophils (Bld) [#/Vol] 3.6 10*3/uL Normal 1.8-7.7 [facility] Comment on above: Performed By: #### P HOS, [id number], CMP, CBC, [id number], FE PRO, MG #### [facility] [address] [place] [address] [place] #### VITB1 #### [facility] , Neutrophils/100 WBC (Bld) 52.7 % Normal . [facility] Comment on above: Performed By: #### P HOS, [id number], CMP, CBC, [id number], FE PRO, MG #### [facility] [address] [place] [address] #### VITB1 #### [facility] , NRBC% 0.0 /100{WBC} Normal 0-0.5 [facility] Comment on above: Performed By: #### P HOS, [id number], CMP, CBC, [id number], FE PRO, MG #### [facility] [address] [place] [address] #### VITB1 #### [facility] , Platelet mean volume (Bld) [Entitic vol] 9.8 fL Normal 6.3-10.7 [facility] Comment on above: Performed By: #### P HOS, [id number], CMP, CBC, [id number], FE PRO, MG #### [facility] [address] [place] [address] #### VITB1 #### [facility] , Platelets (Bld) [#/Vol] 226 10*3/uL Normal 150-450 [facility] Comment on above: Performed By: #### P HOS, [id number], CMP, CBC, [id number], FE PRO, MG #### [facility] [address] [place] [address] [place] #### VITB1 #### [facility] , RBC (Bld) [#/Vol] 4.11 10*6/uL Normal 3.60-5.00 [facility] Comment on above: Performed By: #### P HOS, [id number], CMP, CBC, [id number], FE PRO, MG #### [facility] [address] [place] [address] [place] #### VITB1 #### [facility] , WBC (Bld) [#/Vol] 6.8 10*3/uL Normal 3.8-11.6 [facility] Comment on above: Performed By: #### P HOS, [id number], CMP, CBC, [id number], FE PRO, MG #### [facility] [address] [place] [address] #### VITB1 #### [facility] , Comprehensive Metabolic Pane nicole 10-11-2022 Albumin [Mass/Vol] 4.0 g/dL Normal 3.2-5.5 [facility] Comment on above: Performed By: #### P HOS, [id number], CMP, CBC, [id number], FE PRO, MG #### [facility] [address] [place] [address] #### VITB1 #### [facility] , Albumin/Globulin [Mass ratio] 1.4 {ratio} Normal [facility] Comment on above: Performed By: #### P HOS, [id number], CMP, CBC, [id number], FE PRO, MG #### [facility] [address] [place] [address] [place] #### VITB1 #### [facility] , ALP [Catalytic activity/Vol] 36 U/L Normal 32-92 [facility] Comment on above: Performed By: #### P HOS, [id number], CMP, CBC, [id number], FE PRO, MG #### [facility] [address] [place] [address] [place] #### VITB1 #### [facility] , ALT [Catalytic activity/Vol] 12 U/L Normal 10-60 [facility] Comment on above: Performed By: #### P HOS, [id number], CMP, CBC, [id number], FE PRO, MG #### [facility] [address] [place] [address] [place] #### VITB1 #### [facility] , Anion gap [Moles/Vol] 11.6 mmol/L Normal 6.0-15.0 [facility] Comment on above: Performed By: #### P HOS, [id number], CMP, CBC, [id number], FE PRO, MG #### [facility] [address] [place] [address] #### VITB1 #### [facility] , AST [Catalytic activity/Vol] 11 U/L Normal 10-42 [facility] Comment on above: Performed By: #### P HOS, [id number], CMP, CBC, [id number], FE PRO, MG #### [facility] [address] [place] [address] #### VITB1 #### [facility] , Bilirubin [Mass/Vol] 0.3 mg/dL Normal 0.3-1.2 [facility] Comment on above: Performed By: #### P HOS, [id number], CMP, CBC, [id number], FE PRO, MG #### [facility] [address] [place] [address] #### VITB1 #### [facility] , Calcium [Mass/Vol] 9.3 mg/dL Normal 8.2-10.2 [facility] Comment on above: Performed By: #### P HOS, [id number], CMP, CBC, [id number], FE PRO, MG #### [facility] [address] [place] [address] [place] #### VITB1 #### [facility] , Chloride [Moles/Vol] 103 mmol/L Normal 95-114 [facility] Comment on above: Performed By: #### P HOS, [id number], CMP, CBC, [id number], FE PRO, MG #### [facility] [address] [place] [address] [place] #### VITB1 #### [facility] , CO2 [Moles/Vol] 26.4 mmol/L Normal 22.0-30.0 [facility] Comment on above: Performed By: #### P HOS, [id number], CMP, CBC, [id number], FE PRO, MG #### [facility] [address] [place] [address] [place] #### VITB1 #### [facility] , Creatinine [Mass/Vol] 0.70 mg/dL Normal 0.44-1.03 [facility] Comment on above: Performed By: #### P HOS, [id number], CMP, CBC, [id number], FE PRO, MG #### [facility] [address] [place] [address] #### VITB1 #### [facility] , Estimated GFR ( Christiano > 60 [facility] Comment on above: Result Comment: GFR estimated reference range: According to KDOQI guidelines, <60 ml/min/1.73m2 is sufficient to diagnose a patient with chronic kidney disease. Performed By: #### P HOS, [id number], CMP, CBC, [id number], FE PRO, MG #### [facility] [address] [place] [address] [place] #### VITB1 #### [facility] , Estimated GFR (Non- Am > 60 [facility] Comment on above: Performed By: #### P HOS, [id number], CMP, CBC, [id number], FE PRO, MG #### [facility] [address] [place] [address] [place] #### VITB1 #### [facility] , Globulin (S) [Mass/Vol] 2.8 g/dL Normal [facility] Comment on above: Performed By: #### P HOS, [id number], CMP, CBC, [id number], FE PRO, MG #### [facility] [address] [place] [address] [place] #### VITB1 #### [facility] , Glucose [Mass/Vol] 85 mg/dL Normal 70-100 [facility] Comment on above: Result Comment: [facility] Glucose Reference Range is dependent on time and content of last meal. Glucose of more than 200 mg/dL in a nonstressed, ambulatory subject supports the diagnosis of Diabetes Mellitus. ADA recommended reference range Performed By: #### P HOS, [id number], CMP, CBC, [id number], FE PRO, MG #### [facility] [address] [place] [address] [place] #### VITB1 #### [facility] , Potassium [Moles/Vol] 4.0 mmol/L Normal 3.5-5.1 [facility] Comment on above: Performed By: #### P HOS, [id number], CMP, CBC, [id number], FE PRO, MG #### [facility] [address] [place] [address] [place] #### VITB1 #### [facility] , Protein [Mass/Vol] 6.8 g/dL Normal 6.1-7.9 [facility] Comment on above: Performed By: #### P HOS, [id number], CMP, CBC, [id number], FE PRO, MG #### [facility] [address] [place] [address] [place] #### VITB1 #### [facility] , Sodium [Moles/Vol] 137 mmol/L Normal 136-146 [facility] Comment on above: Performed By: #### P HOS, [id number], CMP, CBC, [id number], FE PRO, MG #### [facility] [address] [place] [address] [place] #### VITB1 #### [facility] , Urea nitrogen [Mass/Vol] 11 mg/dL Normal 9-23 [facility] Comment on above: Performed By: #### P HOS, [id number], CMP, CBC, [id number], FE PRO, MG #### [facility] [address] [place] [address] [place] #### VITB1 #### [facility] , Creatinine and Glomerular fi ltration rate.predicted panel (S/P/Bld)Ordered By: Reena Breaux on 10-11-2022 Creatinine [Mass/Vol] 0.70 mg/dL 0.44-1.03 [facility] Eosinophils Auto (Bld) [#/Vo l]Ordered By: Reena Breaux on 10-11-2022 Eosinophils (Bld) [#/Vol] 0.1 10*3/uL 0.0-0.45 [facility] Eosinophils/100 WBC Auto (Bl d)Ordered By: Reena Breaux on 10-11-2022 Eosinophils/100 WBC (Bld) 1.7 % . [facility] Erythrocyte distribution wid th Auto (RBC) [Ratio]Ordered By: Reena Breaux on 10-11-2022 Erythrocyte distribution width (RBC) [Ratio] 12.9 % 11.9-15.3 [facility] Estimated glomerular filtrat ion rate (GFR) non- AmericanOrdered By: Reena Breaux on 10-11-2022 GFR/1.73 sq M.predicted among non-blacks MDRD (S/P/Bld) [Vol rate/Area] > 60 mL/Min [facility] FE PROon 10-11-2022 % Iron Saturation 24.0 % Normal 20-50 [facility] Comment on above: Performed By: #### P HOS, [id number], CMP, CBC, [id number], FE PRO, MG #### [facility] [address] [place] [address] [place] #### VITB1 #### [facility] , Ferritin [Mass/Vol] 29.2 ng/mL Normal 11-306.8 [facility] Comment on above: Performed By: #### P HOS, [id number], CMP, CBC, [id number], FE PRO, MG #### [facility] [address] [place] [address] [place] #### VITB1 #### [facility] , Iron [Mass/Vol] 69 ug/dL Normal 40-150 [facility] Comment on above: Performed By: #### P HOS, [id number], CMP, CBC, [id number], FE PRO, MG #### [facility] [address] [place] [address] [place] #### VITB1 #### [facility] , Total Iron Binding Capacity 288 ug/dL Normal 255-450 [facility] Comment on above: Performed By: #### P HOS, [id number], CMP, CBC, [id number], FE PRO, MG #### [facility] [address] [place] [address] [place] #### VITB1 #### [facility] , Transferrin [Mass/Vol] 206 mg/dL Normal 180-380 [facility] Comment on above: Performed By: #### P HOS, [id number], CMP, CBC, [id number], FE PRO, MG #### [facility] [address] [place] [address] [place] #### VITB1 #### [facility] , Ferritin [Mass/volume] in Se rum or PlasmaOrdered By: Reena Breaux on 10-11-2022 Ferritin [Mass/Vol] 29.2 ng/mL 11-306.8 [facility] Folate [Mass/volume] in Seru m or PlasmaOrdered By: Reena Breaux on 10-11-2022 Folate [Mass/Vol] 22.2 ng/mL >5.9 [facility] Comment on above: Folate reference ran ge: >5.9 ng/mlThe WHO technical consultation on folate and vitamin [id number] has determined that folate concentrations lessthan 4 ng/ml are considered deficient. Globulin Calc (S) [Mass/Vol] Ordered By: Reena Breaux on 10-11-2022 Globulin (S) [Mass/Vol] 2.8 g/dL [facility] Hematocrit Auto (Bld) [Volum e fraction]Ordered By: Reena Breaux on 10-11-2022 Hematocrit (Bld) [Volume fraction] 39.1 % 34.0-46.4 [facility] Hemoglobin [Mass/volume] in BloodOrdered By: Reena Breaux on 10-11-2022 Hemoglobin (Bld) [Mass/Vol] 13.1 g/dL 11.8-15.4 [facility] Iron [Mass/volume] in Serum or PlasmaOrdered By: Reena Breaux on 10-11-2022 Iron [Mass/Vol] 69 ug/dL 40-150 [facility] Iron binding capacity [Mass/ volume] in Serum or PlasmaOrdered By: Reena Breaux on 10-11-2022 Iron binding capacity [Mass/Vol] 288 ug/dL 255-450 [facility] Iron saturation [Mass Fracti on] in Serum or PlasmaOrdered By: Reena Breaux on 10-11-2022 Iron saturation [Mass fraction] 24.0 % 20-50 [facility] Laboratory - Chemistry and C hemistry - challengeOrdered By: Reena Breaux on 10-11-2022 Cobalamin (Vitamin B12) [Mass/Vol] 1437 pg/mL 180-914 [facility] Magnesium [Mass/Vol] 2.1 mg/dL 1.6-2.6 [facility] Leukocytes [#/volume] correc jakob for nucleated erythrocytes in Blood by Automated counOrdered By: Reena Breaux on 10-11-2022 WBC corrected for nucl RBC Auto (Bld) [#/Vol] 6.8 10*3/uL 3.8-11.6 [facility] Lymphocytes Auto (Bld) [#/Vo l]Ordered By: Reena Breaux on 10-11-2022 Lymphocytes (Bld) [#/Vol] 2.7 10*3/uL 1.00-4.8 [facility] Lymphocytes/100 WBC Auto (Bl d)Ordered By: Reena Breaux on 10-11-2022 Lymphocytes/100 WBC (Bld) 39.8 % . [facility] MCH Auto (RBC) [Entitic mass ]Ordered By: Reena Breaux on 10-11-2022 MCH (RBC) [Entitic mass] 31.9 pg 24.7-34.3 [facility] MCHC Auto (RBC) [Mass/Vol]Or dered By: Reena Breaux on 10-11-2022 MCHC (RBC) [Mass/Vol] 33.5 g/dL 32.0-35.0 [facility] MCV Auto (RBC) [Entitic vol] Ordered By: Reena Breaux on 10-11-2022 MCV (RBC) [Entitic vol] 95.3 fL 80-100 [facility] Magnesiumon 10-11-2022 Magnesium [Mass/Vol] 2.1 mg/dL Normal 1.6-2.6 [facility] Comment on above: Performed By: #### P HOS, [id number], CMP, CBC, [id number], FE PRO, MG #### [facility] [address] #### VITB1 #### [facility] , Monocytes Auto (Bld) [#/Vol] Ordered By: Reena Breaux on 10-11-2022 Monocytes (Bld) [#/Vol] 0.3 10*3/uL 0.0-0.8 [facility] Monocytes/100 WBC Auto (Bld) Ordered By: Reena Breaux on 10-11-2022 Monocytes/100 WBC (Bld) 5.1 % . [facility] Neutrophils Auto (Bld) [#/Vo l]Ordered By: Reena Breaux on 10-11-2022 Neutrophils (Bld) [#/Vol] 3.6 10*3/uL 1.8-7.7 [facility] Neutrophils/100 WBC Auto (Bl d)Ordered By: Reena Breaux on 10-11-2022 Neutrophils/100 WBC (Bld) 52.7 % . [facility] No Panel InformationOrdered By: Reena Breaux on 10-11-2022 25-Hydroxy Vitamin D Total 33.9 ng/mL 30-100 [facility] Comment on above: VITAMIN D STATUS 25( OH)VITAMIN D RANGE (ng/mL) Deficient <20 Insufficient 20 to <30Sufficient 30 to 100Reference: Kofi MF,Mauricio NC, Mayank CUELLAR, et al. Evaluation,treatment, and prevention of vitamin D deficiency; an Endocrine Society clinical practice guideline. JCEM. 2010; 96(7):1911-30. Estimated GFR () > 60 mL/Min [facility] Comment on above: GFR estimated refere nce range: According to KDOQI guidelines, <60 ml/min/1.73m2 is sufficient to diagnose a patient with chronic kidney disease. Pharmacy Creatinine Clearance (Chem N/A [facility] Nucleated erythrocytes [Pres ence] in Blood by Automated countOrdered By: Reena Breaux on 10-11-2022 Nucleated RBC Auto Ql (Bld) 0.0 /100{WBC} 0-0.5 [facility] Phosphate [Mass/volume] in S negro or PlasmaOrdered By: Reena Breaux on 10-11-2022 Phosphate [Mass/Vol] 3.9 mg/dL 2.5-4.6 [facility] Phosphoruson 10-11-2022 Phosphate [Mass/Vol] 3.9 mg/dL Normal 2.5-4.6 [facility] Comment on above: Performed By: #### P HOS, [id number], CMP, CBC, [id number], FE PRO, MG #### [facility] [address] [place] [address] #### VITB1 #### [facility] , Platelet mean volume Auto (B ld) [Entitic vol]Ordered By: Reena Breaux on 10-11-2022 Platelet mean volume (Bld) [Entitic vol] 9.8 fL 6.3-10.7 [facility] Platelets Auto (Bld) [#/Vol] Ordered By: Reena Breaux on 10-11-2022 Platelets (Bld) [#/Vol] 226 10*3/uL 150-450 [facility] Protein [Mass/volume] in Ser um or PlasmaOrdered By: Reena Breaux on 10-11-2022 Protein [Mass/Vol] 6.8 g/dL 6.1-7.9 [facility] RBC Auto (Bld) [#/Vol]Ordere d By: Reena Breaux on 10-11-2022 RBC (Bld) [#/Vol] 4.11 10*6/uL 3.60-5.00 [facility] Serum or plasma alanine doss otransferase measurement without P-5'-P (enzymatic activiOrdered By: Reena Breaux on 10-11-2022 ALT No additional P-5'-P [Catalytic activity/Vol] 12 U/L 10-60 [facility] Serum or plasma albumin/glob ulin mass ratioOrdered By: Reena Breaux on 10-11-2022 Albumin/Globulin [Mass ratio] 1.4 {ratio} [facility] Serum or plasma alkaline denis sphatase measurement (enzymatic activity/volume)Ordered By: Reena Breaux on 10-11-2022 ALP [Catalytic activity/Vol] 36 U/L 32-92 [facility] Serum or plasma anion gap de terminationOrdered By: Reena Breaux on 10-11-2022 Anion gap [Moles/Vol] 11.6 mmol/L 6.0-15.0 [facility] Serum or plasma aspartate am inotransferase measurement (enzymatic activity/volume)Ordered By: Reena Breaux on 10-11-2022 AST [Catalytic activity/Vol] 11 U/L 10-42 [facility] Serum or plasma calcium gloria urement (mass/volume)Ordered By: Reena Breaux on 10-11-2022 Calcium [Mass/Vol] 9.3 mg/dL 8.2-10.2 [facility] Serum or plasma chloride gina surement (moles/volume)Ordered By: Reena Breaux on 10-11-2022 Chloride [Moles/Vol] 103 mmol/L 95-114 [facility] Serum or plasma glucose gloria urement (mass/volume)Ordered By: Reena Breaux on 10-11-2022 Glucose [Mass/Vol] 85 mg/dL 70-100 [facility] Comment on above: ADA recommended refe rence rangeRandom Glucose Reference Range is dependent on time and content of last meal. Glucose of more than 200 mg/dL in a nonstressed, ambulatory subject supports the diagnosis of Diabetes Mellitus. Serum or plasma potassium me asurement (moles/volume)Ordered By: Reena Breaux on 10-11-2022 Potassium [Moles/Vol] 4.0 mmol/L 3.5-5.1 [facility] Serum or plasma sodium measu rement (moles/volume)Ordered By: Reena Breaux on 10-11-2022 Sodium [Moles/Vol] 137 mmol/L 136-146 [facility] Serum or plasma total biliru bin measurement (mass/volume)Ordered By: Reena Breaux on 10-11-2022 Bilirubin [Mass/Vol] 0.3 mg/dL 0.3-1.2 [facility] Serum or plasma total carbon dioxide measurement (moles/volume)Ordered By: Reena Breaux on 10-11-2022 CO2 [Moles/Vol] 26.4 mmol/L 22.0-30.0 [facility] Serum or plasma urea nitroge n measurement (mass/volume)Ordered By: Reena Breaux on 10-11-2022 Urea nitrogen [Mass/Vol] 11 mg/dL 9-23 [facility] Vit. B12/Folate Profileon Cobalamin (Vitamin B12) [Mass/Vol] 1437 pg/mL High 180-914 [facility] Comment on above: Performed By: #### P HOS, [id number], CMP, CBC, [id number], FE PRO, MG #### [facility] [address] #### VITB1 #### [facility] , Folate 22.2 ng/mL Normal >5.9 [facility] Comment on above: Result Comment: Tara te reference range: >5.9 ng/ml The WHO technical consultation on folate and vitamin b12 deficiencies has determined that folate concentrations less than 4 ng/ml are considered deficient. Performed By: #### P HOS, [id number], CMP, CBC, [id number], FE PRO, MG #### [facility] [address] [place] [address] [place] #### VITB1 #### [facility] , Vitamin B1 (Thiamine) Bloodo n 10-11-2022 Vitamin B1 (Thiamine) Blood 153.8 Normal 66.5-200.0 [facility] Comment on above: Result Comment: This test was developed and its performance characteristics determined by [facility]. It has not been cleared or approved by the Food and Drug Administration. Performed at: [facility] [address] [id number] Orthoptist: Chary Soler MD, Phone: [phone] PERFORMED BY: [place] [id number] PATHOLOGIST [employer]OUSTICS TEACHER AMANDA CALLE M.D. Performed By: #### P HOS, [id number], CMP, CBC, [id number], FE PRO, MG #### [facility] [address] [place] [address] #### VITB1 #### [facility] , Vitamin D 25 Hydroxy Totalon 10-11-2022 Vitamin D 25 Hydroxy Total 33.9 ng/mL Normal 30-100 [facility] Comment on above: Result Comment: JONAH MIN D STATUS 25(OH)VITAMIN D RANGE (ng/mL) Deficient <20 Insufficient 20 to <30 Sufficient 30 to 100 Reference: Kofi MF,Mauricio NC, Mayank CUELLAR, et al. Evaluation,treatment, and prevention of vitamin D deficiency; an Endocrine Society clinical practice guideline. JCEM. 2010; 96(7):1911-30. PERFORMED BY: [place] [address] PATHOLOGIST ACOUSTICS TEACHER AMANDA CALLE M.D. Performed By: #### P HOS, [id number], CMP, CBC, [id number], FE PRO, MG #### [facility] [address] [place] [address] #### VITB1 #### [facility] , WBC Auto (Bld) [#/Vol]Ordere d By: Reena Breaux on 10-11-2022 WBC (Bld) [#/Vol] 6.8 10*3/uL 3.8-11.6 [facility] Complete Blood Count Auto Di ffon 06-10-2022 Basophils (Bld) [#/Vol] 0.0 10*3/uL Normal 0.0-0.2 [facility] Comment on above: Order Comment: NOT F ASTING. JKW Result Comment: PERF ORMED BY: [place] [address] PATHOLOGIST ACOUSTICS TEACHER AMANDA CALLE M.D. Performed By: #### V ITB1 #### [facility] , #### [id number], CMP, MG, FE PRO, PHOS, [id number], CBC #### [address] Basophils/100 WBC (Bld) 0.7 % Normal . [facility] Comment on above: Order Comment: NOT F ASTING. JKW Performed By: #### V ITB1 #### [facility] , #### [id number], CMP, MG, FE PRO, PHOS, [id number], CBC #### [address] Eosinophils (Bld) [#/Vol] 0.2 10*3/uL Normal 0.0-0.45 [facility] Comment on above: Order Comment: NOT F ASTING. JKW Performed By: #### V ITB1 #### [facility] , #### [id number], CMP, MG, FE PRO, PHOS, [id number], CBC #### [address] Eosinophils/100 WBC (Bld) 2.6 % Normal . [facility] Comment on above: Order Comment: NOT F ASTING. JKW Performed By: #### V ITB1 #### [facility] , #### [id number], CMP, MG, FE PRO, PHOS, [id number], CBC #### [address] Erythrocyte distribution width (RBC) [Ratio] 13.9 % Normal 11.9-15.3 [facility] Comment on above: Order Comment: NOT F ASTING. JKW Performed By: #### V ITB1 #### [facility] , #### [id number], CMP, MG, FE PRO, PHOS, [id number], CBC #### [address] Hematocrit (Bld) [Volume fraction] 39.1 % Normal 34.0-46.4 [facility] Comment on above: Order Comment: NOT F ASTING. JKW Performed By: #### V ITB1 #### [facility] , #### [id number], CMP, MG, FE PRO, PHOS, [id number], CBC #### [address] Hemoglobin (Bld) [Mass/Vol] 12.8 g/dL Normal 11.8-15.4 [facility] Comment on above: Order Comment: NOT F ASTING. JKW Performed By: #### V ITB1 #### [facility] , #### [id number], CMP, MG, FE PRO, PHOS, [id number], CBC #### [address] Lymphocytes (Bld) [#/Vol] 1.5 10*3/uL Normal 1.00-4.8 [facility] Comment on above: Order Comment: NOT F ASTING. JKW Performed By: #### V ITB1 #### [facility] , #### [id number], CMP, MG, FE PRO, PHOS, [id number], CBC #### [place] [address] [place] Lymphocytes/100 WBC (Bld) 24.6 % Normal . [facility] Comment on above: Order Comment: NOT F ASTING. JKW Performed By: #### V ITB1 #### [facility] , #### [id number], CMP, MG, FE PRO, PHOS, [id number], CBC #### [address] MCH (RBC) [Entitic mass] 31.8 pg Normal 24.7-34.3 [facility] Comment on above: Order Comment: NOT F ASTING. JKW Performed By: #### V ITB1 #### [facility] , #### [id number], CMP, MG, FE PRO, PHOS, [id number], CBC #### [address] MCV (RBC) [Entitic vol] 97.2 fL Normal 80-100 [facility] Comment on above: Order Comment: NOT F ASTING. JKW Performed By: #### V ITB1 #### [facility] , #### [id number], CMP, MG, FE PRO, PHOS, [id number], CBC #### [address] Mean Corpuscular HGB Conc 32.7 g/dL Normal 32.0-35.0 [facility] Comment on above: Order Comment: NOT F ASTING. JKW Performed By: #### V ITB1 #### [facility] , #### [id number], CMP, MG, FE PRO, PHOS, [id number], CBC #### [address] Monocytes (Bld) [#/Vol] 0.4 10*3/uL Normal 0.0-0.8 [facility] Comment on above: Order Comment: NOT F ASTING. JKW Performed By: #### V ITB1 #### [facility] , #### [id number], CMP, MG, FE PRO, PHOS, [id number], CBC #### [address] Monocytes/100 WBC (Bld) 7.3 % Normal . [facility] Comment on above: Order Comment: NOT F ASTING. JKW Performed By: #### V ITB1 #### [facility] , #### [id number], CMP, MG, FE PRO, PHOS, [id number], CBC #### [facility] [address] Neutrophils (Bld) [#/Vol] 3.8 10*3/uL Normal 1.8-7.7 [facility] Comment on above: Order Comment: NOT F ASTING. JKW Performed By: #### V ITB1 #### [facility] , #### [id number], CMP, MG, FE PRO, PHOS, [id number], CBC #### [address] Neutrophils/100 WBC (Bld) 64.8 % Normal . [facility] Comment on above: Order Comment: NOT F ASTING. JKW Performed By: #### V ITB1 #### [facility] , #### [id number], CMP, MG, FE PRO, PHOS, [id number], CBC #### [facility] [address] [place] [address] Nucleated RBC/100 WBC (Bld) [Ratio] 0.1 % Normal 0-0.5 [facility] Comment on above: Order Comment: NOT F ASTING. JKW Performed By: #### V ITB1 #### [facility] , #### [id number], CMP, MG, FE PRO, PHOS, [id number], CBC #### [facility] [address] [place] [address] [place] Platelet mean volume (Bld) [Entitic vol] 10.6 fL Normal 6.3-10.7 [facility] Comment on above: Order Comment: NOT F ASTING. JKW Performed By: #### V ITB1 #### [facility] , #### [id number], CMP, MG, FE PRO, PHOS, [id number], CBC #### [facility] [address] Platelets (Bld) [#/Vol] 237 10*3/uL Normal 150-450 [facility] Comment on above: Order Comment: NOT F ASTING. JKW Performed By: #### V ITB1 #### [facility] , #### [id number], CMP, MG, FE PRO, PHOS, [id number], CBC #### [address] RBC (Bld) [#/Vol] 4.02 10*6/uL Normal 3.60-5.00 [facility] Comment on above: Order Comment: NOT F ASTING. JKW Performed By: #### V ITB1 #### [facility] , #### [id number], CMP, MG, FE PRO, PHOS, [id number], CBC #### [address] WBC (Bld) [#/Vol] 5.9 10*3/uL Normal 4.5-11.0 [facility] Comment on above: Order Comment: NOT F ASTING. JKW Performed By: #### V ITB1 #### [facility] , #### [id number], CMP, MG, FE PRO, PHOS, [id number], CBC #### [address] Comprehensive Metabolic Pane nicole 06-10-2022 Albumin [Mass/Vol] 3.9 g/dL Normal 3.2-5.5 [facility] Comment on above: Order Comment: NOT F ASTING. JKW Performed By: #### V ITB1 #### [facility] , #### [id number], CMP, MG, FE PRO, PHOS, [id number], CBC #### [address] Albumin/Globulin [Mass ratio] 1.4 {ratio} Normal [facility] Comment on above: Order Comment: NOT F ASTING. JKW Performed By: #### V ITB1 #### [facility] , #### [id number], CMP, MG, FE PRO, PHOS, [id number], CBC #### [address] ALP [Catalytic activity/Vol] 43 U/L Normal 32-92 [facility] Comment on above: Order Comment: NOT F ASTING. JKW Performed By: #### V ITB1 #### [facility] , #### [id number], CMP, MG, FE PRO, PHOS, [id number], CBC #### [address] ALT [Catalytic activity/Vol] 12 U/L Normal 10-60 [facility] Comment on above: Order Comment: NOT F ASTING. JKW Performed By: #### V ITB1 #### [facility] , #### [id number], CMP, MG, FE PRO, PHOS, [id number], CBC #### [address] Anion gap [Moles/Vol] 11.0 mmol/L Normal 6.0-15.0 [facility] Comment on above: Order Comment: NOT F ASTING. JKW Performed By: #### V ITB1 #### [facility] , #### [id number], CMP, MG, FE PRO, PHOS, [id number], CBC #### [facility] [address] [place] [address] AST [Catalytic activity/Vol] 10 U/L Normal 10-42 [facility] Comment on above: Order Comment: NOT F ASTING. JKW Performed By: #### V ITB1 #### [facility] , #### [id number], CMP, MG, FE PRO, PHOS, [id number], CBC #### [facility] [address] Bilirubin [Mass/Vol] 0.7 mg/dL Normal 0.3-1.2 [facility] Comment on above: Order Comment: NOT F ASTING. JKW Performed By: #### V ITB1 #### [facility] , #### [id number], CMP, MG, FE PRO, PHOS, [id number], CBC #### [address] Calcium [Mass/Vol] 9.8 mg/dL Normal 8.2-10.2 [facility] Comment on above: Order Comment: NOT F ASTING. JKW Performed By: #### V ITB1 #### [facility] , #### [id number], CMP, MG, FE PRO, PHOS, [id number], CBC #### [address] Chloride [Moles/Vol] 104 mmol/L Normal 95-114 [facility] Comment on above: Order Comment: NOT F ASTING. JKW Performed By: #### V ITB1 #### [facility] , #### [id number], CMP, MG, FE PRO, PHOS, [id number], CBC #### [facility] [address] [place] [address] CO2 [Moles/Vol] 25.3 mmol/L Normal 22.0-30.0 [facility] Comment on above: Order Comment: NOT F ASTING. JKW Performed By: #### V ITB1 #### [facility] , #### [id number], CMP, MG, FE PRO, PHOS, [id number], CBC #### [facility] [address] [place] [address] [place] Creatinine [Mass/Vol] 0.56 mg/dL Normal 0.44-1.03 [facility] Comment on above: Order Comment: NOT F ASTING. JKW Performed By: #### V ITB1 #### [facility] , #### [id number], CMP, MG, FE PRO, PHOS, [id number], CBC #### [address] Estimated GFR ( Christiano > 60 [facility] Comment on above: Order Comment: NOT F ASTING. JKW Result Comment: GFR estimated reference range: According to KDOQI guidelines, <60 ml/min/1.73m2 is sufficient to diagnose a patient with chronic kidney disease. Performed By: #### V ITB1 #### [facility] , #### [id number], CMP, MG, FE PRO, PHOS, [id number], CBC #### [address] Estimated GFR (Non- Am > 60 [facility] Comment on above: Order Comment: NOT F ASTING. JKW Performed By: #### V ITB1 #### [facility] , #### [id number], CMP, MG, FE PRO, PHOS, [id number], CBC #### [address] Globulin (S) [Mass/Vol] 2.8 g/dL Normal [facility] Comment on above: Order Comment: NOT F ASTING. JKW Performed By: #### V ITB1 #### [facility] , #### [id number], CMP, MG, FE PRO, PHOS, [id number], CBC #### [address] Glucose [Mass/Vol] 95 mg/dL Normal 70-100 [facility] Comment on above: Order Comment: NOT F ASTING. JKW Result Comment: [employer] om Glucose Reference Range is dependent on time and content of last meal. Glucose of more than 200 mg/dL in a nonstressed, ambulatory subject supports the diagnosis of Diabetes Mellitus. ADA recommended reference range Performed By: #### V ITB1 #### [facility] , #### [id number], CMP, MG, FE PRO, PHOS, [id number], CBC #### [facility] [address] Potassium [Moles/Vol] 4.3 mmol/L Normal 3.5-5.1 [facility] Comment on above: Order Comment: NOT F ASTING. JKW Performed By: #### V ITB1 #### [facility] , #### [id number], CMP, MG, FE PRO, PHOS, [id number], CBC #### [address] Protein [Mass/Vol] 6.7 g/dL Normal 6.1-7.9 [facility] Comment on above: Order Comment: NOT F ASTING. JKW Performed By: #### V ITB1 #### [facility] , #### [id number], CMP, MG, FE PRO, PHOS, [id number], CBC #### [address] Sodium [Moles/Vol] 136 mmol/L Normal 136-146 [facility] Comment on above: Order Comment: NOT F ASTING. JKW Performed By: #### V ITB1 #### [facility] , #### [id number], CMP, MG, FE PRO, PHOS, [id number], CBC #### [facility] [address] Urea nitrogen [Mass/Vol] 7 mg/dL Low 9-23 [facility] Comment on above: Order Comment: NOT F ASTING. JKW Performed By: #### V ITB1 #### [facility] , #### [id number], CMP, MG, FE PRO, PHOS, [id number], CBC #### [facility] [address] [place] [address] FE PROon 06-10-2021 % Iron Saturation 19.0 % Low 20-50 [facility] Comment on above: Order Comment: NOT F ASTING. JKW Performed By: #### P HOS, [id number], CMP, CBC, [id number], FE PRO, MG #### [facility] [address] [place] [address] [place] #### VITB1 #### [facility] , Ferritin [Mass/Vol] 46.7 ng/mL Normal 11-306.8 [facility] Comment on above: Order Comment: NOT F ASTING. JKW Performed By: #### P HOS, [id number], CMP, CBC, [id number], FE PRO, MG #### [facility] [address] [place] [address] [place] #### VITB1 #### [facility] , Iron [Mass/Vol] 50 ug/dL Normal 40-150 [facility] Comment on above: Order Comment: NOT F ASTING. JKW Performed By: #### P HOS, [id number], CMP, CBC, [id number], FE PRO, MG #### [facility] [address] [place] [address] [place] #### VITB1 #### [facility] , Total Iron Binding Capacity 260 ug/dL Normal 255-450 [facility] Comment on above: Order Comment: NOT F ASTING. JKW Performed By: #### P HOS, [id number], CMP, CBC, [id number], FE PRO, MG #### [facility] [address] [place] [address] [place] #### VITB1 #### [facility] , Transferrin [Mass/Vol] 186 mg/dL Normal 180-380 [facility] Comment on above: Order Comment: NOT F ASTING. JKW Performed By: #### P HOS, [id number], CMP, CBC, [id number], FE PRO, MG #### [facility] [address] [place] [address] [place] #### VITB1 #### [facility] , Magnesiumon 06-10-2022 Magnesium [Mass/Vol] 2.0 mg/dL Normal 1.6-2.6 [facility] Comment on above: Order Comment: NOT F ASTING. JKW Performed By: #### P HOS, [id number], CMP, CBC, [id number], FE PRO, MG #### [facility] [address] [place] [address] #### VITB1 #### [facility] , Phosphoruson 06-10-2022 Phosphate [Mass/Vol] 4.1 mg/dL Normal 2.5-4.6 [facility] Comment on above: Order Comment: NOT F ASTING. JKW Performed By: #### P HOS, [id number], CMP, CBC, [id number], FE PRO, MG #### [facility] [address] [place] [address] #### VITB1 #### [facility] , Vit. B12/Folate Profileon Cobalamin (Vitamin B12) [Mass/Vol] 575 pg/mL Normal 180-914 [facility] Comment on above: Order Comment: NOT F ASTING. JKW Performed By: #### P HOS, [id number], CMP, CBC, [id number], FE PRO, MG #### [facility] [address] [place] [address] [place] #### VITB1 #### [facility] , Folate 14.3 ng/mL Normal >5.9 [facility] Comment on above: Order Comment: NOT F ASTING. JKW Result Comment: Tara te reference range: >5.9 ng/ml The WHO technical consultation on folate and vitamin b12 deficiencies has determined that folate concentrations less than 4 ng/ml are considered deficient. Performed By: #### P HOS, [id number], CMP, CBC, [id number], FE PRO, MG #### [facility] [address] [place] [address] #### VITB1 #### [facility] , Vitamin B1 (Thiamine) Bloodo n 06-10-2022 Vitamin B1 (Thiamine) Blood 143.0 Normal 66.5-200.0 [facility] Comment on above: Order Comment: NOT F ASTING. JKW Result Comment: This test was developed and its performance characteristics determined by [facility]. It has not been cleared or approved by the Food and Drug Administration. Performed at: [address] [id number] Orthoptist: Chary Soler MD, Phone: [phone] PERFORMED BY: [place] [address] PATHOLOGIST ACOUSTICS TEACHER AMANDA CALLE M.D. Performed By: #### P HOS, [id number], CMP, CBC, [id number], FE PRO, MG #### [facility] [address] [place] [address] #### VITB1 #### [facility] , Vitamin D 25 Hydroxy Totalon 06-10-2022 Vitamin D 25 Hydroxy Total 27.8 ng/mL Low 30-100 [facility] Comment on above: Order Comment: NOT F ASTING. JKW Result Comment: JONAH MIN D STATUS 25(OH)VITAMIN D RANGE (ng/mL) Deficient <20 Insufficient 20 to <30 Sufficient 30 to 100 Reference: Kofi MF,Mauricio NC, Marily-Gaston CUELLAR, et al. Evaluation,treatment, and prevention of vitamin D deficiency; an Endocrine Society clinical practice guideline. JCEM. 2010; 96(7):1911-30. PERFORMED BY: [place] [address] PATHOLOGIST ACOUSTICS TEACHER AMANDA CALLE M.D. Performed By: #### P HOS, [id number], CMP, CBC, [id number], FE PRO, MG #### [facility] [address] #### VITB1 #### [facility] , HGB A1Con 01-15-2022 Average glucose Estimated from glycated hemoglobin (Bld) [Mass/Vol] 128 mg/dL Normal [facility] Comment on above: Order Comment: [facility] Type: BLOOD SPECIMEN [facility] Address: [address] [place] [address] Result Comment: eAG: (Estimated average glucose) is a calculated value from HgbA1c and is traffic workforce representative of the average blood glucose level in the last 2-3 month period. Performed By: #### H BA1C #### [facility] CLIA [id number] [address] [place] [address] STATES OF [facility] HbA1c (Bld) [Mass fraction] 6.1 % High 4.3-5.6 [facility] Comment on above: Order Comment: [facility] Type: BLOOD SPECIMEN [facility]ing [facility] Address: [address] [place] [address] Result Comment: Amer [place] Diabetes Association guidelines indicate that patients with HgbA1c in the range 5.7-6.4% are at increased risk for development of diabetes, and intervention by lifestyle modification may be beneficial. HgbA1c greater or equal to 6.5% is considered diagnostic of diabetes. Performed By: #### H BA1C #### [facility] CLIA [id number] [address] [place] [address] STATES OF [facility] POTASSIUM BLDon 01-15-2022 Potassium [Moles/Vol] 4.9 mmol/L Normal 3.7-5.1 [facility] Comment on above: Order Comment: [facility] Type: BLOOD SPECIMEN [facility] Address: [address] [place] [address] Performed By: #### K 1 #### [facility] CLIA [id number] [place] [address] [place] Potassium [Moles/Vol] 4.9 mmol/L 3.7 - 5.1 mmol/L [facility] Vital Signs Date Time Vital Sign Value Performing Clinician Facility 04-10-2025 15:14-0400 Body mass index (BMI) [Ratio] 37.22 kg/m2 Roscoe Joe DO Work Phone: [facility] 04-10-2025 15:14-0400 Body weight 95.31 kg Roscoe Joe DO Work Phone: [facility] 04-10-2025 15:14-0400 Diastolic blood pressure 70 mm[Hg] Roscoe Joe DO Work Phone: [facility] 04-10-2025 15:14-0400 Systolic blood pressure 120 mm[Hg] Roscoe Joe DO Work Phone: [facility] 03-27-2025 14:01-0400 Body mass index (BMI) [Ratio] 36.28 kg/m2 Roscoe Joe DO Work Phone: [facility] 03-27-2025 14:01-0400 Body weight 92.9 kg Roscoe Joe DO Work Phone: [facility] 03-27-2025 14:01-0400 Diastolic blood pressure 72 mm[Hg] Roscoe Joe DO Work Phone: [facility] 03-27-2025 14:01-0400 Systolic blood pressure 116 mm[Hg] Roscoe Joe DO Work Phone: [facility] 03-13-2025 15:41-0400 Body mass index (BMI) [Ratio] 36.46 kg/m2 Rosy KRUGER Work Phone: [facility] 03-13-2025 15:41-0400 Body weight 93.35 kg Rosy KRUGER Work Phone: [facility] 03-13-2025 15:41-0400 Diastolic blood pressure 70 mm[Hg] Rosy KRUGER Work Phone: [facility] 03-13-2025 15:41-0400 Systolic blood pressure 110 mm[Hg] Rosy KRUGER Work Phone: [facility] 03-12-2025 13:35-0400 Body height 160 cm Daisha Lavoy PA-C Work Phone: [facility] 03-12-2025 13:35-0400 Body mass index (BMI) [Ratio] 36.38 kg/m2 Daisha Lavoy PA-C Work Phone: [facility] 03-12-2025 13:35-0400 Body weight 93.17 kg Daisha Lavoy PA-C Work Phone: [facility] 03-12-2025 13:35-0400 Diastolic blood pressure 57 mm[Hg] Daisha Lavoy PA-C Work Phone: [facility] 03-12-2025 13:35-0400 Heart rate 76 /min Daisha Lavoy PA-C Work Phone: [facility] 03-12-2025 13:35-0400 Systolic blood pressure 99 mm[Hg] Daisha Lavoy PA-C Work Phone: [facility] 02-27-2025 14:00-0400 Body mass index (BMI) [Ratio] 36.1 kg/m2 Roscoe Joe DO Work Phone: [facility] 02-27-2025 14:00-0400 Body weight 92.44 kg Roscoe Joe DO Work Phone: [facility] 02-27-2025 14:00-0400 Diastolic blood pressure 60 mm[Hg] Roscoe Joe DO Work Phone: [facility] 02-27-2025 14:00-0400 Systolic blood pressure 110 mm[Hg] Roscoe Joe DO Work Phone: [facility] 02-14-2025 15:17-0400 Body mass index (BMI) [Ratio] 36.21 kg/m2 Hien Giles RN Work Phone: [facility] 02-14-2025 15:17-0400 Body weight 92.72 kg Hien Giles RN Work Phone: [facility] 02-11-2025 11:36-0400 Body mass index (BMI) [Ratio] 35.87 kg/m2 Rosy Oralia PA Work Phone: [facility] 02-11-2025 11:36-0400 Body weight 91.85 kg Rosy Oralia PA Work Phone: [facility] 02-11-2025 11:36-0400 Diastolic blood pressure 60 mm[Hg] Rosy Columbia PA Work Phone: [facility] 02-11-2025 11:36-0400 Systolic blood pressure 110 mm[Hg] Rosy Barton PA Work Phone: [facility] 02-07-2025 10:43-0400 Body height 160 cm Scanning External [facility] 01-10-2025 10:33-0400 Body mass index (BMI) [Ratio] 34.92 kg/m2 Roscoe Joe DO Work Phone: [facility] 01-10-2025 10:33-0400 Body weight 89.41 kg Roscoe Joe DO Work Phone: [facility] 01-10-2025 10:33-0400 Diastolic blood pressure 68 mm[Hg] Roscoe Joe DO Work Phone: [facility] 01-10-2025 10:33-0400 Systolic blood pressure 110 mm[Hg] Roscoe Joe DO Work Phone: [facility] 12-10-2024 11:23-0400 Body mass index (BMI) [Ratio] 33.66 kg/m2 Rosy Barton PA Work Phone: [facility] 12-10-2024 11:23-0400 Body weight 86.18 kg Rosy Oralia PA Work Phone: [facility] 12-10-2024 11:23-0400 Diastolic blood pressure 70 mm[Hg] Rosy Barton PA Work Phone: [facility] 12-10-2024 11:23-0400 Systolic blood pressure 106 mm[Hg] Rosy Barton PA Work Phone: [facility] 11-08-2024 11:04-0400 Body mass index (BMI) [Ratio] 32.24 kg/m2 Roscoe Joe DO Work Phone: [facility] 11-08-2024 11:04-0400 Body weight 82.56 kg Roscoe Joe DO Work Phone: [facility] 11-08-2024 11:04-0400 Diastolic blood pressure 60 mm[Hg] Roscoe Joe DO Work Phone: [facility] 11-08-2024 11:04-0400 Systolic blood pressure 100 mm[Hg] Roscoe Joe DO Work Phone: [facility] 10-18-2024 13:54-0500 Body mass index (BMI) [Ratio] 31.38 kg/m2 Nom Nurse [facility] 10-18-2024 13:54-0500 Body weight 80.34 kg [facility] Nurse [facility] 08-02-2024 15:58-0500 Body temperature 96.8 [degF] Edu Alvarez WEAVING INSTRUCTOR Work Phone: [facility] 08-02-2024 15:58-0500 Diastolic blood pressure 66 mm[Hg] Educhristiano Alvarez WEAVING INSTRUCTOR Work Phone: [facility] 08-02-2024 15:58-0500 Heart rate 88 /min Edu Alvarez WEAVING INSTRUCTOR Work Phone: [facility] 08-02-2024 15:58-0500 SaO2% (BldA) [Mass fraction] 98 % Edu Alvarez WEAVING INSTRUCTOR Work Phone: [facility] 08-02-2024 15:58-0500 Systolic blood pressure 106 mm[Hg] Edu Alvarez WEAVING INSTRUCTOR Work Phone: [facility] 07-25-2024 14:19-0500 Body height 160 cm Sina Jain DO Work Phone: [facility] 07-25-2024 14:19-0500 Body mass index (BMI) [Ratio] 30.82 kg/m2 Sina Jain DO Work Phone: [facility] 07-25-2024 14:19-0500 Body weight 78.93 kg Sina Jain DO Work Phone: [facility] 07-25-2024 14:19-0500 Diastolic blood pressure 68 mm[Hg] Sina Gargett DO Work Phone: [facility] 07-25-2024 14:19-0500 Heart rate 68 /min Sina Jain DO Work Phone: [facility] 07-25-2024 14:19-0500 Respiratory rate 12 /min Sinavincent Jain DO Work Phone: [facility] 07-25-2024 14:19-0500 SaO2% (BldA) [Mass fraction] 99 % Sinavincent Jain DO Work Phone: [facility] 07-25-2024 14:19-0500 Systolic blood pressure 128 mm[Hg] Sina Jain DO Work Phone: [facility] 06-29-2024 12:36-0500 Body mass index (BMI) [Ratio] 29.58 kg/m2 Berenice Zepeda FIRE OBSERVER.DISTRICT ADMINISTRATOR Work Phone: [facility] 06-29-2024 12:36-0500 Body weight 75.75 kg Berenice Zepeda FIRE OBSERVER.DISTRICT ADMINISTRATOR Work Phone: [facility] 06-29-2024 12:36-0500 Diastolic blood pressure 68 mm[Hg] Berenice Webbtter FIRE OBSERVER.DISTRICT ADMINISTRATOR Work Phone: [facility] 06-29-2024 12:36-0500 Heart rate 65 /min Berenice Zepeda FIRE OBSERVER.DISTRICT ADMINISTRATOR Work Phone: [facility] 06-29-2024 12:36-0500 Systolic blood pressure 101 mm[Hg] Berenice Evelyn FIRE OBSERVER.DISTRICT ADMINISTRATOR Work Phone: [facility] 09-23-2023 14:27-0500 Body height 160 cm Berenice Evelyn FIRE OBSERVER.DISTRICT ADMINISTRATOR Work Phone: [facility] 09-23-2023 14:27-0500 Body weight 76.2 kg Berenice Evelyn FIRE OBSERVER.DISTRICT ADMINISTRATOR Work Phone: [facility] 07-21-2023 16:05-0500 Body height 161.2 cm Berenice Evelyn FIRE OBSERVER.DISTRICT ADMINISTRATOR Work Phone: [facility] 07-21-2023 16:05-0500 Body weight 80.06 kg Berenice Evelyn FIRE OBSERVER.DISTRICT ADMINISTRATOR Work Phone: [facility] 07-21-2023 16:05-0500 Diastolic blood pressure 74 mm[Hg] Berenice Evelyn FIRE OBSERVER.DISTRICT ADMINISTRATOR Work Phone: [facility] 07-21-2023 16:05-0500 Heart rate 60 /min Berenice Evelyn FIRE OBSERVER.DISTRICT ADMINISTRATOR Work Phone: [facility] 07-21-2023 16:05-0500 Systolic blood pressure 112 mm[Hg] Berenice Evelyn FIRE OBSERVER.DISTRICT ADMINISTRATOR Work Phone: [facility] 01-15-2022 11:50-0400 Body height 162.6 cm Dasha Lujan MD Work Phone: [facility] 01-15-2022 11:50-0400 Body temperature 98.01 [degF] Dasha Lujan MD Work Phone: [facility] 01-15-2022 11:50-0400 Body weight 104.33 kg Dasha Lujan MD Work Phone: [facility] 01-15-2022 11:50-0400 Diastolic blood pressure 86 mm[Hg] Dasha Lujan MD Work Phone: [facility] 01-15-2022 11:50-0400 Heart rate 65 /min Dasha Lujan MD Work Phone: [facility] 01-15-2022 11:50-0400 Respiratory rate 16 /min Dasha Lujan MD Work Phone: [facility] 01-15-2022 11:50-0400 Systolic blood pressure 124 mm[Hg] Dasha Lujan MD Work Phone: [facility] Encounters Encounter Date Encounter Type Care Provider Facility Start: 04-15-2025 End: 04-15-2025 Clinisync Result Encounter Rosy KRUGER Work Phone: [facility] External [facility] Unsolicited Start: 04-15-2025 End: 04-15-2025 Clinisync Result Encounter Rosy KRUGER Work Phone: [facility] Unsolicited Start: 04-15-2025 End: 04-15-2025 Telephone encounter Beulah Miller RN [facility] Start: 04-10-2025 End: 04-10-2025 flow sheet Roscoe Joe DO Work Phone: [facility] Comment on above: 34 weeks gestation o f ([facility]); Third trimester ([facility]); H/O gastric sleeve; Insulin controlled gestational diabetes mellitus (GDM) during , antepartum ([facility]) Start: 04-10-2025 End: 04-10-2025 ambulatory ROSCOE JOE Not Available Start: 04-10-2025 End: 04-10-2025 Bamboo flowsheet Roscoe Joe DO Work Phone: [facility] Start: 04-10-2025 End: 04-10-2025 Bamboo flowsheet Roscoe Joe DO Work Phone: [facility] Start: 04-09-2025 End: 04-09-2025 Telephone encounter [...] [facility] Start: 04-01-2025 End: 04-01-2025 ambulatory [facility] Start: 04-01-2025 End: 04-01-2025 Office outpatient visit 25 minutes Daisha Emelia Briseno PA-C Work Phone: [facility] Comment on above: Gestational diabetes requiring insulin (Primary Dx) Start: 03-27-2025 End: 03-27-2025 Bamboo flowsheet Roscoe Joe DO Work Phone: [facility] Start: 03-27-2025 End: 03-27-2025 Bamboo flowsheet Roscoe Joe DO Work Phone: [facility] Start: 03-27-2025 End: 03-27-2025 flow sheet Roscoe Joe DO Work Phone: [facility] Comment on above: Third trimester preg piper ([facility]); H/O gastric sleeve; Gestational diabetes mellitus (GDM), antepartum, gestational diabetes method of control unspecified ([facility]); 32 weeks gestation of ([facility]) Start: 03-27-2025 End: 03-27-2025 ambulatory ROSCOE JOE [...] on above: 30 weeks gestation o f ([facility]); Third trimester ([facility]); H/O gastric sleeve; Gestational diabetes mellitus (GDM), antepartum, gestational diabetes method of control unspecified ([facility]) Start: 03-13-2025 End: 03-13-2025 ambulatory ROSY BARTON Not Available Start: 03-13-2025 End: 03-13-2025 Bamboo flowsheet Rosy KRUGER Work Phone: [facility] Start: 03-13-2025 End: 03-13-2025 Bamboo flowsheet Rosy KRUGER Work Phone: [facility] Start: 03-12-2025 End: 03-12-2025 [facility] Start: 03-12-2025 End: 03-12-2025 Office outpatient visit 25 minutes Daisha Briseno PA-C [facility] Phone[facility] [...] on above: 28 weeks gestation o f ([facility]); Third trimester ([facility]); H/O gastric sleeve; Gestational diabetes mellitus (GDM), antepartum, gestational diabetes method of control unspecified [facility] Start: 02-27-2025 End: 02-27-2025 ambulatory ROSCOE JOE [...] Comment on above: Second trimester pre gnancy ([facility]); 26 weeks gestation of ([facility]); H/O gastric sleeve Start: 02-11-2025 End: 02-11-2025 [...] Patient encounter procedure Rosy KRUGER Work Phone: [facility] Start: 12-10-2024 End: 12-10-2024 [...] Office outpatient visit 25 minutes Edu Alvarez WEAVING INSTRUCTOR Work Phone: [facility] Comment on [...] Start: 06-29-2024 End: 06-29-2024 ambulatory DASHA LUJAN Facility:[facility] Start: 06-29-2024 End: 06-29-2024 Patient encounter procedure Berenice Zepeda APRN.DISTRICT ADMINISTRATOR Work Phone: Internal Medicine Comment on above: Encounter for weight management (Primary Dx); Overweight Start: 03-06-2024 ambulatory Berenice wheatley FIRE OBSERVER.DISTRICT ADMINISTRATOR Work Phone: Internal Medicine Start: 03-06-2024 Patient encounter procedure Berenice Webbradha WEST.DISTRICT ADMINISTRATOR Work Phone: Internal Medicine Comment on above: Prescription Start: 09-23-2023 End: 09-23-2023 ambulatory Berenice Zepeda FIRE OBSERVER.DISTRICT ADMINISTRATOR Work Phone: Internal Medicine Comment on above: Encounter for weight management; Overweight (BMI 25.0-29.9) Start: 09-23-2023 End: 09-23-2023 Telemedicine consultation with patient Berenice Zepeda APRN.DISTRICT ADMINISTRATOR Work Phone: [facility] Start: 08-23-2023 End: 08-23-2023 ambulatory BERENICE ZEPEDA Facility:[facility] Start: 07-26-2023 End: 07-26-2023 ambulatory DASHA LUJAN Facility:[facility] Start: 07-21-2023 End: 07-21-2023 ambulatory BERENICE ZEPEDA Facility:[facility] Start: 07-21-2023 End: 07-21-2023 Patient encounter procedure Berenice Webbradha WEST.DISTRICT ADMINISTRATOR Work Phone: Internal Medicine Comment on above: Routine adult health maintenance (Primary Dx); IFG (impaired fasting glucose); Encounter for weight management; Class 1 obesity due to excess calories with body mass index (BMI) of 30.0 to 30.9 in adult, unspecified whether serious comorbidity present; Encounter for immunization; Immunity status testing Start: 07-21-2023 End: 07-21-2023 Patient encounter status Berenice Webbradha DE [place] ADMINISTRATOR Work Phone: [facility] Work Phone: Start: 06-29-2023 ambulatory Dasha Lujan MD Work Phone: Internal Medicine Comment on above: Prescription Start: 10-11-2022 End: 10-11-2022 ambulatory Reena Breaux Facility:[facility] Start: 10-11-2022 End: 10-11-2022 ambulatory MD Dasha Lujan Work Phone: [facility] Work Phone: Start: 10-11-2022 End: 10-11-2022 Patient encounter procedure MD Dasha Lujan Work Phone: [facility] Start: 06-10-2022 End: 06-10-2022 ambulatory Reena Breaux Facility:[facility] Start: 01-15-2022 End: 01-15-2022 Office [...] Td Vaccines (8 - Td or Tdap) [facility] Start: 07-21-2033 Urine microalbumin profile [facility] Start: 12-11-2027 Screening for malign ant neoplasm of cervix [facility] Start: 03-12-2026 Adult BMI Screening Adult BMI Screen ing [facility] Start: 03-12-2026 Tobacco Screening Tobacco Screening [facility] Start: 02-14-2026 Adult BMI Screening Adult BMI Screen ing [facility] Start: 04-24-2025 End: 04-24-2025 Patient encounter procedure 04/24/2025 11:30 AM EDT Routine [facility] [address] [place] [id number] Roscoe Diaz, DO [address] [place] [address] [facility] Start: 04-22-2025 Influenza vaccination [facility] Start: 04-10-2025 End: 04-10-2025 Patient encounter procedure [facility] Comment on above: Arrived Start: 04-01-2025 End: 04-01-2025 Telemedicine consultation with patient 04/01/2025 10:00 AM EDT Telemedicine [facility]- [facility] at [facility] [address] [place] [phone] Daisha Briseno PA-C [address] [address] [facility] at [facility] Start: 03-27-2025 End: 03-27-2025 Patient encounter procedure [facility] Comment on above: Arrived Start: 03-13-2025 End: 03-13-2025 Patient encounter procedure [facility] Comment on above: Arrived Start: 02-27-2025 End: 02-27-2025 Professional / ancillary services management 02/27/2025 1:00 PM EDT Ancillary Procedure [facility] [address] [place] [phone] [facility] Start: 02-14-2025 End: 02-14-2025 ambulatory 02/14/2025 1:30 PM EDT Support Visit [facility] at [facility] [address] [place] [phone] Hien Giles, RN [address] [address] Devika Pope, JOEL [address] [place] [address] [facility]- [facility] at [facility] Start: 02-11-2025 End: 06-13-2025 US for US OB follow up transabdominal approach Imaging Routine H/O gastric sleeve Expected: 02/11/2025, Expires: 06/13/2025 [facility] Work Phone: Comment on above: Expected: 02/11/2025 , Expires: 06/13/2025 Start: 02-11-2025 End: 02-11-2025 Patient encounter procedure 02/11/2025 11:30 AM EDT Routine [facility] [address] [place] [address] Rosy Barton PA [address] [place] [address] [facility] Start: 01-30-2025 End: 01-30-2025 Professional / ancillary services management 01/30/2025 1:00 PM EDT Ancillary Procedure [facility] [address] [place] [address] [facility] Start: 01-15-2025 Pap Testing Pap Testing [facility] Start: 01-15-2025 Screening for malign ant neoplasm of cervix Pap Testing [facility] Start: 01-10-2025 End: 01-10-2026 CBC panel - Blood by Automated count CBC Lab Routine Diabetes mellitus screening Expected: 01/10/2025 (Approximate), Expires: 01/10/2026 [facility] Work Phone: Comment on above: Expected: 01/10/2025 (Approximate), Expires: 01/10/2026 Start: 01-10-2025 End: 01-10-2026 Measurement of glucose 1 hour after glucose challenge for glucose tolerance test Glucose tolerance, 1 hour Lab Routine Diabetes mellitus screening Expected: 01/10/2025 (Approximate), Expires: 01/10/2026 [facility] Comment on above: Expected: 01/10/2025 (Approximate), Expires: 01/10/2026 Start: 01-10-2025 End: 01-10-2025 Patient encounter procedure 01/10/2025 10:10 AM EDT Routine [facility] [address] [facility] [place] [phone] Roscoe Diaz, DO [address] [place] [address] [facility] Start: 12-10-2024 End: 01-09-2025 [...] EDT Routine [facility] [address] [place] [phone] Rosy Barton PA [address] [place] [address] Arrived [facility] Comment on above: Arrived Start: 11-08-2024 End: 11-08-2024 Patient encounter procedure 11/08/2024 10:50 AM EDT Routine [facility] [address] [place] [address] Roscoe Diaz, DO [address] [place] [address] [facility] Start: 10-18-2024 End: 10-18-2025 ABO/Rh ABO/Rh Lab Routine Missed menses , unspecified gestational age Expected: 10/18/2024 (Approximate), Expires: 10/18/2025 [facility] Comment on above: Expected: 10/18/2024 (Approximate), Expires: 10/18/2025 Start: 10-18-2024 End: 10-18-2025 Blood type and Indirect antibody screen panel - Blood Type and screen Lab Routine Missed menses , unspecified gestational age Expected: 10/18/2024 (Approximate), Expires: 10/18/2025 [facility] Comment on above: Expected: 10/18/2024 (Approximate), Expires: 10/18/2025 Start: 10-18-2024 End: 10-18-2025 Drugs of abuse panel - Urine by Screen method Rapid drug screen, urine Lab Routine , unspecified gestational age Encounter for supervision of normal first in first trimester Expected: 10/18/2024 (Approximate), Expires: 10/18/2025 [facility] Comment on above: Expected: 10/18/2024 (Approximate), Expires: 10/18/2025 Start: 10-18-2024 End: 10-18-2025 US Pelvis transvaginal [facility] Work Phone: Comment on above: Expected: 10/18/2024 , Expires: 10/18/2025 Start: 07-21-2024 Covid-19 Vaccine (#1) Covid-19 Vacci ne (#1) [facility] Comment on above: Postponed from 04/08 (Declined at this time) Start: 07-21-2024 Covid-19 Vaccine ( season) Covid-19 Vaccine () [facility] Comment on above: Postponed from 04/22 (Declined at this time) Start: 04-22-2024 Covid-19 Vaccine ( season) Covid-19 Vaccine ( season) [facility] Start: 04-22-2024 Influenza vaccination Influenza Vacc ine (#1) [facility] Start: 02-19-2024 Influenza vaccination Influenza Vacc ine (#1) [facility] Comment on above: Postponed from 04/22 (Declined at this time) Start: 08-22-2023 Behavioral Health Screening Behavioral Health Screening [facility] Start: 08-22-2023 Depression Assessment Depression Ass essment [facility] Start: 07-21-2023 End: 10-20-2023 CBC W Auto Differential panel - Blood CBC + DIFF Lab Routine Routine adult health maintenance Expected: 07/21/2023, Expires: 10/20/2023 [facility] Work Phone: Comment on above: Expected: 07/21/2023 , Expires: 10/20/2023 Start: 07-21-2023 End: 10-20-2023 Comprehensive metabolic 2000 panel - Serum or Plasma COMP METABOLIC PANEL Lab Routine Routine adult health maintenance Expected: 07/21/2023, Expires: 10/20/2023 [facility] Work Phone: Comment on above: Expected: 07/21/2023 , Expires: 10/20/2023 Start: 07-21-2023 End: 10-20-2023 Hemoglobin A1c in Blood HGB A1C Lab Routine IFG (impaired fasting glucose) Routine adult health maintenance Expected: 07/21/2023, Expires: 10/20/2023 [facility] Work Phone: Comment on above: Expected: 07/21/2023 , Expires: 10/20/2023 Start: 07-21-2023 End: 10-20-2023 Hepatitis B virus surface Ab [Presence] in Serum HEP B SURF AB Lab Routine Immunity status testing Expected: 07/21/2023, Expires: 10/20/2023 [facility] Work Phone: Comment on above: Expected: 07/21/2023 , Expires: 10/20/2023 Start: 07-21-2023 End: 10-20-2023 Lipid 1996 panel - Serum or Plasma LIPID PANEL BASIC Lab Routine Routine adult health maintenance Expected: 07/21/2023, Expires: 10/20/2023 [facility] Work Phone: Comment on above: Expected: 07/21/2023 , Expires: 10/20/2023 Start: 07-06-2023 Hepatitis B Vaccine (1 of 3 - 3-dose series) Hepatitis B Vaccine (1 of 3 - 3-dose series) [facility] Comment on above: Postponed from 10/09 (Declined at this time) Start: 04-22-2023 Influenza vaccination Influenza Vacc ine (#1) [facility] Start: 01-15-2023 Adult depression screening assessment DEPRESSION SCREENING [facility] Start: 01-15-2023 COVID-19 VACCINE (#1) COVID-19 VACCI NE (#1) [facility] Comment on above: Postponed from 10/09 (Declined at this time) Start: 01-15-2023 PAP TESTING PAP TESTING [facility] Start: 01-15-2023 Screening for malign ant neoplasm of cervix Cervical Cancer Screening [facility] Start: 2022 HPV Testing HPV Testing [facility] Start: 2022 Screening for malign ant neoplasm of cervix [facility] Start: 08-22-2022 Depression Assessment Depression Ass essment [facility] Start: 04-22-2022 Influenza vaccination INFLUENZA (Sea son Ended) [facility] Start: 01-15-2022 End: 03-17-2022 Hemoglobin A1c/Hemoglobin.total in Blood [facility] Work Phone: Comment on above: Expected: 01/15/2022 , Expires: 03/17/2022 Start: 2013 Screening for malign ant neoplasm of cervix Pap Smear [facility] Start: 2011 DTaP,Tdap and Td Vaccines (1 - Tdap) DTaP,Tdap and Td Vaccines (1 - Tdap) [facility] Start: 2011 Urine microalbumin profile [facility] Start: 2010 Adult BMI Follow Up Plan Adult BMI Follow Up Plan [facility] Start: 2010 Adult BMI Screening Adult BMI Screen ing [facility] Start: 2010 Anxiety Screening Anxiety Screening [facility] Start: 2010 Depression Screening Depression Scre ening [facility] Start: 2004 Depression Screening Depression Scre ening [facility] Start: 2004 Tobacco Screening Tobacco Screening [facility] Start: 04-08-1993 Covid-19 Vaccine (#1) Covid-19 Vacci ne (#1) [facility] Start: 1992 Hepatitis B Vaccine (1 of 3 - 3-dose series) Hepatitis B Vaccine (1 of 3 - 3-dose series) [facility] Bacteria identified in Urine by Culture Urine culture Microbiology Routine Missed menses Ordered: 10/18/2024 [facility] Comment on above: Ordered: 10/18/2024 CBC W Auto Different ial panel - Blood CBC and differential Lab Routine Missed menses , unspecified gestational age Ordered: 10/18/2024 [facility] Comment on above: Ordered: 10/18/2024 CHLAMYDIA TRACHOMATI S (GENITO/STI) CHLAMYDIA TRACHOMATIS (GENITO/STI) Lab Routine Exposure to STD Ordered: 12/10/2024 [facility] Comment on above: Ordered: 12/10/2024 Cytology Cervical or vaginal smear or scraping study Pap Smear Pathology and Cytology Routine Well woman exam with routine gynecological exam Ordered: 12/10/2024 [facility] Comment on above: Ordered: 12/10/2024 Hemoglobin A1c/Hemoglobin.total in Blood Hemoglobin A1c Lab Routine Missed menses , unspecified gestational age Ordered: 10/18/2024 [facility] Comment on above: Ordered: 10/18/2024 Hepatitis B virus surface Ag [Presence] in Serum or Plasma by Immunoassay Hepatitis B surface antigen Lab Routine Missed menses , unspecified gestational age Ordered: 10/18/2024 [facility] Comment on above: Ordered: 10/18/2024 Hepatitis C virus Ab [Presence] in Serum or Plasma by Immunoassay Hepatitis C antibody Lab Routine Missed menses , unspecified gestational age Ordered: 10/18/2024 [facility] Comment on above: Ordered: 10/18/2024 HIV-1/HIV-2 antigen/antibody combination immunoassay HIV-1 and HIV-2 antibodies Lab Routine Missed menses , unspecified gestational age Ordered: 10/18/2024 [facility] Comment on above: Ordered: 10/18/2024 Human papilloma viru s DNA [Presence] in Unspecified specimen by Probe with amplification HPV DNA probe, amplified Microbiology Routine Well woman exam with routine gynecological exam Ordered: 12/10/2024 [facility] Comment on above: Ordered: 12/10/2024 Neisseria gonorrhoea e DNA [Presence] in Unspecified specimen by ALPA with probe detection Neisseria gonorrhea DNA probe, direct Lab Routine Exposure to STD Ordered: 12/10/2024 [facility] Comment on above: Ordered: 12/10/2024 Reagin Ab [Presence] in Serum by RPR RPR Lab Routine Missed menses , unspecified gestational age Ordered: 10/18/2024 [facility] Comment on above: Ordered: 10/18/2024 Rubella antibody, IgG Rubella an tibody, IgG Lab Routine Missed menses , unspecified gestational age Ordered: 10/18/2024 [facility] Comment on above: Ordered: 10/18/2024 SURESWAB(R) ADVANCED VAGINITIS PLUS, TMA SURESWAB(R) ADVANCED VAGINITIS PLUS, TMA Pathology and Cytology Routine Exposure to STD Ordered: 12/10/2024 [facility] Work Phone: Comment on above: Ordered: 12/10/2024 Thiamine [Moles/volu me] in Blood [facility] Immunizations Immunization Date Immunization Notes Care Provider Salvatore [facility] 07-21-2023 tetanus toxoid, redu sloane diphtheria toxoid, and acellular pertussis vaccine, adsorbed Berenice Evelyn FIRE OBSERVER.DISTRICT ADMINISTRATOR Work Phone: [facility] 05-03-2011 meningococcal polysaccharide (groups A, C, Y and W-135) diphtheria toxoid conjugate vaccine (MCV4P) Berenice Zepeda FIRE OBSERVER.DISTRICT ADMINISTRATOR Work Phone: [facility] 05-03-2011 tetanus toxoid, redu sloane diphtheria toxoid, and acellular pertussis vaccine, adsorbed Berenice Evelyn FIRE OBSERVER.DISTRICT ADMINISTRATOR Work Phone: [facility] 03-29-2011 human papilloma viru s vaccine, quadrivalent Berenice Evelyn FIRE OBSERVER.DISTRICT ADMINISTRATOR Work Phone: [facility] 11-26-2010 human papilloma viru s vaccine, quadrivalent Berenice Evelyn FIRE OBSERVER.DISTRICT ADMINISTRATOR Work Phone: [facility] 09-28-2010 human papilloma viru s vaccine, quadrivalent Berenice Evelyn FIRE OBSERVER.DISTRICT ADMINISTRATOR Work Phone: [facility] 04-30-1998 diphtheria, tetanus toxoids and acellular pertussis vaccine, unspecified formulation Berenice Zepeda FIRE OBSERVER.DISTRICT ADMINISTRATOR Work Phone: [facility] 04-30-1998 measles, mumps and rubella virus vaccine Berenice Evelyn FIRE OBSERVER.DISTRICT ADMINISTRATOR Work Phone: [facility] 04-30-1998 trivalent poliovirus vaccine, live, oral Berenice Evelyn FIRE OBSERVER.DISTRICT ADMINISTRATOR Work Phone: [facility] 06-07-1994 diphtheria, tetanus toxoids and acellular pertussis vaccine, unspecified formulation Berenice Evelyn FIRE OBSERVER.DISTRICT ADMINISTRATOR Work Phone: [facility] 06-07-1994 hepatitis B vaccine, pediatric or pediatric/adolescent dosage Berenice Evelyn FIRE OBSERVER.DISTRICT ADMINISTRATOR Work Phone: [facility] 06-07-1994 trivalent poliovirus vaccine, live, oral Berenice Evelyn FIRE OBSERVER.DISTRICT ADMINISTRATOR Work Phone: [facility] 03-01-1994 haemophilus influenz ae type b vaccine, conjugate unspecified formulation Berenice Evelyn FIRE OBSERVER.DISTRICT ADMINISTRATOR Work Phone: [facility] 03-01-1994 hepatitis B vaccine, pediatric or pediatric/adolescent dosage Berenice Evelyn FIRE OBSERVER.DISTRICT ADMINISTRATOR Work Phone: [facility] 03-01-1994 measles, mumps and rubella virus vaccine Berenice Evelyn FIRE OBSERVER.DISTRICT ADMINISTRATOR Work Phone: [facility] 07-27-1993 diphtheria, tetanus toxoids and pertussis vaccine Berenice Evelyn FIRE OBSERVER.DISTRICT ADMINISTRATOR Work Phone: [facility] 07-27-1993 haemophilus influenz ae type b vaccine, conjugate unspecified formulation Berenice Evelyn FIRE OBSERVER.DISTRICT ADMINISTRATOR Work Phone: [facility] 07-27-1993 hepatitis B vaccine, pediatric or pediatric/adolescent dosage Berenice Evelyn FIRE OBSERVER.DISTRICT ADMINISTRATOR Work Phone: [facility] 03-16-1993 diphtheria, tetanus toxoids and pertussis vaccine Berenice Evelyn FIRE OBSERVER.DISTRICT ADMINISTRATOR Work Phone: [facility] 03-16-1993 haemophilus influenz ae type b vaccine, conjugate unspecified formulation Berenice Evelyn FIRE OBSERVER.DISTRICT ADMINISTRATOR Work Phone: [facility] 03-16-1993 trivalent poliovirus vaccine, live, oral Berenice Evelyn FIRE OBSERVER.DISTRICT ADMINISTRATOR Work Phone: [facility] 1992 diphtheria, tetanus toxoids and pertussis vaccine [place] Evelyn FIRE OBSERVER.DISTRICT ADMINISTRATOR Work Phone: [facility] 1992 haemophilus influenz ae type b vaccine, conjugate unspecified formulation [place] Evelyn FIRE OBSERVER.DISTRICT ADMINISTRATOR Work Phone: [facility] 1992 trivalent poliovirus vaccine, live, oral [place] Evelyn FIRE OBSERVER.DISTRICT ADMINISTRATOR Work Phone: [facility] Payers Date Payer Category Payer Blue Cross Blue Shield [id number] 2023 Unknown [id number] 2023 Private Health Insurance [employer] [id number] 2023 Unknown [id number] 2022 Self-pay 2022 Unknown [id number] 2019 Blue Cross Blue [facility] - Other [id number] 2019 Unknown [employer] BLUE CARD PPO OOS [id number] 2019-Present [phone] [address] [place] [address] PPO [id number] 2019 Unknown [id number]. [id number] 1992 Unknown [id number] 2.16.840.1.967547.3.579.2. 1286 1992 Unknown [id number] 2.16.840.1.464049.3.579.2. 128 1992 Unknown [id number] 2.16.840.1.974482.3.579.2. 128 1992 Unknown [id number] 2.840.1.261003.3.579.2. 1258 1992 Unknown [id number] 2.840.1.472574.3.579.2. 1258 1992 Unknown [id number] 2.840.1.351701.3.579.2. 1258 1992 Unknown [id number] 2.840.1.293237.3.579.2. 1258 1992 Unknown [id number] 2.840.1.000822.3.579.2. 1258 1992 Unknown [id number] 2.16840.1.154066.3.579.2. 1258 1992 Unknown [id number] 2.16840.1.094367.3.579.2. 1258 1992 Unknown [id number] 2.16840.1.664659.3.579.2. 1259 1992 Unknown [id number] 2.16840.1.428886.3.579.2. 1258 1992 Unknown [id number] 2.16.840.1.672428.3.579.2. 1258 1992 Unknown [id number] 2.16840.1.480543.3.579.2. 1259 1992 Unknown [id number] 2.16.840.1.822773.3.579.2. 1259 1992 Unknown [id number] 2.16.840.1.099577.3.579.2. 1259 1992 Unknown [id number] 2.16.840.1.124797.3.579.2. 1259 1992 Unknown [id number] 2.16.840.1.529915.3.579.2. 1259 Unknown [id number] 2.16.840.1.944263.3.579.2. 531 Unknown [id number] 2.16.840.1.702113.3.579.2. 531 Social History Date Type Detail Facility Tobacco smoking stat [facility] Tobacco smoking consumption unknown [facility] Start: 1990 Sex Assigned At Not on file [facility] Start: 01-15-2022 End: 02-07-2025 Tobacco smoking status DEIS Never smoked tobacco [facility] Start: 01-15-2022 End: 02-07-2025 Tobacco use and exposure Smokeless tobacco non-user [facility] Start: 01-15-2022 End: 08-23-2023 Alcohol intake Current drinker of alcohol (finding) [facility] Start: 01-31-2019 End: 01-15-2022 Alcohol intake [facility] Start: 01-12-2022 History SDOH Alcohol Frequency 2 [facility] Start: 01-12-2022 History SDOH Alcohol Std Drinks 1 [facility] Start: 01-15-2022 History SDOH Alcohol Comment occ. drink [facility] Start: 01-12-2022 History SDOH Social Connections Phone 5 [facility] Start: 01-12-2022 History SDOH Social Connections Get Together 4 [facility] Start: 01-12-2022 History SDOH Social Connections Living 7 [facility] Start: 01-12-2022 History SDOH Physical Activity MPS 3 [facility] Start: 1990 Sex Assigned At Female [facility] Start: 01-31-2019 End: 01-12-2022 Social connection and isolation panel [facility] Do you belong to any clubs or organizations such as denominational groups, unions, fraternal or athletic groups, or school groups? No [facility] Are you now , , , , never or living with a partner? Never [facility] How often to you hav e a drink containing alcohol? Monthly or less [facility] How many standard dr inks containing alcohol do you have on a typical day? 1 or 2 [facility] How often do you hav e 6 or more drinks on 1 occasion? Never [facility] How hard is it for y ou to pay for the very basics like food, housing, medical care, and heating Not hard at all [facility] Do you feel stress - tense, restless, nervous, or anxious, or unable to sleep at night because your mind is troubled all the time - these days [OSQ] Not at all [facility] (I/We) worried delbert er (my/our) food would run out before (I/we) got money to buy more. Never true [facility] Start: 01-12-2022 Gender identity Identifies as female gender (finding) [facility] Are you now , , , , never or living with a partner? Living with partner [facility] How hard is it for y ou to pay for the very basics like food, housing, medical care, and heating Not very hard [facility] Do you feel stress - tense, restless, nervous, or anxious, or unable to sleep at night because your mind is troubled all the time - these days [OSQ] To some extent [facility] The food that (I/we) bought just didn't last, and (I/we) didn't have money to get more. DK or Refused [facility] Start: 10-17-2023 End: 03-12-2025 Alcoholic beverage intake Ex-drinker (finding) [facility] Start: 10-17-2023 Alcohol Comment Caffeine intake: 1cup coffee/ day [facility] Start: 09-14-2023 [facility] Start: 04-22-2015 Sex Female (finding) [facility] Equipment Procedure Code Equipment Code Equipment Origin al Text Equipment Identifier Dates 1 strip by In Vi tro route Daily Use in the morning prior to breakfast, 1 hour after each meal for a total of 4times daily. [id number] Start: 02-04-2025 End: 03-06-2025 1 each by In Vit ro route Daily Use to check FSBS four times daily [id number] Start: 02-04-2025 End: 03-06-2025 Use to inject insulin nightly [id number] Start: 03-12-2025 Goals Date Patient Goal Desired Activity /State Personal health goal Clinical Notes 01-08-2022 to 04-15-2025 Telephone Encounter - Beulah Miller RN - 04/15/2025 3:08 PM EDTTelephone Encounter - eBulah Miller RN - 04/15/2025 3:08 PM EDTSamia King LPN - 04/10/2025 3:00 PM EDTPatient Instructions Note Date & Type Note Facility 04-15-2025 Miscellaneous Notes Received BG results and all are in target range. Called and left message of praise for all efforts and to call if questions. To send next week again. No changes. documented in this encounter [facility] 04-15-2025 Telephone encounter Note Received BG results and all are in target range. Called and left message of praise for all efforts and to call if questions. To send next week again. No changes. [facility] 04-10-2025 History of Present illness Narrative [...] nursing note reviewed. Exam conducted with a toll relief operator present. Vitals: Estimated body mass index is 37.22 kg/m as calculated from the following: Height as of 24: 5' 3 . Weight as of this encounter: 210 lb 1.9 oz. BP: 120/70 Patient's last menstrual period was 08/12/2024. ASSESSMENT & PLAN ICD-10-CM 1. 34 weeks gestation of ([facility]) Z3A.34 POCT urinalysis dipstick manually resulted 2. Third trimester ([facility]) Z34.93 POCT urinalysis dipstick manually resulted 3. H/O gastric sleeve Z90.3 4. Insulin controlled gestational diabetes mellitus (GDM) during , antepartum ([facility]) O24.414 Return OB: Patient presents today for [...] Roscoe Diaz DO documented in this encounter [facility] 04-09-2025 Miscellaneous Notes Called regarding blood sugar logs from 04/01/2025-04/07/2025 but the call went straight to voicemail. She had 4 elevated post prandial blood sugars, no pattern, but she did note that they were most likely related to higher carbohydrate meals. Continue with 10 units of Lantus and sending blood sugars weekly. Reminded to schedule a follow-up visit with a [facility] provider for the second week in April. documented in this encounter [facility] 04-09-2025 Telephone encounter Note Called regarding blood sugar logs from 04/01/2025-04/07/2025 but the call went straight to voicemail. She had 4 elevated post prandial blood sugars, no pattern, but she did note that they were most likely related to higher carbohydrate meals. Continue with 10 units of Lantus and sending blood sugars weekly. Reminded to schedule a follow-up visit with a [facility] provider for the second week in April. [email or web address] [facility] Work Phone: 04-01-2025 Miscellaneous Notes Left message for patient to call MFM back to reschedule a 4 week video visit shobha Marr. [facility] 04-01-2025 Telephone encounter Note Left message for patient to call MFM back to reschedule a 4 week video visit [facility] Marr. [facility] 04-01-2025 History of Present illness Narrative [...] nightly, Disp: 100 each, Rfl: 2 25-IRON [id number] ORAL, Take 1 tablet by mouth in [...] Delivery recommendations : - Recommend delivery at [id number] - reviewed with pateint - Discuss delivery [...] values to us weekly by e-mail to: [email or web address] or by fax to: [phone] Daisha Briseno PA-C Maternal- Medicine Office phone: [phone] Daisha Briseno PA-C 04/01/25 1331 documented in this encounter [facility] 04-01-2025 Miscellaneous Notes Left message to remind patient of video visit today at 10 AM. Call back number given to reschedule if unable to keep appointment. documented in this encounter [facility] 04-01-2025 Telephone encounter Note Left message to remind patient of video visit today at 10 AM. Call back number given to reschedule if unable to keep appointment. [facility] 03-27-2025 History of Present illness Narrative [...] nursing note reviewed. Exam conducted with a toll relief operator present. Vitals: Estimated body mass index is 36.28 kg/m as calculated from the following: Height as of 24: 5' 3 . Weight as of this encounter: 204 lb 12.8 oz. BP: 116/72 Patient's last menstrual period was 08/12/2024. ASSESSMENT & PLAN ICD-10-CM 1. Third trimester ([facility]) Z34.93 POCT urinalysis dipstick manually resulted 2. H/O gastric sleeve Z90.3 POCT urinalysis dipstick manually resulted 3. Gestational diabetes mellitus (GDM), antepartum, gestational diabetes method of control unspecified ([facility]) O24.419 POCT urinalysis dipstick manually resulted 4. 32 weeks gestation of ([facility]) Z3A.32 POCT urinalysis dipstick manually resulted Return [...] appointment. Patient continues to send FSBS to [facility] and doing well and [facility] continues to manage her Lantus dosing. She will begin NST/ BPP this week. Documented by Adelaida Dugan NP on behalf of: Roscoe Diaz DO documented in this encounter [facility] 03-26-2025 Miscellaneous Notes Called regarding blood sugar logs from 03/18/2025-03/24/2025 but received voicemail. Caryl had one elevated fasting blood sugar ( she may not of had a snack the night before) and three elevated blood sugars after dinner. She is taking 10 units of Lantus in the evening. Will send a MyChart message. [facility] Telephone encounter Note Called regarding blood sugar logs from 03/18/2025-03/24/2025 but received voicemail. Caryl had one elevated fasting blood sugar ( she may not of had a snack the night before) and three elevated blood sugars after dinner. She is taking 10 units of Lantus in the evening. Will send a MyChart message. [facility] Work Phone: 03-19-2025 Miscellaneous Notes Blood glucose [...] now in target. documented in this encounter [facility] 03-19-2025 Telephone encounter Note Blood glucose log from 03/11/25 to 03/17/25 received. Patient did not answer. I left a voicemail asking her to check for a new MyChart message that I am going to leave with questions about her dinner values (4 out of 7 were still elevated). Patient started Lantus on 03/12/25 and all fasting BG now in target. [facility] 03-13-2025 History of Present illness Narrative Reason [...] PLAN ICD-10-CM 1. 30 weeks gestation of ([facility]) Z3A.30 POCT urinalysis dipstick manually resulted 2. Third trimester ([facility]) Z34.93 POCT urinalysis dipstick manually resulted 3. H/O gastric sleeve Z90.3 4. Gestational diabetes mellitus (GDM), antepartum, gestational diabetes method of control unspecified ([facility]) O24.419 Return OB: Patient presents today for [...] of: SLICK Matias documented in this encounter [facility] 03-12-2025 History of Present illness Narrative Headache/epigastric pain/blurry vision/swelling? Occasional Cramping/contractions? No Spotting or vaginal bleeding? No Loss or gush of fluid like your water may have broken? No Recent ER visits or hospitalizations? No Any concerns that you would like me to mention to the provider today? No Maternal- Medicine Consultation HISTORY OF PRESENT ILLNESS: Cayrl Zamarripa is a 34 y.o. female at [...] nausea or vomiting., Disp: , Rfl: 25-IRON [id number] ORAL, Take 1 tablet by mouth in [...] more likely to fail compared to insulin. 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 documented in this encounter [facility] 03-05-2025 Miscellaneous Notes Called regarding blood sugar logs from 02/25/2025-03/03/2025 but the call went directly to [facility]. Caryl had 1 one elevated fasting blood sugar, 1 elevated blood sugar after breakfast, one elevated blood sugar after lunch, and 4 elevated blood sugars after dinner. Will send a Smallaa message. documented in this encounter [facility] 03-05-2025 Telephone encounter Note Called regarding blood sugar logs from 02/25/2025-03/03/2025 but the call went directly to [employer] [facility]. Caryl had 1 one elevated fasting blood sugar, 1 elevated blood sugar after breakfast, one elevated blood sugar after lunch, and 4 elevated blood sugars after dinner. Will send a Smallaa message. [facility] Work Phone: 02-27-2025 History of Present illness Narrative Reason for Appointment: Patient ID: Caryl Zamarripa is a 34 y.o. female who presents for Routine Visit Patient presents today for Return OB appointment. MEDICATIONS Current Outpatient Medications Medication Instructions Alcohol Swabs (Alcohol Prep Pad) 70 % pads 1 Pad, Topical, Daily, Use four times daily to check FSBS. Blood Glucose Monitoring Suppl ([employer] Glucometer) w/Device kit 1 kit, Does not [...] nursing note reviewed. Exam conducted with a toll relief operator present. Vitals: Estimated body mass index is 36.1 kg/m as calculated from the following: Height as of 07/25/24: 5' 3 . Weight as of this encounter: 203 lb 12.8 oz. BP: 110/60 Patient's last menstrual period was 08/12/2024. ASSESSMENT & PLAN ICD-10-CM 1. 28 weeks gestation of ([facility]) Z3A.28 POCT urinalysis dipstick manually resulted 2. Third trimester ([facility]) Z34.93 POCT urinalysis dipstick manually resulted 3. H/O gastric sleeve Z90.3 4. Gestational diabetes mellitus (GDM), antepartum, gestational diabetes method of control unspecified ([facility]) O24.419 Return OB: Patient presents today for [...] Roscoe Diaz DO documented in this encounter [facility] 02-26-2025 Miscellaneous Notes Called regarding [...] a MyChart message. documented in this encounter [facility] 02-26-2025 Telephone encounter Note Called regarding blood [...] she has questions. Will also send a [employer] message. [facility] Work Phone: 02-14-2025 Group counseling note Patient: [...] of food logs and blood glucoses to , next Tuesday night/Tuesday morning. Please refer to health habits for other goals. Breakfast 6-6:30 AM 15-25 grams of CHO, Snack 9 AM 15-30 grams of CHO, Lunch 11:30-Noon 45 grams of CHO, Snack 2-3 PM 15-30 grams of CHO, Dinner 6 PM 45 grams of CHO, HS Snack 8-9 PM 15-30 grams of CHO. Face to face time was 70 minutes. [facility] Work Phone: 02-14-2025 Miscellaneous Notes Patient: Caryl [...] of food logs and blood glucoses to , next Tuesday night/Tuesday morning. Please refer [...] was 70 minutes. documented in this encounter [facility] 02-11-2025 History of Present illness Narrative Reason for Appointment: Patient ID: Caryl Zamarripa is a 34 y.o. female who presents for Routine Visit Patient presents today for Return OB appointment. MEDICATIONS Current Outpatient Medications Medication Instructions Alcohol Swabs (Alcohol Prep Pad) 70 % pads 1 Pad, Topical, Daily, Use four times daily to check FSBS. Blood Glucose Monitoring Suppl ([employer] Glucometer) w/Device kit 1 kit, Does not [...] nursing note reviewed. Exam conducted with a toll relief operator present. Vitals: Estimated body mass index is 35.87 kg/m as calculated from the following: Height as of 24: 5' 3 . Weight as of this encounter: 202 lb 8 oz. BP: 110/60 Patient's last menstrual period was 08/12/2024. ASSESSMENT & PLAN ICD-10-CM 1. Second trimester ([facility]) Z34.92 POCT urinalysis dipstick manually resulted 2. 26 weeks gestation of ([facility]) Z3A.26 3. H/O gastric sleeve Z90.3 US [...] Adelaida Dugan NP documented in this encounter [facility] 01-10-2025 History of Present illness [...] nursing note reviewed. Exam conducted with a toll relief operator present. Vitals: Estimated body mass index [...] Roscoe Diaz DO documented in this encounter [facility] 12-10-2024 History of Present illness [...] nursing note reviewed. Exam conducted with a toll relief operator present. Vitals: Estimated body mass index [...] of: SLICK Matias documented in this encounter [facility] 11-08-2024 History of Present illness [...] Roscoe Diaz DO documented in this encounter [facility] 10-18-2024 History of Present illness [...] or undercooked meat, and stay away from [facility]. Patient has also been advised to [...] Monika Mesa LPN documented in this encounter [facility] 08-02-2024 History of Present illness Narrative Images from the original note were not included. [address], [address] [facility], [address] P: [phone] F: [phone] HPI Historian of HPI: patient Caryl Zamarripa [...] Left Turbinates: Enlarged and swollen. Mouth/Throat: Lips: [place]. Mouth: Mucous membranes are moist. Pharynx: Oropharynx [...] tablet; Refill: 0 documented in this encounter [facility] 07-25-2024 History of Present illness [...] Use: Not At Risk (07/19/2023) Received from [facility] AUDIT-C Frequency of Alcohol Consumption: Monthly or less Average Number of Drinks: 1 or 2 Frequency of Binge Drinking: Never Depression: Not at risk (06/29/2024) Received from [facility] PHQ-2 PHQ-2 score: 0 Physical Activity: Insufficiently Active (07/19/2023) Received from [facility] Exercise Vital Sign Days of [...] Bhavik Jain DO documented in this encounter [facility] 06-29-2024 Note HNO ID: [id number] Author: BERENICE ZEPEDA APRN.DISTRICT ADMINISTRATOR Service: ? Author Type: Nurse Practitioner Type: [...] - PHENTERMINE 37.5 MG TABLET Berenice Zepeda APRN.DISTRICT ADMINISTRATOR documented in this encounter [facility] 03-06-2024 Telephone encounter Note Order formatted Please advise [facility] 03-06-2024 Miscellaneous Notes Order formatted Please advise documented in this encounter [facility] 09-23-2023 Note HNO ID: [id number] Author: BERENICE ZEPEDA APRN.GIORGI Service: ? Author Type: Nurse Practitioner Type: Progress Notes Filed: 09/23/2023 15:52 Note Text: VIRTUAL VISIT PROGRESS NOTE This is a virtual visit using 1SDKom Video Visit. It required patient-provider interaction for the medical decision making as documented below. I have communicated my name and active licensure. The patient's identity and physical location were verified at the time of this visit. Either the patient or their legal traffic workforce representative has been informed of the risks [...] Outpatient Medications Medication Sig Omeprazole Magnesium (ACID MORTGAGE COORDINATOR, OMEPRAZOLE,) 20 mg cpDR No current facility-administered [...] on file for this visit. Berenice Zepeda APRN.[facility] 09-23-2023 History of Present illness Narrative VIRTUAL VISIT PROGRESS NOTE This is a virtual visit using Smallaa Zoom Video Visit. It required patient-provider interaction for the medical decision making as documented below. I have communicated my name and active licensure. The patient's identity and physical location were verified at the time of this visit. Either the patient or their legal traffic workforce representative has been informed of the risks [...] Outpatient Medications Medication Sig Omeprazole Magnesium (ACID MORTGAGE COORDINATOR, OMEPRAZOLE,) 20 mg cpDR No current facility-administered [...] Berenice Zepeda APRN.CNP documented in this encounter [facility] 08-23-2023 Note HNO ID: [id number] Author: BERENICE ZEPEDA APRN.CNP Service: ? Author [...] PHENTERMINE 37.5 MG TABLET Berenice Zepeda APRN.GIORGI [facility] 07-21-2023 Note HNO ID: [id number] Author: Berenice Zepeda APRN.DISTRICT ADMINISTRATOR Service: ? Author Type: Nurse Practitioner Type: Progress Notes Filed: 07/22/2023 10:16 AM Note Text: Caryl Zamarripa is a 32 year old female here today for review of established medical problems as well as comprehensive physical examination. Obesity S/p gastric sleeve surgery in 03/2022 at [facility] in [place] about 70lb, has reached plateau Gym 4 days per week with cardio (treadmill, elliptical) Maybe not enough water Tries to focus on more protein, lower carbs Last 10 Encounter Wt Readings: Date: Wt: 07/21/2023 80.1 kg (176 lb 8 oz) 07/06/2022 81.6 kg (180 lb) 01/15/2022 104.3 kg (230 lb) [facility]ING [facility] HM needs: Hepatitis B Vaccine(1 of 3 - 3-dose series) Never done Depression Assessment Never done HPV Testing Never done PAST MEDICAL HISTORY Diagnosis Date GERD (gastroesophageal reflux disease) Prediabetes PAST SURGICAL HISTORY Procedure Laterality Date PT ED BARIATRIC AND METABOLIC gastric sleeve 03/2022 ALLERGIES Patient has no known allergies. 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 Sensation grossly intact. Breast/Pelvic: Per TIRE BUILDING SUPERVISOR ASSESSMENT/PLAN: 1. Routine adult health maintenance - ICD9: V70.0, ICD10: Z00.00 (primary diagnosis) - Counseled on healthy diet and regular exercise - Calcium intake with supplements or by diet of 1000 mg/day for under 50, 0903-3400 mg/day for 50+ - Discussed need and [...] comorbidity present - (more content not included)... [facility] 07-21-2023 History of Present illness Narrative Caryl Zamarripa is a 32 year old female here today for review of established medical problems as well as comprehensive physical examination. Obesity S/p gastric sleeve surgery in 03/2022 at [facility] in [place] about 70lb, has reached plateau Gym 4 days per week with cardio (treadmill, elliptical) Maybe not enough water Tries to focus on more protein, lower carbs Last 10 Encounter Wt Readings: Date: Wt: 07/21/2023 80.1 kg (176 lb 8 oz) 07/06/2022 81.6 kg (180 lb) 01/15/2022 104.3 kg (230 lb) [facility] HM needs: Hepatitis B Vaccine(1 of 3 - 3-dose series) Never done Depression Assessment Never done HPV Testing Never done PAST MEDICAL HISTORY Diagnosis Date GERD (gastroesophageal reflux disease) Prediabetes PAST SURGICAL HISTORY Procedure Laterality Date PT ED BARIATRIC AND METABOLIC gastric sleeve 03/2022 ALLERGIES Patient has no known allergies. 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 Sensation grossly intact. Breast/Pelvic: Per TIRE BUILDING SUPERVISOR ASSESSMENT/PLAN: 1. Routine adult health maintenance - ICD9: V70.0, ICD10: Z00.00 (primary diagnosis) - Counseled on healthy diet and regular exercise - Calcium intake with supplements or by diet of 1000 mg/day for under 50, 4400-5706 mg/day for 50+ - Discussed need and [...] - HEP B SURF AB Berenice Zepeda APRN.DISTRICT ADMINISTRATOR ' documented in this encounter [facility] 06-29-2023 Miscellaneous Notes Sent Valtrex 1 gram twice/day for 2 days with one refill. High stress can cause cold sores? How is your stress level? documented in this encounter [facility] 01-15-2022 Instructions Dasha Lujan MD - 01/15/2022 12:05 PM EDT -Get Hgba1c and K level checked in the near future. -Encourage you to lose 2 lbs/week as a healthy way via diet and exercise -Should you have any questions or concerns, do not hesitate to contact me anytime via my chart (Dr.Sunir Lujan) documented in this encounter [facility] 01-15-2022 History of Present illness Narrative Caryl Zamarripa is a 31 year old female who presents with Establish Care -Pt is here to Establish Care. 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 Says all labs checked out fine per pt discussion. Pt says she did get her thyroid lab work checked 4 years ago, and all checked out fine. Thyroid blood work was also checked recently. -OARRS reviewed: clean -Assembler [employer] Building: deferred seeing one at this time as pt is undergoing gastric sleeve evaluation (Bariatric Surgery) at [facility]. Pt says that she just needs [...] focal deficits PSYCH: no suicide thoughts ASSESSMENT/PLAN: (Z01.328) Preoperative clearance (primary encounter diagnosis) -Cleared for bariatric surgery from my standpoint. (E66.9) Obesity (BMI 30-39.9) -Encouraged her to lose 2 lbs/week as a healthy way via diet and exercise -Going via the process to get Bariatric Surgery done at [facility]. (R73.9) Blood glucose elevated Plan: HGB A1C (E87.5) Hyperkalemia Plan: POTASSIUM BLD -Will have her get K level rechecked. (K76.0) Hepatic steatosis -LFT were normal. -Encourage weight reduction and avoid alcohol and tylenol as much as possible. -Will continue to monitor LFT. Dasha Lujan MD documented in this encounter [facility] 01-08-2022 Miscellaneous Notes Will advise on Tuesday when he returns Patient calling stating Dr Lujan agreed to take her into his practice but no documentation found in patient chart. Please advise. documented in this encounter [facility] Evaluation note Diagnosis Preoperative clearance- Primary Preoperative examination, unspecified Obesity (BMI 30-39.9) Obesity, unspecified Blood glucose elevated Other abnormal glucose Hyperkalemia Hyperpotassemia Hepatic steatosis Other chronic nonalcoholic liver disease [facility] noteNo assessment information availableSum[facility] Work Phone: Evaluation note* Diagnosis Routine adult [...] examination documented [facility]* Diagnosis Encounter for weight management Overweight (BMI 25.0-29.9) Overweight [facility] Diagnosis Encounter for weight management- Primary Overweight [facility] Diagnosis Rectal bleeding- Primary Hemorrhage of rectum and anus documented in this encounter [facility]* Diagnosis Acute cough- Primary Chest congestion Other symptoms involving respiratory system and chest Bronchitis Bronchitis, not specified as acute or chronic documented in this encounter [facility]* Diagnosis Missed menses , unspecified gestational age Encounter for supervision of normal first in first trimester Nausea and vomiting in Unspecified vomiting of , unspecified as to episode of care documented in this encounter [facility]* Diagnosis 12 weeks gestation of documented in this encounter [facility]* Diagnosis Well woman exam with routine gynecological exam Routine gynecological examination Second trimester state, incidental 17 weeks gestation of Exposure to STD Need for maternal serum alpha-protein (MSAFP) screening Screening, , for anatomic survey Encounter for anatomic survey documented in this encounter [facility]* Diagnosis 21 weeks gestation of Second trimester state, incidental Diabetes mellitus screening Screening for diabetes mellitus documented in this encounter [facility]* Diagnosis Second trimester (HHS-HCC) state, incidental 26 weeks gestation of ([facility]HS[facility]HCC) H/O gastric sleeve documented in this encounter [facility]* Diagnosis Gestational diabetes mellitus (GDM) in second trimester, gestational diabetes method of control unspecified- Primary documented [facility]* Diagnosis 28 weeks gestation of ([facility]) Third trimester (HHS-HCC) state, incidental H/O gastric sleeve Gestational diabetes mellitus (GDM), antepartum, gestational diabetes method of control unspecified ([facility]) documented in this encounter [facility]* Diagnosis Gestational diabetes mellitus (GDM) in second trimester, gestational diabetes method of control unspecified- Primary Gestational diabetes requiring insulin Abnormal maternal glucose tolerance, complicating , childbirth, or the puerperium, unspecified as to episode of care [facility] Diagnosis 30 weeks gestation of ([facility]) Third trimester ([facility]HS[facility]HCC) state, incidental H/O gastric sleeve Gestational diabetes mellitus (GDM), antepartum, gestational diabetes method of control unspecified ([facility]) [facility]* Diagnosis Gestational diabetes requiring insulin- Primary Abnormal maternal glucose tolerance, complicating , childbirth, or the puerperium, unspecified as to episode of care [facility]* Diagnosis Third trimester ([facility]HCC) [...] encounter [facility] HealthcareInstructionsNot on filedocumented in [facility] SystemInstructionsNot on filedocumented in this encounter[facility] SystemInstructionsNot on filedocumented in this encounterReg[facility] SystemInstructionsNot on filedocumented in this encounter[facility] InstructionsNot on filedocumented in this [facility] InstructionsNot on filedocumented in this [facility] Summary Purpose Family History No Family [...] unspecified whether serious comorbidity present Berenice Zepeda, BRETT.DISTRICT ADMINISTRATOR [address] [place] [address] Referral ID Status Reason Start Date Expiration Date Visits Re quested Visits Authorized [id number] Closed 1 1 Specialty Diagnoses / Procedures Referred By Zachery t Referred To Contact Diagnoses Encounter for weight management Overweight (BMI 25.0-29.9) Berenice Zepeda APRN.DISTRICT ADMINISTRATOR [address] [place] [address] Referral ID Status Reason Start Date Expiration Date Visits Re quested Visits Authorized [id number] Closed 1 1 Additional Source Comments Source Comments (unrecognize d section and content) In the event this informatio n is protected by the Federal Confidentiality of Alcohol and Drug Abuse Patient Records regulations: The Federal rules restrict any use of the information to criminally investigate or prosecute any alcohol or drug abuse patient.[facility] DublinIn the event this information is protected by the Federal Confidentiality of Alcohol and Drug Abuse Patient Records regulations: The Federal rules restrict any use of the information to criminally investigate or prosecute any alcohol or drug abuse patient.[facility] DublinIn the event this information is protected by the Federal Confidentiality of Alcohol and Drug Abuse Patient Records regulations: The Federal rules restrict any use of the information to criminally investigate or prosecute any alcohol or drug abuse patient.[facility] DublinIn the event this information is protected by the Federal Confidentiality of Alcohol and Drug Abuse Patient Records regulations: The Federal rules restrict any use of the information to criminally investigate or prosecute any alcohol or drug abuse patient.[facility] DublinIn the event this information is protected by the Federal Confidentiality of Alcohol and Drug Abuse Patient Records regulations: The Federal rules restrict any use of the information to criminally investigate or prosecute any alcohol or drug abuse patient.[facility] DublinIn the event this information is protected by the Federal Confidentiality of Alcohol and Drug Abuse Patient Records regulations: The Federal rules restrict any use of the information to criminally investigate or prosecute any alcohol or drug abuse patient.[facility] DublinIn the event this information is protected by the Federal Confidentiality of Alcohol and Drug Abuse Patient Records regulations: The Federal rules restrict any use of the information to criminally investigate or prosecute any alcohol or drug abuse patient.[facility] Reason for Visit (unrecogniz ed section and [...] Surgery Diagnoses Rectal bleeding Procedures [place] OFFICE/OUTPATIENT [facility] Sina Jain, [address] [address] Phone: tel: fax: Sina aJin, [address] [address] Phone: tel: fax: Referral ID Status Reason Start Date Expiration Date V isits Requested Visits Authorized [id number] Closed Specialty Services Required 07/11/2024 01/07/2025 1 1 Reason Comments Amenorrhea Reason Comments Routine Visit Reason Comments Elevated Glucose Tolerance Test Specialty Diagnoses / Procedures Referred By Zachery kenyon Referred To Contact Maternal and Medicine Diagnoses Gestational diabetes mellitus (GDM) in second trimester, gestational diabetes method of control unspecified Roscoe Diaz, DO [address] [place] [address] Phone: tel: fax: [facility] [address] [facility] [place] [address] Phone: tel: fax: Referral ID Status Reason Start Date Expiration Date Visits Requested Visits Authorized [id number] Pending Review Specialty Services Required 02/06/2025 02/06/2026 1 1 Reason Comments MED START Care Teams (unrecognized sec tion and content) Tip Finisher Relationship Specialty [place] [address] [place] [address] PCP - General Internal Medicine 01/11/22 Team Status: Inactive Member Role Status Dates Dasha Lujan MD Primary Care Provider Active Reena Breaux APRN WEAVING INSTRUCTOR-C Attending Provider Activ e Team Status: Active Member Role Status Dates Dasha Lujan MD Primary Care Provider Active Tip Finisher Relationship Specialty [place] [address] [place] [address] PCP - General Internal Medicine 01/11/22 Tip Finisher Relationship Specialty [place] [address] [place] [address] PCP - General Internal Medicine 01/11/22 Tip Finisher Relationship Specialty [place] [address] [place] [address] PCP - General Internal Medicine 01/11/22 Tip Finisher Relationship Specialty [place] [address] [place] [address] PCP - General Internal Medicine 01/11/22 Tip Finisher Relationship Specialty [place] [address] [place] [address] PCP - General Internal Medicine 01/11/22 Tip Finisher Relationship Specialty Start Date End Date Unallocated, Chiara Pate MD Pending sale to [facility] [address] [place] [address] PCP - General Family Medicine 10/17/23 Tip Finisher Relationship Specialty Start Date End Date Unallocated, [place] [address] PCP - General Family Medicine 10/17/23 Tip Finisher Relationship Specialty Start Date End Date Unallocated, Chiara Pate MD Pending sale to [facility] [address] [place] [address] PCP - General Family Medicine 10/17/23 Tip Finisher Relationship Specialty Start Date End Date Unallocated, Chiara Pate MD Pending sale to [facility] [address] [place] [address] PCP - General Family Medicine 10/17/23 Tip Finisher Relationship Specialty Start Date End Date Unallocated, Chiara Pate MD Pending sale to [facility] [address] [place] [address] PCP - General Family Medicine 10/17/23 Tip Finisher Relationship Specialty Start Date End Date Unallocated, Chiara Pate MD Pending sale to [facility] [address] [facility] [place] [address] PCP - General Family Medicine 10/17/23 Edu Alvarez, WEAVING INSTRUCTOR [address] [place] [address] PCP - [facility] 09/22/24 Tip Finisher Relationship Specialty Start Date End Date Unallocated, Chiara Pate MD Pending sale to [facility] [address] [facility] [place] [address] PCP - General Family Medicine 10/17/23 Edu Alvarez, WEAVING INSTRUCTOR [address] [place] [address] PCP - [facility] 09/22/24 Tip Finisher Relationship Specialty Start Date End Date Unallocated, Chiara Pate MD [address] [place], [place] [address] [address] PCP - General Family Medicine 10/17/23 Edu Alvarez, WEAVING INSTRUCTOR [address] [place] [address] PCP - [facility] 09/22/24 Tip Finisher Relationship Specialty Start Date End Date Unallocated, Chiara Pate MD Pending sale to [place] [place] [address] PCP - General Family Medicine 10/17/23 Edu Alvarez WEAVING INSTRUCTOR [address] [place] [address] PCP - [facility] 09/22/24 Tip Finisher Relationship Specialty Start Date End Date Unallocated, Chiara Pate MD [address] [place] [address] PCP - General Family Medicine 10/17/23 Edu Alvarez, WEAVING INSTRUCTOR [address] [place] [address] PCP - [facility] 09/22/24 Tip Finisher Relationship Specialty Start Date End Date Unallocated, Chiara Pate MD [address] [place], [place] [address] [address] PCP - General Family Medicine 10/17/23 Edu Alvarez, TONIA [address] [place] [address] PCP - [facility] 09/22/24 Tip Finisher Relationship Specialty Start Date End Date Unallocated, Chiara Pate MD [facility] [place] [address] PCP - General Family Medicine 10/17/23 Edu Alvarez NP [address] [place] [address] PCP - [facility] 09/22/24 Tip Finisher Relationship Specialty Start Date End Date Unallocated, Chiara Pate MD [address] [place] [address] PCP - General Family Medicine 10/17/23 Edu Alvarez NP [address] [place] [address] PCP - [facility] 09/22/24 Tip Finisher Relationship Specialty Start Date End Date Unallocated, Chiara Pate MD [address] [place] [address] PCP - General Family Medicine 10/17/23 Edu Alvarez WEAVING INSTRUCTOR [address] [place] [address] PCP - [facility] 09/22/24 Tip Finisher Relationship Specialty Start Date End Date Unallocated, Chiara Pate MD [address] [place] [address] PCP - General Family Medicine 10/17/23 Edu Alvarez NP [address] [place] [address] PCP - [facility] [employer] 09/22/24 INFORMATION SOURCE (unrecogn ized section and content) DATE CREATED AUTHOR 01/16/2022 [facility] DATE CREATED AUTHOR AUTHOR'S ORGANIZ ATION 10/18/2022 [facility] DATE CREATED AUTHOR AUTHOR'S ORGANIZ ATION 07/01/2024 [facility] DATE CREATED AUTHOR AUTHOR'S ORGANIZ ATION 04/02/2025 [facility] DATE CREATED AUTHOR AUTHOR'S ORGANIZ ATION 04/12/2025 [facility] EPIC Goals (unrecognized section [...] BE BASED ON THE PRIMARY CLINICAL RECORDS. [employer] provides no warranty or guarantee of the accuracy or completeness of information in this document.
[2025-04-23 16:25] VITALS: BP 111/66; PULSE 75
[2025-04-23 17:09] VITALS: BP 121/72; PULSE 90
== END 2025-04-23 17:12 | disposition home or self-care (01) ==
LOC: US 15:56 → FBC 16:07
PROVIDERS: Visit Provider Physician Assistant
DX: O99.843 Bariatric surgery status complicating pregnancy, third trimester (principal); Z3A.36 36 weeks gestation of pregnancy
CPT/HCPCS: 76818

== ENCOUNTER 2025-04-24 14:44 | Outpatient (REF) | payer BC, SELFPAY ==
--- OUTSIDE RECORDS SUMMARY | 2024-04-12 04:45 | XMS_ITS | Continuity of Care Document ---
Author Organization [facility] Address [address] [facility] [address] [place] [address] Phone Care Team Providers Care Quality Manager Name Role Phone eRena Breaux CNP Unavailable Procedures Procedure Date OFFICE/OUTPATIENT VISIT, EST OFFICE/OUTPATIENT VISIT, EST OFFICE/OUTPATIENT VISIT, EST OFFICE/OUTPATIENT VISIT, EST POSTOP FOLLOW-UP VISIT POSTOP FOLLOW-UP VISIT LAP SLEEVE GASTRECTOMY Sleeve Gastrectomy OFFICE/OUTPATIENT VISIT, EST PSYCH DIAGNOSTIC EVALUATION PSYCL/NRPSYC TST PHY/QHP 1ST PSYCL/NRPSYC TST PHY/QHP OFFICE/OUTPATIENT VISIT, [facility] Advance Directives Directive Yes / No Effective Date File Name No Information Encounters Encounter Description Practice Location Reason(s) For Visit Diagnoses Date Provider Providers Copied on Encounter OFFICE/OUTPATI ENT VISIT, [facility], [address] [facility] [address], [place], [place], [address], [place] tel:[phone] [facility] No Information Saeid Valles. [address] [facility] [address], [place], [place], [address], [place]. tel:[phone] Referring Provider: Reena Breaux, [address] [facility] [facility] [address], [place], [address]. tel:[phone] OFFICE/OUTPATI ENT VISIT, [facility] [facility], [address] [place] [address] [address], [place], [place], [address], [place] tel:[phone] [facility] No Information Saeid Valles. [address], [facility] [place], [address], [place]. tel:[phone] Referring Provider: Reena Breaux, [facility] [address], [place], [address]. tel:[phone] OFFICE/OUTPATI ENT VISIT, [facility], [address] [facility] [address], [place], [place], [address], [place] tel:[phone] [facility] No Information Saeid Valles. [address], [place], [place], [address], [place]. tel:[phone] Referring Provider: Reena Breaux, [facility] [address], [place], [address]. tel:[phone] [facility], [address] [place] [address] [address], [place], [place], [address], [place] tel:[phone] [facility] No Information Saeid Valles. [address], [place], [place], [address], [place]. tel:[phone] Referring Provider: Reena Breaux, [facility] [address], [place], [address]. tel:[phone], [address] [place] [address] [address], [place], [address], [place] tel:[phone] [facility] No Information Saeid Valles. [address], [place], [address], [place]. tel:[phone] Referring Provider: Reena Breaux, [facility] [address], [place], [address]. tel:[phone] [facility], [address] [place] [address] [address], [place], [place], [address], [place] tel:[phone] [facility] IP No Information Robert Mcmahon. [address] [facility] [address], [place], [place], [address], [place]. tel:[phone] Referring Provider: Lisandro Lieberman, [address] [facility] [address], [place], [address]. tel:[phone] [facility], [address] [place] [address] [address], [place], [address], [place] tel:[phone] [facility] IP No Information Saeid Valles. [address] [facility] [address], [place], [place], [address], [place]. tel:[phone] Referring Provider: Reena Breaux, [address] [place] [address] [address], [place], [address]. tel:[phone] OFFICE/OUTPATI ENT VISIT, [facility] [employer] [facility], [address] [place] [address] [address], [place], [place], [address], [place] tel:[phone] [facility] No Information Robert Mcmahon. [address] [facility] [address], [place], [place], [address], [place]. tel:[phone] Referring Provider: Lisandro Lieberman, [address] [facility] [address], [place], [address]. tel:[phone] PSYCH DIAGNOSTIC EVALUATION [facility] [employer] [facility], [address] [place] [address] [address], [place], [place], [address], [place] tel:[phone] [facility] No Information Omari Beltran. [address] [facility] [address], [place], [address], [place]. tel:[phone] Referring Provider: Ruby Salcido, [address] [place] [address] [address], [place], [address]. tel:[phone] OFFICE/OUTPATI ENT VISIT, [facility], [address] [facility] [address], [place], [place], [address], [place] tel:[phone] [facility] No Information Robert Mcmahon. [address] [facility] [address], [place], [place], [address], [place]. tel:[phone] Referring Provider: Lisandro Lieberman, [address] [facility] [address], [place], [address]. tel:[phone] Family History Family Member Type Diagnosis Age At Onset No Information Payers Payer name Insurance type Covered alliance party ID Bernice harley(gilmar) Capo [id number] Social History Type Description Quantity Date Captured [...]
--- OUTSIDE RECORDS SUMMARY | 2025-04-10 15:00 | XMS_ITS | Encounter Summary ---
Author Organization [facility] Address [address] [place] [address] Care Team Providers Care Miter Grinder Operator Name Role Phone Unallocated, Noms Provider Primary Care Provi chrissy Amalia Bruce GREASE MONKEY Unavailable [phone] Encounter Details Date Type Department Care Team (Late st Contact Info) Description 04/10/2025 3:00 PM EDT Routine [facility] [address] [facility] [address] [facility] [place] [address] Roscoe Diaz DO [address] [facility] [address] Johnson, [facility] 34 weeks gestation of ([facility]); Third trimester ([facility]); H/O gastric sleeve; Insulin controlled gestational diabetes mellitus (GDM) during , antepartum ([facility]) Social History Tobacco Use Types Packs/Day Years [...] 81 mg, Daily Blood Glucose Monitoring Suppl ([employer] Glucometer) w/Device kit 1 kit, Does not [...] nursing note reviewed. Exam conducted with a alarm operator present. Vitals: Estimated body mass index is 37.22 kg/m?? as calculated from the following: Height as of 24: 5' 3 . Weight as of this encounter: 210 lb 1.9 oz. BP: 120/70 Patient's last menstrual period was 08/12/2024. ASSESSMENT & PLAN ICD-10-CM 1. 34 weeks gestation of ([facility]) Z3A.34 POCT urinalysis dipstick manually resulted 2. Third trimester ([facility]) Z34.93 POCT urinalysis dipstick manually resulted 3. H/O gastric sleeve Z90.3 4. Insulin controlled gestational diabetes mellitus (GDM) during , antepartum ([facility]) O24.414 Return OB: Patient presents today for [...] Care Team (Late st Contact Info) Description 05/01/2025 9:20 AM EDT Routine [facility] [address] [facility] [address] [place] [phone] Rosy Barton PA [address] [facility] [address] [place], [place] [phone] documented as of this encounter Goals Goal Patient Goal Type Associated Problems Recent Progress Patient-Stated? Author Reminders Care Plan OB Reminders No Open Scheduling, Background documented as of this encounter Procedures Procedure Name Priority Date/Time Associated Diagnosis Comments POCT URINALYSIS DIPSTICK Routine 04/10/2025 3:21 PM EDT 34 weeks gestation of ([facility]) Third trimester ([facility]) documented in this encounter Results * (ABNORMAL) [...] Visit Diagnoses Diagnosis 34 weeks gestation of ([facility]) Third trimester ([facility]) state, incidental H/O gastric sleeve Insulin controlled gestational diabetes mellitus (GDM) during , antepartum ([facility]) documented in this encounter Additional Health Concerns Active Problems Noted Date Diagnosed Date OB Reminders 10/19/2024 documented as of this encounter Care Teams Miter Grinder Operator Relationship Specialty Start Date End Date Unallocated, Noms Provider, [address] [place] [address] PCP - General Family Medicine 10/17/23 Amalia Bruce NP [address] [place] [address] PCP - Capo Wild 09/22/24 documented as of this encounter
--- OUTSIDE RECORDS SUMMARY | 2025-04-24 11:30 | XMS_ITS | Encounter Summary ---
Author Organization [facility] Address [address] [place] [address] Care Team Providers Care Gun Fitter Name Role Phone Unallocated, Noms Provider Primary Care Provi chrissy Amalia Bruce AIRPLANE PATROL PILOT Unavailable [phone] Reason for Visit * Reason Comments Routine Visit Encounter Details Date Type Department Care Team (Late st Contact Info) Description 04/24/2025 11:30 AM EDT Routine [facility]IARA Johnson OBGYN [address] [place] [address] Roscoe Diaz DO [address] Racheal Johnson, [facility]11 Third trimester ([facility]); 36 weeks gestation of ([facility]) Social History Tobacco Use Types Packs/Day [...] nursing note reviewed. Exam conducted with a electrical calibrator present. Vitals: Estimated body mass index is 37.22 kg/m?? as calculated from the following: Height as of 07/25/24: 5' 3 . Weight as of this encounter: 210 lb 1.9 oz. BP: 116/74 Patient's last menstrual period was 08/12/2024. ASSESSMENT & PLAN ICD-10-CM 1. Third trimester ([facility]) Z34.93 POCT urinalysis dipstick manually resulted CULTURE, GROUP B STREP WITH SUSCEPTIBLITY CULTURE, GROUP B STREP WITH SUSCEPTIBLITY 2. 36 weeks gestation of ([facility]) Z3A.36 POCT urinalysis dipstick manually resulted Patient [...] AM EDT Routine [facility] [address] [place] [address] Rosy Barton PA [address] [place] [address] Scheduled Orders Name Type Priority Associated Diagnoses Orde r Schedule CULTURE, GROUP B STREP WITH SUSCEPTIBLITY Lab Routine Third trimester ([facility]) Expected: 04/24/2025, Expires: 04/24/2026 documented as of this encounter Goals Goal Patient Goal Type Associated Problems Recent Progress Patient-Stated? Author Reminders Care Plan OB Reminders No Open Scheduling, Background documented as of this encounter Procedures Procedure Name Priority Date/Time Associated Diagnosis Comments POCT URINALYSIS DIPSTICK Routine 04/24/2025 11:56 AM EDT Third trimester ([facility]) 36 weeks gestation of ([facility]) documented in this encounter Results * POCT [...] Diagnosis Third trimester ([facility]) state, incidental 36 weeks gestation of ([facility]) documented in this encounter Additional Health Concerns Active Problems Noted Date Diagnosed Date OB Reminders 10/19/2024 documented as of this encounter Care Teams Gun Fitter Relationship Specialty Start Date End Date Unallocated, Noms Provider, [address] [place] [address] PCP - General Family Medicine 10/17/23 Amalia Bruce, TONIA [address] [place] [address] PCP - [facility] Wild 09/22/24 documented as of this encounter
--- OUTSIDE RECORDS SUMMARY | 2025-04-24 14:47 | XMS_ITS | Encounter Summary ---
Author Organization [facility] Address [address] [place] [address] Care Team Providers Care Mud Logger Name Role Phone Unallocated, Noms Provider Primary Care Provi chrissy Amalia Bruce OCCUPATIONAL THERAPIST AIDE Unavailable [phone] Encounter Details Date Type Department Care Team (Late st Contact Info) Description 04/10/2025 Bamboo flowsheet CHIARA CAAL [address] [facility] [place] [address] Roscoe Diaz DO [address] [facility] [facility] [address] Rache[address] Johnson, [facility]11 Social History Tobacco Use Types Packs/Day [...] Info) Description 05/01/2025 9:20 AM EDT Routine [facility]IARA SILVAGYN [address] [facility] [place] [phone] Rosy Barton PA [address] [place] [address] documented as of this encounter Goals Goal Patient Goal Type Associated Problems Recent Progress Patient-Stated? Author Reminders Care Plan OB Reminders No Open Scheduling, Background documented as of this encounter Visit Diagnoses Not on filedocumented in this encounter Additional Health Concerns Active Problems Noted Date Diagnosed Date OB Reminders 10/19/2024 documented as of this encounter Care Teams Mud Logger Relationship Specialty Start Date End Date Unallocated, Noms Provider, [address] [place], [place] [id number] PCP - General Family Medicine 10/17/23 Amalia Bruce, TONIA [address] [place] [address] PCP - Capo Wild 09/22/24 documented as of this encounter
--- OUTSIDE RECORDS SUMMARY | 2025-04-24 14:47 | XMS_ITS | Encounter Summary ---
Author Organization [facility] tem Address [facility]-[id number] [address] [place] [address] Care Team Providers Care Bricklayer Name Role Phone Unavailable Primary Care Provider Unavailabl e Encounter Details Date Type Department Care Team (Late st Contact Info) Description 04/23/2025 Telephone Maternal- Medicine at [facility] [address] [place] [address] Devika Pope, JOEL [address] [place] [address] Social History Tobacco Use Types Packs/Day Years [...] 9:30 AM EDT Telemedicine Maternal- Medicine at [facility] [address] [place] [address] Marilia Dillon, SCHOOL COUNSELLOR-VITICULTURE TEACHER [address] [place] [address] documented as of this encounter Visit Diagnoses Not on filedocumented in this encounter
--- OUTSIDE RECORDS SUMMARY | 2025-04-24 14:47 | XMS_ITS | Encounter Summary ---
Author Organization [facility] Address [address] [place] [address] Care Team Providers Care Elastic Attacher Zigzag Name Role Phone Unallocated, Noms Provider Primary Care Provi chrissy Amalia Bruce INPATIENT NURSING AIDE Unavailable [phone] Encounter Details Date Type Department Care Team [...] 05/01/2025 9:20 AM EDT Routine [facility] [address] [facility] [place] [phone] Rosy Barton PA [address] [facility] [address] [place], [place] [id number] documented as of this encounter Goals Goal Patient Goal Type Associated Problems Recent Progress Patient-Stated? Author Reminders Care Plan OB Reminders No Open Scheduling, Background documented as of this encounter Visit Diagnoses Not on filedocumented in this encounter Additional Health Concerns Active Problems Noted Date Diagnosed Date OB Reminders 10/19/2024 documented as of this encounter Care Teams Elastic Attacher Zigzag Relationship Specialty Start Date End Date Unallocated, Noms Provider, [address] [place] [address] PCP - General Family Medicine 10/17/23 Amalia Bruce, TONIA [address] [place] [address] PCP - Capo Wild 09/22/24 documented as of this encounter
--- OUTSIDE RECORDS SUMMARY | 2025-04-24 14:47 | XMS_ITS | Encounter Summary ---
Author Organization [facility] Address [address] [place] [address] Care Team Providers Care Personal Computer Network Analyst Name Role Phone Unallocated, Noms Provider Primary Care Provi chrissy Amalia Bruce HEAD BATCHER Unavailable [phone] Encounter Details Date Type Department Care Team (Late Contact Info) Description 10/29/2024 Abstract [facility]ARA CAAL [address] [facility] [place] [address] Roscoe Diaz DO [address] [facility] [place] [address] Social History Tobacco Use Types Packs/Day Years [...] Care Team (Late Contact Info) Description 05/01/2025 9:20 AM EDT Routine [facility]IARA CAAL [address] [facility] [place] [address] Rosy Barton PA [address] [facility] [place] [address] documented as of this encounter Goals Goal Patient Goal Type Associated Problems Recent Progress Patient-Stated? Author Reminders Care Plan OB Reminders No Open Scheduling, Background documented as of this encounter Visit Diagnoses Not on filedocumented in this encounter Additional Health Concerns Active Problems Noted Date Diagnosed Date OB Reminders 10/19/2024 documented as of this encounter Care Teams Personal Computer Network Analyst Relationship Specialty Start Date End Date Unallocated, Noms Herlinda, [address] [place] [address] PCP - General Family Medicine 10/17/23 Amalia Bruce NP [address] [place] [address] PCP - Capo Wild 09/22/24 documented as of this encounter
--- OUTSIDE RECORDS SUMMARY | 2025-04-24 14:47 | XMS_ITS | Encounter Summary ---
Author Organization [facility] Address [address] [place] [address] Care Team Providers Care Carpet Jack Name Role Phone Unallocated, Noms Provider Primary Care Provi chrissy Amalia Bruce KITCHEN LEAD Unavailable [phone] Reason for Visit * Reason Onset Date Comments Med Refill 10/23/2024 Encounter Details Date Type Department Care Team (Late Contact Info) Description 10/23/2024 Refill [facility] [address] [facility] [address] [place] [address] Unallocated, Noms Provider, [address] [place] [address] Social History Tobacco Use Types Packs/Day Years [...] AM EDT Routine [facility] [address] [facility] [place] [address] Rosy Barton PA [address] [facility] [place] [place] [address] documented as of this encounter Goals Goal Patient Goal Type Associated Problems Recent Progress Patient-Stated? Author Reminders Care Plan OB Reminders No Open Scheduling, Background documented as of this encounter Visit Diagnoses Not on filedocumented in this encounter Additional Health Concerns Active Problems Noted Date Diagnosed Date OB Reminders 10/19/2024 documented as of this encounter Care Teams Carpet Jack Relationship Specialty Start Date End Date Unallocated, Noms Provider, [address] [place] [address] PCP - General Family Medicine 10/17/23 Amalia Bruce, TONIA [address] [place] [address] PCP - Capo Wild 09/22/24 documented as of this encounter
--- OUTSIDE RECORDS SUMMARY | 2025-04-24 14:47 | XMS_ITS | Encounter Summary ---
Author Organization [facility] [employer] [facility] tem Address [facility]-[id number] [address] [place] [address] Care Team Providers Care Secure Software Assessor Name Role Phone Unavailable Primary Care Provider Unavailabl e Encounter Details Date Type Department Care Team (Late st Contact Info) Description 02/07/2025 Orders Only Maternal- Medicine at [facility] [address] [place] [address] Ref Prov, [place] [address] Social History Tobacco Use Types Packs/Day Years [...] 9:30 AM EDT Telemedicine Maternal- Medicine at [facility] [address] [place] [address] Marilia Dillon, FROTHING MACHINE OPERATOR-DIESEL TECHNOLOGY INSTRUCTOR [address] [place] [address] documented as of this encounter Procedures Procedure [...]
--- OUTSIDE RECORDS SUMMARY | 2025-04-24 14:47 | XMS_ITS | Encounter Summary ---
Author Organization [facility] Address [facility] [place] [address] Care Team Providers Care Hat Copyist Name Role Phone Dasha Lujan MD Primary Care Provider Sonia Dickerson ENGRAVER FLATWARE.GROCERY CADDY Unavailable Fatimah Geiger ENGRAVER FLATWARE.GROCERY CADDY Unavailable [phone] Ruth Richardson ENGRAVER FLATWARE.GROCERY CADDY Unavailable Berenice Rivas ENGRAVER FLATWARE.GROCERY CADDY Unavailable Zarina Pope-C Unavailable Source Comments In the event this information is protected by the Federal Confidentiality of Alcohol and Drug AbusePatient Records regulations: The Federal rules restrict any use of the information to criminally investigate or prosecute any alcohol or drug abuse patient.[facility] Encounter Details Date Type Department Care Team (Late st Contact Info) Description 06/21/2023 Patient Msg Internal Medicine [address] [place] [address] Provider, Ccf APPOINTMENT CANCELED Social History Tobacco [...] How often do you attend chur or rastafarian services? Never 01/12/2022 Do you belong to any clubs o r organizations such as gnosticist groups, unions, fraternal [...] Answer Date Recorded PHQ-2 score 0 01/12/2022 [facility] - Occupational [...] slept in a chcf (including now)? No 06/29/2022 Area Deprivation Index Answer Date Vern rded National Score (1-100), lower number is lower ri sk 70 09/03/2022 State Score (1-10), lower number is lower risk N ot on file 09/03/2022 Data from: https://www.neighborhoodatlas.medicine.[facility].edu/. Last address used for calculation Tari [...] on filedocumented in this encounter Care Teams Hat Copyist Relationship Specialty [place] [address] [place], [place] [phone] PCP - General Internal Medicine 01/11/22 Sonia Dickerson APRN.CNP [address] [place] [address] Agricultural Equipment Sales Engineer Internal Medicine 07/30/24 08/29/24 Fatimah Geiger, ENGRAVER FLATWARE.GROCERY CADDY [address] [place] [address] [facility] Internal Medicine 07/30/24 Ruth Richardson APRN.GROCERY CADDY [address] [place] [address] [facility] Internal Medicine 07/30/24 08/29/24 Berenice Rivas, ENGRAVER FLATWARE.GROCERY CADDY [address] [place] [address] [facility] Internal Medicine 07/30/24 08/29/24 Zarina Ppoe PA-C [address] [place] [address] [facility] Internal Medicine 07/30/24 08/29/24 documented as of this encounter
--- OUTSIDE RECORDS SUMMARY | 2025-04-24 14:48 | XMS_ITS | Encounter Summary ---
Author Organization [facility] Address [address] [place] [address] Care Team Providers Care Appian Bpm Developer Name Role Phone Unallocated, Noms Provider Primary Care Provi chrissy Amalia Bruce BRIDGE/STRUCTURE INSPECTION TEAM LEADER Unavailable [phone] Encounter Details Date Type Department Care Team (Late Contact Info) Description 02/06/2025 Abstract [facility] [address] [facility] [place] [address] Roscoe Diaz DO [address] [facility] [place] [address] Social History Tobacco Use Types Packs/Day Years [...] 9:20 AM EDT Routine [facility]IARA CAAL [address] [facility] [place] [address] Rosy Barton PA [address] [place] [address] documented as of this encounter Goals Goal Patient Goal Type Associated Problems Recent Progress Patient-Stated? Author Reminders Care Plan OB Reminders No Open Scheduling, Background documented as of this encounter Visit Diagnoses Not on filedocumented in this encounter Additional Health Concerns Active Problems Noted Date Diagnosed Date OB Reminders 10/19/2024 documented as of this encounter Care Teams Appian Bpm Developer Relationship Specialty Start Date End Date Unallocated, Noms Herlinda, [address] [place] [address] PCP - General Family Medicine 10/17/23 Amalia Bruce NP [address] [place] [address] PCP - Capo Wild 09/22/24 documented as of this encounter
--- OUTSIDE RECORDS SUMMARY | 2025-04-24 14:48 | XMS_ITS | Clinical Summary ---
Author Organization [facility] tem Address [facility]-[id number] [address] [place] [address] Care Team Providers Care Screen Printing Machine Loader Unloader Name Role Phone Unavailable Primary Care Provider Unavailabl e Allergies No known active allergies Medications 25-IRON VNW-RWQKA-CBS ORAL Take 1 tablet by mouth in [...] Team Description 04/23/2025 Telephone Maternal- Medicine at [facility] [address] [place] [address] Devika Pope LD 04/15/2025 Telephone Maternal- Medicine at [facility] [address] [place] [address] Beulah Miller, KARISSA 04/09/2025 Telephone Maternal- Medicine at [facility] [address] [place] [address] Devika Pope, JOEL 04/01/2025 10:00 AM EDT Telemedicine Maternal- Medicine at [facility] [address] [place] [address] Daisha Morel PA-C Gestational diabetes requiring insulin (Primary Dx) 04/01/2025 Telephone Maternal- Medicine at [facility] [address] [place] [address] Blanquita Toney, KARISSA 04/01/2025 Travel 04/01/2025 Telephone Maternal- Medicine at [facility] [address] [place] [address] Blanquita Toney, KARISSA 03/26/2025 Telephone Maternal- Medicine at [facility] [address] [place] [address] Devika Pope, JOEL 03/19/2025 Telephone Maternal- Medicine at [facility] [address] [place] [address] Fatimah Ball LD 03/12/2025 1:30 PM EDT Office Visit Maternal- Medicine at [facility] [address] [place] [address] Daisha Morel, PA-C Gestational diabetes mellitus (GDM) in second trimester, gestational diabetes method of control unspecified (Primary Dx); Gestational diabetes requiring insulin 03/12/2025 Travel 03/05/2025 Telephone Maternal- Medicine at [facility] [address] [place] [address] Devika Pope LD 02/26/2025 Telephone Maternal- Medicine at [place] [address] [place] [address] Devika Pope LD 02/14/2025 1:30 PM EDT Support Visit Maternal- Medicine at [address] [phone] Hien Giles RN Karl, Deborah, LD Gestational diabetes mellitus (GDM) in second trimester, gestational diabetes method of control unspecified (Primary Dx) 02/13/2025 Travel 02/07/2025 Orders Only Maternal- Medicine at [address] [phone] Ref Prov, Not In System 02/07/2025 Abstract Maternal- Medicine at [address] [phone] External, Scanning Provider from Last 3 Months [...] 9:30 AM EDT Telemedicine Maternal- Medicine at [facility] [address] [place] [address] Marilia Dillon, TRAIN ATTENDANT-PELOTA MAKER [address] [place] [address] Health Maintenance Due Date Last Done Comments [...] ORDERABLES Final Re sult Performing Organization Address [facility] Co de Phone Number [...] ORDERABLES Madelaine l Result Performing Organization Address [facility] Co de Phone Number MANUALLY TRANSCRIBED RESULTS * Glucose 1h post 50g load (02/01/2025) Glucose, 1 hr PP 50GM dose 198 MANUALLY TRANSCRIBED RESULTS Blood Venous blood / Unknown us Not In System Ref Prov LAB BLOOD ORDERABLES Madelaine l Result Performing Organization Address [facility] Co de Phone Number MANUALLY TRANSCRIBED RESULTS * Hemoglobin and hematocrit, blood (02/01/2025) Hemoglobin 11.5 MANUALLY TRANSCRIBED RESULTS Hematocrit 33.9 MANUALLY TRANSCRIBED RESULTS Blood Venous blood / Unknown us Not In System Ref Prov LAB BLOOD ORDERABLES Madelaine l Result Performing Organization Address City/[facility] Co de Phone Number MANUALLY TRANSCRIBED RESULTS from Last 3 Months Insurance [facility]
--- OUTSIDE RECORDS SUMMARY | 2025-04-24 14:48 | XMS_ITS | Encounter Summary ---
Author Organization [facility] Address [address] [place] [address] Care Team Providers Care Manager Learning Name Role Phone Unallocated, Noms Provider Primary Care Provi chrissy Amalia Bruce STRUCTURAL RIGGER Unavailable [phone] Encounter Details Date Type Department Care Team (Late st Contact Info) Description 04/23/2025 Clinisync Result Encounter [facility] External Department Unsolicited Rosy Quiroz PA [address] [place] [address] Social History Tobacco Use Types Packs/Day Years [...] AM EDT Routine [facility] [address] [place] [address] Rosy Quiroz PA [address] [place] [address] [place] [address] documented as of this encounter Goals Goal Patient Goal Type Associated Problems Recent Progress Patient-Stated? Author Reminders Care Plan OB Reminders No Open Scheduling, Background documented as of this encounter Procedures Procedure Name Priority Date/Time Associated Diagnosis Comments US OB BPP W NON-STRESS 04/23/2025 4:35 PM EDT documented in this encounter Results * US OB BPP W NON-STRESS (04/23/2025 4:35 PM EDT) Anatomical Region Laterality Modality Other 04/23/2025 4:35 PM EDT Narrative 04/23/2025 4:37 PM EDT The [address] [address] Ultrasound Report Signed Patient: TRUDI ZAMARRIPA MR#: [id number] : 1990 Acct:[id number] Age/Sex: 34 / F ADM Date: 04/23/25 Loc: [facility] 250-[address]: Rosy Quiroz Ordering Physician: Rosy Quiroz Date of Service: 04/23/25 Procedure(s): US OB BPP w non-stress Accession Number(s): [id number] cc: Rosy Quiroz; Physician,Non-Staff M.D. The [address] [address] Patient Name: TRUDI ZAMARRIPA MRN: [id number] date: 1990 Sex: F Assigned Patient Location: US Current Patient Location: US Accession/Order Number: [id number] Exam Date: 04/23/2025 16:03 Report Date: 04/23/2025 16:35 At the request of: ROSY QUIROZ Procedure: US OB BPP w non-stress Biophysical profile. Reason for exam: History of gastric sleeve surgery COMPARISON: 04/15/2025 TECHNIQUE: Transabdominal imaging of the gravid uterus was obtained. FINDINGS: The breakfast cook reports a BPP of 8 out of 8. HELLEN is normal at 11.5 cm. heart rate 135 bpm. US/US OB BPP w non-stress IMPRESSION: BPP 8 out of 8. Impression dictated by: Cy Jensen Jr., D.O. 04/23/2025 4:35 PM Dictation Location: [place] [address] Electronically authenticated by: [id number] Y Date: 04/23/2025 16:35 Dictated By: Cy Jensen M.D. Signed By: 04/23/25 1637 DD/ 34 TD/TT: Ribbon Inker: Procedure Note Radiology, Radiologist, MD - 04/23/2025 [place] [address] Ultrasound Report Signed Patient: TRUDI ZAMARRIPA R#: [id number] : 1990Acct:[id number] Age/Sex: 34 / FADM Date: 04/23/25 Loc: [address]: Rosy Quiroz Ordering Physician: Rosy Quiroz Date of Service: 04/23/25 Procedure(s): US OB BPP w non-stress Accession Number(s): [id number] cc: Rosy Quiroz; Physician,Non-Staff Shimon The [place] [address] Patient Name: TRUDI ZAMARRIPA MRN: [id number] date: 1990 Sex: F Assigned Patient Location: Current Patient Location: US Accession/Order Number: [id number] Exam Date: 04/23/2025 16:03 Report Date: 04/23/2025 16:35 At the request of: ROSY QUIROZ Procedure: US OB BPP w non-stress Biophysical profile. Reason for exam: History of gastric sleeve surgery COMPARISON: 04/15/2025 TECHNIQUE: Transabdominal imaging of the gravid uterus was obtained. FINDINGS: The breakfast cook reports a BPP of 8 out of 8. HELLEN is normal at11.5 cm. heart rate 135 bpm. US/US OB BPP w non-stress IMPRESSION: BPP 8 out of 8. Impression dictated by: Cy Jensen Jr., D.O. 04/23/2025 4:35 PM Dictation Location: [place] [address] Electronically authenticated by: [id number] Y Date: 6:35 Dictated By: Cy Jensen M.D. Signed By:04/23/25 1637 DD/ 34 TD/TT: Ribbon Inker: Rosy [facility] Final Result documented in this encounter Visit Diagnoses Not on filedocumented in this encounter Additional Health Concerns Active Problems Noted Date Diagnosed Date OB Reminders 10/19/2024 documented as of this encounter Care Teams Manager Learning Relationship Specialty Start Date End Date Unallocated, Noms Provider, [address] [place] [address] PCP - General Family Medicine 10/17/23 Amalia Bruce, TONIA [address] [place] [address] PCP - Capo Wild 09/22/24 documented as of this encounter
--- OUTSIDE RECORDS SUMMARY | 2025-04-24 14:48 | XMS_ITS | Encounter Summary ---
Author Organization [facility] Address [address] [place] [address] Care Team Providers Care Blaster Helper Name Role Phone Unallocated, Noms Provider Primary Care Provi chrissy Amalia Bruce TRAINMAN Unavailable [phone] Encounter Details Date Type Department Care Team (Late st Contact Info) Description 12/26/2024 Orders Only CHIARA CAAL [address] [place] [address] Iman Saldana LPN [address] [place] [phone] Social History Tobacco Use Types Packs/Day Years [...] Info) Description 05/01/2025 9:20 AM EDT Routine [facility] CAAL [address] [facility] [place] [address] Rosy Barton PA [address] [facility] [place] [address] documented as of this encounter Goals Goal [...] documented as of this encounter Care Teams Blaster Helper Relationship Specialty Start Date End Date Unallocated, Noms Provider, [address] [place] [address] PCP - General Family Medicine 10/17/23 Amalia Bruce, TONIA [address] [place] [address] PCP - Capo Wild 09/22/24 documented as of this encounter
--- OUTSIDE RECORDS SUMMARY | 2025-04-24 14:48 | XMS_ITS | Encounter Summary ---
Author Organization [facility] Address [address] [place] [address] Care Team Providers Care Finance Associate Name Role Phone Unallocated, Noms Provider Primary Care Provi chrissy Amalia Bruce ELIGIBILITY ANALYST Unavailable [phone] Encounter Details Date Type Department Care Team (Late Contact Info) Description 01/09/2025 Abstract [facility] [address] [place] [place] [address] Roscoe Diaz DO [address] [facility] [place] [address] Social History Tobacco Use Types Packs/Day Years [...] 9:20 AM EDT Routine [facility]ARA CAAL [address] [facility] [place] [address] Rosy Barton PA [address] [facility] [place] [address] documented as of this encounter Goals Goal Patient Goal Type Associated Problems Recent Progress Patient-Stated? Author Reminders Care Plan OB Reminders No Open Scheduling, Background documented as of this encounter Visit Diagnoses Not on filedocumented in this encounter Additional Health Concerns Active Problems Noted Date Diagnosed Date OB Reminders 10/19/2024 documented as of this encounter Care Teams Finance Associate Relationship Specialty Start Date End Date Unallocated, Noms Herlinda, [address] [place] [address] PCP - General Family Medicine 10/17/23 Amalia Bruce NP [address] [place] [address] PCP - Capo Wild 09/22/24 documented as of this encounter
--- OUTSIDE RECORDS SUMMARY | 2025-04-24 14:48 | XMS_ITS | Clinical Summary ---
Author Organization [facility] Address [address] [place] [address] Care Team Providers Care Professor Of Surgery Name Role Phone Dasha Lujan MD Primary Care Provider [phone] Fatimah Geiger APRN.FLOWER PICKER Unavailable Allergies No known active allergies Medications Omeprazole Magnesium (ACID FOUNTAIN HELPER, OMEPRAZOLE,) 20 mg cpDR 04/16/2022 Active Active [...] 0.6 oz p ure alcohol) occ. drink [employer] Utilities Answer Date Recorded In the past 12 months has [employer], gas, oil, or water [employer] threatened to shut off services in your [...] often do you attend chur ch or methodist services? Never 07/19/2023 Do you belong to [...] Answer Date Recorded PHQ-2 score 0 06/29/2024 [facility] [place] [facility] - Occupational Stress [...] is lower risk 8 07/19/2023 Data from: https://www.neighborhoodatlas.medicine.[facility].edu/. Last address used for calculation [address] [...] Hepatitis C Screening Discontinued Insurance Care Teams Professor Of Surgery Relationship Specialty [place] [address] [place], [place] [phone] PCP - General Internal Medicine 01/11/22 Fatimah Geiger APRN.FLOWER PICKER [address] [place], [place] [id number] Layout Artist Internal Medicine 07/30/24
--- OUTSIDE RECORDS SUMMARY | 2025-04-24 14:48 | XMS_ITS | Clinical Summary ---
Author Organization [facility] Address [address] [place] [address] Care Team Providers Care Pipelaying Fitter Name Role Phone Unallocated, Noms Provider Primary Care Provi chrissy Amalia Bruce COMPUTER AIDED DESIGN DESIGNER Unavailable [phone] Allergies No known active allergies Medications omeprazole OTC (PriLOSEC OTC) 20 MG EC tablet Take 20 mg by mouth in the morning. Take before meals. Do not crush, chew, or split.. Active Vit-Fe Fumarate-FA ( 19) 29-1 MG chewable tabletIndication s:, unspecified gestational age ([facility]) Chew 1 each Daily 30 tablet 11 5 Active Alcohol Swabs (Alcohol Prep Pad) 70 % padsIndications: Gestational diabetes mellitus (GDM), antepartum, gestational diabetes method of control unspecified ([facility]),Elevat ed glucose tolerance test Apply 1 Pad topically Daily Use four times daily to check FSBS. 150 each 3 5 Active Blood Glucose Monitoring Suppl (D-Care Glucometer) w/Device kitIndications:G estational diabetes mellitus (GDM), antepartum, gestational diabetes method of control unspecified ([facility]),Elevat ed glucose tolerance test 1 kit Daily [...] Encounters Date Type Department Care Team Description 04/24/2025 11:30 [place] [address] Roscoe Diaz, Third trimester ([facility]); 36 weeks gestation of ([facility]) 04/24/2025 [place] [address] Roscoe Diaz, 04/23/2025 Clinisync Result Encounter NOMS External Department Unsolicited Rosy Quiroz PA 04/17/2025 Travel 04/15/2025 Clinisync Result Encounter NOMS External Department Unsolicited Rosy Quiroz PA 04/10/2025 3:00 [place] [address] Roscoe Diaz DO 34 weeks gestation of ([facility]); Third trimester ([facility]); H/O gastric sleeve; Insulin controlled gestational diabetes mellitus (GDM) during , antepartum ([facility]) 04/10/2025 [place] [address] Roscoe Diaz, 04/08/2025 10:00 AM EDT [place] [address] H/O gastric sleeve 04/08/2025 Clinisync Result Encounter NOMS External Department Unsolicited Rosy Quiroz PA 04/06/2025 Travel 04/05/2025 [place] [address] Monika Mesa LPN 04/01/2025 Clinisync Result Encounter NOMS External Department Unsolicited Rosy Quiroz PA 03/28/2025 Telephone [facility] [address] [place] [address] Jes Garza MA 03/27/2025 2:00 PM EDT Routine [facility]YN [facility] [address] Roscoe Diaz DO Third trimester ([facility]); H/O gastric sleeve; Gestational diabetes mellitus (GDM), antepartum, gestational diabetes method of control unspecified ([facility]); 32 weeks gestation of ([facility]) 03/27/2025 [place] [address] Roscoe Diaz DO 03/27/2025 Travel 03/13/2025 3:50 PM EDT Routine [facility] [place] [address] Rosy Quiroz PA 30 weeks gestation of ([facility]); Third trimester ([facility]); H/O gastric sleeve; Gestational diabetes mellitus (GDM), antepartum, gestational diabetes method of control unspecified ([facility]) 03/13/2025 Bamboo flowsheet [facility] [place] [address] [place] [address] Rosy Quiroz PA 03/10/2025 Travel 02/27/2025 1:40 PM EDT Routine [facility] [place] [address] [place] [address] Roscoe Diaz DO 28 weeks gestation of ([facility]); Third trimester ([facility]); H/O gastric sleeve; Gestational diabetes mellitus (GDM), antepartum, gestational diabetes method of control unspecified ([facility]) 02/27/2025 1:00 PM EDT [place] [address] H/O gastric sleeve 02/26/2025 Travel 02/11/2025 11:30 [place] [address] Rosy Quiroz PA Second trimester ([facility]); 26 weeks gestation of ([facility]); H/O gastric sleeve 02/11/2025 Travel 02/06/2025 [place] [address] Roscoe Diaz, DO 02/04/2025 [place] [address] Monika Mesa LPN 02/04/2025 Results [place] [phone] Monika Mesa, CO OP ALL CBC WITH AUTO DIFF, GLUCOSE 1 HOUR 02/01/2025 [place] [address] Ana Costello MA 02/01/2025 Clinisync Result Encounter NOMS External Department Unsolicited Roscoe Diaz, DO 01/30/2025 1:00 PM EDT [place] [phone] Encounter for follow-up ultrasound of anatomy ([facility]) 01/27/2025 Travel from Last 3 Months [...] Pressure 116/74 04/24/2025 11:50 AM EDT Pulse 88 08/02/2024 3:58 PM EST Temperature 36 C (96.8 F) 08/02/2024 3:58 PM EST Respiratory Rate 12 07/25/2024 2:19 PM EST Oxygen Saturation 98% 08/02/2024 3:58 PM EST Inhaled Oxygen Concentration - - Weight 95.3 kg (210 lb 1.9 oz) 04/24/2025 11:50 AM EDT Height 160 cm (5' 3 ) 07/25/2024 2:19 PM EST Body Mass Index 37.22 07/25/2024 2:19 PM EST Plan of Treatment Upcoming Encounters Date Type Department Care Team (Late st Contact Info) Description 05/01/2025 9:20 AM EDT Routine [facility] [place] [facility] [address] [place] [address] Rosy Quiroz PA [address] [place] [address] Health Maintenance Due Date Last Done Comments HPV/Cotest 2022 Influenza Vaccine (#1) 2025 Cervical Cancer Screening 12/11/2027 Pap Smear 12/11/2027 12/10/2024 Goals Goal Patient Goal Type Associated Problems Recent Progress Patient-Stated? Author Reminders Care Plan OB Reminders No Open Scheduling, Background Procedures Procedure Name Priority Date/Time Associated Diagnosis Comments POCT URINALYSIS DIPSTICK Routine 04/24/2025 11:56 AM EDT Third trimester ([facility]) 36 weeks gestation of ([facility]) US OB BPP W NON-STRESS 04/23/2025 4:35 PM EDT US OB BPP W NON-STRESS 04/15/2025 4:16 PM EDT POCT URINALYSIS DIPSTICK Routine 04/10/2025 3:21 PM EDT 34 weeks gestation of ([facility]) Third trimester ([facility]) US OB BPP W NON-STRESS 04/08/2025 8:37 PM EDT US OB FOLLOW UP TRANSABDOMINAL APPROACH Routine 04/08/2025 10:27 AM EDT H/O gastric sleeve US OB BPP W NON-STRESS 04/01/2025 3:29 PM EDT POCT URINALYSIS DIPSTICK Routine 03/27/2025 2:49 PM EDT Third trimester ([facility]) H/O gastric sleeve Gestational diabetes mellitus (GDM), antepartum, gestational diabetes method of control unspecified ([facility]) 32 weeks gestation of ([facility]) POCT URINALYSIS DIPSTICK Routine 03/13/2025 3:46 PM EDT 30 weeks gestation of ([facility]) Third trimester ([facility]) POCT URINALYSIS DIPSTICK Routine 02/27/2025 2:04 PM EDT 28 weeks gestation of ([facility]) Third trimester ([facility]) US OB FOLLOW UP TRANSABDOMINAL APPROACH Routine 02/27/2025 1:40 PM EDT H/O gastric sleeve POCT URINALYSIS DIPSTICK Routine 02/11/2025 11:50 AM EDT Second trimester ([facility]) GLUCOSE 1 HOUR Routine 02/01/2025 9:28 AM EDT ALL CBC WITH AUTO DIFF Routine 9:28 AM EDT US OB LIMITED 1+ FETUSES Routine 01/30/2025 1:20 PM EDT Encounter for follow-up ultrasound of anatomy ([facility]) PAP SMEAR Routine 12/10/2024 12:00 AM EDT from Last 3 Months or Most Recently Relevant to Health Maintenance Results * POCT urinalysis dipstick manually resulted (04/24/2025 11:56 AM EDT) Only the most recent of6 resultswithin [...] Result * US OB BPP W NON-STRESS (04/23/2025 4:35 PM EDT) Only the most recent of4 resultswithin the time period is included. Anatomical Region Laterality Modality Other 04/23/2025 4:35 PM EDT Narrative 04/23/2025 4:37 PM EDT The [address] [address] Ultrasound Report Signed Patient: TRUDI ZAMARRIPA MR#: [id number] : 1990 Acct:[id number] Age/Sex: 34 / F ADM Date: 04/23/25 Loc: [facility] 250-[address]: Rosy Quiroz Ordering Physician: Rosy Quiroz Date of Service: 04/23/25 Procedure(s): US OB BPP w non-stress Accession Number(s): [id number] cc: Rosy Quiroz; Physician,Non-Staff M.DCharisse The [place] [address] Patient Name: TRUDI ZAMARRIPA MRN: [facility]:[id number] date: 1990 Sex: F Assigned Patient Location: US Current Patient Location: US Accession/Order Number: [id number] Exam Date: 04/23/2025 16:03 Report Date: 04/23/2025 16:35 At the request of: ROSY QUIROZ Procedure: US OB BPP w non-stress Biophysical profile. Reason for exam: History of gastric sleeve surgery COMPARISON: 04/15/2025 TECHNIQUE: Transabdominal imaging of the gravid uterus was obtained. FINDINGS: The front end web designer reports a BPP of 8 out of 8. HELLEN is normal at 11.5 cm. heart rate 135 bpm. US/US OB BPP w non-stress IMPRESSION: BPP 8 out of 8. Impression dictated by: Cy Jensen Jr., D.O. 04/23/2025 4:35 PM Dictation Location: [place] [address] Electronically authenticated by: [id number] Y Date: 04/23/2025 16:35 Dictated By: Cy Jensen M.D. Signed By: 04/23/25 1637 DD/ 163 TD/TT: Sheet Sorter: Procedure Note Radiology, Radiologist, - 04/23/2025 [place] [address] Ultrasound Report Signed Patient: TRUDI ZAMARRIPA JMR#: [id number] : 1990Acct:[id number] Age/Sex: 34 / FADM Date: 04/23/25 Loc: [place] [address]: Rosy Quiroz Ordering Physician: Rosy Quiroz Date of Service: 04/23/25 Procedure(s): US OB BPP w non-stress Accession Number(s): [id number] cc: Rosy Quiroz; Physician,Non-Staff [place] [id number] Patient Name: TRUDI ZAMARRIPA MRN: [facility]:[id number] date: 1990 Sex: F Assigned Patient Location: US Current Patient Location: US Accession/Order Number: [id number] Exam Date: 04/23/2025 16:03 Report Date: 04/23/2025 16:35 At the request of: ROSY QUIROZ Procedure: US OB BPP w non-stress Biophysical profile. Reason for exam: History of gastric sleeve surgery COMPARISON: 04/15/2025 TECHNIQUE: Transabdominal imaging of the gravid uterus was obtained. FINDINGS: The front end web designer reports a BPP of 8 out of 8. HELLEN is normal at11.5 cm. heart rate 135 bpm. US/US OB BPP w non-stress IMPRESSION: BPP 8 out of 8. Impression dictated by: Cy Jensen Jr., D.O. 04/23/2025 4:35 PM Dictation Location: [place] [address] Electronically authenticated by: [id number] Y Date: 6:35 Dictated By: Cy Jensen M.D. Signed By:04/23/25 1637 DD/ 1635 TD/TT: Sheet Sorter: us Rosy [facility]UGER [facility] Final Result [...] II, MD, PHD at 09-Apr-2025 07:59:18 AM [facility] Procedure Note Brittany Sebastian MD - [...] signed by BRITTANY SEBASTIAN II, MD, PHD [id number] 07:59:18 AM [facility] us Roscoe Joe DO IMG OB US PROCEDURES Final Resul t * (ABNORMAL) GLUCOSE 1 HOUR (02/01/2025 9:28 AM EDT) GLUCOSE 1 HOUR 198(H) <130 mg/dL TBH 02/01/2025 9:28 AM EDT 02/01/2025 9:30 AM EDT Narrative [facility] - 02/01/2025 11:36 AM EDT us Roscoe Joe DO LAB BLOOD ORDERABLES Final Resul t [facility] TB * (ABNORMAL) ALL CBC WITH AUTO [...] us Roscoe Joe DO [facility] Final Result [facility] * US OB limited 1+ [...] II, MD, PHD at 01-Feb-2025 10:22:21 AM [facility] Procedure Note Brittany Sebastian MD - [...] signed by BRITTANY SEBASTIAN II, MD, PHD [id number] 10:22:21 AM [facility] us Roscoe Diaz DO IMG OB US PROCEDURES Final Resul t * Pap Smear (12/10/2024 12:00 AM EDT) Swab Cervical swab / Unknown Joe Nurse Noms Bcp Ob LAB CYTOLOGY ORDERABLES Final Result EXTERNAL LAB from Last 3 Months or Most Recently Relevant to Health Maintenance Additional Health Concerns Active Problems Noted Date Diagnosed Date OB Reminders 10/19/2024 Insurance Care Teams Pipelaying Fitter Relationship Specialty Start Date End Date Unallocated, Noms Provider[place] [address] PCP - General Family Medicine 10/17/23 Amalia Bruce NP [address] [place] [address] PCP - Capo [facility] 09/22/24
--- OUTSIDE RECORDS SUMMARY | 2025-04-24 14:48 | XMS_ITS | Encounter Summary ---
Author Organization [facility] Address [address] [place] [address] Care Team Providers Care Environmental Protection Inspector Name Role Phone Dasha Lujan MD Primary Care Provider Sonia Dickerson FAMILY RESOURCE MANAGEMENT SPECIALIST.REPAIRER VENEER SHEET Unavailable Fatimah Geiger FAMILY RESOURCE MANAGEMENT SPECIALIST.REPAIRER VENEER SHEET Unavailable Ruth Richardson FAMILY RESOURCE MANAGEMENT SPECIALIST.REPAIRER VENEER SHEET Unavailable Berenice Rivas APRN.REPAIRER VENEER SHEET Unavailable Zarina Pope PA-C Unavailable Source Comments In the event this information is protected by the Federal Confidentiality of Alcohol and Drug AbusePatient Records regulations: The Federal rules restrict any use of the information to criminally investigate or prosecute any alcohol or drug abuse patient.[facility] Encounter Details Date Type Department Care Team (Late st Contact Info) Description 06/18/2024 Patient Msg Internal Medicine [address] [place] [address] Berenice Rivas APRN.REPAIRER VENEER SHEET [address] [place] [address] Appointment Request Social History Tobacco Use Types Packs/Day Years Used Date Smoking Tobacco: Never Smokeless Tobacco: Never Alcohol Use Standard Drinks/Week Comments Yes 1.3 (1 standard drink = 0.6 oz p ure alcohol) occ. drink [facility] Utilities Answer Date Recorded In the past 12 months has th e electric, gas, oil, or water [employer] threatened to shut off services in your [...] any clubs o r organizations such as faith groups, unions, fraternal or athletic groups, or [...] Answer Date Recorded PHQ-2 score 0 07/22/2023 [facility] of Occupat ional Health - Occupational Stress [...] place to sleep or slept in a snf (including now)? No 07/19/2023 Area Deprivation Index Answer Date Vern rded National Score (1-100), lower number is lower ri sk 90 07/19/2023 State Score (1-10), lower number is lower risk 8 07/19/2023 Data from: https://www.neighborhoodatlas.medicine.[facility].edu/. Last address used for calculation [...] on filedocumented in this encounter Care Teams Environmental Protection Inspector Relationship Specialty [place] [address] [place] [address] PCP - General Internal Medicine 01/11/22 Sonia Dickerson, FAMILY RESOURCE MANAGEMENT SPECIALIST.REPAIRER VENEER SHEET [address] [place] [address] Security Ambassador Internal Medicine 07/30/24 08/29/24 Fatimah Geiger, FAMILY RESOURCE MANAGEMENT SPECIALIST.REPAIRER VENEER SHEET [address] [place] [address] Security Ambassador Internal Medicine 07/30/24 Ruth Richardson, FAMILY RESOURCE MANAGEMENT SPECIALIST.REPAIRER VENEER SHEET [address] [place] [address] [facility] Internal Medicine 07/30/24 08/29/24 Berenice Rivas, FAMILY RESOURCE MANAGEMENT SPECIALIST.REPAIRER VENEER SHEET [address] [place] [address] [facility] Internal Medicine 07/30/24 08/29/24 Zarina Pope PA-C [address] [place] [address] Security Ambassador Internal Medicine 07/30/24 08/29/24 documented as of this encounter
--- OUTSIDE RECORDS SUMMARY | 2025-04-24 14:48 | XMS_ITS | Encounter Summary ---
Author Organization [facility] tem Address [id number] [place] [address] Care Team Providers Care Biometrics Experimentalist Name Role Phone Unavailable Primary Care Provider Unavailabl e Encounter Details Date Type Department Care Team (Late Contact Info) Description 04/15/2025 Telephone Maternal- Medicine at [facility] [address] [facility] [place] [address] Beulah Miller, RN Social History Tobacco Use [...] 9:30 AM EDT Telemedicine Maternal- Medicine at [facility] [address] [place] [address] Marilia Dillon, CIAIO LUMITE INJECTOR-STARTER MECHANIC [address] [place] [address] documented as of this encounter Visit Diagnoses Not on filedocumented in this encounter
--- OUTSIDE RECORDS SUMMARY | 2025-04-24 14:48 | XMS_ITS | Encounter Summary ---
Author Organization [facility] Address [address] [place] [address] Care Team Providers Care Herb Digger Name Role Phone Unallocated, Noms Provider Primary Care Provi chrissy Amalia Bruce IRIDOLOGIST Unavailable [phone] Encounter Details Date Type Department Care Team (Late st Contact Info) Description 04/24/2025 Bamboo flowsheet [facility]ARA CAAL [address] [place] [address] Roscoe Diaz DO [address] Racheal Johnson, [id number] Social History Tobacco Use Types [...] 9:20 AM EDT Routine CHIARA SILVAGYN [address] [place] [address] Rosy Barton PA [address] [place] [address] documented as of this encounter Goals Goal Patient Goal Type Associated Problems Recent Progress Patient-Stated? Author Reminders Care Plan OB Reminders No Open Scheduling, Background documented as of this encounter Visit Diagnoses Not on filedocumented in this encounter Additional Health Concerns Active Problems Noted Date Diagnosed Date OB Reminders 10/19/2024 documented as of this encounter Care Teams Herb Digger Relationship Specialty Start Date End Date Unallocated, Noms Provider, [address] [place], [place] [phone] PCP - General Family Medicine 10/17/23 Amalia Bruce, TONIA [address] [place] [address] PCP - [facility]o [facility] 09/22/24 documented as of this encounter
--- OUTSIDE RECORDS SUMMARY | 2025-04-24 14:48 | XMS_ITS | Encounter Summary ---
Author Organization [facility] Address [address] [place] [address] Care Team Providers Care Rn Dermatology Name Role Phone Unallocated, Noms Provider Primary Care Provi chrissy Amalia Bruce CABINET FINISHER Unavailable [phone] Encounter Details Date Type Department Care Team (Late st Contact Info) Description 02/04/2025 Results Follow-Up CHIARA Johnson OBGYLee [address] [place] [address] Monika Mesa LPN [address] [employer] [place] [phone] ALL CBC WITH AUTO DIFF, GLUCOSE 1 [...] Description 05/01/2025 9:20 AM EDT Routine CHIARA Johnson OBGYN [address] [place] [address] Rosy Barton PA [address] [place] [address] documented as of this encounter Goals Goal Patient Goal Type Associated Problems Recent Progress Patient-Stated? Author Reminders Care Plan OB Reminders No Open Scheduling, Background documented as of this encounter Visit Diagnoses Not on filedocumented in this encounter Additional Health Concerns Active Problems Noted Date Diagnosed Date OB Reminders 10/19/2024 documented as of this encounter Care Teams Rn Dermatology Relationship Specialty Start Date End Date Unallocated, Nomgilmar Pate MD [address] [place] [address] PCP - General Family Medicine 10/17/23 Amalia Bruce, TONIA [address] [place] [address] PCP - [facility] 09/22/24 documented as of this encounter
--- OUTSIDE RECORDS SUMMARY | 2025-04-24 14:48 | XMS_ITS | Encounter Summary ---
Author Organization [facility] Address [address] [place] [address] Care Team Providers Care Certified Nursing Attendant Name Role Phone Dasha Lujan MD Primary Care Provider Sonia Dickerson COKE DRAWER.REPEAT CHIEF Unavailable [phone] Fatimah Geiger COKE DRAWER.REPEAT CHIEF Unavailable Ruth Richardson COKE DRAWER.REPEAT CHIEF Unavailable Berenice Rivas APRN.REPEAT CHIEF Unavailable Zarina Pope PA-C Unavailable Source Comments In the event this information is protected by the Federal Confidentiality of Alcohol and Drug AbusePatient Records regulations: The Federal rules restrict any use of the information to criminally investigate or prosecute any alcohol or drug abuse patient.[facility] Encounter Details Date Type Department Care Team (Late st Contact Info) Description 06/12/2024 Patient Msg Internal Medicine [address] [place] [address] Berenice Rivas APRN.REPEAT CHIEF [address] [place] [address] Appointment Request Social History Tobacco Use Types Packs/Day Years Used Date Smoking Tobacco: Never Smokeless Tobacco: Never Alcohol Use Standard Drinks/Week Comments Yes 1.3 (1 standard drink = 0.6 oz p ure alcohol) occ. drink [facility] Utilities Answer Date Recorded In the past 12 months has th e electric, gas, oil, or water [employer] threatened to shut off services in your [...] often do you attend chur ch or adventism services? Never 07/19/2023 Do you belong to any clubs o r organizations such as jehovah's witness groups, unions, fraternal or athletic groups, or [...] Answer Date Recorded PHQ-2 score 0 07/22/2023 [facility] of Occupat ional Health - Occupational Stress [...] risk 8 07/19/2023 Data from: https://www.neighborhoodatlas.medicine.[facility].edu/. Last address used for calculation [...] on filedocumented in this encounter Care Teams Certified Nursing Attendant Relationship Specialty [place] [address] [place] [address] PCP - General Internal Medicine 01/11/22 Sonia Dickerson, COKE DRAWER.REPEAT CHIEF [address] [place] [address] Postdoctoral Scholar Internal Medicine 07/30/24 08/29/24 Fatimah Geiger, COKE DRAWER.REPEAT CHIEF [address] [place] [address] Postdoctoral Scholar Internal Medicine 07/30/24 Ruth Richardson, COKE DRAWER.REPEAT CHIEF [address] [place] [address] [facility] Internal Medicine 07/30/24 08/29/24 Berenice Rivas, COKE DRAWER.REPEAT CHIEF [address] [place] [address] [facility] Internal Medicine 07/30/24 08/29/24 Zarina Pope PA-C [address] [place] [address] Postdoctoral Scholar Internal Medicine 07/30/24 08/29/24 documented as of this encounter
--- OUTSIDE RECORDS SUMMARY | 2025-04-24 14:48 | XMS_ITS | Encounter Summary ---
Author Organization [facility] Address [address] [place] [id number] Care Team Providers Care Agriculturist Name Role Phone Dasha Lujan MD Primary Care Provider Sonia Dickerson [employer]ON [employer] Unavailable Fatimah Geiger [employer].IRON CASTER Unavailable Ruth Richardson [employer].IRON CASTER Unavailable [phone] Berenice Rivas APRN.IRON CASTER Unavailable Zarina Pope PA-C Unavailable Source Comments In the event this information is protected by the Federal Confidentiality of Alcohol and Drug AbusePatient Records regulations: The Federal rules restrict any use of the information to criminally investigate or prosecute any alcohol or drug abuse patient.[facility] Encounter Details Date Type Department Care Team (Late st Contact Info) Description 06/18/2024 Patient Msg Internal Medicine [address] [place] [address] Berenice Rivas APRN.IRON CASTER [address] [place] [address] Appointment Request Social History Tobacco Use Types Packs/Day Years Used Date Smoking Tobacco: Never Smokeless Tobacco: Never Alcohol Use Standard Drinks/Week Comments Yes 1.3 (1 standard drink = 0.6 oz p ure alcohol) occ. drink [facility] Utilities Answer Date Recorded In the past 12 months has th e electric, gas, oil, or water [employer] threatened to shut off services in your [...] often do you attend chur ch or zoroastrianism services? Never 07/19/2023 Do you belong to [...] Date Recorded PHQ-2 score 0 07/22/2023 [facility] - Occupational [...] risk 8 07/19/2023 Data from: https://www.neighborhoodatlas.medicine.[facility].edu/. Last address used for calculation [...] on filedocumented in this encounter Care Teams Agriculturist Relationship Specialty [place] [address] [place] [address] PCP - General Internal Medicine 01/11/22 Sonia Dickerson, [employer].IRON CASTER [address] [place] [address] [facility] [employer] [facility] 07/30/24 08/29/24 Fatimah Geiger, FINISH[employer].IRON CASTER [address] [place] [address] [address] [facility] 07/30/24 Ruth Richardson, FINISH[employer].IRON CASTER [address] [place] [address] [facility] Internal Medicine 07/30/24 08/29/24 Berenice Rivas, [employer]ON CASTER [address] [place] [address] [facility] Internal Medicine 07/30/24 08/29/24 Zarina Pope PA-C [address] [place] [address] [address] [facility] [employer] Internal [facility] 07/30/24 08/29/24 documented as of this encounter
--- OUTSIDE RECORDS SUMMARY | 2025-04-24 18:53 | XMS_ITS | CCD ---
Author Organization [facility] CliniSyil Care Team Providers Care Installation Specialist Name Role Phone Unavailable Primary Care Provider UnavailDasha Kern MD Primary Care Provider [phone] MD Dasha Lujan Primary Care Provider BRETT Breaux Attending Provider [phone] Reena Breaux Admitting Unavailable Reena Breaux Attending [...] Unallocated , N[place] Provider Primary Care [facility] Teo CYBER INCIDENT ANALYST, Edu N Unavailable [phone] Teo CYBER INCIDENT ANALYST, Edu N Unavailable [phone] Unavailable Primary Care Provider UnavailDEVIKA Lima [...] ROSCOE Attending Unavailable ROSCOE DIAZ Referring Unavailable ROSOCE DIAZ Attending Unavailable SINA GARNER Attending Unavailable SINA GARNER Referring Unavailable EDU ALVAREZ Attending Unavailable Medications Current Medications Medication Drug Class(es) Dates Sig (Normalized) Sig (Original) aspirin 81 mg delayed release oral tablet (15 sources) Platelet Aggregation Inhibitor, Nonsteroidal Anti-inflammatory Drug [...] Glucose Monitoring Suppl (D-Care Glucometer) w/Device kit (20 sources) Start: 02-04-2025 End: 02-04-2026 Blood Glucose Monitoring Suppl (D-Care Glucometer) w/Device kit Indications: Gestational diabetes mellitus (GDM), antepartum, gestational diabetes method of control unspecified ([facility]) , Elevated glucose tolerance test 1 kit Daily Use four times daily to check FSBS. In the morning prior to breakfast & 1 hour after each meal for a total of 4times daily. 1 kit 02/04/2025 02/04/2026 Active 3 ml insulin glargine 100 unt/ml pen injector (20 sources) Insulin Analog Start: 03-12-2025 inject 10 [...] Active isopropyl alcohol 0.7 ml/ml medicated pad (20 sources) Start: 02-04-2025 Alcohol Swabs (Alcohol Prep Pad) 70 % pads Indications: Gestational diabetes mellitus (GDM), antepartum, gestational diabetes method of control unspecified ([facility]) , Elevated glucose tolerance test Apply 1 Pad topically Daily Use four times daily to check FSBS. 150 each 3 02/04/2025 Active omeprazole 20 mg delayed release oral capsule (20 sources) Proton Pump Inhibitor Start: 04-16-2022 Omeprazole Magnesium (ACID MEAT GRINDER, OMEPRAZOLE,) 20 mg cpDR 04/16/2022 Active take [...] Active ondansetron 4 mg disintegrating oral tablet (18 sources) Serotonin-3 Receptor Antagonist Start: 10-18-2024 End: [...] 30 days. BMI 29.76 polyethylene glycol 3350 07894 mg powder for oral solution (2 sources) Osmotic Laxative Start: End: take 17 g by mouth once polyethylene glycol, PEG, 3350 (Glycolax) 17 GM/SCOOP powder Indications: Colonoscopy Take 238 g by mouth 1 (one) time for 1 dose Take as detailed from clinic hand out for colonoscopy prep 238 g 07/25/2024 07/25/2024 Active 25-IRON EGU-MIFOG-HAN ORAL (13 sources) take 1 tablet by mouth in the morning 25-IRON SFE-RQULN-JDD ORAL Take 1 tablet by mouth in the morning. Active Vit-Fe Fumarate-FA ( 19) 29-1 MG chewable tablet (20 sources) Start: Vit-Fe Fumarate-FA ( 19) 29-1 MG chewable tablet Indications: , unspecified gestational age ([facility]) Chew 1 each Daily 30 tablet 11 [...] 06-29-2024 Episodic Other and delivery including normal (18 sources) ; Translations: [Encounter for supervision of [...] [34 weeks gestation of ] 04-10-2025 Episodic Residual codes; unclassified (2 sources) Gestation period, 36 weeks; Translations: [36 weeks gestation of ] 04-24-2025 Episodic Unclassified (20 sources) OB Reminders Onset: 5 10-19-2024 Unclassified (1 source) Elevated Glucose Tolerance Test Onset: 5 Past or Other Problems Problem Classification Problem [...] Range Facility Urinalysis macro (dipstick) panel (U)on 09-03-2025 Bilirubin, UA Negative Negative - 4(70) +++ mg/dL [facility] Blood, UA Negative Negative - 50 Iraj/mcL [facility] Clarity, UA Clear [facility] Color, UA Yellow [facility] Glucose, UA Negative Negative - 2000(110) ++++ mg/dL [facility] Interpretation and review of laboratory results Normal [facility] Ketones, UA Negative Negative - 160(16) ++++ mg/dL [facility] Leukocytes, UA Negative Negative - 500+++ Mari/mcL [facility] Nitrite, UA Negative Negative - Positive [facility] pH, UA 6 5 - 9 [facility] Protein, UA Negative Negative - 2000(20) ++++ mg/dL [facility] Spec Grav, UA 1.02 1 - 1.03 [facility] Urobilinogen, UA 1.0 0.2 - 12 mg/dL [facility] US OB BPP W NON-STRESS on 04-23-2025 [place] [address] Ultrasound Report Signed Patient: CARYL ZAMARRIPA MR#: [id number] : 1990 Acct:[id number] Age/Sex: 34 / F ADM Date: 04/23/25 Loc: [facility] [address]: Rosy Quiroz Ordering Physician: Rosy Quiroz Date of Service: 04/23/25 Procedure(s): US OB BPP w non-stress Accession Number(s): [id number] cc: Rosy Quiroz; Physician,Non-Staff M.D. The [place] [id number] Patient Name: CARYL ZAMARRIPA MRN: [facility]:[id number] date: 1990 Sex: F Assigned Patient Location: Current Patient Location: US Accession/Order Number: [id number] Exam Date: 04/23/2025 16:03 Report Date: 04/23/2025 16:35 At the request of: ROSY QUIROZ Procedure: US OB BPP w non-stress Biophysical profile. Reason for exam: History of gastric sleeve surgery COMPARISON: 04/15/2025 TECHNIQUE: Transabdominal imaging of the gravid uterus was obtained. FINDINGS: The repair operator reports a BPP of 8 out of 8. HLELEN is normal at 11.5 cm. heart rate 135 bpm. US/US OB BPP w non-stress IMPRESSION: BPP 8 out of 8. Impression dictated by: Cy Jensen Jr., D.O. 04/23/2025 4:35 PM Dictation Location: [place] [address] Electronically authenticated by: [id number] Y Date: 04/23/2025 16:35 Dictated By: Cy Jensen M.D. Signed By: 04/23/25 1637 DD/ TD/TT: .Net Programmer: [facility] Radiology, Radiologist, MD - 04/23/2025 [place] [address] Ultrasound Report Signed Patient: CARYL ZAMARRIPA MR#: [id number] : 1990 Acct:[id number] Age/Sex: 34 / F ADM Date: 04/23/25 Loc: [facility] 250-[address]: Rosy Quiroz Ordering Physician: Rosy Quiroz Date of Service: 04/23/25 Procedure(s): US OB BPP w non-stress Accession Number(s): [id number] cc: Rosy Quiroz; Physician,Non-Staff [facility] [place] [address] Patient Name: CARYL ZAMARRIPA MRN: [facility]:[id number] date: 1990 Sex: F Assigned Patient Location: Current Patient Location: US Accession/Order Number: [id number] Exam Date: 04/23/2025 16:03 Report Date: 04/23/2025 16:35 At the request of: ROSY QUIROZ Procedure: US OB BPP w non-stress Biophysical profile. Reason for exam: History of gastric sleeve surgery COMPARISON: 04/15/2025 TECHNIQUE: Transabdominal imaging of the gravid uterus was obtained. FINDINGS: The repair operator reports a BPP of 8 out of 8. HELLEN is normal at 11.5 cm. heart rate 135 bpm. US/US OB BPP w non-stress IMPRESSION: BPP 8 out of 8. Impression dictated by: Cy Jensen Jr., D.O. 04/23/2025 4:35 PM Dictation Location: [place] [address] Electronically authenticated by: [id number] Y Date: 04/23/2025 16:35 Dictated By: Cy Jensen M.D. Signed By: 04/23/251636 DD/ 34 TD/TT: .Net Programmer: [facility] [employer] Radiology Study observation (narrative) [facility] US OB BPP W NON-STRESS Ordered By: Radiologist Radiology on 04-23-2025 [facility] [employer] Work Phone: US OB BPP W NON-STRESS on 04-15-2025 [place] [address] Ultrasound Report Signed Patient: CARYL ZAMARRIPA MR#: [id number] : 1990 Acct:[id number] Age/Sex: 34 / F ADM Date: 04/15/25 Loc: US Attending Dr: Rosy Quiroz Ordering Physician: Rosy Quiroz Date of Service: 04/15/25 Procedure(s): US OB BPP w non-stress Accession Number(s): [id number] cc: Rosy Quiroz; Physician,Non-Staff Shimon [facility] [place] [id number] Patient Name: CARYL ZAMARRIPA MRN: [facility]:[id number] date: 1990 Sex: F Assigned Patient Location: Current Patient Location: Accession/Order Number: [id number] Exam Date: 04/15/2025 15:09 Report Date: 04/15/2025 16:16 At the request of: ROSY QUIROZ Procedure: US OB BPP w non-stress Biophysical profile. Reason for exam: History of gastric sleeve surgery COMPARISON: 04/08/2025 TECHNIQUE: Transabdominal imaging of the gravid uterus was obtained. FINDINGS: The repair operator reports a BPP of 8 out of 8. HELLEN is normal at 17 cm. heart rate 136 bpm. US/US OB BPP w non-stress IMPRESSION: BPP 8 out of 8. Impression dictated by: Cy Jensen Jr., D.O. 04/15/2025 4:16 PM Dictation Location: [place] [address] Electronically authenticated by: [id number] Y Date: 04/15/2025 16:16 Dictated By: Cy Jensen M.D. Signed By: 04/15/25 1619 DD/ 15 TD/TT: .Net Programmer: [facility] Radiology, Radiologist, MD - 04/15/2025 [place] [address] Ultrasound Report Signed Patient: CARYL ZAMARRIPA MR#: [id number] : 1990 Acct:[id number] Age/Sex: 34 / F ADM Date: 04/15/25 Loc: US Attending Dr: Rosy Quiroz Ordering Physician: Rosy Quiroz Date of Service: 04/15/25 Procedure(s): US OB BPP w non-stress Accession Number(s): [id number] cc: Rosy Quiroz; Physician,Non-Staff Shimon [facility] [place] [phone] Patient Name: CARYL ZAMARRIPA MRN: [facility]:[id number] date: 1990 Sex: F Assigned Patient Location: US Current Patient Location: Accession/Order Number: [id number] Exam Date: 04/15/2025 15:09 Report Date: 04/15/2025 16:16 At the request of: ROSY QUIROZ Procedure: US OB BPP w non-stress Biophysical profile. Reason for exam: History of gastric sleeve surgery COMPARISON: 04/08/2025 TECHNIQUE: Transabdominal imaging of the gravid uterus was obtained. FINDINGS: The repair operator reports a BPP of 8 out of 8. HELLEN is normal at 17 cm. heart rate 136 bpm. US/US OB BPP w non-stress IMPRESSION: BPP 8 out of 8. Impression dictated by: Cy Jensen Jr., D.O. 04/15/2025 4:16 PM Dictation Location: [place] [address] Electronically authenticated by: [id number] Y Date: 04/15/2025 16:16 Dictated By: Cy Jensen M.D. Signed By: 04/15/251618 DD/ 15 TD/TT: .Net Programmer: [facility] Radiology Study observation (narrative) [facility] US OB BPP W NON-STRESS Ordered By: Radiologist Radiology on 04-15-2025 [facility] Work Phone: Urinalysis macro (dipstick) panel (U)on 04-10-2025 Bilirubin, UA Negative Negative - 4(70) +++ mg/dL [facility] Blood, UA Negative Negative - 50 Iraj/mcL [facility] Clarity, UA Clear [facility] Color, UA Yellow [facility] Glucose, UA Negative Negative - 2000(110) ++++ mg/dL [facility] Interpretation and review of laboratory results Abnormal [facility] Ketones, UA Negative Negative - 160(16) ++++ mg/dL [facility] Leukocytes, UA Positive Negative - 500+++ Mari/mcL [facility] Nitrite, UA Negative Negative - Positive [facility] pH, UA 6 5 - 9 [facility] Protein, UA Positive Negative - 2000(20) ++++ mg/dL [facility] Spec Grav, UA 1.015 1 - 1.03 [facility] Urobilinogen, UA 1.0 0.2 - 12 mg/dL [facility] US OB BPP W NON-STRESS on 04-08-[address] [address] Ultrasound Report Signed Patient: CARYL ZAMARRIPA MR#: [id number] : 1990 Acct:[id number] Age/Sex: 34 / F ADM Date: 04/08/25 Loc: US Attending Dr: Rosy Quiroz Ordering Physician: Rosy Quiroz Date of Service: 04/08/25 Procedure(s): US OB BPP w non-stress Accession Number(s): [id number] cc: Rosy Quiroz; Physician,Non-Staff MM[facility] [address] [place] [id number] Patient Name: CARYL ZAMARRIPA MRN: [facility]:[id number] date: 1990 Sex: F Assigned Patient Location: [facility] Current Patient Location: Accession/Order Number: [id number] Exam Date: 04/08/2025 20:36 Report Date: 04/08/2025 [...] Briscoe M.D. 04/08/2025 8:37 PM Dictation Location: [place] [address] Electronically authenticated by: [id number] Y Date: 04/08/2025 20:37 Dictated By: Suraj Briscoe D.O. Signed By: 04/08/252038 DD/ 36 TD/TT: .Net Programmer: [facility] Radiology, Radiologist, - 04/08/2025 [place] [address] Ultrasound Report Signed Patient: CARYL ZAMARRIPA MR#: [id number] : 1990 Acct:[id number] Age/Sex: 34 / F ADM Date: 04/08/25 Loc: US Attending Dr: Rosy Quiroz Ordering Physician: Rosy Quiroz Date of Service: 04/08/25 Procedure(s): US OB BPP w non-stress Accession Number(s): [id number] cc: Rosy Quiroz; Physician,Non-Staff Shimon [facility] [place] [phone] Patient Name: CARYL ZAMARRIPA MRN: [facility]:[id number] date: 1990 Sex: F Assigned Patient Location: [facility] Current Patient Location: Accession/Order Number: [id number] Exam Date: 04/08/2025 20:36 Report Date: 04/08/2025 [...] Briscoe M.D. 04/08/2025 8:37 PM Dictation Location: [facility] Electronically authenticated by: [id number] Y Date: 04/08/2025 20:37 Dictated By: Suraj Briscoe D.O. Signed By: 04/08/252038 DD/ 36 TD/TT: .Net Programmer: [facility] Radiology Study observation (narrative) [facility] US OB BPP W NON-STRESS Ordered By: Radiologist Radiology on 04-08-2025 [facility] [employer] Work Phone: US OB FOLLOW UP TRANSABDOMIN [...] II, MD, PHD at 09-Apr-2025 07:59:18 AM [facility] Normal Not Available Comment on above: Order Comment: US OB SCAN FOR GROWTH Estimated Date of Delivery: 05/19/25 Gestational Age as of 04/05/2025: 33w5d US OB BPP W NON-STRESS on 04-01-2025 [place] [address] Ultrasound Report Signed Patient: CARYL ZAMARRIPA MR#: [id number] : 1990 Acct:[id number] Age/Sex: 34 / F ADM Date: 04/01/25 Loc: [place] [address]: Rosy Quiroz Ordering Physician: Rosy Quiroz Date of Service: 04/01/25 Procedure(s): US OB BPP w non-stress Accession Number(s): [id number] cc: Rosy Quiroz; Physician,Non-Staff M.D. The [address] [address] Patient Name: CARYL ZAMARRIPA MRN: [facility]:[id number] date: 1990 Sex: F Assigned Patient Location: US Current Patient Location: US Accession/Order Number: [id number] Exam Date: 04/01/2025 15:28 Report Date: 04/01/2025 15:29 At the request of: ROSY QUIROZ Procedure: US OB BPP w non-stress Biophysical profile. Reason for exam: History of gastric sleeve surgery COMPARISON: None TECHNIQUE: Transabdominal imaging of the gravid uterus was obtained. FINDINGS: The repair operator reports a BPP of 8 out of 8. HELLEN is normal at 10.8 cm. heart rate 125 bpm. US/US OB BPP w non-stress IMPRESSION: BPP 8 out of 8. Impression dictated by: Cy Jensen Jr., D.O. 04/01/2025 3:29 PM Dictation Location: [employer] Electronically authenticated by: [id number] Y Date: 04/01/2025 15:29 Dictated By: Cy Jensen M.D. Signed By: 04/01/25 1531 DD/ 1529 TD/TT: .Net Programmer: [facility] Radiology, Radiologist, MD - 04/01/2025 [place] [address] Ultrasound Report Signed Patient: CARLY ZAMARRIPA MR#: [id number] : 1990 Acct:[id number] Age/Sex: 34 / F ADM Date: 04/01/25 Loc: [facility] 250-[address]: Rosy Quiroz Ordering Physician: Rosy Quiroz Date of Service: 04/01/25 Procedure(s): US OB BPP w non-stress Accession Number(s): [id number] cc: Rosy Quiroz; Physician,Non-Staff Shimon [facility] [place] [address] Patient Name: CARYL ZAMARRIPA MRN: [facility]:[id number] date: 1990 Sex: F Assigned Patient Location: Current Patient Location: US Accession/Order Number: [id number] Exam Date: 04/01/2025 15:28 Report Date: 04/01/2025 15:29 At the request of: ROSY QUIROZ Procedure: US OB BPP w non-stress Biophysical profile. Reason for exam: History of gastric sleeve surgery COMPARISON: None TECHNIQUE: Transabdominal imaging of the gravid uterus was obtained. FINDINGS: The repair operator reports a BPP of 8 out of 8. HELLEN is normal at 10.8 cm. heart rate 125 bpm. US/US OB BPP w non-stress IMPRESSION: BPP 8 out of 8. Impression dictated by: Cy Jensen Jr., D.O. 04/01/2025 3:29 PM Dictation Location: [employer] Electronically authenticated by: [id number] Y Date: 04/01/2025 15:29 Dictated By: Cy Jensen M.D. Signed By: 04/01/25 1531 DD/ 1529 TD/TT: .Net Programmer: [facility] Radiology Study observation (narrative) [facility] US OB BPP W NON-STRESS Ordered By: Radiologist Radiology on 04-01-2025 [facility] Work Phone: Urinalysis macro (dipstick) panel (U)on 03-27-2025 Bilirubin, UA Negative Negative - 4(70) +++ mg/dL [facility] Blood, UA Negative Negative - 50 Iraj/mcL [facility] Clarity, UA Clear [facility] Color, UA Yellow [facility] Glucose, UA Negative Negative - 2000(110) ++++ mg/dL [facility] Interpretation and review of laboratory results Abnormal [facility] Ketones, UA Positive Negative - 160(16) ++++ mg/dL [facility] Leukocytes, UA Few Negative - 500+++ Mari/mcL [facility] Nitrite, UA Negative Negative - Positive [facility] pH, UA 6 5 - 9 [facility] Protein, UA Few Negative - 2000(20) ++++ mg/dL [facility] Spec Grav, UA 1.03 1 - 1.03 [facility] Urobilinogen, UA 0.2 0.2 - 12 mg/dL [facility] Urinalysis macro (dipstick) panel (U)on 03-13-2025 Bilirubin, UA Negative Negative - 4(70) +++ mg/dL [facility] Blood, UA Negative Negative - 50 Iraj/mcL [facility] Clarity, UA Clear [facility] Color, UA Yellow [facility] Glucose, UA Negative Negative - 2000(110) ++++ mg/dL [facility] Interpretation and review of laboratory results Normal [facility] Ketones, UA Negative Negative - 160(16) ++++ mg/dL [facility] Leukocytes, UA Negative Negative - 500+++ Mari/mcL [facility] Nitrite, UA Negative Negative - Positive [facility] pH, UA 6 5 - 9 [facility] Protein, UA Negative Negative - 2000(20) ++++ mg/dL [facility] Spec Grav, UA 1.01 1 - 1.03 [facility] Urobilinogen, UA 1.0 0.2 - 12 mg/dL [facility] US OB FOLLOW UP TRANSABDOMIN AL [...] UA Negative Negative - 4(70) +++ mg/dL [facility] Blood, UA Negative Negative - 50 Iraj/mcL [facility] Clarity, UA Clear [facility] Color, UA Colorless [facility] Glucose, UA Negative Negative - 2000(110) ++++ mg/dL [facility] Interpretation and review of laboratory results Normal [facility] Ketones, UA Negative Negative - 160(16) ++++ mg/dL [facility] Leukocytes, UA Negative Negative - 500+++ Mari/mcL [facility] Nitrite, UA Negative Negative - Positive [facility] pH, UA 6 5 - 9 [facility] Protein, UA Negative Negative - 1999(20) ++++ mg/dL [facility] Spec Grav, UA 1.01 1 - 1.03 [facility] Urobilinogen, UA 1.0 0.2 - 12 mg/dL [facility] Glucose random or fasting- P OCTon 02-14-2025 External Glucose Fasting Or Random (Fbs) 88 [facility] Urinalysis macro (dipstick) panel (U)on 02-11-2025 Bilirubin, UA Negative Negative - 4(70) +++ mg/dL [facility] Blood, UA Negative Negative - 50 Iraj/mcL [facility] Clarity, UA Clear [facility] Color, UA Yellow [facility] Glucose, UA Positive Negative - 1999(110) ++++ mg/dL [facility] Comment on above: 500mg/dL Interpretation and review of laboratory results Abnormal [facility] Ketones, UA Negative Negative - 160(16) ++++ mg/dL [facility] Leukocytes, UA Negative Negative - 500+++ Mari/mcL [facility] Nitrite, UA Negative Negative - Positive [facility] pH, UA 6 5 - 9 [facility] Protein, UA Negative Negative - 1999(20) ++++ mg/dL [facility] Spec Grav, UA 1.005 1 - 1.03 [facility] Urobilinogen, UA 0.2 0.2 - 12 mg/dL [facility] ALL CBC WITH AUTO DIFFon BASOPHILS ABSOLUTE AUTO 0 N [facility] Basophils/100 WBC (Bld) 0.2 % 0.2 - 2.0 % [facility] Eosinophils/100 WBC (Bld) 1.1 % 0.9 - 7.0 % [facility] Erythrocyte distribution width (RBC) [Ratio] 13.6 % 11.0 - 15.0 % [facility] IMMATURE GRANULOCYTES ABS AUTO 0.04 High [facility] Immature granulocytes/100 WBC (Bld) 0.4 % 0.0 - 0.5 % [facility] Interpretation and review of laboratory results Abnormal [facility] LYMPHOCYTES ABSOLUTE AUTO 1.2 [facility] Lymphocytes/100 WBC (Bld) 12.5 % Low 20.5 - 60.0 % [facility] MCH (RBC) [Entitic mass] 33.9 pg 26. 7 - 34.0 pg [facility] MCHC (RBC) [Mass/Vol] 33.9 g/dL 29.9 - 35.2 g/dL [facility] MCV (RBC) [Entitic vol] 100 fL High 81.0 - 99.0 fL [facility] MONOCYTES ABSOLUTE AUTO 0.4 N [facility] Monocytes/100 WBC (Bld) 3.9 % 1.7 - 12.0 % [facility] NEUTROPHILS ABSOLUTE AUTO 7.7 High [facility] Neutrophils/100 WBC (Bld) 81.9 % High 43.0 - 75.0 % [facility] Platelet mean volume (Bld) [Entitic vol] 11 fL 9.5 - 13.5 fL [facility]H EO # 0.1 [facility] PLT 172 [facility] RBC 3.39 Low [facility] WBC 9.4 [facility] Glucose 1h post 50g loadon 0 02-01-2025 Glucose, 1 hr PP 50GM dose 198 [facility] - Hematology and Cell countson 02-01-2025 Hematocrit (Bld) [Volume fraction] 33.9 % [facility] Hemoglobin (Bld) [Mass/Vol] 11.5 g/dL [facility] No Panel Informationon 02-01 [facility] US OB LIMITED 1+ FETUSESon 0 [...] II, MD, PHD at 01-Feb-2025 10:22:21 AM [facility] Normal Not Available Comment on above: Order Comment: US OB INCOMPLETE ANATOMY Estimated Date of Delivery: 05/19/25 Gestational Age as of 01/07/2025: 21w1d Urinalysis macro (dipstick) panel (U)on 01-10-2025 Bilirubin, UA Negative Negative - 4(70) +++ mg/dL [facility] Blood, UA Negative Negative - 50 Iraj/mcL [facility] Clarity, UA Clear [facility] Color, UA Yellow [facility] Glucose, UA Negative Negative - 1999(110) ++++ mg/dL [facility] Interpretation and review of laboratory results Abnormal [facility] Ketones, UA Positive Negative - 160(16) ++++ mg/dL [facility] Leukocytes, UA Negative Negative - 500+++ Mari/mcL [facility] Nitrite, UA Negative Negative - Positive [facility] pH, UA 6 5 - 9 [facility] Protein, UA Negative Negative - 2000(20) ++++ mg/dL [facility] Spec Grav, UA 1.01 1 - 1.03 [facility] Urobilinogen, UA 0.2 0.2 - 12 mg/dL [facility] No Panel InformationOrdered By: Radiologist Radiology on 01-02-2025 [facility] Work Phone: No Panel Informationon 01-02 Radiology Study observation (narrative) [facility] US OB ANATOMYon 01-02-[address] [address] Ultrasound Report Signed Patient: CARYL ZAMARRIPA MR#: [id number] : 1990 Acct:[id number] Age/Sex: 34 / F ADM Date: 01/02/25 Loc: US Attending Dr: Roscoe Diaz D.O. Ordering Physician: Roscoe Diaz D.O. Date of Service: 01/02/25 Procedure(s): US OB anatomy Accession Number(s): [id number] cc: Roscoe Diaz D.O.; Physician,Non-Staff M.DCharisse [address] [address] Patient Name: CARYL ZAMARRIPA MRN: [id number] date: 1990 Sex: F Assigned Patient Location: US Current Patient Location: US Accession/Order Number: [id number] Exam Date: 01/02/2025 22:40 Report Date: 01/02/2025 [...] Briscoe M.D. 01/02/2025 10:47 PM Dictation Location: [email or web address] Electronically authenticated by: [id number] Y Date: 01/02/2025 22:47 Dictated By: Suraj Briscoe D.O. Signed By: 01/02/254 DD/ 46 TD/TT: .Net Programmer: [facility] Radiology, Radiologist, - 01/02/2025 [place] [address] Ultrasound Report Signed Patient: CARYL ZAMARRIPA MR#: [id number] : 1990 Acct:[id number] Age/Sex: 34 / F ADM Date: 01/02/25 Loc: US Attending Dr: Roscoe Diaz D.O. Ordering Physician: Roscoe Diaz D.O. Date of Service: 01/02/25 Procedure(s): US OB anatomy Accession Number(s): [id number] cc: Roscoe Diaz D.O.; Physician,Non-Staff M.DCharisse [place] [address] Patient Name: CARYL ZAMARRIPA MRN: [id number] date: 1990 Sex: F Assigned Patient Location: US Current Patient Location: US Accession/Order Number: [id number] Exam Date: 01/02/2025 22:40 Report Date: 01/02/2025 [...] Briscoe M.D. 01/02/2025 10:47 PM Dictation Location: [facility] Electronically authenticated by: [id number] Y Date: 01/02/2025 22:47 Dictated By: Suraj Briscoe D.O. Signed By: 01/02/252249 DD/ 46 TD/TT: .Net Programmer: [facility] US OB CERVICAL LENGTHon 12-20 [place] [address] Ultrasound Report Signed Patient: CARYL ZAMARRIPA MR#: [id number] : 1990 Acct:[id number] Age/Sex: 34 / F ADM Date: 01/02/25 Loc: US Attending Dr: Roscoe Diaz D.O. Ordering Physician: Roscoe Diaz D.O. Date of Service: 01/02/25 Procedure(s): US OB cervical length Accession Number(s): [id number] cc: Roscoe Diaz D.O.; Physician,Non-Staff [place] [id number] Patient Name: CARYL ZAMARRIPA MRN: [id number] date: 1990 Sex: F Assigned Patient Location: US Current Patient Location: US Accession/Order Number: [id number] Exam Date: 01/02/2025 22:40 Report Date: 01/02/2025 [...] Briscoe M.D. 01/02/2025 10:47 PM Dictation Location: [facility] Electronically authenticated by: [id number] Y Date: 01/02/2025 22:47 Dictated By: Suraj Briscoe D.O. Signed By: 01/02/252249 DD/ 46 TD/TT: .Net Programmer: [facility] Radiology, Radiologist, - 01/02/2025 [place] [address] Ultrasound Report Signed Patient: CARYL ZAMARRIPA MR#: [id number] : 1990 Acct:[id number] Age/Sex: 34 / F ADM Date: 01/02/25 Loc: US Attending Dr: Roscoe Diaz D.O. Ordering Physician: Roscoe Diaz D.O. Date of Service: 01/02/25 Procedure(s): US OB cervical length Accession Number(s): [id number] cc: Roscoe Diaz D.O.; Physician,Non-Staff [place] [id number] Patient Name: CARYL ZAMARRIPA MRN: [id number] date: 1990 Sex: F Assigned Patient Location: Current Patient Location: US Accession/Order Number: [id number] Exam Date: 01/02/2025 22:40 Report Date: 01/02/2025 [...] Briscoe M.D. 01/02/2025 10:47 PM Dictation Location: [place] [address] Electronically authenticated by: [id number] Y Date: 01/02/2025 22:47 Dictated By: Suraj Briscoe D.O. Signed By: 01/02/25 7155 DD/ 46 TD/TT: .Net Programmer: [facility] AFP Single Marker Casey Bangura, Serumon 12-31-2024 Ms Alpha-Fetoprotein Negative [facility] IGP,APTIMA HPV,AGE GDLNon AGE GDLN ACOG TESTING Note . [facility] Comment on above: TESTS RESULT FLAG UN ITS REF RANGE LAB Clinician Provided Cytology Information Source.............[facility] Other.............. No. of containers..01 ThinPrep Vial Age Algo ACOG Enedina... 30-65 FLAG LEGEND: L-Low Normal,H-High Normal,LL-Alert Low,HH-Alert High <-Panic Low,>-Panic High,A-Abnormal,AA-Critical Abnormal Performed at: 01 =[facility] [place] [place] [address] Rossy Odonnell MD, HPV APTIMA Negative Negative [facility] Comment on above: This nucleic acid am plification test detects fourteen high- risk HPV types (16,18,31,33,35,39,45,51,52,56,58,59,66,68) without differentiation. Performed at: =[facility] [place] [id number] Technical Operations Specialist: Rossy Odonnell MD, Phone: [phone] Performed at: WB - [facility] [address], [place] [id number] Technical Operations Specialist: Rossy Odonnell MD, Phone: [phone] IGP, APTIMA HPV, RFX 16/18,45 Note . [facility] Comment on above: TESTS RESULT FLAG UN ITS REF RANGE LAB DIAGNOSIS: 02 NEGATIVE FOR INTRAEPITHELIAL LESION OR MALIGNANCY. Specimen adequacy: 02 Satisfactory for evaluation. No endocervical component is identified. An endocervical component is not commonly seen in the patient. Performed by: Ronan Lucero Corporate Counsel ([facility]) . 02 Note: Note 02 [...] High,A-Abnormal,AA-Critical Abnormal Performed at: 02 WB [facility] [address] [place] [address] Rossy Odonnell MD, SPATULA-[facility] RECURRENT VAGINITIS (HTRX)on 12-11-2024 ATOPOBIUM VAGINAE 0 [facility] ATOPOBIUM VAGINAE Not detected [facility] BVAB 2,3 (BACTERIAL VAGINOSIS ASSOCIATED BACTERIA 2, 3); MOBILUNCUS SPP 0 [facility] BVAB 2,3 (BACTERIAL VAGINOSIS ASSOCIATED BACTERIA 2, 3); MOBILUNCUS SPP Not detected [facility] HAMILTON ALBICANS, PARAPSILOSIS, TROPICALIS 0 [facility] HAMILTON ALBICANS, PARAPSILOSIS, TROPICALIS Not detected [facility] HAMILTON GLABRATA 0 [facility] HAMILTON GLABRATA Not detected [facility] HAMILTON KRUSEI 0 [facility] HAMILTON KRUSEI Not detected [facility] CHLAMYDIA TRACHOMATIS 0 [facility] CHLAMYDIA TRACHOMATIS Not detected N [facility] GARDNERELLA VAGINALIS 0 [facility] GARDNERELLA VAGINALIS Not detected N [facility] MEGASPHAERA (TYPES 1, 2) 0 [facility] MEGASPHAERA (TYPES 1, 2) Not detected [facility] MYCOPLASMA GENITALIUM 0 [facility] MYCOPLASMA GENITALIUM Not detected N [facility] NEISSERIA GONORRHOEAE 0 [facility] NEISSERIA GONORRHOEAE Not detected N [facility] TRICHOMONAS VAGINALIS 0 [facility] TRICHOMONAS VAGINALIS Not detected N [facility] Urinalysis macro (dipstick) panel (U)on 12-10-2024 Bilirubin, UA Negative Negative - 4(70) +++ mg/dL [facility] Blood, UA Negative Negative - 50 Iraj/mcL [facility] Clarity, UA Clear [facility] Color, UA Yellow [facility] Glucose, UA Negative Negative - 1999(110) ++++ mg/dL [facility] Interpretation and review of laboratory results Normal [facility] Ketones, UA Negative Negative - 160(16) ++++ mg/dL [facility] Leukocytes, UA Trace Negative - 500+++ Mari/mcL [facility] Nitrite, UA Negative Negative - Positive [facility] pH, UA 6 5 - 9 [facility] Protein, UA Negative Negative - 1999(20) ++++ mg/dL [facility] Spec Grav, UA 1.01 1 - 1.03 [facility] Urobilinogen, UA 0.2 0.2 - 12 mg/dL [facility] Urinalysis macro (dipstick) panel (U)on 11-08-2024 Bilirubin, UA Negative Negative - 4(70) +++ mg/dL [facility] Blood, UA Negative Negative - 50 Iraj/mcL [facility] Clarity, UA Clear [facility] Color, UA Yellow [facility] Glucose, UA Negative Negative - 1999(110) ++++ mg/dL [facility] Interpretation and review of laboratory results Normal [facility] Ketones, UA Negative Negative - 160(16) ++++ mg/dL [facility] Leukocytes, UA Negative Negative - 500+++ Mari/mcL [facility] Nitrite, UA Negative Negative - Positive [facility] pH, UA 6 5 - 9 [facility] Protein, UA Negative Negative - 1999(20) ++++ mg/dL [facility] Spec Grav, UA 1.015 1 - 1.03 [facility] Urobilinogen, UA 0.2 0.2 - 12 mg/dL [facility] ALL CBC WITH AUTO DIFFon BASOPHILS ABSOLUTE AUTO 0 N [facility] Basophils/100 WBC (Bld) 0.4 % 0.2 - 2.0 % [facility] Eosinophils/100 WBC (Bld) 1.2 % 0.9 - 7.0 % [facility] Erythrocyte distribution width (RBC) [Ratio] 12.4 % 11.0 - 15.0 % [facility] IMMATURE GRANULOCYTES ABS AUTO 0.02 [facility] Immature granulocytes/100 WBC (Bld) 0.2 % 0.0 - 0.5 % [facility] Interpretation and review of laboratory results Abnormal [facility] LYMPHOCYTES ABSOLUTE AUTO 2.2 [facility] Lymphocytes/100 WBC (Bld) 27.2 % 20.5 - 60.0 % [facility] MCH (RBC) [Entitic mass] 33.5 pg 26. 7 - 34.0 pg [facility] MCHC (RBC) [Mass/Vol] 35.3 g/dL High 29.9 - 35.2 g/dL [facility] MCV (RBC) [Entitic vol] 94.9 fL 81.0 - 99.0 fL [facility] MONOCYTES ABSOLUTE AUTO 0.4 N [facility] Monocytes/100 WBC (Bld) 4.9 % 1.7 - 12.0 % [facility] NEUTROPHILS ABSOLUTE AUTO 5.4 [facility] Neutrophils/100 WBC (Bld) 66.1 % 43.0 - 75.0 % [facility] Platelet mean volume (Bld) [Entitic vol] 11.2 fL 9.5 - 13.5 fL [facility] TBH EO # 0.1 [facility] TBH PLT 169 [facility] TB RBC 3.55 Low [facility] WBC 8.2 [facility] CBC without diffon Platelets (Bld) [#/Vol] 169 10*3/uL [facility] Rbc Mcv (Fl) By Automated Count 94.9 [facility] Drug Screen, Urineon 025 Amphetamine/Methamphetam ine Negative [facility] Barbiturates Negative [facility] Benzodiazepines Negative [facility] Cocaine Metabolite Negative [facility] Methadone Negative [facility] Opiates Negative [facility] Oxycodone Negative [facility] Phencyclidine Negative [facility] Thc Marijuana, Urine Negative [facility] Free Cell DNAon 2024 Free Cell Dna LOW RISK [facility] HBV surface Ag IA Qlon 10-19 Hepatitis B Surface Antigen Negative [facility] HCV Ab IA Qlon 10-19-2024 HCV Ab Ql (S) Non-Reactive [facility] HIV 1+2 Ab+HIV1 p24 Ag IA Ql on 10-19-2024 HIV 1&2 AB/AG Non-Reactive [facility] Hemoglobin A1con 10-19-2024 HbA1c (Bld) [Mass fraction] 5.1 % 4.0 - 6.0 % [facility] Laboratory - Hematology and Cell countson 10-19-2024 Hematocrit (Bld) [Volume fraction] 33.7 % [facility] Hemoglobin (Bld) [Mass/Vol] 11.9 g/dL [facility] No Panel Informationon 10-19 [facility] Rubella IGG immune statuson 10-19-2024 Rubella immune IgG IMMUNE [facility] T. pallidum IgG+IgM IA Ql (S )on 10-19-2024 Syphilis Non-Reactive [facility] Type and screenon 10-19-2024 Abo/Rh(D) Positive [facility] HCG ( test) Ql (U)o n 10-18-2024 Interpretation and review of laboratory results Abnormal [facility] Preg Test, Ur Positive Negative [facility] US OB TRANSVAGINALon 025 [...] II, MD, PHD at 20-Oct-2024 07:21:51 AM [facility] Normal Not Available Comment on above: Order Comment: US OB TRANSVAGINAL No LMP recorded. Urinalysis macro (dipstick) panel (U)on 10-18-2024 Bilirubin, UA Negative Negative - 4(70) +++ mg/dL [facility] Blood, UA Negative Negative - 50 Iraj/mcL [facility] Clarity, UA Clear [facility] Color, UA Yellow [facility] Glucose, UA Negative Negative - 2000(110) ++++ mg/dL [facility] Interpretation and review of laboratory results Normal [facility] Ketones, UA Negative Negative - 160(16) ++++ mg/dL [facility] Leukocytes, UA Negative Negative - 500+++ Mari/mcL [facility] Nitrite, UA Negative Negative - Positive [facility] pH, UA 6 5 - 9 [facility] Protein, UA Negative Negative - 1999(20) ++++ mg/dL [facility] Spec Grav, UA 1.01 1 - 1.03 [facility] Urobilinogen, UA 1.0 0.2 - 12 mg/dL [facility] CNOVon 06-29-2024 CNOV Office Visit (INMAVN) CARYL ZAMARRIPA ([id number]) 1990 F Date Time Provider Department 06/29/24 12:40 PM [facility] During your visit today, we recorded the following information about you: Pulse Blood pressure Weight 65/minute 101/68 75.8 kg Berenice Zepeda APRN.PONY WORKER 06/29/2024 1:25 PM Signed Caryl J Zamarripa is a 33 year old female [...] - PHENTERMINE 37.5 MG TABLET Berenice Zepeda APRN.PONY WORKER Allergies As of Date: 06/29/2024 (No Known [...] days. BMI 29.58kg/m2 - Omeprazole Magnesium (ACID MEAT GRINDER, OMEPRAZOLE,) 20 mg cpDR Problem List As Of Date: 06/29/2024 (None) Prescriptions ordered this encounter Disp Refills Start End PHENTERMINE 37.5 MG TABLET 30 t* 0 06/29/2024 07/29/2024 Route: ORAL Sig: Take 1 tablet by mouth once daily for 30 days. BMI 29.58kg/m2 Encounter Status:Closed by BERENICE ZEPEDA on 06/29/24 Normal [facility] CNOVon 08-23-2023 CNOV Office Visit (INMAVN) CARYL ZAMARRIPA ([id number]) 1990 F Date Time Provider Department 08/23/23 4:00 PM BERENICE [facility]EPEDA [facility] During your visit today, we recorded the following information about you: Pulse Blood pressure Weight Last Period 54/minute 121/77 77.6 kg 08/08/23 Berenice Zepeda APRN.PONY WORKER 08/25/2023 12:23 PM Signed Caryl Ankur Zamarripa is a 32 year old female [...] - PHENTERMINE 37.5 MG TABLET Berenice Zepeda APRN.PONY WORKER Allergies As of Date: 08/23/2023 (No Known [...] for 2 days. - Omeprazole Magnesium (ACID MEAT GRINDER, OMEPRAZOLE,) 20 mg cpDR Problem List As [...] Status:Closed by BERENICE ZEPEDA on 08/25/23 Normal [facility] CBC W Auto Differential pane l (Bld)on 07-26-2023 Basophils (Bld) [#/Vol] 0.03 10*3/uL Normal <0.11 [facility] Comment on above: Order Comment: Speci men Type: BLOOD SPECIMEN Ordering Facility: [facility] Address: [address] [place] [address] Performed By: #### 5 7021-8 #### [facility] CLIA [id number] [address] [place] [address] Basophils/100 WBC (Bld) 0.6 % Normal [facility] Comment on above: Order Comment: Speci men Type: BLOOD SPECIMEN Ordering Facility: [facility] Address: [address] [place] [address] Performed By: #### 5 7021-8 #### [facility] CLIA [id number] [address] [place] [address]708 Differential cell count method Nom (Bld) Auto Normal [facility] Comment on above: Order Comment: Speci men Type: BLOOD SPECIMEN Ordering Facility: [facility] Address: [address] [place] [address] Performed By: #### 5 7021-8 #### [facility] CLIA [id number] [address] [place] [address]874 Eosinophils (Bld) [#/Vol] 0.13 10*3/uL Normal <0.46 [facility] Comment on above: Order Comment: Speci men Type: BLOOD SPECIMEN Ordering Facility: [facility] Address: [address] [place] [address] Performed By: #### 5 7021-8 #### [facility] CLIA [id number] [address] [place] [address] Eosinophils/100 WBC (Bld) 2.6 % Normal [facility] Comment on above: Order Comment: Speci men Type: BLOOD SPECIMEN Ordering Facility: [facility] Address: [address] [place] [address] Performed By: #### 5 7021-8 #### [facility] CLIA [id number] [address] [place] [address] Erythrocyte distribution width (RBC) [Ratio] 12.1 % Normal 11.5-15.0 [facility] Comment on above: Order Comment: Speci men Type: BLOOD SPECIMEN Ordering Facility: [facility] Address: [address] [place] [address] Performed By: #### 5 7021-8 #### [facility] CLIA [id number] [address] [place] [address] Hematocrit (Bld) [Volume fraction] 37.0 % Normal 36.0-46.0 [facility] Comment on above: Order Comment: Speci men Type: BLOOD SPECIMEN Ordering Facility: [facility] Address: [address] [place] [address] Performed By: #### 5 7021-8 #### [facility] CLIA [id number] [address] [place] [address] Hemoglobin (Bld) [Mass/Vol] 12.6 g/dL Normal 11.5-15.5 [facility] Comment on above: Order Comment: Speci men Type: BLOOD SPECIMEN Ordering Facility: [facility] Address: [address] [place] [address] Performed By: #### 5 7021-8 #### [facility] CLIA [id number] [address] [place] [address]371 Immature granulocytes (Bld) [#/Vol] 10*3/uL Normal <0.10 [facility] Comment on above: Order Comment: Speci men Type: BLOOD SPECIMEN Ordering Facility: [facility] Address: [address] [place] [address] Performed By: #### 5 7021-8 #### [facility] CLIA [id number] [address] [place] [address]38[address] Immature granulocytes/100 WBC (Bld) 0.2 % Normal [facility] Comment on above: Order Comment: Speci men Type: BLOOD SPECIMEN Ordering Facility: [facility] Address: [address] [place] [address] Performed By: #### 5 7021-8 #### [facility] CLIA [id number] [address] [place] [address] Lymphocytes (Bld) [#/Vol] 1.57 10*3/uL Normal 1.00-4.00 [facility] Comment on above: Order Comment: Speci men Type: BLOOD SPECIMEN Ordering Facility: [facility] Address: [address] [place] [address] Performed By: #### 5 7021-8 #### [facility] CLIA [id number] [address] [place] [address] 88097 Lymphocytes/100 WBC (Bld) 31.2 % Normal [facility] Comment on above: Order Comment: Speci men Type: BLOOD SPECIMEN Ordering Facility: [facility] Address: [address] [place] [address] Performed By: #### 5 7021-8 #### [facility] CLIA [id number] [address] [place] [address] 44346 MCH (RBC) [Entitic mass] 32.2 pg Normal 26.0-34.0 [facility] Comment on above: Order Comment: Speci men Type: BLOOD SPECIMEN Ordering Facility: [facility] Address: [address] [place] [address] Performed By: #### 5 7021-8 #### [facility] CLIA [id number] [address] [place] [address] 48744 MCHC (RBC) [Mass/Vol] 34.1 g/dL Normal 30.5-36.0 [facility] Comment on above: Order Comment: Speci men Type: BLOOD SPECIMEN Ordering Facility: [facility] Address: [address] [place] [address] Performed By: #### 5 7021-8 #### [facility] CLIA [id number] [address] [place] [address] 29377 MCV (RBC) [Entitic vol] 94.6 fL Normal 80.0-100.0 C [facility] Comment on above: Order Comment: Speci men Type: BLOOD SPECIMEN Ordering Facility: [facility] Address: [address] [place] [address] Performed By: #### 5 7021-8 #### [facility] CLIA [id number] [address] [place] [address] 46561 Monocytes (Bld) [#/Vol] 0.32 10*3/uL Normal <0.87 [facility] Comment on above: Order Comment: Speci men Type: BLOOD SPECIMEN Ordering Facility: [facility] Address: [address] [place] [address] Performed By: #### 5 7021-8 #### [facility] CLIA [id number] [address] [place] [address] 59348 Monocytes/100 WBC (Bld) 6.3 % Normal C [facility] Comment on above: Order Comment: Speci men Type: BLOOD SPECIMEN Ordering Facility: [facility] Address: [address] [place] [address] Performed By: #### 5 7021-8 #### [facility] CLIA [id number] [address] [place] [address] 94451 Neutrophils (Bld) [#/Vol] 2.98 10*3/uL Normal 1.45-7.50 [facility] Comment on above: Order Comment: Speci men Type: BLOOD SPECIMEN Ordering Facility: [facility] Address: [address] [place] [address] Performed By: #### 5 7021-8 #### [facility] CLIA [id number] [address] [place] [address] 89245 Neutrophils/100 WBC (Bld) 59.1 % Normal [facility] Comment on above: Order Comment: Speci men Type: BLOOD SPECIMEN Ordering Facility: [facility] Address: [address] [place] [address] Performed By: #### 5 7021-8 #### [facility] CLIA [id number] [address] [place] [address] Nucleated RBC (Bld) [#/Vol] 10*3/uL Normal <0.01 [facility] Comment on above: Order Comment: Speci men Type: BLOOD SPECIMEN Ordering Facility: [facility] Address: [address] [place] [address] Performed By: #### 5 7021-8 #### [facility] CLIA [id number] [address] [place] [address] 71549 Nucleated RBC/100 WBC (Bld) [Ratio] 0.0 /100 WBC Normal [facility] Comment on above: Order Comment: Speci men Type: BLOOD SPECIMEN Ordering Facility: [facility] Address: [address] [place] [address] Performed By: #### 5 7021-8 #### [facility] CLIA [id number] [address] [place] [address] 10391 Platelet mean volume (Bld) [Entitic vol] 10.6 fL Normal 9.0-12.7 [facility] Comment on above: Order Comment: Speci men Type: BLOOD SPECIMEN Ordering Facility: [facility] Address: [address] [place] [address] Performed By: #### 5 7021-8 #### [facility] CLIA [id number] [address] [place] [address] 83898 Platelets (Bld) [#/Vol] 226 10*3/uL Normal 150-400 [facility] Comment on above: Order Comment: Speci men Type: BLOOD SPECIMEN Ordering Facility: [facility] Address: [address] [place] [address] Performed By: #### 5 7021-8 #### [facility] CLIA [id number] [address] [place] [address] 08100 RBC (Bld) [#/Vol] 3.91 10*6/uL Normal 3.90-5.[address] [facility] Comment on above: Order Comment: Speci men Type: BLOOD SPECIMEN Ordering Facility: [facility] Address: [address] [place] [address] Performed By: #### 5 7021-8 #### [facility] CLIA [id number] [address] [place] [address] 23050 WBC (Bld) [#/Vol] 5.04 10*3/uL Normal 3.70-11.[address] [facility] Comment on above: Order Comment: Speci men Type: BLOOD SPECIMEN Ordering Facility: [facility] Address: [address] [place] [address] Performed By: #### 5 7021-8 #### [facility] CLIA [id number] [address] [place] [address] 88209 Comprehensive metabolic 2000 panelon 07-26-2023 Albumin [Mass/Vol] 4.4 g/dL Normal 3.9-4.9 [facility] Comment on above: Order Comment: Speci men Type: BLOOD SPECIMEN Ordering Facility: [facility] Address: [address] [place] [address] Performed By: #### 2 4323-8 #### [facility] CLIA [id number] [address] [place] [address] 50359 ALP [Catalytic activity/Vol] 40 U/L Normal 34-123 [facility] Comment on above: Order Comment: Speci men Type: BLOOD SPECIMEN Ordering Facility: [facility] Address: [address] [place] [address] Performed By: #### 2 4323-8 #### [facility] CLIA [id number] [address] [place] [address] 10026 ALT [Catalytic activity/Vol] 5 U/L Low 7-38 [facility] Comment on above: Order Comment: Speci men Type: BLOOD SPECIMEN Ordering Facility: [facility] Address: [address] [place] [address] Performed By: #### 2 4323-8 #### [facility] CLIA [id number] [address] [place] [address] 93895 Anion gap [Moles/Vol] 8 mmol/L Low 9-18 [facility] Comment on above: Order Comment: Speci men Type: BLOOD SPECIMEN Ordering Facility: [facility] Address: [address] [place] [id number] Performed By: #### 2 4323-8 #### [facility] CLIA [id number] [address] [place] [address] 50013 AST [Catalytic activity/Vol] 7 U/L Low 13-35 [facility] Comment on above: Order Comment: Speci men Type: BLOOD SPECIMEN Ordering Facility: [facility] Address: [address] [place] [address] Performed By: #### 2 4323-8 #### [facility] CLIA [id number] [address] [place] [address] 70844 Bilirubin [Mass/Vol] 0.6 mg/dL Normal 0.2-1.3 [facility] Comment on above: Order Comment: Speci men Type: BLOOD SPECIMEN Ordering Facility: [facility] Address: [address] [place] [address] Performed By: #### 2 4323-8 #### [facility] CLIA [id number] [address] [place] [address] 65490 Calcium [Mass/Vol] 9.5 mg/dL Normal 8.5-10.2 [facility] Comment on above: Order Comment: Speci men Type: BLOOD SPECIMEN Ordering Facility: [facility] Address: [address] [place] [address] Performed By: #### 2 4323-8 #### [facility] CLIA [id number] [address] [place] [address] 79719 Chloride [Moles/Vol] 105 mmol/L Normal 97-105 [facility] Comment on above: Order Comment: Speci men Type: BLOOD SPECIMEN Ordering Facility: [facility] Address: [address] [id number] Performed By: #### 2 4323-8 #### [facility] CLIA [id number] [address] [place] [address] CO2 [Moles/Vol] 27 mmol/L Normal 22-30 [facility] Comment on above: Order Comment: Speci men Type: BLOOD SPECIMEN Ordering Facility: [facility] Address: [address] [id number] Performed By: #### 2 4323-8 #### [facility] CLIA [id number] [address] [place] [address] 03734 Creatinine [Mass/Vol] 0.76 mg/dL Normal 0.58-0.96 [facility] Comment on above: Order Comment: Speci men Type: BLOOD SPECIMEN Ordering Facility: [facility] Address: [address] [place] [address] Performed By: #### 2 4323-8 #### [facility] CLIA [id number] [address] [place] [address] 95814 Creatinine and Glomerular filtration rate.predicted panel (S/P/Bld) 108 mL/min/1.73m??? Normal >=60 [facility] Comment on above: Order Comment: Speci men Type: BLOOD SPECIMEN Ordering Facility: [facility] Address: [address] [place] [address] Result Comment: Erma mated Glomerular Filtration Rate [...] GFR. Performed By: #### 2 4323-8 #### [facility] CLIA [id number] [address] [place] [address] 09905 Glucose [Mass/Vol] 93 mg/dL Normal 74-99 [facility] Comment on above: Order Comment: Speci men Type: BLOOD SPECIMEN Ordering Facility: [facility] Address: [address] [place] [address] Result Comment: The [place] Diabetes Association (ADA) provides guidance for cutoff [...] Standards of Medical Care in Diabetes 2016, [place] [employer] Association. Diabetes Care. 2016.39(Suppl 1). Performed By: #### 2 4323-8 #### [facility] CLIA [id number] [address] [place] [address] 74953 Potassium [Moles/Vol] 4.2 mmol/L Normal 3.7-5.1 [facility] Comment on above: Order Comment: Speci men Type: BLOOD SPECIMEN Ordering Facility: [facility] Address: [address] [place] [address] Performed By: #### 2 4323-8 #### [facility] CLIA [id number] [address] [place] [address] 61418 Protein [Mass/Vol] 7.2 g/dL Normal 6.3-8.0 [facility] Comment on above: Order Comment: Mary head Type: BLOOD SPECIMEN Ordering Facility: [facility] Address: [address] [place] [address] Performed By: #### 2 4323-8 #### [facility] CLIA [id number] [address] [place] [address] 05330 Sodium [Moles/Vol] 140 mmol/L Normal 136-144 [facility] Comment on above: Order Comment: Micki men Type: BLOOD SPECIMEN Ordering Facility: [facility] Address: [address] [place] [address] Performed By: #### 2 4323-8 #### [facility] CLIA [id number] [address] [place] [address] 27232 Urea nitrogen [Mass/Vol] 11 mg/dL Normal 7-21 [facility] Comment on above: Order Comment: Speci men Type: BLOOD SPECIMEN Ordering Facility: [facility] Address: [address] [place] [address] Performed By: #### 2 4323-8 #### [facility] CLIA [id number] [address] [place] [address] 47102 HBV surface Ab Ql (S)on HBV surface Ab Qn (S) <8.00 Normal [facility] Comment on above: Order Comment: Speci men Type: BLOOD SPECIMEN Ordering Facility: [facility] Address: [address] [place] [address] Result Comment: <8 m IU/mL: No serological evidence of immunity to Hepatitis B Virus. >/= 8 to <12 mIU/mL: No serological evidence of immunity to Hepatitis B Virus. >/= 12 mIU/mL: Consistent with serological evidence of immunity to Hepatitis B Virus. Performed By: #### 2 2322-2 #### [facility] CLIA [id number] [address] [place] [address] [place] HBV surface Ab Ser Qlon HBV surface Ab Ql (S) Negative Normal [facility] Comment on above: Order Comment: Micki adilene Type: BLOOD SPECIMEN Ordering Facility: [facility] Address: [address] [place] [address] Result Comment: No s erological evidence of immunity to Hepatitis B Virus. Performed By: #### 2 2322-2 #### [facility] CLIA [id number] [address] [place] [address] [place] HbA1c (Bld)on 07-26-2023 Average glucose Estimated from glycated hemoglobin (Bld) [Mass/Vol] 94 mg/dL Normal [facility] Comment on above: Order Comment: Mary head Type: BLOOD SPECIMEN Ordering Facility: [facility] Address: [address] [place] [address] Result Comment: eAG: (Estimated average glucose) is a calculated value from HgbA1c and is food service sales representatives of the average blood glucose level in the last 2-3 month period. Performed By: #### 5 5454-3 #### [facility] CLIA [id number] [facility] [place] [address] [place] HbA1c (Bld) [Mass fraction] 4.9 % Normal 4.3-5.6 [facility] Comment on above: Order Comment: Mary head Type: BLOOD SPECIMEN Ordering Facility: [facility] Address: [address] [place] [address] Result Comment: [place] Diabetes Association guidelines indicate that patients with HgbA1c in the range 5.7-6.4% are at increased risk for development of diabetes, and intervention by lifestyle modification may be beneficial. HgbA1c greater or equal to 6.5% is considered diagnostic of diabetes. Performed By: #### 5 5454-3 #### [facility] CLIA [id number] [address] [place] [address] [place] Lipid 1996 panelon 3 Cholesterol [Mass/Vol] 172 mg/dL Normal <200 [facility] Comment on above: Order Comment: Mary head Type: BLOOD SPECIMEN Ordering Facility: [facility] Address: [address] [place] [address] Result Comment: <200 mg/dL, Desirable 200-239 mg/dL, Borderline high >239 mg/dL, High Performed By: #### 2 4331-1 #### [facility] CLIA [id number] [address] [place] [address] [place] [facility] CLIA [id number] [address] [place] [address] Cholesterol in HDL [Mass/Vol] 58 mg/dL Normal >39 [facility] Comment on above: Order Comment: Mary head Type: BLOOD SPECIMEN Ordering Facility: [facility] Address: [address] [place] [address] Result Comment: 40-5 9 mg/dL, Acceptable >59 mg/dL, High: Negative risk factor for coronary heart disease <40 mg/dL, Low: Positive risk factor for coronary heart disease Performed By: #### 2 4331-1 #### [facility] CLIA [id number] [address] [facility] CLIA [id number] [address] [place] [address] 00395 Cholesterol in LDL [Mass/Vol] 103 mg/dL High <100 [facility] Comment on above: Order Comment: Speci men Type: BLOOD SPECIMEN Ordering Facility: [facility] Address: [address] [place] [address] Result Comment: <100 mg/dL, Optimal 100-129 mg/dL, Near optimal/above optimal 130-159 mg/dL, Borderline high 160-189 mg/dL, High >189 mg/dL, Very high Secondary prevention optimal LDL Cholesterol levels are recommended to be < 70 mg/dL Performed By: #### 2 4331-1 #### [facility] CLIA [id number] [address] [facility] CLIA [id number] [address] [place] [address] 08941 Cholesterol in LDL/Cholesterol in HDL [Mass ratio] 1.78 {ratio} Normal <2.54 [facility] Comment on above: Order Comment: Speci men Type: BLOOD SPECIMEN Ordering Facility: [facility] Address: [address] [place] [address] Result Comment: Refe rence: 1. National Cholesterol Education Program ATP III Guideline At-A-Glance Quick Desk Reference: National Heart, Lung, and Blood [place]. National Institutes of Health. 2001: NIH Publication No. 01-3305. 2. An International Atherosclerosis Society position paper: global recommendations for the management of dyslipidemia: executive summary, Atherosclerosis. 2014: 232(2):410-413. Performed By: #### 2 4331-1 #### [facility] CLIA [id number] [address] [facility] CLIA [id number] [address] [place] [address] 51863 Cholesterol in VLDL [Mass/Vol] 11 mg/dL Normal <30 [facility] Comment on above: Order Comment: Speci men Type: BLOOD SPECIMEN Ordering Facility: [facility] Address: [address] [place] [address] Performed By: #### 2 4331-1 #### [facility] CLIA [id number] [facility] [address] [facility] CLIA [id number] [address] [place] [address] 77162 Cholesterol non HDL [Mass/Vol] 114 mg/dL Normal <130 [facility] Comment on above: Order Comment: Speci men Type: BLOOD SPECIMEN Ordering Facility: [facility] Address: [address] [place] [address] Result Comment: <130 mg/dL, Optimal 130-159 mg/dL, Near optimal/above optimal 160-189 mg/dL, Borderline high 190-219 mg/dL, High >219 mg/dL, Very high Secondary prevention optimal non HDL Cholesterol levels are recommended to be <100 mg/dL Performed By: #### 2 4331-1 #### [facility] CLIA [id number] [address] [place] [address] LAB CLIA [id number] [address] [place] [address] 93816 Cholesterol.total/Choles terol in HDL [Mass ratio] 2.97 {ratio} Normal <5.10 [facility] Comment on above: Order Comment: Speci men Type: BLOOD SPECIMEN Ordering Facility: [facility] Address: [address] [place] [address] Performed By: #### 2 4331-1 #### [facility] CLIA [id number] [address] [place], [place] [address] [facility] CLIA [id number] [address] [place] [address] 15672 FASTING TIME 12 hrs Normal [facility] Comment on above: Order Comment: Speci men Type: BLOOD SPECIMEN Ordering Facility: [facility] Address: [address] [place] [address] Performed By: #### 2 4331-1 #### [facility] CLIA [id number] [address] [facility] CLIA [id number] [address] [id number] Triglyceride [Mass/Vol] 53 mg/dL Normal <150 [facility] Comment on above: Order Comment: Speci men Type: BLOOD SPECIMEN Ordering Facility: [facility] Address: [address] [place] [address] Result Comment: <150 mg/dL, Normal 150-199 mg/dL, Borderline high 200-499 mg/dL, High >499 mg/dL, Very high Performed By: #### 2 4331-1 #### [facility] CLIA [id number] [address] [facility] CLIA [id number] [address] [place] [address] 13703 CNOVon 07-21-2023 CNOV Office Visit (INMAVN) CARYL ZAMARRIPA ([id number]) 1990 F Date Time Provider Department 07/21/23 4:20 PM BERENICE ZEPEDA INRONNIE During your visit today, we recorded the following information about you: Pulse Blood pressure Weight Height 60/minute 112/74 80.1 kg 1.612 m Last Period 07/09/23 Berenice Zepeda APRN.PONY WORKER 07/22/2023 10:16 AM Signed Caryl Zamarripa is a 32 year old female here today for review of established medical problems as well as comprehensive physical examination. 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 MEDICATIONS Omeprazole Magnesium (ACID MEAT GRINDER, OMEPRAZOLE,) 20 mg cpDR Phentermine HCl 37.5 [...] No history of dysuria, frequency or incontinence WHEEL SETTER: Negative for abnormal vaginal bleeding, abnormal vaginal [...] and symmetric. Sensation grossly intact. Breast/Pelvic: Per WHEEL SETTER ASSESSMENT/PLAN: 1. Routine adult health maintenance - ICD9: V70.0, ICD10: Z00.00 (primary diagnosis) - Counseled on healthy diet and regular exercise - Calcium intake with supplements or by diet of 1000 mg/day for under 50, 1490-0784 mg/day for 50+ - Discussed need and benefit for weight loss. BMI 30.81 kg/(m2) - HGB A1C - COMP METABOLIC PANEL - LIPID PANEL BASIC - CBC + DIFF 2. IFG (impaired fasting glucose) - ICD9: 790.21, ICD10: (more content not included)... Normal [facility] Basophils Auto (Bld) [#/Vol] Ordered By: Reena Breaux on 10-11-2022 Basophils (Bld) [#/Vol] 0.0 10*3/uL 0.0-0.2 [facility] Basophils/100 WBC Auto (Bld) Ordered By: Reena Breaux on 10-11-2022 Basophils/100 WBC (Bld) 0.7 % . F [facility] Body fluid albumin measureme nt (mass/volume)Ordered By: Reena Breaux on 10-11-2022 Albumin (Body fld) [Mass/Vol] 4.0 g/dL 3.2-5.[address] [facility] CT biopsyOrdered By: Reena malhotra on 10-11-2022 Transferrin [Mass/Vol] 206 mg/dL 180-380 [facility] Complete Blood Count Auto Di ffon 10-11-2022 Basophils (Bld) [#/Vol] 0.0 10*3/uL Normal 0.0-0.2 [facility] Comment on above: Result Comment: PERF ORMED BY: [place] [address] PATHOLOGIST SUPERVISOR [employer] AMANDA CALLE M.D. Performed By: #### P HOS, [id number], CMP, CBC, [id number], FE PRO, MG #### [facility] [address] [place] [address] #### VITB1 #### [facility] , Basophils/100 WBC (Bld) 0.7 % Normal . F [facility] Comment on above: Performed By: #### P HOS, [id number], CMP, CBC, [id number], FE PRO, MG #### [facility] [address] [place] [address] [place] #### VITB1 #### [facility] , Eosinophils (Bld) [#/Vol] 0.1 10*3/uL Normal 0.0-0.45 [facility] Comment on above: Performed By: #### P HOS, [id number], CMP, CBC, [id number], FE PRO, MG #### [facility] [address] [place] [address] #### VITB1 #### [facility] , Eosinophils/100 WBC (Bld) 1.7 % Normal . [facility] Comment on above: Performed By: #### P HOS, [id number], CMP, CBC, [id number], FE PRO, MG #### [facility] [address] [place] [address] #### VITB1 #### [facility] , Erythrocyte distribution width (RBC) [Ratio] 12.9 % Normal 11.9-15.3 [facility] Comment on above: Performed By: #### P HOS, [id number], CMP, CBC, [id number], FE PRO, MG #### [address] #### VITB1 #### [facility] , Hematocrit (Bld) [Volume fraction] 39.1 % Normal 34.0-46.4 [facility] Comment on above: Performed By: #### P HOS, [id number], CMP, CBC, [id number], FE PRO, MG #### [facility] [address] [place] [address] #### VITB1 #### [facility] , Hemoglobin (Bld) [Mass/Vol] 13.1 g/dL Normal 11.8-15.4 [facility] Comment on above: Performed By: #### P HOS, [id number], CMP, CBC, [id number], FE PRO, MG #### [facility] [address] [place] [address] [place] #### VITB1 #### [facility] , Lymphocytes (Bld) [#/Vol] 2.7 10*3/uL Normal 1.00-4.8 [facility] Comment on above: Performed By: #### P HOS, [id number], CMP, CBC, [id number], FE PRO, MG #### [address] [place] [address] [place] #### VITB1 #### [facility] , Lymphocytes/100 WBC (Bld) 39.8 % Normal . [facility] Comment on above: Performed By: #### P HOS, [id number], CMP, CBC, [id number], FE PRO, MG #### [address] #### VITB1 #### [facility] , MCH (RBC) [Entitic mass] 31.9 pg Normal 24.7-34.3 [facility] Comment on above: Performed By: #### P HOS, [id number], CMP, CBC, [id number], FE PRO, MG #### [address] #### VITB1 #### [facility] , MCV (RBC) [Entitic vol] 95.3 fL Normal 80-[address] [facility] Comment on above: Performed By: #### P HOS, [id number], CMP, CBC, [id number], FE PRO, MG #### [address] #### VITB1 #### [facility] , Mean Corpuscular HGB Conc 33.5 g/dL Normal 32.0-35.0 [facility] Comment on above: Performed By: #### P HOS, [id number], CMP, CBC, [id number], FE PRO, MG #### [address] #### VITB1 #### [facility] , Monocytes (Bld) [#/Vol] 0.3 10*3/uL Normal 0.0-0.8 [facility] Comment on above: Performed By: #### P HOS, [id number], CMP, CBC, [id number], FE PRO, MG #### [address] #### VITB1 #### [facility] , Monocytes/100 WBC (Bld) 5.1 % Normal . [facility] Comment on above: Performed By: #### P HOS, [id number], CMP, CBC, [id number], FE PRO, MG #### [facility] [address] [place] [address] #### VITB1 #### [facility] , Neutrophils (Bld) [#/Vol] 3.6 10*3/uL Normal 1.8-7.7 [facility] Comment on above: Performed By: #### P HOS, [id number], CMP, CBC, [id number], FE PRO, MG #### [facility] [address] [place] [address] #### VITB1 #### [facility] , Neutrophils/100 WBC (Bld) 52.7 % Normal . [facility] Comment on above: Performed By: #### P HOS, [id number], CMP, CBC, [id number], FE PRO, MG #### [facility] [address] [place] [address] #### VITB1 #### [facility] , NRBC% 0.0 /100{WBC} Normal 0-0.5 [facility] Comment on above: Performed By: #### P HOS, [id number], CMP, CBC, [id number], FE PRO, MG #### [facility] [address] [place] [address] #### VITB1 #### [facility] , Platelet mean volume (Bld) [Entitic vol] 9.8 fL Normal 6.3-10.7 [facility] Comment on above: Performed By: #### P HOS, [id number], CMP, CBC, [id number], FE PRO, MG #### [facility] [address] [place] [address] [place] #### VITB1 #### [facility] , Platelets (Bld) [#/Vol] 226 10*3/uL Normal 150-450 [facility] Comment on above: Performed By: #### P HOS, [id number], CMP, CBC, [id number], FE PRO, MG #### [facility] [address] [place] [address] #### VITB1 #### [facility] , RBC (Bld) [#/Vol] 4.11 10*6/uL Normal 3.60-5.00 [facility] Comment on above: Performed By: #### P HOS, [id number], CMP, CBC, [id number], FE PRO, MG #### [facility] [address] [place] [address] #### VITB1 #### [facility] , WBC (Bld) [#/Vol] 6.8 10*3/uL Normal 3.8-11.6 [facility] Comment on above: Performed By: #### P HOS, [id number], CMP, CBC, [id number], FE PRO, MG #### [facility] [address] [place] [address] #### VITB1 #### [facility] , Comprehensive Metabolic Pane nicole 10-11-2022 Albumin [Mass/Vol] 4.0 g/dL Normal 3.2-5.5 [facility] Comment on above: Performed By: #### P HOS, [id number], CMP, CBC, [id number], FE PRO, MG #### [facility] [address] [place] [address] [place] #### VITB1 #### [facility] , Albumin/Globulin [Mass ratio] 1.4 {ratio} Normal [facility] Comment on above: Performed By: #### P HOS, [id number], CMP, CBC, [id number], FE PRO, MG #### [facility] [address] [place] [address] #### VITB1 #### [facility] , ALP [Catalytic activity/Vol] 36 U/L Normal 32-92 [facility] Comment on above: Performed By: #### P HOS, [id number], CMP, CBC, [id number], FE PRO, MG #### [facility] [address] [place] [address] [place] #### VITB1 #### [facility] , ALT [Catalytic activity/Vol] 12 U/L Normal 10-60 [facility] Comment on above: Performed By: #### P HOS, [id number], CMP, CBC, [id number], FE PRO, MG #### [facility] [address] [place] [address] #### VITB1 #### [facility] , Anion gap [Moles/Vol] 11.6 mmol/L Normal 6.0-15.0 [facility] Comment on above: Performed By: #### P HOS, [id number], CMP, CBC, [id number], FE PRO, MG #### [facility] [address] [place] [address] #### VITB1 #### [facility] , AST [Catalytic activity/Vol] 11 U/L Normal 10-42 [facility] Comment on above: Performed By: #### P HOS, [id number], CMP, CBC, [id number], FE PRO, MG #### [facility] [address] [place] [address] [place] #### VITB1 #### [facility] , Bilirubin [Mass/Vol] 0.3 mg/dL Normal 0.3-1.2 [facility] Comment on above: Performed By: #### P HOS, [id number], CMP, CBC, [id number], FE PRO, MG #### [facility] [address] [place] [address] [place] #### VITB1 #### [facility] , Calcium [Mass/Vol] 9.3 mg/dL Normal 8.2-10.2 [facility] Comment on above: Performed By: #### P HOS, [id number], CMP, CBC, [id number], FE PRO, MG #### [facility] [address] [place] [address] #### VITB1 #### [facility] , Chloride [Moles/Vol] 103 mmol/L Normal 95-114 [facility] Comment on above: Performed By: #### P HOS, [id number], CMP, CBC, [id number], FE PRO, MG #### [facility] [address] [place] [address] #### VITB1 #### [facility] , CO2 [Moles/Vol] 26.4 mmol/L Normal 22.0-30.0 [facility] Comment on above: Performed By: #### P HOS, [id number], CMP, CBC, [id number], FE PRO, MG #### [facility] [address] [place] [address] [place] #### VITB1 #### [facility] , Creatinine [Mass/Vol] 0.70 mg/dL Normal 0.44-1.03 [facility] Comment on above: Performed By: #### P HOS, [id number], CMP, CBC, [id number], FE PRO, MG #### [facility] [address] [place] [address] [place] #### VITB1 #### [facility] , Estimated GFR ( Christiano > 60 Normal [facility] Comment on above: Result Comment: GFR estimated reference range: According to KDOQI guidelines, <60 ml/min/1.73m2 is sufficient to diagnose a patient with chronic kidney disease. Performed By: #### P HOS, [id number], CMP, CBC, [id number], FE PRO, MG #### [facility] [address] [place] [address] [place] #### VITB1 #### [facility] , Estimated GFR (Non- Am > 60 Normal [facility] Comment on above: Performed By: #### P HOS, [id number], CMP, CBC, [id number], FE PRO, MG #### [facility] [address] [place] [address] [place] #### VITB1 #### [facility] , Globulin (S) [Mass/Vol] 2.8 g/dL Normal [facility] Comment on above: Performed By: #### P HOS, [id number], CMP, CBC, [id number], FE PRO, MG #### [facility] [address] [place] [address] #### VITB1 #### [facility] , Glucose [Mass/Vol] 85 mg/dL Normal 70-100 [facility] Comment on above: Result Comment: [facility] Glucose Reference Range is dependent on time and content of last meal. Glucose of more than 200 mg/dL in a nonstressed, ambulatory subject supports the diagnosis of Diabetes Mellitus. ADA recommended reference range Performed By: #### P HOS, [id number], CMP, CBC, [id number], FE PRO, MG #### [facility] [address] [place] [address] [place] #### VITB1 #### [facility] , Potassium [Moles/Vol] 4.0 mmol/L Normal 3.5-5.1 [facility] Comment on above: Performed By: #### P HOS, [id number], CMP, CBC, [id number], FE PRO, MG #### [facility] [address] [place] [address] [place] #### VITB1 #### [facility] , Protein [Mass/Vol] 6.8 g/dL Normal 6.1-7.9 [facility] Comment on above: Performed By: #### P HOS, [id number], CMP, CBC, [id number], FE PRO, MG #### [facility] [address] [place] [address] [place] #### VITB1 #### [facility] , Sodium [Moles/Vol] 137 mmol/L Normal 136-146 [facility] Comment on above: Performed By: #### P HOS, [id number], CMP, CBC, [id number], FE PRO, MG #### [facility] [address] [place] [address] [place] #### VITB1 #### [facility] , Urea nitrogen [Mass/Vol] 11 mg/dL Normal 9-23 [facility] Comment on above: Performed By: #### P HOS, [id number], CMP, CBC, [id number], FE PRO, MG #### [facility] [address] [place] [address] [place] #### VITB1 #### [facility] , Creatinine and Glomerular fi ltration rate.predicted panel (S/P/Bld)Ordered By: Reena Breaux on 10-11-2022 Creatinine [Mass/Vol] 0.70 mg/dL 0.44-1.03 [facility] Eosinophils Auto (Bld) [#/Vo l]Ordered By: Reena Breaux on 10-11-2022 Eosinophils (Bld) [#/Vol] 0.1 10*3/uL 0.0-0.45 [facility] Eosinophils/100 WBC Auto (Bl d)Ordered By: Reena Breaux on 10-11-2022 Eosinophils/100 WBC (Bld) 1.7 % . [facility] Erythrocyte distribution wid th Auto (RBC) [Ratio]Ordered By: Reena Breaux on 10-11-2022 Erythrocyte distribution width (RBC) [Ratio] 12.9 % 11.9-15.3 [facility] Estimated glomerular filtrat ion rate (GFR) non- AmericanOrdered By: Reena Breaux on 10-11-2022 GFR/1.73 sq M.predicted among non-blacks MDRD (S/P/Bld) [Vol rate/Area] > 60 mL/Min [facility] FE PROon 10-11-2022 % Iron Saturation 24.0 % Normal 20-50 [facility] Comment on above: Performed By: #### P HOS, [id number], CMP, CBC, [id number], FE PRO, MG #### [facility] [address] [place] [address] [place] #### VITB1 #### [facility] , Ferritin [Mass/Vol] 29.2 ng/mL Normal 11-306.8 [facility] Comment on above: Performed By: #### P HOS, [id number], CMP, CBC, [id number], FE PRO, MG #### [facility] [address] [place] [address] #### VITB1 #### [facility] , Iron [Mass/Vol] 69 ug/dL Normal 40-150 [facility] Comment on above: Performed By: #### P HOS, [id number], CMP, CBC, [id number], FE PRO, MG #### [facility] [address] [place] [address] [place] #### VITB1 #### [facility] , Total Iron Binding Capacity 288 ug/dL Normal 255-450 [facility] Comment on above: Performed By: #### P HOS, [id number], CMP, CBC, [id number], FE PRO, MG #### [facility] [address] [place] [address] [place] #### VITB1 #### [facility] , Transferrin [Mass/Vol] 206 mg/dL Normal 180-380 [facility] Comment on above: Performed By: #### P HOS, [id number], CMP, CBC, [id number], FE PRO, MG #### [facility] [address] [place] [address] [place] #### VITB1 #### [facility] , Ferritin [Mass/volume] in Se rum or PlasmaOrdered By: Reena Breaux on 10-11-2022 Ferritin [Mass/Vol] 29.2 ng/mL 11-306.8 [facility] Folate [Mass/volume] in Seru m or PlasmaOrdered By: Reena Breaux on 10-11-2022 Folate [Mass/Vol] 22.2 ng/mL >5.9 [facility] Comment on above: Folate reference ran ge: >5.9 ng/mlThe WHO technical consultation on folate and vitamin [id number] has determined that folate concentrations lessthan 4 ng/ml are considered deficient. Globulin Calc (S) [Mass/Vol] Ordered By: Reena Breaux on 10-11-2022 Globulin (S) [Mass/Vol] 2.8 g/dL F [facility] Hematocrit Auto (Bld) [Volum e fraction]Ordered By: Reena Breaux on 10-11-2022 Hematocrit (Bld) [Volume fraction] 39.1 % 34.0-46.4 [facility] Hemoglobin [Mass/volume] in BloodOrdered By: Reena Breaux on 10-11-2022 Hemoglobin (Bld) [Mass/Vol] 13.1 g/dL 11.8-15.4 [facility] Iron [Mass/volume] in Serum or PlasmaOrdered By: Reena Breaux on 10-11-2022 Iron [Mass/Vol] 69 ug/dL 40-150 [facility] Iron binding capacity [Mass/ volume] in Serum or PlasmaOrdered By: Reena Breaux on 10-11-2022 Iron binding capacity [Mass/Vol] 288 ug/dL 255-450 [facility] Iron saturation [Mass Fracti on] in Serum or PlasmaOrdered By: Reena Breaux on 10-11-2022 Iron saturation [Mass fraction] 24.0 % 20-50 [facility] Laboratory - Chemistry and C hemistry - challengeOrdered By: Reena Breaux on 10-11-2022 Cobalamin (Vitamin B12) [Mass/Vol] 1437 pg/mL 180-914 [facility] Magnesium [Mass/Vol] 2.1 mg/dL 1.6-2.6 [facility] Leukocytes [#/volume] correc jakob for nucleated erythrocytes in Blood by Automated counOrdered By: Reena Breaux on 10-11-2022 WBC corrected for nucl RBC Auto (Bld) [#/Vol] 6.8 10*3/uL 3.8-11.6 [facility] Lymphocytes Auto (Bld) [#/Vo l]Ordered By: Reena Breaux on 10-11-2022 Lymphocytes (Bld) [#/Vol] 2.7 10*3/uL 1.00-4.8 [facility] Lymphocytes/100 WBC Auto (Bl d)Ordered By: Reena Breaux on 10-11-2022 Lymphocytes/100 WBC (Bld) 39.8 % . [facility] MCH Auto (RBC) [Entitic mass ]Ordered By: Reena Breaux on 10-11-2022 MCH (RBC) [Entitic mass] 31.9 pg 24.7-34.3 [facility] MCHC Auto (RBC) [Mass/Vol]Or dered By: Reena Breaux on 10-11-2022 MCHC (RBC) [Mass/Vol] 33.5 g/dL 32.0-35.0 [facility] MCV Auto (RBC) [Entitic vol] Ordered By: Reena Breaux on 10-11-2022 MCV (RBC) [Entitic vol] 95.3 fL 80-[address] [facility] Magnesiumon 10-11-2022 Magnesium [Mass/Vol] 2.1 mg/dL Normal 1.6-2.6 [facility] Comment on above: Performed By: #### P HOS, [id number], CMP, CBC, [id number], FE PRO, MG #### [facility] [address] [place] [address] #### VITB1 #### [facility] , Monocytes Auto (Bld) [#/Vol] Ordered By: Reena Breaux on 10-11-2022 Monocytes (Bld) [#/Vol] 0.3 10*3/uL 0.0-0.8 [facility] Monocytes/100 WBC Auto (Bld) Ordered By: Reena Breaux on 10-11-2022 Monocytes/100 WBC (Bld) 5.1 % . F [facility] Neutrophils Auto (Bld) [#/Vo l]Ordered By: Reena Breaux on 10-11-2022 Neutrophils (Bld) [#/Vol] 3.6 10*3/uL 1.8-7.7 [facility] Neutrophils/100 WBC Auto (Bl d)Ordered By: Reena Breaux on 10-11-2022 Neutrophils/100 WBC (Bld) 52.7 % . [facility] No Panel InformationOrdered By: Reena Breaux on 10-11-2022 25-Hydroxy Vitamin D Total 33.9 ng/mL 30-100 [facility] Comment on above: VITAMIN D STATUS 25( [place])VITAMIN D RANGE (ng/mL) Deficient <20 Insufficient 20 to <30Sufficient 30 to 100Reference: Kofi MF,Mauricio NC, Mayank CUELLAR, et al. Evaluation,treatment, and prevention of vitamin D deficiency; an Endocrine Society clinical practice guideline. JCEM. 2010; 96(7):1911-30. Estimated GFR () > 60 mL/Min [facility] Comment on above: GFR estimated refere nce range: According to KDOQI guidelines, <60 ml/min/1.73m2 is sufficient to diagnose a patient with chronic kidney disease. Pharmacy Creatinine Clearance (Chem N/A [facility] Nucleated erythrocytes [Pres ence] in Blood by Automated countOrdered By: Reena Breaux on 10-11-2022 Nucleated RBC Auto Ql (Bld) 0.0 /100{WBC} 0-0.5 [facility] Phosphate [Mass/volume] in S negro or PlasmaOrdered By: Reena Breaux on 10-11-2022 Phosphate [Mass/Vol] 3.9 mg/dL 2.5-4.6 [facility] Phosphoruson 10-11-2022 Phosphate [Mass/Vol] 3.9 mg/dL Normal 2.5-4.6 [facility] Comment on above: Performed By: #### P HOS, [id number], CMP, CBC, [id number], FE PRO, MG #### [facility] [place] [id number] [facility] #### VITB1 #### [facility] , Platelet mean volume Auto (B ld) [Entitic vol]Ordered By: Reena Breaux on 10-11-2022 Platelet mean volume (Bld) [Entitic vol] 9.8 fL 6.3-10.7 [facility] Platelets Auto (Bld) [#/Vol] Ordered By: Reena Breaux on 10-11-2022 Platelets (Bld) [#/Vol] 226 10*3/uL 150-450 [facility] Protein [Mass/volume] in Ser um or PlasmaOrdered By: Reena Breaux on 10-11-2022 Protein [Mass/Vol] 6.8 g/dL 6.1-7.9 [facility] RBC Auto (Bld) [#/Vol]Ordere d By: Reena Breaux on 10-11-2022 RBC (Bld) [#/Vol] 4.11 10*6/uL 3.60-5.00 [facility] Serum or plasma alanine doss otransferase measurement without P-5'-P (enzymatic activiOrdered By: Reena Breaux on 10-11-2022 ALT No additional P-5'-P [Catalytic activity/Vol] 12 U/L 10-60 [facility] Serum or plasma albumin/glob ulin mass ratioOrdered By: Reena Breaux on 10-11-2022 Albumin/Globulin [Mass ratio] 1.4 {ratio} [facility] Serum or plasma alkaline denis sphatase measurement (enzymatic activity/volume)Ordered By: Reena Breaux on 10-11-2022 ALP [Catalytic activity/Vol] 36 U/L 32-92 [facility] Serum or plasma anion gap de terminationOrdered By: Reena Breaux on 10-11-2022 Anion gap [Moles/Vol] 11.6 mmol/L 6.0-15.0 [facility] Serum or plasma aspartate am inotransferase measurement (enzymatic activity/volume)Ordered By: Reena Breaux on 10-11-2022 AST [Catalytic activity/Vol] 11 U/L 10-42 [facility] Serum or plasma calcium gloria urement (mass/volume)Ordered By: Reena Breaux on 10-11-2022 Calcium [Mass/Vol] 9.3 mg/dL 8.2-10.2 [facility] Serum or plasma chloride gina surement (moles/volume)Ordered By: Reena Breaux on 10-11-2022 Chloride [Moles/Vol] 103 mmol/L 95-114 [facility] Serum or plasma glucose gloria urement (mass/volume)Ordered By: Reena Breaux on 10-11-2022 Glucose [Mass/Vol] 85 mg/dL 70-100 [facility] Comment on above: ADA recommended refe rence rangeRandom Glucose Reference Range is dependent on time and content of last meal. Glucose of more than 200 mg/dL in a nonstressed, ambulatory subject supports the diagnosis of Diabetes Mellitus. Serum or plasma potassium me asurement (moles/volume)Ordered By: Reena Breaux on 10-11-2022 Potassium [Moles/Vol] 4.0 mmol/L 3.5-5.1 [facility] Serum or plasma sodium measu rement (moles/volume)Ordered By: Reena Breaux on 10-11-2022 Sodium [Moles/Vol] 137 mmol/L 136-146 [facility] Serum or plasma total biliru bin measurement (mass/volume)Ordered By: Reena Breaux on 10-11-2022 Bilirubin [Mass/Vol] 0.3 mg/dL 0.3-1.2 [facility] Serum or plasma total carbon dioxide measurement (moles/volume)Ordered By: Reena Braeux on 10-11-2022 CO2 [Moles/Vol] 26.4 mmol/L 22.0-30.0 [facility] Serum or plasma urea nitroge n measurement (mass/volume)Ordered By: Reena Breaux on 10-11-2022 Urea nitrogen [Mass/Vol] 11 mg/dL 9-23 [facility] Vit. B12/Folate Profileon Cobalamin (Vitamin B12) [Mass/Vol] 1437 pg/mL High 180-914 [facility] Comment on above: Performed By: #### P HOS, [id number], CMP, CBC, [id number], FE PRO, MG #### [facility] [address] [place] [address] [place] #### VITB1 #### [facility] , Folate 22.2 ng/mL Normal >5.9 [facility] Comment on above: Result Comment: Tara te reference range: >5.9 ng/ml The WHO technical consultation on folate and vitamin b12 deficiencies has determined that folate concentrations less than 4 ng/ml are considered deficient. Performed By: #### P HOS, [id number], CMP, CBC, [id number], FE PRO, MG #### [facility] [address] [place] [address] [place] #### VITB1 #### [facility] , Vitamin B1 (Thiamine) Bloodo n 10-11-2022 Vitamin B1 (Thiamine) Blood 153.8 Normal 66.5-200.0 [facility] Comment on above: Result Comment: This test was developed and its performance characteristics determined by [employer]. It has not been cleared or approved by the Food and Drug Administration. Performed at: [address] [id number] Technical Operations Specialist: Chary Soler MD, Phone: [phone] PERFORMED BY: [place] [address] PATHOLOGIST SUPERVISOR CLAM BED AMANDA CALLE M.D. Performed By: #### P HOS, [id number], CMP, CBC, [id number], FE PRO, MG #### [address] #### VITB1 #### [facility] , Vitamin D 25 Hydroxy Totalon 10-11-2022 Vitamin D 25 Hydroxy Total 33.9 ng/mL Normal 30-100 [facility] Comment on above: Result Comment: JONAH MIN D STATUS 25(OH)VITAMIN D RANGE (ng/mL) Deficient <20 Insufficient 20 to <30 Sufficient 30 to 100 Reference: Kofi MF,Mauricio NC, Mayank CUELLAR, et al. Evaluation,treatment, and prevention of vitamin D deficiency; an Endocrine Society clinical practice guideline. JCEM. 2010; 96(7):1911-30. PERFORMED BY: [address] [place] [address] PATHOLOGIST SUPERVISOR CLAM BED AMANDA CALLE M.D. Performed By: #### P HOS, [id number], CMP, CBC, [id number], FE PRO, MG #### [address] #### VITB1 #### [facility] , WBC Auto (Bld) [#/Vol]Ordere d By: Reena Breaux on 10-11-2022 WBC (Bld) [#/Vol] 6.8 10*3/uL 3.8-11.6 [facility] Complete Blood Count Auto Di ffon 06-10-2022 Basophils (Bld) [#/Vol] 0.0 10*3/uL Normal 0.0-0.2 [facility] Comment on above: Order Comment: NOT F ASTING. JKW Result Comment: PERF ORMED BY: [place] [address] PATHOLOGIST SUPERVISOR CLAM BED AMANDA CALLE M.D. Performed By: #### V ITB1 #### [facility] , #### [id number], CMP, MG, FE PRO, PHOS, [id number], CBC #### [address] Basophils/100 WBC (Bld) 0.7 % Normal . [facility] Comment on above: Order Comment: NOT F ASTING. JKW Performed By: #### V ITB1 #### [facility] , #### [id number], CMP, MG, FE PRO, PHOS, [id number], CBC #### [address] Eosinophils (Bld) [#/Vol] 0.2 10*3/uL Normal 0.0-0.45 [facility] Comment on above: Order Comment: NOT F ASTING. JKW Performed By: #### V ITB1 #### [facility] , #### [id number], CMP, MG, FE PRO, PHOS, [id number], CBC #### [address] Eosinophils/100 WBC (Bld) 2.6 % Normal . [facility] Comment on above: Order Comment: NOT F ASTING. JKW Performed By: #### V ITB1 #### [facility] , #### [id number], CMP, MG, FE PRO, PHOS, [id number], CBC #### [address] Erythrocyte distribution width (RBC) [Ratio] 13.9 % Normal 11.9-15.3 [facility] Comment on above: Order Comment: NOT F ASTING. JKW Performed By: #### V ITB1 #### [facility] , #### [id number], CMP, MG, FE PRO, PHOS, [id number], CBC #### [address] Hematocrit (Bld) [Volume fraction] 39.1 % Normal 34.0-46.4 [facility] Comment on above: Order Comment: NOT F ASTING. JKW Performed By: #### V ITB1 #### [facility] , #### [id number], CMP, MG, FE PRO, PHOS, [id number], CBC #### [address] Hemoglobin (Bld) [Mass/Vol] 12.8 g/dL Normal 11.8-15.4 [facility] Comment on above: Order Comment: NOT F ASTING. JKW Performed By: #### V ITB1 #### [facility] , #### [id number], CMP, MG, FE PRO, PHOS, [id number], CBC #### [address] Lymphocytes (Bld) [#/Vol] 1.5 10*3/uL Normal 1.00-4.8 [facility] Comment on above: Order Comment: NOT F ASTING. JKW Performed By: #### V ITB1 #### [facility] , #### [id number], CMP, MG, FE PRO, PHOS, [id number], CBC #### [address] Lymphocytes/100 WBC (Bld) 24.6 % Normal . [facility] Comment on above: Order Comment: NOT F ASTING. JKW Performed By: #### V ITB1 #### [facility] , #### [id number], CMP, MG, FE PRO, PHOS, [id number], CBC #### [address] MCH (RBC) [Entitic mass] 31.8 pg Normal 24.7-34.3 [facility] Comment on above: Order Comment: NOT F ASTING. JKW Performed By: #### V ITB1 #### [facility] , #### [id number], CMP, MG, FE PRO, PHOS, [id number], CBC #### [address] MCV (RBC) [Entitic vol] 97.2 fL Normal 80-[address] [facility] Comment on above: Order Comment: NOT F ASTING. JKW Performed By: #### V ITB1 #### [facility] , #### [id number], CMP, MG, FE PRO, PHOS, [id number], CBC #### [address] Mean Corpuscular HGB Conc 32.7 g/dL Normal 32.0-35.0 [facility] Comment on above: Order Comment: NOT F ASTING. JKW Performed By: #### V ITB1 #### [facility] , #### [id number], CMP, MG, FE PRO, PHOS, [id number], CBC #### [facility] [address] [place] [address] [place] Monocytes (Bld) [#/Vol] 0.4 10*3/uL Normal 0.0-0.8 [facility] Comment on above: Order Comment: NOT F ASTING. JKW Performed By: #### V ITB1 #### [facility] , #### [id number], CMP, MG, FE PRO, PHOS, [id number], CBC #### [facility] [address] [place] [address] [place] Monocytes/100 WBC (Bld) 7.3 % Normal . [facility] Comment on above: Order Comment: NOT F ASTING. JKW Performed By: #### V ITB1 #### [facility] , #### [id number], CMP, MG, FE PRO, PHOS, [id number], CBC #### [facility] [address] [place] [address] [place] Neutrophils (Bld) [#/Vol] 3.8 10*3/uL Normal 1.8-7.7 [facility] Comment on above: Order Comment: NOT F ASTING. JKW Performed By: #### V ITB1 #### [facility] , #### [id number], CMP, MG, FE PRO, PHOS, [id number], CBC #### [facility] [address] [place] [address] [place] Neutrophils/100 WBC (Bld) 64.8 % Normal . [facility] Comment on above: Order Comment: NOT F ASTING. JKW Performed By: #### V ITB1 #### [facility] , #### [id number], CMP, MG, FE PRO, PHOS, [id number], CBC #### [address] Nucleated RBC/100 WBC (Bld) [Ratio] 0.1 % Normal 0-0.5 [facility] Comment on above: Order Comment: NOT F ASTING. JKW Performed By: #### V ITB1 #### [facility] , #### [id number], CMP, MG, FE PRO, PHOS, [id number], CBC #### [address] Platelet mean volume (Bld) [Entitic vol] 10.6 fL Normal 6.3-10.7 [facility] Comment on above: Order Comment: NOT F ASTING. JKW Performed By: #### V ITB1 #### [facility] , #### [id number], CMP, MG, FE PRO, PHOS, [id number], CBC #### [address] Platelets (Bld) [#/Vol] 237 10*3/uL Normal 150-450 [facility] Comment on above: Order Comment: NOT F ASTING. JKW Performed By: #### V ITB1 #### [facility] , #### [id number], CMP, MG, FE PRO, PHOS, [id number], CBC #### [address] RBC (Bld) [#/Vol] 4.02 10*6/uL Normal 3.60-5.00 [facility] Comment on above: Order Comment: NOT F ASTING. JKW Performed By: #### V ITB1 #### [facility] , #### [id number], CMP, MG, FE PRO, PHOS, [id number], CBC #### [address] WBC (Bld) [#/Vol] 5.9 10*3/uL Normal 4.5-11.0 [facility] Comment on above: Order Comment: NOT F ASTING. JKW Performed By: #### V ITB1 #### [facility] , #### [id number], CMP, MG, FE PRO, PHOS, [id number], CBC #### [address] Comprehensive Metabolic Pane nicole 06-10-2022 Albumin [Mass/Vol] 3.9 g/dL Normal 3.2-5.5 [facility] Comment on above: Order Comment: NOT F ASTING. JKW Performed By: #### V ITB1 #### [facility] , #### [id number], CMP, MG, FE PRO, PHOS, [id number], CBC #### [address] Albumin/Globulin [Mass ratio] 1.4 {ratio} Normal [facility] Comment on above: Order Comment: NOT F ASTING. JKW Performed By: #### V ITB1 #### [facility] , #### [id number], CMP, MG, FE PRO, PHOS, [id number], CBC #### [address] ALP [Catalytic activity/Vol] 43 U/L Normal 32-92 [facility] Comment on above: Order Comment: NOT F ASTING. JKW Performed By: #### V ITB1 #### [facility] , #### [id number], CMP, MG, FE PRO, PHOS, [id number], CBC #### [facility] [address] [place] [address] ALT [Catalytic activity/Vol] 12 U/L Normal 10-60 [facility] Comment on above: Order Comment: NOT F ASTING. JKW Performed By: #### V ITB1 #### [facility] , #### [id number], CMP, MG, FE PRO, PHOS, [id number], CBC #### [address] Anion gap [Moles/Vol] 11.0 mmol/L Normal 6.0-15.0 [facility] Comment on above: Order Comment: NOT F ASTING. JKW Performed By: #### V ITB1 #### [facility] , #### [id number], CMP, MG, FE PRO, PHOS, [id number], CBC #### [address] AST [Catalytic activity/Vol] 10 U/L Normal 10-42 [facility] Comment on above: Order Comment: NOT F ASTING. JKW Performed By: #### V ITB1 #### [facility] , #### [id number], CMP, MG, FE PRO, PHOS, [id number], CBC #### [address] Bilirubin [Mass/Vol] 0.7 mg/dL Normal 0.3-1.2 [facility] Comment on above: Order Comment: NOT F ASTING. JKW Performed By: #### V ITB1 #### [facility] , #### [id number], CMP, MG, FE PRO, PHOS, [id number], CBC #### [address] Calcium [Mass/Vol] 9.8 mg/dL Normal 8.2-10.2 [facility] Comment on above: Order Comment: NOT F ASTING. JKW Performed By: #### V ITB1 #### [facility] , #### [id number], CMP, MG, FE PRO, PHOS, [id number], CBC #### [facility] [address] [place] [address] Chloride [Moles/Vol] 104 mmol/L Normal 95-114 [facility] Comment on above: Order Comment: NOT F ASTING. JKW Performed By: #### V ITB1 #### [facility] , #### [id number], CMP, MG, FE PRO, PHOS, [id number], CBC #### [facility] [address] CO2 [Moles/Vol] 25.3 mmol/L Normal 22.0-30.0 [facility] Comment on above: Order Comment: NOT F ASTING. JKW Performed By: #### V ITB1 #### [facility] , #### [id number], CMP, MG, FE PRO, PHOS, [id number], CBC #### [facility] [address] [place] [address] Creatinine [Mass/Vol] 0.56 mg/dL Normal 0.44-1.03 [facility] Comment on above: Order Comment: NOT F ASTING. JKW Performed By: #### V ITB1 #### [facility] , #### [id number], CMP, MG, FE PRO, PHOS, [id number], CBC #### [facility] [address] [place] [address] Estimated GFR ( Christiano > 60 [facility] [facility] Comment on above: Order Comment: NOT F ASTING. JKW Result Comment: GFR estimated reference range: According to KDOQI guidelines, <60 ml/min/1.73m2 is sufficient to diagnose a patient with chronic kidney disease. Performed By: #### V ITB1 #### [facility] , #### [id number], CMP, MG, FE PRO, PHOS, [id number], CBC #### [facility] [address] [place] [address] Estimated GFR (Non- Am > 60 [facility] Comment on above: Order Comment: NOT F ASTING. JKW Performed By: #### V ITB1 #### [facility] , #### [id number], CMP, MG, FE PRO, PHOS, [id number], CBC #### [facility] [address] Globulin (S) [Mass/Vol] 2.8 g/dL Normal F [facility] Comment on above: Order Comment: NOT F ASTING. JKW Performed By: #### V ITB1 #### [facility] , #### [id number], CMP, MG, FE PRO, PHOS, [id number], CBC #### [address] Glucose [Mass/Vol] 95 mg/dL Normal 70-100 [facility] Comment on above: Order Comment: NOT F ASTING. JKW Result Comment: [place] Glucose Reference Range is dependent on time and content of last meal. Glucose of more than 200 mg/dL in a nonstressed, ambulatory subject supports the diagnosis of Diabetes Mellitus. ADA recommended reference range Performed By: #### V ITB1 #### [facility] , #### [id number], CMP, MG, FE PRO, PHOS, [id number], CBC #### [address] Potassium [Moles/Vol] 4.3 mmol/L Normal 3.5-5.1 [facility] Comment on above: Order Comment: NOT F ASTING. JKW Performed By: #### V ITB1 #### [facility] , #### [id number], CMP, MG, FE PRO, PHOS, [id number], CBC #### [facility] [address] [place] [address] Protein [Mass/Vol] 6.7 g/dL Normal 6.1-7.9 [facility] Comment on above: Order Comment: NOT F ASTING. JKW Performed By: #### V ITB1 #### [facility] , #### [id number], CMP, MG, FE PRO, PHOS, [id number], CBC #### [address] Sodium [Moles/Vol] 136 mmol/L Normal 136-146 [facility] Comment on above: Order Comment: NOT F ASTING. JKW Performed By: #### V ITB1 #### [facility] , #### [id number], CMP, MG, FE PRO, PHOS, [id number], CBC #### [address] Urea nitrogen [Mass/Vol] 7 mg/dL Low 9-23 [facility] Comment on above: Order Comment: NOT F ASTING. JKW Performed By: #### V ITB1 #### [facility] , #### [id number], CMP, MG, FE PRO, PHOS, [id number], CBC #### [address] FE PROon 10-20-202 % Iron Saturation 19.0 % Low 20-50 [facility] Comment on above: Order Comment: NOT F ASTING. JKW Performed By: #### P HOS, [id number], CMP, CBC, [id number], FE PRO, MG #### [facility] [address] [place] [address] #### VITB1 #### [facility] , Ferritin [Mass/Vol] 46.7 ng/mL Normal 11-306.8 [facility] Comment on above: Order Comment: NOT F ASTING. JKW Performed By: #### P HOS, [id number], CMP, CBC, [id number], FE PRO, MG #### [facility] [address] [place] [address] #### VITB1 #### [facility] , Iron [Mass/Vol] 50 ug/dL Normal 40-150 [facility] Comment on above: Order Comment: NOT F ASTING. JKW Performed By: #### P HOS, [id number], CMP, CBC, [id number], FE PRO, MG #### [facility] [address] [place] [address] #### VITB1 #### [facility] , Total Iron Binding Capacity 260 ug/dL Normal 255-450 [facility] Comment on above: Order Comment: NOT F ASTING. JKW Performed By: #### P HOS, [id number], CMP, CBC, [id number], FE PRO, MG #### [facility] [address] [place] [address] #### VITB1 #### [facility] , Transferrin [Mass/Vol] 186 mg/dL Normal 180-380 [facility] Comment on above: Order Comment: NOT F ASTING. JKW Performed By: #### P HOS, [id number], CMP, CBC, [id number], FE PRO, MG #### [facility] [address] [place] [address] [place] #### VITB1 #### [facility] , Magnesiumon 06-10-2022 Magnesium [Mass/Vol] 2.0 mg/dL Normal 1.6-2.6 [facility] Comment on above: Order Comment: NOT F ASTING. JKW Performed By: #### P HOS, [id number], CMP, CBC, [id number], FE PRO, MG #### [facility] [address] [place] [address] [place] #### VITB1 #### [facility] , Phosphoruson 06-10-2022 Phosphate [Mass/Vol] 4.1 mg/dL Normal 2.5-4.6 [facility] Comment on above: Order Comment: NOT F ASTING. JKW Performed By: #### P HOS, [id number], CMP, CBC, [id number], FE PRO, MG #### [facility] [address] [place] [address] [place] #### VITB1 #### [facility] , Vit. B12/Folate Profileon Cobalamin (Vitamin B12) [Mass/Vol] 575 pg/mL Normal 180-914 [facility] Comment on above: Order Comment: NOT F ASTING. JKW Performed By: #### P HOS, [id number], CMP, CBC, [id number], FE PRO, MG #### [facility] [address] [place] [address] [place] #### VITB1 #### [facility] , Folate 14.3 ng/mL Normal >5.9 [facility] Comment on above: Order Comment: NOT F ASTING. JKW Result Comment: Tara te reference range: >5.9 ng/ml The WHO technical consultation on folate and vitamin b12 deficiencies has determined that folate concentrations less than 4 ng/ml are considered deficient. Performed By: #### P HOS, [id number], CMP, CBC, [id number], FE PRO, MG #### [facility] [address] [place] [address] #### VITB1 #### [facility] , Vitamin B1 (Thiamine) Bloodo n 06-10-2022 Vitamin B1 (Thiamine) Blood 143.0 Normal 66.5-200.0 [facility] Comment on above: Order Comment: NOT F ASTING. JKW Result Comment: This test was developed and its performance characteristics determined by [facility]. It has not been cleared or approved by the Food and Drug Administration. Performed at: [address] [id number] Technical Operations Specialist: Chary Soler MD, Phone: [phone] PERFORMED BY: [place] [address] PATHOLOGIST SUPERVISOR CLAM BED AMANDA CALLE M.D. Performed By: #### P HOS, [id number], CMP, CBC, [id number], FE PRO, MG #### [facility] [address] [place] [address] #### VITB1 #### [facility] , Vitamin D 25 Hydroxy Totalon 06-10-2022 Vitamin D 25 Hydroxy Total 27.8 ng/mL Low 30-100 [facility] Comment on above: Order Comment: NOT F ASTING. JKW Result Comment: JONAH MIN D STATUS 25(OH)VITAMIN D RANGE (ng/mL) Deficient <20 Insufficient 20 to <30 Sufficient 30 to 100 Reference: Kofi MF,Mauricio NC, Mayank CUELLAR, et al. Evaluation,treatment, and prevention of vitamin D deficiency; an Endocrine Society clinical practice guideline. JCEM. 2010; 96(7):1911-30. PERFORMED BY: [address] [place] [address] PATHOLOGIST SUPERVISOR CLAM BED AMANDA CALLE M.D. Performed By: #### P HOS, [id number], CMP, CBC, [id number], FE PRO, MG #### [address] #### VITB1 #### [facility] , HGB A1Con 01-15-2022 Average glucose Estimated from glycated hemoglobin (Bld) [Mass/Vol] 128 mg/dL Normal [facility] Comment on above: Order Comment: [facility] Type: BLOOD SPECIMEN Ordering Facility: [facility] Address: [address] [place] [address] Result Comment: eAG: (Estimated average glucose) is a calculated value from HgbA1c and is food service sales representatives of the average blood glucose level in the last 2-3 month period. Performed By: #### H BA1C #### [facility] CLIA [id number] [address] [place], [place] [address] [address] [place] HbA1c (Bld) [Mass fraction] 6.1 % High 4.3-5.6 [facility] Comment on above: Order Comment: Speci men Type: BLOOD SPECIMEN Ordering Facility: [facility] Address: [address] [place] [address] Result Comment: Amer ican Diabetes Association guidelines indicate that patients with HgbA1c in the range 5.7-6.4% are at increased risk for development of diabetes, and intervention by lifestyle modification may be beneficial. HgbA1c greater or equal to 6.5% is considered diagnostic of diabetes. Performed By: #### H BA1C #### [facility] CLIA [id number] [address] [facility] [address] [place] [address] [place] [facility] 01-15-2022 Potassium [Moles/Vol] 4.9 mmol/L Normal 3.7-5.1 [facility] Comment on above: Order Comment: Speci men Type: BLOOD SPECIMEN Ordering Facility: [facility] Address: [address] [place] [id number] Performed By: #### K 1 #### [facility] CLIA [id number] [address] [place] [address] [place] Potassium [Moles/Vol] 4.9 mmol/L 3.7 - 5.1 mmol/L [facility] Vital Signs Date Time Vital Sign Value Performing Clinician Facility 04-24-2025 11:50-0400 Body mass index (BMI) [Ratio] 37.22 kg/m2 Roscoe Joe DO Work Phone: [facility] 04-24-2025 11:50-0400 Body weight 95.31 kg Roscoe Joe DO Work Phone: [facility] 04-24-2025 11:50-0400 Diastolic blood pressure 74 mm[Hg] Orscoe Joe DO Work Phone: [facility] 04-24-2025 11:50-0400 Systolic blood pressure 116 mm[Hg] Roscoe Joe DO Work Phone: [facility] 04-10-2025 15:14-0400 Body mass index (BMI) [Ratio] 37.22 kg/m2 Roscoe Joe DO Work Phone: [facility] 04-10-2025 15:14-0400 Body weight 95.31 kg Roscoe Joe DO Work Phone: [facility] 04-10-2025 15:14-0400 Diastolic blood pressure 70 mm[Hg] Roscoe Joe DO Work Phone: [facility] 04-10-2025 15:14-0400 Systolic blood pressure 120 mm[Hg] Roscoe Joe DO Work Phone: [facility] 03-27-2025 14:01-0400 Body mass index (BMI) [Ratio] 36.28 kg/m2 Roscoe Joe DO Work Phone: [facility] 03-27-2025 14:01-0400 Body weight 92.9 kg Roscoe Joe DO Work Phone: [facility] 03-27-2025 14:01-0400 Diastolic blood pressure 72 mm[Hg] Roscoe Joe DO Work Phone: [facility] 03-27-2025 14:01-0400 Systolic blood pressure 116 mm[Hg] Roscoe Joe DO Work Phone: [facility] 03-13-2025 15:41-0400 Body mass index (BMI) [Ratio] 36.46 kg/m2 Rosy Oralia PA Work Phone: [facility] 03-13-2025 15:41-0400 Body weight 93.35 kg Rosy Cisco PA Work Phone: [facility] 03-13-2025 15:41-0400 Diastolic blood pressure 70 mm[Hg] Rosy Cisco PA Work Phone: [facility] 03-13-2025 15:41-0400 Systolic blood pressure 110 mm[Hg] Rosy Cisco PA Work Phone: [facility] 03-12-2025 13:35-0400 Body height 160 cm Daisha Lavoy PA-C Work Phone: [facility] 03-12-2025 13:35-0400 Body mass index (BMI) [Ratio] 36.38 kg/m2 Daisha Lavoy PA-C Work Phone: [facility] 03-12-2025 13:35-0400 Body weight 93.17 kg Daisha Lavoy PA-C Work Phone: [facility] 03-12-2025 13:35-0400 Diastolic blood pressure 57 mm[Hg] Daisha Lavoy PA-C Work Phone: [facility] 03-12-2025 13:35-0400 Heart rate 76 /min Daisha Lavoy PA-C Work Phone: [facility] 03-12-2025 13:35-0400 Systolic blood pressure 99 mm[Hg] Daisha Lavoy PA-C Work Phone: [facility] 02-27-2025 14:00-0400 Body mass index (BMI) [Ratio] 36.1 kg/m2 Roscoe Joe DO Work Phone: [facility] 02-27-2025 14:00-0400 Body weight 92.44 kg Roscoe Joe DO Work Phone: [facility] 02-27-2025 14:00-0400 Diastolic blood pressure 60 mm[Hg] Roscoe Joe DO Work Phone: [facility] 02-27-2025 14:00-0400 Systolic blood pressure 110 mm[Hg] Roscoe Joe DO Work Phone: [facility] 02-14-2025 15:17-0400 Body mass index (BMI) [Ratio] 36.21 kg/m2 Hien Giles RN Work Phone: [facility] 02-14-2025 15:17-0400 Body weight 92.72 kg Hien Giles RN Work Phone: [facility] 02-11-2025 11:36-0400 Body mass index (BMI) [Ratio] 35.87 kg/m2 Rosy Quiroz PA Work Phone: [facility] 02-11-2025 11:36-0400 Body weight 91.85 kg Rosy KRUGER Work Phone: [facility] 02-11-2025 11:36-0400 Diastolic blood pressure 60 mm[Hg] Rosy Quiroz PA Work Phone: [facility] 02-11-2025 11:36-0400 Systolic blood pressure 110 mm[Hg] Rosy Quiroz PA Work Phone: [facility] 02-07-2025 10:43-0400 Body height 160 cm Scanning External [facility] 01-10-2025 10:33-0400 Body mass index (BMI) [Ratio] 34.92 kg/m2 Roscoe Joe DO Work Phone: [facility] 01-10-2025 10:33-0400 Body weight 89.41 kg Roscoe Joe DO Work Phone: [facility] 01-10-2025 10:33-0400 Diastolic blood pressure 68 mm[Hg] Roscoe Joe DO Work Phone: [facility] 01-10-2025 10:33-0400 Systolic blood pressure 110 mm[Hg] Roscoe Joe DO Work Phone: [facility] 12-10-2024 11:23-0400 Body mass index (BMI) [Ratio] 33.66 kg/m2 Rosy Quiroz PA Work Phone: [facility] 12-10-2024 11:23-0400 Body weight 86.18 kg Rosy Quiroz PA Work Phone: [facility] 12-10-2024 11:23-0400 Diastolic blood pressure 70 mm[Hg] Rosy Quiroz PA Work Phone: [facility] 12-10-2024 11:23-0400 Systolic blood pressure 106 mm[Hg] Rosy Quiroz PA Work Phone: [facility] 11-08-2024 11:04-0400 Body mass index (BMI) [Ratio] 32.24 kg/m2 Roscoe Joe DO Work Phone: [facility] 11-08-2024 11:04-0400 Body weight 82.56 kg Roscoe Joe DO Work Phone: [facility] 11-08-2024 11:04-0400 Diastolic blood pressure 60 mm[Hg] Roscoe Joe DO Work Phone: [facility] 11-08-2024 11:04-0400 Systolic blood pressure 100 mm[Hg] Roscoe Joe DO Work Phone: [facility] 10-18-2024 13:54-0500 Body mass index (BMI) [Ratio] 31.38 kg/m2 [facility] Nurse [facility] 10-18-2024 13:54-0500 Body weight 80.34 kg [facility] Nurse [facility] 08-02-2024 15:58-0500 Body temperature 96.8 [degF] Edu Alvarez CYBER INCIDENT ANALYST Work Phone: [facility] 08-02-2024 15:58-0500 Diastolic blood pressure 66 mm[Hg] Edu Alvarez CYBER INCIDENT ANALYST Work Phone: [facility] 08-02-2024 15:58-0500 Heart rate 88 /min Edu Alvarez CYBER INCIDENT ANALYST Work Phone: [facility] 08-02-2024 15:58-0500 SaO2% (BldA) [Mass fraction] 98 % Edu Alvarez CYBER INCIDENT ANALYST Work Phone: [facility] 08-02-2024 15:58-0500 Systolic blood pressure 106 mm[Hg] Edu Alvarez CYBER INCIDENT ANALYST Work Phone: [facility] 07-25-2024 14:19-0500 Body height 160 cm Sina Garner DO Work Phone: [facility] 07-25-2024 14:19-0500 Body mass index (BMI) [Ratio] 30.82 kg/m2 Sina Garner DO Work Phone: [facility] 07-25-2024 14:19-0500 Body weight 78.93 kg Sina Garner DO Work Phone: [facility] 07-25-2024 14:19-0500 Diastolic blood pressure 68 mm[Hg] Sina Garner DO Work Phone: [facility] 07-25-2024 14:19-0500 Heart rate 68 /min Sina Pascual DO Work Phone: [facility] 07-25-2024 14:19-0500 Respiratory rate 12 /min Sina Pascual DO Work Phone: [facility] 07-25-2024 14:19-0500 SaO2% (BldA) [Mass fraction] 99 % Sina Pascual DO Work Phone: [facility] 07-25-2024 14:19-0500 Systolic blood pressure 128 mm[Hg] Sina Pascual DO Work Phone: [facility] 06-29-2024 12:36-0500 Body mass index (BMI) [Ratio] 29.58 kg/m2 Berenice Evelyn DETECTIVE SERGEANT.PONY WORKER Work Phone: [facility] 06-29-2024 12:36-0500 Body weight 75.75 kg Berenice Evelyn DETECTIVE SERGEANT.PONY WORKER Work Phone: [facility] 06-29-2024 12:36-0500 Diastolic blood pressure 68 mm[Hg] Berenice Evelyn DETECTIVE SERGEANT.PONY WORKER Work Phone: [facility] 06-29-2024 12:36-0500 Heart rate 65 /min Berenice Webbtter DETECTIVE SERGEANT.PONY WORKER Work Phone: [facility] 06-29-2024 12:36-0500 Systolic blood pressure 101 mm[Hg] Berenice Evelyn DETECTIVE SERGEANT.PONY WORKER Work Phone: [facility] 09-23-2023 14:27-0500 Body height 160 cm Berenice Evelyn DETECTIVE SERGEANT.PONY WORKER Work Phone: [facility] 09-23-2023 14:27-0500 Body weight 76.2 kg Berenice Evelyn DETECTIVE SERGEANT.PONY WORKER Work Phone: [facility] 07-21-2023 16:05-0500 Body height 161.2 cm Berenice Evelyn DETECTIVE SERGEANT.PONY WORKER Work Phone: [facility] 07-21-2023 16:05-0500 Body weight 80.06 kg Berenice Evelyn DETECTIVE SERGEANT.PONY WORKER Work Phone: [facility] 07-21-2023 16:05-0500 Diastolic blood pressure 74 mm[Hg] Berenice Evelyn DETECTIVE SERGEANT.PONY WORKER Work Phone: [facility] 07-21-2023 16:05-0500 Heart rate 60 /min Berenice Evelyn DETECTIVE SERGEANT.PONY WORKER Work Phone: [facility] 07-21-2023 16:05-0500 Systolic blood pressure 112 mm[Hg] Berenice Evelyn DETECTIVE SERGEANT.PONY WORKER Work Phone: [facility] 01-15-2022 11:50-0400 Body height 162.6 cm Dasha Lujan MD Work Phone: [facility] 01-15-2022 11:50-0400 Body temperature 98.01 [degF] Dasha Lujan MD Work Phone: [facility] 01-15-2022 11:50-0400 Body weight 104.33 kg Dasha Lujan MD Work Phone: [facility] 01-15-2022 11:50-0400 Diastolic blood pressure 86 mm[Hg] Dasha Lujan MD Work Phone: [facility] 01-15-2022 11:50-0400 Heart rate 65 /min Dasha Lujan MD Work Phone: [facility] 01-15-2022 11:50-0400 Respiratory rate 16 /min Dasha Lujan MD Work Phone: [facility] 01-15-2022 11:50-0400 Systolic blood pressure 124 mm[Hg] Dasha Lujan MD Work Phone: [facility] Encounters Encounter Date Encounter Type Care Provider Facility Start: 04-24-2025 End: 04-24-2025 Bamboo flowsheet Roscoe Diaz DO Work Phone: [facility] Start: 04-24-2025 End: 04-24-2025 Bamboo flowsheet Roscoe Joe DO Work Phone: [facility] Start: 04-24-2025 End: 04-24-2025 flow sheet Roscoe Joe DO Work Phone: [facility] Comment on above: Third trimester preg piper ([facility]); 36 weeks gestation of ([facility]) Start: 04-23-2025 End: 04-23-2025 Clinisync Result Encounter Rosy KRUGER Work Phone: [facility] Unsolicited Start: 04-23-2025 End: 04-23-2025 Clinisync Result Encounter Rosy KRUGER Work Phone: [facility] Unsolicited Start: 04-23-2025 End: 04-23-2025 Telephone encounter Devika MALDONADO Work Phone: [facility] Start: 04-15-2025 End: 04-15-2025 Clinisync Result Encounter Rosy KRUGER Work Phone: [facility] Unsolicited Start: 04-15-2025 End: 04-15-2025 Clinisync Result Encounter Rosy KRUGER Work Phone: [facility] Unsolicited Start: 04-15-2025 End: 04-15-2025 Telephone encounter Beulah Miller RN [facility] Start: 04-10-2025 End: 04-10-2025 flow sheet Roscoe Joe DO Work Phone: [facility] Comment on above: 34 weeks gestation o f ([facility]); Third trimester ([facility]); H/O gastric sleeve; Insulin controlled gestational diabetes mellitus (GDM) during , antepartum ([facility]) Start: 04-10-2025 End: 04-10-2025 ambulatory ROSCOE JOE Not Available Start: 04-10-2025 End: 04-10-2025 Bamboo flowsheet Roscoe Jeo DO Work Phone: [facility] Start: 04-10-2025 End: 04-10-2025 Bamboo flowsheet Roscoe Joe DO Work Phone: [facility] Start: 04-09-2025 End: 04-09-2025 Telephone encounter Devika Pope JOEL Work Phone: [facility] Start: 04-08-2025 End: 04-08-2025 Clinisync Result Encounter [...] encounter Blanquita Toney RN [facility] Start: 04-01-2025 End: 04-01-2025 ambulatory [facility] Start: 04-01-2025 End: 04-01-2025 Office outpatient visit 25 minutes Daisha Emelia Morel PA-Maria Isabel Work Phone: [facility] Comment on above: Gestational diabetes requiring insulin (Primary Dx) Start: 03-27-2025 End: 03-27-2025 Bamboo flowsheet Roscoe Joe DO Work Phone: [facility] Start: 03-27-2025 End: 03-27-2025 Bamboo flowsheet Roscoe Joe DO Work Phone: [facility] Start: 03-27-2025 End: 03-27-2025 flow sheet Roscoe Joe DO Work Phone: [facility] Comment on above: Third trimester preg piper ([facility]); H/O gastric sleeve; Gestational diabetes mellitus (GDM), antepartum, gestational diabetes method of control unspecified ([facility]); 32 weeks gestation of ([facility]) Start: 03-27-2025 End: 03-27-2025 ambulatory ROSCOE JOE Not Available Start: 03-26-2025 End: 03-26-2025 Telephone encounter Devika MALDONADO Work Phone: [facility] Start: 03-19-2025 End: 03-19-2025 Telephone encounter Fatimah MALDONADO [facility] Start: 03-13-2025 End: 03-13-2025 flow sheet Rosy KRUGER Work Phone: [facility] Comment on above: 30 weeks gestation o f ([facility]); Third trimester ([facility]); H/O gastric sleeve; Gestational diabetes mellitus (GDM), antepartum, gestational diabetes method of control unspecified ([facility]) Start: 03-13-2025 End: 03-13-2025 ambulatory ROSY QUIROZ Not Available Start: 03-13-2025 End: 03-13-2025 Bamboo flowsheet Rosy KRUGER Work Phone: [facility] Start: 03-13-2025 End: 03-13-2025 Bamboo flowsheet Rosy KRUGER Work Phone: [facility] Start: 03-12-2025 End: 03-12-2025 ambulatory DAISHA Emelia MOREL [facility] Start: 03-12-2025 End: 03-12-2025 Office outpatient visit 25 minutes Daisha Morel PA-C Work Phone: [facility] Comment on above: Gestational diabetes mellitus (GDM) in second trimester, gestational diabetes method of control unspecified (Primary Dx); Gestational diabetes requiring insulin Start: 03-05-2025 End: 03-05-2025 Telephone encounter Devika Pope JOEL Work Phone: [facility] Start: 02-27-2025 End: 02-27-2025 flow sheet Roscoe Joe DO Work Phone: [facility] Comment on above: 28 weeks gestation o f ([facility]); Third trimester ([facility]); H/O gastric sleeve; Gestational diabetes mellitus (GDM), antepartum, gestational diabetes method of control unspecified ([facility]) Start: 02-27-2025 End: 02-27-2025 ambulatory ROSCOE HOUSERO Not Available Start: 02-26-2025 End: 02-26-2025 Telephone encounter Devika Pope JOEL Work Phone: [facility] Start: 02-14-2025 End: 02-14-2025 ambulatory Hien Giles RN Work Phone: [facility] Comment on above: Gestational diabetes mellitus (GDM) in second trimester, gestational diabetes method of control unspecified (Primary Dx) Start: 02-11-2025 End: 02-11-2025 flow sheet Rosy KRUGER Work Phone: [facility] Comment on above: Second trimester pre gnancy ([facility]); 26 weeks gestation of ([facility]); H/O gastric sleeve Start: 02-11-2025 End: 02-11-2025 ambulatory ROSY QUIROZ Not Available Start: 02-07-2025 End: 02-07-2025 Chart abstracting Scanning Provider External [facility] Start: 02-01-2025 End: 02-01-2025 Clinisync Result Encounter [...] Available Start: 08-02-2024 End: 08-02-2024 ambulatory EDU ALAVREZ Not Available Start: 08-02-2024 End: 08-02-2024 Office outpatient visit 25 minutes Edu Alvarez CYBER INCIDENT ANALYST Work Phone: [facility] Comment on above: Acute cough (Primary Dx); Chest congestion; Bronchitis Start: 07-25-2024 End: 07-25-2024 ambulatory SINA GARNER Not Available Start: 07-25-2024 End: 07-25-2024 Office outpatient new 45 minutes Sina Garner DO Work Phone: [facility] Comment on above: Rectal bleeding (Cony mike Dx) Start: 07-25-2024 End: 07-25-2024 Bamboo flowsheet Sina Garner DO Work Phone: [facility] Start: 07-25-2024 End: 07-25-2024 Bamboo flowsheet Sina Garner DO Work Phone: [facility] Start: 06-29-2024 End: 06-29-2024 ambulatory DASHA LUJAN Facility:[facility] Start: 06-29-2024 End: 06-29-2024 Patient encounter procedure Berenice Zepeda APRN.PONY WORKER Work Phone: Internal Medicine Comment on above: Encounter for weight management (Primary Dx); Overweight Start: 03-06-2024 ambulatory Berenice wheatley DETECTIVE SERGEANT.PONY WORKER Work Phone: Internal Medicine Start: 03-06-2024 Patient encounter procedure Berenice Zepeda APRN.PONY WORKER Work Phone: Internal Medicine Comment on above: Prescription Start: 09-23-2023 End: 09-23-2023 ambulatory Berenice Zepeda APRN.PONY WORKER Work Phone: Internal Medicine Comment on above: Encounter for weight management; Overweight (BMI 25.0-29.9) Start: 09-23-2023 End: 09-23-2023 Telemedicine consultation with patient Berencie Zepeda APRN.PONY WORKER Work Phone: [facility] Start: 08-23-2023 End: 08-23-2023 ambulatory BERENICE ZEPEDA Facility:[facility] Start: 07-26-2023 End: 07-26-2023 ambulatory DASHA LUJAN Facility:[facility] Start: 07-21-2023 End: 07-21-2023 ambulatory BERENICE ZEPEDA Facility:[facility] Start: 07-21-2023 End: 07-21-2023 Patient encounter procedure Berenice Zepeda APRN.PONY WORKER Work Phone: Internal Medicine Comment on above: Routine adult health maintenance (Primary Dx); IFG (impaired fasting glucose); Encounter for weight management; Class 1 obesity due to excess calories with body mass index (BMI) of 30.0 to 30.9 in adult, unspecified whether serious comorbidity present; Encounter for immunization; Immunity status testing Start: 07-21-2023 End: 07-21-2023 Patient encounter status Berenice Zepeda DETECTIVE SERGEANT.PONY WORKER Work Phone: [facility] Work Phone: Start: 06-29-2023 ambulatory Dasha Lujan MD Work Phone: Internal Medicine Comment on above: Prescription Start: 10-11-2022 End: 10-11-2022 ambulatory Reena Breaux Facility:[facility] Start: 10-11-2022 End: 10-11-2022 ambulatory MD Dasha Lujan Work Phone: [facility] Work Phone: Start: 10-11-2022 End: 10-11-2022 Patient encounter procedure MD Dasha Lujan Work Phone: [facility] Start: 06-10-2022 End: 06-10-2022 ambulatory Reena Breaux Facility:[facility] Start: 01-15-2022 End: 01-15-2022 Office outpatient [...] Date Procedure Procedure Detail Performing Clinician Start: 04-24-2025 Urnls dip stick/tabl et rgnt non-auto w/o micrscp Roscoe Joe DO Work Phone: Start: 04-23-2025 US OB BPP W NON-STRESS Rosy KRUGER Work Phone: Start: 04-15-2025 US OB BPP W NON-STRESS [...] micrscp Roscoe Housero DO Work Phone: Start: 01-15-2022 Adult depression scr eening assessment Dasha Lujan MD Work Phone: Plan of Treatment Date Care Activity Detail Author Start: 07-21-2033 DTaP,Tdap and Td Vaccines (8 - Td or Tdap) DTaP,Tdap and Td Vaccines (8 - Td or Tdap) [facility] Start: 07-21-2033 Urine microalbumin profile [facility] Start: 12-11-2027 Screening for malign ant neoplasm of cervix [facility] Start: 03-12-2026 Adult BMI Screening Adult BMI Screen ing [facility] Start: 03-12-2026 Tobacco Screening Tobacco Screening [facility] Start: 02-14-2026 Adult BMI Screening Adult BMI Screen ing [facility] Start: 05-01-2025 End: 05-01-2025 Telemedicine consultation with patient 05/01/2025 9:30 AM EDT Telemedicine Maternal- Medicine at [facility] [address] [place] [address] Marilia Dillon, DETECTIVE SERGEANT-[facility] [address] [place] [address] Maternal- Medicine at [facility] Start: 05-01-2025 End: 05-01-2025 Patient encounter procedure 05/01/2025 9:20 AM EDT Routine CHIARA CAAL [address] [place] [id number] Rosy Quiroz PA [address] [place] [address] CHIARA Johnson OBANABELLE Start: 04-24-2025 End: 04-24-2026 CULTURE, GROUP B STREP WITH SUSCEPTIBLITY CULTURE, GROUP B STREP WITH SUSCEPTIBLITY Lab Routine Third trimester ([facility]) Expected: 04/24/2025, Expires: 04/24/2026 [facility] Work Phone: Comment on above: Expected: 04/24/2025 , Expires: 04/24/2026 Start: 04-24-2025 End: 04-24-2025 Patient encounter procedure [facility] Comment on above: Arrived Start: 04-22-2025 Influenza vaccination [facility] Start: 04-10-2025 End: 04-10-2025 Patient encounter procedure [facility] Comment on above: Arrived Start: 04-01-2025 End: 04-01-2025 Telemedicine consultation with patient 04/01/2025 10:00 AM EDT Telemedicine Maternal- Medicine at [facility] [address] [place] [id number] Daisha Morel PA-C [address] [address] Maternal- Medicine at [facility] Start: 03-27-2025 End: 03-27-2025 Patient encounter procedure [facility] Comment on above: Arrived Start: 03-13-2025 End: 03-13-2025 Patient encounter procedure [facility] Comment on above: Arrived Start: 02-27-2025 End: 02-27-2025 Professional / ancillary services management 02/27/2025 1:00 PM EDT Ancillary Procedure [facility] [address] [place] [address] [facility] Start: 02-14-2025 End: 02-14-2025 ambulatory 02/14/2025 1:30 PM EDT Support Visit Maternal- Medicine at [facility] [address] [place] [id number] Hien Giles, RN [address] [address] Devika Pope, LD [address] [place] [address] Maternal- Medicine at [facility] Start: 02-11-2025 End: 06-13-2025 US for US OB follow up transabdominal approach Imaging Routine H/O gastric sleeve Expected: 02/11/2025, Expires: 06/13/2025 [facility] Work Phone: Comment on above: Expected: 02/11/2025 , Expires: 06/13/2025 Start: 02-11-2025 End: 02-11-2025 Patient encounter procedure 02/11/2025 11:30 AM EDT Routine [facility] [address] [place] [address] Rosy Quiroz PA [address] [place] [address] [facility] Start: 01-30-2025 End: 01-30-2025 Professional / ancillary services management 01/30/2025 1:00 PM EDT Ancillary Procedure [facility] [address] [place] [address] [facility] Start: 01-15-2025 Pap Testing Pap Testing [facility] Start: 01-15-2025 Screening for malign ant neoplasm of cervix Pap Testing [facility] Start: 01-10-2025 End: 01-10-2026 CBC panel - Blood by Automated count CBC Lab Routine Diabetes mellitus screening Expected: 01/10/2025 (Approximate), Expires: 01/10/2026 [facility] Work Phone: Comment on above: Expected: 01/10/2025 (Approximate), Expires: 01/10/2026 Start: 01-10-2025 End: 01-10-2026 Measurement of glucose 1 hour after glucose challenge for glucose tolerance test Glucose tolerance, 1 hour Lab Routine Diabetes mellitus screening Expected: 01/10/2025 (Approximate), Expires: 01/10/2026 [facility] Comment on above: Expected: 01/10/2025 (Approximate), Expires: 01/10/2026 Start: 01-10-2025 End: 01-10-2025 Patient encounter procedure 01/10/2025 10:10 AM EDT Routine [facility] [address] [place] [address] Roscoe Diaz, [address] [place] [address] [facility] Start: 12-10-2024 End: 01-09-2025 [...] AM EDT Routine [facility] [address] [place] [phone] Rosy Quiroz PA [address] [place] [address] Arrived [facility] Comment on above: Arrived Start: 11-08-2024 End: 11-08-2024 Patient encounter procedure 11/08/2024 10:50 AM EDT Routine [facility] [address] [place] [address] Roscoe Diaz, [address] [place] [address] [facility] Start: 10-18-2024 End: 10-18-2025 [...] first trimester Expected: 10/18/2024 (Approximate), Expires: 10/18/2025 [facility] Comment on above: Expected: 10/18/2024 (Approximate), Expires: 10/18/2025 Start: 10-18-2024 End: 10-18-2025 US Pelvis transvaginal [facility] Work Phone: Comment on above: Expected: 10/18/2024 , Expires: 10/18/2025 Start: 07-21-2024 Covid-19 Vaccine (#1) Covid-19 Vacci ne (#1) [facility] Comment on above: Postponed from 04/08 (Declined at this time) Start: 07-21-2024 Covid-19 Vaccine ( season) Covid-19 Vaccine () [facility] Comment on above: Postponed from 04/22 (Declined at this time) Start: 04-22-2024 Covid-19 Vaccine ( season) Covid-19 Vaccine () [facility] Start: 04-22-2024 Influenza vaccination Influenza Vacc ine (#1) [facility] Start: 02-19-2024 Influenza vaccination Influenza Vacc ine (#1) [facility] Comment on above: Postponed from 04/22 (Declined at this time) Start: 08-22-2023 Behavioral Health Screening Behavioral Health Screening [facility] Start: 08-22-2023 Depression Assessment Depression Ass essment [facility] Start: 07-21-2023 End: 10-20-2023 CBC W Auto Differential panel - Blood CBC + DIFF Lab Routine Routine adult health maintenance Expected: 07/21/2023, Expires: 10/20/2023 [facility] Work Phone: Comment on above: Expected: 07/21/2023 , Expires: 10/20/2023 Start: 07-21-2023 End: 10-20-2023 Comprehensive metabolic 2000 panel - Serum or Plasma COMP METABOLIC PANEL Lab Routine Routine adult health maintenance Expected: 07/21/2023, Expires: 10/20/2023 [facility] Work Phone: Comment on above: Expected: 07/21/2023 , Expires: 10/20/2023 Start: 07-21-2023 End: 10-20-2023 Hemoglobin A1c in Blood HGB A1C Lab Routine IFG (impaired fasting glucose) Routine adult health maintenance Expected: 07/21/2023, Expires: 10/20/2023 [facility] Work Phone: Comment on above: Expected: 07/21/2023 , Expires: 10/20/2023 Start: 07-21-2023 End: 10-20-2023 Hepatitis B virus surface Ab [Presence] in Serum HEP B SURF AB Lab Routine Immunity status testing Expected: 07/21/2023, Expires: 10/20/2023 [facility] Work Phone: Comment on above: Expected: 07/21/2023 , Expires: 10/20/2023 Start: 07-21-2023 End: 10-20-2023 Lipid 1996 panel - Serum or Plasma LIPID PANEL BASIC Lab Routine Routine adult health maintenance Expected: 07/21/2023, Expires: 10/20/2023 [facility] Work Phone: Comment on above: Expected: 07/21/2023 , Expires: 10/20/2023 Start: 07-06-2023 Hepatitis B Vaccine (1 of 3 - 3-dose series) Hepatitis B Vaccine (1 of 3 - 3-dose series) [facility] Comment on above: Postponed from 10/09 (Declined at this time) Start: 04-22-2023 Influenza vaccination Influenza Vacc ine (#1) [facility] Start: 01-15-2023 Adult depression screening assessment DEPRESSION SCREENING [facility] Start: 01-15-2023 COVID-19 VACCINE (#1) COVID-19 VACCI NE (#1) [facility] Comment on above: Postponed from 10/09 (Declined at this time) Start: 01-15-2023 PAP TESTING PAP TESTING [facility] Start: 01-15-2023 Screening for malign ant neoplasm of cervix Cervical Cancer Screening [facility] Start: 2022 HPV Testing HPV Testing [facility] Start: 2022 Screening for malign ant neoplasm of cervix [facility] Start: 08-22-2022 Depression Assessment Depression Ass essment [facility] Start: 04-22-2022 Influenza vaccination INFLUENZA (Sea son Ended) [facility] Start: 01-15-2022 End: 03-17-2022 Hemoglobin A1c/Hemoglobin.total in Blood [facility] Work Phone: Comment on above: Expected: 01/15/2022 , Expires: 03/17/2022 Start: 2013 Screening for malign ant neoplasm of cervix Pap Smear [facility] Start: 2011 DTaP,Tdap and Td Vaccines (1 - Tdap) DTaP,Tdap and Td Vaccines (1 - Tdap) [facility] Start: 2011 Urine microalbumin profile [facility] Start: 2010 Adult BMI Follow Up Plan Adult BMI Follow Up Plan [facility] Start: 2010 Adult BMI Screening Adult BMI Screen ing [facility] Start: 2010 Anxiety Screening Anxiety Screening [facility] Start: 2010 Depression Screening Depression Scre ening [facility] Start: 2004 Depression Screening Depression Scre [facility] Start: 2004 Tobacco Screening Tobacco Screening [facility] Start: 04-08-1993 Covid-19 Vaccine (#1) Covid-19 Vacci ne (#1) [facility] Start: 1992 Hepatitis B Vaccine (1 of 3 - 3-dose series) Hepatitis B Vaccine (1 of 3 - 3-dose series) [facility] Bacteria identified in Urine by Culture Urine culture Microbiology Routine Missed menses Ordered: 10/18/2024 [facility] Comment on above: Ordered: 10/18/2024 CBC W Auto Different ial panel - Blood CBC and differential Lab Routine Missed menses , unspecified gestational age Ordered: 10/18/2024 [facility] Comment on above: Ordered: 10/18/2024 CHLAMYDIA TRACHOMATI S (GENITO/STI) CHLAMYDIA TRACHOMATIS (GENITO/STI) Lab Routine Exposure to STD Ordered: 12/10/2024 [facility] Comment on above: Ordered: 12/10/2024 Cytology Cervical or vaginal smear or scraping study Pap Smear Pathology and Cytology Routine Well woman exam with routine gynecological exam Ordered: 12/10/2024 [facility] Comment on above: Ordered: 12/10/2024 Hemoglobin A1c/Hemoglobin.total in Blood Hemoglobin A1c Lab Routine Missed menses , unspecified gestational age Ordered: 10/18/2024 [facility] Comment on above: Ordered: 10/18/2024 Hepatitis B virus surface Ag [Presence] in Serum or Plasma by Immunoassay Hepatitis B surface antigen Lab Routine Missed menses , unspecified gestational age Ordered: 10/18/2024 [facility] Comment on above: Ordered: 10/18/2024 Hepatitis C virus Ab [Presence] in Serum or Plasma by Immunoassay Hepatitis C antibody Lab Routine Missed menses , unspecified gestational age Ordered: 10/18/2024 [facility] Comment on above: Ordered: 10/18/2024 HIV-1/HIV-2 antigen/antibody combination immunoassay HIV-1 and HIV-2 antibodies Lab Routine Missed menses , unspecified gestational age Ordered: 10/18/2024 [facility] Comment on above: Ordered: 10/18/2024 Human papilloma viru s DNA [Presence] in Unspecified specimen by Probe with amplification HPV DNA probe, amplified Microbiology Routine Well woman exam with routine gynecological exam Ordered: 12/10/2024 [facility] Comment on above: Ordered: 12/10/2024 Neisseria gonorrhoea e DNA [Presence] in Unspecified specimen by ALPA with probe detection Neisseria gonorrhea DNA probe, direct Lab Routine Exposure to STD Ordered: 12/10/2024 [facility] Comment on above: Ordered: 12/10/2024 Reagin Ab [Presence] in Serum by RPR RPR Lab Routine Missed menses , unspecified gestational age Ordered: 10/18/2024 [facility] Comment on above: Ordered: 10/18/2024 Rubella antibody, IgG Rubella an tibody, IgG Lab Routine Missed menses , unspecified gestational age Ordered: 10/18/2024 [facility] Comment on above: Ordered: 10/18/2024 SURESWAB(R) ADVANCED VAGINITIS PLUS, TMA SURESWAB(R) ADVANCED VAGINITIS PLUS, TMA Pathology and Cytology Routine Exposure to STD Ordered: 12/10/2024 [facility] Work Phone: Comment on above: Ordered: 12/10/2024 Thiamine [Moles/volu me] in Blood [facility] [place] [facility] Immunizations Immunization Date Immunization Notes Care Provider [facility] 07-21-2023 tetanus toxoid, redu sloane diphtheria toxoid, and acellular pertussis vaccine, adsorbed Berenice Zepeda DETECTIVE SERGEANT.PONY WORKER Work Phone: [facility] 05-03-2011 meningococcal polysaccharide (groups A, C, Y and W-135) diphtheria toxoid conjugate vaccine (MCV4P) Berenice Zepeda DETECTIVE SERGEANT.PONY WORKER Work Phone: [facility] 05-03-2011 tetanus toxoid, redu sloane diphtheria toxoid, and acellular pertussis vaccine, adsorbed Berenice Mirandaer DETECTIVE SERGEANT.PONY WORKER Work Phone: [facility] 03-29-2011 human papilloma viru s vaccine, quadrivalent Berenice Evelyn DETECTIVE SERGEANT.PONY WORKER Work Phone: [facility] 11-26-2010 human papilloma viru s vaccine, quadrivalent Berenice Evelyn DETECTIVE SERGEANT.PONY WORKER Work Phone: [facility] 09-28-2010 human papilloma viru s vaccine, quadrivalent Berenice Evelyn DETECTIVE SERGEANT.PONY WORKER Work Phone: [facility] 04-30-1998 diphtheria, tetanus toxoids and acellular pertussis vaccine, unspecified formulation Berenice Zepeda DETECTIVE SERGEANT.PONY WORKER Work Phone: [facility] 04-30-1998 measles, mumps and rubella virus vaccine Berenice Evelyn DETECTIVE SERGEANT.PONY WORKER Work Phone: [facility] 04-30-1998 trivalent poliovirus vaccine, live, oral Berenice Evelyn DETECTIVE SERGEANT.PONY WORKER Work Phone: [facility] 06-07-1994 diphtheria, tetanus toxoids and acellular pertussis vaccine, unspecified formulation Berenice Evelyn DETECTIVE SERGEANT.PONY WORKER Work Phone: [facility] 06-07-1994 hepatitis B vaccine, pediatric or pediatric/adolescent dosage Berenice Evelyn DETECTIVE SERGEANT.PONY WORKER Work Phone: [facility] 06-07-1994 trivalent poliovirus vaccine, live, oral Berenice Evelyn DETECTIVE SERGEANT.PONY WORKER Work Phone: [facility] 03-01-1994 haemophilus influenz ae type b vaccine, conjugate unspecified formulation Berenice Evelyn DETECTIVE SERGEANT.PONY WORKER Work Phone: [facility] 03-01-1994 hepatitis B vaccine, pediatric or pediatric/adolescent dosage Berenice Evelyn DETECTIVE SERGEANT.PONY WORKER Work Phone: [facility] 03-01-1994 measles, mumps and rubella virus vaccine Berenice Evelyn DETECTIVE SERGEANT.PONY WORKER Work Phone: [facility] 07-27-1993 diphtheria, tetanus toxoids and pertussis vaccine Berenice Evelyn DETECTIVE SERGEANT.PONY WORKER Work Phone: [facility] 07-27-1993 haemophilus influenz ae type b vaccine, conjugate unspecified formulation Berenice Evelyn DETECTIVE SERGEANT.PONY WORKER Work Phone: [facility] 07-27-1993 hepatitis B vaccine, pediatric or pediatric/adolescent dosage Berenice Evelyn DETECTIVE SERGEANT.PONY WORKER Work Phone: [facility] 03-16-1993 diphtheria, tetanus toxoids and pertussis vaccine Berenice Evelyn DETECTIVE SERGEANT.PONY WORKER Work Phone: [facility] 03-16-1993 haemophilus influenz ae type b vaccine, conjugate unspecified formulation Berenice Evelyn DETECTIVE SERGEANT.PONY WORKER Work Phone: [facility] 03-16-1993 trivalent poliovirus vaccine, live, oral Berenice Evelyn DETECTIVE SERGEANT.PONY WORKER Work Phone: [facility] 1992 diphtheria, tetanus toxoids and pertussis vaccine [place] Evelyn DETECTIVE SERGEANT.PONY WORKER Work Phone: [facility] 1992 haemophilus influenz ae type b vaccine, conjugate unspecified formulation [place] Evelyn DETECTIVE SERGEANT.PONY WORKER Work Phone: [facility] 1992 trivalent poliovirus vaccine, live, oral [place] Evelyn DETECTIVE SERGEANT.PONY WORKER Work Phone: [facility] Payers Date Payer Category Payer Blue [employer] Blue [employer] [id number] [id number] 2023 Unknown [id number] 2023 Private Health Insurance [employer] [id number] 2023 Unknown [id number] 2022 Self-pay 2022 Unknown [id number] 2019 Blue Cross Blue [facility] Other [id number] 2019 Unknown JULIETA BLUE CARD PPO OOS [id number] 2019-Present [phone] [address] [place] [address] PPO [id number]. [id number] 2019 Unknown [id number] [id number]. [id number] 1992 Unknown [id number] 2.16.840.1.867263.3.579.2. 1286 1992 Unknown [id number] 2.16.840.1.686197.3.579.2. 1286 1992 Unknown [id number] 2.16.840.1.923688.3.579.2. 1286 1992 Unknown [id number] 2.16.840.1.065312.3.579.2. 9 1992 Unknown [id number] 2.840.1.228073.3.579.2. 1258 1992 Unknown [id number] 2.16.840.1.918048.3.579.2. 9 1992 Unknown [id number] 2.16.840.1.203091.3.579.2. 1258 1992 Unknown [id number] 2.16.840.1.177830.3.579.2. 9 1992 Unknown [id number] 2.16840.1.989176.3.579.2. 9 1992 Unknown [id number] 2.16.840.1.065750.3.579.2. 1259 1992 Unknown [id number] 2.16.840.1.260309.3.579.2. 1258 1992 Unknown [id number] 2.16840.1.604556.3.579.2. 9 1992 Unknown [id number] 2.16.840.1.165130.3.579.2. 9 1992 Unknown [id number] 2.16840.1.297877.3.579.2. 1259 1992 Unknown [id number] 2.16.840.1.714733.3.579.2. 1259 1992 Unknown [id number] 2.16.840.1.118819.3.579.2. 1259 1992 Unknown [id number] 2.16.840.1.505327.3.579.2. 1259 1992 Unknown [id number] 2.16.840.1.139797.3.579.2. 1259 Unknown [id number] 2.16.840.1.728759.3.579.2. 531 Unknown [id number] 2.16.840.1.327786.3.579.2. 531 Social History Date Type Detail Facility Tobacco smoking stat us PRIS Tobacco smoking consumption unknown [facility] Start: 1992 Sex Assigned At Not on file [facility] Start: 01-15-2022 End: 10-17-2023 Tobacco smoking status PRIS Never smoked tobacco [facility] Start: 01-15-2022 End: 10-17-2023 Tobacco use and exposure Smokeless tobacco non-user [facility] Start: 01-15-2022 End: 08-23-2023 Alcohol intake Current drinker of alcohol (finding) [facility] Start: 01-15-2022 End: 07-25-2024 Alcohol intake [facility] Start: 01-12-2022 History SDOH Alcohol Frequency 2 [facility] Start: 01-12-2022 History SDOH Alcohol Std Drinks 1 [facility] Start: 01-15-2022 History SDOH Alcohol Comment occ. drink [facility] Start: 01-12-2022 History SDOH Social Connections Phone 5 [facility] Start: 01-12-2022 History SDOH Social Connections Get Together 4 [facility] Start: 01-12-2022 History SDOH Social Connections Living 7 [facility] Start: 01-12-2022 History SDOH Physical Activity MPS 3 [facility] Start: 1990 Sex Assigned At Female [facility] Start: 01-12-2022 End: 12-04-2024 Social connection and isolation panel [facility] Do you belong to any clubs or organizations such as restorationism groups, unions, fraternal or athletic groups, or school groups? No [facility] Are you now , , , , never or living with a partner? Never [facility] How often to you hav e a drink containing alcohol? Monthly or less [facility] How many standard dr inks containing alcohol do you have on a typical day? 1 or 2 [facility] How often do you hav e 6 or more drinks on 1 occasion? Never [facility] How hard is it for y ou to pay for the very basics like food, housing, medical care, and heating Not hard at all [facility] Do you feel stress - tense, restless, nervous, or anxious, or unable to sleep at night because your mind is troubled all the time - these days [OSQ] Not at all [facility] (I/We) worried wheshelly er (my/our) food would run out before (I/we) got money to buy more. Never true [facility] Start: 01-12-2022 Gender identity Identifies as female gender (finding) [facility] Are you now , , , , never or living with a partner? Living with partner [facility] How hard is it for y ou to pay for the very basics like food, housing, medical care, and heating Not very hard [facility] Do you feel stress - tense, restless, nervous, or anxious, or unable to sleep at night because your mind is troubled all the time - these days [OSQ] To some extent [facility] The food that (I/we) bought just didn't last, and (I/we) didn't have money to get more. DK or Refused [facility] Start: 10-17-2023 End: 04-24-2025 Alcoholic beverage intake Ex-drinker (finding) [facility] re Start: 10-17-2023 Alcohol Comment Caffeine intake: 1cup coffee/ day [facility] Start: 09-14-2023 [facility] Start: 04-22-2015 Sex Female (finding) [email or web address] [facility] Medical Equipment Procedure Code Equipment Code Equipment Origin al Text Equipment Identifier Dates 1 strip by In Vi tro route Daily Use in the morning prior to breakfast, 1 hour after each meal for a total of 4times daily. [id number] Start: 02-04-2025 End: 03-06-2025 1 each by In Vit ro route Daily Use to check FSBS four times daily [id number] Start: 02-04-2025 End: 03-06-2025 Use to inject insulin nightly [id number] Start: 03-12-2025 Goals Date Patient Goal Desired Activity /State Personal health goal Clinical Notes 01-08-2022 to 04-24-2025 Samia King LPN - 04/24/2025 11:30 AM EDTTelephone Encounter - Devika Niko, JOEL - 04/23/2025 12:38 PM EDTTelephone Encounter - Devika Pope, - 04/23/2025 12:38 PM EDTPatient Instructions Note Date & Type Note Facility 04-24-2025 History of Present illness Narrative Reason for [...] nursing note reviewed. Exam conducted with a can filling room sweeper present. Vitals: Estimated body mass index is 37.22 kg/m as calculated from the following: Height as of 07/25/24: 5' 3 . Weight as of this encounter: 210 lb 1.9 oz. BP: 116/74 Patient's last menstrual period was 08/12/2024. ASSESSMENT & PLAN ICD-10-CM 1. Third trimester ([facility]) Z34.93 POCT urinalysis dipstick manually resulted CULTURE, GROUP B STREP WITH SUSCEPTIBLITY CULTURE, GROUP B STREP WITH SUSCEPTIBLITY 2. 36 weeks gestation of ([facility]) Z3A.36 POCT urinalysis dipstick manually resulted Patient [...] Roscoe Diaz DO documented in this encounter [facility] 04-23-2025 Miscellaneous Notes Called regarding blood sugar logs from 04/15/25-04/21/25 [...] blood sugars weekly. documented in this encounter [facility] 04-23-2025 Telephone encounter Note Called regarding blood sugar logs from 04/15/25-04/21/25 [...] sugars and send in blood sugars weekly. [facility] Phone: 04-15-2025 Miscellaneous Notes Received BG results and all are in target range. Called and left message of praise for all efforts and to call if questions. To send next week again. No changes. documented in this encounter [facility] 04-15-2025 Telephone encounter Note Received BG results and all are in target range. Called and left message of praise for all efforts and to call if questions. To send next week again. No changes. [facility] 04-10-[facility]25 History of Present illness Narrative Reason for Appointment: Patient ID: Caryl aZmarripa is a 34 y.o. female who presents for No chief complaint on file. Patient presents today for Return OB appointment. MEDICATIONS Current Outpatient Medications Medication Instructions Alcohol Swabs (Alcohol Prep Pad) 70 % pads 1 Pad, Topical, Daily, Use four times daily to check FSBS. aspirin 81 mg, Daily Blood Glucose Monitoring Suppl ([employer] Glucometer) w/Device kit 1 kit, Does not [...] nursing note reviewed. Exam conducted with a can filling room sweeper present. Vitals: Estimated body mass index is 37.22 kg/m as calculated from the following: Height as of 24: 5' 3 . Weight as of this encounter: 210 lb 1.9 oz. BP: 120/70 Patient's last menstrual period was 08/12/2024. ASSESSMENT & PLAN ICD-10-CM 1. 34 weeks gestation of ([facility]) Z3A.34 POCT urinalysis dipstick manually resulted 2. Third trimester ([facility]) Z34.93 POCT urinalysis dipstick manually resulted 3. H/O gastric sleeve Z90.3 4. Insulin controlled gestational diabetes mellitus (GDM) during , antepartum ([facility]) O24.414 Return OB: Patient presents today for [...] Roscoe Diaz DO documented in this encounter [facility] 04-09-2025 Miscellaneous Notes Called regarding blood sugar [...] April. documented in this encounter [facility] 04-09-2025 Telephone encounter Note Called regarding [...] provider for the second week in April. [facility] Work Phone: 04-01-2025 Miscellaneous Notes Left message for patient to call M back to reschedule a 4 week video visit shobha Marr. documented in this encounter [facility] 04-01-2025 Telephone encounter Note Left message for patient to call MFM back to reschedule a 4 week video visit shobha Marr. [facility] 04-01-2025 History of Present illness Narrative [...] nightly, Disp: 100 each, Rfl: 2 25-IRON HLA-APLSE-WRT ORAL, Take 1 tablet by mouth in [...] Delivery recommendations : - Recommend delivery at [id number] - reviewed with pateint - Discuss delivery [...] values to us weekly by e-mail to: [email or web address] or by fax to: [phone] Daisha Morel PA-C [facility] Office phone: [phone] Daisha Morel PA-C 04/01/25 1331 documented [facility] this [facility] 04-01-2025 Miscellaneous Notes Left message to remind patient of video visit today at 10 AM. Call back number given to reschedule if unable to keep appointment. [facility] 04-01-[facility]25 Telephone encounter Note Left message to remind patient of video visit today at 10 AM. Call back number given to reschedule if unable to keep appointment. [facility] 03-27-2025 History of Present illness Narrative [...] 81 mg, Daily Blood Glucose Monitoring Suppl ([employer] Glucometer) w/Device kit 1 kit, Does not [...] nursing note reviewed. Exam conducted with a can filling room sweeper present. Vitals: Estimated body mass index is 36.28 kg/m as calculated from the following: Height as of 24: 5' 3 . Weight as of this encounter: 204 lb 12.8 oz. BP: 116/72 Patient's last menstrual period was 08/12/2024. ASSESSMENT & PLAN ICD-10-CM 1. Third trimester ([facility]) Z34.93 POCT urinalysis dipstick manually resulted 2. H/O gastric sleeve Z90.3 POCT urinalysis dipstick manually resulted 3. Gestational diabetes mellitus (GDM), antepartum, gestational diabetes method of control unspecified ([facility]) O24.419 POCT urinalysis dipstick manually resulted 4. 32 weeks gestation of ([facility]) Z3A.32 POCT urinalysis dipstick manually resulted Return [...] appointment. Patient continues to send FSBS to [facility] and doing well and [facility] continues to manage her Lantus dosing. She will begin NST/ BPP this week. Documented by Adelaida Dugan NP on behalf of: Roscoe Diaz DO documented in this encounter [facility] 03-26-2025 Miscellaneous Notes Called regarding blood sugar logs from 03/18/2025-03/24/2025 but received voicemail. Caryl had one elevated fasting blood sugar ( she may not of had a snack the night before) and three elevated blood sugars after dinner. She is taking 10 units of Lantus in the evening. Will send a MyChart message. documented in this encounter [facility] 03-26-2025 Telephone encounter Note Called regarding blood sugar logs from 03/18/2025-03/24/2025 but received voicemail. Caryl had one elevated fasting blood sugar ( she may not of had a snack the night before) and three elevated blood sugars after dinner. She is taking 10 units of Lantus in the evening. Will send a MyChart message. [facility]: 03-19-2025 Miscellaneous Notes Blood glucose [...] target. documented in this encounter [facility] 03-19-2025 Telephone encounter Note Blood glucose log from 03/11/25 to 03/17/25 received. Patient did not answer. I left a voicemail asking her to check for a new MyChart message that I am going to leave with questions about her dinner values (4 out of 7 were still elevated). Patient started Lantus on 03/12/25 and all fasting BG now in target. [facility] 03-13-2025 History of Present illness Narrative [...] 81 mg, Daily Blood Glucose Monitoring Suppl ([employer] Glucometer) w/Device kit 1 kit, Does not [...] ICD-10-CM 1. 30 weeks gestation of ([facility]) Z3A.30 POCT urinalysis dipstick manually resulted 2. Third trimester ([facility]) Z34.93 POCT urinalysis dipstick manually resulted 3. H/O gastric sleeve Z90.3 4. Gestational diabetes mellitus (GDM), antepartum, gestational diabetes method of control unspecified ([facility]) O24.419 Return OB: Patient presents today for [...] of: SLICK Matias documented in this encounter [facility] 03-12-2025 History of Present illness Narrative [...] nausea or vomiting., Disp: , Rfl: 25-IRON [id number] ORAL, Take 1 tablet by mouth in [...] more likely to fail compared to insulin. long term acute care registered nurse data on children whose mothers took oral [...] Delivery recommendations : - Recommend delivery at [id number] - reviewed with pateint - Discuss delivery [...] values to us weekly by e-mail to: [email or web address] or by fax to: [phone] Daisha Morel PA-C Maternal- [facility] Office phone: [phone] Daisha Morel PA-C 03/12/25 1500 Summary: [facility] Insulin Pen Instruction Patient present for Insulin Start Education. Reviewed rapid and long acting insulin action times and recommended administration sites, timing, storage and site rotation. Demonstrated and reviewed insulin pen administration steps. Able to return demonstrate insulin pen administration steps without minimal difficulty. Verbalized understanding and denied any questions. Face to face time 10 minutes. documented in this encounter [facility] 03-05-2025 Miscellaneous Notes Called regarding blood sugar logs from 02/25/2025-03/03/2025 but the call went directly to voicemail. Caryl had 1 one elevated fasting blood sugar, 1 elevated blood sugar after breakfast, one elevated blood sugar after lunch, and 4 elevated blood sugars after dinner. Will send a [employer] message. documented in this encounter [facility] 03-05-2025 Telephone encounter Note Called regarding blood sugar logs from 02/25/2025-03/03/2025 but the call went directly to voicemail. Caryl had 1 one elevated fasting blood sugar, 1 elevated blood sugar after breakfast, one elevated blood sugar after lunch, and 4 elevated blood sugars after dinner. Will send a [employer]lst message. [facility] Work Phone: 02-27-2025 History of Present illness [...] nursing note reviewed. Exam conducted with a can filling room sweeper present. Vitals: Estimated body mass index is 36.1 kg/m as calculated from the following: Height as of 07/25/24: 5' 3 . Weight as of this encounter: 203 lb 12.8 oz. BP: 110/60 Patient's last menstrual period was 08/12/2024. ASSESSMENT & PLAN ICD-10-CM 1. 28 weeks gestation of ([facility]) Z3A.28 POCT urinalysis dipstick manually resulted 2. Third trimester ([facility]) Z34.93 POCT urinalysis dipstick manually resulted 3. H/O gastric sleeve Z90.3 4. Gestational diabetes mellitus (GDM), antepartum, gestational diabetes method of control unspecified ([facility]) O24.419 Return OB: Patient presents today for [...] Roscoe Diaz DO documented in this encounter [facility] 02-26-2025 Miscellaneous Notes Called regarding blood [...] a MyChart message. documented in this encounter [facility] 02-26-2025 Telephone encounter Note Called regarding blood [...] questions. Will also send a MyChart message. [facility] Work Phone: 02-14-2025 Group counseling note [...] of food logs and blood glucoses to [email or web address], next Tuesday night/Tuesday morning. Please refer to health habits for other goals. Breakfast 6-6:30 AM 15-25 grams of CHO, Snack 9 AM 15-30 grams of CHO, Lunch 11:30-Noon 45 grams of CHO, Snack 2-3 PM 15-30 grams of CHO, Dinner 6 PM 45 grams of CHO, HS Snack 8-9 PM 15-30 grams of CHO. Face to face time was 70 minutes. [facility] Work Phone: 02-14-2025 Miscellaneous Notes Patient: [...] of food logs and blood glucoses to [email or web address], next Tuesday night/Tuesday morning. Please refer to [...] was 70 minutes. documented in this encounter [facility] 02-11-2025 History of Present illness Narrative [...] nursing note reviewed. Exam conducted with a can filling room sweeper present. Vitals: Estimated body mass index is 35.87 kg/m as calculated from the following: Height as of 24: 5' 3 . Weight as of this encounter: 202 lb 8 oz. BP: 110/60 Patient's last menstrual period was 08/12/2024. ASSESSMENT & PLAN ICD-10-CM 1. Second trimester ([facility]) Z34.92 POCT urinalysis dipstick manually resulted 2. 26 weeks gestation of ([facility]) Z3A.26 3. H/O gastric sleeve Z90.3 OB follow up transabdominal approach Return OB: [...] Adelaida Dugan NP documented in this encounter [facility] 01-10-2025 History of Present illness Narrative [...] nursing note reviewed. Exam conducted with a can filling room sweeper present. Vitals: Estimated body mass index is [...] Roscoe Diaz DO documented in this encounter [facility] 12-10-2024 History of Present illness [...] nursing note reviewed. Exam conducted with a can filling room sweeper present. Vitals: Estimated body mass index is [...] of: SLICK Matias documented in this encounter [facility] 11-08-2024 History of Present illness [...] Roscoe Diaz DO documented in this encounter [facility] 10-18-2024 History of Present illness [...] or undercooked meat, and stay away from [facility]. Patient has also been advised to [...] Monika Mesa LPN documented in this encounter [facility] 08-02-2024 History of Present illness Narrative Images from the original note were not included. [address], [address] [place] [facility], [address] P: [phone] F: [phone] HPI Historian of HPI: patient Caryl Zamarripa [...] Left Turbinates: Enlarged and swollen. Mouth/Throat: Lips: Nordic. Mouth: Mucous membranes are moist. Pharynx: Oropharynx [...] tablet; Refill: 0 documented in this encounter [facility] 07-25-2024 History of Present illness [...] Use: Not At Risk (07/19/2023) Received from [facility] AUDIT-C Frequency of Alcohol Consumption: Monthly or less Average Number of Drinks: 1 or 2 Frequency of Binge Drinking: Never Depression: Not at risk (06/29/2024) Received from [facility] PHQ-2 PHQ-2 score: 0 Physical Activity: Insufficiently Active (07/19/2023) Received from [facility] Exercise Vital Sign Days of [...] Alexandro Garner DO documented in this encounter [facility] 06-29-2024 Note HNO ID: [id number] Author: BERENICE ZEPEDA APRN.PONY WORKER Service: ? Author Type: Nurse Practitioner Type: [...] - PHENTERMINE 37.5 MG TABLET Berenice Zepeda APRN.PONY WORKER [facility] 06-29-2024 History of Present illness [...] - PHENTERMINE 37.5 MG TABLET Berenice Zepeda APRN.PONY WORKER documented in this encounter [facility] 03-06-2024 Telephone encounter Note Order formatted Please advise [facility] 03-06-2024 Miscellaneous Notes Order formatted Please advise documented in this encounter [facility] 09-23-2023 Note HNO ID: [id number] Author: BERENICE ZEPEDA APRN.GIORGI Service: ? Author Type: Nurse Practitioner Type: Progress Notes Filed: 09/23/2023 15:52 Note Text: VIRTUAL VISIT PROGRESS NOTE This is a virtual visit using [employer] Video Visit. It required patient-provider interaction for the medical decision making as documented below. I have communicated my name and active licensure. The patient's identity and physical location were verified at the time of this visit. Either the patient or their legal food service sales representatives has been informed of the risks and [...] Outpatient Medications Medication Sig Omeprazole Magnesium (ACID MEAT GRINDER, OMEPRAZOLE,) 20 mg cpDR No current facility-administered [...] file for this visit. Berenice Zepeda APRN.GIORGI [facility] 09-23-2023 History of Present illness Narrative VIRTUAL VISIT PROGRESS NOTE This is a virtual visit using [employer] Video Visit. It required patient-provider interaction for the medical decision making as documented below. I have communicated my name and active licensure. The patient's identity and physical location were verified at the time of this visit. Either the patient or their legal food service sales representatives has been informed of the risks and [...] Outpatient Medications Medication Sig Omeprazole Magnesium (ACID MEAT GRINDER, OMEPRAZOLE,) 20 mg cpDR No current facility-administered [...] on file for this visit. Berenice Zepeda APRN.PONY WORKER documented in this encounter [facility] 08-23-2023 Note HNO ID: [id number] Author: BERENICE ZEPEDA APRN.PONY WORKER Service: ? Author Type: Nurse Practitioner Type: [...] PHENTERMINE 37.5 MG TABLET Berenice Zepeda APRN.CNP [facility] 07-21-2023 Note HNO ID: [id number] Author: Berenice Zepeda APRN.PONY WORKER Service: ? Author Type: Nurse Practitioner Type: Progress Notes Filed: 07/22/2023 10:16 AM Note Text: Caryl Zamarripa is a 32 year old female here today for review of established medical problems as well as comprehensive physical examination. 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 MEDICATIONS Omeprazole Magnesium (ACID MEAT GRINDER, OMEPRAZOLE,) 20 mg cpDR Phentermine HCl 37.5 [...] No history of dysuria, frequency or incontinence WHEEL SETTER: Negative for abnormal vaginal bleeding, abnormal vaginal [...] and symmetric. Sensation grossly intact. Breast/Pelvic: Per WHEEL SETTER ASSESSMENT/PLAN: 1. Routine adult health maintenance - ICD9: V70.0, ICD10: Z00.00 (primary diagnosis) - Counseled on healthy diet and regular exercise - Calcium intake with supplements or by diet of 1000 mg/day for under 50, 7602-2065 mg/day for 50+ - Discussed need and [...] comorbidity present - (more content not included)... [facility] 07-21-2023 History of Present illness Narrative Caryl Zamarripa is a 32 year old female here today for review of established medical problems as well as comprehensive physical examination. 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 MEDICATIONS Omeprazole Magnesium (ACID MEAT GRINDER, OMEPRAZOLE,) 20 mg cpDR Phentermine HCl 37.5 [...] No history of dysuria, frequency or incontinence WHEEL SETTER: Negative for abnormal vaginal bleeding, abnormal vaginal [...] and symmetric. Sensation grossly intact. Breast/Pelvic: Per WHEEL SETTER ASSESSMENT/PLAN: 1. Routine adult health maintenance - ICD9: V70.0, ICD10: Z00.00 (primary diagnosis) - Counseled on healthy diet and regular exercise - Calcium intake with supplements or by diet of 1000 mg/day for under 50, 6132-2040 mg/day for 50+ - Discussed need and [...] - HEP B SURF AB Berenice Zepeda APRN.PONY WORKER ' documented in this encounter [facility] 06-29-2023 Miscellaneous Notes Sent Valtrex 1 gram twice/day for 2 days with one refill. High stress can cause cold sores? How is your stress level? documented in this encounter [facility] 01-15-2022 Instructions Dasha Lujan MD - 01/15/2022 12:05 PM EDT -Get Hgba1c and K level checked in the near future. -Encourage you to lose 2 lbs/week as a healthy way via diet and exercise -Should you have any questions or concerns, do not hesitate to contact me anytime via my chart (Dr.Sunir Lujan) documented in this encounter [facility] 01-15-2022 History of Present illness Narrative Caryl Zamarripa is a 31 year old female who presents with Establish Care -Pt is here to Establish Care. 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 Says all labs checked out fine per pt discussion. Pt says she did get her thyroid lab work checked 4 years ago, and all checked out fine. Thyroid blood work was also checked recently. -OARRS reviewed: clean -Exterminator Helper: deferred seeing one at this time as pt is undergoing gastric sleeve evaluation (Bariatric Surgery) at [facility]. Pt says that she just needs [...] process to get Bariatric Surgery done at [facility]. (R73.9) Blood glucose elevated Plan: HGB A1C (E87.5) Hyperkalemia Plan: POTASSIUM BLD -Will have her get K level rechecked. (K76.0) Hepatic steatosis -LFT were normal. -Encourage weight reduction and avoid alcohol and tylenol as much as possible. -Will continue to monitor LFT. Dasha Lujan MD documented in this encounter [facility] 01-08-2022 Miscellaneous Notes Will advise on Tuesday when he returns Patient calling stating Dr Lujan agreed to take her into his practice but no documentation found in patient chart. Please advise. documented in this encounter [facility] Evaluation note Diagnosis Preoperative clearance- Primary Preoperative examination, unspecified Obesity (BMI 30-39.9) Obesity, unspecified Blood glucose elevated Other abnormal glucose Hyperkalemia Hyperpotassemia Hepatic steatosis Other chronic nonalcoholic liver disease [facility] noteNo assessment information availableUniversity [facility]als [facility] Work Phone: Evaluation note* Diagnosis Routine adult [...] Antibody response examination [facility] Diagnosis Encounter for weight management Overweight (BMI 25.0-29.9) Overweight [facility] Diagnosis Encounter for weight management- Primary Overweight [facility]* Diagnosis Rectal bleeding- Primary Hemorrhage of [...] control unspecified- Primary [facility] Diagnosis 28 weeks gestation of (HHS-HCC) Third trimester (HHS-HCC) state, incidental H/O gastric sleeve Gestational diabetes mellitus (GDM), antepartum, gestational diabetes method of control unspecified ([facility]) [facility] Diagnosis Gestational diabetes mellitus (GDM) in second trimester, gestational diabetes method of control unspecified- Primary Gestational diabetes requiring insulin Abnormal maternal glucose tolerance, complicating , childbirth, or the puerperium, unspecified as to episode of care [facility] Diagnosis 30 weeks gestation of (HHS-HCC) Third trimester (HHS-HCC) state, incidental H/O gastric sleeve Gestational diabetes mellitus (GDM), antepartum, gestational diabetes method of control unspecified ([facility]-HCC) [facility] Diagnosis Gestational diabetes requiring insulin- Primary Abnormal maternal glucose tolerance, complicating , childbirth, or the puerperium, unspecified as to episode of care [facility] Diagnosis Third trimester (HHS-HCC) state, incidental H/O gastric sleeve Gestational diabetes mellitus (GDM), antepartum, gestational diabetes method of control unspecified (HHS-HCC) 32 weeks gestation of (HHS-HCC) [facility] Diagnosis 34 weeks gestation of (HHS-HCC) Third trimester (HHS-HCC) state, incidental H/O gastric sleeve Insulin controlled gestational diabetes mellitus (GDM) during , antepartum ([facility]) [facility] Diagnosis Third trimester (HHS-HCC) state, incidental 36 weeks gestation of (HHS-HCC) documented in this encounter [facility] HealthcareInstructionsNot on filedocumented in this encounterProCentral [facility] SystemInstructionsNot on filedocumented in this encounterProGerman Hospital SystemInstructionsNot on filedocumented in this encounterProGerman Hospital SystemInstructionsNot on filedocumented in this encounterProGerman Hospital System InstructionsNot on filedocumented in this encounterProGerman Hospital System InstructionsNot on filedocumented in this encounterGal[facility] Summary Purpose Family History No [...] unspecified whether serious comorbidity present Berenice Zepeda APRN.PONY WORKER [address] [place] [address] Referral ID Status Reason Start Date Expiration Date Visits Re quested Visits Authorized [id number] Closed 1 1 Specialty Diagnoses / Procedures Referred By Zachery kenyon Referred To Contact Diagnoses Encounter for weight management Overweight (BMI 25.0-29.9) Berenice Zepeda APRN.PONY WORKER [address] [place] [address] Referral ID Status Reason Start Date Expiration Date Visits Re quested Visits Authorized [id number] Closed 1 1 Additional Source Comments Source Comments (unrecognize d section and content) In the event this informatio n is protected by the Federal Confidentiality of Alcohol and Drug Abuse Patient Records regulations: The Federal rules restrict any use of the information to criminally investigate or prosecute any alcohol or drug abuse patient.[facility] the event this information is protected by the Federal Confidentiality of Alcohol and Drug Abuse Patient Records regulations: The Federal rules restrict any use of the information to criminally investigate or prosecute any alcohol or drug abuse patient.[facility] the event this information is protected by the Federal Confidentiality of Alcohol and Drug Abuse Patient Records regulations: The Federal rules restrict any use of the information to criminally investigate or prosecute any alcohol or drug abuse patient.[facility] the event this information is protected by the Federal Confidentiality of Alcohol and Drug Abuse Patient Records regulations: The Federal rules restrict any use of the information to criminally investigate or prosecute any alcohol or drug abuse patient.[facility] the event this information is protected by the Federal Confidentiality of Alcohol and Drug Abuse Patient Records regulations: The Federal rules restrict any use of the information to criminally investigate or prosecute any alcohol or drug abuse patient.[facility] the event this information is protected by the Federal Confidentiality of Alcohol and Drug Abuse Patient Records regulations: The Federal rules restrict any use of the information to criminally investigate or prosecute any alcohol or drug abuse patient.[facility] the event this information is protected by the Federal Confidentiality of Alcohol and Drug Abuse Patient Records regulations: The Federal rules restrict any use of the information to criminally investigate or prosecute any alcohol or drug abuse patient.[facility] Reason for Visit (unrecogniz ed section and [...] never. Specialty Diagnoses / Procedures Referred By Contac t Referred To Contact General Surgery Diagnoses Rectal bleeding Procedures [place] OFFICE/OUTPATIENT NEW HIGH MDM Sina Garner, DO [address] [facility] [address] [place] [address] Phone: tel: fax: Snia Garner, DO [address] [facility] [address] [place] [address] Phone: tel: fax: Referral ID Status Reason Start Date Expiration Date V isits Requested Visits Authorized [id number] Closed Specialty Services Required 07/11/2024 01/07/2025 1 1 Reason Comments Amenorrhea Reason Comments Routine Visit Reason Comments Elevated Glucose Tolerance Test Specialty Diagnoses / Procedures Referred By Contac t Referred To Contact Maternal and Medicine Diagnoses Gestational diabetes mellitus (GDM) in second trimester, gestational diabetes method of control unspecified Roscoe Diaz R, DO [address] [facility] [place] [address] Phone: tel: fax: Maternal- Medicine at [facility] [address] [place] [address] Phone: tel: fax: Referral ID Status Reason Start Date Expiration Date Visits Requested Visits Authorized [id number] Pending Review Specialty Services Required 02/06/2025 02/06/2026 1 1 Reason Comments MED START Care Teams (unrecognized sec tion and content) Installation Specialist Relationship Specialty [place] [address] [place] [address] PCP - General Internal Medicine 01/11/22 Team Status: Inactive Member Role Status Dates Dasha Lujan MD Primary Care Provider Active Reena Breaux APRN NP-C Attending Provider Rosy multani Team Status: Active Member Role Status Dates Dasha Lujan MD Primary Care Provider Active Installation Specialist Relationship Specialty [place] [address] [place] [address] PCP - General Internal Medicine 01/11/22 Installation Specialist Relationship Specialty [place] [address] [facility] [place] [address] PCP - General Internal Medicine 01/11/22 Installation Specialist Relationship Specialty [place] [address] [place] [address] PCP - General Internal Medicine 01/11/22 Installation Specialist Relationship Specialty [place] [address] [place] [address] PCP - General Internal Medicine 01/11/22 Installation Specialist Relationship Specialty [place] [address] [place] [address] PCP - General Internal Medicine 01/11/22 Installation Specialist Relationship Specialty Start Date End Date Unallocated, Chiara Pate MD [address] [place] [address] [place] [address] PCP - General Family Medicine 10/17/23 Installation Specialist Relationship Specialty Start Date End Date Unallocated, Chiara Pate MD [facility] [place] [address] PCP - General Family Medicine 10/17/23 Installation Specialist Relationship Specialty Start Date End Date Unallocated, Chiara Pate MD [facility] [address] [place] [address] PCP - General Family Medicine 10/17/23 Installation Specialist Relationship Specialty Start Date End Date Unallocated, Chiara Pate MD [facility] [address] [place] [address] PCP - General Family Medicine 10/17/23 Installation Specialist Relationship Specialty Start Date End Date Unallocated, Chiara Pate MD [facility] [place] [address] PCP - General Family Medicine 10/17/23 Installation Specialist Relationship Specialty Start Date End Date Unallocated, Chiara Pate MD [address] [place], [place] [address] [address] PCP - General Family Medicine 10/17/23 Edu Alvarez, CYBER INCIDENT ANALYST [address] [place] [address] PCP - Fonda Commercial 09/22/24 Installation Specialist Relationship Specialty Start Date End Date Unallocated, Chiara Pate MD [facility] [place] [address] PCP - General Family Medicine 10/17/23 Edu Alvarez, CYBER INCIDENT ANALYST [address] [place] [address] PCP - Fonda Commercial 09/22/24 Installation Specialist Relationship Specialty Start Date End Date Unallocated, Chiara Pate MD [address] [place], [place] [address] [address] PCP - General Family Medicine 10/17/23 Edu Alvarez, CYBER INCIDENT ANALYST [address] [place] [address] PCP - Fonda Commercial 09/22/24 Installation Specialist Relationship Specialty Start Date End Date Unallocated, Chiara Pate MD [facility] [place] [address] PCP - General Family Medicine 10/17/23 Edu Alvarez, CYBER INCIDENT ANALYST [address] [place] [address] PCP - Fonda Commercial 09/22/24 Installation Specialist Relationship Specialty Start Date End Date Unallocated, Chiara Pate MD [address] [place] [address] PCP - General Family Medicine 10/17/23 Edu Alvarez, TONIA [address] [place] [address] PCP - Fonda Commercial 09/22/24 Installation Specialist Relationship Specialty Start Date End Date Unallocated, Chiara Ptae MD [facility] [place] [address] PCP - General Family Medicine 10/17/23 Edu Alvarez NP [address] [place] [address] PCP - Fonda Commercial 09/22/24 Installation Specialist Relationship Specialty Start Date End Date Unallocated, Chiara Pate MD [address] [place], [place] [address] [address] PCP - General Family Medicine 10/17/23 Edu Alvarez CYBER INCIDENT ANALYST [address] [place] [address] PCP - Fonda Commercial 09/22/24 Installation Specialist Relationship Specialty Start Date End Date Unallocated, Chiara Pate MD [address] [place], [place] [address] [address] PCP - General Family Medicine 10/17/23 Edu Alvarez NP [address] [place] [address] PCP - Fonda Commercial 09/22/24 Installation Specialist Relationship Specialty Start Date End Date Unallocated, Chiara Pate MD [address] [place] [address] PCP - General Family Medicine 10/17/23 Edu Alvarez, CYBER INCIDENT ANALYST [address] [place] [address] PCP - Fonda Commercial 09/22/24 Installation Specialist Relationship Specialty Start Date End Date Unallocated, Chiara Pate MD [address] [place] [address] PCP - General Family Medicine 10/17/23 Edu Alvarez CYBER INCIDENT ANALYST [address] [place] [address] PCP - Fonda Commercial 09/22/24 Installation Specialist Relationship Specialty Start Date End Date Unallocated, Chiara Pate MD [address] [place] [address] PCP - General Family Medicine 10/17/23 Edu Alvarez, CYBER INCIDENT ANALYST [address] [place] [address] PCP - Fonda Commercial 09/22/24 INFORMATION SOURCE (unrecogn ized section and content) DATE CREATED AUTHOR 01/16/2022 [facility] DATE CREATED AUTHOR AUTHOR'S ORGANIZ ATION 10/18/2022 [facility] DATE CREATED AUTHOR AUTHOR'S ORGANIZ ATION 07/01/2024 [facility] DATE CREATED AUTHOR AUTHOR'S ORGANIZ ATION 04/02/2025 [facility] DATE CREATED AUTHOR AUTHOR'S ORGANIZ ATION 04/12/2025 [facility] dical Specialists EPIC Goals (unrecognized section [...] BE BASED ON THE PRIMARY CLINICAL RECORDS. [facility]. provides no warranty or guarantee of the accuracy or completeness of information in this document.
== END 2025-04-24 14:45 | disposition home or self-care (01) ==
LOC: LAB 14:44
PROVIDERS: Visit Provider Obstetrics & Gynecology
DX: Z34.93 Encounter for supervision of normal pregnancy, unspecified, third trimester (principal); Z3A.36 36 weeks gestation of pregnancy
CPT/HCPCS: 87081

== ENCOUNTER 2025-04-26 15:03 | Outpatient (OUT) | payer BC, SELFPAY ==
--- OUTSIDE RECORDS SUMMARY | 2024-04-12 04:45 | XMS_ITS | Continuity of Care Document ---
Author Organization [facility] [address] [facility] Address [address] [facility] [place] [address] Phone Care Team Providers Care Tunneling Machine Operator Name Role Phone Reena Breaux CNP Unavailable Procedures Procedure Date OFFICE/OUTPATIENT VISIT, EST OFFICE/OUTPATIENT VISIT, EST OFFICE/OUTPATIENT VISIT, EST OFFICE/OUTPATIENT VISIT, EST POSTOP FOLLOW-UP VISIT POSTOP FOLLOW-UP VISIT LAP SLEEVE GASTRECTOMY Sleeve Gastrectomy OFFICE/OUTPATIENT VISIT, EST PSYCH DIAGNOSTIC EVALUATION PSYCL/NRPSYC TST PHY/QHP 1ST PSYCL/NRPSYC TST PHY/QHP OFFICE/OUTPATIENT VISIT, [facility] Advance Directives Directive Yes / No Effective Date File Name No Information Encounters Encounter Description Practice Location Reason(s) For Visit Diagnoses Date Provider Providers Copied on Encounter OFFICE/OUTPATI ENT VISIT, [facility] [address] [facility], [address] [facility] [facility] [facility] [address], [place], [place], [address], [place] tel:[phone] [facility] No Information Saeid Valles. [address] [facility] [address], [place], [place], [address], [place]. tel:[phone] Referring Provider: Reena Breaux, [address] [facility] [address], [place], [address]. tel:[phone] OFFICE/OUTPATI ENT VISIT, [employer] [facility], [address] [place] [address] [address], [place], [place], [address], [place] tel:[phone] [place] [facility] No Information Saeid Valles. [address], [facility] [place], [address], [place]. tel:[phone] Referring Provider: Reena Breaux, [facility] [address], [place], [address]. tel:[phone] OFFICE/OUTPATI ENT VISIT, [employer] [facility], [address] [facility] [address], [place], [place], [address], [place] tel:[phone] [facility] No Information Saeid Valles. [address], [place], [place], [address], [place]. tel:[phone] Referring Provider: Reena Breaux, [facility] [address], [place], [address]. tel:[phone] [address] [facility], [address] [place] [address] [address], [place], [place], [address], [place] tel:[phone] [place] [facility] No Information Saeid Valles. [address], [place], [place], [address], [place]. tel:[phone] Referring Provider: Reena Breaux, [facility] [address], [place], [address]. tel:[phone] [facility], [address] [place] [address] [address], [place], [place], [address], [place] tel:[phone] [place] [facility] No Information Saeid Valles. [address], [place], [place], [address], [place]. tel:[phone] Referring Provider: Reena Breaux, [facility] [address], [place], [address]. tel:[phone] [place] [employer] [facility], [address] [place] [address] [address], [place], [place], [address], [place] tel:[phone] [facility] IP No Information Robert Mcmahon. [address] [facility] [address], [place], [place], [address], [place]. tel:[phone] Referring Provider: Lisandro Lieberman, [address] [facility] [address], [place], [address]. tel:[phone] [employer] [facility], [address] [place] [address] [address], [place], [place], [address], [place] tel:[phone] [facility] IP No Information Saeid Valles. [address] [facility] [address], [place], [place], [address], [place]. tel:[phone] Referring Provider: Reena Breaux, [address] [place] [address] [address], [place], [address]. tel:[phone] OFFICE/OUTPATI ENT VISIT, [facility] [employer] [facility], [address] [place] [address] [address], [place], [place], [address], [place] tel:[phone] [place] [facility] No Information Robert Mcmahon. [address] [facility] [address], [place], [place], [address], [place]. tel:[phone] Referring Provider: Lisandro Lieberman, [address] [facility] [address], [place], [address]. tel:[phone] PSYCH DIAGNOSTIC EVALUATION [facility] [facility], [address] [place] [address] [address], [place], [place], [address], [place] tel:[phone] [place] [facility] No Information Omari Beltran. [address] [facility] [address], [place], [place], [address], [place]. tel:[phone] Referring Provider: Ruby Salcido, [address] [place] [address] [address], [place], [address]. tel:[phone] OFFICE/OUTPATI ENT VISIT, [facility], [address] [facility] [facility] [address], [place], [place], [address], [place] tel:[phone] [facility] No Information Robert Mcmahon. [address] [facility] [address], [place], [place], [address], [place]. tel:[phone] Referring Provider: Lisandro Lieberman, [address] [facility] [address], [place], [address]. tel:[phone] Family History Family Member Type Diagnosis Age At Onset No Information Payers Payer name Insurance type Covered republican ID Bernice harley(gilmar) Capo [id number] Social History Type Description Quantity Date Captured [...]
--- OUTSIDE RECORDS SUMMARY | 2025-04-24 11:30 | XMS_ITS | Encounter Summary ---
Author Organization [facility] Address [address] [place] [address] Care Team Providers Care Plate Corrector Name Role Phone Unallocated, Noms Provider Primary Care Provi chrissy Amalia Bruce UNION REPRESENTATIVE Unavailable [phone] Reason for Visit * Reason Comments Routine Visit Encounter Details Date Type Department Care Team (Late st Contact Info) Description 04/24/2025 11:30 AM EDT Routine [facility] OBGYN [address] [place] [address] Roscoe Diaz DO [address] [facility] [address] Racheal Johnson, [facility] Third trimester ([facility]); 36 weeks gestation of ([facility]) Social History Tobacco Use Types Packs/Day Years [...] Sign Reading Time Taken Comments Blood Pressure 116/74 04/24/2025 11:50 AM EDT Pulse - - Temperature - - Respiratory Rate - - Oxygen Saturation - - Inhaled Oxygen Concentration - - Weight 95.3 kg (210 lb 1.9 oz) 04/24/2025 11:50 AM EDT Height - - Body Mass Index 37.22 07/25/2024 2:19 PM EST documented in this encounter Progress Notes * Samia King LPN - 04/24/2025 11:30 AM EDT Reason for Appointment: Patient ID: Caryl [...] nursing note reviewed. Exam conducted with a wet end tester present. Vitals: Estimated body mass index is 37.22 kg/m?? as calculated from the following: Height as of 07/25/24: 5' 3 . Weight as of this encounter: 210 lb 1.9 oz. BP: 116/74 Patient's last menstrual period was 08/12/2024. ASSESSMENT & PLAN ICD-10-CM 1. Third trimester ([facility]) Z34.93 POCT urinalysis dipstick manually resulted CULTURE, GROUP B STREP WITH SUSCEPTIBLITY CULTURE, GROUP B STREP WITH SUSCEPTIBLITY 2. 36 weeks gestation of ([facility]) Z3A.36 POCT urinalysis dipstick manually resulted Patient is doing well but has complaints of being tired and having maternal discomfort due to . Patient verbalized frequent movement and was instructed to perform kick counts three times per day. labor precautions were given, LARC consent was signed/declined, and GBS was obtained. Cervical check was performed and patient is 0cm dilated. Orders Placed This Encounter Procedures CULTURE, GROUP B STREP WITH SUSCEPTIBLITY POCT urinalysis dipstick manually resulted Follow Up: Patient is to return to office in 1 week for routine OB appointment Documented by Samia King LPN on behalf of: Roscoe Diaz DO documented in this encounter Plan of Treatment Upcoming Encounters Date Type Department Care Team (Late st Contact Info) Description 05/01/2025 9:20 AM EDT Routine [facility] [address] [place] [address] Rosy Barton PA [address] [place] [address] Scheduled Orders Name Type Priority Associated Diagnoses Orde r Schedule CULTURE, GROUP B STREP WITH SUSCEPTIBLITY Lab Routine Third trimester ([facility]) Expected: 04/24/2025, Expires: 04/24/2026 documented as of this encounter Goals Goal Patient Goal Type Associated Problems Recent Progress Patient-Stated? Author Reminders Care Plan OB Reminders No Open Scheduling, Background documented as of this encounter Procedures Procedure Name Priority Date/Time Associated Diagnosis Comments POCT URINALYSIS DIPSTICK Routine 04/24/2025 11:56 AM EDT Third trimester ([facility]) 36 weeks gestation of ([facility]) documented in this encounter Results * POCT urinalysis dipstick manually resulted (04/24/2025 11:56 AM EDT) Color, UA Yellow Clarity, UA Clear Glucose, UA Negative Negative - 2000(110) ++++ mg/dL Bilirubin, UA Negative Negative - 4(70) +++ mg/dL Ketones, UA Negative Negative - 160(16) ++++ mg/dL Spec Grav, UA 1.020 1 - 1.03 Blood, UA Negative Negative - 50 Iraj/mcL pH, UA 6.0 5 - 9 Protein, UA Negative Negative - 2000(20) ++++ mg/dL Urobilinogen, UA 1.0 0.2 - 12 mg/dL Leukocytes, UA Negative Negative - 500+++ Mari/mcL Nitrite, UA Negative Negative - Positive Urine 04/24/2025 11:5 6 AM EDT Roscoe Diaz DO POINT OF CARE TEST ENTER/EDIT OR DERABLES Final Result documented in this encounter Visit Diagnoses Diagnosis Third trimester ([facility]) state, incidental 36 weeks gestation of ([facility]) documented in this encounter Additional Health Concerns Active Problems Noted Date Diagnosed Date OB Reminders 10/19/2024 documented as of this encounter Care Teams Plate Corrector Relationship Specialty Start Date End Date Unallocated, Noms Provider, [address] [place] [address] PCP - General Family Medicine 10/17/23 Amalia Bruce, TONIA [address] [place] [address] PCP - [facility] 09/22/24 documented as of this encounter
--- OUTSIDE RECORDS SUMMARY | 2025-04-26 15:06 | XMS_ITS | Encounter Summary ---
Author Organization [facility] tem Address [id number] [address] [place] [address] Care Team Providers Care Educational Director Name Role Phone Unavailable Primary Care Provider Unavailabl e Encounter Details Date Type Department Care Team (Late Contact Info) Description 04/15/2025 Telephone Maternal- Medicine at [facility] [address] [facility] [place] [id number] Beulah Miller, RN Social History Tobacco Use [...] 9:30 AM EDT Telemedicine Maternal- Medicine at [facility] [address] [place] [address] Marilia Dillon, ELECTRICIAN'S HELPER-ESCORT CAR DRIVER [address] [place] [address] documented as of this encounter Visit Diagnoses Not on filedocumented in this encounter
--- OUTSIDE RECORDS SUMMARY | 2025-04-26 15:06 | XMS_ITS | Encounter Summary ---
Author Organization [facility] Address [address] [place] [address] Care Team Providers Care Explosive Ordnance Manager Name Role Phone Unallocated, Noms Provider Primary Care Provi chrissy Amalia Bruce STRIKER OUT Unavailable [phone] Encounter Details Date Type Department Care Team [...] AM EDT Routine [facility] [address] [facility] [place] [id number] Rosy [place] PA [address] [facility] [address] [place], [place] [id number] documented as of this encounter Goals Goal Patient Goal Type Associated Problems Recent Progress Patient-Stated? Author Reminders Care Plan OB Reminders No Open Scheduling, Background documented as of this encounter Visit Diagnoses Not on filedocumented in this encounter Additional Health Concerns Active Problems Noted Date Diagnosed Date OB Reminders 10/19/2024 documented as of this encounter Care Teams Explosive Ordnance Manager Relationship Specialty Start Date End Date Unallocated, Noms Provider, [address] [place] [address] PCP - General Family Medicine 10/17/23 Amalia Bruce, TONIA [address] [place] [address] PCP - Capo Wild 09/22/24 documented as of this encounter
--- OUTSIDE RECORDS SUMMARY | 2025-04-26 15:06 | XMS_ITS | Encounter Summary ---
Author Organization [facility] Address [address] [place] [address] Care Team Providers Care Curriculum Development Manager Name Role Phone Dasha Lujan MD Primary Care Provider Sonia Dickerson SATELLITE DISH TECHNICIAN.RUGBY UNION FOOTBALLER Unavailable Fatimah Geiger SATELLITE DISH TECHNICIAN.RUGBY UNION FOOTBALLER Unavailable Ruth Richardson SATELLITE DISH TECHNICIAN.RUGBY UNION FOOTBALLER Unavailable [phone] Berenice Rivas APRN.RUGBY UNION FOOTBALLER Unavailable Zarina Pope PA-C Unavailable Source Comments In the event this information is protected by the Federal Confidentiality of Alcohol and Drug AbusePatient Records regulations: The Federal rules restrict any use of the information to criminally investigate or prosecute any alcohol or drug abuse patient.[facility] Encounter Details Date Type Department Care Team (Late st Contact Info) Description 06/18/2024 Patient Msg Internal Medicine [address] [place] [address] Berenice Rivas APRN.RUGBY UNION FOOTBALLER [address] [place] [address] Appointment Request Social History Tobacco Use Types Packs/Day Years Used Date Smoking Tobacco: Never Smokeless Tobacco: Never Alcohol Use Standard Drinks/Week Comments Yes 1.3 (1 standard drink = 0.6 oz p ure alcohol) occ. drink [facility] Utilities Answer Date Recorded In the past 12 months has th e electric, gas, oil, or water [employer] threatened to shut off services in your [...] often do you attend chur ch or mandaen services? Never 07/19/2023 Do you belong to any clubs o r organizations such as latter-day groups, unions, fraternal or athletic groups, or [...] Answer Date Recorded PHQ-2 score 0 07/22/2023 [facility] [place] of Occupat ional Health - Occupational Stress [...] is lower risk 8 07/19/2023 Data from: https://www.neighborhoodatlas.medicine.[facility].edu/. Last address used for calculation [address] [...] on filedocumented in this encounter Care Teams Curriculum Development Manager Relationship Specialty [place] [address] [place] [address] PCP - General Internal Medicine 01/11/22 Sonia Dickerson, SATELLITE DISH TECHNICIAN.RUGBY UNION FOOTBALLER [address] [place] [address] Tool And Production Planner Internal Medicine 07/30/24 08/29/24 Fatimah Geiger, SATELLITE DISH TECHNICIAN.RUGBY UNION FOOTBALLER [address] [place] [address] Tool And Production Planner Internal Medicine 07/30/24 Ruth Richardson, SATELLITE DISH TECHNICIAN.RUGBY UNION FOOTBALLER [address] [place] [address] [facility] Internal Medicine 07/30/24 08/29/24 Berenice Rivas, SATELLITE DISH TECHNICIAN.RUGBY UNION FOOTBALLER [address] [place] [address] [facility] Internal Medicine 07/30/24 08/29/24 Zarina Pope PA-C [address] [place] [address] Tool And Production Planner Internal Medicine 07/30/24 08/29/24 documented as of this encounter
--- OUTSIDE RECORDS SUMMARY | 2025-04-26 15:06 | XMS_ITS | Encounter Summary ---
Author Organization [facility] Address [address] [place] [address] Care Team Providers Care Healthcare Analyst Name Role Phone Unallocated, Noms Provider Primary Care Provi chrissy Amalia Bruce JUMPBASTING ARMHOLE BASTER Unavailable [phone] Encounter Details Date Type Department Care Team (Late st Contact Info) Description 02/04/2025 Results Follow-Up CHIARA Johnson OBGYLee [address] [place] [address] Monika Mesa LPN [address] [employer] [place] [id number] ALL CBC WITH AUTO DIFF, GLUCOSE 1 [...] AM EDT Routine CHIARA Johnson OBGYN [address] [place] [address] Rosy [place] PA [address] [facility] [place] [address] documented as of this encounter Goals Goal Patient Goal Type Associated Problems Recent Progress Patient-Stated? Author Reminders Care Plan OB Reminders No Open Scheduling, Background documented as of this encounter Visit Diagnoses Not on filedocumented in this encounter Additional Health Concerns Active Problems Noted Date Diagnosed Date OB Reminders 10/19/2024 documented as of this encounter Care Teams Healthcare Analyst Relationship Specialty Start Date End Date Unallocated, Nomgilmar Pate MD [address] [place] [address] PCP - General Family Medicine 10/17/23 Amalia Bruce, TONIA [address] [place] [address] PCP - Capo Wild 09/22/24 documented as of this encounter
--- OUTSIDE RECORDS SUMMARY | 2025-04-26 15:06 | XMS_ITS | Encounter Summary ---
Author Organization [facility] Address [address] [place] [address] Care Team Providers Care Medical Program Specialist Name Role Phone Dasha Lujan MD Primary Care Provider Sonia Dickerson SHOT TUBE MACHINE TENDER.NET LEAD ARCHITECT Unavailable Fatimah Geiger SHOT TUBE MACHINE TENDER.NET LEAD ARCHITECT Unavailable [phone] Ruth Richardson SHOT TUBE MACHINE TENDER.NET LEAD ARCHITECT Unavailable Berenice Rivas APRN.NET LEAD ARCHITECT Unavailable Zarina Pope PA-C Unavailable [phone] Source Comments In the event this information is protected by the Federal Confidentiality of Alcohol and Drug AbusePatient Records regulations: The Federal rules restrict any use of the information to criminally investigate or prosecute any alcohol or drug abuse patient.[facility] Encounter Details Date Type Department Care Team (Late st Contact Info) Description 06/12/2024 Patient Msg Internal Medicine [address] [place] [address] Berenice Rivas APRN.NET LEAD ARCHITECT [address] [place] [address] Appointment Request Social History Tobacco Use Types Packs/Day Years Used Date Smoking Tobacco: Never Smokeless Tobacco: Never Alcohol Use Standard Drinks/Week Comments Yes 1.3 (1 standard drink = 0.6 oz p ure alcohol) occ. drink [facility] Utilities Answer Date Recorded In the past 12 months has th e electric, gas, oil, or water [employer] threatened to shut off services in your [...] often do you attend chur ch or spiritism services? Never 07/19/2023 Do you belong to [...] Answer Date Recorded PHQ-2 score 0 07/22/2023 [facility] [place] of Occupat ional Health - Occupational [...] place to sleep or slept in a correction (including now)? No 07/19/2023 Area Deprivation Index [...] on filedocumented in this encounter Care Teams Medical Program Specialist Relationship Specialty [place] [address] [place] [address] PCP - General Internal Medicine 01/11/22 Sonia Dickerson, SHOT TUBE MACHINE TENDER.NET LEAD ARCHITECT [address] [place] [address] Crust Sorter Internal Medicine 07/30/24 08/29/24 Fatimah Geiger, SHOT TUBE MACHINE TENDER.NET LEAD ARCHITECT [address] [place] [address] Crust Sorter Internal Medicine 07/30/24 Ruth Richardson, SHOT TUBE MACHINE TENDER.NET LEAD ARCHITECT [address] [place] [address] [facility] Internal Medicine 07/30/24 08/29/24 Berenice Rivas, SHOT TUBE MACHINE TENDER.NET LEAD ARCHITECT [address] [place] [address] [facility] Internal Medicine 07/30/24 08/29/24 Zarina Pope PA-C [address] [place] [address] Crust Sorter Internal Medicine 07/30/24 08/29/24 documented as of this encounter
--- OUTSIDE RECORDS SUMMARY | 2025-04-26 15:06 | XMS_ITS | Encounter Summary ---
Author Organization [facility] Address [address] [place] [address] Care Team Providers Care As400 Developer Name Role Phone Unallocated, Noms Provider Primary Care Provi chrissy Amalia Bruce DEPARTMENT MGR Unavailable [phone] Reason for Visit * Reason Onset Date Comments Med Refill 10/23/2024 Encounter Details Date Type Department Care Team (Late Contact Info) Description 10/23/2024 Refill [facility] [address] [facility] [address] [place] [address] Unallocated, Noms Provider, [address] [place] [address] Social History Tobacco Use Types Packs/Day Years [...] AM EDT Routine [facility] [address] [place] [address] Rosy Barton PA [address] [place] [address] documented as of this encounter Goals Goal Patient Goal Type Associated Problems Recent Progress Patient-Stated? Author Reminders Care Plan OB Reminders No Open Scheduling, Background documented as of this encounter Visit Diagnoses Not on filedocumented in this encounter Additional Health Concerns Active Problems Noted Date Diagnosed Date OB Reminders 10/19/2024 documented as of this encounter Care Teams As400 Developer Relationship Specialty Start Date End Date Unallocated, Noms Provider, [address] [place] [address] PCP - General Family Medicine 10/17/23 Amalia Bruce, TONIA [address] [place] [address] PCP - Capo Wild 09/22/24 documented as of this encounter
--- OUTSIDE RECORDS SUMMARY | 2025-04-26 15:06 | XMS_ITS | Encounter Summary ---
Author Organization [facility] tem Address [facility]-[id number] [address] [place] [address] Care Team Providers Care National Business Director Name Role Phone Unavailable Primary Care Provider Unavailabl e Encounter Details Date Type Department Care Team (Late st Contact Info) Description 02/07/2025 Orders Only Maternal- Medicine at [facility] [address] [place] [phone] Ref Prov, [place] [address] Social History Tobacco Use Types Packs/Day Years [...] AM EDT Telemedicine Maternal- Medicine at [facility] [address] [place] [phone] Marilia Dillon, MANAGER WELDING-DANCE TEACHER [address] [place] [address] documented as of this encounter Procedures Procedure [...]
--- OUTSIDE RECORDS SUMMARY | 2025-04-26 15:06 | XMS_ITS | Encounter Summary ---
Author Organization [facility] Address [facility] [place] [address] Care Team Providers Care Retail Planning Manager Name Role Phone Dasha Lujan MD Primary Care Provider Sonia Dickerson ESL PROFESSOR.FIRE CONTROL SYSTEM INSTALLER Unavailable Fatimah Geiger ESL PROFESSOR.FIRE CONTROL SYSTEM INSTALLER Unavailable Ruth Richardson ESL PROFESSOR.FIRE CONTROL SYSTEM INSTALLER Unavailable [phone] Berenice Rivas ESL PROFESSOR.FIRE CONTROL SYSTEM INSTALLER Unavailable Zarina Pope-C Unavailable Source Comments In the event this information is protected by the Federal Confidentiality of Alcohol and Drug AbusePatient Records regulations: The Federal rules restrict any use of the information to criminally investigate or prosecute any alcohol or drug abuse patient.[facility] Encounter Details Date Type Department Care Team (Late st Contact Info) Description 06/21/2023 Patient Msg Internal Medicine [address] [place] [address] Provider, Ccf APPOINTMENT CANCELED Social History Tobacco [...] How often do you attend chur or mandaen services? Never 01/12/2022 Do you belong to [...] Answer Date Recorded PHQ-2 score 0 01/12/2022 [facility] of Occupat ional Health - Occupational Stress [...] slept in a residential (including now)? No 06/29/2022 Area Deprivation Index Answer Date Vern rded National Score (1-100), lower number is lower ri sk 70 09/03/2022 State Score (1-10), lower number is lower risk N ot on file 09/03/2022 Data from: https://www.neighborhoodatlas.medicine.[facility].edu/. Last address used for calculation Tari Tanner [...] on filedocumented in this encounter Care Teams Retail Planning Manager Relationship Specialty [place] [address] [place], [place] [phone] PCP - General Internal Medicine 01/11/22 Sonia Dickerson APRN.CNP [address] [place] [address] Engineering Production Liaison Internal Medicine 07/30/24 08/29/24 Fatimah Geiger, ESL PROFESSOR.FIRE CONTROL SYSTEM INSTALLER [address] [place] [address] [facility] Internal Medicine 07/30/24 Ruth Richardson APRN.FIRE CONTROL SYSTEM INSTALLER [address] [place] [address] [facility] Internal Medicine 07/30/24 08/29/24 Berenice Rivas, ESL PROFESSOR.FIRE CONTROL SYSTEM INSTALLER [address] [place] [address] [facility] Internal Medicine 07/30/24 08/29/24 Zarina Pope PA-C [address] [place] [address] [facility] Internal Medicine 07/30/24 08/29/24 documented as of this encounter
--- OUTSIDE RECORDS SUMMARY | 2025-04-26 15:06 | XMS_ITS | Encounter Summary ---
Author Organization [facility] Address [address] [place] [address] Care Team Providers Care Human Resources Administrator Name Role Phone Dasha Lujan MD Primary Care Provider Sonia Dickerson ATMOSPHERIC TECHNICIAN.ASSOCIATE PROFESSOR OF LITERACY Unavailable Fatimah Geiger ATMOSPHERIC TECHNICIAN.ASSOCIATE PROFESSOR OF LITERACY Unavailable Ruth Richardson ATMOSPHERIC TECHNICIAN.ASSOCIATE PROFESSOR OF LITERACY Unavailable Berenice Rivas APRN.ASSOCIATE PROFESSOR OF LITERACY Unavailable Zarina Pope PA-C Unavailable Source Comments In the event this information is protected by the Federal Confidentiality of Alcohol and Drug AbusePatient Records regulations: The Federal rules restrict any use of the information to criminally investigate or prosecute any alcohol or drug abuse patient.[facility] Encounter Details Date Type Department Care Team (Late st Contact Info) Description 06/18/2024 Patient Msg Internal Medicine [address] [place] [address] Berenice Rivas APRN.ASSOCIATE PROFESSOR OF LITERACY [address] [place] [address] Appointment Request Social History Tobacco Use Types Packs/Day Years Used Date Smoking Tobacco: Never Smokeless Tobacco: Never Alcohol Use Standard Drinks/Week Comments Yes 1.3 (1 standard drink = 0.6 oz p ure alcohol) occ. drink [facility] Utilities Answer Date Recorded In the past 12 months has th e electric, gas, oil, or water Evgen threatened to shut off services in your [...] Answer Date Recorded PHQ-2 score 0 07/22/2023 [facility] of Occupat ional Health - Occupational Stress [...] place to sleep or slept in a jail (including now)? No 07/19/2023 Area Deprivation Index Answer Date Vern rded National Score (1-100), lower number is lower ri sk 90 07/19/2023 State Score (1-10), lower number is lower risk 8 07/19/2023 Data from: https://www.neighborhoodatlas.medicine.[facility].edu/. Last address used for calculation [address] [...] on filedocumented in this encounter Care Teams Human Resources Administrator Relationship Specialty [place] [address] [place] [address] PCP - General Internal Medicine 01/11/22 Sonia Dickerson, ATMOSPHERIC TECHNICIAN.ASSOCIATE PROFESSOR OF LITERACY [address] [place] [address] Cup Machine Operator Internal Medicine 07/30/24 08/29/24 Fatimah Geiger, ATMOSPHERIC TECHNICIAN.ASSOCIATE PROFESSOR OF LITERACY [address] [place] [address] Cup Machine Operator Internal Medicine 07/30/24 Ruth Richardson, ATMOSPHERIC TECHNICIAN.ASSOCIATE PROFESSOR OF LITERACY [address] [place] [address] [facility] Internal Medicine 07/30/24 08/29/24 Berenice Rivas, ATMOSPHERIC TECHNICIAN.ASSOCIATE PROFESSOR OF LITERACY [address] [place] [address] [facility] Internal Medicine 07/30/24 08/29/24 Zarina Pope PA-C [address] [place] [address] Cup Machine Operator Internal Medicine 07/30/24 08/29/24 documented as of this encounter
--- OUTSIDE RECORDS SUMMARY | 2025-04-26 15:06 | XMS_ITS | Encounter Summary ---
Author Organization [facility] tem Address [facility]-[id number] [address] [place] [address] Care Team Providers Care Dietary Supervisor Name Role Phone Unavailable Primary Care Provider Unavailabl e Encounter Details Date Type Department Care Team (Late st Contact Info) Description 04/23/2025 Telephone Maternal- Medicine at [facility] [address] [place] [phone] Devika Pope, JOEL [address] [place] [address] Social History Tobacco Use Types Packs/Day Years [...] 9:30 AM EDT Telemedicine Maternal- Medicine at [facility] [address] [place] [address] Marilia Dillon, DENTAL CREAM MAKER-CAKE DECORATOR [address] [place] [address] documented as of this encounter Visit Diagnoses Not on filedocumented in this encounter
--- OUTSIDE RECORDS SUMMARY | 2025-04-26 15:06 | XMS_ITS | Encounter Summary ---
Author Organization [facility] Address [address] [place] [address] Care Team Providers Care Take Up Operator Name Role Phone Unallocated, Noms Provider Primary Care Provi chrissy Amalia Bruce HAND SEWER Unavailable [phone] Encounter Details Date Type Department Care Team (Late Contact Info) Description 01/09/2025 Abstract [facility] [address] [facility] [place] [address] Roscoe Diaz DO [address] [facility] [place] [address] Social History Tobacco Use Types Packs/Day Years [...] 9:20 AM EDT Routine [facility] [address] [facility] [address] Rosy Barton PA [address] [facility] [facility] [place] [address] documented as of this encounter Goals Goal Patient Goal Type Associated Problems Recent Progress Patient-Stated? Author Reminders Care Plan OB Reminders No Open Scheduling, Background documented as of this encounter Visit Diagnoses Not on filedocumented in this encounter Additional Health Concerns Active Problems Noted Date Diagnosed Date OB Reminders 10/19/2024 documented as of this encounter Care Teams Take Up Operator Relationship Specialty Start Date End Date Unallocated, Noms Herlinda, [address] [place] [address] PCP - General Family Medicine 10/17/23 Amalia Bruce NP [address] [place] [address] PCP - Capo Wild 09/22/24 documented as of this encounter
--- OUTSIDE RECORDS SUMMARY | 2025-04-26 15:06 | XMS_ITS | Clinical Summary ---
Author Organization [facility] Address [address] [place] [address] Care Team Providers Care Scrap Separator Name Role Phone Unallocated, Noms Provider Primary Care Provi chrissy Amalia Bruce PIE FILLER Unavailable [phone] Allergies No known active allergies Medications omeprazole OTC (PriLOSEC OTC) 20 MG EC tablet Take 20 mg by mouth in the morning. Take before meals. Do not crush, chew, or split.. Active Vit-Fe Fumarate-FA ( 19) 29-1 MG chewable tabletIndication s:, unspecified gestational age ([facility]) Chew 1 each Daily 30 tablet 11 5 Active Alcohol Swabs (Alcohol Prep Pad) 70 % padsIndications: Gestational diabetes mellitus (GDM), antepartum, gestational diabetes method of control unspecified ([facility]),Elevat ed glucose tolerance test Apply 1 Pad topically Daily Use four times daily to check FSBS. 150 each 3 5 Active Blood Glucose Monitoring Suppl (D-Care Glucometer) w/Device kitIndications:G estational diabetes mellitus (GDM), antepartum, gestational diabetes method of control unspecified ([facility]),Elevat ed glucose tolerance test 1 kit Daily [...] 11:30 [place] [address] Roscoe Diaz, Third trimester ([facility]); 36 weeks gestation of ([facility]) 04/24/2025 [place] [address] Roscoe Diaz, 04/23/2025 Clinisync Result Encounter NOMS External Department Unsolicited Rosy Quiroz PA 04/17/2025 Travel 04/15/2025 Clinisync Result Encounter NOMS External Department Unsolicited Rosy Quiroz PA 04/10/2025 3:00 [place] [address] Roscoe Diaz DO 34 weeks gestation of ([facility]); Third trimester ([facility]); H/O gastric sleeve; Insulin controlled gestational diabetes mellitus (GDM) during , antepartum ([facility]) 04/10/2025 [place] [address] Roscoe Diaz, 04/08/2025 10:00 AM EDT [place] [address] H/O gastric sleeve 04/08/2025 Clinisync Result Encounter [facility]OMS External Department Unsolicited Rosy Quiroz PA 04/06/2025 Travel 04/05/2025 [place] [address] Monika Mesa LPN 04/01/2025 Clinisync Result Encounter NOMS External Department Unsolicited Rosy Quiroz PA 03/28/2025 Telephone [facility] SILVAGYLee [address] [place] [address] Jes Garza MA 03/27/2025 2:00 PM EDT Routine [facility] SILVAGYN Marisela [facility] [place] [address] Roscoe Diaz DO Third trimester ([facility]); H/O gastric sleeve; Gestational diabetes mellitus (GDM), antepartum, gestational diabetes method of control unspecified ([facility]); 32 weeks gestation of ([facility]) 03/27/2025 [place] [address] Roscoe Diaz DO 03/27/2025 Travel 03/13/2025 3:50 PM EDT Routine [facility] [place] [address] [address] Rosy Quiroz PA 30 weeks gestation of ([facility]); Third trimester ([facility]); H/O gastric sleeve; Gestational diabetes mellitus (GDM), antepartum, gestational diabetes method of control unspecified ([facility]) 03/13/2025 Bamboo flowsheet [facility] [address] [place] [address] Rosy Quiroz PA 03/10/2025 Travel 02/27/2025 1:40 PM EDT Routine [facility] SILVAGYN [address] [place] [address] Roscoe Diaz DO 28 weeks gestation of ([facility]); Third trimester ([facility]); H/O gastric sleeve; Gestational diabetes mellitus (GDM), antepartum, gestational diabetes method of control unspecified ([facility]) 02/27/2025 1:00 PM EDT [place] [address] H/O gastric sleeve 02/26/2025 Travel 02/11/2025 11:30 [place] [address] Rosy Quiroz PA Second trimester ([facility]); 26 weeks gestation of ([facility]); H/O gastric sleeve 02/11/2025 Travel 02/06/2025 [place] [address] Roscoe Diaz, DO 02/04/2025 [place] [address] Monika Mesa LPN 02/04/2025 Results [place] [address] Monika Mesa, GOLF SALES ASSOCIATE ALL CBC WITH AUTO DIFF, GLUCOSE 1 HOUR 02/01/2025 [place] [address] Ana Costello MA 02/01/2025 Clinisync Result Encounter NOMS External Department Unsolicited Roscoe Diaz, DO 01/30/2025 1:00 PM EDT [place] [phone] Encounter for follow-up ultrasound of anatomy ([facility]) 01/27/2025 Travel from Last 3 Months [...] AM EDT Routine [facility] [address] [place] [address] Rosy Quiroz PA [address] [facility] [address] [facility] [place] [address] Health Maintenance Due Date Last Done Comments HPV/Cotest 2022 Influenza Vaccine (#1) 2025 Cervical Cancer Screening 12/11/2027 Pap Smear 12/11/2027 12/10/2024 Goals Goal Patient Goal Type Associated Problems Recent Progress Patient-Stated? Author Reminders Care Plan OB Reminders No Open Scheduling, Background Procedures Procedure Name Priority Date/Time Associated Diagnosis Comments POCT URINALYSIS DIPSTICK Routine 04/24/2025 11:56 AM EDT Third trimester ([facility]) 36 weeks gestation of ([facility]) US OB BPP W NON-STRESS 04/23/2025 4:35 [...] Routine 03/27/2025 2:49 PM EDT Third trimester ([facility]) H/O gastric sleeve Gestational diabetes mellitus (GDM), antepartum, gestational diabetes method of control unspecified ([facility]) 32 weeks gestation of ([facility]) POCT URINALYSIS DIPSTICK Routine 03/13/2025 3:46 PM EDT 30 weeks gestation of ([facility]) Third trimester ([facility]) POCT URINALYSIS DIPSTICK Routine 02/27/2025 2:04 PM EDT 28 weeks gestation of ([facility]) Third trimester ([facility]) US OB FOLLOW UP TRANSABDOMINAL APPROACH Routine 02/27/2025 1:40 PM EDT H/O gastric sleeve POCT URINALYSIS DIPSTICK Routine 02/11/2025 11:50 AM EDT Second trimester ([facility]) GLUCOSE 1 HOUR Routine 02/01/2025 9:28 AM EDT ALL CBC WITH AUTO DIFF Routine 9:28 AM EDT US OB LIMITED 1+ FETUSES Routine 01/30/2025 1:20 PM EDT Encounter for follow-up ultrasound of anatomy ([facility]) PAP SMEAR Routine 12/10/2024 12:00 AM EDT [...] 04/24/2025 11:5 6 AM EDT us Roscoe Jeo DO POINT OF CARE TEST ENTER/EDIT OR DERABLES Final Result * US OB BPP W NON-STRESS (04/23/2025 4:35 PM EDT) Only the most recent of4 resultswithin the time period is included. Anatomical Region Laterality Modality Other 04/23/2025 4:35 PM EDT Narrative 04/23/2025 4:37 PM EDT The [address] [address] Ultrasound Report Signed Patient: TRUDI ZAMARRIPA MR#: [id number] : 1990 Acct:[id number] Age/Sex: 34 / F ADM Date: 04/23/25 Loc: [facility] 250-[address]: Rosy Quiroz Ordering Physician: Rosy Quiroz Date of Service: 04/23/25 Procedure(s): US OB BPP w non-stress Accession Number(s): [id number] cc: Rosy Quiroz; Physician,Non-Staff M.DCharisse The [place] [address] Patient Name: TRUDI ZAMARRIPA MRN: [facility]:[id number] date: 1990 Sex: F Assigned Patient Location: US Current Patient Location: US Accession/Order Number: [id number] Exam Date: 04/23/2025 16:03 Report Date: 04/23/2025 16:35 At the request of: ROSY QUIROZ Procedure: US OB BPP w non-stress Biophysical profile. Reason for exam: History of gastric sleeve surgery COMPARISON: 04/15/2025 TECHNIQUE: Transabdominal imaging of the gravid uterus was obtained. FINDINGS: The business functional analyst reports a BPP of 8 out of 8. HELLEN is normal at 11.5 cm. heart rate 135 bpm. US/US OB BPP w non-stress IMPRESSION: BPP 8 out of 8. Impression dictated by: Cy Jensen Jr., D.O. 04/23/2025 4:35 PM Dictation Location: [place] [address] Electronically authenticated by: [id number] Y Date: 04/23/2025 16:35 Dictated By: Cy Jensen M.D. Signed By: 04/23/25 1637 DD/ 163 TD/TT: Foxer: Procedure Note Radiology, Radiologist, - 04/23/2025 [place] [address] Ultrasound Report Signed Patient: TRUDI ZAMARRIPA JMR#: [id number] : 1990Acct:[id number] Age/Sex: 34 / FADM Date: 04/23/25 Loc: [place] [address]-[address]: Rosy Quiroz Ordering Physician: Rosy Quiroz Date of Service: 04/23/25 Procedure(s): US OB BPP w non-stress Accession Number(s): [id number] cc: Rosy Quiroz; Physician,Non-Staff [place] [id number] Patient Name: TRUDI ZAMARRIPA MRN: [facility]:[id number] date: 1990 Sex: F Assigned Patient Location: US Current Patient Location: US Accession/Order Number: [id number] Exam Date: 04/23/2025 16:03 Report Date: 04/23/2025 16:35 At the request of: ROSY QUIROZ Procedure: US OB BPP w non-stress Biophysical profile. Reason for exam: History of gastric sleeve surgery COMPARISON: 04/15/2025 TECHNIQUE: Transabdominal imaging of the gravid uterus was obtained. FINDINGS: The business functional analyst reports a BPP of 8 out of 8. HELLEN is normal at11.5 cm. heart rate 135 bpm. US/US OB BPP w non-stress IMPRESSION: BPP 8 out of 8. Impression dictated by: Cy Jensen Jr., D.O. 04/23/2025 4:35 PM Dictation Location: [place] [address] Electronically authenticated by: [id number] Y Date: 6:35 Dictated By: Cy Jensen M.D. Signed By:04/23/25 1637 DD/ 1635 TD/TT: Foxer: us Rosy KRUGER [facility] Final Result [...] II, MD, PHD at 09-Apr-2025 07:59:18 AM [facility] Procedure Note Brittany Sebastian MD - [...] signed by BRITTANY SEBASTIAN II, MD, PHD [id number] 07:59:18 AM [facility] us Roscoe Joe DO IMG OB US PROCEDURES Final Resul t * (ABNORMAL) GLUCOSE 1 HOUR (02/01/2025 9:28 AM EDT) GLUCOSE 1 HOUR 198(H) <130 mg/dL TBH 02/01/2025 9:28 AM EDT 02/01/2025 9:30 AM EDT Narrative [facility] - 02/01/2025 11:36 AM EDT us Roscoe Joe DO LAB BLOOD ORDERABLES Final Resul t CLINISYWI TB * (ABNORMAL) ALL CBC WITH AUTO [...] Roscoe Joe DO [facility] Final Result [facility] * US OB limited 1+ fetuses (01/30/2025 [...] II, MD, PHD at 01-Feb-2025 10:22:21 AM [facility] Procedure Note Brittany Sebastian MD - [...] signed by BRITTANY SEBASTIAN II, MD, PHD [id number] 10:22:21 AM [facility] us Roscoe Diaz DO IMG OB US PROCEDURES Final Resul t * Pap Smear (12/10/2024 12:00 AM EDT) Swab Cervical swab / Unknown Joe Nurse Noms Bcp Ob LAB CYTOLOGY ORDERABLES Final Result EXTERNAL LAB from Last 3 Months or Most Recently Relevant to Health Maintenance Additional Health Concerns Active Problems Noted Date Diagnosed Date OB Reminders 10/19/2024 Insurance Care Teams Scrap Separator Relationship Specialty Start Date End Date Unallocated, Noms Provider[place] [address] PCP - General Family Medicine 10/17/23 Amalia Bruce NP [address] [place] [address] PCP - Capo [facility] 09/22/24
--- OUTSIDE RECORDS SUMMARY | 2025-04-26 15:06 | XMS_ITS | Encounter Summary ---
Author Organization [facility] Address [address] [place] [address] Care Team Providers Care Bricklayer Paving Brick Name Role Phone Unallocated, Noms Provider Primary Care Provi chrissy Amalia Bruce [facility] Unavailable [phone] Encounter Details Date Type Department Care Team (Late Contact Info) Description 02/06/2025 Abstract [facility] [address] [facility] [place] [address] Roscoe Diaz DO [address] [facility] [place] [address] Social History Tobacco Use Types Packs/Day Years [...] 9:20 AM EDT Routine [facility] [address] [facility] [place] [address] Rosy Barton PA [address] [facility] [place] [address] documented as of this encounter Goals Goal Patient Goal Type Associated Problems Recent Progress Patient-Stated? Author Reminders Care Plan OB Reminders No Open Scheduling, Background documented as of this encounter Visit Diagnoses Not on filedocumented in this encounter Additional Health Concerns Active Problems Noted Date Diagnosed Date OB Reminders 10/19/2024 documented as of this encounter Care Teams Bricklayer Paving Brick Relationship Specialty Start Date End Date Unallocated, Noms Herlinda, [address] [place] [address] PCP - General Family Medicine 10/17/23 Amalia Bruce NP [address] [place] [address] PCP - Capo Wild 09/22/24 documented as of this encounter
--- OUTSIDE RECORDS SUMMARY | 2025-04-26 15:06 | XMS_ITS | Clinical Summary ---
Author Organization [facility] tem Address [id number] [address] [place] [address] Care Team Providers Care Foiling Machine Adjuster Name Role Phone Unavailable Primary Care Provider Unavailabl e Allergies No known active allergies Medications 25-IRON MUG-RCMUI-EHB ORAL Take 1 tablet by mouth in [...] [facility] [address] [place] [address] Devika Pope LD 04/15/2025 Telephone Maternal- Medicine at [facility] [address] [place] [address] Beulah Miller, KARISSA 04/09/2025 Telephone Maternal- Medicine at [facility] [address] [place] [address] Devika Pope, JOEL 04/01/2025 10:00 AM EDT Telemedicine Maternal- Medicine at [facility] [address] [place] [address] Daisha Morel PA-C Gestational diabetes requiring insulin (Primary Dx) 04/01/2025 Telephone Maternal- Medicine at [facility] [address] [place] [address] Blanquita Toney, KARISSA 04/01/2025 Travel 04/01/2025 Telephone Maternal- Medicine at [facility] [address] [place] [address] Blanquita Toney, KARISSA 03/26/2025 Telephone Maternal- Medicine at [facility] [address] [place] [address] Devika Pope, JOEL 03/19/2025 Telephone Maternal- Medicine at [facility] [address] [place] [address] Fatimah Ball LD 03/12/2025 1:30 PM EDT Office Visit Maternal- Medicine at [facility] [address] [place] [address] Daisha Morel, PA-C Gestational diabetes mellitus (GDM) in second trimester, gestational diabetes method of control unspecified (Primary Dx); Gestational diabetes requiring insulin 03/12/2025 Travel 03/05/2025 Telephone Maternal- Medicine at [facility] [address] [place] [address] Devika Pope LD 02/26/2025 Telephone Maternal- Medicine at [place] [address] [place] [address] Devika Pope LD 02/14/2025 1:30 PM EDT Support Visit Maternal- Medicine at [address] [phone] Hien Giles RN Karl, Deborah, LD Gestational diabetes mellitus (GDM) in second trimester, gestational diabetes method of control unspecified (Primary Dx) 02/13/2025 Travel 02/07/2025 Orders Only Maternal- Medicine at [address] [phone] Ref Prov, Not In System 02/07/2025 Abstract Maternal- Medicine at [address] [phone] External, Scanning Provider from Last 3 Months [...] Maternal- Medicine at [facility] [address] [place] [phone] Marilia Dillon, FINANCIAL REPORTING ANALYST-BELLY ROLLER [address] [place] [address] Health Maintenance Due Date Last Done Comments [...] ORDERABLES Final Re sult Performing Organization Address [facility] Co de Phone Number MANUALLY TRANSCRIBED RESULTS [...] ORDERABLES Madelaine l Result Performing Organization Address [facility] Co de Phone Number MANUALLY TRANSCRIBED RESULTS * Glucose 1h post 50g load (02/01/2025) Glucose, 1 hr PP 50GM dose 198 MANUALLY TRANSCRIBED RESULTS Blood Venous blood / Unknown us Not In System Ref Prov LAB BLOOD ORDERABLES Madelaine l Result Performing Organization Address [facility] Co de Phone Number MANUALLY TRANSCRIBED RESULTS * Hemoglobin and hematocrit, blood (02/01/2025) Hemoglobin 11.5 MANUALLY TRANSCRIBED RESULTS Hematocrit 33.9 MANUALLY TRANSCRIBED RESULTS Blood Venous blood / Unknown us Not In System Ref Prov LAB BLOOD ORDERABLES Madelaine l Result Performing Organization Address [facility] Co de Phone Number MANUALLY TRANSCRIBED RESULTS from Last 3 Months Insurance [facility]
--- OUTSIDE RECORDS SUMMARY | 2025-04-26 15:06 | XMS_ITS | Encounter Summary ---
Author Organization [facility] Address [address] [place] [address] Care Team Providers Care Field Appraiser Name Role Phone Unallocated, Noms Provider Primary Care Provi chrissy Amalia Bruce GAUGE MAKER Unavailable [phone] Encounter Details Date Type Department Care Team (Late Contact Info) Description 10/29/2024 Abstract [facility] CAAL [address] [place] [phone] Roscoe Diaz DO [address] [facility] [place] [address] Social History Tobacco Use Types Packs/Day Years [...] AM EDT Routine CH[facility]ARA CAAL [address] [place] [address] Rosy Barton PA [address] [place] [address] documented as of this encounter Goals Goal Patient Goal Type Associated Problems Recent Progress Patient-Stated? Author Reminders Care Plan OB Reminders No Open Scheduling, Background documented as of this encounter Visit Diagnoses Not on filedocumented in this encounter Additional Health Concerns Active Problems Noted Date Diagnosed Date OB Reminders 10/19/2024 documented as of this encounter Care Teams Field Appraiser Relationship Specialty Start Date End Date Unallocated, Noms Herlinda, [address] [place] [address] PCP - General Family Medicine 10/17/23 Amalia Bruce NP [address] [place] [address] PCP - Capo Wild 09/22/24 documented as of this encounter
--- OUTSIDE RECORDS SUMMARY | 2025-04-26 15:06 | XMS_ITS | Encounter Summary ---
Author Organization [facility] Address [address] [place] [address] Care Team Providers Care Mophead Sewer Name Role Phone Unallocated, Noms Provider Primary Care Provi chrissy Amalia Bruce INSTRUCTOR OF EDUCATION Unavailable [phone] Encounter Details Date Type Department Care Team (Late st Contact Info) Description 12/26/2024 Orders Only CHIARA CAAL [address] [place] [address] Iman Saldana LPN [address] [place] [id number] Social History Tobacco Use Types Packs/Day Years [...] 9:20 AM EDT Routine NOM[facility] CAAL [address] [facility] [place] [phone] Rosy Barton PA [address] [facility] [place] [address] documented as of this encounter Goals Goal [...] documented as of this encounter Care Teams Mophead Sewer Relationship Specialty Start Date End Date Unallocated, Noms Provider, [address] [place] [address] PCP - General Family Medicine 10/17/23 Amalia Bruce, TONIA [address] [place] [address] PCP - Capo Wild 09/22/24 documented as of this encounter
--- OUTSIDE RECORDS SUMMARY | 2025-04-26 15:07 | XMS_ITS | Encounter Summary ---
Author Organization [facility] Address [address] [place] [address] Care Team Providers Care Mohs Surgeon/General Dermatologist Name Role Phone Unallocated, Noms Provider Primary Care Provi chrissy Amalia Bruce RENEWALS SPECIALIST Unavailable [phone] Encounter Details Date Type Department Care Team (Late st Contact Info) Description 04/24/2025 Bamboo flowsheet CHIARA CAAL [address] [facility] [place] [address] Roscoe Diaz DO [address] [facility] [address] [place], [facility] Social History Tobacco Use Types Packs/Day Years [...] 9:20 AM EDT Routine CHIARA SILVAGYN [address] [facility] [place] [phone] Rosy Barton PA [address] [facility] [place] [address] documented as of this encounter Goals Goal Patient Goal Type Associated Problems Recent Progress Patient-Stated? Author Reminders Care Plan OB Reminders No Open Scheduling, Background documented as of this encounter Visit Diagnoses Not on filedocumented in this encounter Additional Health Concerns Active Problems Noted Date Diagnosed Date OB Reminders 10/19/2024 documented as of this encounter Care Teams Mohs Surgeon/General Dermatologist Relationship Specialty Start Date End Date Unallocated, Noms Provider, [address] [place], [place] [phone] PCP - General Family Medicine 10/17/23 Amalia Bruce, TONIA [address] [place] [address] PCP - Capo Wild 09/22/24 documented as of this encounter
--- OUTSIDE RECORDS SUMMARY | 2025-04-26 15:07 | XMS_ITS | Encounter Summary ---
Author Organization [facility] Address [address] [place] [address] Care Team Providers Care Warp Bleaching Vat Tender Name Role Phone Unallocated, Noms Provider Primary Care Provi chrissy Amalia Bruce TELEVISION NEWSCAST DIRECTOR Unavailable [phone] Encounter Details Date Type Department Care Team (Late st Contact Info) Description 04/23/2025 Clinisync Result Encounter [facility] External Department Unsolicited Rosy Quiroz PA [address] [place] [address] Social History Tobacco Use Types Packs/Day Years [...] AM EDT Routine [facility] [address] [place] [phone] Rosy Quiroz PA [address] [place] [address] [place] [address] documented as of this encounter Goals Goal [...] EDT Narrative 04/23/2025 4:37 PM EDT The [address] [address] Ultrasound Report Signed Patient: TRUDI ZAMARRIPA MR#: [id number] : 1990 Acct:[id number] Age/Sex: 34 / F ADM Date: 04/23/25 Loc: [facility] 250-[address]: Rosy Quiroz Ordering Physician: Rosy Quiroz Date of Service: 04/23/25 Procedure(s): US OB BPP w non-stress Accession Number(s): [id number] cc: Rosy Quiroz; Physician,Non-Staff M.D. The [address] [address] Patient Name: TRUDI ZAMARRIPA MRN: [id number] date: 1990 Sex: F Assigned Patient Location: US Current Patient Location: US Accession/Order Number: [id number] Exam Date: 04/23/2025 16:03 Report Date: 04/23/2025 16:35 At the request of: ROSY QUIROZ Procedure: US OB BPP w non-stress Biophysical profile. Reason for exam: History of gastric sleeve surgery COMPARISON: 04/15/2025 TECHNIQUE: Transabdominal imaging of the gravid uterus was obtained. FINDINGS: The sizing end bander reports a BPP of 8 out of 8. HELLEN is normal at 11.5 cm. heart rate 135 bpm. US/US OB BPP w non-stress IMPRESSION: BPP 8 out of 8. Impression dictated by: Cy Jensen Jr., D.O. 04/23/2025 4:35 PM Dictation Location: [place] [address] Electronically authenticated by: [id number] Y Date: 04/23/2025 16:35 Dictated By: Cy Jensen M.D. Signed By: 04/23/25 1637 DD/ 34 TD/TT: Retail Support Specialist: Procedure Note Radiology, Radiologist, MD - 04/23/2025 [place] [address] Ultrasound Report Signed Patient: TRUDI ZAMARRIPA R#: [id number] : 1990Acct:[id number] Age/Sex: 34 / FADM Date: 04/23/25 Loc: [address]: Rosy Quiroz Ordering Physician: Rosy Quiroz Date of Service: 04/23/25 Procedure(s): US OB BPP w non-stress Accession Number(s): [id number] cc: Rosy Quiroz; Physician,Non-Staff Shimon The [place] [address] Patient Name: TRUDI ZAMARRIPA MRN: [id number] date: 1990 Sex: F Assigned Patient Location: Current Patient Location: US Accession/Order Number: [id number] Exam Date: 04/23/2025 16:03 Report Date: 04/23/2025 16:35 At the request of: ROSY QUIROZ Procedure: US OB BPP w non-stress Biophysical profile. Reason for exam: History of gastric sleeve surgery COMPARISON: 04/15/2025 TECHNIQUE: Transabdominal imaging of the gravid uterus was obtained. FINDINGS: The sizing end bander reports a BPP of 8 out of 8. HELLEN is normal at11.5 cm. heart rate 135 bpm. US/US OB BPP w non-stress IMPRESSION: BPP 8 out of 8. Impression dictated by: Cy Jensen Jr., D.O. 04/23/2025 4:35 PM Dictation Location: [place] [address] Electronically authenticated by: [id number] Y Date: 6:35 Dictated By: Cy Jensen M.D. Signed By:04/23/25 1637 DD/ 34 TD/TT: Retail Support Specialist: Rosy [facility] Final Result documented in this encounter Visit Diagnoses Not on filedocumented in this encounter Additional Health Concerns Active Problems Noted Date Diagnosed Date OB Reminders 10/19/2024 documented as of this encounter Care Teams Warp Bleaching Vat Tender Relationship Specialty Start Date End Date Unallocated, Noms Provider, [address] [place] [address] PCP - General Family Medicine 10/17/23 Amalia Bruce, TONIA [address] [place] [address] PCP - Capo Wild 09/22/24 documented as of this encounter
--- OUTSIDE RECORDS SUMMARY | 2025-04-26 15:07 | XMS_ITS | Clinical Summary ---
Author Organization [facility] Address [address] [place] [address] Care Team Providers Care Manager Intensive Care Unit Name Role Phone Dasha Lujan MD Primary Care Provider [phone] Fatimah Geiger APRN.AUDIO VISUAL EQUIPMENT RENTAL CLERK Unavailable [phone] Allergies No known active allergies Medications Omeprazole Magnesium (ACID TRAFFIC ENUMERATOR, OMEPRAZOLE,) 20 mg cpDR 04/16/2022 Active Active [...] 0.6 oz p ure alcohol) occ. drink [employer] Utilities Answer Date Recorded In the past 12 months has [employer], gas, oil, or water [employer] threatened to shut off services in your [...] Answer Date Recorded PHQ-2 score 0 06/29/2024 [place] of Occupat ional Health - Occupational Stress [...] lower risk 8 07/19/2023 Data from: https://www.neighborhoodatlas.medicine.[facility].edu/. Last address used for calculation [...] Hepatitis C Screening Discontinued Insurance Care Teams Manager Intensive Care Unit Relationship Specialty [place] [address] [place], [place] [id number] PCP - General Internal Medicine 01/11/22 Fatimah Geiger APRN.AUDIO VISUAL EQUIPMENT RENTAL CLERK [address] [place], [place] [id number] Load Planner Internal Medicine 07/30/24
[2025-04-26 15:11] VITALS: BP 111/58; PULSE 60
--- OUTSIDE RECORDS SUMMARY | 2025-04-26 15:11 | XMS_ITS | CCD ---
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 Name Role Phone Unavailable Primary Care Provider [...] Unavailable Unallocated , Noms Provider Primary Care [facility] Teo TRACK ANNOUNCER, Edu N Unavailable Teo TRACK ANNOUNCER, Edu N Unavailable Unavailable Primary Care Provider UnavailDEVIKA Lima Attending Unavailable DARI DIAZY R Referring Unavailable PETR MORELEN Emelia Attending Unavailable JOE, ROSCOE R Referring Unavailable PETR MORELEN Emelia Attending Unavailable JOE, ROSCOE R Referring Unavailable JOE, RSOCOE Attending Unavailable ORALIA, ROSY Attending Unavailable JOE, ROSCOE Attending Unavailable ORALIA, ROSY Attending Unavailable ORALIA, ROSY Referring Unavailable JOE, ROSCOE Attending Unavailable ORALIA, ROSY Attending Unavailable JOE, ROSCOE Attending Unavailable ROSCOE DIAZ Referring Unavailable ROSCOE DIAZ Attending Unavailable ROSCOE DIAZ Attending Unavailable SINA [...] gestational diabetes method of control unspecified ([facility]HS-HCC) , Elevated glucose tolerance test 1 kit [...] antepartum, gestational diabetes method of control unspecified ([facility]) , Elevated glucose tolerance test Apply 1 Pad topically Daily Use four times daily to check FSBS. 150 each 3 02/04/2025 Active omeprazole 20 mg delayed release oral capsule (20 sources) Proton Pump Inhibitor Start: 04-16-2022 Omeprazole Magnesium (ACID SPECIAL PROJECTS COORDINATOR, OMEPRAZOLE,) 20 mg cpDR 04/16/2022 Active [...] 30 days. BMI 29.76 polyethylene glycol 3350 19726 mg powder for oral solution (2 sources) Osmotic Laxative Start: End: take 17 g by mouth once polyethylene glycol, PEG, 3350 (Glycolax) 17 GM/SCOOP powder Indications: Colonoscopy Take 238 g by mouth 1 (one) time for 1 dose Take as detailed from clinic hand out for colonoscopy prep 238 g 07/25/2024 07/25/2024 Active 25-IRON CYU-NIYCO-CNO ORAL (13 sources) take 1 tablet by mouth in the morning 25-IRON XWE-ALWWP-RYX ORAL Take 1 tablet by mouth in the morning. Active Vit-Fe Fumarate-FA ( 19) 29-1 MG chewable tablet (20 sources) Start: Vit-Fe Fumarate-FA ( 19) 29-1 MG chewable tablet Indications: , unspecified gestational age ([facility]) Chew 1 each Daily 30 tablet 11 [...] source) Edema, unspecified; Translations: [Edema, unspecified] Onset: 3 Episodic Residual codes; unclassified (2 sources) Gestation [...] Range Facility Urinalysis macro (dipstick) panel (U)on 04-24-2025 Bilirubin, UA Negative Negative - 4(70) +++ mg/dL [facility] Blood, UA Negative Negative - 50 Iraj/mcL [facility] Clarity, UA Clear [facility] Color, UA Yellow [facility] Glucose, UA Negative Negative - 1999(110) ++++ mg/dL [facility] Interpretation and review of laboratory results Normal [facility] Ketones, UA Negative Negative - 160(16) ++++ mg/dL [facility] Leukocytes, UA Negative Negative - 500+++ Mari/mcL [facility] Nitrite, UA Negative Negative - Positive [facility] pH, UA 6 5 - 9 [facility] Protein, UA Negative Negative - 1999(20) ++++ mg/dL [facility] Spec Grav, UA 1.02 1 - 1.03 [facility] Urobilinogen, UA 1.0 0.2 - 12 mg/dL Counts include 234 beds at the [facility] US OB BPP W NON-STRESS on 04-23-2025 [place] [address] Ultrasound Report Signed Patient: CARYL ZAMARRIPA MR#: [id number] : 1990 Acct:[id number] Age/Sex: 34 / F ADM Date: 04/23/25 Loc: [place] [address]: Rosy Quiroz Ordering Physician: Rosy Quiroz Date of Service: 04/23/25 Procedure(s): US OB BPP w non-stress Accession Number(s): [id number] cc: Rosy Quiroz; Physician,Non-Staff M.D. The [place] [address] Patient Name: CARYL ZAMARRIPA MRN: [facility]:[id number] date: 1990 Sex: F Assigned Patient Location: US Current Patient Location: US Accession/Order Number: [id number] Exam Date: 04/23/2025 16:03 Report Date: 04/23/2025 16:35 At the request of: ROSY QUIROZ Procedure: US OB BPP w non-stress Biophysical profile. Reason for exam: History of gastric sleeve surgery COMPARISON: 04/15/2025 TECHNIQUE: Transabdominal imaging of the gravid uterus was obtained. FINDINGS: The envelope folder reports a BPP of 8 out of 8. HELLEN is normal at 11.5 cm. heart rate 135 bpm. US/US OB BPP w non-stress IMPRESSION: BPP 8 out of 8. Impression dictated by: Cy Jensen Jr., D.O. 04/23/2025 4:35 PM Dictation Location: [place] [address] Electronically authenticated by: [id number] Y Date: 04/23/2025 16:35 Dictated By: Cy Jensen M.D. Signed By: 04/23/25 1637 DD/ 34 TD/TT: Medical Transcription Editor: [facility] Radiology, Radiologist, MD - 04/23/2025 [place] [address] Ultrasound Report Signed Patient: CARYL ZAMARRIPA MR#: [id number] : 1990 Acct:[id number] Age/Sex: 34 / F ADM Date: 04/23/25 Loc: [facility] 250-[address]: Rosy Quiroz Ordering Physician: Rosy Quiroz Date of Service: 04/23/25 Procedure(s): US OB BPP w non-stress Accession Number(s): [id number] cc: Rosy Quiroz; Physician,Non-Staff Shimon The [place] [id number] Patient Name: CARYL ZAMARRIPA MRN: [facility]:[id number] date: 1990 Sex: F Assigned Patient Location: Current Patient Location: US Accession/Order Number: [id number] Exam Date: 04/23/2025 16:03 Report Date: 04/23/2025 16:35 At the request of: ROSY QUIROZ Procedure: US OB BPP w non-stress Biophysical profile. Reason for exam: History of gastric sleeve surgery COMPARISON: 04/15/2025 TECHNIQUE: Transabdominal imaging of the gravid uterus was obtained. FINDINGS: The envelope folder reports a BPP of 8 out of 8. HELLEN is normal at 11.5 cm. heart rate 135 bpm. US/US OB BPP w non-stress IMPRESSION: BPP 8 out of 8. Impression dictated by: Cy Jensen Jr., D.O. 04/23/2025 4:35 PM Dictation Location: [place] [address] Electronically authenticated by: [id number] Y Date: 04/23/2025 16:35 Dictated By: Cy Jensen M.D. Signed By: 04/23/251636 DD/ 34 TD/TT: Medical Transcription Editor: [facility] Radiology Study observation (narrative) [facility] US OB BPP W NON-STRESS Ordered By: Radiologist Radiology on 04-23-2025 [facility] Work Phone: US OB BPP W NON-STRESS on 04-15-2025 [place] [address] Ultrasound Report Signed Patient: CARYL ZAMARRIPA MR#: [id number] : 1990 Acct:[id number] Age/Sex: 34 / F ADM Date: 04/15/25 Loc: US Attending Dr: Rosy Quiroz Ordering Physician: Rosy Quiroz Date of Service: 04/15/25 Procedure(s): US OB BPP w non-stress Accession Number(s): [id number] cc: Rosy Quiroz; Physician,Non-Staff Shimon The [place] [id number] Patient Name: CARYL ZAMARRIPA MRN: [facility]:[id number] date: 1990 Sex: F Assigned Patient Location: US Current Patient Location: Accession/Order Number: [id number] Exam Date: 04/15/2025 15:09 Report Date: 04/15/2025 16:16 At the request of: ROSY QUIROZ Procedure: US OB BPP w non-stress Biophysical profile. Reason for exam: History of gastric sleeve surgery COMPARISON: 04/08/2025 TECHNIQUE: Transabdominal imaging of the gravid uterus was obtained. FINDINGS: The envelope folder reports a BPP of 8 out of 8. HELLEN is normal at 17 cm. heart rate 136 bpm. US/US OB BPP w non-stress IMPRESSION: BPP 8 out of 8. Impression dictated by: Cy Jensen Jr., D.O. 04/15/2025 4:16 PM Dictation Location: [place] [address] Electronically authenticated by: [id number] Y Date: 04/15/2025 16:16 Dictated By: Cy Jensen M.D. Signed By: 04/15/259 DD/ 15 TD/TT: Medical Transcription Editor: [facility] Radiology, Radiologist, MD - 04/15/2025 [place] [address] Ultrasound Report Signed Patient: CARYL ZAMARRIPA MR#: [id number] : 1990 Acct:[id number] Age/Sex: 34 / F ADM Date: 04/15/25 Loc: US Attending Dr: Rosy Quiroz Ordering Physician: Rosy Quiroz Date of Service: 04/15/25 Procedure(s): US OB BPP w non-stress Accession Number(s): [id number] cc: Rosy Quiroz; Physician,Non-Staff Shimon The [address] [address] Patient Name: CARYL ZAMARRIPA MRN: [facility]:[id number] date: 1990 Sex: F Assigned Patient Location: US Current Patient Location: Accession/Order Number: [id number] Exam Date: 04/15/2025 15:09 Report Date: 04/15/2025 16:16 At the request of: ROSY QUIROZ Procedure: US OB BPP w non-stress Biophysical profile. Reason for exam: History of gastric sleeve surgery COMPARISON: 04/08/2025 TECHNIQUE: Transabdominal imaging of the gravid uterus was obtained. FINDINGS: The envelope folder reports a BPP of 8 out of 8. HELLEN is normal at 17 cm. heart rate 136 bpm. US/US OB BPP w non-stress IMPRESSION: BPP 8 out of 8. Impression dictated by: Cy Jensen Jr., D.O. 04/15/2025 4:16 PM Dictation Location: [place] [address] Electronically authenticated by: [id number] Y Date: 04/15/2025 16:16 Dictated By: Cy Jensen M.D. Signed By: 04/15/25 1619 DD/ 15 TD/TT: Medical Transcription Editor: [facility] Radiology Study observation (narrative) [facility] US OB BPP W NON-STRESS Ordered By: Radiologist Radiology on 04-15-2025 [facility] Work Phone: Urinalysis macro (dipstick) panel (U)on 04-10-2025 Bilirubin, UA Negative Negative - 4(70) +++ mg/dL [facility] Blood, UA Negative Negative - 50 Iraj/mcL [facility] Clarity, UA Clear [facility] Color, UA Yellow [facility] Glucose, UA Negative Negative - 2000(110) ++++ mg/dL [facility] Interpretation and review of laboratory results Abnormal [facility] Ketones, UA Negative Negative - 160(16) ++++ mg/dL [facility] Leukocytes, UA Positive Negative - 500+++ Mari/mcL [facility] Nitrite, UA Negative Negative - Positive [facility] pH, UA 6 5 - 9 [facility] Protein, UA Positive Negative - 2000(20) ++++ mg/dL [facility] Spec Grav, UA 1.015 1 - 1.03 [facility] Urobilinogen, UA 1.0 0.2 - 12 mg/dL Counts include 234 beds at the [facility] US OB BPP W NON-STRESS on 04-08-2025 [place] [address] Ultrasound Report Signed Patient: CARYL ZAMARRIPA MR#: [id number] : 1990 Acct:[id number] Age/Sex: 34 / F ADM Date: 04/08/25 Loc: US Attending Dr: Rosy Quiroz Ordering Physician: Rosy Quiroz Date of Service: 04/08/25 Procedure(s): US OB BPP w non-stress Accession Number(s): [id number] cc: Rosy Quiroz; Physician,Non-Staff M.Bruce The [address] [address] Patient Name: CARYL ZAMARRIPA MRN: [facility]:[id number] date: 1990 Sex: F Assigned Patient Location: [facility] Current Patient Location: Accession/Order Number: [id number] Exam Date: 04/08/2025 20:36 Report Date: 04/08/2025 [...] Briscoe M.D. 04/08/2025 8:37 PM Dictation Location: [place] [address] Electronically authenticated by: [id number] Y Date: 04/08/2025 20:37 Dictated By: Suraj Briscoe D.O. Signed By: 04/08/252038 DD/ 36 TD/TT: Medical Transcription Editor: [facility] Radiology, Radiologist, - 04/08/2025 The [place] [id number] Ultrasound Report Signed Patient: CARYL ZAMARRIPA MR#: [id number] : 1990 Acct:[id number] Age/Sex: 34 / F ADM Date: 04/08/25 Loc: US Attending Dr: Rosy Quiroz Ordering Physician: Rosy Quiroz Date of Service: 04/08/25 Procedure(s): US OB BPP w non-stress Accession Number(s): [id number] cc: Rosy Quiroz; Physician,Non-Staff Shimon The [address] [address] Patient Name: CARYL ZAMARRIPA MRN: [facility]:[id number] date: 1990 Sex: F Assigned Patient Location: [facility] Current Patient Location: Accession/Order Number: [id number] Exam Date: 04/08/2025 20:36 Report Date: 04/08/2025 [...] Briscoe M.D. 04/08/2025 8:37 PM Dictation Location: [facility] Electronically authenticated by: [id number] Y Date: 04/08/2025 20:37 Dictated By: Suraj Briscoe D.O. Signed By: 04/08/252038 DD/ 36 TD/TT: Medical Transcription Editor: [facility] Study observation (narrative) [facility] US OB BPP W NON-STRESS Ordered By: Radiologist Radiology on 04-08-2025 [facility] Work Phone: US OB FOLLOW UP TRANSABDOMIN [...] II, MD, PHD at 09-Apr-2025 07:59:18 AM [facility] Normal Not Available Comment on above: Order Comment: US OB SCAN FOR GROWTH Estimated Date of Delivery: 05/19/25 Gestational Age as of 04/05/2025: 33w5d US OB BPP W NON-STRESS on 04-01-2025 [place] [address] Ultrasound Report Signed Patient: CARYL ZAMARRIPA MR#: [id number] : 1990 Acct:[id number] Age/Sex: 34 / F ADM Date: 04/01/25 Loc: [place] [address]: Rosy Quiroz Ordering Physician: Rosy Quiroz Date of Service: 04/01/25 Procedure(s): US OB BPP w non-stress Accession Number(s): [id number] cc: Rosy Quiroz; Physician,Non-Staff M.D. [place] [address] Patient Name: CARYL ZAMARRIPA MRN: [facility]:[id number] date: 1990 Sex: F Assigned Patient Location: US Current Patient Location: US Accession/Order Number: [id number] Exam Date: 04/01/2025 15:28 Report Date: 04/01/2025 15:29 At the request of: ROSY QUIROZ Procedure: US OB BPP w non-stress Biophysical profile. Reason for exam: History of gastric sleeve surgery COMPARISON: None TECHNIQUE: Transabdominal imaging of the gravid uterus was obtained. FINDINGS: The envelope folder reports a BPP of 8 out of 8. HELLEN is normal at 10.8 cm. heart rate 125 bpm. US/US OB BPP w non-stress IMPRESSION: BPP 8 out of 8. Impression dictated by: Cy Jensen Jr., D.O. 04/01/2025 3:29 PM Dictation Location: [place] Electronically authenticated by: [id number] Y Date: 04/01/2025 15:29 Dictated By: Cy Jensen M.D. Signed By: 04/01/25 1531 DD/ 1529 TD/TT: Medical Transcription Editor: [facility] Radiology, Radiologist, MD - 04/01/2025 [place] [address] Ultrasound Report Signed Patient: CARYL ZAMARRIPA MR#: [id number] : 1990 Acct:[id number] Age/Sex: 34 / F ADM Date: 04/01/25 Loc: [place] [address]: Rosy Quiroz Ordering Physician: Rosy Quiroz Date of Service: 04/01/25 Procedure(s): US OB BPP w non-stress Accession Number(s): [id number] cc: Rosy Quiroz; Physician,Non-Staff Shimon The [place] [address] Patient Name: CARYL ZAMARRIPA MRN: [facility]:[id number] date: 1990 Sex: F Assigned Patient Location: Current Patient Location: US Accession/Order Number: [id number] Exam Date: 04/01/2025 15:28 Report Date: 04/01/2025 15:29 At the request of: ROSY QUIROZ Procedure: US OB BPP w non-stress Biophysical profile. Reason for exam: History of gastric sleeve surgery COMPARISON: None TECHNIQUE: Transabdominal imaging of the gravid uterus was obtained. FINDINGS: The envelope folder reports a BPP of 8 out of 8. HELLEN is normal at 10.8 cm. heart rate 125 bpm. US/US OB BPP w non-stress IMPRESSION: BPP 8 out of 8. Impression dictated by: Cy Jensen Jr., D.O. 04/01/2025 3:29 PM Dictation Location: [place] Electronically authenticated by: [id number] Y Date: 04/01/2025 15:29 Dictated By: Cy Jensen M.D. Signed By: 04/01/25 1531 DD/ 1529 TD/TT: Medical Transcription Editor: [facility] Radiology Study observation (narrative) [facility] US OB BPP W NON-STRESS Ordered By: Radiologist Radiology on 04-01-2025 [facility] Work Phone: Urinalysis macro (dipstick) panel (U)on 03-27-2025 Bilirubin, UA Negative Negative - 4(70) +++ mg/dL [facility] Blood, UA Negative Negative - 50 Iraj/mcL [facility] Clarity, UA Clear [facility] Color, UA Yellow [facility] Glucose, UA Negative Negative - 1999(110) ++++ mg/dL [facility] Interpretation and review of laboratory results Abnormal [facility] Ketones, UA Positive Negative - 160(16) ++++ mg/dL [facility] Leukocytes, UA Few Negative - 500+++ Mari/mcL [facility] Nitrite, UA Negative Negative - Positive [facility] pH, UA 6 5 - 9 [facility] Protein, UA Few Negative - 2000(20) ++++ mg/dL [facility] Spec Grav, UA 1.03 1 - 1.03 [facility] Urobilinogen, UA 0.2 0.2 - 12 mg/dL Counts include 234 beds at the [facility] Urinalysis macro (dipstick) panel (U)on 03-13-2025 Bilirubin, UA Negative Negative - 4(70) +++ mg/dL [facility] Blood, UA Negative Negative - 50 Iraj/mcL [facility] Clarity, UA Clear [facility] Color, UA Yellow [facility] Glucose, UA Negative Negative - 2000(110) ++++ mg/dL [facility] Interpretation and review of laboratory results Normal [facility] Ketones, UA Negative Negative - 160(16) ++++ mg/dL [facility] Leukocytes, UA Negative Negative - 500+++ Mari/mcL [facility] Nitrite, UA Negative Negative - Positive [facility] pH, UA 6 5 - 9 [facility] Protein, UA Negative Negative - 2000(20) ++++ mg/dL [facility] Spec Grav, UA 1.01 1 - 1.03 [facility] Urobilinogen, UA 1.0 0.2 - 12 mg/dL Counts include 234 beds at the [facility] US OB FOLLOW UP TRANSABDOMIN AL [...] Negative Negative - 4(70) +++ mg/dL [facility] Blood, UA Negative Negative - 50 Iraj/mcL [facility] Clarity, UA Clear [facility] Color, UA Colorless [facility] Glucose, UA Negative Negative - 2000(110) ++++ mg/dL [facility] Interpretation and review of laboratory results Normal [facility] Ketones, UA Negative Negative - 160(16) ++++ mg/dL [facility] Leukocytes, UA Negative Negative - 500+++ Mari/mcL [facility] Nitrite, UA Negative Negative - Positive [facility] pH, UA 6 5 - 9 [facility] Protein, UA Negative Negative - 1999(20) ++++ mg/dL [facility] Spec Grav, UA 1.01 1 - 1.03 [facility] Urobilinogen, UA 1.0 0.2 - 12 mg/dL Counts include 234 beds at the [facility] Glucose random or fasting- P OCTon 02-14-2025 External Glucose Fasting Or Random (Fbs) 88 [facility] Urinalysis macro (dipstick) panel (U)on 02-11-2025 Bilirubin, UA Negative Negative - 4(70) +++ mg/dL [facility] Blood, UA Negative Negative - 50 Iraj/mcL [facility] Clarity, UA Clear [facility] Color, UA Yellow [facility] Glucose, UA Positive Negative - 1999(110) ++++ mg/dL [facility] Comment on above: 500mg/dL Interpretation and review of laboratory results Abnormal [facility] Ketones, UA Negative Negative - 160(16) ++++ mg/dL [facility] Leukocytes, UA Negative Negative - 500+++ Mari/mcL [facility] Nitrite, UA Negative Negative - Positive [facility] pH, UA 6 5 - 9 [facility] Protein, UA Negative Negative - 1999(20) ++++ mg/dL [facility] Spec Grav, UA 1.005 1 - 1.03 [facility] Urobilinogen, UA 0.2 0.2 - 12 mg/dL Counts include 234 beds at the [facility] ALL CBC WITH AUTO DIFFon BASOPHILS ABSOLUTE AUTO 0 N [facility] Basophils/100 WBC (Bld) 0.2 % 0.2 - 2.0 % [facility] Eosinophils/100 WBC (Bld) 1.1 % 0.9 - 7.0 % [facility] Erythrocyte distribution width (RBC) [Ratio] 13.6 % 11.0 - 15.0 % [facility] IMMATURE GRANULOCYTES ABS AUTO 0.04 High [facility] Immature granulocytes/100 WBC (Bld) 0.4 % 0.0 - 0.5 % [facility] Interpretation and review of laboratory results Abnormal [facility] LYMPHOCYTES ABSOLUTE AUTO 1.2 [facility] Lymphocytes/100 WBC (Bld) 12.5 % Low 20.5 - 60.0 % [facility] MCH (RBC) [Entitic mass] 33.9 pg 26. 7 - 34.0 pg [facility] MCHC (RBC) [Mass/Vol] 33.9 g/dL 29.9 - 35.2 g/dL [facility] MCV (RBC) [Entitic vol] 100 fL High 81.0 - 99.0 fL [facility] MONOCYTES ABSOLUTE AUTO 0.4 N [facility] Monocytes/100 WBC (Bld) 3.9 % 1.7 - 12.0 % [facility] NEUTROPHILS ABSOLUTE AUTO 7.7 High [facility] Neutrophils/100 WBC (Bld) 81.9 % High 43.0 - 75.0 % [facility] Platelet mean volume (Bld) [Entitic vol] 11 fL 9.5 - 13.5 fL [facility]H EO # 0.1 [facility] PLT 172 [facility] RBC 3.39 Low [facility] WBC 9.4 [facility] Glucose 1h post 50g loadon 0 02-01-2025 Glucose, 1 hr PP 50GM dose 198 [facility] - Hematology and Cell countson 02-01-2025 Hematocrit (Bld) [Volume fraction] 33.9 % [facility] Hemoglobin (Bld) [Mass/Vol] 11.5 g/dL [facility] No Panel Informationon 02-01 [facility] US OB LIMITED 1+ FETUSESon 0 [...] PHD at 01-Feb-2025 10:22:21 AM [facility] Normal Not Available Comment on above: Order Comment: US OB INCOMPLETE ANATOMY Estimated Date of Delivery: 05/19/25 Gestational Age as of 01/07/2025: 21w1d Urinalysis macro (dipstick) panel (U)on 01-10-2025 Bilirubin, UA Negative Negative - 4(70) +++ mg/dL [facility] Blood, UA Negative Negative - 50 Iraj/mcL [facility] Clarity, UA Clear [facility] Color, UA Yellow [facility] Glucose, UA Negative Negative - 1999(110) ++++ mg/dL [facility] Interpretation and review of laboratory results Abnormal [facility] Ketones, UA Positive Negative - 160(16) ++++ mg/dL [facility] Leukocytes, UA Negative Negative - 500+++ Mari/mcL [facility] Nitrite, UA Negative Negative - Positive [facility] pH, UA 6 5 - 9 [facility] Protein, UA Negative Negative - 2000(20) ++++ mg/dL [facility] Spec Grav, UA 1.01 1 - 1.03 [facility] Urobilinogen, UA 0.2 0.2 - 12 mg/dL Counts include 234 beds at the [facility] No Panel InformationOrdered By: Radiologist Radiology on 01-02-2025 [facility] Work Phone: No Panel Informationon 01-02 Radiology Study observation (narrative) [facility] US OB ANATOMYon 01-02-[address] [address] Ultrasound Report Signed Patient: CARYL ZAMARRIPA MR#: [id number] : 1990 Acct:[id number] Age/Sex: 34 / F ADM Date: 01/02/25 Loc: US Attending Dr: Roscoe Diaz D.O. Ordering Physician: Roscoe Diaz D.O. Date of Service: 01/02/25 Procedure(s): US OB anatomy Accession Number(s): [id number] cc: Roscoe Diaz D.O.; Physician,Non-Staff M.Bruce [address] [address] Patient Name: CARYL ZAMARRIPA MRN: [id number] date: 1990 Sex: F Assigned Patient Location: US Current Patient Location: US Accession/Order Number: [id number] Exam Date: 01/02/2025 22:40 Report Date: 01/02/2025 [...] Briscoe M.D. 01/02/2025 10:47 PM Dictation Location: [place] [address] Electronically authenticated by: [id number] Y Date: 01/02/2025 22:47 Dictated By: Suraj Briscoe D.O. Signed By: 01/02/252249 DD/ 46 TD/TT: Medical Transcription Editor: [facility] Radiology, Radiologist, - 01/02/2025 [place] [address] Ultrasound Report Signed Patient: CARYL ZAMARRIPA MR#: [id number] : 1990 Acct:[id number] Age/Sex: 34 / F ADM Date: 01/02/25 Loc: US Attending Dr: Roscoe Diaz D.O. Ordering Physician: Roscoe Diaz D.O. Date of Service: 01/02/25 Procedure(s): US OB anatomy Accession Number(s): [id number] cc: Roscoe Diaz D.O.; Physician,Non-Staff M.DCharisse [place] [id number] Patient Name: CARYL ZAMARRIPA MRN: [id number] date: 1990 Sex: F Assigned Patient Location: US Current Patient Location: US Accession/Order Number: [id number] Exam Date: 01/02/2025 22:40 Report Date: 01/02/2025 [...] Briscoe M.D. 01/02/2025 10:47 PM Dictation Location: [place] [address] Electronically authenticated by: [id number] Y Date: 01/02/2025 22:47 Dictated By: Suraj Briscoe D.O. Signed By: 01/02/252249 DD/ 46 TD/TT: Medical Transcription Editor: [facility] CERVICAL LENGTHon 12-20 [place] [address] Ultrasound Report Signed Patient: CARYL ZAMARRIPA MR#: [id number] : 1990 Acct:[id number] Age/Sex: 34 / F ADM Date: 01/02/25 Loc: US Attending Dr: Roscoe Diaz D.O. Ordering Physician: Roscoe Diaz D.O. Date of Service: 01/02/25 Procedure(s): US OB cervical length Accession Number(s): [id number] cc: Roscoe Diaz D.O.; Physician,Non-Staff [place] [address] Patient Name: CARYL ZAMARRIPA MRN: [facility]:[id number] date: 1990 Sex: F Assigned Patient Location: US Current Patient Location: US Accession/Order Number: [id number] Exam Date: 01/02/2025 22:40 Report Date: 01/02/2025 [...] Briscoe M.D. 01/02/2025 10:47 PM Dictation Location: [facility] Electronically authenticated by: [id number] Y Date: 01/02/2025 22:47 Dictated By: Suraj Briscoe D.O. Signed By: 01/02/252249 DD/ 46 TD/TT: Medical Transcription Editor: [facility] Radiology, Radiologist, MD - 01/02/2025 [place] [address] Ultrasound Report Signed Patient: CARYL ZAMARRIPA MR#: [id number] : 1990 Acct:[id number] Age/Sex: 34 / F ADM Date: 01/02/25 Loc: US Attending Dr: Roscoe Diaz D.O. Ordering Physician: Roscoe Diaz D.O. Date of Service: 01/02/25 Procedure(s): US OB cervical length Accession Number(s): [id number] cc: Roscoe Diaz D.O.; Physician,Non-Staff [place] [address] Patient Name: CARYL ZAMARRIPA MRN: [facility]:[id number] date: 1990 Sex: F Assigned Patient Location: Current Patient Location: Accession/Order Number: [id number] Exam Date: 01/02/2025 22:40 Report Date: 01/02/2025 [...] Briscoe M.D. 01/02/2025 10:47 PM Dictation Location: [place] [address] Electronically authenticated by: [id number] Y Date: 01/02/2025 22:47 Dictated By: Suraj Briscoe D.O. Signed By: 01/02/253 DD/ 46 TD/TT: Medical Transcription Editor: [facility] AFP Single Marker Casey Bangura rnal, Serumon 12-31-2024 Ms Alpha-Fetoprotein Negative [facility] IGP,APTIMA HPV,AGE GDLNon AGE GDLN ACOG TESTING Note . [facility] Comment on above: TESTS RESULT FLAG UN ITS REF RANGE LAB Clinician Provided Cytology Information Source.............[facility] Other.............. No. of containers..01 ThinPrep Vial Age Algo ACOG Enedina... 30-65 01 FLAG LEGEND: L-Low Normal,H-High Normal,LL-Alert Low,HH-Alert High <-Panic Low,>-Panic High,A-Abnormal,AA-Critical Abnormal Performed at: 01 =G [facility] [place] [address] Rossy Odonnell MD, HPV APTIMA Negative Negative [facility] Comment on above: This nucleic acid am plification test detects fourteen high- risk HPV types (16,18,31,33,35,39,45,51,52,56,58,59,66,68) without differentiation. Performed at: =G [facility] [id number] Pharmacovigilance Specialist: Rossy Odonnell MD, Phone: [phone] Performed at: - [facility], [place] [address] Pharmacovigilance Specialist: Rossy Odonnell MD, Phone: [phone] IGP, APTIMA HPV, RFX 16/18,45 Note . [facility] Comment on above: TESTS RESULT FLAG UN ITS REF RANGE LAB DIAGNOSIS: 02 NEGATIVE FOR INTRAEPITHELIAL LESION OR MALIGNANCY. Specimen adequacy: 02 Satisfactory for evaluation. No endocervical component is identified. An endocervical component is not commonly seen in the patient. Performed by: Ronan Lucero T[facility]er [facility] ([facility]) . 02 Note: Note 02 The [...] High <-Panic Low,>-Panic High,A-Abnormal,AA-Critical Abnormal Performed at: [facility] [address] [place] [address] Rossy Odonnell MD, SPATULA-ALONE [facility] RECURRENT VAGINITIS (HTRX)on 12-11-2024 ATOPOBIUM VAGINAE 0 [facility] ATOPOBIUM VAGINAE Not detected [facility] BVAB 2,3 (BACTERIAL VAGINOSIS ASSOCIATED BACTERIA 2, 3); MOBILUNCUS SPP 0 [facility] BVAB 2,3 (BACTERIAL VAGINOSIS ASSOCIATED BACTERIA 2, 3); MOBILUNCUS SPP Not detected [facility] HAMILTON ALBICANS, PARAPSILOSIS, TROPICALIS 0 [facility] HAMILTON ALBICANS, PARAPSILOSIS, TROPICALIS Not detected [facility] HAMILTON GLABRATA 0 [facility] HAMILTON GLABRATA Not detected [facility] HAMILTON KRUSEI 0 [facility] HAMILTON KRUSEI Not detected [facility] CHLAMYDIA TRACHOMATIS 0 [facility] CHLAMYDIA TRACHOMATIS Not detected N [facility] GARDNERELLA VAGINALIS 0 [facility] GARDNERELLA VAGINALIS Not detected N [facility] MEGASPHAERA (TYPES 1, 2) 0 [facility] MEGASPHAERA (TYPES 1, 2) Not detected [facility] MYCOPLASMA GENITALIUM 0 [facility] MYCOPLASMA GENITALIUM Not detected N [facility] NEISSERIA GONORRHOEAE 0 [facility] NEISSERIA GONORRHOEAE Not detected N [facility] TRICHOMONAS VAGINALIS 0 [facility] TRICHOMONAS VAGINALIS Not detected N [facility] Urinalysis macro (dipstick) panel (U)on 12-10-2024 Bilirubin, UA Negative Negative - 4(70) +++ mg/dL [facility] Blood, UA Negative Negative - 50 Iraj/mcL [facility] Clarity, UA Clear [facility] Color, UA Yellow [facility] Glucose, UA Negative Negative - 1999(110) ++++ mg/dL [facility] Interpretation and review of laboratory results Normal [facility] Ketones, UA Negative Negative - 160(16) ++++ mg/dL [facility] Leukocytes, UA Trace Negative - 500+++ Mari/mcL [facility] Nitrite, UA Negative Negative - Positive [facility] pH, UA 6 5 - 9 [facility] Protein, UA Negative Negative - 1999(20) ++++ mg/dL [facility] Spec Grav, UA 1.01 1 - 1.03 [facility] Urobilinogen, UA 0.2 0.2 - 12 mg/dL Counts include 234 beds at the [facility] Urinalysis macro (dipstick) panel (U)on 11-08-2024 Bilirubin, UA Negative Negative - 4(70) +++ mg/dL [facility] Blood, UA Negative Negative - 50 Iraj/mcL [facility] Clarity, UA Clear [facility] Color, UA Yellow [facility] Glucose, UA Negative Negative - 1999(110) ++++ mg/dL [facility] Interpretation and review of laboratory results Normal [facility] Ketones, UA Negative Negative - 160(16) ++++ mg/dL [facility] Leukocytes, UA Negative Negative - 500+++ Mari/mcL [facility] Nitrite, UA Negative Negative - Positive [facility] pH, UA 6 5 - 9 [facility] Protein, UA Negative Negative - 1999(20) ++++ mg/dL [facility] Spec Grav, UA 1.015 1 - 1.03 [facility] Urobilinogen, UA 0.2 0.2 - 12 mg/dL Counts include 234 beds at the [facility] ALL CBC WITH AUTO DIFFon BASOPHILS ABSOLUTE AUTO 0 N [facility] Basophils/100 WBC (Bld) 0.4 % 0.2 - 2.0 % [facility] Eosinophils/100 WBC (Bld) 1.2 % 0.9 - 7.0 % [facility] Erythrocyte distribution width (RBC) [Ratio] 12.4 % 11.0 - 15.0 % [facility] IMMATURE GRANULOCYTES ABS AUTO 0.02 [facility] Immature granulocytes/100 WBC (Bld) 0.2 % 0.0 - 0.5 % [facility] Interpretation and review of laboratory results Abnormal [facility] LYMPHOCYTES ABSOLUTE AUTO 2.2 [facility] Lymphocytes/100 WBC (Bld) 27.2 % 20.5 - 60.0 % [facility] MCH (RBC) [Entitic mass] 33.5 pg 26. 7 - 34.0 pg [facility] MCHC (RBC) [Mass/Vol] 35.3 g/dL High 29.9 - 35.2 g/dL [facility] MCV (RBC) [Entitic vol] 94.9 fL 81.0 - 99.0 fL [facility] MONOCYTES ABSOLUTE AUTO 0.4 N [facility] Monocytes/100 WBC (Bld) 4.9 % 1.7 - 12.0 % [facility] NEUTROPHILS ABSOLUTE AUTO 5.4 [facility] Neutrophils/100 WBC (Bld) 66.1 % 43.0 - 75.0 % [facility] Platelet mean volume (Bld) [Entitic vol] 11.2 fL 9.5 - 13.5 fL [facility] TBH EO # 0.1 [facility] TBH PLT 169 [facility] TB RBC 3.55 Low [facility] TB WBC 8.2 [facility] CBC without diffon Platelets (Bld) [#/Vol] 169 10*3/uL [facility] Rbc Mcv (Fl) By Automated Count 94.9 [facility] Drug Screen, Urineon 025 Amphetamine/Methamphetam ine Negative [facility] Barbiturates Negative [facility] Benzodiazepines Negative [facility] Cocaine Metabolite Negative [facility] Methadone Negative [facility] Opiates Negative [facility] Oxycodone Negative [facility] Phencyclidine Negative [facility] Thc Marijuana, Urine Negative [facility] Free Cell DNAon 2024 Free Cell Dna LOW RISK [facility] HBV surface Ag IA Qlon 10-19 Hepatitis B Surface Antigen Negative [facility] HCV Ab IA Qlon 10-19-2024 HCV Ab Ql (S) Non-Reactive [facility] HIV 1+2 Ab+HIV1 p24 Ag IA Ql on 10-19-2024 HIV 1&2 AB/AG Non-Reactive [facility] Hemoglobin A1con 10-19-2024 HbA1c (Bld) [Mass fraction] 5.1 % 4.0 - 6.0 % [facility] Laboratory - Hematology and Cell countson 10-19-2024 Hematocrit (Bld) [Volume fraction] 33.7 % [facility] Hemoglobin (Bld) [Mass/Vol] 11.9 g/dL [facility] No Panel Informationon 10-19 [facility] Rubella IGG immune statuson 10-19-2024 Rubella immune IgG IMMUNE [facility] T. pallidum IgG+IgM IA Ql (S )on 10-19-2024 Syphilis Non-Reactive [facility] Type and screenon 10-19-2024 Abo/Rh(D) Positive [facility] HCG ( test) Ql (U)o n 10-18-2024 Interpretation and review of laboratory results Abnormal [facility] Preg Test, Ur Positive Negative [...] II, MD, PHD at 20-Oct-2024 07:21:51 AM [facility] Normal Not Available Comment on above: Order Comment: US OB TRANSVAGINAL No LMP recorded. Urinalysis macro (dipstick) panel (U)on 10-18-2024 Bilirubin, UA Negative Negative - 4(70) +++ mg/dL [facility] Blood, UA Negative Negative - 50 Iraj/mcL [facility] Clarity, UA Clear NOMS [facility] Color, UA Yellow [facility] Glucose, UA Negative Negative - 2000(110) ++++ mg/dL [facility] Interpretation and review of laboratory results Normal [facility] Ketones, UA Negative Negative - 160(16) ++++ mg/dL [facility] Leukocytes, UA Negative Negative - 500+++ Mari/mcL [facility] Nitrite, UA Negative Negative - Positive [facility] pH, UA 6 5 - 9 [facility] Protein, UA Negative Negative - 1999(20) ++++ mg/dL [facility] Spec Grav, UA 1.01 1 - 1.03 [facility] Urobilinogen, UA 1.0 0.2 - 12 mg/dL Counts include 234 beds at the [facility] CNOVon 06-29-2024 CNOV Office Visit (INMAVN) CARYL ZAMARRIPA ([id number]) 1990 F Date Time Provider Department 06/29/24 12:40 PM [facility] visit today, we recorded the following information about you: Pulse Blood pressure Weight 65/minute 101/68 75.8 kg Berenice Zepeda APRN.BARTENDER MANAGER 06/29/2024 1:25 PM Signed Caryl J Zamarripa [...] months. - PHENTERMINE 37.5 MG TABLET Berenice Zepeda, BRETT.BARTENDER MANAGER Allergies As of Date: 06/29/2024 (No Known [...] days. BMI 29.58kg/m2 - Omeprazole Magnesium (ACID SPECIAL PROJECTS COORDINATOR, OMEPRAZOLE,) 20 mg cpDR Problem List As Of Date: 06/29/2024 (None) Prescriptions ordered this encounter Disp Refills Start End PHENTERMINE 37.5 MG TABLET 30 t* 0 06/29/2024 07/29/2024 Route: ORAL Sig: Take 1 tablet by mouth once daily for 30 days. BMI 29.58kg/m2 Encounter Status:Closed by BERENICE ZEPEDA on 06/29/24 Normal [facility] CNOVon 08-23-2023 CNOV Office Visit (INMAVN) RADHA ZAMARRIPAANDA Ankur ([id number]) 1990 F Date Time Provider Department 08/23/23 4:00 PM BERENICE ZEPEDA [facility] During your visit today, we recorded the following information about you: Pulse Blood pressure Weight Last Period 54/minute 121/77 77.6 kg 08/08/23 Berenice Zepeda APRN.BARTENDER MANAGER 08/25/2023 12:23 PM Signed Caryllydia Zamarripa is a 32 year old female [...] - PHENTERMINE 37.5 MG TABLET Berenice Zepeda APRN.BARTENDER MANAGER Allergies As of Date: 08/23/2023 (No Known [...] for 2 days. - Omeprazole Magnesium (ACID SPECIAL PROJECTS COORDINATOR, OMEPRAZOLE,) 20 mg cpDR Problem List [...] Status:Closed by BERENICE ZEPEDA on 08/25/23 Normal [facility] CBC W Auto Differential pane l (Bld)on 07-26-2023 Basophils (Bld) [#/Vol] 0.03 10*3/uL Normal <0.11 [facility] Comment on above: Order Comment: Speci men Type: BLOOD SPECIMEN Ordering Facility: [facility] Address: [address] [place] [address] Performed By: #### 5 7021-8 #### [facility] CLIA [id number] [address] [place] [address] Basophils/100 WBC (Bld) 0.6 % Normal [facility] Comment on above: Order Comment: Speci men Type: BLOOD SPECIMEN Ordering Facility: [facility] Address: [address] [place] [address] Performed By: #### 5 7021-8 #### [facility] CLIA [id number] [address] [place] [address] Differential cell count method Nom (Bld) Auto Normal [facility] Comment on above: Order Comment: Speci men Type: BLOOD SPECIMEN Ordering Facility: [facility] Address: [address] [place] [address] Performed By: #### 5 7021-8 #### [facility] CLIA [id number] [address] [place] [address] Eosinophils (Bld) [#/Vol] 0.13 10*3/uL Normal <0.46 [facility] Comment on above: Order Comment: Speci men Type: BLOOD SPECIMEN Ordering Facility: [facility] Address: [address] [place] [address] Performed By: #### 5 7021-8 #### [facility] CLIA [id number] [address] [place] [address] Eosinophils/100 WBC (Bld) 2.6 % Normal [facility] Comment on above: Order Comment: Speci men Type: BLOOD SPECIMEN Ordering Facility: [facility] Address: [address] [place] [address] Performed By: #### 5 7021-8 #### [facility] CLIA [id number] [address] [place] [address] Erythrocyte distribution width (RBC) [Ratio] 12.1 % Normal 11.5-15.0 [facility] Comment on above: Order Comment: Speci men Type: BLOOD SPECIMEN Ordering Facility: [facility] Address: [address] [place] [address] Performed By: #### 5 7021-8 #### [facility] CLIA [id number] [address] [place] [address] Hematocrit (Bld) [Volume fraction] 37.0 % Normal 36.0-46.0 [facility] Comment on above: Order Comment: Speci men Type: BLOOD SPECIMEN Ordering Facility: [facility] Address: [address] [place] [address] Performed By: #### 5 7021-8 #### [facility] CLIA [id number] [address] [place] [address] Hemoglobin (Bld) [Mass/Vol] 12.6 g/dL Normal 11.5-15.5 [facility] Comment on above: Order Comment: Speci men Type: BLOOD SPECIMEN Ordering Facility: [facility] Address: [address] [place] [address] Performed By: #### 5 7021-8 #### [facility] CLIA [id number] [address] [place] [address] Immature granulocytes (Bld) [#/Vol] 10*3/uL Normal <0.10 [facility] Comment on above: Order Comment: Speci men Type: BLOOD SPECIMEN Ordering Facility: [facility] Address: [address] [place] [address] Performed By: #### 5 7021-8 #### [facility] CLIA [id number] [address] [place] [address]09 Immature granulocytes/100 WBC (Bld) 0.2 % Normal [facility] Comment on above: Order Comment: Speci men Type: BLOOD SPECIMEN Ordering Facility: [facility] Address: [address] [place] [address] Performed By: #### 5 7021-8 #### [facility] CLIA [id number] [address] [place] [address]92 Lymphocytes (Bld) [#/Vol] 1.57 10*3/uL Normal 1.00-4.00 [facility] Comment on above: Order Comment: Speci men Type: BLOOD SPECIMEN Ordering Facility: [facility] Address: [address] [place] [address] Performed By: #### 5 7021-8 #### [facility] CLIA [id number] [address] [place] [address]82 Lymphocytes/100 WBC (Bld) 31.2 % Normal [facility] Comment on above: Order Comment: Speci men Type: BLOOD SPECIMEN Ordering Facility: [facility] Address: [address] [place] [address] Performed By: #### 5 7021-8 #### [facility] CLIA [id number] [address] [place] [address]6625 MCH (RBC) [Entitic mass] 32.2 pg Normal 26.0-34.0 [facility] Comment on above: Order Comment: Speci men Type: BLOOD SPECIMEN Ordering Facility: [facility] Address: [address] [place] [address] Performed By: #### 5 7021-8 #### [facility] CLIA [id number] [address] [place] [address]440 MCHC (RBC) [Mass/Vol] 34.1 g/dL Normal 30.5-36.0 [facility] Comment on above: Order Comment: Speci men Type: BLOOD SPECIMEN Ordering Facility: [facility] Address: [address] [place] [address] Performed By: #### 5 7021-8 #### [facility] CLIA [id number] [address] [place] [address]142 MCV (RBC) [Entitic vol] 94.6 fL Normal 80.0-100.0 [facility] Comment on above: Order Comment: Speci men Type: BLOOD SPECIMEN Ordering Facility: [facility] Address: [address] [place] [address] Performed By: #### 5 7021-8 #### [facility] CLIA [id number] [address] [place] [address]777 Monocytes (Bld) [#/Vol] 0.32 10*3/uL Normal <0.87 [facility] Comment on above: Order Comment: Speci men Type: BLOOD SPECIMEN Ordering Facility: [facility] Address: [address] [place] [address] Performed By: #### 5 7021-8 #### [facility] CLIA [id number] [address] [place] [address]250 Monocytes/100 WBC (Bld) 6.3 % Normal [facility] Comment on above: Order Comment: Speci men Type: BLOOD SPECIMEN Ordering Facility: [facility] Address: [address] [place] [address] Performed By: #### 5 7021-8 #### [facility] CLIA [id number] [address] [place] [address]113 Neutrophils (Bld) [#/Vol] 2.98 10*3/uL Normal 1.45-7.50 [facility] Comment on above: Order Comment: Speci men Type: BLOOD SPECIMEN Ordering Facility: [facility] Address: [address] [place] [address] Performed By: #### 5 7021-8 #### [facility] CLIA [id number] [address] [place] [address] 65614 Neutrophils/100 WBC (Bld) 59.1 % Normal [facility] Comment on above: Order Comment: Speci men Type: BLOOD SPECIMEN Ordering Facility: [facility] Address: [address] [place] [address] Performed By: #### 5 7021-8 #### [facility] CLIA [id number] [address] [place] [address] Nucleated RBC (Bld) [#/Vol] 10*3/uL Normal <0.01 [facility] Comment on above: Order Comment: Speci men Type: BLOOD SPECIMEN Ordering Facility: [facility] Address: [address] [place] [address] Performed By: #### 5 7021-8 #### [facility] CLIA [id number] [address] [place] [address] Nucleated RBC/100 WBC (Bld) [Ratio] 0.0 /100 WBC Normal [facility] Comment on above: Order Comment: Speci men Type: BLOOD SPECIMEN Ordering Facility: [facility] Address: [address] [place] [address] Performed By: #### 5 7021-8 #### [facility] CLIA [id number] [address] [place] [address] 18023 Platelet mean volume (Bld) [Entitic vol] 10.6 fL Normal 9.0-12.7 [facility] Comment on above: Order Comment: Speci men Type: BLOOD SPECIMEN Ordering Facility: [facility] Address: [address] [place] [address] Performed By: #### 5 7021-8 #### [facility] CLIA [id number] [address] [place] [address] 19859 Platelets (Bld) [#/Vol] 226 10*3/uL Normal 150-400 [facility] Comment on above: Order Comment: Speci men Type: BLOOD SPECIMEN Ordering Facility: [facility] Address: [address] [place] [address] Performed By: #### 5 7021-8 #### [facility] CLIA [id number] [address] [place] [address] RBC (Bld) [#/Vol] 3.91 10*6/uL Normal 3.90-5.20 [facility] Comment on above: Order Comment: Speci men Type: BLOOD SPECIMEN Ordering Facility: [facility] Address: [address] [place] [address] Performed By: #### 5 7021-8 #### [facility] CLIA [id number] [address] [place] [address] 02041 WBC (Bld) [#/Vol] 5.04 10*3/uL Normal 3.70-11.00 [facility] Comment on above: Order Comment: Speci men Type: BLOOD SPECIMEN Ordering Facility: [facility] Address: [address] [place] [address] Performed By: #### 5 7021-8 #### [facility] CLIA [id number] [address] [place] [address] 41765 Comprehensive metabolic 2000 panelon 07-26-2023 Albumin [Mass/Vol] 4.4 g/dL Normal 3.9-4.9 [facility] Comment on above: Order Comment: Speci men Type: BLOOD SPECIMEN Ordering Facility: [facility] Address: [address] [place] [address] Performed By: #### 2 4323-8 #### [facility] CLIA [id number] [address] [place] [address] 78363 ALP [Catalytic activity/Vol] 40 U/L Normal 34-123 [facility] Comment on above: Order Comment: Speci men Type: BLOOD SPECIMEN Ordering Facility: [facility] Address: [address] [place] [address] Performed By: #### 2 4323-8 #### [facility] CLIA [id number] [address] [place] [address] 85413 ALT [Catalytic activity/Vol] 5 U/L Low 7-38 [facility] Comment on above: Order Comment: Speci men Type: BLOOD SPECIMEN Ordering Facility: [facility] Address: [address] [place] [address] Performed By: #### 2 4323-8 #### [facility] CLIA [id number] [address] [place] [address] 31971 Anion gap [Moles/Vol] 8 mmol/L Low 9-18 [facility] Comment on above: Order Comment: Speci men Type: BLOOD SPECIMEN Ordering Facility: [facility] Address: [address] [place] [address] Performed By: #### 2 4323-8 #### [facility] CLIA [id number] [address] [place] [address] 60305 AST [Catalytic activity/Vol] 7 U/L Low 13-35 [facility] Comment on above: Order Comment: Speci men Type: BLOOD SPECIMEN Ordering Facility: [facility] Address: [address] [place] [address] Performed By: #### 2 432-8 #### [facility] CLIA [id number] [address] [place] [address] 46962 Bilirubin [Mass/Vol] 0.6 mg/dL Normal 0.2-1.3 [facility] Comment on above: Order Comment: Speci men Type: BLOOD SPECIMEN Ordering Facility: [facility] Address: [address] [place] [address] Performed By: #### 2 4323-8 #### [facility] CLIA [id number] [address] [place] [address] 43166 Calcium [Mass/Vol] 9.5 mg/dL Normal 8.5-10.2 [facility] Comment on above: Order Comment: Speci men Type: BLOOD SPECIMEN Ordering Facility: [facility] Address: [address] [place] [address] Performed By: #### 2 4323-8 #### [facility] CLIA [id number] [address] [place] [address] 05517 Chloride [Moles/Vol] 105 mmol/L Normal 97-105 [facility] Comment on above: Order Comment: Speci men Type: BLOOD SPECIMEN Ordering Facility: [facility] Address: [address] [place] [address] Performed By: #### 2 4323-8 #### [facility] [facility] CLIA [id number] [address] [place] [address] CO2 [Moles/Vol] 27 mmol/L Normal 22-30 [facility] Comment on above: Order Comment: Speci men Type: BLOOD SPECIMEN Ordering Facility: [facility] Address: [address] [id number] Performed By: #### 2 4323-8 #### [facility] CLIA [id number] [address] [place] [address]67 Creatinine [Mass/Vol] 0.76 mg/dL Normal 0.58-0.96 [facility] Comment on above: Order Comment: Speci men Type: BLOOD SPECIMEN Ordering Facility: [facility] Address: [address] [place] [address] Performed By: #### 2 4323-8 #### [facility] CLIA [id number] [address] [place] [address]39 Creatinine and Glomerular filtration rate.predicted panel (S/P/Bld) 108 mL/min/1.73m??? Normal >=60 [facility] Comment on above: Order Comment: Speci men Type: BLOOD SPECIMEN Ordering Facility: [facility] Address: [address] [place] [address] Result Comment: Erma mated Glomerular Filtration Rate [...] GFR. Performed By: #### 2 4323-8 #### [facility] CLIA [id number] [address] [place] [address]00 Glucose [Mass/Vol] 93 mg/dL Normal 74-99 [facility] Comment on above: Order Comment: Speci men Type: BLOOD SPECIMEN Ordering Facility: [facility] Address: [address] [place] [address] Result Comment: The [place] Diabetes Association (ADA) provides guidance for cutoff [...] Standards of Medical Care in Diabetes 2016, [place] Diabetes Association. Diabetes Care. 2016.39(Suppl 1). Performed By: #### 2 4323-8 #### [facility] CLIA [id number] [address] [place] [address]773 Potassium [Moles/Vol] 4.2 mmol/L Normal 3.7-5.1 [facility] Comment on above: Order Comment: Speci men Type: BLOOD SPECIMEN Ordering Facility: [facility] Address: [address] [place] [address] Performed By: #### 2 4323-8 #### [facility] CLIA [id number] [address] [place] [address]80 Protein [Mass/Vol] 7.2 g/dL Normal 6.3-8.0 [facility] Comment on above: Order Comment: Speci men Type: BLOOD SPECIMEN Ordering Facility: [facility] Address: [address] [place] [address] Performed By: #### 2 4323-8 #### [facility] CLIA [id number] [address] [place] [address] 95648 Sodium [Moles/Vol] 140 mmol/L Normal 136-144 [facility] Comment on above: Order Comment: Speci men Type: BLOOD SPECIMEN Ordering Facility: [facility] Address: [address] [place] [address] Performed By: #### 2 4323-8 #### [facility] CLIA [id number] [address] [place] [address]331 Urea nitrogen [Mass/Vol] 11 mg/dL Normal 7-21 [facility] Comment on above: Order Comment: Speci men Type: BLOOD SPECIMEN Ordering Facility: [facility] Address: [address] [place] [address] Performed By: #### 2 4323-8 #### [facility] CLIA [id number] [address] [place], [place] [address] HBV surface Ab Ql (S)on HBV surface Ab Qn (S) <8.00 Normal [facility] Comment on above: Order Comment: Speci men Type: BLOOD SPECIMEN Ordering Facility: [facility] Address: [address] [place] [address] Result Comment: <8 m IU/mL: No serological evidence of immunity to Hepatitis B Virus. >/= 8 to <12 mIU/mL: No serological evidence of immunity to Hepatitis B Virus. >/= 12 mIU/mL: Consistent with serological evidence of immunity to Hepatitis B Virus. Performed By: #### 2 2322-2 #### [facility] CLIA [id number] [address] [place] [address] [place] HBV surface Ab Ser Qlon HBV surface Ab Ql (S) Negative Normal [facility] Comment on above: Order Comment: Speci men Type: BLOOD SPECIMEN Ordering Facility: [facility] Address: [address] [place] [address] Result Comment: No s erological evidence of immunity to Hepatitis B Virus. Performed By: #### 2 2322-2 #### [facility] CLIA [id number] [address] [place] [address] [place] HbA1c (Bld)on 07-26-2023 Average glucose Estimated from glycated hemoglobin (Bld) [Mass/Vol] 94 mg/dL Normal [facility] Comment on above: Order Comment: Speci men Type: BLOOD SPECIMEN Ordering Facility: [facility] Address: [address] [place] [address] Result Comment: eAG: (Estimated average glucose) is a calculated value from HgbA1c and is home office representative of the average blood glucose level in the last 2-3 month period. Performed By: #### 5 5454-3 #### [facility] CLIA [id number] [address] [place] [address] [place] HbA1c (Bld) [Mass fraction] 4.9 % Normal 4.3-5.6 [facility] Comment on above: Order Comment: Mary head Type: BLOOD SPECIMEN Ordering Facility: [facility] Address: [address] [place] [address] Result Comment: [place] Diabetes Association guidelines indicate that patients with HgbA1c in the range 5.7-6.4% are at increased risk for development of diabetes, and intervention by lifestyle modification may be beneficial. HgbA1c greater or equal to 6.5% is considered diagnostic of diabetes. Performed By: #### 5 5454-3 #### [facility] CLIA [id number] [address] [place] [address] [place] Lipid 1996 panelon 3 Cholesterol [Mass/Vol] 172 mg/dL Normal <200 [facility] Comment on above: Order Comment: Mary head Type: BLOOD SPECIMEN Ordering Facility: [facility] Address: [address] [place] [address] Result Comment: <200 mg/dL, Desirable 200-239 mg/dL, Borderline high >239 mg/dL, High Performed By: #### 2 4331-1 #### [facility] CLIA [id number] [address] [place] [address] [place] [facility] CLIA [id number] [address] [place] [address] Cholesterol in HDL [Mass/Vol] 58 mg/dL Normal >39 [facility] Comment on above: Order Comment: Mary head Type: BLOOD SPECIMEN Ordering Facility: [facility] Address: [address] [place] [address] Result Comment: 40-5 9 mg/dL, Acceptable >59 mg/dL, High: Negative risk factor for coronary heart disease <40 mg/dL, Low: Positive risk factor for coronary heart disease Performed By: #### 2 4331-1 #### [facility] CLIA [id number] [address] [facility] CLIA [id number] [address] [place] [address] Cholesterol in LDL [Mass/Vol] 103 mg/dL High <100 [facility] Comment on above: Order Comment: Speci men Type: BLOOD SPECIMEN Ordering Facility: [facility] Address: [address] [place] [address] Result Comment: <100 mg/dL, Optimal 100-129 mg/dL, Near optimal/above optimal 130-159 mg/dL, Borderline high 160-189 mg/dL, High >189 mg/dL, Very high Secondary prevention optimal LDL Cholesterol levels are recommended to be < 70 mg/dL Performed By: #### 2 4331-1 #### [facility] CLIA [id number] [address] [facility] CLIA [id number] [address] [place] [address] 81298 Cholesterol in LDL/Cholesterol in HDL [Mass ratio] 1.78 {ratio} Normal <2.54 [facility] Comment on above: Order Comment: Speci men Type: BLOOD SPECIMEN Ordering Facility: [facility] Address: [address] [place] [address] Result Comment: Refemelia rence: 1. National Cholesterol Education Program ATP III Guideline At-A-Glance Quick Desk Reference: National Heart, Lung, and Blood [place]. National Institutes of Health. 2001: NIH Publication No. 01-3305. 2. An International Atherosclerosis Society position paper: global recommendations for the management of dyslipidemia: executive summary, Atherosclerosis. 2014: 232(2):410-413. Performed By: #### 2 4331-1 #### [facility] CLIA [id number] [address] [facility] CLIA [id number] [address] [place] [address]1983 Cholesterol in VLDL [Mass/Vol] 11 mg/dL Normal <30 [facility] Comment on above: Order Comment: Speci men Type: BLOOD SPECIMEN Ordering Facility: [facility] Address: [address] [place] [address] Performed By: #### 2 4331-1 #### [facility] CLIA [id number] [address] [place] [address] LAB CLIA [id number] [address] [place] [address] 32526 Cholesterol non HDL [Mass/Vol] 114 mg/dL Normal <130 [facility] Comment on above: Order Comment: Micki men Type: BLOOD SPECIMEN Ordering Facility: [facility] Address: [address] [place] [address] Result Comment: <130 mg/dL, Optimal 130-159 mg/dL, Near optimal/above optimal 160-189 mg/dL, Borderline high 190-219 mg/dL, High >219 mg/dL, Very high Secondary prevention optimal non HDL Cholesterol levels are recommended to be <100 mg/dL Performed By: #### 2 4331-1 #### [facility] CLIA [id number] [address] [place] [address] LAB CLIA [id number] [address] [place] [address]808 Cholesterol.total/Choles terol in HDL [Mass ratio] 2.97 {ratio} Normal <5.10 [facility] Comment on above: Order Comment: Speci men Type: BLOOD SPECIMEN Ordering Facility: [facility] Address: [address] [id number] Performed By: #### 2 4331-1 #### [facility] CLIA [id number] [address] [place], [place] [address] [facility] CLIA [id number] [address] [place] [address] FASTING TIME 12 hrs Normal [facility] Comment on above: Order Comment: Speci men Type: BLOOD SPECIMEN Ordering Facility: [facility] Address: [address] [place] [address] Performed By: #### 2 4331-1 #### [facility] CLIA [id number] [address] [place] [address] LAB CLIA [id number] [address] [place], [place] [address] Triglyceride [Mass/Vol] 53 mg/dL Normal <150 [facility] Comment on above: Order Comment: Speci men Type: BLOOD SPECIMEN Ordering Facility: [facility] Address: [address] [place] [address] Result Comment: <150 mg/dL, Normal 150-199 mg/dL, Borderline high 200-499 mg/dL, High >499 mg/dL, Very high Performed By: #### 2 4331-1 #### [facility] CLIA [id number] [address] [place] [address] LAB CLIA [id number] [address] [place] [address] CNOVon 07-21-2023 CNOV Office Visit (INMAVN) CARYL ZAMARRIPA ([id number]) 1990 F Date Time Provider Department 07/21/23 4:20 PM BERENICE ZEPEDA INDCJUAN During your visit today, we recorded the following information about you: Pulse Blood pressure Weight Height 60/minute 112/74 80.1 kg 1.612 m Last Period 07/09/23 Berenice Zepeda APRN.[facility] 07/22/2023 10:16 AM Signed Caryl Zamarripa is a 32 year old female here today for review of established medical problems as well as comprehensive physical examination. Obesity S/p gastric sleeve surgery in 03/2022 at [facility] in [place] Down about 70lb, has reached plateau Gym 4 days per week with cardio (treadmill, elliptical) Maybe not enough water Tries to focus on more protein, lower carbs Last 10 Encounter Wt Readings: Date: Wt: 07/21/2023 80.1 kg (176 lb 8 oz) 07/06/2022 81.6 kg (180 lb) 01/15/2022 104.3 kg (230 lb) [facility] HM needs: Hepatitis B Vaccine(1 of 3 - 3-dose series) Never done Depression Assessment Never done HPV Testing Never done PAST MEDICAL HISTORY Diagnosis Date GERD (gastroesophageal reflux disease) Prediabetes PAST SURGICAL HISTORY Procedure Laterality Date PT ED BARIATRIC AND METABOLIC gastric sleeve 03/2022 ALLERGIES Patient has no known allergies. 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 Sensation grossly intact. Breast/Pelvic: Per [employer]ER ASSESSMENT/PLAN: 1. Routine adult health maintenance - ICD9: V70.0, ICD10: Z00.00 (primary diagnosis) - Counseled on healthy diet and regular exercise - Calcium intake with supplements or by diet of 1000 mg/day for under 50, 7000-3189 mg/day for 50+ - Discussed need and benefit for weight loss. BMI 30.81 kg/(m2) - HGB A1C - COMP METABOLIC PANEL - LIPID PANEL BASIC - CBC + DIFF 2. IFG (impaired fasting glucose) - ICD9: 790.21, ICD10: (more content not included)... Normal [facility] Basophils Auto (Bld) [#/Vol] Ordered By: Reena Breaux on 10-11-2022 Basophils (Bld) [#/Vol] 0.0 10*3/uL 0.0-0.2 [facility] Basophils/100 WBC Auto (Bld) Ordered By: Reena Breaux on 10-11-2022 Basophils/100 WBC (Bld) 0.7 % . [facility] Body fluid albumin measureme nt (mass/volume)Ordered By: Reena Breaux on 10-11-2022 Albumin (Body fld) [Mass/Vol] 4.0 g/dL 3.2-5.[address] [facility] [address] biopsyOrdered By: Reena malhotra on 10-11-2022 Transferrin [Mass/Vol] 206 mg/dL 180-380 [facility] Complete Blood Count Auto Di ffon 10-11-2022 Basophils (Bld) [#/Vol] 0.0 10*3/uL Normal 0.0-0.2 [facility] Comment on above: Result Comment: PERF ORMED BY: [place] [address] PATHOLOGIST [employer]IDE [employer]ISHER AMANDA CALLE M.D. Performed By: #### P HOS, [id number], CMP, CBC, [id number], FE PRO, MG #### [facility] [address] [place] [address] #### VITB1 #### [facility] , Basophils/100 WBC (Bld) 0.7 % Normal . [facility] Comment on above: Performed By: #### P HOS, [id number], CMP, CBC, [id number], FE PRO, MG #### [facility] [address] [place] [address] [place] #### VITB1 #### [facility] , Eosinophils (Bld) [#/Vol] 0.1 10*3/uL Normal 0.0-0.45 [facility] Comment on above: Performed By: #### P HOS, [id number], CMP, CBC, [id number], FE PRO, MG #### [facility] [address] [place] [address] #### VITB1 #### [facility] , Eosinophils/100 WBC (Bld) 1.7 % Normal . [facility] Comment on above: Performed By: #### P HOS, [id number], CMP, CBC, [id number], FE PRO, MG #### [facility] [address] [place] [address] [place] #### VITB1 #### [facility] , Erythrocyte distribution width (RBC) [Ratio] 12.9 % Normal 11.9-15.3 [facility] Comment on above: Performed By: #### P HOS, [id number], CMP, CBC, [id number], FE PRO, MG #### [address] #### VITB1 #### [facility] , Hematocrit (Bld) [Volume fraction] 39.1 % Normal 34.0-46.4 [facility] Comment on above: Performed By: #### P HOS, [id number], CMP, CBC, [id number], FE PRO, MG #### [facility] [address] [place] [address] #### VITB1 #### [facility] , Hemoglobin (Bld) [Mass/Vol] 13.1 g/dL Normal 11.8-15.4 [facility] Comment on above: Performed By: #### P HOS, [id number], CMP, CBC, [id number], FE PRO, MG #### [facility] [address] [place] [address] [place] #### VITB1 #### [facility] , Lymphocytes (Bld) [#/Vol] 2.7 10*3/uL Normal 1.00-4.8 [facility] Comment on above: Performed By: #### P HOS, [id number], CMP, CBC, [id number], FE PRO, MG #### [address] #### VITB1 #### [facility] , Lymphocytes/100 WBC (Bld) 39.8 % Normal . [facility] Comment on above: Performed By: #### P HOS, [id number], CMP, CBC, [id number], FE PRO, MG #### [facility] [address] [place] [address] [place] #### VITB1 #### [facility] , MCH (RBC) [Entitic mass] 31.9 pg Normal 24.7-34.3 [facility] Comment on above: Performed By: #### P HOS, [id number], CMP, CBC, [id number], FE PRO, MG #### [address] #### VITB1 #### [facility] , MCV (RBC) [Entitic vol] 95.3 fL Normal 80-100 [facility] Comment on above: Performed By: #### P HOS, [id number], CMP, CBC, [id number], FE PRO, MG #### [address] #### VITB1 #### [facility] , Mean Corpuscular HGB Conc 33.5 g/dL Normal 32.0-35.0 [facility] Comment on above: Performed By: #### P HOS, [id number], CMP, CBC, [id number], FE PRO, MG #### [place] [address] [place] #### VITB1 #### [facility] , Monocytes (Bld) [#/Vol] 0.3 10*3/uL Normal 0.0-0.8 [facility] Comment on above: Performed By: #### P HOS, [id number], CMP, CBC, [id number], FE PRO, MG #### [address] [place] [address] [place] #### VITB1 #### [facility] , Monocytes/100 WBC (Bld) 5.1 % Normal . [facility] Comment on above: Performed By: #### P HOS, [id number], CMP, CBC, [id number], FE PRO, MG #### [facility] [address] [place] [address] [place] #### VITB1 #### [facility] , Neutrophils (Bld) [#/Vol] 3.6 10*3/uL Normal 1.8-7.7 [facility] Comment on above: Performed By: #### P HOS, [id number], CMP, CBC, [id number], FE PRO, MG #### [facility] [address] [place] [address] #### VITB1 #### [facility] , Neutrophils/100 WBC (Bld) 52.7 % Normal . [facility] Comment on above: Performed By: #### P HOS, [id number], CMP, CBC, [id number], FE PRO, MG #### [facility] [address] [place] [address] #### VITB1 #### [facility] , NRBC% 0.0 /100{WBC} Normal 0-0.5 [facility] Comment on above: Performed By: #### P HOS, [id number], CMP, CBC, [id number], FE PRO, MG #### [facility] [address] [place] [address] [place] #### VITB1 #### [facility] , Platelet mean volume (Bld) [Entitic vol] 9.8 fL Normal 6.3-10.7 [facility] Comment on above: Performed By: #### P HOS, [id number], CMP, CBC, [id number], FE PRO, MG #### [facility] [address] [place] [address] #### VITB1 #### [facility] , Platelets (Bld) [#/Vol] 226 10*3/uL Normal 150-450 [facility] Comment on above: Performed By: #### P HOS, [id number], CMP, CBC, [id number], FE PRO, MG #### [facility] [address] [place] [address] #### VITB1 #### [facility] , RBC (Bld) [#/Vol] 4.11 10*6/uL Normal 3.60-5.00 [facility] Comment on above: Performed By: #### P HOS, [id number], CMP, CBC, [id number], FE PRO, MG #### [facility] [address] [place] [address] #### VITB1 #### [facility] , WBC (Bld) [#/Vol] 6.8 10*3/uL Normal 3.8-11.6 [facility] Comment on above: Performed By: #### P HOS, [id number], CMP, CBC, [id number], FE PRO, MG #### [facility] [address] [place] [address] #### VITB1 #### [facility] , Comprehensive Metabolic Pane nicole 10-11-2022 Albumin [Mass/Vol] 4.0 g/dL Normal 3.2-5.5 [facility] Comment on above: Performed By: #### P HOS, [id number], CMP, CBC, [id number], FE PRO, MG #### [facility] [address] [place] [address] [place] #### VITB1 #### [facility] , Albumin/Globulin [Mass ratio] 1.4 {ratio} Normal [facility] Comment on above: Performed By: #### P HOS, [id number], CMP, CBC, [id number], FE PRO, MG #### [facility] [address] [place] [address] #### VITB1 #### [facility] , ALP [Catalytic activity/Vol] 36 U/L Normal 32-92 [facility] Comment on above: Performed By: #### P HOS, [id number], CMP, CBC, [id number], FE PRO, MG #### [facility] [address] [place] [address] [place] #### VITB1 #### [facility] , ALT [Catalytic activity/Vol] 12 U/L Normal 10-60 [facility] Comment on above: Performed By: #### P HOS, [id number], CMP, CBC, [id number], FE PRO, MG #### [facility] [address] [place] [address] #### VITB1 #### [facility] , Anion gap [Moles/Vol] 11.6 mmol/L Normal 6.0-15.0 [facility] Comment on above: Performed By: #### P HOS, [id number], CMP, CBC, [id number], FE PRO, MG #### [facility] [address] [place] [address] #### VITB1 #### [facility] , AST [Catalytic activity/Vol] 11 U/L Normal 10-42 [facility] Comment on above: Performed By: #### P HOS, [id number], CMP, CBC, [id number], FE PRO, MG #### [facility] [address] [place] [address] [place] #### VITB1 #### [facility] , Bilirubin [Mass/Vol] 0.3 mg/dL Normal 0.3-1.2 [facility] Comment on above: Performed By: #### P HOS, [id number], CMP, CBC, [id number], FE PRO, MG #### [facility] [address] [place] [address] [place] #### VITB1 #### [facility] , Calcium [Mass/Vol] 9.3 mg/dL Normal 8.2-10.2 [facility] Comment on above: Performed By: #### P HOS, [id number], CMP, CBC, [id number], FE PRO, MG #### [facility] [address] [place] [address] [place] #### VITB1 #### [facility] , Chloride [Moles/Vol] 103 mmol/L Normal 95-114 [facility] Comment on above: Performed By: #### P HOS, [id number], CMP, CBC, [id number], FE PRO, MG #### [facility] [address] [place] [address] #### VITB1 #### [facility] , CO2 [Moles/Vol] 26.4 mmol/L Normal 22.0-30.0 [facility] Comment on above: Performed By: #### P HOS, [id number], CMP, CBC, [id number], FE PRO, MG #### [facility] [address] [place] [address] #### VITB1 #### [facility] , Creatinine [Mass/Vol] 0.70 mg/dL Normal 0.44-1.03 [facility] Comment on above: Performed By: #### P HOS, [id number], CMP, CBC, [id number], FE PRO, MG #### [facility] [address] [place] [address] [place] #### VITB1 #### [facility] , Estimated GFR ( Christiano > 60 Normal [facility] Comment on above: Result Comment: GFR estimated reference range: According to KDOQI guidelines, <60 ml/min/1.73m2 is sufficient to diagnose a patient with chronic kidney disease. Performed By: #### P HOS, [id number], CMP, CBC, [id number], FE PRO, MG #### [facility] [address] [place] [address] [place] #### VITB1 #### [facility] , Estimated GFR (Non- Am > 60 Normal [facility] Comment on above: Performed By: #### P HOS, [id number], CMP, CBC, [id number], FE PRO, MG #### [facility] [address] [place] [address] [place] #### VITB1 #### [facility] , Globulin (S) [Mass/Vol] 2.8 g/dL Normal [facility] Comment on above: Performed By: #### P HOS, [id number], CMP, CBC, [id number], FE PRO, MG #### [address] #### VITB1 #### [facility] , Glucose [Mass/Vol] 85 mg/dL Normal 70-100 [facility] Comment on above: Result Comment: [facility] Glucose Reference Range is dependent on time and content of last meal. Glucose of more than 200 mg/dL in a nonstressed, ambulatory subject supports the diagnosis of Diabetes Mellitus. ADA recommended reference range Performed By: #### P HOS, [id number], CMP, CBC, [id number], FE PRO, MG #### [facility] [address] [place] [address] [place] #### VITB1 #### [facility] , Potassium [Moles/Vol] 4.0 mmol/L Normal 3.5-5.1 [facility] Comment on above: Performed By: #### P HOS, [id number], CMP, CBC, [id number], FE PRO, MG #### [facility] [address] [place] [address] [place] #### VITB1 #### [facility] , Protein [Mass/Vol] 6.8 g/dL Normal 6.1-7.9 [facility] Comment on above: Performed By: #### P HOS, [id number], CMP, CBC, [id number], FE PRO, MG #### [facility] [address] [place] [address] [place] #### VITB1 #### [facility] , Sodium [Moles/Vol] 137 mmol/L Normal 136-146 [facility] Comment on above: Performed By: #### P HOS, [id number], CMP, CBC, [id number], FE PRO, MG #### [facility] [address] [place] [address] [place] #### VITB1 #### [facility] , Urea nitrogen [Mass/Vol] 11 mg/dL Normal 9-23 [facility] Comment on above: Performed By: #### P HOS, [id number], CMP, CBC, [id number], FE PRO, MG #### [facility] [address] [place] [address] [place] #### VITB1 #### [facility] , Creatinine and Glomerular fi ltration rate.predicted panel (S/P/Bld)Ordered By: Reena Breaux on 10-11-2022 Creatinine [Mass/Vol] 0.70 mg/dL 0.44-1.03 [facility] Eosinophils Auto (Bld) [#/Vo l]Ordered By: Reena Breaux on 10-11-2022 Eosinophils (Bld) [#/Vol] 0.1 10*3/uL 0.0-0.45 [facility] Eosinophils/100 WBC Auto (Bl d)Ordered By: Reena Breaux on 10-11-2022 Eosinophils/100 WBC (Bld) 1.7 % . [facility] Erythrocyte distribution wid th Auto (RBC) [Ratio]Ordered By: Reena Breaux on 10-11-2022 Erythrocyte distribution width (RBC) [Ratio] 12.9 % 11.9-15.3 [facility] Estimated glomerular filtrat ion rate (GFR) non- AmericanOrdered By: Reena Breaux on 02-20-2023 GFR/1.73 sq M.predicted among non-blacks MDRD (S/P/Bld) [Vol rate/Area] > 60 mL/Min [facility] FE PROon 10-11-2022 % Iron Saturation 24.0 % Normal 20-50 [facility] Comment on above: Performed By: #### P HOS, [id number], CMP, CBC, [id number], FE PRO, MG #### [facility] [address] [place] [address] [place] #### VITB1 #### [facility] , Ferritin [Mass/Vol] 29.2 ng/mL Normal 11-306.8 [facility] Comment on above: Performed By: #### P HOS, [id number], CMP, CBC, [id number], FE PRO, MG #### [facility] [address] [place] [address] #### VITB1 #### [facility] , Iron [Mass/Vol] 69 ug/dL Normal 40-150 [facility] Comment on above: Performed By: #### P HOS, [id number], CMP, CBC, [id number], FE PRO, MG #### [facility] [address] [place] [address] [place] #### VITB1 #### [facility] , Total Iron Binding Capacity 288 ug/dL Normal 255-450 [facility] Comment on above: Performed By: #### P HOS, [id number], CMP, CBC, [id number], FE PRO, MG #### [facility] [address] [place] [address] [place] #### VITB1 #### [facility] , Transferrin [Mass/Vol] 206 mg/dL Normal 180-380 [facility] Comment on above: Performed By: #### P HOS, [id number], CMP, CBC, [id number], FE PRO, MG #### [facility] [address] [place] [address] [place] #### VITB1 #### [facility] , Ferritin [Mass/volume] in Se rum or PlasmaOrdered By: Reena Breaux on 10-11-2022 Ferritin [Mass/Vol] 29.2 ng/mL 11-306.8 [facility] Folate [Mass/volume] in Seru m or PlasmaOrdered By: Reena Breaux on 10-11-2022 Folate [Mass/Vol] 22.2 ng/mL >5.9 [facility] Comment on above: Folate reference ran ge: >5.9 ng/mlThe WHO technical consultation on folate and vitamin [id number] has determined that folate concentrations lessthan 4 ng/ml are considered deficient. Globulin Calc (S) [Mass/Vol] Ordered By: Reena Breaux on 10-11-2022 Globulin (S) [Mass/Vol] 2.8 g/dL [facility] Hematocrit Auto (Bld) [Volum e fraction]Ordered By: Reena Breaux on 10-11-2022 Hematocrit (Bld) [Volume fraction] 39.1 % 34.0-46.4 [facility] Hemoglobin [Mass/volume] in BloodOrdered By: Reena Breaux on 10-11-2022 Hemoglobin (Bld) [Mass/Vol] 13.1 g/dL 11.8-15.4 [facility] Iron [Mass/volume] in Serum or PlasmaOrdered By: Reena Breaux on 10-11-2022 Iron [Mass/Vol] 69 ug/dL 40-150 [facility] Iron binding capacity [Mass/ volume] in Serum or PlasmaOrdered By: Reena Breaux on 10-11-2022 Iron binding capacity [Mass/Vol] 288 ug/dL 255-450 [facility] Iron saturation [Mass Fracti on] in Serum or PlasmaOrdered By: Reena Breaux on 10-11-2022 Iron saturation [Mass fraction] 24.0 % 20-50 [facility] Laboratory - Chemistry and C hemistry - challengeOrdered By: Reena Breaux on 10-11-2022 Cobalamin (Vitamin B12) [Mass/Vol] 1437 pg/mL 180-914 [facility] Magnesium [Mass/Vol] 2.1 mg/dL 1.6-2.6 [facility] Leukocytes [#/volume] correc jakob for nucleated erythrocytes in Blood by Automated counOrdered By: Reena Breaux on 10-11-2022 WBC corrected for nucl RBC Auto (Bld) [#/Vol] 6.8 10*3/uL 3.8-11.6 [facility] Lymphocytes Auto (Bld) [#/Vo l]Ordered By: Reena Breaux on 10-11-2022 Lymphocytes (Bld) [#/Vol] 2.7 10*3/uL 1.00-4.8 [facility] Lymphocytes/100 WBC Auto (Bl d)Ordered By: Reena Breaux on 10-11-2022 Lymphocytes/100 WBC (Bld) 39.8 % . [facility] MCH Auto (RBC) [Entitic mass ]Ordered By: Reena Breaux on 10-11-2022 MCH (RBC) [Entitic mass] 31.9 pg 24.7-34.3 [facility] MCHC Auto (RBC) [Mass/Vol]Or dered By: Reena Breaux on 10-11-2022 MCHC (RBC) [Mass/Vol] 33.5 g/dL 32.0-35.0 [facility] MCV Auto (RBC) [Entitic vol] Ordered By: Reena Breaux on 10-11-2022 MCV (RBC) [Entitic vol] 95.3 fL 80-100 [facility] Magnesiumon 10-11-2022 Magnesium [Mass/Vol] 2.1 mg/dL Normal 1.6-2.6 [facility] Comment on above: Performed By: #### P HOS, [id number], CMP, CBC, [id number], FE PRO, MG #### [facility] [address] [place] [address] [place] #### VITB1 #### [facility] , Monocytes Auto (Bld) [#/Vol] Ordered By: Reena Breaux on 10-11-2022 Monocytes (Bld) [#/Vol] 0.3 10*3/uL 0.0-0.8 [facility] Monocytes/100 WBC Auto (Bld) Ordered By: Reena Breaux on 10-11-2022 Monocytes/100 WBC (Bld) 5.1 % . [facility] Neutrophils Auto (Bld) [#/Vo l]Ordered By: Reena Breaux on 10-11-2022 Neutrophils (Bld) [#/Vol] 3.6 10*3/uL 1.8-7.7 [facility] Neutrophils/100 WBC Auto (Bl d)Ordered By: Reena Breaux on 10-11-2022 Neutrophils/100 WBC (Bld) 52.7 % . [facility] No Panel InformationOrdered By: Reena Breaux on 10-11-2022 25-Hydroxy Vitamin D Total 33.9 ng/mL 30-100 [facility] Comment on above: VITAMIN D STATUS 25( OH)VITAMIN D RANGE (ng/mL) Deficient <20 Insufficient 20 to <30Sufficient 30 to 100Reference: Kofi MF,Mauricio NC, Mayank CUELLAR, et al. Evaluation,treatment, and prevention of vitamin D deficiency; an Endocrine Society clinical practice guideline. JCEM. 2010; 96(7):1911-30. Estimated GFR () > 60 mL/Min [facility] Comment on above: GFR estimated refere nce range: According to KDOQI guidelines, <60 ml/min/1.73m2 is sufficient to diagnose a patient with chronic kidney disease. Pharmacy Creatinine Clearance (Chem N/A [facility] Nucleated erythrocytes [Pres ence] in Blood by Automated countOrdered By: Reena Breaux on 10-11-2022 Nucleated RBC Auto Ql (Bld) 0.0 /100{WBC} 0-0.5 [facility] Phosphate [Mass/volume] in S negro or PlasmaOrdered By: Reena Breaux on 10-11-2022 Phosphate [Mass/Vol] 3.9 mg/dL 2.5-4.6 [facility] Phosphoruson 10-11-2022 Phosphate [Mass/Vol] 3.9 mg/dL Normal 2.5-4.6 [facility] Comment on above: Performed By: #### P HOS, [id number], CMP, CBC, [id number], FE PRO, MG #### [facility] [id number] [facility] #### VITB1 #### [facility] , Platelet mean volume Auto (B ld) [Entitic vol]Ordered By: Reena Breaux on 10-11-2022 Platelet mean volume (Bld) [Entitic vol] 9.8 fL 6.3-10.7 [facility] Platelets Auto (Bld) [#/Vol] Ordered By: Reena Breaux on 10-11-2022 Platelets (Bld) [#/Vol] 226 10*3/uL 150-450 [facility] Protein [Mass/volume] in Ser um or PlasmaOrdered By: Reena Breaux on 10-11-2022 Protein [Mass/Vol] 6.8 g/dL 6.1-7.9 [facility] RBC Auto (Bld) [#/Vol]Ordere d By: Reena Breaux on 10-11-2022 RBC (Bld) [#/Vol] 4.11 10*6/uL 3.60-5.00 [facility] Serum or plasma alanine doss otransferase measurement without P-5'-P (enzymatic activiOrdered By: Reena Breaux on 10-11-2022 ALT No additional P-5'-P [Catalytic activity/Vol] 12 U/L 10-60 [facility] Serum or plasma albumin/glob ulin mass ratioOrdered By: Reena Breaux on 10-11-2022 Albumin/Globulin [Mass ratio] 1.4 {ratio} [facility] Serum or plasma alkaline denis sphatase measurement (enzymatic activity/volume)Ordered By: Reena Breaux on 10-11-2022 ALP [Catalytic activity/Vol] 36 U/L 32-92 [facility] Serum or plasma anion gap de terminationOrdered By: Reena Breaux on 10-11-2022 Anion gap [Moles/Vol] 11.6 mmol/L 6.0-15.0 [facility] Serum or plasma aspartate am inotransferase measurement (enzymatic activity/volume)Ordered By: Reena Breaux on 10-11-2022 AST [Catalytic activity/Vol] 11 U/L 10-42 [facility] Serum or plasma calcium gloria urement (mass/volume)Ordered By: Reena Breaux on 10-11-2022 Calcium [Mass/Vol] 9.3 mg/dL 8.2-10.2 [facility] Serum or plasma chloride gina surement (moles/volume)Ordered By: Reena Breaux on 10-11-2022 Chloride [Moles/Vol] 103 mmol/L 95-114 [facility] Serum or plasma glucose gloria urement (mass/volume)Ordered By: Reena Breaux on 10-11-2022 Glucose [Mass/Vol] 85 mg/dL 70-100 [facility] Comment on above: ADA recommended refe rence rangeRandom Glucose Reference Range is dependent on time and content of last meal. Glucose of more than 200 mg/dL in a nonstressed, ambulatory subject supports the diagnosis of Diabetes Mellitus. Serum or plasma potassium me asurement (moles/volume)Ordered By: Reena Breaux on 10-11-2022 Potassium [Moles/Vol] 4.0 mmol/L 3.5-5.1 [facility] Serum or plasma sodium measu rement (moles/volume)Ordered By: Reena Breaux on 10-11-2022 Sodium [Moles/Vol] 137 mmol/L 136-146 [facility] Serum or plasma total biliru bin measurement (mass/volume)Ordered By: Reena Breaux on 10-11-2022 Bilirubin [Mass/Vol] 0.3 mg/dL 0.3-1.2 [facility] Serum or plasma total carbon dioxide measurement (moles/volume)Ordered By: Reena Breaux on 10-11-2022 CO2 [Moles/Vol] 26.4 mmol/L 22.0-30.0 [facility] Serum or plasma urea nitroge n measurement (mass/volume)Ordered By: Reena Breaux on 10-11-2022 Urea nitrogen [Mass/Vol] 11 mg/dL 9-23 [facility] Vit. B12/Folate Profileon Cobalamin (Vitamin B12) [Mass/Vol] 1437 pg/mL High 180-914 [facility] Comment on above: Performed By: #### P HOS, [id number], CMP, CBC, [id number], FE PRO, MG #### [facility] [address] [place] [address] [place] #### VITB1 #### [facility] , Folate 22.2 ng/mL Normal >5.9 [facility] Comment on above: Result Comment: Tara te reference range: >5.9 ng/ml The WHO technical consultation on folate and vitamin b12 deficiencies has determined that folate concentrations less than 4 ng/ml are considered deficient. Performed By: #### P HOS, [id number], CMP, CBC, [id number], FE PRO, MG #### [facility] [address] [place] [address] [place] #### VITB1 #### [facility] , Vitamin B1 (Thiamine) Bloodo n 10-11-2022 Vitamin B1 (Thiamine) Blood 153.8 Normal 66.5-200.0 [facility] Comment on above: Result Comment: This test was developed and its performance characteristics determined by [employer]. It has not been cleared or approved by the Food and Drug Administration. Performed at: [address] [id number] Pharmacovigilance Specialist: Chary Soler MD, Phone: [phone] PERFORMED BY: [place] [address] PATHOLOGIST [employer]IDE [employer]ISHER AMANDA CALLE M.D. Performed By: #### P HOS, [id number], CMP, CBC, [id number], FE PRO, MG #### [facility] [address] [place] [address] #### VITB1 #### [facility] , Vitamin D 25 Hydroxy Totalon 10-11-2022 Vitamin D 25 Hydroxy Total 33.9 ng/mL Normal 30-100 [facility] Comment on above: Result Comment: JONAH MIN D STATUS 25(OH)VITAMIN D RANGE (ng/mL) Deficient <20 Insufficient 20 to <30 Sufficient 30 to 100 Reference: Kofi MF,Mauricio NC, Mayank CUELLAR et al. Evaluation,treatment, and prevention of vitamin D deficiency; an Endocrine Society clinical practice guideline. JCEM. 2010; 96(7):1911-30. PERFORMED BY: [address] [place] [address] PATHOLOGIST [employer] AMANDA CALLE M.D. Performed By: #### P HOS, [id number], CMP, CBC, [id number], FE PRO, MG #### [address] #### VITB1 #### [facility] , WBC Auto (Bld) [#/Vol]Ordere d By: Reena Breaux on 10-11-2022 WBC (Bld) [#/Vol] 6.8 10*3/uL 3.8-11.6 [facility] Complete Blood Count Auto Di ffon 06-10-2022 Basophils (Bld) [#/Vol] 0.0 10*3/uL Normal 0.0-0.2 [facility] Comment on above: Order Comment: NOT F ASTING. JKW Result Comment: PERF ORMED BY: [place] [address] PATHOLOGIST [employer] AMANDA CALLE M.D. Performed By: #### V ITB1 #### [facility] , #### [id number], CMP, MG, FE PRO, PHOS, [id number], CBC #### [address] Basophils/100 WBC (Bld) 0.7 % Normal . [facility] Comment on above: Order Comment: NOT F ASTING. JKW Performed By: #### V ITB1 #### [facility] , #### [id number], CMP, MG, FE PRO, PHOS, [id number], CBC #### [address] Eosinophils (Bld) [#/Vol] 0.2 10*3/uL Normal 0.0-0.45 [facility] Comment on above: Order Comment: NOT F ASTING. JKW Performed By: #### V ITB1 #### [facility] , #### [id number], CMP, MG, FE PRO, PHOS, [id number], CBC #### [address] Eosinophils/100 WBC (Bld) 2.6 % Normal . [facility] Comment on above: Order Comment: NOT F ASTING. JKW Performed By: #### V ITB1 #### [facility] , #### [id number], CMP, MG, FE PRO, PHOS, [id number], CBC #### [address] Erythrocyte distribution width (RBC) [Ratio] 13.9 % Normal 11.9-15.3 [facility] Comment on above: Order Comment: NOT F ASTING. JKW Performed By: #### V ITB1 #### [facility] , #### [id number], CMP, MG, FE PRO, PHOS, [id number], CBC #### [address] Hematocrit (Bld) [Volume fraction] 39.1 % Normal 34.0-46.4 [facility] Comment on above: Order Comment: NOT F ASTING. JKW Performed By: #### V ITB1 #### [facility] , #### [id number], CMP, MG, FE PRO, PHOS, [id number], CBC #### [facility] [address] [place] [address] Hemoglobin (Bld) [Mass/Vol] 12.8 g/dL Normal 11.8-15.4 [facility] Comment on above: Order Comment: NOT F ASTING. JKW Performed By: #### V ITB1 #### [facility] , #### [id number], CMP, MG, FE PRO, PHOS, [id number], CBC #### [address] Lymphocytes (Bld) [#/Vol] 1.5 10*3/uL Normal 1.00-4.8 [facility] Comment on above: Order Comment: NOT F ASTING. JKW Performed By: #### V ITB1 #### [facility] , #### [id number], CMP, MG, FE PRO, PHOS, [id number], CBC #### [address] Lymphocytes/100 WBC (Bld) 24.6 % Normal . [facility] Comment on above: Order Comment: NOT F ASTING. JKW Performed By: #### V ITB1 #### [facility] , #### [id number], CMP, MG, FE PRO, PHOS, [id number], CBC #### [address] MCH (RBC) [Entitic mass] 31.8 pg Normal 24.7-34.3 [facility] Comment on above: Order Comment: NOT F ASTING. JKW Performed By: #### V ITB1 #### [facility] , #### [id number], CMP, MG, FE PRO, PHOS, [id number], CBC #### [address] MCV (RBC) [Entitic vol] 97.2 fL Normal 80-100 [facility] Comment on above: Order Comment: NOT F ASTING. JKW Performed By: #### V ITB1 #### [facility] , #### [id number], CMP, MG, FE PRO, PHOS, [id number], CBC #### [address] Mean Corpuscular HGB Conc 32.7 g/dL Normal 32.0-35.0 [facility] Comment on above: Order Comment: NOT F ASTING. JKW Performed By: #### V ITB1 #### [facility] , #### [id number], CMP, MG, FE PRO, PHOS, [id number], CBC #### [facility] [address] Monocytes (Bld) [#/Vol] 0.4 10*3/uL Normal 0.0-0.8 [facility] Comment on above: Order Comment: NOT F ASTING. JKW Performed By: #### V ITB1 #### [facility] , #### [id number], CMP, MG, FE PRO, PHOS, [id number], CBC #### [facility] [address] [place] [address] [place] Monocytes/100 WBC (Bld) 7.3 % Normal . [facility] Comment on above: Order Comment: NOT F ASTING. JKW Performed By: #### V ITB1 #### [facility] , #### [id number], CMP, MG, FE PRO, PHOS, [id number], CBC #### [place] [address] [place] Neutrophils (Bld) [#/Vol] 3.8 10*3/uL Normal 1.8-7.7 [facility] Comment on above: Order Comment: NOT F ASTING. JKW Performed By: #### V ITB1 #### [facility] , #### [id number], CMP, MG, FE PRO, PHOS, [id number], CBC #### [facility] [address] [place] [address] [place] Neutrophils/100 WBC (Bld) 64.8 % Normal . [facility] Comment on above: Order Comment: NOT F ASTING. JKW Performed By: #### V ITB1 #### [facility] , #### [id number], CMP, MG, FE PRO, PHOS, [id number], CBC #### [address] Nucleated RBC/100 WBC (Bld) [Ratio] 0.1 % Normal 0-0.5 [facility] Comment on above: Order Comment: NOT F ASTING. JKW Performed By: #### V ITB1 #### [facility] , #### [id number], CMP, MG, FE PRO, PHOS, [id number], CBC #### [address] Platelet mean volume (Bld) [Entitic vol] 10.6 fL Normal 6.3-10.7 [facility] Comment on above: Order Comment: NOT F ASTING. JKW Performed By: #### V ITB1 #### [facility] , #### [id number], CMP, MG, FE PRO, PHOS, [id number], CBC #### [address] Platelets (Bld) [#/Vol] 237 10*3/uL Normal 150-450 [facility] Comment on above: Order Comment: NOT F ASTING. JKW Performed By: #### V ITB1 #### [facility] , #### [id number], CMP, MG, FE PRO, PHOS, [id number], CBC #### [address] RBC (Bld) [#/Vol] 4.02 10*6/uL Normal 3.60-5.00 [facility] Comment on above: Order Comment: NOT F ASTING. JKW Performed By: #### V ITB1 #### [facility] , #### [id number], CMP, MG, FE PRO, PHOS, [id number], CBC #### [address] [address] [place] WBC (Bld) [#/Vol] 5.9 10*3/uL Normal 4.5-11.0 [facility] Comment on above: Order Comment: NOT F ASTING. JKW Performed By: #### V ITB1 #### [facility] , #### [id number], CMP, MG, FE PRO, PHOS, [id number], CBC #### [facility] [address] [place] [address] Comprehensive Metabolic Pane nicole 06-10-2022 Albumin [Mass/Vol] 3.9 g/dL Normal 3.2-5.5 [facility] Comment on above: Order Comment: NOT F ASTING. JKW Performed By: #### V ITB1 #### [facility] , #### [id number], CMP, MG, FE PRO, PHOS, [id number], CBC #### [facility] [address] [place] [address] Albumin/Globulin [Mass ratio] 1.4 {ratio} Normal [facility] Comment on above: Order Comment: NOT F ASTING. JKW Performed By: #### V ITB1 #### [facility] , #### [id number], CMP, MG, FE PRO, PHOS, [id number], CBC #### [facility] [address] [place] [address] ALP [Catalytic activity/Vol] 43 U/L Normal 32-92 [facility] Comment on above: Order Comment: NOT F ASTING. JKW Performed By: #### V ITB1 #### [facility] , #### [id number], CMP, MG, FE PRO, PHOS, [id number], CBC #### [facility] [address] [place] [address] ALT [Catalytic activity/Vol] 12 U/L Normal 10-60 [facility] Comment on above: Order Comment: NOT F ASTING. JKW Performed By: #### V ITB1 #### [facility] , #### [id number], CMP, MG, FE PRO, PHOS, [id number], CBC #### [facility] [address] [place] [address] Anion gap [Moles/Vol] 11.0 mmol/L Normal 6.0-15.0 [facility] Comment on above: Order Comment: NOT F ASTING. JKW Performed By: #### V ITB1 #### [facility] , #### [id number], CMP, MG, FE PRO, PHOS, [id number], CBC #### [address] AST [Catalytic activity/Vol] 10 U/L Normal 10-42 [facility] Comment on above: Order Comment: NOT F ASTING. JKW Performed By: #### V ITB1 #### [facility] , #### [id number], CMP, MG, FE PRO, PHOS, [id number], CBC #### [address] Bilirubin [Mass/Vol] 0.7 mg/dL Normal 0.3-1.2 [facility] Comment on above: Order Comment: NOT F ASTING. JKW Performed By: #### V ITB1 #### [facility] , #### [id number], CMP, MG, FE PRO, PHOS, [id number], CBC #### [address] Calcium [Mass/Vol] 9.8 mg/dL Normal 8.2-10.2 [facility] Comment on above: Order Comment: NOT F ASTING. JKW Performed By: #### V ITB1 #### [facility] , #### [id number], CMP, MG, FE PRO, PHOS, [id number], CBC #### [facility] [address] Chloride [Moles/Vol] 104 mmol/L Normal 95-114 [facility] Comment on above: Order Comment: NOT F ASTING. JKW Performed By: #### V ITB1 #### [facility] , #### [id number], CMP, MG, FE PRO, PHOS, [id number], CBC #### [address] CO2 [Moles/Vol] 25.3 mmol/L Normal 22.0-30.0 [facility] Comment on above: Order Comment: NOT F ASTING. JKW Performed By: #### V ITB1 #### [facility] , #### [id number], CMP, MG, FE PRO, PHOS, [id number], CBC #### [address] Creatinine [Mass/Vol] 0.56 mg/dL Normal 0.44-1.03 [facility] Comment on above: Order Comment: NOT F ASTING. JKW Performed By: #### V ITB1 #### [facility] , #### [id number], CMP, MG, FE PRO, PHOS, [id number], CBC #### [address] Estimated GFR ( Christiano > 60 [facility] Comment on above: Order Comment: NOT F ASTING. JKW Result Comment: GFR estimated reference range: According to KDOQI guidelines, <60 ml/min/1.73m2 is sufficient to diagnose a patient with chronic kidney disease. Performed By: #### V ITB1 #### [facility] , #### [id number], CMP, MG, FE PRO, PHOS, [id number], CBC #### [address] Estimated GFR (Non- Am > 60 [facility] Comment on above: Order Comment: NOT F ASTING. JKW Performed By: #### V ITB1 #### [facility] , #### [id number], CMP, MG, FE PRO, PHOS, [id number], CBC #### [address] Globulin (S) [Mass/Vol] 2.8 g/dL Normal [facility] Comment on above: Order Comment: NOT F ASTING. JKW Performed By: #### V ITB1 #### [facility] , #### [id number], CMP, MG, FE PRO, PHOS, [id number], CBC #### [address] Glucose [Mass/Vol] 95 mg/dL Normal 70-100 [facility] Comment on above: Order Comment: NOT F ASTING. JKW Result Comment: [facility] Glucose Reference Range is dependent on time and content of last meal. Glucose of more than 200 mg/dL in a nonstressed, ambulatory subject supports the diagnosis of Diabetes Mellitus. ADA recommended reference range Performed By: #### V ITB1 #### [facility] , #### [id number], CMP, MG, FE PRO, PHOS, [id number], CBC #### [address] Potassium [Moles/Vol] 4.3 mmol/L Normal 3.5-5.1 [facility] Comment on above: Order Comment: NOT F ASTING. JKW Performed By: #### V ITB1 #### [facility] , #### [id number], CMP, MG, FE PRO, PHOS, [id number], CBC #### [facility] [address] [place] [address] Protein [Mass/Vol] 6.7 g/dL Normal 6.1-7.9 [facility] Comment on above: Order Comment: NOT F ASTING. JKW Performed By: #### V ITB1 #### [facility] , #### [id number], CMP, MG, FE PRO, PHOS, [id number], CBC #### [address] Sodium [Moles/Vol] 136 mmol/L Normal 136-146 [facility] Comment on above: Order Comment: NOT F ASTING. JKW Performed By: #### V ITB1 #### [facility] , #### [id number], CMP, MG, FE PRO, PHOS, [id number], CBC #### [address] Urea nitrogen [Mass/Vol] 7 mg/dL Low 9-23 [facility] Comment on above: Order Comment: NOT F ASTING. JKW Performed By: #### V ITB1 #### [facility] , #### [id number], CMP, MG, FE PRO, PHOS, [id number], CBC #### [address] FE PROon 10-2021 % Iron Saturation 19.0 % Low 20-50 [facility] Comment on above: Order Comment: NOT F ASTING. JKW Performed By: #### P HOS, [id number], CMP, CBC, [id number], FE PRO, MG #### [facility] [address] [place] [address] #### VITB1 #### [facility] , Ferritin [Mass/Vol] 46.7 ng/mL Normal 11-306.8 [facility] Comment on above: Order Comment: NOT F ASTING. JKW Performed By: #### P HOS, [id number], CMP, CBC, [id number], FE PRO, MG #### [address] #### VITB1 #### [facility] , Iron [Mass/Vol] 50 ug/dL Normal 40-150 [facility] Comment on above: Order Comment: NOT F ASTING. JKW Performed By: #### P HOS, [id number], CMP, CBC, [id number], FE PRO, MG #### [facility] [address] [place] [address] [place] #### VITB1 #### [facility] , Total Iron Binding Capacity 260 ug/dL Normal 255-450 [facility] Comment on above: Order Comment: NOT F ASTING. JKW Performed By: #### P HOS, [id number], CMP, CBC, [id number], FE PRO, MG #### [facility] [address] [place] [address] #### VITB1 #### [facility] , Transferrin [Mass/Vol] 186 mg/dL Normal 180-380 [facility] Comment on above: Order Comment: NOT F ASTING. JKW Performed By: #### P HOS, [id number], CMP, CBC, [id number], FE PRO, MG #### [facility] [address] [place] [address] [place] #### VITB1 #### [facility] , Magnesiumon 06-10-2022 Magnesium [Mass/Vol] 2.0 mg/dL Normal 1.6-2.6 [facility] Comment on above: Order Comment: NOT F ASTING. JKW Performed By: #### P HOS, [id number], CMP, CBC, [id number], FE PRO, MG #### [facility] [address] [place] [address] [place] #### VITB1 #### [facility] , Phosphoruson 06-10-2022 Phosphate [Mass/Vol] 4.1 mg/dL Normal 2.5-4.6 [facility] Comment on above: Order Comment: NOT F ASTING. JKW Performed By: #### P HOS, [id number], CMP, CBC, [id number], FE PRO, MG #### [facility] [address] [place] [address] [place] #### VITB1 #### [facility] , Vit. B12/Folate Profileon Cobalamin (Vitamin B12) [Mass/Vol] 575 pg/mL Normal 180-914 [facility] Comment on above: Order Comment: NOT F ASTING. JKW Performed By: #### P HOS, [id number], CMP, CBC, [id number], FE PRO, MG #### [facility] [address] [place] [address] #### VITB1 #### [facility] , Folate 14.3 ng/mL Normal >5.9 [facility] Comment on above: Order Comment: NOT F ASTING. JKW Result Comment: Tara te reference range: >5.9 ng/ml The WHO technical consultation on folate and vitamin b12 deficiencies has determined that folate concentrations less than 4 ng/ml are considered deficient. Performed By: #### P HOS, [id number], CMP, CBC, [id number], FE PRO, MG #### [facility] [address] [place] [address] #### VITB1 #### [facility] , Vitamin B1 (Thiamine) Bloodo n 06-10-2022 Vitamin B1 (Thiamine) Blood 143.0 Normal 66.5-200.0 [facility] Comment on above: Order Comment: NOT F ASTING. JKW Result Comment: This test was developed and its performance characteristics determined by [facility]. It has not been cleared or approved by the Food and Drug Administration. Performed at: [address] [id number] Pharmacovigilance Specialist: Chary Soler MD, Phone: [phone] PERFORMED BY: [place] [address] PATHOLOGIST INSIDE POLISHER AMANDA CALLE M.D. Performed By: #### P HOS, [id number], CMP, CBC, [id number], FE PRO, MG #### [facility] [address] [place] [address] [place] #### VITB1 #### [facility] , Vitamin D 25 Hydroxy Totalon 06-10-2022 Vitamin D 25 Hydroxy Total 27.8 ng/mL Low 30-100 [facility] Comment on above: Order Comment: NOT F ASTING. JKW Result Comment: JONAH MIN D STATUS 25(OH)VITAMIN D RANGE (ng/mL) Deficient <20 Insufficient 20 to <30 Sufficient 30 to 100 Reference: Kofi MF,Mauricio NC, Mayank CUELLAR, et al. Evaluation,treatment, and prevention of vitamin D deficiency; an Endocrine Society clinical practice guideline. JCEM. 2010; 96(7):1911-30. PERFORMED BY: [address] [place] [address] PATHOLOGIST INSIDE POLISHER AMANDA CALLE M.D. Performed By: #### P HOS, [id number], CMP, CBC, [id number], FE PRO, MG #### [facility] [address] [place] [address] #### VITB1 #### [facility] , HGB A1Con 01-15-2022 Average glucose Estimated from glycated hemoglobin (Bld) [Mass/Vol] 128 mg/dL Normal [facility] Comment on above: Order Comment: [facility] Type: BLOOD SPECIMEN Ordering Facility: [facility] Address: [address] [place] [address] Result Comment: eAG: (Estimated average glucose) is a calculated value from HgbA1c and is home office representative of the average blood glucose level in the last 2-3 month period. Performed By: #### H BA1C #### [facility] CLIA [id number] [address] [place], [place] [address] [place] [address] [place] HbA1c (Bld) [Mass fraction] 6.1 % High 4.3-5.6 [facility] Comment on above: Order Comment: Mary head Type: BLOOD SPECIMEN Ordering Facility: [facility] Address: [address] [place] [phone] Result Comment: Amer ican Diabetes Association guidelines indicate that patients with HgbA1c in the range 5.7-6.4% are at increased risk for development of diabetes, and intervention by lifestyle modification may be beneficial. HgbA1c greater or equal to 6.5% is considered diagnostic of diabetes. Performed By: #### H BA1C #### [facility] CLIA [id number] [address] [place] [address] [id number] [place] [id number] [place] [facility] POTAS[facility] 01-15-2022 Potassium [Moles/Vol] 4.9 mmol/L Normal 3.7-5.1 [facility] Comment on above: Order Comment: Speci men Type: BLOOD SPECIMEN Ordering Facility: [facility] Address: [address] [place] [phone] Performed By: #### K 1 #### [facility] CLIA [id number] [facility] [address] [place] Potassium [Moles/Vol] 4.9 mmol/L 3.7 - 5.1 mmol/L [facility] Vital Signs Date Time Vital Sign Value Performing Clinician Facility 04-24-2025 11:50-0400 Body mass index (BMI) [Ratio] 37.22 kg/m2 Roscoe Joe DO Work Phone: [facility] 04-24-2025 11:50-0400 Body weight 95.31 kg Roscoe Joe DO Work Phone: [facility] 04-24-2025 11:50-0400 Diastolic blood pressure 74 mm[Hg] Roscoe Joe DO Work Phone: [facility] 04-24-2025 11:50-0400 Systolic blood pressure 116 mm[Hg] Roscoe Joe DO Work Phone: [facility] 04-10-2025 15:14-0400 Body mass index (BMI) [Ratio] 37.22 kg/m2 Roscoe Joe DO Work Phone: [facility] 04-10-2025 15:14-0400 Body weight 95.31 kg Roscoe Joe DO Work Phone: [facility] 04-10-2025 15:14-0400 Diastolic blood pressure 70 mm[Hg] Roscoe Joe DO Work Phone: [facility] 04-10-2025 15:14-0400 Systolic blood pressure 120 mm[Hg] Roscoe Joe DO Work Phone: [facility] 03-27-2025 14:01-0400 Body mass index (BMI) [Ratio] 36.28 kg/m2 Roscoe Joe DO Work Phone: [facility] 03-27-2025 14:01-0400 Body weight 92.9 kg Roscoe Joe DO Work Phone: [facility] 03-27-2025 14:01-0400 Diastolic blood pressure 72 mm[Hg] Roscoe Joe DO Work Phone: [facility] 03-27-2025 14:01-0400 Systolic blood pressure 116 mm[Hg] Roscoe Joe DO Work Phone: [facility] 03-13-2025 15:41-0400 Body mass index (BMI) [Ratio] 36.46 kg/m2 Rosy Quiroz PA Work Phone: [facility] 03-13-2025 15:41-0400 Body weight 93.35 kg Rosy Oralia PA Work Phone: [facility] 03-13-2025 15:41-0400 Diastolic blood pressure 70 mm[Hg] Rosy Oralia PA Work Phone: [facility] 03-13-2025 15:41-0400 Systolic blood pressure 110 mm[Hg] Rosy Oralia PA Work Phone: [facility] 03-12-2025 13:35-0400 Body height 160 cm Daisha Lavoy PA-C Work Phone: [facility] 03-12-2025 13:35-0400 Body mass index (BMI) [Ratio] 36.38 kg/m2 Daisha Lavoy PA-C Work Phone: [facility] 03-12-2025 13:35-0400 Body weight 93.17 kg Daisha Lavoy PA-C Work Phone: [facility] 03-12-2025 13:35-0400 Diastolic blood pressure 57 mm[Hg] Daisha Lavoy PA-C Work Phone: [facility] 03-12-2025 13:35-0400 Heart rate 76 /min Daisha Lavoy PA-C Work Phone: [facility] 03-12-2025 13:35-0400 Systolic blood pressure 99 mm[Hg] Daisha Lavoy PA-C Work Phone: [facility] 02-27-2025 14:00-0400 Body mass index (BMI) [Ratio] 36.1 kg/m2 Roscoe Joe DO Work Phone: [facility] 02-27-2025 14:00-0400 Body weight 92.44 kg Roscoe Joe DO Work Phone: [facility] 02-27-2025 14:00-0400 Diastolic blood pressure 60 mm[Hg] Roscoe Joe DO Work Phone: [facility] 02-27-2025 14:00-0400 Systolic blood pressure 110 mm[Hg] Roscoe Joe DO Work Phone: [facility] 02-14-2025 15:17-0400 Body mass index (BMI) [Ratio] 36.21 kg/m2 Hien Giles RN Work Phone: [facility] 02-14-2025 15:17-0400 Body weight 92.72 kg Hien Giles RN Work Phone: [facility] 02-11-2025 11:36-0400 Body mass index (BMI) [Ratio] 35.87 kg/m2 Rosy KRUGER Work Phone: [facility] 02-11-2025 11:36-0400 Body weight 91.85 kg Rosy Oralia PA Work Phone: [facility] 02-11-2025 11:36-0400 Diastolic blood pressure 60 mm[Hg] Rosy Oralia PA Work Phone: [facility] 02-11-2025 11:36-0400 Systolic blood pressure 110 mm[Hg] Rosy Oralia PA Work Phone: [facility] 02-07-2025 10:43-0400 Body height 160 cm Scanning External [facility] 01-10-2025 10:33-0400 Body mass index (BMI) [Ratio] 34.92 kg/m2 Roscoe Joe DO Work Phone: [facility] 01-10-2025 10:33-0400 Body weight 89.41 kg Roscoe Joe DO Work Phone: [facility] 01-10-2025 10:33-0400 Diastolic blood pressure 68 mm[Hg] Roscoe Joe DO Work Phone: [facility] 01-10-2025 10:33-0400 Systolic blood pressure 110 mm[Hg] Roscoe Joe DO Work Phone: [facility] 12-10-2024 11:23-0400 Body mass index (BMI) [Ratio] 33.66 kg/m2 Rsoy Quiroz PA Work Phone: [facility] 12-10-2024 11:23-0400 Body weight 86.18 kg Rosy Quiroz PA Work Phone: [facility] 12-10-2024 11:23-0400 Diastolic blood pressure 70 mm[Hg] Rosy [facility] PA Work Phone: [facility] 12-10-2024 11:23-0400 Systolic blood pressure 106 mm[Hg] Rosy Quiroz PA Work Phone: [facility] 11-08-2024 11:04-0400 Body mass index (BMI) [Ratio] 32.24 kg/m2 Roscoe Joe DO Work Phone: [facility] 11-08-2024 11:04-0400 Body weight 82.56 kg Roscoe Joe DO Work Phone: [facility] 11-08-2024 11:04-0400 Diastolic blood pressure 60 mm[Hg] Roscoe Oje DO Work Phone: [facility] 11-08-2024 11:04-0400 Systolic blood pressure 100 mm[Hg] Rocsoe Joe DO Work Phone: [facility] 10-18-2024 13:54-0500 Body mass index (BMI) [Ratio] 31.38 kg/m2 Nom Nurse [facility] 10-18-2024 13:54-0500 Body weight 80.34 kg [facility] Nurse [facility] 08-02-2024 15:58-0500 Body temperature 96.8 [degF] Edu Alvarez TRACK ANNOUNCER Work Phone: [facility] 08-02-2024 15:58-0500 Diastolic blood pressure 66 mm[Hg] Edu Alvarez TRACK ANNOUNCER Work Phone: [facility] 08-02-2024 15:58-0500 Heart rate 88 /min Edu Alvarez TRACK ANNOUNCER Work Phone: [facility] 08-02-2024 15:58-0500 SaO2% (BldA) [Mass fraction] 98 % Edu Alvarez TRACK ANNOUNCER Work Phone: [facility] 08-02-2024 15:58-0500 Systolic blood pressure 106 mm[Hg] Edu Alvarez TRACK ANNOUNCER Work Phone: [facility] 07-25-2024 14:19-0500 Body height 160 cm Sina Garner DO Work Phone: [facility] 07-25-2024 14:19-0500 Body mass index (BMI) [Ratio] 30.82 kg/m2 Sina Garner DO Work Phone: [facility] 07-25-2024 14:19-0500 Body weight 78.93 kg Sinavincent Garner DO Work Phone: [facility] 07-25-2024 14:19-0500 Diastolic blood pressure 68 mm[Hg] Sina Garner DO Work Phone: [facility] 07-25-2024 14:19-0500 Heart rate 68 /min Sina Garner DO Work Phone: [facility] 07-25-2024 14:19-0500 Respiratory rate 12 /min Sina Garner DO Work Phone: [facility] 07-25-2024 14:19-0500 SaO2% (BldA) [Mass fraction] 99 % Sina Garner DO Work Phone: [facility] 07-25-2024 14:19-0500 Systolic blood pressure 128 mm[Hg] Sina Garner DO Work Phone: [facility] 06-29-2024 12:36-0500 Body mass index (BMI) [Ratio] 29.58 kg/m2 Berenice Evelyn ENVIRONMENTAL AID.BARTENDER MANAGER Work Phone: [facility] 06-29-2024 12:36-0500 Body weight 75.75 kg Berenice Evelyn ENVIRONMENTAL AID.BARTENDER MANAGER Work Phone: [facility] 06-29-2024 12:36-0500 Diastolic blood pressure 68 mm[Hg] Berenice Evelyn ENVIRONMENTAL AID.BARTENDER MANAGER Work Phone: [facility] 06-29-2024 12:36-0500 Heart rate 65 /min Berenice Evelyn ENVIRONMENTAL AID.BARTENDER MANAGER Work Phone: [facility] 06-29-2024 12:36-0500 Systolic blood pressure 101 mm[Hg] Berenice Evelyn ENVIRONMENTAL AID.BARTENDER MANAGER Work Phone: [facility] 09-23-2023 14:27-0500 Body height 160 cm Berenice Evelyn ENVIRONMENTAL AID.BARTENDER MANAGER Work Phone: [facility] 09-23-2023 14:27-0500 Body weight 76.2 kg Berenice Evelyn ENVIRONMENTAL AID.BARTENDER MANAGER Work Phone: [facility] 07-21-2023 16:05-0500 Body height 161.2 cm Berenice Evelyn ENVIRONMENTAL AID.BARTENDER MANAGER Work Phone: [facility] 07-21-2023 16:05-0500 Body weight 80.06 kg Berenice Webbtter ENVIRONMENTAL AID.BARTENDER MANAGER Work Phone: [facility] 07-21-2023 16:05-0500 Diastolic blood pressure 74 mm[Hg] Berenice Mirandaer ENVIRONMENTAL AID.BARTENDER MANAGER Work Phone: [facility] 07-21-2023 16:05-0500 Heart rate 60 /min Berenice Zepeda ENVIRONMENTAL AID.BARTENDER MANAGER Work Phone: [facility] 07-21-2023 16:05-0500 Systolic blood pressure 112 mm[Hg] Berenice Webbtter ENVIRONMENTAL AID.BARTENDER MANAGER Work Phone: [facility] 01-15-2022 11:50-0400 Body height 162.6 cm Dasha Lujan MD Work Phone: [facility] 01-15-2022 11:50-0400 Body temperature 98.01 [degF] Dasha Lujan MD Work Phone: [facility] 01-15-2022 11:50-0400 Body weight 104.33 kg Dasha Lujan MD Work Phone: [facility] 01-15-2022 11:50-0400 Diastolic blood pressure 86 mm[Hg] Dasha Lujan MD Work Phone: [facility] 01-15-2022 11:50-0400 Heart rate 65 /min Dasha Lujan MD Work Phone: [facility] 01-15-2022 11:50-0400 Respiratory rate 16 /min Dasha Lujan MD Work Phone: [facility] 01-15-2022 11:50-0400 Systolic blood pressure 124 mm[Hg] Dasha Lujan MD Work Phone: [facility] Encounters Encounter Date Encounter Type Care Provider Facility Start: 04-24-2025 End: 04-24-2025 Deloris Diaz DO Work Phone: [facility] Start: 04-24-2025 End: 04-24-2025 Bamboo flowsheet Roscoe Joe DO Work Phone: [facility] Start: 04-24-2025 End: 04-24-2025 flow sheet Roscoe Joe DO Work Phone: [facility] Comment on above: Third trimester preg piper ([facility]); 36 weeks gestation of ([facility]) Start: 04-24-2025 End: 04-24-2025 ambulatory ROSCOE JOE Not Available Start: 04-23-2025 End: 04-23-2025 Clinisync Result Encounter Rosy KRUGER Work Phone: [facility] Unsolicited Start: 04-23-2025 End: 04-23-2025 Clinisync Result Encounter Rosy KRUEGR Work Phone: [facility] Unsolicited Start: 04-23-2025 End: 04-23-2025 Telephone encounter Devika MALDONADO Work Phone: [facility] Start: 04-15-2025 End: 04-15-2025 Clinisync Result Encounter Rosy KRUGER Work Phone: [facility] External [facility] Unsolicited Start: 04-15-2025 End: 04-15-2025 Clinisync Result Encounter Rosy KRUGER Work Phone: [facility] Unsolicited Start: 04-15-2025 End: 04-15-2025 Telephone encounter Beulah Miller RN [facility] Start: 04-10-2025 End: 04-10-2025 flow sheet Roscoe Joe DO Work Phone: [facility] Comment on above: 34 weeks gestation o f ([facility]); Third trimester ([facility]); H/O gastric sleeve; Insulin controlled gestational diabetes mellitus (GDM) during , antepartum ([facility]) Start: 04-10-2025 End: 04-10-2025 ambulatory ROSCOE JOE Not Available Start: 04-10-2025 End: 04-10-2025 Bamboo flowsheet Roscoe Joe DO Work Phone: [facility] Start: 04-10-2025 End: 04-10-2025 Bamboo flowsheet Roscoe Joe DO Work Phone: [facility] Start: 04-09-2025 End: 04-09-2025 Telephone encounter Devika Niko MALDONADO Work Phone: [facility] Start: 04-08-2025 End: 04-08-2025 Clinisync Result Encounter [...] encounter Blanquita Toney RN [facility] Start: 04-01-2025 End: 04-01-2025 ambulatory DAISHA MOREL [facility] Start: 04-01-2025 End: 04-01-2025 Office outpatient visit 25 minutes Daisha Morel PA-C Work Phone: [facility] Comment on above: Gestational diabetes requiring insulin (Primary Dx) Start: 03-27-2025 End: 03-27-2025 Bamboo flowsheet Roscoe Joe DO Work Phone: [facility] Start: 03-27-2025 End: 03-27-2025 Bamboo flowsheet Roscoe Joe DO Work Phone: [facility] Start: 03-27-2025 End: 03-27-2025 flow sheet Roscoe Joe DO Work Phone: [facility] Comment on above: Third trimester preg piper ([facility]); H/O gastric sleeve; Gestational diabetes mellitus (GDM), antepartum, gestational diabetes method of control unspecified ([facility]); 32 weeks gestation of ([facility]) Start: 03-27-2025 End: 03-27-2025 ambulatory ROSCOE JOE Not Available Start: 03-26-2025 End: 03-26-2025 Telephone encounter Devika MALDONADO Work Phone: [facility] Start: 03-19-2025 End: 03-19-2025 Telephone encounter Fatimah MALDONADO [facility] Start: 03-13-2025 End: 03-13-2025 flow sheet Rosy KRUGER Work Phone: [facility] Comment on above: 30 weeks gestation o f ([facility]); Third trimester ([facility]); H/O gastric sleeve; Gestational diabetes mellitus (GDM), antepartum, gestational diabetes method of control unspecified ([facility]) Start: 03-13-2025 End: 03-13-2025 ambulatory ROSY QUIROZ Not Available Start: 03-13-2025 End: 03-13-2025 Bamboo flowsheet Rosy KRUGER Work Phone: [facility] Start: 03-13-2025 End: 03-13-2025 Bamboo flowsheet Rosy KRUGER Work Phone: [facility] Start: 03-12-2025 End: 03-12-20[facility] Start: 03-12-2025 End: 03-12-2025 Office outpatient visit 25 minutes Daisha Morel PA-C Work Phone: [facility] Comment on above: Gestational diabetes mellitus (GDM) in second trimester, gestational diabetes method of control unspecified (Primary Dx); Gestational diabetes requiring insulin Start: 03-05-2025 End: 03-05-2025 Telephone encounter Devika Pope JOEL Work Phone: [facility] Start: 02-27-2025 End: 02-27-2025 flow sheet Roscoe Diaz DO Work Phone: [facility] Comment on above: 28 weeks gestation o f ([facility]); Third trimester ([facility]); H/O gastric sleeve; Gestational diabetes mellitus (GDM), antepartum, gestational diabetes method of control unspecified ([facility]) Start: 02-27-2025 End: 02-27-2025 ambulatory ROSCOE DIAZ Not Available Start: 02-26-2025 End: 02-26-2025 Telephone encounter Devika Gaitanjackson MALDONADO Work Phone: [facility] Start: 02-14-2025 End: 02-14-2025 ambulatory Hien Giles RN Work Phone: [facility] Comment on above: Gestational diabetes mellitus (GDM) in second trimester, gestational diabetes method of control unspecified (Primary Dx) Start: 02-11-2025 End: 02-11-2025 flow sheet Rosy KRUGER Work Phone: [facility] Comment on above: Second trimester pre gnancy ([facility]); 26 weeks gestation of ([facility]); H/O gastric sleeve Start: 02-11-2025 End: 02-11-2025 ambulatory ROSY QUIROZ Not Available Start: 02-07-2025 End: 02-07-2025 Chart abstracting Scanning Provider External [facility] Start: 02-01-2025 End: 02-01-2025 Clinisync Result Encounter Roscoe Joe DO Work Phone: [facility] Unsolicited Start: 02-01-2025 End: 02-01-2025 Clinisync Result Encounter Roscoe Joe DO Work Phone: [facility] Unsolicited Start: 01-30-2025 End: 01-30-2025 ambulatory ROSCOE JEO Not Available Start: 01-10-2025 End: 01-10-2025 flow [...] Start: 11-08-2024 End: 11-08-2024 Bamboo flowsheet Roscoe Jeo DO Work Phone: [facility] Start: [...] Office outpatient visit 25 minutes Edu Alvarez TRACK ANNOUNCER Work Phone: [facility] Comment on above: Acute cough (Primary [...] Start: 06-29-2024 End: 06-29-2024 ambulatory DASHA LUJAN Facility:[facility] Start: 06-29-2024 End: 06-29-2024 Patient encounter procedure Berenice Zepeda APRN.BARTENDER MANAGER Work Phone: Internal Medicine Comment on above: Encounter for weight management (Primary Dx); Overweight Start: 03-06-2024 ambulatory Berenice wheatley ENVIRONMENTAL AID.BARTENDER MANAGER Work Phone: [facility] Medicine Start: 03-06-2024 Patient encounter procedure Berenice Zepeda APRN.BARTENDER MANAGER Work Phone: [facility] Medicine Comment on above: Prescription Start: 09-23-2023 End: 09-23-2023 ambulatory Berenice Zepeda APRN.BARTENDER MANAGER Work Phone: Internal Medicine Comment on above: Encounter for weight management; Overweight (BMI 25.0-29.9) Start: 09-23-2023 End: 09-23-2023 Telemedicine consultation with patient Berenice Webbradha WEST.BARTENDER MANAGER Work Phone: [facility] Start: 08-23-2023 End: 08-23-2023 ambulatory BERENICE ZEPEDA Facility:[facility] Start: 07-26-2023 End: 07-26-2023 ambulatory DASHA LUJAN Facility:[facility] Start: 07-21-2023 End: 07-21-2023 ambulatory BERENICE ZEPEDA Facility:[facility] Start: 07-21-2023 End: 07-21-2023 Patient encounter procedure Berenice Mirandaer ENVIRONMENTAL AID.BARTENDER MANAGER Work Phone: Internal Medicine Comment on above: Routine adult health maintenance (Primary Dx); IFG (impaired fasting glucose); Encounter for weight management; Class 1 obesity due to excess calories with body mass index (BMI) of 30.0 to 30.9 in adult, unspecified whether serious comorbidity present; Encounter for immunization; Immunity status testing Start: 07-21-2023 End: 07-21-2023 Patient encounter status Berenice Zepeda ENVIRONMENTAL AID.BARTENDER MANAGER Work Phone: [facility] Work Phone: Start: 06-29-2023 ambulatory Dasha Lujan MD Work Phone: Internal Medicine Comment on above: Prescription Start: 10-11-2022 End: 10-11-2022 ambulatory Reena Breaux Facility:[facility] Start: 10-11-2022 End: 10-11-2022 ambulatory MD Dasha Lujan Work Phone: [facility] Work Phone: Start: 10-11-2022 End: 10-11-2022 Patient encounter procedure MD Dasha Lujan Work Phone: [facility] Start: 06-10-2022 End: 06-10-2022 ambulatory Reean Breaux Facility:[facility] Start: 01-15-2022 End: 01-15-2022 Office outpatient [...] stick/tabl et rgnt non-auto w/o micrscp Roscoe Joeiván WINKLER Work Phone: Start: 01-15-2022 Adult depression scr eening assessment Dasha Lujan MD Work Phone: Plan of Treatment Date Care Activity Detail Author Start: 07-21-2033 DTaP,Tdap and Td Vaccines (8 - Td or Tdap) DTaP,Tdap and Td Vaccines (8 - Td or Tdap) [facility] Start: 07-21-2033 Urine microalbumin profile [facility] Start: 12-11-2027 Screening for malign ant neoplasm of cervix [facility] Start: 03-12-2026 Adult BMI Screening Adult BMI Screen ing [facility] Start: 03-12-2026 Tobacco Screening Tobacco Screening [facility] Start: 02-14-2026 Adult BMI Screening Adult BMI Screen ing [facility] Start: 05-01-2025 End: 05-01-2025 Telemedicine consultation with patient 05/01/2025 9:30 AM EDT Telemedicine [facility] [address] [place] [id number] Marilia Dillon, ENVIRONMENTAL AID-BARTENDER MANAGER [address] [place] [address] M[facility]- Medicine at [facility] Start: 05-01-2025 End: 05-01-2025 Patient encounter procedure 05/01/2025 9:20 AM EDT Routine [facility] CAAL [address] [place] [phone] Rosy Quiroz PA [address] [place] [address] [facility] Start: 04-24-2025 End: 04-24-2026 CULTURE, GROUP B STREP WITH SUSCEPTIBLITY CULTURE, GROUP B STREP WITH SUSCEPTIBLITY Lab Routine Third trimester ([facility]) Expected: 04/24/2025, Expires: 04/24/2026 [facility] Work Phone: Comment on above: Expected: 04/24/2025 , Expires: 04/24/2026 Start: 04-24-2025 End: 04-24-2025 Patient encounter procedure [facility] Comment on above: Arrived Start: 04-22-2025 Influenza vaccination [facility] Start: 04-10-2025 End: 04-10-2025 Patient encounter procedure [facility] Comment on above: Arrived Start: 04-01-2025 End: 04-01-2025 Telemedicine consultation with patient 04/01/2025 10:00 AM EDT Telemedicine Maternal- Medicine at [facility] [address] [facility] [place] [phone] Daisha Morel PA-C [address] [address] [facility]- [facility] at [facility] Start: 03-27-2025 End: 03-27-2025 Patient encounter procedure [facility] Comment on above: Arrived Start: 03-13-2025 End: 03-13-2025 Patient encounter procedure [facility] Comment on above: Arrived Start: 02-27-2025 End: 02-27-2025 Professional / ancillary services management 02/27/2025 1:00 PM EDT Ancillary Procedure [facility] [address] [place], [place] [address] [address] [facility] Start: 02-14-2025 End: 02-14-2025 ambulatory 02/14/2025 1:30 PM EDT Support Visit Maternal- Medicine at [facility] [address] [place] [phone] Hien Giles, RN [address] [address] Devika Pope, JOEL [address] [place] [address] M[facility]- Medicine at [facility] Start: 02-11-2025 End: 06-13-2025 US for US OB follow up transabdominal approach Imaging Routine H/O gastric sleeve Expected: 02/11/2025, Expires: 06/13/2025 [facility] Work Phone: Comment on above: Expected: 02/11/2025 , Expires: 06/13/2025 Start: 02-11-2025 End: 02-11-2025 Patient encounter procedure 02/11/2025 11:30 AM EDT Routine [facility] [address] [place] [address] Rosy Quiroz PA [address] [place] [address] [facility] Start: 01-30-2025 End: 01-30-2025 Professional / ancillary services management 01/30/2025 1:00 PM EDT Ancillary Procedure [facility] [address] [facility] [facility] [place] [address] [facility] Start: 01-15-2025 Pap Testing Pap Testing [facility] Start: 01-15-2025 Screening for malign ant neoplasm of cervix Pap Testing [facility] Start: 01-10-2025 End: 01-10-2026 CBC panel - Blood by Automated count CBC Lab Routine Diabetes mellitus screening Expected: 01/10/2025 (Approximate), Expires: 01/10/2026 [facility] Work Phone: Comment on above: Expected: 01/10/2025 (Approximate), Expires: 01/10/2026 Start: 01-10-2025 End: 01-10-2026 Measurement of glucose 1 hour after glucose challenge for glucose tolerance test Glucose tolerance, 1 hour Lab Routine Diabetes mellitus screening Expected: 01/10/2025 (Approximate), Expires: 01/10/2026 [facility] Comment on above: Expected: 01/10/2025 (Approximate), Expires: 01/10/2026 Start: 01-10-2025 End: 01-10-2025 Patient encounter procedure 01/10/2025 10:10 AM EDT Routine [facility] [address] [facility] [facility] [place] [phone] Roscoe Diaz, DO [address] [place] [address] [facility] Start: 12-10-2024 End: 01-09-2025 [...] AM EDT Routine [facility] [address] [facility] [facility] [place] [phone] Rosy Quiroz PA [address] [place] [address] Arrived [facility] Comment on above: Arrived Start: 11-08-2024 End: 11-08-2024 Patient encounter procedure 11/08/2024 10:50 AM EDT Routine [facility] [address] [place] [phone] Roscoe Diaz, DO [address] [place] [address] [facility] Start: 10-18-2024 End: 10-18-2025 ABO/Rh ABO/Rh Lab Routine Missed menses , unspecified gestational age Expected: 10/18/2024 (Approximate), Expires: 10/18/2025 [facility] Comment on above: Expected: 10/18/2024 (Approximate), Expires: 10/18/2025 Start: 10-18-2024 End: 10-18-2025 Blood type and Indirect antibody screen panel - Blood Type and screen Lab Routine Missed menses , unspecified gestational age Expected: 10/18/2024 (Approximate), Expires: 10/18/2025 [facility] Comment on above: Expected: 10/18/2024 (Approximate), Expires: 10/18/2025 Start: 10-18-2024 End: 10-18-2025 Drugs of abuse panel - Urine by Screen method Rapid drug screen, urine Lab Routine , unspecified gestational age Encounter for supervision of normal first in first trimester Expected: 10/18/2024 (Approximate), Expires: 10/18/2025 [facility] Comment on above: Expected: 10/18/2024 (Approximate), Expires: 10/18/2025 Start: 10-18-2024 End: 10-18-2025 US Pelvis transvaginal [facility] Work Phone: Comment on above: Expected: 10/18/2024 , Expires: 10/18/2025 Start: 07-21-2024 Covid-19 Vaccine (#1) Covid-19 Vacci ne (#1) [facility] Comment on above: Postponed from 04/08 (Declined at this time) Start: 07-21-2024 Covid-19 Vaccine ( season) Covid-19 Vaccine ( season) [facility] Comment on above: Postponed from 04/22 (Declined at this time) Start: 04-22-2024 Covid-19 Vaccine ( season) Covid-19 Vaccine ( season) [facility] Start: 04-22-2024 Influenza vaccination Influenza Vacc ine (#1) [facility] Start: 02-19-2024 Influenza vaccination Influenza Vacc ine (#1) [facility] Comment on above: Postponed from 04/22 (Declined at this time) Start: 08-22-2023 Behavioral Health Screening Behavioral Health Screening [facility] Start: 08-22-2023 Depression Assessment Depression Ass essment [facility] Start: 07-21-2023 End: 10-20-2023 CBC W Auto Differential panel - Blood CBC + DIFF Lab Routine Routine adult health maintenance Expected: 07/21/2023, Expires: 10/20/2023 [facility] Work Phone: Comment on above: Expected: 07/21/2023 , Expires: 10/20/2023 Start: 07-21-2023 End: 10-20-2023 Comprehensive metabolic 2000 panel - Serum or Plasma COMP METABOLIC PANEL Lab Routine Routine adult health maintenance Expected: 07/21/2023, Expires: 10/20/2023 [facility] Work Phone: Comment on above: Expected: 07/21/2023 , Expires: 10/20/2023 Start: 07-21-2023 End: 10-20-2023 Hemoglobin A1c in Blood HGB A1C Lab Routine IFG (impaired fasting glucose) Routine adult health maintenance Expected: 07/21/2023, Expires: 10/20/2023 [facility] Work Phone: Comment on above: Expected: 07/21/2023 , Expires: 10/20/2023 Start: 07-21-2023 End: 10-20-2023 Hepatitis B virus surface Ab [Presence] in Serum HEP B SURF AB Lab Routine Immunity status testing Expected: 07/21/2023, Expires: 10/20/2023 [facility] Work Phone: Comment on above: Expected: 07/21/2023 , Expires: 10/20/2023 Start: 07-21-2023 End: 10-20-2023 Lipid 1996 panel - Serum or Plasma LIPID PANEL BASIC Lab Routine Routine adult health maintenance Expected: 07/21/2023, Expires: 10/20/2023 [facility] Work Phone: Comment on above: Expected: 07/21/2023 , Expires: 10/20/2023 Start: 07-06-2023 Hepatitis B Vaccine (1 of 3 - 3-dose series) Hepatitis B Vaccine (1 of 3 - 3-dose series) [facility] Comment on above: Postponed from 10/09 (Declined at this time) Start: 04-22-2023 Influenza vaccination Influenza Vacc ine (#1) [facility] Start: 01-15-2023 Adult depression screening assessment DEPRESSION SCREENING [facility] Start: 01-15-2023 COVID-19 VACCINE (#1) COVID-19 VACCI NE (#1) [facility] Comment on above: Postponed from 10/09 (Declined at this time) Start: 01-15-2023 PAP TESTING PAP TESTING [facility] Start: 01-15-2023 Screening for malign ant neoplasm of cervix Cervical Cancer Screening [facility] Start: 2022 HPV Testing HPV Testing [facility] Start: 2022 Screening for malign ant neoplasm of cervix [facility] Start: 08-22-2022 Depression Assessment Depression Ass essment [facility] Start: 04-22-2022 Influenza vaccination INFLUENZA (Sea son Ended) [facility] Start: 01-15-2022 End: 03-17-2022 Hemoglobin A1c/Hemoglobin.total in Blood [facility] Work Phone: Comment on above: Expected: 01/15/2022 , Expires: 03/17/2022 Start: 2013 Screening for malign ant neoplasm of cervix Pap Smear [facility] Start: 2011 DTaP,Tdap and Td Vaccines (1 - Tdap) DTaP,Tdap and Td Vaccines (1 - Tdap) [facility] Start: 2011 Urine microalbumin profile [facility] Start: 2010 Adult BMI Follow Up Plan Adult BMI Follow Up Plan [facility] Start: 2010 Adult BMI Screening Adult BMI Screen ing [facility] Start: 2010 Anxiety Screening Anxiety Screening [facility] Start: 2010 Depression Screening Depression Scre ening [facility] Start: 2004 Depression Screening Depression Scre [facility] Start: 2004 Tobacco Screening Tobacco Screening [facility] Start: 04-08-1993 Covid-19 Vaccine (#1) Covid-19 Vacci ne (#1) [facility] Start: 1992 Hepatitis B Vaccine (1 of 3 - 3-dose series) Hepatitis B Vaccine (1 of 3 - 3-dose series) [facility] Bacteria identified in Urine by Culture Urine culture Microbiology Routine Missed menses Ordered: 10/18/2024 [facility] Comment on above: Ordered: 10/18/2024 CBC W Auto Different ial panel - Blood CBC and differential Lab Routine Missed menses , unspecified gestational age Ordered: 10/18/2024 [facility] Comment on above: Ordered: 10/18/2024 CHLAMYDIA TRACHOMATI S (GENITO/STI) CHLAMYDIA TRACHOMATIS (GENITO/STI) Lab Routine Exposure to STD Ordered: 12/10/2024 [facility] Comment on above: Ordered: 12/10/2024 Cytology Cervical or vaginal smear or scraping study Pap Smear Pathology and Cytology Routine Well woman exam with routine gynecological exam Ordered: 12/10/2024 [facility] Comment on above: Ordered: 12/10/2024 Hemoglobin A1c/Hemoglobin.total in Blood Hemoglobin A1c Lab Routine Missed menses , unspecified gestational age Ordered: 10/18/2024 [facility] Comment on above: Ordered: 10/18/2024 Hepatitis B virus surface Ag [Presence] in Serum or Plasma by Immunoassay Hepatitis B surface antigen Lab Routine Missed menses , unspecified gestational age Ordered: 10/18/2024 [facility] Comment on above: Ordered: 10/18/2024 Hepatitis C virus Ab [Presence] in Serum or Plasma by Immunoassay Hepatitis C antibody Lab Routine Missed menses , unspecified gestational age Ordered: 10/18/2024 [facility] Comment on above: Ordered: 10/18/2024 HIV-1/HIV-2 antigen/antibody combination immunoassay HIV-1 and HIV-2 antibodies Lab Routine Missed menses , unspecified gestational age Ordered: 10/18/2024 [facility] Comment on above: Ordered: 10/18/2024 Human papilloma viru s DNA [Presence] in Unspecified specimen by Probe with amplification HPV DNA probe, amplified Microbiology Routine Well woman exam with routine gynecological exam Ordered: 12/10/2024 [facility] Comment on above: Ordered: 12/10/2024 Neisseria gonorrhoea e DNA [Presence] in Unspecified specimen by ALPA with probe detection Neisseria gonorrhea DNA probe, direct Lab Routine Exposure to STD Ordered: 12/10/2024 [facility] Comment on above: Ordered: 12/10/2024 Reagin Ab [Presence] in Serum by RPR RPR Lab Routine Missed menses , unspecified gestational age Ordered: 10/18/2024 [facility] Comment on above: Ordered: 10/18/2024 Rubella antibody, IgG Rubella an tibody, IgG Lab Routine Missed menses , unspecified gestational age Ordered: 10/18/2024 [facility] Comment on above: Ordered: 10/18/2024 SURESWAB(R) ADVANCED VAGINITIS PLUS, TMA SURESWAB(R) ADVANCED VAGINITIS PLUS, TMA Pathology and Cytology Routine Exposure to STD Ordered: 12/10/2024 [facility] Work Phone: Comment on above: Ordered: 12/10/2024 Thiamine [Moles/volu me] in Blood [facility] [place] Immunizations Immunization Date Immunization Notes Care Provider Salvatore [facility] 07-21-2023 tetanus toxoid, redu sloane diphtheria toxoid, and acellular pertussis vaccine, adsorbed Berenice Evelyn ENVIRONMENTAL AID.BARTENDER MANAGER Work Phone: [facility] 05-03-2011 meningococcal polysaccharide (groups A, C, Y and W-135) diphtheria toxoid conjugate vaccine (MCV4P) Berenice Zepeda ENVIRONMENTAL AID.BARTENDER MANAGER Work Phone: [facility] 05-03-2011 tetanus toxoid, redu sloane diphtheria toxoid, and acellular pertussis vaccine, adsorbed Berenice Evelyn ENVIRONMENTAL AID.BARTENDER MANAGER Work Phone: [facility] 03-29-2011 human papilloma viru s vaccine, quadrivalent Berenice Evelyn ENVIRONMENTAL AID.BARTENDER MANAGER Work Phone: [facility] 11-26-2010 human papilloma viru s vaccine, quadrivalent Berenice Evelyn ENVIRONMENTAL AID.BARTENDER MANAGER Work Phone: [facility] 09-28-2010 human papilloma viru s vaccine, quadrivalent Berenice Evelyn ENVIRONMENTAL AID.BARTENDER MANAGER Work Phone: [facility] 04-30-1998 diphtheria, tetanus toxoids and acellular pertussis vaccine, unspecified formulation Berenice Evelyn ENVIRONMENTAL AID.BARTENDER MANAGER Work Phone: [facility] 04-30-1998 measles, mumps and rubella virus vaccine Berenice Evelyn ENVIRONMENTAL AID.BARTENDER MANAGER Work Phone: [facility] 04-30-1998 trivalent poliovirus vaccine, live, oral Berenice Evelyn ENVIRONMENTAL AID.BARTENDER MANAGER Work Phone: [facility] 06-07-1994 diphtheria, tetanus toxoids and acellular pertussis vaccine, unspecified formulation Berenice Evelyn ENVIRONMENTAL AID.BARTENDER MANAGER Work Phone: [facility] 06-07-1994 hepatitis B vaccine, pediatric or pediatric/adolescent dosage Berenice Evelyn ENVIRONMENTAL AID.BARTENDER MANAGER Work Phone: [facility] 06-07-1994 trivalent poliovirus vaccine, live, oral Berenice Evelyn ENVIRONMENTAL AID.BARTENDER MANAGER Work Phone: [facility] 03-01-1994 haemophilus influenz ae type b vaccine, conjugate unspecified formulation Berenice Evelyn ENVIRONMENTAL AID.BARTENDER MANAGER Work Phone: [facility] 03-01-1994 hepatitis B vaccine, pediatric or pediatric/adolescent dosage Berenice Evelyn ENVIRONMENTAL AID.BARTENDER MANAGER Work Phone: [facility] 03-01-1994 measles, mumps and rubella virus vaccine Berenice Evelyn ENVIRONMENTAL AID.BARTENDER MANAGER Work Phone: [facility] 07-27-1993 diphtheria, tetanus toxoids and pertussis vaccine Berenice Evelyn ENVIRONMENTAL AID.BARTENDER MANAGER Work Phone: [facility] 07-27-1993 haemophilus influenz ae type b vaccine, conjugate unspecified formulation Berenice Evelyn ENVIRONMENTAL AID.BARTENDER MANAGER Work Phone: [facility] 07-27-1993 hepatitis B vaccine, pediatric or pediatric/adolescent dosage Berenice Evelyn ENVIRONMENTAL AID.BARTENDER MANAGER Work Phone: [facility] 03-16-1993 diphtheria, tetanus toxoids and pertussis vaccine Berenice Evelyn ENVIRONMENTAL AID.BARTENDER MANAGER Work Phone: [facility] 03-16-1993 haemophilus influenz ae type b vaccine, conjugate unspecified formulation Berenice Evelyn ENVIRONMENTAL AID.BARTENDER MANAGER Work Phone: [facility] 03-16-1993 trivalent poliovirus vaccine, live, oral Berenice Evelyn ENVIRONMENTAL AID.BARTENDER MANAGER Work Phone: [facility] 1992 diphtheria, tetanus toxoids and pertussis vaccine Berenice Evelyn ENVIRONMENTAL AID.BARTENDER MANAGER Work Phone: [facility] 1992 haemophilus influenz ae type b vaccine, conjugate unspecified formulation Paulina Evelyn ENVIRONMENTAL AID.BARTENDER MANAGER Work Phone: [facility] 1992 trivalent poliovirus vaccine, live, oral Berenice Evelyn ENVIRONMENTAL AID.BARTENDER MANAGER Work Phone: [facility] Payers Date Payer Category Payer [facility] [id number] 2023 Unknown [id number] 2023 Private Health Insurance [employer] [id number] 2023 Unknown [id number] 2022 Self-pay 2022 Unknown [id number] 2019 [facility] Other [id number] 2019 Unknown [employer] C[employer] PPO OOS [id number] 2019-Present [phone] [address] [place] [address] PPO [id number] 2019 Unknown [id number]. [id number]. [id number] 1992 Unknown [id number] 2.16.840.1.540610.3.579.2. 1286 1992 Unknown [id number] 2.16.840.1.545952.3.579.2. 1286 1992 Unknown [id number] 2.16.840.1.495649.3.579.2. 1286 1992 Unknown [id number] 2.16840.1.818387.3.579.2. 9 1992 Unknown [id number] 2.16.840.1.857513.3.579.2. 1259 1992 Unknown [id number] 2.16.840.1.737788.3.579.2. 9 1992 Unknown [id number] 2.16.840.1.790706.3.579.2. 9 1992 Unknown [id number] 2.16.840.1.436043.3.579.2. 1259 1992 Unknown [id number] 2.16.840.1.053088.3.579.2. 1259 1992 Unknown [id number] 2.16.840.1.667877.3.579.2. 9 1992 Unknown [id number] 2.16.840.1.014472.3.579.2. 1259 1992 Unknown [id number] 2.16.840.1.064744.3.579.2. 9 1992 Unknown [id number] 2.16840.1.056082.3.579.2. 1259 1992 Unknown [id number] 2.16.840.1.576065.3.579.2. 1259 1992 Unknown [id number] 2.16.840.1.012645.3.579.2. 1259 1992 Unknown [id number] 2.16.840.1.487705.3.579.2. 1259 1992 Unknown [id number] 2.16.840.1.339567.3.579.2. 1259 1992 Unknown [id number] 2.16.840.1.524609.3.579.2. 1259 1992 Unknown [id number] 2.16.840.1.043861.3.579.2. 1259 Unknown [id number] 2.16.840.1.931400.3.579.2. 531 Unknown [id number] 2.16.840.1.297878.3.579.2. 531 Social History Date Type Detail Facility Tobacco smoking stat us MIIS Tobacco smoking consumption unknown [facility] Start: 1990 Sex Assigned At Not on file [facility] Start: 01-15-2022 End: 10-17-2023 Tobacco smoking status MIIS Never smoked tobacco [facility] Start: 01-15-2022 End: 10-17-2023 Tobacco use and exposure Smokeless tobacco non-user [facility] Start: 01-15-2022 End: 08-23-2023 Alcohol intake Current drinker of alcohol (finding) [facility] Start: 01-15-2022 End: 07-25-2024 Alcohol intake [facility] Start: 01-12-2022 History SDOH Alcohol Frequency 2 [facility] Start: 01-12-2022 History SDOH Alcohol Std Drinks 1 [facility] Start: 01-15-2022 History SDOH Alcohol Comment occ. drink [facility] Start: 01-12-2022 History SDOH Social Connections Phone 5 [facility] Start: 01-12-2022 History SDOH Social Connections Get Together 4 [facility] Start: 01-12-2022 History SDOH Social Connections Living 7 [facility] Start: 01-12-2022 History SDOH Physical Activity MPS 3 [facility] Start: 1990 Sex Assigned At Female [facility] Start: 01-12-2022 End: 07-25-2024 Social connection and isolation panel [facility] Do you belong to any clubs or organizations such as gnosticist groups, unions, fraternal or athletic groups, or school groups? No [facility] Are you now , , , , never or living with a partner? Never [facility] How often to you hav e a drink containing alcohol? Monthly or less [facility] How many standard dr inks containing alcohol do you have on a typical day? 1 or 2 [facility] How often do you hav e 6 or more drinks on 1 occasion? Never [facility] How hard is it for y ou to pay for the very basics like food, housing, medical care, and heating Not hard at all [facility] Do you feel stress - tense, restless, nervous, or anxious, or unable to sleep at night because your mind is troubled all the time - these days [OSQ] Not at all [facility] (I/We) worried wheshelly er (my/our) food would run out before (I/we) got money to buy more. Never true [facility] Start: 01-12-2022 Gender identity Identifies as female gender (finding) [facility] Are you now , , , , never or living with a partner? Living with partner [facility] How hard is it for y ou to pay for the very basics like food, housing, medical care, and heating Not very hard [facility] Do you feel stress - tense, restless, nervous, or anxious, or unable to sleep at night because your mind is troubled all the time - these days [OSQ] To some extent [facility] The food that (I/we) bought just didn't last, and (I/we) didn't have money to get more. DK or Refused [facility] Start: 10-17-2023 End: 04-24-2025 Alcoholic beverage intake Ex-drinker (finding) [facility] Start: 10-17-2023 Alcohol Comment Caffeine intake: 1cup coffee/ day [facility] Start: 09-14-2023 [facility] Start: 04-22-2015 Sex Female (finding) [facility] Medical Equipment Procedure Code Equipment Code Equipment Origin al Text Equipment Identifier Dates 1 strip by In Vi tro route Daily Use in the morning prior to breakfast, 1 hour after each meal for a total of 4times daily. [id number] Start: 02-04-2025 End: 03-06-2025 1 each by In Vit ro route Daily Use to check FSBS four times daily [id number] Start: 02-04-2025 End: 03-06-2025 Use to inject insulin nightly [id number] Start: 03-12-2025 Goals Date Patient Goal Desired Activity /State Personal health goal Clinical Notes 01-08-2022 to 04-24-2025 Samia King LPN - 04/24/2025 11:30 AM EDTTelephone Encounter - JOEL Oakes - 04/23/2025 12:38 PM EDTTelephone Encounter - JOEL Oakes - 04/23/2025 12:38 PM EDTPatient Instructions Note [...] nursing note reviewed. Exam conducted with a tool straightener present. Vitals: Estimated body mass index is 37.22 kg/m as calculated from the following: Height as of 07/25/24: 5' 3 . Weight as of this encounter: 210 lb 1.9 oz. BP: 116/74 Patient's last menstrual period was 08/12/2024. ASSESSMENT & PLAN ICD-10-CM 1. Third trimester ([facility]) Z34.93 POCT urinalysis dipstick manually resulted CULTURE, GROUP B STREP WITH SUSCEPTIBLITY CULTURE, GROUP B STREP WITH SUSCEPTIBLITY 2. 36 weeks gestation of ([facility]) Z3A.36 POCT urinalysis dipstick manually resulted Patient [...] Diaz DO documented in this encounter [facility] 04-23-2025 Miscellaneous Notes Called regarding blood sugar [...] blood sugars weekly. documented in this encounter [facility] 04-23-2025 Telephone encounter Note Called regarding blood [...] sugars and send in blood sugars weekly. [facility] Work Phone: 04-15-2025 Miscellaneous Notes Received BG results and all are in target range. Called and left message of praise for all efforts and to call if questions. To send next week again. No changes. documented in this encounter [facility] 04-15-2025 Telephone encounter Note Received BG results and all are in target range. Called and left message of praise for all efforts and to call if questions. To send next week again. [facility] changes. [facility] 04-10-2025 History of Present illness Narrative Reason [...] nursing note reviewed. Exam conducted with a tool straightener present. Vitals: Estimated body mass index is 37.22 kg/m as calculated from the following: Height as of 07/25/24: 5' 3 . Weight as of this encounter: 210 lb 1.9 oz. BP: 120/70 Patient's last menstrual period was 08/12/2024. ASSESSMENT & PLAN ICD-10-CM 1. 34 weeks gestation of ([facility]) Z3A.34 POCT urinalysis dipstick manually resulted 2. Third trimester ([facility]) Z34.93 POCT urinalysis dipstick manually resulted 3. H/O gastric sleeve Z90.3 4. Insulin controlled gestational diabetes mellitus (GDM) during , antepartum ([facility]) O24.414 Return OB: Patient presents today for [...] Diaz DO documented in this encounter [facility] 04-09-2025 Miscellaneous Notes Called regarding blood sugar logs from 04/01/2025-04/07/2025 but the call went straight to voicemail. She had 4 elevated post prandial blood sugars, no pattern, but she did note that they were most likely related to higher carbohydrate meals. Continue with 10 units of Lantus and sending blood sugars weekly. Reminded to schedule a follow-up visit with a MFM provider for the second week in April. documented in this encounter [facility] 04-09-2025 Telephone encounter Note Called regarding blood sugar logs from 04/01/2025-04/07/2025 but the call went straight to voicemail. She had 4 elevated post prandial blood sugars, no pattern, but she did note that they were most likely related to higher carbohydrate meals. Continue with 10 units of Lantus and sending blood sugars weekly. Reminded to schedule a follow-up visit with a MFM provider for the second week in April. [facility] Work Phone: 04-01-2025 Miscellaneous Notes Left message for patient to call MFM back to reschedule a 4 week video visit shobha Marr. documented in this encounter [facility] 04-01-2025 Telephone encounter Note Left message for patient to call MFM back to reschedule a 4 week video visit shobha Marr. T [facility] 04-01-2025 History of Present illness Narrative [...] nightly, Disp: 100 each, Rfl: 2 25-IRON [id number] ORAL, Take 1 tablet by mouth in [...] continue - Labs - A1c: 5.1 on 2/8/25 - growth ultrasounds every 4 weeks after [...] Delivery recommendations : - Recommend delivery at [id number] - reviewed with pateint - Discuss delivery [...] by e-mail to: or by fax to: [phone] Daisha Morel PA-C [facility]- [facility] Office phone: [phone] Daisha Morel PA-C 04/01/25 1331 documented in this encounter [facility] 04-01-2025 Miscellaneous Notes Left message to remind patient of video visit today at 10 AM. Call back number given to reschedule if unable to keep appointment. documented in this encounter [facility] 04-01-2025 Telephone encounter Note Left message to remind patient of video visit today at 10 AM. Call back number given to reschedule if unable to keep appointment. [facility] [facility] 03-27-2025 History of Present illness Narrative [...] 81 mg, Daily Blood Glucose Monitoring Suppl ([employer] Glucometer) w/Device kit 1 kit, Does not [...] nursing note reviewed. Exam conducted with a tool straightener present. Vitals: Estimated body mass index is 36.28 kg/m as calculated from the following: Height as of 24: 5' 3 . Weight as of this encounter: 204 lb 12.8 oz. BP: 116/72 Patient's last menstrual period was 08/12/2024. ASSESSMENT & PLAN ICD-10-CM 1. Third trimester ([facility]) Z34.93 POCT urinalysis dipstick manually resulted 2. H/O gastric sleeve Z90.3 POCT urinalysis dipstick manually resulted 3. Gestational diabetes mellitus (GDM), antepartum, gestational diabetes method of control unspecified ([facility]) O24.419 POCT urinalysis dipstick manually resulted 4. 32 weeks gestation of ([facility]) Z3A.32 POCT urinalysis dipstick manually resulted Return [...] appointment. Patient continues to send FSBS to [facility] and doing well and [facility] continues to manage her Lantus dosing. She will begin NST/ BPP this week. Documented by Adelaida Dugan NP on behalf of: Roscoe Diaz DO documented in this encounter [facility] 03-26-2025 Miscellaneous Notes Called regarding blood sugar logs from 03/18/2025-03/24/2025 but received voicemail. Caryl had one elevated fasting blood sugar ( she may not of had a snack the night before) and three elevated blood sugars after dinner. She is taking 10 units of Lantus in the evening. Will send a MyChart message. documented in this encounter [facility] 03-26-2025 Telephone encounter Note Called regarding blood sugar logs from 03/18/2025-03/24/2025 but received voicemail. Caryl had one elevated fasting blood sugar ( she may not of had a snack the night before) and three elevated blood sugars after dinner. She is taking 10 units of Lantus in the evening. Will send a MyChart message. [facility] Work Phone: 03-19-2025 Miscellaneous Notes Blood glucose [...] now in target. documented in this encounter [facility] 03-19-2025 Telephone encounter Note Blood glucose log from 03/11/25 to 03/17/25 received. Patient did not answer. I left a voicemail asking her to check for a new MyChart message that I am going to leave with questions about her dinner values (4 out of 7 were still elevated). Patient started Lantus on 03/12/25 and all fasting BG now in target. [facility] 03-13-2025 History of Present illness Narrative Reason for Appointment: Patient ID: Caryl Zamarripa is a 34 y.o. female who presents for Routine Visit Patient presents today for Return OB appointment. MEDICATIONS Current Outpatient Medications Medication Instructions Alcohol Swabs (Alcohol Prep Pad) 70 % pads 1 Pad, Topical, Daily, Use four times daily to check FSBS. aspirin 81 mg, Daily Blood Glucose Monitoring Suppl ([employer] Glucometer) w/Device kit 1 kit, Does not [...] PLAN ICD-10-CM 1. 30 weeks gestation of ([facility]) Z3A.30 POCT urinalysis dipstick manually resulted 2. Third trimester ([facility]) Z34.93 POCT urinalysis dipstick manually resulted 3. H/O gastric sleeve Z90.3 4. Gestational diabetes mellitus (GDM), antepartum, gestational diabetes method of control unspecified ([facility]) O24.419 Return OB: Patient presents today for [...] SLICK Matias documented in this encounter [facility] 03-12-2025 History of Present illness Narrative [...] nausea or vomiting., Disp: , Rfl: 25-IRON [id number] ORAL, Take 1 tablet by mouth in [...] more likely to fail compared to insulin. prison data on children whose mothers took oral [...] Delivery recommendations : - Recommend delivery at [id number] - reviewed with pateint - Discuss delivery [...] values to us weekly by e-mail to: [email or web address] or by fax to: [phone] Daisha Morel PA-C Maternal- Medicine Office phone: [phone] Daisha Morel PA-C 03/12/25 1500 Summary: MFM [...] time 10 minutes. documented in this encounter [facility] 03-05-2025 Miscellaneous Notes Called regarding blood sugar logs from 02/25/2025-03/03/2025 but the call went directly to voicemail. Caryl had 1 one elevated fasting blood sugar, 1 elevated blood sugar after breakfast, one elevated blood sugar after lunch, and 4 elevated blood sugars after dinner. Will send a [employer] message. documented in this encounter [facility] 03-05-2025 Telephone encounter Note Called regarding blood sugar logs from 02/25/2025-03/03/2025 but the call went directly to voicemail. Caryl had 1 one elevated fasting blood sugar, 1 elevated blood sugar after breakfast, one elevated blood sugar after lunch, and 4 elevated blood sugars after dinner. Will send a [employer] message. [facility] Work Phone: 02-27-2025 History of Present illness [...] nursing note reviewed. Exam conducted with a tool straightener present. Vitals: Estimated body mass index is 36.1 kg/m as calculated from the following: Height as of 24: 5' 3 . Weight as of this encounter: 203 lb 12.8 oz. BP: 110/60 Patient's last menstrual period was 08/12/2024. ASSESSMENT & PLAN ICD-10-CM 1. 28 weeks gestation of ([facility]) Z3A.28 POCT urinalysis dipstick manually resulted 2. Third trimester ([facility]) Z34.93 POCT urinalysis dipstick manually resulted 3. H/O gastric sleeve Z90.3 4. Gestational diabetes mellitus (GDM), antepartum, gestational diabetes method of control unspecified ([facility]) O24.419 Return OB: Patient presents today for [...] Diaz DO documented in this encounter [facility] 02-26-2025 Miscellaneous Notes Called regarding blood [...] a MyChart message. documented in this encounter [facility] 02-26-2025 Telephone encounter Note Called regarding [...] questions. Will also send a MyChart message. [facility] Work Phone: 02-14-2025 Group counseling note Patient: Caryl Zamarripa Date: 02/14/2025 Vitals: 02/14/257 Weight: 92.7 kg (204 lb 6.4 oz) [...] Face to face time was 70 minutes. [facility] Work Phone: 02-14-2025 Miscellaneous Notes Patient: Caryl Zamarripa Date: 02/14/2025 Vitals: 02/14/257 Weight: 92.7 kg (204 lb 6.4 oz) [...] of food logs and blood glucoses to [email or web address], next Tuesday night/Tuesday. Please refer to health habits for other goals. Breakfast 6-6:30 AM 15-25 grams of CHO, Snack 9 AM 15-30 grams of CHO, Lunch 11:30-Noon 45 grams of CHO, Snack 2-3 PM 15-30 grams of CHO, Dinner 6 PM 45 grams of CHO, HS Snack 8-9 PM 15-30 grams of CHO. Face to face time was 70 minutes. documented in this encounter [facility] 02-11-2025 History of Present illness Narrative Reason [...] nursing note reviewed. Exam conducted with a tool straightener present. Vitals: Estimated body mass index is 35.87 kg/m as calculated from the following: Height as of 24: 5' 3 . Weight as of this encounter: 202 lb 8 oz. BP: 110/60 Patient's last menstrual period was 08/12/2024. ASSESSMENT & PLAN ICD-10-CM 1. Second trimester ([facility]) Z34.92 POCT urinalysis dipstick manually resulted 2. 26 weeks gestation of ([facility]) Z3A.26 3. H/O gastric sleeve Z90.3 US [...] Dugan NP documented in this encounter [facility] 01-10-2025 History of Present illness Narrative [...] nursing note reviewed. Exam conducted with a tool straightener present. Vitals: Estimated body mass index is [...] Diaz DO documented in this encounter [facility] 12-10-2024 History of Present illness Narrative [...] nursing note reviewed. Exam conducted with a tool straightener present. Vitals: Estimated body mass index is [...] at this visit. Pt was given the LOOKSIMA order and advised she will have to [...] SLICK Matias documented in this encounter [facility] 11-08-2024 History of Present illness Narrative [...] Diaz DO documented in this encounter [facility] 10-18-2024 History of Present illness Narrative [...] or undercooked meat, and stay away from [facility]. Patient has also been advised to [...] Mesa LPN documented in this encounter [facility] 08-02-2024 History of Present illness Narrative Images from the original note were not included. [address] , [address] [facility], [address] P: [phone] F: [phone] HPI Historian of HPI: patient Caryl Zamarripa [...] Left Turbinates: Enlarged and swollen. Mouth/Throat: Lips: [place]. Mouth: Mucous membranes are moist. Pharynx: Oropharynx [...] Refill: 0 documented in this encounter [facility] 07-25-2024 History of Present illness Narrative [...] Use: Not At Risk (07/19/2023) Received from [facility] AUDIT-C Frequency of Alcohol Consumption: Monthly or less Average Number of Drinks: 1 or 2 Frequency of Binge Drinking: Never Depression: Not at risk (06/29/2024) Received from [facility] PHQ-2 PHQ-2 score: 0 Physical Activity: Insufficiently Active (07/19/2023) Received from [facility], [facility] Exercise Vital Sign Days of Exercise per [...] Garner DO documented in this encounter [facility] 06-29-2024 Note HNO ID: [id number] Author: BERENICE ZEPEDA APRN.BARTENDER MANAGER Service: ? Author Type: Nurse Practitioner Type: [...] PHENTERMINE 37.5 MG TABLET Berenice Zepeda APRN.GIORGI [facility] 06-29-2024 History of Present illness [...] Berenice Zepeda APRN.CNP documented in this encounter [facility] 03-06-2024 Telephone encounter Note Order formatted Please advise [facility] 03-06-2024 Miscellaneous Notes Order formatted Please advise documented in this encounter [facility] 09-23-2023 Note HNO ID: [id number] Author: BERENICE ZEPEDA APRN.CNP Service: ? Author Type: Nurse Practitioner Type: Progress Notes Filed: 09/23/2023 15:52 Note Text: VIRTUAL VISIT PROGRESS NOTE This is a virtual visit using [employer] Video Visit. It required patient-provider interaction for the medical decision making as documented below. I have communicated my name and active licensure. The patient's identity and physical location were verified at the time of this visit. Either the patient or their legal home office representative has been informed of the risks [...] Outpatient Medications Medication Sig Omeprazole Magnesium (ACID SPECIAL PROJECTS COORDINATOR, OMEPRAZOLE,) 20 mg cpDR No current [...] on file for this visit. Berenice Zepeda APRN.[facility] 09-23-2023 History of Present illness Narrative VIRTUAL VISIT PROGRESS NOTE This is a virtual visit using [employer] Video Visit. It required patient-provider interaction for the medical decision making as documented below. I have communicated my name and active licensure. The patient's identity and physical location were verified at the time of this visit. Either the patient or their legal home office representative has been informed of the risks [...] Outpatient Medications Medication Sig Omeprazole Magnesium (ACID SPECIAL PROJECTS COORDINATOR, OMEPRAZOLE,) 20 mg cpDR No current [...] on file for this visit. Berenice Zepeda APRN.BARTENDER MANAGER documented in this encounter [facility] 08-23-2023 Note HNO ID: [id number] Author: BERENICE ZEPEDA APRN.GIORGI Service: ? Author [...] PHENTERMINE 37.5 MG TABLET Berenice Zepeda APRN.CNP [facility] 07-21-2023 Note HNO ID: [id number] Author: Berenice Zepeda APRN.GIORGI Service: ? Author Type: Nurse Practitioner Type: Progress Notes Filed: 07/22/2023 10:16 AM Note Text: Caryl Zamarripa is a 32 year old female here today for review of established medical problems as well as comprehensive physical examination. Obesity S/p gastric sleeve surgery in 03/2022 at [facility] in [place] Down about 70lb, has reached plateau Gym 4 days per week with cardio (treadmill, elliptical) Maybe not enough water Tries to focus on more protein, lower carbs Last 10 Encounter Wt Readings: Date: Wt: 07/21/2023 80.1 kg (176 lb 8 oz) 07/06/2022 81.6 kg (180 lb) 01/15/2022 104.3 kg (230 lb) BARREL LOADER in [facility] Dept Implanted control HM needs: Hepatitis B Vaccine(1 of 3 - 3-dose series) Never done Depression Assessment Never done HPV Testing Never done PAST MEDICAL HISTORY Diagnosis Date GERD (gastroesophageal reflux disease) Prediabetes PAST SURGICAL HISTORY Procedure Laterality Date PT ED BARIATRIC AND METABOLIC gastric sleeve 03/2022 ALLERGIES Patient has no known allergies. 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 Sensation grossly intact. Breast/Pelvic: Per BARREL LOADER ASSESSMENT/PLAN: 1. Routine adult health maintenance - ICD9: V70.0, ICD10: Z00.00 (primary diagnosis) - Counseled on healthy diet and regular exercise - Calcium intake with supplements or by diet of 1000 mg/day for under 50, 3748-7599 mg/day for 50+ - Discussed need and [...] comorbidity present - (more content not included)... [facility] 07-21-2023 History of Present illness Narrative Caryl Zamarripa is a 32 year old female here today for review of established medical problems as well as comprehensive physical examination. Obesity S/p gastric sleeve surgery in 03/2022 at [facility] in [place] Down about 70lb, has reached plateau Gym 4 days per week with cardio (treadmill, elliptical) Maybe not enough water Tries to focus on more protein, lower carbs Last 10 Encounter Wt Readings: Date: Wt: 07/21/2023 80.1 kg (176 lb 8 oz) 07/06/2022 81.6 kg (180 lb) 01/15/2022 104.3 kg (230 lb) [facility] HM needs: Hepatitis B Vaccine(1 of 3 - 3-dose series) Never done Depression Assessment Never done HPV Testing Never done PAST MEDICAL HISTORY Diagnosis Date GERD (gastroesophageal reflux disease) Prediabetes PAST SURGICAL HISTORY Procedure Laterality Date PT ED BARIATRIC AND METABOLIC gastric sleeve 03/2022 ALLERGIES Patient has no known allergies. 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 Sensation grossly intact. Breast/Pelvic: Per BARREL LOADER ASSESSMENT/PLAN: 1. Routine adult health maintenance - ICD9: V70.0, ICD10: Z00.00 (primary diagnosis) - Counseled on healthy diet and regular exercise - Calcium intake with supplements or by diet of 1000 mg/day for under 50, 4161-0658 mg/day for 50+ - Discussed need and [...] - HEP B SURF AB Berenice Zepeda APRN.BARTENDER MANAGER ' documented in this encounter [facility] 06-29-2023 Miscellaneous Notes Sent Valtrex 1 gram twice/day for 2 days with one refill. High stress can cause cold sores? How is your stress level? documented in this encounter [facility] 01-15-2022 Instructions Dasha Lujan MD - 01/15/2022 12:05 PM EDT -Get Hgba1c and K level checked in the near future. -Encourage you to lose 2 lbs/week as a healthy way via diet and exercise -Should you have any questions or concerns, do not hesitate to contact me anytime via my chart (Dr.Sunir Lujan) documented in this encounter [facility] 01-15-2022 History of Present illness Narrative Caryl Zamarripa is a 31 year old female who presents with Establish Care -Pt is here to Establish Care. 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 Says all labs checked out fine per pt discussion. Pt says she did get her thyroid lab work checked 4 years ago, and all checked out fine. Thyroid blood work was also checked recently. -OARRS reviewed: clean -Replanting Machine Crew: deferred seeing one at this time as pt is undergoing gastric sleeve evaluation (Bariatric Surgery) at [facility]. Pt says that she just needs [...] process to get Bariatric Surgery done at [facility]. (R73.9) Blood glucose elevated Plan: HGB A1C (E87.5) Hyperkalemia Plan: POTASSIUM BLD -Will have her get K level rechecked. (K76.0) Hepatic steatosis -LFT were normal. -Encourage weight reduction and avoid alcohol and tylenol as much as possible. -Will continue to monitor LFT. Dasha Lujan MD documented in this encounter [facility] 01-08-2022 Miscellaneous Notes Will advise on Tuesday when he returns Patient calling stating Dr Lujan agreed to take her into his practice but no documentation found in patient chart. Please advise. documented in this encounter [facility] Evaluation note Diagnosis Preoperative clearance- Primary Preoperative examination, unspecified Obesity (BMI 30-39.9) Obesity, unspecified Blood glucose elevated Other abnormal glucose Hyperkalemia Hyperpotassemia Hepatic steatosis Other chronic nonalcoholic liver disease documented [facility] this [facility] noteNo assessment information availableCl[facility] Work Phone: Evaluation note* Diagnosis Routine [...] Antibody response examination [facility]* Diagnosis Encounter for weight management Overweight (BMI 25.0-29.9) Overweight [facility] Diagnosis Encounter for weight management- Primary Overweight [facility]* Diagnosis Rectal bleeding- Primary Hemorrhage of rectum and anus documented in this encounter [facility]* Diagnosis Acute cough- Primary Chest congestion Other symptoms involving respiratory system and chest Bronchitis Bronchitis, not specified as acute or chronic documented in this encounter [facility]* Diagnosis Missed menses , unspecified gestational age Encounter for supervision of normal first in first trimester Nausea and vomiting in Unspecified vomiting of , unspecified as to episode of care [facility] Diagnosis 12 weeks gestation of [facility]* Diagnosis Well woman exam with [...] control unspecified- Primary [facility] Diagnosis 28 weeks gestation of ([facility]) Third trimester ([facility]) state, incidental H/O gastric sleeve Gestational diabetes mellitus (GDM), antepartum, gestational diabetes method of control unspecified ([facility]) [facility] Diagnosis Gestational diabetes mellitus (GDM) in second trimester, gestational diabetes method of control unspecified- Primary Gestational diabetes requiring insulin Abnormal maternal glucose tolerance, complicating , childbirth, or the puerperium, unspecified as to episode of care documented [facility] encounter [facility]* Diagnosis 30 weeks gestation of ([facility]) Third trimester ([facility]) state, incidental H/O gastric sleeve Gestational diabetes mellitus (GDM), antepartum, gestational diabetes method of control unspecified ([facility]) [facility] Diagnosis Gestational diabetes requiring insulin- Primary Abnormal maternal glucose tolerance, complicating , childbirth, or the puerperium, unspecified as to episode of care documented [facility] encounter [facility]* Diagnosis Third trimester ([facility]) [...] antepartum ([facility]) [facility]* Diagnosis Third trimester ([facility]) state, incidental 36 weeks gestation of ([facility]) documented in this encounter [facility] HealthcareInstructionsNot on filedocumented in this encounterProThomasville [facility] SystemInstructionsNot on filedocumented in this encounterTriHealth [facility] SystemInstructionsNot on filedocumented in this encounterTriHealth [facility] SystemInstructionsNot on filedocumented in this encounterTriHealth [facility] InstructionsNot on filedocumented in this encounterTriHealth [facility] InstructionsNot on filedocumented in this encounterTriHealth [facility] Summary Purpose Family History No [...] unspecified whether serious comorbidity present Berenice Zepeda APRN.BARTENDER MANAGER [id number] [place] [address] Referral ID Status Reason Start Date Expiration Date Visits Re quested Visits Authorized [id number] Closed 1 1 Specialty Diagnoses / Procedures Referred By Zachery kenyon Referred To Contact Diagnoses Encounter for weight management Overweight (BMI 25.0-29.9) Berenice Zepeda APRN.BARTENDER MANAGER [id number] [place] [address] Referral ID Status Reason Start Date Expiration Date Visits Re quested Visits Authorized [id number] Closed 1 1 Additional Source Comments Source Comments (unrecognize d section and content) In the event this informatio n is protected by the Federal Confidentiality of Alcohol and Drug Abuse Patient Records regulations: The Federal rules restrict any use of the information to criminally investigate or prosecute any alcohol or drug abuse patient.[facility] Healthcare[facility] the event this information is protected by the Federal Confidentiality of Alcohol and Drug Abuse Patient Records regulations: The Federal rules restrict any use of the information to criminally investigate or prosecute any alcohol or drug abuse patient.[facility] HealthcareIn the event this information is protected by the Federal Confidentiality of Alcohol and Drug Abuse Patient Records regulations: The Federal rules restrict any use of the information to criminally investigate or prosecute any alcohol or drug abuse patient.Uk HealthcareIn the event this information is protected by the Federal Confidentiality of Alcohol and Drug Abuse Patient Records regulations: The Federal rules restrict any use of the information to criminally investigate or prosecute any alcohol or drug abuse patient.Uk HealthcareIn the event this information is protected by the Federal Confidentiality of Alcohol and Drug Abuse Patient Records regulations: The Federal rules restrict any use of the information to criminally investigate or prosecute any alcohol or drug abuse patient.Uk HealthcareIn the event this information is protected by the Federal Confidentiality of Alcohol and Drug Abuse Patient Records regulations: The Federal rules restrict any use of the information to criminally investigate or prosecute any alcohol or drug abuse patient.Uk HealthcareIn the event this information is protected by the Federal Confidentiality of Alcohol and Drug Abuse Patient Records regulations: The Federal rules restrict any use of the information to criminally investigate or prosecute any alcohol or drug abuse patient.[facility] Reason for Visit (unrecogniz ed section and [...] Contact General Surgery Diagnoses Rectal bleeding Procedures [place] OFFICE/OUTPATIENT NEW HIGH MDM Sina Garner, DO [address] [facility] [address] [place] [address] Phone: tel: fax: Sina Garner, DO [address] [facility] [address] [place] [address] Phone: tel: fax: Referral ID Status Reason Start Date Expiration Date V isits Requested Visits Authorized [id number] Closed Specialty Services Required 07/11/2024 01/07/2025 1 1 Reason Comments Amenorrhea Reason Comments Routine Visit Reason Comments Elevated Glucose Tolerance Test Specialty Diagnoses / Procedures Referred By Zachery kenyon Referred To Contact Maternal and Medicine Diagnoses Gestational diabetes mellitus (GDM) in second trimester, gestational diabetes method of control unspecified Roscoe Diaz R, DO [address] [place] [address] Phone: tel: fax: Maternal- Medicine at [facility] [address] [place] [address] Phone: tel: fax: Referral ID Status Reason Start Date Expiration Date Visits Requested Visits Authorized [id number] Pending Review Specialty Services Required 02/06/2025 02/06/2026 1 1 Reason Comments MED START Care Teams (unrecognized sec tion and content) Cartridge Loader Relationship Specialty [place] [address] [place] [address] PCP - General Internal Medicine 01/11/22 Team Status: Inactive Member Role Status Dates Dasha Lujan MD Primary Care Provider Active Reena Breaux APRN TRACK ANNOUNCER-C Attending Provider Activ e Team Status: Active Member Role Status Dasha Lujan MD Primary Care Provider Active Cartridge Loader Relationship Specialty [place] [address] [place] [address] PCP - General Internal Medicine 01/11/22 Cartridge Loader Relationship Specialty [place] [address] [place] [address] PCP - General Internal Medicine 01/11/22 Cartridge Loader Relationship Specialty [place] [address] [place] [address] PCP - General Internal Medicine 01/11/22 Cartridge Loader Relationship Specialty [place] [address] [place] [address] PCP - General Internal Medicine 01/11/22 Cartridge Loader Relationship Specialty [place] [address] [place] [address] PCP - General Internal Medicine 01/11/22 Cartridge Loader Relationship Specialty Start Date End Date Unallocated, MD Kevin Jackson [facility] [place] [address] PCP - General Family Medicine 10/17/23 Cartridge Loader Relationship Specialty Start Date End Date Unallocated, MD Kevin Jackson [facility] [place] [address] PCP - General Family Medicine 10/17/23 Cartridge Loader Relationship Specialty Start Date End Date Unallocated, [place] [address] PCP - General Family Medicine 10/17/23 Cartridge Loader Relationship Specialty Start Date End Date Unallocated, Chiara Pate MD [facility] [address] [facility] [address] PCP - General Family Medicine 10/17/23 Cartridge Loader Relationship Specialty Start Date End Date Unallocated, Chiara Pate MD [facility] [address] [facility] [address] PCP - General Family Medicine 10/17/23 Cartridge Loader Relationship Specialty Start Date End Date Unallocated, Chiara Pate MD [facility] [place] [address] PCP - General Family Medicine 10/17/23 Edu Alvarez NP [address] [place] [address] PCP - [employer] 09/22/24 Cartridge Loader Relationship Specialty Start Date End Date Unallocated, Chiara Pate MD [address] [place], [place] [address] [place] [address] PCP - General Family Medicine 10/17/23 Edu Alvarez, TRACK ANNOUNCER [address] [place] [address] PCP - [employer] 09/22/24 Cartridge Loader Relationship Specialty Start Date End Date Unallocated, Chiara Pate MD [facility] [place] [address] PCP - General Family Medicine 10/17/23 Edu Alvarez TRACK ANNOUNCER [address] [place] [address] PCP - [employer] 09/22/24 Cartridge Loader Relationship Specialty Start Date End Date Unallocated, Chiara Pate MD [facility] [place] [address] PCP - General Family Medicine 10/17/23 Edu Alvarez NP [address] [place] [address] PCP - [employer] 09/22/24 Cartridge Loader Relationship Specialty Start Date End Date Unallocated, Chiara Pate MD [facility] [place] [address] PCP - General Family Medicine 10/17/23 Edu Alvarez NP [address] [place] [address] PCP - [employer] 09/22/24 Cartridge Loader Relationship Specialty Start Date End Date Unallocated, Chiara Pate MD [facility] [place] [address] PCP - General Family Medicine 10/17/23 Edu Alvarez, TRACK ANNOUNCER [address] [place] [address] PCP - [employer] 09/22/24 Cartridge Loader Relationship Specialty Start Date End Date Unallocated, Chiara Pate MD [facility] [place] [address] PCP - General Family Medicine 10/17/23 Edu Alvarez NP [address] [place] [address] PCP - [employer] 09/22/24 Cartridge Loader Relationship Specialty Start Date End Date Unallocated, Chiara Pate MD [address] [place] [address] PCP - General Family Medicine 10/17/23 Edu Alvarez NP [address] [place] [address] PCP - [employer] 09/22/24 Cartridge Loader Relationship Specialty Start Date End Date Unallocated, Noms MD Herlinda [address] [place] [address] PCP - General Family Medicine 10/17/23 Edu Alvarez TRACK ANNOUNCER [address] [place] [address] PCP - [employer] 09/22/24 Cartridge Loader Relationship Specialty Start Date End Date Unallocated, Noms MD Herlinda [address] [place] [address] PCP - General Family Medicine 10/17/23 Edu Alvarez TRACK ANNOUNCER [address] [place] [address] PCP - [employer] 09/22/24 Cartridge Loader Relationship Specialty Start Date End Date Unallocated, Abhijeets MD Herlinda [address] [place] [address] PCP - General Family Medicine 10/17/23 Edu Alvarez NP [address] [place] [address] PCP - [employer] 09/22/24 INFORMATION SOURCE (unrecogn ized section and content) DATE CREATED AUTHOR 01/16/2022 [facility] DATE CREATED AUTHOR AUTHOR'S ORGANIZ ATION 10/18/2022 [facility] DATE CREATED AUTHOR AUTHOR'S ORGANIZ ATION 07/01/2024 [facility] DATE CREATED AUTHOR AUTHOR'S ORGANIZ ATION 04/02/2025 [facility] DATE CREATED AUTHOR AUTHOR'S ORGANIZ ATION 04/26/2025 [facility] EPIC Goals (unrecognized section [...] BE BASED ON THE PRIMARY CLINICAL RECORDS. [employer] provides no warranty or guarantee of the accuracy or completeness of information in this document.
== END 2025-04-26 15:46 | disposition home or self-care (01) ==
LOC: FBCO 15:03 → FBC 15:07
PROVIDERS: Visit Provider Obstetrics & Gynecology
DX: O36.5930 Maternal care for other known or suspected poor fetal growth, third trimester, not applicable or unspecified (principal); Z3A.36 36 weeks gestation of pregnancy
CPT/HCPCS: 59025

== ENCOUNTER 2025-04-29 15:00 | Outpatient (OUT) | payer BC, SELFPAY ==
--- NOTE | 2025-04-29 15:02 | US_ITS ---
The [address] [address] Patient Name: TRUDI ZAMARRIPA MRN: [id number] date: 1990 Sex: F Assigned Patient Location: [facility] Current Patient Location: [facility] Accession/Order Number: [id number] Exam Date: 04/29/2025 15:05 Report Date: 04/29/2025 15:39 At the request of: MAULIK QUIROZ Procedure: US OB BPP w non-stress Biophysical profile. Reason for exam: History of gastric sleeve surgery COMPARISON: 04/23/2025 TECHNIQUE: Transabdominal imaging of the gravid uterus was obtained. FINDINGS: The olive pitter reports a BPP of 8 out of 8. HELLEN is normal at 12.0 cm. heart rate 135 bpm. US/US OB BPP w non-stress IMPRESSION: BPP 8 out of 8. Impression dictated by: Cy Jensen Jr., D.O. 04/29/2025 3:39 PM Dictation Location: [place] [address] Electronically authenticated by: [id number] Y Date: 04/29/2025 15:39
[2025-04-29 15:33] VITALS: BP 102/56; PULSE 66
== END 2025-04-29 16:01 | disposition home or self-care (01) ==
LOC: US 15:00 → FBC 15:02
PROVIDERS: Visit Provider Physician Assistant
DX: O26.893 Other specified pregnancy related conditions, third trimester (principal); Z3A.37 37 weeks gestation of pregnancy; Z90.3 Acquired absence of stomach [part of]
CPT/HCPCS: 76818

== ENCOUNTER 2025-05-02 15:03 | Outpatient (OUT) | payer BC, SELFPAY ==
--- OUTSIDE RECORDS SUMMARY | 2024-04-12 04:45 | XMS_ITS | Continuity of Care Document ---
Author Organization [employer] [facility] Address [address] [place] [address] Phone Care Team Providers Care Career Developer Name Role Phone Reena Breaux CNP Unavailable [...] Providers Copied on Encounter OFFICE/OUTPATI ENT VISIT, [facility] [employer] [facility], [address], [place], [place], [address], [place] tel:[phone] [facility] No Information Saeid Valles. [address] [facility] [address], [place], [place], [address], [place]. tel:[phone] Referring Provider: Reena Breaux, [address] [facility] [address], [place], [address]. tel:[phone] OFFICE/OUTPATI ENT VISIT, [employer] [facility], [address] [place] [address] [address], [place], [place], [address], [place] tel:[phone] [facility] No Information Saeid Valles. [address], [facility] [place], [address], [place]. tel:[phone] Referring Provider: Reena Breaux, [facility] [address], [place], [address]. tel:[phone] OFFICE/OUTPATI ENT VISIT, [employer] [facility], [address], [place], [place], [address], [place] tel:[phone] [facility] No Information Saeid Valles. [address], [place], [place], [address], [place]. tel:[phone] Referring Provider: Reena Breaux, [facility] [address], [place], [address]. tel:[phone] [employer] [facility], [address] [place] [address] [address], [place], [place], [address], [place] tel:[phone] [facility] No Information Saeid Valles. [address], [place], [place], [address], [place]. tel:[phone] Referring Provider: Reena Breaux, [facility] [address], [place], [address]. tel:[phone] [facility], [address] [place] [address] [address], [place], [place], [address], [place] tel:[phone] [facility] No Information Saeid Valles. [address], [place], [place], [address], [place]. tel:[phone] Referring Provider: Reena Breaux, [facility] [address], [place], [address]. tel:[phone] [employer] [facility], [address] [place] [address] [address], [place], [place], [address], [place] tel:[phone] [facility] IP No Information Robert Mcmahon. [address] [facility] [address], [place], [place], [address], [place]. tel:[phone] Referring Provider: Lisandro Lieberman, [address] [facility] [address], [place], [address]. tel:[phone] [employer] [facility], [address] [place] [address] [address], [place], [place], [address], [place] tel:[phone] [facility] IP No Information Saeid Valles. [address] [facility] [address], [place], [place], [address], [place]. tel:[phone] Referring Provider: Reena Breaux, [address] [place] [address] [address], [place], [address]. tel:[phone] OFFICE/OUTPATI ENT VISIT, [facility] [employer] [facility], [address] [place] [address] [address], [place], [place], [address], [place] tel:[phone] [facility] No Information Robert Mcmahon. [address] [facility] [address], [place], [place], [address], [place]. tel:[phone] Referring Provider: Lisandro Lieberman, [address] [facility] [address], [place], [address]. tel:[phone] PSYCH DIAGNOSTIC EVALUATION [facility] [employer] [facility], [address] [place] [address] [address], [place], [address], [place] tel:[phone] [facility] No Information Omari Beltran. [address] [facility] [address], [place], [place], [address], [place]. tel:[phone] Referring Provider: Ruby Salcido, [address] [place] [address] [address], [place], [address]. tel:[phone] OFFICE/OUTPATI ENT VISIT, [facility], [address], [place], [place], [address], [place] tel:[phone] [facility] No Information Robert Mcmahon. [address] [facility] [address], [place], [place], [address], [place]. tel:[phone] Referring Provider: Lisandro Lieberman, [address] [facility] [address], [place], [address]. tel:[phone] Family History Family Member Type Diagnosis Age At Onset No Information Payers Payer name Insurance type Covered constitution party ID Bernice harley(gilmar) Capo [id number] Social History Type Description Quantity Date Captured Comments Sex Female Smoking Status No Information Chief Complaint And Reason For Visit No Information Reason For Referral Reason For Referral No Information History Of Present Illness Encounter Date Complaint History Of Prese nt Illness No Information Functional Status Date Functional Assessmen t No Information Instructions Date Instruction Additional Infor mation No Information Assessments Type Assessment Date No Information Patient Care Teams Name Effective Dates (start - stop) Status Members No Information
--- OUTSIDE RECORDS SUMMARY | 2025-04-24 11:30 | XMS_ITS | Encounter Summary ---
Author Organization [facility] Address [address] [place] [address] Care Team Providers Care Raw Shellfish Preparer Name Role Phone Unallocated, Noms Provider Primary Care Provi chrissy Amalia Bruce DOORPERSON Unavailable [phone] Reason for Visit * Reason Comments Routine Visit Encounter Details Date Type Department Care Team (Late st Contact Info) Description 04/24/2025 11:30 AM EDT Routine [facility]IARA Johnson OBGYN [address] [place] [address] Roscoe Diaz DO [address]ache[address] Johnson, [facility]11 Third trimester ([facility]); 36 weeks gestation of ([facility]) Social History Tobacco Use Types Packs/Day Years [...] nursing note reviewed. Exam conducted with a drama teacher present. Vitals: Estimated body mass index is 37.22 kg/m?? as calculated from the following: Height as of 07/25/24: 5' 3 . Weight as of this encounter: 210 lb 1.9 oz. BP: 116/74 Patient's last menstrual period was 08/12/2024. ASSESSMENT & PLAN ICD-10-CM 1. Third trimester ([facility]) Z34.93 POCT urinalysis dipstick manually resulted CULTURE, GROUP B STREP WITH SUSCEPTIBLITY CULTURE, GROUP B STREP WITH SUSCEPTIBLITY 2. 36 weeks gestation of ([facility]) Z3A.36 POCT urinalysis dipstick manually resulted Patient [...] on file documented as of this encounter Goals Goal Patient Goal Type Associated Problems Recent Progress Patient-Stated? Author Reminders Care Plan OB Reminders No Open Scheduling, Background documented as of this encounter Procedures Procedure Name Priority Date/Time Associated Diagnosis Comments POCT URINALYSIS DIPSTICK Routine 04/24/2025 11:56 AM EDT Third trimester ([facility]) 36 weeks gestation of ([facility]) CULTURE, GROUP B STREP WITH SUSCEPTIBLITY Routine 04/24/2025 11:41 AM EDT Third trimester ([facility]) documented in this encounter Results * POCT [...] Positive Urine 04/24/2025 11:5 6 AM EDT us Roscoe Joe DO POINT OF CARE TEST ENTER/EDIT OR DERABLES Final Result * CULTURE, GROUP B STREP WITH SUSCEPTIBLITY (04/24/2025 11:41 AM EDT) Swab 04/24/2025 11:4 1 AM EDT us Roscoe Joe DO LAB BLOOD ORDERABLES Final Resul t EXTERNAL LAB documented in this encounter Visit Diagnoses Diagnosis Third trimester ([facility]) state, incidental 36 weeks gestation of ([facility]) documented in this encounter Additional Health Concerns Active Problems Noted Date Diagnosed Date OB Reminders 10/19/2024 documented as of this encounter Care Teams Raw Shellfish Preparer Relationship Specialty Start Date End Date Unallocated, Noms Provider, [address] [place] [address] PCP - General Family Medicine 10/17/23 Amalia Bruce, TONIA [address] [place] [address] PCP - Capo Wild 09/22/24 documented as of this encounter
--- OUTSIDE RECORDS SUMMARY | 2025-05-01 08:00 | XMS_ITS | Encounter Summary ---
Author Organization [facility] tem Address [id number] [address] [place] [address] Care Team Providers Care Elementary Assistant Principal Name Role Phone Unavailable Primary Care Provider Unavailabl e Encounter Details Date Type Department Care Team (Late st Contact Info) Description 05/01/2025 8:00 AM EDT Telemedicine Maternal- Medicine at [facility] [address] [place] [phone] Marilia Dillon APRN-CNP [address] [place] [address] Gestational diabetes requiring insulin (Primary Dx) Social [...] Visit via Real-time Synchronous Audiovisual Provider Location: [facility] MATERNAL- MEDICINE AT [facility] [address] [facility]. [facility] [phone] Patient Location: Patient's home Video Visit Consent [...] that there are some limitations compared to nzfu-td-zffm evaluations. The patient consented to the presence [...] pain. +. She is being followed at [facility] due to GDMA2. States she is following [...] insulinnightly, Disp: 100 each, Rfl: 2 25-IRON [id number] ORAL, Take 1 tablet by mouth in the morning., Disp: , Rfl: LABS: No results found for: GLUF , MICROALBUR , LDLCALC , CREATININE No results found for: TSH , T3 , TOTALT4 , THYROIDAB No results found for: [id number] No results found for: CREATININE , BUN [...] by e-mail to: or by fax to: [phone] TIME OF CONSULTATION: 20 minutes with the patient, >50% in discussion and counseling, coordination of care which was zlbz-bc-eyms, review of records and communication back to referring provider. BRIE Farias 05/01/25 0817 documented in this encounter Plan of Treatment Not on file documented as of this encounter Visit Diagnoses Diagnosis Gestational diabetes requiring insulin- Primary Abnormal maternal glucose tolerance, complicating , childbirth, or the puerperium, unspecified as to episode of care documented in this encounter
--- OUTSIDE RECORDS SUMMARY | 2025-05-01 09:20 | XMS_ITS | Encounter Summary ---
Author Organization [facility] Address [address] [place] [address] Care Team Providers Care Treating Machine Operator Name Role Phone Unallocated, Noms Provider Primary Care Provi chrissy Amalia Bruce PRESCHOOL ASSISTANT TEACHER Unavailable [phone] Reason for Visit * Reason Comments Routine Visit Encounter Details Date Type Department Care Team (Late st Contact Info) Description 05/01/2025 9:20 AM EDT Routine CHIARA Johnson OBGYN [address] [place] [address] Rosy Barton PA [address] [facility] [address] [place], [facility] 37 weeks gestation of ([facility]); Third trimester ([facility]); H/O gastric sleeve; Insulin controlled gestational diabetes mellitus (GDM) during , antepartum ([facility]) Social History Tobacco Use Types Packs/Day [...] 81 mg, Daily Blood Glucose Monitoring Suppl ([employer] Glucometer) w/Device kit 1 kit, Does not [...] nursing note reviewed. Exam conducted with a parachute inspector present. Vitals: Estimated body mass index is 38.11 kg/m?? as calculated from the following: Height as of 07/25/24: 5' 3 . Weight as of this encounter: 215 lb 1.9 oz. BP: 110/60 Patient's last menstrual period was 08/12/2024. ASSESSMENT & PLAN ICD-10-CM 1. 37 weeks gestation of ([facility]) Z3A.37 POCT urinalysis dipstick manually resulted 2. Third trimester ([facility]) Z34.93 POCT urinalysis dipstick manually resulted 3. H/O gastric sleeve Z90.3 4. Insulin controlled gestational diabetes mellitus (GDM) during , antepartum ([facility]) O24.414 Return OB: Patient presents today [...] AM EDT 37 weeks gestation of ([facility]) Third trimester ([facility] documented in this encounter Results * [...] Diagnoses Diagnosis 37 weeks gestation of ([facility] Third trimester ([facility]) state, incidental H/O gastric sleeve Insulin controlled gestational diabetes mellitus (GDM) during , antepartum ([facility]) documented in this encounter Additional Health Concerns Active Problems Noted Date Diagnosed Date OB Reminders 10/19/2024 documented as of this encounter Care Teams Treating Machine Operator Relationship Specialty Start Date End Date Unallocated, Noms Provider, [place] [address] PCP - General Family Medicine 10/17/23 Amalia Bruce NP [address] [place] [address] PCP - Capo Wild 09/22/24 documented as of this encounter
--- OUTSIDE RECORDS SUMMARY | 2025-05-02 15:05 | XMS_ITS | Encounter Summary ---
[id number] [address] [place] [address] Care Team Providers Care Information Assoc Name Role Phone Unavailable Primary Care Provider Unavailabl e Encounter Details Date Type Department Care Team (Latest Contact Info) Description 05/01/2025 Travel Social History Tobacco Use Types Packs/Day [...]
--- OUTSIDE RECORDS SUMMARY | 2025-05-02 15:05 | XMS_ITS | Encounter Summary ---
Author Organization [facility] Address [facility] [place] [address] Care Team Providers Care Furniture Painter Name Role Phone Dasha Lujan MD Primary Care Provider Sonia Dickerson PRESS PIPE INSPECTOR.OVEN TENDER BAGELS Unavailable Fatimah Geiger PRESS PIPE INSPECTOR.OVEN TENDER BAGELS Unavailable [phone] Ruth Richardson PRESS PIPE INSPECTOR.OVEN TENDER BAGELS Unavailable Berenice Rivas PRESS PIPE INSPECTOR.OVEN TENDER BAGELS Unavailable Zarina Pope-C Unavailable Source Comments In the event this information is protected by the Federal Confidentiality of Alcohol and Drug AbusePatient Records regulations: The Federal rules restrict any use of the information to criminally investigate or prosecute any alcohol or drug abuse patient.[facility] Encounter Details Date Type Department Care Team (Late st Contact Info) Description 06/21/2023 Patient Msg Internal Medicine [address] [place] [address] Provider, Ccf APPOINTMENT CANCELED Social History Tobacco [...] How often do you attend chur or temple services? Never 01/12/2022 Do you belong to any clubs o r organizations such as confucianist groups, unions, fraternal or athletic groups, or [...] Answer Date Recorded PHQ-2 score 0 01/12/2022 [facility] of Occupat ional Health - Occupational [...] slept in a assisted (including now)? No 06/29/2022 Area Deprivation Index Answer Date Vern rded National Score (1-100), lower number is lower ri sk 70 09/03/2022 State Score (1-10), lower number is lower risk N ot on file 09/03/2022 Data from: https://www.neighborhoodatlas.medicine.[facility].edu/. Last address used for calculation Tari [...] on filedocumented in this encounter Care Teams Furniture Painter Relationship Specialty [place] [address] [place], [place] [id number] PCP - General Internal Medicine 01/11/22 Sonia Dickerson APRN.CNP [address] [place] [address] Clam Shovel Operator Internal Medicine 07/30/24 08/29/24 Fatimah Geiger, PRESS PIPE INSPECTOR.OVEN TENDER BAGELS [address] [place] [address] [facility] 07/30/24 Ruth Richardson APRN.OVEN TENDER BAGELS [address] [place] [address] [facility] 07/30/24 08/29/24 Berenice Rivas, PRESS PIPE INSPECTOR.OVEN TENDER BAGELS [address] [place] [address] [facility] 07/30/24 08/29/24 Zarina Pope PA-C [address] [place] [address] [facility] 07/30/24 08/29/24 documented as of this encounter
--- OUTSIDE RECORDS SUMMARY | 2025-05-02 15:06 | XMS_ITS | Encounter Summary ---
Author Organization [facility] Address [address] [place] [address] Care Team Providers Care Waiter/Waitress Second Class Name Role Phone Unallocated, Noms Provider Primary Care Provi chrissy Amalia Bruce CNC MAINTENANCE MECHANIC Unavailable [phone] Encounter Details Date Type Department Care Team (Late st Contact Info) Description 12/26/2024 Orders Only CHIARA Burk OBGYN [address] [place] [address] Iman Saldana LPN [address] [place] [id number] Social History Tobacco Use Types Packs/Day Years [...] documented as of this encounter Care Teams Waiter/Waitress Second Class Relationship Specialty Start Date End Date Unallocated, Noms Provider, formerly [facility] [place] [address] PCP - General Family Medicine 10/17/23 Amalia Bruce, CNC MAINTENANCE MECHANIC [address] [place] [address] PCP - Capo Wild 09/22/24 documented as of this encounter
--- OUTSIDE RECORDS SUMMARY | 2025-05-02 15:06 | XMS_ITS | Encounter Summary ---
Author Organization [facility] Address [address] [place] [address] Care Team Providers Care Insurance Healthcare Representative Name Role Phone Unallocated, Noms Provider Primary Care Provi chrissy Amalia Bruce PAYROLL AND BENEFITS SPECIALIST Unavailable [phone] Reason for Visit * Reason Onset Date Comments Med Refill 10/23/2024 Encounter Details Date Type Department Care Team (Late st Contact Info) Description 10/23/2024 Refill [facility] [address] [facility] [address] [place] [address] Unallocated, Noms Provider, [address] [place] [address] Social History Tobacco Use Types Packs/Day Years [...] documented as of this encounter Care Teams Insurance Healthcare Representative Relationship Specialty Start Date End Date Unallocated, Noms Provider, [address] [place] [address] PCP - General Family Medicine 10/17/23 Amlaia Bruce, TONIA [address] [place] [address] PCP - Capo Wild 09/22/24 documented as of this encounter
--- OUTSIDE RECORDS SUMMARY | 2025-05-02 15:06 | XMS_ITS | Encounter Summary ---
Author Organization [facility] Address [address] [place] [address] Care Team Providers Care Fabricator Artificial Breast Name Role Phone Unallocated, Noms Provider Primary Care Provi chrissy Amalia Bruce NEWSPAPER CARRIERS SUPERVISOR Unavailable [phone] Encounter Details Date Type Department Care Team (Late st Contact Info) Description 02/04/2025 Results Follow-Up CHIARA Johnson [facility]BGYLee [address] [facility] [facility] [address] [place] [address] Monika Mesa LPN [address] [place] [id number] ALL CBC WITH AUTO DIFF, GLUCOSE 1 [...] documented as of this encounter Care Teams Fabricator Artificial Breast Relationship Specialty Start Date End Date Unallocated, Noms Provider, [address] [place], [place] [id number] PCP - General Family Medicine 10/17/23 Amalia Bruce, TONIA [address] [place] [address] PCP - Capo Wild 09/22/24 documented as of this encounter
--- OUTSIDE RECORDS SUMMARY | 2025-05-02 15:06 | XMS_ITS | Encounter Summary ---
Author Organization [facility] Address [address] [place] [address] Care Team Providers Care Tobacco Stripper Name Role Phone Unallocated, Noms Provider Primary Care Provi chrissy Amalia Bruce MOTORCYCLE ASSEMBLER Unavailable [phone] Encounter Details Date Type Department Care Team (Late st Contact Info) Description 04/23/2025 Clinisync Result Encounter [facility] External Department Unsolicited Rosy Quiroz PA [address] [place] [address] [place] [address] Social History Tobacco Use Types Packs/Day Years [...] PM EDT Narrative 04/23/2025 4:37 [place] [address] Ultrasound Report Signed Patient: TRUDI ZAMARRIPA MR#: [id number] : 1990 Acct:[id number] Age/Sex: 34 / F ADM Date: 04/23/25 Loc: [facility] 250-[address]: Rosy Quiroz Ordering Physician: Rosy Quiroz Date of Service: 04/23/25 Procedure(s): US OB BPP w non-stress Accession Number(s): [id number] cc: Rosy Quiroz; Physician,Non-Staff M.D. The [place] [address] Patient Name: TRUDI ZAMARRIPA MRN: [id number] date: 1990 Sex: F Assigned Patient Location: Current Patient Location: US Accession/Order Number: [id number] Exam Date: 04/23/2025 16:03 Report Date: 04/23/2025 16:35 At the request of: ROSY QUIROZ Procedure: US OB BPP w non-stress Biophysical profile. Reason for exam: History of gastric sleeve surgery COMPARISON: 04/15/2025 TECHNIQUE: Transabdominal imaging of the gravid uterus was obtained. FINDINGS: The aviation tactical readiness officer reports a BPP of 8 out of 8. HELLEN is normal at 11.5 cm. heart rate 135 bpm. US/US OB BPP w non-stress IMPRESSION: BPP 8 out of 8. Impression dictated by: Cy Jensen Jr., D.O. 04/23/2025 4:35 PM Dictation Location: [place] [address] Electronically authenticated by: [id number] Y Date: 04/23/2025 16:35 Dictated By: Cy Jensen M.D. Signed By: 04/23/251636 DD/ 34 TD/TT: Ginner: Procedure Note Radiology, Radiologist, - 04/23/2025 [place] [address] Ultrasound Report Signed Patient: TRUDI ZAMARRIPA R#: [id number] : 1990Acct:[id number] Age/Sex: 34 / FADM Date: 04/23/25 Loc: [facility] [address]: Rosy Quiroz Ordering Physician: Rosy Quiroz Date of Service: 04/23/25 Procedure(s): US OB BPP w non-stress Accession Number(s): [id number] cc: Rosy Quiroz; Physician,Non-Staff Shimon [facility] [place] [address] Patient Name: TRUDI ZAMARRIPA MRN: [id number]:[id number] date: 1990 Sex: F Assigned Patient Location: US Current Patient Location: US Accession/Order Number: [id number] Exam Date: 04/23/2025 16:03 Report Date: 04/23/2025 16:35 At the request of: ROSY QUIROZ Procedure: US OB BPP w non-stress Biophysical profile. Reason for exam: History of gastric sleeve surgery COMPARISON: 04/15/2025 TECHNIQUE: Transabdominal imaging of the gravid uterus was obtained. FINDINGS: The aviation tactical readiness officer reports a BPP of 8 out of 8. HELLEN is normal at11.5 cm. heart rate 135 bpm. US/US OB BPP w non-stress IMPRESSION: BPP 8 out of 8. Impression dictated by: Cy Jensen Jr., D.O. 04/23/2025 4:35 PM Dictation Location: [place] [address] Electronically authenticated by: [id number] Y Date: 6:35 Dictated By: Cy Jensen M.D. Signed By:04/23/251636 DD/ 1635 TD/TT: Ginner: us Rosy [facility] Final Result documented in this encounter Visit Diagnoses Not on filedocumented in this encounter Additional Health Concerns Active Problems Noted Date Diagnosed Date OB Reminders 10/19/2024 documented as of this encounter Care Teams Tobacco Stripper Relationship Specialty Start Date End Date Unallocated, Noms Provider, [address] [place] [address] PCP - General Family Medicine 10/17/23 Amalia Bruce NP [address] [place] [address] PCP - Capo Wild 09/22/24 documented as of this encounter
--- OUTSIDE RECORDS SUMMARY | 2025-05-02 15:06 | XMS_ITS | Encounter Summary ---
Author Organization [facility] Address [address] [place] [address] Care Team Providers Care Vmware Systems Administrator Name Role Phone Unallocated, Noms Provider Primary Care Provi chrissy Amalia Bruce PIN GAME MACHINE INSPECTOR Unavailable Encounter Details Date Type Department Care Team (Late st Contact Info) Description 02/06/2025 Abstract CHIARA Johnson OBGYN [address] [facility] [address] [place] [address] Roscoe Diaz DO [address] [facility] [place] [address] Social History Tobacco Use Types Packs/Day Years [...] documented as of this encounter Care Teams Vmware Systems Administrator Relationship Specialty Start Date End Date Unallocated, Noms Provider, [address] [place] [address] PCP - General Family Medicine 10/17/23 Amalia Bruce, TONIA [address] [place] [address] PCP - Capo Wild 09/22/24 documented as of this encounter
--- OUTSIDE RECORDS SUMMARY | 2025-05-02 15:06 | XMS_ITS | Encounter Summary ---
Author Organization [facility] Address [address] [place] [address] Care Team Providers Care Casing Worker Name Role Phone Unallocated, Ebenezer Provider Primary Care Provi chrissy Amalia Bruce TARGET AIRCRAFT CONTROLLER Unavailable [phone] Encounter Details Date Type Department Care Team [...] documented as of this encounter Care Teams Casing Worker Relationship Specialty Start Date End Date Unallocated, Ebenezer ProviderMD [address] [place] [address] PCP - General Family Medicine 10/17/23 Amalia Bruce NP [address] [place] [id number] PCP - Capo Wild 09/22/24 documented as of this encounter
--- OUTSIDE RECORDS SUMMARY | 2025-05-02 15:06 | XMS_ITS | Encounter Summary ---
Author Organization [facility] tem Address [facility] [address] [place] [address] Care Team Providers Care Plastic Press Operator Name Role Phone Unavailable Primary Care Provider Unavailabl e Reason for Visit * Reason Comments Med Change Request Encounter Details Date Type Department Care Team (Late st Contact Info) Description 05/01/2025 Refill Maternal- Medicine at [facility] [address] [place] [address] Marilia Dillon, LITHOPONE MILL WORKER-GROUP UNDERWRITER [address] [place] [address] Gestational diabetes requiring insulin Social History Tobacco Use Types Packs/Day Years [...] encounter Visit Diagnoses Diagnosis Gestational diabetes requiring insulin Abnormal maternal glucose tolerance, complicating , childbirth, or the puerperium, unspecified as to episode of care documented in this encounter
--- OUTSIDE RECORDS SUMMARY | 2025-05-02 15:06 | XMS_ITS | Encounter Summary ---
Author Organization [facility] Address [address] [place] [address] Care Team Providers Care Health Facilities Surveyor Name Role Phone Dasha Lujan MD Primary Care Provider Sonia Dickerson CARDIOLOGY PHYSICIAN ASSISTANT.MANAGER ENGAGEMENT Unavailable Fatimah Geiger CARDIOLOGY PHYSICIAN ASSISTANT.MANAGER ENGAGEMENT Unavailable Ruth Richardson CARDIOLOGY PHYSICIAN ASSISTANT.MANAGER ENGAGEMENT Unavailable Berenice Rivas APRN.MANAGER ENGAGEMENT Unavailable Zarina Pope PA-C Unavailable Source Comments In the event this information is protected by the Federal Confidentiality of Alcohol and Drug AbusePatient Records regulations: The Federal rules restrict any use of the information to criminally investigate or prosecute any alcohol or drug abuse patient.[facility] Encounter Details Date Type Department Care Team (Late st Contact Info) Description 06/18/2024 Patient Msg Internal Medicine [address] [place] [address] Berenice Rivas APRN.MANAGER ENGAGEMENT [address] [place] [address] Appointment Request Social History Tobacco Use Types Packs/Day Years Used Date Smoking Tobacco: Never Smokeless Tobacco: Never Alcohol Use Standard Drinks/Week Comments Yes 1.3 (1 standard drink = 0.6 oz p ure alcohol) occ. drink [facility] Utilities Answer Date Recorded In the past 12 months has th e electric, gas, oil, or water [employer] threatened to shut off services in your [...] often do you attend chur ch or mormon services? Never 07/19/2023 Do you belong to any clubs o r organizations such as religion groups, unions, fraternal or athletic groups, or [...] Answer Date Recorded PHQ-2 score 0 07/22/2023 [facility] of Occupat ional Health - Occupational Stress [...] place to sleep or slept in a penitentiary (including now)? No 07/19/2023 Area Deprivation Index Answer Date Vern rded National Score (1-100), lower number is lower ri sk 90 07/19/2023 State Score (1-10), lower number is lower risk 8 07/19/2023 Data from: https://www.neighborhoodatlas.medicine.[facility].edu/. Last address used for calculation [...] on filedocumented in this encounter Care Teams Health Facilities Surveyor Relationship Specialty [place] [address] [place] [address] PCP - General Internal Medicine 01/11/22 Sonia Dickerson, CARDIOLOGY PHYSICIAN ASSISTANT.MANAGER ENGAGEMENT [address] [place] [address] Shuffle Board Operator Internal Medicine 07/30/24 08/29/24 Fatimah Geiger, CARDIOLOGY PHYSICIAN ASSISTANT.MANAGER ENGAGEMENT [address] [place] [address] Shuffle Board Operator Internal Medicine 07/30/24 Ruth Richardson, CARDIOLOGY PHYSICIAN ASSISTANT.MANAGER ENGAGEMENT [address] [place] [address] [facility] Internal Medicine 07/30/24 08/29/24 Berenice Rivas, CARDIOLOGY PHYSICIAN ASSISTANT.MANAGER ENGAGEMENT [address] [place] [address] [facility] Internal Medicine 07/30/24 08/29/24 Zarina Pope PA-C [address] [place] [address] Shuffle Board Operator Internal Medicine 07/30/24 08/29/24 documented as of this encounter
--- OUTSIDE RECORDS SUMMARY | 2025-05-02 15:06 | XMS_ITS | Encounter Summary ---
Author Organization [facility] Address [address] [place] [address] Care Team Providers Care Manager Environmental Affairs Name Role Phone Unallocated, Noms Provider Primary Care Provi chrissy Amalia Bruce TOBACCO HANGER Unavailable [phone] Encounter Details Date Type Department Care Team (Late st Contact Info) Description 04/24/2025 Bamboo flowsheet CHIARA Johnson OBGYN [address] [facility] [place] [address] oRscoe Diaz DO [address] [facility] [address] [place], [facility] Social History Tobacco Use Types Packs/Day [...] as of this encounter Care Teams Manager Environmental Affairs Relationship Specialty Start Date End Date Unallocated, Noms Provider, [address] [place] [address] PCP - General Family Medicine 10/17/23 Amalia Bruce, TONIA [address] [place] [address] PCP - Capo Wild 09/22/24 documented as of this encounter
--- OUTSIDE RECORDS SUMMARY | 2025-05-02 15:06 | XMS_ITS | Encounter Summary ---
Author Organization [facility] tem Address [facility] [address] [place] [address] Care Team Providers Care License And Permit Specialist Name Role Phone Unavailable Primary Care Provider Unavailabl e Encounter Details Date Type Department Care Team (Late st Contact Info) Description 02/07/2025 Orders Only Maternal- Medicine at [facility] [address] [place] [phone] Ref Prov, [place] [address] Social History Tobacco Use Types Packs/Day Years [...] ORDERABLES Madelaine l Result Performing Organization Address City/[facility] Co de Phone Number MANUALLY TRANSCRIBED RESULTS * Unlisted Genetic Test (02/07/2025 10:32 AM EDT) us Not In System Ref Prov LAB BLOOD ORDERABLES Madelaine l Result Performing Organization Address City/[facility] Co de Phone Number MANUALLY TRANSCRIBED RESULTS documented in this encounter Visit Diagnoses Not on filedocumented in this encounter
--- OUTSIDE RECORDS SUMMARY | 2025-05-02 15:06 | XMS_ITS | Clinical Summary ---
Author Organization [employer] s tem Address [facility] [place]-[id number] [address] [place] [address] Care Team Providers Care Finish Carpenter Name Role Phone Unavailable Primary Care Provider Unavailabl e Allergies No known active allergies Medications 25-IRON LCN-YQGLE-CEV ORAL Take 1 tablet by mouth in the morning. Active ondansetron ODT (ZOFRAN ODT) 4 mg disintegrating tablet Dissolve 1 tablet (4 mg total) on tongue every 8 (eight) hours as needed for nausea or vomiting. Active omeprazole (PriLOSEC) 20 mg capsule Take 1 capsule (20 mg total) by mouth in the morning. Active pen needle, diabetic (BD ULTRA-FINE NAZ PEN NEEDLE) 32 gauge x 5/32 needleIndications :Gestational diabetes requiring insulin Use to inject insulin nightly 100 each 2 03/12/20 25 Active aspirin 81 mg chewable tablet Chew 1 tablet (81 mg total) and swallow in the morning. Active insulin glargine (LANTUS SOLOSTAR U-100 INSULIN) 100 unit/mL (3 mL) insulin penIndications:Ge stational diabetes requiring insulin INJECT 8 UNITS EVERY EVENING PRIME WITH 2 UNITS 15 mL 3 05/01/20 25 Active insulin glargine (LANTUS SOLOSTAR U-100 INSULIN) 100 unit/mL (3 mL) insulin penIndications:Ge stational diabetes requiring insulin Inject 10 units every evening . Prime with two units. 15 mL 3 03/12/20 25 025 Discontinued insulin glargine (LANTUS SOLOSTAR U-100 INSULIN) 100 unit/mL (3 mL) insulin penIndications:Ge stational diabetes requiring insulin Inject 12 units every evening . Prime with two units. 15 mL 3 05/01/20 25 025 Discontinued(R eorder) insulin glargine (LANTUS SOLOSTAR U-100 INSULIN) 100 unit/mL (3 mL) insulin penIndications:Ge stational diabetes requiring insulin Inject 8 units every evening . Prime with two units. 15 mL 3 05/01/20 25 025 Discontinued Active Problems Problem Noted Date Diagnosed Date Gestational diabetes requiring insulin 5 Estimated Date of Delivery Comme nts Yes 05/19/2025 Based on last me nstrual period of 08/12/2024 Encounters Date Type Department Care Team Description 05/01/2025 8:00 AM EDT Telemedicine [facility]- [facility] at [facility] [place] [address] [place] [address] Marilia Dillon APRN-CNP Gestational diabetes requiring insulin (Primary Dx) 05/01/2025 Refill [facility] at [facility] [facility] [address] [place] [address] Marilia Dillon APRN-CNP Gestational diabetes requiring insulin 05/01/2025 Travel 04/23/2025 Telephone [facility]- Medicine at [facility] [address] [place] [address] Devika Pope LD 04/15/2025 Telephone [facility]- [facility] at [facility] [address] [place] [address] Beulah Miller RN 04/09/2025 Telephone [facility]- [facility] at [facility] [address] [place] [address] Devika Pope LD 04/01/2025 10:00 AM EDT Telemedicine Maternal- Medicine at [facility] [address] [place] [address] Daisha Morel PA-C Gestational diabetes requiring insulin (Primary Dx) 04/01/2025 Telephone Maternal- Medicine at [facility] [address] [place] [place] [address] Blanquita Toney, KARISSA 04/01/2025 Travel 04/01/2025 Telephone Maternal- Medicine at [facility] [address] [facility] [place] [address] Blanquita Toney, KARISSA 03/26/2025 Telephone [facility]- Medicine at [place] [address] [facility] [place] [address] Devika Pope LD 03/19/2025 Telephone [facility]- Medicine at [place] [address] [facility] [place] [address] Fatimah Ball LD 03/12/2025 1:30 PM EDT Office Visit Maternal- Medicine at [place] [address] [place] [address] Daisha Morel, JULIENNE Gestational diabetes mellitus (GDM) in second trimester, gestational diabetes method of control unspecified (Primary Dx); Gestational diabetes requiring insulin 03/12/2025 Travel 03/05/2025 Telephone Maternal- Medicine at [facility] [address] [place] [address] Devika Pope LD 02/26/2025 Telephone Maternal- Medicine at [place] [address] [place] [address] Devika Pope LD 02/14/2025 1:30 PM EDT Support Visit Maternal- Medicine at [place] [address] [place] [address] Hien Giles, RN Devika Pope, JOEL Gestational diabetes mellitus (GDM) in second trimester, gestational diabetes method of control unspecified (Primary Dx) 02/13/2025 Travel 02/07/2025 Orders Only Maternal- Medicine at [facility] [address] [place] [address] Ref Prov, Not In System 02/07/2025 Abstract Maternal- Medicine at [facility] [address] [place] [address] External, Scanning Provider from Last 3 Months [...] TRANSCRIBED RESULTS from Last 3 [place] [address]
--- OUTSIDE RECORDS SUMMARY | 2025-05-02 15:06 | XMS_ITS | Encounter Summary ---
Author Organization [facility] Address [address] [place] [address] Care Team Providers Care Battery Wrecker Operator Name Role Phone Dasha Lujan MD Primary Care Provider Sonia Dickerson MACHINIST.NEWSPAPER MANAGER Unavailable [phone] Fatimah Geiger MACHINIST.NEWSPAPER MANAGER Unavailable Ruth Richardson MACHINIST.NEWSPAPER MANAGER Unavailable Berenice Rivas APRN.NEWSPAPER MANAGER Unavailable Zarina Pope PA-C Unavailable Source Comments In the event this information is protected by the Federal Confidentiality of Alcohol and Drug AbusePatient Records regulations: The Federal rules restrict any use of the information to criminally investigate or prosecute any alcohol or drug abuse patient.[facility] Encounter Details Date Type Department Care Team (Late st Contact Info) Description 06/18/2024 Patient Msg Internal Medicine [address] [place] [address] Berenice Rivas APRN.NEWSPAPER MANAGER [address] [place] [address] Appointment Request Social History Tobacco Use Types Packs/Day Years Used Date Smoking Tobacco: Never Smokeless Tobacco: Never Alcohol Use Standard Drinks/Week Comments Yes 1.3 (1 standard drink = 0.6 oz p ure alcohol) occ. drink [facility] Utilities Answer Date Recorded In the past 12 months has th e electric, gas, oil, or water [employer] threatened to shut off services in your [...] often do you attend chur ch or worship services? Never 07/19/2023 Do you belong to [...] Answer Date Recorded PHQ-2 score 0 07/22/2023 [facility] [place] of Occupat ional Health - Occupational [...] risk 8 07/19/2023 Data from: https://www.neighborhoodatlas.medicine.[facility].edu/. Last address used for calculation [address] [...] on filedocumented in this encounter Care Teams Battery Wrecker Operator Relationship Specialty [place] [address] [place] [address] PCP - General Internal Medicine 01/11/22 Sonia Dickerson, MACHINIST.NEWSPAPER MANAGER [address] [place] [address] Election Supervisor Internal Medicine 07/30/24 08/29/24 Fatimah Geiger, MACHINIST.NEWSPAPER MANAGER [address] [place] [address] Election Supervisor Internal Medicine 07/30/24 Ruth Richardson, MACHINIST.NEWSPAPER MANAGER [address] [place] [address] [facility] Internal Medicine 07/30/24 08/29/24 Berenice Rivas, MACHINIST.NEWSPAPER MANAGER [address] [place] [address] [facility] Internal Medicine 07/30/24 08/29/24 Zarina Pope PA-C [address] [place] [address] Election Supervisor Internal Medicine 07/30/24 08/29/24 documented as of this encounter
--- OUTSIDE RECORDS SUMMARY | 2025-05-02 15:06 | XMS_ITS | Encounter Summary ---
Author Organization [facility] tem Address [facility]-[id number] [address] [place] [address] Care Team Providers Care Welding Supervisor Name Role Phone Unavailable Primary Care Provider Unavailabl e Encounter Details Date Type Department Care Team (Late st Contact Info) Description 04/23/2025 Telephone Maternal- Medicine at [facility] [address] [place] [address] Devika Pope, JOEL [address] [place] [address] Social History Tobacco Use Types Packs/Day Years [...]
--- OUTSIDE RECORDS SUMMARY | 2025-05-02 15:06 | XMS_ITS | Clinical Summary ---
Author Organization [facility] Address [address] [place] [address] Care Team Providers Care Student Truck Driver Name Role Phone Dasha Lujan MD Primary Care Provider [phone] Fatimah Geiger APRN.PRORATE CLERK Unavailable [phone] Allergies No known active allergies Medications Omeprazole Magnesium (ACID SPEECH COACH, OMEPRAZOLE,) 20 mg cpDR 04/16/2022 Active Active [...] 0.6 oz p ure alcohol) occ. drink [employer] Utilities Answer Date Recorded In the past 12 months has [employer], gas, oil, or water [employer] threatened to shut off services in your [...] any clubs o r organizations such as restoration groups, unions, fraternal or athletic groups, or [...] Date Recorded PHQ-2 score 0 06/29/2024 [employer] [place] of Occupat ional Health - Occupational Stress [...] place to sleep or slept in a mcc (including now)? No 07/19/2023 Area Deprivation Index [...] Hepatitis C Screening Discontinued Insurance Care Teams Student Truck Driver Relationship Specialty [place] [address] [place], [place] [id number] PCP - General Internal Medicine 01/11/22 Fatimah Geiger APRN.PRORATE CLERK [address] [place], [place] [id number] Assistant Import Manager Internal Medicine 07/30/24
--- OUTSIDE RECORDS SUMMARY | 2025-05-02 15:06 | XMS_ITS | Encounter Summary ---
Author Organization [facility] Address [address] [place] [address] Care Team Providers Care Hand Box Coverer Name Role Phone Unallocated, Noms Provider Primary Care Provi chrissy Amalia Bruce ASSISTANT MEDIA PLANNER Unavailable [phone] Encounter Details Date Type Department Care Team (Late st Contact Info) Description 01/09/2025 Abstract [facility] [address] [place] [address] Roscoe Diaz DO [address] [facility] [place] [address] Social History Tobacco Use Types Packs/Day Years [...] documented as of this encounter Care Teams Hand Box Coverer Relationship Specialty Start Date End Date Unallocated, Noms Provider, [address] [place] [address] PCP - General Family Medicine 10/17/23 Amalia Bruce, TONIA [address] [place] [address] PCP - Capo Wild 09/22/24 documented as of this encounter
--- OUTSIDE RECORDS SUMMARY | 2025-05-02 15:06 | XMS_ITS | Encounter Summary ---
Author Organization [facility] Address [address] [place] [address] Care Team Providers Care Pot Reliner Name Role Phone Dasha Lujan MD Primary Care Provider Sonia Dickerson GUNCOTTON PACKER.MATERIALS DEVELOPMENT ENGINEER Unavailable Fatimah Geiger GUNCOTTON PACKER.MATERIALS DEVELOPMENT ENGINEER Unavailable Ruth Richardson GUNCOTTON PACKER.MATERIALS DEVELOPMENT ENGINEER Unavailable Berenice Rivas APRN.MATERIALS DEVELOPMENT ENGINEER Unavailable Zarina Pope PA-C Unavailable Source Comments In the event this information is protected by the Federal Confidentiality of Alcohol and Drug AbusePatient Records regulations: The Federal rules restrict any use of the information to criminally investigate or prosecute any alcohol or drug abuse patient.[facility] Encounter Details Date Type Department Care Team (Late st Contact Info) Description 06/12/2024 Patient Msg Internal Medicine [address] [place] [address] Berenice Rivas APRN.MATERIALS DEVELOPMENT ENGINEER [address] [place] [address] Appointment Request Social History Tobacco Use Types Packs/Day Years Used Date Smoking Tobacco: Never Smokeless Tobacco: Never Alcohol Use Standard Drinks/Week Comments Yes 1.3 (1 standard drink = 0.6 oz p ure alcohol) occ. drink [facility] Utilities Answer Date Recorded In the past 12 months has th e electric, gas, oil, or water [employer] threatened to shut off services in your [...] often do you attend chur ch or mosque services? Never 07/19/2023 Do you belong to [...] Answer Date Recorded PHQ-2 score 0 07/22/2023 [facility] Occupat ional Health - Occupational [...] is lower risk 8 07/19/2023 Data from: https://www.neighborhoodatlas.medicine.[facility].edu/. Last address used for calculation [...] on filedocumented in this encounter Care Teams Pot Reliner Relationship Specialty [place] [address] [place] [address] PCP - General Internal Medicine 01/11/22 Sonia Dickerson, GUNCOTTON PACKER.MATERIALS DEVELOPMENT ENGINEER [address] [place] [address] Certified Physical Therapist Assistant Internal Medicine 07/30/24 08/29/24 Fatimah Geiger, GUNCOTTON PACKER.MATERIALS DEVELOPMENT ENGINEER [address] [place] [address] Certified Physical Therapist Assistant Internal Medicine 07/30/24 Ruth Richardson, GUNCOTTON PACKER.MATERIALS DEVELOPMENT ENGINEER [address] [place] [address] [facility] Internal Medicine 07/30/24 08/29/24 Berenice Rivas, GUNCOTTON PACKER.MATERIALS DEVELOPMENT ENGINEER [address] [place] [address] [facility] Internal Medicine 07/30/24 08/29/24 Zarina Pope PA-C [address] [place] [address] Certified Physical Therapist Assistant Internal Medicine 07/30/24 08/29/24 documented as of this encounter
--- OUTSIDE RECORDS SUMMARY | 2025-05-02 15:06 | XMS_ITS | Encounter Summary ---
Author Organization [facility] Address [address] [place] [address] Care Team Providers Care Community Service Manager Name Role Phone Unallocated, Noms Provider Primary Care Provi chrissy Amalia Bruce FARM MARKETER Unavailable [phone] Encounter Details Date Type Department Care Team (Late st Contact Info) Description 10/29/2024 Abstract [facility] [place] [facility] [address] [place] [address] Roscoe Diaz DO [address] [place] [address] Social History Tobacco Use Types Packs/Day Years [...] as of this encounter Care Teams Community Service Manager Relationship Specialty Start Date End Date Unallocated, Noms Provider, [address] [place] [address] PCP - General Family Medicine 10/17/23 Amalia Bruce, TONIA [address] [place] [address] PCP - Capo Wild 09/22/24 documented as of this encounter
--- OUTSIDE RECORDS SUMMARY | 2025-05-02 15:06 | XMS_ITS | Clinical Summary ---
Author Organization [facility] Address [address] [place] [address] Care Team Providers Care Telephone Sterilizer Name Role Phone Unallocated, [facility] Provider Primary Care Provi chrissy Amalia Bruce ADVERTISING CONSULTANT Unavailable [phone] Allergies No known active allergies Medications omeprazole OTC (PriLOSEC OTC) 20 MG EC tablet Take 20 mg by mouth in the morning. Take before meals. Do not crush, chew, or split.. Active Vit-Fe Fumarate-FA ( 19) 29-1 MG chewable tabletIndication s:, unspecified gestational age ([facility]) Chew 1 each Daily 30 tablet 11 5 Active Alcohol Swabs (Alcohol Prep Pad) 70 % padsIndications: Gestational diabetes mellitus (GDM), antepartum, gestational diabetes method of control unspecified ([facility]),Elevat ed glucose tolerance test Apply 1 Pad topically Daily Use four times daily to check FSBS. 150 each 3 5 Active Blood Glucose Monitoring Suppl (D-Care Glucometer) w/Device kitIndications:G estational diabetes mellitus (GDM), antepartum, gestational diabetes method of control unspecified ([facility]),Elevat ed glucose tolerance test 1 kit Daily Use four times daily to check FSBS. In the morning prior to breakfast & 1 hour after each meal for a total of 4times daily. 1 kit 5 02/05/20 26 Active insulin glargine (Lantus SoloStar) 100 UNIT/ML pen Inject 8 Units under the skin at bedtime Active aspirin 81 MG EC tablet Take 81 mg by mouth Daily Active Encounters Date Type Department Care Team Description 05/01/2025 9:20 AM [place] [address] Rosy Quiroz PA 37 weeks gestation of ([facility]); Third trimester ([facility]); H/O gastric sleeve; Insulin controlled gestational diabetes mellitus (GDM) during , antepartum ([facility]) 05/01/2025 Travel 04/29/2025 Clinisync Result Encounter [facility] External Department Unsolicited Rosy Quiroz PA 04/24/2025 11:30 AM [place] [address] Roscoe Diaz DO Third trimester ([facility]); 36 weeks gestation of ([facility]) 04/24/2025 [place] [address] Roscoe Diaz DO 04/23/2025 Clinisync Result Encounter [facility]OMS External Department Unsolicited Rosy Quiroz PA 04/17/2025 Travel 04/15/2025 Clinisync Result Encounter NOMS External Department Unsolicited Rosy Quiroz PA 04/10/2025 3:00 PM [place] [address] Roscoe Diaz DO 34 weeks gestation of ([facility]); Third trimester ([facility]); H/O gastric sleeve; Insulin controlled gestational diabetes mellitus (GDM) during , antepartum ([facility]) 04/10/2025 [place] [address] Roscoe Diaz DO 04/08/2025 10:00 AM EDT Ancillary Procedure [facility] [place] [place] [address] H/O gastric sleeve 04/08/2025 Clinisync Result Encounter [facility]OM[facility] External Department Unsolicited Rosy Quiroz PA 04/06/2025 Travel 04/05/2025 Telephone [facility] [address] [place] [address] Houstonbertha MonikaCOOPER 04/01/2025 Clinisync Result Encounter NOM[facility] External Department Unsolicited Rosy Quiroz PA 03/28/2025 Telephone [facility] [address] [place] [address] Jes Garza MA 03/27/2025 2:00 PM EDT Routine [facility] [address] [place] [address] Roscoe Diaz, Third trimester ([facility]); H/O gastric sleeve; Gestational diabetes mellitus (GDM), antepartum, gestational diabetes method of control unspecified ([facility]); 32 weeks gestation of ([facility]) 03/27/2025 Bamboo flowsheet [facility] [address] [place] [address] [place] [address] Roscoe Diaz DO 03/27/2025 Travel 03/13/2025 3:50 PM EDT Routine [facility] [address] [place] [address] Rosy Quiroz PA 30 weeks gestation of ([facility]); Third trimester ([facility]); H/O gastric sleeve; Gestational diabetes mellitus (GDM), antepartum, gestational diabetes method of control unspecified ([facility]) 03/13/2025 Bamboo flowsheet [facility] [address] [place] [address] Rosy Quiroz PA 03/10/2025 Travel 02/27/2025 1:40 PM [place] [address] Roscoe Diaz, 28 weeks gestation of ([facility]); Third trimester ([facility]); H/O gastric sleeve; Gestational diabetes mellitus (GDM), antepartum, gestational diabetes method of control unspecified ([facility]) 02/27/2025 1:00 PM EDT [place] [address] H/O gastric sleeve 02/26/2025 Travel 02/11/2025 11:30 AM [place] [address] Rosy Quiroz PA Second trimester ([facility]); 26 weeks gestation of ([facility]); H/O gastric sleeve 02/11/2025 Travel 02/06/2025 [place] [address] Roscoe Diaz, 02/04/2025 [place] [address] Monika Mesa LPN 02/04/2025 Results [place] [address] Monika Mesa, COOPER ALL CBC WITH AUTO DIFF, GLUCOSE 1 HOUR 02/01/2025 [place] [address] Ana Costello MA 02/01/2025 Clinisync Result Encounter NOMS External Department Unsolicited Roscoe Diaz, 01/30/2025 1:00 PM EDT Ancillary [place] [address] Encounter for follow-up ultrasound of anatomy ([facility]) from Last 3 Months Family History Medical [...] Pressure 110/60 05/01/2025 9:22 AM EDT Pulse 88 08/02/2024 3:58 PM EST Temperature 36 C (96.8 F) 08/02/2024 3:58 PM EST Respiratory Rate 12 07/25/2024 2:19 PM EST Oxygen Saturation 98% 08/02/2024 3:58 PM EST Inhaled Oxygen Concentration - - Weight 97.6 kg (215 lb 1.9 oz) 05/01/2025 9:22 A M EDT Height 160 cm (5' 3 ) 07/25/2024 2:19 PM EST Body Mass Index 38.11 07/25/2024 2:19 PM EST Plan of Treatment Health Maintenance [...] 9:27 AM EDT 37 weeks gestation of ([facility]) Third trimester ([facility]) US OB BPP W NON-STRESS 04/29/2025 3:39 PM EDT POCT URINALYSIS DIPSTICK Routine 04/24/2025 11:56 AM EDT Third trimester ([facility]) 36 weeks gestation of ([facility]) CULTURE, GROUP B STREP WITH SUSCEPTIBLITY Routine 04/24/2025 11:41 AM EDT Third trimester ([facility]) US OB BPP W NON-STRESS 04/23/2025 4:35 PM EDT US OB BPP W NON-STRESS 04/15/2025 4:16 PM EDT POCT URINALYSIS DIPSTICK Routine 04/10/2025 3:21 PM EDT 34 weeks gestation of ([facility]) Third trimester ([facility]) US OB BPP W NON-STRESS 04/08/2025 8:37 PM EDT US OB FOLLOW UP TRANSABDOMINAL APPROACH Routine 04/08/2025 10:27 AM EDT H/O gastric sleeve US OB BPP W NON-STRESS 04/01/2025 3:29 PM EDT POCT URINALYSIS DIPSTICK Routine 03/27/2025 2:49 PM EDT Third trimester ([facility]) H/O gastric sleeve Gestational diabetes mellitus (GDM), antepartum, gestational diabetes method of control unspecified ([facility]) 32 weeks gestation of ([facility]) POCT URINALYSIS DIPSTICK Routine 03/13/2025 3:46 PM EDT 30 weeks gestation of ([facility]) Third trimester ([facility]) POCT URINALYSIS DIPSTICK Routine 02/27/2025 2:04 PM EDT 28 weeks gestation of ([facility]) Third trimester ([facility]) US OB FOLLOW UP TRANSABDOMINAL APPROACH Routine 02/27/2025 1:40 PM EDT H/O gastric sleeve POCT URINALYSIS DIPSTICK Routine 02/11/2025 11:50 AM EDT Second trimester ([facility]) GLUCOSE 1 HOUR Routine 02/01/2025 9:28 AM EDT ALL CBC WITH AUTO DIFF Routine 9:28 AM EDT US OB LIMITED 1+ FETUSES Routine 01/30/2025 1:20 PM EDT Encounter for follow-up ultrasound of anatomy ([facility]) PAP SMEAR Routine 12/10/2024 12:00 AM EDT from Last 3 Months or Most Recently Relevant to Health Maintenance Results * (ABNORMAL) POCT urinalysis dipstick manually resulted (05/01/2025 9:27 AM EDT) Only the most recent of7 resultswithin the time period is included. Color, [...] Positive Urine 05/01/2025 9:27 AM EDT Rosy Oralia PA POINT OF CARE TEST ENTER/EDIT OR DERABLES Final Result * US OB BPP W NON-STRESS (04/29/2025 3:39 PM EDT) Only the most recent of5 resultswithin the time period is included. Anatomical Region Laterality Modality Other 04/29/2025 3:39 PM EDT Narrative 04/29/2025 3:41 [place] [address] Ultrasound Report Signed Patient: TRUDI ZAMARRIPA MR#: [id number] : 1990 Acct:[id number] Age/Sex: 34 / F ADM Date: 04/29/25 Loc: [facility] 250-[address]: Rosy Quiroz Ordering Physician: Rosy Quiroz Date of Service: 04/29/25 Procedure(s): US OB BPP w non-stress Accession Number(s): [id number] cc: Rosy Quiroz; Physician,Non-Staff M.D. [facility] [place] [address] Patient Name: TRUDI ZAMARRIPA MRN: [id number] date: 1990 Sex: F Assigned Patient Location: [facility] Current Patient Location: [facility] Accession/Order Number: [id number] Exam Date: 04/29/2025 15:05 Report Date: 04/29/2025 15:39 At the request of: ROSY QUIROZ Procedure: US OB BPP w non-stress Biophysical profile. Reason for exam: History of gastric sleeve surgery COMPARISON: 04/23/2025 TECHNIQUE: Transabdominal imaging of the gravid uterus was obtained. FINDINGS: The veneer grader reports a BPP of 8 out of 8. HELLEN is normal at 12.0 cm. heart rate 135 bpm. US/US OB BPP w non-stress IMPRESSION: BPP 8 out of 8. Impression dictated by: Cy Jensen Jr., D.O. 04/29/2025 3:39 PM Dictation Location: [place] [address] Electronically authenticated by: [id number] Y Date: 04/29/2025 15:39 Dictated By: Cy Jensen M.D. Signed By: 04/29/25 1541 DD/ 1539 TD/TT: Applications Programmer Analyst: Procedure Note Radiology, Radiologist, - 04/29/2025 [place] [address] Ultrasound Report Signed Patient: TRUDI ZAMARRIPA JMR#: [id number] : 1990Acct:[id number] Age/Sex: 34 / FADM Date: 04/29/25 Loc: [facility] 250-[address]: Rosy Quiroz Ordering Physician: Rosy Quiroz Date of Service: 04/29/25 Procedure(s): US OB BPP w non-stress Accession Number(s): [id number] cc: Rosy Quiroz; Physician,Non-Staff [place] [address] Patient Name: TRUDI ZAMARRIPA MRN: [id number] date: 1990 Sex: F Assigned Patient Location: [facility] Current Patient Location: [facility] Accession/Order Number: [id number] Exam Date: 04/29/2025 15:05 Report Date: 04/29/2025 15:39 At the request of: ROSY QUIROZ Procedure: US OB BPP w non-stress Biophysical profile. Reason for exam: History of gastric sleeve surgery COMPARISON: 04/23/2025 TECHNIQUE: Transabdominal imaging of the gravid uterus was obtained. FINDINGS: The veneer grader reports a BPP of 8 out of 8. HELLEN is normal at12.0 cm. heart rate 135 bpm. US/US OB BPP w non-stress IMPRESSION: BPP 8 out of 8. Impression dictated by: Cy Jensen Jr., D.O. 04/29/2025 3:39 PM Dictation Location: [place] [address] Electronically authenticated by: [id number] Y Date: 5:39 Dictated By: Cy Jensen M.D. Signed By:04/29/25 1541 DD/ 1539 TD/TT: Applications Programmer Analyst: Rosy [facility] Final Result * CULTURE, GROUP B STREP WITH SUSCEPTIBLITY (04/24/2025 11:41 AM EDT) Swab 04/24/2025 11:4 1 AM EDT Roscoe Diaz DO LAB BLOOD ORDERABLES Final Resul t EXTERNAL LAB * US OB follow up transabdominal approach [...] II, MD, PHD at 09-Apr-2025 07:59:18 AM [facility] Procedure Note Brittany Ferreira MD - [...] signed by BRITTANY FERREIRA II, MD, PHD [id number] 07:59:18 AM [facility] us Roscoe Joe DO IMG OB US PROCEDURES Final Resul t * (ABNORMAL) GLUCOSE 1 HOUR (02/01/2025 9:28 AM EDT) GLUCOSE 1 HOUR 198(H) <130 mg/dL [facility] 02/01/2025 9:28 AM EDT 02/01/2025 9:30 AM EDT Reji BROOKS - 02/01/2025 11:36 AM EDT us Roscoe Joe DO LAB BLOOD ORDERABLES Final Resul t [facility] * (ABNORMAL) ALL CBC WITH AUTO DIFF (02/01/2025 9:28 AM EDT) [facility] TB WBC 9.4 4.0 - 11.0 10 3/uL [...] AM EDT 02/01/2025 9:30 AM EDT Narrative [facility] - 02/01/2025 9:37 AM EDT us Roscoe Joe DO [facility]EC[facility] Final Result [facility] * US OB limited 1+ fetuses [...] II, MD, PHD at 01-Feb-2025 10:22:21 AM [facility] Procedure Note Brittany Ferreira MD - [...] signed by BRITTANY FERREIRA II, MD, PHD [id number] 10:22:21 AM [facility] us Roscoe Joe DO IMG OB US PROCEDURES Final Resul t * Pap Smear (12/10/2024 12:00 AM EDT) Swab Cervical swab / Unknown Joe Nurse [facility] Ob LAB CYTOLOGY ORDERABLES Final Result EXTERNAL LAB from Last 3 Months or Most Recently Relevant to Health Maintenance Additional Health Concerns Active Problems Noted Date Diagnosed Date OB Reminders 10/19/2024 Insurance [facility] Care Teams Telephone Sterilizer Relationship Specialty Start Date End Date Unallocated, Noms Provider, [address] [place], [place] [id number] PCP - General Family Medicine 10/17/23 Amalia Bruce, [address] [place] [address] PCP - [place] [employer] 09/22/24
[2025-05-02 15:08] VITALS: BP 123/58; PULSE 77
--- OUTSIDE RECORDS SUMMARY | 2025-05-02 16:30 | XMS_ITS | CCD ---
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 Role Phone Unavailable Primary Care [...] Unavailable Unallocated , Noms Provider Primary Care [facility] Teo DESK CLERKS SUPERVISOR, Edu N Unavailable Teo DESK CLERKS SUPERVISOR, Edu N Unavailable Unavailable Primary Care Provider UnavailDEVIKA Lima Attending Unavailable ROSCOE DIAZ R Referring Unavailable DAISHA BRISENO Attending Unavailable DARI DIAZY R Referring Unavailable DAISHA BRISENO Attending Unavailable JOE, ROSCOE R Referring Unavailable JOE, ROSCOE Attending Unavailable ROSY BARTON Attending Unavailable ROSCOE DIAZ Attending Unavailable ORALIAROSY MONTGOMERY Attending Unavailable ORALIA, ROSY Referring Unavailable JOEDARIY Attending Unavailable ORALIA, ROSY Attending Unavailable JOE, ROSCOE Attending Unavailable ROSCOE DIAZ Referring Unavailable ROSCOE DIAZ Attending Unavailable ROSCOE DIAZ Attending Unavailable SINA JAIN Attending Unavailable SINA JAIN Referring Unavailable EDU ALVAREZ Attending Unavailable Medications Current Medications Medication Drug Class(es) Dates Sig (Normalized) Sig (Original) aspirin 81 mg chewable tablet (20 sources) Platelet Aggregation Inhibitor, Nonsteroidal Anti-inflammatory Drug aspirin 81 mg chewable tablet Chew 1 tablet (81 mg total) and swallow in the morning. Active take 1 tablet by mouth once valeriano y aspirin 81 MG EC tablet Take 81 [...] pen injector (20 sources) Insulin Analog Start: 05-01-2025 End: 05-01-2025 insulin glargine (LANTUS SOLOSTAR U-100 INSULIN) 100 unit/mL (3 mL) insulin pen Indications: Gestational diabetes requiring insulin INJECT 8 UNITS EVERY EVENING PRIME WITH 2 UNITS 15 mL 3 05/01/2025 Active Start: 05-01-2025 End: 05-01-2025 insulin glargine (LANTUS CRISTO OSTAR U-100 INSULIN) 100 unit/mL (3 mL) insulin pen Indications: Gestational diabetes requiring insulin Inject 12 units every evening . Prime with two units. 15 mL 3 05/01/2025 05/01/2025 Discontinued (Reorder) Start: 03-12-2025 inject 8 [IU] by sub cutaneous injection at bedtime insulin glargine (Lantus SoloStar) 100 UNIT/ML pen Inject 8 Units under the skin at bedtime 03/12/2025 Active Start: 03-12-2025 End: 05-01-2025 insulin glargine (LANTUS CRISTO OSTAR U-100 INSULIN) 100 unit/mL (3 mL) insulin pen Indications: Gestational diabetes requiring insulin Inject 10 units every evening . Prime with two units. 15 mL 3 03/12/2025 05/01/2025 Discontinued Start: 03-12-2025 inject 10 [IU] by sullivan bcutaneous injection at bedtime insulin glargine (Lantus SoloStar) 100 UNIT/ML pen Inject 10 Units under the skin at bedtime 03/12/2025 Active isopropyl alcohol 0.7 ml/ml medicated pad (20 sources) Start: 02-04-2025 Alcohol Swabs (Alcohol Prep Pad) 70 % pads Indications: Gestational diabetes mellitus (GDM), antepartum, gestational diabetes method of control unspecified ([facility]) , Elevated glucose tolerance test Apply 1 Pad topically Daily Use four times daily to check FSBS. 150 each 3 02/04/2025 Active omeprazole 20 mg delayed release oral capsule (20 sources) Proton Pump Inhibitor Start: 04-16-2022 Omeprazole Magnesium (ACID DEMI CHEF, OMEPRAZOLE,) 20 mg cpDR 04/16/2022 Active take 1 capsule by mouth in the m orning omeprazole (PriLOSEC) 20 mg capsule Take 1 capsule (20 mg total) by mouth in the morning. Active take 1 tablet by mouth before me altime omeprazole OTC (PriLOSEC OTC) 20 MG EC tablet Take 20 mg by mouth in the morning. Take before meals. Do not crush, chew, or split.. Active ondansetron 4 mg disintegrating oral tablet (20 sources) Serotonin-3 Receptor Antagonist Start: 10-18-2024 End: [...] 30 days. BMI 29.76 polyethylene glycol 3350 66136 mg powder for oral solution (2 sources) Osmotic Laxative Start: End: take 17 g by mouth once polyethylene glycol, PEG, 3350 (Glycolax) 17 GM/SCOOP powder Indications: Colonoscopy Take 238 g by mouth 1 (one) time for 1 dose Take as detailed from clinic hand out for colonoscopy prep 238 g 07/25/2024 07/25/2024 Active 25-IRON IKU-JELNX-EFV ORAL (15 sources) take 1 tablet by mouth in the morning 25-IRON YJU-MWPUR-SOX ORAL Take 1 tablet by mouth in the morning. Active Vit-Fe Fumarate-FA ( 19) 29-1 MG chewable tablet (20 sources) Start: Vit-Fe Fumarate-FA ( 19) 29-1 MG chewable tablet Indications: , unspecified gestational age ([facility]) Chew 1 each Daily 30 [...] on above: Take 1 tablet by lucy two times a day for 2 days. [...] 06-29-2024 Episodic Other and delivery including normal (20 sources) ; Translations: [Encounter for supervision of [...] of ] 02-11-2025 Episodic Residual codes; unclassified (12 sources) History of sleeve gastrectomy; Translations: [Acquired [...] [36 weeks gestation of ] 04-24-2025 Episodic Residual codes; unclassified (2 sources) Gestation period, 37 weeks; Translations: [37 weeks gestation of ] 05-01-2025 Episodic Unclassified (20 sources) OB Reminders Onset: [...] Range Facility Urinalysis macro (dipstick) panel (U)on 05-01-2025 Bilirubin, UA Negative Negative - 4(70) +++ mg/dL [facility] Blood, UA Negative Negative - 50 Iraj/mcL [facility] Clarity, UA Clear [facility] Color, UA Yellow [facility] Glucose, UA Negative Negative - 1999(110) ++++ mg/dL [facility] Interpretation and review of laboratory results Abnormal [facility] Ketones, UA Negative Negative - 160(16) ++++ mg/dL [facility] Leukocytes, UA Positive Negative - 500+++ Mari/mcL [facility] Nitrite, UA Negative Negative - Positive [facility] pH, UA 6 5 - 9 [facility] Protein, UA Negative Negative - 2000(20) ++++ mg/dL [facility] Spec Grav, UA 1.01 1 - 1.03 [facility] Urobilinogen, UA 1.0 0.2 - 12 mg/dL [facility] US OB BPP W NON-STRESS on 04-29-[address] [address] Ultrasound Report Signed Patient: CARYL ZAMARRIPA MR#: [id number] : 1990 Acct:[id number] Age/Sex: 34 / F ADM Date: 04/29/25 Loc: [facility] 250-[address]: Rosy Barton Ordering Physician: Rosy Barton Date of Service: 04/29/25 Procedure(s): US OB BPP w non-stress Accession Number(s): [id number] cc: Rosy Barton; Physician,Non-Staff M.D. The [place] [id number] Patient Name: CARYL ZAMARRIPA MRN: [facility]:[id number] date: 1990 Sex: F Assigned Patient Location: [facility] Current Patient Location: [facility] Accession/Order Number: [id number] Exam Date: 04/29/2025 15:05 Report Date: 04/29/2025 15:39 At the request of: ROSY BARTON Procedure: US OB BPP w non-stress Biophysical profile. Reason for exam: History of gastric sleeve surgery COMPARISON: 04/23/2025 TECHNIQUE: Transabdominal imaging of the gravid uterus was obtained. FINDINGS: The customer success advocate reports a BPP of 8 out of 8. HELLEN is normal at 12.0 cm. heart rate 135 bpm. US/US OB BPP w non-stress IMPRESSION: BPP 8 out of 8. Impression dictated by: Cy Jensen Jr., D.O. 04/29/2025 3:39 PM Dictation Location: [place] [address] Electronically authenticated by: [id number] Y Date: 04/29/2025 15:39 Dictated By: Cy Jensen M.D. Signed By: 04/29/25 1541 DD/ 1539 TD/TT: Machine Grinder: [facility] Radiology, Radiologist, MD - 04/29/2025 The [place] [id number] Ultrasound Report Signed Patient: CARYL ZAMARRIPA MR#: [id number] : 1990 Acct:[id number] Age/Sex: 34 / F ADM Date: 04/29/25 Loc: [facility] 250-[address]: Rosy Barton Ordering Physician: Rosy Barton Date of Service: 04/29/25 Procedure(s): US OB BPP w non-stress Accession Number(s): [id number] cc: Rosy Barton; Physician,Non-Staff M.DCharisse The [place] [address] Patient Name: CARYL ZAMARRIPA MRN: [facility]:[id number] date: 1990 Sex: F Assigned Patient Location: [facility] Current Patient Location: [facility] Accession/Order Number: [id number] Exam Date: 04/29/2025 15:05 Report Date: 04/29/2025 15:39 At the request of: ROSY BARTON Procedure: US OB BPP w non-stress Biophysical profile. Reason for exam: History of gastric sleeve surgery COMPARISON: 04/23/2025 TECHNIQUE: Transabdominal imaging of the gravid uterus was obtained. FINDINGS: The customer success advocate reports a BPP of 8 out of 8. HELLEN is normal at 12.0 cm. heart rate 135 bpm. US/US OB BPP w non-stress IMPRESSION: BPP 8 out of 8. Impression dictated by: Cy Jensen Jr., D.O. 04/29/2025 3:39 PM Dictation Location: [place] [address] Electronically authenticated by: [id number] Y Date: 04/29/2025 15:39 Dictated By: Cy Jensen M.D. Signed By: 04/29/25 1541 DD/ 1539 TD/TT: Machine Grinder: [facility] Radiology Study observation (narrative) [facility] US OB BPP W NON-STRESS Ordered By: Radiologist Radiology on 04-29-2025 [facility] Work Phone: Urinalysis macro (dipstick) panel (U)on 04-24-2025 Bilirubin, UA Negative Negative - 4(70) +++ mg/dL [facility] Blood, UA Negative Negative - 50 Iraj/mcL [facility] Clarity, UA Clear [facility] Color, UA Yellow [facility] Glucose, UA Negative Negative - 1999(110) ++++ mg/dL [facility] Interpretation and review of laboratory results Normal [facility] Ketones, UA Negative Negative - 160(16) ++++ mg/dL [facility] Leukocytes, UA Negative Negative - 500+++ Mari/mcL [facility] Nitrite, UA Negative Negative - Positive [facility] pH, UA 6 5 - 9 [facility] Protein, UA Negative Negative - 1999(20) ++++ mg/dL [facility] Spec Grav, UA 1.02 1 - 1.03 [facility] Urobilinogen, UA 1.0 0.2 - 12 mg/dL [facility] US OB BPP W NON-STRESS on 04-23-2025 [place] [address] Ultrasound Report Signed Patient: CARYL ZAMARRIPA MR#: [id number] : 1990 Acct:[id number] Age/Sex: 34 / F ADM Date: 04/23/25 Loc: [facility] 250-[address]: Rosy Barton Ordering Physician: Rosy Barton Date of Service: 04/23/25 Procedure(s): US OB BPP w non-stress Accession Number(s): [id number] cc: Rosy Barton; Physician,Non-Staff M.DCharisse The [place] [address] Patient Name: CARYL ZAMARRIPA MRN: [facility]:[id number] date: 1990 Sex: F Assigned Patient Location: Current Patient Location: US Accession/Order Number: [id number] Exam Date: 04/23/2025 16:03 Report Date: 04/23/2025 16:35 At the request of: ROSY BARTON Procedure: US OB BPP w non-stress Biophysical profile. Reason for exam: History of gastric sleeve surgery COMPARISON: 04/15/2025 TECHNIQUE: Transabdominal imaging of the gravid uterus was obtained. FINDINGS: The customer success advocate reports a BPP of 8 out of 8. HELLEN is normal at 11.5 cm. heart rate 135 bpm. US/US OB BPP w non-stress IMPRESSION: BPP 8 out of 8. Impression dictated by: Cy Jensen Jr., D.O. 04/23/2025 4:35 PM Dictation Location: [place] [address] Electronically authenticated by: [id number] Y Date: 04/23/2025 16:35 Dictated By: Cy Jensen M.D. Signed By: 04/23/251636 DD/ 34 TD/TT: Machine Grinder: [facility] Radiology, Radiologist, MD - 04/23/2025 [place] [address] Ultrasound Report Signed Patient: CARYL ZAMARRIPA MR#: [id number] : 1990 Acct:[id number] Age/Sex: 34 / F ADM Date: 04/23/25 Loc: [place] [address]: Rosy Barton Ordering Physician: Rosy Barton Date of Service: 04/23/25 Procedure(s): US OB BPP w non-stress Accession Number(s): [id number] cc: Rosy Barton; Physician,Non-Staff Shimon The [place] [id number] Patient Name: CARYL ZAMARRIPA MRN: [facility]:[id number] date: 1990 Sex: F Assigned Patient Location: Current Patient Location: US Accession/Order Number: [id number] Exam Date: 04/23/2025 16:03 Report Date: 04/23/2025 16:35 At the request of: ROSY BARTON Procedure: US OB BPP w non-stress Biophysical profile. Reason for exam: History of gastric sleeve surgery COMPARISON: 04/15/2025 TECHNIQUE: Transabdominal imaging of the gravid uterus was obtained. FINDINGS: The customer success advocate reports a BPP of 8 out of 8. HELLEN is normal at 11.5 cm. heart rate 135 bpm. US/US OB BPP w non-stress IMPRESSION: BPP 8 out of 8. Impression dictated by: Cy Jensen Jr., D.O. 04/23/2025 4:35 PM Dictation Location: [place] [address] Electronically authenticated by: [id number] Y Date: 04/23/2025 16:35 Dictated By: Cy Jensen M.D. Signed By: 04/23/251636 DD/ 34 TD/TT: Machine Grinder: [facility] Radiology Study observation (narrative) [facility] US OB BPP W NON-STRESS Ordered By: Radiologist Radiology on 04-23-2025 [facility] Work Phone: US OB BPP W NON-STRESS on 04-15-2025 [place] [address] Ultrasound Report Signed Patient: CARYL ZAMARRIPA MR#: [id number] : 1990 Acct:[id number] Age/Sex: 34 / F ADM Date: 04/15/25 Loc: US Attending Dr: Rosy Barton Ordering Physician: Rosy Barton Date of Service: 04/15/25 Procedure(s): US OB BPP w non-stress Accession Number(s): [id number] cc: Rosy Barton; Physician,Non-Staff Shimon [place] [id number] Patient Name: CARYL ZAMARRIPA MRN: [id number] date: 1990 Sex: F Assigned Patient Location: US Current Patient Location: Accession/Order Number: [id number] Exam Date: 04/15/2025 15:09 Report Date: 04/15/2025 16:16 At the request of: ROSY BARTON Procedure: US OB BPP w non-stress Biophysical profile. Reason for exam: History of gastric sleeve surgery COMPARISON: 04/08/2025 TECHNIQUE: Transabdominal imaging of the gravid uterus was obtained. FINDINGS: The customer success advocate reports a BPP of 8 out of 8. HELLEN is normal at 17 cm. heart rate 136 bpm. US/US OB BPP w non-stress IMPRESSION: BPP 8 out of 8. Impression dictated by: Cy Jensen Jr., D.O. 04/15/2025 4:16 PM Dictation Location: [facility] Electronically authenticated by: [id number] Y Date: 04/15/2025 16:16 Dictated By: Cy Jensen M.D. Signed By: 04/15/25 1619 DD/ 15 TD/TT: Machine Grinder: [facility] Radiology, Radiologist, MD - 04/15/2025 [place] [address] Ultrasound Report Signed Patient: CARYL ZAMARRIPA MR#: [id number] : 1990 Acct:[id number] Age/Sex: 34 / F ADM Date: 04/15/25 Loc: US Attending Dr: Rosy Barton Ordering Physician: Rosy Barton Date of Service: 04/15/25 Procedure(s): US OB BPP w non-stress Accession Number(s): [id number] cc: Rosy Barton; Physician,Non-Staff Shimon The [place] [address] Patient Name: CARYL ZAMARRIPA MRN: [facility]:[id number] date: 1990 Sex: F Assigned Patient Location: Current Patient Location: Accession/Order Number: [id number] Exam Date: 04/15/2025 15:09 Report Date: 04/15/2025 16:16 At the request of: ROSY BARTON Procedure: US OB BPP w non-stress Biophysical profile. Reason for exam: History of gastric sleeve surgery COMPARISON: 04/08/2025 TECHNIQUE: Transabdominal imaging of the gravid uterus was obtained. FINDINGS: The customer success advocate reports a BPP of 8 out of 8. HELLEN is normal at 17 cm. heart rate 136 bpm. US/US OB BPP w non-stress IMPRESSION: BPP 8 out of 8. Impression dictated by: Cy Jensen Jr., D.O. 04/15/2025 4:16 PM Dictation Location: [facility] Electronically authenticated by: [id number] Y Date: 04/15/2025 16:16 Dictated By: Cy Jensen M.D. Signed By: 04/15/251618 DD/ 15 TD/TT: Machine Grinder: [facility] Radiology Study observation (narrative) [facility] US OB BPP W NON-STRESS Ordered By: Radiologist Radiology on 04-15-2025 [facility] Work Phone: Urinalysis macro (dipstick) panel (U)on 04-10-2025 Bilirubin, UA Negative Negative - 4(70) +++ mg/dL [facility] Blood, UA Negative Negative - 50 Iraj/mcL [facility] Clarity, UA Clear [facility] Color, UA Yellow [facility] Glucose, UA Negative Negative - 2000(110) ++++ mg/dL [facility] Interpretation and review of laboratory results Abnormal [facility] Ketones, UA Negative Negative - 160(16) ++++ mg/dL [facility] Leukocytes, UA Positive Negative - 500+++ Mari/mcL [facility] Nitrite, UA Negative Negative - Positive [facility] pH, UA 6 5 - 9 [facility] Protein, UA Positive Negative - 2000(20) ++++ mg/dL [facility] Spec Grav, UA 1.015 1 - 1.03 [facility] Urobilinogen, UA 1.0 0.2 - 12 mg/dL [facility] US OB BPP W NON-STRESS on 04-08-[address] [address] Ultrasound Report Signed Patient: CARYL ZAMARRIPA MR#: [id number] : 1990 Acct:[id number] Age/Sex: 34 / F ADM Date: 04/08/25 Loc: US Attending Dr: Rosy Barton Ordering Physician: Rosy Barton Date of Service: 04/08/25 Procedure(s): US OB BPP w non-stress Accession Number(s): [id number] cc: Rosy Barton; Physician,Non-Staff MMickey [address] [address] Patient Name: CARYL ZAMARRIPA MRN: [facility]:[id number] date: 1990 Sex: F Assigned Patient Location: [facility] Current Patient Location: Accession/Order Number: [id number] Exam Date: 04/08/2025 20:36 Report Date: 04/08/2025 [...] Briscoe M.D. 04/08/2025 8:37 PM Dictation Location: [place] [address] Electronically authenticated by: [id number] Y Date: 04/08/2025 20:37 Dictated By: Suraj Briscoe D.O. Signed By: 04/08/252038 DD/ 36 TD/TT: Machine Grinder: [facility] Radiology, Radiologist, - 04/08/[address] [address] Ultrasound Report Signed Patient: CARYL ZAMARRIPA MR#: [id number] : 1990 Acct:[id number] Age/Sex: 34 / F ADM Date: 04/08/25 Loc: US Attending Dr: Rosy Barton Ordering Physician: Rosy Barton Date of Service: 04/08/25 Procedure(s): US OB BPP w non-stress Accession Number(s): [id number] cc: Rosy Barton; Physician,Non-Staff Shimon The [address] [address] Patient Name: CARYL ZAMARRIPA MRN: [facility]:[id number] date: 1990 Sex: F Assigned Patient Location: [facility] Current Patient Location: Accession/Order Number: [id number] Exam Date: 04/08/2025 20:36 Report Date: 04/08/2025 [...] Briscoe M.D. 04/08/2025 8:37 PM Dictation Location: [facility] Electronically authenticated by: [id number] Y Date: 04/08/2025 20:37 Dictated By: Suraj Briscoe D.O. Signed By: 04/08/252038 DD/ 36 TD/TT: Machine Grinder: [facility] Radiology Study observation (narrative) [facility] US OB BPP W NON-STRESS Ordered By: Radiologist Radiology on 04-08-2025 [facility] [employer] Work Phone: US OB FOLLOW UP TRANSABDOMIN [...] II, MD, PHD at 09-Apr-2025 07:59:18 AM [facility] Normal Not Available Comment on above: Order Comment: US OB SCAN FOR GROWTH Estimated Date of Delivery: 05/19/25 Gestational Age as of 04/05/2025: 33w5d US OB BPP W NON-STRESS on 04-01-2025 [place] [address] Ultrasound Report Signed Patient: CARYL ZAMARRIPA MR#: [id number] : 1990 Acct:[id number] Age/Sex: 34 / F ADM Date: 04/01/25 Loc: [place] [address]: Rosy Barton Ordering Physician: Rosy Barton Date of Service: 04/01/25 Procedure(s): US OB BPP w non-stress Accession Number(s): [id number] cc: Rosy Barton; Physician,Non-Staff M.D. The [place] [id number] Patient Name: CARYL ZAMARRIPA MRN: [id number] date: 1990 Sex: F Assigned Patient Location: Current Patient Location: US Accession/Order Number: [id number] Exam Date: 04/01/2025 15:28 Report Date: 04/01/2025 15:29 At the request of: ROSY BARTON Procedure: US OB BPP w non-stress Biophysical profile. Reason for exam: History of gastric sleeve surgery COMPARISON: None TECHNIQUE: Transabdominal imaging of the gravid uterus was obtained. FINDINGS: The customer success advocate reports a BPP of 8 out of 8. HELLEN is normal at 10.8 cm. heart rate 125 bpm. US/US OB BPP w non-stress IMPRESSION: BPP 8 out of 8. Impression dictated by: Cy Jensen Jr. D.OCharisse 04/01/2025 3:29 PM Dictation Location: [facility] Electronically authenticated by: [id number] Y Date: 04/01/2025 15:29 Dictated By: Cy Jensen M.D. Signed By: 04/01/25 1531 DD/ 1529 TD/TT: Machine Grinder: [facility] Radiology, Radiologist, - 04/01/2025 [place] [address] Ultrasound Report Signed Patient: CARYL ZAMARRIPA MR#: [id number] : 1990 Acct:[id number] Age/Sex: 34 / F ADM Date: 04/01/25 Loc: [place] [address]: Rosy Braton Ordering Physician: Rosy Barton Date of Service: 04/01/25 Procedure(s): US OB BPP w non-stress Accession Number(s): [id number] cc: Rosy Barton; Physician,Non-Staff Shimon The [place] [address] Patient Name: CARYL ZAMARRIPA MRN: [facility]:[id number] date: 1990 Sex: F Assigned Patient Location: US Current Patient Location: US Accession/Order Number: [id number] Exam Date: 04/01/2025 15:28 Report Date: 04/01/2025 15:29 At the request of: ROSY BARTON Procedure: US OB BPP w non-stress Biophysical profile. Reason for exam: History of gastric sleeve surgery COMPARISON: None TECHNIQUE: Transabdominal imaging of the gravid uterus was obtained. FINDINGS: The customer success advocate reports a BPP of 8 out of 8. HELLEN is normal at 10.8 cm. heart rate 125 bpm. US/US OB BPP w non-stress IMPRESSION: BPP 8 out of 8. Impression dictated by: Cy Jensen Jr., D.O. 04/01/2025 3:29 PM Dictation Location: [facility] Electronically authenticated by: [id number] Y Date: 04/01/2025 15:29 Dictated By: Cy Jensen M.D. Signed By: 04/01/25 1531 DD/ 1529 TD/TT: Machine Grinder: [facility] Radiology Study observation (narrative) [facility] US OB BPP W NON-STRESS Ordered By: Radiologist Radiology on 04-01-2025 [facility] Work Phone: Urinalysis macro (dipstick) panel (U)on 03-27-2025 Bilirubin, UA Negative Negative - 4(70) +++ mg/dL [facility] Blood, UA Negative Negative - 50 Iraj/mcL [facility] Clarity, UA Clear [facility] Color, UA Yellow [facility] Glucose, UA Negative Negative - 1999(110) ++++ mg/dL [facility] Interpretation and review of laboratory results Abnormal [facility] Ketones, UA Positive Negative - 160(16) ++++ mg/dL [facility] Leukocytes, UA Few Negative - 500+++ Mari/mcL [facility] Nitrite, UA Negative Negative - Positive [facility] pH, UA 6 5 - 9 [facility] Protein, UA Few Negative - 1999(20) ++++ mg/dL [facility] Spec Grav, UA 1.03 1 - 1.03 [facility] Urobilinogen, UA 0.2 0.2 - 12 mg/dL [facility] Urinalysis macro (dipstick) panel (U)on 03-13-2025 Bilirubin, UA Negative Negative - 4(70) +++ mg/dL [facility] Blood, UA Negative Negative - 50 Iraj/mcL [facility] Clarity, UA Clear [facility] Color, UA Yellow [facility] Glucose, UA Negative Negative - 1999(110) ++++ mg/dL [facility] Interpretation and review of laboratory results Normal [facility] Ketones, UA Negative Negative - 160(16) ++++ mg/dL [facility] Leukocytes, UA Negative Negative - 500+++ Mari/mcL [facility] Nitrite, UA Negative Negative - Positive [facility] pH, UA 6 5 - 9 [facility] Protein, UA Negative Negative - 2000(20) ++++ mg/dL [facility] Spec Grav, UA 1.01 1 - 1.03 [facility] [facility] Urobilinogen, UA 1.0 0.2 - 12 mg/dL [facility] US OB FOLLOW UP TRANSABDOMIN AL [...] UA Negative Negative - 4(70) +++ mg/dL [facility] Blood, UA Negative Negative - 50 Iraj/mcL [facility] Clarity, UA Clear [facility] Color, UA Colorless [facility] Glucose, UA Negative Negative - 1999(110) ++++ mg/dL [facility] Interpretation and review of laboratory results Normal [facility] Ketones, UA Negative Negative - 160(16) ++++ mg/dL [facility] Leukocytes, UA Negative Negative - 500+++ Mari/mcL [facility] Nitrite, UA Negative Negative - Positive [facility] pH, UA 6 5 - 9 [facility] Protein, UA Negative Negative - 1999(20) ++++ mg/dL [facility] Spec Grav, UA 1.01 1 - 1.03 [facility] Urobilinogen, UA 1.0 0.2 - 12 mg/dL [facility] Glucose random or fasting- P OCTon 02-14-2025 External Glucose Fasting Or Random (Fbs) 88 [facility] Urinalysis macro (dipstick) panel (U)on 02-11-2025 Bilirubin, UA Negative Negative - 4(70) +++ mg/dL [facility] Blood, UA Negative Negative - 50 Iraj/mcL [facility] Clarity, UA Clear [facility] Color, UA Yellow [facility] Glucose, UA Positive Negative - 1999(110) ++++ mg/dL [facility] Comment on above: 500mg/dL Interpretation and review of laboratory results Abnormal [facility] Ketones, UA Negative Negative - 160(16) ++++ mg/dL [facility] Leukocytes, UA Negative Negative - 500+++ Mari/mcL [facility] Nitrite, UA Negative Negative - Positive [facility] pH, UA 6 5 - 9 [facility] Protein, UA Negative Negative - 1999(20) ++++ mg/dL [facility] Spec Grav, UA 1.005 1 - 1.03 [facility] Urobilinogen, UA 0.2 0.2 - 12 mg/dL [facility] ALL CBC WITH AUTO DIFFon BASOPHILS ABSOLUTE AUTO 0 N [facility] Basophils/100 WBC (Bld) 0.2 % 0.2 - 2.0 % [facility] Eosinophils/100 WBC (Bld) 1.1 % 0.9 - 7.0 % [facility] Erythrocyte distribution width (RBC) [Ratio] 13.6 % 11.0 - 15.0 % [facility] IMMATURE GRANULOCYTES ABS AUTO 0.04 High [facility] Immature granulocytes/100 WBC (Bld) 0.4 % 0.0 - 0.5 % [facility] Interpretation and review of laboratory results Abnormal [facility] LYMPHOCYTES ABSOLUTE AUTO 1.2 [facility] Lymphocytes/100 WBC (Bld) 12.5 % Low 20.5 - 60.0 % [facility] MCH (RBC) [Entitic mass] 33.9 pg 26. 7 - 34.0 pg [facility] MCHC (RBC) [Mass/Vol] 33.9 g/dL 29.9 - 35.2 g/dL [facility] MCV (RBC) [Entitic vol] 100 fL High 81.0 - 99.0 fL [facility] MONOCYTES ABSOLUTE AUTO 0.4 N [facility] Monocytes/100 WBC (Bld) 3.9 % 1.7 - 12.0 % [facility] NEUTROPHILS ABSOLUTE AUTO 7.7 High [facility] Neutrophils/100 WBC (Bld) 81.9 % High 43.0 - 75.0 % [facility] Platelet mean volume (Bld) [Entitic vol] 11 fL 9.5 - 13.5 fL [facility] TBH EO # 0.1 [facility] TBH PLT 172 [facility] TB RBC 3.39 Low [facility] WBC 9.4 [facility] Glucose 1h post 50g loadon 0 02-01-2025 Glucose, 1 hr PP 50GM dose 198 [facility] - Hematology and Cell countson 02-01-2025 Hematocrit (Bld) [Volume fraction] 33.9 % [facility] Hemoglobin (Bld) [Mass/Vol] 11.5 g/dL [facility] No Panel Informationon 02-01 [facility] US OB LIMITED 1+ FETUSESon [...] II, MD, PHD at 01-Feb-2025 10:22:21 AM [facility] Normal Not Available Comment on above: Order Comment: US OB INCOMPLETE ANATOMY Estimated Date of Delivery: 05/19/25 Gestational Age as of 01/07/2025: 21w1d Urinalysis macro (dipstick) panel (U)on 01-10-2025 Bilirubin, UA Negative Negative - 4(70) +++ mg/dL [facility] Blood, UA Negative Negative - 50 Iraj/mcL [facility] Clarity, UA Clear [facility] Color, UA Yellow [facility] Glucose, UA Negative Negative - 1999(110) ++++ mg/dL [facility] Interpretation and review of laboratory results Abnormal [facility] Ketones, UA Positive Negative - 160(16) ++++ mg/dL [facility] Leukocytes, UA Negative Negative - 500+++ Mari/mcL [facility] Nitrite, UA Negative Negative - Positive [facility] pH, UA 6 5 - 9 [facility] Protein, UA Negative Negative - 1999(20) ++++ mg/dL [facility] Spec Grav, UA 1.01 1 - 1.03 [facility] Urobilinogen, UA 0.2 0.2 - 12 mg/dL [facility] No Panel InformationOrdered By: Radiologist Radiology on 01-02-2025 [facility] Work Phone: No Panel Informationon 01-02 Radiology Study observation (narrative) [facility] US OB ANATOMYon 01-02-[address] [address] Ultrasound Report Signed Patient: CARYL ZAMARRIPA MR#: [id number] : 1990 Acct:[id number] Age/Sex: 34 / F ADM Date: 01/02/25 Loc: US Attending Dr: Roscoe Diaz D.O. Ordering Physician: Roscoe Diaz D.O. Date of Service: 01/02/25 Procedure(s): US OB anatomy Accession Number(s): [id number] cc: Roscoe Diaz D.O.; Physician,Non-Staff M.Bruce [address] [address] Patient Name: CARYL ZAMARRIPA MRN: [id number] date: 1990 Sex: F Assigned Patient Location: US Current Patient Location: US Accession/Order Number: [id number] Exam Date: 01/02/2025 22:40 Report Date: 01/02/2025 [...] Briscoe M.D. 01/02/2025 10:47 PM [facility] Electron[facility] authenticated by: [id number] Y Date: 01/02/2025 22:47 Dictated By: Suraj Briscoe D.O. Signed By: 01/02/25 6650 DD/ 46 TD/TT: Machine Grinder: [facility] Radiology, Radiologist, - 01/02/2025 [place] [address] Ultrasound Report Signed Patient: CARYL ZAMARRIPA MR#: [id number] : 1990 Acct:[id number] Age/Sex: 34 / F ADM Date: 01/02/25 Loc: US Attending Dr: Roscoe Diaz D.O. Ordering Physician: Roscoe Diaz D.O. Date of Service: 01/02/25 Procedure(s): US OB anatomy Accession Number(s): [id number] cc: Roscoe Diaz D.O.; Physician,Non-Staff MMickey [place] [id number] Patient Name: CARYL ZAMARRIPA MRN: [facility]:[id number] date: 1990 Sex: F Assigned Patient Location: US Current Patient Location: US Accession/Order Number: [id number] Exam Date: 01/02/2025 22:40 Report Date: 01/02/2025 [...] Briscoe M.D. 01/02/2025 10:47 PM Dictation Location: [place] [address] Electronically authenticated by: [id number] Y Date: 01/02/2025 22:47 Dictated By: Suraj Briscoe D.O. Signed By: 01/02/252249 DD/ 46 TD/TT: Machine Grinder: [facility] OB CERVICAL LENGTHon 12-20 [place] [address] Ultrasound Report Signed Patient: CARYL ZAMARRIPA MR#: [id number] : 1990 Acct:[id number] Age/Sex: 34 / F ADM Date: 01/02/25 Loc: US Attending Dr: Roscoe Diaz D.O. Ordering Physician: Roscoe Diaz D.O. Date of Service: 01/02/25 Procedure(s): US OB cervical length Accession Number(s): [id number] cc: Roscoe Diaz D.O.; Physician,Non-Staff hSimon [place] [id number] Patient Name: CARYL ZAMARRIPA MRN: [id number] date: 1990 Sex: F Assigned Patient Location: Current Patient Location: US Accession/Order Number: [id number] Exam Date: 01/02/2025 22:40 Report Date: 01/02/2025 [...] Briscoe M.D. 01/02/2025 10:47 PM Dictation Location: [place] [address] Electronically authenticated by: [id number] Y Date: 01/02/2025 22:47 Dictated By: Suraj Briscoe D.O. Signed By: 01/02/252249 DD/ 46 TD/TT: Machine Grinder: [facility] Radiology, Radiologist, - 01/02/2025 [place] [address] Ultrasound Report Signed Patient: CARYL ZAMARRIPA MR#: [id number] : 1990 Acct:[id number] Age/Sex: 34 / F ADM Date: 01/02/25 Loc: US Attending Dr: Roscoe Diaz D.O. Ordering Physician: Roscoe Diaz D.O. Date of Service: 01/02/25 Procedure(s): US OB cervical length Accession Number(s): [id number] cc: Roscoe Diaz D.O.; Physician,Non-Staff [place] [id number] Patient Name: CARYL ZAMARRIPA MRN: [facility]:[id number] date: 1990 Sex: F Assigned Patient Location: Current Patient Location: US Accession/Order Number: [id number] Exam Date: 01/02/2025 22:40 Report Date: 01/02/2025 [...] Briscoe M.D. 01/02/2025 10:47 PM Dictation Location: [place] [address] Electronically authenticated by: [id number] Y Date: 01/02/2025 22:47 Dictated By: Suraj Briscoe D.O. Signed By: 01/02/252249 DD/ 46 TD/TT: Machine Grinder: [facility] AFP Single Marker Scrn, Mate rnal, Serumon 12-31-2024 Ms Alpha-Fetoprotein Negative [facility] IGP,APTIMA HPV,AGE GDLNon AGE GDLN ACOG TESTING Note . [facility] Comment on above: TESTS RESULT FLAG UN ITS REF RANGE LAB Clinician Provided Cytology Information Source.............[employer] Other.............. No. of containers..01 ThinPrep Vial Age Algo ACOG Enedina... FLAG LEGEND: L-Low Normal,H-High Normal,LL-Alert Low,HH-Alert High <-Panic Low,>-Panic High,A-Abnormal,AA-Critical Abnormal Performed at: 01 =[address] [address] Rossy Odonnell MD, HPV APTIMA Negative Negative [facility] Comment on above: This nucleic acid am plification test detects fourteen high- risk HPV types (16,18,31,33,35,39,45,51,52,56,58,59,66,68) without differentiation. Performed at: =[address] [id number] Bioinformatician: Rossy Odonnell MD, Phone: [phone] Performed at: [address] [id number] Bioinformatician: Rossy Odonnell MD, Phone: [phone] IGP, APTIMA HPV, RFX 16/18,45 Note . [facility] Comment on above: TESTS RESULT FLAG UN ITS REF RANGE LAB DIAGNOSIS: 02 NEGATIVE FOR INTRAEPITHELIAL LESION OR MALIGNANCY. Specimen adequacy: 02 Satisfactory for evaluation. No endocervical component is identified. An endocervical component is not commonly seen in the patient. Performed by: 02 Cadence Lucero [employer] Processing [employer] Manager ([facility]) . 02 Note: Note 02 The [...] Low,>-Panic High,A-Abnormal,AA-Critical Abnormal Performed at: [address] [address] Rossy Odonnell MD, SPATULA-ALONE [facility] RECURRENT VAGINITIS (HTRX)on 12-11-2024 ATOPOBIUM VAGINAE 0 [facility] ATOPOBIUM VAGINAE Not detected [facility] BVAB 2,3 (BACTERIAL VAGINOSIS ASSOCIATED BACTERIA 2, 3); MOBILUNCUS SPP 0 [facility] BVAB 2,3 (BACTERIAL VAGINOSIS ASSOCIATED BACTERIA 2, 3); MOBILUNCUS SPP Not detected [facility] HAMILTON ALBICANS, PARAPSILOSIS, TROPICALIS 0 [facility] HAMILTON ALBICANS, PARAPSILOSIS, TROPICALIS Not detected [facility] GLABRATA 0 [facility] HAMILTON GLABRATA Not detected [facility] HAM[place] KRUSEI 0 [facility] HAMILTON KRUSEI Not detected [facility] CHLAMYDIA TRACHOMATIS 0 [facility] CHLAMYDIA TRACHOMATIS Not detected N [facility] GARDNERELLA VAGINALIS 0 [facility] GARDNERELLA VAGINALIS Not detected N [facility] MEGASPHAERA (TYPES 1, 2) 0 [facility] MEGASPHAERA (TYPES 1, 2) Not detected [facility] MYCOPLASMA GENITALIUM 0 [facility] MYCOPLASMA GENITALIUM Not detected N [facility] NEISSERIA GONORRHOEAE 0 [facility] NEISSERIA GONORRHOEAE Not detected N [facility] TRICHOMONAS VAGINALIS 0 [facility] TRICHOMONAS VAGINALIS Not detected N [facility] Urinalysis macro (dipstick) panel (U)on 12-10-2024 Bilirubin, UA Negative Negative - 4(70) +++ mg/dL [facility] Blood, UA Negative Negative - 50 Iraj/mcL [facility] Clarity, UA Clear [facility] Color, UA Yellow [facility] Glucose, UA Negative Negative - 2000(110) ++++ mg/dL [facility] Interpretation and review of laboratory results Normal [facility] Ketones, UA Negative Negative - 160(16) ++++ mg/dL [facility] Leukocytes, UA Trace Negative - 500+++ Mari/mcL [facility] Nitrite, UA Negative Negative - Positive [facility] pH, UA 6 5 - 9 [facility] Protein, UA Negative Negative - 2000(20) ++++ mg/dL [facility] Spec Grav, UA 1.01 1 - 1.03 [facility] Urobilinogen, UA 0.2 0.2 - 12 mg/dL [facility] Urinalysis macro (dipstick) panel (U)on 11-08-2024 Bilirubin, UA Negative Negative - 4(70) +++ mg/dL [facility] Blood, UA Negative Negative - 50 Iraj/mcL [facility] Clarity, UA Clear [facility] Color, UA Yellow [facility] Glucose, UA Negative Negative - 1999(110) ++++ mg/dL [facility] Interpretation and review of laboratory results Normal [facility] Ketones, UA Negative Negative - 160(16) ++++ mg/dL [facility] Leukocytes, UA Negative Negative - 500+++ Mari/mcL [facility] Nitrite, UA Negative Negative - Positive [facility] pH, UA 6 5 - 9 [facility] Protein, UA Negative Negative - 2000(20) ++++ mg/dL [facility] Spec Grav, UA 1.015 1 - 1.03 [facility] Urobilinogen, UA 0.2 0.2 - 12 mg/dL [facility] ALL CBC WITH AUTO DIFFon BASOPHILS ABSOLUTE AUTO 0 N [facility] Basophils/100 WBC (Bld) 0.4 % 0.2 - 2.0 % [facility] Eosinophils/100 WBC (Bld) 1.2 % 0.9 - 7.0 % [facility] Erythrocyte distribution width (RBC) [Ratio] 12.4 % 11.0 - 15.0 % [facility] IMMATURE GRANULOCYTES ABS AUTO 0.02 [facility] Immature granulocytes/100 WBC (Bld) 0.2 % 0.0 - 0.5 % [facility] Interpretation and review of laboratory results Abnormal [facility] LYMPHOCYTES ABSOLUTE AUTO 2.2 [facility] Lymphocytes/100 WBC (Bld) 27.2 % 20.5 - 60.0 % [facility] MCH (RBC) [Entitic mass] 33.5 pg 26. 7 - 34.0 pg [facility] MCHC (RBC) [Mass/Vol] 35.3 g/dL High 29.9 - 35.2 g/dL [facility] MCV (RBC) [Entitic vol] 94.9 fL 81.0 - 99.0 fL [facility] MONOCYTES ABSOLUTE AUTO 0.4 N [facility] Monocytes/100 WBC (Bld) 4.9 % 1.7 - 12.0 % [facility] NEUTROPHILS ABSOLUTE AUTO 5.4 [facility] Neutrophils/100 WBC (Bld) 66.1 % 43.0 - 75.0 % [facility] Platelet mean volume (Bld) [Entitic vol] 11.2 fL 9.5 - 13.5 fL [facility] TBH EO # 0.1 [facility] TBH PLT 169 [facility] TB RBC 3.55 Low [facility] TB WBC 8.2 [facility] CBC without diffon Platelets (Bld) [#/Vol] 169 10*3/uL [facility] Rbc Mcv (Fl) By Automated Count 94.9 [facility] Drug Screen, Urineon 025 Amphetamine/Methamphetam ine Negative [facility] Barbiturates Negative [facility] Benzodiazepines Negative [facility] Cocaine Metabolite Negative [facility] Methadone Negative [facility] Opiates Negative [facility] Oxycodone Negative [facility] Phencyclidine Negative [facility] Thc Marijuana, Urine Negative [facility] Free Cell DNAon 2024 Free Cell Dna LOW RISK [facility] HBV surface Ag IA Qlon 10-19 Hepatitis B Surface Antigen Negative [facility] HCV Ab IA Qlon 10-19-2024 HCV Ab Ql (S) Non-Reactive [facility] HIV 1+2 Ab+HIV1 p24 Ag IA Ql on 10-19-2024 HIV 1&2 AB/AG Non-Reactive [facility] Hemoglobin A1con 10-19-2024 HbA1c (Bld) [Mass fraction] 5.1 % 4.0 - 6.0 % [facility] - Hematology and Cell countson 10-19-2024 Hematocrit (Bld) [Volume fraction] 33.7 % [facility] Hemoglobin (Bld) [Mass/Vol] 11.9 g/dL [facility] No Panel Informationon 10-19 [facility] Rubella IGG immune statuson 10-19-2024 Rubella immune IgG IMMUNE [facility] T. pallidum IgG+IgM IA Ql (S )on 10-19-2024 Syphilis Non-Reactive [facility] Type and screenon 10-19-2024 Abo/Rh(D) Positive [facility] HCG ( test) Ql (U)o n 10-18-2024 Interpretation and review of laboratory results Abnormal [facility] Preg Test, Ur Positive Negative [facility] US OB TRANSVAGINALon 025 US OB [...] II, MD, PHD at 20-Oct-2024 07:21:51 AM [facility] Normal Not Available Comment on above: Order Comment: US OB TRANSVAGINAL No LMP recorded. Urinalysis macro (dipstick) panel (U)on 10-18-2024 Bilirubin, UA Negative Negative - 4(70) +++ mg/dL [facility] Blood, UA Negative Negative - 50 Iraj/mcL [facility] Clarity, UA Clear [facility] Color, UA Yellow [facility] Glucose, UA Negative Negative - 1999(110) ++++ mg/dL [facility] Interpretation and review of laboratory results Normal [facility] Ketones, UA Negative Negative - 160(16) ++++ mg/dL [facility] Leukocytes, UA Negative Negative - 500+++ Mari/mcL [facility] Nitrite, UA Negative Negative - Positive [facility] pH, UA 6 5 - 9 [facility] Protein, UA Negative Negative - 1999(20) ++++ mg/dL [facility] Spec Grav, UA 1.01 1 - 1.03 [facility] Urobilinogen, UA 1.0 0.2 - 12 mg/dL [facility] CNOVon 06-29-2024 CNOV Office Visit (INMAVN) ZAMARRIPACARYL GODINEZ ([id number]) 1990 F Date Time Provider Department 06/29/24 12:40 PM [facility] During your visit today, we recorded the following information about you: Pulse Blood pressure Weight 65/minute 101/68 75.8 kg Berenice Zepeda APRN.[employer] [employer] 06/29/2024 1:25 PM Signed Caryl Zamarripa is [...] - PHENTERMINE 37.5 MG TABLET Berenice Zepeda APRN.[employer] [employer] Allergies As of Date: 06/29/2024 (No Known [...] days. BMI 29.58kg/m2 - Omeprazole Magnesium (ACID DEMI CHEF, OMEPRAZOLE,) 20 mg cpDR Problem List As Of Date: 06/29/2024 (None) Prescriptions ordered this encounter Disp Refills Start End PHENTERMINE 37.5 MG TABLET 30 t* 0 06/29/2024 07/29/2024 Route: ORAL Sig: Take 1 tablet by mouth once daily for 30 days. BMI 29.58kg/m2 Encounter Status:Closed by BERENICE ZEPEDA on 06/29/24 [facility] CNOVon 08-23-2023 CNOV Office Visit (INMAVN) CARYL ZAMARRIPA ([id number]) 1990 F Date Time Provider Department 08/23/23 4:00 PM BERENICE ZEPEDA [facility] During your visit today, we recorded the following information about you: Pulse Blood pressure Weight Last Period 54/minute 121/77 77.6 kg 08/08/23 Berenice Zepeda APRN.[employer] 08/25/2023 12:23 PM Signed Caryl Zamarripa is [...] - PHENTERMINE 37.5 MG TABLET Berenice Zepeda APRN.[employer] Allergies As of Date: 08/23/2023 (No Known [...] for 2 days. - Omeprazole Magnesium (ACID DEMI CHEF, OMEPRAZOLE,) 20 mg cpDR Problem List As [...] Status:Closed by BERENICE ZEPEDA on 08/25/[address] [facility] CBC W Auto Differential pane l (Bld)on 07-26-2023 Basophils (Bld) [#/Vol] 0.03 10*3/uL Normal <0.11 [facility] Comment on above: Order Comment: Speci men Type: BLOOD SPECIMEN Ordering Facility: [facility] Address: [address] [place] [address] Performed By: #### 5 7021-8 #### [facility] CLIA [id number] [address] [place] [address] Basophils/100 WBC (Bld) 0.6 % Normal [facility] Comment on above: Order Comment: Speci men Type: BLOOD SPECIMEN Ordering Facility: [facility] Address: [address] [place] [address] Performed By: #### 5 7021-8 #### [facility] CLIA [id number] [address] [place] [address] Differential cell count method Nom (Bld) Auto Normal [facility] Comment on above: Order Comment: Speci men Type: BLOOD SPECIMEN Ordering Facility: [facility] Address: [address] [place] [address] Performed By: #### 5 7021-8 #### [facility] CLIA [id number] [address] [place] [address] Eosinophils (Bld) [#/Vol] 0.13 10*3/uL Normal <0.46 [facility] Comment on above: Order Comment: Speci men Type: BLOOD SPECIMEN Ordering Facility: [facility] Address: [address] [place] [address] Performed By: #### 5 7021-8 #### [facility] CLIA [id number] [address] [place] [address] Eosinophils/100 WBC (Bld) 2.6 % Normal [facility] Comment on above: Order Comment: Speci men Type: BLOOD SPECIMEN Ordering Facility: [facility] Address: [address] [place] [address] Performed By: #### 5 7021-8 #### [facility] CLIA [id number] [address] [place] [address] Erythrocyte distribution width (RBC) [Ratio] 12.1 % Normal 11.5-15.0 [facility] Comment on above: Order Comment: Speci men Type: BLOOD SPECIMEN Ordering Facility: [facility] Address: [address] [place] [address] Performed By: #### 5 7021-8 #### [facility] CLIA [id number] [address] [place] [address] Hematocrit (Bld) [Volume fraction] 37.0 % Normal 36.0-46.0 [facility] Comment on above: Order Comment: Speci men Type: BLOOD SPECIMEN Ordering Facility: [facility] Address: [address] [place] [address] Performed By: #### 5 7021-8 #### [facility] CLIA [id number] [address] [place] [address] Hemoglobin (Bld) [Mass/Vol] 12.6 g/dL Normal 11.5-15.5 [facility] Comment on above: Order Comment: Speci men Type: BLOOD SPECIMEN Ordering Facility: [facility] Address: [address] [place] [address] Performed By: #### 5 7021-8 #### [facility] CLIA [id number] [address] [place] [address] Immature granulocytes (Bld) [#/Vol] 10*3/uL Normal <0.10 [facility] Comment on above: Order Comment: Speci men Type: BLOOD SPECIMEN Ordering Facility: [facility] Address: [address] [place] [address] Performed By: #### 5 7021-8 #### [facility] CLIA [id number] [address] [place] [address] Immature granulocytes/100 WBC (Bld) 0.2 % Normal [facility] Comment on above: Order Comment: Speci men Type: BLOOD SPECIMEN Ordering Facility: [facility] Address: [address] [place] [address] Performed By: #### 5 7021-8 #### [facility] CLIA [id number] [address] [place] [address] Lymphocytes (Bld) [#/Vol] 1.57 10*3/uL Normal 1.00-4.00 [facility] Comment on above: Order Comment: Speci men Type: BLOOD SPECIMEN Ordering Facility: [facility] Address: [address] [place] [address] Performed By: #### 5 7021-8 #### [facility] CLIA [id number] [address] [place] [address] Lymphocytes/100 WBC (Bld) 31.2 % Normal [facility] Comment on above: Order Comment: Speci men Type: BLOOD SPECIMEN Ordering Facility: [facility] Address: [address] [place] [address] Performed By: #### 5 7021-8 #### [facility] CLIA [id number] [address] [place] [address] 02920 MCH (RBC) [Entitic mass] 32.2 pg Normal 26.0-34.0 [facility] Comment on above: Order Comment: Speci men Type: BLOOD SPECIMEN Ordering Facility: [facility] Address: [address] [place] [address] Performed By: #### 5 7021-8 #### [facility] CLIA [id number] [address] [place] [address] 62653 MCHC (RBC) [Mass/Vol] 34.1 g/dL Normal 30.5-36.0 [facility] Comment on above: Order Comment: Speci men Type: BLOOD SPECIMEN Ordering Facility: [facility] Address: [address] [place] [address] Performed By: #### 5 7021-8 #### [facility] CLIA [id number] [address] [place] [address] 34533 MCV (RBC) [Entitic vol] 94.6 fL Normal 80.0-100.0 [facility] Comment on above: Order Comment: Speci men Type: BLOOD SPECIMEN Ordering Facility: [facility] Address: [address] [place] [address] Performed By: #### 5 7021-8 #### [facility] CLIA [id number] [address] [place] [address] 28494 Monocytes (Bld) [#/Vol] 0.32 10*3/uL Normal <0.87 [facility] Comment on above: Order Comment: Speci men Type: BLOOD SPECIMEN Ordering Facility: [facility] Address: [address] [place] [address] Performed By: #### 5 7021-8 #### [facility] CLIA [id number] [address] [place] [address] 21438 Monocytes/100 WBC (Bld) 6.3 % Normal C [facility] Comment on above: Order Comment: Speci men Type: BLOOD SPECIMEN Ordering Facility: [facility] Address: [address] [place] [address] Performed By: #### 5 7021-8 #### [facility] CLIA [id number] [address] [place] [address] 29518 Neutrophils (Bld) [#/Vol] 2.98 10*3/uL Normal 1.45-7.50 [facility] Comment on above: Order Comment: Speci men Type: BLOOD SPECIMEN Ordering Facility: [facility] Address: [address] [place] [address] Performed By: #### 5 7021-8 #### [facility] CLIA [id number] [address] [place] [address] 19190 Neutrophils/100 WBC (Bld) 59.1 % Normal [facility] Comment on above: Order Comment: Speci men Type: BLOOD SPECIMEN Ordering Facility: [facility] Address: [address] [place] [address] Performed By: #### 5 7021-8 #### [facility] CLIA [id number] [address] [place] [address] Nucleated RBC (Bld) [#/Vol] 10*3/uL Normal <0.01 [facility] Comment on above: Order Comment: Speci men Type: BLOOD SPECIMEN Ordering Facility: [facility] Address: [address] [place] [address] Performed By: #### 5 7021-8 #### [facility] CLIA [id number] [address] [place] [address] 43865 Nucleated RBC/100 WBC (Bld) [Ratio] 0.0 /[address] [facility] Comment on above: Order Comment: Speci men Type: BLOOD SPECIMEN Ordering Facility: [facility] Address: [address] [place] [address] Performed By: #### 5 7021-8 #### [facility] CLIA [id number] [address] [place] [address] 67396 Platelet mean volume (Bld) [Entitic vol] 10.6 fL Normal 9.0-12.7 [facility] Comment on above: Order Comment: Speci men Type: BLOOD SPECIMEN Ordering Facility: [facility] Address: [address] [place] [address] Performed By: #### 5 7021-8 #### [facility] CLIA [id number] [address] [place] [address] 51566 Platelets (Bld) [#/Vol] 226 10*3/uL Normal 150-400 [facility] Comment on above: Order Comment: Speci men Type: BLOOD SPECIMEN Ordering Facility: [facility] Address: [address] [place] [address] Performed By: #### 5 7021-8 #### [facility] CLIA [id number] [address] [place] [address] 09215 RBC (Bld) [#/Vol] 3.91 10*6/uL Normal 3.90-5.20 [facility] Comment on above: Order Comment: Speci men Type: BLOOD SPECIMEN Ordering Facility: [facility] Address: [address] [place] [address] Performed By: #### 5 7021-8 #### [facility] CLIA [id number] [address] [place] [address] 75288 WBC (Bld) [#/Vol] 5.04 10*3/uL Normal 3.70-11.00 [facility] Comment on above: Order Comment: Speci men Type: BLOOD SPECIMEN Ordering Facility: [facility] Address: [address] [place] [address] Performed By: #### 5 7021-8 #### [facility] CLIA [id number] [address] [place] [address] 09170 Comprehensive metabolic 2000 panelon 07-26-2023 Albumin [Mass/Vol] 4.4 g/dL Normal 3.9-4.9 [facility] Comment on above: Order Comment: Speci men Type: BLOOD SPECIMEN Ordering Facility: [facility] Address: [address] [place] [address] Performed By: #### 2 4323-8 #### [facility] CLIA [id number] [address] [place] [address] 16752 ALP [Catalytic activity/Vol] 40 U/L Normal 34-123 [facility] Comment on above: Order Comment: Speci men Type: BLOOD SPECIMEN Ordering Facility: [facility] Address: [address] [place] [address] Performed By: #### 2 4323-8 #### [facility] CLIA [id number] [address] [place] [address] 16916 ALT [Catalytic activity/Vol] 5 U/L Low 7-38 [facility] Comment on above: Order Comment: Speci men Type: BLOOD SPECIMEN Ordering Facility: [facility] Address: [address] [place] [address] Performed By: #### 2 4323-8 #### [facility] CLIA [id number] [address] [place] [address] Anion gap [Moles/Vol] 8 mmol/L Low 9-18 [facility] Comment on above: Order Comment: Speci men Type: BLOOD SPECIMEN Ordering Facility: [facility] Address: [address] [place] [address] Performed By: #### 2 4323-8 #### [facility] CLIA [id number] [address] [place] [address] 80106 AST [Catalytic activity/Vol] 7 U/L Low 13-35 [facility] Comment on above: Order Comment: Speci men Type: BLOOD SPECIMEN Ordering Facility: [facility] Address: [address] [place] [address] Performed By: #### 2 4323-8 #### [facility] CLIA [id number] [address] [place] [address] 40063 Bilirubin [Mass/Vol] 0.6 mg/dL Normal 0.2-1.3 [facility] Comment on above: Order Comment: Speci men Type: BLOOD SPECIMEN Ordering Facility: [facility] Address: [address] [place] [address] Performed By: #### 2 4323-8 #### [facility] CLIA [id number] [address] [place] [address] 49724 Calcium [Mass/Vol] 9.5 mg/dL Normal 8.5-10.2 [facility] Comment on above: Order Comment: Speci men Type: BLOOD SPECIMEN Ordering Facility: [facility] Address: [address] [place] [address] Performed By: #### 2 4323-8 #### [facility] CLIA [id number] [address] [place] [address] 08683 Chloride [Moles/Vol] 105 mmol/L Normal 97-105 [facility] Comment on above: Order Comment: Speci men Type: BLOOD SPECIMEN Ordering Facility: [facility] Address: [address] [place] [address] Performed By: #### 2 4323-8 #### [facility] CLIA [id number] [address] [place] [address] 75752 CO2 [Moles/Vol] 27 mmol/L Normal 22-30 [facility] Comment on above: Order Comment: Speci men Type: BLOOD SPECIMEN Ordering Facility: [facility] Address: [address] [place] [address] Performed By: #### 2 4323-8 #### [facility] CLIA [id number] [address] [place] [address] 99116 Creatinine [Mass/Vol] 0.76 mg/dL Normal 0.58-0.96 [facility] Comment on above: Order Comment: Speci men Type: BLOOD SPECIMEN Ordering Facility: [facility] Address: [address] [place] [address] Performed By: #### 2 4323-8 #### [facility] CLIA [id number] [address] [place] [address] 52397 Creatinine and Glomerular filtration rate.predicted panel (S/P/Bld) 108 mL/min/1.73m??? Normal >=60 [facility] Comment on above: Order Comment: Micki men Type: BLOOD SPECIMEN Ordering Facility: [facility] Address: [address] [place] [address] Result Comment: Erma mated Glomerular Filtration Rate [...] GFR. Performed By: #### 2 4323-8 #### [facility] CLIA [id number] [address] [place] [address] 25227 Glucose [Mass/Vol] 93 mg/dL Normal 74-99 [facility] Comment on above: Order Comment: Micki adilene Type: BLOOD SPECIMEN Ordering Facility: [facility] Address: [address] [place] [address] Result Comment: The [place] Diabetes Association (ADA) provides guidance for cutoff [...] Standards of Medical Care in Diabetes 2016, [place] Diabetes Association. Diabetes Care. 2016.39(Suppl 1). Performed By: #### 2 4323-8 #### [facility] CLIA [id number] [address] [place] [address] Potassium [Moles/Vol] 4.2 mmol/L Normal 3.7-5.1 [facility] Comment on above: Order Comment: Speci men Type: BLOOD SPECIMEN Ordering Facility: [facility] Address: [address] [place] [address] Performed By: #### 2 4323-8 #### [facility] CLIA [id number] [address] [place] [address] 45501 Protein [Mass/Vol] 7.2 g/dL Normal 6.3-8.0 [facility] Comment on above: Order Comment: Speci men Type: BLOOD SPECIMEN Ordering Facility: [facility] Address: [address] [place] [address] Performed By: #### 2 4323-8 #### [facility] CLIA [id number] [address] [place] [address] 55833 Sodium [Moles/Vol] 140 mmol/L Normal 136-144 [facility] Comment on above: Order Comment: Speci men Type: BLOOD SPECIMEN Ordering Facility: [facility] Address: [address] [place] [address] Performed By: #### 2 4323-8 #### [facility] CLIA [id number] [address] [place] [address] 24914 Urea nitrogen [Mass/Vol] 11 mg/dL Normal 7-21 [facility] Comment on above: Order Comment: Speci men Type: BLOOD SPECIMEN Ordering Facility: [facility] Address: [address] [place] [address] Performed By: #### 2 4323-8 #### [facility] CLIA [id number] [address] [place] [address] 88710 HBV surface Ab Ql (S)on HBV surface Ab Qn (S) <8.00 Normal [facility] Comment on above: Order Comment: Specjocelyne men Type: BLOOD SPECIMEN Ordering Facility: [facility] Address: [address] [place] [address] Result Comment: <8 m IU/mL: No serological evidence of immunity to Hepatitis B Virus. >/= 8 to <12 mIU/mL: No serological evidence of immunity to Hepatitis B Virus. >/= 12 mIU/mL: Consistent with serological evidence of immunity to Hepatitis B Virus. Performed By: #### 2 2322-2 #### [facility] CLIA [id number] [address] [place] [address] [place] HBV surface Ab Ser Qlon HBV surface Ab Ql (S) Negative Normal [facility] Comment on above: Order Comment: Mary head Type: BLOOD SPECIMEN Ordering Facility: [facility] Address: [address] [place] [address] Result Comment: No s erological evidence of immunity to Hepatitis B Virus. Performed By: #### 2 2322-2 #### [facility] CLIA [id number] [address] [place] [address] [place] HbA1c (Bld)on 07-26-2023 Average glucose Estimated from glycated hemoglobin (Bld) [Mass/Vol] 94 mg/dL Normal [facility] Comment on above: Order Comment: Mary head Type: BLOOD SPECIMEN Ordering Facility: [facility] Address: [address] [place] [address] Result Comment: eAG: (Estimated average glucose) is a calculated value from HgbA1c and is sales representative wire rope of the average blood glucose level in the last 2-3 month period. Performed By: #### 5 5454-3 #### [facility] CLIA [id number] [address] [place] [address] [place] HbA1c (Bld) [Mass fraction] 4.9 % Normal 4.3-5.6 [facility] Comment on above: Order Comment: Mary head Type: BLOOD SPECIMEN Ordering Facility: [facility] Address: [address] [place] [address] Result Comment: [place] Diabetes Association guidelines indicate that patients with HgbA1c in the range 5.7-6.4% are at increased risk for development of diabetes, and intervention by lifestyle modification may be beneficial. HgbA1c greater or equal to 6.5% is considered diagnostic of diabetes. Performed By: #### 5 5454-3 #### [facility] CLIA [id number] [address] [place] [address] [place] Lipid 1996 panelon 3 Cholesterol [Mass/Vol] 172 mg/dL Normal <200 [facility] Comment on above: Order Comment: Mary head Type: BLOOD SPECIMEN Ordering Facility[facility] Address: [address] [place] [address] Result Comment: <200 mg/dL, Desirable 200-239 mg/dL, Borderline high >239 mg/dL, High Performed By: #### 2 4331-1 #### [facility] CLIA [id number] [address] [place] [address] [place] [facility] CLIA [id number] [address] [place] [address] Cholesterol in HDL [Mass/Vol] 58 mg/dL Normal >39 [facility] Comment on above: Order Comment: Mary head Type: BLOOD SPECIMEN Order[facility] Facility[facility] Address: [address] [place] [address] Result Comment: 40-5 9 mg/dL, Acceptable >59 mg/dL, High: Negative risk factor for coronary heart disease <40 mg/dL, Low: Positive risk factor for coronary heart disease Performed By: #### 2 4331-1 #### [facility] CLIA [id number] [address] [facility] CLIA [id number] [address] [place] [address] 93471 Cholesterol in LDL [Mass/Vol] 103 mg/dL High <100 [facility] Comment on above: Order Comment: Speci men Type: BLOOD SPECIMEN Ordering Facility[facility] Address: [address] [place] [address] Result Comment: <100 mg/dL, Optimal 100-129 mg/dL, Near optimal/above optimal 130-159 mg/dL, Borderline high 160-189 mg/dL, High >189 mg/dL, Very high Secondary prevention optimal LDL Cholesterol levels are recommended to be < 70 mg/dL Performed By: #### 2 4331-1 #### [facility] CLIA [id number] [address] [facility] CLIA [id number] [address] [place] [address] 48388 Cholesterol in LDL/Cholesterol in HDL [Mass ratio] 1.78 {ratio} Normal <2.54 [facility] Comment on above: Order Comment: Speci men Type: BLOOD SPECIMEN Ordering Facility[facility] Address: [address] [place] [address] Result Comment: Refe rula: 1. National Cholesterol Education Program ATP III Guideline At-A-Glance Quick Desk Reference: National Heart, Lung, and Blood [place]. National Institutes of Health. 2001: NIH Publication No. 01-3305. 2. An International Atherosclerosis Society position paper: global recommendations for the management of dyslipidemia: executive summary, Atherosclerosis. 2014: 232(2):410-413. Performed By: #### 2 4331-1 #### [facility] CLIA [id number] [address] [facility] CLIA [id number] [address] [place] [address] 88214 Cholesterol in VLDL [Mass/Vol] 11 mg/dL Normal <30 [facility] Comment on above: Order Comment: Speci men Type: BLOOD SPECIMEN Ordering Facility[facility] Address: [address] [place] [address] Performed By: #### 2 4331-1 #### [facility] CLIA [id number] [address] [place] [id number] [facility] CLIA [id number] [address] [place] [address] 46853 Cholesterol non HDL [Mass/Vol] 114 mg/dL Normal <130 [facility] Comment on above: Order Comment: Speci men Type: BLOOD SPECIMEN Ordering Facility[facility] Address: [address] [place] [address] Result Comment: <130 mg/dL, Optimal 130-159 mg/dL, Near optimal/above optimal 160-189 mg/dL, Borderline high 190-219 mg/dL, High >219 mg/dL, Very high Secondary prevention optimal non HDL Cholesterol levels are recommended to be <100 mg/dL Performed By: #### 2 4331-1 #### [facility] CLIA [id number] [address] [facility] CLIA [id number] [address] [place] [address] 17703 Cholesterol.total/Choles terol in HDL [Mass ratio] 2.97 {ratio} Normal <5.10 [facility] Comment on above: Order Comment: Speci men Type: BLOOD SPECIMEN Ordering Facility[facility] Address: [address] [place] [address] Performed By: #### 2 4331-1 #### [facility] CLIA [id number] [address] [place] [id number] [facility] CLIA [id number] [address] [place] [address] 58389 FASTING TIME [address] [facility] Comment on above: Order Comment: Speci men Type: BLOOD SPECIMEN Ordering Facility[facility] Address: [address] [place] [address] Performed By: #### 2 4331-1 #### [facility] CLIA [id number] [address] [facility] CLIA [id number] [address] [place] [address] 48988 Triglyceride [Mass/Vol] 53 mg/dL Normal <150 [facility] Comment on above: Order Comment: Speci men Type: BLOOD SPECIMEN Ordering Facility: [facility] Address: [address] [place] [address] Result Comment: <150 mg/dL, Normal 150-199 mg/dL, Borderline high 200-499 mg/dL, High >499 mg/dL, Very high Performed By: #### 2 4331-1 #### [facility] CLIA [id number] [address] [place] [id number] [facility] CLIA [id number] [address] [place] [address] 58229 CNOVon 07-21-2023 CNOV Office Visit (INMAVN) CARYL ZAMARRIPA ([id number]) 1990 F Date Time Provider Department 07/21/23 4:20 PM BERENICE ZEPEDA INRONNIE During your visit today, we recorded the following information about you: Pulse Blood pressure Weight Height 60/minute 112/74 80.1 kg 1.612 m Last Period 07/09/23 Berenice Zepeda APRN.CONE RUNNER 07/22/2023 10:16 AM Signed Caryl Zamarripa is a 32 year old female here today for review of established medical problems as well as comprehensive physical examination. Obesity S/p gastric sleeve surgery in 03/2022 at [facility] in [place] Down about 70lb, has reached plateau Gym 4 days per week with cardio (treadmill, elliptical) Maybe not enough water Tries to focus on more protein, lower carbs Last 10 Encounter Wt Readings: Date: Wt: 07/21/2023 80.1 kg (176 lb 8 oz) 07/06/2022 81.6 kg (180 lb) 01/15/2022 104.3 kg (230 lb) PLANNING AIDE in [facility] Implanted control HM needs: Hepatitis B Vaccine(1 of 3 - 3-dose series) Never done Depression Assessment Never done HPV Testing Never done PAST MEDICAL HISTORY Diagnosis Date GERD (gastroesophageal reflux disease) Prediabetes PAST SURGICAL HISTORY Procedure Laterality Date PT ED BARIATRIC AND METABOLIC gastric sleeve 03/2022 ALLERGIES Patient has no known allergies. MEDICATIONS Omeprazole Magnesium (ACID DEMI CHEF, OMEPRAZOLE,) 20 mg cpDR Phentermine HCl 37.5 [...] No history of dysuria, frequency or incontinence PLANNING AIDE: Negative for abnormal vaginal bleeding, abnormal vaginal [...] and symmetric. Sensation grossly intact. Breast/Pelvic: Per PLANNING AIDE ASSESSMENT/PLAN: 1. Routine adult health maintenance - ICD9: V70.0, ICD10: Z00.00 (primary diagnosis) - Counseled on healthy diet and regular exercise - Calcium intake with supplements or by diet of 1000 mg/day for under 50, 9432-0619 mg/day for 50+ - Discussed need and benefit for weight loss. BMI 30.81 kg/(m2) - HGB A1C - COMP METABOLIC PANEL - LIPID PANEL BASIC - CBC + DIFF 2. IFG (impaired fasting glucose) - ICD9: 790.21, ICD10: (more content not included)... Normal [facility] Basophils Auto (Bld) [#/Vol] Ordered By: Reena Breaux on 10-11-2022 Basophils (Bld) [#/Vol] 0.0 10*3/uL 0.0-0.2 [facility] Basophils/100 WBC Auto (Bld) Ordered By: Reena Breaux on 10-11-2022 Basophils/100 WBC (Bld) 0.7 % . [facility] Body fluid albumin measureme nt (mass/volume)Ordered By: Reena Breaux on 10-11-2022 Albumin (Body fld) [Mass/Vol] 4.0 g/dL 3.2-5.[address] [facility] [address] biopsyOrdered By: Reena malhotra on 10-11-2022 Transferrin [Mass/Vol] 206 mg/dL 180-380 [facility] Complete Blood Count Auto Di ffon 10-11-2022 Basophils (Bld) [#/Vol] 0.0 10*3/uL Normal 0.0-0.2 [facility] Comment on above: Result Comment: PERF ORMED BY: [place] [address] PATHOLOGIST HAT CLEANER AMANDA CALLE M.D. Performed By: #### P HOS, [id number], CMP, CBC, [id number], FE PRO, MG #### [facility] [address] [place] [address] #### VITB1 #### [facility] , Basophils/100 WBC (Bld) 0.7 % Normal . [facility] Comment on above: Performed By: #### P HOS, [id number], CMP, CBC, [id number], FE PRO, MG #### [facility] [address] [place] [address] #### VITB1 #### [facility] , Eosinophils (Bld) [#/Vol] 0.1 10*3/uL Normal 0.0-0.45 [facility] Comment on above: Performed By: #### P HOS, [id number], CMP, CBC, [id number], FE PRO, MG #### [facility] [address] [place] [address] [place] #### VITB1 #### [facility] , Eosinophils/100 WBC (Bld) 1.7 % Normal . [facility] Comment on above: Performed By: #### P HOS, [id number], CMP, CBC, [id number], FE PRO, MG #### [facility] [address] [place] [address] #### VITB1 #### [facility] , Erythrocyte distribution width (RBC) [Ratio] 12.9 % Normal 11.9-15.3 [facility] Comment on above: Performed By: #### P HOS, [id number], CMP, CBC, [id number], FE PRO, MG #### [facility] [address] [place] [address] #### VITB1 #### [facility] , Hematocrit (Bld) [Volume fraction] 39.1 % Normal 34.0-46.4 [facility] Comment on above: Performed By: #### P HOS, [id number], CMP, CBC, [id number], FE PRO, MG #### [facility] [address] [place] [address] #### VITB1 #### [facility] , Hemoglobin (Bld) [Mass/Vol] 13.1 g/dL Normal 11.8-15.4 [facility] Comment on above: Performed By: #### P HOS, [id number], CMP, CBC, [id number], FE PRO, MG #### [facility] [address] [place] [address] [place] #### VITB1 #### [facility] , Lymphocytes (Bld) [#/Vol] 2.7 10*3/uL Normal 1.00-4.8 [facility] Comment on above: Performed By: #### P HOS, [id number], CMP, CBC, [id number], FE PRO, MG #### [place] [address] [place] #### VITB1 #### [facility] , Lymphocytes/100 WBC (Bld) 39.8 % Normal . [facility] Comment on above: Performed By: #### P HOS, [id number], CMP, CBC, [id number], FE PRO, MG #### [facility] [address] [place] [address] #### VITB1 #### [facility] , MCH (RBC) [Entitic mass] 31.9 pg Normal 24.7-34.3 [facility] Comment on above: Performed By: #### P HOS, [id number], CMP, CBC, [id number], FE PRO, MG #### [facility] [address] [place] [address] #### VITB1 #### [facility] , MCV (RBC) [Entitic vol] 95.3 fL Normal 80-100 [facility] Comment on above: Performed By: #### P HOS, [id number], CMP, CBC, [id number], FE PRO, MG #### [facility] [address] [place] [address] #### VITB1 #### [facility] , Mean Corpuscular HGB Conc 33.5 g/dL Normal 32.0-35.0 [facility] Comment on above: Performed By: #### P HOS, [id number], CMP, CBC, [id number], FE PRO, MG #### [facility] [address] [place] [address] #### VITB1 #### [facility] , Monocytes (Bld) [#/Vol] 0.3 10*3/uL Normal 0.0-0.8 [facility] Comment on above: Performed By: #### P HOS, [id number], CMP, CBC, [id number], FE PRO, MG #### [facility] [address] [place] [address] [place] #### VITB1 #### [facility] , Monocytes/100 WBC (Bld) 5.1 % Normal . [facility] Comment on above: Performed By: #### P HOS, [id number], CMP, CBC, [id number], FE PRO, MG #### [facility] [address] [place] [address] #### VITB1 #### [facility] , Neutrophils (Bld) [#/Vol] 3.6 10*3/uL Normal 1.8-7.7 [facility] Comment on above: Performed By: #### P HOS, [id number], CMP, CBC, [id number], FE PRO, MG #### [facility] [address] [place] [address] #### VITB1 #### [facility] , Neutrophils/100 WBC (Bld) 52.7 % Normal . [facility] Comment on above: Performed By: #### P HOS, [id number], CMP, CBC, [id number], FE PRO, MG #### [facility] [address] [place] [address] #### VITB1 #### [facility] , NRBC% 0.0 /100{WBC} Normal 0-0.5 [facility] [facility] Comment on above: Performed By: #### P HOS, [id number], CMP, CBC, [id number], FE PRO, MG #### [facility] [address] [place] [address] [place] #### VITB1 #### [facility] , Platelet mean volume (Bld) [Entitic vol] 9.8 fL Normal 6.3-10.7 [facility] Comment on above: Performed By: #### P HOS, [id number], CMP, CBC, [id number], FE PRO, MG #### [facility] [address] [place] [address] [place] #### VITB1 #### [facility] , Platelets (Bld) [#/Vol] 226 10*3/uL Normal 150-450 [facility] Comment on above: Performed By: #### P HOS, [id number], CMP, CBC, [id number], FE PRO, MG #### [facility] [address] [place] [address] #### VITB1 #### [facility] , RBC (Bld) [#/Vol] 4.11 10*6/uL Normal 3.60-5.[address] [facility] Comment on above: Performed By: #### P HOS, [id number], CMP, CBC, [id number], FE PRO, MG #### [facility] [address] [place] [address] #### VITB1 #### [facility] , WBC (Bld) [#/Vol] 6.8 10*3/uL Normal 3.8-11.6 [facility] Comment on above: Performed By: #### P HOS, [id number], CMP, CBC, [id number], FE PRO, MG #### [facility] [address] [place] [address] #### VITB1 #### [facility] , Comprehensive Metabolic Pane nicole 10-11-2022 Albumin [Mass/Vol] 4.0 g/dL Normal 3.2-5.5 [facility] Comment on above: Performed By: #### P HOS, [id number], CMP, CBC, [id number], FE PRO, MG #### [facility] [address] [place] [address] [place] #### VITB1 #### [facility] , Albumin/Globulin [Mass ratio] 1.4 {ratio} Normal [facility] Comment on above: Performed By: #### P HOS, [id number], CMP, CBC, [id number], FE PRO, MG #### [facility] [address] [place] [address] [place] #### VITB1 #### [facility] , ALP [Catalytic activity/Vol] 36 U/L Normal 32-92 [facility] Comment on above: Performed By: #### P HOS, [id number], CMP, CBC, [id number], FE PRO, MG #### [facility] [address] [place] [address] #### VITB1 #### [facility] , ALT [Catalytic activity/Vol] 12 U/L Normal 10-60 [facility] Comment on above: Performed By: #### P HOS, [id number], CMP, CBC, [id number], FE PRO, MG #### [facility] [address] [place] [address] #### VITB1 #### [facility] , Anion gap [Moles/Vol] 11.6 mmol/L Normal 6.0-15.0 [facility] Comment on above: Performed By: #### P HOS, [id number], CMP, CBC, [id number], FE PRO, MG #### [facility] [address] [place] [address] #### VITB1 #### [facility] , AST [Catalytic activity/Vol] 11 U/L Normal 10-42 [facility] Comment on above: Performed By: #### P HOS, [id number], CMP, CBC, [id number], FE PRO, MG #### [facility] [address] [place] [address] [place] #### VITB1 #### [facility] , Bilirubin [Mass/Vol] 0.3 mg/dL Normal 0.3-1.2 [facility] Comment on above: Performed By: #### P HOS, [id number], CMP, CBC, [id number], FE PRO, MG #### [facility] [address] [place] [address] #### VITB1 #### [facility] , Calcium [Mass/Vol] 9.3 mg/dL Normal 8.2-10.2 [facility] Comment on above: Performed By: #### P HOS, [id number], CMP, CBC, [id number], FE PRO, MG #### [facility] [address] [place] [address] #### VITB1 #### [facility] , Chloride [Moles/Vol] 103 mmol/L Normal 95-114 [facility] Comment on above: Performed By: #### P HOS, [id number], CMP, CBC, [id number], FE PRO, MG #### [facility] [address] [place] [address] #### VITB1 #### [facility] , CO2 [Moles/Vol] 26.4 mmol/L Normal 22.0-30.0 [facility] Comment on above: Performed By: #### P HOS, [id number], CMP, CBC, [id number], FE PRO, MG #### [facility] [address] [place] [address] #### VITB1 #### [facility] , Creatinine [Mass/Vol] 0.70 mg/dL Normal 0.44-1.03 [facility] Comment on above: Performed By: #### P HOS, [id number], CMP, CBC, [id number], FE PRO, MG #### [facility] [address] [place] [address] [place] #### VITB1 #### [facility] , Estimated GFR ( Christiano > 60 Normal [facility] Comment on above: Result Comment: GFR estimated reference range: According to KDOQI guidelines, <60 ml/min/1.73m2 is sufficient to diagnose a patient with chronic kidney disease. Performed By: #### P HOS, [id number], CMP, CBC, [id number], FE PRO, MG #### [facility] [address] [place] [address] [place] #### VITB1 #### [facility] , Estimated GFR (Non- Am > 60 Normal [facility] Comment on above: Performed By: #### P HOS, [id number], CMP, CBC, [id number], FE PRO, MG #### [facility] [address] [place] [address] #### VITB1 #### [facility] , Globulin (S) [Mass/Vol] 2.8 g/dL Normal [facility] Comment on above: Performed By: #### P HOS, [id number], CMP, CBC, [id number], FE PRO, MG #### [facility] [address] [place] [address] #### VITB1 #### [facility] , Glucose [Mass/Vol] 85 mg/dL Normal 70-100 [facility] Comment on above: Result Comment: [facility] Glucose Reference Range is dependent on time and content of last meal. Glucose of more than 200 mg/dL in a nonstressed, ambulatory subject supports the diagnosis of Diabetes Mellitus. ADA recommended reference range Performed By: #### P HOS, [id number], CMP, CBC, [id number], FE PRO, MG #### [facility] [address] [place] [address] #### VITB1 #### [facility] , Potassium [Moles/Vol] 4.0 mmol/L Normal 3.5-5.1 [facility] Comment on above: Performed By: #### P HOS, [id number], CMP, CBC, [id number], FE PRO, MG #### [facility] [address] [place] [address] [place] #### VITB1 #### [facility] , Protein [Mass/Vol] 6.8 g/dL Normal 6.1-7.9 [facility] Comment on above: Performed By: #### P HOS, [id number], CMP, CBC, [id number], FE PRO, MG #### [facility] [address] [place] [address] [place] #### VITB1 #### [facility] , Sodium [Moles/Vol] 137 mmol/L Normal 136-146 [facility] Comment on above: Performed By: #### P HOS, [id number], CMP, CBC, [id number], FE PRO, MG #### [facility] [address] [place] [address] [place] #### VITB1 #### [facility] , Urea nitrogen [Mass/Vol] 11 mg/dL Normal 9-23 [facility] Comment on above: Performed By: #### P HOS, [id number], CMP, CBC, [id number], FE PRO, MG #### [facility] [address] [place] [address] [place] #### VITB1 #### [facility] , Creatinine and Glomerular fi ltration rate.predicted panel (S/P/Bld)Ordered By: Reena Breaux on 10-11-2022 Creatinine [Mass/Vol] 0.70 mg/dL 0.44-1.03 [facility] Eosinophils Auto (Bld) [#/Vo l]Ordered By: Reena Breaux on 10-11-2022 Eosinophils (Bld) [#/Vol] 0.1 10*3/uL 0.0-0.45 [facility] Eosinophils/100 WBC Auto (Bl d)Ordered By: Reena Breaux on 10-11-2022 Eosinophils/100 WBC (Bld) 1.7 % . [facility] Erythrocyte distribution wid th Auto (RBC) [Ratio]Ordered By: Reena Breaux on 10-11-2022 Erythrocyte distribution width (RBC) [Ratio] 12.9 % 11.9-15.3 [facility] Estimated glomerular filtrat ion rate (GFR) non- AmericanOrdered By: Reena Breaux on 10-11-2022 GFR/1.73 sq M.predicted among non-blacks MDRD (S/P/Bld) [Vol rate/Area] > 60 mL/Min [facility] FE PROon 10-11-2022 % Iron Saturation 24.0 % Normal 20-50 [facility] Comment on above: Performed By: #### P HOS, [id number], CMP, CBC, [id number], FE PRO, MG #### [facility] [address] [place] [address] #### VITB1 #### [facility] , Ferritin [Mass/Vol] 29.2 ng/mL Normal 11-306.[address] [facility] Comment on above: Performed By: #### P HOS, [id number], CMP, CBC, [id number], FE PRO, MG #### [facility] [address] [place] [address] #### VITB1 #### [facility] , Iron [Mass/Vol] 69 ug/dL Normal 40-150 [facility] Comment on above: Performed By: #### P HOS, [id number], CMP, CBC, [id number], FE PRO, MG #### [facility] [address] [place] [address] #### VITB1 #### [facility] , Total Iron Binding Capacity 288 ug/dL Normal 255-450 [facility] Comment on above: Performed By: #### P HOS, [id number], CMP, CBC, [id number], FE PRO, MG #### [facility] [address] [place] [address] [place] #### VITB1 #### [facility] , Transferrin [Mass/Vol] 206 mg/dL Normal 180-380 [facility] Comment on above: Performed By: #### P HOS, [id number], CMP, CBC, [id number], FE PRO, MG #### [facility] [address] [place] [address] [place] #### VITB1 #### [facility] , Ferritin [Mass/volume] in Se rum or PlasmaOrdered By: Reena Breaux on 10-11-2022 Ferritin [Mass/Vol] 29.2 ng/mL 11-306.[address] [facility] Folate [Mass/volume] in Seru m or PlasmaOrdered By: Reena Breaux on 10-11-2022 Folate [Mass/Vol] 22.2 ng/mL >5.9 [facility] Comment on above: Folate reference ran ge: >5.9 ng/mlThe WHO technical consultation on folate and vitamin [id number] has determined that folate concentrations lessthan 4 ng/ml are considered deficient. Globulin Calc (S) [Mass/Vol] Ordered By: Reena Breaux on 10-11-2022 Globulin (S) [Mass/Vol] 2.8 g/dL [facility] Hematocrit Auto (Bld) [Volum e fraction]Ordered By: Reena Breaux on 10-11-2022 Hematocrit (Bld) [Volume fraction] 39.1 % 34.0-46.4 [facility] Hemoglobin [Mass/volume] in BloodOrdered By: Reena Breaux on 10-11-2022 Hemoglobin (Bld) [Mass/Vol] 13.1 g/dL 11.8-15.4 [facility] Iron [Mass/volume] in Serum or PlasmaOrdered By: Reena Breaux on 10-11-2022 Iron [Mass/Vol] 69 ug/dL 40-150 [facility] Iron binding capacity [Mass/ volume] in Serum or PlasmaOrdered By: Reena Breaux on 10-11-2022 Iron binding capacity [Mass/Vol] 288 ug/dL 255-450 [facility] Iron saturation [Mass Fracti on] in Serum or PlasmaOrdered By: Reena Breaux on 10-11-2022 Iron saturation [Mass fraction] 24.0 % 20-50 [facility] Laboratory - Chemistry and C hemistry - challengeOrdered By: Reena Breaux on 10-11-2022 Cobalamin (Vitamin B12) [Mass/Vol] 1437 pg/mL 180-914 [facility] Magnesium [Mass/Vol] 2.1 mg/dL 1.6-2.6 [facility] Leukocytes [#/volume] correc jakob for nucleated erythrocytes in Blood by Automated counOrdered By: Reena Breaux on 10-11-2022 WBC corrected for nucl RBC Auto (Bld) [#/Vol] 6.8 10*3/uL 3.8-11.6 [facility] Lymphocytes Auto (Bld) [#/Vo l]Ordered By: Reena Breaux on 10-11-2022 Lymphocytes (Bld) [#/Vol] 2.7 10*3/uL 1.00-4.8 [facility] Lymphocytes/100 WBC Auto (Bl d)Ordered By: Reena Breaux on 10-11-2022 Lymphocytes/100 WBC (Bld) 39.8 % . [facility] MCH Auto (RBC) [Entitic mass ]Ordered By: Reena Breaux on 10-11-2022 MCH (RBC) [Entitic mass] 31.9 pg 24.7-34.3 [facility] MCHC Auto (RBC) [Mass/Vol]Or dered By: Reena Breaux on 10-11-2022 MCHC (RBC) [Mass/Vol] 33.5 g/dL 32.0-35.0 [facility] MCV Auto (RBC) [Entitic vol] Ordered By: Reena Breaux on 10-11-2022 MCV (RBC) [Entitic vol] 95.3 fL 80-100 [facility] Magnesiumon 10-11-2022 Magnesium [Mass/Vol] 2.1 mg/dL Normal 1.6-2.6 [facility] Comment on above: Performed By: #### P HOS, [id number], CMP, CBC, [id number], FE PRO, MG #### [facility] [address] #### VITB1 #### [facility] , Monocytes Auto (Bld) [#/Vol] Ordered By: Reena Breaux on 10-11-2022 Monocytes (Bld) [#/Vol] 0.3 10*3/uL 0.0-0.8 [facility] Monocytes/100 WBC Auto (Bld) Ordered By: Reena Breaux on 10-11-2022 Monocytes/100 WBC (Bld) 5.1 % . [facility] Neutrophils Auto (Bld) [#/Vo l]Ordered By: Reena Breaux on 10-11-2022 Neutrophils (Bld) [#/Vol] 3.6 10*3/uL 1.8-7.7 [facility] Neutrophils/100 WBC Auto (Bl d)Ordered By: Reena Breaux on 10-11-2022 Neutrophils/100 WBC (Bld) 52.7 % . [facility] No Panel InformationOrdered By: Reena Breaux on 10-11-2022 25-Hydroxy Vitamin D Total 33.9 ng/mL 30-100 [facility] Comment on above: VITAMIN D STATUS 25( [place])VITAMIN D RANGE (ng/mL) Deficient <20 Insufficient 20 to <30Sufficient 30 to 100Reference: Kofi MF,Mauricio MUÑOZ, Mayank CUELLAR, et al. Evaluation,treatment, and prevention of vitamin D deficiency; an Endocrine Society clinical practice guideline. JCEM. 2010; 96(7):1911-30. Estimated GFR () > 60 mL/Min [facility] Comment on above: GFR estimated refere nce range: According to KDOQI guidelines, <60 ml/min/1.73m2 is sufficient to diagnose a patient with chronic kidney disease. Pharmacy Creatinine Clearance (Chem N/A [facility] Nucleated erythrocytes [Pres ence] in Blood by Automated countOrdered By: Reena Breaux on 10-11-2022 Nucleated RBC Auto Ql (Bld) 0.0 /100{WBC} 0-0.5 [facility] Phosphate [Mass/volume] in S negro or PlasmaOrdered By: Reena Breaux on 10-11-2022 Phosphate [Mass/Vol] 3.9 mg/dL 2.5-4.6 [facility] Phosphoruson 10-11-2022 Phosphate [Mass/Vol] 3.9 mg/dL Normal 2.5-4.6 [facility] Comment on above: Performed By: #### P HOS, [id number], CMP, CBC, [id number], FE PRO, MG #### [facility] [address] [place] [address] #### VITB1 #### [facility] , Platelet mean volume Auto (B ld) [Entitic vol]Ordered By: Reena Breaux on 10-11-2022 Platelet mean volume (Bld) [Entitic vol] 9.8 fL 6.3-10.7 [facility] Platelets Auto (Bld) [#/Vol] Ordered By: Reena Breaux on 10-11-2022 Platelets (Bld) [#/Vol] 226 10*3/uL 150-450 [facility] Protein [Mass/volume] in Ser um or PlasmaOrdered By: Reena Breaux on 10-11-2022 Protein [Mass/Vol] 6.8 g/dL 6.1-7.9 [facility] RBC Auto (Bld) [#/Vol]Ordere d By: Reena Breaux on 10-11-2022 RBC (Bld) [#/Vol] 4.11 10*6/uL 3.60-5.[address] [facility] Serum or plasma alanine doss otransferase measurement without P-5'-P (enzymatic activiOrdered By: Reena Breaux on 10-11-2022 ALT No additional P-5'-P [Catalytic activity/Vol] 12 U/L 10-60 [facility] Serum or plasma albumin/glob ulin mass ratioOrdered By: Reena Breaux on 10-11-2022 Albumin/Globulin [Mass ratio] 1.4 {ratio} [facility] Serum or plasma alkaline denis sphatase measurement (enzymatic activity/volume)Ordered By: Reena Breaux on 10-11-2022 ALP [Catalytic activity/Vol] 36 U/L 32-92 [facility] Serum or plasma anion gap de terminationOrdered By: Reena Breaux on 10-11-2022 Anion gap [Moles/Vol] 11.6 mmol/L 6.0-15.0 [facility] Serum or plasma aspartate am inotransferase measurement (enzymatic activity/volume)Ordered By: Reena Breaux on 10-11-2022 AST [Catalytic activity/Vol] 11 U/L 10-42 [facility] Serum or plasma calcium gloria urement (mass/volume)Ordered By: Reena Breaux on 10-11-2022 Calcium [Mass/Vol] 9.3 mg/dL 8.2-10.2 [facility] Serum or plasma chloride gina surement (moles/volume)Ordered By: Reena Breaux on 10-11-2022 Chloride [Moles/Vol] 103 mmol/L 95-114 [facility] Serum or plasma glucose gloria urement (mass/volume)Ordered By: Reena Breaux on 10-11-2022 Glucose [Mass/Vol] 85 mg/dL 70-100 [facility] Comment on above: ADA recommended refe rence rangeRandom Glucose Reference Range is dependent on time and content of last meal. Glucose of more than 200 mg/dL in a nonstressed, ambulatory subject supports the diagnosis of Diabetes Mellitus. Serum or plasma potassium me asurement (moles/volume)Ordered By: Reena Breaux on 10-11-2022 Potassium [Moles/Vol] 4.0 mmol/L 3.5-5.1 [facility] Serum or plasma sodium measu rement (moles/volume)Ordered By: Reena Breaux on 10-11-2022 Sodium [Moles/Vol] 137 mmol/L 136-146 [facility] Serum or plasma total biliru bin measurement (mass/volume)Ordered By: Reena Breaux on 10-11-2022 Bilirubin [Mass/Vol] 0.3 mg/dL 0.3-1.2 [facility] Serum or plasma total carbon dioxide measurement (moles/volume)Ordered By: Reena Breaux on 10-11-2022 CO2 [Moles/Vol] 26.4 mmol/L 22.0-30.0 [facility] Serum or plasma urea nitroge n measurement (mass/volume)Ordered By: Reena Breaux on 10-11-2022 Urea nitrogen [Mass/Vol] 11 mg/dL 9-23 [facility] Vit. B12/Folate Profileon Cobalamin (Vitamin B12) [Mass/Vol] 1437 pg/mL High 180-914 [facility] Comment on above: Performed By: #### P HOS, [id number], CMP, CBC, [id number], FE PRO, MG #### [facility] [address] [place] [address] #### VITB1 #### [facility] , Folate 22.2 ng/mL Normal >5.9 [facility] Comment on above: Result Comment: Tara te reference range: >5.9 ng/ml The WHO technical consultation on folate and vitamin b12 deficiencies has determined that folate concentrations less than 4 ng/ml are considered deficient. Performed By: #### P HOS, [id number], CMP, CBC, [id number], FE PRO, MG #### [address] #### VITB1 #### [facility] , Vitamin B1 (Thiamine) Bloodo n 10-11-2022 Vitamin B1 (Thiamine) Blood 153.8 Normal 66.5-200.0 [facility] Comment on above: Result Comment: This test was developed and its performance characteristics determined by [facility]. It has not been cleared or approved by the Food and Drug Administration. Performed at: [facility] [id number] Bioinformatician: Chary Soler MD, Phone: [phone] PERFORMED BY: [place] [address] PATHOLOGIST HAT CLE[employer]ER AMANDA CALLE M.D. Performed By: #### P HOS, [id number], CMP, CBC, [id number], FE PRO, MG #### [address] #### VITB1 #### [facility] , Vitamin D 25 Hydroxy Totalon 10-11-2022 Vitamin D 25 Hydroxy Total 33.9 ng/mL Normal 30-100 [facility] Comment on above: Result Comment: JONAH MIN D STATUS 25(OH)VITAMIN D RANGE (ng/mL) Deficient <20 Insufficient 20 to <30 Sufficient 30 to 100 Reference: Kofi MF,Mauricio NC, Mayank CUELLAR, et al. Evaluation,treatment, and prevention of vitamin D deficiency; an Endocrine Society clinical practice guideline. JCEM. 2010; 96(7):1911-30. PERFORMED BY: [place] [address] PATHOLOGIST HAT CLEANER AMANDA CALLE M.D. Performed By: #### P HOS, [id number], CMP, CBC, [id number], FE PRO, MG #### [address] #### VITB1 #### [facility] , WBC Auto (Bld) [#/Vol]Ordere d By: Reena Breaux on 10-11-2022 WBC (Bld) [#/Vol] 6.8 10*3/uL 3.8-11.6 [facility] Complete Blood Count Auto Di ffon 06-10-2022 Basophils (Bld) [#/Vol] 0.0 10*3/uL Normal 0.0-0.2 [facility] Comment on above: Order Comment: NOT F ASTING. JKW Result Comment: PERF ORMED BY: [place] [address] PATHOLOGIST HAT CLE[employer]ER AMANDA CALLE M.D. Performed By: #### V ITB1 #### [facility] , #### [id number], CMP, MG, FE PRO, PHOS, [id number], CBC #### [address] Basophils/100 WBC (Bld) 0.7 % Normal . [facility] Comment on above: Order Comment: NOT F ASTING. JKW Performed By: #### V ITB1 #### [facility] , #### [id number], CMP, MG, FE PRO, PHOS, [id number], CBC #### [facility] [address] [place] [address] Eosinophils (Bld) [#/Vol] 0.2 10*3/uL Normal 0.0-0.45 [facility] Comment on above: Order Comment: NOT F ASTING. JKW Performed By: #### V ITB1 #### [facility] , #### [id number], CMP, MG, FE PRO, PHOS, [id number], CBC #### [address] Eosinophils/100 WBC (Bld) 2.6 % Normal . [facility] Comment on above: Order Comment: NOT F ASTING. JKW Performed By: #### V ITB1 #### [facility] , #### [id number], CMP, MG, FE PRO, PHOS, [id number], CBC #### [address] Erythrocyte distribution width (RBC) [Ratio] 13.9 % Normal 11.9-15.3 [facility] Comment on above: Order Comment: NOT F ASTING. JKW Performed By: #### V ITB1 #### [facility] , #### [id number], CMP, MG, FE PRO, PHOS, [id number], CBC #### [address] Hematocrit (Bld) [Volume fraction] 39.1 % Normal 34.0-46.4 [facility] Comment on above: Order Comment: NOT F ASTING. JKW Performed By: #### V ITB1 #### [facility] , #### [id number], CMP, MG, FE PRO, PHOS, [id number], CBC #### [address] Hemoglobin (Bld) [Mass/Vol] 12.8 g/dL Normal 11.8-15.4 [facility] Comment on above: Order Comment: NOT F ASTING. JKW Performed By: #### V ITB1 #### [facility] , #### [id number], CMP, MG, FE PRO, PHOS, [id number], CBC #### [address] Lymphocytes (Bld) [#/Vol] 1.5 10*3/uL Normal 1.00-4.8 [facility] Comment on above: Order Comment: NOT F ASTING. JKW Performed By: #### V ITB1 #### [facility] , #### [id number], CMP, MG, FE PRO, PHOS, [id number], CBC #### [address] Lymphocytes/100 WBC (Bld) 24.6 % Normal . [facility] Comment on above: Order Comment: NOT F ASTING. JKW Performed By: #### V ITB1 #### [facility] , #### [id number], CMP, MG, FE PRO, PHOS, [id number], CBC #### [address] MCH (RBC) [Entitic mass] 31.8 pg Normal 24.7-34.3 [facility] Comment on above: Order Comment: NOT F ASTING. JKW Performed By: #### V ITB1 #### [facility] , #### [id number], CMP, MG, FE PRO, PHOS, [id number], CBC #### [address] MCV (RBC) [Entitic vol] 97.2 fL Normal 80-100 [facility] Comment on above: Order Comment: NOT F ASTING. JKW Performed By: #### V ITB1 #### [facility] , #### [id number], CMP, MG, FE PRO, PHOS, [id number], CBC #### [address] Mean Corpuscular HGB Conc 32.7 g/dL Normal 32.0-35.0 [facility] Comment on above: Order Comment: NOT F ASTING. JKW Performed By: #### V ITB1 #### [facility] , #### [id number], CMP, MG, FE PRO, PHOS, [id number], CBC #### [facility] [address] [place] [address] [place] Monocytes (Bld) [#/Vol] 0.4 10*3/uL Normal 0.0-0.8 [facility] Comment on above: Order Comment: NOT F ASTING. JKW Performed By: #### V ITB1 #### [facility] , #### [id number], CMP, MG, FE PRO, PHOS, [id number], CBC #### [place] [address] [place] Monocytes/100 WBC (Bld) 7.3 % Normal . [facility] Comment on above: Order Comment: NOT F ASTING. JKW Performed By: #### V ITB1 #### [facility] , #### [id number], CMP, MG, FE PRO, PHOS, [id number], CBC #### [place] [address] [place] Neutrophils (Bld) [#/Vol] 3.8 10*3/uL Normal 1.8-7.7 [facility] Comment on above: Order Comment: NOT F ASTING. JKW Performed By: #### V ITB1 #### [facility] , #### [id number], CMP, MG, FE PRO, PHOS, [id number], CBC #### [place] [address] [place] Neutrophils/100 WBC (Bld) 64.8 % Normal . [facility] Comment on above: Order Comment: NOT F ASTING. JKW Performed By: #### V ITB1 #### [facility] , #### [id number], CMP, MG, FE PRO, PHOS, [id number], CBC #### [address] Nucleated RBC/100 WBC (Bld) [Ratio] 0.1 % Normal 0-0.5 [facility] Comment on above: Order Comment: NOT F ASTING. JKW Performed By: #### V ITB1 #### [facility] , #### [id number], CMP, MG, FE PRO, PHOS, [id number], CBC #### [address] Platelet mean volume (Bld) [Entitic vol] 10.6 fL Normal 6.3-10.7 [facility] Comment on above: Order Comment: NOT F ASTING. JKW Performed By: #### V ITB1 #### [facility] , #### [id number], CMP, MG, FE PRO, PHOS, [id number], CBC #### [address] Platelets (Bld) [#/Vol] 237 10*3/uL Normal 150-450 [facility] Comment on above: Order Comment: NOT F ASTING. JKW Performed By: #### V ITB1 #### [facility] , #### [id number], CMP, MG, FE PRO, PHOS, [id number], CBC #### [address] RBC (Bld) [#/Vol] 4.02 10*6/uL Normal 3.60-5.[address] [facility] Comment on above: Order Comment: NOT F ASTING. JKW Performed By: #### V ITB1 #### [facility] , #### [id number], CMP, MG, FE PRO, PHOS, [id number], CBC #### [address] WBC (Bld) [#/Vol] 5.9 10*3/uL Normal 4.5-11.0 [facility] Comment on above: Order Comment: NOT F ASTING. JKW Performed By: #### V ITB1 #### [facility] , #### [id number], CMP, MG, FE PRO, PHOS, [id number], CBC #### [facility] [address] [place] [address] Comprehensive Metabolic Pane nicole 06-10-2022 Albumin [Mass/Vol] 3.9 g/dL Normal 3.2-5.5 [facility] Comment on above: Order Comment: NOT F ASTING. JKW Performed By: #### V ITB1 #### [facility] , #### [id number], CMP, MG, FE PRO, PHOS, [id number], CBC #### [address] Albumin/Globulin [Mass ratio] 1.4 {ratio} Normal [facility] Comment on above: Order Comment: NOT F ASTING. JKW Performed By: #### V ITB1 #### [facility] , #### [id number], CMP, MG, FE PRO, PHOS, [id number], CBC #### [place] [id number] [facility] ALP [Catalytic activity/Vol] 43 U/L Normal 32-92 [facility] Comment on above: Order Comment: NOT F ASTING. JKW Performed By: #### V ITB1 #### [facility] , #### [id number], CMP, MG, FE PRO, PHOS, [id number], CBC #### [facility] [address] [place] [id number] [place] ALT [Catalytic activity/Vol] 12 U/L Normal 10-60 [facility] Comment on above: Order Comment: NOT F ASTING. JKW Performed By: #### V ITB1 #### [facility] , #### [id number], CMP, MG, FE PRO, PHOS, [id number], CBC #### [facility] [address] Anion gap [Moles/Vol] 11.0 mmol/L Normal 6.0-15.0 [facility] Comment on above: Order Comment: NOT F ASTING. JKW Performed By: #### V ITB1 #### [facility] , #### [id number], CMP, MG, FE PRO, PHOS, [id number], CBC #### [address] AST [Catalytic activity/Vol] 10 U/L Normal 10-42 [facility] Comment on above: Order Comment: NOT F ASTING. JKW Performed By: #### V ITB1 #### [facility] , #### [id number], CMP, MG, FE PRO, PHOS, [id number], CBC #### [address] Bilirubin [Mass/Vol] 0.7 mg/dL Normal 0.3-1.2 [facility] Comment on above: Order Comment: NOT F ASTING. JKW Performed By: #### V ITB1 #### [facility] , #### [id number], CMP, MG, FE PRO, PHOS, [id number], CBC #### [address] Calcium [Mass/Vol] 9.8 mg/dL Normal 8.2-10.2 [facility] Comment on above: Order Comment: NOT F ASTING. JKW Performed By: #### V ITB1 #### [facility] , #### [id number], CMP, MG, FE PRO, PHOS, [id number], CBC #### [facility] [address] Chloride [Moles/Vol] 104 mmol/L Normal 95-114 [facility] Comment on above: Order Comment: NOT F ASTING. JKW Performed By: #### V ITB1 #### [facility] , #### [id number], CMP, MG, FE PRO, PHOS, [id number], CBC #### [facility] [address] [place] [address] CO2 [Moles/Vol] 25.3 mmol/L Normal 22.0-30.0 [facility] Comment on above: Order Comment: NOT F ASTING. JKW Performed By: #### V ITB1 #### [facility] , #### [id number], CMP, MG, FE PRO, PHOS, [id number], CBC #### [facility] [address] [place] [address] Creatinine [Mass/Vol] 0.56 mg/dL Normal 0.44-1.03 [facility] Comment on above: Order Comment: NOT F ASTING. JKW Performed By: #### V ITB1 #### [facility] , #### [id number], CMP, MG, FE PRO, PHOS, [id number], CBC #### [facility] [address] [place] [address] Estimated GFR ( Christiano > 60 [facility] Comment on above: Order Comment: NOT F ASTING. JKW Result Comment: GFR estimated reference range: According to KDOQI guidelines, <60 ml/min/1.73m2 is sufficient to diagnose a patient with chronic kidney disease. Performed By: #### V ITB1 #### [facility] , #### [id number], CMP, MG, FE PRO, PHOS, [id number], CBC #### [facility] [address] [place] [address] Estimated GFR (Non- Am > 60 [facility] Comment on above: Order Comment: NOT F ASTING. JKW Performed By: #### V ITB1 #### [facility] , #### [id number], CMP, MG, FE PRO, PHOS, [id number], CBC #### [facility] [address] Globulin (S) [Mass/Vol] 2.8 g/dL Normal [facility] Comment on above: Order Comment: NOT F ASTING. JKW Performed By: #### V ITB1 #### [facility] , #### [id number], CMP, MG, FE PRO, PHOS, [id number], CBC #### [facility] [address] Glucose [Mass/Vol] 95 mg/dL Normal 70-100 [facility] Comment on above: Order Comment: NOT F ASTING. JKW Result Comment: [facility] Glucose Reference Range is dependent on time and content of last meal. Glucose of more than 200 mg/dL in a nonstressed, ambulatory subject supports the diagnosis of Diabetes Mellitus. ADA recommended reference range Performed By: #### V ITB1 #### [facility] , #### [id number], CMP, MG, FE PRO, PHOS, [id number], CBC #### [address] Potassium [Moles/Vol] 4.3 mmol/L Normal 3.5-5.1 [facility] Comment on above: Order Comment: NOT F ASTING. JKW Performed By: #### V ITB1 #### [facility] , #### [id number], CMP, MG, FE PRO, PHOS, [id number], CBC #### [facility] [address] Protein [Mass/Vol] 6.7 g/dL Normal 6.1-7.9 [facility] Comment on above: Order Comment: NOT F ASTING. JKW Performed By: #### V ITB1 #### [facility] , #### [id number], CMP, MG, FE PRO, PHOS, [id number], CBC #### [address] Sodium [Moles/Vol] 136 mmol/L Normal 136-146 [facility] Comment on above: Order Comment: NOT F ASTING. JKW Performed By: #### V ITB1 #### [facility] , #### [id number], CMP, MG, FE PRO, PHOS, [id number], CBC #### [address] Urea nitrogen [Mass/Vol] 7 mg/dL Low 9-23 [facility] Comment on above: Order Comment: NOT F ASTING. JKW Performed By: #### V ITB1 #### [facility] , #### [id number], CMP, MG, FE PRO, PHOS, [id number], CBC #### [address] FE PROon 10-20-2022 % Iron Saturation 19.0 % Low 20-50 [facility] Comment on above: Order Comment: NOT F ASTING. JKW Performed By: #### P HOS, [id number], CMP, CBC, [id number], FE PRO, MG #### [address] #### VITB1 #### [facility] , Ferritin [Mass/Vol] 46.7 ng/mL Normal 11-306.[address] [facility] Comment on above: Order Comment: NOT F ASTING. JKW Performed By: #### P HOS, [id number], CMP, CBC, [id number], FE PRO, MG #### [facility] [address] [place] [address] #### VITB1 #### [facility] , Iron [Mass/Vol] 50 ug/dL Normal 40-150 [facility] Comment on above: Order Comment: NOT F ASTING. JKW Performed By: #### P HOS, [id number], CMP, CBC, [id number], FE PRO, MG #### [facility] [address] [place] [address] #### VITB1 #### [facility] , Total Iron Binding Capacity 260 ug/dL Normal 255-450 [facility] Comment on above: Order Comment: NOT F ASTING. JKW Performed By: #### P HOS, [id number], CMP, CBC, [id number], FE PRO, MG #### [address] #### VITB1 #### [facility] , Transferrin [Mass/Vol] 186 mg/dL Normal 180-380 [facility] Comment on above: Order Comment: NOT F ASTING. JKW Performed By: #### P HOS, [id number], CMP, CBC, [id number], FE PRO, MG #### [address] #### VITB1 #### [facility] , Magnesiumon 06-10-2022 Magnesium [Mass/Vol] 2.0 mg/dL Normal 1.6-2.6 [facility] Comment on above: Order Comment: NOT F ASTING. JKW Performed By: #### P HOS, [id number], CMP, CBC, [id number], FE PRO, MG #### [facility] [address] [place] [address] [place] #### VITB1 #### [facility] , Phosphoruson 06-10-2022 Phosphate [Mass/Vol] 4.1 mg/dL Normal 2.5-4.6 [facility] Comment on above: Order Comment: NOT F ASTING. JKW Performed By: #### P HOS, [id number], CMP, CBC, [id number], FE PRO, MG #### [place] [address] [place] #### VITB1 #### [facility] , Vit. B12/Folate Profileon Cobalamin (Vitamin B12) [Mass/Vol] 575 pg/mL Normal 180-914 [facility] Comment on above: Order Comment: NOT F ASTING. JKW Performed By: #### P HOS, [id number], CMP, CBC, [id number], FE PRO, MG #### [place] [address] [place] #### VITB1 #### [facility] , Folate 14.3 ng/mL Normal >5.9 [facility] Comment on above: Order Comment: NOT F ASTING. JKW Result Comment: Tara te reference range: >5.9 ng/ml The WHO technical consultation on folate and vitamin b12 deficiencies has determined that folate concentrations less than 4 ng/ml are considered deficient. Performed By: #### P HOS, [id number], CMP, CBC, [id number], FE PRO, MG #### [address] #### VITB1 #### [facility] , Vitamin B1 (Thiamine) Bloodo n 06-10-2022 Vitamin B1 (Thiamine) Blood 143.0 Normal 66.5-200.0 [facility] Comment on above: Order Comment: NOT F ASTING. JKW Result Comment: This test was developed and its performance characteristics determined by [facility]. It has not been cleared or approved by the Food and Drug Administration. Performed at: [facility] [id number] Bioinformatician: Chary Soler MD, Phone: [phone] PERFORMED BY: [place] [address] PATHOLOGIST HAT CLEANER AMANDA CALLE M.D. Performed By: #### P HOS, [id number], CMP, CBC, [id number], FE PRO, MG #### [place] [address] [place] #### VITB1 #### [facility] , Vitamin D 25 Hydroxy Totalon 06-10-2022 Vitamin D 25 Hydroxy Total 27.8 ng/mL Low 30-100 [facility] Comment on above: Order Comment: DONNA ROBBINS. JKW Result Comment: JONAH MIN D STATUS 25(OH)VITAMIN D RANGE (ng/mL) Deficient <20 Insufficient 20 to <30 Sufficient 30 to 100 Reference: Kofi MF,Mauricio MUÑOZ, Mayank CUELLAR, et al. Evaluation,treatment, and prevention of vitamin D deficiency; an Endocrine Society clinical practice guideline. JCEM. 2010; 96(7):1911-30. PERFORMED BY: [place] [address] PATHOLOGIST HAT CLEANER AMANDA CALLE M.D. Performed By: #### P HOS, [id number], CMP, CBC, [id number], FE PRO, MG #### [address] #### VITB1 #### [facility] , HGB A1Con 01-15-2022 Average glucose Estimated from glycated hemoglobin (Bld) [Mass/Vol] 128 mg/dL Normal [facility] Comment on above: Order Comment: Mary head Type: BLOOD SPECIMEN Ordering Facility: [facility] Address: [address] [place] [address] Result Comment: eAG: (Estimated average glucose) is a calculated value from HgbA1c and is sales representative wire rope of the average blood glucose level in the last 2-3 month period. Performed By: #### H BA1C #### [facility] CLIA [id number] [address] [place], [place] [address]K [id number] [place] [address] [place] HbA1c (Bld) [Mass fraction] 6.1 % High 4.3-5.6 [facility] Comment on above: Order Comment: Mary head Type: BLOOD SPECIMEN Ordering Facility: [facility] Address: [address] [place] [address] Result Comment: Amer ican Diabetes Association guidelines indicate that patients with HgbA1c in the range 5.7-6.4% are at increased risk for development of diabetes, and intervention by lifestyle modification may be beneficial. HgbA1c greater or equal to 6.5% is considered diagnostic of diabetes. Performed By: #### H BA1C #### [facility] CLIA [id number] [address] [facility] [id number] [address] [place] [facility] POTASSIUM BLDon 01-15-2022 Potassium [Moles/Vol] 4.9 mmol/L Normal 3.7-5.1 [facility] Comment on above: Order Comment: Speci men Type: BLOOD SPECIMEN Ordering Facility: [facility] Address: [address] [place], [place] [id number] Performed By: #### K 1 #### [facility] CLIA [id number] [address] [facility] [place], [place] [id number] [place] [address] STATES OF [facility] Potassium [Moles/Vol] 4.9 mmol/L 3.7 - 5.1 mmol/L [facility] Vital Signs Date Time Vital Sign Value Performing Clinician Facility 05-01-2025 09:22-0400 Body mass index (BMI) [Ratio] 38.11 kg/m2 Rosy KRUGER Work Phone: [facility] 05-01-2025 09:22-0400 Body weight 97.58 kg Rosy KRUGER Work Phone: [facility] 05-01-2025 09:22-0400 Diastolic blood pressure 60 mm[Hg] Rosy KRUGER Work Phone: [facility] 05-01-2025 09:22-0400 Systolic blood pressure 110 mm[Hg] Rosy KRUGER Work Phone: [facility] 04-24-2025 11:50-0400 Body mass index (BMI) [Ratio] 37.22 kg/m2 Roscoe Joe DO Work Phone: [facility] 04-24-2025 11:50-0400 Body weight 95.31 kg Roscoe Joe DO Work Phone: [facility] 04-24-2025 11:50-0400 Diastolic blood pressure 74 mm[Hg] Roscoe Joe DO Work Phone: [facility] 04-24-2025 11:50-0400 Systolic blood pressure 116 mm[Hg] Roscoe Joe DO Work Phone: [facility] 04-10-2025 15:14-0400 Body mass index (BMI) [Ratio] 37.22 kg/m2 Roscoe Joe DO Work Phone: [facility] 04-10-2025 15:14-0400 Body weight 95.31 kg Roscoe Joe DO Work Phone: [facility] 04-10-2025 15:14-0400 Diastolic blood pressure 70 mm[Hg] Roscoe Joe DO Work Phone: [facility] 04-10-2025 15:14-0400 Systolic blood pressure 120 mm[Hg] Roscoe Joe DO Work Phone: [facility] 03-27-2025 14:01-0400 Body mass index (BMI) [Ratio] 36.28 kg/m2 Roscoe Joe DO Work Phone: [facility] 03-27-2025 14:01-0400 Body weight 92.9 kg Roscoe Joe DO Work Phone: [facility] 03-27-2025 14:01-0400 Diastolic blood pressure 72 mm[Hg] Roscoe Joe DO Work Phone: [facility] 03-27-2025 14:01-0400 Systolic blood pressure 116 mm[Hg] Roscoe Joe DO Work Phone: [facility] 03-13-2025 15:41-0400 Body mass index (BMI) [Ratio] 36.46 kg/m2 Rosy KRUGER Work Phone: [facility] 03-13-2025 15:41-0400 Body weight 93.35 kg Rosy KRUGER Work Phone: [facility] 03-13-2025 15:41-0400 Diastolic blood pressure 70 mm[Hg] Rosy Oralia PA Work Phone: [facility] 03-13-2025 15:41-0400 Systolic blood pressure 110 mm[Hg] Rosy Barton PA Work Phone: [facility] 03-12-2025 13:35-0400 Body height 160 cm Daisha Lavoy PA-C Work Phone: [facility] 03-12-2025 13:35-0400 Body mass index (BMI) [Ratio] 36.38 kg/m2 Daisha Lavoy PA-C Work Phone: [facility] 03-12-2025 13:35-0400 Body weight 93.17 kg Daisha Lavoy PA-C Work Phone: [facility] 03-12-2025 13:35-0400 Diastolic blood pressure 57 mm[Hg] Daisha Lavoy PA-C Work Phone: [facility] 03-12-2025 13:35-0400 Heart rate 76 /min Daisha Lavoy PA-C Work Phone: [facility] 03-12-2025 13:35-0400 Systolic blood pressure 99 mm[Hg] Daisah Lavoy PA-C Work Phone: [facility] 02-27-2025 14:00-0400 Body mass index (BMI) [Ratio] 36.1 kg/m2 Roscoe Joe DO Work Phone: [facility] 02-27-2025 14:00-0400 Body weight 92.44 kg Roscoe Joe DO Work Phone: [facility] 02-27-2025 14:00-0400 Diastolic blood pressure 60 mm[Hg] Roscoe Joe DO Work Phone: [facility] 02-27-2025 14:00-0400 Systolic blood pressure 110 mm[Hg] Roscoe Joe DO Work Phone: [facility] 02-14-2025 15:17-0400 Body mass index (BMI) [Ratio] 36.21 kg/m2 Hien Giles RN Work Phone: [facility] 02-14-2025 15:17-0400 Body weight 92.72 kg Hien Giles RN Work Phone: [facility] 02-11-2025 11:36-0400 Body mass index (BMI) [Ratio] 35.87 kg/m2 Rosy Barton PA Work Phone: [facility] 02-11-2025 11:36-0400 Body weight 91.85 kg Rosy Oralia PA Work Phone: [facility] 02-11-2025 11:36-0400 Diastolic blood pressure 60 mm[Hg] Rosy Oralia PA Work Phone: [facility] 02-11-2025 11:36-0400 Systolic blood pressure 110 mm[Hg] Rosy Oralia PA Work Phone: [facility] 02-07-2025 10:43-0400 Body height 160 cm Scanning External [facility] 01-10-2025 10:33-0400 Body mass index (BMI) [Ratio] 34.92 kg/m2 Roscoe Joe DO Work Phone: [facility] 01-10-2025 10:33-0400 Body weight 89.41 kg Roscoe Joe DO Work Phone: [facility] 01-10-2025 10:33-0400 Diastolic blood pressure 68 mm[Hg] Roscoe Joe DO Work Phone: [facility] 01-10-2025 10:33-0400 Systolic blood pressure 110 mm[Hg] Roscoe Joe DO Work Phone: [facility] 12-10-2024 11:23-0400 Body mass index (BMI) [Ratio] 33.66 kg/m2 Roys Oralia PA Work Phone: [facility] 12-10-2024 11:23-0400 Body weight 86.18 kg Rosy Barton PA Work Phone: [facility] 12-10-2024 11:23-0400 Diastolic blood pressure 70 mm[Hg] Rosy KRUGER Work Phone: [facility] 12-10-2024 11:23-0400 Systolic blood pressure 106 mm[Hg] Rosy Barton PA Work Phone: [facility] 11-08-2024 11:04-0400 Body mass index (BMI) [Ratio] 32.24 kg/m2 Roscoe Joe DO Work Phone: [facility] 11-08-2024 11:04-0400 Body weight 82.56 kg Roscoe Joe DO Work Phone: [facility] 11-08-2024 11:04-0400 Diastolic blood pressure 60 mm[Hg] Roscoe Joe DO Work Phone: [facility] 11-08-2024 11:04-0400 Systolic blood pressure 100 mm[Hg] Roscoe Joe DO Work Phone: [facility] 10-18-2024 13:54-0500 Body mass index (BMI) [Ratio] 31.38 kg/m2 [facility] Nurse [facility] 10-18-2024 13:54-0500 Body weight 80.34 kg [facility] Nurse [facility] 08-02-2024 15:58-0500 Body temperature 96.8 [degF] Edu Alvarez DESK CLERKS SUPERVISOR Work Phone: [facility] 08-02-2024 15:58-0500 Diastolic blood pressure 66 mm[Hg] Edu Alvarez DESK CLERKS SUPERVISOR Work Phone: [facility] 08-02-2024 15:58-0500 Heart rate 88 /min Edu Alvarez DESK CLERKS SUPERVISOR Work Phone: [facility] 08-02-2024 15:58-0500 SaO2% (BldA) [Mass fraction] 98 % Edu Alvarez DESK CLERKS SUPERVISOR Work Phone: [facility] 08-02-2024 15:58-0500 Systolic blood pressure 106 mm[Hg] Edu Alvarez DESK CLERKS SUPERVISOR Work Phone: [facility] 07-25-2024 14:19-0500 Body height 160 cm Sina Jain DO Work Phone: [facility] 07-25-2024 14:19-0500 Body mass index (BMI) [Ratio] 30.82 kg/m2 Sina Jain DO Work Phone: [facility] 07-25-2024 14:19-0500 Body weight 78.93 kg Sina Jain DO Work Phone: [facility] 07-25-2024 14:19-0500 Diastolic blood pressure 68 mm[Hg] Sina Jain DO Work Phone: [facility] 07-25-2024 14:19-0500 Heart rate 68 /min Sina Jain DO Work Phone: [facility] 07-25-2024 14:19-0500 Respiratory rate 12 /min Sina Jain DO Work Phone: [facility] 07-25-2024 14:19-0500 SaO2% (BldA) [Mass fraction] 99 % Sina Jain DO Work Phone: [facility] 07-25-2024 14:19-0500 Systolic blood pressure 128 mm[Hg] Sina Jain DO Work Phone: [facility] 06-29-2024 12:36-0500 Body mass index (BMI) [Ratio] 29.58 kg/m2 Berenice Zepeda APRN.CONE RUNNER Work Phone: [facility] 06-29-2024 12:36-0500 Body weight 75.75 kg Berenice Zepeda ROLLER STAINER.CONE RUNNER Work Phone: [facility] 06-29-2024 12:36-0500 Diastolic blood pressure 68 mm[Hg] Berenice Webbtter ROLLER STAINER.CONE RUNNER Work Phone: [facility] 06-29-2024 12:36-0500 Heart rate 65 /min Berenice Zepeda ROLLER STAINER.CONE RUNNER Work Phone: [facility] 06-29-2024 12:36-0500 Systolic blood pressure 101 mm[Hg] Berenice Webbtter ROLLER STAINER.CONE RUNNER Work Phone: [facility] 09-23-2023 14:27-0500 Body height 160 cm Berenice Evelyn ROLLER STAINER.CONE RUNNER Work Phone: [facility] 09-23-2023 14:27-0500 Body weight 76.2 kg Berenice Evelyn ROLLER STAINER.CONE RUNNER Work Phone: [facility] 07-21-2023 16:05-0500 Body height 161.2 cm Berenice Evelyn ROLLER STAINER.CONE RUNNER Work Phone: [facility] 07-21-2023 16:05-0500 Body weight 80.06 kg Berenice Evelyn ROLLER STAINER.CONE RUNNER Work Phone: [facility] 07-21-2023 16:05-0500 Diastolic blood pressure 74 mm[Hg] Berenice Evelyn ROLLER STAINER.CONE RUNNER Work Phone: [facility] 07-21-2023 16:05-0500 Heart rate 60 /min Berenice Evelyn ROLLER STAINER.CONE RUNNER Work Phone: [facility] 07-21-2023 16:05-0500 Systolic blood pressure 112 mm[Hg] Berenice Evelyn ROLLER STAINER.CONE RUNNER Work Phone: [facility] 01-15-2022 11:50-0400 Body height 162.6 cm Dasha Lujan MD Work Phone: [facility] 01-15-2022 11:50-0400 Body temperature 98.01 [degF] Dasha Lujan MD Work Phone: [facility] 01-15-2022 11:50-0400 Body weight 104.33 kg Dasha Lujan MD Work Phone: [facility] 01-15-2022 11:50-0400 Diastolic blood pressure 86 mm[Hg] Dasha Lujan MD Work Phone: [facility] 01-15-2022 11:50-0400 Heart rate 65 /min Dasha Lujan MD Work Phone: [facility] 01-15-2022 11:50-0400 Respiratory rate 16 /min Dasha Lujan MD Work Phone: [facility] 01-15-2022 11:50-0400 Systolic blood pressure 124 mm[Hg] Dasha Lujan MD Work Phone: [facility] Encounters Encounter Date Encounter Type Care Provider Facility Start: 05-01-2025 End: 05-01-2025 Refill Marilia Dillon APRN-CONE RUNNER Work Phone: [facility] Comment on above: Gestational diabetes requiring insulin Start: 05-01-2025 End: 05-01-2025 flow sheet Rosy KRUGER Work Phone: [facility] Comment on above: 37 weeks gestation o f ([facility]); Third trimester ([facility]); H/O gastric sleeve; Insulin controlled gestational diabetes mellitus (GDM) during , antepartum ([facility]) Start: 05-01-2025 End: 05-01-2025 Office outpatient visit 25 minutes Marilia Dillon APRN-CONE RUNNER Work Phone: [facility] Comment on above: Gestational diabetes requiring insulin (Primary Dx) Start: 04-29-2025 End: 04-29-2025 Clinisync Result Encounter Rosy KRUGER Work Phone: [facility] Unsolicited Start: 04-29-2025 End: 04-29-2025 Clinisync Result Encounter Rosy KRUGER Work Phone: [facility] Unsolicited Start: 04-24-2025 End: 04-24-2025 Bamboo flowsheet Roscoe Joe DO Work Phone: [facility] Start: 04-24-2025 End: 04-24-2025 Bamboo flowsheet Roscoe Joe DO Work Phone: [facility] Start: 04-24-2025 End: 04-24-2025 flow sheet Roscoe Joe DO Work Phone: [facility] Comment on above: Third trimester preg piper ([facility]); 36 weeks gestation of ([facility]) Start: 04-24-2025 End: 04-24-2025 ambulatory ROSCOE JOE Not Available Start: 04-23-2025 End: 04-23-2025 Clinisync Result Encounter Rosy KRUGER Work Phone: [facility] Unsolicited Start: 04-23-2025 End: 04-23-2025 Clinisync Result Encounter Rosy KRUGER Work Phone: [facility] Unsolicited Start: 04-23-2025 End: 04-23-2025 Telephone encounter Devika MALDONADO Work Phone: [facility] Start: 04-15-2025 End: 04-15-2025 Clinisync Result Encounter Rosy KRUGER Work Phone: [facility] Unsolicited Start: 04-15-2025 End: 04-15-2025 Clinisync Result Encounter Rosy KRUGER Work Phone: [facility] Unsolicited Start: 04-15-2025 End: 04-15-2025 Telephone encounter Beulah Miller RN [facility] Start: 04-10-2025 End: 04-10-2025 flow sheet Roscoe Joe DO Work Phone: [facility] Comment on above: 34 weeks gestation o f ([facility]); Third trimester ([facility]); H/O gastric sleeve; Insulin controlled gestational diabetes mellitus (GDM) during , antepartum ([facility]) Start: 04-10-2025 End: 04-10-2025 ambulatory ROSCOE JOE Not Available Start: 04-10-2025 End: 04-10-2025 Bamboo flowsheet Roscoe Joe DO Work Phone: [facility] Start: 04-10-2025 End: 04-10-2025 Bamboo flowsheet Roscoe Joe DO Work Phone: [facility] Start: 04-09-2025 End: 04-09-2025 Telephone encounter Devika MALDONADO Work Phone: [facility] Start: 04-08-2025 End: 04-08-2025 Clinisync Result [...] encounter Blanquita Toney RN Maternal- Medicine at [facility] Start: 04-01-2025 End: 04-01-2025 ambulatory [facility] Start: 04-01-2025 End: 04-01-2025 Office outpatient visit 25 minutes Daisha Emelia Briseno PA-C Work Phone: Maternal- Medicine at [facility] Comment on above: Gestational diabetes requiring insulin (Primary Dx) Start: 03-27-2025 End: 03-27-2025 Bamboo flowsheet Roscoe Joe DO Work Phone: [facility] Start: 03-27-2025 End: 03-27-2025 Bamboo flowsheet Roscoe Joe DO Work Phone: [facility] Start: 03-27-2025 End: 03-27-2025 flow sheet Roscoe Diaz DO Work Phone: [facility] Comment on above: Third trimester preg piper ([facility]); H/O gastric sleeve; Gestational diabetes mellitus (GDM), antepartum, gestational diabetes method of control unspecified ([facility]); 32 weeks gestation of ([facility]) Start: 03-27-2025 End: 03-27-2025 ambulatory ROSCOE WELCHO Not Available Start: 03-26-2025 End: 03-26-2025 Telephone encounter Devika MALDONADO Work Phone: Maternal- Medicine at [facility] Start: 03-19-2025 End: 03-19-2025 Telephone encounter Fatimah MALDONADO Maternal- Medicine at [facility] Start: 03-13-2025 End: 03-13-2025 flow sheet Rosy KRUGER Work Phone: [facility] Comment on above: 30 weeks gestation o f ([facility]); Third trimester ([facility]); H/O gastric sleeve; Gestational diabetes mellitus (GDM), antepartum, gestational diabetes method of control unspecified ([facility]) Start: 03-13-2025 End: 03-13-2025 ambulatory ROSY BARTON Not Available Start: 03-13-2025 End: 03-13-2025 Bamboo flowsheet Rosy KRUGER Work Phone: [facility] Start: 03-13-2025 End: 03-13-2025 Bamboo flowsheet Rosy KRUGER Work Phone: [facility] Start: 03-12-2025 End: 03-12-2025 ambulatory DAISHA BRISENO [facility] Start: 03-12-2025 End: 03-12-2025 Office outpatient visit 25 minutes Daisha Briseno PA-C Work Phone: Maternal- Medicine at [facility] Comment on above: Gestational diabetes mellitus (GDM) in second trimester, gestational diabetes method of control unspecified (Primary Dx); Gestational diabetes requiring insulin Start: 03-05-2025 End: 03-05-2025 Telephone encounter Devika MALDONADO Work Phone: Maternal- Medicine at [facility] Start: 02-27-2025 End: 02-27-2025 flow sheet Roscoe Joe DO Work Phone: [facility] Comment on above: 28 weeks gestation o f ([facility]); Third trimester ([facility]); H/O gastric sleeve; Gestational diabetes mellitus (GDM), antepartum, gestational diabetes method of control unspecified ([facility]) Start: 02-27-2025 End: 02-27-2025 ambulatory ROSCOE JOE Not Available Start: 02-26-2025 End: 02-26-2025 Telephone encounter Devika MALDONADO Work Phone: Maternal- Medicine at [facility] Start: 02-14-2025 End: 02-14-2025 ambulatory Hien Giles RN Work Phone: Maternal- Medicine at [facility] Comment on above: Gestational diabetes mellitus (GDM) in second trimester, gestational diabetes method of control unspecified (Primary Dx) Start: 02-11-2025 End: 02-11-2025 flow sheet Rosy KRUGER Work Phone: [facility] Comment on above: Second trimester pre gnancy ([facility]); 26 weeks gestation of ([facility]); H/O gastric sleeve Start: 02-11-2025 End: 02-11-2025 ambulatory ROSY BARTON Not Available Start: 02-07-2025 End: 02-07-2025 Chart abstracting Scanning Provider External [facility]- Medicine at [facility] Start: 02-01-2025 End: 02-01-2025 Clinisync Result Encounter Roscoe Joe DO Work Phone: [facility] External Department Unsolicited Start: 02-01-2025 End: 02-01-2025 Clinisync Result Encounter Roscoe Joe DO Work Phone: [facility] External Department Unsolicited Start: 01-30-2025 End: 01-30-2025 ambulatory ROSCOE WELCHO Not Available Start: 01-10-2025 End: 01-10-2025 flow sheet Roscoe Welcho DO Work Phone: [facility] Comment on above: 21 weeks gestation o f ; Second trimester ; Diabetes mellitus screening Start: 01-10-2025 End: 01-10-2025 ambulatory ROSCOE WELCHO Not Available Start: 01-02-2025 End: 01-02-2025 Clinisync Result Encounter Roscoe Welcho DO Work Phone: [facility] External Department Unsolicited Start: 01-02-2025 End: 01-02-2025 Clinisync Result Encounter Roscoe Welcho DO Work Phone: [facility] External Department Unsolicited [...] Office outpatient visit 25 minutes Edu Alvarez DESK [employer]ERKS SUPERVISOR Work Phone: [facility] Comment on above: Acute cough (Primary Dx); Chest congestion; Bronchitis Start: 07-25-2024 End: 07-25-2024 ambulatory SINA JAIN Not Available Start: 07-25-2024 End: 07-25-2024 Office outpatient new 45 minutes Sina Jain DO Work Phone: [facility] Comment on above: Rectal bleeding (Cony mike Dx) Start: 07-25-2024 End: 07-25-2024 Bamboo flowsheet Sina Pascual DO Work Phone: [facility] Start: 07-25-2024 End: 07-25-2024 Bamboo flowsheet Sina Jain DO Work Phone: [facility] Start: 06-29-2024 End: 06-29-2024 ambulatory DASHA LUJAN Facility:[place] Start: 06-29-2024 End: 06-29-2024 Patient encounter procedure Berenice Webbradha WEST.[employer]E RUNNER Work Phone: Internal Medicine Comment on above: Encounter for weight management (Primary Dx); Overweight Start: 03-06-2024 ambulatory Berenice wheatley [employer]LLER STAINER.[employer]E [employer]NER Work Phone: Internal Medicine Start: 03-06-2024 Patient encounter procedure Berenice Webbtter [employer]ER STAINER.[employer]NER Work Phone: Internal Medicine Comment on above: Prescription Start: 09-23-2023 End: 09-23-2023 ambulatory Berenice Evelyn [employer]LLER ST[employer]ER.[employer]NER Work Phone: Internal Medicine Comment on above: Encounter for weight management; Overweight (BMI 25.0-29.9) Start: 09-23-2023 End: 09-23-2023 Telemedicine consultation with patient Berenice Zepeda APRN.CONE RUNNER Work Phone: [facility] Start: 08-23-2023 End: 08-23-2023 ambulatory BERENICE ZEPEDA Facility:[place] Start: 07-26-2023 End: 07-26-2023 ambulatory DASHA LUJAN Facility:[place] Start: 07-21-2023 End: 07-21-2023 ambulatory BERENICE ZEPEDA Facility:[place] Start: 07-21-2023 End: 07-21-2023 Patient encounter procedure Berenice Webbradha CHENGN.CONE RUNNER Work Phone: Internal Medicine Comment on above: Routine adult health maintenance (Primary Dx); IFG (impaired fasting glucose); Encounter for weight management; Class 1 obesity due to excess calories with body mass index (BMI) of 30.0 to 30.9 in adult, unspecified whether serious comorbidity present; Encounter for immunization; Immunity status testing Start: 07-21-2023 End: 07-21-2023 Patient encounter status Berenice Zepeda MIRZA Work Phone: [facility] Work Phone: Start: 06-29-2023 ambulatory Dasha Lujan MD Work Phone: Internal Medicine Comment on above: Prescription Start: 10-11-2022 End: 10-11-2022 ambulatory Reena Breaux Facility:[facility] Start: 10-11-2022 End: 10-11-2022 ambulatory MD Dasha Lujan Work Phone: [facility] Work Phone: Start: 10-11-2022 End: 10-11-2022 Patient encounter procedure MD Dasha Lujan Work Phone: [facility] Start: 06-10-2022 End: 06-10-2022 ambulatory Reena Breaux Facility:[facility] Start: 01-15-2022 End: 01-15-2022 Office outpatient [...] Date Procedure Procedure Detail Performing Clinician Start: 05-01-2025 Urnls dip stick/tabl et rgnt non-auto w/o micrscp Rosy KRUGER Work Phone: Start: 04-29-2025 US OB BPP W NON-STRESS Rosy KRUGER Work Phone: Start: 04-24-2025 Urnls dip stick/tabl et rgnt [...] Td Vaccines (8 - Td or Tdap) [facility] Start: 07-21-2033 Urine microalbumin profile [facility] Start: 12-11-2027 Screening for malign ant neoplasm of cervix [facility] Start: 03-12-2026 Adult BMI Screening Adult BMI Screen ing [facility] Start: 03-12-2026 Tobacco Screening Tobacco Screening [facility] Start: 02-14-2026 Adult BMI Screening Adult BMI Screen ing [facility] Start: 05-01-2025 End: 05-01-2025 Telemedicine consultation with patient 05/01/2025 9:30 AM EDT Telemedicine Maternal- Medicine at [facility] [address] [place] [address] Marilia Dillon, ROLLER STAINER-CONE RUNNER [address] [place] [address] M[facility]- Medicine at [facility] Start: 05-01-2025 End: 05-01-2025 Patient encounter procedure 05/01/2025 9:20 AM EDT Routine [facility] [address] [place] [id number] Rosy Barton PA [address] [place] [address] [facility] Start: 04-24-2025 End: 04-24-2026 CULTURE, GROUP B STREP WITH SUSCEPTIBLITY CULTURE, GROUP B STREP WITH SUSCEPTIBLITY Lab Routine Third trimester ([facility]) Expected: 04/24/2025, Expires: 04/24/2026 [facility] Work [...] 10:00 AM EDT Telemedicine Maternal- Medicine at [facility] [address] [place] [phone] Daisha Briseno PA-C [address] [facility] [address] [address] M[facility]- Medicine at [facility] Start: 03-27-2025 End: 03-27-2025 Patient encounter procedure [facility] Comment on above: Arrived Start: 03-13-2025 End: 03-13-2025 Patient encounter procedure [facility] Comment on above: Arrived Start: 02-27-2025 End: 02-27-2025 Professional / ancillary services management 02/27/2025 1:00 PM EDT Ancillary Procedure [facility] [address] [place], [place] [address] [place] [phone] [facility] Start: 02-14-2025 End: 02-14-2025 ambulatory 02/14/2025 1:30 PM EDT Support Visit Maternal- Medicine at [facility] [address] [facility] [place] [phone] Hien Giles, RN [address] [facility] [address] [address] Devika Pope, JOEL [address] [place] [address] M[facility]- Medicine at [facility] Start: 02-11-2025 End: 06-13-2025 US for US OB follow up transabdominal approach Imaging Routine H/O gastric sleeve Expected: 02/11/2025, Expires: 06/13/2025 [facility] Work Phone: Comment on above: Expected: 02/11/2025 , Expires: 06/13/2025 Start: 02-11-2025 End: 02-11-2025 Patient encounter procedure 02/11/2025 11:30 AM EDT Routine [facility] [address] [facility] [place] [address] Rosy Barton PA [address] [place] [address] [facility] Start: 01-30-2025 End: 01-30-2025 Professional / ancillary services management 01/30/2025 1:00 PM EDT Ancillary Procedure [facility] [address] [facility] [place] [address] [facility] Start: 01-15-2025 Pap Testing Pap Testing [facility] Start: 01-15-2025 Screening for malign ant neoplasm of cervix Pap Testing [facility] Start: 01-10-2025 End: 01-10-2026 CBC panel - Blood by Automated count CBC Lab Routine Diabetes mellitus screening Expected: 01/10/2025 (Approximate), Expires: 01/10/2026 [facility] Healthcare Work Phone: Comment on above: Expected: 01/10/2025 (Approximate), Expires: 01/10/2026 Start: 01-10-2025 End: 01-10-2026 Measurement of glucose 1 hour after glucose challenge for glucose tolerance test Glucose tolerance, 1 hour Lab Routine Diabetes mellitus screening Expected: 01/10/2025 (Approximate), Expires: 01/10/2026 [facility] Healthcare Comment on above: Expected: 01/10/2025 (Approximate), Expires: 01/10/2026 Start: 01-10-2025 End: 01-10-2025 Patient encounter procedure 01/10/2025 10:10 AM EDT Routine [facility] [address] [place] [phone] Roscoe Diaz, DO [address] [place] [address] [facility] Start: 12-10-2024 End: 01-09-2025 [...] AM EDT Routine [facility] [address] [facility] [place] [phone] Rosy Barton, PA [address] [place] [address] Arrived [facility] Comment on above: Arrived Start: 11-08-2024 End: 11-08-2024 Patient encounter procedure 11/08/2024 10:50 AM EDT Routine [facility] [address] [place] [phone] Roscoe Diaz, DO [address] [place] [address] [facility] Start: 10-18-2024 End: 10-18-2025 ABO/Rh ABO/Rh Lab Routine Missed menses , unspecified gestational age Expected: 10/18/2024 (Approximate), Expires: 10/18/2025 [facility] Healthcare Comment on above: Expected: 10/18/2024 (Approximate), Expires: 10/18/2025 Start: 10-18-2024 End: 10-18-2025 Blood type and Indirect antibody screen panel - Blood Type and screen Lab Routine Missed menses , unspecified gestational age Expected: 10/18/2024 (Approximate), Expires: 10/18/2025 [facility] Healthcare Comment on above: Expected: 10/18/2024 (Approximate), Expires: 10/18/2025 Start: 10-18-2024 End: 10-18-2025 Drugs of abuse panel - Urine by Screen method Rapid drug screen, urine Lab Routine , unspecified gestational age Encounter for supervision of normal first in first trimester Expected: 10/18/2024 (Approximate), Expires: 10/18/2025 [facility] Healthcare Comment on above: Expected: 10/18/2024 (Approximate), Expires: 10/18/2025 Start: 10-18-2024 End: 10-18-2025 US Pelvis transvaginal [facility] Work Phone: Comment on above: Expected: 10/18/2024 , Expires: 10/18/2025 Start: 07-21-2024 Covid-19 Vaccine (#1) Covid-19 Vacci ne (#1) [facility] Comment on above: Postponed from 04/08 (Declined at this time) Start: 07-21-2024 Covid-19 Vaccine ( season) Covid-19 Vaccine ( season) [facility] Comment on above: Postponed from 04/22 (Declined at this time) Start: 04-22-2024 Covid-19 Vaccine ( season) Covid-19 Vaccine ( season) [facility] Start: 04-22-2024 Influenza vaccination Influenza Vacc ine (#1) [facility] Start: 02-19-2024 Influenza vaccination Influenza Vacc ine (#1) [facility] Comment on above: Postponed from 04/22 (Declined at this time) Start: 08-22-2023 Behavioral Health Screening Behavioral Health Screening [facility] Start: 08-22-2023 Depression Assessment Depression Ass essment [facility] Start: 07-21-2023 End: 10-20-2023 CBC W Auto Differential panel - Blood CBC + DIFF Lab Routine Routine adult health maintenance Expected: 07/21/2023, Expires: 10/20/2023 [facility] Work Phone: Comment on above: Expected: 07/21/2023 , Expires: 10/20/2023 Start: 07-21-2023 End: 10-20-2023 Comprehensive metabolic 2000 panel - Serum or Plasma COMP METABOLIC PANEL Lab Routine Routine adult health maintenance Expected: 07/21/2023, Expires: 10/20/2023 [facility] Work Phone: Comment on above: Expected: 07/21/2023 , Expires: 10/20/2023 Start: 07-21-2023 End: 10-20-2023 Hemoglobin A1c in Blood HGB A1C Lab Routine IFG (impaired fasting glucose) Routine adult health maintenance Expected: 07/21/2023, Expires: 10/20/2023 [facility] Work Phone: Comment on above: Expected: 07/21/2023 , Expires: 10/20/2023 Start: 07-21-2023 End: 10-20-2023 Hepatitis B virus surface Ab [Presence] in Serum HEP B SURF AB Lab Routine Immunity status testing Expected: 07/21/2023, Expires: 10/20/2023 [facility] Work Phone: Comment on above: Expected: 07/21/2023 , Expires: 10/20/2023 Start: 07-21-2023 End: 10-20-2023 Lipid 1996 panel - Serum or Plasma LIPID PANEL BASIC Lab Routine Routine adult health maintenance Expected: 07/21/2023, Expires: 10/20/2023 [facility] Work Phone: Comment on above: Expected: 07/21/2023 , Expires: 10/20/2023 Start: 07-06-2023 Hepatitis B Vaccine (1 of 3 - 3-dose series) Hepatitis B Vaccine (1 of 3 - 3-dose series) [facility] Comment on above: Postponed from 10/09 (Declined at this time) Start: 04-22-2023 Influenza vaccination Influenza Vacc ine (#1) [facility] Start: 01-15-2023 Adult depression screening assessment DEPRESSION SCREENING [facility] Start: 01-15-2023 COVID-19 VACCINE (#1) COVID-19 VACCI NE (#1) [facility] Comment on above: Postponed from 10/09 (Declined at this time) Start: 01-15-2023 PAP TESTING PAP TESTING [facility] Start: 01-15-2023 Screening for malign ant neoplasm of cervix Cervical Cancer Screening [facility] Start: 2022 HPV Testing HPV Testing [facility] Start: 2022 Screening for malign ant neoplasm of cervix [facility] Start: 08-22-2022 Depression Assessment Depression Ass essment [facility] Start: 04-22-2022 Influenza vaccination INFLUENZA (Sea son Ended) [facility] Start: 01-15-2022 End: 03-17-2022 Hemoglobin A1c/Hemoglobin.total in Blood [facility] Work Phone: Comment on above: Expected: 01/15/2022 , Expires: 03/17/2022 Start: 2013 Screening for malign ant neoplasm of cervix Pap Smear [facility] Start: 2011 DTaP,Tdap and Td Vaccines (1 - Tdap) DTaP,Tdap and Td Vaccines (1 - Tdap) [facility] Start: 2011 Urine microalbumin profile [facility] Start: 2010 Adult BMI Follow Up Plan Adult BMI Follow Up Plan [facility] Start: 2010 Adult BMI Screening Adult BMI Screen ing [facility] Start: 2010 Anxiety Screening Anxiety Screening [facility] Start: 2010 Depression Screening Depression Scre ening [facility] Start: 2004 Depression Screening Depression Scre ening [facility] Start: 2004 Tobacco Screening Tobacco Screening [facility] Start: 04-08-1993 Covid-19 Vaccine (#1) Covid-19 Vacci ne (#1) [facility] Start: 1992 Hepatitis B Vaccine (1 of 3 - 3-dose series) Hepatitis B Vaccine (1 of 3 - 3-dose series) [facility] Bacteria identified in Urine by Culture Urine culture Microbiology Routine Missed menses Ordered: 10/18/2024 [facility] Comment on above: Ordered: 10/18/2024 CBC W Auto Different ial panel - Blood CBC and differential Lab Routine Missed menses , unspecified gestational age Ordered: 10/18/2024 [facility] Comment on above: Ordered: 10/18/2024 CHLAMYDIA TRACHOMATI S (GENITO/STI) CHLAMYDIA TRACHOMATIS (GENITO/STI) Lab Routine Exposure to STD Ordered: 12/10/2024 [facility] Comment on above: Ordered: 12/10/2024 Cytology Cervical or vaginal smear or scraping study Pap Smear Pathology and Cytology Routine Well woman exam with routine gynecological exam Ordered: 12/10/2024 [facility] Comment on above: Ordered: 12/10/2024 Hemoglobin A1c/Hemoglobin.total in Blood Hemoglobin A1c Lab Routine Missed menses , unspecified gestational age Ordered: 10/18/2024 [facility] Comment on above: Ordered: 10/18/2024 Hepatitis B virus surface Ag [Presence] in Serum or Plasma by Immunoassay Hepatitis B surface antigen Lab Routine Missed menses , unspecified gestational age Ordered: 10/18/2024 [facility] Comment on above: Ordered: 10/18/2024 Hepatitis C virus Ab [Presence] in Serum or Plasma by Immunoassay Hepatitis C antibody Lab Routine Missed menses , unspecified gestational age Ordered: 10/18/2024 [facility] Comment on above: Ordered: 10/18/2024 HIV-1/HIV-2 antigen/antibody combination immunoassay HIV-1 and HIV-2 antibodies Lab Routine Missed menses , unspecified gestational age Ordered: 10/18/2024 [facility] Comment on above: Ordered: 10/18/2024 Human papilloma viru s DNA [Presence] in Unspecified specimen by Probe with amplification HPV DNA probe, amplified Microbiology Routine Well woman exam with routine gynecological exam Ordered: 12/10/2024 [facility] Comment on above: Ordered: 12/10/2024 Neisseria gonorrhoea e DNA [Presence] in Unspecified specimen by ALPA with probe detection Neisseria gonorrhea DNA probe, direct Lab Routine Exposure to STD Ordered: 12/10/2024 [facility] Comment on above: Ordered: 12/10/2024 Reagin Ab [Presence] in Serum by RPR RPR Lab Routine Missed menses , unspecified gestational age Ordered: 10/18/2024 [facility] Comment on above: Ordered: 10/18/2024 Rubella antibody, IgG Rubella an tibody, IgG Lab Routine Missed menses , unspecified gestational age Ordered: 10/18/2024 [facility] Comment on above: Ordered: 10/18/2024 SURESWAB(R) ADVANCED VAGINITIS PLUS, TMA SURESWAB(R) ADVANCED VAGINITIS PLUS, TMA Pathology and Cytology Routine Exposure to STD Ordered: 12/10/2024 [facility] Work Phone: Comment on above: Ordered: 12/10/2024 Thiamine [Moles/volu me] in Blood [facility] Immunizations Immunization Date Immunization Notes Care Provider [facility] 07-21-2023 tetanus toxoid, redu sloane diphtheria toxoid, and acellular pertussis vaccine, adsorbed Berenice Evelyn ROLLER STAINER.CONE RUNNER Work Phone: [facility] 05-03-2011 meningococcal polysaccharide (groups A, C, Y and W-135) diphtheria toxoid conjugate vaccine (MCV4P) Berenice Zepeda ROLLER STAINER.CONE RUNNER Work Phone: [facility] 05-03-2011 tetanus toxoid, redu sloane diphtheria toxoid, and acellular pertussis vaccine, adsorbed Berenice Evelyn ROLLER STAINER.CONE RUNNER Work Phone: [facility] 03-29-2011 human papilloma viru s vaccine, quadrivalent Berenice Evelyn ROLLER STAINER.CONE RUNNER Work Phone: [facility] 11-26-2010 human papilloma viru s vaccine, quadrivalent Berenice Evelyn ROLLER STAINER.[employer]E RUNNER Work Phone: [facility] 09-28-2010 human papilloma viru s vaccine, quadrivalent Berenice Evelyn ROLLER STAINER.CONE RUNNER Work Phone: [facility] 04-30-1998 diphtheria, tetanus toxoids and acellular pertussis vaccine, unspecified formulation Berenice Evelyn ROLLER STAINER.[employer]E RUNNER Work Phone: [facility] 04-30-1998 measles, mumps and rubella virus vaccine Berenice Evelyn ROLLER STAINER.[employer]E RUNNER Work Phone: [facility] 04-30-1998 trivalent poliovirus vaccine, live, oral Berenice Evelyn ROLLER STAINER.[employer]E RUNNER Work Phone: [facility] 06-07-1994 diphtheria, tetanus toxoids and acellular pertussis vaccine, unspecified formulation Berenice Evelyn ROLLER STAINER.[employer]E RUNNER Work Phone: [facility] 06-07-1994 hepatitis B vaccine, pediatric or pediatric/adolescent dosage Berenice Evelyn ROLLER STAINER.[employer]E RUNNER Work Phone: [facility] 06-07-1994 trivalent poliovirus vaccine, live, oral Berenice Evelyn ROLLER STAINER.[employer]E RUNNER Work Phone: [facility] 03-01-1994 haemophilus influenz ae type b vaccine, conjugate unspecified formulation Berenice Evelyn ROLLER STAINER.[employer]E RUNNER Work Phone: [facility] 03-01-1994 hepatitis B vaccine, pediatric or pediatric/adolescent dosage Berenice Evelyn ROLLER STAINER.[employer]NER Work Phone: [facility] 03-01-1994 measles, mumps and rubella virus vaccine Berenice Evelyn ROLLER STAINER.[employer]E [employer]NER Work Phone: [facility] 07-27-1993 diphtheria, tetanus toxoids and pertussis vaccine Berenice Evelyn ROLLER STAINER.[employer]NER Work Phone: [facility] 07-27-1993 haemophilus influenz ae type b vaccine, conjugate unspecified formulation Berenice Evelyn ROLLER STAINER.[employer]E [employer]NER Work Phone: [facility] 07-27-1993 hepatitis B vaccine, pediatric or pediatric/adolescent dosage Berenice Evelyn ROLLER STAINER.CONE RUNNER Work Phone: [facility] 03-16-1993 diphtheria, tetanus toxoids and pertussis vaccine Berenice Evelyn ROLLER STAINER.CONE RUNNER Work Phone: [facility] 03-16-1993 haemophilus influenz ae type b vaccine, conjugate unspecified formulation Berenice Evelyn ROLLER STAINER.CONE RUNNER Work Phone: [facility] 03-16-1993 trivalent poliovirus vaccine, live, oral Beernice Evelyn ROLLER STAINER.CONE RUNNER Work Phone: [facility] 1992 diphtheria, tetanus toxoids and pertussis vaccine Berenice Evelyn ROLLER STAINER.CONE RUNNER Work Phone: [facility] 1992 haemophilus influenz ae type b vaccine, conjugate unspecified formulation Berenice Evelyn ROLLER STAINER.CONE RUNNER Work Phone: [facility] 1992 trivalent poliovirus vaccine, live, oral Berenice Evelyn ROLLER STAINER.CONE RUNNER Work Phone: [facility] Payers Date Payer Category Payer [facility] [id number] [id number] 2023 Unknown [id number] 2023 Private Health Insurance [employer] [id number] 2023 Unknown [id number] 2022 Self-pay 2022 Unknown [id number] 2019 [facility] Managed Care - Other [id number]. [id number] 2019 Unknown [employer] PPO OOS [id number] 2019-Present [phone] [address] [place] [address] PPO [id number]. [id number] 2019 Unknown [id number]. 1.13.159.2. [id number] 1992 Unknown [id number] 2.16.840.1.082057.3.579.2. 1286 1992 Unknown [id number] 2.16.840.1.249058.3.579.2. 1286 1992 Unknown [id number] 2.16.840.1.937659.3.579.2. 1286 1992 Unknown [id number] 2.16840.1.158904.3.579.2. 9 1992 Unknown [id number] 2.16.840.1.095018.3.579.2. 9 1992 Unknown [id number] 2.16.840.1.445997.3.579.2. 9 1992 Unknown [id number] 2.16.840.1.865581.3.579.2. 9 1992 Unknown [id number] 2.16.840.1.476458.3.579.2. 9 1992 Unknown [id number] 2.16.840.1.509376.3.579.2. 1259 1992 Unknown [id number] 2.16.840.1.297436.3.579.2. 9 1992 Unknown [id number] 2.16.840.1.128205.3.579.2. 9 1992 Unknown [id number] 2.16.840.1.156659.3.579.2. 9 1992 Unknown [id number] 2.16.840.1.646607.3.579.2. 1259 1992 Unknown [id number] 2.16.840.1.954698.3.579.2. 1259 1992 Unknown [id number] 2.16.840.1.859728.3.579.2. 1259 1992 Unknown [id number] 2.16.840.1.698825.3.579.2. 1259 1992 Unknown [id number] 2.16.840.1.026858.3.579.2. 1259 1992 Unknown [id number] 2.16.840.1.638273.3.579.2. 1259 1992 Unknown [id number] 2.16.840.1.726182.3.579.2. 1259 Unknown [id number] 2.16.840.1.152913.3.579.2. 531 Unknown [id number] 2.16.840.1.965071.3.579.2. 531 Social History Date Type Detail Facility Tobacco smoking stat us PAIS Tobacco smoking consumption unknown [facility] Start: 1990 Sex Assigned At Not on file [facility] Start: 01-15-2022 End: 02-07-2025 Tobacco smoking status PAIS Never smoked tobacco [facility] Start: 01-15-2022 End: 02-07-2025 Tobacco use and exposure Smokeless tobacco non-user [facility] Start: 01-15-2022 End: 08-23-2023 Alcohol intake Current drinker of alcohol (finding) [facility] Start: 01-31-2019 End: 01-15-2022 Alcohol intake [facility] Start: 01-12-2022 History SDOH Alcohol Frequency 2 [facility] Start: 01-12-2022 History SDOH Alcohol Std Drinks 1 [facility] Start: 01-15-2022 History SDOH Alcohol Comment occ. drink [facility] Start: 01-12-2022 History SDOH Social Connections Phone 5 [facility] Start: 01-12-2022 History SDOH Social Connections Get Together 4 [facility] Start: 01-12-2022 History SDOH Social Connections Living 7 [facility] Start: 01-12-2022 History SDOH Physical Activity MPS 3 [facility] Start: 1990 Sex Assigned At Female [facility] Start: 01-31-2019 End: 01-12-2022 Social connection and isolation panel [facility] Do you belong to any clubs or organizations such as jehovah's witness groups, unions, fraternal or athletic groups, or school groups? No [facility] Are you now , , , , never or living with a partner? Never [facility] How often to you hav e a drink containing alcohol? Monthly or less [facility] How many standard dr inks containing alcohol do you have on a typical day? 1 or 2 [facility] How often do you hav e 6 or more drinks on 1 occasion? Never [facility] How hard is it for y ou to pay for the very basics like food, housing, medical care, and heating Not hard at all [facility] Do you feel stress - tense, restless, nervous, or anxious, or unable to sleep at night because your mind is troubled all the time - these days [OSQ] Not at all [facility] (I/We) worried delbert er (my/our) food would run out before (I/we) got money to buy more. Never true [facility] Start: 01-12-2022 Gender identity Identifies as female gender (finding) [facility] Are you now , , , , never or living with a partner? Living with partner [facility] How hard is it for y ou to pay for the very basics like food, housing, medical care, and heating Not very hard [facility] Do you feel stress - tense, restless, nervous, or anxious, or unable to sleep at night because your mind is troubled all the time - these days [OSQ] To some extent [facility] The food that (I/we) bought just didn't last, and (I/we) didn't have money to get more. DK or Refused [facility] Start: 10-17-2023 End: 03-12-2025 Alcoholic beverage intake [facility] Start: 10-17-2023 Alcohol Comment Caffeine intake: 1cup coffee/ day [facility] Start: 09-14-2023 [facility] Start: 04-22-2015 Sex Female (finding) [facility] Medical Equipment Procedure Code Equipment Code Equipment Origin al Text Equipment Identifier Dates 1 strip by In Vi tro route Daily Use in the morning prior to breakfast, 1 hour after each meal for a total of 4times daily. [id number] Start: 02-04-2025 End: 03-06-2025 1 each by In Vit ro route Daily Use to check FSBS four times daily [id number] Start: 02-04-2025 End: 03-06-2025 Use to inject insulin nightly [id number] Start: 03-12-2025 Goals Date Patient Goal Desired Activity /State Personal health goal Clinical Notes 01-08-2022 to 05-01-2025 Adelaida Dugan, DESK CLERKS SUPERVISOR - 05/01/2025 9:20 AM EDJenni Dillon, ROLLER STAINER-CONE RUNNER - 05/01/2025 8:00 AM Aldo King, CUSTOMER SERVICE REPRESENTATIVE TEACHER - 04/24/2025 11:30 AM EDTTelephone Encounter - Devika Pope, LD - 04/23/2025 12:38 PM EDT Note Date & Type Note Facility 05-01-2025 History of Present illness Narrative Reason for [...] nursing note reviewed. Exam conducted with a bowling ball engraver present. Vitals: Estimated body mass index is 38.11 kg/m as calculated from the following: Height as of 07/25/24: 5' 3 . Weight as of this encounter: 215 lb 1.9 oz. BP: 110/60 Patient's last menstrual period was 08/12/2024. ASSESSMENT & PLAN ICD-10-CM 1. 37 weeks gestation of ([facility]) Z3A.37 POCT urinalysis dipstick manually resulted 2. Third trimester ([facility]) Z34.93 POCT urinalysis dipstick manually resulted 3. H/O gastric sleeve Z90.3 4. Insulin controlled gestational diabetes mellitus (GDM) during , antepartum ([facility]) O24.414 Return OB: Patient presents [...] of: SLICK Matias documented in this encounter [facility] 05-01-2025 History of Present illness Narrative REASON FOR OFFICE VISIT: Video Visit via Real-time Synchronous Audiovisual Provider Location: [facility] AT [address] [phone] Patient Location: Patient's home Video Visit Consent Statement: I discussed risks, benefits, and alternatives of a real-time synchronous audiovisual consultation with the patient (and any accompanying persons) including the risks that the patient's personal health details and medical records will be discussed over real-time, synchronous, interactive video/audio/telecommunication technology, the visit will not be recorded without the express consent of both the provider and the patient, and that there are some limitations compared to [id number] evaluations. The patient consented to the presence of additional virtual and/or in-person participants. We elected to proceed. 1. GDMA2; A1c 5.1% HISTORY OF PRESENT ILLNESS: Caryl Zamarripa is a pleasant 34 y.o. at 37w3d due on Estimated Date of Delivery: 05/19/25. Currently the patient has no complaints. The patient denies CUELLAR, nausea, vomiting, abdominal pain, vaginal bleeding, contractions, leaking fluid or chest pain. +. She is being followed at [facility] due to GDMA2. States she is [...] nightly, Disp: 100 each, Rfl: 2 25-IRON [id number] ORAL, Take 1 tablet by mouth in the morning., Disp: , Rfl: LABS: No results found for: GLUF , MICROALBUR , LDLCALC , CREATININE No results found for: TSH , T3 , TOTALT4 , THYROIDAB No results found for: MSZCZOSWD30 No results found for: CREATININE , BUN [...] by e-mail to: or by fax to: [phone] TIME OF CONSULTATION: 20 minutes with the patient, >50% in discussion and counseling, coordination of care which was [id number], review of records and communication back to referring provider. BRIE Farias 05/01/25 0817 documented in this encounter [facility] 04-24-2025 History of Present illness Narrative Reason for Appointment: Patient ID: Caryl Zamarripa is a 34 y.o. female who presents for Routine Visit Patient presents today for Return OB appointment. MEDICATIONS Current Outpatient Medications Medication Instructions Alcohol Swabs (Alcohol Prep Pad) 70 % pads 1 Pad, Topical, Daily, Use four times daily to check FSBS. aspirin 81 mg, Daily Blood Glucose Monitoring Suppl (The Whoot Glucometer) w/Device kit 1 kit, Does not [...] nursing note reviewed. Exam conducted with a bowling ball engraver present. Vitals: Estimated body mass index is 37.22 kg/m as calculated from the following: Height as of 24: 5' 3 . Weight as of this encounter: 210 lb 1.9 oz. BP: 116/74 Patient's last menstrual period was 08/12/2024. ASSESSMENT & PLAN ICD-10-CM 1. Third trimester ([facility]) Z34.93 POCT urinalysis dipstick manually resulted CULTURE, GROUP B STREP WITH SUSCEPTIBLITY CULTURE, GROUP B STREP WITH SUSCEPTIBLITY 2. 36 weeks gestation of ([facility]) Z3A.36 POCT urinalysis dipstick manually resulted Patient [...] Roscoe Diaz DO documented in this encounter [facility] 04-23-2025 Miscellaneous Notes Called regarding blood sugar logs from 04/15/25-04/21/25 but received voicemail. Crayl had two elevated blood sugars after lunch [...] blood sugars weekly. documented in this encounter [facility] 04-23-2025 Telephone encounter Note Called regarding blood [...] sugars and send in blood sugars weekly. [facility] Work Phone: 04-15-2025 Miscellaneous Notes Received BG results and all are in target range. Called and left message of praise for all efforts and to call if questions. To send next week again. No changes. documented in this encounter [facility] 04-15-2025 Telephone encounter Note Received BG results and all are in target range. Called and left message of praise for all efforts and to call if questions. To send next week again. No changes. [facility] 04-10-2025 History of Present illness Narrative Reason [...] nursing note reviewed. Exam conducted with a bowling ball engraver present. Vitals: Estimated body mass index is 37.22 kg/m as calculated from the following: Height as of 24: 5' 3 . Weight as of this encounter: 210 lb 1.9 oz. BP: 120/70 Patient's last menstrual period was 08/12/2024. ASSESSMENT & PLAN ICD-10-CM 1. 34 weeks gestation of ([facility]) Z3A.34 POCT urinalysis dipstick manually resulted 2. Third trimester ([facility]) Z34.93 POCT urinalysis dipstick manually resulted 3. H/O gastric sleeve Z90.3 4. Insulin controlled gestational diabetes mellitus (GDM) during , antepartum ([facility]) O24.414 Return OB: Patient presents [...] Roscoe Diaz DO documented in this encounter [facility] 04-09-2025 Miscellaneous Notes Called regarding blood sugar logs from 04/01/2025-04/07/2025 but the call went straight to voicemail. She had 4 elevated post prandial blood sugars, no pattern, but she did note that they were most likely related to higher carbohydrate meals. Continue with 10 units of Lantus and sending blood sugars weekly. Reminded to schedule a follow-up visit with a [facility] provider for the second week in April. documented in this encounter [facility] 04-09-2025 Telephone encounter Note Called regarding blood sugar logs from 04/01/2025-04/07/2025 but the call went straight to voicemail. She had 4 elevated post prandial blood sugars, no pattern, but she did note that they were most likely related to higher carbohydrate meals. Continue with 10 units of Lantus and sending blood sugars weekly. Reminded to schedule a follow-up visit with a [facility] provider for the second week in April. [employer] Work Phone: 04-01-2025 Miscellaneous Notes Left message for patient to call [facility] back to reschedule a 4 week video visit shobha Marr. documented in this encounter [facility] 04-01-2025 Telephone encounter Note Left message for patient to call [facility] back to reschedule a 4 week video visit shobha Marr. [facility] 04-01-2025 History of Present illness Narrative Maternal- [...] nightly, Disp: 100 each, Rfl: 2 25-IRON [id number] ORAL, Take 1 tablet by mouth in [...] Delivery recommendations : - Recommend delivery at [id number] - reviewed with pateint - Discuss delivery [...] values to us weekly by e-mail to: [email or web address] or by fax to: [phone] Daisha Briseno PA-C Maternal- Medicine Office phone: [phone] Daisha Briseno PA-C 04/01/25 1331 documented in this encounter [facility] 04-01-2025 Miscellaneous Notes Left message to remind patient of video visit today at 10 AM. Call back number given to reschedule if unable to keep appointment. documented in this encounter [facility] 04-01-2025 Telephone encounter Note Left message to remind patient of video visit today at 10 AM. Call back number given to reschedule if unable to keep appointment. [facility] 03-27-2025 History of Present illness Narrative Reason [...] nursing note reviewed. Exam conducted with a bowling ball engraver present. Vitals: Estimated body mass index is 36.28 kg/m as calculated from the following: Height as of 07/25/24: 5' 3 . Weight as of this encounter: 204 lb 12.8 oz. BP: 116/72 Patient's last menstrual period was 08/12/2024. ASSESSMENT & PLAN ICD-10-CM 1. Third trimester [facility] Z34.93 POCT urinalysis dipstick manually resulted 2. H/O gastric sleeve Z90.3 POCT urinalysis dipstick manually resulted 3. Gestational diabetes mellitus (GDM), antepartum, gestational diabetes method of control unspecified ([facility]) O24.419 POCT urinalysis dipstick manually resulted 4. 32 weeks gestation of ([facility]) Z3A.32 POCT urinalysis dipstick manually resulted Return [...] appointment. Patient continues to send FSBS to [facility] and doing well and [facility] continues to manage her Lantus dosing. She will begin NST/ BPP this week. Documented by Adelaida Dugan NP on behalf of: Roscoe Diaz DO documented in this encounter [facility] 03-26-2025 Miscellaneous Notes Called regarding blood sugar logs from 03/18/2025-03/24/2025 but received voicemail. Caryl had one elevated fasting blood sugar ( she may not of had a snack the night before) and three elevated blood sugars after dinner. She is taking 10 units of Lantus in the evening. Will send a [employer] message. documented in this encounter [facility] 03-26-2025 Telephone encounter Note Called regarding blood sugar logs from 03/18/2025-03/24/2025 but received voicemail. Caryl had one elevated fasting blood sugar ( she may not of had a snack the night before) and three elevated blood sugars after dinner. She is taking 10 units of Lantus in the evening. Will send a MyChart message. [employer] Work Phone: 03-19-2025 Miscellaneous Notes Blood glucose [...] now in target. documented in this encounter [facility] 03-19-2025 Telephone encounter Note Blood glucose log from 03/11/25 to 03/17/25 received. Patient did not answer. I left a voicemail asking her to check for a new MyChart message that I am going to leave with questions about her dinner values (4 out of 7 were still elevated). Patient started Lantus on 03/12/25 and all fasting BG now in target. [facility] 03-13-2025 History of Present illness Narrative Reason [...] PLAN ICD-10-CM 1. 30 weeks gestation of ([facility]) Z3A.30 POCT urinalysis dipstick manually resulted 2. Third trimester ([facility]) Z34.93 POCT urinalysis dipstick manually resulted 3. H/O gastric sleeve Z90.3 4. Gestational diabetes mellitus (GDM), antepartum, gestational diabetes method of control unspecified ([facility]) O24.419 Return OB: Patient presents [...] of: SLICK Matias documented in this encounter [facility] 03-12-2025 History of Present illness [...] nausea or vomiting., Disp: , Rfl: 25-IRON [id number] ORAL, Take 1 tablet by mouth in [...] more likely to fail compared to insulin. termite inspector data on children whose mothers took oral [...] Delivery recommendations : - Recommend delivery at [id number] - reviewed with pateint - Discuss delivery [...] values to us weekly by e-mail to: [email or web address] or by fax to: [phone] Daisha Briseno PA-C Maternal- Medicine Office phone: [phone] Daisha Briseno PA-C 03/12/25 1500 Summary: MFM [...] time 10 minutes. documented in this encounter [facility] 03-05-2025 Miscellaneous Notes Called regarding blood sugar logs from 02/25/2025-03/03/2025 but the call went directly to voicemail. Caryl had 1 one elevated fasting blood sugar, 1 elevated blood sugar after breakfast, one elevated blood sugar after lunch, and 4 elevated blood sugars after dinner. Will send a [employer] message. documented in this encounter [facility] 03-05-2025 Telephone encounter Note Called regarding blood sugar logs from 02/25/2025-03/03/2025 but the call went directly to voicemail. Cayrl had 1 one elevated fasting blood sugar, 1 elevated blood sugar after breakfast, one elevated blood sugar after lunch, and 4 elevated blood sugars after dinner. Will send a MyChart message. [facility] Work Phone: 02-27-2025 History of Present illness Narrative Reason for Appointment: Patient ID: Caryl Zamarripa is a 34 y.o. female who presents for Routine Visit Patient presents today for Return OB appointment. MEDICATIONS Current Outpatient Medications Medication Instructions Alcohol Swabs (Alcohol Prep Pad) 70 % pads 1 Pad, Topical, Daily, Use four times daily to check FSBS. Blood Glucose Monitoring Suppl ([employer] Glucometer) w/Device kit 1 kit, Does not [...] nursing note reviewed. Exam conducted with a bowling ball engraver present. Vitals: Estimated body mass index is 36.1 kg/m as calculated from the following: Height as of 24: 5' 3 . Weight as of this encounter: 203 lb 12.8 oz. BP: 110/60 Patient's last menstrual period was 08/12/2024. ASSESSMENT & PLAN ICD-10-CM 1. 28 weeks gestation of ([facility]) Z3A.28 POCT urinalysis dipstick manually resulted 2. Third trimester ([facility]) Z34.93 POCT urinalysis dipstick manually resulted 3. H/O gastric sleeve Z90.3 4. Gestational diabetes mellitus (GDM), antepartum, gestational diabetes method of control unspecified ([facility]) O24.419 Return OB: Patient presents today for [...] Roscoe Diaz DO documented in this encounter [facility] 02-26-2025 Miscellaneous Notes Called regarding [...] a MyChart message. documented in this encounter [facility] 02-26-2025 Telephone encounter Note Called regarding blood [...] questions. Will also send a MyChart message. [employer] Work Phone: 02-14-2025 Group counseling note Patient: [...] of food logs and blood glucoses to [email or web address], next Tuesday/Tuesday morning. Please refer to health habits for other goals. Breakfast 6-6:30 AM 15-25 grams of CHO, Snack 9 AM 15-30 grams of CHO, Lunch 11:30-Noon 45 grams of CHO, Snack 2-3 PM 15-30 grams of CHO, Dinner 6 PM 45 grams of CHO, HS Snack 8-9 PM 15-30 grams of CHO. Face to face time was 70 minutes. [employer] Work Phone: 02-14-2025 Miscellaneous Notes Patient: [...] of food logs and blood glucoses to [email or web address], next Tuesday night/Tuesday morning. Please refer to [...] was 70 minutes. documented in this encounter [facility] 02-11-2025 History of Present illness Narrative Reason for Appointment: Patient ID: Carly Zamarripa is a 34 y.o. female who presents for Routine Visit Patient presents today for Return OB appointment. MEDICATIONS Current Outpatient Medications Medication Instructions Alcohol Swabs (Alcohol Prep Pad) 70 % pads 1 Pad, Topical, Daily, Use four times daily to check FSBS. Blood Glucose Monitoring Suppl (The Whoot Glucometer) w/Device kit 1 kit, Does not [...] nursing note reviewed. Exam conducted with a bowling ball engraver present. Vitals: Estimated body mass index is 35.87 kg/m as calculated from the following: Height as of 24: 5' 3 . Weight as of this encounter: 202 lb 8 oz. BP: 110/60 Patient's last menstrual period was 08/12/2024. ASSESSMENT & PLAN ICD-10-CM 1. Second trimester ([facility]) Z34.92 POCT urinalysis dipstick manually resulted 2. 26 weeks gestation of ([facility]) Z3A.26 3. H/O gastric sleeve [...] Adelaida Dugan NP documented in this encounter [facility] 01-10-2025 History of Present illness [...] nursing note reviewed. Exam conducted with a bowling ball engraver present. Vitals: Estimated body mass index is [...] Roscoe Diaz DO documented in this encounter [facility] 12-10-2024 History of Present illness [...] nursing note reviewed. Exam conducted with a bowling ball engraver present. Vitals: Estimated body mass index is [...] at this visit. Pt was given the Green Clean order and advised she will have to [...] of: SLICK Matias documented [facility] [facility] 11-[facility]24 History of Present illness [...] Roscoe Diaz DO documented in this encounter [facility] 10-18-2024 History of Present illness [...] or undercooked meat, and stay away from [facility]. Patient has also been advised to [...] Monika Mesa LPN documented in this encounter [facility] 08-02-2024 History of Present illness Narrative Images from the original note were not included. [address] , [address] [facility], [address] P: [phone] F: [phone] HPI Historian of HPI: patient Caryl Zamarripa [...] Left Turbinates: Enlarged and swollen. Mouth/Throat: Lips: [place]ipp[place]. Mouth: Mucous membranes are moist. Pharynx: Oropharynx [...] tablet; Refill: 0 documented in this encounter [facility] 07-25-2024 History of Present illness [...] Use: Not At Risk (07/19/2023) Received from [facility] AUDIT-C Frequency of Alcohol Consumption: Monthly or less Average Number of Drinks: 1 or 2 Frequency of Binge Drinking: Never Depression: Not at risk (06/29/2024) Received from [facility] PHQ-2 PHQ-2 score: 0 Physical Activity: Insufficiently Active (07/19/2023) Received from [facility] Exercise Vital Sign Days of Exercise [...] as needed for discomfort/pain Thank you, Alexandro Jain DO documented in this encounter [facility] 06-29-2024 Note HNO ID: [id number] Author: BERENICE ZEPEDA APRN.CONE RUNNER Service: ? Author Type: Nurse Practitioner Type: [...] - PHENTERMINE 37.5 MG TABLET Berenice Zepeda APRN.[facility] 06-29-2024 History of Present illness Narrative Caryl [...] PHENTERMINE 37.5 MG TABLET Berenice Zepeda APRN.GIORGI documented in this encounter [facility] 03-06-2024 Telephone encounter Note Order formatted Please advise [facility] 03-06-2024 Miscellaneous Notes Order formatted Please advise documented in this encounter [facility] 09-23-2023 Note HNO ID: [id number] Author: BERENICE ZEPEDA APRN.CNP Service: ? Author Type: Nurse Practitioner Type: Progress Notes Filed: 09/23/2023 15:52 Note Text: VIRTUAL VISIT PROGRESS NOTE This is a virtual visit using Metrekare[employer] Video Visit. It required patient-provider interaction for the medical decision making as documented below. I have communicated my name and active licensure. The patient's identity and physical location were verified at the time of this visit. Either the patient or their legal sales representative wire rope has been informed of the risks and [...] Outpatient Medications Medication Sig Omeprazole Magnesium (ACID DEMI CHEF, OMEPRAZOLE,) 20 mg cpDR No current facility-administered [...] on file for this visit. Berenice Zepeda APRN.[facility] 09-23-2023 History of Present illness Narrative VIRTUAL VISIT PROGRESS NOTE This is a virtual visit using Pyreost Zoom Video Visit. It required patient-provider interaction for the medical decision making as documented below. I have communicated my name and active licensure. The patient's identity and physical location were verified at the time of this visit. Either the patient or their legal sales representative wire rope has been informed of the risks and [...] Outpatient Medications Medication Sig Omeprazole Magnesium (ACID DEMI CHEF, OMEPRAZOLE,) 20 mg cpDR No current facility-administered [...] Berenice Zepeda APRN.GIORGI documented in this encounter [facility] 08-23-2023 Note HNO ID: [id number] Author: BERENICE ZEPEDA APRN.CNP Service: ? Author [...] - PHENTERMINE 37.5 MG TABLET Berenice Zepeda APRN.CONE RUNNER [facility] 07-21-2023 Note HNO ID: [id number] Author: Berenice Zepeda APRN.GIORGI Service: ? Author Type: Nurse Practitioner Type: Progress Notes Filed: 07/22/2023 10:16 AM Note Text: Caryl Zamarripa is a 32 year old female here today for review of established medical problems as well as comprehensive physical examination. Obesity S/p gastric sleeve surgery in 03/2022 at [facility] in [place] Down about 70lb, has reached plateau Gym 4 days per week with cardio (treadmill, elliptical) Maybe not enough water Tries to focus on more protein, lower carbs Last 10 Encounter Wt Readings: Date: Wt: 07/21/2023 80.1 kg (176 lb 8 oz) 07/06/2022 81.6 kg (180 lb) 01/15/2022 104.3 kg (230 lb) [facility] control HM needs: Hepatitis B Vaccine(1 of 3 - 3-dose series) Never done Depression Assessment Never done HPV Testing Never done PAST MEDICAL HISTORY Diagnosis Date GERD (gastroesophageal reflux disease) Prediabetes PAST SURGICAL HISTORY Procedure Laterality Date PT ED BARIATRIC AND METABOLIC gastric sleeve 03/2022 ALLERGIES Patient has no known allergies. MEDICATIONS Omeprazole Magnesium (ACID DEMI CHEF, OMEPRAZOLE,) 20 mg cpDR Phentermine HCl 37.5 [...] No history of dysuria, frequency or incontinence PLANNING AIDE: Negative for abnormal vaginal bleeding, abnormal vaginal [...] and symmetric. Sensation grossly intact. Breast/Pelvic: Per PLANNING AIDE ASSESSMENT/PLAN: 1. Routine adult health maintenance - ICD9: V70.0, ICD10: Z00.00 (primary diagnosis) - Counseled on healthy diet and regular exercise - Calcium intake with supplements or by diet of 1000 mg/day for under 50, 9274-1746 mg/day for 50+ - Discussed need and [...] comorbidity present - (more content not included)... [facility] 07-21-2023 History of Present illness Narrative Caryl Zamarripa is a 32 year old female here today for review of established medical problems as well as comprehensive physical examination. Obesity S/p gastric sleeve surgery in 03/2022 at [facility] in [place] Down about 70lb, has reached plateau Gym 4 days per week with cardio (treadmill, elliptical) Maybe not enough water Tries to focus on more protein, lower carbs Last 10 Encounter Wt Readings: Date: Wt: 07/21/2023 80.1 kg (176 lb 8 oz) 07/06/2022 81.6 kg (180 lb) 01/15/2022 104.3 kg (230 lb) PLANNING AIDE in [facility] Implanted control HM needs: Hepatitis B Vaccine(1 of 3 - 3-dose series) Never done Depression Assessment Never done HPV Testing Never done PAST MEDICAL HISTORY Diagnosis Date GERD (gastroesophageal reflux disease) Prediabetes PAST SURGICAL HISTORY Procedure Laterality Date PT ED BARIATRIC AND METABOLIC gastric sleeve 03/2022 ALLERGIES Patient has no known allergies. MEDICATIONS Omeprazole Magnesium (ACID DEMI CHEF, OMEPRAZOLE,) 20 mg cpDR Phentermine HCl 37.5 [...] No history of dysuria, frequency or incontinence PLANNING AIDE: Negative for abnormal vaginal bleeding, abnormal vaginal [...] and symmetric. Sensation grossly intact. Breast/Pelvic: Per PLANNING AIDE ASSESSMENT/PLAN: 1. Routine adult health maintenance - ICD9: V70.0, ICD10: Z00.00 (primary diagnosis) - Counseled on healthy diet and regular exercise - Calcium intake with supplements or by diet of 1000 mg/day for under 50, 0774-9429 mg/day for 50+ - Discussed need and [...] - HEP B SURF AB Berenice Zepeda APRN.[employer]E RUNNER ' documented in this encounter [facility] 06-29-2023 Miscellaneous Notes Sent Valtrex 1 gram twice/day for 2 days with one refill. High stress can cause cold sores? How is your stress level? documented in this encounter [facility] 01-15-2022 Instructions Dasha Lujan MD - 01/15/2022 12:05 PM EDT -Get Hgba1c and K level checked in the near future. -Encourage you to lose 2 lbs/week as a healthy way via diet and exercise -Should you have any questions or concerns, do not hesitate to contact me anytime via my chart (Dr.Sunir Lujan) documented in this encounter [facility] 01-15-2022 History of Present illness Narrative Caryl Zamarripa is a 31 year old female who presents with Establish Care -Pt is here to Establish Care. 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 Says all labs checked out fine per pt discussion. Pt says she did get her thyroid lab work checked 4 years ago, and all checked out fine. Thyroid blood work was also checked recently. -OARRS reviewed: clean -Secretary To The Vice President: deferred seeing one at this time as pt is undergoing gastric sleeve evaluation (Bariatric Surgery) at [facility]. Pt says that she just [...] process to get Bariatric Surgery done at [facility]. (R73.9) Blood glucose elevated Plan: HGB A1C (E87.5) Hyperkalemia Plan: POTASSIUM BLD -Will have her get K level rechecked. (K76.0) Hepatic steatosis -LFT were normal. -Encourage weight reduction and avoid alcohol and tylenol as much as possible. -Will continue to monitor LFT. Dasha Lujan MD documented in this encounter [facility] 01-08-2022 Miscellaneous Notes Will advise on Tuesday when he returns Patient calling stating Dr Lujan agreed to take her into his practice but no documentation found in patient chart. Please advise. documented in this encounter [facility] Evaluation note Diagnosis Preoperative clearance- Primary Preoperative examination, unspecified Obesity (BMI 30-39.9) Obesity, unspecified Blood glucose elevated Other abnormal glucose Hyperkalemia Hyperpotassemia Hepatic steatosis Other chronic nonalcoholic liver disease [facility] noteNo assessment information availableMercy [facility] Work Phone: Evaluation note* Diagnosis Routine [...] Antibody response examination [facility] Diagnosis Encounter for weight management Overweight (BMI 25.0-29.9) Overweight [facility] Diagnosis Encounter for weight management- Primary Overweight [facility] Diagnosis Rectal bleeding- Primary Hemorrhage of rectum and anus documented in this encounter [facility]* Diagnosis Acute cough- Primary Chest congestion Other symptoms involving respiratory system and chest Bronchitis Bronchitis, not specified as acute or chronic documented in this encounter [facility] note* Diagnosis Missed menses , unspecified gestational age Encounter for supervision of normal first in first trimester Nausea and vomiting in Unspecified vomiting of , unspecified as to episode of care documented in this encounter [facility] note* Diagnosis 12 weeks gestation of documented in this encounter [facility] note* Diagnosis Well woman exam with routine gynecological exam Routine gynecological examination Second trimester state, incidental 17 weeks gestation of Exposure to STD Need for maternal serum alpha-protein (MSAFP) screening Screening, , for anatomic survey Encounter for anatomic survey documented in this encounter [facility] Healthcare[facility] note* Diagnosis 21 weeks gestation of Second trimester state, incidental Diabetes mellitus screening Screening for diabetes mellitus documented in this encounter [facility] note* Diagnosis Second trimester (HHS-HCC) state, incidental 26 weeks gestation of (HHS-HCC) H/O gastric sleeve documented in this encounter [facility] note* Diagnosis Gestational diabetes mellitus (GDM) in second trimester, gestational diabetes method of control unspecified- Primary documented in this encounter [facility]* Diagnosis 28 weeks gestation of [...] episode of care documented in this encounter [facility]* Diagnosis 30 weeks gestation of (HHS-HCC) Third trimester (HHS-HCC) state, incidental H/O gastric sleeve Gestational diabetes mellitus (GDM), antepartum, gestational diabetes method of control unspecified (HHS-HCC) documented [facility] encounter [facility]* Diagnosis Gestational diabetes requiring insulin- Primary Abnormal maternal glucose tolerance, complicating , childbirth, or the puerperium, unspecified as to episode of care documented in this encounter [facility]* Diagnosis Third trimester [...] episode of care documented in this encounter [facility]* Diagnosis 37 weeks gestation of (HHS-HCC) Third trimester (HHS-HCC) state, incidental H/O gastric sleeve Insulin controlled gestational diabetes mellitus (GDM) during , antepartum (HHS-HCC) documented [facility] encounter [facility]* Diagnosis Gestational diabetes requiring insulin Abnormal maternal glucose tolerance, complicating , childbirth, or the puerperium, unspecified as to episode of care [facility] filedocumented in this [facility] filedocumented in this encounter [facility] filedocumented in this [facility] on filedocumented in this [facility] on filedocumented in this [facility] filedocumented in this encounter [facility] Summary Purpose Family History No Family [...] unspecified whether serious comorbidity present Berenice Zepeda APRN.[employer]E RUNNER [address] [place] [address] Referral ID Status Reason Start Date Expiration Date Visits Re quested Visits Authorized [id number] Closed 1 1 Specialty Diagnoses / Procedures Referred By Zachery kenyon Referred To Contact Diagnoses Encounter for weight management Overweight (BMI 25.0-29.9) Berenice Zepeda APRN.CONE RUNNER [address] [place] [address] Referral ID Status Reason Start Date Expiration Date Visits Re quested Visits Authorized [id number] Closed 1 1 Additional Source Comments Source Comments (unrecognize d section and content) In the event this informatio n is protected by the Federal Confidentiality of Alcohol and Drug Abuse Patient Records regulations: The Federal rules restrict any use of the information to criminally investigate or prosecute any alcohol or drug abuse patient.[facility] the event this information is protected by the Federal Confidentiality of Alcohol and Drug Abuse Patient Records regulations: The Federal rules restrict any use of the information to criminally investigate or prosecute any alcohol or drug abuse patient.[facility] the event this information is protected by the Federal Confidentiality of Alcohol and Drug Abuse Patient Records regulations: The Federal rules restrict any use of the information to criminally investigate or prosecute any alcohol or drug abuse patient.[facility] Center[facility] the event this information is protected by the Federal Confidentiality of Alcohol and Drug Abuse Patient Records regulations: The Federal rules restrict any use of the information to criminally investigate or prosecute any alcohol or drug abuse patient.[facility] the event this information is protected by the Federal Confidentiality of Alcohol and Drug Abuse Patient Records regulations: The Federal rules restrict any use of the information to criminally investigate or prosecute any alcohol or drug abuse patient.[facility] the event this information is protected by the Federal Confidentiality of Alcohol and Drug Abuse Patient Records regulations: The Federal rules restrict any use of the information to criminally investigate or prosecute any alcohol or drug abuse patient.[facility] Center[facility] the event this information is protected by the Federal Confidentiality of Alcohol and Drug Abuse Patient Records regulations: The Federal rules restrict any use of the information to criminally investigate or prosecute any alcohol or drug abuse patient.[facility] Reason for Visit (unrecogniz ed section [...] Contact General Surgery Diagnoses Rectal bleeding Procedures [place] OFFICE/OUTPATIENT LUISITO Jain, Sina, DO [address] [facility] [address] [place] [address] Phone: tel: fax: Sina Jain, [address] [facility] [address] [place] [address] Phone: tel: fax: Referral ID Status Reason Start Date Expiration Date V isits Requested Visits Authorized [id number] Closed Specialty Services Required 07/11/2024 01/07/2025 1 1 Reason Comments Amenorrhea Reason Comments Routine Visit Reason Comments Elevated Glucose Tolerance Test Specialty Diagnoses / Procedures Referred By Contac t Referred To Contact Maternal and Medicine Diagnoses Gestational diabetes mellitus (GDM) in second trimester, gestational diabetes method of control unspecified Roscoe Diaz, DO [address] [place] [address] Phone: tel: fax: Maternal- Medicine at [facility] [address] [place] [address] Phone: tel: fax: Referral ID Status Reason Start Date Expiration Date Visits Requested Visits Authorized [id number] Pending Review Specialty Services Required 02/06/2025 02/06/2026 1 1 Reason Comments MED START Reason Comments Med Change Request Care Teams (unrecognized sec tion and content) Hot Metal Crane Operator Relationship Specialty [place] [address] [place] [address] PCP - General Internal Medicine 01/11/22 Team Status: Inactive Member Role Status Dates Dasha Lujan MD Primary Care Provider Active BRETT MotleyC Attending Provider Rosy multani Team Status: Active Member Role Status Dates Dasha Lujan MD Primary Care Provider Active Hot Metal Crane Operator Relationship Specialty [place] [address] [place] [address] PCP - General Internal Medicine 01/11/22 Hot Metal Crane Operator Relationship Specialty [place] [address] [place] [address] PCP - General Internal Medicine 01/11/22 Hot Metal Crane Operator Relationship Specialty [place] [address] [place] [address] PCP - General Internal Medicine 01/11/22 Hot Metal Crane Operator Relationship Specialty [place] [address] [place] [address] PCP - General Internal Medicine 01/11/22 Hot Metal Crane Operator Relationship Specialty [place] [address] [place] [address] PCP - General Internal Medicine 01/11/22 Hot Metal Crane Operator Relationship Specialty Start Date End Date Unallocated, Chiara Pate MD [address] [place] [address] [place] [address] PCP - General Family Medicine 10/17/23 Hot Metal Crane Operator Relationship Specialty Start Date End Date Unallocated, Chiara Pate MD [facility] [place] [address] PCP - General Family Medicine 10/17/23 Hot Metal Crane Operator Relationship Specialty Start Date End Date Unallocated, Chiara Pate MD [facility] [place] [address] PCP - General Family Medicine 10/17/23 Hot Metal Crane Operator Relationship Specialty Start Date End Date Unallocated, Chiara Pate MD [facility] [place] [address] PCP - General Family Medicine 10/17/23 Hot Metal Crane Operator Relationship Specialty Start Date End Date Unallocated, Chiara Pate MD [facility] [place] [address] PCP - General Family Medicine 10/17/23 Hot Metal Crane Operator Relationship Specialty Start Date End Date Unallocated, Chiara Pate MD [facility] [place] [address] PCP - General Family Medicine 10/17/23 Edu Alvarez, DESK CLERKS SUPERVISOR [address] [place] [address] PCP - [place] [employer] 09/22/24 Hot Metal Crane Operator Relationship Specialty Start Date End Date Unallocated, Chiara Pate MD [facility] [place] [address] PCP - General Family Medicine 10/17/23 Edu Alvarez, DESK CLERKS SUPERVISOR [address] [place] [address] PCP - [place] [employer] 09/22/24 Hot Metal Crane Operator Relationship Specialty Start Date End Date Unallocated, Chiara Pate MD [address] [place] [address] PCP - General Family Medicine 10/17/23 Edu Alvarez, DESK CLERKS SUPERVISOR [address] [place] [address] PCP - [place] [employer] 09/22/24 Hot Metal Crane Operator Relationship Specialty Start Date End Date Unallocated, Chiara Pate MD [address] [place] [id number] PCP - General Family Medicine 10/17/23 Edu Alvarez, DESK CLERKS SUPERVISOR [address] [place] [address] PCP - [place] [employer] 09/22/24 Hot Metal Crane Operator Relationship Specialty Start Date End Date Unallocated, Chiara Pate MD [address] [place], [place] [address] [address] PCP - General Family Medicine 10/17/23 Edu Alvarez, DESK CLERKS SUPERVISOR [address] [place] [address] PCP - [place] [employer] 09/22/24 Hot Metal Crane Operator Relationship Specialty Start Date End Date Unallocated, Chiara Pate MD [address] [place] [address] PCP - General Family Medicine 10/17/23 Edu Alvarez NP [address] [place] [id number] PCP - [place] [employer] 09/22/24 Hot Metal Crane Operator Relationship Specialty Start Date End Date Unallocated, Chiara Pate MD [facility] [place] [address] PCP - General Family Medicine 10/17/23 Edu Alvarez, DESK CLERKS SUPERVISOR [address] [place] [place] [id number] PCP - [place] [employer] 09/22/24 Hot Metal Crane Operator Relationship Specialty Start Date End Date Unallocated, Chiara Pate MD [address] [place] [address] PCP - General Family Medicine 10/17/23 Edu Alvarez, TONIA [address] [place] [address] PCP - [place] [employer] 09/22/24 Hot Metal Crane Operator Relationship Specialty Start Date End Date Unallocated, Chiara Pate MD [address] [place] [address] PCP - General Family Medicine 10/17/23 Edu Alvarez NP [address] [place] [address] PCP - [place] [employer] 09/22/24 Hot Metal Crane Operator Relationship Specialty Start Date End Date Unallocated, Chiara Pate MD [address] [place] [address] PCP - General Family Medicine 10/17/23 Edu Alvarez NP [address] [place] [address] PCP - [place] [employer] 09/22/24 Hot Metal Crane Operator Relationship Specialty Start Date End Date Unallocated, Chiara Pate MD [address] [place] [address] PCP - General Family Medicine 10/17/23 Edu Alvarez NP [address] [place] [address] PCP - [place] [employer] 09/22/24 INFORMATION SOURCE (unrecogn ized section and content) DATE CREATED AUTHOR 01/16/2022 [facility] DATE CREATED AUTHOR AUTHOR'S ORGANIZ ATION 10/18/2022 [facility] DATE CREATED AUTHOR AUTHOR'S ORGANIZ ATION 07/01/2024 [facility] DATE CREATED AUTHOR AUTHOR'S ORGANIZ ATION 04/02/2025 [facility] DATE CREATED AUTHOR AUTHOR'S ORGANIZ ATION 04/26/2025 [facility] EPIC Goals (unrecognized section and content) [...] BE BASED ON THE PRIMARY CLINICAL RECORDS. [employer] provides no warranty or guarantee of the accuracy or completeness of information in this document.
== END 2025-05-02 15:41 | disposition home or self-care (01) ==
LOC: FBCO 15:03 → FBC 15:06
PROVIDERS: Visit Provider Obstetrics & Gynecology
DX: O26.893 Other specified pregnancy related conditions, third trimester (principal)
CPT/HCPCS: 59025

== ENCOUNTER 2025-05-06 05:04 | Inpatient (IN) | payer BC, SELFPAY ==
--- OUTSIDE RECORDS SUMMARY | 2024-04-12 04:45 | XMS_ITS | Continuity of Care Document ---
Author Organization [employer] [facility] Address [address] [facility] [place] [address] Phone Care Team Providers Care Rn Clinical Trials Name Role Phone Reena Breaux CNP Unavailable Procedures Procedure Date OFFICE/OUTPATIENT VISIT, EST OFFICE/OUTPATIENT VISIT, EST OFFICE/OUTPATIENT VISIT, EST OFFICE/OUTPATIENT VISIT, EST POSTOP FOLLOW-UP VISIT POSTOP FOLLOW-UP VISIT LAP SLEEVE GASTRECTOMY Sleeve Gastrectomy OFFICE/OUTPATIENT VISIT, EST PSYCH DIAGNOSTIC EVALUATION PSYCL/NRPSYC TST PHY/QHP 1ST PSYCL/NRPSYC TST PHY/QHP OFFICE/OUTPATIENT VISIT, [facility] Advance Directives Directive Yes / No Effective Date File Name No Information Encounters Encounter Description Practice Location Reason(s) For Visit Diagnoses Date Provider Providers Copied on Encounter OFFICE/OUTPATI ENT VISIT, [facility] [employer] [facility], [address], [place], [place], [address], [place] tel:[phone] [facility] No Information Saeid Valles. [address] [facility] [address], [place], [place], [address], [place]. tel:[phone] Referring Provider: Reena Breaux, [address] [facility] [address], [place], [address]. tel:[phone] OFFICE/OUTPATI ENT VISIT, [facility], [address] [place] [address] [address], [place], [place], [address], [place] tel:[phone] [place] [facility] No Information Saeid Valles. [address], [facility] [place], [address], [place]. tel:[phone] Referring Provider: Reena Breaux, [facility] [address], [place], [address]. tel:[phone] OFFICE/OUTPATI ENT VISIT, [facility], [address] [facility] [address], [place], [place], [address], [place] tel:[phone] [facility] No Information Saeid Valles. [address], [place], [place], [address], [place]. tel:[phone] Referring Provider: Reena Breaux, [facility] [address], [place], [address]. tel:[phone] [employer] [facility], [address] [place] [address] [address], [place], [place], [address], [place] tel:[phone] [facility] No Information Saeid Valles. [address], [place], [place], [address], [place]. tel:[phone] Referring Provider: Reena Breaux, [facility] [address], [place], [address]. tel:[phone] [facility], [address] [place] [address] [address], [place], [place], [address], [place] tel:[phone] [place] [facility] No Information Saeid Valles. [address], [place], [place], [address], [place]. tel:[phone] Referring Provider: Reena Breaux, [facility] [address], [place], [address]. tel:[phone] [employer] [facility], [address] [place] [address] [address], [place], [place], [address], [place] tel:[phone] [facility] IP No Information Robert Mcmahon. [address] [facility] [address], [place], [place], [address], [place]. tel:[phone] Referring Provider: Lisandro Lieberman, [address] [facility] [address], [place], [address]. tel:[phone] [employer] [facility], [address] [place] [address] [address], [place], [place], [address], [place] tel:[phone] [facility] IP No Information Saeid Valles. [address] [facility] [address], [place], [place], [address], [place]. tel:[phone] Referring Provider: Reena Breaux, [address] [place] [address] [address], [place], [address]. tel:[phone] OFFICE/OUTPATI ENT VISIT, [facility], [address] [place] [address] [address], [place], [place], [address], [place] tel:[phone] [place] [facility] No Information Robert Mcmahon. [address] [facility] [address], [place], [place], [address], [place]. tel:[phone] Referring Provider: Lisandro Lieberman, [address] [facility] [address], [place], [address]. tel:[phone] PSYCH DIAGNOSTIC EVALUATION [facility] [employer] [facility], [address] [place] [address] [address], [place], [place], [address], [place] tel:[phone] [place] [facility] No Information Omari Beltran. [address] [facility] [address], [place], [place], [address], [place]. tel:[phone] Referring Provider: Ruby Salcido, [address] [place] [address] [address], [place], [address]. tel:[phone] OFFICE/OUTPATI ENT VISIT, [facility], [address], [place], [place], [address], [place] tel:[phone] [facility] No Information Robert Mcmahon. [address] [facility] [address], [place], [place], [address], [place]. tel:[phone] Referring Provider: Lisandro Lieberman, [address] [facility] [address], [place], [address]. tel:[phone] Family History Family Member Type Diagnosis Age At Onset No Information Payers Payer name Insurance type Covered green party ID Bernice harley(gilmar) Capo [id number] Social History Type Description Quantity Date Captured [...]
--- OUTSIDE RECORDS SUMMARY | 2025-04-24 11:30 | XMS_ITS | Encounter Summary ---
Author Organization [facility] Address [address] [place] [address] Care Team Providers Care Needle Maker Name Role Phone Unallocated, Noms Provider Primary Care Provi chrissy Amalia Bruce BAKER DOUGHNUT Unavailable [phone] Reason for Visit * Reason Comments Routine Visit Encounter Details Date Type Department Care Team (Late st Contact Info) Description 04/24/2025 11:30 AM EDT Routine [facility]IARA Johnson OBGYN [address] [facility] [place] [address] Roscoe Diaz DO [address] [facility] [address] [facility] [address] Rache[address] Johnson, [facility]11 Third trimester ([facility]); 36 weeks gestation of ([facility]) Social History Tobacco Use Types Packs/Day Years [...] nursing note reviewed. Exam conducted with a sole rounding machine operator present. Vitals: Estimated body mass index is 37.22 kg/m?? as calculated from the following: Height as of 07/25/24: 5' 3 . Weight as of this encounter: 210 lb 1.9 oz. BP: 116/74 Patient's last menstrual period was 08/12/2024. ASSESSMENT & PLAN ICD-10-CM 1. Third trimester ([facility]) Z34.93 POCT urinalysis dipstick manually resulted CULTURE, GROUP B STREP WITH SUSCEPTIBLITY CULTURE, GROUP B STREP WITH SUSCEPTIBLITY 2. 36 weeks gestation of ([facility]) Z3A.36 POCT urinalysis dipstick manually resulted Patient [...] Routine 04/24/2025 11:56 AM EDT Third trimester ([facility]) 36 weeks gestation of ([facility]) CULTURE, GROUP B STREP WITH SUSCEPTIBLITY Routine 04/24/2025 11:41 AM EDT Third trimester ([facility]) documented in this encounter Results * POCT [...] ([facility]) state, incidental 36 weeks gestation of ([facility]) documented in this encounter Additional Health Concerns Active Problems Noted Date Diagnosed Date OB Reminders 10/19/2024 documented as of this encounter Care Teams Needle Maker Relationship Specialty Start Date End Date Unallocated, Noms Provider, [address] [place] [address] PCP - General Family Medicine 10/17/23 Amalia Bruce, TONIA [address] [place] [address] PCP - Capo Wild 09/22/24 documented as of this encounter
--- OUTSIDE RECORDS SUMMARY | 2025-05-01 08:00 | XMS_ITS | Encounter Summary ---
Author Organization [facility] tem Address [id number] [address] [place] [address] Care Team Providers Care Finger Grip Machine Operator Name Role Phone Unavailable Primary Care Provider Unavailabl e Encounter Details Date Type Department Care Team (Late st Contact Info) Description 05/01/2025 8:00 AM EDT Telemedicine Maternal- Medicine at [facility] [address] [place] [phone] Marilia Dillon APRN-CNP [address] [place] [address] Gestational diabetes requiring insulin (Primary Dx) Social [...] as of this encounter Progress Notes * BRIE Farias - 05/01/2025 8:00 AM EDT REASON FOR OFFICE VISIT: Video Visit via Real-time Synchronous Audiovisual Provider Location: [facility] MATERNAL- MEDICINE AT [facility] [address] [facility] [phone] Patient Location: Patient's home Video Visit Consent Statement: I discussed risks, benefits, and alternatives of a real-time synchronous audiovisual consultation with the patient (and any accompanying persons) including the risks that the patient's personal health details and medical records will be discussed over real-time, synchronous, interactive video/audio/telecommunication technology, the visit will not be recorded withoutthe express consent of both the provider and the patient, and that there are some limitations compared to tefe-rl-mram evaluations. The patient consented to the presence of additional virtual and/or in-person participants. We elected to proceed. 1. GDMA2; A1c 5.1% HISTORY OF PRESENT ILLNESS: Caryl Garcia is a pleasant 34 y.o. at 37w3d due on Estimated Date of Delivery: 05/19/25. Currently the patient has no complaints. The patient denies CUELLAR, nausea, vomiting, abdominal pain, vaginal bleeding, contractions, leaking fluid or chest pain. +. She is being followed at [facility] due to GDMA2. States she is following meal plan as much as possible and eating evening snack. FBS - verbally reports what was sent in her email since I had to proceed without logs this am: 84, 89,89, 97,91,94,91 1 HR Postprandial - 89- 162 Reports she has been taking 6 units not the 10 listed on medlist Past Medical History PAST OBSTETRICAL HISTORY: OB History 2 Para [...] insulinnightly, Disp: 100 each, Rfl: 2 25-IRON PPA-FNLPM-NGG ORAL, Take 1 tablet by mouth in the morning., Disp: , Rfl: LABS: No results found for: GLUF , MICROALBUR , LDLCALC , CREATININE No results found for: TSH , T3 , TOTALT4 , THYROIDAB No results found for: [id number] No results found for: CREATININE , BUN , NA , K , CL , CO2 No results found for: ALT , AST , GGT , ALKPHOS , LABBILI Lab Results Component Value Date HGBA1C 5.1 10/19/2024 REVIEW OF SYSTEMS: Head and Neck: Negative for any dizziness and headaches. Cardiovascular and Respiratory System: Denies any chest pain, shortness of breath, and coughing. Abdominal and System: Denies any abdominal pain, nausea, vomiting, vaginal bleeding, and vaginal discharge PHYSICAL EXAMINATION: LMP 08/12/2024 Gravid abdomen, Alert & Oriented. Respirations not labored. DISCUSSION: Glucose levels well controlled with a few mild elevations- insulin adjusted accordingly Recommended carbohydrate allocation ranges: 30-45 g for breakfast, 45-60 g for lunch and dinner, and 15-g snacks roughly 2-3 hours after each meal. A1c less than 6% has the lowest risk for LGA infant Pre-E s/s reviewed: BP >160/110, epigastric or RUQ ABD pain unresponsive to analgesics, neurological symptoms:vision changes, floaters, severe headache not relieved with medication, or fluid changes: reduced voids, swelling in hands, face or pitting edema encroaching up the shins, weight gain >4lbs in 1 week SUMMARY/RECOMMENDATION: The following is a summary of our recommendations: 1. Blood work: Per primary Ob in the presence of concerning s/s 2. Medication: Continue ASA 81 mg PO daily for pre-eclampsia prevention as previously prescribed by primary OB Lantus increased to 8 units subcutaneous at bedtime Other medications as above 3. testing: Twice weekly NST w/ weekly DVP at 32 weeks growth ultrasounds every 4 weeks starting at 28 weeks 4. Delivery timing: Consider planned delivery btw 39/0-39/6 weeks or before if indicated Use 1/2 dose of insulin the night before her planned delivery ( 4 units). GDMA2:may monitor patient's BG every 4hrs during latent labor, every 1 hr during active labor with goal BG to be less than 140mg/dl. Can use insulin sliding scale prn hyperglycemia. No need for insulin use the day of her delivery 5. Post : As she has only gestational diabetes, there is no need for glucose testing or medication after her delivery. Please obtain a 2-hour GTT directly while still hospitalized after delivery or 4-12 weeks out patient and then A1c yearly as the patient has a 20% risk of having or developing diabetes later on. 6. Follow-up appointment: I asked her to keep sending values to us weekly by e-mail to: or by fax to: [phone] TIME OF CONSULTATION: 20 minutes with the patient, >50% in discussion and counseling, coordination of care which was vxri-cc-[id number], review of records and communication back to referring provider. BRIE Farias 05/01/25 0817 documented in this encounter Plan of Treatment Not on file documented as of this encounter Visit Diagnoses Diagnosis Gestational diabetes requiring insulin- Primary Abnormal maternal glucose tolerance, complicating , childbirth, or the puerperium, unspecified as to episode of care documented in this encounter
--- OUTSIDE RECORDS SUMMARY | 2025-05-01 09:20 | XMS_ITS | Encounter Summary ---
Author Organization [facility] Address [address] [place] [address] Care Team Providers Care Testing Analyst Name Role Phone Unallocated, Noms Provider Primary Care Provi chrissy Amalia Bruce PROCESS SAFETY SPECIALIST Unavailable [phone] Reason for Visit * Reason Comments Routine Visit Encounter Details Date Type Department Care Team (Late st Contact Info) Description 05/01/2025 9:20 AM EDT Routine CHIARA Johnson OBGYN [address] [facility] [place] [address] Rosy Barton PA [address] [facility] [address] [place], [facility] 37 weeks gestation of ([facility]); Third trimester ([facility]); H/O gastric sleeve; Insulin controlled gestational diabetes mellitus (GDM) during , antepartum ([facility]) Social History Tobacco Use Types [...] Sign Reading Time Taken Comments Blood Pressure 110/60 05/01/2025 9:22 AM EDT Pulse - - Temperature - - Respiratory Rate - - Oxygen Saturation - - Inhaled Oxygen Concentration - - Weight 97.6 kg (215 lb 1.9 oz) 05/01/2025 9:22 A M EDT Height - - Body Mass Index 38.11 07/25/2024 2:19 PM EST documented in this encounter Progress Notes * Adelaida Dugan NP - 05/01/2025 9:20 AM EDT Reason for Appointment: Patient ID: Caryl Garcia is a 34 y.o. female who presents for Routine Visit Patient presents today for Return OB appointment. MEDICATIONS Current Outpatient Medications Medication Instructions Alcohol Swabs (Alcohol Prep Pad) 70 % pads 1 Pad, Topical, Daily, Use four times daily to check FSBS. aspirin 81 mg, Daily Blood Glucose Monitoring Suppl ([employer] Glucometer) w/Device kit 1 kit, Does not apply, Daily, Use four times daily to check FSBS. In the morning prior to breakfast & 1 hour after each meal for a total of 4times daily. Lantus SoloStar 8 Units, Subcutaneous, Nightly omeprazole OTC (PRILOSEC OTC) 20 mg, [...] nursing note reviewed. Exam conducted with a wool cleaner present. Vitals: Estimated body mass index is 38.11 kg/m?? as calculated from the following: Height as of 07/25/24: 5' 3 . Weight as of this encounter: 215 lb 1.9 oz. BP: 110/60 Patient's last menstrual period was 08/12/2024. ASSESSMENT & PLAN ICD-10-CM 1. 37 weeks gestation of ([facility]) Z3A.37 POCT urinalysis dipstick manually resulted 2. Third trimester ([facility]) Z34.93 POCT urinalysis dipstick manually resulted 3. H/O gastric sleeve Z90.3 4. Insulin controlled gestational diabetes mellitus (GDM) during , antepartum ([facility]) O24.414 Return OB: Patient presents today for a routine obstetrics appointment. Patient is currently 37w3d . Patient states she is doing well but has complaints of being tired due to current . Patient has verbalizes frequent movement. labor precautions was discussed/given and patient was instructed to perform kick counts three times a day. Orders Placed This Encounter Procedures POCT urinalysis dipstick manually resulted Follow Up: Patient is to return to office in 1 week for routine OB appointment. Documented by Adelaida Dugan NP on behalf of: SLICK Matias documented in this encounter Plan of Treatment Not on file documented as of this encounter Goals Goal Patient Goal Type Associated Problems Recent Progress Patient-Stated? Author Reminders Care Plan OB Reminders No Open Scheduling, Background documented as of this encounter Procedures Procedure Name Priority Date/Time Associated Diagnosis Comments POCT URINALYSIS DIPSTICK Routine 05/01/2025 9:27 AM EDT 37 weeks gestation of ([facility]) Third trimester ([facility]) documented in this encounter Results * (ABNORMAL) POCT urinalysis dipstick manually resulted (05/01/2025 9:27 AM EDT) Color, UA Yellow Clarity, UA [...] Nitrite, UA Negative Negative - Positive Urine 05/01/2025 9:27 AM EDT Rosy KRUGER POINT OF CARE TEST ENTER/EDIT OR DERABLES Final Result documented in this encounter Visit Diagnoses Diagnosis 37 weeks gestation of ([facility]) Third trimester ([facility]) state, incidental H/O gastric sleeve Insulin controlled gestational diabetes mellitus (GDM) during , antepartum ([facility]) documented in this encounter Additional Health Concerns Active Problems Noted Date Diagnosed Date OB Reminders 10/19/2024 documented as of this encounter Care Teams Testing Analyst Relationship Specialty Start Date End Date Unallocated, Noms Provider[place] [address] PCP - General Family Medicine 10/17/23 Amalia Bruce NP [address] [place] [address] PCP - Capo Wild 09/22/24 documented as of this encounter
[2025-05-06] VITALS (67 sets, daily range): BP systolic 94–135; BP diastolic 50–80; PULSE 55–125; TEMP 36.3–36.8
--- OUTSIDE RECORDS SUMMARY | 2025-05-06 05:07 | XMS_ITS | CCD ---
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 Name Role Phone Unavailable Primary Care Provider UnavailDasha Kern MD Primary Care Provider MD Dasha Lujan Primary Care Provider BRETT Breaux Attending Provider [phone] Reena Breaux Admitting Unavailable Reena Breaux Attending [...] Unavailable Unallocated , [place] Provider [facility] Teo YARN TWISTER, Edu N Unavailable Teo YARN TWISTER, Edu N Unavailable Unavailable Primary Care Provider UnavailDEVIKA Lima Attending Unavailable ROSCOE DIAZ Referring Unavailable DAISHA MOREL Attending Unavailable ROSCOE DIAZ R Referring Unavailable DAISHA MOREL Attending Unavailable ROSCOE DIAZ R Referring Unavailable JOSIAH CHOPRA Attending Unavailable ROSCOE DIAZ R Referring Unavailable ROSCOE DIAZ Attending Unavailable ROSY QUIROZ Attending Unavailable ROSCOE DIAZ Attending Unavailable ROSY QUIROZ Attending Unavailable ROSY QUIROZ Referring Unavailable ROSCOE DIAZ Attending Unavailable ROSY QUIROZ Attending Unavailable ROSCOE DIAZ Attending Unavailable ROSCOE DIAZ Referring Unavailable ROSCOE DIAZ Attending Unavailable ROSCOE DIAZ Attending Unavailable SINA GARNER Attending Unavailable SINA GARNER Referring Unavailable EDU ALVAREZ Attending Unavailable ROSY QUIROZ Attending Unavailable Medications [...] antepartum, gestational diabetes method of control unspecified ([facility]) , Elevated glucose tolerance test 1 kit [...] antepartum, gestational diabetes method of control unspecified ([facility]) , Elevated glucose tolerance test Apply 1 Pad topically Daily Use four times daily to check FSBS. 150 each 3 02/04/2025 Active omeprazole 20 mg delayed release oral capsule (20 sources) Proton Pump Inhibitor Start: 04-16-2022 Omeprazole Magnesium (ACID HEAD STOCK TRANSFER CLERK, OMEPRAZOLE,) 20 mg cpDR 04/16/2022 Active [...] 30 days. BMI 29.76 polyethylene glycol 3350 13208 mg powder for oral solution (2 sources) Osmotic Laxative Start: End: take 17 g by mouth once polyethylene glycol, PEG, 3350 (Glycolax) 17 GM/SCOOP powder Indications: Colonoscopy Take 238 g by mouth 1 (one) time for 1 dose Take as detailed from clinic hand out for colonoscopy prep 238 g 07/25/2024 07/25/2024 Active 25-IRON VOG-TKLQD-CST ORAL (15 sources) take 1 tablet by mouth in the morning 25-IRON JTY-OFAVE-RFP ORAL Take 1 tablet by mouth in the morning. Active Vit-Fe Fumarate-FA ( 19) 29-1 MG chewable tablet (20 sources) Start: Vit-Fe Fumarate-FA ( 19) 29-1 MG chewable tablet Indications: , unspecified gestational age ([facility]) Chew 1 each Daily 30 tablet 11 [...] UA Negative Negative - 4(70) +++ mg/dL [facility] Blood, UA Negative Negative - 50 Iraj/mcL [facility] Clarity, UA Clear [facility] Color, UA Yellow [facility] Glucose, UA Negative Negative - 1999(110) ++++ mg/dL [facility] Interpretation and review of laboratory results Abnormal [facility] Ketones, UA Negative Negative - 160(16) ++++ mg/dL [facility] Leukocytes, UA Positive Negative - 500+++ Mari/mcL [facility] Nitrite, UA Negative Negative - Positive [facility] pH, UA 6 5 - 9 [facility] Protein, UA Negative Negative - 1999(20) ++++ mg/dL [facility] Spec Grav, UA 1.01 1 - 1.03 [facility] Urobilinogen, UA 1.0 0.2 - 12 mg/dL formerly [facility] US OB BPP W NON-STRESS on 04-29-2025 The [place] [id number] Ultrasound Report Signed Patient: CARYL ZAMARRIPA MR#: [id number] : 1990 Acct:[id number] Age/Sex: 34 / F ADM Date: 04/29/25 Loc: [place] [address]: Rosy Quiroz Ordering Physician: Rosy Quiroz Date of Service: 04/29/25 Procedure(s): US OB BPP w non-stress Accession Number(s): [id number] cc: Rosy Quiroz; Physician,Non-Staff Shimon The [address] [address] Patient Name: CARYL ZAMARRIPA MRN: [facility]:[id number] date: 1990 Sex: F Assigned Patient Location: [facility] Current Patient Location: [facility] Accession/Order Number: [id number] Exam Date: 04/29/2025 15:05 Report Date: 04/29/2025 15:39 At the request of: ROSY QUIROZ Procedure: US OB BPP w non-stress Biophysical profile. Reason for exam: History of gastric sleeve surgery COMPARISON: 04/23/2025 TECHNIQUE: Transabdominal imaging of the gravid uterus was obtained. FINDINGS: The epic professional reports a BPP of 8 out of 8. HELLEN is normal at 12.0 cm. heart rate 135 bpm. US/US OB BPP w non-stress IMPRESSION: BPP 8 out of 8. Impression dictated by: Cy Jensen Jr., D.O. 04/29/2025 3:39 PM Dictation Location: [place] [address] Electronically authenticated by: [id number] Y Date: 04/29/2025 15:39 Dictated By: Cy Jensen M.D. Signed By: 04/29/25 1541 DD/ 1539 TD/TT: Design Agent: [facility] Radiology, Radiologist, - 04/29/2025 The [place] [id number] Ultrasound Report Signed Patient: CARYL ZAMARRIPA MR#: [id number] : 1990 Acct:[id number] Age/Sex: 34 / F ADM Date: 04/29/25 Loc: [facility] 250-[address]: Rosy Quiroz Ordering Physician: Rosy Quiroz Date of Service: 04/29/25 Procedure(s): US OB BPP w non-stress Accession Number(s): [id number] cc: Rosy Quiroz; Physician,Non-Staff M.DCharisse [place] [id number] Patient Name: CARYL ZAMARRIPA MRN: [facility]:[id number] date: 1990 Sex: F Assigned Patient Location: [facility] Current Patient Location: [facility] Accession/Order Number: [id number] Exam Date: 04/29/2025 15:05 Report Date: 04/29/2025 15:39 At the request of: ROSY QUIROZ Procedure: US OB BPP w non-stress Biophysical profile. Reason for exam: History of gastric sleeve surgery COMPARISON: 04/23/2025 TECHNIQUE: Transabdominal imaging of the gravid uterus was obtained. FINDINGS: The epic professional reports a BPP of 8 out of 8. HELLEN is normal at 12.0 cm. heart rate 135 bpm. US/US OB BPP w non-stress IMPRESSION: BPP 8 out of 8. Impression dictated by: Cy Jensen Jr., D.O. 04/29/2025 3:39 PM Dictation Location: [place] [address] Electronically authenticated by: [id number] Y Date: 04/29/2025 15:39 Dictated By: Cy Jensen M.D. Signed By: 04/29/25 1541 DD/ 1539 TD/TT: Design Agent: [facility] Radiology Study observation (narrative) [facility] US OB BPP W NON-STRESS Ordered By: Radiologist Radiology on 04-29-2025 [facility] Work Phone: Urinalysis macro (dipstick) panel (U)on 09-03-2025 Bilirubin, UA Negative Negative - 4(70) +++ mg/dL [facility] Blood, UA Negative Negative - 50 Iraj/mcL [facility] Clarity, UA Clear [facility] Color, UA Yellow [facility] Glucose, UA Negative Negative - 2000(110) ++++ mg/dL [facility] Interpretation and review of laboratory results Normal [facility] Ketones, UA Negative Negative - 160(16) ++++ mg/dL [facility] Leukocytes, UA Negative Negative - 500+++ Mari/mcL [facility] Nitrite, UA Negative Negative - Positive [facility] pH, UA 6 5 - 9 [facility] Protein, UA Negative Negative - 2000(20) ++++ mg/dL [facility] Spec Grav, UA 1.02 1 - 1.03 [facility] Urobilinogen, UA 1.0 0.2 - 12 mg/dL formerly [facility] US OB BPP W NON-STRESS on 04-23-2025 [place] [address] Ultrasound Report Signed Patient: CARYL ZAMARRIPA MR#: [id number] : 1990 Acct:[id number] Age/Sex: 34 / F ADM Date: 04/23/25 Loc: [facility] [address]: Rosy Quiroz Ordering Physician: Rosy Quiroz Date of Service: 04/23/25 Procedure(s): US OB BPP w non-stress Accession Number(s): [id number] cc: Rosy Quiroz; Physician,Non-Staff M.D. The [place] [id number] Patient Name: CARYL ZAMARRIPA MRN: [id number] date: 1990 Sex: F Assigned Patient Location: Current Patient Location: [place] Accession/Order Number: [id number] Exam Date: 04/23/2025 16:03 Report Date: 04/23/2025 16:35 At the request of: ROSY QUIROZ Procedure: US OB BPP w non-stress Biophysical profile. Reason for exam: History of gastric sleeve surgery COMPARISON: 04/15/2025 TECHNIQUE: Transabdominal imaging of the gravid uterus was obtained. FINDINGS: The epic professional reports a BPP of 8 out of 8. HELLEN is normal at 11.5 cm. heart rate 135 bpm. US/US OB BPP w non-stress IMPRESSION: BPP 8 out of 8. Impression dictated by: Cy Jensen Jr., D.O. 04/23/2025 4:35 PM Dictation Location: [place] [address] Electronically authenticated by: [id number] Y Date: 04/23/2025 16:35 Dictated By: Cy Jensen M.D. Signed By: 04/23/25 1637 DD/ TD/TT: Design Agent: [facility] Radiology, Radiologist, MD - 04/23/2025 [place] [address] Ultrasound Report Signed Patient: CARYL ZAMARRIPA MR#: [id number] : 1990 Acct:[id number] Age/Sex: 34 / F ADM Date: 04/23/25 Loc: [facility] 250-[address]: Rosy Quiroz Ordering Physician: Rosy Quiroz Date of Service: 04/23/25 Procedure(s): US OB BPP w non-stress Accession Number(s): [id number] cc: Rosy Quiroz; Physician,Non-Staff Shimon The [place] [address] Patient Name: CARYL ZAMARRIPA MRN: [facility]:[id number] date: 1990 Sex: F Assigned Patient Location: Current Patient Location: [place] Accession/Order Number: [id number] Exam Date: 04/23/2025 16:03 Report Date: 04/23/2025 16:35 At the request of: ROSY QUIROZ Procedure: US OB BPP w non-stress Biophysical profile. Reason for exam: History of gastric sleeve surgery COMPARISON: 04/15/2025 TECHNIQUE: Transabdominal imaging of the gravid uterus was obtained. FINDINGS: The epic professional reports a BPP of 8 out of 8. HELLEN is normal at 11.5 cm. heart rate 135 bpm. US/US OB BPP w non-stress IMPRESSION: BPP 8 out of 8. Impression dictated by: Cy Jensen Jr., D.O. 04/23/2025 4:35 PM Dictation Location: [place] [address] Electronically authenticated by: [id number] Y Date: 04/23/2025 16:35 Dictated By: Cy Jensen M.D. Signed By: 04/23/251636 DD/ 34 TD/TT: Design Agent: [facility] Known Radiology Study observation (narrative) [facility] US OB BPP W NON-STRESS Ordered By: Radiologist Radiology on 04-23-2025 [facility] Known Work Phone: US OB BPP W NON-STRESS on 04-15-2025 [place] [address] Ultrasound Report Signed Patient: CARYL ZAMARRIPA MR#: [id number] : 1990 Acct:[id number] Age/Sex: 34 / F ADM Date: 04/15/25 Loc: US Attending Dr: Rosy Quiroz Ordering Physician: Rosy Quiroz Date of Service: 04/15/25 Procedure(s): US OB BPP w non-stress Accession Number(s): [id number] cc: Rosy Quiroz; Physician,Non-Staff Shimon The [place] [id number] Patient Name: CARYL ZAMARRIPA MRN: [facility]:[id number] date: 1990 Sex: F Assigned Patient Location: Current Patient Location: Accession/Order Number: [id number] Exam Date: 04/15/2025 15:09 Report Date: 04/15/2025 16:16 At the request of: ROSY QUIROZ Procedure: US OB BPP w non-stress Biophysical profile. Reason for exam: History of gastric sleeve surgery COMPARISON: 04/08/2025 TECHNIQUE: Transabdominal imaging of the gravid uterus was obtained. FINDINGS: The epic professional reports a BPP of 8 out of 8. HELLEN is normal at 17 cm. heart rate 136 bpm. US/US OB BPP w non-stress IMPRESSION: BPP 8 out of 8. Impression dictated by: Cy Jensen Jr., D.O. 04/15/2025 4:16 PM Dictation Location: [place] [address] Electronically authenticated by: [id number] Y Date: 04/15/2025 16:16 Dictated By: Cy Jensen M.D. Signed By: 04/15/25 1619 DD/ 15 TD/TT: Design Agent: [facility] Radiology, Radiologist, MD - 04/15/2025 [place] [address] Ultrasound Report Signed Patient: CARYL ZAMARRIPA MR#: [id number] : 1990 Acct:[id number] Age/Sex: 34 / F ADM Date: 04/15/25 Loc: US Attending Dr: Rosy Quiroz Ordering Physician: Roys Quiroz Date of Service: 04/15/25 Procedure(s): US OB BPP w non-stress Accession Number(s): [id number] cc: Rosy Quiroz; Physician,Non-Staff Shimon The [place] [id number] Patient Name: CARYL ZAMARRIPA MRN: [facility]:[id number] date: 1990 Sex: F Assigned Patient Location: [place] Current Patient Location: Accession/Order Number: [id number] Exam Date: 04/15/2025 15:09 Report Date: 04/15/2025 16:16 At the request of: ROSY QUIROZ Procedure: US OB BPP w non-stress Biophysical profile. Reason for exam: History of gastric sleeve surgery COMPARISON: 04/08/2025 TECHNIQUE: Transabdominal imaging of the gravid uterus was obtained. FINDINGS: The epic professional reports a BPP of 8 out of 8. HELLEN is normal at 17 cm. heart rate 136 bpm. US/US OB BPP w non-stress IMPRESSION: BPP 8 out of 8. Impression dictated by: Cy Jensen Jr., D.O. 04/15/2025 4:16 PM Dictation Location: [place] [address] Electronically authenticated by: [id number] Y Date: 04/15/2025 16:16 Dictated By: Cy Jensen M.D. Signed By: 04/15/251618 DD/ 15 TD/TT: Design Agent: [facility] Radiology Study observation (narrative) [facility] US OB BPP W NON-STRESS Ordered By: Radiologist Radiology on 04-15-2025 [facility] Work Phone: Urinalysis macro (dipstick) panel (U)on 04-10-2025 Bilirubin, UA Negative Negative - 4(70) +++ mg/dL [facility] Blood, UA Negative Negative - 50 Iraj/mcL [facility] Clarity, UA Clear [facility] Color, UA Yellow [facility] Glucose, UA Negative Negative - 2000(110) ++++ mg/dL [facility] Interpretation and review of laboratory results Abnormal [facility] Ketones, UA Negative Negative - 160(16) ++++ mg/dL [facility] Leukocytes, UA Positive Negative - 500+++ Mari/mcL [facility] Nitrite, UA Negative Negative - Positive [facility] pH, UA 6 5 - 9 [facility] Protein, UA Positive Negative - 2000(20) ++++ mg/dL [facility] Spec Grav, UA 1.015 1 - 1.03 [facility] Urobilinogen, UA 1.0 0.2 - 12 mg/dL formerly [facility] US OB BPP W NON-STRESS on 04-08-[address] [address] Ultrasound Report Signed Patient: CARYL ZAMARRIPA MR#: [id number] : 1990 Acct:[id number] Age/Sex: 34 / F ADM Date: 04/08/25 Loc: US Attending Dr: Rosy Quiroz Ordering Physician: Rosy Quiroz Date of Service: 04/08/25 Procedure(s): US OB BPP w non-stress Accession Number(s): [id number] cc: Rosy Quiroz; Physician,Non-Staff MMickey [address] [place] [id number] Patient Name: CARYL ZAMARRIPA MRN: [facility]:[id number] date: 1990 Sex: F Assigned Patient Location: [facility] Current Patient Location: Accession/Order Number: [id number] Exam Date: 04/08/2025 20:36 Report Date: 04/08/2025 [...] Briscoe M.D. 04/08/2025 8:37 PM Dictation Location: [place] [address] Electronically authenticated by: [id number] Y Date: 04/08/2025 20:37 Dictated By: Suraj Briscoe D.O. Signed By: 04/08/252038 DD/ 36 TD/TT: Design Agent: [facility] Radiology, Radiologist, - 04/08/2025 [place] [address] Ultrasound Report Signed Patient: CARYL ZAMARRIPA MR#: [id number] : 1990 Acct:[id number] Age/Sex: 34 / F ADM Date: 04/08/25 Loc: US Attending Dr: Rosy Quiroz Ordering Physician: Rosy Quiroz Date of Service: 04/08/25 Procedure(s): US OB BPP w non-stress Accession Number(s): [id number] cc: Rosy Quiroz; Physician,Non-Staff Shimon The [place] [id number] Patient Name: CARYL ZAMARRIPA MRN: [facility]:[id number] date: 1990 Sex: F Assigned Patient Location: [facility] Current Patient Location: Accession/Order Number: [id number] Exam Date: 04/08/2025 20:36 Report Date: 04/08/2025 [...] Briscoe M.D. 04/08/2025 8:37 PM Dictation Location: [facility] Electronically authenticated by: [id number] Y Date: 04/08/2025 20:37 Dictated By: Suraj Briscoe D.O. Signed By: 04/08/252038 DD/ 36 TD/TT: Design Agent[facility] Rad[facility] Study observation (narrative) [facility] US OB BPP W NON-STRESS Ordered By: Radiologist Radiology on 04-08-2025 [facility] Known Work Phone: US OB FOLLOW UP TRANSABDOMIN [...] II, MD, PHD at 09-Apr-2025 07:59:18 AM [facility] [place] [facility] Normal Not Available Comment on above: Order Comment: US OB SCAN FOR GROWTH Estimated Date of Delivery: 05/19/25 Gestational Age as of 04/05/2025: 33w5d US OB BPP W NON-STRESS on 04-01-2025 [place] [address] Ultrasound Report Signed Patient: CARYL ZAMARRIPA MR#: [id number] : 1990 Acct:[id number] Age/Sex: 34 / F ADM Date: 04/01/25 Loc: [place] [address]: Rosy Quiroz Ordering Physician: Rosy Quiroz Date of Service: 04/01/25 Procedure(s): US OB BPP w non-stress Accession Number(s): [id number] cc: Rosy Quiroz; Physician,Non-Staff M.D. The [address] [address] Patient Name: CARYL ZAMARRIPA MRN: [facility]:[id number] date: 1990 Sex: F Assigned Patient Location: US Current Patient Location: US Accession/Order Number: [id number] Exam Date: 04/01/2025 15:28 Report Date: 04/01/2025 15:29 At the request of: ROSY QUIROZ Procedure: US OB BPP w non-stress Biophysical profile. Reason for exam: History of gastric sleeve surgery COMPARISON: None TECHNIQUE: Transabdominal imaging of the gravid uterus was obtained. FINDINGS: The epic professional reports a BPP of 8 out of 8. HELLEN is normal at 10.8 cm. heart rate 125 bpm. US/US OB BPP w non-stress IMPRESSION: BPP 8 out of 8. Impression dictated by: Cy Jensen Jr., D.O. 04/01/2025 3:29 PM Dictation Location: [facility] Electronically authenticated by: [id number] Y Date: 04/01/2025 15:29 Dictated By: Cy Jensen M.D. Signed By: 04/01/25 1531 DD/ 1529 TD/TT: Design Agent: [facility] Radiology, Radiologist, MD - 04/01/2025 [place] [address] Ultrasound Report Signed Patient: CARYL ZAMARRIPA MR#: [id number] : 1990 Acct:[id number] Age/Sex: 34 / F ADM Date: 04/01/25 Loc: [facility] 250-[address]: Rosy Quiroz Ordering Physician: Rosy Quiroz Date of Service: 04/01/25 Procedure(s): US OB BPP w non-stress Accession Number(s): [id number] cc: Rosy Quiroz; Physician,Non-Staff Shimon The [place] [address] Patient Name: CARYL ZAMARRIPA MRN: [facility]:[id number] date: 1990 Sex: F Assigned Patient Location: Current Patient Location: US Accession/Order Number: [id number] Exam Date: 04/01/2025 15:28 Report Date: 04/01/2025 15:29 At the request of: ROSY QUIROZ Procedure: US OB BPP w non-stress Biophysical profile. Reason for exam: History of gastric sleeve surgery COMPARISON: None TECHNIQUE: Transabdominal imaging of the gravid uterus was obtained. FINDINGS: The epic professional reports a BPP of 8 out of 8. HELLEN is normal at 10.8 cm. heart rate 125 bpm. US/US OB BPP w non-stress IMPRESSION: BPP 8 out of 8. Impression dictated by: Cy Jensen Jr., D.O. 04/01/2025 3:29 PM Dictation Location: [facility] Electronically authenticated by: [id number] Y Date: 04/01/2025 15:29 Dictated By: Cy Jensen M.D. Signed By: 04/01/25 1531 DD/ 1529 TD/TT: Design Agent: [facility] Radiology Study observation (narrative) [facility] US OB BPP W NON-STRESS Ordered By: Radiologist Radiology on 04-01-2025 [facility] Work Phone: Urinalysis macro (dipstick) panel (U)on 03-27-2025 Bilirubin, UA Negative Negative - 4(70) +++ mg/dL [facility] Blood, UA Negative Negative - 50 Iraj/mcL [facility] Clarity, UA Clear [facility] Color, UA Yellow [facility] Glucose, UA Negative Negative - 2000(110) ++++ mg/dL [facility] Interpretation and review of laboratory results Abnormal [facility] Ketones, UA Positive Negative - 160(16) ++++ mg/dL [facility] Leukocytes, UA Few Negative - 500+++ Mari/mcL [facility] Nitrite, UA Negative Negative - Positive [facility] pH, UA 6 5 - 9 [facility] Protein, UA Few Negative - 2000(20) ++++ mg/dL [facility] Spec Grav, UA 1.03 1 - 1.03 [facility] Urobilinogen, UA 0.2 0.2 - 12 mg/dL [facility] Urinalysis macro (dipstick) panel (U)on 03-13-2025 Bilirubin, UA Negative Negative - 4(70) +++ mg/dL [facility] Blood, UA Negative Negative - 50 Iraj/mcL [facility] Clarity, UA Clear [facility] Color, UA Yellow [facility] Glucose, UA Negative Negative - 2000(110) ++++ mg/dL [facility] Interpretation and review of laboratory results Normal [facility] Ketones, UA Negative Negative - 160(16) ++++ mg/dL [facility] Leukocytes, UA Negative Negative - 500+++ Mari/mcL [facility] Nitrite, UA Negative Negative - Positive [facility] pH, UA 6 5 - 9 [facility] Protein, UA Negative Negative - 2000(20) ++++ mg/dL [facility] Spec Grav, UA 1.01 1 - 1.03 [facility] Urobilinogen, UA 1.0 0.2 - 12 mg/dL [facility] US OB FOLLOW UP TRANSABDOMIN [...] UA Negative Negative - 4(70) +++ mg/dL [facility] Blood, UA Negative Negative - 50 Iraj/mcL [facility] Clarity, UA Clear [facility] Color, UA Colorless [facility] Glucose, UA Negative Negative - 2000(110) ++++ mg/dL [facility] Interpretation and review of laboratory results Normal [facility] Ketones, UA Negative Negative - 160(16) ++++ mg/dL [facility] Leukocytes, UA Negative Negative - 500+++ Mari/mcL [facility] Nitrite, UA Negative Negative - Positive [facility] pH, UA 6 5 - 9 [facility] Protein, UA Negative Negative - 1999(20) ++++ mg/dL [facility] Spec Grav, UA 1.01 1 - 1.03 [facility] Urobilinogen, UA 1.0 0.2 - 12 mg/dL [facility] Glucose random or fasting- P OCTon 02-14-2025 External Glucose Fasting Or Random (Fbs) 88 [facility] Urinalysis macro (dipstick) panel (U)on 02-11-2025 Bilirubin, UA Negative Negative - 4(70) +++ mg/dL [facility] Blood, UA Negative Negative - 50 Iraj/mcL [facility] Clarity, UA Clear [facility] Color, UA Yellow [facility] Glucose, UA Positive Negative - 1999(110) ++++ mg/dL [facility] Comment on above: 500mg/dL Interpretation and review of laboratory results Abnormal [facility] Ketones, UA Negative Negative - 160(16) ++++ mg/dL [facility] Leukocytes, UA Negative Negative - 500+++ Mari/mcL [facility] Nitrite, UA Negative Negative - Positive [facility] pH, UA 6 5 - 9 [facility] Protein, UA Negative Negative - 1999(20) ++++ mg/dL [facility] Spec Grav, UA 1.005 1 - 1.03 [facility] Urobilinogen, UA 0.2 0.2 - 12 mg/dL [facility] ALL CBC WITH AUTO DIFFon BASOPHILS ABSOLUTE AUTO 0 N [facility] Basophils/100 WBC (Bld) 0.2 % 0.2 - 2.0 % [facility] Eosinophils/100 WBC (Bld) 1.1 % 0.9 - 7.0 % [facility] Erythrocyte distribution width (RBC) [Ratio] 13.6 % 11.0 - 15.0 % [facility] IMMATURE GRANULOCYTES ABS AUTO 0.04 High [facility] Immature granulocytes/100 WBC (Bld) 0.4 % 0.0 - 0.5 % [facility] Interpretation and review of laboratory results Abnormal [facility] LYMPHOCYTES ABSOLUTE AUTO 1.2 [facility] Lymphocytes/100 WBC (Bld) 12.5 % Low 20.5 - 60.0 % [facility] MCH (RBC) [Entitic mass] 33.9 pg 26. 7 - 34.0 pg [facility] MCHC (RBC) [Mass/Vol] 33.9 g/dL 29.9 - 35.2 g/dL [facility] MCV (RBC) [Entitic vol] 100 fL High 81.0 - 99.0 fL [facility] MONOCYTES ABSOLUTE AUTO 0.4 N [facility] Monocytes/100 WBC (Bld) 3.9 % 1.7 - 12.0 % [facility] NEUTROPHILS ABSOLUTE AUTO 7.7 High [facility] Neutrophils/100 WBC (Bld) 81.9 % High 43.0 - 75.0 % [facility] Platelet mean volume (Bld) [Entitic vol] 11 fL 9.5 - 13.5 fL [facility] TBH EO # 0.1 [facility] TBH PLT 172 [facility] RBC 3.39 Low [facility] WBC 9.4 [facility] Glucose 1h post 50g loadon 0 02-01-2025 Glucose, 1 hr PP 50GM dose 198 [facility] Laboratory - Hematology and Cell countson 02-01-2025 Hematocrit (Bld) [Volume fraction] 33.9 % [facility] Hemoglobin (Bld) [Mass/Vol] 11.5 g/dL [facility] No Panel Informationon 02-01 [facility] US OB LIMITED 1+ [...] II, MD, PHD at 01-Feb-2025 10:22:21 AM [facility] Normal Not Available Comment on above: Order Comment: US OB INCOMPLETE ANATOMY Estimated Date of Delivery: 05/19/25 Gestational Age as of 01/07/2025: 21w1d Urinalysis macro (dipstick) panel (U)on 01-10-2025 Bilirubin, UA Negative Negative - 4(70) +++ mg/dL [facility] Blood, UA Negative Negative - 50 Iraj/mcL [facility] Clarity, UA Clear [facility] Color, UA Yellow [facility] Glucose, UA Negative Negative - 1999(110) ++++ mg/dL [facility] Interpretation and review of laboratory results Abnormal [facility] Ketones, UA Positive Negative - 160(16) ++++ mg/dL [facility] Leukocytes, UA Negative Negative - 500+++ Mari/mcL [facility] Nitrite, UA Negative Negative - Positive [facility] pH, UA 6 5 - 9 [facility] Protein, UA Negative Negative - 2000(20) ++++ mg/dL [facility] Spec Grav, UA 1.01 1 - 1.03 [facility] Urobilinogen, UA 0.2 0.2 - 12 mg/dL formerly [facility] No Panel InformationOrdered By: Radiologist Radiology on 01-02-2025 [facility] Work Phone: No Panel Informationon 01-02 Radiology Study observation (narrative) [facility] US OB ANATOMYon 01-02-[address] [address] Ultrasound Report Signed Patient: CARYL ZAMARRIPA MR#: [id number] : 1990 Acct:[id number] Age/Sex: 34 / F ADM Date: 01/02/25 Loc: US Attending Dr: Roscoe Diaz D.O. Ordering Physician: Roscoe Diaz D.O. Date of Service: 01/02/25 Procedure(s): US OB anatomy Accession Number(s): [id number] cc: Roscoe Diaz D.O.; Physician,Non-Staff M.DCharisse [address] [address] Patient Name: CARYL ZAMARRIPA MRN: [id number] date: 1990 Sex: F Assigned Patient Location: US Current Patient Location: US Accession/Order Number: [id number] Exam Date: 01/02/2025 22:40 Report Date: 01/02/2025 [...] Briscoe M.D. 01/02/2025 10:47 PM Dictation Location: [facility] Electronically authenticated by: [id number] Y Date: 01/02/2025 22:47 Dictated By: Suraj Briscoe D.O. Signed By: 01/02/251 DD/ 46 TD/TT: Design Agent: [facility] Radiology, Radiologist, - 01/02/2025 [place] [address] Ultrasound Report Signed Patient: CARYL ZAMARRIPA MR#: [id number] : 1990 Acct:[id number] Age/Sex: 34 / F ADM Date: 01/02/25 Loc: US Attending Dr: Roscoe Diaz D.O. Ordering Physician: Roscoe Diaz D.O. Date of Service: 01/02/25 Procedure(s): US OB anatomy Accession Number(s): [id number] cc: Roscoe Diaz D.O.; Physician,Non-Staff M.DCharisse [place] [address] Patient Name: CARYL ZAMARRIPA MRN: [id number] date: 1990 Sex: F Assigned Patient Location: US Current Patient Location: US Accession/Order Number: [id number] Exam Date: 01/02/2025 22:40 Report Date: 01/02/2025 [...] Briscoe M.D. 01/02/2025 10:47 PM Dictation Location: [facility] Electronically authenticated by: [id number] Y Date: 01/02/2025 22:47 Dictated By: Suraj Briscoe D.O. Signed By: 01/02/252249 DD/ 46 TD/TT: Design Agent: [employer] US OB CERVICAL LENGTHon 12-20 [place] [address] Ultrasound Report Signed Patient: CARYL ZAMARRIPA MR#: [id number] : 1990 Acct:[id number] Age/Sex: 34 / F ADM Date: 01/02/25 Loc: US Attending Dr: Roscoe Diaz D.O. Ordering Physician: Roscoe Diaz D.O. Date of Service: 01/02/25 Procedure(s): US OB cervical length Accession Number(s): [id number] cc: Roscoe Diaz D.O.; Physician,Non-Staff Sh[place] [id number] Patient Name: CARYL ZAMARRIPA MRN: [id number] date: 1990 Sex: F Assigned Patient Location: US Current Patient Location: US Accession/Order Number: [id number] Exam Date: 01/02/2025 22:40 Report Date: 01/02/2025 [...] Briscoe M.D. 01/02/2025 10:47 PM Dictation Location: [facility] Electronically authenticated by: [id number] Y Date: 01/02/2025 22:47 Dictated By: Suraj Briscoe D.O. Signed By: 01/02/252249 DD/ 46 TD/TT: Design Agent: [facility] Radiology, Radiologist, - 01/02/2025 [place] [address] Ultrasound Report Signed Patient: CARYL ZAMARRIPA MR#: [id number] : 1990 Acct:[id number] Age/Sex: 34 / F ADM Date: 01/02/25 Loc: US Attending Dr: Roscoe Diaz D.O. Ordering Physician: Roscoe Diaz D.O. Date of Service: 01/02/25 Procedure(s): US OB cervical length Accession Number(s): [id number] cc: Roscoe Diaz D.O.; Physician,Non-Staff [place]imon [place] [id number] Patient Name: CARYL ZAMARRIPA MRN: [id number] date: 1990 Sex: F Assigned Patient Location: Current Patient Location: US Accession/Order Number: [id number] Exam Date: 01/02/2025 22:40 Report Date: 01/02/2025 [...] Briscoe M.D. 01/02/2025 10:47 PM Dictation Location: [place] [address] Electronically authenticated by: [id number] Y Date: 01/02/2025 22:47 Dictated By: Suraj Briscoe D.O. Signed By: 01/02/25 9214 DD/ 46 TD/TT: Design Agent: [facility] AFP Single Marker Casey Bangura, Serumon 12-31-2024 Ms Alpha-Fetoprotein Negative [facility] IGP,APTIMA HPV,AGE GDLNon AGE GDLN ACOG TESTING Note . [facility] Comment on above: TESTS RESULT FLAG UN ITS REF RANGE LAB Clinician Provided Cytology Information Source.............[employer] Other.............. No. of containers..01 ThinPrep Vial Age Algo ACOG Enedina... 30-65 FLAG LEGEND: L-Low Normal,H-High Normal,LL-Alert Low,HH-Alert High <-Panic Low,>-Panic High,A-Abnormal,AA-Critical Abnormal Performed at: 01 =G [employer] [address] [place] [address] Rossy Odonnell MD, HPV APTIMA Negative Negative [facility] Comment on above: This nucleic acid am plification test detects fourteen high- risk HPV types (16,18,31,33,35,39,45,51,52,56,58,59,66,68) without differentiation. Performed at: =[facility] [employer] [address] [id number] Marketing Support Assistant: Rossy Odonnell MD, Phone: [phone] Performed at: WB - [facility] [address], [place] [id number] Marketing Support Assistant: Rossy Odonnell MD, Phone: [phone] IGP, APTIMA HPV, RFX 16/18,45 Note . [facility] Comment on above: TESTS RESULT FLAG UN ITS REF RANGE LAB DIAGNOSIS: 02 NEGATIVE FOR INTRAEPITHELIAL LESION OR MALIGNANCY. Specimen adequacy: 02 Satisfactory for evaluation. No endocervical component is identified. An endocervical component is not commonly seen in the patient. Performed by: Ronan Lucero Jackspooler ([facility]) . 02 Note: Note 02 [...] High,A-Abnormal,AA-Critical Abnormal Performed at: 02 WB [facility] [address] [place] [address] Rossy Odonnell MD, SPATULA-[facility]ONE [facility] RECURRENT VAGINITIS (HTRX)on 12-11-2024 ATOPOBIUM VAGINAE 0 [facility] ATOPOBIUM VAGINAE Not detected [facility] BVAB 2,3 (BACTERIAL VAGINOSIS ASSOCIATED BACTERIA 2, 3); MOBILUNCUS SPP 0 [facility] BVAB 2,3 (BACTERIAL VAGINOSIS ASSOCIATED BACTERIA 2, 3); MOBILUNCUS SPP Not detected [facility] HAMILTON ALBICANS, PARAPSILOSIS, TROPICALIS 0 [facility] HAMILTON ALBICANS, PARAPSILOSIS, TROPICALIS Not detected [facility] HAMILTON GLABRATA 0 [facility] HAMILTON GLABRATA Not detected [facility] HAMILTON KRUSEI 0 [facility] HAMILTON KRUSEI Not detected [facility] CHLAMYDIA TRACHOMATIS 0 [facility] CHLAMYDIA TRACHOMATIS Not detected N [facility] GARDNERELLA VAGINALIS 0 [facility] GARDNERELLA VAGINALIS Not detected N [facility] MEGASPHAERA (TYPES 1, 2) 0 [facility] MEGASPHAERA (TYPES 1, 2) Not detected [facility] MYCOPLASMA GENITALIUM 0 [facility] MYCOPLASMA GENITALIUM Not detected N [facility] NEISSERIA GONORRHOEAE 0 [facility] NEISSERIA GONORRHOEAE Not detected N [facility] TRICHOMONAS VAGINALIS 0 [facility] TRICHOMONAS VAGINALIS Not detected N [facility] Urinalysis macro (dipstick) panel (U)on 12-10-2024 Bilirubin, UA Negative Negative - 4(70) +++ mg/dL [facility] Blood, UA Negative Negative - 50 Iraj/mcL [facility] Clarity, UA Clear [facility] Color, UA Yellow [facility] Glucose, UA Negative Negative - 1999(110) ++++ mg/dL [facility] Interpretation and review of laboratory results Normal [facility] Ketones, UA Negative Negative - 160(16) ++++ mg/dL [facility] Leukocytes, UA Trace Negative - 500+++ Mari/mcL [facility] Nitrite, UA Negative Negative - Positive [facility] pH, UA 6 5 - 9 [facility] Protein, UA Negative Negative - 1999(20) ++++ mg/dL [facility] Spec Grav, UA 1.01 1 - 1.03 [facility] Urobilinogen, UA 0.2 0.2 - 12 mg/dL [facility] Urinalysis macro (dipstick) panel (U)on 11-08-2024 Bilirubin, UA Negative Negative - 4(70) +++ mg/dL [facility] Blood, UA Negative Negative - 50 Iraj/mcL [facility] Clarity, UA Clear [facility] Color, UA Yellow [facility] Glucose, UA Negative Negative - 1999(110) ++++ mg/dL [facility] Interpretation and review of laboratory results Normal [facility] Ketones, UA Negative Negative - 160(16) ++++ mg/dL [facility] Leukocytes, UA Negative Negative - 500+++ Mari/mcL [facility] Nitrite, UA Negative Negative - Positive [facility] pH, UA 6 5 - 9 [facility] Protein, UA Negative Negative - 1999(20) ++++ mg/dL [facility] Spec Grav, UA 1.015 1 - 1.03 [facility] Urobilinogen, UA 0.2 0.2 - 12 mg/dL [facility] ALL CBC WITH AUTO DIFFon BASOPHILS ABSOLUTE AUTO 0 N [facility] Basophils/100 WBC (Bld) 0.4 % 0.2 - 2.0 % [facility] Eosinophils/100 WBC (Bld) 1.2 % 0.9 - 7.0 % [facility] Erythrocyte distribution width (RBC) [Ratio] 12.4 % 11.0 - 15.0 % [facility] IMMATURE GRANULOCYTES ABS AUTO 0.02 [facility] Immature granulocytes/100 WBC (Bld) 0.2 % 0.0 - 0.5 % [facility] Interpretation and review of laboratory results Abnormal [facility] LYMPHOCYTES ABSOLUTE AUTO 2.2 [facility] Lymphocytes/100 WBC (Bld) 27.2 % 20.5 - 60.0 % [facility] MCH (RBC) [Entitic mass] 33.5 pg 26. 7 - 34.0 pg [facility] MCHC (RBC) [Mass/Vol] 35.3 g/dL High 29.9 - 35.2 g/dL [facility] MCV (RBC) [Entitic vol] 94.9 fL 81.0 - 99.0 fL [facility] MONOCYTES ABSOLUTE AUTO 0.4 N [facility] Monocytes/100 WBC (Bld) 4.9 % 1.7 - 12.0 % [facility] NEUTROPHILS ABSOLUTE AUTO 5.4 [facility] Neutrophils/100 WBC (Bld) 66.1 % 43.0 - 75.0 % [facility] Platelet mean volume (Bld) [Entitic vol] 11.2 fL 9.5 - 13.5 fL [facility] TBH EO # 0.1 [facility] TBH PLT 169 [facility] TB RBC 3.55 Low [facility] WBC 8.2 [facility] CBC without diffon Platelets (Bld) [#/Vol] 169 10*3/uL [facility] Rbc Mcv (Fl) By Automated Count 94.9 [facility] Drug Screen, Urineon 025 Amphetamine/Methamphetam ine Negative [facility] Barbiturates Negative [facility] Benzodiazepines Negative [facility] Cocaine Metabolite Negative [facility] Methadone Negative [facility] Opiates Negative [facility] Oxycodone Negative [facility] Phencyclidine Negative [facility] Thc Marijuana, Urine Negative [facility] Free Cell DNAon 2024 Free Cell Dna LOW RISK [facility] HBV surface Ag IA Qlon 10-19 Hepatitis B Surface Antigen Negative [facility] HCV Ab IA Qlon 10-19-2024 HCV Ab Ql (S) Non-Reactive [facility] HIV 1+2 Ab+HIV1 p24 Ag IA Ql on 10-19-2024 HIV 1&2 AB/AG Non-Reactive [facility] Hemoglobin A1con 10-19-2024 HbA1c (Bld) [Mass fraction] 5.1 % 4.0 - 6.0 % [facility] Laboratory - Hematology and Cell countson 10-19-2024 Hematocrit (Bld) [Volume fraction] 33.7 % [facility] Hemoglobin (Bld) [Mass/Vol] 11.9 g/dL [facility] No Panel Informationon 10-19 [facility] Rubella IGG immune statuson 10-19-2024 Rubella immune IgG IMMUNE [facility] T. pallidum IgG+IgM IA Ql (S )on 10-19-2024 Syphilis Non-Reactive [facility] Type and screenon 10-19-2024 Abo/Rh(D) Positive [facility] HCG ( test) Ql (U)o n 10-18-2024 Interpretation and review of laboratory results Abnormal [facility] Preg Test, Ur Positive Negative [facility] US OB TRANSVAGINALon [...] II, MD, PHD at 20-Oct-2024 07:21:51 AM [facility] Normal Not Available Comment on above: Order Comment: US OB TRANSVAGINAL No LMP recorded. Urinalysis macro (dipstick) panel (U)on 10-18-2024 Bilirubin, UA Negative Negative - 4(70) +++ mg/dL [facility] Blood, UA Negative Negative - 50 Iraj/mcL [facility] Clarity, UA Clear [facility] Color, UA Yellow [facility] Glucose, UA Negative Negative - 2000(110) ++++ mg/dL [facility] Interpretation and review of laboratory results Normal [facility] Ketones, UA Negative Negative - 160(16) ++++ mg/dL [facility] Leukocytes, UA Negative Negative - 500+++ Mari/mcL [facility] Nitrite, UA Negative Negative - Positive [facility] pH, UA 6 5 - 9 [facility] Protein, UA Negative Negative - 1999(20) ++++ mg/dL [facility] Spec Grav, UA 1.01 1 - 1.03 [facility] Urobilinogen, UA 1.0 0.2 - 12 mg/dL [facility] CNOVon 06-29-2024 CNOV Office Visit (INMAV[facility]) CARYL ZAMARRIPA ([id number]) 1990 F Date Time Provider Department 06/29/24 12:40 PM [facility] During your visit today, we recorded the following information about you: Pulse Blood pressure Weight 65/minute 101/68 75.8 kg Berenice Zepeda APRN.VEHICLE BODY MAKER 06/29/2024 1:25 PM Signed Caryl J Zamarripa [...] - PHENTERMINE 37.5 MG TABLET Berenice Zepeda APRN.VEHICLE BODY MAKER Allergies As of Date: 06/29/2024 (No Known [...] days. BMI 29.58kg/m2 - Omeprazole Magnesium (ACID HEAD STOCK TRANSFER CLERK, OMEPRAZOLE,) 20 mg cpDR Problem List As Of Date: 06/29/2024 (None) Prescriptions ordered this encounter Disp Refills Start End PHENTERMINE 37.5 MG TABLET 30 t* 0 06/29/2024 07/29/2024 Route: ORAL Sig: Take 1 tablet by mouth once daily for 30 days. BMI 29.58kg/m2 Encounter Status:Closed by BERENICE ZEPEDA on 06/29/24 Normal [facility] CNOVon 08-23-2023 CNOV Office Visit (INMAVN) CARYL ZAMARRIPA ([id number]) 1990 F Date Time Provider Department 08/23/23 4:00 PM [facility]ICE [facility]EPEDA [facility] During your visit today, we recorded the following information about you: Pulse Blood pressure Weight Last Period 54/minute 121/77 77.6 kg 08/08/23 Berenice Zepeda APRN.VEHICLE BODY MAKER 08/25/2023 12:23 PM Signed Caryl Ankur Zamarripa [...] - PHENTERMINE 37.5 MG TABLET Berenice Zepeda APRN.VEHICLE BODY MAKER Allergies As of Date: 08/23/2023 (No Known [...] for 2 days. - Omeprazole Magnesium (ACID HEAD STOCK TRANSFER CLERK, OMEPRAZOLE,) 20 mg cpDR Problem List [...] Status:Closed by BERENICE ZEPEDA on 08/25/23 Normal [facility] CBC W Auto Differential pane l (Bld)on 07-26-2023 Basophils (Bld) [#/Vol] 0.03 10*3/uL Normal <0.11 [facility] Comment on above: Order Comment: Speci men Type: BLOOD SPECIMEN Ordering Facility: [facility] Address: [address] [place] [address] Performed By: #### 5 7021-8 #### [facility] CLIA [id number] [address] [place] [address] Basophils/100 WBC (Bld) 0.6 % Normal [facility] Comment on above: Order Comment: Speci men Type: BLOOD SPECIMEN Ordering Facility: [facility] Address: [address] [place] [address] Performed By: #### 5 7021-8 #### [facility] CLIA [id number] [address] [place] [address] Differential cell count method Nom (Bld) Auto Normal [facility] Comment on above: Order Comment: Speci men Type: BLOOD SPECIMEN Ordering Facility: [facility] Address: [address] [place] [address] Performed By: #### 5 7021-8 #### [facility] CLIA [id number] [address] [place] [address] Eosinophils (Bld) [#/Vol] 0.13 10*3/uL Normal <0.46 [facility] Comment on above: Order Comment: Speci men Type: BLOOD SPECIMEN Ordering Facility: [facility] Address: [address] [place] [address] Performed By: #### 5 7021-8 #### [facility] CLIA [id number] [address] [place] [address] Eosinophils/100 WBC (Bld) 2.6 % Normal [facility] Comment on above: Order Comment: Speci men Type: BLOOD SPECIMEN Ordering Facility: [facility] Address: [address] [place] [address] Performed By: #### 5 7021-8 #### [facility] CLIA [id number] [address] [place] [address] Erythrocyte distribution width (RBC) [Ratio] 12.1 % Normal 11.5-15.0 [facility] Comment on above: Order Comment: Speci men Type: BLOOD SPECIMEN Ordering Facility: [facility] Address: [address] [place] [address] Performed By: #### 5 7021-8 #### [facility] CLIA [id number] [address] [place] [address] Hematocrit (Bld) [Volume fraction] 37.0 % Normal 36.0-46.0 [facility] Comment on above: Order Comment: Speci men Type: BLOOD SPECIMEN Ordering Facility: [facility] Address: [address] [place] [address] Performed By: #### 5 7021-8 #### [facility] CLIA [id number] [address] [place] [address] Hemoglobin (Bld) [Mass/Vol] 12.6 g/dL Normal 11.5-15.5 [facility] Comment on above: Order Comment: Speci men Type: BLOOD SPECIMEN Ordering Facility: [facility] Address: [address] [place] [address] Performed By: #### 5 7021-8 #### [facility] CLIA [id number] [address] [place] [address] Immature granulocytes (Bld) [#/Vol] 10*3/uL Normal <0.10 [facility] Comment on above: Order Comment: Speci men Type: BLOOD SPECIMEN Ordering Facility: [facility] Address: [address] [place] [address] Performed By: #### 5 7021-8 #### [facility] CLIA [id number] [address] [place] [address] Immature granulocytes/100 WBC (Bld) 0.2 % Normal [facility] Comment on above: Order Comment: Speci men Type: BLOOD SPECIMEN Ordering Facility: [facility] Address: [address] [place] [address] Performed By: #### 5 7021-8 #### [facility] CLIA [id number] [address] [place] [address] Lymphocytes (Bld) [#/Vol] 1.57 10*3/uL Normal 1.00-4.00 [facility] Comment on above: Order Comment: Speci men Type: BLOOD SPECIMEN Ordering Facility: [facility] Address: [address] [place] [address] Performed By: #### 5 7021-8 #### [facility] CLIA [id number] [address] [place] [address] Lymphocytes/100 WBC (Bld) 31.2 % Normal [facility] Comment on above: Order Comment: Speci men Type: BLOOD SPECIMEN Ordering Facility: [facility] Address: [address] [place] [address] Performed By: #### 5 7021-8 #### [facility] CLIA [id number] [address] [place] [address] MCH (RBC) [Entitic mass] 32.2 pg Normal 26.0-34.0 [facility] Comment on above: Order Comment: Speci men Type: BLOOD SPECIMEN Ordering Facility: [facility] Address: [address] [place] [address] Performed By: #### 5 7021-8 #### [facility] CLIA [id number] [address] [place] [address] MCHC (RBC) [Mass/Vol] 34.1 g/dL Normal 30.5-36.0 [facility] Comment on above: Order Comment: Speci men Type: BLOOD SPECIMEN Ordering Facility: [facility] Address: [address] [place] [address] Performed By: #### 5 7021-8 #### [facility] CLIA [id number] [address] [place] [address]609 MCV (RBC) [Entitic vol] 94.6 fL Normal 80.0-100.0 [facility] Comment on above: Order Comment: Speci men Type: BLOOD SPECIMEN Ordering Facility: [facility] Address: [address] [place] [address] Performed By: #### 5 7021-8 #### [facility] CLIA [id number] [address] [place] [address]32 Monocytes (Bld) [#/Vol] 0.32 10*3/uL Normal <0.87 [facility] Comment on above: Order Comment: Speci men Type: BLOOD SPECIMEN Ordering Facility: [facility] Address: [address] [place] [address] Performed By: #### 5 7021-8 #### [facility] CLIA [id number] [address] [place] [address] Monocytes/100 WBC (Bld) 6.3 % Normal [facility] Comment on above: Order Comment: Speci men Type: BLOOD SPECIMEN Ordering Facility: [facility] Address: [address] [place] [address] Performed By: #### 5 7021-8 #### [facility] CLIA [id number] [address] [place] [address] 06690 Neutrophils (Bld) [#/Vol] 2.98 10*3/uL Normal 1.45-7.50 [facility] Comment on above: Order Comment: Speci men Type: BLOOD SPECIMEN Ordering Facility: [facility] Address: [address] [place] [address] Performed By: #### 5 7021-8 #### [facility] CLIA [id number] [address] [place] [address] 81622 Neutrophils/100 WBC (Bld) 59.1 % Normal [facility] Comment on above: Order Comment: Speci men Type: BLOOD SPECIMEN Ordering Facility: [facility] Address: [address] [place] [address] Performed By: #### 5 7021-8 #### [facility] CLIA [id number] [address] [place] [address] Nucleated RBC (Bld) [#/Vol] 10*3/uL Normal <0.01 [facility] Comment on above: Order Comment: Speci men Type: BLOOD SPECIMEN Ordering Facility: [facility] Address: [address] [place] [address] Performed By: #### 5 7021-8 #### [facility] CLIA [id number] [address] [place] [address] 40903 Nucleated RBC/100 WBC (Bld) [Ratio] 0.0 /100 WBC Normal [facility] Comment on above: Order Comment: Speci men Type: BLOOD SPECIMEN Ordering Facility: [facility] Address: [address] [place] [address] Performed By: #### 5 7021-8 #### [facility] CLIA [id number] [address] [place] [address] 07170 Platelet mean volume (Bld) [Entitic vol] 10.6 fL Normal 9.0-12.7 [facility] Comment on above: Order Comment: Speci men Type: BLOOD SPECIMEN Ordering Facility: [facility] Address: [address] [place] [address] Performed By: #### 5 7021-8 #### [facility] CLIA [id number] [address] [place] [address] 34057 Platelets (Bld) [#/Vol] 226 10*3/uL Normal 150-400 [facility] Comment on above: Order Comment: Speci men Type: BLOOD SPECIMEN Ordering Facility: [facility] Address: [address] [place] [address] Performed By: #### 5 7021-8 #### [facility] CLIA [id number] [address] [place] [address] 75798 RBC (Bld) [#/Vol] 3.91 10*6/uL Normal 3.90-5.20 [facility] Comment on above: Order Comment: Speci men Type: BLOOD SPECIMEN Ordering Facility: [facility] Address: [address] [place] [address] Performed By: #### 5 7021-8 #### [facility] CLIA [id number] [address] [place] [address] 39441 WBC (Bld) [#/Vol] 5.04 10*3/uL Normal 3.70-11.00 [facility] Comment on above: Order Comment: Speci men Type: BLOOD SPECIMEN Ordering Facility: [facility] Address: [address] [place] [address] Performed By: #### 5 7021-8 #### [facility] CLIA [id number] [address] [place] [address] 22248 Comprehensive metabolic 2000 panelon 07-26-2023 Albumin [Mass/Vol] 4.4 g/dL Normal 3.9-4.9 [facility] Comment on above: Order Comment: Speci men Type: BLOOD SPECIMEN Ordering Facility: [facility] Address: [address] [place] [address] Performed By: #### 2 4323-8 #### [facility] CLIA [id number] [address] [place] [address] 40030 ALP [Catalytic activity/Vol] 40 U/L Normal 34-123 [facility] Comment on above: Order Comment: Speci men Type: BLOOD SPECIMEN Ordering Facility: [facility] Address: [address] [place] [address] Performed By: #### 2 4323-8 #### [facility] CLIA [id number] [address] [place] [address] 20789 ALT [Catalytic activity/Vol] 5 U/L Low 7-38 [facility] Comment on above: Order Comment: Speci men Type: BLOOD SPECIMEN Ordering Facility: [facility] Address: [address] [place] [address] Performed By: #### 2 4323-8 #### [facility] CLIA [id number] [address] [place] [address] 77459 Anion gap [Moles/Vol] 8 mmol/L Low 9-18 [facility] Comment on above: Order Comment: Speci men Type: BLOOD SPECIMEN Ordering Facility: [facility] Address: [address] [place] [id number] Performed By: #### 2 4323-8 #### [facility] CLIA [id number] [address] [place] [address] 24188 AST [Catalytic activity/Vol] 7 U/L Low 13-35 [facility] Comment on above: Order Comment: Speci men Type: BLOOD SPECIMEN Ordering Facility: [facility] Address: [address] [place] [address] Performed By: #### 2 4323-8 #### [facility] CLIA [id number] [address] [place] [address] 75785 Bilirubin [Mass/Vol] 0.6 mg/dL Normal 0.2-1.3 [facility] Comment on above: Order Comment: Speci men Type: BLOOD SPECIMEN Ordering Facility: [facility] Address: [address] [place] [address] Performed By: #### 2 4323-8 #### [facility] CLIA [id number] [address] [place] [address] 37224 Calcium [Mass/Vol] 9.5 mg/dL Normal 8.5-10.2 [facility] Comment on above: Order Comment: Speci men Type: BLOOD SPECIMEN Ordering Facility: [facility] Address: [address] [place] [address] Performed By: #### 2 4323-8 #### [facility] CLIA [id number] [address] [place] [address] 21861 Chloride [Moles/Vol] 105 mmol/L Normal 97-105 [facility] Comment on above: Order Comment: Speci men Type: BLOOD SPECIMEN Ordering Facility: [facility] Address: [address] [place] [id number] Performed By: #### 2 4323-8 #### [facility] CLIA [id number] [address] [place] [address] CO2 [Moles/Vol] 27 mmol/L Normal 22-30 [facility] Comment on above: Order Comment: Speci men Type: BLOOD SPECIMEN Ordering Facility: [facility] Address: [address] [place] [id number] Performed By: #### 2 4323-8 #### [facility] CLIA [id number] [address] [place] [address] 76508 Creatinine [Mass/Vol] 0.76 mg/dL Normal 0.58-0.96 [facility] Comment on above: Order Comment: Speci men Type: BLOOD SPECIMEN Ordering Facility: [facility] Address: [address] [place] [address] Performed By: #### 2 4323-8 #### [facility] CLIA [id number] [address] [place] [address] 12610 Creatinine and Glomerular filtration rate.predicted panel (S/P/Bld) 108 mL/min/1.73m??? Normal >=60 [facility] Comment on above: Order Comment: Speci men Type: BLOOD SPECIMEN Ordering Facility: [facility] Address: [address] [place] [address] Result Comment: Erma mated Glomerular Filtration Rate [...] GFR. Performed By: #### 2 4323-8 #### [facility] CLIA [id number] [address] [place] [address] 65469 Glucose [Mass/Vol] 93 mg/dL Normal 74-99 [facility] Comment on above: Order Comment: Speci men Type: BLOOD SPECIMEN Ordering Facility: [facility] Address: [address] [place] [address] Result Comment: The [place] Diabetes Association (ADA) provides guidance for [...] Standards of Medical Care in Diabetes 2016, [place] [employer]. Diabetes Care. 2016.39(Suppl 1). Performed By: #### 2 4323-8 #### [facility] CLIA [id number] [address] [place] [address] 95975 Potassium [Moles/Vol] 4.2 mmol/L Normal 3.7-5.1 [facility] Comment on above: Order Comment: Speci men Type: BLOOD SPECIMEN Ordering Facility: [facility] Address: [address] [place] [address] Performed By: #### 2 4323-8 #### [facility] CLIA [id number] [address] [place] [address] 13453 Protein [Mass/Vol] 7.2 g/dL Normal 6.3-8.0 [facility] Comment on above: Order Comment: Mary head Type: BLOOD SPECIMEN Ordering Facility: [facility] Address: [address] [place] [address] Performed By: #### 2 4323-8 #### [facility] CLIA [id number] [address] [place] [address] 75323 Sodium [Moles/Vol] 140 mmol/L Normal 136-144 [facility] Comment on above: Order Comment: Micki men Type: BLOOD SPECIMEN Ordering Facility: [facility] Address: [address] [place] [address] Performed By: #### 2 4323-8 #### [facility] CLIA [id number] [address] [place] [address] 34475 Urea nitrogen [Mass/Vol] 11 mg/dL Normal 7-21 [facility] Comment on above: Order Comment: Speci men Type: BLOOD SPECIMEN Ordering Facility: [facility] Address: [address] [place] [address] Performed By: #### 2 4323-8 #### [facility] CLIA [id number] [address] [place] [address] 15237 HBV surface Ab Ql (S)on HBV surface Ab Qn (S) <8.00 Normal [facility] Comment on above: Order Comment: Speci men Type: BLOOD SPECIMEN Ordering Facility: [facility] Address: [address] [place] [address] Result Comment: <8 m IU/mL: No serological evidence of immunity to Hepatitis B Virus. >/= 8 to <12 mIU/mL: No serological evidence of immunity to Hepatitis B Virus. >/= 12 mIU/mL: Consistent with serological evidence of immunity to Hepatitis B Virus. Performed By: #### 2 2322-2 #### [facility] CLIA [id number] [address] [place] [address] [place] HBV surface Ab Ser Qlon HBV surface Ab Ql (S) Negative Normal [facility] Comment on above: Order Comment: Micki adilene Type: BLOOD SPECIMEN Ordering Facility: [facility] Address: [address] [place] [address] Result Comment: No s erological evidence of immunity to Hepatitis B Virus. Performed By: #### 2 2322-2 #### [facility] CLIA [id number] [address] [place] [address] [place] HbA1c (Bld)on 07-26-2023 Average glucose Estimated from glycated hemoglobin (Bld) [Mass/Vol] 94 mg/dL Normal [facility] Comment on above: Order Comment: Mary head Type: BLOOD SPECIMEN Ordering Facility: [facility] Address: [address] [place] [address] Result Comment: eAG: (Estimated average glucose) is a calculated value from HgbA1c and is mechanical service representative of the average blood glucose level in the last 2-3 month period. Performed By: #### 5 5454-3 #### [facility] CLIA [id number] [facility] [place] [address] [place] HbA1c (Bld) [Mass fraction] 4.9 % Normal 4.3-5.6 [facility] Comment on above: Order Comment: Mary head Type: BLOOD SPECIMEN Ordering Facility: [facility] Address: [address] [place] [address] Result Comment: [place] Diabetes Association guidelines indicate that patients with HgbA1c in the range 5.7-6.4% are at increased risk for development of diabetes, and intervention by lifestyle modification may be beneficial. HgbA1c greater or equal to 6.5% is considered diagnostic of diabetes. Performed By: #### 5 5454-3 #### [facility] CLIA [id number] [address] [place] [address] [place] Lipid 1996 panelon 3 Cholesterol [Mass/Vol] 172 mg/dL Normal <200 [facility] Comment on above: Order Comment: Mary head Type: BLOOD SPECIMEN Ordering Facility: [facility] Address: [address] [place] [address] Result Comment: <200 mg/dL, Desirable 200-239 mg/dL, Borderline high >239 mg/dL, High Performed By: #### 2 4331-1 #### [facility] CLIA [id number] [address] [place] [address] [place] [facility] CLIA [id number] [address] [place] [address] Cholesterol in HDL [Mass/Vol] 58 mg/dL Normal >39 [facility] Comment on above: Order Comment: Mary head Type: BLOOD SPECIMEN Ordering Facility: [facility] Address: [address] [place] [address] Result Comment: 40-5 9 mg/dL, Acceptable >59 mg/dL, High: Negative risk factor for coronary heart disease <40 mg/dL, Low: Positive risk factor for coronary heart disease Performed By: #### 2 4331-1 #### [facility] CLIA [id number] [address] [facility] CLIA [id number] [address] [place] [address] 91370 Cholesterol in LDL [Mass/Vol] 103 mg/dL High <100 [facility] Comment on above: Order Comment: Speci men Type: BLOOD SPECIMEN Ordering Facility: [facility] Address: [address] [place] [address] Result Comment: <100 mg/dL, Optimal 100-129 mg/dL, Near optimal/above optimal 130-159 mg/dL, Borderline high 160-189 mg/dL, High >189 mg/dL, Very high Secondary prevention optimal LDL Cholesterol levels are recommended to be < 70 mg/dL Performed By: #### 2 4331-1 #### [facility] CLIA [id number] [address] [facility] CLIA [id number] [address] [place] [address] 85050 Cholesterol in LDL/Cholesterol in HDL [Mass ratio] 1.78 {ratio} Normal <2.54 [facility] Comment on above: Order Comment: Speci men Type: BLOOD SPECIMEN Ordering Facility: [facility] Address: [address] [place] [address] Result Comment: Refe rence: 1. National Cholesterol Education Program ATP III Guideline At-A-Glance Quick Desk Reference: National Heart, Lung, and Blood [place]. National Institutes of Health. 2001: NIH Publication No. 01-3305. 2. An International Atherosclerosis Society position paper: global recommendations for the management of dyslipidemia: executive summary, Atherosclerosis. 2014: 232(2):410-413. Performed By: #### 2 4331-1 #### [facility] CLIA [id number] [address] [facility] CLIA [id number] [address] [place] [address] 60521 Cholesterol in VLDL [Mass/Vol] 11 mg/dL Normal <30 [facility] Comment on above: Order Comment: Speci men Type: BLOOD SPECIMEN Ordering Facility: [facility] Address: [address] [place] [address] Performed By: #### 2 4331-1 #### [facility] CLIA [id number] [facility] [address] [facility] CLIA [id number] [address] [place] [address] 77190 Cholesterol non HDL [Mass/Vol] 114 mg/dL Normal <130 [facility] Comment on above: Order Comment: Speci men Type: BLOOD SPECIMEN Ordering Facility: [facility] Address: [address] [place] [address] Result Comment: <130 mg/dL, Optimal 130-159 mg/dL, Near optimal/above optimal 160-189 mg/dL, Borderline high 190-219 mg/dL, High >219 mg/dL, Very high Secondary prevention optimal non HDL Cholesterol levels are recommended to be <100 mg/dL Performed By: #### 2 4331-1 #### [facility] CLIA [id number] [address] [place] [address] LAB CLIA [id number] [address] [place] [address] 85405 Cholesterol.total/Choles terol in HDL [Mass ratio] 2.97 {ratio} Normal <5.10 [facility] Comment on above: Order Comment: Speci men Type: BLOOD SPECIMEN Ordering Facility: [facility] Address: [address] [place] [address] Performed By: #### 2 4331-1 #### [facility] CLIA [id number] [address] [place], [place] [id number] [facility] CLIA [id number] [address] [place] [address] 53577 FASTING TIME 12 hrs Normal [facility] Comment on above: Order Comment: Speci men Type: BLOOD SPECIMEN Ordering Facility: [facility] Address: [address] [place] [address] Performed By: #### 2 4331-1 #### [facility] CLIA [id number] [address] [facility] CLIA [id number] [address] [place] [id number] Triglyceride [Mass/Vol] 53 mg/dL Normal <150 [facility] Comment on above: Order Comment: Speci men Type: BLOOD SPECIMEN Ordering Facility: [facility] Address: [address] [place] [address] Result Comment: <150 mg/dL, Normal 150-199 mg/dL, Borderline high 200-499 mg/dL, High >499 mg/dL, Very high Performed By: #### 2 4331-1 #### [facility] CLIA [id number] [address] [facility] CLIA [id number] [address] [place] [address] 83740 CNOVon 07-21-2023 CNOV Office Visit (INMAVN) CARYL ZAMARRIPA ([id number]) 1990 F Date Time Provider Department 07/21/23 4:20 PM BERENICE ZEPEDA INRONNIE During your visit today, we recorded the following information about you: Pulse Blood pressure Weight Height 60/minute 112/74 80.1 kg 1.612 m Last Period 07/09/23 Berenice Zepeda APRN.VEHICLE BODY MAKER 07/22/2023 10:16 AM Signed Caryl Zamarripa is a 32 year old female here today for review of established medical problems as well as comprehensive physical examination. Obesity S/p gastric sleeve surgery in 03/2022 at [facility] in [place] Down about 70lb, has reached plateau Gym 4 days per week with cardio (treadmill, elliptical) Maybe not enough water Tries to focus on more protein, lower carbs Last 10 Encounter Wt Readings: Date: Wt: 07/21/2023 80.1 kg (176 lb 8 oz) 07/06/2022 81.6 kg (180 lb) 01/15/2022 104.3 kg (230 lb) [place] [place]AMALE MAN in [facility] Dept Implanted control HM needs: Hepatitis B Vaccine(1 of 3 - 3-dose series) Never done Depression Assessment Never done HPV Testing Never done PAST MEDICAL HISTORY Diagnosis Date GERD (gastroesophageal reflux disease) Prediabetes PAST SURGICAL HISTORY Procedure Laterality Date PT ED BARIATRIC AND METABOLIC gastric sleeve 03/2022 ALLERGIES Patient has no known allergies. 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 Sensation grossly intact. Breast/Pelvic: Per H[employer] [place]AM[place] MAN ASSESSMENT/PLAN: 1. Routine adult health maintenance - ICD9: V70.0, ICD10: Z00.00 (primary diagnosis) - Counseled on healthy diet and regular exercise - Calcium intake with supplements or by diet of 1000 mg/day for under 50, 1958-0516 mg/day for 50+ - Discussed need and benefit for weight loss. BMI 30.81 kg/(m2) - HGB A1C - COMP METABOLIC PANEL - LIPID PANEL BASIC - CBC + DIFF 2. IFG (impaired fasting glucose) - ICD9: 790.21, ICD10: (more content not included)... Normal [facility] Basophils Auto (Bld) [#/Vol] Ordered By: Reean Breaux on 10-11-2022 Basophils (Bld) [#/Vol] 0.0 10*3/uL 0.0-0.2 [facility] Basophils/100 WBC Auto (Bld) Ordered By: Reena Breaux on 10-11-2022 Basophils/100 WBC (Bld) 0.7 % . [facility] Body fluid albumin measureme nt (mass/volume)Ordered By: Reena Breaux on 10-11-2022 Albumin (Body fld) [Mass/Vol] 4.0 g/dL 3.2-5.5 [facility] CT biopsyOrdered By: Reena malhotra on 10-11-2022 Transferrin [Mass/Vol] 206 mg/dL 180-380 [facility] Complete Blood Count Auto Di ffon 10-11-2022 Basophils (Bld) [#/Vol] 0.0 10*3/uL Normal 0.0-0.2 [facility] Comment on above: Result Comment: PERF ORMED BY: [place] [address] PATHOLOGIST STONE BREAKER AMANDA CALLE M.D. Performed By: #### P HOS, [id number], CMP, CBC, [id number], FE PRO, MG #### [facility] [address] [place] [address] #### VITB1 #### [facility] , Basophils/100 WBC (Bld) 0.7 % Normal . [facility] Comment on above: Performed By: #### P HOS, [id number], CMP, CBC, [id number], FE PRO, MG #### [facility] [address] [place] [address] [place] #### VITB1 #### [facility] , Eosinophils (Bld) [#/Vol] 0.1 10*3/uL Normal 0.0-0.45 [facility] Comment on above: Performed By: #### P HOS, [id number], CMP, CBC, [id number], FE PRO, MG #### [facility] [address] [place] [address] #### VITB1 #### [facility] , Eosinophils/100 WBC (Bld) 1.7 % Normal . [facility] Comment on above: Performed By: #### P HOS, [id number], CMP, CBC, [id number], FE PRO, MG #### [facility] [address] [place] [address] #### VITB1 #### [facility] , Erythrocyte distribution width (RBC) [Ratio] 12.9 % Normal 11.9-15.3 [facility] Comment on above: Performed By: #### P HOS, [id number], CMP, CBC, [id number], FE PRO, MG #### [address] #### VITB1 #### [facility] , Hematocrit (Bld) [Volume fraction] 39.1 % Normal 34.0-46.4 [facility] Comment on above: Performed By: #### P HOS, [id number], CMP, CBC, [id number], FE PRO, MG #### [facility] [address] [place] [address] #### VITB1 #### [facility] , Hemoglobin (Bld) [Mass/Vol] 13.1 g/dL Normal 11.8-15.4 [facility] Comment on above: Performed By: #### P HOS, [id number], CMP, CBC, [id number], FE PRO, MG #### [facility] [address] [place] [address] [place] #### VITB1 #### [facility] , Lymphocytes (Bld) [#/Vol] 2.7 10*3/uL Normal 1.00-4.8 [facility] Comment on above: Performed By: #### P HOS, [id number], CMP, CBC, [id number], FE PRO, MG #### [address] [place] [address] [place] #### VITB1 #### [facility] , Lymphocytes/100 WBC (Bld) 39.8 % Normal . [facility] Comment on above: Performed By: #### P HOS, [id number], CMP, CBC, [id number], FE PRO, MG #### [address] #### VITB1 #### [facility] , MCH (RBC) [Entitic mass] 31.9 pg Normal 24.7-34.3 [facility] Comment on above: Performed By: #### P HOS, [id number], CMP, CBC, [id number], FE PRO, MG #### [address] #### VITB1 #### [facility] , MCV (RBC) [Entitic vol] 95.3 fL Normal 80-100 [facility] Comment on above: Performed By: #### P HOS, [id number], CMP, CBC, [id number], FE PRO, MG #### [address] #### VITB1 #### [facility] , Mean Corpuscular HGB Conc 33.5 g/dL Normal 32.0-35.0 [facility] Comment on above: Performed By: #### P HOS, [id number], CMP, CBC, [id number], FE PRO, MG #### [address] #### VITB1 #### [facility] , Monocytes (Bld) [#/Vol] 0.3 10*3/uL Normal 0.0-0.8 [facility] Comment on above: Performed By: #### P HOS, [id number], CMP, CBC, [id number], FE PRO, MG #### [address] #### VITB1 #### [facility] , Monocytes/100 WBC (Bld) 5.1 % Normal . [facility] Comment on above: Performed By: #### P HOS, [id number], CMP, CBC, [id number], FE PRO, MG #### [facility] [address] [place] [address] #### VITB1 #### [facility] , Neutrophils (Bld) [#/Vol] 3.6 10*3/uL Normal 1.8-7.7 [facility] Comment on above: Performed By: #### P HOS, [id number], CMP, CBC, [id number], FE PRO, MG #### [facility] [address] [place] [address] #### VITB1 #### [facility] , Neutrophils/100 WBC (Bld) 52.7 % Normal . [facility] Comment on above: Performed By: #### P HOS, [id number], CMP, CBC, [id number], FE PRO, MG #### [facility] [address] [place] [address] #### VITB1 #### [facility] , NRBC% 0.0 /100{WBC} Normal 0-0.5 [facility] Comment on above: Performed By: #### P HOS, [id number], CMP, CBC, [id number], FE PRO, MG #### [facility] [address] [place] [address] #### VITB1 #### [facility] , Platelet mean volume (Bld) [Entitic vol] 9.8 fL Normal 6.3-10.7 [facility] Comment on above: Performed By: #### P HOS, [id number], CMP, CBC, [id number], FE PRO, MG #### [facility] [address] [place] [address] [place] #### VITB1 #### [facility] , Platelets (Bld) [#/Vol] 226 10*3/uL Normal 150-450 [facility] Comment on above: Performed By: #### P HOS, [id number], CMP, CBC, [id number], FE PRO, MG #### [facility] [address] [place] [address] #### VITB1 #### [facility] , RBC (Bld) [#/Vol] 4.11 10*6/uL Normal 3.60-5.00 [facility] Comment on above: Performed By: #### P HOS, [id number], CMP, CBC, [id number], FE PRO, MG #### [facility] [address] [place] [address] #### VITB1 #### [facility] , WBC (Bld) [#/Vol] 6.8 10*3/uL Normal 3.8-11.6 [facility] Comment on above: Performed By: #### P HOS, [id number], CMP, CBC, [id number], FE PRO, MG #### [facility] [address] [place] [address] #### VITB1 #### [facility] , Comprehensive Metabolic Pane nicole 10-11-2022 Albumin [Mass/Vol] 4.0 g/dL Normal 3.2-5.5 [facility] Comment on above: Performed By: #### P HOS, [id number], CMP, CBC, [id number], FE PRO, MG #### [facility] [address] [place] [address] [place] #### VITB1 #### [facility] , Albumin/Globulin [Mass ratio] 1.4 {ratio} Normal [facility] Comment on above: Performed By: #### P HOS, [id number], CMP, CBC, [id number], FE PRO, MG #### [facility] [address] [place] [address] #### VITB1 #### [facility] , ALP [Catalytic activity/Vol] 36 U/L Normal 32-92 [facility] Comment on above: Performed By: #### P HOS, [id number], CMP, CBC, [id number], FE PRO, MG #### [facility] [address] [place] [address] [place] #### VITB1 #### [facility] , ALT [Catalytic activity/Vol] 12 U/L Normal 10-60 [facility] Comment on above: Performed By: #### P HOS, [id number], CMP, CBC, [id number], FE PRO, MG #### [facility] [address] [place] [address] #### VITB1 #### [facility] , Anion gap [Moles/Vol] 11.6 mmol/L Normal 6.0-15.0 [facility] Comment on above: Performed By: #### P HOS, [id number], CMP, CBC, [id number], FE PRO, MG #### [facility] [address] [place] [address] #### VITB1 #### [facility] , AST [Catalytic activity/Vol] 11 U/L Normal 10-42 [facility] Comment on above: Performed By: #### P HOS, [id number], CMP, CBC, [id number], FE PRO, MG #### [facility] [address] [place] [address] [place] #### VITB1 #### [facility] , Bilirubin [Mass/Vol] 0.3 mg/dL Normal 0.3-1.2 [facility] Comment on above: Performed By: #### P HOS, [id number], CMP, CBC, [id number], FE PRO, MG #### [facility] [address] [place] [address] [place] #### VITB1 #### [facility] , Calcium [Mass/Vol] 9.3 mg/dL Normal 8.2-10.2 [facility] Comment on above: Performed By: #### P HOS, [id number], CMP, CBC, [id number], FE PRO, MG #### [facility] [address] [place] [address] #### VITB1 #### [facility] , Chloride [Moles/Vol] 103 mmol/L Normal 95-114 [facility] Comment on above: Performed By: #### P HOS, [id number], CMP, CBC, [id number], FE PRO, MG #### [facility] [address] [place] [address] #### VITB1 #### [facility] , CO2 [Moles/Vol] 26.4 mmol/L Normal 22.0-30.0 [facility] Comment on above: Performed By: #### P HOS, [id number], CMP, CBC, [id number], FE PRO, MG #### [facility] [address] [place] [address] [place] #### VITB1 #### [facility] , Creatinine [Mass/Vol] 0.70 mg/dL Normal 0.44-1.03 [facility] Comment on above: Performed By: #### P HOS, [id number], CMP, CBC, [id number], FE PRO, MG #### [facility] [address] [place] [address] [place] #### VITB1 #### [facility] , Estimated GFR ( Christiano > 60 Normal [facility] Comment on above: Result Comment: GFR estimated reference range: According to KDOQI guidelines, <60 ml/min/1.73m2 is sufficient to diagnose a patient with chronic kidney disease. Performed By: #### P HOS, [id number], CMP, CBC, [id number], FE PRO, MG #### [facility] [address] [place] [address] [place] #### VITB1 #### [facility] , Estimated GFR (Non- Am > 60 Normal [facility] Comment on above: Performed By: #### P HOS, [id number], CMP, CBC, [id number], FE PRO, MG #### [facility] [address] [place] [address] [place] #### VITB1 #### [facility] , Globulin (S) [Mass/Vol] 2.8 g/dL Normal [facility] Comment on above: Performed By: #### P HOS, [id number], CMP, CBC, [id number], FE PRO, MG #### [facility] [address] [place] [address] #### VITB1 #### [facility] , Glucose [Mass/Vol] 85 mg/dL Normal 70-100 [facility] Comment on above: Result Comment: [facility] Glucose Reference Range is dependent on time and content of last meal. Glucose of more than 200 mg/dL in a nonstressed, ambulatory subject supports the diagnosis of Diabetes Mellitus. ADA recommended reference range Performed By: #### P HOS, [id number], CMP, CBC, [id number], FE PRO, MG #### [facility] [address] [place] [address] [place] #### VITB1 #### [facility] , Potassium [Moles/Vol] 4.0 mmol/L Normal 3.5-5.1 [facility] Comment on above: Performed By: #### P HOS, [id number], CMP, CBC, [id number], FE PRO, MG #### [facility] [address] [place] [address] [place] #### VITB1 #### [facility] , Protein [Mass/Vol] 6.8 g/dL Normal 6.1-7.9 [facility] Comment on above: Performed By: #### P HOS, [id number], CMP, CBC, [id number], FE PRO, MG #### [facility] [address] [place] [address] [place] #### VITB1 #### [facility] , Sodium [Moles/Vol] 137 mmol/L Normal 136-146 [facility] Comment on above: Performed By: #### P HOS, [id number], CMP, CBC, [id number], FE PRO, MG #### [facility] [address] [place] [address] [place] #### VITB1 #### [facility] , Urea nitrogen [Mass/Vol] 11 mg/dL Normal 9-23 [facility] Comment on above: Performed By: #### P HOS, [id number], CMP, CBC, [id number], FE PRO, MG #### [facility] [address] [place] [address] [place] #### VITB1 #### [facility] , Creatinine and Glomerular fi ltration rate.predicted panel (S/P/Bld)Ordered By: Reena Breaux on 10-11-2022 Creatinine [Mass/Vol] 0.70 mg/dL 0.44-1.03 [facility] Eosinophils Auto (Bld) [#/Vo l]Ordered By: [...] % Iron Saturation 24.0 % Normal 20-50 [facility] Comment on above: Performed By: #### P HOS, [id number], CMP, CBC, [id number], FE PRO, MG #### [facility] [address] [place] [address] [place] #### VITB1 #### [facility] , Ferritin [Mass/Vol] 29.2 ng/mL Normal 11-306.8 [facility] Comment on above: Performed By: #### P HOS, [id number], CMP, CBC, [id number], FE PRO, MG #### [facility] [address] [place] [address] #### VITB1 #### [facility] , Iron [Mass/Vol] 69 ug/dL Normal 40-150 [facility] Comment on above: Performed By: #### P HOS, [id number], CMP, CBC, [id number], FE PRO, MG #### [facility] [address] [place] [address] [place] #### VITB1 #### [facility] , Total Iron Binding Capacity 288 ug/dL Normal 255-450 [facility] Comment on above: Performed By: #### P HOS, [id number], CMP, CBC, [id number], FE PRO, MG #### [facility] [address] [place] [address] [place] #### VITB1 #### [facility] , Transferrin [Mass/Vol] 206 mg/dL Normal 180-380 [facility] Comment on above: Performed By: #### P HOS, [id number], CMP, CBC, [id number], FE PRO, MG #### [facility] [address] [place] [address] [place] #### VITB1 #### [facility] , Ferritin [Mass/volume] in Se rum or PlasmaOrdered By: Reena Breaux on 10-11-2022 Ferritin [Mass/Vol] 29.2 ng/mL 11-306.8 [facility] Folate [Mass/volume] in Seru m or PlasmaOrdered By: Reena Breaux on 10-11-2022 Folate [Mass/Vol] 22.2 ng/mL >5.9 [facility] Comment on above: Folate reference ran ge: >5.9 ng/mlThe WHO technical consultation on folate and vitamin [id number] has determined that folate concentrations lessthan 4 ng/ml are considered deficient. Globulin Calc (S) [Mass/Vol] Ordered By: Reena Breaux on 10-11-2022 Globulin (S) [Mass/Vol] 2.8 g/dL [facility] Hematocrit Auto (Bld) [Volum e fraction]Ordered [...] [facility] Center Magnesium [Mass/Vol] 2.1 mg/dL 1.6-2.6 [facility] Leukocytes [#/volume] correc jakob for [...] MCHC (RBC) [Mass/Vol] 33.5 g/dL 32.0-35.0 [facility] MCV Auto (RBC) [Entitic vol] Ordered By: Reena Breaux on 10-11-2022 MCV (RBC) [Entitic vol] 95.3 fL 80-100 [facility] Magnesiumon 10-11-2022 Magnesium [Mass/Vol] 2.1 mg/dL Normal 1.6-2.6 [facility] Comment on above: Performed By: #### P HOS, [id number], CMP, CBC, [id number], FE PRO, MG #### [facility] [address] [place] [address] #### VITB1 #### [facility] , Monocytes Auto (Bld) [#/Vol] Ordered By: Reena Breaux on 10-11-2022 Monocytes (Bld) [#/Vol] 0.3 10*3/uL 0.0-0.8 [facility] Monocytes/100 WBC Auto (Bld) Ordered By: Reena Breaux on 10-11-2022 Monocytes/100 WBC (Bld) 5.1 % . [facility] Neutrophils Auto (Bld) [#/Vo l]Ordered By: [...] on 10-11-2022 Phosphate [Mass/Vol] 3.9 mg/dL 2.5-4.6 [facility] Phosphoruson 10-11-2022 Phosphate [Mass/Vol] 3.9 mg/dL Normal 2.5-4.6 [facility] Comment on above: Performed By: #### P HOS, [id number], CMP, CBC, [id number], FE PRO, MG #### [place] [id number] [facility] #### VITB1 #### [facility] , Platelet mean [...] on 10-11-2022 Protein [Mass/Vol] 6.8 g/dL 6.1-7.9 [facility] RBC Auto (Bld) [#/Vol]Ordere d By: Reena Breaux on 10-11-2022 RBC (Bld) [#/Vol] 4.11 10*6/uL 3.60-5.00 [facility] Serum or plasma alanine doss otransferase measurement without P-5'-P (enzymatic activiOrdered By: Reena Breaux on 10-11-2022 ALT No additional P-5'-P [Catalytic activity/Vol] 12 U/L 10-60 [facility] Serum or plasma albumin/glob ulin mass [...] 10-11-2022 Anion gap [Moles/Vol] 11.6 mmol/L 6.0-15.0 [facility] Serum or plasma aspartate am inotransferase measurement (enzymatic activity/volume)Ordered By: Reena Breaux on 10-11-2022 AST [Catalytic activity/Vol] 11 U/L 10-42 [facility] Serum or plasma calcium gloria urement (mass/volume)Ordered By: Reena Breaux on 10-11-2022 Calcium [Mass/Vol] 9.3 mg/dL 8.2-10.2 [facility] Serum or plasma chloride gina surement (moles/volume)Ordered By: Reena Breaux on 10-11-2022 Chloride [Moles/Vol] 103 mmol/L 95-114 [facility] Serum or plasma glucose gloria urement (mass/volume)Ordered By: Reena Breaux on 10-11-2022 Glucose [Mass/Vol] 85 mg/dL 70-100 [facility] Comment on above: ADA recommended refe rence rangeRandom Glucose Reference Range is dependent on time and content of last meal. Glucose of more than 200 mg/dL in a nonstressed, ambulatory subject supports the diagnosis of Diabetes Mellitus. Serum or plasma potassium me asurement (moles/volume)Ordered By: Reena Breaux on 10-11-2022 Potassium [Moles/Vol] 4.0 mmol/L 3.5-5.1 [facility] Serum or plasma sodium measu rement (moles/volume)Ordered By: Reena Breaux on 10-11-2022 Sodium [Moles/Vol] 137 mmol/L 136-146 [facility] Serum or plasma total biliru bin measurement (mass/volume)Ordered By: Reena Breaux on 10-11-2022 Bilirubin [Mass/Vol] 0.3 mg/dL 0.3-1.2 [facility] Serum or plasma total carbon dioxide measurement (moles/volume)Ordered By: Reena Breaux on 10-11-2022 CO2 [Moles/Vol] 26.4 mmol/L 22.0-30.0 [facility] Serum or plasma urea nitroge n measurement (mass/volume)Ordered By: Reena Breaux on 10-11-2022 Urea nitrogen [Mass/Vol] 11 mg/dL 9-23 [facility] Vit. B12/Folate Profileon Cobalamin (Vitamin B12) [Mass/Vol] 1437 pg/mL High 180-914 [facility] Comment on above: Performed By: #### P HOS, [id number], CMP, CBC, [id number], FE PRO, MG #### [facility] [address] [place] [address] [place] #### VITB1 #### [facility] , Folate 22.2 ng/mL Normal >5.9 [facility] Comment on above: Result Comment: Tara te reference range: >5.9 ng/ml The WHO technical consultation on folate and vitamin b12 deficiencies has determined that folate concentrations less than 4 ng/ml are considered deficient. Performed By: #### P HOS, [id number], CMP, CBC, [id number], FE PRO, MG #### [facility] [address] [place] [address] [place] #### VITB1 #### [facility] , Vitamin B1 (Thiamine) Bloodo n 10-11-2022 Vitamin B1 (Thiamine) Blood 153.8 Normal 66.5-200.0 [facility] Comment on above: Result Comment: This test was developed and its performance characteristics determined by [facility]. It has not been cleared or approved by the Food and Drug Administration. Performed at: [address] [id number] Marketing Support Assistant: Chary Soler MD, Phone: [phone] PERFORMED BY: [place] [address] PATHOLOGIST [employer] AMANDA CALLE M.D. Performed By: #### P HOS, [id number], CMP, CBC, [id number], FE PRO, MG #### [address] #### VITB1 #### [facility] , Vitamin [...] practice guideline. JCEM. 2010; 96(7):1911-30. PERFORMED BY: [address] [place] [address] PATHOLOGIST [employer] AMANDA CALLE M.D. Performed By: #### P HOS, [id number], CMP, CBC, [id number], FE PRO, MG #### [address] #### VITB1 #### [facility] , WBC Auto (Bld) [#/Vol]Ordere d By: Reena Breaux on 10-11-2022 WBC (Bld) [#/Vol] 6.8 10*3/uL 3.8-11.6 [facility] Complete Blood Count Auto Di ffon 06-10-2022 Basophils (Bld) [#/Vol] 0.0 10*3/uL Normal 0.0-0.2 [facility] Comment on above: Order Comment: NOT F ASTING. JKW Result Comment: PERF ORMED BY: [place] [address] PATHOLOGIST [employer] AMANDA CALLE M.D. Performed By: #### V ITB1 #### [facility] , #### [id number], CMP, MG, FE PRO, PHOS, [id number], CBC #### [address] Basophils/100 WBC (Bld) 0.7 % Normal . [facility] Comment on above: Order Comment: NOT F ASTING. JKW Performed By: #### V ITB1 #### [facility] , #### [id number], CMP, MG, FE PRO, PHOS, [id number], CBC #### [address] Eosinophils (Bld) [#/Vol] 0.2 10*3/uL Normal 0.0-0.45 [facility] Comment on above: Order Comment: NOT F ASTING. JKW Performed By: #### V ITB1 #### [facility] , #### [id number], CMP, MG, FE PRO, PHOS, [id number], CBC #### [address] Eosinophils/100 WBC (Bld) 2.6 % Normal . [facility] Comment on above: Order Comment: NOT F ASTING. JKW Performed By: #### V ITB1 #### [facility] , #### [id number], CMP, MG, FE PRO, PHOS, [id number], CBC #### [address] Erythrocyte distribution width (RBC) [Ratio] 13.9 % Normal 11.9-15.3 [facility] Comment on above: Order Comment: NOT F ASTING. JKW Performed By: #### V ITB1 #### [facility] , #### [id number], CMP, MG, FE PRO, PHOS, [id number], CBC #### [address] Hematocrit (Bld) [Volume fraction] 39.1 % Normal 34.0-46.4 [facility] Comment on above: Order Comment: NOT F ASTING. JKW Performed By: #### V ITB1 #### [facility] , #### [id number], CMP, MG, FE PRO, PHOS, [id number], CBC #### [address] Hemoglobin (Bld) [Mass/Vol] 12.8 g/dL Normal 11.8-15.4 [facility] Comment on above: Order Comment: NOT F ASTING. JKW Performed By: #### V ITB1 #### [facility] , #### [id number], CMP, MG, FE PRO, PHOS, [id number], CBC #### [address] Lymphocytes (Bld) [#/Vol] 1.5 10*3/uL Normal 1.00-4.8 [facility] Comment on above: Order Comment: NOT F ASTING. JKW Performed By: #### V ITB1 #### [facility] , #### [id number], CMP, MG, FE PRO, PHOS, [id number], CBC #### [address] Lymphocytes/100 WBC (Bld) 24.6 % Normal . [facility] Comment on above: Order Comment: NOT F ASTING. JKW Performed By: #### V ITB1 #### [facility] , #### [id number], CMP, MG, FE PRO, PHOS, [id number], CBC #### [address] MCH (RBC) [Entitic mass] 31.8 pg Normal 24.7-34.3 [facility] Comment on above: Order Comment: NOT F ASTING. JKW Performed By: #### V ITB1 #### [facility] , #### [id number], CMP, MG, FE PRO, PHOS, [id number], CBC #### [address] MCV (RBC) [Entitic vol] 97.2 fL Normal 80-100 [facility] Comment on above: Order Comment: NOT F ASTING. JKW Performed By: #### V ITB1 #### [facility] , #### [id number], CMP, MG, FE PRO, PHOS, [id number], CBC #### [address] Mean Corpuscular HGB Conc 32.7 g/dL Normal 32.0-35.0 [facility] Comment on above: Order Comment: NOT F ASTING. JKW Performed By: #### V ITB1 #### [facility] , #### [id number], CMP, MG, FE PRO, PHOS, [id number], CBC #### [facility] [address] [place] [address] [place] Monocytes (Bld) [#/Vol] 0.4 10*3/uL Normal 0.0-0.8 [facility] Comment on above: Order Comment: NOT F ASTING. JKW Performed By: #### V ITB1 #### [facility] , #### [id number], CMP, MG, FE PRO, PHOS, [id number], CBC #### [facility] [address] [place] [address] [place] Monocytes/100 WBC (Bld) 7.3 % Normal . [facility] Comment on above: Order Comment: NOT F ASTING. JKW Performed By: #### V ITB1 #### [facility] , #### [id number], CMP, MG, FE PRO, PHOS, [id number], CBC #### [facility] [address] [place] [address] [place] Neutrophils (Bld) [#/Vol] 3.8 10*3/uL Normal 1.8-7.7 [facility] Comment on above: Order Comment: NOT F ASTING. JKW Performed By: #### V ITB1 #### [facility] , #### [id number], CMP, MG, FE PRO, PHOS, [id number], CBC #### [facility] [address] [place] [address] [place] Neutrophils/100 WBC (Bld) 64.8 % Normal . [facility] Comment on above: Order Comment: NOT F ASTING. JKW Performed By: #### V ITB1 #### [facility] , #### [id number], CMP, MG, FE PRO, PHOS, [id number], CBC #### [address] Nucleated RBC/100 WBC (Bld) [Ratio] 0.1 % Normal 0-0.5 [facility] Comment on above: Order Comment: NOT F ASTING. JKW Performed By: #### V ITB1 #### [facility] , #### [id number], CMP, MG, FE PRO, PHOS, [id number], CBC #### [address] Platelet mean volume (Bld) [Entitic vol] 10.6 fL Normal 6.3-10.7 [facility] Comment on above: Order Comment: NOT F ASTING. JKW Performed By: #### V ITB1 #### [facility] , #### [id number], CMP, MG, FE PRO, PHOS, [id number], CBC #### [address] Platelets (Bld) [#/Vol] 237 10*3/uL Normal 150-450 [facility] Comment on above: Order Comment: NOT F ASTING. JKW Performed By: #### V ITB1 #### [facility] , #### [id number], CMP, MG, FE PRO, PHOS, [id number], CBC #### [address] RBC (Bld) [#/Vol] 4.02 10*6/uL Normal 3.60-5.00 [facility] Comment on above: Order Comment: NOT F ASTING. JKW Performed By: #### V ITB1 #### [facility] , #### [id number], CMP, MG, FE PRO, PHOS, [id number], CBC #### [address] WBC (Bld) [#/Vol] 5.9 10*3/uL Normal 4.5-11.0 [facility] Comment on above: Order Comment: NOT F ASTING. JKW Performed By: #### V ITB1 #### [facility] , #### [id number], CMP, MG, FE PRO, PHOS, [id number], CBC #### [address] Comprehensive Metabolic Pane nicole 06-10-2022 Albumin [Mass/Vol] 3.9 g/dL Normal 3.2-5.5 [facility] Comment on above: Order Comment: NOT F ASTING. JKW Performed By: #### V ITB1 #### [facility] , #### [id number], CMP, MG, FE PRO, PHOS, [id number], CBC #### [address] Albumin/Globulin [Mass ratio] 1.4 {ratio} Normal [facility] Comment on above: Order Comment: NOT F ASTING. JKW Performed By: #### V ITB1 #### [facility] , #### [id number], CMP, MG, FE PRO, PHOS, [id number], CBC #### [address] ALP [Catalytic activity/Vol] 43 U/L Normal 32-92 [facility] Comment on above: Order Comment: NOT F ASTING. JKW Performed By: #### V ITB1 #### [facility] , #### [id number], CMP, MG, FE PRO, PHOS, [id number], CBC #### [facility] [address] [place] [address] ALT [Catalytic activity/Vol] 12 U/L Normal 10-60 [facility] Comment on above: Order Comment: NOT F ASTING. JKW Performed By: #### V ITB1 #### [facility] , #### [id number], CMP, MG, FE PRO, PHOS, [id number], CBC #### [address] Anion gap [Moles/Vol] 11.0 mmol/L Normal 6.0-15.0 [facility] Comment on above: Order Comment: NOT F ASTING. JKW Performed By: #### V ITB1 #### [facility] , #### [id number], CMP, MG, FE PRO, PHOS, [id number], CBC #### [address] AST [Catalytic activity/Vol] 10 U/L Normal 10-42 [facility] Comment on above: Order Comment: NOT F ASTING. JKW Performed By: #### V ITB1 #### [facility] , #### [id number], CMP, MG, FE PRO, PHOS, [id number], CBC #### [address] Bilirubin [Mass/Vol] 0.7 mg/dL Normal 0.3-1.2 [facility] Comment on above: Order Comment: NOT F ASTING. JKW Performed By: #### V ITB1 #### [facility] , #### [id number], CMP, MG, FE PRO, PHOS, [id number], CBC #### [address] Calcium [Mass/Vol] 9.8 mg/dL Normal 8.2-10.2 [facility] Comment on above: Order Comment: NOT F ASTING. JKW Performed By: #### V ITB1 #### [facility] , #### [id number], CMP, MG, FE PRO, PHOS, [id number], CBC #### [facility] [address] [place] [address] Chloride [Moles/Vol] 104 mmol/L Normal 95-114 [facility] Comment on above: Order Comment: NOT F ASTING. JKW Performed By: #### V ITB1 #### [facility] , #### [id number], CMP, MG, FE PRO, PHOS, [id number], CBC #### [facility] [address] CO2 [Moles/Vol] 25.3 mmol/L Normal 22.0-30.0 [facility] Comment on above: Order Comment: NOT F ASTING. JKW Performed By: #### V ITB1 #### [facility] , #### [id number], CMP, MG, FE PRO, PHOS, [id number], CBC #### [facility] [address] [place] [address] Creatinine [Mass/Vol] 0.56 mg/dL Normal 0.44-1.03 [facility] Comment on above: Order Comment: NOT F ASTING. JKW Performed By: #### V ITB1 #### [facility] , #### [id number], CMP, MG, FE PRO, PHOS, [id number], CBC #### [facility] [address] [place] [address] Estimated GFR ( Christiano > 60 [facility] Comment on above: Order Comment: NOT F ASTING. JKW Result Comment: GFR estimated reference range: According to KDOQI guidelines, <60 ml/min/1.73m2 is sufficient to diagnose a patient with chronic kidney disease. Performed By: #### V ITB1 #### [facility] , #### [id number], CMP, MG, FE PRO, PHOS, [id number], CBC #### [facility] [address] [place] [address] Estimated GFR (Non- Am > 60 [facility] Comment on above: Order Comment: NOT F ASTING. JKW Performed By: #### V ITB1 #### [facility] , #### [id number], CMP, MG, FE PRO, PHOS, [id number], CBC #### [facility] [address] Globulin (S) [Mass/Vol] 2.8 g/dL Normal [facility] Comment on above: Order Comment: NOT F ASTING. JKW Performed By: #### V ITB1 #### [facility] , #### [id number], CMP, MG, FE PRO, PHOS, [id number], CBC #### [address] Glucose [Mass/Vol] 95 mg/dL Normal 70-100 [facility] Comment on above: Order Comment: NOT F ASTING. JKW Result Comment: [place] Glucose Reference Range is dependent on time and content of last meal. Glucose of more than 200 mg/dL in a nonstressed, ambulatory subject supports the diagnosis of Diabetes Mellitus. ADA recommended reference range Performed By: #### V ITB1 #### [facility] , #### [id number], CMP, MG, FE PRO, PHOS, [id number], CBC #### [address] Potassium [Moles/Vol] 4.3 mmol/L Normal 3.5-5.1 [facility] Comment on above: Order Comment: NOT F ASTING. JKW Performed By: #### V ITB1 #### [facility] , #### [id number], CMP, MG, FE PRO, PHOS, [id number], CBC #### [facility] [address] [place] [address] Protein [Mass/Vol] 6.7 g/dL Normal 6.1-7.9 [facility] Comment on above: Order Comment: NOT F ASTING. JKW Performed By: #### V ITB1 #### [facility] , #### [id number], CMP, MG, FE PRO, PHOS, [id number], CBC #### [address] Sodium [Moles/Vol] 136 mmol/L Normal 136-146 [facility] Comment on above: Order Comment: NOT F ASTING. JKW Performed By: #### V ITB1 #### [facility] , #### [id number], CMP, MG, FE PRO, PHOS, [id number], CBC #### [address] Urea nitrogen [Mass/Vol] 7 mg/dL Low 9-23 [facility] Comment on above: Order Comment: NOT F ASTING. JKW Performed By: #### V ITB1 #### [facility] , #### [id number], CMP, MG, FE PRO, PHOS, [id number], CBC #### [address] FE PROon 10-20-202 % Iron Saturation 19.0 % Low 20-50 [facility] Comment on above: Order Comment: NOT F ASTING. JKW Performed By: #### P HOS, [id number], CMP, CBC, [id number], FE PRO, MG #### [facility] [address] [place] [address] #### VITB1 #### [facility] , Ferritin [Mass/Vol] 46.7 ng/mL Normal 11-306.8 [facility] Comment on above: Order Comment: NOT F ASTING. JKW Performed By: #### P HOS, [id number], CMP, CBC, [id number], FE PRO, MG #### [facility] [address] [place] [address] #### VITB1 #### [facility] , Iron [Mass/Vol] 50 ug/dL Normal 40-150 [facility] Comment on above: Order Comment: NOT F ASTING. JKW Performed By: #### P HOS, [id number], CMP, CBC, [id number], FE PRO, MG #### [facility] [address] [place] [address] #### VITB1 #### [facility] , Total Iron Binding Capacity 260 ug/dL Normal 255-450 [facility] Comment on above: Order Comment: NOT F ASTING. JKW Performed By: #### P HOS, [id number], CMP, CBC, [id number], FE PRO, MG #### [facility] [address] [place] [address] #### VITB1 #### [facility] , Transferrin [Mass/Vol] 186 mg/dL Normal 180-380 [facility] Comment on above: Order Comment: NOT F ASTING. JKW Performed By: #### P HOS, [id number], CMP, CBC, [id number], FE PRO, MG #### [facility] [address] [place] [address] [place] #### VITB1 #### [facility] , Magnesiumon 06-10-2022 Magnesium [Mass/Vol] 2.0 mg/dL Normal 1.6-2.6 [facility] Comment on above: Order Comment: NOT F ASTING. JKW Performed By: #### P HOS, [id number], CMP, CBC, [id number], FE PRO, MG #### [facility] [address] [place] [address] [place] #### VITB1 #### [facility] , Phosphoruson 06-10-2022 Phosphate [Mass/Vol] 4.1 mg/dL Normal 2.5-4.6 [facility] Comment on above: Order Comment: NOT F ASTING. JKW Performed By: #### P HOS, [id number], CMP, CBC, [id number], FE PRO, MG #### [facility] [address] [place] [address] [place] #### VITB1 #### [facility] , Vit. B12/Folate Profileon Cobalamin (Vitamin B12) [Mass/Vol] 575 pg/mL Normal 180-914 [facility] Comment on above: Order Comment: NOT F ASTING. JKW Performed By: #### P HOS, [id number], CMP, CBC, [id number], FE PRO, MG #### [facility] [address] [place] [address] [place] #### VITB1 #### [facility] , Folate 14.3 ng/mL Normal >5.9 [facility] Comment on above: Order Comment: NOT F ASTING. JKW Result Comment: [place] reference range: >5.9 ng/ml The WHO technical consultation on folate and vitamin b12 deficiencies has determined that folate concentrations less than 4 ng/ml are considered deficient. Performed By: #### P HOS, [id number], CMP, CBC, [id number], FE PRO, MG #### [facility] [address] [place] [address] #### VITB1 #### [facility] , Vitamin B1 (Thiamine) Bloodo n 06-10-2022 Vitamin B1 (Thiamine) Blood 143.0 Normal 66.5-200.0 [facility] Comment on above: Order Comment: NOT F ASTING. JKW Result Comment: This test was developed and its performance characteristics determined by [facility]. It has not been cleared or approved by the Food and Drug Administration. Performed at: [address] [id number] Marketing Support Assistant: Chary Soler MD, Phone: [phone] PERFORMED BY: [place] [address] PATHOLOGIST STONE BREAKER AMANDA CALLE M.D. Performed By: #### P HOS, [id number], CMP, CBC, [id number], FE PRO, MG #### [facility] [address] [place] [address] #### VITB1 #### [facility] , Vitamin D [...] practice guideline. JCEM. 2010; 96(7):1911-30. PERFORMED BY: [address] [place] [address] PATHOLOGIST STONE BREAKER AMANDA CALLE M.D. Performed By: #### P HOS, [id number], CMP, CBC, [id number], FE PRO, MG #### [address] #### VITB1 #### [facility] , HGB A1Con 01-15-2022 Average glucose Estimated from glycated hemoglobin (Bld) [Mass/Vol] 128 mg/dL Normal [facility] Comment on above: Order Comment: Speci [facility] Type: BLOOD SPECIMEN Ordering Facility: [facility] Address: [address] [place] [address] Result Comment: eAG: (Estimated average glucose) is a calculated value from HgbA1c and is mechanical service representative of the average blood glucose level in the last 2-3 month period. Performed By: #### H BA1C #### [facility] CLIA [id number] [address] [place], [place] [address] [address] [place] HbA1c (Bld) [Mass fraction] 6.1 % High 4.3-5.6 [facility] Comment on above: Order Comment: Speci men Type: BLOOD SPECIMEN Ordering Facility: [facility] Address: [address] [place] [address] Result Comment: Amer ican Diabetes Association guidelines indicate that patients with HgbA1c in the range 5.7-6.4% are at increased risk for development of diabetes, and intervention by lifestyle modification may be beneficial. HgbA1c greater or equal to 6.5% is considered diagnostic of diabetes. Performed By: #### H BA1C #### [facility] CLIA [id number] [address] [facility] [address] [id number] [address] [place] [facility] 01-15-2022 Potassium [Moles/Vol] 4.9 mmol/L Normal 3.7-5.1 [facility] Comment on above: Order Comment: Speci men Type: BLOOD SPECIMEN Ordering Facility: [facility] Address: [address] [place] [id number] Performed By: #### K 1 #### [facility] CLIA [id number] [address] [facility] [place], [place] [id number] [place] [address] [place] Potassium [Moles/Vol] 4.9 mmol/L 3.7 - 5.1 mmol/L [facility] Vital Signs Date Time Vital Sign Value Performing Clinician Facility 05-01-2025 09:22-0400 Body mass index (BMI) [Ratio] 38.11 kg/m2 Rosy KRUGER Work Phone: [facility] 05-01-2025 09:22-0400 Body weight 97.58 kg Rosy KRUGER Work Phone: [facility] 05-01-2025 09:22-0400 Diastolic blood pressure 60 mm[Hg] Rosy KRUGER Work Phone: [facility] 05-01-2025 09:22-0400 Systolic blood pressure 110 mm[Hg] Rosy KRUGER Work Phone: [facility] 04-24-2025 11:50-0400 Body mass index (BMI) [Ratio] 37.22 kg/m2 Roscoe Joe DO Work Phone: [facility] 04-24-2025 11:50-0400 Body weight 95.31 kg Roscoe Joe DO Work Phone: [facility] 04-24-2025 11:50-0400 Diastolic blood pressure 74 mm[Hg] Roscoe Joe DO Work Phone: [facility] 04-24-2025 11:50-0400 Systolic blood pressure 116 mm[Hg] Roscoe Joe DO Work Phone: [facility] 04-10-2025 15:14-0400 Body mass index (BMI) [Ratio] 37.22 kg/m2 Roscoe Joe DO Work Phone: [facility] 04-10-2025 15:14-0400 Body weight 95.31 kg Roscoe Joe DO Work Phone: [facility] 04-10-2025 15:14-0400 Diastolic blood pressure 70 mm[Hg] Roscoe Joe DO Work Phone: [facility] 04-10-2025 15:14-0400 Systolic blood pressure 120 mm[Hg] Roscoe Joe DO Work Phone: [facility] 03-27-2025 14:01-0400 Body mass index (BMI) [Ratio] 36.28 kg/m2 Roscoe Joe DO Work Phone: [facility] 03-27-2025 14:01-0400 Body weight 92.9 kg Roscoe Joe DO Work Phone: [facility] 03-27-2025 14:01-0400 Diastolic blood pressure 72 mm[Hg] Roscoe Joe DO Work Phone: [facility] 03-27-2025 14:01-0400 Systolic blood pressure 116 mm[Hg] Roscoe Joe DO Work Phone: [facility] 03-13-2025 15:41-0400 Body mass index (BMI) [Ratio] 36.46 kg/m2 Rosy KRUGER Work Phone: [facility] 03-13-2025 15:41-0400 Body weight 93.35 kg Rosy KRUGER Work Phone: [facility] 03-13-2025 15:41-0400 Diastolic blood pressure 70 mm[Hg] Rosy Quiroz PA Work Phone: [facility] 03-13-2025 15:41-0400 Systolic blood pressure 110 mm[Hg] Rosy Quiroz PA Work Phone: [facility] 03-12-2025 13:35-0400 Body height 160 cm Daisha Lavoy PA-C Work Phone: [facility] 03-12-2025 13:35-0400 Body mass index (BMI) [Ratio] 36.38 kg/m2 Daisha Lavoy PA-C Work Phone: [facility] 03-12-2025 13:35-0400 Body weight 93.17 kg Daisha Lavoy PA-C Work Phone: [facility] 03-12-2025 13:35-0400 Diastolic blood pressure 57 mm[Hg] Daisha Lavoy PA-C Work Phone: [facility] 03-12-2025 13:35-0400 Heart rate 76 /min Daisha Lavoy PA-C Work Phone: [facility] 03-12-2025 13:35-0400 Systolic blood pressure 99 mm[Hg] Daisha Lavoy PA-C Work Phone: [facility] 02-27-2025 14:00-0400 Body mass index (BMI) [Ratio] 36.1 kg/m2 Roscoe Joe DO Work Phone: [facility] 02-27-2025 14:00-0400 Body weight 92.44 kg Roscoe Joe DO Work Phone: [facility] 02-27-2025 14:00-0400 Diastolic blood pressure 60 mm[Hg] Roscoe Joe DO Work Phone: [facility] 02-27-2025 14:00-0400 Systolic blood pressure 110 mm[Hg] Roscoe Joe DO Work Phone: [facility] 02-14-2025 15:17-0400 Body mass index (BMI) [Ratio] 36.21 kg/m2 Hien Giles RN Work Phone: [facility] 02-14-2025 15:17-0400 Body weight 92.72 kg Hien Giles RN Work Phone: [facility] 02-11-2025 11:36-0400 Body mass index (BMI) [Ratio] 35.87 kg/m2 Rosy Quiroz PA Work Phone: [facility] 02-11-2025 11:36-0400 Body weight 91.85 kg Rosy Oraila PA Work Phone: [facility] 02-11-2025 11:36-0400 Diastolic blood pressure 60 mm[Hg] Rosy Oralia PA Work Phone: [facility] 02-11-2025 11:36-0400 Systolic blood pressure 110 mm[Hg] Rosy Quiroz PA Work Phone: [facility] 02-07-2025 10:43-0400 Body height 160 cm Scanning External [facility] 01-10-2025 10:33-0400 Body mass index (BMI) [Ratio] 34.92 kg/m2 Roscoe Joe DO Work Phone: [facility] 01-10-2025 10:33-0400 Body weight 89.41 kg Roscoe Joe DO Work Phone: [facility] 01-10-2025 10:33-0400 Diastolic blood pressure 68 mm[Hg] Roscoe Joe DO Work Phone: [facility] 01-10-2025 10:33-0400 Systolic blood pressure 110 mm[Hg] Roscoe Joe DO Work Phone: [facility] 12-10-2024 11:23-0400 Body mass index (BMI) [Ratio] 33.66 kg/m2 Rosy Oralia PA Work Phone: [facility] 12-10-2024 11:23-0400 Body weight 86.18 kg Rosy Quiroz PA Work Phone: [facility] 12-10-2024 11:23-0400 Diastolic blood pressure 70 mm[Hg] Rosy KRUGER Work Phone: [facility] 12-10-2024 11:23-0400 Systolic blood pressure 106 mm[Hg] Rosy Quiroz PA Work Phone: [facility] 11-08-2024 11:04-0400 Body mass index (BMI) [Ratio] 32.24 kg/m2 Roscoe Joe DO Work Phone: [facility] 11-08-2024 11:04-0400 Body weight 82.56 kg Roscoe Joe DO Work Phone: [facility] 11-08-2024 11:04-0400 Diastolic blood pressure 60 mm[Hg] Roscoe Joe DO Work Phone: [facility] 11-08-2024 11:04-0400 Systolic blood pressure 100 mm[Hg] Roscoe Joe DO Work Phone: [facility] 10-18-2024 13:54-0500 Body mass index (BMI) [Ratio] 31.38 kg/m2 Nom Nurse [facility] 10-18-2024 13:54-0500 Body weight 80.34 kg [facility] Nurse [facility] 08-02-2024 15:58-0500 Body temperature 96.8 [degF] Edu Alvarez YARN TWISTER Work Phone: [facility] 08-02-2024 15:58-0500 Diastolic blood pressure 66 mm[Hg] Edu Alvarez YARN TWISTER Work Phone: [facility] 08-02-2024 15:58-0500 Heart rate 88 /min Edu Alvarez YARN TWISTER Work Phone: [facility] 08-02-2024 15:58-0500 SaO2% (BldA) [Mass fraction] 98 % Edu Alvarez YARN TWISTER Work Phone: [facility] 08-02-2024 15:58-0500 Systolic blood pressure 106 mm[Hg] Edu Alvarez YARN TWISTER Work Phone: [facility] 07-25-2024 14:19-0500 Body height 160 cm Sina Garner DO Work Phone: [facility] 07-25-2024 14:19-0500 Body mass index (BMI) [Ratio] 30.82 kg/m2 Sina Garner DO Work Phone: [facility] 07-25-2024 14:19-0500 Body weight 78.93 kg Sina Garner DO Work Phone: [facility] 07-25-2024 14:19-0500 Diastolic blood pressure 68 mm[Hg] Sina Garner DO Work Phone: [facility] 07-25-2024 14:19-0500 Heart rate 68 /min Sina Garner DO Work Phone: [facility] 07-25-2024 14:19-0500 Respiratory rate 12 /min Sina Garner DO Work Phone: [facility] 07-25-2024 14:19-0500 SaO2% (BldA) [Mass fraction] 99 % Sina Garner DO Work Phone: [facility] 07-25-2024 14:19-0500 Systolic blood pressure 128 mm[Hg] Sina Garner DO Work Phone: [facility] 06-29-2024 12:36-0500 Body mass index (BMI) [Ratio] 29.58 kg/m2 Berenice Zepeda APRN.VEHICLE BODY MAKER Work Phone: [facility] 06-29-2024 12:36-0500 Body weight 75.75 kg Berenice Zepeda SUPERVISOR [employer]INTENA[employer]CE [employer].VEHICLE BODY MAKER Work Phone: [facility] 06-29-2024 12:36-0500 Diastolic blood pressure 68 mm[Hg] Berenice Zepeda APRN.VEHICLE BODY MAKER Work Phone: [facility] 06-29-2024 12:36-0500 Heart rate 65 /min Berenice Zepeda APRN.VEHICLE BODY MAKER Work Phone: [facility] 06-29-2024 12:36-0500 Systolic blood pressure 101 mm[Hg] Berenice Evelyn SUPERVISOR [employer] MAINTENANCE SERVICES.VEHICLE BODY MAKER Work Phone: [facility] 09-23-2023 14:27-0500 Body height 160 cm Berenice Evelyn SUPERVISOR [employer] MAINTENANCE SERVICES.VEHICLE BODY MAKER Work Phone: [facility] 09-23-2023 14:27-0500 Body weight 76.2 kg Berenice Evelyn SUPERVISOR [employer] MAINTENA[employer]CE SERVICES.VEHICLE BODY MAKER Work Phone: [facility] 07-21-2023 16:05-0500 Body height 161.2 cm Berenice Evelyn SUPERVISOR [employer] MAINTENA[employer]CE SERVICES.VEHICLE BODY MAKER Work Phone: [facility] 07-21-2023 16:05-0500 Body weight 80.06 kg Berenice Evelyn SUPERVISOR [employer] MAINTENANCE SERVICES.VEHICLE BODY MAKER Work Phone: [facility] 07-21-2023 16:05-0500 Diastolic blood pressure 74 mm[Hg] Berenice Evelyn SUPERVISOR SH[employer] MAINTENANCE SERVICES.VEHICLE BODY MAKER Work Phone: [facility] 07-21-2023 16:05-0500 Heart rate 60 /min Berenice Evelyn SUPERVISOR [employer] MAINTENA[employer]CE SERVICES.VEHICLE BODY MAKER Work Phone: [facility] 07-21-2023 16:05-0500 Systolic blood pressure 112 mm[Hg] Berenice Evelyn SUPERVISOR SH[employer] MAINTENANCE SERVICES.VEHICLE BODY MAKER Work Phone: [facility] 01-15-2022 11:50-0400 Body height 162.6 cm Dasha Lujan MD Work Phone: [facility] 01-15-2022 11:50-0400 Body temperature 98.01 [degF] Dasha Lujan MD Work Phone: [facility] 01-15-2022 11:50-0400 Body weight 104.33 kg Dasha Lujan MD Work Phone: [facility] 01-15-2022 11:50-0400 Diastolic blood pressure 86 mm[Hg] Dasha Lujan MD Work Phone: [facility] 01-15-2022 11:50-0400 Heart rate 65 /min Dasha Lujan MD Work Phone: [facility] 01-15-2022 11:50-0400 Respiratory rate 16 /min Dasha Lujan MD Work Phone: [facility] 01-15-2022 11:50-0400 Systolic blood pressure 124 mm[Hg] Dasha Lujan MD Work Phone: [facility] Encounters Encounter Date Encounter Type Care Provider Facility Start: 05-01-2025 End: 05-01-2025 flow sheet Rosy KRUGER Work Phone: [facility] Comment on above: 37 weeks gestation o f ([facility]); Third trimester ([facility]); H/O gastric sleeve; Insulin controlled gestational diabetes mellitus (GDM) during , antepartum ([facility]) Start: 05-01-2025 End: 05-01-2025 Office outpatient visit 25 minutes Josiah Chopra APRNUrvew Work Phone: [facility] Comment on above: Gestational diabetes requiring insulin (Primary Dx) Start: 05-01-2025 End: 05-01-2025 Refill Josiah Chopra SUPERVISOR SHIP MAINTENANCE SERVICESUrvew Work Phone: [facility] Comment on above: Gestational diabetes requiring insulin Start: 04-29-2025 End: 04-29-2025 Clinisync Result Encounter Rosy KRUGER Work Phone: [facility] Unsolicited Start: 04-29-2025 End: 04-29-2025 Clinisync Result Encounter Rosy KRUGER Work Phone: [facility] Unsolicited Start: 04-24-2025 End: 04-24-2025 Bamboo flowsheet Roscoe Joe DO Work Phone: [facility] Start: 04-24-2025 End: 04-24-2025 Bamboo flowsheet Roscoe Joe DO Work Phone: [facility] [place] Start: 04-24-2025 End: 04-24-2025 flow sheet Roscoe Joe DO Work Phone: [facility] Comment on above: Third trimester preg piper ([facility]); 36 weeks gestation of ([facility]) Start: 04-24-2025 End: 04-24-2025 ambulatory ROSCOE JOE Not Available Start: 04-23-2025 End: 04-23-2025 Clinisync Result Encounter Rosy KRUGER Work Phone: [facility] Unsolicited Start: 04-23-2025 End: 04-23-2025 Clinisync Result Encounter Rosy KRUGER Work Phone: [facility] Unsolicited Start: 04-23-2025 End: 04-23-2025 Telephone encounter Devika MALDONADO Work Phone: [facility] Start: 04-15-2025 End: 04-15-2025 Clinisync Result Encounter Rosy KRUGER Work Phone: [facility] Unsolicited Start: 04-15-2025 End: 04-15-2025 Clinisync Result Encounter Rosy KRUGER Work Phone: [facility] Unsolicited Start: 04-15-2025 End: 04-15-2025 Telephone encounter Beulah Miller RN [facility] Start: 04-10-2025 End: 04-10-2025 flow sheet Roscoe Joe DO Work Phone: [facility] Comment on above: 34 weeks gestation o f ([facility]); Third trimester ([facility]); H/O gastric sleeve; Insulin controlled gestational diabetes mellitus (GDM) during , antepartum ([facility]) Start: 04-10-2025 End: 04-10-2025 ambulatory ROSCOE JOE Not Available Start: 04-10-2025 End: 04-10-2025 Bamboo flowsheet Roscoe Joe DO Work Phone: [facility] Start: 04-10-2025 End: 04-10-2025 Bamboo flowsheet Roscoe Joe DO Work Phone: [facility] Start: 04-09-2025 End: 04-09-2025 Telephone encounter Devika Pope JOEL Work Phone: [facility] Start: 04-08-2025 End: 04-08-2025 Clinisync Result [...] Blanquita Toney RN [facility] Start: 04-01-2025 End: 04-01-2025 ambulatory [facility] Start: 04-01-2025 End: 04-01-2025 Office outpatient visit 25 minutes Daisha Emelia Morel PA-C Work Phone: [facility] Comment on above: Gestational diabetes requiring insulin (Primary Dx) Start: 03-27-2025 End: 03-27-2025 Bamboo flowsheet Roscoe Jeo DO Work Phone: [facility] Start: 03-27-2025 End: 03-27-2025 Bamboo flowsheet Roscoe Joe DO Work Phone: [facility] [place] Start: 03-27-2025 End: 03-27-2025 flow sheet Roscoe Welcho DO Work Phone: [facility] Comment on above: Third trimester preg piper ([facility]); H/O gastric sleeve; Gestational diabetes mellitus (GDM), antepartum, gestational diabetes method of control unspecified ([facility]); 32 weeks gestation of ([facility]) Start: 03-27-2025 End: 03-27-2025 ambulatory ROSCOE JOE Not Available Start: 03-26-2025 End: 03-26-2025 Telephone encounter Devika MALDONADO Work Phone: [facility] Start: 03-19-2025 End: 03-19-2025 Telephone encounter Fatimah MALDONADO [facility] Start: 03-13-2025 End: 03-13-2025 flow sheet Rosy KRUGER Work Phone: [facility] Comment on above: 30 weeks gestation o f ([facility]); Third trimester ([facility]); H/O gastric sleeve; Gestational diabetes mellitus (GDM), antepartum, gestational diabetes method of control unspecified ([facility]) Start: 03-13-2025 End: 03-13-2025 ambulatory ROSY QUIROZ Not Available Start: 03-13-2025 End: 03-13-2025 Bamboo flowsheet Rosy KRUGER Work Phone: [facility] Start: 03-13-2025 End: 03-13-2025 Bamboo flowsheet Rosy KRUGER Work Phone: [facility] Start: 03-12-2025 End: 03-12-2025 ambulatory DAISHA MOREL [facility] Start: 03-12-2025 End: 03-12-2025 Office outpatient visit 25 minutes Daisha Morel PA-C Work Phone: [facility] Comment on above: Gestational diabetes mellitus (GDM) in second trimester, gestational diabetes method of control unspecified (Primary Dx); Gestational diabetes requiring insulin Start: 03-05-2025 End: 03-05-2025 Telephone encounter Devika Pope JOEL Work Phone: [facility] Start: 02-27-2025 End: 02-27-2025 flow sheet Roscoe Joe DO Work Phone: [facility] Comment on above: 28 weeks gestation o f ([facility]); Third trimester ([facility]); H/O gastric sleeve; Gestational diabetes mellitus (GDM), antepartum, gestational diabetes method of control unspecified ([facility]) Start: 02-27-2025 End: 02-27-2025 ambulatory ROSCOE JOE Not Available Start: 02-26-2025 End: 02-26-2025 Telephone encounter Devika Pope JOEL Work Phone: [facility] Start: 02-14-2025 End: 02-14-2025 ambulatory Hien Giles RN Work Phone: [facility] Comment on above: Gestational diabetes mellitus (GDM) in second trimester, gestational diabetes method of control unspecified (Primary Dx) Start: 02-11-2025 End: 02-11-2025 flow sheet Rosy KRUGER Work Phone: [facility] Comment on above: Second trimester pre gnancy ([facility]); 26 weeks gestation of ([facility]); H/O gastric sleeve Start: 02-11-2025 End: 02-11-2025 ambulatory ROSY QUIROZ Not Available Start: 02-07-2025 End: 02-07-2025 Chart abstracting Scanning Provider External Maternal- Medicine at [facility] Start: 02-01-2025 End: 02-01-2025 Clinisync Result [...] Office outpatient visit 25 minutes Edu Alvarez YARN TWISTER Work Phone: [facility] Comment on above: Acute cough (Primary Dx); Chest congestion; Bronchitis Start: 07-25-2024 End: 07-25-2024 ambulatory SINA GARNER Not Available Start: 07-25-2024 End: 07-25-2024 Office outpatient new 45 minutes Sina Garner DO Work Phone: [facility] Comment on above: Rectal bleeding (Cony mike Dx) Start: 07-25-2024 End: 07-25-2024 Bamboo flowsheet Sina Garner DO Work Phone: [facility] Start: 07-25-2024 End: 07-25-2024 Bamboo flowsheet Sina Garner DO Work Phone: [facility] Start: 06-29-2024 End: 06-29-2024 ambulatory DASHA LUJAN Facility:[facility] Start: 06-29-2024 End: 06-29-2024 Patient encounter procedure Berenice Webbtter SUPER[employer]OR [employer].VEHICLE BODY MAKER Work Phone: Internal Medicine Comment on above: Encounter for weight management (Primary Dx); Overweight Start: 03-06-2024 ambulatory Berenice wheatley SUPER[employer]OR [employer]IC[employer] MAKER Work Phone: Internal Medicine Start: 03-06-2024 Patient encounter procedure Berenice Evelyn SUPER[employer]OR [employer]ICLE [employer] MAKER Work Phone: Internal Medicine Comment on above: Prescription Start: 09-23-2023 End: 09-23-2023 ambulatory Berenice Evelyn [employer]PER[employer]ICLE [employer] MAKER Work Phone: Internal Medicine Comment on above: Encounter for weight management; Overweight (BMI 25.0-29.9) Start: 09-23-2023 End: 09-23-2023 Telemedicine consultation with patient Berenice Zepeda APRN.VEHICLE BODY MAKER Work Phone: [facility] Start: 08-23-2023 End: 08-23-2023 ambulatory BERENICE ZEPEDA Facility:[facility] Start: 07-26-2023 End: 07-26-2023 ambulatory DASHA LUJAN Facility:[facility] Start: 07-21-2023 End: 07-21-2023 ambulatory BERENICE ZEPEDA Facility:[facility] Start: 07-21-2023 End: 07-21-2023 Patient encounter procedure Berenice Webbtter SUPER[employer]HICLE [employer]ODY MAKER Work Phone: Internal Medicine Comment on above: Routine adult health maintenance (Primary Dx); IFG (impaired fasting glucose); Encounter for weight management; Class 1 obesity due to excess calories with body mass index (BMI) of 30.0 to 30.9 in adult, unspecified whether serious comorbidity present; Encounter for immunization; Immunity status testing Start: 07-21-2023 End: 07-21-2023 Patient encounter status Berenice Zepeda MIRZA Work Phone: [facility] Work Phone: Start: 06-29-2023 ambulatory Dasha Lujan MD Work Phone: Internal Medicine Comment on above: Prescription Start: 10-11-2022 End: 10-11-2022 ambulatory Reena Breaux Facility:[facility] Start: 10-11-2022 End: 10-11-2022 ambulatory MD Dasha Lujan Work Phone: [facility] Work Phone: Start: 10-11-2022 End: 10-11-2022 Patient encounter procedure MD Dasha Lujan Work Phone: [facility] Start: 06-10-2022 End: 06-10-2022 ambulatory Reena [...] Roscoe Joe DO Work Phone: Start: 04-08-2025 OB BPP W NON-STRESS Rosy KRUGER Work Phone: Start: 04-01-2025 OB BPP W NON-STRESS Rosy KRUGER Work [...] dip stick/tabl et rgnt non-auto w/o micrscp Roscoevan Welcho DO Work Phone: Start: 01-02-2025 US [...] (8 - Td or Tdap) [facility] Start: 07-21-2033 Urine microalbumin profile [facility] Start: 12-11-2027 Screening for malign ant neoplasm of cervix [facility] Start: 03-12-2026 Adult BMI Screening Adult BMI Screen ing [facility] Start: 03-12-2026 Tobacco Screening Tobacco Screening [facility] Start: 02-14-2026 Adult BMI Screening Adult BMI Screen ing [facility] Start: 05-01-2025 End: 05-01-2025 Telemedicine consultation with patient 05/01/2025 9:30 AM EDT Telemedicine Maternal- Medicine at [facility] [address] [place] [phone] Josiah Chopra, [facility] [address] [place] [address] Maternal- Medicine at [facility] Start: 05-01-2025 End: 05-01-2025 Patient encounter procedure 05/01/2025 9:20 AM EDT Routine CHIARA CAAL [address] [place] [place] [address] Rosy Quiroz PA [address] [place], [place] [id number] [facility] Start: 04-24-2025 End: 04-24-2026 CULTURE, GROUP B STREP WITH SUSCEPTIBLITY CULTURE, GROUP B STREP WITH SUSCEPTIBLITY Lab Routine Third trimester ([facility]) Expected: 04/24/2025, Expires: 04/24/2026 [facility] Work Phone: Comment on above: Expected: 04/24/2025 , Expires: 04/24/2026 Start: 04-24-2025 End: 04-24-2025 Patient encounter procedure [facility] Comment on above: Arrived Start: 04-22-2025 Influenza vaccination [facility] Start: 04-10-2025 End: 04-10-2025 Patient encounter procedure [facility] [place] [place] [facility] Comment on above: Arrived Start: 04-01-2025 End: 04-01-2025 Telemedicine consultation with patient 04/01/2025 10:00 AM EDT Telemedicine Maternal- Medicine at [facility] [address] [place] [phone] Daisha Morel PA-C [address] [id number] Maternal- Medicine at [facility] Start: 03-27-2025 End: 03-27-2025 Patient encounter procedure [facility] Comment on above: Arrived Start: 03-13-2025 End: 03-13-2025 Patient encounter procedure [facility] Comment on above: Arrived Start: 02-27-2025 End: 02-27-2025 Professional / ancillary services management 02/27/2025 1:00 PM EDT Ancillary Procedure [facility] [address] [place] [phone] [facility] Start: 02-14-2025 End: 02-14-2025 ambulatory 02/14/2025 1:30 PM EDT Support Visit Maternal- Medicine at [facility] [address] [facility] [place] [phone] Hien Giles RN [address] [id number] Devika [place], [place] [address] [place] [address] Maternal- Medicine at [facility] Start: 02-11-2025 End: 06-13-2025 US for US OB follow up transabdominal approach Imaging Routine H/O gastric sleeve Expected: 02/11/2025, Expires: 06/13/2025 [facility] Work Phone: Comment on above: Expected: 02/11/2025 , Expires: 06/13/2025 Start: 02-11-2025 End: 02-11-2025 Patient encounter procedure 02/11/2025 11:30 AM EDT Routine [facility] [address] [place] [address] Rosy Quiroz PA [address] [place], [place] [phone] [facility] Start: 01-30-2025 End: 01-30-2025 Professional / ancillary services management 01/30/2025 1:00 PM EDT Ancillary Procedure [facility] [address] [place] [address] [facility] Start: 01-15-2025 Pap Testing Pap Testing [facility] Start: 01-15-2025 Screening for malign ant neoplasm of cervix Pap Testing [facility] Start: 01-10-2025 End: 01-10-2026 CBC panel - Blood by Automated count CBC Lab Routine Diabetes mellitus screening Expected: 01/10/2025 (Approximate), Expires: 01/10/2026 [facility] Work Phone: Comment on above: Expected: 01/10/2025 (Approximate), Expires: 01/10/2026 Start: 01-10-2025 End: 01-10-2026 Measurement of glucose 1 hour after glucose challenge for glucose tolerance test Glucose tolerance, 1 hour Lab Routine Diabetes mellitus screening Expected: 01/10/2025 (Approximate), Expires: 01/10/2026 [facility] Comment on above: Expected: 01/10/2025 (Approximate), Expires: 01/10/2026 Start: 01-10-2025 End: 01-10-2025 Patient encounter procedure 01/10/2025 10:10 AM EDT Routine [facility] [address] [place] [phone] Roscoe Diaz, DO [address] [place] [address] [facility] Start: 12-10-2024 End: 01-09-2025 [...] EDT Routine [facility] [address] [place] [phone] Rosy Quiroz PA [address] [place] [address] Arrived [facility] Comment on above: Arrived Start: 11-08-2024 End: 11-08-2024 Patient encounter procedure 11/08/2024 10:50 AM EDT Routine [facility] [address] [place] [phone] Roscoe Diaz, DO [address] [place] [address] [facility] Start: 10-18-2024 End: 10-18-2025 ABO/Rh ABO/Rh Lab Routine Missed menses , unspecified gestational age Expected: 10/18/2024 (Approximate), Expires: 10/18/2025 [facility] Comment on above: Expected: 10/18/2024 (Approximate), Expires: 10/18/2025 Start: 10-18-2024 End: 10-18-2025 Blood type and Indirect antibody screen panel - Blood Type and screen Lab Routine Missed menses , unspecified gestational age Expected: 10/18/2024 (Approximate), Expires: 10/18/2025 [facility] Comment on above: Expected: 10/18/2024 (Approximate), Expires: 10/18/2025 Start: 10-18-2024 End: 10-18-2025 Drugs of abuse panel - Urine by Screen method Rapid drug screen, urine Lab Routine , unspecified gestational age Encounter for supervision of normal first in first trimester Expected: 10/18/2024 (Approximate), Expires: 10/18/2025 [facility] Comment on above: Expected: 10/18/2024 (Approximate), Expires: 10/18/2025 Start: 10-18-2024 End: 10-18-2025 US Pelvis transvaginal [facility] Work Phone: Comment on above: Expected: 10/18/2024 , Expires: 10/18/2025 Start: 07-21-2024 Covid-19 Vaccine (#1) Covid-19 Vacci ne (#1) [facility] Comment on above: Postponed from 04/08 (Declined at this time) Start: 07-21-2024 Covid-19 Vaccine () Covid-19 Vaccine () [facility] Comment on above: Postponed from 04/22 (Declined at this time) Start: 04-22-2024 Covid-19 Vaccine () Covid-19 Vaccine () [facility] Start: 04-22-2024 Influenza vaccination Influenza Vacc ine (#1) [facility] Start: 02-19-2024 Influenza vaccination Influenza Vacc ine (#1) [facility] Comment on above: Postponed from 04/22 (Declined at this time) Start: 08-22-2023 Behavioral Health Screening Behavioral Health Screening [facility] Start: 08-22-2023 Depression Assessment Depression Ass essment [facility] Start: 07-21-2023 End: 10-20-2023 CBC W Auto Differential panel - Blood CBC + DIFF Lab Routine Routine adult health maintenance Expected: 07/21/2023, Expires: 10/20/2023 [facility] Work Phone: Comment on above: Expected: 07/21/2023 , Expires: 10/20/2023 Start: 07-21-2023 End: 10-20-2023 Comprehensive metabolic 2000 panel - Serum or Plasma COMP METABOLIC PANEL Lab Routine Routine adult health maintenance Expected: 07/21/2023, Expires: 10/20/2023 [facility] Work Phone: Comment on above: Expected: 07/21/2023 , Expires: 10/20/2023 Start: 07-21-2023 End: 10-20-2023 Hemoglobin A1c in Blood HGB A1C Lab Routine IFG (impaired fasting glucose) Routine adult health maintenance Expected: 07/21/2023, Expires: 10/20/2023 [facility] Work Phone: Comment on above: Expected: 07/21/2023 , Expires: 10/20/2023 Start: 07-21-2023 End: 10-20-2023 Hepatitis B virus surface Ab [Presence] in Serum HEP B SURF AB Lab Routine Immunity status testing Expected: 07/21/2023, Expires: 10/20/2023 [facility] Work Phone: Comment on above: Expected: 07/21/2023 , Expires: 10/20/2023 Start: 07-21-2023 End: 10-20-2023 Lipid 1996 panel - Serum or Plasma LIPID PANEL BASIC Lab Routine Routine adult health maintenance Expected: 07/21/2023, Expires: 10/20/2023 [facility] Work Phone: Comment on above: Expected: 07/21/2023 , Expires: 10/20/2023 Start: 07-06-2023 Hepatitis B Vaccine (1 of 3 - 3-dose series) Hepatitis B Vaccine (1 of 3 - 3-dose series) [facility] Comment on above: Postponed from 10/09 (Declined at this time) Start: 04-22-2023 Influenza vaccination Influenza Vacc ine (#1) [facility] Start: 01-15-2023 Adult depression screening assessment DEPRESSION SCREENING [facility] Start: 01-15-2023 COVID-19 VACCINE (#1) COVID-19 VACCI NE (#1) [facility] Comment on above: Postponed from 10/09 (Declined at this time) Start: 01-15-2023 PAP TESTING PAP TESTING [facility] Start: 01-15-2023 Screening for malign ant neoplasm of cervix Cervical Cancer Screening [facility] Start: 2022 HPV Testing HPV Testing [facility] Start: 2022 Screening for malign ant neoplasm of cervix [facility] Start: 08-22-2022 Depression Assessment Depression Ass essment [facility] Start: 04-22-2022 Influenza vaccination INFLUENZA (Sea son Ended) [facility] Start: 01-15-2022 End: 03-17-2022 Hemoglobin A1c/Hemoglobin.total in Blood [facility] Work Phone: Comment on above: Expected: 01/15/2022 , Expires: 03/17/2022 Start: 2013 Screening for malign ant neoplasm of cervix Pap Smear [facility] Start: 2011 DTaP,Tdap and Td Vaccines (1 - Tdap) DTaP,Tdap and Td Vaccines (1 - Tdap) [facility] Start: 2011 Urine microalbumin profile [facility] Start: 2010 Adult BMI Follow Up Plan Adult BMI Follow Up Plan [facility] Start: 2010 Adult BMI Screening Adult BMI Screen ing [facility] Start: 2010 Anxiety Screening Anxiety Screening [facility] Start: 2010 Depression Screening Depression Scre ening [facility] Start: 2004 Depression Screening Depression Scre [facility] Start: 2004 Tobacco Screening Tobacco Screening [facility] Start: 04-08-1993 Covid-19 Vaccine (#1) Covid-19 Vacci ne (#1) [facility] Start: 1992 Hepatitis B Vaccine (1 of 3 - 3-dose series) Hepatitis B Vaccine (1 of 3 - 3-dose series) [facility] Bacteria identified in Urine by Culture Urine culture Microbiology Routine Missed menses Ordered: 10/18/2024 [facility] Comment on above: Ordered: 10/18/2024 CBC W Auto Different ial panel - Blood CBC and differential Lab Routine Missed menses , unspecified gestational age Ordered: 10/18/2024 [facility] Comment on above: Ordered: 10/18/2024 CHLAMYDIA TRACHOMATI S (GENITO/STI) CHLAMYDIA TRACHOMATIS (GENITO/STI) Lab Routine Exposure to STD Ordered: 12/10/2024 [facility] Comment on above: Ordered: 12/10/2024 Cytology Cervical or vaginal smear or scraping study Pap Smear Pathology and Cytology Routine Well woman exam with routine gynecological exam Ordered: 12/10/2024 [facility] Comment on above: Ordered: 12/10/2024 Hemoglobin A1c/Hemoglobin.total in Blood Hemoglobin A1c Lab Routine Missed menses , unspecified gestational age Ordered: 10/18/2024 [facility] Comment on above: Ordered: 10/18/2024 Hepatitis B virus surface Ag [Presence] in Serum or Plasma by Immunoassay Hepatitis B surface antigen Lab Routine Missed menses , unspecified gestational age Ordered: 10/18/2024 [facility] Comment on above: Ordered: 10/18/2024 Hepatitis C virus Ab [Presence] in Serum or Plasma by Immunoassay Hepatitis C antibody Lab Routine Missed menses , unspecified gestational age Ordered: 10/18/2024 [facility] Comment on above: Ordered: 10/18/2024 HIV-1/HIV-2 antigen/antibody combination immunoassay HIV-1 and HIV-2 antibodies Lab Routine Missed menses , unspecified gestational age Ordered: 10/18/2024 [facility] Comment on above: Ordered: 10/18/2024 Human papilloma viru s DNA [Presence] in Unspecified specimen by Probe with amplification HPV DNA probe, amplified Microbiology Routine Well woman exam with routine gynecological exam Ordered: 12/10/2024 [facility] Comment on above: Ordered: 12/10/2024 Neisseria gonorrhoea e DNA [Presence] in Unspecified specimen by ALPA with probe detection Neisseria gonorrhea DNA probe, direct Lab Routine Exposure to STD Ordered: 12/10/2024 [facility] Comment on above: Ordered: 12/10/2024 Reagin Ab [Presence] in Serum by RPR RPR Lab Routine Missed menses , unspecified gestational age Ordered: 10/18/2024 [facility] Comment on above: Ordered: 10/18/2024 Rubella antibody, IgG Rubella an tibody, IgG Lab Routine Missed menses , unspecified gestational age Ordered: 10/18/2024 [facility] Comment on above: Ordered: 10/18/2024 SURESWAB(R) ADVANCED VAGINITIS PLUS, TMA SURESWAB(R) ADVANCED VAGINITIS PLUS, TMA Pathology and Cytology Routine Exposure to STD Ordered: 12/10/2024 [facility] Work Phone: Comment on above: Ordered: 12/10/2024 Thiamine [Moles/volu me] in Blood [facility] [place] [facility] Immunizations Immunization Date Immunization Notes Care Provider Fa [facility] 07-21-2023 tetanus toxoid, redu sloane diphtheria toxoid, and acellular pertussis vaccine, adsorbed Berenice Zepeda SUPER[employer]OR [employer].VEHICLE BODY MAKER Work Phone: [facility] 05-03-2011 meningococcal polysaccharide (groups A, C, Y and W-135) diphtheria toxoid conjugate vaccine (MCV4P) Berenice Zepeda SUPERVISOR [employer].VEHICLE BODY MAKER Work Phone: [facility] 05-03-2011 tetanus toxoid, redu sloane diphtheria toxoid, and acellular pertussis vaccine, adsorbed Berenice Zepeda SUPERVISOR [employer].VEHICLE BODY MAKER Work Phone: [facility] 03-29-2011 human papilloma viru s vaccine, quadrivalent Berenice Evelyn SUPERVISOR [employer].VEHICLE [employer]ODY MAKER Work Phone: [facility] 11-26-2010 human papilloma viru s vaccine, quadrivalent Berenice Evelyn SUPERVISOR [employer].VEHICLE BODY MAKER Work Phone: [facility] 09-28-2010 human papilloma viru s vaccine, quadrivalent Berenice Evelyn SUPERVISOR [employer].VEHICLE BODY MAKER Work Phone: [facility] 04-30-1998 diphtheria, tetanus toxoids and acellular pertussis vaccine, unspecified formulation Berenice Evelyn SUPERVISOR [employer].VEHICLE BODY MAKER Work Phone: [facility] 04-30-1998 measles, mumps and rubella virus vaccine Berenice Evelyn SUPERVISOR [employer].VEHICLE BODY MAKER Work Phone: [facility] 04-30-1998 trivalent poliovirus vaccine, live, oral Berenice Evelyn SUPERVISOR [employer].VEHICLE BODY MAKER Work Phone: [facility] 06-07-1994 diphtheria, tetanus toxoids and acellular pertussis vaccine, unspecified formulation Berenice Webbtter SUPERVISOR [employer].VEHICLE BODY MAKER Work Phone: [facility] 06-07-1994 hepatitis B vaccine, pediatric or pediatric/adolescent dosage Berenice Evelyn SUPERVISOR [employer].VEHICLE BODY MAKER Work Phone: [facility] 06-07-1994 trivalent poliovirus vaccine, live, oral Berenice Webbtter SUPERVISOR [employer].VEHICLE BODY MAKER Work Phone: [facility] 03-01-1994 haemophilus influenz ae type b vaccine, conjugate unspecified formulation Berenice Evelyn SUPERVISOR [employer].VEHICLE BODY MAKER Work Phone: [facility] 03-01-1994 hepatitis B vaccine, pediatric or pediatric/adolescent dosage Berenice Evelyn SUPERVISOR [employer].VEHICLE BODY MAKER Work Phone: [facility] 03-01-1994 measles, mumps and rubella virus vaccine Berenice Evelyn SUPERVISOR [employer].VEHICLE BODY MAKER Work Phone: [facility] 07-27-1993 diphtheria, tetanus toxoids and pertussis vaccine Berenice Evelyn SUPERVISOR [employer].VEHICLE BODY MAKER Work Phone: [facility] 07-27-1993 haemophilus influenz ae type b vaccine, conjugate unspecified formulation Berenice Evelyn SUPERVISOR [employer].VEHICLE BODY MAKER Work Phone: [facility] 07-27-1993 hepatitis B vaccine, pediatric or pediatric/adolescent dosage Berenice Evelyn SUPERVISOR [employer]TE[employer].VEHICLE BODY MAKER Work Phone: [facility] 03-16-1993 diphtheria, tetanus toxoids and pertussis vaccine Berenice Evelyn SUPERVISOR [employer].VEHICLE BODY MAKER Work Phone: [facility] 03-16-1993 haemophilus influenz ae type b vaccine, conjugate unspecified formulation Berenice Webbtter SUPERVISOR [employer].VEHICLE BODY MAKER Work Phone: [facility] 03-16-1993 trivalent poliovirus vaccine, live, oral Berenice Webbtter SUPERVISOR [employer].VEHICLE BODY MAKER Work Phone: [facility] 1992 diphtheria, tetanus toxoids and pertussis vaccine Berenice Evelyn SUPERVISOR [employer].VEHICLE BODY MAKER Work Phone: [facility] 1992 haemophilus influenz ae type b vaccine, conjugate unspecified formulation [place] Evelyn SUPERVISOR [employer].VEHICLE BODY MAKER Work Phone: [facility] 1992 trivalent poliovirus vaccine, live, oral Berenice Evelyn SUPERVISOR [employer].VEHICLE BODY MAKER Work Phone: [facility] Payers Date Payer Category Payer [facility] [id number] 2023 Unknown [id number] 2023 Private Health Insurance [employer] [id number] 2023 Unknown [id number] 2022 Self-pay 2022 Unknown [id number] 2019 [facility] Managed Care - Other [id number] 2019 Unknown [employer] PPO OOS [id number] 2019-Present [phone] [address] [place] [address] PPO [id number]. [id number] 2019 Unknown [id number] 1.13.159.2. [id number] 1992 Unknown [id number] 2.16.840.1.658425.3.579.2. 1286 1992 Unknown [id number] 2.16.840.1.545825.3.579.2. 1286 1992 Unknown [id number] 2.16.840.1.739395.3.579.2. 1286 1992 Unknown [id number] 2.16.840.1.106684.3.579.2. 1286 1992 Unknown [id number] 2.16.840.1.501258.3.579.2. 9 1992 Unknown [id number] 2.16.840.1.941003.3.579.2. 9 1992 Unknown [id number] 2.16.840.1.715470.3.579.2. 9 1992 Unknown [id number] 2.16.840.1.614117.3.579.2. 1259 1992 Unknown [id number] 2.16.840.1.563469.3.579.2. 1259 1992 Unknown [id number] 2.16.840.1.402420.3.579.2. 9 1992 Unknown [id number] 2.16.840.1.572159.3.579.2. 1259 1992 Unknown [id number] 2.16.840.1.117662.3.579.2. 1259 1992 Unknown [id number] 2.16.840.1.159680.3.579.2. 9 1992 Unknown [id number] 2.16.840.1.557606.3.579.2. 9 1992 Unknown [id number] 2.16.840.1.195738.3.579.2. 9 1992 Unknown [id number] 2.16.840.1.842993.3.579.2. 9 1992 Unknown [id number] 2.16.840.1.944358.3.579.2. 1258 1992 Unknown [id number] 2.16.840.1.763992.3.579.2. 9 1992 Unknown [id number] 2.16.840.1.882567.3.579.2. 1258 1992 Unknown [id number] 2.16840.1.130831.3.579.2. 9 1992 Unknown [id number] 2.16.840.1.656287.3.579.2. 1259 Unknown [id number] 2.16.840.1.659197.3.579.2. 531 Unknown [id number] 2.16.840.1.887733.3.579.2. 531 Social History Date Type Detail Facility [facility] unknown [facility] Start: 1990 Sex Assigned At Not on file [facility] Start: 01-15-2022 End: 02-07-2025 Tobacco smoking status NEIS Never smoked tobacco [facility] Start: 01-15-2022 End: 02-07-2025 Tobacco use and exposure Smokeless tobacco non-user [facility] Start: 01-15-2022 End: 08-23-2023 Alcohol intake Current drinker of alcohol (finding) [facility] Start: 01-31-2019 End: 01-15-2022 Alcohol intake [facility] Start: 01-12-2022 History SDOH Alcohol Frequency 2 [facility] Start: 01-12-2022 History SDOH Alcohol Std Drinks 1 [facility] Start: 01-15-2022 History SDOH Alcohol Comment occ. drink [facility] Start: 01-12-2022 History SDOH Social Connections Phone 5 [facility] Start: 01-12-2022 History SDOH Social Connections Get Together 4 [facility] Start: 01-12-2022 History SDOH Social Connections Living 7 [facility] Start: 01-12-2022 History SDOH Physical Activity MPS 3 [facility] Start: 1990 Sex Assigned At Female [facility] Start: 01-31-2019 End: 01-12-2022 Social connection and isolation panel [facility] Do you belong to any clubs or organizations such as scientology groups, unions, fraternal or athletic groups, or school groups? No [facility] Are you now , , , , never or living with a partner? Never [facility] How often to you hav e a drink containing alcohol? Monthly or less [facility] How many standard dr inks containing alcohol do you have on a typical day? 1 or 2 [facility] How often do you hav e 6 or more drinks on 1 occasion? Never [facility] How hard is it for y ou to pay for the very basics like food, housing, medical care, and heating Not hard at all [facility] Do you feel stress - tense, restless, nervous, or anxious, or unable to sleep at night because your mind is troubled all the time - these days [OSQ] Not at all [facility] (I/We) worried wheshelly er (my/our) food would run out before (I/we) got money to buy more. Never true [facility] Start: 01-12-2022 Gender identity Identifies as female gender (finding) [facility] Are you now , , , , never or living with a partner? Living with partner [facility] How hard is it for y ou to pay for the very basics like food, housing, medical care, and heating Not very hard [facility] Do you feel stress - tense, restless, nervous, or anxious, or unable to sleep at night because your mind is troubled all the time - these days [OSQ] To some extent [facility] The food that (I/we) bought just didn't last, and (I/we) didn't have money to get more. DK or Refused [facility] Start: 10-17-2023 End: 03-12-2025 Alcoholic beverage intake Ex-drinker (finding) [facility] Start: 10-17-2023 Alcohol Comment Caffeine intake: 1cup coffee/ day [facility] Start: 09-14-2023 [facility] Start: 04-22-2015 Sex Female (finding) [facility] Medical Equipment Procedure Code Equipment Code Equipment Origin al Text Equipment Identifier Dates 1 strip by In Vi tro route Daily Use in the morning prior to breakfast, 1 hour after each meal for a total of 4times daily. [id number] Start: 02-04-2025 End: 03-06-2025 1 each by In Vit ro route Daily Use to check FSBS four times daily [id number] Start: 02-04-2025 End: 03-06-2025 Use to inject insulin nightly [id number] Start: 03-12-2025 Goals Date Patient Goal Desired Activity /State Personal health goal Clinical Notes 01-08-2022 to 05-01-2025 Adelaida Dugan, TONIA - 05/01/2025 9:20 AM Ada Chopra APRN-GIORGI - 05/01/2025 8:00 AM Aldo King LPN - 04/24/2025 11:30 AM EDTTelephone Encounter - JOEL Oakes - 04/23/2025 12:38 PM EDT Note Date [...] nursing note reviewed. Exam conducted with a digital forensics investigator present. Vitals: Estimated body mass index is 38.11 kg/m as calculated from the following: Height as of 07/25/24: 5' 3 . Weight as of this encounter: 215 lb 1.9 oz. BP: 110/60 Patient's last menstrual period was 08/12/2024. ASSESSMENT & PLAN ICD-10-CM 1. 37 weeks gestation of ([facility]) Z3A.37 POCT urinalysis dipstick manually resulted 2. Third trimester ([facility]) Z34.93 POCT urinalysis dipstick manually resulted 3. H/O gastric sleeve Z90.3 4. Insulin controlled gestational diabetes mellitus (GDM) during , antepartum ([facility]) O24.414 Return OB: Patient presents today for [...] of: SLICK Matias documented in this encounter [facility] 05-01-2025 History of Present illness Narrative REASON FOR OFFICE VISIT: Video Visit via Real-time Synchronous Audiovisual Provider Location: [facility]- MEDICINE AT [address] [address] Patient Location: Patient's home Video Visit Consent [...] that there are some limitations compared to [id number] evaluations. The patient consented to the presence of additional virtual and/or in-person participants. We elected to proceed. 1. GDMA2; A1c 5.1% HISTORY OF PRESENT ILLNESS: Caryl Zamarripa is a pleasant 34 y.o. at 37w3d due on Estimated Date of Delivery: 05/19/25. Currently the patient has no complaints. The patient denies CUELLAR, nausea, vomiting, abdominal pain, vaginal bleeding, contractions, leaking fluid or chest pain. +FM. She is being followed at [facility] due to GDMA2. States she is following [...] nightly, Disp: 100 each, Rfl: 2 25-IRON [id number] ORAL, Take 1 tablet by mouth in the morning., Disp: , Rfl: LABS: No results found for: GLUF , MICROALBUR , LDLCALC , CREATININE No results found for: TSH , T3 , TOTALT4 , THYROIDAB No results found for: [id number] No results found for: CREATININE , BUN [...] by e-mail to: or by fax to: [phone] TIME OF CONSULTATION: 20 minutes with the patient, >50% in discussion and counseling, coordination of care which was [id number], review of records and communication back to referring provider. BRIE Farias 05/01/25 0817 documented in this encounter [facility] 04-24-2025 History of Present illness Narrative Reason for Appointment: Patient ID: Caryl Zamarripa is a 34 y.o. female who presents for Routine Visit Patient presents today for Return OB appointment. MEDICATIONS Current Outpatient Medications Medication Instructions Alcohol Swabs (Alcohol Prep Pad) 70 % pads 1 Pad, Topical, Daily, Use four times daily to check FSBS. aspirin 81 mg, Daily Blood Glucose Monitoring Suppl (Lomography-ResolutionTube Glucometer) w/Device kit 1 kit, Does not [...] nursing note reviewed. Exam conducted with a digital forensics investigator present. Vitals: Estimated body mass index is 37.22 kg/m as calculated from the following: Height as of 07/25/24: 5' 3 . Weight as of this encounter: 210 lb 1.9 oz. BP: 116/74 Patient's last menstrual period was 08/12/2024. ASSESSMENT & PLAN ICD-10-CM 1. Third trimester ([facility]) Z34.93 POCT urinalysis dipstick manually resulted CULTURE, GROUP B STREP WITH SUSCEPTIBLITY CULTURE, GROUP B STREP WITH SUSCEPTIBLITY 2. 36 weeks gestation of ([facility]) Z3A.36 POCT urinalysis dipstick manually resulted Patient [...] Roscoe Diaz DO documented in this encounter [facility] 04-23-2025 Miscellaneous Notes Called regarding blood [...] weekly. documented in this encounter [facility] 04-23-2025 Telephone encounter Note Called regarding [...] sugars and send in blood sugars weekly. [facility] Work Phone: 04-15-2025 Miscellaneous Notes Received BG results and all are in target range. Called and left message of praise for all efforts and to call if questions. To send next week again. No changes. documented in this encounter [facility] 04-15-2025 Telephone encounter Note Received BG results and all are in target range. Called and left message of praise for all efforts and to call if questions. To send next week again. No changes. [facility] 04-10-2025 History of Present illness Narrative [...] 81 mg, Daily Blood Glucose Monitoring Suppl (D-ResolutionTube Glucometer) w/Device kit 1 kit, Does not [...] nursing note reviewed. Exam conducted with a digital forensics investigator present. Vitals: Estimated body mass index is 37.22 kg/m as calculated from the following: Height as of 24: 5' 3 . Weight as of this encounter: 210 lb 1.9 oz. BP: 120/70 Patient's last menstrual period was 08/12/2024. ASSESSMENT & PLAN ICD-10-CM 1. 34 weeks gestation of ([facility]) Z3A.34 POCT urinalysis dipstick manually resulted 2. Third trimester ([facility]) Z34.93 POCT urinalysis dipstick manually resulted 3. H/O gastric sleeve Z90.3 4. Insulin controlled gestational diabetes mellitus (GDM) during , antepartum ([facility]) O24.414 Return OB: Patient presents today for [...] Roscoe Diaz DO documented in this encounter [facility] 04-09-2025 Miscellaneous Notes Called regarding blood sugar logs from 04/01/2025-04/07/2025 but the call went straight to voicemail. She had 4 elevated post prandial blood sugars, no pattern, but she did note that they were most likely related to higher carbohydrate meals. Continue with 10 units of Lantus and sending blood sugars weekly. Reminded to schedule a follow-up visit with a [facility] provider for the second week in April. documented in this encounter [facility] 04-09-2025 Telephone encounter Note Called regarding blood sugar logs from 04/01/2025-04/07/2025 but the call went straight to voiceakil. She had 4 elevated post prandial blood sugars, no pattern, but she did note that they were most likely related to higher carbohydrate meals. Continue with 10 units of Lantus and sending blood sugars weekly. Reminded to schedule a follow-up visit with a MFM provider for the second week in April. [facility] Phone: 04-01-2025 Miscellaneous Notes Left message for patient to call MFM back to reschedule a 4 week video visit shobha Marr. documented in this encounter [facility] 04-01-2025 Telephone encounter Note Left message for patient to call MFM back to reschedule a 4 week video visit shobha Marr. [facility] 04-01-2025 History of Present illness Narrative [...] nightly, Disp: 100 each, Rfl: 2 25-IRON [id number] ORAL, Take 1 tablet by mouth in [...] Delivery recommendations : - Recommend delivery at [id number] - reviewed with pateint - Discuss delivery [...] values to us weekly by e-mail to: [email or web address] or by fax to: [phone] Daisha Morel PA-C [facility] Office phone: [phone] Daisha Morel PA-C 04/01/25 1331 documented in this encounter [facility] 04-01-2025 Miscellaneous Notes Left message to remind patient of video visit today at 10 AM. Call back number given to reschedule if unable to keep appointment. documented in this encounter [facility] 04-01-2025 Telephone encounter Note Left message to remind patient of video visit today at 10 AM. Call back number given to reschedule if unable to keep appointment. [facility] 03-27-2025 History of Present illness Narrative [...] nursing note reviewed. Exam conducted with a digital forensics investigator present. Vitals: Estimated body mass index is [...] appointment. Patient continues to send FSBS to [facility] and doing well and [facility] continues to manage her Lantus dosing. She will begin NST/ BPP this week. Documented by Adelaida Dugan NP on behalf of: Roscoe Diaz DO documented in this encounter [facility] 03-26-2025 Miscellaneous Notes Called regarding blood sugar logs from 03/18/2025-03/24/2025 but received voicemail. Caryl had one elevated fasting blood sugar ( she may not of had a snack the night before) and three elevated blood sugars after dinner. She is taking 10 units of Lantus in the evening. Will send a MyChart message. documented in this encounter [facility] 03-26-2025 Telephone encounter Note Called regarding blood sugar logs from 03/18/2025-03/24/2025 but received voicemail. Caryl had one elevated fasting blood sugar ( she may not of had a snack the night before) and three elevated blood sugars after dinner. She is taking 10 units of Lantus in the evening. Will send a MyChart message. [facility] Work Phone: 03-19-2025 Miscellaneous Notes Blood glucose [...] now in target. [facility]25 Telephone encounter Note Blood glucose log from 03/11/25 to 03/17/25 received. Patient did not answer. I left a voicemail asking her to check for a new MyChart message that I am going to leave with questions about her dinner values (4 out of 7 were still elevated). Patient started Lantus on 03/12/25 and all fasting BG now in target. [facility] 03-13-2025 History of Present illness Narrative Reason for Appointment: Patient ID: Caryl Zamarripa is a 34 y.o. female who presents for Routine Visit Patient presents today for Return OB appointment. MEDICATIONS Current Outpatient Medications Medication Instructions Alcohol Swabs (Alcohol Prep Pad) 70 % pads 1 Pad, Topical, Daily, Use four times daily to check FSBS. aspirin 81 mg, Daily Blood Glucose Monitoring Suppl ([employer] Glucometer) w/Device kit 1 kit, Does not [...] calculated from the following: Height as of 12/4/24: 5' 3 . Weight as of this [...] of: SLICK Matias documented in this encounter [facility] 03-12-2025 History of Present [...] nausea or vomiting., Disp: , Rfl: 25-IRON [id number] ORAL, Take 1 tablet by mouth in [...] more likely to fail compared to insulin. adjunct faculty for medical terminology data on children whose mothers took oral [...] Delivery recommendations : - Recommend delivery at [id number] - reviewed with pateint - Discuss delivery [...] values to us weekly by e-mail to: [email or web address] or by fax to: [phone] Daisha Morel PA-C [facility] Office phone: [phone] Daisha Morel PA-C 03/12/25 1500 Summary: MFM [...] minutes. documented in this encounter [facility] 03-05-2025 Miscellaneous Notes Called regarding blood sugar logs from 02/25/2025-03/03/2025 but the call went directly to SVXR. Caryl had 1 one elevated fasting blood sugar, 1 elevated blood sugar after breakfast, one elevated blood sugar after lunch, and 4 elevated blood sugars after dinner. Will send a Ecommo message. documented in this encounter [facility] 03-05-2025 Telephone encounter Note Called regarding blood sugar logs from 02/25/2025-03/03/2025 but the call went directly to [email or web address]. Caryl had 1 one elevated fasting blood sugar, 1 elevated blood sugar after breakfast, one elevated blood sugar after lunch, and 4 elevated blood sugars after dinner. Will send a Ecommo message. [facility] Work Phone: 02-27-2025 History of Present illness Narrative Reason for Appointment: Patient ID: Caryl Zamarripa is a 34 y.o. female who presents for Routine Visit Patient presents today for Return OB appointment. MEDICATIONS Current Outpatient Medications Medication Instructions Alcohol Swabs (Alcohol Prep Pad) 70 % pads 1 Pad, Topical, Daily, Use four times daily to check FSBS. Blood Glucose Monitoring Suppl ([employer] SFS Digital Media Glucometer) w/Device kit 1 kit, Does not [...] nursing note reviewed. Exam conducted with a digital forensics investigator present. Vitals: Estimated body mass index is [...] Roscoe Diaz DO documented in this encounter [facility] 02-26-2025 Miscellaneous Notes Called [...] message. documented in this encounter [facility] 02-26-2025 Telephone encounter Note Called regarding [...] also send a MyChart message. [facility] Work Phone: 02-14-2025 Group counseling note [...] of food logs and blood glucoses to [email or web address], next Tuesday night/Tuesday morning. Please refer to health habits for other goals. Breakfast 6-6:30 AM 15-25 grams of CHO, Snack 9 AM 15-30 grams of CHO, Lunch 11:30-Noon 45 grams of CHO, Snack 2-3 PM 15-30 grams of CHO, Dinner 6 PM 45 grams of CHO, HS Snack 8-9 PM 15-30 grams of CHO. Face to face time was 70 minutes. [facility] Work Phone: 02-14-2025 Miscellaneous Notes Patient: Caryl [...] of food logs and blood glucoses to [email or web address], next Tuesday night/Tuesday morning. Please refer to [...] minutes. documented in this encounter [facility] 02-11-2025 History of Present illness Narrative Reason for Appointment: Patient ID: Caryl Zamarripa is a 34 y.o. female who presents for Routine Visit Patient presents today for Return OB appointment. MEDICATIONS Current Outpatient Medications Medication Instructions Alcohol Swabs (Alcohol Prep Pad) 70 % pads 1 Pad, Topical, Daily, Use four times daily to check FSBS. Blood Glucose Monitoring Suppl (D-ResolutionTube Glucometer) w/Device kit 1 kit, Does not [...] nursing note reviewed. Exam conducted with a digital forensics investigator present. Vitals: Estimated body mass index is [...] Adelaida Dugan NP documented in this encounter [facility] 01-10-2025 History of Present [...] nursing note reviewed. Exam conducted with a digital forensics investigator present. Vitals: Estimated body mass index is [...] Roscoe Diaz DO documented in this encounter [facility] 12-10-2024 History of Present [...] nursing note reviewed. Exam conducted with a digital forensics investigator present. Vitals: Estimated body mass index is [...] of: SLICK Matias documented in this encounter [facility] 11-08-2024 History of Present [...] Roscoe Diaz DO documented in this encounter [facility] 10-18-2024 History of Present [...] Monika Mesa LPN documented in this encounter [facility] 08-02-2024 History of Present illness Narrative Images from the original note were not included. [address] , [address] [facility], [address] P: [phone] F: [phone] HPI Historian of HPI: patient Crayl Zamarripa [...] Left Turbinates: Enlarged and swollen. Mouth/Throat: Lips: Oral. Mouth: Mucous membranes are moist. Pharynx: Oropharynx [...] tablet; Refill: 0 documented in this encounter [facility] 07-25-2024 History of Present [...] Use: Not At Risk (07/19/2023) Received from [facility] AUDIT-C Frequency of Alcohol Consumption: Monthly or less Average Number of Drinks: 1 or 2 Frequency of Binge Drinking: Never Depression: Not at risk (06/29/2024) Received from [facility] PHQ-2 PHQ-2 score: 0 Physical Activity: Insufficiently Active (07/19/2023) Received from [facility] Exercise Vital Sign Days of Exercise per [...] Alexandro Garner DO documented in this encounter [facility] 06-29-2024 Note HNO ID: [id number] Author: BERENICE ZEPEDA APRN.VEHICLE BODY MAKER Service: ? Author Type: Nurse Practitioner Type: [...] - PHENTERMINE 37.5 MG TABLET Berenice Zepeda APRN.[facility] 06-29-2024 History of Present illness Narrative Caryl [...] - PHENTERMINE 37.5 MG TABLET Berenice Zepeda APRN.VEHICLE BODY MAKER documented in this encounter [facility] 03-06-2024 Telephone encounter Note Order formatted Please advise [facility] 03-06-2024 Miscellaneous Notes Order formatted Please advise documented in this encounter [facility] 09-23-2023 Note HNO ID: [id number] Author: BERENICE ZEPEDA APRN.VEHICLE BODY MAKER Service: ? Author Type: Nurse Practitioner Type: Progress Notes Filed: 09/23/2023 15:52 Note Text: VIRTUAL VISIT PROGRESS NOTE This is a virtual visit using [email or web address] Video Visit. It required patient-provider interaction for the medical decision making as documented below. I have communicated my name and active licensure. The patient's identity and physical location were verified at the time of this visit. Either the patient or their legal mechanical service representative has been informed of the [...] Outpatient Medications Medication Sig Omeprazole Magnesium (ACID HEAD STOCK TRANSFER CLERK, OMEPRAZOLE,) 20 mg cpDR No current [...] file for this visit. Berenice Zepeda APRN.CNP [facility] 09-23-2023 History of Present illness Narrative VIRTUAL VISIT PROGRESS NOTE This is a virtual visit using [employer] Video Visit. It required patient-provider interaction for the medical decision making as documented below. I have communicated my name and active licensure. The patient's identity and physical location were verified at the time of this visit. Either the patient or their legal mechanical service representative has been informed of the [...] Outpatient Medications Medication Sig Omeprazole Magnesium (ACID HEAD STOCK TRANSFER CLERK, OMEPRAZOLE,) 20 mg cpDR No current [...] on file for this visit. Berenice Zepeda APRN.VEHICLE BODY MAKER documented in this encounter [facility] 08-23-2023 Note HNO ID: [id number] Author: BERENICE ZEPEDA APRN.CNP Service: ? Author [...] PHENTERMINE 37.5 MG TABLET Berenice Zepeda APRN.CNP [facility] 07-21-2023 Note HNO ID: [id number] Author: Evelyn, Berenice, [employer].VEHICLE BODY MAKER Service: ? Author Type: Nurse Practitioner Type: Progress Notes Filed: 07/22/2023 10:16 AM Note Text: Caryl Zamarripa is a 32 year old female here today for review of established medical problems as well as comprehensive physical examination. Obesity S/p gastric sleeve surgery in 03/2022 at [facility] in [place] Down about 70lb, has reached plateau Gym 4 days per week with cardio (treadmill, elliptical) Maybe not enough water Tries to focus on more protein, lower carbs Last 10 Encounter Wt Readings: Date: Wt: 07/21/2023 80.1 kg (176 lb 8 oz) 07/06/2022 81.6 kg (180 lb) 01/15/2022 104.3 kg (230 lb) HOT TAMALE MAN in [facility] Implanted control HM needs: Hepatitis B Vaccine(1 of 3 - 3-dose series) Never done Depression Assessment Never done HPV Testing Never done PAST MEDICAL HISTORY Diagnosis Date GERD (gastroesophageal reflux disease) Prediabetes PAST SURGICAL HISTORY Procedure Laterality Date PT ED BARIATRIC AND METABOLIC gastric sleeve 03/2022 ALLERGIES Patient has no known allergies. 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 Sensation grossly intact. Breast/Pelvic: Per HOT TAMALE MAN ASSESSMENT/PLAN: 1. Routine adult health maintenance - ICD9: V70.0, ICD10: Z00.00 (primary diagnosis) - Counseled on healthy diet and regular exercise - Calcium intake with supplements or by diet of 1000 mg/day for under 50, 6410-5048 mg/day for 50+ - Discussed need and [...] comorbidity present - (more content not included)... [facility] 07-21-2023 History of Present illness Narrative Caryl Zamarripa is a 32 year old female here today for review of established medical problems as well as comprehensive physical examination. Obesity S/p gastric sleeve surgery in 03/2022 at [facility] in [place] Down about 70lb, has reached plateau Gym 4 days per week with cardio (treadmill, elliptical) Maybe not enough water Tries to focus on more protein, lower carbs Last 10 Encounter Wt Readings: Date: Wt: 07/21/2023 80.1 kg (176 lb 8 oz) 07/06/2022 81.6 kg (180 lb) 01/15/2022 104.3 kg (230 lb) HOT TAMALE MAN in [facility] Implanted control HM needs: Hepatitis B Vaccine(1 of 3 - 3-dose series) Never done Depression Assessment Never done HPV Testing Never done PAST MEDICAL HISTORY Diagnosis Date GERD (gastroesophageal reflux disease) Prediabetes PAST SURGICAL HISTORY Procedure Laterality Date PT ED BARIATRIC AND METABOLIC gastric sleeve 03/2022 ALLERGIES Patient has no known allergies. 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 Sensation grossly intact. Breast/Pelvic: Per HOT TAMALE MAN ASSESSMENT/PLAN: 1. Routine adult health maintenance - ICD9: V70.0, ICD10: Z00.00 (primary diagnosis) - Counseled on healthy diet and regular exercise - Calcium intake with supplements or by diet of 1000 mg/day for under 50, 4358-7746 mg/day for 50+ - Discussed need and [...] - HEP B SURF AB Berenice Zepeda APRN.VEHICLE BODY MAKER ' documented in this encounter [facility] 06-29-2023 Miscellaneous Notes Sent Valtrex 1 gram twice/day for 2 days with one refill. High stress can cause cold sores? How is your stress level? documented in this encounter [facility] 01-15-2022 Instructions Dasha Lujan MD - 01/15/2022 12:05 PM EDT -Get Hgba1c and K level checked in the near future. -Encourage you to lose 2 lbs/week as a healthy way via diet and exercise -Should you have any questions or concerns, do not hesitate to contact me anytime via my chart (Dr.Sunir Lujan) documented in this encounter [facility] 01-15-2022 History of Present illness Narrative Caryl Zamarripa is a 31 year old female who presents with Establish Care -Pt is here to Establish Care. 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 Says all labs checked out fine per pt discussion. Pt says she did get her thyroid lab work checked 4 years ago, and all checked out fine. Thyroid blood work was also checked recently. -OARRS reviewed: clean -Wiener Packer: deferred seeing one at this time as pt is undergoing gastric sleeve evaluation (Bariatric Surgery) at [facility]. Pt says that she just [...] process to get Bariatric Surgery done at [facility]. (R73.9) Blood glucose elevated Plan: HGB A1C (E87.5) Hyperkalemia Plan: POTASSIUM BLD -Will have her get K level rechecked. (K76.0) Hepatic steatosis -LFT were normal. -Encourage weight reduction and avoid alcohol and tylenol as much as possible. -Will continue to monitor LFT. Dasha Lujan MD documented in this encounter [facility] 01-08-2022 Miscellaneous Notes Will advise on Tuesday when he returns Patient calling stating Dr Lujan agreed to take her into his practice but no documentation found in patient chart. Please advise. documented in this encounter [facility] Evaluation note Diagnosis Preoperative clearance- Primary Preoperative examination, unspecified Obesity (BMI 30-39.9) Obesity, unspecified Blood glucose elevated Other abnormal glucose Hyperkalemia Hyperpotassemia Hepatic steatosis Other chronic nonalcoholic liver disease [facility] noteNo assessment information availableSelect [facility] Work Phone: Evaluation note* Diagnosis Routine [...] Antibody response examination [facility] Diagnosis Encounter for weight management Overweight (BMI 25.0-29.9) Overweight [facility] Diagnosis Encounter for weight management- Primary Overweight [facility] Diagnosis Rectal bleeding- Primary Hemorrhage of rectum and anus documented in this encounter [facility]* Diagnosis Acute cough- Primary Chest congestion Other symptoms involving respiratory system and chest Bronchitis Bronchitis, not specified as acute or chronic documented in this encounter [facility]* Diagnosis Missed menses , unspecified gestational age Encounter for supervision of normal first in first trimester Nausea and vomiting in Unspecified vomiting of , unspecified as to episode of care documented in this encounter [facility]* Diagnosis 12 weeks gestation of documented in this encounter [facility] note* Diagnosis Well woman exam with routine gynecological exam Routine gynecological examination Second trimester state, incidental 17 weeks gestation of Exposure to STD Need for maternal serum alpha-protein (MSAFP) screening Screening, , for anatomic survey Encounter for anatomic survey documented in this encounter [facility] Healthcare[facility] note* Diagnosis 21 weeks gestation of Second trimester state, incidental Diabetes mellitus screening Screening for diabetes mellitus documented in this encounter [facility] HealthcareEvaluation note* Diagnosis Second trimester (HHS-HCC) [...] episode of care [facility]* Diagnosis 30 weeks gestation of (HHS-HCC) Third trimester (HHS-HCC) state, incidental H/O gastric sleeve Gestational diabetes mellitus (GDM), antepartum, gestational diabetes method of control unspecified ([facility]) [facility]* Diagnosis Gestational diabetes requiring insulin- Primary Abnormal maternal glucose tolerance, complicating , childbirth, or the puerperium, unspecified as to episode of care [facility]* Diagnosis Third trimester (HHS-HCC) [...] of care documented [facility]* Diagnosis 37 weeks gestation of [...] unspecified whether serious comorbidity present Berenice Zepeda APRN.VEHICLE BODY MAKER [address] [place] [address] Referral ID Status Reason Start Date Expiration Date Visits Re quested Visits Authorized [id number] Closed 1 1 Specialty Diagnoses / Procedures Referred By Zachery kenyon Referred To Contact Diagnoses Encounter for weight management Overweight (BMI 25.0-29.9) Berenice Zepeda APRN.VEHICLE BODY MAKER [address] [place] [address] Referral ID Status Reason Start Date Expiration Date Visits Re quested Visits Authorized [id number] Closed 1 1 Additional Source Comments Source Comments (unrecognize d section and content) In the event this informatio n is protected by the Federal Confidentiality of Alcohol and Drug Abuse Patient Records regulations: The Federal rules restrict any use of the information to criminally investigate or prosecute any alcohol or drug abuse patient.[facility] the event this information is protected by the Federal Confidentiality of Alcohol and Drug Abuse Patient Records regulations: The Federal rules restrict any use of the information to criminally investigate or prosecute any alcohol or drug abuse patient.[facility] the event this information is protected by the Federal Confidentiality of Alcohol and Drug Abuse Patient Records regulations: The Federal rules restrict any use of the information to criminally investigate or prosecute any alcohol or drug abuse patient.[facility] the event this information is protected by the Federal Confidentiality of Alcohol and Drug Abuse Patient Records regulations: The Federal rules restrict any use of the information to criminally investigate or prosecute any alcohol or drug abuse patient.[facility] the event this information is protected by the Federal Confidentiality of Alcohol and Drug Abuse Patient Records regulations: The Federal rules restrict any use of the information to criminally investigate or prosecute any alcohol or drug abuse patient.[facility] the event this information is protected by the Federal Confidentiality of Alcohol and Drug Abuse Patient Records regulations: The Federal rules restrict any use of the information to criminally investigate or prosecute any alcohol or drug abuse patient.[facility] the event this information is protected by the Federal Confidentiality of Alcohol and Drug Abuse Patient Records regulations: The Federal rules restrict any use of the information to criminally investigate or prosecute any alcohol or drug abuse patient.[facility] Reason for Visit (unrecogniz ed section [...] Contact General Surgery Diagnoses Rectal bleeding Procedures ID OFFICE/OUTPATIENT NEW HIGH MDM Sina Garner, [address] [facility] [address] [place] [address] Phone: tel: fax: Sina Garner, [address] [facility] [address] [place] [address] Phone: tel: fax: Referral ID Status Reason Start Date Expiration Date V isits Requested Visits Authorized [id number] Closed Specialty Services Required 07/11/2024 01/07/2025 1 1 Reason Comments Amenorrhea Reason Comments Routine Visit Reason Comments Elevated Glucose Tolerance Test Specialty Diagnoses / Procedures Referred By Zachery kenyon Referred To Contact Maternal and Medicine Diagnoses Gestational diabetes mellitus (GDM) in second trimester, gestational diabetes method of control unspecified Roscoe Diaz R, DO [address] [place] [address] Phone: tel: fax: Maternal- Medicine at [facility] [address] [place] [address] Phone: tel: fax: Referral ID Status Reason Start Date Expiration Date Visits Requested Visits Authorized [id number] Pending Review Specialty Services Required 02/06/2025 02/06/2026 1 1 Reason Comments MED START Reason Comments Med Change Request Care Teams (unrecognized sec tion and content) Cisco Network Engineer Relationship Specialty [place] [address] [place] [address] PCP - General Internal Medicine 01/11/22 Team Status: Inactive Member Role Status Dates Dasha Lujan MD Primary Care Provider Active Reena Breaux APRN YARN TWISTER-C Attending Provider Activ e Team Status: Active Member Role Status Dates Dasha Lujan MD Primary Care Provider Active Cisco Network Engineer Relationship Specialty [place] [address] [place] [address] PCP - General Internal Medicine 01/11/22 Cisco Network Engineer Relationship Specialty [place] [address] [place] [address] PCP - General Internal Medicine 01/11/22 Cisco Network Engineer Relationship Specialty [place] [address] [place] [address] PCP - General Internal Medicine 01/11/22 Cisco Network Engineer Relationship Specialty [place] [address] [place] [address] PCP - General Internal Medicine 01/11/22 Cisco Network Engineer Relationship Specialty [place] [address] [place] [address] PCP - General Internal Medicine 01/11/22 Cisco Network Engineer Relationship Specialty Start Date End Date Unallocated, Chiara Pate MD [facility] [place] [address] PCP - General Family Medicine 10/17/23 Cisco Network Engineer Relationship Specialty Start Date End Date Unallocated, [place] [address] PCP - General Family Medicine 10/17/23 Cisco Network Engineer Relationship Specialty Start Date End Date Unallocated, Chiara Pate MD [address] [facility] [place] [address] PCP - General Family Medicine 10/17/23 Cisco Network Engineer Relationship Specialty Start Date End Date Unallocated, MD Pat [address] [place] [address] PCP - General Family Medicine 10/17/23 Cisco Network Engineer Relationship Specialty Start Date End Date Unallocated, Chiara Pate MD [address] [place] [address] PCP - General Family Medicine 10/17/23 Cisco Network Engineer Relationship Specialty Start Date End Date Unallocated, Chiara Pate MD [facility] [facility] [place] [address] PCP - General Family Medicine 10/17/23 Edu Alvarez NP [address] [place] [address] PCP - [place] [employer] 09/22/24 Cisco Network Engineer Relationship Specialty Start Date End Date Unallocated, Chiara Pate MD [facility] [place] [address] PCP - General Family Medicine 10/17/23 Edu Alvarez YARN TWISTER [address] [place] [address] PCP - [place] [facility] 09/22/24 Cisco Network Engineer Relationship Specialty Start Date End Date Unallocated, Chiara Pate MD [facility] [place] [address] PCP - General Family Medicine 10/17/23 Edu Alvarez YARN TWISTER [address] [place] [address] PCP - [place] [employer] 09/22/24 Cisco Network Engineer Relationship Specialty Start Date End Date Unallocated, Chiara Pate MD [address] [place] [address] PCP - General Family Medicine 10/17/23 Edu Alvarez, YARN TWISTER [address] [place] [address] PCP - [place] [facility] 09/22/24 Cisco Network Engineer Relationship Specialty Start Date End Date Unallocated, Chiara Pate MD [facility] [place] [address] PCP - General Family Medicine 10/17/23 Edu Alvarez, YARN TWISTER [address] [place] [address] PCP - [place] [employer] 09/22/24 Cisco Network Engineer Relationship Specialty Start Date End Date Unallocated, Chiara Pate MD [facility] [place] [address] PCP - General Family Medicine 10/17/23 Edu Alvarez, YARN TWISTER [address] [place] [address] PCP - [place] [employer] 09/22/24 Cisco Network Engineer Relationship Specialty Start Date End Date Unallocated, Chiara Pate MD [address] [place] [address] PCP - General Family Medicine 10/17/23 Edu Alvarez, YARN TWISTER [address] [place] [address] PCP - [place] [employer] 09/22/24 Cisco Network Engineer Relationship Specialty Start Date End Date Unallocated, Chiara Pate MD [facility] [place] [address] PCP - General Family Medicine 10/17/23 Edu Alvarez NP [address] [place] [address] PCP - [place] [employer] 09/22/24 Cisco Network Engineer Relationship Specialty Start Date End Date Unallocated, Abhijeets MD Herlinda [address] [place] [address] PCP - General Family Medicine 10/17/23 Edu Alvarez NP [address] [place] [address] PCP - [place] [employer] 09/22/24 Cisco Network Engineer Relationship Specialty Start Date End Date Unallocated, Chiara Pate MD [address] [place] [address] PCP - General Family Medicine 10/17/23 Edu Alvarez YARN TWISTER [address] [place] [id number] PCP - [place] [employer] 09/22/24 Cisco Network Engineer Relationship Specialty Start Date End Date Unallocated, Chiara Pate MD [address] [place] [address] PCP - General Family Medicine 10/17/23 Edu Alvarez YARN TWISTER [address] [place] [address] PCP - [place] [employer] 09/22/24 INFORMATION SOURCE (unrecogn ized section and content) DATE CREATED AUTHOR 01/16/2022 [facility] DATE CREATED AUTHOR AUTHOR'S ORGANIZ ATION 10/18/2022 [facility] DATE CREATED AUTHOR AUTHOR'S ORGANIZ ATION 07/01/2024 [facility] DATE CREATED AUTHOR AUTHOR'S ORGANIZ ATION 05/03/2025 [facility] DATE CREATED AUTHOR AUTHOR'S ORGANIZ ATION 05/03/2025 [facility] dical Specialists EPIC Goals (unrecognized section [...] BE BASED ON THE PRIMARY CLINICAL RECORDS. [employer] provides no warranty or guarantee of the accuracy or completeness of information in this document.
--- OUTSIDE RECORDS SUMMARY | 2025-05-06 05:08 | XMS_ITS | Encounter Summary ---
Author Organization [facility] Address [address] [place] [address] Care Team Providers Care Bricklayer Sewer Name Role Phone Unallocated, Noms Provider Primary Care Provi chrissy Amalia Bruce TIE CARRIER Unavailable [phone] Encounter Details Date Type Department Care Team (Late st Contact Info) Description 02/04/2025 Results Follow-Up CHIARA Johnson [facility] [address] [facility] [place] [address] Monika Mesa LPN [address] [place] [id number] ALL CBC WITH AUTO DIFF, GLUCOSE 1 [...] as of this encounter Care Teams Bricklayer Sewer Relationship Specialty Start Date End Date Unallocated, Noms Provider, [address] [place], [place] [id number] PCP - General Family Medicine 10/17/23 Amalia Bruce, TONIA [address] [place] [address] PCP - [facility] 09/22/24 documented as of this encounter
--- OUTSIDE RECORDS SUMMARY | 2025-05-06 05:08 | XMS_ITS | Encounter Summary ---
Author Organization [facility] tem Address [id number] [address] [place] [address] Care Team Providers Care Sales Intern Name Role Phone Unavailable Primary Care Provider Unavailabl e Encounter Details Date Type Department Care Team (Late st Contact Info) Description 02/07/2025 Orders Only Maternal- Medicine at [facility] [address] [place] [id number] Ref Prov, [place] [address] Social History Tobacco Use Types Packs/Day Years [...] ORDERABLES Madelaine l Result Performing Organization Address City/[facility] Co de Phone Number MANUALLY TRANSCRIBED RESULTS * Unlisted Genetic Test (02/07/2025 10:32 AM EDT) us Not In System Ref Prov LAB BLOOD ORDERABLES Madelaine l Result Performing Organization Address City/[facility] Co de Phone Number MANUALLY TRANSCRIBED RESULTS documented in this encounter Visit Diagnoses Not on filedocumented in this encounter
--- OUTSIDE RECORDS SUMMARY | 2025-05-06 05:08 | XMS_ITS | Encounter Summary ---
Author Organization [facility] Address [address] [place] [address] Care Team Providers Care Natural Resources Instructor Name Role Phone Unallocated, Noms Provider Primary Care Provi chrissy Amalia Bruce TELEPHONE COLLECTOR Unavailable [phone] Encounter Details Date Type Department Care Team (Late st Contact Info) Description 04/23/2025 Clinisync Result Encounter [facility] External Department Unsolicited Rosy Quiroz PA [address] [place] [address] [place] [address] Social History Tobacco Use Types Packs/Day Years [...] PM EDT Narrative 04/23/2025 4:37 [place] [address] Ultrasound Report Signed Patient: TRUDI ZAMARRIPA MR#: [id number] : 1990 Acct:[id number] Age/Sex: 34 / F ADM Date: 04/23/25 Loc: [facility] 250-[address]: Rosy Quiroz Ordering Physician: Rosy Quiroz Date of Service: 04/23/25 Procedure(s): US OB BPP w non-stress Accession Number(s): [id number] cc: Rosy Quiroz; Physician,Non-Staff M.D. The [place] [address] Patient Name: TRUDI ZAMARRIPA MRN: [id number] date: 1990 Sex: F Assigned Patient Location: Current Patient Location: US Accession/Order Number: [id number] Exam Date: 04/23/2025 16:03 Report Date: 04/23/2025 16:35 At the request of: ROSY QUIROZ Procedure: US OB BPP w non-stress Biophysical profile. Reason for exam: History of gastric sleeve surgery COMPARISON: 04/15/2025 TECHNIQUE: Transabdominal imaging of the gravid uterus was obtained. FINDINGS: The interlibrary loan services librarian reports a BPP of 8 out of 8. HELLEN is normal at 11.5 cm. heart rate 135 bpm. US/US OB BPP w non-stress IMPRESSION: BPP 8 out of 8. Impression dictated by: Cy Jensen Jr., D.O. 04/23/2025 4:35 PM Dictation Location: [place] [address] Electronically authenticated by: [id number] Y Date: 04/23/2025 16:35 Dictated By: Cy Jensen M.D. Signed By: 04/23/251636 DD/ 34 TD/TT: Certified Substance Abuse Counselor: Procedure Note Radiology, Radiologist, - 04/23/2025 [place] [address] Ultrasound Report Signed Patient: TRUDI ZAMARRIPA R#: [id number] : 1990Acct:[id number] Age/Sex: 34 / FADM Date: 04/23/25 Loc: [facility] [address]: Rosy Quiroz Ordering Physician: Rosy Quiroz Date of Service: 04/23/25 Procedure(s): US OB BPP w non-stress Accession Number(s): [id number] cc: Rosy Quiroz; Physician,Non-Staff Shimon [facility] [place] [address] Patient Name: TRUDI ZAMARRIPA MRN: [facility]:[id number] date: 1990 Sex: F Assigned Patient Location: US Current Patient Location: US Accession/Order Number: [id number] Exam Date: 04/23/2025 16:03 Report Date: 04/23/2025 16:35 At the request of: ROSY QUIROZ Procedure: US OB BPP w non-stress Biophysical profile. Reason for exam: History of gastric sleeve surgery COMPARISON: 04/15/2025 TECHNIQUE: Transabdominal imaging of the gravid uterus was obtained. FINDINGS: The interlibrary loan services librarian reports a BPP of 8 out of 8. HELLEN is normal at11.5 cm. heart rate 135 bpm. US/US OB BPP w non-stress IMPRESSION: BPP 8 out of 8. Impression dictated by: Cy Jensen Jr., D.O. 04/23/2025 4:35 PM Dictation Location: [place] [address] Electronically authenticated by: [id number] Y Date: 6:35 Dictated By: Cy Jensen M.D. Signed By:04/23/251636 DD/ 1635 TD/TT: Certified Substance Abuse Counselor: us Rosy [facility] Final Result documented in this encounter Visit Diagnoses Not on filedocumented in this encounter Additional Health Concerns Active Problems Noted Date Diagnosed Date OB Reminders 10/19/2024 documented as of this encounter Care Teams Natural Resources Instructor Relationship Specialty Start Date End Date Unallocated, Noms Provider, [address] [place] [address] PCP - General Family Medicine 10/17/23 Amalia Bruce NP [address] [place] [address] PCP - [place] 09/22/24 documented as of this encounter
--- OUTSIDE RECORDS SUMMARY | 2025-05-06 05:08 | XMS_ITS | Encounter Summary ---
Author Organization [facility] Address [address] [place] [address] Care Team Providers Care Manpower Development Specialist Manager Name Role Phone Unallocated, Noms Provider Primary Care Provi chrissy Amalia Bruce MIRROR INSTALLER Unavailable [phone] Encounter Details Date Type Department Care Team (Late st Contact Info) Description 10/29/2024 Abstract CHIARA Johnson OBG[facility] [address] [facility] [address] Roscoe Diaz DO [address] [facility] [place] [address] Social History Tobacco Use Types Packs/Day Years [...] documented as of this encounter Care Teams Manpower Development Specialist Manager Relationship Specialty Start Date End Date Unallocated, Noms Provider, [address] [place] [address] PCP - General Family Medicine 10/17/23 Amalia Bruce, TONIA [address] [place] [address] PCP - [place] Wild 09/22/24 documented as of this encounter
--- OUTSIDE RECORDS SUMMARY | 2025-05-06 05:08 | XMS_ITS | Encounter Summary ---
Author Organization [facility] Address [address] [place] [address] Care Team Providers Care Aircraft Charter Dispatcher Name Role Phone Unallocated, Noms Provider Primary Care Provi chrissy Amalia Bruce SECURITY ALARM INSTALLER Unavailable [phone] Reason for Visit * Reason Onset Date Comments Med Refill 10/23/2024 Encounter Details Date Type Department Care Team (Late st Contact Info) Description 10/23/2024 Refill [facility] [address] [facility] [address] [place] [address] Unallocated, Noms Provider, [address] [place] [address] Social History Tobacco Use Types Packs/Day Years [...] documented as of this encounter Care Teams Aircraft Charter Dispatcher Relationship Specialty Start Date End Date Unallocated, Noms Provider, [address] [place] [address] PCP - General Family Medicine 10/17/23 Amalia Bruce, TONIA [address] [place] [address] PCP - [place] Wild 09/22/24 documented as of this encounter
--- OUTSIDE RECORDS SUMMARY | 2025-05-06 05:08 | XMS_ITS | Encounter Summary ---
Author Organization [facility] Address [address] [place] [address] Care Team Providers Care Generator Technician Name Role Phone Unallocated, Noms Provider Primary Care Provi chrissy Amalia Bruce CAMERA REPAIR TECHNICIAN Unavailable [phone] Encounter Details Date Type Department Care Team (Late st Contact Info) Description 01/09/2025 Abstract [facility] [address] [address] Roscoe Diaz DO [address] [facility] [place] [address] Social History Tobacco Use Types Packs/Day Years [...] documented as of this encounter Care Teams Generator Technician Relationship Specialty Start Date End Date Unallocated, Noms Provider, [address] [place] [address] PCP - General Family Medicine 10/17/23 Amalia Bruce, TONIA [address] [place] [address] PCP - Capo Wild 09/22/24 documented as of this encounter
--- OUTSIDE RECORDS SUMMARY | 2025-05-06 05:08 | XMS_ITS | Encounter Summary ---
Author Organization [facility] Address [address] [place] [address] Care Team Providers Care Wrecking Car Driver Name Role Phone Dasha Lujan MD Primary Care Provider Sonia Dickerson CLOTH MEASURER.BYPRODUCTS OPERATOR Unavailable Fatimah Geiger CLOTH MEASURER.BYPRODUCTS OPERATOR Unavailable Ruth Richardson CLOTH MEASURER.BYPRODUCTS OPERATOR Unavailable Berenice Rivas APRN.BYPRODUCTS OPERATOR Unavailable [phone] Zarina Pope PA-C Unavailable Source Comments In the event this information is protected by the Federal Confidentiality of Alcohol and Drug AbusePatient Records regulations: The Federal rules restrict any use of the information to criminally investigate or prosecute any alcohol or drug abuse patient.[facility] Encounter Details Date Type Department Care Team (Late st Contact Info) Description 06/18/2024 Patient Msg Internal Medicine [address] [place] [address] Berenice Rivas APRN.BYPRODUCTS OPERATOR [address] [place] [address] Appointment Request Social History Tobacco Use Types Packs/Day Years Used Date Smoking Tobacco: Never Smokeless Tobacco: Never Alcohol Use Standard Drinks/Week Comments Yes 1.3 (1 standard drink = 0.6 oz p ure alcohol) occ. drink [facility] Utilities Answer Date Recorded In the past 12 months has th e electric, gas, oil, or water [employer] threatened to shut off services in your [...] often do you attend chur ch or voodoo services? Never 07/19/2023 Do you belong to any clubs o r organizations such as presybeterian groups, unions, fraternal or athletic groups, or [...] Answer Date Recorded PHQ-2 score 0 07/22/2023 [facility] [place] of Occupat ional Health - Occupational Stress [...] is lower risk 8 07/19/2023 Data from: https://www.neighborhoodatlas.medicine.[facility].edu/. Last address used for calculation [...] on filedocumented in this encounter Care Teams Wrecking Car Driver Relationship Specialty [place] [address] [place] [address] PCP - General Internal Medicine 01/11/22 Sonia Dickerson, CLOTH MEASURER.BYPRODUCTS OPERATOR [address] [place] [address] Commercial Decorator Internal Medicine 07/30/24 08/29/24 Fatimah Geiger, CLOTH MEASURER.BYPRODUCTS OPERATOR [address] [place] [address] Commercial Decorator Internal Medicine 07/30/24 Ruth Richardson, CLOTH MEASURER.BYPRODUCTS OPERATOR [address] [place] [address] [facility] Internal Medicine 07/30/24 08/29/24 Berenice Rivas, CLOTH MEASURER.BYPRODUCTS OPERATOR [address] [place] [address] [facility] Internal Medicine 07/30/24 08/29/24 Zarina Pope PA-C [address] [place] [address] Commercial Decorator Internal Medicine 07/30/24 08/29/24 documented as of this encounter
--- OUTSIDE RECORDS SUMMARY | 2025-05-06 05:08 | XMS_ITS | Encounter Summary ---
Author Organization [facility] Address [address] [place] [address] Care Team Providers Care Barrel Endshaker Adjuster Name Role Phone Unallocated, Noms Provider Primary Care Provi chrissy Amalia Bruce SERVICE OR WORK DISPATCHER Unavailable [phone] Encounter Details Date Type Department Care Team (Late st Contact Info) Description 02/06/2025 Abstract [facility] Johnson OBGYN [address] [place] [address] Roscoe Diaz DO [address] [facility] [place] [address] Social History Tobacco Use Types Packs/Day Years [...] documented as of this encounter Care Teams Barrel Endshaker Adjuster Relationship Specialty Start Date End Date Unallocated, Noms Provider, [address] [place] [address] PCP - General Family Medicine 10/17/23 Amalia Bruce, TONIA [address] [place] [address] PCP - Capo Wild 09/22/24 documented as of this encounter
--- OUTSIDE RECORDS SUMMARY | 2025-05-06 05:08 | XMS_ITS | Encounter Summary ---
Author Organization [facility] Address [address] [place] [address] Care Team Providers Care Activities Therapist Name Role Phone Dasha Lujan MD Primary Care Provider Sonia Dickerson AIR HOIST OPERATOR.PRODUCTION GRADER Unavailable Fatimah Geiger AIR HOIST OPERATOR.PRODUCTION GRADER Unavailable [phone] Ruth Richardson AIR HOIST OPERATOR.PRODUCTION GRADER Unavailable [phone] Berenice Rivas APRN.PRODUCTION GRADER Unavailable Zarina Pope PA-C Unavailable Source Comments In the event this information is protected by the Federal Confidentiality of Alcohol and Drug AbusePatient Records regulations: The Federal rules restrict any use of the information to criminally investigate or prosecute any alcohol or drug abuse patient.[facility] Encounter Details Date Type Department Care Team (Late st Contact Info) Description 06/12/2024 Patient Msg Internal Medicine [address] [place] [address] Berenice Rivas APRN.PRODUCTION GRADER [address] [place] [address] Appointment Request Social History Tobacco Use Types Packs/Day Years Used Date Smoking Tobacco: Never Smokeless Tobacco: Never Alcohol Use Standard Drinks/Week Comments Yes 1.3 (1 standard drink = 0.6 oz p ure alcohol) occ. drink [facility] Utilities Answer Date Recorded In the past 12 months has th e electric, gas, oil, or water [employer] threatened to shut off services in your [...] often do you attend chur ch or church services? Never 07/19/2023 Do you belong to any clubs o r organizations such as shinto groups, unions, fraternal or athletic groups, or [...] Date Recorded PHQ-2 score 0 07/22/2023 [facility] [place] of Occupat ional Health - Occupational Stress [...] 8 07/19/2023 Data from: https://www.neighborhoodatlas.medicine.[facility].edu/. Last address used for calculation [address] [...] on filedocumented in this encounter Care Teams Activities Therapist Relationship Specialty [place] [address] [place] [address] PCP - General Internal Medicine 01/11/22 Sonia Dickerson, AIR HOIST OPERATOR.PRODUCTION GRADER [address] [place] [address] Med Dir Internal Medicine 07/30/24 08/29/24 Fatimah Geiger, AIR HOIST OPERATOR.PRODUCTION GRADER [address] [place] [address] Med Dir Internal Medicine 07/30/24 Ruth Richardson, AIR HOIST OPERATOR.PRODUCTION GRADER [address] [place] [address] [facility] Internal Medicine 07/30/24 08/29/24 Berenice Rivas, AIR HOIST OPERATOR.PRODUCTION GRADER [address] [place] [address] [facility] Internal Medicine 07/30/24 08/29/24 Zarina Pope PA-C [address] [place] [address] Med Dir Internal Medicine 07/30/24 08/29/24 documented as of this encounter
--- OUTSIDE RECORDS SUMMARY | 2025-05-06 05:08 | XMS_ITS | Clinical Summary ---
Author Organization [facility] Address [address] [place] [address] Care Team Providers Care Paper Cutter Name Role Phone Unallocated, Noms Provider Primary Care Provi chrissy Amalia Bruce PITCH GATHERER Unavailable [phone] Allergies No known active allergies Medications omeprazole OTC (PriLOSEC OTC) 20 MG EC tablet Take 20 mg by mouth in the morning. Take before meals. Do not crush, chew, or split.. Active Vit-Fe Fumarate-FA ( 19) 29-1 MG chewable tabletIndication s:, unspecified gestational age ([facility]) Chew 1 each Daily 30 tablet 11 5 Active Alcohol Swabs (Alcohol Prep Pad) 70 % padsIndications: Gestational diabetes mellitus (GDM), antepartum, gestational diabetes method of control unspecified ([facility]),Elevat ed glucose tolerance test Apply 1 Pad topically Daily Use four times daily to check FSBS. 150 each 3 5 Active Blood Glucose Monitoring Suppl (D-Care Glucometer) w/Device kitIndications:G estational diabetes mellitus (GDM), antepartum, gestational diabetes method of control unspecified ([facility]),Elevat ed glucose tolerance test 1 kit [...] 9:20 AM [place] [address] Rosy Quiroz PA 37 weeks gestation of ([facility]); Third trimester ([facility]); H/O gastric sleeve; Insulin controlled gestational diabetes mellitus (GDM) during , antepartum ([facility]) 05/01/2025 Travel 04/29/2025 Clinisync Result Encounter NOMS External Department Unsolicited Rosy Quiroz PA 04/24/2025 11:30 [place] [address] Roscoe Diaz DO Third trimester ([facility]); 36 weeks gestation of ([facility]) 04/24/2025 [place] [address] Roscoe Diaz DO 04/23/2025 Clinisync Result Encounter NOMS External Department Unsolicited Rosy Quiroz PA 04/17/2025 Travel 04/15/2025 Clinisync Result Encounter NOMS External Department Unsolicited Rosy Quiroz PA 04/10/2025 3:00 PM [place] [address] Rosceo Diaz DO 34 weeks gestation of ([facility]); Third trimester ([facility]); H/O gastric sleeve; Insulin controlled gestational diabetes mellitus (GDM) during , antepartum ([facility]) 04/10/2025 [place] [address] Roscoe Diaz DO 04/08/2025 10:00 AM EDT Ancillary Procedure [facility] [place] [address] H/O gastric sleeve 04/08/2025 Clinisync Result Encounter NOMS External Department Unsolicited Rosy Quiroz PA 04/06/2025 Travel 04/05/2025 Telephone [facility] [address] [place] [address] Houstonbertha MonikaCOOPER 04/01/2025 Clinisync Result Encounter NOMS External Department Unsolicited Rosy Quiroz PA 03/28/2025 Telephone [facility] [address] [place] [address] Jes Garza MA 03/27/2025 2:00 PM EDT Routine [facility] [address] [place] [address] Roscoe Diaz, Third trimester ([facility]); H/O gastric sleeve; Gestational diabetes mellitus (GDM), antepartum, gestational diabetes method of control unspecified ([facility]); 32 weeks gestation of ([facility]) 03/27/2025 Bamboo flowsheet [facility] [address] [place] [address] [place] [address] Roscoe Diaz DO 03/27/2025 Travel 03/13/2025 3:50 PM EDT Routine [facility] [address] [place] [address] Rosy Quiroz PA 30 weeks gestation of ([facility]); Third trimester ([facility]); H/O gastric sleeve; Gestational diabetes mellitus (GDM), antepartum, gestational diabetes method of control unspecified ([facility]) 03/13/2025 Bamboo flowsheet [facility] [address] [place] [address] Rosy Quiroz PA 03/10/2025 Travel 02/27/2025 1:40 PM [place] [address] Roscoe Diaz DO 28 weeks gestation of ([facility]); Third trimester ([facility]); H/O gastric sleeve; Gestational diabetes mellitus (GDM), antepartum, gestational diabetes method of control unspecified ([facility]) 02/27/2025 1:00 PM EDT [place] [address] H/O gastric sleeve 02/26/2025 Travel 02/11/2025 11:30 AM [place] [address] Rosy Quiroz PA Second trimester ([facility]); 26 weeks gestation of ([facility]); H/O gastric sleeve 02/11/2025 Travel 02/06/2025 [place] [address] Roscoe Diaz DO 02/04/2025 [place] [address] Monika Mesa LPN 02/04/2025 [place] [address] Monika Mesa, VICE PRESIDENT OF FINANCE ALL CBC WITH AUTO DIFF, GLUCOSE 1 HOUR from Last 3 Months Family History Medical [...] 9:27 AM EDT 37 weeks gestation of ([facility]) Third trimester ([facility]) US OB BPP W NON-STRESS 04/29/2025 3:39 PM EDT POCT URINALYSIS DIPSTICK Routine 04/24/2025 11:56 AM EDT Third trimester ([facility]) 36 weeks gestation of ([facility]) CULTURE, GROUP B STREP WITH SUSCEPTIBLITY Routine 04/24/2025 11:41 AM EDT Third trimester ([facility]) US OB BPP W NON-STRESS 04/23/2025 4:35 [...] Routine 03/27/2025 2:49 PM EDT Third trimester ([facility]) H/O gastric sleeve Gestational diabetes mellitus (GDM), antepartum, gestational diabetes method of control unspecified ([facility]) 32 weeks gestation of ([facility]) POCT URINALYSIS DIPSTICK Routine 03/13/2025 3:46 PM EDT 30 weeks gestation of ([facility]) Third trimester ([facility]) POCT URINALYSIS DIPSTICK Routine 02/27/2025 2:04 PM EDT 28 weeks gestation of ([facility]) Third trimester ([facility]) US OB FOLLOW UP TRANSABDOMINAL APPROACH Routine 02/27/2025 1:40 PM EDT H/O gastric sleeve POCT URINALYSIS DIPSTICK Routine 02/11/2025 11:50 AM EDT Second trimester ([facility]) PAP SMEAR Routine 12/10/2024 12:00 AM EDT [...] - Positive Urine 05/01/2025 9:27 AM EDT us Rosy KRUGER POINT OF CARE TEST ENTER/EDIT OR DERABLES Final Result * US OB BPP W NON-STRESS (04/29/2025 3:39 PM EDT) Only the most recent of5 resultswithin the time period is included. Anatomical Region Laterality Modality Other 04/29/2025 3:39 PM EDT Narrative 04/29/2025 3:41 PM EDT [place] [id number] Ultrasound Report Signed Patient: TRUDI ZAMARRIPA MR#: [id number] : 1990 Acct:[id number] Age/Sex: 34 / F ADM Date: 04/29/25 Loc: [facility] 250-[address]: Rosy Quiroz Ordering Physician: Rosy Quiroz Date of Service: 04/29/25 Procedure(s): US OB BPP w non-stress Accession Number(s): [id number] cc: Rosy Quiroz; Physician,Non-Staff M.D. The [address] [address] Patient Name: TRUDI ZAMARRIPA MRN: [facility]:[id number] date: 1990 Sex: F Assigned Patient Location: [facility] Current Patient Location: [facility] Accession/Order Number: [id number] Exam Date: 04/29/2025 15:05 Report Date: 04/29/2025 15:39 At the request of: ROSY QUIROZ Procedure: US OB BPP w non-stress Biophysical profile. Reason for exam: History of gastric sleeve surgery COMPARISON: 04/23/2025 TECHNIQUE: Transabdominal imaging of the gravid uterus was obtained. FINDINGS: The underwriting internship reports a BPP of 8 out of 8. HELLEN is normal at 12.0 cm. heart rate 135 bpm. US/US OB BPP w non-stress IMPRESSION: BPP 8 out of 8. Impression dictated by: Cy Jensen Jr., D.O. 04/29/2025 3:39 PM Dictation Location: [place] [address] Electronically authenticated by: [id number] Y Date: 04/29/2025 15:39 Dictated By: Cy Jensen M.D. Signed By: 04/29/25 1541 DD/ 1539 TD/TT: Pharmacy Technician Assistant: Procedure Note Radiology, Radiologist, - 04/29/2025 [place] [address] Ultrasound Report Signed Patient: TRUDI ZAMARRIPA JMR#: [id number] : 1990Acct:[id number] Age/Sex: 34 / FADM Date: 04/29/25 Loc: [facility] 250-[address]: Rosy Quiroz Ordering Physician: Rosy Quiroz Date of Service: 04/29/25 Procedure(s): US OB BPP w non-stress Accession Number(s): [id number] cc: Rosy Quiroz; Physician,Non-Staff MMickey The [place] [id number] Patient Name: TRUDI ZAMARRIPA MRN: [id number] date: 1990 Sex: F Assigned Patient Location: [facility] Current Patient Location: [facility] Accession/Order Number: [id number] Exam Date: 04/29/2025 15:05 Report Date: 04/29/2025 15:39 At the request of: ROSY QUIROZ Procedure: US OB BPP w non-stress Biophysical profile. Reason for exam: History of gastric sleeve surgery COMPARISON: 04/23/2025 TECHNIQUE: Transabdominal imaging of the gravid uterus was obtained. FINDINGS: The underwriting internship reports a BPP of 8 out of 8. HELLEN is normal at12.0 cm. heart rate 135 bpm. US/US OB BPP w non-stress IMPRESSION: BPP 8 out of 8. Impression dictated by: Cy Jensen Jr. D.OCharisse 04/29/2025 3:39 PM Dictation Location: [place] [address] Electronically authenticated by: [id number] Y Date: 5:39 Dictated By: Cy Jensen M.D. Signed By:04/29/25 1541 DD/ 1539 TD/TT: Pharmacy Technician Assistant: Rosy [facility]UG[facility] Final Result * CULTURE, GROUP B STREP WITH SUSCEPTIBLITY (04/24/2025 11:41 AM EDT) Swab 04/24/2025 11:4 1 AM EDT Roscoe Joe DO LAB BLOOD ORDERABLES Final [...] II, MD, PHD at 09-Apr-2025 07:59:18 AM [facility] Procedure Note Brittany Ferreira MD - [...] signed by BRITTANY FERREIRA II, MD, PHD [id number] 07:59:18 AM [facility] us Roscoe Joe DO IMG OB US PROCEDURES Final Resul t * Pap Smear (12/10/2024 12:00 AM EDT) Swab Cervical swab / Unknown us Joe Nurse Noms Bcp Ob LAB CYTOLOGY ORDERABLES Final Result EXTERNAL LAB from Last 3 Months or Most Recently Relevant to Health Maintenance Additional Health Concerns Active Problems Noted Date Diagnosed Date OB Reminders 10/19/2024 Insurance [facility] Care Teams Paper Cutter Relationship Specialty Start Date End Date Unallocated, Noms MD Herlinda [address] [place], [place] [id number] PCP - General Family Medicine 10/17/23 Amalia Bruce NP [address] [place] [address] PCP - [place] Commercial 09/22/24
--- OUTSIDE RECORDS SUMMARY | 2025-05-06 05:08 | XMS_ITS | Encounter Summary ---
Author Organization [facility] tem Address [id number] [address] [place] [address] Care Team Providers Care Director Pharmacovigilance Name Role Phone Unavailable Primary Care Provider Unavailabl e Reason for Visit * Reason Comments Med Change Request Encounter Details Date Type Department Care Team (Late st Contact Info) Description 05/01/2025 Refill Maternal- Medicine at [facility] [address] [place] [address] Marilia Dillon, INFANT BABYSITTER-CARROTING MACHINE OFFBEARER [address] [place] [address] Gestational diabetes requiring insulin Social History Tobacco [...]
--- OUTSIDE RECORDS SUMMARY | 2025-05-06 05:08 | XMS_ITS | Encounter Summary ---
Author Organization [facility] Address [id number] [address] [place] [address] Care Team Providers Care Audio/Video Engineer Name Role Phone Unavailable Primary Care [...]
--- OUTSIDE RECORDS SUMMARY | 2025-05-06 05:08 | XMS_ITS | Encounter Summary ---
Author Organization [facility] Address [address] [place] [address] Care Team Providers Care Plate Shop Helper Name Role Phone Unallocated, Noms Provider Primary Care Provi chrissy Amalia Bruce NUB CARD TENDER Unavailable [phone] Encounter Details Date Type Department Care Team (Late st Contact Info) Description 12/26/2024 Orders Only [facility] [address] [place] [phone] Iman Saldana LPN [address] [place] [id number] Social History Tobacco Use Types Packs/Day Years [...] as of this encounter Care Teams Plate Shop Helper Relationship Specialty Start Date End Date Unallocated, Noms Provider, [facility] [place] [address] PCP - General Family Medicine 10/17/23 Amalia Bruce, NUB CARD TENDER [address] [place] [address] PCP - Capo Wild 09/22/24 documented as of this encounter
--- OUTSIDE RECORDS SUMMARY | 2025-05-06 05:08 | XMS_ITS | Encounter Summary ---
Author Organization [facility] tem Address [id number] [address] [place] [address] Care Team Providers Care Investment Consultant Name Role Phone Unavailable Primary Care Provider Unavailabl e Encounter Details Date Type Department Care Team (Late st Contact Info) Description 04/23/2025 Telephone Maternal- Medicine at [facility] [address] [place] [address] Devika Pope, JOEL [address] [place] [address] Social History Tobacco Use Types Packs/Day Years [...]
--- OUTSIDE RECORDS SUMMARY | 2025-05-06 05:08 | XMS_ITS | Encounter Summary ---
Author Organization [facility] Address [address] [place] [address] Care Team Providers Care Grounds Maintenance Supervisor Name Role Phone Unallocated, Noms Provider Primary Care Provi chrissy Amalia Bruce DREDGE MECHANIC Unavailable [phone] Encounter Details Date Type Department Care Team (Late st Contact Info) Description 04/24/2025 Bamboo flowsheet [facility] OBG[facility] [address] [place] [address] Roscoe Diaz DO [address] [place], [facility] Social History Tobacco Use Types Packs/Day [...] documented as of this encounter Care Teams Grounds Maintenance Supervisor Relationship Specialty Start Date End Date Unallocated, Noms Provider, [address] [place] [address] PCP - General Family Medicine 10/17/23 Amalia Bruce, TONIA [address] [place] [address] PCP - Capo Wild 09/22/24 documented as of this encounter
--- OUTSIDE RECORDS SUMMARY | 2025-05-06 05:08 | XMS_ITS | Clinical Summary ---
Author Organization [facility] Address [facility] [id number] [address] [place] [address] Care Team Providers Care Optometric Technician Name Role Phone Unavailable Primary Care Provider Unavailabl e Allergies No known active allergies Medications 25-IRON WRN-ISTCI-QDP ORAL Take 1 tablet by mouth in [...] 8:00 AM EDT Telemedicine [facility]- [facility] at [address] [place] [address] Marilia Dillon APRN-CNP Gestational diabetes requiring insulin (Primary Dx) 05/01/2025 Refill [facility]- [facility] at [address] [place] [address] Marilia Dillon APRN-CNP Gestational diabetes requiring insulin 05/01/2025 Travel 04/23/2025 Telephone [facility]- [facility] at [address] [place] [address] Devika Pope LD 04/15/2025 Telephone [facility] at [address] [place] [address] Beulah Miller RN 04/09/2025 Telephone [facility] at [address] [place] [address] Devika Pope LD 04/01/2025 10:00 AM EDT Telemedicine Maternal- Medicine at [facility] [address] [place] [address] Daisha Morel PA-C Gestational diabetes requiring insulin (Primary Dx) 04/01/2025 Telephone Maternal- Medicine at [facility] [address] [place] [address] Blanquita Toney, KARISSA 04/01/2025 Travel 04/01/2025 Telephone Maternal- Medicine at [facility] [address] [place] [address] Blanquita Toney, KARISSA 03/26/2025 Telephone [facility]- Medicine at [address] [place] [place] [address] Devika Pope LD 03/19/2025 Telephone M[facility]- Medicine at [address] [place] [address] Fatimah Ball LD 03/12/2025 1:30 PM EDT Office Visit Maternal- Medicine at [address] [place] [address] Daisha Morel, JULIENNE Gestational diabetes mellitus (GDM) in second trimester, gestational diabetes method of control unspecified (Primary Dx); Gestational diabetes requiring insulin 03/12/2025 Travel 03/05/2025 Telephone Maternal- Medicine at [facility] [address] [place] [address] Devika Pope LD 02/26/2025 Telephone Maternal- Medicine at [address] [place] [address] Devika Pope LD 02/14/2025 1:30 PM EDT Support Visit Maternal- Medicine at [address] [place] [address] Hien Giles, RN Devika Pope, JOEL Gestational diabetes mellitus (GDM) in second trimester, gestational diabetes method of control unspecified (Primary Dx) 02/13/2025 Travel 02/07/2025 Orders Only Maternal- Medicine at [facility] [address] [place] [address] Ref Prov, Not In System 02/07/2025 Abstract Maternal- Medicine at [facility] [address] [place] [address] External, Scanning Provider from Last 3 Months [...] GENETIC TEST Routine 02/07/2025 10:32 AM EDT from Last 3 Months Results * Glucose [...] TRANSCRIBED RESULTS from Last 3 Months Insurance [facility]
--- OUTSIDE RECORDS SUMMARY | 2025-05-06 05:08 | XMS_ITS | Clinical Summary ---
Author Organization [facility] Address [address] [place] [address] Care Team Providers Care Financial Coach Name Role Phone Dasha Lujan MD Primary Care Provider [phone] Fatimah Geiger APRN.SANDER HAND Unavailable [phone] Allergies No known active allergies Medications Omeprazole Magnesium (ACID [employer] CAMPING GROUND MANAGER, OMEPRAZOLE,) 20 mg cpDR 04/16/2022 Active Active [...] 0.6 oz p ure alcohol) occ. drink [facility] Utilities Answer Date Recorded In the past 12 months has [email or web address], gas, oil, or water [employer] threatened to shut off services in your [...] often do you attend chur ch or anabaptism services? Never 07/19/2023 Do you belong to [...] Answer Date Recorded PHQ-2 score 0 06/29/2024 [place] [place] of Occupat ional Health - Occupational Stress [...] No 07/19/2023 Housing Stability Vital Sign Answer Lucina e Recorded In the last 12 months, [...] place to sleep or slept in a skilled nursing (including now)? No 07/19/2023 Area Deprivation Index Answer Date Vern rded National Score (1-100), lower number is lower ri sk 90 07/19/2023 State Score (1-10), lower number is lower risk 8 07/19/2023 Data from: https://www.neighborhoodatlas.medicine.[facility].edu/. Last address used for calculation [address] [...] Hepatitis C Screening Discontinued Insurance Care Teams Financial Coach Relationship Specialty [place] [address] [place], [place] [id number] PCP - General Internal Medicine 01/11/22 Fatimah Geiger APRN.SANDER HAND [address] [place], [place] [id number] Assessment Rn Internal Medicine 07/30/24
--- OUTSIDE RECORDS SUMMARY | 2025-05-06 05:08 | XMS_ITS | Encounter Summary ---
Author Organization [facility] Address [facility] [place] [address] Care Team Providers Care First Front Ventilator Name Role Phone Dasha Lujan MD Primary Care Provider Sonia Dickerson DISTRIBUTOR OF DIRECTORIES.WOOD FINISHER APPRENTICE Unavailable Fatimah Geiger DISTRIBUTOR OF DIRECTORIES.WOOD FINISHER APPRENTICE Unavailable [phone] Ruth Richardson DISTRIBUTOR OF DIRECTORIES.WOOD FINISHER APPRENTICE Unavailable [phone] Berenice Rivas DISTRIBUTOR OF DIRECTORIES.WOOD FINISHER APPRENTICE Unavailable Zarina Pope-C Unavailable Source Comments In the event this information is protected by the Federal Confidentiality of Alcohol and Drug AbusePatient Records regulations: The Federal rules restrict any use of the information to criminally investigate or prosecute any alcohol or drug abuse patient.[facility] Encounter Details Date Type Department Care Team (Late st Contact Info) Description 06/21/2023 Patient Msg Internal Medicine [address] [place] [address] Provider, Ccf APPOINTMENT CANCELED Social History Tobacco [...] How often do you attend chur or sabianism services? Never 01/12/2022 Do you belong to any clubs o r organizations such as voodoo groups, unions, fraternal or athletic groups, or [...] Answer Date Recorded PHQ-2 score 0 01/12/2022 [facility] of Occupat ional Health - Occupational [...] place to sleep or slept in a long term (including now)? No 06/29/2022 Area Deprivation Index Answer Date Vern rded National Score (1-100), lower number is lower ri sk 70 09/03/2022 State Score (1-10), lower number is lower risk N ot on file 09/03/2022 Data from: https://www.neighborhoodatlas.medicine.[facility].edu/. Last address used for calculation [address] [...] on filedocumented in this encounter Care Teams First Front Ventilator Relationship Specialty [place] [address] [place], [place] [id number] PCP - General Internal Medicine 01/11/22 Sonia Dickerson APRN.CNP [address] [place] [address] Striper Spray Gun Internal Medicine 07/30/24 08/29/24 Fatimah Geiger, DISTRIBUTOR OF DIRECTORIES.WOOD FINISHER APPRENTICE [address] [place] [address] [facility] Internal Medicine 07/30/24 Ruth Richardson APRN.WOOD FINISHER APPRENTICE [address] [place] [address] [facility] Internal Medicine 07/30/24 08/29/24 Berenice Rivas, DISTRIBUTOR OF DIRECTORIES.WOOD FINISHER APPRENTICE [address] [place] [address] [facility] Internal Medicine 07/30/24 08/29/24 Zarina Pope PA-C [address] [place] [address] [facility] Internal Medicine 07/30/24 08/29/24 documented as of this encounter
--- OUTSIDE RECORDS SUMMARY | 2025-05-06 05:08 | XMS_ITS | Encounter Summary ---
Author Organization [facility] Address [address] [place] [address] Care Team Providers Care Factory Representative Name Role Phone Dasha Lujan MD Primary Care Provider Sonia Dickerson LINE PREP COOK.HAND BINDERY ASSEMBLY WORKER Unavailable Fatimah Geiger LINE PREP COOK.HAND BINDERY ASSEMBLY WORKER Unavailable Ruth Richardson LINE PREP COOK.HAND BINDERY ASSEMBLY WORKER Unavailable Berenice Rivas APRN.HAND BINDERY ASSEMBLY WORKER Unavailable Zarina Pope PA-C Unavailable [phone] Source Comments In the event this information is protected by the Federal Confidentiality of Alcohol and Drug AbusePatient Records regulations: The Federal rules restrict any use of the information to criminally investigate or prosecute any alcohol or drug abuse patient.[facility] Encounter Details Date Type Department Care Team (Late st Contact Info) Description 06/18/2024 Patient Msg Internal Medicine [address] [place] [address] Berenice Rivas APRN.HAND BINDERY ASSEMBLY WORKER [address] [place] [address] Appointment Request Social History Tobacco Use Types Packs/Day Years Used Date Smoking Tobacco: Never Smokeless Tobacco: Never Alcohol Use Standard Drinks/Week Comments Yes 1.3 (1 standard drink = 0.6 oz p ure alcohol) occ. drink [facility] Utilities Answer Date Recorded In the past 12 months has th e electric, gas, oil, or water [employer] threatened to shut off services in your [...] often do you attend chur ch or orthodoxy services? Never 07/19/2023 Do you belong to any clubs o r organizations such as nondenominational groups, unions, fraternal or athletic groups, or [...] Answer Date Recorded PHQ-2 score 0 07/22/2023 [facility] of Occupat ional Health - Occupational Stress [...] place to sleep or slept in a half-way (including now)? No 07/19/2023 Area Deprivation Index Answer Date Vern rded National Score (1-100), lower number is lower ri sk 90 07/19/2023 State Score (1-10), lower number is lower risk 8 07/19/2023 Data from: https://www.neighborhoodatlas.medicine.[facility].edu/. Last address used for calculation [address] 07/19/2023 Comments Unknown Sex and Gender Information Value Date Recorded Sex Assigned at Female 01/12/2022 12:43 PM EDT Legal Sex Female 7:36 PM EDT Gender Identity Female 01/12/2022 12:43 PM EDT Sexual Orientation Not on file documented as of this encounter Plan of Treatment Not on file documented as of this encounter Visit Diagnoses Not on filedocumented in this encounter Care Teams Factory Representative Relationship Specialty [place] [address] [place] [address] PCP - General Internal Medicine 01/11/22 Sonia Dickerson, LINE PREP COOK.HAND BINDERY ASSEMBLY WORKER [address] [place] [address] Rn Case Management Internal Medicine 07/30/24 08/29/24 Fatimah Geiger, LINE PREP COOK.HAND BINDERY ASSEMBLY WORKER [address] [place] [address] Rn Case Management Internal Medicine 07/30/24 Ruth Richardson, LINE PREP COOK.HAND BINDERY ASSEMBLY WORKER [address] [place] [address] [facility] Internal Medicine 07/30/24 08/29/24 Berenice Rivas, LINE PREP COOK.HAND BINDERY ASSEMBLY WORKER [address] [place] [address] [facility] Internal Medicine 07/30/24 08/29/24 Zarina Pope PA-C [address] [place] [address] Rn Case Management Internal Medicine 07/30/24 08/29/24 documented as of this encounter
--- OUTSIDE RECORDS SUMMARY | 2025-05-06 05:08 | XMS_ITS | Encounter Summary ---
Author Organization [facility] Address [address] [place] [address] Care Team Providers Care Sales And Merchandising Representative Name Role Phone Unallocated, Ebenezer Provider Primary Care Provi chrissy Amalia Bruce SENIOR FACILITIES MANAGER Unavailable [phone] Encounter Details Date Type Department Care Team [...] documented as of this encounter Care Teams Sales And Merchandising Representative Relationship Specialty Start Date End Date Unallocated, Ebenezer ProviderMD [address] [place] [address] PCP - General Family Medicine 10/17/23 Amalia Bruce NP [id number] PCP - [place] 09/22/24 documented as of this encounter
[2025-05-06] MEDS: 0.9 % SODIUM CHLORIDE 1,000 ML 125 ML IV ×3 (05:56→23:53)
[2025-05-06] MEDS: OXYTOCIN/0.9 % SODIUM CHLORIDE 10 UNITS/500 ML PLAST..BAG 6 UNIT IV (05:58)
[2025-05-06 06:53] LABS: Hematocrit 34.1 % (36.0-48.0); Hemoglobin 11.7 g/dL (12.0-16.0); Mean Corpuscular HGB Conc 34.3 g/dL (29.9-35.2); Mean Corpuscular Hemoglobin 33.9 pg (26.7-34.0); Mean Corpuscular Volume 98.8 fL (81.0-99.0); Platelet Count 149 10^3/uL (150-450); Red Blood Count 3.45 10^6/uL (4.20-5.40); White Blood Count 7.3 10^3/uL (4.0-11.0)
[2025-05-06 07:14] LABS: Cannabinoid Screen Urine NEGATIVE (NEGATIVE); Methamphetamines Screen Urine NEGATIVE (NEGATIVE); Tricyclic Antidepressant Urine NEGATIVE (NEGATIVE)
[2025-05-06] MEDS: 0.9 % SODIUM CHLORIDE 1,000 ML 1000 ML IV (12:38)
[2025-05-06] MEDS: ROPIVACAINE HCL/PF 400 MG/200 ML PREMIX 6 MG EPIDURAL (13:11)
[2025-05-06] MEDS: OXYTOCIN/0.9 % SODIUM CHLORIDE 10 UNITS/500 ML PLAST..BAG 60 UNIT IV (17:09)
[2025-05-06] MEDS: CALCIUM CARBONATE 500 MG (200MG ELEMENTAL) TAB CHEW 1000 MG PO (18:46)
[2025-05-07] VITALS (42 sets, daily range): BP systolic 103–134; BP diastolic 45–82; PULSE 59–98; TEMP 36.8–37.3; O2SAT 97–100
[2025-05-07] MEDS: CALCIUM CARBONATE 500 MG (200MG ELEMENTAL) TAB CHEW 1000 MG PO (01:07)
[2025-05-07] MEDS: OXYTOCIN/0.9 % SODIUM CHLORIDE 10 UNITS/500 ML PLAST..BAG 24 UNIT IV (04:00)
[2025-05-07] MEDS: CITRIC ACID/SODIUM CITRATE 30 ML SOLUTION ORACIT SHOHL'S SOLN PO (06:54)
[2025-05-07] MEDS: METOCLOPRAMIDE HCL 10 MG/2 ML VIAL IVP (06:54)
[2025-05-07] MEDS: CEFAZOLIN SODIUM/DEXTROSE,ISO 2 GM/50 ML PIGGYBACK IV ×2 (06:54→12:35)
[2025-05-07] MEDS: FAMOTIDINE/PF 20 MG/2 ML VIAL IV (06:54)
--- NOTE | 2025-05-07 08:06 | P.ON_ITS ---
Brief Operative Note Date of procedure: 05/07/25 Pre-op diagnosis general: iup at 38 2/7wks, gdma1 insulin, gastric sleeve, danelle lure to descend, failure to dilate Post-op diagnosis: same as pre-op Procedure: NAME OF PROCEDURE: [ section ] PROCEDURE: Patient was taken back to the Operating Room where she was given a spinal anesthesia with Duramorph without difficulty. She was prepped and draped in the normal sterile fashion. A Pfannenstiel skin incision was then made 2 cm above the symphysis pubis and carried down to underlying rectus fascia using a Bovie. The fascia was incised in the midline and extended laterally using Barksdale scissors. Two Deepti clamps were placed on the superior aspect of the fascia and dissected off the underlying rectus muscles. The same was performed on the inferior aspect as well. The muscles were then in the midline. Peritoneum was identified and entered bluntly. The peritoneum was then extended superiorly and inferiorly with good visualization of the bladder. The bladder blade was inserted. A low transverse incision was made on the patient's uterus and extended laterally digitally. The was then delivered atraumatically after the bladder blade was removed in the cephalic position. The cord was clamped and cut. Cord blood was obtained. The was handed off to awaiting team. The patient's placenta was spontaneously delivered. The uterus was then exteriorized. The uterus was cleared of all clots and debris. The bladder blade was reinserted. The patient's uterine incision was closed using #0 Vicryl in a running lock fashion. Excellent hemostasis was assured. The uterus was then returned to the patient's abdomen. The patient's abdomen was copiously irrigated using warm saline. Peritoneal gutters were cleared of all clots and debris. Again excellent hemostasis was assured. The patient's peritoneum was closed using 3-0 Vicryl in a running fashion. The patient's fascia was closed using #0 Vicryl in a running fashion. The patient's skin was closed using 4-0 Vicryl subcuticularly. The patient tolerated the procedure well. Sponge, lap, and needle counts were correct x2. The patient was taken to the Recovery Room in stable condition. Anesthesia: epidural Surgeon: Roscoe Diaz Frame Welder Cargo Utility Trailers: Sharla Joyce Estimated blood loss (mL): 575 Pathology: none sent Condition: stable Disposition: floor Urinary Catheter Management Urinary Catheter Management Urethral: Cath placed during this visit: no
[2025-05-07] MEDS: KETOROLAC TROMETHAMINE 30 MG/ML VIAL IVP (13:10)
[2025-05-07] MEDS: ENOXAPARIN SODIUM 40 MG/0.4 ML SYRINGE SUBQ (20:01)
[2025-05-08 00:30] VITALS: BP 101/63; PULSE 75; TEMP 37.1
[2025-05-08] MEDS: KETOROLAC TROMETHAMINE 30 MG/ML VIAL IVP ×2 (03:02→16:46)
[2025-05-08 04:34] VITALS: BP 96/79
[2025-05-08 04:41] VITALS: BP 96/79; PULSE 84; TEMP 36.3
--- NOTE | 2025-05-08 07:34 | PM.OBPN ---
OB - PN: Subj Subjective Patient comments: no complaints and pain well controlled Johnson status: doing well Exam Constitutional Vital Signs, click to edit/add: Last Vital Signs Temp 97.4 F L 05/08/25 04:41 Pulse 84 05/08/25 04:41 Resp 17 05/07/25 16:08 BP 96/79 05/08/25 04:41 Pulse Ox 97 05/07/25 20:00 O2 Del Method Room Air 05/08/25 04:42 Documenting provider has reviewed patient's vital signs: yes Common normals: no apparent distress Respiratory Common normals: normal respiratory effort and clear to auscultation bilaterally Cardio Common normals: regular rate and regular rhythm GI Common normals: Normal to inspection, nondistended, normoactive bowel sounds present Extremity Common normals: no clubbing, cyanosis or edema and no calf tenderness Urinary Catheter Management Urinary Catheter Management Urethral: Cath placed during this visit: yes, but has since been removed by the nurse Insertion date: 05/06/25 Insertion time: 13:55 Removal date: 05/07/25 Removal time: 16:15 OB - PN: A/P Plan - day: 1 Plan: routine postop care Time Spent with Patient Time: Total time spent is greater than 50% in coordination of care (as documented) at patient's floor/unit and/or counseling patient: Total time spent with greater than 50% in coordination of care (as documented) at patient's floor/unit and/or counseling patient: less than 15 minutes
[2025-05-08 08:05] VITALS: BP 108/58
[2025-05-08 09:39] LABS: Hematocrit 26.1 % (36.0-48.0); Hemoglobin 9.0 g/dL (12.0-16.0); Immature Granulocytes Abs Auto 0.03 10^3/uL (0.00-0.03); Immature Granulocytes Pct Auto 0.3 % (0.0-0.5); Lymphocytes Absolute Auto 1.4 10^3/uL (1.2-3.8); Mean Corpuscular HGB Conc 34.5 g/dL (29.9-35.2); Mean Corpuscular Hemoglobin 35.3 pg (26.7-34.0); Mean Corpuscular Volume 102.4 fL (81.0-99.0); Platelet Count 115 10^3/uL (150-450); Red Blood Count 2.55 10^6/uL (4.20-5.40); White Blood Count 11.6 10^3/uL (4.0-11.0)
[2025-05-08 16:53] VITALS: BP 126/71; TEMP 36.5
[2025-05-08] MEDS: ENOXAPARIN SODIUM 40 MG/0.4 ML SYRINGE SUBQ (21:26)
[2025-05-08] MEDS: DOCUSATE SODIUM 100 MG CAPSULE PO (21:26)
[2025-05-09] MEDS: KETOROLAC TROMETHAMINE 30 MG/ML VIAL IVP (01:26)
[2025-05-09 01:30] VITALS: BP 116/79; TEMP 37.1
--- NOTE | 2025-05-09 09:04 | P.OBPN_ITS ---
OB - PN: Subj Subjective Patient comments: no complaints and pain well controlled [place] status: doing well Exam Constitutional Vital Signs, click to edit/add: Last Vital Signs Temp 98.7 F 05/09/25 01:30 Pulse 84 05/08/25 04:41 Resp 14 05/09/25 01:30 BP 116/79 05/09/25 01:30 Pulse Ox 97 05/07/25 20:00 O2 Del Method Room Air 05/09/25 01:30 Documenting provider has reviewed patient's vital signs: yes Common normals: no apparent distress Respiratory Common normals: normal respiratory effort and clear to auscultation bilaterally Cardio Common normals: regular rate and regular rhythm GI Common normals: Normal to inspection, nondistended, normoactive bowel sounds present Extremity Common normals: no clubbing, cyanosis or edema and no calf tenderness Results Labs Labs: Short CBC 05/08/25 Range/Units 06:36 WBC 11.6 H (4.0-11.0) 10^3/uL Hgb 9.0 L (12.0-16.0) g/dL Hct 26.1 L (36.0-48.0) % Plt Count 115 L (150-450) 10^3/uL Urinary Catheter Management Urinary Catheter Management Urethral: Cath placed during this visit: yes, but has since been removed by the mari lentz Insertion date: 05/06/25 Insertion time: 13:55 Removal date: 05/07/25 Removal time: 16:15 OB - PN: A/P Plan - day: 2 Plan: routine postop care, discharge home and other (fu 1wk) Time Spent with Patient Time: Total time spent is greater than 50% in coordination of care (as documented) at patient's floor/unit and/or counseling patient: Total time spent with greater than 50% in coordination of care (as documented) at patient's floor/unit and/or counseling patient: less than 15 minutes
[2025-05-09] MEDS: IBUPROFEN 400 MG TABLET 800 MG PO (10:03)
[2025-05-09 10:11] VITALS: BP 120/57; PULSE 70
[2025-05-09 10:29] VITALS: TEMP 36.6
[2025-05-09] MEDS: DIPHTH,PERTUSS(ACELL),TET VAC 0.5 ML SYRINGE IM (16:58)
== END 2025-05-09 17:15 | disposition home or self-care (01) | DRG 788 ==
PROVIDERS: Admitting Provider Obstetrics & Gynecology; Visit Provider Obstetrics & Gynecology
PROC: 10D00Z1 Extraction of Products of Conception, Low, Open Approach (ICD-10-PCS; CPT 59514; principal; 2025-05-07 07:30)
DX: O24.424 Gestational diabetes mellitus in childbirth, insulin controlled (principal); O99.844 Bariatric surgery status complicating childbirth; O62.0 Primary inadequate contractions; O32.4XX0 Maternal care for high head at term, not applicable or unspecified; Z3A.38 38 weeks gestation of pregnancy; Z37.0 Single live birth
CPT/HCPCS: 36415; 51702; 59050; 80307; 85025; 85027; 86850; 86900; 86901; 90715; 94667; 94668; J0690; J1100; J1650; J1885; J2274; J2300; J2371; J2405; J2590; J2765; J2795; J3010; J3490

== ENCOUNTER 2025-05-14 08:13 | Outpatient (OUT) | payer BC, SELFPAY ==
--- OUTSIDE RECORDS SUMMARY | 2025-05-14 08:18 | XMS_ITS | CCD ---
Author Organization [facility] CliniSyde Care Team Providers Care Knot Bumper Name Role Phone Unavailable Primary Care Provider UnavailDasha Kern MD Primary Care Provider [phone] MD Dasha Lujan Primary Care Provider BRETT Breaux Attending Provider [phone] Reena Breaux Admitting Unavailable Reena Breaux Attending [...] Unavailable Unallocated , Noms Provider Primary Care [facility] Antonio TANK TRUCK LOADER, Edu N Unavailable [phone] Antonio TANK TRUCK LOADER, Edu N Unavailable Unavailable Primary Care Provider UnavailDEVIKA Lima Attending Unavailable ROSCOE DIAZ Referring Unavailable DAISHA BRISENO Attending Unavailable ROSCOE DIAZ R Referring Unavailable DAISHA BRISENO Attending Unavailable DARI DIAZY R Referring Unavailable JOSIAH DILLON Attending Unavailable DARI DIAZY R Referring Unavailable DARI DIAZY Attending Unavailable ROSY BARTON Attending Unavailable ROSCOE DIAZ Attending Unavailable ROSY BARTON Attending Unavailable ROSY BARTON Referring Unavailable ROSCOE DIAZ Attending Unavailable ROSY BARTON Attending Unavailable ROSCOE DIAZ Attending Unavailable ROSCOE DIAZ Referring Unavailable ROSCOE DIAZ Attending Unavailable ROSCOE DIAZ Attending Unavailable SINA JAIN Attending Unavailable SINA JAIN Referring Unavailable ANTONIO EDU N Attending Unavailable ROSY BARTON Attending Unavailable Medications Current Medications Medication Drug Class(es) Dates Sig (Normalized) Sig (Original) aspirin 81 mg delayed release oral tablet (20 sources) Platelet Aggregation Inhibitor, Nonsteroidal Anti-inflammatory Drug take 1 tablet by mouth once daily aspirin 81 MG EC tablet Take 81 mg by mouth Daily Active aspirin 81 mg ch ewable tablet Chew 1 tablet (81 mg total) and swallow in the morning. Active bisacodyl 5 mg delayed release oral [...] control unspecified ([facility]) , Elevated glucose tolerance test 1 kit [...] control unspecified ([facility]) , Elevated glucose tolerance test Apply 1 Pad topically Daily Use four times daily to check FSBS. 150 each 3 02/04/2025 Active omeprazole 20 mg delayed release oral capsule (20 sources) Proton Pump Inhibitor Start: 04-16-2022 Omeprazole Magnesium ([employer], OMEPRAZOLE,) 20 mg cpDR 04/16/2022 Active take [...] 30 days. BMI 29.76 polyethylene glycol 3350 31171 mg powder for oral solution (2 sources) Osmotic Laxative Start: End: take 17 g by mouth once polyethylene glycol, PEG, 3350 (Glycolax) 17 GM/SCOOP powder Indications: Colonoscopy Take 238 g by mouth 1 (one) time for 1 dose Take as detailed from clinic hand out for colonoscopy prep 238 g 07/25/2024 07/25/2024 Active 25-IRON BSW-QHIOC-RRA ORAL (15 sources) take 1 tablet by mouth in the morning 25-IRON MSD-ZECAB-CZG ORAL Take 1 tablet by mouth in the morning. Active Vit-Fe Fumarate-FA ( 19) 29-1 MG chewable tablet (20 sources) Start: Vit-Fe Fumarate-FA ( 19) 29-1 MG chewable tablet Indications: , unspecified gestational age ([facility]) Chew 1 each [...] Test Name Value Interpretation Reference Range Facility ALL CBC WITH AUTO DIFFon BASOPHILS ABSOLUTE AUTO 0 N [facility] Basophils/100 WBC (Bld) 0.2 % 0.2 - 2.0 % [facility] Eosinophils/100 WBC (Bld) 1.2 % 0.9 - 7.0 % [facility] Erythrocyte distribution width (RBC) [Ratio] 14.1 % 11.0 - 15.0 % [facility] Hematocrit (Bld) [Volume fraction] 26.1 % Low 36.0 - 48.0 % [facility] Hemoglobin (Bld) [Mass/Vol] 9 g/dL Low 12.0 - 16.0 g/dL [facility] IMMATURE GRANULOCYTES ABS AUTO 0.03 [facility] Immature granulocytes/100 WBC (Bld) 0.3 % 0.0 - 0.5 % [facility] Interpretation and review of laboratory results Abnormal [facility] LYMPHOCYTES ABSOLUTE AUTO 1.4 [facility] Lymphocytes/100 WBC (Bld) 12.3 % Low 20.5 - 60.0 % [facility] MCH (RBC) [Entitic mass] 35.3 pg High 26. 7 - 34.0 pg [facility] MCHC (RBC) [Mass/Vol] 34.5 g/dL 29.9 - 35.2 g/dL [facility] MCV (RBC) [Entitic vol] 102.4 fL High 81.0 - 99.0 fL [facility] MONOCYTES ABSOLUTE AUTO 0.6 N [facility] Monocytes/100 WBC (Bld) 5.1 % 1.7 - 12.0 % [facility] NEUTROPHILS ABSOLUTE AUTO 9.4 High [facility] Neutrophils/100 WBC (Bld) 80.9 % High 43.0 - 75.0 % [facility] Platelet mean volume (Bld) [Entitic vol] 12.1 fL 9.5 - 13.5 fL [facility] TBH EO # 0.1 [facility] PLT 115 Low [facility] RBC 2.55 Low [facility] WBC 11.6 High [facility] HMHP CBC WITH PLATELET NO DI FFERENTIALon 05-06-2025 Erythrocyte distribution width (RBC) [Ratio] 13.8 % 11.0 - 15.0 % [facility] Hematocrit (Bld) [Volume fraction] 34.1 % Low 36.0 - 48.0 % [facility] Hemoglobin (Bld) [Mass/Vol] 11.7 g/dL Low 12.0 - 16.0 g/dL [facility] Interpretation and review of laboratory results Abnormal [facility] MCH (RBC) [Entitic mass] 33.9 pg 26. 7 - 34.0 pg [facility] MCHC (RBC) [Mass/Vol] 34.3 g/dL 29.9 - 35.2 g/dL [facility] MCV (RBC) [Entitic vol] 98.8 fL 81.0 - 99.0 fL [facility] Platelet mean volume (Bld) [Entitic vol] 12.1 fL 9.5 - 13.5 fL [facility] TBH PLT 149 Low [facility] TB RBC 3.45 Low [facility] TB WBC 7.3 [facility] Urinalysis macro (dipstick) panel (U)on 05-01-2025 Bilirubin, UA Negative Negative - 4(70) +++ mg/dL [facility] Blood, UA Negative Negative - 50 Iraj/mcL [facility] Clarity, UA Clear [facility] Color, UA Yellow [facility] Glucose, UA Negative Negative - 1999(110) ++++ mg/dL [facility] Interpretation and review of laboratory results Abnormal [facility] Ketones, UA Negative Negative - 160(16) ++++ mg/dL [facility] Leukocytes, UA Positive Negative - 500+++ Mari/mcL [facility] Nitrite, UA Negative Negative - Positive [facility] pH, UA 6 5 - 9 [facility] Protein, UA Negative Negative - 1999(20) ++++ mg/dL [facility] Spec Grav, UA 1.01 1 - 1.03 [facility] Urobilinogen, UA 1.0 0.2 - 12 mg/dL [facility] US OB BPP W NON-STRESS on 04-29-2025 [place] [address] Ultrasound Report Signed Patient: CARYL ZAMARRIPA MR#: [id number] : 1990 Acct:[id number] Age/Sex: 34 / F ADM Date: 04/29/25 Loc: [facility] 250- Attending Dr: Rosy Barton Ordering Physician: Rosy Barton Date of Service: 04/29/25 Procedure(s): US OB BPP w non-stress Accession Number(s): [id number] cc: Rosy Barton; Physician,Non-Staff M.Bruce The [place] [address] Patient Name: CARYL ZAMARRIPA MRN: [facility]:[id number] date: 1990 Sex: F Assigned Patient Location: [facility] Current Patient Location: [facility] Accession/Order Number: [id number] Exam Date: 04/29/2025 15:05 Report Date: 04/29/2025 15:39 At the request of: ROSY BARTON Procedure: US OB BPP w non-stress Biophysical profile. Reason for exam: History of gastric sleeve surgery COMPARISON: 04/23/2025 TECHNIQUE: Transabdominal imaging of the gravid uterus was obtained. FINDINGS: The overlock sleeve setter reports a BPP of 8 out of 8. HELLEN is normal at 12.0 cm. heart rate 135 bpm. US/US OB BPP w non-stress IMPRESSION: BPP 8 out of 8. Impression dictated by: Cy Jensen Jr., D.O. 04/29/2025 3:39 PM Dictation Location: [place] [address] Electronically authenticated by: [id number] Y Date: 04/29/2025 15:39 Dictated By: Cy Jensen M.D. Signed By: 04/29/25 1541 DD/ 1539 TD/TT: [place] Operator: [facility] Radiology, Radiologist, MD - 04/29/2025 [place] [address] Ultrasound Report Signed Patient: CARYL ZAMARRIPA MR#: [id number] : 1990 Acct:[id number] Age/Sex: 34 / F ADM Date: 04/29/25 Loc: [facility] 250-[address]: Rosy Barton Ordering Physician: Rosy Barton Date of Service: 04/29/25 Procedure(s): US OB BPP w non-stress Accession Number(s): [id number] cc: Rosy Barton; Physician,Non-Staff Shimon [facility] [place] [address] Patient Name: CARYL ZAMARRIPA MRN: [facility]:[id number] date: 1990 Sex: F Assigned Patient Location: [facility] Current Patient Location: [facility] Accession/Order Number: [id number] Exam Date: 04/29/2025 15:05 Report Date: 04/29/2025 15:39 At the request of: ROSY BARTON Procedure: US OB BPP w non-stress Biophysical profile. Reason for exam: History of gastric sleeve surgery COMPARISON: 04/23/2025 TECHNIQUE: Transabdominal imaging of the gravid uterus was obtained. FINDINGS: The overlock sleeve setter reports a BPP of 8 out of 8. HELLEN is normal at 12.0 cm. heart rate 135 bpm. US/US OB BPP w non-stress IMPRESSION: BPP 8 out of 8. Impression dictated by: Cy Jensen Jr., D.O. 04/29/2025 3:39 PM Dictation Location: [place] [address] Electronically authenticated by: [id number] Y Date: 04/29/2025 15:39 Dictated By: Cy Jensen M.D. Signed By: 04/29/25 1541 DD/ 1539 TD/TT: [place] Operator: [facility] Radiology Study observation (narrative) [facility] US OB BPP W NON-STRESS Ordered By: Radiologist Radiology on 04-29-2025 [facility] Work Phone: Urinalysis macro (dipstick) panel (U)on 04-24-2025 Bilirubin, UA Negative Negative - 4(70) +++ mg/dL [facility] Blood, UA Negative Negative - 50 Iraj/mcL [facility] Clarity, UA Clear [facility] Color, UA Yellow [facility] Glucose, UA Negative Negative - 2000(110) ++++ mg/dL [facility] Interpretation and review of laboratory results Normal [facility] Ketones, UA Negative Negative - 160(16) ++++ mg/dL [facility] Leukocytes, UA Negative Negative - 500+++ Mari/mcL [facility] Nitrite, UA Negative Negative - Positive [facility] pH, UA 6 5 - 9 [facility] Protein, UA Negative Negative - 2000(20) ++++ mg/dL [facility] Spec Grav, UA 1.02 1 - 1.03 [facility] Urobilinogen, UA 1.0 0.2 - 12 mg/dL [facility] US OB BPP W NON-STRESS on 04-23-2025 [place] [address] Ultrasound Report Signed Patient: CARYL ZAMARRIPA MR#: [id number] : 1990 Acct:[id number] Age/Sex: 34 / F ADM Date: 04/23/25 Loc: [facility] 250-[address]: Rosy Barton Ordering Physician: Rosy Barton Date of Service: 04/23/25 Procedure(s): US OB BPP w non-stress Accession Number(s): [id number] cc: Rosy Barton; Physician,Non-Staff MMickey The [address] [address] Patient Name: CARYL ZAMARRIPA MRN: [facility]:[id number] date: 1990 Sex: F Assigned Patient Location: Current Patient Location: US Accession/Order Number: [id number] Exam Date: 04/23/2025 16:03 Report Date: 04/23/2025 16:35 At the request of: ROSY BARTON Procedure: US OB BPP w non-stress Biophysical profile. Reason for exam: History of gastric sleeve surgery COMPARISON: 04/15/2025 TECHNIQUE: Transabdominal imaging of the gravid uterus was obtained. FINDINGS: The overlock sleeve setter reports a BPP of 8 out of 8. HELLEN is normal at 11.5 cm. heart rate 135 bpm. US/US OB BPP w non-stress IMPRESSION: BPP 8 out of 8. Impression dictated by: Cy Jensen Jr., D.O. 04/23/2025 4:35 PM Dictation Location: [place] [address] Electronically authenticated by: [id number] Y Date: 04/23/2025 16:35 Dictated By: Cy Jensen M.D. Signed By: 04/23/25 1637 DD/ 163 TD/TT: [place] Operator: [facility] Radiology, Radiologist, MD - 04/23/2025 [place] [address] Ultrasound Report Signed Patient: CARYL ZAMARRIPA MR#: [id number] : 1990 Acct:[id number] Age/Sex: 34 / F ADM Date: 04/23/25 Loc: [facility] 250-[address]: Rosy Barton Ordering Physician: Rosy Barton Date of Service: 04/23/25 Procedure(s): US OB BPP w non-stress Accession Number(s): [id number] cc: Rosy Barton; Physician,Non-Staff Shimon The [place] [id number] Patient Name: CARYL ZAMARRIPA MRN: [id number] date: 1990 Sex: F Assigned Patient Location: US Current Patient Location: US Accession/Order Number: [id number] Exam Date: 04/23/2025 16:03 Report Date: 04/23/2025 16:35 At the request of: ROSY BARTON Procedure: US OB BPP w non-stress Biophysical profile. Reason for exam: History of gastric sleeve surgery COMPARISON: 04/15/2025 TECHNIQUE: Transabdominal imaging of the gravid uterus was obtained. FINDINGS: The overlock sleeve setter reports a BPP of 8 out of 8. HELLEN is normal at 11.5 cm. heart rate 135 bpm. US/US OB BPP w non-stress IMPRESSION: BPP 8 out of 8. Impression dictated by: Cy Jensen Jr., D.OCharisse 04/23/2025 4:35 PM Dictation Location: [place] [address] Electronically authenticated by: [id number] Y Date: 04/23/2025 16:35 Dictated By: Cy Jensen M.D. Signed By: 04/23/251636 DD/ 34 TD/TT: [place] Operator: [facility] Radiology Study observation (narrative) [facility] US OB BPP W NON-STRESS Ordered By: Radiologist Radiology on 04-23-2025 [facility] Work Phone: US OB BPP W NON-STRESS on 04-15-2025 [place] [address] Ultrasound Report Signed Patient: CARYL ZAMARRIPA MR#: [id number] : 1990 Acct:[id number] Age/Sex: 34 / F ADM Date: 04/15/25 Loc: US Attending Dr: Rosy Barton Ordering Physician: Rosy Barton Date of Service: 04/15/25 Procedure(s): US OB BPP w non-stress Accession Number(s): [id number] cc: Rosy Barton; Physician,Non-Staff M.Bruce The [place] [id number] Patient Name: CARYL ZAMARRIPA MRN: [facility]:[id number] date: 1990 Sex: F Assigned Patient Location: Current Patient Location: Accession/Order Number: [id number] Exam Date: 04/15/2025 15:09 Report Date: 04/15/2025 16:16 At the request of: ROSY BARTON Procedure: US OB BPP w non-stress Biophysical profile. Reason for exam: History of gastric sleeve surgery COMPARISON: 04/08/2025 TECHNIQUE: Transabdominal imaging of the gravid uterus was obtained. FINDINGS: The overlock sleeve setter reports a BPP of 8 out of 8. HELLEN is normal at 17 cm. heart rate 136 bpm. US/US OB BPP w non-stress IMPRESSION: BPP 8 out of 8. Impression dictated by: Cy Jensen Jr., D.O. 04/15/2025 4:16 PM Dictation Location: [place] [address] Electronically authenticated by: [id number] Y Date: 04/15/2025 16:16 Dictated By: Cy Jensen M.D. Signed By: 04/15/251618 DD/ 15 TD/TT: [place] Operator: [facility] Radiology, Radiologist, - 04/15/2025 [place] [address] Ultrasound Report Signed Patient: CARYL ZAMARRIPA MR#: [id number] : 1990 Acct:[id number] Age/Sex: 34 / F ADM Date: 04/15/25 Loc: US Attending Dr: Rosy Barton Ordering Physician: Rosy Barton Date of Service: 04/15/25 Procedure(s): US OB BPP w non-stress Accession Number(s): [id number] cc: Rosy Barton; Physician,Non-Staff Shimon The [address] [address] Patient Name: CARYL ZAMARRIPA MRN: [facility]:[id number] date: 1990 Sex: F Assigned Patient Location: Current Patient Location: Accession/Order Number: [id number] Exam Date: 04/15/2025 15:09 Report Date: 04/15/2025 16:16 At the request of: ROSY BARTON Procedure: US OB BPP w non-stress Biophysical profile. Reason for exam: History of gastric sleeve surgery COMPARISON: 04/08/2025 TECHNIQUE: Transabdominal imaging of the gravid uterus was obtained. FINDINGS: The overlock sleeve setter reports a BPP of 8 out of 8. HELLEN is normal at 17 cm. heart rate 136 bpm. US/US OB BPP w non-stress IMPRESSION: BPP 8 out of 8. Impression dictated by: Cy Jensen Jr., D.O. 04/15/2025 4:16 PM Dictation Location: [place] [address] Electronically authenticated by: [id number] Y Date: 04/15/2025 16:16 Dictated By: Cy Jensen M.D. Signed By: 04/15/25 1619 DD/ 161 TD/TT: [place] Operator: [facility] Radiology Study observation (narrative) [facility] US OB BPP W NON-STRESS Ordered By: Radiologist Radiology on 04-15-2025 [facility] Work Phone: Urinalysis macro (dipstick) panel (U)on 04-10-2025 Bilirubin, UA Negative Negative - 4(70) +++ mg/dL [facility] Blood, UA Negative Negative - 50 Iraj/mcL [facility] Clarity, UA Clear [facility] Color, UA Yellow [facility] Glucose, UA Negative Negative - 2000(110) ++++ mg/dL [facility] Interpretation and review of laboratory results Abnormal [facility] Ketones, UA Negative Negative - 160(16) ++++ mg/dL [facility] Leukocytes, UA Positive Negative - 500+++ Mari/mcL [facility] Nitrite, UA Negative Negative - Positive [facility] pH, UA 6 5 - 9 [facility] Protein, UA Positive Negative - 1999(20) ++++ mg/dL [facility] Spec Grav, UA 1.015 1 - 1.03 [facility] Urobilinogen, UA 1.0 0.2 - 12 mg/dL [facility] US OB BPP W NON-STRESS on 04-08-2025 [place] [address] Ultrasound Report Signed Patient: CARYL ZAMARRIPA MR#: [id number] : 1990 Acct:[id number] Age/Sex: 34 / F ADM Date: 04/08/25 Loc: US Attending Dr: Rosy Barton Ordering Physician: Rosy Barton Date of Service: 04/08/25 Procedure(s): US OB BPP w non-stress Accession Number(s): [id number] cc: Rosy Barton; Physician,Non-Staff M.DCharisse The [place] [id number] Patient Name: CARYL ZAMARRIPA MRN: [facility]:[id number] date: 1990 Sex: F Assigned Patient Location: [facility] Current Patient Location: Accession/Order Number: [id number] Exam Date: 04/08/2025 20:36 Report Date: 04/08/2025 [...] Briscoe M.D. 04/08/2025 8:37 PM Dictation Location: [place] [address] Electronically authenticated by: [id number] Y Date: 04/08/2025 20:37 Dictated By: Suraj Briscoe D.O. Signed By: 04/08/252038 DD/ 36 TD/TT: [place] Operator: [facility] Radiology, Radiologist, - 04/08/2025 [place] [address] Ultrasound Report Signed Patient: CARYL ZAMARRIPA MR#: [id number] : 1990 Acct:[id number] Age/Sex: 34 / F ADM Date: 04/08/25 Loc: US Attending Dr: Roys Barton Ordering Physician: Rosy Barton Date of Service: 04/08/25 Procedure(s): US OB BPP w non-stress Accession Number(s): [id number] cc: Rosy Barton; Physician,Non-Staff M.DCharisse [facility] [address] [place] [id number] Patient Name: CARYL ZAMARRIPA MRN: [id number] date: 1990 Sex: F Assigned Patient Location: [facility] Current Patient Location: Accession/Order Number: [id number] Exam Date: 04/08/2025 20:36 Report Date: 04/08/2025 [...] Briscoe M.D. 04/08/2025 8:37 PM Dictation Location: [place] [address] Electronically authenticated by: [id number] Y Date: 04/08/2025 20:37 Dictated By: Suraj Briscoe D.O. Signed By: 04/08/252038 DD/ 36 TD/TT: [place] Operator: [facility] Radiology Study observation (narrative) [facility] US OB BPP W NON-STRESS Ordered By: Radiologist Radiology on 04-08-2025 [facility] Work Phone: US OB FOLLOW UP TRANSABDOMIN [...] II, MD, PHD at 09-Apr-2025 07:59:18 AM [facility] Normal Not Available Comment on above: Order Comment: US OB SCAN FOR GROWTH Estimated Date of Delivery: 05/19/25 Gestational Age as of 04/05/2025: 33w5d US OB BPP W NON-STRESS on 04-01-[address] [address] Ultrasound Report Signed Patient: CARYL ZAMARRIPA MR#: [id number] : 1990 Acct:[id number] Age/Sex: 34 / F ADM Date: 04/01/25 Loc: [facility] 250-[address]: Rosy Barton Ordering Physician: Rosy Barton Date of Service: 04/01/25 Procedure(s): US OB BPP w non-stress Accession Number(s): [id number] cc: Rosy Barton; Physician,Non-Staff M.D. The [address] [address] Patient Name: CARYL ZAMARRIPA MRN: [facility]:[id number] date: 1990 Sex: F Assigned Patient Location: US Current Patient Location: US Accession/Order Number: [id number] Exam Date: 04/01/2025 15:28 Report Date: 04/01/2025 15:29 At the request of: ROSY BARTON Procedure: US OB BPP w non-stress Biophysical profile. Reason for exam: History of gastric sleeve surgery COMPARISON: None TECHNIQUE: Transabdominal imaging of the gravid uterus was obtained. FINDINGS: The overlock sleeve setter reports a BPP of 8 out of 8. HELLEN is normal at 10.8 cm. heart rate 125 bpm. US/US OB BPP w non-stress IMPRESSION: BPP 8 out of 8. Impression dictated by: Cy Jensen Jr., D.O. 04/01/2025 3:29 PM Dictation Location: [place] [address] Electronically authenticated by: [id number] Y Date: 04/01/2025 15:29 Dictated By: Cy Jensen M.D. Signed By: 04/01/25 1531 DD/ 1529 TD/TT: [place] Operator: [facility] Radiology, Radiologist, MD - 04/01/[address] [address] Ultrasound Report Signed Patient: CARYL ZAMARRIPA MR#: [id number] : 1990 Acct:[id number] Age/Sex: 34 / F ADM Date: 04/01/25 Loc: [facility] 250-[address]: Rosy Barton Ordering Physician: Rosy Barton Date of Service: 04/01/25 Procedure(s): US OB BPP w non-stress Accession Number(s): [id number] cc: Rosy Barton; Physician,Non-Staff Shimon The [address] [address] Patient Name: CARYL ZAMARRIPA MRN: [facility]:[id number] date: 1990 Sex: F Assigned Patient Location: US Current Patient Location: US Accession/Order Number: [id number] Exam Date: 04/01/2025 15:28 Report Date: 04/01/2025 15:29 At the request of: ROSY BARTON Procedure: US OB BPP w non-stress Biophysical profile. Reason for exam: History of gastric sleeve surgery COMPARISON: None TECHNIQUE: Transabdominal imaging of the gravid uterus was obtained. FINDINGS: The overlock sleeve setter reports a BPP of 8 out of 8. HELLEN is normal at 10.8 cm. heart rate 125 bpm. US/US OB BPP w non-stress IMPRESSION: BPP 8 out of 8. Impression dictated by: Cy Jensen Jr., D.O. 04/01/2025 3:29 PM Dictation Location: [place] Electronically authenticated by: [id number] Y Date: 04/01/2025 15:29 Dictated By: Cy Jensen M.D. Signed By: 04/01/25 1531 DD/ 1529 TD/TT: [place] Operator: [facility] Radiology Study observation (narrative) [facility] US OB BPP W NON-STRESS Ordered By: Radiologist Radiology on 04-01-2025 [facility] Work Phone: Urinalysis macro (dipstick) panel (U)on 03-27-2025 Bilirubin, UA Negative Negative - 4(70) +++ mg/dL [facility] Blood, UA Negative Negative - 50 Iraj/mcL [facility] Clarity, UA Clear [facility] Color, UA Yellow [facility] Glucose, UA Negative Negative - 2000(110) ++++ mg/dL [facility] Interpretation and review of laboratory results Abnormal [facility] Ketones, UA Positive Negative - 160(16) ++++ mg/dL [facility] Leukocytes, UA Few Negative - 500+++ Mari/mcL [facility] Nitrite, UA Negative Negative - Positive [facility] pH, UA 6 5 - 9 [facility] Protein, UA Few Negative - 2000(20) ++++ mg/dL [facility] Spec Grav, UA 1.03 1 - 1.03 [facility] Urobilinogen, UA 0.2 0.2 - 12 mg/dL [facility] Urinalysis macro (dipstick) panel (U)on 03-13-2025 Bilirubin, UA Negative Negative - 4(70) +++ mg/dL [facility] Blood, UA Negative Negative - 50 Iraj/mcL [facility] Clarity, UA Clear [facility] Color, UA Yellow [facility] Glucose, UA Negative Negative - 1999(110) ++++ mg/dL [facility] Interpretation and review of laboratory results Normal [facility] Ketones, UA Negative Negative - 160(16) ++++ mg/dL [facility] Leukocytes, UA Negative Negative - 500+++ Amri/mcL [facility] Nitrite, UA Negative Negative - Positive [facility] pH, UA 6 5 - 9 [facility] Protein, UA Negative Negative - 1999(20) ++++ mg/dL [facility] [facility] Spec Grav, UA 1.01 1 - 1.03 [facility] Urobilinogen, UA 1.0 0.2 - 12 mg/dL [facility] US OB FOLLOW UP TRANSABDOMIN AL [...] UA Negative Negative - 4(70) +++ mg/dL [facility] Blood, UA Negative Negative - 50 Iraj/mcL [facility] Clarity, UA Clear [facility] Color, UA Colorless [facility] Glucose, UA Negative Negative - 1999(110) ++++ mg/dL [facility] Interpretation and review of laboratory results Normal [facility] Ketones, UA Negative Negative - 160(16) ++++ mg/dL [facility] Leukocytes, UA Negative Negative - 500+++ Mari/mcL [facility] Nitrite, UA Negative Negative - Positive [facility] pH, UA 6 5 - 9 [facility] Protein, UA Negative Negative - 1999(20) ++++ mg/dL [facility] Spec Grav, UA 1.01 1 - 1.03 [facility] Urobilinogen, UA 1.0 0.2 - 12 mg/dL [facility] Glucose random or fasting- P OCTon 02-14-2025 External Glucose Fasting Or Random (Fbs) 88 [facility] Urinalysis macro (dipstick) panel (U)on 02-11-2025 Bilirubin, UA Negative Negative - 4(70) +++ mg/dL [facility] Blood, UA Negative Negative - 50 Iraj/mcL [facility] Clarity, UA Clear [facility] Color, UA Yellow [facility] Glucose, UA Positive Negative - 1999(110) ++++ mg/dL [facility] Comment on above: 500mg/dL Interpretation and review of laboratory results Abnormal [facility] Ketones, UA Negative Negative - 160(16) ++++ mg/dL [facility] Leukocytes, UA Negative Negative - 500+++ Mari/mcL [facility] Nitrite, UA Negative Negative - Positive [facility] pH, UA 6 5 - 9 [facility] Protein, UA Negative Negative - 1999(20) ++++ mg/dL [facility] Spec Grav, UA 1.005 1 - 1.03 [facility] Urobilinogen, UA 0.2 0.2 - 12 mg/dL [facility] ALL CBC WITH AUTO DIFFon BASOPHILS ABSOLUTE AUTO 0 [facility] Basophils/100 WBC (Bld) 0.2 % 0.2 - 2.0 % [facility] Eosinophils/100 WBC (Bld) 1.1 % 0.9 - 7.0 % [facility] Erythrocyte distribution width (RBC) [Ratio] 13.6 % 11.0 - 15.0 % [facility] IMMATURE GRANULOCYTES ABS AUTO 0.04 High [facility] Immature granulocytes/100 WBC (Bld) 0.4 % 0.0 - 0.5 % [facility] Interpretation and review of laboratory results Abnormal [facility] LYMPHOCYTES ABSOLUTE AUTO 1.2 [facility] Lymphocytes/100 WBC (Bld) 12.5 % Low 20.5 - 60.0 % [facility] MCH (RBC) [Entitic mass] 33.9 pg 26. 7 - 34.0 pg [facility] MCHC (RBC) [Mass/Vol] 33.9 g/dL 29.9 - 35.2 g/dL [facility] MCV (RBC) [Entitic vol] 100 fL High 81.0 - 99.0 fL [facility] MONOCYTES ABSOLUTE AUTO 0.4 [facility] Monocytes/100 WBC (Bld) 3.9 % 1.7 - 12.0 % [facility] NEUTROPHILS ABSOLUTE AUTO 7.7 High [facility] Neutrophils/100 WBC (Bld) 81.9 % High 43.0 - 75.0 % [facility] Platelet mean volume (Bld) [Entitic vol] 11 fL 9.5 - 13.5 fL [facility] TB EO # 0.1 [facility] TB PLT 172 [facility] RBC 3.39 Low [facility] WBC 9.4 [facility] Glucose 1h post 50g loadon 0 02-01-2025 Glucose, 1 hr PP 50GM dose 198 [facility] - Hematology and Cell countson 02-01-2025 Hematocrit (Bld) [Volume fraction] 33.9 % [facility] Hemoglobin (Bld) [Mass/Vol] 11.5 g/dL [facility] No Panel Informationon 02-01 [facility] US OB LIMITED 1+ FETUSESon 0 01-30-2025 [...] II, MD, PHD at 01-Feb-2025 10:22:21 AM [facility] Normal Not Available Comment on above: Order Comment: US OB INCOMPLETE ANATOMY Estimated Date of Delivery: 05/19/25 Gestational Age as of 01/07/2025: 21w1d Urinalysis macro (dipstick) panel (U)on 01-10-2025 Bilirubin, UA Negative Negative - 4(70) +++ mg/dL [facility] Blood, UA Negative Negative - 50 Iraj/mcL [facility] Clarity, UA Clear [facility] Color, UA Yellow [facility] Glucose, UA Negative Negative - 2000(110) ++++ mg/dL [facility] Interpretation and review of laboratory results Abnormal [facility] Ketones, UA Positive Negative - 160(16) ++++ mg/dL [facility] Leukocytes, UA Negative Negative - 500+++ Mari/mcL [facility] Nitrite, UA Negative Negative - Positive [facility] pH, UA 6 5 - 9 [facility] Protein, UA Negative Negative - 2000(20) ++++ mg/dL [facility] Spec Grav, UA 1.01 1 - 1.03 [facility] Urobilinogen, UA 0.2 0.2 - 12 mg/dL [facility] No Panel InformationOrdered By: Radiologist Radiology on 01-02-2025 [facility] Work Phone: No Panel Informationon 01-02 Radiology Study observation (narrative) [facility] US OB ANATOMYon 01-02-[address] [address] Ultrasound Report Signed Patient: CARYL ZAMARRIPA MR#: [id number] : 1990 Acct:[id number] Age/Sex: 34 / F ADM Date: 01/02/25 Loc: US Attending Dr: Roscoe Diaz D.O. Ordering Physician: Roscoe Diaz D.O. Date of Service: 01/02/25 Procedure(s): US OB anatomy Accession Number(s): [id number] cc: Roscoe Diaz D.O.; Physician,Non-Staff M.DCharisse [place] [id number] Patient Name: CARYL ZAMARRIPA MRN: [id number] date: 1990 Sex: F Assigned Patient Location: US Current Patient Location: US Accession/Order Number: [id number] Exam Date: 01/02/2025 22:40 Report Date: 01/02/2025 [...] Briscoe M.D. 01/02/2025 10:47 PM Dictation Location: [place] [address] Electronically authenticated by: [id number] Y Date: 01/02/2025 22:47 Dictated By: Suraj Briscoe D.O. Signed By: 01/02/252249 DD/ 46 TD/TT: [place] Operator: [facility] Radiology, Radiologist, MD - 01/02/2025 [place] [address] Ultrasound Report Signed Patient: CARYL ZAMARRIPA MR#: [id number] : 1990 Acct:[id number] Age/Sex: 34 / F ADM Date: 01/02/25 Loc: US Attending Dr: Roscoe Diaz D.O. Ordering Physician: Roscoe Diaz D.O. Date of Service: 01/02/25 Procedure(s): US OB anatomy Accession Number(s): [id number] cc: Roscoe Diaz D.O.; Physician,Non-Staff Shimon The [place] [id number] Patient Name: CARYL ZAMARRIPA MRN: [id number] date: 1990 Sex: F Assigned Patient Location: US Current Patient Location: US Accession/Order Number: [id number] Exam Date: 01/02/2025 22:40 Report Date: 01/02/2025 [...] Briscoe M.D. 01/02/2025 10:47 PM [facility]ict[email or web address] Electronically authenticated by: [id number] Y Date: 01/02/2025 22:47 Dictated By: Suraj Briscoe D.O. Signed By: 01/02/252249 DD/ 46 TD/TT: [place] Operator: [employer] OB CERVICAL LENGTHon 12-20 [place] [address] Ultrasound Report Signed Patient: CARYL ZAMARRIPA MR#: [id number] : 1990 Acct:[id number] Age/Sex: 34 / F ADM Date: 01/02/25 Loc: US Attending Dr: Roscoe Diaz D.O. Ordering Physician: Roscoe Diaz D.O. Date of Service: 01/02/25 Procedure(s): US OB cervical length Accession Number(s): [id number] cc: Roscoe Daiz D.O.; Physician,Non-Staff Shimon The [address] [address] Patient Name: CARYL ZAMARRIPA MRN: [facility]:[id number] date: 1990 Sex: F Assigned Patient Location: US Current Patient Location: US Accession/Order Number: [id number] Exam Date: 01/02/2025 22:40 Report Date: 01/02/2025 [...] Briscoe M.D. 01/02/2025 10:47 PM Dictation Location[email or web address] Electronically authenticated by: [id number] Y Date: 01/02/2025 22:47 Dictated By: Suraj Briscoe D.O. Signed By: 01/02/25 1600 DD/ 46 TD/TT: [place] Operator: [facility] Radiology, Radiologist, - 01/02/[address] [address] Ultrasound Report Signed Patient: CARYL ZAMARRIPA MR#: [id number] : 1990 Acct:[id number] Age/Sex: 34 / F ADM Date: 01/02/25 Loc: US Attending Dr: Roscoe Diaz D.O. Ordering Physician: Roscoe Diaz D.O. Date of Service: 01/02/25 Procedure(s): US OB cervical length Accession Number(s): [id number] cc: Roscoe Diaz D.O.; Physician,Non-Staff Shimon The [place] [id number] Patient Name: CARYL ZAMARRIPA MRN: [id number] date: 1990 Sex: F Assigned Patient Location: US Current Patient Location: US Accession/Order Number: [id number] Exam Date: 01/02/2025 22:40 Report Date: 01/02/2025 [...] Briscoe M.D. 01/02/2025 10:47 PM Dictation Location: [employer] Electronically authenticated by: [id number] Y Date: 01/02/2025 22:47 Dictated By: Suraj Briscoe D.O. Signed By: 01/02/252249 DD/ 46 TD/TT: [place] Operator: CHIARA Vicente AFP Single Marker ScrCasey guerra rnal, Serumon 12-31-2024 Ms Alpha-Fetoprotein Negative [facility] IGP,APTIMA HPV,AGE GDLNon AGE GDLN ACOG TESTING Note . [facility] Comment on above: TESTS RESULT FLAG UN ITS REF RANGE LAB Clinician Provided Cytology Information Source.............[employer] Other.............. No. of containers..01 ThinPrep Vial Age Algo ACOG Enedina... 30- 01 FLAG LEGEND: L-Low Normal,H-High Normal,LL-Alert Low,HH-Alert High <-Panic Low,>-Panic High,A-Abnormal,AA-Critical Abnormal Performed at: 01 =[address] [place] [address] Rossy Odonnell MD, HPV APTIMA Negative Negative [facility] Comment on above: This nucleic acid am plification test detects fourteen high- risk HPV types (16,18,31,33,35,39,45,51,52,56,58,59,66,68) without differentiation. Performed at: =[address] [id number] [employer] Developer: Rossy Odonnell MD, Phone: [phone] Performed at: [address] [id number] [employer] Developer: Rossy Odonnell MD, Phone: [phone] IGP, APTIMA HPV, RFX 16/18,45 Note . [facility] Comment on above: TESTS RESULT FLAG UN ITS REF RANGE LAB DIAGNOSIS: 02 NEGATIVE FOR INTRAEPITHELIAL LESION OR MALIGNANCY. Specimen adequacy: 02 Satisfactory for evaluation. No endocervical component is identified. An endocervical component is not commonly seen in the patient. Performed by: Ronan Lucero Traffic Operations Manager ([facility]) . 02 Note: Note 02 The Pap [...] High,A-Abnormal,AA-Critical Abnormal Performed at: 02 [facility] [address] [address] Rossy Odonnell MD, SPATULA-ALONE [facility] RECURRENT VAGINITIS (HTRX)on 12-11-2024 ATOPOBIUM VAGINAE 0 [facility] ATOPOBIUM VAGINAE Not detected [facility] BVAB 2,3 (BACTERIAL VAGINOSIS ASSOCIATED BACTERIA 2, 3); MOBILUNCUS SPP 0 [facility] BVAB 2,3 (BACTERIAL VAGINOSIS ASSOCIATED BACTERIA 2, 3); MOBILUNCUS SPP Not detected [facility] HAMILTON ALBICANS, PARAPSILOSIS, TROPICALIS 0 [facility] HAMILTON ALBICANS, PARAPSILOSIS, TROPICALIS Not detected [facility] HAMILTON GLABRATA 0 [facility] HAMILTON GLABRATA Not detected [facility] HAMILTON KRUSEI 0 [facility] HAMILTON KRUSEI Not detected [facility] CHLAMYDIA TRACHOMATIS 0 [facility] CHLAMYDIA TRACHOMATIS Not detected N [facility] GARDNERELLA VAGINALIS 0 [facility] GARDNERELLA VAGINALIS Not detected N [facility] MEGASPHAERA (TYPES 1, 2) 0 [facility] MEGASPHAERA (TYPES 1, 2) Not detected [facility] MYCOPLASMA GENITALIUM 0 [facility] MYCOPLASMA GENITALIUM Not detected N [facility] NEISSERIA GONORRHOEAE 0 [facility] NEISSERIA GONORRHOEAE Not detected N [facility] TRICHOMONAS VAGINALIS 0 [facility] TRICHOMONAS VAGINALIS Not detected [facility] Urinalysis macro (dipstick) panel (U)on 12-10-2024 Bilirubin, UA Negative Negative - 4(70) +++ mg/dL [facility] Blood, UA Negative Negative - 50 Iraj/mcL [facility] Clarity, UA Clear [facility] Color, UA Yellow [facility] Glucose, UA Negative Negative - 1999(110) ++++ mg/dL [facility] Interpretation and review of laboratory results Normal [facility] Ketones, UA Negative Negative - 160(16) ++++ mg/dL [facility] Leukocytes, UA Trace Negative - 500+++ Mari/mcL [facility] Nitrite, UA Negative Negative - Positive [facility] pH, UA 6 5 - 9 [facility] Protein, UA Negative Negative - 1999(20) ++++ mg/dL [facility] Spec Grav, UA 1.01 1 - 1.03 [facility] Urobilinogen, UA 0.2 0.2 - 12 mg/dL [facility] Urinalysis macro (dipstick) panel (U)on 11-08-2024 Bilirubin, UA Negative Negative - 4(70) +++ mg/dL [facility] Blood, UA Negative Negative - 50 Iraj/mcL [facility] Clarity, UA Clear [facility] Color, UA Yellow [facility] Glucose, UA Negative Negative - 1999(110) ++++ mg/dL [facility] Interpretation and review of laboratory results Normal [facility] Ketones, UA Negative Negative - 160(16) ++++ mg/dL [facility] Leukocytes, UA Negative Negative - 500+++ Mari/mcL [facility] Nitrite, UA Negative Negative - Positive [facility] pH, UA 6 5 - 9 [facility] Protein, UA Negative Negative - 1999(20) ++++ mg/dL [facility] Spec Grav, UA 1.015 1 - 1.03 [facility] Urobilinogen, UA 0.2 0.2 - 12 mg/dL [facility] ALL CBC WITH AUTO DIFFon BASOPHILS ABSOLUTE AUTO 0 [facility] Basophils/100 WBC (Bld) 0.4 % 0.2 - 2.0 % [facility] Eosinophils/100 WBC (Bld) 1.2 % 0.9 - 7.0 % [facility] Erythrocyte distribution width (RBC) [Ratio] 12.4 % 11.0 - 15.0 % [facility] IMMATURE GRANULOCYTES ABS AUTO 0.02 [facility] Immature granulocytes/100 WBC (Bld) 0.2 % 0.0 - 0.5 % [facility] Interpretation and review of laboratory results Abnormal [facility] LYMPHOCYTES ABSOLUTE AUTO 2.2 [facility] Lymphocytes/100 WBC (Bld) 27.2 % 20.5 - 60.0 % [facility] MCH (RBC) [Entitic mass] 33.5 pg 26. 7 - 34.0 pg [facility] MCHC (RBC) [Mass/Vol] 35.3 g/dL High 29.9 - 35.2 g/dL [facility] MCV (RBC) [Entitic vol] 94.9 fL 81.0 - 99.0 fL [facility] MONOCYTES ABSOLUTE AUTO 0.4 N [facility] Monocytes/100 WBC (Bld) 4.9 % 1.7 - 12.0 % [facility] NEUTROPHILS ABSOLUTE AUTO 5.4 [facility] Neutrophils/100 WBC (Bld) 66.1 % 43.0 - 75.0 % [facility] Platelet mean volume (Bld) [Entitic vol] 11.2 fL 9.5 - 13.5 fL [facility] TBH EO # 0.1 [facility] TB PLT 169 [facility] RBC 3.55 Low [facility] TB WBC 8.2 [facility] CBC without diffon 5 Platelets (Bld) [#/Vol] 169 10*3/uL [facility] Rbc Mcv (Fl) By Automated Count 94.9 [facility] Drug Screen, Urineon 025 Amphetamine/Methamphetam ine Negative [facility] Barbiturates Negative [facility] Benzodiazepines Negative [facility] Cocaine Metabolite Negative [facility] Methadone Negative [facility] Opiates Negative [facility] Oxycodone Negative [facility] Phencyclidine Negative [facility] Thc Marijuana, Urine Negative [facility] Free Cell DNAon 2024 Free Cell Dna LOW RISK [facility] HBV surface Ag IA Qlon 10-19 Hepatitis B Surface Antigen Negative [facility] HCV Ab IA Qlon 10-19-2024 HCV Ab Ql (S) Non-Reactive [facility] HIV 1+2 Ab+HIV1 p24 Ag IA Ql on 10-19-2024 HIV 1&2 AB/AG Non-Reactive [facility] Hemoglobin A1con 10-19-2024 HbA1c (Bld) [Mass fraction] 5.1 % 4.0 - 6.0 % [facility] Laboratory - Hematology and Cell countson 10-19-2024 Hematocrit (Bld) [Volume fraction] 33.7 % [facility] Hemoglobin (Bld) [Mass/Vol] 11.9 g/dL [facility] No Panel Informationon 10-19 [facility] Rubella IGG immune statuson 10-19-2024 Rubella immune IgG IMMUNE [facility] T. pallidum IgG+IgM IA Ql (S )on 10-19-2024 Syphilis Non-Reactive [facility] Type and screenon 10-19-2024 Abo/Rh(D) Positive [facility] HCG ( test) Ql (U)o n 10-18-2024 Interpretation and review of laboratory results Abnormal [facility] Preg Test, Ur Positive Negative [facility] US OB TRANSVAGINALon 025 US OB [...] II, MD, PHD at 20-Oct-2024 07:21:51 AM [facility] Normal Not Available Comment on above: Order Comment: US OB TRANSVAGINAL No LMP recorded. Urinalysis macro (dipstick) panel (U)on 10-18-2024 Bilirubin, UA Negative Negative - 4(70) +++ mg/dL [facility] Blood, UA Negative Negative - 50 Iarj/mcL [facility] Clarity, UA Clear [facility] Color, UA Yellow [facility] Glucose, UA Negative Negative - 1999(110) ++++ mg/dL [facility] Interpretation and review of laboratory results Normal [facility] Ketones, UA Negative Negative - 160(16) ++++ mg/dL [facility] Leukocytes, UA Negative Negative - 500+++ Mari/mcL [facility] Nitrite, UA Negative Negative - Positive [facility] pH, UA 6 5 - 9 [facility] Protein, UA Negative Negative - 1999(20) ++++ mg/dL [facility] Spec Grav, UA 1.01 1 - 1.03 [facility] Urobilinogen, UA 1.0 0.2 - 12 mg/dL [facility] CNOVon 06-29-2024 CNOV Office Visit (INMAVN) CARYL ZAMARRIPA ([id number]) 1990 F Date Time Provider Department 06/29/24 12:40 PM BERENICE ZEPEDA IN[facility] During your visit today, we recorded the following information about you: Pulse Blood pressure Weight 65/minute 101/68 75.8 kg Berenice Zepeda APRN.SPORTS THERAPIST 06/29/2024 1:25 PM Signed Caryl Zamarripa is [...] - PHENTERMINE 37.5 MG TABLET Berenice Zepeda APRN.SPORTS THERAPIST Allergies As of Date: 06/29/2024 (No Known [...] days. BMI 29.58kg/m2 - Omeprazole Magnesium ([employer], OMEPRAZOLE,) 20 mg cpDR Problem List As Of Date: 06/29/2024 (None) Prescriptions ordered this encounter Disp Refills Start End PHENTERMINE 37.5 MG TABLET 30 t* 0 06/29/2024 07/29/2024 Route: ORAL Sig: Take 1 tablet by mouth once daily for 30 days. BMI 29.58kg/m2 Encounter Status:Closed by BERENICE ZEPEDA on 06/29/24 [facility] CNOVon 08-23-2023 CNOV Office Visit (INMAVN) CARYL ZAMARRIPA ([id number]) 1990 F Date Time Provider Department 08/23/23 4:00 PM [facility] During your visit today, we recorded the following information about you: Pulse Blood pressure Weight Last Period 54/minute 121/77 77.6 kg 08/08/23 Berenice Zepeda, SLURRY MIXER.SPORTS THERAPIST 08/25/2023 12:23 PM Signed Caryl Zamarripa is [...] - PHENTERMINE 37.5 MG TABLET Berenice Zepeda APRN.SPORTS THERAPIST Allergies As of Date: 08/23/2023 (No Known [...] for 2 days. - Omeprazole Magnesium ([employer], OMEPRAZOLE,) 20 mg cpDR Problem List As [...] Status:Closed by BERENICE ZEPEDA on 08/25/23 Normal [facility] CBC W Auto Differential pane l (Bld)on 07-26-2023 Basophils (Bld) [#/Vol] 0.03 10*3/uL Normal <0.11 [facility] Comment on above: Order Comment: Speci men Type: BLOOD SPECIMEN Ordering Facility: [facility] Address: [address] [place] [address] Performed By: #### 5 7021-8 #### [facility] CLIA [id number] [address] [place] [address] Basophils/100 WBC (Bld) 0.6 % Normal C [facility] Comment on above: Order Comment: Speci men Type: BLOOD SPECIMEN Ordering Facility: [facility] Address: [address] [place] [address] Performed By: #### 5 7021-8 #### [facility] CLIA [id number] [address] [place] [address] Differential cell count method Nom (Bld) Auto Normal [facility] Comment on above: Order Comment: Speci men Type: BLOOD SPECIMEN Ordering Facility: [facility] Address: [address] [place] [address] Performed By: #### 5 7021-8 #### [facility] CLIA [id number] [address] [place] [address] Eosinophils (Bld) [#/Vol] 0.13 10*3/uL Normal <0.46 [facility] Comment on above: Order Comment: Speci men Type: BLOOD SPECIMEN Ordering Facility: [facility] Address: [address] [place] [address] Performed By: #### 5 7021-8 #### [facility] CLIA [id number] [address] [place] [address] Eosinophils/100 WBC (Bld) 2.6 % Normal [facility] Comment on above: Order Comment: Speci men Type: BLOOD SPECIMEN Ordering Facility: [facility] Address: [address] [place] [address] Performed By: #### 5 7021-8 #### [facility] CLIA [id number] [address] [place] [address] Erythrocyte distribution width (RBC) [Ratio] 12.1 % Normal 11.5-15.0 [facility] Comment on above: Order Comment: Speci men Type: BLOOD SPECIMEN Ordering Facility: [facility] Address: [address] [place] [address] Performed By: #### 5 7021-8 #### [facility] CLIA [id number] [address] [place] [address] Hematocrit (Bld) [Volume fraction] 37.0 % Normal 36.0-46.0 [facility] Comment on above: Order Comment: Speci men Type: BLOOD SPECIMEN Ordering Facility: [facility] Address: [address] [place] [address] Performed By: #### 5 7021-8 #### [facility] CLIA [id number] [address] [place] [address] Hemoglobin (Bld) [Mass/Vol] 12.6 g/dL Normal 11.5-15.5 [facility] Comment on above: Order Comment: Speci men Type: BLOOD SPECIMEN Ordering Facility: [facility] Address: [address] [place] [address] Performed By: #### 5 7021-8 #### [facility] CLIA [id number] [address] [place] [address] Immature granulocytes (Bld) [#/Vol] 10*3/uL Normal <0.10 [facility] Comment on above: Order Comment: Speci men Type: BLOOD SPECIMEN Ordering Facility: [facility] Address: [address] [place] [address] Performed By: #### 5 7021-8 #### [facility] CLIA [id number] [address] [place] [address] Immature granulocytes/100 WBC (Bld) 0.2 % Normal [facility] Comment on above: Order Comment: Speci men Type: BLOOD SPECIMEN Ordering Facility: [facility] Address: [address] [place] [address] Performed By: #### 5 7021-8 #### [facility] CLIA [id number] [address] [place] [address] Lymphocytes (Bld) [#/Vol] 1.57 10*3/uL Normal 1.00-4.00 [facility] Comment on above: Order Comment: Speci men Type: BLOOD SPECIMEN Ordering Facility: [facility] Address: [address] [place] [address] Performed By: #### 5 7021-8 #### [facility] CLIA [id number] [address] [place] [address] Lymphocytes/100 WBC (Bld) 31.2 % Normal [facility] Comment on above: Order Comment: Speci men Type: BLOOD SPECIMEN Ordering Facility: [facility] Address: [address] [place] [address] Performed By: #### 5 7021-8 #### [facility] CLIA [id number] [address] [place] [address]46 MCH (RBC) [Entitic mass] 32.2 pg Normal 26.0-34.0 [facility] Comment on above: Order Comment: Speci men Type: BLOOD SPECIMEN Ordering Facility: [facility] Address: [address] [place] [address] Performed By: #### 5 7021-8 #### [facility] LAB CLIA [id number] [address] [place] [address] 06808 MCHC (RBC) [Mass/Vol] 34.1 g/dL Normal 30.5-36.0 [facility] Comment on above: Order Comment: Speci men Type: BLOOD SPECIMEN Ordering Facility: [facility] Address: [address] [place] [address] Performed By: #### 5 7021-8 #### [facility] CLIA [id number] [address] [place] [address] 33942 MCV (RBC) [Entitic vol] 94.6 fL Normal 80.0-100.[address] [facility] Comment on above: Order Comment: Speci men Type: BLOOD SPECIMEN Ordering Facility: [facility] Address: [address] [place] [address] Performed By: #### 5 7021-8 #### [facility] CLIA [id number] [address] [place] [address] 50461 Monocytes (Bld) [#/Vol] 0.32 10*3/uL Normal <0.87 [facility] Comment on above: Order Comment: Speci men Type: BLOOD SPECIMEN Ordering Facility: [facility] Address: [address] [place] [address] Performed By: #### 5 7021-8 #### [facility] CLIA [id number] [address] [place] [address] 27826 Monocytes/100 WBC (Bld) 6.3 % Normal C [facility] Comment on above: Order Comment: Speci men Type: BLOOD SPECIMEN Ordering Facility: [facility] Address: [address] [place] [address] Performed By: #### 5 7021-8 #### [facility] CLIA [id number] [address] [place] [address] 95348 Neutrophils (Bld) [#/Vol] 2.98 10*3/uL Normal 1.45-7.50 [facility] Comment on above: Order Comment: Speci men Type: BLOOD SPECIMEN Ordering Facility: [facility] Address: [address] [place] [address] Performed By: #### 5 7021-8 #### [facility] CLIA [id number] [address] [place] [address] 61200 Neutrophils/100 WBC (Bld) 59.1 % Normal [facility] Comment on above: Order Comment: Speci men Type: BLOOD SPECIMEN Ordering Facility: [facility] Address: [address] [place] [address] Performed By: #### 5 7021-8 #### [facility] CLIA [id number] [address] [place] [address] 07388 Nucleated RBC (Bld) [#/Vol] 10*3/uL Normal <0.01 [facility] Comment on above: Order Comment: Speci men Type: BLOOD SPECIMEN Ordering Facility: [facility] Address: [address] [place] [address] Performed By: #### 5 7021-8 #### [facility] CLIA [id number] [address] [place] [address] 14453 Nucleated RBC/100 WBC (Bld) [Ratio] 0.0 /100 WBC Normal [facility] Comment on above: Order Comment: Speci men Type: BLOOD SPECIMEN Ordering Facility: [facility] Address: [address] [place] [address] Performed By: #### 5 7021-8 #### [facility] CLIA [id number] [address] [place] [address] 11205 Platelet mean volume (Bld) [Entitic vol] 10.6 fL Normal 9.0-12.7 [facility] Comment on above: Order Comment: Speci men Type: BLOOD SPECIMEN Ordering Facility: [facility] Address: [address] [place] [address] Performed By: #### 5 7021-8 #### [facility] CLIA [id number] [address] [place] [address] Platelets (Bld) [#/Vol] 226 10*3/uL Normal 150-400 [facility] Comment on above: Order Comment: Speci men Type: BLOOD SPECIMEN Ordering Facility: [facility] Address: [address] [place] [address] Performed By: #### 5 7021-8 #### [facility] CLIA [id number] [address] [place] [address] 94131 RBC (Bld) [#/Vol] 3.91 10*6/uL Normal 3.90-5.20 [facility] Comment on above: Order Comment: Speci men Type: BLOOD SPECIMEN Ordering Facility: [facility] Address: [address] [place] [address] Performed By: #### 5 7021-8 #### [facility] CLIA [id number] [address] [place] [address] 97150 WBC (Bld) [#/Vol] 5.04 10*3/uL Normal 3.70-11.00 [facility] Comment on above: Order Comment: Speci men Type: BLOOD SPECIMEN Ordering Facility: [facility] Address: [address] [place] [address] Performed By: #### 5 7021-8 #### [facility] CLIA [id number] [address] [place] [address] 46897 Comprehensive metabolic 2000 panelon 07-26-2023 Albumin [Mass/Vol] 4.4 g/dL Normal 3.9-4.9 [facility] Comment on above: Order Comment: Speci men Type: BLOOD SPECIMEN Ordering Facility: [facility] Address: [address] [place] [address] Performed By: #### 2 4323-8 #### [facility] CLIA [id number] [address] [place] [address] 51503 ALP [Catalytic activity/Vol] 40 U/L Normal 34-123 [facility] Comment on above: Order Comment: Speci men Type: BLOOD SPECIMEN Ordering Facility: [facility] Address: [address] [place] [address] Performed By: #### 2 4323-8 #### [facility] CLIA [id number] [address] [place] [address] ALT [Catalytic activity/Vol] 5 U/L Low 7-38 [facility] Comment on above: Order Comment: Speci men Type: BLOOD SPECIMEN Ordering Facility: [facility] Address: [address] [place] [address] Performed By: #### 2 4323-8 #### [facility] CLIA [id number] [address] [place] [address] 77969 Anion gap [Moles/Vol] 8 mmol/L Low 9-18 [facility] Comment on above: Order Comment: Speci men Type: BLOOD SPECIMEN Ordering Facility: [facility] Address: [address] [place] [address] Performed By: #### 2 4323-8 #### [facility] CLIA [id number] [address] [place] [address] 74232 AST [Catalytic activity/Vol] 7 U/L Low 13-35 [facility] Comment on above: Order Comment: Speci men Type: BLOOD SPECIMEN Ordering Facility: [facility] Address: [address] [place] [address] Performed By: #### 2 4323-8 #### [facility] CLIA [id number] [address] [place] [address] 23421 Bilirubin [Mass/Vol] 0.6 mg/dL Normal 0.2-1.3 [facility] Comment on above: Order Comment: Speci men Type: BLOOD SPECIMEN Ordering Facility: [facility] Address: [address] [place] [address] Performed By: #### 2 4323-8 #### [facility] CLIA [id number] [address] [place] [address] 87755 Calcium [Mass/Vol] 9.5 mg/dL Normal 8.5-10.2 [facility] Comment on above: Order Comment: Speci men Type: BLOOD SPECIMEN Ordering Facility: [facility] Address: [address] [place] [address] Performed By: #### 2 4323-8 #### [facility] CLIA [id number] [address] [place] [address] 85090 Chloride [Moles/Vol] 105 mmol/L Normal 97-105 [facility] Comment on above: Order Comment: Speci men Type: BLOOD SPECIMEN Ordering Facility: [facility] Address: [address] [place] [address] Performed By: #### 2 4323-8 #### [facility] CLIA [id number] [address] [place] [address] 35380 CO2 [Moles/Vol] 27 mmol/L Normal 22-30 [facility] Comment on above: Order Comment: Speci men Type: BLOOD SPECIMEN Ordering Facility: [facility] Address: [address] [place] [address] Performed By: #### 2 4323-8 #### [facility] CLIA [id number] [address] [place] [address] 35231 Creatinine [Mass/Vol] 0.76 mg/dL Normal 0.58-0.96 [facility] Comment on above: Order Comment: Speci men Type: BLOOD SPECIMEN Ordering Facility: [facility] Address: [address] [place] [address] Performed By: #### 2 4323-8 #### [facility] CLIA [id number] [address] [place] [address] 36632 Creatinine and Glomerular filtration rate.predicted panel (S/P/Bld) 108 mL/min/1.73m??? Normal >=60 [facility] Comment on above: Order Comment: Speci men Type: BLOOD SPECIMEN Ordering Facility: [facility] Address: [address] [place] [address] Result Comment: Erma mated Glomerular Filtration Rate [...] GFR. Performed By: #### 2 4323-8 #### [facility] CLIA [id number] [address] [place] [address] 75178 Glucose [Mass/Vol] 93 mg/dL Normal 74-99 [facility] Comment on above: Order Comment: Speci men Type: BLOOD SPECIMEN Ordering Facility: [facility] Address: [address] [place] [address] Result Comment: The [place] Diabetes Association (ADA) provides guidance for cutoff [...] Standards of Medical Care in Diabetes 2016, [place] Diabetes Association. Diabetes Care. 2016.39(Suppl 1). Performed By: #### 2 4323-8 #### [facility] CLIA [id number] [address] [place] [address] 75013 Potassium [Moles/Vol] 4.2 mmol/L Normal 3.7-5.1 [facility] Comment on above: Order Comment: Speci men Type: BLOOD SPECIMEN Ordering Facility: [facility] Address: [address] [place] [address] Performed By: #### 2 4323-8 #### [facility] CLIA [id number] [address] [place] [address] 88246 Protein [Mass/Vol] 7.2 g/dL Normal 6.3-8.0 [facility] Comment on above: Order Comment: Speci men Type: BLOOD SPECIMEN Ordering Facility: [facility] Address: [address] [place] [address] Performed By: #### 2 4323-8 #### [facility] CLIA [id number] [address] [place] [address] 52938 Sodium [Moles/Vol] 140 mmol/L Normal 136-144 [facility] Comment on above: Order Comment: Speci men Type: BLOOD SPECIMEN Ordering Facility: [facility] Address: [address] [place] [address] Performed By: #### 2 4323-8 #### [facility] CLIA [id number] [address] [place] [address] 64301 Urea nitrogen [Mass/Vol] 11 mg/dL Normal 7-21 [facility] Comment on above: Order Comment: Speci men Type: BLOOD SPECIMEN Ordering Facility: [facility] Address: [address] [place] [address] Performed By: #### 2 4323-8 #### [facility] CLIA [id number] [address] [place] [address] 30512 HBV surface Ab Ql (S)on HBV surface Ab Qn (S) <8.00 Normal [facility] Comment on above: Order Comment: Speci men Type: BLOOD SPECIMEN Ordering Facility: [facility] Address: [address] [place] [address] Result Comment: <8 m IU/mL: No serological evidence of immunity to Hepatitis B Virus. >/= 8 to <12 mIU/mL: No serological evidence of immunity to Hepatitis B Virus. >/= 12 mIU/mL: Consistent with serological evidence of immunity to Hepatitis B Virus. Performed By: #### 2 2322-2 #### [facility] CLIA [id number] [address] [facility] [id number] [address] [place] HBV surface Ab Ser Qlon HBV surface Ab Ql (S) Negative Normal [facility] Comment on above: Order Comment: Speci men Type: BLOOD SPECIMEN Ordering Facility: [facility] Address: [address] [place] [address] Result Comment: No s erological evidence of immunity to Hepatitis B Virus. Performed By: #### 2 2322-2 #### [facility] CLIA [id number] [facility] [address] [place] HbA1c (Bld)on 07-26-2023 Average glucose Estimated from glycated hemoglobin (Bld) [Mass/Vol] 94 mg/dL Normal [facility] Comment on above: Order Comment: Specjocelyne head Type: BLOOD SPECIMEN Ordering Facility: [facility] Address: [address] [place] [address] Result Comment: eAG: (Estimated average glucose) is a calculated value from HgbA1c and is marketing representative of the average blood glucose level in the last 2-3 month period. Performed By: #### 5 5454-3 #### [facility] CLIA [id number] [address] [place] [address] [place] HbA1c (Bld) [Mass fraction] 4.9 % Normal 4.3-5.6 [facility] Comment on above: Order Comment: Mary head Type: BLOOD SPECIMEN Ordering Facility: [facility] Address: [address] [place] [address] Result Comment: Amer [place] Diabetes Association guidelines indicate that patients with HgbA1c in the range 5.7-6.4% are at increased risk for development of diabetes, and intervention by lifestyle modification may be beneficial. HgbA1c greater or equal to 6.5% is considered diagnostic of diabetes. Performed By: #### 5 5454-3 #### [facility] CLIA [id number] [facility] [place] [address] [place] Lipid 1996 panelon 3 Cholesterol [Mass/Vol] 172 mg/dL Normal <200 [facility] Comment on above: Order Comment: Mary head Type: BLOOD SPECIMEN Ordering Facility: [facility] Address: [address] [place] [address] Result Comment: <200 mg/dL, Desirable 200-239 mg/dL, Borderline high >239 mg/dL, High Performed By: #### 2 4331-1 #### [facility] CLIA [id number] [address] LAB CLIA [id number] [address] [place] [address] 87180 Cholesterol in HDL [Mass/Vol] 58 mg/dL Normal >39 [facility] Comment on above: Order Comment: Speci men Type: BLOOD SPECIMEN Ordering Facility: [facility] Address: [address] [place] [address] Result Comment: 40-5 9 mg/dL, Acceptable >59 mg/dL, High: Negative risk factor for coronary heart disease <40 mg/dL, Low: Positive risk factor for coronary heart disease Performed By: #### 2 4331-1 #### [facility] CLIA [id number] [address] LAB CLIA [id number] [address] [place] [address] 25487 Cholesterol in LDL [Mass/Vol] 103 mg/dL High <100 [facility] Comment on above: Order Comment: Micki men Type: BLOOD SPECIMEN Ordering Facility: [facility] Address: [address] [place] [address] Result Comment: <100 mg/dL, Optimal 100-129 mg/dL, Near optimal/above optimal 130-159 mg/dL, Borderline high 160-189 mg/dL, High >189 mg/dL, Very high Secondary prevention optimal LDL Cholesterol levels are recommended to be < 70 mg/dL Performed By: #### 2 4331-1 #### [facility] CLIA [id number] [address] LAB CLIA [id number] [address] [place] [address] 96632 Cholesterol in LDL/Cholesterol in HDL [Mass ratio] 1.78 {ratio} Normal <2.54 [facility] Comment on above: Order Comment: Micki men Type: BLOOD SPECIMEN Ordering Facility: [facility] Address: [address] [place] [address] Result Comment: Elkin horta: 1. National Cholesterol Education Program ATP III Guideline At-A-Glance Quick Desk Reference: National Heart, Lung, and Blood [place]. National Institutes of Health. 2001: NIH Publication No. 01-3305. 2. An International Atherosclerosis Society position paper: global recommendations for the management of dyslipidemia: executive summary, Atherosclerosis. 2014: 232(2):410-413. Performed By: #### 2 4331-1 #### [facility] CLIA [id number] [address] LAB CLIA [id number] [address] [place] [address] 99210 Cholesterol in VLDL [Mass/Vol] 11 mg/dL Normal <30 [facility] Comment on above: Order Comment: Mary head Type: BLOOD SPECIMEN Ordering Facility: [facility] Address: [address] [place] [address] Performed By: #### 2 4331-1 #### [facility] CLIA [id number] [address] LAB CLIA [id number] [address] [place] [address] 04221 Cholesterol non HDL [Mass/Vol] 114 mg/dL Normal <130 [facility] Comment on above: Order Comment: Mary head Type: BLOOD SPECIMEN Ordering Facility: [facility] Address: [address] [place] [address] Result Comment: <130 mg/dL, Optimal 130-159 mg/dL, Near optimal/above optimal 160-189 mg/dL, Borderline high 190-219 mg/dL, High >219 mg/dL, Very high Secondary prevention optimal non HDL Cholesterol levels are recommended to be <100 mg/dL Performed By: #### 2 4331-1 #### [facility] CLIA [id number] [address] LAB CLIA [id number] [address] [place] [address] Cholesterol.total/Choles terol in HDL [Mass ratio] 2.97 {ratio} Normal <5.10 [facility] Comment on above: Order Comment: Speci men Type: BLOOD SPECIMEN Ordering Facility: [facility] Address: [address] [place] [address] Performed By: #### 2 4331-1 #### [facility] CLIA [id number] [address] [place] [address] LAB CLIA [id number] [address] [place] [address] FASTING TIME 12 hrs Normal [facility] Comment on above: Order Comment: Speci men Type: BLOOD SPECIMEN Ordering Facility: [facility] Address: [address] [place] [address] Performed By: #### 2 4331-1 #### [facility] CLIA [id number] [address] [place] [address] LAB CLIA [id number] [address] [place] [address] Triglyceride [Mass/Vol] 53 mg/dL Normal <150 C [facility] Comment on above: Order Comment: Speci men Type: BLOOD SPECIMEN Ordering Facility: [facility] Address: [address] [place] [address] Result Comment: <150 mg/dL, Normal 150-199 mg/dL, Borderline high 200-499 mg/dL, High >499 mg/dL, Very high Performed By: #### 2 4331-1 #### [facility] CLIA [id number] [address] [place] [address] LAB CLIA [id number] [address] [place], [place] [address] CNOVon 07-21-2023 CNOV Office Visit (INMAVN) CARYL ZAMARRIPA ([id number]) 1990 F Date Time Provider Department 07/21/23 4:20 PM [facility] During your visit today, we recorded the following information about you: Pulse Blood pressure Weight Height 60/minute 112/74 80.1 kg 1.612 m Last Period 07/09/23 Berenice Zepeda APRN.SPORTS THERAPIST 07/22/2023 10:16 AM Signed Caryl Pascual Radha is a 32 year old female here today for review of established medical problems as well as comprehensive physical examination. 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 MEDICATIONS Omeprazole Magnesium ([employer]ER [employer], OMEPRAZOLE,) 20 mg cpDR Phentermine HCl 37.5 [...] No history of dysuria, frequency or incontinence FIRE MANAGER: Negative for abnormal vaginal bleeding, abnormal [...] and symmetric. Sensation grossly intact. Breast/Pelvic: Per FIRE MANAGER ASSESSMENT/PLAN: 1. Routine adult health maintenance - ICD9: V70.0, ICD10: Z00.00 (primary diagnosis) - Counseled on healthy diet and regular exercise - Calcium intake with supplements or by diet of 1000 mg/day for under 50, 6526-5210 mg/day for 50+ - Discussed need and benefit for weight loss. BMI 30.81 kg/(m2) - HGB A1C - COMP METABOLIC PANEL - LIPID PANEL BASIC - CBC + DIFF 2. IFG (impaired fasting glucose) - ICD9: 790.21, ICD10: (more content not included)... Normal [facility] Basophils Auto (Bld) [#/Vol] Ordered By: Reena Breaux on 10-11-2022 Basophils (Bld) [#/Vol] 0.0 10*3/uL 0.0-0.2 [facility] Basophils/100 WBC Auto (Bld) Ordered By: Reena Breaux on 10-11-2022 Basophils/100 WBC (Bld) 0.7 % . F [facility] Body fluid albumin measureme nt (mass/volume)Ordered By: Reena Breaux on 10-11-2022 Albumin (Body fld) [Mass/Vol] 4.0 g/dL 3.2-5.[address] [facility] [address] biopsyOrdered By: Reena malhotra on 10-11-2022 Transferrin [Mass/Vol] 206 mg/dL 180-380 [facility] Complete Blood Count Auto Di ffon 10-11-2022 Basophils (Bld) [#/Vol] 0.0 10*3/uL Normal 0.0-0.2 [facility] Comment on above: Result Comment: PERF ORMED BY: [facility] [address] [place] [address] PATHOLOGIST FORGING MACHINE OPERATOR AMANDA CALLE M.D. Performed By: #### P HOS, [id number], CMP, CBC, [id number], FE PRO, MG #### [facility] [address] [place] [address] [place] #### VITB1 #### [facility] , Basophils/100 WBC (Bld) 0.7 % Normal . [facility] Comment on above: Performed By: #### P HOS, [id number], CMP, CBC, [id number], FE PRO, MG #### [facility] [address] [place] [address] #### VITB1 #### [facility] , Eosinophils (Bld) [#/Vol] 0.1 10*3/uL Normal 0.0-0.45 [facility] Comment on above: Performed By: #### P HOS, [id number], CMP, CBC, [id number], FE PRO, MG #### [facility] [address] [place] [address] #### VITB1 #### [facility] , Eosinophils/100 WBC (Bld) 1.7 % Normal . [facility] Comment on above: Performed By: #### P HOS, [id number], CMP, CBC, [id number], FE PRO, MG #### [facility] [address] [place] [address] #### VITB1 #### [facility] , Erythrocyte distribution width (RBC) [Ratio] 12.9 % Normal 11.9-15.3 [facility] Comment on above: Performed By: #### P HOS, [id number], CMP, CBC, [id number], FE PRO, MG #### [facility] [address] [place] [address] [place] #### VITB1 #### [facility] , Hematocrit (Bld) [Volume fraction] 39.1 % Normal 34.0-46.4 [facility] Comment on above: Performed By: #### P HOS, [id number], CMP, CBC, [id number], FE PRO, MG #### [facility] [address] [place] [address] [place] #### VITB1 #### [facility] , Hemoglobin (Bld) [Mass/Vol] 13.1 g/dL Normal 11.8-15.4 [facility] Comment on above: Performed By: #### P HOS, [id number], CMP, CBC, [id number], FE PRO, MG #### [address] #### VITB1 #### [facility] , Lymphocytes (Bld) [#/Vol] 2.7 10*3/uL Normal 1.00-4.8 [facility] Comment on above: Performed By: #### P HOS, [id number], CMP, CBC, [id number], FE PRO, MG #### [facility] [address] [place] [address] #### VITB1 #### [facility] , Lymphocytes/100 WBC (Bld) 39.8 % Normal . [facility] Comment on above: Performed By: #### P HOS, [id number], CMP, CBC, [id number], FE PRO, MG #### [address] #### VITB1 #### [facility] , MCH (RBC) [Entitic mass] 31.9 pg Normal 24.7-34.3 [facility] Comment on above: Performed By: #### P HOS, [id number], CMP, CBC, [id number], FE PRO, MG #### [facility] [address] [place] [address] [place] #### VITB1 #### [facility] , MCV (RBC) [Entitic vol] 95.3 fL Normal 80-100 F [facility] Comment on above: Performed By: #### P HOS, [id number], CMP, CBC, [id number], FE PRO, MG #### [facility] [address] [place] [address] [place] #### VITB1 #### [facility] , Mean Corpuscular HGB Conc 33.5 g/dL Normal 32.0-35.0 [facility] Comment on above: Performed By: #### P HOS, [id number], CMP, CBC, [id number], FE PRO, MG #### [facility] [address] [place] [address] #### VITB1 #### [facility] , Monocytes (Bld) [#/Vol] 0.3 10*3/uL Normal 0.0-0.8 [facility] Comment on above: Performed By: #### P HOS, [id number], CMP, CBC, [id number], FE PRO, MG #### [facility] [address] [place] [address] #### VITB1 #### [facility] , Monocytes/100 WBC (Bld) 5.1 % Normal . [facility] Comment on above: Performed By: #### P HOS, [id number], CMP, CBC, [id number], FE PRO, MG #### [facility] [address] [place] [address] #### VITB1 #### [facility] , Neutrophils (Bld) [#/Vol] 3.6 10*3/uL Normal 1.8-7.7 [facility] Comment on above: Performed By: #### P HOS, [id number], CMP, CBC, [id number], FE PRO, MG #### [facility] [address] [place] [address] [place] #### VITB1 #### [facility] , Neutrophils/100 WBC (Bld) 52.7 % Normal . [facility] Comment on above: Performed By: #### P HOS, [id number], CMP, CBC, [id number], FE PRO, MG #### [facility] [address] [place] [address] [place] #### VITB1 #### [facility] , NRBC% 0.0 /100{WBC} Normal 0-0.5 [facility] Comment on above: Performed By: #### P HOS, [id number], CMP, CBC, [id number], FE PRO, MG #### [facility] [address] [place] [address] #### VITB1 #### [facility] , Platelet mean volume (Bld) [Entitic vol] 9.8 fL Normal 6.3-10.7 [facility] Comment on above: Performed By: #### P HOS, [id number], CMP, CBC, [id number], FE PRO, MG #### [facility] [address] [place] [address] #### VITB1 #### [facility] , Platelets (Bld) [#/Vol] 226 10*3/uL Normal 150-450 [facility] Comment on above: Performed By: #### P HOS, [id number], CMP, CBC, [id number], FE PRO, MG #### [facility] [address] [place] [address] #### VITB1 #### [facility] , RBC (Bld) [#/Vol] 4.11 10*6/uL Normal 3.60-5.00 [facility] Comment on above: Performed By: #### P HOS, [id number], CMP, CBC, [id number], FE PRO, MG #### [facility] [address] [place] [address] [place] #### VITB1 #### [facility] , WBC (Bld) [#/Vol] 6.8 10*3/uL Normal 3.8-11.6 [facility] Comment on above: Performed By: #### P HOS, [id number], CMP, CBC, [id number], FE PRO, MG #### [facility] [address] [place] [address] [place] #### VITB1 #### [facility] , Comprehensive Metabolic Pane nicole 10-11-2022 Albumin [Mass/Vol] 4.0 g/dL Normal 3.2-5.5 [facility] Comment on above: Performed By: #### P HOS, [id number], CMP, CBC, [id number], FE PRO, MG #### [facility] [address] [place] [address] #### VITB1 #### [facility] , Albumin/Globulin [Mass ratio] 1.4 {ratio} Normal [facility] Comment on above: Performed By: #### P HOS, [id number], CMP, CBC, [id number], FE PRO, MG #### [facility] [address] [place] [address] #### VITB1 #### [facility] , ALP [Catalytic activity/Vol] 36 U/L Normal 32-92 [facility] Comment on above: Performed By: #### P HOS, [id number], CMP, CBC, [id number], FE PRO, MG #### [facility] [address] [place] [address] #### VITB1 #### [facility] , ALT [Catalytic activity/Vol] 12 U/L Normal 10-60 [facility] Comment on above: Performed By: #### P HOS, [id number], CMP, CBC, [id number], FE PRO, MG #### [facility] [address] [place] [address] [place] #### VITB1 #### [facility] , Anion gap [Moles/Vol] 11.6 mmol/L Normal 6.0-15.0 [facility] Comment on above: Performed By: #### P HOS, [id number], CMP, CBC, [id number], FE PRO, MG #### [facility] [address] [place] [address] [place] #### VITB1 #### [facility] , AST [Catalytic activity/Vol] 11 U/L Normal 10-42 [facility] Comment on above: Performed By: #### P HOS, [id number], CMP, CBC, [id number], FE PRO, MG #### [facility] [address] [place] [address] #### VITB1 #### [facility] , Bilirubin [Mass/Vol] 0.3 mg/dL Normal 0.3-1.2 [facility] Comment on above: Performed By: #### P HOS, [id number], CMP, CBC, [id number], FE PRO, MG #### [facility] [address] [place] [address] #### VITB1 #### [facility] , Calcium [Mass/Vol] 9.3 mg/dL Normal 8.2-10.2 [facility] Comment on above: Performed By: #### P HOS, [id number], CMP, CBC, [id number], FE PRO, MG #### [facility] [address] [place] [address] #### VITB1 #### [facility] , Chloride [Moles/Vol] 103 mmol/L Normal 95-114 [facility] Comment on above: Performed By: #### P HOS, [id number], CMP, CBC, [id number], FE PRO, MG #### [facility] [address] [place] [address] [place] #### VITB1 #### [facility] , CO2 [Moles/Vol] 26.4 mmol/L Normal 22.0-30.0 [facility] Comment on above: Performed By: #### P HOS, [id number], CMP, CBC, [id number], FE PRO, MG #### [facility] [address] [place] [address] [place] #### VITB1 #### [facility] , Creatinine [Mass/Vol] 0.70 mg/dL Normal 0.44-1.03 [facility] Comment on above: Performed By: #### P HOS, [id number], CMP, CBC, [id number], FE PRO, MG #### [facility] [address] [place] [address] [place] #### VITB1 #### [facility] , Estimated GFR ( Christiano > 60 [facility] Comment on above: Result Comment: GFR estimated reference range: According to KDOQI guidelines, <60 ml/min/1.73m2 is sufficient to diagnose a patient with chronic kidney disease. Performed By: #### P HOS, [id number], CMP, CBC, [id number], FE PRO, MG #### [facility] [address] [place] [address] #### VITB1 #### [facility] , Estimated GFR (Non- Am > 60 [facility] Comment on above: Performed By: #### P HOS, [id number], CMP, CBC, [id number], FE PRO, MG #### [facility] [address] [place] [address] [place] #### VITB1 #### [facility] , Globulin (S) [Mass/Vol] 2.8 g/dL Normal [facility] Comment on above: Performed By: #### P HOS, [id number], CMP, CBC, [id number], FE PRO, MG #### [facility] [address] [place] [address] [place] #### VITB1 #### [facility] , Glucose [Mass/Vol] 85 mg/dL Normal 70-100 [facility] Comment on above: Result Comment: [place] Glucose Reference Range is dependent on time and content of last meal. Glucose of more than 200 mg/dL in a nonstressed, ambulatory subject supports the diagnosis of Diabetes Mellitus. ADA recommended reference range Performed By: #### P HOS, [id number], CMP, CBC, [id number], FE PRO, MG #### [facility] [address] [place] [address] [place] #### VITB1 #### [facility] , Potassium [Moles/Vol] 4.0 mmol/L Normal 3.5-5.1 [facility] Comment on above: Performed By: #### P HOS, [id number], CMP, CBC, [id number], FE PRO, MG #### [facility] [address] [place] [address] [place] #### VITB1 #### [facility] , Protein [Mass/Vol] 6.8 g/dL Normal 6.1-7.9 [facility] Comment on above: Performed By: #### P HOS, [id number], CMP, CBC, [id number], FE PRO, MG #### [facility] [address] [place] [address] [place] #### VITB1 #### [facility] , Sodium [Moles/Vol] 137 mmol/L Normal 136-146 [facility] Comment on above: Performed By: #### P HOS, [id number], CMP, CBC, [id number], FE PRO, MG #### [facility] [address] [place] [address] [place] #### VITB1 #### [facility] , Urea nitrogen [Mass/Vol] 11 mg/dL Normal 9-23 [facility] Comment on above: Performed By: #### P HOS, [id number], CMP, CBC, [id number], FE PRO, MG #### [facility] [address] [place] [address] [place] #### VITB1 #### [facility] , Creatinine and Glomerular fi ltration rate.predicted panel (S/P/Bld)Ordered By: Reena Breaux on 10-11-2022 Creatinine [Mass/Vol] 0.70 mg/dL 0.44-1.03 [facility] Eosinophils Auto (Bld) [#/Vo l]Ordered By: Reena Breaux on 10-11-2022 Eosinophils (Bld) [#/Vol] 0.1 10*3/uL 0.0-0.45 [facility] Eosinophils/100 WBC Auto (Bl d)Ordered By: Reena Breaux on 10-11-2022 Eosinophils/100 WBC (Bld) 1.7 % . [facility] Erythrocyte distribution wid th Auto (RBC) [Ratio]Ordered By: Reena Breaux on 10-11-2022 Erythrocyte distribution width (RBC) [Ratio] 12.9 % 11.9-15.3 [facility] Estimated glomerular filtrat ion rate (GFR) non- AmericanOrdered By: Reena Breaux on 10-11-2022 GFR/1.73 sq M.predicted among non-blacks MDRD (S/P/Bld) [Vol rate/Area] > 60 mL/Min [facility] FE PROon 10-11-2022 % Iron Saturation 24.0 % Normal 20-50 [facility] Comment on above: Performed By: #### P HOS, [id number], CMP, CBC, [id number], FE PRO, MG #### [facility] [address] [place] [address] [place] #### VITB1 #### [facility] , Ferritin [Mass/Vol] 29.2 ng/mL Normal 11-306.8 [facility] Comment on above: Performed By: #### P HOS, [id number], CMP, CBC, [id number], FE PRO, MG #### [facility] [address] [place] [address] [place] #### VITB1 #### [facility] , Iron [Mass/Vol] 69 ug/dL Normal 40-150 [facility] Comment on above: Performed By: #### P HOS, [id number], CMP, CBC, [id number], FE PRO, MG #### [facility] [address] [place] [address] [place] #### VITB1 #### [facility] , Total Iron Binding Capacity 288 ug/dL Normal 255-450 [facility] Comment on above: Performed By: #### P HOS, [id number], CMP, CBC, [id number], FE PRO, MG #### [facility] [address] [place] [address] [place] #### VITB1 #### [facility] , Transferrin [Mass/Vol] 206 mg/dL Normal 180-380 [facility] Comment on above: Performed By: #### P HOS, [id number], CMP, CBC, [id number], FE PRO, MG #### [facility] [address] [place] [address] [place] #### VITB1 #### [facility] , Ferritin [Mass/volume] in Se rum or PlasmaOrdered By: Reena Breaux on 10-11-2022 Ferritin [Mass/Vol] 29.2 ng/mL 11-306.8 [facility] Folate [Mass/volume] in Seru m or PlasmaOrdered By: Reena Breaux on 10-11-2022 Folate [Mass/Vol] 22.2 ng/mL >5.9 [facility] Comment on above: Folate reference ran ge: >5.9 ng/mlThe WHO technical consultation on folate and vitamin [id number] has determined that folate concentrations lessthan 4 ng/ml are considered deficient. Globulin Calc (S) [Mass/Vol] Ordered By: Reena Breaux on 10-11-2022 Globulin (S) [Mass/Vol] 2.8 g/dL [facility] Hematocrit Auto (Bld) [Volum e fraction]Ordered By: Reena Breaux on 10-11-2022 Hematocrit (Bld) [Volume fraction] 39.1 % 34.0-46.4 [facility] Hemoglobin [Mass/volume] in BloodOrdered By: Reena Breaux on 10-11-2022 Hemoglobin (Bld) [Mass/Vol] 13.1 g/dL 11.8-15.4 [facility] Iron [Mass/volume] in Serum or PlasmaOrdered By: Reena Breaux on 10-11-2022 Iron [Mass/Vol] 69 ug/dL 40-150 [facility] Iron binding capacity [Mass/ volume] in Serum or PlasmaOrdered By: Reena Breaux on 10-11-2022 Iron binding capacity [Mass/Vol] 288 ug/dL 255-450 [facility] Iron saturation [Mass Fracti on] in Serum or PlasmaOrdered By: Reena Breaux on 10-11-2022 Iron saturation [Mass fraction] 24.0 % 20-50 [facility] Laboratory - Chemistry and C hemistry - challengeOrdered By: Reena Breaux on 10-11-2022 Cobalamin (Vitamin B12) [Mass/Vol] 1437 pg/mL 180-914 [facility] Magnesium [Mass/Vol] 2.1 mg/dL 1.6-2.6 [facility] Leukocytes [#/volume] correc jakob for nucleated erythrocytes in Blood by Automated counOrdered By: Reena Breaux on 10-11-2022 WBC corrected for nucl RBC Auto (Bld) [#/Vol] 6.8 10*3/uL 3.8-11.6 [facility] Lymphocytes Auto (Bld) [#/Vo l]Ordered By: Reena Breaux on 10-11-2022 Lymphocytes (Bld) [#/Vol] 2.7 10*3/uL 1.00-4.8 [facility] Lymphocytes/100 WBC Auto (Bl d)Ordered By: eRena Breaux on 10-11-2022 Lymphocytes/100 WBC (Bld) 39.8 % . [facility] MCH Auto (RBC) [Entitic mass ]Ordered By: Reena Breaux on 10-11-2022 MCH (RBC) [Entitic mass] 31.9 pg 24.7-34.3 [facility] MCHC Auto (RBC) [Mass/Vol]Or dered By: Reena Breaux on 10-11-2022 MCHC (RBC) [Mass/Vol] 33.5 g/dL 32.0-35.0 [facility] MCV Auto (RBC) [Entitic vol] Ordered By: Reena Breaux on 10-11-2022 MCV (RBC) [Entitic vol] 95.3 fL 80-100 [facility] Magnesiumon 10-11-2022 Magnesium [Mass/Vol] 2.1 mg/dL Normal 1.6-2.6 [facility] Comment on above: Performed By: #### P HOS, [id number], CMP, CBC, [id number], FE PRO, MG #### [facility] [address] #### VITB1 #### [facility] , Monocytes Auto (Bld) [#/Vol] Ordered By: Reena Breaux on 10-11-2022 Monocytes (Bld) [#/Vol] 0.3 10*3/uL 0.0-0.8 [facility] Monocytes/100 WBC Auto (Bld) Ordered By: Reena Breaux on 10-11-2022 Monocytes/100 WBC (Bld) 5.1 % . [facility] Neutrophils Auto (Bld) [#/Vo l]Ordered By: Reena Breaux on 10-11-2022 Neutrophils (Bld) [#/Vol] 3.6 10*3/uL 1.8-7.7 [facility] Neutrophils/100 WBC Auto (Bl d)Ordered By: Reena Breaux on 10-11-2022 Neutrophils/100 WBC (Bld) 52.7 % . [facility] No Panel InformationOrdered By: Reena Breaux on 10-11-2022 25-Hydroxy Vitamin D Total 33.9 ng/mL 30-100 [facility] Comment on above: VITAMIN D STATUS 25( [place])VITAMIN D RANGE (ng/mL) Deficient <20 Insufficient 20 to <30Sufficient 30 to 100Reference: Kofi MF,Mauricio NC, Mayank CUELLAR, et al. Evaluation,treatment, and prevention of vitamin D deficiency; an Endocrine Society clinical practice guideline. JCEM. 2010; 96(7):1911-30. Estimated GFR () > 60 mL/Min [facility] Comment on above: GFR estimated refere nce range: According to KDOQI guidelines, <60 ml/min/1.73m2 is sufficient to diagnose a patient with chronic kidney disease. Pharmacy Creatinine Clearance (Chem N/A [facility] Nucleated erythrocytes [Pres ence] in Blood by Automated countOrdered By: Reena Breaux on 10-11-2022 Nucleated RBC Auto Ql (Bld) 0.0 /100{WBC} 0-0.5 [facility] Phosphate [Mass/volume] in S negro or PlasmaOrdered By: Reena Breaux on 10-11-2022 Phosphate [Mass/Vol] 3.9 mg/dL 2.5-4.6 [facility] Phosphoruson 10-11-2022 Phosphate [Mass/Vol] 3.9 mg/dL Normal 2.5-4.6 [facility] Comment on above: Performed By: #### P HOS, [id number], CMP, CBC, [id number], FE PRO, MG #### [facility] [address] #### VITB1 #### [facility] , Platelet mean volume Auto (B ld) [Entitic vol]Ordered By: Reena Breaux on 10-11-2022 Platelet mean volume (Bld) [Entitic vol] 9.8 fL 6.3-10.7 [facility] Platelets Auto (Bld) [#/Vol] Ordered By: Reena Breaux on 10-11-2022 Platelets (Bld) [#/Vol] 226 10*3/uL 150-450 [facility] Protein [Mass/volume] in Ser um or PlasmaOrdered By: Reena Breaux on 10-11-2022 Protein [Mass/Vol] 6.8 g/dL 6.1-7.9 [facility] RBC Auto (Bld) [#/Vol]Ordere d By: Reena Breaux on 10-11-2022 RBC (Bld) [#/Vol] 4.11 10*6/uL 3.60-5.00 [facility] Serum or plasma alanine doss otransferase measurement without P-5'-P (enzymatic activiOrdered By: Reena Breaux on 10-11-2022 ALT No additional P-5'-P [Catalytic activity/Vol] 12 U/L 10-60 [facility] Serum or plasma albumin/glob ulin mass ratioOrdered By: Reena Breaux on 10-11-2022 Albumin/Globulin [Mass ratio] 1.4 {ratio} [facility] Serum or plasma alkaline denis sphatase measurement (enzymatic activity/volume)Ordered By: Reena Breaux on 10-11-2022 ALP [Catalytic activity/Vol] 36 U/L 32-92 [facility] Serum or plasma anion gap de terminationOrdered By: Reena Breaux on 10-11-2022 Anion gap [Moles/Vol] 11.6 mmol/L 6.0-15.0 [facility] Serum or plasma aspartate am inotransferase measurement (enzymatic activity/volume)Ordered By: Reena Breaux on 10-11-2022 AST [Catalytic activity/Vol] 11 U/L 10-42 [facility] Serum or plasma calcium gloria urement (mass/volume)Ordered By: Reena Breaux on 10-11-2022 Calcium [Mass/Vol] 9.3 mg/dL 8.2-10.2 [facility] Serum or plasma chloride gina surement (moles/volume)Ordered By: Reena Breaux on 10-11-2022 Chloride [Moles/Vol] 103 mmol/L 95-114 [facility] Serum or plasma glucose gloria urement (mass/volume)Ordered By: Reena Breaux on 10-11-2022 Glucose [Mass/Vol] 85 mg/dL 70-100 [facility] Comment on above: ADA recommended refe rence rangeRandom Glucose Reference Range is dependent on time and content of last meal. Glucose of more than 200 mg/dL in a nonstressed, ambulatory subject supports the diagnosis of Diabetes Mellitus. Serum or plasma potassium me asurement (moles/volume)Ordered By: Reena Breaux on 10-11-2022 Potassium [Moles/Vol] 4.0 mmol/L 3.5-5.1 [facility] Serum or plasma sodium measu rement (moles/volume)Ordered By: Reena Breaux on 10-11-2022 Sodium [Moles/Vol] 137 mmol/L 136-146 [facility] Serum or plasma total biliru bin measurement (mass/volume)Ordered By: Reena Breaux on 10-11-2022 Bilirubin [Mass/Vol] 0.3 mg/dL 0.3-1.2 [facility] Serum or plasma total carbon dioxide measurement (moles/volume)Ordered By: Reena Breaux on 10-11-2022 CO2 [Moles/Vol] 26.4 mmol/L 22.0-30.0 [facility] Serum or plasma urea nitroge n measurement (mass/volume)Ordered By: Reena Breaux on 10-11-2022 Urea nitrogen [Mass/Vol] 11 mg/dL 05-14 [facility] Vit. B12/Folate Profileon Cobalamin (Vitamin B12) [Mass/Vol] 1437 pg/mL High 180-914 [facility] Comment on above: Performed By: #### P HOS, [id number], CMP, CBC, [id number], FE PRO, MG #### [facility] [address] [place] [address] #### VITB1 #### [facility] , Folate 22.2 ng/mL Normal >5.9 [facility] Comment on above: Result Comment: Tara te reference range: >5.9 ng/ml The WHO technical consultation on folate and vitamin b12 deficiencies has determined that folate concentrations less than 4 ng/ml are considered deficient. Performed By: #### P HOS, [id number], CMP, CBC, [id number], FE PRO, MG #### [facility] [address] [place] [address] #### VITB1 #### [facility] , Vitamin B1 (Thiamine) Bloodo n 10-11-2022 Vitamin B1 (Thiamine) Blood 153.8 Normal 66.5-200.0 [facility] Comment on above: Result Comment: This test was developed and its performance characteristics determined by [facility]. It has not been cleared or approved by the Food and Drug Administration. Performed at: [facility] [address] [id number] [employer] Developer: Chary Soler MD, Phone: [phone] PERFORMED BY: [place] [address] PATHOLOGIST FORGING MACHINE OPERATOR AMANDA CALLE M.D. Performed By: #### P HOS, [id number], CMP, CBC, [id number], FE PRO, MG #### [address] #### VITB1 #### [facility] , Vitamin D 25 Hydroxy Totalon 10-11-2022 Vitamin D 25 Hydroxy Total 33.9 ng/mL Normal 30-100 [facility] Comment on above: Result Comment: JONAH MIN D STATUS 25([place])VITAMIN D RANGE (ng/mL) Deficient <20 Insufficient 20 to <30 Sufficient 30 to 100 Reference: Kofi MF,Mauricio MUÑOZ, Mayank CUELLAR, et al. Evaluation,treatment, and prevention of vitamin D deficiency; an Endocrine Society clinical practice guideline. JCEM. 2010; 96(7):1911-30. PERFORMED BY: [place] [phone] PATHOLOGIST FORGING MACHINE OPERATOR AMANDA CALLE M.D. Performed By: #### P HOS, [id number], CMP, CBC, [id number], FE PRO, MG #### [facility] [address] [place] [address] #### VITB1 #### [facility] , WBC Auto (Bld) [#/Vol]Ordere d By: Reena Breaux on 10-11-2022 WBC (Bld) [#/Vol] 6.8 10*3/uL 3.8-11.6 [facility] Complete Blood Count Auto Di ffon 06-10-2022 Basophils (Bld) [#/Vol] 0.0 10*3/uL Normal 0.0-0.2 [facility] Comment on above: Order Comment: NOT F ASTING. JKW Result Comment: PERF ORMED BY: [place] [address] PATHOLOGIST FORGING MACHINE OPERATOR AMANDA CALLE M.D. Performed By: #### V ITB1 #### [facility] , #### [id number], CMP, MG, FE PRO, PHOS, [id number], CBC #### [address] Basophils/100 WBC (Bld) 0.7 % Normal . [facility] Comment on above: Order Comment: NOT F ASTING. JKW Performed By: #### V ITB1 #### [facility] , #### [id number], CMP, MG, FE PRO, PHOS, [id number], CBC #### [address] Eosinophils (Bld) [#/Vol] 0.2 10*3/uL Normal 0.0-0.45 [facility] Comment on above: Order Comment: NOT F ASTING. JKW Performed By: #### V ITB1 #### [facility] , #### [id number], CMP, MG, FE PRO, PHOS, [id number], CBC #### [address] Eosinophils/100 WBC (Bld) 2.6 % Normal . [facility] Comment on above: Order Comment: NOT F ASTING. JKW Performed By: #### V ITB1 #### [facility] , #### [id number], CMP, MG, FE PRO, PHOS, [id number], CBC #### [address] Erythrocyte distribution width (RBC) [Ratio] 13.9 % Normal 11.9-15.3 [facility] Comment on above: Order Comment: NOT F ASTING. JKW Performed By: #### V ITB1 #### [facility] , #### [id number], CMP, MG, FE PRO, PHOS, [id number], CBC #### [address] Hematocrit (Bld) [Volume fraction] 39.1 % Normal 34.0-46.4 [facility] Comment on above: Order Comment: NOT F ASTING. JKW Performed By: #### V ITB1 #### [facility] , #### [id number], CMP, MG, FE PRO, PHOS, [id number], CBC #### [address] Hemoglobin (Bld) [Mass/Vol] 12.8 g/dL Normal 11.8-15.4 [facility] Comment on above: Order Comment: NOT F ASTING. JKW Performed By: #### V ITB1 #### [facility] , #### [id number], CMP, MG, FE PRO, PHOS, [id number], CBC #### [address] Lymphocytes (Bld) [#/Vol] 1.5 10*3/uL Normal 1.00-4.8 [facility] Comment on above: Order Comment: NOT F ASTING. JKW Performed By: #### V ITB1 #### [facility] , #### [id number], CMP, MG, FE PRO, PHOS, [id number], CBC #### [address] Lymphocytes/100 WBC (Bld) 24.6 % Normal . [facility] Comment on above: Order Comment: NOT F ASTING. JKW Performed By: #### V ITB1 #### [facility] , #### [id number], CMP, MG, FE PRO, PHOS, [id number], CBC #### [facility] [address] [place] [address] MCH (RBC) [Entitic mass] 31.8 pg Normal 24.7-34.3 [facility] Comment on above: Order Comment: NOT F ASTING. JKW Performed By: #### V ITB1 #### [facility] , #### [id number], CMP, MG, FE PRO, PHOS, [id number], CBC #### [address] MCV (RBC) [Entitic vol] 97.2 fL Normal 80-100 [facility] Comment on above: Order Comment: NOT F ASTING. JKW Performed By: #### V ITB1 #### [facility] , #### [id number], CMP, MG, FE PRO, PHOS, [id number], CBC #### [address] Mean Corpuscular HGB Conc 32.7 g/dL Normal 32.0-35.0 [facility] Comment on above: Order Comment: NOT F ASTING. JKW Performed By: #### V ITB1 #### [facility] , #### [id number], CMP, MG, FE PRO, PHOS, [id number], CBC #### [address] Monocytes (Bld) [#/Vol] 0.4 10*3/uL Normal 0.0-0.8 [facility] Comment on above: Order Comment: NOT F ASTING. JKW Performed By: #### V ITB1 #### [facility] , #### [id number], CMP, MG, FE PRO, PHOS, [id number], CBC #### [address] Monocytes/100 WBC (Bld) 7.3 % Normal . [facility] Comment on above: Order Comment: NOT F ASTING. JKW Performed By: #### V ITB1 #### [facility] , #### [id number], CMP, MG, FE PRO, PHOS, [id number], CBC #### [address] Neutrophils (Bld) [#/Vol] 3.8 10*3/uL Normal 1.8-7.7 [facility] Comment on above: Order Comment: NOT F ASTING. JKW Performed By: #### V ITB1 #### [facility] , #### [id number], CMP, MG, FE PRO, PHOS, [id number], CBC #### [address] [address] Neutrophils/100 WBC (Bld) 64.8 % Normal . [facility] Comment on above: Order Comment: NOT F ASTING. JKW Performed By: #### V ITB1 #### [facility] , #### [id number], CMP, MG, FE PRO, PHOS, [id number], CBC #### [address] Nucleated RBC/100 WBC (Bld) [Ratio] 0.1 % Normal 0-0.5 [facility] Comment on above: Order Comment: NOT F ASTING. JKW Performed By: #### V ITB1 #### [facility] , #### [id number], CMP, MG, FE PRO, PHOS, [id number], CBC #### [address] Platelet mean volume (Bld) [Entitic vol] 10.6 fL Normal 6.3-10.7 [facility] Comment on above: Order Comment: NOT F ASTING. JKW Performed By: #### V ITB1 #### [facility] , #### [id number], CMP, MG, FE PRO, PHOS, [id number], CBC #### [place] [address] [place] Platelets (Bld) [#/Vol] 237 10*3/uL Normal 150-450 [facility] Comment on above: Order Comment: NOT F ASTING. JKW Performed By: #### V ITB1 #### [facility] , #### [id number], CMP, MG, FE PRO, PHOS, [id number], CBC #### [facility] [address] RBC (Bld) [#/Vol] 4.02 10*6/uL Normal 3.60-5.00 [facility] Comment on above: Order Comment: NOT F ASTING. JKW Performed By: #### V ITB1 #### [facility] , #### [id number], CMP, MG, FE PRO, PHOS, [id number], CBC #### [facility] [address] WBC (Bld) [#/Vol] 5.9 10*3/uL Normal 4.5-11.0 [facility] Comment on above: Order Comment: NOT F ASTING. JKW Performed By: #### V ITB1 #### [facility] , #### [id number], CMP, MG, FE PRO, PHOS, [id number], CBC #### [facility] [address] [place] [address] Comprehensive Metabolic Pane [facility] 06-10-2022 Albumin [Mass/Vol] 3.9 g/dL Normal 3.2-5.5 [facility] Comment on above: Order Comment: NOT F ASTING. JKW Performed By: #### V ITB1 #### [facility] , #### [id number], CMP, MG, FE PRO, PHOS, [id number], CBC #### [facility] [address] [place] [address] Albumin/Globulin [Mass ratio] 1.4 {ratio} Normal [facility] Comment on above: Order Comment: NOT F ASTING. JKW Performed By: #### V ITB1 #### [facility] , #### [id number], CMP, MG, FE PRO, PHOS, [id number], CBC #### [facility] [address] [place] [address] ALP [Catalytic activity/Vol] 43 U/L Normal 32-92 [facility] Comment on above: Order Comment: NOT F ASTING. JKW Performed By: #### V ITB1 #### [facility] , #### [id number], CMP, MG, FE PRO, PHOS, [id number], CBC #### [address] ALT [Catalytic activity/Vol] 12 U/L Normal 10-60 [facility] Comment on above: Order Comment: NOT F ASTING. JKW Performed By: #### V ITB1 #### [facility] , #### [id number], CMP, MG, FE PRO, PHOS, [id number], CBC #### [address] Anion gap [Moles/Vol] 11.0 mmol/L Normal 6.0-15.0 [facility] Comment on above: Order Comment: NOT F ASTING. JKW Performed By: #### V ITB1 #### [facility] , #### [id number], CMP, MG, FE PRO, PHOS, [id number], CBC #### [address] AST [Catalytic activity/Vol] 10 U/L Normal 10-42 [facility] Comment on above: Order Comment: NOT F ASTING. JKW Performed By: #### V ITB1 #### [facility] , #### [id number], CMP, MG, FE PRO, PHOS, [id number], CBC #### [address] Bilirubin [Mass/Vol] 0.7 mg/dL Normal 0.3-1.2 [facility] Comment on above: Order Comment: NOT F ASTING. JKW Performed By: #### V ITB1 #### [facility] , #### [id number], CMP, MG, FE PRO, PHOS, [id number], CBC #### [facility] [address] Calcium [Mass/Vol] 9.8 mg/dL Normal 8.2-10.2 [facility] Comment on above: Order Comment: NOT F ASTING. JKW Performed By: #### V ITB1 #### [facility] , #### [id number], CMP, MG, FE PRO, PHOS, [id number], CBC #### [facility] [address] Chloride [Moles/Vol] 104 mmol/L Normal 95-114 [facility] Comment on above: Order Comment: NOT F ASTING. JKW Performed By: #### V ITB1 #### [facility] , #### [id number], CMP, MG, FE PRO, PHOS, [id number], CBC #### [facility] [address] CO2 [Moles/Vol] 25.3 mmol/L Normal 22.0-30.0 [facility] Comment on above: Order Comment: NOT F ASTING. JKW Performed By: #### V ITB1 #### [facility] , #### [id number], CMP, MG, FE PRO, PHOS, [id number], CBC #### [facility] [address] Creatinine [Mass/Vol] 0.56 mg/dL Normal 0.44-1.03 [facility] Comment on above: Order Comment: NOT F ASTING. JKW Performed By: #### V ITB1 #### [facility] , #### [id number], CMP, MG, FE PRO, PHOS, [id number], CBC #### [address] Estimated GFR ( Christiano > 60 Normal [facility] Comment on above: Order Comment: NOT F ASTING. JKW Result Comment: GFR estimated reference range: According to KDOQI guidelines, <60 ml/min/1.73m2 is sufficient to diagnose a patient with chronic kidney disease. Performed By: #### V ITB1 #### [facility] , #### [id number], CMP, MG, FE PRO, PHOS, [id number], CBC #### [address] Estimated GFR (Non- Am > 60 [facility] Comment on above: Order Comment: NOT F ASTING. JKW Performed By: #### V ITB1 #### [facility] , #### [id number], CMP, MG, FE PRO, PHOS, [id number], CBC #### [address] Globulin (S) [Mass/Vol] 2.8 g/dL Normal [facility] Comment on above: Order Comment: NOT F ASTING. JKW Performed By: #### V ITB1 #### [facility] , #### [id number], CMP, MG, FE PRO, PHOS, [id number], CBC #### [address] Glucose [Mass/Vol] 95 mg/dL Normal 70-100 [facility] Comment on above: Order Comment: NOT F ASTING. JKW Result Comment: [place] om Glucose Reference Range is dependent on time and content of last meal. Glucose of more than 200 mg/dL in a nonstressed, ambulatory subject supports the diagnosis of Diabetes Mellitus. ADA recommended reference range Performed By: #### V ITB1 #### [facility] , #### [id number], CMP, MG, FE PRO, PHOS, [id number], CBC #### [address] [place] [address] [place] Potassium [Moles/Vol] 4.3 mmol/L Normal 3.5-5.1 [facility] Comment on above: Order Comment: NOT F ASTING. JKW Performed By: #### V ITB1 #### [facility] , #### [id number], CMP, MG, FE PRO, PHOS, [id number], CBC #### [address] Protein [Mass/Vol] 6.7 g/dL Normal 6.1-7.9 [facility] Comment on above: Order Comment: NOT F ASTING. JKW Performed By: #### V ITB1 #### [facility] , #### [id number], CMP, MG, FE PRO, PHOS, [id number], CBC #### [address] Sodium [Moles/Vol] 136 mmol/L Normal 136-146 [facility] Comment on above: Order Comment: NOT F ASTING. JKW Performed By: #### V ITB1 #### [facility] , #### [id number], CMP, MG, FE PRO, PHOS, [id number], CBC #### [address] Urea nitrogen [Mass/Vol] 7 mg/dL Low 9-23 [facility] Comment on above: Order Comment: NOT F ASTING. JKW Performed By: #### V ITB1 #### [facility] , #### [id number], CMP, MG, FE PRO, PHOS, [id number], CBC #### [address] FE PROon 10-20-2022 % Iron Saturation 19.0 % Low 20-50 [facility] Comment on above: Order Comment: NOT F ASTING. JKW Performed By: #### P HOS, [id number], CMP, CBC, [id number], FE PRO, MG #### [facility] [address] [place] [address] [place] #### VITB1 #### [facility] , Ferritin [Mass/Vol] 46.7 ng/mL Normal 11-306.8 [facility] Comment on above: Order Comment: NOT F ASTING. JKW Performed By: #### P HOS, [id number], CMP, CBC, [id number], FE PRO, MG #### [address] #### VITB1 #### [facility] , Iron [Mass/Vol] 50 ug/dL Normal 40-150 [facility] Comment on above: Order Comment: NOT F ASTING. JKW Performed By: #### P HOS, [id number], CMP, CBC, [id number], FE PRO, MG #### [place] [address] [place] #### VITB1 #### [facility] , Total Iron Binding Capacity 260 ug/dL Normal 255-450 [facility] Comment on above: Order Comment: NOT F ASTING. JKW Performed By: #### P HOS, [id number], CMP, CBC, [id number], FE PRO, MG #### [facility] [address] [place] [address] [place] #### VITB1 #### [facility] , Transferrin [Mass/Vol] 186 mg/dL Normal 180-380 [facility] Comment on above: Order Comment: NOT F ASTING. JKW Performed By: #### P HOS, [id number], CMP, CBC, [id number], FE PRO, MG #### [place] [address] [place] #### VITB1 #### [facility] , Magnesiumon 06-10-2022 Magnesium [Mass/Vol] 2.0 mg/dL Normal 1.6-2.6 [facility] Comment on above: Order Comment: NOT F ASTING. JKW Performed By: #### P HOS, [id number], CMP, CBC, [id number], FE PRO, MG #### [place] [address] [place] #### VITB1 #### [facility] , Phosphoruson 06-10-2022 Phosphate [Mass/Vol] 4.1 mg/dL Normal 2.5-4.6 [facility] Comment on above: Order Comment: NOT F ASTING. JKW Performed By: #### P HOS, [id number], CMP, CBC, [id number], FE PRO, MG #### [address] #### VITB1 #### [facility] , Vit. B12/Folate Profileon Cobalamin (Vitamin B12) [Mass/Vol] 575 pg/mL Normal 180-914 [facility] Comment on above: Order Comment: NOT F ASTING. JKW Performed By: #### P HOS, [id number], CMP, CBC, [id number], FE PRO, MG #### [facility] [address] [place] [address] #### VITB1 #### [facility] , Folate 14.3 ng/mL Normal >5.9 [facility] Comment on above: Order Comment: NOT F ASTING. JKW Result Comment: Tara te reference range: >5.9 ng/ml The WHO technical consultation on folate and vitamin b12 deficiencies has determined that folate concentrations less than 4 ng/ml are considered deficient. Performed By: #### P HOS, [id number], CMP, CBC, [id number], FE PRO, MG #### [place] [address] [place] #### VITB1 #### [facility] , Vitamin B1 (Thiamine) Bloodo 06-10-2022 Vitamin B1 (Thiamine) Blood 143.0 Normal 66.5-200.0 [facility] Comment on above: Order Comment: NOT F ASTING. JKW Result Comment: This test was developed and its performance characteristics determined by [facility]. It has not been cleared or approved by the Food and Drug Administration. Performed at: [facility] [address] [id number] [employer] Reports Developer: Chary Soler MD, Phone: [phone] PERFORMED BY: [place] [address] PATHOLOGIST FORGING MACHINE OPERATOR AMANDA CALLE M.D. Performed By: #### P HOS, [id number], CMP, CBC, [id number], FE PRO, MG #### [address] #### VITB1 #### [facility] , Vitamin D 25 Hydroxy Totalon 06-10-2022 Vitamin D 25 Hydroxy Total 27.8 ng/mL Low 30-100 [facility] Comment on above: Order Comment: NOT F ASTING. JKW Result Comment: JONAH MIN D STATUS 25(OH)VITAMIN D RANGE (ng/mL) Deficient <20 Insufficient 20 to <30 Sufficient 30 to 100 Reference: Kofi MF,Mauricio NC, Mayank CUELLAR, et al. Evaluation,treatment, and prevention of vitamin D deficiency; an Endocrine Society clinical practice guideline. JCEM. 2010; 96(7):1911-30. PERFORMED BY: [place] [address] PATHOLOGIST FORGING MACHINE OPERATOR AMANDA CALLE M.D. Performed By: #### P HOS, [id number], CMP, CBC, [id number], FE PRO, MG #### [facility] [address] [place] [address] #### VITB1 #### [facility] , HGB A1Con 01-15-2022 Average glucose Estimated from glycated hemoglobin (Bld) [Mass/Vol] 128 mg/dL Normal [facility] Comment on above: Order Comment: Speci men Type: BLOOD SPECIMEN Ordering Facility: [facility] Address: [address] [place] [phone] Result Comment: eAG: (Estimated average glucose) is a calculated value from HgbA1c and is marketing representative of the average blood glucose level in the last 2-3 month period. Performed By: #### H BA1C #### [facility] CLIA [id number] [address] [place] [address] [place] HbA1c (Bld) [Mass fraction] 6.1 % High 4.3-5.6 [facility] Comment on above: Order Comment: Mary head Type: BLOOD SPECIMEN Ordering Facility: [facility] Address: [address] [place] [address] Result Comment: [place] Diabetes Association guidelines indicate that patients with HgbA1c in the range 5.7-6.4% are at increased risk for development of diabetes, and intervention by lifestyle modification may be beneficial. HgbA1c greater or equal to 6.5% is considered diagnostic of diabetes. Performed By: #### H BA1C #### [facility] CLIA [id number] [address] [place] [address] [place] POTASSIUM BLDon 01-15-2022 Potassium [Moles/Vol] 4.9 mmol/L Normal 3.7-5.1 [facility] Comment on above: Order Comment: Mary head Type: BLOOD SPECIMEN Ordering Facility: [facility] Address: [address] [place] [phone] Performed By: #### K 1 #### [facility] CLIA [id number] [facility] [place] [address] [place] Potassium [Moles/Vol] 4.9 mmol/L 3.7 - 5.1 mmol/L [facility] Vital Signs Date Time Vital Sign Value Performing Clinician Facility 05-01-2025 09:22-0400 Body mass index (BMI) [Ratio] 38.11 kg/m2 Rosy KRUGER Work Phone: [facility] 05-01-2025 09:22-0400 Body weight 97.58 kg Rosy KRUGER Work Phone: [facility] 05-01-2025 09:22-0400 Diastolic blood pressure 60 mm[Hg] Rosy KRUGER Work Phone: [facility] 05-01-2025 09:22-0400 Systolic blood pressure 110 mm[Hg] Rosy KRUGER Work Phone: [facility] 04-24-2025 11:50-0400 Body mass index (BMI) [Ratio] 37.22 kg/m2 Roscoe Joe DO Work Phone: [facility] 04-24-2025 11:50-0400 Body weight 95.31 kg Roscoe Joe DO Work Phone: [facility] 04-24-2025 11:50-0400 Diastolic blood pressure 74 mm[Hg] Roscoe Joe DO Work Phone: [facility] 04-24-2025 11:50-0400 Systolic blood pressure 116 mm[Hg] Roscoe Joe DO Work Phone: [facility] 04-10-2025 15:14-0400 Body mass index (BMI) [Ratio] 37.22 kg/m2 Roscoe Joe DO Work Phone: [facility] 04-10-2025 15:14-0400 Body weight 95.31 kg Roscoe Joe DO Work Phone: [facility] 04-10-2025 15:14-0400 Diastolic blood pressure 70 mm[Hg] Roscoe Joe DO Work Phone: [facility] 04-10-2025 15:14-0400 Systolic blood pressure 120 mm[Hg] Roscoe Joe DO Work Phone: [facility] 03-27-2025 14:01-0400 Body mass index (BMI) [Ratio] 36.28 kg/m2 Roscoe Joe DO Work Phone: [facility] 03-27-2025 14:01-0400 Body weight 92.9 kg Roscoe Joe DO Work Phone: [facility] 03-27-2025 14:01-0400 Diastolic blood pressure 72 mm[Hg] Roscoe Joe DO Work Phone: [facility] 03-27-2025 14:01-0400 Systolic blood pressure 116 mm[Hg] Roscoe Joe DO Work Phone: [facility] 03-13-2025 15:41-0400 Body mass index (BMI) [Ratio] 36.46 kg/m2 Rosy Oralia PA Work Phone: [facility] 03-13-2025 15:41-0400 Body weight 93.35 kg Rosy Oralia PA Work Phone: [facility] 03-13-2025 15:41-0400 Diastolic blood pressure 70 mm[Hg] Rosy Reading PA Work Phone: [facility] 03-13-2025 15:41-0400 Systolic blood pressure 110 mm[Hg] Rosy Oralia PA Work Phone: [facility] 03-12-2025 13:35-0400 Body height 160 cm Daisha Lavoy PA-C Work Phone: [facility] 03-12-2025 13:35-0400 Body mass index (BMI) [Ratio] 36.38 kg/m2 Daisha Lavoy PA-C Work Phone: [facility] 03-12-2025 13:35-0400 Body weight 93.17 kg Daisha Lavoy PA-C Work Phone: [facility] 03-12-2025 13:35-0400 Diastolic blood pressure 57 mm[Hg] Daisha Lavoy PA-C Work Phone: [facility] 03-12-2025 13:35-0400 Heart rate 76 /min Daisha Lavoy PA-C Work Phone: [facility] 03-12-2025 13:35-0400 Systolic blood pressure 99 mm[Hg] Daisha Lavoy PA-C Work Phone: [facility] 02-27-2025 14:00-0400 Body mass index (BMI) [Ratio] 36.1 kg/m2 Roscoe Joe DO Work Phone: [facility] 02-27-2025 14:00-0400 Body weight 92.44 kg Roscoe Joe DO Work Phone: [facility] 02-27-2025 14:00-0400 Diastolic blood pressure 60 mm[Hg] Roscoe Joe DO Work Phone: [facility] 02-27-2025 14:00-0400 Systolic blood pressure 110 mm[Hg] Roscoe Joe DO Work Phone: [facility] 02-14-2025 15:17-0400 Body mass index (BMI) [Ratio] 36.21 kg/m2 Hien Giles RN Work Phone: [facility] 02-14-2025 15:17-0400 Body weight 92.72 kg Hien Giles RN Work Phone: [facility] 02-11-2025 11:36-0400 Body mass index (BMI) [Ratio] 35.87 kg/m2 Rosy KRUGER Work Phone: [facility] 02-11-2025 11:36-0400 Body weight 91.85 kg Rosy KRUGER Work Phone: [facility] 02-11-2025 11:36-0400 Diastolic blood pressure 60 mm[Hg] Rosy Barton PA Work Phone: [facility] 02-11-2025 11:36-0400 Systolic blood pressure 110 mm[Hg] Rosy Barton PA Work Phone: [facility] 02-07-2025 10:43-0400 Body height 160 cm Scanning External [facility] 01-10-2025 10:33-0400 Body mass index (BMI) [Ratio] 34.92 kg/m2 Roscoe Joe DO Work Phone: [facility] 01-10-2025 10:33-0400 Body weight 89.41 kg Roscoe Joe DO Work Phone: [facility] 01-10-2025 10:33-0400 Diastolic blood pressure 68 mm[Hg] Roscoe Joe DO Work Phone: [facility] 01-10-2025 10:33-0400 Systolic blood pressure 110 mm[Hg] Roscoe Joe DO Work Phone: [facility] 12-10-2024 11:23-0400 Body mass index (BMI) [Ratio] 33.66 kg/m2 Rosy Barton PA Work Phone: [facility] 12-10-2024 11:23-0400 Body weight 86.18 kg Rosy Barton PA Work Phone: [facility] 12-10-2024 11:23-0400 Diastolic blood pressure 70 mm[Hg] Rosy Barton PA Work Phone: [facility] 12-10-2024 11:23-0400 Systolic blood pressure 106 mm[Hg] Rosy Oralia PA Work Phone: [facility] 11-08-2024 11:04-0400 Body mass index (BMI) [Ratio] 32.24 kg/m2 Roscoe Joe DO Work Phone: [facility] 11-08-2024 11:04-0400 Body weight 82.56 kg Roscoe Joe DO Work Phone: [facility] 11-08-2024 11:04-0400 Diastolic blood pressure 60 mm[Hg] Roscoe Joe DO Work Phone: [facility] 11-08-2024 11:04-0400 Systolic blood pressure 100 mm[Hg] Roscoe Joe DO Work Phone: [facility] 10-18-2024 13:54-0500 Body mass index (BMI) [Ratio] 31.38 kg/m2 Nom Nurse [facility] 10-18-2024 13:54-0500 Body weight 80.34 kg [facility] Nurse [facility] 08-02-2024 15:58-0500 Body temperature 96.8 [degF] Edu Alvarez [employer] TR[employer] LOADER Work Phone: [facility] 08-02-2024 15:58-0500 Diastolic blood pressure 66 mm[Hg] Edu Alvarez [employer] TR[employer] LO[employer]ER Work Phone: [facility] 08-02-2024 15:58-0500 Heart rate 88 /min Edu Alvarez [employer] TR[employer] LOADER Work Phone: [facility] 08-02-2024 15:58-0500 SaO2% (BldA) [Mass fraction] 98 % Edu Alvarez [employer] TR[employer] LOADER Work Phone: [facility] 08-02-2024 15:58-0500 Systolic blood pressure 106 mm[Hg] Edu Alvarez [employer] TR[employer] LOADER Work Phone: [facility] 07-25-2024 14:19-0500 Body height 160 cm Sina [employer] DO Work Phone: [facility] 07-25-2024 14:19-0500 Body mass index (BMI) [Ratio] 30.82 kg/m2 Sina [employer] DO Work Phone: [facility] 07-25-2024 14:19-0500 Body weight 78.93 kg Sina [employer] DO Work Phone: [facility] 07-25-2024 14:19-0500 Diastolic blood pressure 68 mm[Hg] Sina Cristobal DO Work Phone: [facility] 07-25-2024 14:19-0500 Heart rate 68 /min Sina [employer] DO Work Phone: [facility] 07-25-2024 14:19-0500 Respiratory rate 12 /min Sina [employer] DO Work Phone: [facility] 07-25-2024 14:19-0500 SaO2% (BldA) [Mass fraction] 99 % Sina [employer] DO Work Phone: [facility] 07-25-2024 14:19-0500 Systolic blood pressure 128 mm[Hg] Sina [employer] DO Work Phone: [facility] 06-29-2024 12:36-0500 Body mass index (BMI) [Ratio] 29.58 kg/m2 Berenice Evelyn SLURRY MIXER.SPORTS THERAPIST Work Phone: [facility] 06-29-2024 12:36-0500 Body weight 75.75 kg Berenice Evelyn [employer] M[employer]ER.SPORTS THERAPIST Work Phone: [facility] 06-29-2024 12:36-0500 Diastolic blood pressure 68 mm[Hg] Berenice Evelyn [employer]URRY MIXER.SPORTS THERAPIST Work Phone: [facility] 06-29-2024 12:36-0500 Heart rate 65 /min Berenice Evelyn SLURRY MIXER.SPORTS THERAPIST Work Phone: [facility] 06-29-2024 12:36-0500 Systolic blood pressure 101 mm[Hg] Berenice Evelyn [employer]URRY MIXER.SPORTS THERAPIST Work Phone: [facility] 09-23-2023 14:27-0500 Body height 160 cm Berenice Evelyn SLURRY MIXER.SPORTS THERAPIST Work Phone: [facility] 09-23-2023 14:27-0500 Body weight 76.2 kg Berenice Evelyn SLURRY MIXER.SPORTS THERAPIST Work Phone: [facility] 07-21-2023 16:05-0500 Body height 161.2 cm Berenice Evelyn SLURRY MIXER.SPORTS THERAPIST Work Phone: [facility] 07-21-2023 16:05-0500 Body weight 80.06 kg Berenice Eveyln [employer]URRY MIXER.SPORTS THERAPIST Work Phone: [facility] 07-21-2023 16:05-0500 Diastolic blood pressure 74 mm[Hg] Berenice Evelyn SLURRY MIXER.SPORTS THERAPIST Work Phone: [facility] 07-21-2023 16:05-0500 Heart rate 60 /min Berenice Evelyn SLURRY MIXER.SPORTS THERAPIST Work Phone: [facility] 07-21-2023 16:05-0500 Systolic blood pressure 112 mm[Hg] Berenice Evelyn SLURRY MIXER.SPORTS THERAPIST Work Phone: [facility] 01-15-2022 11:50-0400 Body height 162.6 cm Dasha Lujan MD Work Phone: [facility] 01-15-2022 11:50-0400 Body temperature 98.01 [degF] Dasha Lujan MD Work Phone: [facility] 01-15-2022 11:50-0400 Body weight 104.33 kg Dasha Lujan MD Work Phone: [facility] 01-15-2022 11:50-0400 Diastolic blood pressure 86 mm[Hg] Dasha Lujan MD Work Phone: [facility] 01-15-2022 11:50-0400 Heart rate 65 /min Dasha Lujan MD Work Phone: [facility] 01-15-2022 11:50-0400 Respiratory rate 16 /min Dasha Lujan MD Work Phone: [facility] 01-15-2022 11:50-0400 Systolic blood pressure 124 mm[Hg] Dasha Lujan MD Work Phone: [facility] Encounters Encounter Date Encounter Type Care Provider Facility Start: 05-08-2025 End: 05-08-2025 Clinisync Result Encounter Roscoe Joe DO Work Phone: [facility] External Department Unsolicited Start: 05-08-2025 End: 05-08-2025 Clinisync Result Encounter Roscoe Joe DO Work Phone: [facility] External Department Unsolicited Start: 05-06-2025 End: 05-06-2025 Clinisync Result Encounter Roscoe Joe DO Work Phone: [facility] External Department Unsolicited Start: 05-06-2025 End: 05-06-2025 Clinisync Result Encounter Roscoe Joe DO Work Phone: [facility] External [facility] Unsolicited Start: 05-01-2025 End: 05-01-2025 flow sheet Rosy KRUGER Work Phone: [facility] Comment on above: 37 weeks gestation o f ([facility]); Third trimester ([facility]); H/O gastric sleeve; Insulin controlled gestational diabetes mellitus (GDM) during , antepartum ([facility]) Start: 05-01-2025 End: 05-01-2025 Office outpatient visit 25 minutes Josiah Dillon [employer]NS[employer] Work Phone: [facility] Comment on above: Gestational diabetes requiring insulin (Primary Dx) Start: 05-01-2025 End: 05-01-2025 Refill Josiah Dillon [employer] Work Phone: [facility] Comment on above: Gestational diabetes requiring insulin Start: 04-29-2025 End: 04-29-2025 Clinisync Result Encounter Rosy KRUGER Work Phone: [facility] External Department Unsolicited Start: 04-29-2025 End: 04-29-2025 Clinisync Result Encounter Rosy KRUGER Work Phone: [facility] External Department Unsolicited Start: 04-24-2025 End: 04-24-2025 Bamboo flowsheet Roscoe Joe DO Work Phone: [facility] Start: 04-24-2025 End: 04-24-2025 Bamboo flowsheet Roscoe Joe DO Work Phone: [facility] Start: 04-24-2025 End: 04-24-2025 flow sheet Roscoe Joe DO Work Phone: [facility] Comment on above: Third trimester preg piper ([facility]); 36 weeks gestation of ([facility]) Start: 04-24-2025 End: 04-24-2025 ambulatory ROSCOE JOE Not Available Start: 04-23-2025 End: 04-23-2025 Clinisync Result Encounter Rosy KRUGER Work Phone: [facility] Unsolicited Start: 04-23-2025 End: 04-23-2025 Clinisync Result Encounter Rosy KRUGER Work Phone: [facility] Unsolicited Start: 04-23-2025 End: 04-23-2025 Telephone encounter Devika MALDONADO Work Phone: Maternal- Medicine at [facility] Start: 04-15-2025 End: 04-15-2025 Clinisync Result Encounter Rosy KRUGER Work Phone: [facility] Unsolicited Start: 04-15-2025 End: 04-15-2025 Clinisync Result Encounter Rosy KRUGER Work Phone: [facility] Unsolicited Start: 04-15-2025 End: 04-15-2025 Telephone encounter Beulah Miller RN Maternal- Medicine at [facility] Start: 04-10-2025 End: 04-10-2025 flow sheet Roscoe Joe DO Work Phone: [facility] Comment on above: 34 weeks gestation o f ([facility]); Third trimester ([facility]); H/O gastric sleeve; Insulin controlled gestational diabetes mellitus (GDM) during , antepartum ([facility]) Start: 04-10-2025 End: 04-10-2025 ambulatory ROSCOE JOE Not Available Start: 04-10-2025 End: 04-10-2025 Bamboo flowsheet Roscoe Joe DO Work Phone: [facility] Start: 04-10-2025 End: 04-10-2025 Bamboo flowsheet Roscoe Joe DO Work Phone: [facility] Start: 04-09-2025 End: 04-09-2025 Telephone encounter Devika MALDONADO Work Phone: Maternal- Medicine at [facility] Start: 04-08-2025 End: 04-08-2025 Clinisync Result Encounter [...] encounter Blanquita Toney RN Maternal- Medicine at [facility] Start: 04-01-2025 End: 04-01-2025 ambulatory [facility] Start: 04-01-2025 End: 04-01-2025 Office outpatient visit 25 minutes Daisha Emelia Briseno PA-C Work Phone: Maternal- Medicine at [facility] Comment on above: Gestational diabetes requiring insulin (Primary Dx) Start: 03-27-2025 End: 03-27-2025 Bamboo flowsheet Roscoe Joe DO Work Phone: [facility] Start: 03-27-2025 End: 03-27-2025 Bamboo flowsheet Roscoe Joe DO Work Phone: [facility] Start: 03-27-2025 End: 03-27-2025 flow sheet Roscoe Joe DO Work Phone: [facility] Comment on above: Third trimester preg piper ([facility]); H/O gastric sleeve; Gestational diabetes mellitus (GDM), antepartum, gestational diabetes method of control unspecified ([facility]); 32 weeks gestation of ([facility]) Start: 03-27-2025 End: 03-27-2025 ambulatory ROSCOE JOE Not Available Start: 03-26-2025 End: 03-26-2025 Telephone encounter Devika MALDONADO Work Phone: Maternal- Medicine at [facility] Start: 03-19-2025 End: 03-19-2025 Telephone encounter Fatimah Quinn MALDONADO Maternal- Medicine at [facility] Start: 03-13-2025 End: 03-13-2025 flow sheet Rosy KRUGER Work Phone: [facility] Comment on above: 30 weeks gestation o f ([facility]); Third trimester ([facility]); H/O gastric sleeve; Gestational diabetes mellitus (GDM), antepartum, gestational diabetes method of control unspecified ([facility]) Start: 03-13-2025 End: 03-13-2025 ambulatory ROSY BARTON Not Available Start: 03-13-2025 End: 03-13-2025 Bamboo flowsheet Rosy KRUGER Work Phone: [facility] Start: 03-13-2025 End: 03-13-2025 Bamboo flowsheet Rosy KRUGER Work Phone: [facility] Start: 03-12-2025 End: 03-12-2025 ambulatory [facility] Start: 03-12-2025 End: 03-12-2025 Office outpatient visit 25 minutes Daisha E Maria Teresa ROBINS Work Phone: Maternal- Medicine at [facility] Comment on above: Gestational diabetes mellitus (GDM) in second trimester, gestational diabetes method of control unspecified (Primary Dx); Gestational diabetes requiring insulin Start: 03-05-2025 End: 03-05-2025 Telephone encounter Devika MALDONADO Work Phone: Maternal- Medicine at [facility] Start: 02-27-2025 End: 02-27-2025 flow sheet Roscoe Diaz DO Work Phone: [facility] Comment on above: 28 weeks gestation o f ([facility]); Third trimester ([facility]); H/O gastric sleeve; Gestational diabetes mellitus (GDM), antepartum, gestational diabetes method of control unspecified ([facility] Start: 02-27-2025 End: 02-27-2025 ambulatory ROSCOE JOE Not Available Start: 02-26-2025 End: 02-26-2025 Telephone encounter Devika MALDONADO Work Phone: Maternal- Medicine at [facility] Start: 02-14-2025 End: 02-14-2025 ambulatory Hien Giles RN Work Phone: Maternal- Medicine at [facility] Comment on above: Gestational diabetes mellitus (GDM) in second trimester, gestational diabetes method of control unspecified (Primary Dx) Start: 02-11-2025 End: 02-11-2025 flow sheet Rosy KRUGER Work Phone: [facility] Comment on above: Second trimester pre gnancy ([facility]); 26 weeks gestation of ([facility]); H/O gastric sleeve Start: 02-11-2025 End: 02-11-2025 ambulatory ROSY BARTON Not Available Start: 02-07-2025 End: 02-07-2025 Chart abstracting Scanning Provider External Maternal- Medicine at [facility] Start: 02-01-2025 End: 02-01-2025 Clinisync Result Encounter [...] [facility] Start: 11-08-2024 End: 11-08-2024 ambulatory ROCSOE JOE Not Available Start: 11-08-2024 End: 11-08-2024 [...] Office outpatient visit 25 minutes Edu Alvarez TANK TRUCK LOADER Work Phone: [facility] Comment on [...] Start: 06-29-2024 End: 06-29-2024 ambulatory DASHA LUJAN Facility:[facility] Start: 06-29-2024 End: 06-29-2024 Patient encounter procedure Berenice Zepeda APRN.SPORTS THERAPIST Work Phone: Internal Medicine Comment on above: Encounter for weight management (Primary Dx); Overweight Start: 03-06-2024 ambulatory Berenice wheatley SLURRY MIXER.SPORTS THERAPIST Work Phone: Internal Medicine Start: 03-06-2024 Patient encounter procedure Berenice Webbtter BRETT.SPORTS THERAPIST Work Phone: Internal Medicine Comment on above: Prescription Start: 09-23-2023 End: 09-23-2023 ambulatory Berenice Webbtter SLURRY MIXER.SPORTS THERAPIST Work Phone: Internal Medicine Comment on above: Encounter for weight management; Overweight (BMI 25.0-29.9) Start: 09-23-2023 End: 09-23-2023 Telemedicine consultation with patient Berenice Zepeda APRN.SPORTS THERAPIST Work Phone: [facility] Start: 08-23-2023 End: 08-23-2023 ambulatory BERENICE ZEPEDA Facility:[facility] Start: 07-26-2023 End: 07-26-2023 ambulatory DASHA LUJAN Facility:[facility] Start: 07-21-2023 End: 07-21-2023 ambulatory BERENICE ZEPEDA Facility:[facility] Start: 07-21-2023 End: 07-21-2023 Patient encounter procedure Berenice Webbradha WEST.SPORTS THERAPIST Work Phone: Internal Medicine Comment on above: Routine adult health maintenance (Primary Dx); IFG (impaired fasting glucose); Encounter for weight management; Class 1 obesity due to excess calories with body mass index (BMI) of 30.0 to 30.9 in adult, unspecified whether serious comorbidity present; Encounter for immunization; Immunity status testing Start: 07-21-2023 End: 07-21-2023 Patient encounter status Berenice Webbradha WEST.SPORTS THERAPIST Work Phone: [facility] Work Phone: Start: 06-29-2023 ambulatory Dasha Lujan MD Work Phone: Internal Medicine Comment on above: Prescription Start: 10-11-2022 End: 02-20-2023 ambulatory Reena Breaux Facility:[facility] Start: 10-11-2022 End: 10-11-2022 ambulatory MD Dasha Lujan Work Phone: [facility] Work Phone: Start: 10-11-2022 End: 10-11-2022 Patient encounter procedure MD Dasha Lujan Work Phone: [facility] Start: 06-10-2022 End: 06-10-2022 ambulatory Reena Breaux Facility:[facility] Start: 01-15-2022 End: 01-15-2022 Office outpatient new [...] Date Procedure Procedure Detail Performing Clinician Start: 05-08-2025 ALL CBC WITH AUTO DIFF Roscoe Joe DO Work Phone: Start: 05-06-2025 HMHP CBC WITH PLATEL ET NO DIFFERENTIAL Roscoe Joe DO Work Phone: Start: 05-01-2025 Urnls dip stick/tabl et rgnt [...] micrscp Roscoe Welcho DO Work Phone: Start: 01-15-2022 Adult depression scr eening assessment Dasha Lujan MD Work Phone: Plan of Treatment Date Care Activity Detail Author Start: 07-21-2033 DTaP,Tdap and Td Vaccines (8 - Td or Tdap) DTaP,Tdap and Td Vaccines (8 - Td or Tdap) [facility] Start: 07-21-2033 Urine microalbumin profile [facility] Start: 12-11-2027 Screening for malign ant neoplasm of cervix [facility] Start: 03-12-2026 Adult BMI Screening Adult BMI Screen ing [facility] Start: 03-12-2026 Tobacco Screening Tobacco Screening [facility] Start: 02-14-2026 Adult BMI Screening Adult BMI Screen ing [facility] Start: 05-01-2025 End: 05-01-2025 Telemedicine consultation with patient 05/01/2025 9:30 AM EDT Telemedicine Maternal- Medicine at [facility] [address] [place] [id number] Josiah Dillon, [facility] [address] [place] [address] Maternal- Medicine at [facility] Start: 05-01-2025 End: 05-01-2025 Patient encounter procedure 05/01/2025 9:20 AM EDT Routine [facility] [address] [place] [id number] Rosy Barton PA [address] [place] [address] [facility] Start: 04-24-2025 End: 04-24-2026 CULTURE, GROUP B STREP WITH SUSCEPTIBLITY CULTURE, GROUP B STREP WITH SUSCEPTIBLITY Lab Routine Third trimester ([facility]) Expected: 04/24/2025, Expires: 04/24/2026 [facility] Work Phone: Comment on above: Expected: [...] EDT Telemedicine Maternal- Medicine at [facility] [address] [place] [address] Daisha Briseno PA-C [address] [address] Maternal- Medicine at [facility] Start: 03-27-2025 End: 03-27-2025 Patient encounter procedure [facility] Comment on above: Arrived Start: 03-13-2025 End: 03-13-2025 Patient encounter procedure [facility] Comment on above: Arrived Start: 02-27-2025 End: 02-27-2025 Professional / ancillary services management 02/27/2025 1:00 PM EDT Ancillary Procedure [facility] [address] [place] [address] [facility] Start: 02-14-2025 End: 02-14-2025 ambulatory 02/14/2025 1:30 PM EDT Support Visit Maternal- Medicine at [facility] [address] [place] [phone] Hien Giles, RN [address] [address] Devika Pope LD [address] [place] [address] Maternal- Medicine at [facility] Start: 02-11-2025 End: 10-23-2025 US for US OB follow up transabdominal approach Imaging Routine H/O gastric sleeve Expected: 02/11/2025, Expires: 06/13/2025 [facility] Work Phone: Comment on above: Expected: 02/11/2025 , Expires: 06/13/2025 Start: 02-11-2025 End: 02-11-2025 Patient encounter procedure 02/11/2025 11:30 AM EDT Routine [facility] [address] [place] [address] Rosy Barton PA [address] [place] [address] [facility] Start: 01-30-2025 End: 01-30-2025 Professional / ancillary services management 01/30/2025 1:00 PM EDT Ancillary Procedure [facility] [address] [place] [address] [facility] Start: 01-15-2025 Pap Testing Pap Testing [facility] Start: 01-15-2025 Screening for malign ant neoplasm of cervix Pap Testing [facility] Start: 01-10-2025 End: 01-10-2026 CBC panel - Blood by Automated count CBC Lab Routine Diabetes mellitus screening Expected: 01/10/2025 (Approximate), Expires: 01/10/2026 [facility] Work Phone: Comment on above: Expected: 01/10/2025 (Approximate), Expires: 01/10/2026 Start: 01-10-2025 End: 01-10-2026 Measurement of glucose 1 hour after glucose challenge for glucose tolerance test Glucose tolerance, 1 hour Lab Routine Diabetes mellitus screening Expected: 01/10/2025 (Approximate), Expires: 01/10/2026 [facility] Comment on above: Expected: 01/10/2025 (Approximate), Expires: 01/10/2026 Start: 01-10-2025 End: 01-10-2025 Patient encounter procedure 01/10/2025 10:10 AM EDT Routine [facility] [address] [place] [address] Roscoe Diaz, DO [address] [place] [address] [facility] Start: 12-10-2024 End: 01-09-2025 [...] AM EDT Routine [facility] [address] [place] [phone] Rosy Barton PA [address] [place] [address] Arrived [facility] Comment on above: Arrived Start: 11-08-2024 End: 11-08-2024 Patient encounter procedure 11/08/2024 10:50 AM EDT Routine [facility] [address] [place] [phone] Roscoe Diaz, DO [address] [place] [address] [facility] Start: 10-18-2024 End: 10-18-2025 ABO/Rh ABO/Rh Lab Routine Missed menses , unspecified gestational age Expected: 10/18/2024 (Approximate), Expires: 10/18/2025 [facility] Comment on above: Expected: 10/18/2024 (Approximate), Expires: 10/18/2025 Start: 10-18-2024 End: 10-18-2025 Blood type and Indirect antibody screen panel - Blood Type and screen Lab Routine Missed menses , unspecified gestational age Expected: 10/18/2024 (Approximate), Expires: 10/18/2025 [facility] Comment on above: Expected: 10/18/2024 (Approximate), Expires: 10/18/2025 Start: 10-18-2024 End: 10-18-2025 Drugs of abuse panel - Urine by Screen method Rapid drug screen, urine Lab Routine , unspecified gestational age Encounter for supervision of normal first in first trimester Expected: 10/18/2024 (Approximate), Expires: 10/18/2025 [facility] Comment on above: Expected: 10/18/2024 (Approximate), Expires: 10/18/2025 Start: 10-18-2024 End: 10-18-2025 US Pelvis transvaginal [facility] Work Phone: Comment on above: Expected: 10/18/2024 , Expires: 10/18/2025 Start: 07-21-2024 Covid-19 Vaccine (#1) Covid-19 Vacci ne (#1) [facility] Comment on above: Postponed from 04/08 (Declined at this time) Start: 07-21-2024 Covid-19 Vaccine ( season) Covid-19 Vaccine ( season) [facility] Comment on above: Postponed from 04/22 (Declined at this time) Start: 04-22-2024 Covid-19 Vaccine ( season) Covid-19 Vaccine ( season) [facility] Start: 04-22-2024 Influenza vaccination Influenza Vacc ine (#1) [facility] Start: 02-19-2024 Influenza vaccination Influenza Vacc ine (#1) [facility] Comment on above: Postponed from 04/22 (Declined at this time) Start: 08-22-2023 Behavioral Health Screening Behavioral Health Screening [facility] Start: 08-22-2023 Depression Assessment Depression Ass essment [facility] Start: 07-21-2023 End: 10-20-2023 CBC W Auto Differential panel - Blood CBC + DIFF Lab Routine Routine adult health maintenance Expected: 07/21/2023, Expires: 10/20/2023 [facility] Work Phone: Comment on above: Expected: 07/21/2023 , Expires: 10/20/2023 Start: 07-21-2023 End: 10-20-2023 Comprehensive metabolic 2000 panel - Serum or Plasma COMP METABOLIC PANEL Lab Routine Routine adult health maintenance Expected: 07/21/2023, Expires: 10/20/2023 [facility] Work Phone: Comment on above: Expected: 07/21/2023 , Expires: 10/20/2023 Start: 07-21-2023 End: 10-20-2023 Hemoglobin A1c in Blood HGB A1C Lab Routine IFG (impaired fasting glucose) Routine adult health maintenance Expected: 07/21/2023, Expires: 10/20/2023 [facility] Work Phone: Comment on above: Expected: 07/21/2023 , Expires: 10/20/2023 Start: 07-21-2023 End: 10-20-2023 Hepatitis B virus surface Ab [Presence] in Serum HEP B SURF AB Lab Routine Immunity status testing Expected: 07/21/2023, Expires: 10/20/2023 [facility] Work Phone: Comment on above: Expected: 07/21/2023 , Expires: 10/20/2023 Start: 07-21-2023 End: 10-20-2023 Lipid 1996 panel - Serum or Plasma LIPID PANEL BASIC Lab Routine Routine adult health maintenance Expected: 07/21/2023, Expires: 10/20/2023 [facility] Work Phone: Comment on above: Expected: 07/21/2023 , Expires: 10/20/2023 Start: 07-06-2023 Hepatitis B Vaccine (1 of 3 - 3-dose series) Hepatitis B Vaccine (1 of 3 - 3-dose series) [facility] Comment on above: Postponed from 10/09 (Declined at this time) Start: 04-22-2023 Influenza vaccination Influenza Vacc ine (#1) [facility] Start: 01-15-2023 Adult depression screening assessment DEPRESSION SCREENING [facility] Start: 01-15-2023 COVID-19 VACCINE (#1) COVID-19 VACCI NE (#1) [facility] Comment on above: Postponed from 10/09 (Declined at this time) Start: 01-15-2023 PAP TESTING PAP TESTING [facility] Start: 01-15-2023 Screening for malign ant neoplasm of cervix Cervical Cancer Screening [facility] Start: 2022 HPV Testing HPV Testing [facility] Start: 2022 Screening for malign ant neoplasm of cervix [facility] Start: 08-22-2022 Depression Assessment Depression Ass essment [facility] Start: 04-22-2022 Influenza vaccination INFLUENZA (Sea son Ended) [facility] Start: 01-15-2022 End: 03-17-2022 Hemoglobin A1c/Hemoglobin.total in Blood [facility] Work Phone: Comment on above: Expected: 01/15/2022 , Expires: 03/17/2022 Start: 2013 Screening for malign ant neoplasm of cervix Pap Smear [facility] Start: 2011 DTaP,Tdap and Td Vaccines (1 - Tdap) DTaP,Tdap and Td Vaccines (1 - Tdap) [facility] Start: 2011 Urine microalbumin profile [facility] Start: 2010 Adult BMI Follow Up Plan Adult BMI Follow Up Plan [facility] Start: 2010 Adult BMI Screening Adult BMI Screen ing [facility] Start: 2010 Anxiety Screening Anxiety Screening [facility] Start: 2010 Depression Screening Depression Scre ening [facility] Start: 2004 Depression Screening Depression Scre ening [facility] Start: 2004 Tobacco Screening Tobacco Screening [facility] Start: 04-08-1993 Covid-19 Vaccine (#1) Covid-19 Vacci ne (#1) [facility] Start: 1992 Hepatitis B Vaccine (1 of 3 - 3-dose series) Hepatitis B Vaccine (1 of 3 - 3-dose series) [facility] Bacteria identified in Urine by Culture Urine culture Microbiology Routine Missed menses Ordered: 10/18/2024 [facility] Comment on above: Ordered: 10/18/2024 CBC W Auto Different ial panel - Blood CBC and differential Lab Routine Missed menses , unspecified gestational age Ordered: 10/18/2024 [facility] Comment on above: Ordered: 10/18/2024 CHLAMYDIA TRACHOMATI S (GENITO/STI) CHLAMYDIA TRACHOMATIS (GENITO/STI) Lab Routine Exposure to STD Ordered: 12/10/2024 [facility] Comment on above: Ordered: 12/10/2024 Cytology Cervical or vaginal smear or scraping study Pap Smear Pathology and Cytology Routine Well woman exam with routine gynecological exam Ordered: 12/10/2024 [facility] Comment on above: Ordered: 12/10/2024 Hemoglobin A1c/Hemoglobin.total in Blood Hemoglobin A1c Lab Routine Missed menses , unspecified gestational age Ordered: 10/18/2024 [facility] Comment on above: Ordered: 10/18/2024 Hepatitis B virus surface Ag [Presence] in Serum or Plasma by Immunoassay Hepatitis B surface antigen Lab Routine Missed menses , unspecified gestational age Ordered: 10/18/2024 [facility] Comment on above: Ordered: 10/18/2024 Hepatitis C virus Ab [Presence] in Serum or Plasma by Immunoassay Hepatitis C antibody Lab Routine Missed menses , unspecified gestational age Ordered: 10/18/2024 [facility] Comment on above: Ordered: 10/18/2024 HIV-1/HIV-2 antigen/antibody combination immunoassay HIV-1 and HIV-2 antibodies Lab Routine Missed menses , unspecified gestational age Ordered: 10/18/2024 [facility] Comment on above: Ordered: 10/18/2024 Human papilloma viru s DNA [Presence] in Unspecified specimen by Probe with amplification HPV DNA probe, amplified Microbiology Routine Well woman exam with routine gynecological exam Ordered: 12/10/2024 [facility] Comment on above: Ordered: 12/10/2024 Neisseria gonorrhoea e DNA [Presence] in Unspecified specimen by ALPA with probe detection Neisseria gonorrhea DNA probe, direct Lab Routine Exposure to STD Ordered: 12/10/2024 [facility] Comment on above: Ordered: 12/10/2024 Reagin Ab [Presence] in Serum by RPR RPR Lab Routine Missed menses , unspecified gestational age Ordered: 10/18/2024 [facility] Comment on above: Ordered: 10/18/2024 Rubella antibody, IgG Rubella an tibody, IgG Lab Routine Missed menses , unspecified gestational age Ordered: 10/18/2024 [facility] Comment on above: Ordered: 10/18/2024 SURESWAB(R) ADVANCED VAGINITIS PLUS, TMA SURESWAB(R) ADVANCED VAGINITIS PLUS, TMA Pathology and Cytology Routine Exposure to STD Ordered: 12/10/2024 [facility] Work Phone: Comment on above: Ordered: 12/10/2024 Thiamine [Moles/volu me] in Blood [facility] Immunizations Immunization Date Immunization Notes Care Provider Salvatore hargrove 07-21-2023 tetanus toxoid, redu sloane diphtheria toxoid, and acellular pertussis vaccine, adsorbed Berenice Zepeda SLURRY MIXER.SPORTS THERAPIST Work Phone: [facility] 05-03-2011 meningococcal polysaccharide (groups A, C, Y and W-135) diphtheria toxoid conjugate vaccine (MCV4P) Berenice Zepeda SLURRY MIXER.SPORTS THERAPIST Work Phone: [facility] 05-03-2011 tetanus toxoid, redu sloane diphtheria toxoid, and acellular pertussis vaccine, adsorbed Berenice Zepeda SLURRY MIXER.SPORTS THERAPIST Work Phone: [facility] 03-29-2011 human papilloma viru s vaccine, quadrivalent Berenice Evelyn SLURRY MIXER.SPORTS THERAPIST Work Phone: [facility] 11-26-2010 human papilloma viru s vaccine, quadrivalent Berenice Evelyn SLURRY MIXER.SPORTS THERAPIST Work Phone: [facility] 09-28-2010 human papilloma viru s vaccine, quadrivalent Berenice Evelyn SLURRY MIXER.SPORTS THERAPIST Work Phone: [facility] 04-30-1998 diphtheria, tetanus toxoids and acellular pertussis vaccine, unspecified formulation Berenice Zepeda SLURRY MIXER.SPORTS THERAPIST Work Phone: [facility] 04-30-1998 measles, mumps and rubella virus vaccine Berenice Evelyn SLURRY MIXER.SPORTS THERAPIST Work Phone: [facility] 04-30-1998 trivalent poliovirus vaccine, live, oral Berenice Evelyn SLURRY MIXER.SPORTS THERAPIST Work Phone: [facility] 06-07-1994 diphtheria, tetanus toxoids and acellular pertussis vaccine, unspecified formulation Berenice Evelyn SLURRY MIXER.SPORTS THERAPIST Work Phone: [facility] 06-07-1994 hepatitis B vaccine, pediatric or pediatric/adolescent dosage Berenice Evelyn SLURRY MIXER.SPORTS THERAPIST Work Phone: [facility] 06-07-1994 trivalent poliovirus vaccine, live, oral Berenice Evelyn SLURRY MIXER.SPORTS THERAPIST Work Phone: [facility] 03-01-1994 haemophilus influenz ae type b vaccine, conjugate unspecified formulation Berenice Evelyn SLURRY MIXER.SPORTS THERAPIST Work Phone: [facility] 03-01-1994 hepatitis B vaccine, pediatric or pediatric/adolescent dosage Berenice Evelyn SLURRY MIXER.SPORTS THERAPIST Work Phone: [facility] 03-01-1994 measles, mumps and rubella virus vaccine Berenice Evelyn SLURRY MIXER.SPORTS THERAPIST Work Phone: [facility] 07-27-1993 diphtheria, tetanus toxoids and pertussis vaccine Berenice Evelyn SLURRY MIXER.SPORTS THERAPIST Work Phone: [facility] 07-27-1993 haemophilus influenz ae type b vaccine, conjugate unspecified formulation Berenice Evelyn SLURRY MIXER.SPORTS THERAPIST Work Phone: [facility] 07-27-1993 hepatitis B vaccine, pediatric or pediatric/adolescent dosage Berenice Evelyn SLURRY MIXER.SPORTS THERAPIST Work Phone: [facility] 03-16-1993 diphtheria, tetanus toxoids and pertussis vaccine Berenice Evelyn SLURRY MIXER.SPORTS THERAPIST Work Phone: [facility] 03-16-1993 haemophilus influenz ae type b vaccine, conjugate unspecified formulation Berenice Evelyn SLURRY MIXER.SPORTS THERAPIST Work Phone: [facility] 03-16-1993 trivalent poliovirus vaccine, live, oral Berenice Evelyn SLURRY MIXER.SPORTS THERAPIST Work Phone: [facility] 1992 diphtheria, tetanus toxoids and pertussis vaccine Dilliner Evelyn SLURRY MIXER.SPORTS THERAPIST Work Phone: [facility] 1992 haemophilus influenz ae type b vaccine, conjugate unspecified formulation Berenice Evelyn SLURRY MIXER.SPORTS THERAPIST Work Phone: [facility] 1992 trivalent poliovirus vaccine, live, oral Berenice Evelyn SLURRY MIXER.SPORTS THERAPIST Work Phone: [facility] Payers Date Payer Category Payer Blue Cross Blue Shield [id number] [id number] 2023 Unknown [id number] 2023 Private Health Insurance [employer] [id number] 2023 Unknown [id number] 2022 Self-pay 2022 Unknown [id number] 2019 Blue Cross Blue Shie ld Managed Care - Other ..[id number] 2019 Unknown [employer] BLUE CARD PPO OOS [id number] 2019-Present [phone] [address] [place] [address] PPO [id number] 2019 Unknown [id number] 1.13.159.2. [id number] 1992 Unknown [id number] 2.16.840.1.453362.3.579.2. 1286 1992 Unknown [id number] 2.16.840.1.913851.3.579.2. 1286 1992 Unknown [id number] 2.16.840.1.460138.3.579.2. 128 1992 Unknown [id number] 2.16.840.1.704404.3.579.2. 1285 1992 Unknown [id number] 2.16.840.1.082862.3.579.2. 1258 1992 Unknown [id number] 2.840.1.097030.3.579.2. 1258 1992 Unknown [id number] 2.16.840.1.400839.3.579.2. 1258 1992 Unknown [id number] 2.16.840.1.237639.3.579.2. 1258 1992 Unknown [id number] 2.16.840.1.061703.3.579.2. 1258 1992 Unknown [id number] 2.16.840.1.285007.3.579.2. 1258 1992 Unknown [id number] 2.16.840.1.242194.3.579.2. 9 1992 Unknown [id number] 2.16.840.1.919745.3.579.2. 1258 1992 Unknown [id number] 2.16.840.1.841935.3.579.2. 9 1992 Unknown [id number] 2.16.840.1.521539.3.579.2. 1258 1992 Unknown [id number] 2.16.840.1.097458.3.579.2. 1259 1992 Unknown [id number] 2.16.840.1.120435.3.579.2. 1259 1992 Unknown [id number] 2.16.840.1.896928.3.579.2. 1259 1992 Unknown [id number] 2.16.840.1.565845.3.579.2. 9 1992 Unknown [id number] 2.16.840.1.527880.3.579.2. 1259 1992 Unknown [id number] 2.16.840.1.028337.3.579.2. 9 1992 Unknown [id number] 2.16.840.1.030286.3.579.2. 1259 Unknown [id number] 2.16.840.1.117088.3.579.2. 531 Unknown [id number] 2.16.840.1.918018.3.579.2. 531 Social History Date Type [facility] Start: 1990 Sex Assigned At Not on file [facility] Start: 01-15-2022 End: 10-17-2023 Tobacco smoking status AZIS Never smoked tobacco [facility] Start: 01-15-2022 End: 10-17-2023 Tobacco use and exposure Smokeless tobacco non-user [facility] Start: 01-15-2022 End: 08-23-2023 Alcohol intake Current drinker of alcohol (finding) [facility] Start: 01-15-2022 End: 07-25-2024 Alcohol intake [facility] Start: 01-12-2022 History SDOH Alcohol Frequency 2 [facility] Start: 01-12-2022 History SDOH Alcohol Std Drinks 1 [facility] Start: 01-15-2022 History SDOH Alcohol Comment occ. drink [facility] Start: 01-12-2022 History SDOH Social Connections Phone 5 [facility] Start: 01-12-2022 History SDOH Social Connections Get Together 4 [facility] Start: 01-12-2022 History SDOH Social Connections Living 7 [facility] Start: 01-12-2022 History SDOH Physical Activity MPS 3 [facility] Start: 1990 Sex Assigned At Female [facility] Start: 01-12-2022 End: 07-25-2024 Social connection and isolation panel [facility] Do you belong to any clubs or organizations such as cheondoism groups, unions, fraternal or athletic groups, or school groups? No [facility] Are you now , , , , never or living with a partner? Never [facility] How often to you hav e a drink containing alcohol? Monthly or less [facility] How many standard dr inks containing alcohol do you have on a typical day? 1 or 2 [facility] How often do you hav e 6 or more drinks on 1 occasion? Never [facility] How hard is it for y ou to pay for the very basics like food, housing, medical care, and heating Not hard at all [facility] Do you feel stress - tense, restless, nervous, or anxious, or unable to sleep at night because your mind is troubled all the time - these days [OSQ] Not at all [facility] (I/We) worried wheshelly er (my/our) food would run out before (I/we) got money to buy more. Never true [facility] Start: 01-12-2022 Gender identity Identifies as female gender (finding) [facility] Are you now , , , , never or living with a partner? Living with partner [facility] How hard is it for y ou to pay for the very basics like food, housing, medical care, and heating Not very hard [facility] Do you feel stress - tense, restless, nervous, or anxious, or unable to sleep at night because your mind is troubled all the time - these days [OSQ] To some extent [facility] The food that (I/we) bought just didn't last, and (I/we) didn't have money to get more. DK or Refused [facility] Start: 10-17-2023 End: 05-01-2025 Alcoholic beverage intake Ex-drinker (finding) [facility] Start: 10-17-2023 Alcohol Comment Caffeine intake: 1cup coffee/ day [facility] Start: 09-14-2023 [facility] Start: 04-22-2015 Sex Female (finding) [facility] Medical Equipment Procedure Code Equipment Code Equipment Origin al Text Equipment Identifier Dates 1 strip by In Vi tro route Daily Use in the morning prior to breakfast, 1 hour after each meal for a total of 4times daily. [id number] Start: 02-04-2025 End: 03-06-2025 1 each by In Vit ro route Daily Use to check FSBS four times daily [id number] Start: 02-04-2025 End: 03-06-2025 Use to inject insulin nightly [id number] Start: 03-12-2025 Goals Date Patient Goal Desired Activity /State Personal health goal Clinical Notes 01-08-2022 to 05-01-2025 Adelaida Dugan, TANK TRUCK LOADER - 05/01/2025 9:20 AM Ada Dillon APRN-GIORGI - 05/01/2025 8:00 AM Aldo King LPN - 04/24/2025 11:30 AM EDTTelephone Encounter - Devika Pope, JOEL - 04/23/2025 12:38 PM EDT Note Date [...] nursing note reviewed. Exam conducted with a tube draw helper present. Vitals: Estimated body mass index is 38.11 kg/m as calculated from the following: Height as of 24: 5' 3 . Weight as of this encounter: 215 lb 1.9 oz. BP: 110/60 Patient's last menstrual period was 08/12/2024. ASSESSMENT & PLAN ICD-10-CM 1. 37 weeks gestation of ([facility]) Z3A.37 POCT urinalysis dipstick manually resulted 2. Third trimester ([facility]) Z34.93 POCT urinalysis dipstick manually resulted 3. H/O gastric sleeve Z90.3 4. Insulin controlled gestational diabetes mellitus (GDM) during , antepartum ([facility]) O24.414 Return OB: Patient presents today [...] Adelaida Dugan NP on behalf of: SLICK Maitas documented in this encounter [facility] 05-01-2025 History of Present illness Narrative REASON FOR OFFICE VISIT: Video Visit via Real-time Synchronous Audiovisual Provider Location: [facility] MAT[facility]- MEDICINE AT [address] [id number] Patient Location: Patient's home Video Visit Consent [...] that there are some limitations compared to idcg-dr-bwpv evaluations. The patient consented to the presence [...] pain. +. She is being followed at [facility] due to GDMA2. States she is [...] nightly, Disp: 100 each, Rfl: 2 25-IRON IHI-[id number]-[id number] ORAL, Take 1 tablet by mouth in the morning., Disp: , Rfl: LABS: No results found for: GLUF , MICROALBUR , LDLCALC , CREATININE No results found for: TSH , T3 , TOTALT4 , THYROIDAB No results found for: [id number] No results found for: CREATININE , BUN [...] by e-mail to: or by fax to: [phone] TIME OF CONSULTATION: 20 minutes with the patient, >50% in discussion and counseling, coordination of care which was [id number], review of records and communication back to referring provider. BRIE Farias 05/01/25 0817 documented [facility] History of Present illness Narrative Reason for Appointment: Patient ID: Caryl Zamarripa is a 34 y.o. female who presents for Routine Visit Patient presents today for Return OB appointment. MEDICATIONS Current Outpatient Medications Medication Instructions Alcohol Swabs (Alcohol Prep Pad) 70 % pads 1 Pad, Topical, Daily, Use four times daily to check FSBS. aspirin 81 mg, Daily Blood Glucose Monitoring Suppl ([employer] Glucometer) w/Device kit 1 kit, Does not [...] nursing note reviewed. Exam conducted with a tube draw helper present. Vitals: Estimated body mass index is 37.22 kg/m as calculated from the following: Height as of 07/25/24: 5' 3 . Weight as of this encounter: 210 lb 1.9 oz. BP: 116/74 Patient's last menstrual period was 08/12/2024. ASSESSMENT & PLAN ICD-10-CM 1. Third trimester ([facility]) Z34.93 POCT urinalysis dipstick manually resulted CULTURE, GROUP B STREP WITH SUSCEPTIBLITY CULTURE, GROUP B STREP WITH SUSCEPTIBLITY 2. 36 weeks gestation of ([facility]) Z3A.36 POCT urinalysis dipstick manually resulted [...] Roscoe Diaz DO documented in this encounter [facility] 04-23-2025 Miscellaneous Notes Called regarding blood sugar [...] blood sugars weekly. documented in this encounter [facility] 04-23-2025 Telephone encounter Note Called regarding [...] sugars and send in blood sugars weekly. [facility] Work Phone: 04-15-2025 Miscellaneous Notes Received BG results and all are in target range. Called and left message of praise for all efforts and to call if questions. To send next week again. No changes. documented in this encounter [facility] 04-15-2025 Telephone encounter Note Received BG results and all are in target range. Called and left message of praise for all efforts and to call if questions. To send next week again. No changes. [facility] 04-10-2025 History of Present illness Narrative [...] 81 mg, Daily Blood Glucose Monitoring Suppl ([employer] Glucometer) w/Device kit 1 kit, Does not [...] nursing note reviewed. Exam conducted with a tube draw helper present. Vitals: Estimated body mass index is 37.22 kg/m as calculated from the following: Height as of 24: 5' 3 . Weight as of this encounter: 210 lb 1.9 oz. BP: 120/70 Patient's last menstrual period was 08/12/2024. ASSESSMENT & PLAN ICD-10-CM 1. 34 weeks gestation of ([facility]) Z3A.34 POCT urinalysis dipstick manually resulted 2. Third trimester ([facility]) Z34.93 POCT urinalysis dipstick manually resulted 3. H/O gastric sleeve Z90.3 4. Insulin controlled gestational diabetes mellitus (GDM) during , antepartum ([facility]) O24.414 Return OB: Patient presents today [...] Roscoe Diaz DO documented in this encounter [facility] 04-09-2025 Miscellaneous Notes Called regarding blood sugar logs from 04/01/2025-04/07/2025 but the call went straight to voicemail. She had 4 elevated post prandial blood sugars, no pattern, but she did note that they were most likely related to higher carbohydrate meals. Continue with 10 units of Lantus and sending blood sugars weekly. Reminded to schedule a follow-up visit with a [facility] provider for the second week in April. documented in this encounter [facility] 04-09-2025 Telephone encounter Note Called regarding blood sugar logs from 04/01/2025-04/07/2025 but the call went straight to voicemail. She had 4 elevated post prandial blood sugars, no pattern, but she did note that they were most likely related to higher carbohydrate meals. Continue with 10 units of Lantus and sending blood sugars weekly. Reminded to schedule a follow-up visit with a [facility] provider for the second week in April. [facility] [facility] Work Phone: 04-01-2025 Miscellaneous Notes Left message for patient to call MF back to reschedule a 4 week video visit shobha Marr. documented [facility] this encounter [facility] 04-01-2025 Telephone encounter Note Left message for patient to call MFM back to reschedule a 4 week video visit shobha Marr. [facility] 04-01-2025 History of Present illness Narrative [...] nightly, Disp: 100 each, Rfl: 2 25-IRON UOX-[id number]-JAB ORAL, Take 1 tablet by mouth in [...] Delivery recommendations : - Recommend delivery at [id number] - reviewed with pateint - Discuss delivery [...] to us weekly by e-mail to: [email or web address] or by fax to: [phone] Daisha Briseno PA-C [facility] Office phone: [phone] Daisha Briseno PA-C 04/01/25 1331 documented in this encounter [facility] 04-01-2025 Miscellaneous Notes Left message to remind patient of video visit today at 10 AM. Call back number given to reschedule if unable to keep appointment. documented in this encounter [facility] 04-01-2025 Telephone encounter Note Left message to remind patient of video visit today at 10 AM. Call back number given to reschedule if unable to keep appointment. [facility] 03-27-2025 History of Present illness Narrative [...] nursing note reviewed. Exam conducted with a tube draw helper present. Vitals: Estimated body mass index is 36.28 kg/m as calculated from the following: Height as of 24: 5' 3 . Weight as of this encounter: 204 lb 12.8 oz. BP: 116/72 Patient's last menstrual period was 08/12/2024. ASSESSMENT & PLAN ICD-10-CM 1. Third trimester ([facility]) Z34.93 POCT urinalysis dipstick manually resulted 2. H/O gastric sleeve Z90.3 POCT urinalysis dipstick manually resulted 3. Gestational diabetes mellitus (GDM), antepartum, gestational diabetes method of control unspecified ([facility]) O24.419 POCT urinalysis dipstick manually resulted 4. 32 weeks gestation of ([facility]) Z3A.32 POCT urinalysis dipstick manually resulted [...] appointment. Patient continues to send FSBS to [facility] and doing well and [facility] continues to manage her Lantus dosing. She will begin NST/ BPP this week. Documented by Adelaida Dugan NP on behalf of: Roscoe Diaz DO documented in this encounter [facility] 03-26-2025 Miscellaneous Notes Called regarding blood sugar logs from 03/18/2025-03/24/2025 but received voicemail. Caryl had one elevated fasting blood sugar ( she may not of had a snack the night before) and three elevated blood sugars after dinner. She is taking 10 units of Lantus in the evening. Will send a [employer] message. documented in this encounter [facility] 03-26-2025 Telephone encounter Note Called regarding blood sugar logs from 03/18/2025-03/24/2025 but received voicemail. Caryl had one elevated fasting blood sugar ( she may not of had a snack the night before) and three elevated blood sugars after dinner. She is taking 10 units of Lantus in the evening. Will send a MyChart message. [employer] [facility] Work Phone: 03-19-2025 Miscellaneous Notes Blood glucose [...] now in target. documented in this encounter [facility] 03-19-2025 Telephone encounter Note Blood glucose log from 03/11/25 to 03/17/25 received. Patient did not answer. I left a voicemail asking her to check for a new MyChart message that I am going to leave with questions about her dinner values (4 out of 7 were still elevated). Patient started Lantus on 03/12/25 and all fasting BG now in target. [facility] 03-13-2025 History of Present illness Narrative [...] PLAN ICD-10-CM 1. 30 weeks gestation of ([facility]) Z3A.30 POCT urinalysis dipstick manually resulted 2. Third trimester ([facility]) Z34.93 POCT urinalysis dipstick manually resulted 3. H/O gastric sleeve Z90.3 4. Gestational diabetes mellitus (GDM), antepartum, gestational diabetes method of control unspecified ([facility]) O24.419 Return OB: Patient presents today [...] of: SLICK Matias documented in this encounter [facility] 03-12-2025 History of Present illness Narrative Headache/epigastric [...] problems outside of . Patient works at [employer] she stands/sits throughout day, works 630a-3p BP [...] nausea or vomiting., Disp: , Rfl: 25-IRON MYC-NPYLQ-BMR ORAL, Take 1 tablet by mouth in [...] more likely to fail compared to insulin. detention data on children whose mothers took oral [...] Delivery recommendations : - Recommend delivery at [id number] - reviewed with pateint - Discuss delivery [...] to us weekly by e-mail to: [email or web address] or by fax to: [phone] Daisha Briseno PA-C Maternal- Medicine Office phone: [phone] Daisha Briseno PA-C 03/12/25 1500 Summary: MFM [...] time 10 minutes. [facility] 03-05-2025 Miscellaneous Notes Called regarding blood sugar logs from 02/25/2025-03/03/2025 but the call went directly to voicemail. Caryl had 1 one elevated fasting blood sugar, 1 elevated blood sugar after breakfast, one elevated blood sugar after lunch, and 4 elevated blood sugars after dinner. Will send a [employer] message. documented [facility] this encounter [facility] 03-05-2025 Telephone encounter Note Called regarding blood sugar logs from 02/25/2025-03/03/2025 but the call went directly to voicemail. Caryl had 1 one elevated fasting blood sugar, 1 elevated blood sugar after breakfast, one elevated blood sugar after lunch, and 4 elevated blood sugars after dinner. Will send a MyChart message. [facility] Work Phone: 02-27-2025 History of Present illness Narrative Reason for Appointment: Patient ID: Caryl Zamarripa is a 34 y.o. female who presents for Routine Visit Patient presents today for Return OB appointment. MEDICATIONS Current Outpatient Medications Medication Instructions Alcohol Swabs (Alcohol Prep Pad) 70 % pads 1 Pad, Topical, Daily, Use four times daily to check FSBS. Blood Glucose Monitoring Suppl ([employer] Glucometer) w/Device kit 1 kit, Does not [...] nursing note reviewed. Exam conducted with a tube draw helper present. Vitals: Estimated body mass index is 36.1 kg/m as calculated from the following: Height as of 07/25/24: 5' 3 . Weight as of this encounter: 203 lb 12.8 oz. BP: 110/60 Patient's last menstrual period was 08/12/2024. ASSESSMENT & PLAN ICD-10-CM 1. 28 weeks gestation of ([facility]) Z3A.28 POCT urinalysis dipstick manually resulted 2. Third trimester ([facility]) Z34.93 POCT urinalysis dipstick manually resulted 3. H/O gastric sleeve Z90.3 4. Gestational diabetes mellitus (GDM), antepartum, gestational diabetes method of control unspecified ([facility]) O24.419 Return OB: Patient presents today [...] Roscoe Diaz DO documented in this encounter [facility] 02-26-2025 Miscellaneous Notes Called regarding blood sugar [...] a MyChart message. documented in this encounter [email or web address] 02-26-2025 Telephone encounter Note Called regarding blood [...] questions. Will also send a MyChart message. [employer] Work Phone: 02-14-2025 Group counseling note Patient: [...] of food logs and blood glucoses to [email or web address], next Tuesday night/Tuesday morning. Please refer to health habits for other goals. Breakfast 6-6:30 AM 15-25 grams of CHO, Snack 9 AM 15-30 grams of CHO, Lunch 11:30-Noon 45 grams of CHO, Snack 2-3 PM 15-30 grams of CHO, Dinner 6 PM 45 grams of CHO, HS Snack 8-9 PM 15-30 grams of CHO. Face to face time was 70 minutes. [employer] [facility] Work Phone: 02-14-2025 Miscellaneous Notes Patient: [...] of food logs and blood glucoses to [email or web address], next Tuesday/Tuesday morning. Please refer to health [...] was 70 minutes. documented in this encounter [email or web address] 02-11-2025 History of Present illness Narrative Reason for Appointment: Patient ID: Caryl Zamarripa is a 34 y.o. female who presents for Routine Visit Patient presents today for Return OB appointment. MEDICATIONS Current Outpatient Medications Medication Instructions Alcohol Swabs (Alcohol Prep Pad) 70 % pads 1 Pad, Topical, Daily, Use four times daily to check FSBS. Blood Glucose Monitoring Suppl ([employer] Glucometer) w/Device kit 1 kit, Does not [...] nursing note reviewed. Exam conducted with a tube draw helper present. Vitals: Estimated body mass index is 35.87 kg/m as calculated from the following: Height as of 07/25/24: 5' 3 . Weight as of this encounter: 202 lb 8 oz. BP: 110/60 Patient's last menstrual period was 08/12/2024. ASSESSMENT & PLAN ICD-10-CM 1. Second trimester ([facility]) Z34.92 POCT urinalysis dipstick manually resulted 2. 26 weeks gestation of ([facility]) Z3A.26 3. H/O gastric sleeve Z90.3 [...] Adelaida Dugan NP documented in this encounter [facility] 01-10-2025 History of Present illness Narrative Reason [...] nursing note reviewed. Exam conducted with a tube draw helper present. Vitals: Estimated body mass index is [...] Roscoe Diaz DO documented in this encounter [facility] 12-10-2024 History of Present illness Narrative Reason [...] nursing note reviewed. Exam conducted with a tube draw helper present. Vitals: Estimated body mass index is [...] Ana Costello MA on behalf of: SLICK Maitas documented in this encounter [facility] 11-08-2024 History of Present illness Narrative Reason [...] Roscoe Diaz DO documented in this encounter [facility] 10-18-2024 History of Present illness Narrative Reason [...] or undercooked meat, and stay away from [facility]. Patient has also been advised [...] Monika Mesa LPN documented in this encounter [facility] 08-02-2024 History of Present illness Narrative Images from the original note were not included. [address] , [address] [facility], [address] P: [phone] F: [phone] HPI Historian of HPI: patient Caryl Zamarripa [...] Left Turbinates: Enlarged and swollen. Mouth/Throat: Lips: [place]. Mouth: Mucous membranes are moist. Pharynx: Oropharynx [...] tablet; Refill: 0 documented in this encounter [facility] 07-25-2024 History of Present illness Narrative General [...] Use: Not At Risk (07/19/2023) Received from [facility] AUDIT-C Frequency of Alcohol Consumption: Monthly or less Average Number of Drinks: 1 or 2 Frequency of Binge Drinking: Never Depression: Not at risk (06/29/2024) Received from [facility] PHQ-2 PHQ-2 score: 0 Physical Activity: Insufficiently Active (07/19/2023) Received from [facility] Exercise Vital Sign Days of Exercise [...] Alexandro Jain DO documented in this encounter [facility] 06-29-2024 Note HNO ID: [id number] Author: BERENICE ZEPEDA APRN.SPORTS THERAPIST Service: ? Author Type: Nurse Practitioner Type: [...] - PHENTERMINE 37.5 MG TABLET Berenice Zepeda APRN.[facility] 06-29-2024 History of Present illness [...] - PHENTERMINE 37.5 MG TABLET Berenice Zepeda APRN.SPORTS THERAPIST documented in this encounter [facility] 03-06-2024 Telephone encounter Note Order formatted Please advise [facility] 03-06-2024 Miscellaneous Notes Order formatted Please advise documented in this encounter [facility] 09-23-2023 Note HNO ID: [id number] Author: BERENICE ZEPEDA APRN.CNP Service: ? Author Type: Nurse Practitioner Type: Progress Notes Filed: 09/23/2023 15:52 Note Text: VIRTUAL VISIT PROGRESS NOTE This is a virtual visit using MyChart Zoom Video Visit. It required patient-provider interaction for the medical decision making as documented below. I have communicated my name and active licensure. The patient's identity and physical location were verified at the time of this visit. Either the patient or their legal marketing representative has been informed of the risks [...] Outpatient Medications Medication Sig Omeprazole Magnesium (ACID LABORER CARPENTRY DOCK, OMEPRAZOLE,) 20 mg cpDR No current facility-administered [...] Instructions on file for this visit. Berenice Zpeeda APRN.[facility] 09-23-2023 History of Present illness Narrative VIRTUAL VISIT PROGRESS NOTE This is a virtual visit using Skypaz[employer] Zoom Video Visit. It required patient-provider interaction for the medical decision making as documented below. I have communicated my name and active licensure. The patient's identity and physical location were verified at the time of this visit. Either the patient or their legal marketing representative has been informed of the risks [...] Outpatient Medications Medication Sig Omeprazole Magnesium (ACID LABORER CARPENTRY DOCK, OMEPRAZOLE,) 20 mg cpDR No current facility-administered [...] Berenice Zepeda APRN.CNP documented in this encounter [facility] 08-23-2023 Note HNO ID: [id number] Author: BERENICE ZEPEDA APRN.CNP Service: ? Author [...] PHENTERMINE 37.5 MG TABLET Berenice Zepeda APRN.[facility] 07-21-2023 Note HNO ID: [id number] Author: Berenice Zepeda APRN.[facility]ORGI Service: ? Author Type: Nurse Practitioner Type: Progress Notes Filed: 07/22/2023 10:16 AM Note Text: Caryl Zamarripa is a 32 year old female here today for review of established medical problems as well as comprehensive physical examination. Obesity S/p gastric sleeve surgery in 03/2022 at [facility] in [place] Down about 70lb, has reached plateau Gym 4 days per week with cardio (treadmill, elliptical) Maybe not enough water Tries to focus on more protein, lower carbs Last 10 Encounter Wt Readings: Date: Wt: 07/21/2023 80.1 kg (176 lb 8 oz) 07/06/2022 81.6 kg (180 lb) 01/15/2022 104.3 kg (230 lb) [facility] control HM needs: Hepatitis B Vaccine(1 of 3 - 3-dose series) Never done Depression Assessment Never done HPV Testing Never done PAST MEDICAL HISTORY Diagnosis Date GERD (gastroesophageal reflux disease) Prediabetes PAST SURGICAL HISTORY Procedure Laterality Date PT ED BARIATRIC AND METABOLIC gastric sleeve 03/2022 ALLERGIES Patient has no known allergies. MEDICATIONS Omeprazole Magnesium (ACID LABORER CARPENTRY DOCK, OMEPRAZOLE,) 20 mg cpDR Phentermine HCl 37.5 [...] No history of dysuria, frequency or incontinence FIRE MANAGER: Negative for abnormal vaginal bleeding, abnormal [...] and symmetric. Sensation grossly intact. Breast/Pelvic: Per FIRE MANAGER ASSESSMENT/PLAN: 1. Routine adult health maintenance - ICD9: V70.0, ICD10: Z00.00 (primary diagnosis) - Counseled on healthy diet and regular exercise - Calcium intake with supplements or by diet of 1000 mg/day for under 50, 6736-2793 mg/day for 50+ - Discussed need and [...] comorbidity present - (more content not included)... [facility] 07-21-2023 History of Present illness Narrative Caryl Zamarripa is a 32 year old female here today for review of established medical problems as well as comprehensive physical examination. Obesity S/p gastric sleeve surgery in 03/2022 at [facility] in [place] Down about 70lb, has reached plateau Gym 4 days per week with cardio (treadmill, elliptical) Maybe not enough water Tries to focus on more protein, lower carbs Last 10 Encounter Wt Readings: Date: Wt: 07/21/2023 80.1 kg (176 lb 8 oz) 07/06/2022 81.6 kg (180 lb) 01/15/2022 104.3 kg (230 lb) [facility] Implanted control HM needs: Hepatitis B Vaccine(1 of 3 - 3-dose series) Never done Depression Assessment Never done HPV Testing Never done PAST MEDICAL HISTORY Diagnosis Date GERD (gastroesophageal reflux disease) Prediabetes PAST SURGICAL HISTORY Procedure Laterality Date PT ED BARIATRIC AND METABOLIC gastric sleeve 03/2022 ALLERGIES Patient has no known allergies. MEDICATIONS Omeprazole Magnesium (ACID LABORER CARPENTRY DOCK, OMEPRAZOLE,) 20 mg cpDR Phentermine HCl 37.5 [...] No history of dysuria, frequency or incontinence FIRE MANAGER: Negative for abnormal vaginal bleeding, abnormal [...] and symmetric. Sensation grossly intact. Breast/Pelvic: Per FIRE MANAGER ASSESSMENT/PLAN: 1. Routine adult health maintenance - ICD9: V70.0, ICD10: Z00.00 (primary diagnosis) - Counseled on healthy diet and regular exercise - Calcium intake with supplements or by diet of 1000 mg/day for under 50, 4529-8778 mg/day for 50+ - Discussed need and [...] - HEP B SURF AB Berenice Zepeda APRN.SPORTS THERAPIST ' documented in this encounter [facility] 06-29-2023 Miscellaneous Notes Sent Valtrex 1 gram twice/day for 2 days with one refill. High stress can cause cold sores? How is your stress level? documented in this encounter [facility] 01-15-2022 Instructions Dasha Lujan MD - 01/15/2022 12:05 PM EDT -Get Hgba1c and K level checked in the near future. -Encourage you to lose 2 lbs/week as a healthy way via diet and exercise -Should you have any questions or concerns, do not hesitate to contact me anytime via my chart (Dr.Sunir Lujan) documented in this encounter [facility] 01-15-2022 History of Present illness Narrative Caryl Zamarripa is a 31 year old female who presents with Establish Care -Pt is here to Establish Care. 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 Says all labs checked out fine per pt discussion. Pt says she did get her thyroid lab work checked 4 years ago, and all checked out fine. Thyroid blood work was also checked recently. -OARRS reviewed: clean -Liquor Gallery Operator: deferred seeing one at this time as pt is undergoing gastric sleeve evaluation (Bariatric Surgery) at [facility]. Pt says that she just [...] process to get Bariatric Surgery done at [facility]. (R73.9) Blood glucose elevated Plan: HGB A1C (E87.5) Hyperkalemia Plan: POTASSIUM BLD -Will have her get K level rechecked. (K76.0) Hepatic steatosis -LFT were normal. -Encourage weight reduction and avoid alcohol and tylenol as much as possible. -Will continue to monitor LFT. Dasha Lujan MD documented in this encounter [facility] 01-08-2022 Miscellaneous Notes Will advise on Tuesday when he returns Patient calling stating Dr Lujan agreed to take her into his practice but no documentation found in patient chart. Please advise. documented in this encounter [facility] Evaluation note Diagnosis Preoperative clearance- Primary Preoperative examination, unspecified Obesity (BMI 30-39.9) Obesity, unspecified Blood glucose elevated Other abnormal glucose Hyperkalemia Hyperpotassemia Hepatic steatosis Other chronic nonalcoholic liver disease [facility] noteNo assessment information availableK[facility] Work Phone: Evaluation note* Diagnosis Routine [...] Antibody response examination [facility] Diagnosis Encounter for weight management Overweight (BMI 25.0-29.9) Overweight [facility] Diagnosis Encounter for weight management- Primary Overweight [facility] Diagnosis Rectal bleeding- Primary Hemorrhage of rectum and anus documented in this encounter [facility]* Diagnosis Acute cough- Primary Chest congestion Other symptoms involving respiratory system and chest Bronchitis Bronchitis, not specified as acute or chronic documented in this encounter [facility]* Diagnosis Missed menses , unspecified gestational age Encounter for supervision of normal first in first trimester Nausea and vomiting in Unspecified vomiting of , unspecified as to episode of care documented in this encounter [facility]* Diagnosis 12 weeks gestation of documented in this encounter [facility]* Diagnosis Well woman exam with routine gynecological exam Routine gynecological examination Second trimester state, incidental 17 weeks gestation of Exposure to STD Need for maternal serum alpha-protein (MSAFP) screening Screening, , for anatomic survey Encounter for anatomic survey documented in this encounter [facility]* Diagnosis 21 weeks gestation of Second trimester state, incidental Diabetes mellitus screening Screening for diabetes mellitus documented in this encounter [facility]* Diagnosis Second trimester (HHS-HCC) state, incidental 26 weeks gestation of (HHS-HCC) H/O gastric sleeve documented in this encounter [facility]* Diagnosis Gestational diabetes mellitus (GDM) in second trimester, gestational diabetes method of control unspecified- Primary [facility]* Diagnosis 28 weeks gestation [...] of care documented in this encounter [facility]* Diagnosis 30 weeks [...] [facility] Diagnosis Third trimester (HHS-HCC) [...] care [facility] Diagnosis 37 weeks gestation of [...] unspecified whether serious comorbidity present Berenice Zepeda APRN.SPORTS THERAPIST [address] [place] [address] Referral ID Status Reason Start Date Expiration Date Visits Re quested Visits Authorized [id number] Closed 1 1 Specialty Diagnoses / Procedures Referred By Zachery kenyon Referred To Contact Diagnoses Encounter for weight management Overweight (BMI 25.0-29.9) Berenice Zepeda APRN.SPORTS THERAPIST [address] [place] [address] Referral ID Status Reason Start Date Expiration Date Visits Re quested Visits Authorized [id number] Closed 1 1 Additional Source Comments Source Comments (unrecognize d section and content) In the event this informatio n is protected by the Federal Confidentiality of Alcohol and Drug Abuse Patient Records regulations: The Federal rules restrict any use of the information to criminally investigate or prosecute any alcohol or drug abuse patient.[facility] the event this information is protected by the Federal Confidentiality of Alcohol and Drug Abuse Patient Records regulations: The Federal rules restrict any use of the information to criminally investigate or prosecute any alcohol or drug abuse patient.[facility] the event this information is protected by the Federal Confidentiality of Alcohol and Drug Abuse Patient Records regulations: The Federal rules restrict any use of the information to criminally investigate or prosecute any alcohol or drug abuse patient.[facility] the event this information is protected by the Federal Confidentiality of Alcohol and Drug Abuse Patient Records regulations: The Federal rules restrict any use of the information to criminally investigate or prosecute any alcohol or drug abuse patient.[facility] the event this information is protected by the Federal Confidentiality of Alcohol and Drug Abuse Patient Records regulations: The Federal rules restrict any use of the information to criminally investigate or prosecute any alcohol or drug abuse patient.[facility] the event this information is protected by the Federal Confidentiality of Alcohol and Drug Abuse Patient Records regulations: The Federal rules restrict any use of the information to criminally investigate or prosecute any alcohol or drug abuse patient.[facility] the event this information is protected by the Federal Confidentiality of Alcohol and Drug Abuse Patient Records regulations: The Federal rules restrict any use of the information to criminally investigate or prosecute any alcohol or drug abuse patient.[facility] Reason for Visit (unrecogniz ed [...] Contact General Surgery Diagnoses Rectal bleeding Procedures [place] OFFICE/OUTPATIENT NEW HIGH MDM Sina Jain, DO [address] [place] [address] Phone: tel: fax: Sina Jain, [address] [place] [address] Phone: tel: fax: Referral ID Status Reason Start Date Expiration Date V isits Requested Visits Authorized [id number] Closed Specialty Services Required 07/11/2024 01/07/2025 1 1 Reason Comments Amenorrhea Reason Comments Routine Visit Reason Comments Elevated Glucose Tolerance Test Specialty Diagnoses / Procedures Referred By Contac t Referred To Contact Maternal and Medicine Diagnoses Gestational diabetes mellitus (GDM) in second trimester, gestational diabetes method of control unspecified Roscoe Diaz R, DO [address] [facility] [place] [address] Phone: tel: fax: Maternal- Medicine at [facility] [address] [place] [address] Phone: tel: fax: Referral ID Status Reason Start Date Expiration Date Visits Requested Visits Authorized [id number] Pending Review Specialty Services Required 02/06/2025 02/06/2026 1 1 Reason Comments MED START Reason Comments Med Change Request Care Teams (unrecognized sec tion and content) Knot Bumper Relationship Specialty [place] [address] [place] [address] PCP - General Internal Medicine 01/11/22 Team Status: Inactive Member Role Status Dates Dasha Lujan MD Primary Care Provider Active Reena Breaux APRN TANK TRUCK LOADER-C Attending Provider Activ emelia Team Status: Active Member Role Status Dates Dasha Lujan MD Primary Care Provider Active Knot Bumper Relationship Specialty [place] [address] [place] [address] PCP - General Internal Medicine 01/11/22 Knot Bumper Relationship Specialty [place] [address] [place] [address] PCP - General Internal Medicine 01/11/22 Knot Bumper Relationship Specialty [place] [address] [place] [address] PCP - General Internal Medicine 01/11/22 Knot Bumper Relationship Specialty [place] [address] [place] [address] PCP - General Internal Medicine 01/11/22 Knot Bumper Relationship Specialty [place] [address] [place] [address] PCP - General Internal Medicine 01/11/22 Knot Bumper Relationship Specialty Start Date End Date Unallocated, Chiara Pate MD [facility] [address] [facility] [place] [address] PCP - General Family Medicine 10/17/23 Knot Bumper Relationship Specialty Start Date End Date Unallocated, Chiara Pate MD [facility] [address]UV[address] [facility] [place] [address] PCP - General Family Medicine 10/17/23 Knot Bumper Relationship Specialty Start Date End Date Unallocated, Chiara Pate MD [facility] [address] [facility] [place] [address] PCP - General Family Medicine 10/17/23 Knot Bumper Relationship Specialty Start Date End Date Unallocated, MD [place] [address] PCP - General Family Medicine 10/17/23 Knot Bumper Relationship Specialty Start Date End Date Unallocated, Chiara Pate MD [facility] [address] [facility] [place] [address] PCP - General Family Medicine 10/17/23 Knot Bumper Relationship Specialty Start Date End Date Unallocated, Chiara Pate MD [facility] SARAH EUGENIEEmelia [facility] [place] [address] PCP - General Family Medicine 10/17/23 Edu Alvarez TANK TRUCK LOADER [address] [place] [address] PCP - [employer] 09/22/24 Knot Bumper Relationship Specialty Start Date End Date Unallocated, Chiara Pate MD [address] [place], [place] [address] [address] PCP - General Family Medicine 10/17/23 Edu Alvarez TANK TRUCK LOADER [address] [place] [address] PCP - [employer] 09/22/24 Knot Bumper Relationship Specialty Start Date End Date Unallocated, Chiara Pate MD [facility] [place] [address] PCP - General Family Medicine 10/17/23 Edu Alvarez TANK TRUCK LOADER [address] [place] [address] PCP - [employer] 09/22/24 Knot Bumper Relationship Specialty Start Date End Date Unallocated, Chiara Pate MD [facility] [place] [address] PCP - General Family Medicine 10/17/23 Edu Alvarez, TANK TRUCK LOADER [address] [place] [address] PCP - [employer] 09/22/24 Knot Bumper Relationship Specialty Start Date End Date Unallocated, Chiara Pate MD [address] [place], [place] [address] [address] PCP - General Family Medicine 10/17/23 Edu Alvarez NP [address] [place] [address] PCP - [employer] 09/22/24 Knot Bumper Relationship Specialty Start Date End Date Unallocated, Chiara Pate MD [facility] [place] [address] PCP - General Family Medicine 10/17/23 Edu Alvarez TANK TRUCK LOADER [address] [place] [address] PCP - [employer] 09/22/24 Knot Bumper Relationship Specialty Start Date End Date Unallocated, Chiara Pate MD [address] [place], [place] [address] [address] PCP - General Family Medicine 10/17/23 Edu Alvarez TANK TRUCK LOADER [address] [place] [address] PCP - [employer] 09/22/24 Knot Bumper Relationship Specialty Start Date End Date Unallocated, Chiara Pate MD [address] [place], [place] [address] [address] PCP - General Family Medicine 10/17/23 Edu Alvarez TANK TRUCK LOADER [address] [place] [address] PCP - [employer] 09/22/24 Knot Bumper Relationship Specialty Start Date End Date Unallocated, Chiara Pate MD [address] [place] [address] PCP - General Family Medicine 10/17/23 Edu Alvarez NP [address] [place] [address] PCP - [employer] 09/22/24 Knot Bumper Relationship Specialty Start Date End Date Unallocated, Chiara Pate MD [address] [place] [address] PCP - General Family Medicine 10/17/23 Edu Alvarez TANK TRUCK LOADER [address] [place] [address] PCP - [employer] 09/22/24 Knot Bumper Relationship Specialty Start Date End Date Unallocated, Chiara Pate MD [address] [place] [address] PCP - General Family Medicine 10/17/23 Edu Alvarez NP [address] [place] [address] PCP - [employer] 09/22/24 Knot Bumper Relationship Specialty Start Date End Date Unallocated, Chiara Pate MD [facility] [place] [address] PCP - General Family Medicine 10/17/23 Edu Alvarez, TONIA [address] [place] [address] PCP - [employer] 09/22/24 INFORMATION SOURCE (unrecogn ized section and content) DATE CREATED AUTHOR 01/16/2022 [facility] DATE CREATED AUTHOR AUTHOR'S ORGANIZ ATION 10/18/2022 [facility] DATE CREATED AUTHOR AUTHOR'S ORGANIZ ATION 07/01/2024 [facility] DATE CREATED AUTHOR AUTHOR'S ORGANIZ ATION 05/03/2025 [facility] DATE CREATED AUTHOR AUTHOR'S ORGANIZ ATION 05/03/2025 [facility] dical Specialists EPIC Goals (unrecognized [...] BE BASED ON THE PRIMARY CLINICAL RECORDS. [employer] provides no warranty or guarantee of the accuracy or completeness of information in this document.
[2025-05-14 11:43] VITALS: BP 132/87; PULSE 52; TEMP 36.8; O2SAT 95
--- NOTE | 2025-05-14 11:43 | PC.NURSE ---
Caryl, 7 day old son Grant arrive for follow up. Sig other attends as well. Both parents states things are going well. Mom relates is feeling like she is better rested, first few days at home were chaotic. Baby has settled in to feeding well and sleeping 3 hour stretches at night. Milk in , nipples intact and latching is easy . Baby pretty much does it himself . Caryl with VSS and assessment WNL.. HR 50's, pt states usually runs 50-60's. Incision open to air with steri - strips intact. Lower abdomen, and suprapubic area noted to have edema, more firm right over incision. No redness, drainage or open area's noted with incision. Pt encouraged to schedule incision check with Dr Diaz office. No concerns for self voiced. Grant eating every 2-3 hours, waking on own. Does have 3 hour stretches at night. Nurses 15-20 minutes on first breast and finishes with 10-15 on second breast. No latching issues. VSS and assessment WNL. No concerns noted. Aware to call as needed for questions and aware of MOMS group. Family home without concern.
== END 2025-05-14 11:49 | disposition home or self-care (01) ==
LOC: FBCO 08:14
PROVIDERS: Visit Provider Obstetrics & Gynecology
DX: Z39.1 Encounter for care and examination of lactating mother (principal)